=== PATIENT | female | born 1985 | race Caucasian/White ===

== ENCOUNTER 2023-03-18 18:52 | Outpatient (OUT) | payer OTHER, SELFPAY ==
--- NOTE | 2023-03-18 19:20 | US_ITS ---
The [address] [address] Patient Name: RAPHAEL GAMA MRN: [id number] date: 1985 Sex: F Assigned Patient Location: US Current Patient Location: [place] Accession/Order Number: [id number] Exam Date: 03/18/2023 19:21 Report Date: 03/18/2023 22:48 At the request of: BEVERLY SAHA Procedure: US pelvis transvaginal EXAM: US pelvis transvaginal HISTORY: MENORRHAGIA WITH IRREGULAR CYCLE N92.1 COMPARISON: None. TECHNIQUE: Pelvic ultrasound performed using standard technique including Doppler interrogation FINDINGS: Uterus measures 7.8 x 3.2 x 3.3 cm. 6 mm endometrium. Both ovaries are normal in size and echotexture and vascularity. 1.7 cm simple ovarian cyst or dominant follicle on the left. US/US pelvis transvaginal IMPRESSION: Physiologic appearance of the pelvis Electronically authenticated by: GILL SERNA Date: 03/18/2023 22:48
== END 2023-03-18 18:53 | disposition home or self-care (01) ==
PROVIDERS: Visit Provider Obstetrics & Gynecology
DX: N92.1 Excessive and frequent menstruation with irregular cycle (principal)
CPT/HCPCS: 76830

== ENCOUNTER 2023-03-19 11:05 | Outpatient (OUT) | payer OTHER, SELFPAY ==
[2023-03-19 11:26] LABS: Eosinophils Absolute Auto 0.1 10^3/uL (0.0-0.7); Eosinophils Percent Auto 2.3 % (0.9-7.0); Hematocrit 37.2 % (36.0-48.0); Hemoglobin 12.2 g/dL (12.0-16.0); Lymphocytes Absolute Auto 1.7 10^3/uL (1.2-3.8); Lymphocytes Percent Auto 41.8 % (20.5-60.0); Mean Corpuscular HGB Conc 32.8 g/dL (29.9-35.2); Mean Corpuscular Hemoglobin 31.9 pg (26.7-34.0); Mean Corpuscular Volume 97.1 fL (81.0-99.0); Mean Platelet Volume 9.4 fL (9.5-13.5); Monocytes Absolute Auto 0.3 10^3/uL (0.3-0.8); Monocytes Percent Auto 7.1 % (1.7-12.0); Neutrophils Absolute Auto 1.9 10^3/uL (1.4-6.5); Neutrophils Percent Auto 47.8 % (43.0-75.0); Platelet Count 187 10^3/uL (150-450); Red Blood Count 3.83 10^6/uL (4.20-5.40); Red Cell Distribution Width 11.9 % (11.0-15.0)
[2023-03-19 11:58] LABS: Estimated Average Glucose 91 mg/dL; Glycohemoglobin A1C 4.8 % (4.5-6.2)
[2023-03-19 12:22] LABS: Free T4 1.02 ng/dL (0.76-1.46)
[2023-03-20 04:07] LABS: FSH 4.8 mIU/mL (.); Luteinizing Hormone(LH) 6.9 mIU/mL (.)
[2023-03-22 13:07] LABS: Anti-Mullerian Hormone (AMH) 0.178 ng/mL (.)
== END 2023-03-19 11:06 | disposition home or self-care (01) ==
LOC: LAB 11:06
PROVIDERS: PCP Family Medicine; Visit Provider Obstetrics & Gynecology
DX: N92.1 Excessive and frequent menstruation with irregular cycle (principal)
CPT/HCPCS: 36415; 82397; 82627; 83001; 83002; 83036; 84439; 84443; 85025

== ENCOUNTER 2023-04-21 20:08 | Outpatient (REF) | payer OTHER, SELFPAY ==
[2023-04-25 12:09] LABS: Age Gdln ACOG Testing Note (.); HPV Aptima Negative (Negative); IGP, Aptima HPV, rfx 16/18,45 Note (.)
== END 2023-04-21 20:09 | disposition home or self-care (01) ==
LOC: LAB 20:08
PROVIDERS: PCP Family Medicine; Visit Provider Obstetrics & Gynecology
DX: Z01.419 Encounter for gynecological examination (general) (routine) without abnormal findings (principal)
CPT/HCPCS: 87624; G0145

== ENCOUNTER 2023-10-05 15:54 | Outpatient (OUT) | payer OTHER, SELFPAY ==
--- OUTSIDE RECORDS SUMMARY | 2023-10-05 16:35 | XMS_ITS | CCD ---
Author Organization [facility] Care Team Providers Care Er Manager Name Role Phone DOREEN, DR HOFFMAN Attending Unavailable DARWIN, DR JEN Ramirez Primary Care Unavailable DOREEN, DR HOFFMAN Admitting Unavailable DOREEN, DR HOFFMAN Consulting Unavailable MARIA A, DR PAUL Admitting Unavailable MARIA A, DR PAUL Consulting Unavailable MARIA A, DR PAUL Attending Unavailable DARWIN, DR JEN Ramirez Primary Care Unavailable Problems Problem Classification Problem Date Documented Date Episodic/Chronic Immunizations and screening for infectious disease (1 source) Encounter for screening for human papillomavirus (HPV); Translations: [ENC SCREENING HUMAN PAPILLOMAVIRUS] Onset: 03-08-2022 Episodic Other screening for suspected conditions (not mental disorders or infectious disease) (4 sources) Encounter for screening for malignant neoplasm of cervix; Translations: [ENC SCREENING MALIG NEOPLASM CERV] Onset: 03-03-2022 Episodic Results Test Name Value Interpretation Reference Range Facil ity PAP ACOG PANEL 2: 30 to 65on 03-11-2022 . . Normal [facility] Comment on above: Result Comment: Perf ormed at: WB Performed By: #### [id number] #### [facility] [address] [address] [address] Danni Jacobs Age Gdln ACOG Testing 30-65 Normal [facility] Comment on above: Performed By: #### [id number] #### [facility] [address] [address] [address] Danni Jacobs DIAGNOSIS: Comment Normal [facility] Comment on above: Result Comment: NEGA TIVE FOR INTRAEPITHELIAL LESION OR MALIGNANCY. THIS SPECIMEN WAS RESCREENED PART OF OUR HOSIERY OPERATOR PROGRAM. Performed at: WB Performed By: #### [id number] #### [facility] [address] [address] [address] Danni Jacobs HPV Aptima Negative Normal Negative [facility] Comment on above: Result Comment: This nucleic acid amplification test detects fourteen high-risk HPV types (16,18,31,33,35,39,45,51,52,56,58,59,66,68) without differentiation. Performed at: =G Performed By: #### [id number] #### [facility] [address] [place] [address] Dr. Danni Jacobs Methodology: Comment Normal [facility] Comment on above: Result Comment: This liquid based ThinPrep(R) pap test was screened with the use of an image guided system. Performed at: WB Performed By: #### [id number] #### [facility] [address] [place] [address] Dr. Danni Jacobs Note: Comment Normal [facility] Comment on above: Result Comment: The Pap smear is a screening test designed to aid in the detection of premalignant and malignant conditions of the uterine cervix. It is not a diagnostic procedure and should not be used as the sole means of detecting cervical cancer. Both false-positive and false-negative reports do occur. . Performed at: WB Performed By: #### [id number] #### [facility] [address] [place] [address] Dr. Danni Jacobs Performed by: Comment Normal [facility] Comment on above: Result Comment: Rocky Hull, Dimmer Board Operator (ASCP) Performed at: WB Performed By: #### [id number] #### [facility] [address] [place] [address] Dr. Danni Jacobs QC reviewed by: Comment Normal [facility] Comment on above: Result Comment: Betzaida Ge, Supervisory Dimmer Board Operator (ASCP) Performed at: WB Performed By: #### 4 [id number] #### [facility] [address] [place] [address] Dr. Danni Jacobs Specimen adequacy: Comment Normal [facility] Comment on above: Result Comment: Sati sfactory for evaluation. Endocervical and/or squamous metaplastic cells (endocervical component) are present. Performed at: WB Performed By: #### 4 [id number] #### [facility] [address] [place] [address] Dr. Danni Jacobs GLUCOSE BLOODon 04-22-2021 Glucose [Mass/Vol] 99 mg/dL Normal 74-106 [facility] Comment on above: Performed By: #### G YOSEPH, LIPID #### [facility] [address] [address] [address] Danni Jacobs LIPID PROFILEon 04-22-2021 CHOL-HDL RATIO NORM SEE BELOW Normal [facility] Comment on above: Result Comment: 3.3 - 4.4 LOW RISK 4.4 - 7.1 AVERAGE RISK 7.1 - 11.0 MODERATE RISK >11.0 HIGH RISK Performed By: #### G YOSEPH, LIPID #### [facility] [address] [address] [address] Danni Jacobs Cholesterol [Mass/Vol] 157 mg/dL Normal <=200 [facility] Comment on above: Performed By: #### G YOSEPH, LIPID #### [facility] [address] [address] [address] Danni Jacobs Cholesterol in HDL [Mass/Vol] 74 mg/dL Normal [facility] Comment on above: Performed By: #### G YOSEPH, LIPID #### [facility] [address] [address] [address] Danni Jacobs Cholesterol in LDL [Mass/Vol] 71.2 mg/dL Normal [facility] Comment on above: Performed By: #### G YOSEPH, LIPID #### [facility] [address] [address] [address] Danni Jacobs Cholesterol.total/C holesterol in HDL [Mass ratio] 2.1 {ratio} Normal [facility] Comment on above: Performed By: #### G YOSEPH, LIPID #### [facility] [address] [address] [address] Danni Jacobs HDL NORMAL > or = 60 mg/dl - LO W CARDIOVASCULAR RISK <40 mg/dl - HIGH CARDIOVASCULAR RISK Normal [facility] Comment on above: Performed By: #### G YOSEPH, LIPID #### [facility] [address] [address] [address] Danni Jacobs LDL CALC NORMAL SEE BELOW Normal [facility] Comment on above: Result Comment: <100 mg/dl OPTIMAL 100 - 129 mg/dl NEAR OR ABOVE OPTIMAL 130 - 159 mg/dl BORDERLINE HIGH 160 - 189 mg/dl HIGH >190 mg/dl VERY HIGH Performed By: #### G YOSEPH, LIPID #### [facility] [address] [address] [address] Danni Jacobs Triglyceride [Mass/Vol] 59 mg/dL Normal <=150 [facility] Comment on above: Performed By: #### G YOSEPH, LIPID #### [facility] [address] [place], [place] [address] Dr. Danni Jacobs VLDL CALC 11.8 mg/dL Normal [facility] Comment on above: Performed By: #### G YOSEPH, LIPID #### [facility] [address] [address] [address] Danni Jacobs Encounters Encounter Date Encounter Type Care Provider Facility Start: 03-03-2022 End: 03-03-[address] BEVERLY SAHA Facility:[facility] Start: 04-28-2021 Encounter for genera l adult medical examination without abnormal findings DR DALTON LOGAN [facility] Start: 04-22-2021 End: 04-23-[address] DALTON LOGAN Facility:[facility] Start: 04-22-2021 End: 04-23-2021 Encounter for general adult medical examination without abnormal findings DR DALTON LOGAN Facility:[facility] Payers Date Payer Category Payer Unknown [id number] 1985 Unknown [id number] 1957 Unknown [id number] Summary Purpose Family History No Family History Records Found Advance Directives No Advanced Directives Records Found Additional Source Comments INFORMATION SOURCE (unrecogn ized section and content) DATE CREATED AUTHOR 03/22/2022 [facility] FOR RECORDS PERTAINING TO PATIENTS WHO ARE OR HAVE BEEN ENROLLED IN A CHEMICAL DEPENDENCY/SUBSTANCEABUSE PROGRAM, SOME INFORMATION MAY BE OMITTED. This clinical summary was aggregated from multiple sources. Caution should be exercised in using it in the provision of clinical care. This summary normalizes information from multiple sources, and as a consequence, information in this document may materially change the coding, format and clinical context of patient data. In addition, data may be omitted in some cases. CLINICAL DECISIONS SHOULD BE BASED ON THE PRIMARY CLINICAL RECORDS. [facility]. provides no warranty or guarantee of the accuracy or completeness of information in this document.
[2023-10-05 17:15] LABS: HCG Quantitative 25633 mIU/mL
== END 2023-10-05 15:55 | disposition home or self-care (01) ==
LOC: LAB 15:54
PROVIDERS: PCP Family Medicine; Visit Provider Obstetrics & Gynecology
DX: O46.90 Antepartum hemorrhage, unspecified, unspecified trimester (principal)
CPT/HCPCS: 36415; 84702

== ENCOUNTER 2023-10-07 16:06 | Outpatient (OUT) | payer OTHER, SELFPAY ==
[2023-10-07 17:00] LABS: HCG Quantitative 35422 mIU/mL
== END 2023-10-07 16:07 | disposition home or self-care (01) ==
LOC: LAB 16:06
PROVIDERS: PCP Family Medicine; Visit Provider Obstetrics & Gynecology
DX: O46.90 Antepartum hemorrhage, unspecified, unspecified trimester (principal); Z3A.00 Weeks of gestation of pregnancy not specified
CPT/HCPCS: 36415; 84702

== ENCOUNTER 2023-10-12 09:56 | Outpatient (OUT) | payer OTHER, SELFPAY ==
--- OUTSIDE RECORDS SUMMARY | 2023-10-12 10:12 | XMS_ITS | CCD ---
Author Organization [facility] Care Team Providers Care Tank Builder Name Role Phone DOREEN, DR HOFFMAN Attending Unavailable DARWIN, DR JEN Ramirez Primary Care Unavailable DOREEN, DR HOFFMAN Admitting Unavailable DOREEN, DR HOFFMAN Consulting Unavailable MARIA A, DR PAUL Admitting Unavailable MARIA A, DR PAUL Consulting Unavailable MARIA A, DR PAUL Attending Unavailable DARWIN, DR JEN aRmirez Primary Care Unavailable Problems Problem Classification Problem [...] 30 to 65on 03-11-2022 . . Normal [facility] Comment on above: Result Comment: Perf ormed at: WB Performed By: #### 4 [id number] #### [facility] [address] [address] [address] Danni Jacobs Age Gdln ACOG Testing 30-65 Normal [facility] Comment on above: Performed By: #### 4 [id number] #### [facility] [address] [address] [address] Danni Jacobs DIAGNOSIS: Comment Normal [facility] Comment on above: Result Comment: NEGA TIVE FOR INTRAEPITHELIAL LESION OR MALIGNANCY. THIS SPECIMEN WAS RESCREENED PART OF OUR HAIR MIXER PROGRAM. Performed at: WB Performed By: #### 4 [id number] #### [facility] [address] [address] [address] Danni Jacobs HPV Aptima Negative Normal Negative [facility] Comment on above: Result Comment: This nucleic acid amplification test detects fourteen high-risk HPV types (16,18,31,33,35,39,45,51,52,56,58,59,66,68) without differentiation. Performed at: =G Performed By: #### 4 [id number] #### [facility] [address] [place] [address] Dr. Danni Jacobs Methodology: Comment Normal [facility] Comment on above: Result Comment: This liquid based ThinPrep(R) pap test was screened with the use of an image guided system. Performed at: WB Performed By: #### 4 [id number] #### [facility] [address] [place] [address] Dr. Danni Jacobs Note: Comment Normal [facility] Comment on above: Result Comment: The Pap smear is a screening test designed to aid in the detection of premalignant and malignant conditions of the uterine cervix. It is not a diagnostic procedure and should not be used as the sole means of detecting cervical cancer. Both false-positive and false-negative reports do occur. . Performed at: WB Performed By: #### 4 [id number] #### [facility] [address] [place] [address] Dr. Danni Jacobs Performed by: Comment Normal [facility] Comment on above: Result Comment: Rocky Hull, Ticket Chopper Assembler (ASCP) Performed at: WB Performed By: #### 4 [id number] #### [facility] [address] [place] [address] Dr. Danni Jacobs QC reviewed by: Comment Normal [facility] Comment on above: Result Comment: Betzaida Ge, Supervisory Ticket Chopper Assembler (ASCP) Performed at: WB Performed By: #### 4 [id number] #### [facility] [address] [place] [address] Dr. Danni Jacobs Specimen adequacy: Comment Normal [facility] Comment on above: Result Comment: Sati sfactory for evaluation. Endocervical and/or squamous metaplastic cells (endocervical component) are present. Performed at: WB Performed By: #### 4 [id number] #### [facility] [address] [place] [address] Dr. Danni Jacobs GLUCOSE BLOODon 04-22-2021 Glucose [Mass/Vol] 99 mg/dL Normal 74-106 [facility] Comment on above: Performed By: #### G YOSEPH, LIPID #### [facility] [address] [address] [address] Danni Jacobs LIPID PROFILEon 04-22-2021 CHOL-HDL RATIO NORM SEE BELOW Normal [facility] Comment on above: Result Comment: 3.3 - 4.4 LOW RISK 4.4 - 7.1 AVERAGE RISK 7.1 - 11.0 MODERATE RISK >11.0 HIGH RISK Performed By: #### G YOSEPH, LIPID #### [facility] [address] [address] [address] Danni Jacobs Cholesterol [Mass/Vol] 157 mg/dL Normal <=200 [facility] Comment on above: Performed By: #### G YOSEPH, LIPID #### [facility] [address] [address] [address] Danni Jacobs Cholesterol in HDL [Mass/Vol] 74 mg/dL Normal [facility] Comment on above: Performed By: #### G YOSEPH, LIPID #### [facility] [address] [address] [address] Danni Jacobs Cholesterol in LDL [Mass/Vol] 71.2 mg/dL Normal [facility] Comment on above: Performed By: #### G YOSEPH, LIPID #### [facility] [address] [address] [address] Danni Jacobs Cholesterol.total/C holesterol in HDL [Mass ratio] 2.1 {ratio} Normal [facility] Comment on above: Performed By: #### G YOSEPH, LIPID #### [facility] [address] [address] [address] Danni Jacobs HDL NORMAL > or = 60 mg/dl - LO W CARDIOVASCULAR RISK <40 mg/dl - HIGH CARDIOVASCULAR RISK Normal [facility] Comment on above: Performed By: #### G YOSEPH, LIPID #### [facility] [address] [address] [address] Danni Jacobs LDL CALC NORMAL SEE BELOW Normal [facility] Comment on above: Result Comment: <100 mg/dl OPTIMAL 100 - 129 mg/dl NEAR OR ABOVE OPTIMAL 130 - 159 mg/dl BORDERLINE HIGH 160 - 189 mg/dl HIGH >190 mg/dl VERY HIGH Performed By: #### G YOSEPH, LIPID #### [facility] [address] [address] [address] Danni Jacobs Triglyceride [Mass/Vol] 59 mg/dL Normal <=150 [facility] Comment on above: Performed By: #### G YOSEPH, LIPID #### [facility] [address] [place], [place] [address] Dr. Danni Jacobs VLDL CALC 11.8 mg/dL Normal [facility] Comment on above: Performed By: #### G YOSEPH, LIPID #### [facility] [address] [address] [address] Danni Jacobs Encounters Encounter Date Encounter Type Care Provider Facility Start: 03-03-2022 End: 03-03-[address] BEVERLY SAHA Facility:[facility] Start: 04-28-2021 Encounter for genera l adult medical examination without abnormal findings DR DALTON LOGAN [facility] Start: 04-22-2021 End: 04-23-[address] DALTON LOGAN Facility:[facility] Start: 04-22-2021 End: 04-23-2021 Encounter for general adult medical examination without abnormal findings DR DALTON LOGAN Facility:[facility] Payers Date Payer Category Payer Unknown [id number] [id number] 1985 Unknown [id number] [id number] [id number] 1957 Unknown [id number] Summary Purpose Family History No Family History Records Found Advance Directives No Advanced Directives Records Found Additional Source Comments INFORMATION SOURCE (unrecogn ized section and content) DATE CREATED AUTHOR 03/22/2022 [facility] FOR RECORDS PERTAINING TO PATIENTS WHO ARE [...] BE BASED ON THE PRIMARY CLINICAL RECORDS. [facility]. provides no warranty or guarantee of the accuracy or completeness of information in this document.
--- NOTE | 2023-10-12 11:33 | US_ITS ---
[address] [address] Patient Name: RAPHAEL GAMA MRN: [id number] date: 1985 Sex: F Assigned Patient Location: [facility] Current Patient Location: [facility] Accession/Order Number: [id number] Exam Date: 10/12/2023 11:33 Report Date: 10/12/2023 12:16 At the request of: BEVERLY SAHA Procedure: US OB transvaginal EXAMINATION: US OB transvaginal HISTORY: BLEEDING IN EARLY COMPARISON: No relevant comparison available. FINDINGS: Transvaginal images The gestational sac is mildly elongated measuring 2.06 cm, 6 weeks 4 days CRL: 7.2 mm, 6 weeks 4 days Round area measuring 8.9 mm is seen. This could represent an enlarged yolk sac, alternatively this could represent a nonviable twin intrauterine gestation. Short interval follow-up is recommended Heart rate: 118 beats minute Cervix: Closed, 4.3 cm The uterus is normal in appearance. The ovaries are normal in appearance Clinical age: 8 weeks 3 days Clinical ADRIANA: 05/20/2024 Ultrasound age: 6 weeks 4 days Ultrasound ADRIANA: 06/02/2024 US/US OB transvaginal IMPRESSION: Viable intrauterine gestation measuring 6 weeks 4 days Indeterminate abnormality possibly representing a dilated yolk sac versus a nonviable twin intrauterine gestation. Short interval follow-up recommended Electronically authenticated by: TIKA KIMBALL Date: 10/12/2023 12:16
== END 2023-10-12 09:57 | disposition home or self-care (01) ==
LOC: NOMS 09:57
PROVIDERS: PCP Family Medicine; Visit Provider Obstetrics & Gynecology
DX: O20.9 Hemorrhage in early pregnancy, unspecified (principal)
CPT/HCPCS: 76817

== ENCOUNTER 2023-10-12 15:02 | Outpatient (OUT) | payer OTHER, SELFPAY ==
[2023-10-12 16:11] LABS: HCG Quantitative 43222 mIU/mL
== END 2023-10-12 15:03 | disposition home or self-care (01) ==
LOC: LAB 15:02
PROVIDERS: PCP Family Medicine; Visit Provider Obstetrics & Gynecology
DX: O20.9 Hemorrhage in early pregnancy, unspecified (principal)
CPT/HCPCS: 36415; 76817; 84702

== ENCOUNTER 2023-10-22 13:53 | Outpatient (OUT) | payer OTHER, SELFPAY ==
--- NOTE | 2023-10-22 13:55 | US_ITS ---
[address] [address] Patient Name: RAPHAEL GAMA MRN: [id number] date: 1985 Sex: F Assigned Patient Location: [facility] Current Patient Location: [facility] Accession/Order Number: [id number] Exam Date: 10/22/2023 13:56 Report Date: 10/22/2023 14:59 At the request of: BEVERLY SAHA Procedure: US OB transvaginal EXAMINATION: US OB transvaginal HISTORY: MISSED MENSES COMPARISON: 10/12/2023 FINDINGS: Transvaginal images [place] intrauterine gestation Gestational sac: 2.79 cm, 7 weeks 4 days [place]-rump length: 7.6 mm, 6 weeks 5 days Heart rate: Not observed Cervix: Dilation of the endocervical canal 8 mm containing debris. The cervix measures 3.6 cm in length The uterus is normal, anteverted, anteflexed The ovaries are normal. Clinical age: 9 weeks 6 days Clinical ADRIANA: 05/20/2024 Ultrasound age: 6 weeks 5 days Ultrasound ADRIANA: 06/11/2024 US/US OB transvaginal IMPRESSION: No interval growth of the crown-rump length. No cardiac activity. Dilated debris-filled endocervical canal These findings are consistent with miscarriage in progress Electronically authenticated by: TIKA KIMBALL Date: 10/22/2023 14:59
== END 2023-10-22 13:54 | disposition home or self-care (01) ==
LOC: NOMS 13:53
PROVIDERS: PCP Family Medicine; Visit Provider Obstetrics & Gynecology
DX: O20.0 Threatened abortion (principal); Z3A.01 Less than 8 weeks gestation of pregnancy
CPT/HCPCS: 76817

== ENCOUNTER 2023-10-23 09:43 | Day surgery (SDC) | payer OTHER, SELFPAY ==
[2023-10-23] VITALS (7 sets, daily range): BP systolic 103–118; BP diastolic 58–73; PULSE 59–82; TEMP 36.6–36.8; O2SAT 96–100; BMI 20.1
--- OUTSIDE RECORDS SUMMARY | 2023-10-23 09:59 | XMS_ITS | CCD ---
Author Organization [facility] Care Team Providers Care Gravure Press Operator Name Role Phone DOREEN, DR HOFFMAN Attending [...] 30 to 67on 03-11-2022 . . Normal [facility] Comment on above: Result Comment: Perf ormed at: WB Performed By: #### [id number] #### [facility] [address] [address] [address] Danni Jacobs Age Gdln ACOG Testing 30-65 Normal [facility] Comment on above: Performed By: #### [id number] #### [facility] [address] [address] [address] Danni Jacobs DIAGNOSIS: Comment Normal [facility] Comment on above: Result Comment: NEGA TIVE FOR INTRAEPITHELIAL LESION OR MALIGNANCY. THIS SPECIMEN WAS RESCREENED PART OF OUR INTERCHANGE AGENT PROGRAM. Performed at: WB Performed By: #### [id number] #### [facility] [address] [address] [address] Danni Jacobs HPV Aptima Negative Normal Negative [facility] Comment on above: Result Comment: This nucleic acid amplification test detects fourteen high-risk HPV types (16,18,31,33,35,39,45,51,52,56,58,59,66,68) without differentiation. Performed at: =G Performed By: #### [id number] #### [facility] [address] [place] [address] Dr. Danni Jacobs Methodology: Comment Normal [facility] Comment on above: Result Comment: This liquid based ThinPrep(R) pap test was screened with the use of an image guided system. Performed at: WB Performed By: #### [id number] #### [facility] [address] [place] [address] Dr. Danni Jacobs Note: Comment Normal [facility] Comment on above: Result Comment: The Pap smear is a screening test designed to aid in the detection of premalignant and malignant conditions of the uterine cervix. It is not a diagnostic procedure and should not be used as the sole means of detecting cervical cancer. Both false-positive and false-negative reports do occur. . Performed at: WB Performed By: #### [id number] #### [facility] [address] [place] [address] Dr. Danni Jacobs Performed by: Comment Normal [facility] Comment on above: Result Comment: Rocky Hull, Photograph Tinter (ASCP) Performed at: WB Performed By: #### [id number] #### [facility] [address] [place] [address] Dr. Danni Jacobs QC reviewed by: Comment Normal [facility] Comment on above: Result Comment: Betzaida Ge, Supervisory Photograph Tinter (ASCP) Performed at: WB Performed By: #### [id number] #### [facility] [address] [place] [address] Dr. Danni Jacobs Specimen adequacy: Comment Normal [facility] Comment on above: Result Comment: Sati sfactory for evaluation. Endocervical and/or squamous metaplastic cells (endocervical component) are present. Performed at: WB Performed By: #### [id number] #### [facility] [address] [place] [address] Dr. Danni Jacobs GLUCOSE BLOODon 04-22-2021 Glucose [Mass/Vol] 99 mg/dL Normal 74-106 [facility] Comment on above: Performed By: #### G YOSEPH, LIPID #### [facility] [address] [address] [address] Danni Jacobs LIPID PROFILEon 04-22-2021 CHOL-HDL RATIO NORM SEE BELOW Normal [facility] Comment on above: Result Comment: 3.3 - 4.4 LOW RISK 4.4 - 7.1 AVERAGE RISK 7.1 - 11.0 MODERATE RISK >11.0 HIGH RISK Performed By: #### G YOSEPH, LIPID #### [facility] [address] [address] [address] Danni Jacobs Cholesterol [Mass/Vol] 157 mg/dL Normal <=200 [facility] Comment on above: Performed By: #### G YOSEPH, LIPID #### [facility] [address] [address] [address] Danni Jacobs Cholesterol in HDL [Mass/Vol] 74 mg/dL Normal [facility] Comment on above: Performed By: #### G YOSEPH, LIPID #### [facility] [address] [address] [address] Danni Jacobs Cholesterol in LDL [Mass/Vol] 71.2 mg/dL Normal [facility] Comment on above: Performed By: #### G YOSEPH, LIPID #### [facility] [address] [address] [address] Danni Jacobs Cholesterol.total/C holesterol in HDL [Mass ratio] 2.1 {ratio} Normal [facility] Comment on above: Performed By: #### G YOSEHP, LIPID #### [facility] [address] [address] [address] Danni Jacobs HDL NORMAL > or = 60 mg/dl - LO W CARDIOVASCULAR RISK <40 mg/dl - HIGH CARDIOVASCULAR RISK Normal [facility] Comment on above: Performed By: #### G YOSEPH, LIPID #### [facility] [address] [address] [address] Danni Jacobs LDL CALC NORMAL SEE BELOW Normal [facility] Comment on above: Result Comment: <100 mg/dl OPTIMAL 100 - 129 mg/dl NEAR OR ABOVE OPTIMAL 130 - 159 mg/dl BORDERLINE HIGH 160 - 189 mg/dl HIGH >190 mg/dl VERY HIGH Performed By: #### G YOSEPH, LIPID #### [facility] [address] [address] [address] Danni Jacobs Triglyceride [Mass/Vol] 59 mg/dL Normal <=150 [facility] Comment on above: Performed By: #### G YOSEPH, LIPID #### [facility] [address] [place], [place] [address] Dr. Danni Jacobs VLDL CALC 11.8 mg/dL Normal [facility] Comment on above: Performed By: #### G YOSEPH, LIPID #### [facility] [address] [address] [address] Danni Jacobs Encounters Encounter Date Encounter Type Care Provider Facility Start: 03-03-2022 End: 03-03-[address] BEVERLY SAHA Facility:[facility] Start: 04-28-2021 Encounter for genera l adult medical examination without abnormal findings DR DALTON LOGAN [facility] Start: 04-22-2021 End: 04-23-[address] DALTON LOGAN Facility:[facility] Start: 04-22-2021 End: 04-23-2021 Encounter for general adult medical examination without abnormal findings DR DALTON LOGAN Facility:[facility] Payers Date Payer Category Payer Unknown [id number] 1987 Unknown [id number] 1957 Unknown [id number] Summary Purpose Family History No Family History Records Found Advance Directives No Advanced Directives Records Found Additional Source Comments INFORMATION SOURCE (unrecogn ized section and content) DATE CREATED AUTHOR 03/22/2022 [facility] FOR RECORDS PERTAINING TO PATIENTS WHO [...] BE BASED ON THE PRIMARY CLINICAL RECORDS. [facility]. provides no warranty or guarantee of the accuracy or completeness of information in this document.
[2023-10-23 10:03] LABS: Basophils Percent Auto 0.8 % (0.2-2.0); Eosinophils Absolute Auto 0.1 10^3/uL (0.0-0.7); Eosinophils Percent Auto 1.4 % (0.9-7.0); Hemoglobin 11.8 g/dL (12.0-16.0); Immature Granulocytes Abs Auto 0.01 10^3/uL (0.00-0.03); Immature Granulocytes Pct Auto 0.2 % (0.0-0.5); Lymphocytes Absolute Auto 1.7 10^3/uL (1.2-3.8); Lymphocytes Percent Auto 32.8 % (20.5-60.0); Mean Corpuscular HGB Conc 32.8 g/dL (29.9-35.2); Mean Corpuscular Hemoglobin 31.1 pg (26.7-34.0); Monocytes Absolute Auto 0.3 10^3/uL (0.3-0.8); Monocytes Percent Auto 5.5 % (1.7-12.0); Neutrophils Percent Auto 59.3 % (43.0-75.0); Platelet Count 182 10^3/uL (150-450); Red Blood Count 3.79 10^6/uL (4.20-5.40); Red Cell Distribution Width 11.9 % (11.0-15.0); White Blood Count 5.1 10^3/uL (4.0-11.0)
[2023-10-23] MEDS: LACTATED RINGER'S SOLUTION 1,000 ML 50 ML IV (10:27)
--- NOTE | 2023-10-23 11:54 | P.ON_ITS ---
Brief Operative Note Date of procedure: 10/23/23 Pre-op diagnosis general: missed Post-op diagnosis: same as pre-op Procedure: NAME OF PROCEDURE: [D&C suction ] PROCEDURE: The patient was taken back to the OR where she was given general anesthesia without difficulty. She was then placed in dorsal lithotomy position, prepped and draped in the normal sterile fashion. A weighted speculum was placed in the patient's vagina and the anterior lip of the cervix was identified and grasped with a single-tooth tenaculum. The patient was then gently dilated using Hegar dilators after we had sounded roughly to 10 cm. The suction curette was then tested. The suction curette was then placed in the patient's uterus and products of conception were removed using an 9-Bel[place]ian suction curette. ?Excellent hemostasis was noted. The patient tolerated the procedure well. Sponge, lap, and needle counts were correct x 2. All instruments were then removed from the patient's vagina. The patient was taken to the Recovery Room in stable condition . ?? Anesthesia: GETA Surgeon: Scooby Vega Estimated blood loss (mL): 10 Pathology: other (poc) Condition: stable Disposition: PACU Urinary Catheter Management Urinary Catheter Management Urethral: Cath placed during this visit: no
[2023-10-23] MEDS: RHO(D) IMMUNE GLOBULIN 1,500 UNIT SYRINGE 1500 UNIT IM (12:27)
[2023-10-23] MEDS: LACTATED RINGER'S SOLUTION 1,000 ML 150 ML IV (13:07)
--- NOTE | 2023-10-23 14:24 | PC.NURSE ---
1355: pt voids without difficulty,ambulates with minimal assistance to and from bathroom.
== END 2023-10-23 14:05 | disposition home or self-care (01) ==
PROVIDERS: PCP Family Medicine; Visit Provider Obstetrics & Gynecology
PROC: (CPT 1965; principal; 2023-10-23 11:10)
DX: O02.1 Missed abortion (principal)
CPT/HCPCS: 59820; 36415; 85025; 86850; 86900; 86901; 88305; J1094; J2704; J2790

== ENCOUNTER 2023-11-09 11:41 | Outpatient (OUT) | payer OTHER, SELFPAY ==
[2023-11-09 12:55] LABS: HCG Quantitative 27 mIU/mL
== END 2023-11-09 11:42 | disposition home or self-care (01) ==
LOC: LAB 11:42
PROVIDERS: PCP Family Medicine; Visit Provider Physician Assistant
DX: Z98.890 Other specified postprocedural states (principal)
CPT/HCPCS: 36415; 84702

== ENCOUNTER 2023-11-17 09:44 | Outpatient (RCR) | payer OTHER, SELFPAY ==
[2023-11-17 10:54] LABS: HCG Quantitative 6 mIU/mL
== END 2023-11-20 08:47 | disposition home or self-care (01) ==
LOC: LAB 09:44
PROVIDERS: PCP Family Medicine; Visit Provider Physician Assistant
DX: Z98.890 Other specified postprocedural states (principal)
CPT/HCPCS: 36415; 84702

== ENCOUNTER 2023-11-23 16:21 | Outpatient (OUT) | payer OTHER, SELFPAY ==
--- OUTSIDE RECORDS SUMMARY | 2023-11-23 17:01 | XMS_ITS | CCD ---
Author Organization [facility] Inform ion 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 Name Role Phone DOREEN, DR HOFFMAN Attending Unavailable DARWIN, DR JOANN Ramirez Primary Care Unavailable DOREEN, DR HOFFMAN Admitting Unavailable DOREEN, DR HOFFMAN Consulting Unavailable GRAY, DR PAUL Admitting Unavailable GARY, DR PAUL Consulting Unavailable GARY, DR PAUL Attending Unavailable DARWIN, DR JOANN Ramirez Primary Care Unavailable Beverly Vega Attending Unavailable Beverly Vega Admitting Unavailable Beverly Vega Attending Provider JASBIR HUNTER Attending Unavailable Allergies Allergy Classification Reported Allergen(s) Allergy Type Date of Onset Reaction(s) Facility (1 source) Amoxicillin Drug Allergy 06-22-2022 [facility] (1 source) 12 Hour Decongestant Allergy to substance 06-22-2022 [facility] Problems Problem Classification Problem Date Documented Date [...] Name Value Interpretation Reference Range Facil ity Basophils Auto (Bld) [#/Vol] on 10-23-2023 Basophils (Bld) [#/Vol] 0.0 10 3/uL 0.0-0.1 [facility] Basophils/100 WBC Auto (Bld) on 10-23-2023 Basophils/100 WBC (Bld) 0.8 % 0.2-2.0 [facility] Eosinophils/100 WBC Auto (Bl d)on 10-23-2023 Eosinophils/100 WBC (Bld) 1.4 % 0.9-7.0 [facility] Erythrocyte distribution wid th Auto (RBC) [Ratio]on 10-23-2023 Erythrocyte distribution width (RBC) [Ratio] 11.9 % 11.0-15.0 [facility] Hematocrit Auto (Bld) [Volum e fraction]on 10-23-2023 Hematocrit (Bld) [Volume fraction] 36.0 % 36.0-48.0 [facility] Hemoglobin [Mass/volume] in Bloodon 10-23-2023 Hemoglobin (Bld) [Mass/Vol] 11.8 g/dL 12.0-16.0 [facility] Krzysztof 10-23-2023 L Specimen: [id number] Received: 10/26/23 Status: MAIA Newell Num: [id number] Spec Type: Surgical Subm Dr: Beverly Vega Tissues: A Products of Conception - Spontaneous or Missed (POC) Procedures: HE/3, Gross/Micro L4 Age/ Patient Sex Location Account Attending Physician Tiffanie Elizabeth 37/F [facility] [id number] Beverly Vega SPEC NUM: [id number] RECD: 10/26/23 STATUS: MAIA NEWELL NUM: [id number] JANIE: 10/23/[address]: Beverly Vega ENTERED: 10/26/23 [facility] DR: Héctor,Lab SPEC TYPE: Surgical DEPT: [facility] ORDERED: HE/3, Gross/Micro L4 ORDERED: HE/3, Gross/Micro L4 Pathological Diagnosis Products of conception: Immature chorionic villi and decidua, consistent with products of conception. Gross Description Received in formalin, labeled with the patient's name, date of and products of conception are multiple membranous palmer tissue fragments, blood clot and mucinous material within a cloth neck collection device measuring in aggregate 5.1 x 4.8 x 1.7 cm. No parts are present. There is a 1.0 x 0.8 x 0.3 cm possible area of villous tissue identified. Cnc Manager sections to include the possible villous tissue are submitted in A1?A3. Clinical history: Missed CPT Codes 49083 ---- ---- Specimen: [id number] Received: 10/26/23 Status: RINAShayy Newell Num: [id number] Spec Type: Surgical Subm Dr: Beverly Vega Tissues: A Products of Conception - Spontaneous or Missed (POC) Procedures: Zander SINGLETON/Dannie L4 ---- Patient: Tiffanie Elizabeth [id number] (Continued) ---- Signed (signature on file) Dante Palacios MD 10/27/23 1066 Normal [facility] - Hematology and Cell countson 10-23-2023 Immature granulocytes/100 WBC (Bld) 0.2 % 0.0-0.5 [facility] Leukocytes [#/volume] correc leroy for nucleated erythrocytes in Blood by Automated counon 10-23-2023 WBC corrected for nucl RBC Auto (Bld) [#/Vol] 5.1 10 3/uL 4.0-11.0 [facility] Lymphocytes Auto (Bld) [#/Vo l]on 10-23-2023 Lymphocytes (Bld) [#/Vol] 1.7 10 3/uL 1.2-3.8 [facility] Lymphocytes/100 WBC Auto (Bl d)on 10-23-2023 Lymphocytes/100 WBC (Bld) 32.8 % 20.5-60.0 [facility] MCH Auto (RBC) [Entitic mass ]on 10-23-2023 MCH (RBC) [Entitic mass] 31.1 pg 26.7-34.0 [facility] MCHC Auto (RBC) [Mass/Vol]on 10-23-2023 MCHC (RBC) [Mass/Vol] 32.8 g/dL 29.9-35.2 [facility] MCV Auto (RBC) [Entitic vol] on 10-23-2023 MCV (RBC) [Entitic vol] 95.0 fL 81.0-99.0 [facility] Monocytes Auto (Bld) [#/Vol] on 10-23-2023 Monocytes (Bld) [#/Vol] 0.3 10 3/uL 0.3-0.8 [facility] Monocytes/100 WBC Auto (Bld) on 10-23-2023 Monocytes/100 WBC (Bld) 5.5 % 1.7-12.0 [facility] Neutrophils Auto (Bld) [#/Vo l]on 10-23-2023 Neutrophils (Bld) [#/Vol] 3.0 10 3/uL 1.4-6.5 [facility] Neutrophils/100 WBC Auto (Bl d)on 10-23-2023 Neutrophils/100 WBC (Bld) 59.3 % 43.0-75.0 [facility] No Panel Informationon 10-22 Eosinophils # (Auto) 0.1 10 3/uL 0.0-0.7 [facility] Immature Granulocyte # (Auto) 0.01 10 3/uL 0.00-0.03 [facility] Platelet mean volume Auto (B ld) [Entitic vol]on 10-23-2023 Platelet mean volume (Bld) [Entitic vol] 9.0 fL 9.5-13.5 [facility] Platelets Auto (Bld) [#/Vol] on 10-23-2023 Platelets (Bld) [#/Vol] 182 10 3/uL 150-450 [facility] RBC Auto (Bld) [#/Vol]on RBC (Bld) [#/Vol] 3.79 10 6/uL 4.20-5.40 [facility] No Panel Informationon 10-11 Human Chorionic Gonadotropin, Quant 91875 mIU/mL [facility] Comment on above: 5-50 0.2-1 RXDO96-84 0 1-2 ZSWDO077-5,000 2-3 WPFMU723-16,000 3-4 WEEKS1,000-50,000 4-5 WEEKS10,000-100,000 5-6 WEEKS15,000-200,000 6-8 WEEKS10,000-100,000 2-3 MONTHS No Panel Informationon 10-06 Human Chorionic Gonadotropin, Quant 45690 mIU/mL [facility] Comment on above: 5-50 0.2-1 SMNX50-65 0 1-2 TPFBM273-6,000 2-3 HEUCP875-41,000 3-4 WEEKS1,000-50,000 4-5 WEEKS10,000-100,000 5-6 WEEKS15,000-200,000 6-8 WEEKS10,000-100,000 2-3 MONTHS No Panel Informationon 10-04 Human Chorionic Gonadotropin, Quant 32082 mIU/mL [facility] Comment on above: 5-50 0.2-1 AHLI40-06 0 1-2 DPUZL340-5,000 2-3 GROTE357-59,000 3-4 WEEKS1,000-50,000 4-5 WEEKS10,000-100,000 5-6 WEEKS15,000-200,000 6-8 WEEKS10,000-100,000 2-3 MONTHS PAP ACOG PANEL 2: 30 to 65on 03-11-2022 . . Normal [facility] Comment on above: Result Comment: Perf ormed at: WB Performed By: #### [id number] #### [facility] [address] [place] [address] Dr. Danni Jacobs Age Gdln ACOG Testing 30-65 Normal [facility] Comment on above: Performed By: #### [id number] #### [facility] [address] [place] [address] Dr. Danni Jacobs DIAGNOSIS: Comment Normal [facility] Comment on above: Result Comment: NEGA TIVE FOR INTRAEPITHELIAL LESION OR MALIGNANCY. THIS SPECIMEN WAS RESCREENED PART OF OUR PROOFER APPRENTICE PROGRAM. Performed at: WB Performed By: #### [id number] #### [facility] [address] [place] [address] Dr. Danni Jacobs HPV Aptima Negative Normal Negative [facility] Comment on above: Result Comment: This nucleic acid amplification test detects fourteen high-risk HPV types (16,18,31,33,35,39,45,51,52,56,58,59,66,68) without differentiation. Performed at: =G Performed By: #### [id number] #### [facility] [address] [place] [address] Dr. Danni Jacobs Methodology: Comment Normal [facility] Comment on above: Result Comment: This liquid based ThinPrep(R) pap test was screened with the use of an image guided system. Performed at: WB Performed By: #### [id number] #### [facility] [address] [place] [address] Dr. Danni Jacobs Note: Comment Normal [facility] Comment on above: Result Comment: The Pap smear is a screening test designed to aid in the detection of premalignant and malignant conditions of the uterine cervix. It is not a diagnostic procedure and should not be used as the sole means of detecting cervical cancer. Both false-positive and false-negative reports do occur. . Performed at: WB Performed By: #### [id number] #### [facility] [address] [place] [address] Dr. Danni Jacobs Performed by: Comment Normal [facility] Comment on above: Result Comment: Rocky Hull, Electric Serviceman (ASCP) Performed at: WB Performed By: #### [id number] #### [facility] [address] [address] [address] Danni Jacobs QC reviewed by: Comment Normal [facility] Comment on above: Result Comment: Betzaida Ge, Supervisory Electric Serviceman (ASCP) Performed at: WB Performed By: #### [id number] #### [facility] [address] [address] [address] Danni Jacobs Specimen adequacy: Comment Normal [facility] Comment on above: Result Comment: Sati sfactory for evaluation. Endocervical and/or squamous metaplastic cells (endocervical component) are present. Performed at: WB Performed By: #### [id number] #### [facility] [address] [address] [address] Danni Jacobs GLUCOSE BLOODon 04-22-2021 Glucose [Mass/Vol] 99 mg/dL Normal 74-106 [facility] Comment on above: Performed By: #### G YOSEPH, LIPID #### [facility] [address] [address] [address] Danni Jacobs LIPID PROFILEon 04-22-2021 CHOL-HDL RATIO NORM SEE BELOW Normal [facility] Comment on above: Result Comment: 3.3 - 4.4 LOW RISK 4.4 - 7.1 AVERAGE RISK 7.1 - 11.0 MODERATE RISK >11.0 HIGH RISK Performed By: #### G YOSEPH, LIPID #### [facility] [address] [address] [address] Danni Jacobs Cholesterol [Mass/Vol] 157 mg/dL Normal <=200 [facility] Comment on above: Performed By: #### G YOSEPH, LIPID #### [facility] [address] [address] [address] Danni Jacobs Cholesterol in HDL [Mass/Vol] 74 mg/dL Normal [facility] Comment on above: Performed By: #### G YOSEPH, LIPID #### [facility] [address] [address] [address] Danni Jacobs Cholesterol in LDL [Mass/Vol] 71.2 mg/dL Normal [facility] Comment on above: Performed By: #### G YOSEPH, LIPID #### [facility] [address] [address] [address] Danni Jacobs Cholesterol.total/C holesterol in HDL [Mass ratio] 2.1 {ratio} Normal [facility] Comment on above: Performed By: #### G YOSEPH, LIPID #### [facility] [address] [address] [address] Danni Jacobs HDL NORMAL > or = 60 mg/dl - LO W CARDIOVASCULAR RISK <40 mg/dl - HIGH CARDIOVASCULAR RISK Normal [facility] Comment on above: Performed By: #### G YOSEPH, LIPID #### [facility] [address] [address] [address] Danni Jacobs LDL CALC NORMAL SEE BELOW Normal [facility] Comment on above: Result Comment: <100 mg/dl OPTIMAL 100 - 129 mg/dl NEAR OR ABOVE OPTIMAL 130 - 159 mg/dl BORDERLINE HIGH 160 - 189 mg/dl HIGH >190 mg/dl VERY HIGH Performed By: #### G YOSEPH, LIPID #### [facility] [address] [address] [address] Danni Jacobs Triglyceride [Mass/Vol] 59 mg/dL Normal <=150 [facility] Comment on above: Performed By: #### G YOSEPH, LIPID #### [facility] [address] [address] [address] Danni Jacobs VLDL CALC 11.8 mg/dL Normal [facility] Comment on above: Performed By: #### G YOSEPH, LIPID #### [facility] [address] [address] [address] Danni Jacobs Encounters Encounter Date Encounter Type Care Provider Facility Start: 11-09-2023 End: 11-09-2023 ambulatory JASBIR HUNTER Not Available Start: 10-23-2023 End: 10-23-2023 ambulatory Beverly Vega Facility:[facility] Start: 10-23-2023 End: 10-23-2023 ambulatory Beverly Gary Work Phone: [facility] Work Phone: Start: 10-23-2023 End: 10-23-2023 Departed Referred Beverly Gary Work Phone: [facility] Start: 10-23-2023 Non-patient / Non-visit Beverly Gary Work Phone: [facility] Work Phone: Start: 10-12-2023 Non-patient / Non-visit Beverly Gary Work Phone: [facility] Work Phone: Start: 10-07-2023 Non-patient / Non-visit Beverly Gary Work Phone: [facility] Work Phone: Start: 10-05-2023 Non-patient / Non-visit Beverly Gary Work Phone: [facility] Work Phone: Start: 03-03-2022 End: 03-03-[address] BEVERLY VEGA Facility:[facility] Start: 04-28-2021 Encounter for genera l adult medical examination without abnormal findings DR DALTON LOGAN [facility] Start: 04-22-2021 End: 04-23-[address] DALTON LOGAN Facility:[facility] Start: 04-22-2021 End: 04-23-2021 Encounter for general adult medical examination without abnormal findings DR DALTON LOGAN Facility:[facility] Payers Date Payer Category Payer Unknown [id number] 1987 Unknown [id number] 1987 Unknown [id number] 1959 Unknown [id number] Social History Date Type Detail Facility Tobacco smoking stat us NHIS Unknown if ever smoked [facility] Work Phone: Start: 1985 Sex Assigned At Female F [facility] Evaluation note Note Date & Type Note Facility Evaluation note No assessment information availa ble [facility] Work Phone: Summary Purpose Family History No Family History Records FoundNo Family History Records FoundNo Family History Records Found Advance Directives No Advanced Directives Records FoundNo Advanced Directives Records FoundNo Advanced Directives Records Found Additional Source Comments INFORMATION SOURCE (unrecogn ized section and content) DATE CREATED AUTHOR 03/22/2022 [facility] DATE CREATED AUTHOR AUTHOR'S ORGANIZ ATION 10/28/2023 [facility] DATE CREATED AUTHOR AUTHOR'S ORGANIZ ATION 11/11/2023 [facility] EPIC Care Teams (unrecognized sec tion and content) Team Status: Active Member Role Status Dates Provider Conversion Primary Care Provider Active Start: October 05, 2023 Joann Dumont MD Attending Provider Active St art: October 05, 2023 Team Status: Active Member Role Status Dates Provider Conversion Primary Care Provider Active Start: October 07, 2023 Joann Dumont MD Attending Provider Active St art: October 07, 2023 Team Status: Active Member Role Status Dates Provider Conversion Primary Care Provider Active Start: October 12, 2023 Joann Dumont MD Attending Provider Active St art: October 12, 2023 Team Status: Active Member Role Status Dates Provider Conversion Primary Care Provider Active Start: October 23, 2023 Beverly Vega Attending Provider Active Start: Ashish drake 2023 Team Status: Inactive Member Role Status Dates Beverly Vega Attending Provider Active Start: Ashish drake 2023 End: October 23, 2023 Goals (unrecognized section and content) Goals may be documented in a n alternate section FOR RECORDS PERTAINING TO PATIENTS WHO ARE [...] BE BASED ON THE PRIMARY CLINICAL RECORDS. [facility]. provides no warranty or guarantee of the accuracy or completeness of information in this document.
[2023-11-23 17:50] LABS: HCG Quantitative 3 mIU/mL
== END 2023-11-23 16:22 | disposition home or self-care (01) ==
PROVIDERS: PCP Family Medicine; Visit Provider Physician Assistant
DX: Z98.890 Other specified postprocedural states (principal)
CPT/HCPCS: 36415; 84702

== ENCOUNTER 2023-11-30 12:23 | Outpatient (OUT) | payer OTHER, SELFPAY ==
--- OUTSIDE RECORDS SUMMARY | 2023-11-30 12:47 | XMS_ITS | CCD ---
Author Organization [facility] Inform ion [facility] Care Team Providers Care Mail Handler Equipment Operator Name Role Phone DOREEN, DR HOFFMAN Attending Unavailable DARWIN, DR JOANN Ramirez Primary Care Unavailable DOREEN, DR HOFFMAN Admitting Unavailable DOREEN, DR HOFFMAN Consulting Unavailable GARY, DR PAUL Admitting Unavailable GARY, DR PAUL Consulting Unavailable GARY, DR PAUL Attending Unavailable DARWIN, DR JOANN Ramirez Primary Care Unavailable Beverly Vega Attending Unavailable Beverly Vega Admitting Unavailable Beverly Vega Attending Provider [phone] JASBIR HUNTER Attending Unavailable Allergies Allergy Classification Reported Allergen(s) Allergy Type Date of Onset Reaction(s) Facility (1 source) Amoxicillin Drug Allergy 06-22-2022 [facility] (1 source) 12 Hour Decongestant Allergy to substance 06-22-2022 [facility] Problems Problem Classification Problem Date Documented Date [...] Basophils (Bld) [#/Vol] 0.0 10 3/uL 0.0-0.1 [facility] Basophils/100 WBC Auto (Bld) on 10-23-2023 Basophils/100 WBC (Bld) 0.8 % 0.2-2.0 [facility] Eosinophils/100 WBC Auto (Bl d)on 10-23-2023 Eosinophils/100 WBC (Bld) 1.4 % 0.9-7.0 [facility] Erythrocyte distribution wid th Auto (RBC) [Ratio]on 10-23-2023 Erythrocyte distribution width (RBC) [Ratio] 11.9 % 11.0-15.0 [facility] Hematocrit Auto (Bld) [Volum e fraction]on 10-23-2023 Hematocrit (Bld) [Volume fraction] 36.0 % 36.0-48.0 [facility] Hemoglobin [Mass/volume] in Bloodon 10-23-2023 Hemoglobin (Bld) [Mass/Vol] 11.8 g/dL 12.0-16.0 [facility] Krzysztof 10-23-2023 L Specimen: [id number] Received: 10/26/23 Status: MAIA Newell Num: [id number] Spec Type: Surgical Subm Dr: Beverly Vega Tissues: A Products of Conception - Spontaneous or Missed (POC) Procedures: HE/3, Gross/Micro L4 Age/ Patient Sex Location Account Attending Physician Tiffanie Elizabeth 37/F LABELL [id number] Beverly Vega SPEC NUM: [id number] RECD: 10/26/23 STATUS: MAIA NEWELL NUM: [id number] JANIE: 10/23/[address]: Beverly Vega ENTERED: 10/26/[address] [facility] [address]: Héctor,Lab SPEC TYPE: Surgical DEPT: POOJA [...] cm possible area of villous tissue identified. Special Needs Librarian sections to include the possible villous tissue are submitted in A1?A3. Clinical history: Missed CPT Codes 08265 ---- ---- Specimen: [id number] Received: 10/26/23 Status: RINAShayy Newell Num: [id number] Spec Type: Surgical Subm Dr: Beverly Vega Tissues: A Products of Conception - Spontaneous or Missed (POC) Procedures: Zander SINGLETON/Dannie L4 ---- Patient: Tiffanie Elizabeth [id number] (Continued) ---- Signed (signature on file) Dante Palacios MD 10/27/23 0901 Normal [facility] - Hematology and Cell countson 10-23-2023 Immature granulocytes/100 WBC (Bld) 0.2 % 0.0-0.5 [facility] Leukocytes [#/volume] correc leroy for nucleated erythrocytes in Blood by Automated counon 10-23-2023 WBC corrected for nucl RBC Auto (Bld) [#/Vol] 5.1 10 3/uL 4.0-11.0 [facility] Lymphocytes Auto (Bld) [#/Vo l]on 10-23-2023 Lymphocytes (Bld) [#/Vol] 1.7 10 3/uL 1.2-3.8 [facility] Lymphocytes/100 WBC Auto (Bl d)on 10-23-2023 Lymphocytes/100 WBC (Bld) 32.8 % 20.5-60.0 [facility] MCH Auto (RBC) [Entitic mass ]on 10-23-2023 MCH (RBC) [Entitic mass] 31.1 pg 26.7-34.0 [facility] MCHC Auto (RBC) [Mass/Vol]on 10-23-2023 MCHC (RBC) [Mass/Vol] 32.8 g/dL 29.9-35.2 [facility] MCV Auto (RBC) [Entitic vol] on 10-23-2023 MCV (RBC) [Entitic vol] 95.0 fL 81.0-99.0 [facility] Monocytes Auto (Bld) [#/Vol] on 10-23-2023 Monocytes (Bld) [#/Vol] 0.3 10 3/uL 0.3-0.8 [facility] Monocytes/100 WBC Auto (Bld) on 10-23-2023 Monocytes/100 WBC (Bld) 5.5 % 1.7-12.0 [facility] Neutrophils Auto (Bld) [#/Vo l]on 10-23-2023 Neutrophils (Bld) [#/Vol] 3.0 10 3/uL 1.4-6.5 [facility] Neutrophils/100 WBC Auto (Bl d)on 10-23-2023 Neutrophils/100 WBC (Bld) 59.3 % 43.0-75.0 [facility] No Panel Informationon 10-22 Eosinophils # (Auto) 0.1 10 3/uL 0.0-0.7 [facility] Immature Granulocyte # (Auto) 0.01 10 3/uL 0.00-0.03 [facility] Platelet mean volume Auto (B ld) [Entitic vol]on 10-23-2023 Platelet mean volume (Bld) [Entitic vol] 9.0 fL 9.5-13.5 [facility] Platelets Auto (Bld) [#/Vol] on 10-23-2023 Platelets (Bld) [#/Vol] 182 10 3/uL 150-450 [facility] RBC Auto (Bld) [#/Vol]on RBC (Bld) [#/Vol] 3.79 10 6/uL 4.20-5.40 [facility] No Panel Informationon 10-11 Human Chorionic Gonadotropin, Quant 08888 mIU/mL [facility] Comment on above: 5-50 0.2-1 EKTR99-16 0 1-2 AEBCW265-6,000 2-3 KEDOL351-15,000 3-4 WEEKS1,000-50,000 4-5 WEEKS10,000-100,000 5-6 WEEKS15,000-200,000 6-8 WEEKS10,000-100,000 2-3 MONTHS No Panel Informationon 10-06 Human Chorionic Gonadotropin, Quant 20037 mIU/mL [facility] Comment on above: 5-50 0.2-1 RFYA16-53 0 1-2 RIFBB486-0,000 2-3 ZHRIK585-97,000 3-4 WEEKS1,000-50,000 4-5 WEEKS10,000-100,000 5-6 WEEKS15,000-200,000 6-8 WEEKS10,000-100,000 2-3 MONTHS No Panel Informationon 10-04 Human Chorionic Gonadotropin, Quant 55561 mIU/mL [facility] Comment on above: 5-50 0.2-1 SDGO11-98 0 1-2 SJUQJ215-0,000 2-3 UWXMO205-37,000 3-4 WEEKS1,000-50,000 4-5 WEEKS10,000-100,000 5-6 WEEKS15,000-200,000 6-8 WEEKS10,000-100,000 2-3 MONTHS PAP ACOG PANEL 2: 30 to 65on 03-11-2022 . . Normal [facility] Comment on above: Result Comment: Perf ormed at: WB Performed By: #### [id number] #### [facility] [address] [place] [address] Dr. Danni Jacobs Age Gdln ACOG Testing 30-65 Normal [facility] Comment on above: Performed By: #### [id number] #### [facility] [address] [place] [address] Dr. Danni Jacobs DIAGNOSIS: Comment Normal [facility] Comment on above: Result Comment: NEGA TIVE FOR INTRAEPITHELIAL LESION OR MALIGNANCY. THIS SPECIMEN WAS RESCREENED PART OF OUR [employer] PROGRAM. Performed at: WB Performed By: #### [id number] #### [facility] [address] [place] [address] Dr. Danni Jacobs HPV Aptima Negative Normal Negative [facility] Comment on above: Result Comment: This nucleic acid amplification test detects fourteen high-risk HPV types (16,18,31,33,35,39,45,51,52,56,58,59,66,68) without differentiation. Performed at: =G Performed By: #### [id number] #### [facility] [address] [place] [address] Dr. Dnani Jacobs Methodology: Comment Normal [facility] Comment on above: Result Comment: This liquid based ThinPrep(R) pap test was screened with the use of an image guided system. Performed at: WB Performed By: #### [id number] #### [facility] [address] [place] [address] Dr. Danni Jacobs Note: Comment Normal [facility] Comment on above: Result Comment: The Pap smear is a screening test designed to aid in the detection of premalignant and malignant conditions of the uterine cervix. It is not a diagnostic procedure and should not be used as the sole means of detecting cervical cancer. Both false-positive and false-negative reports do occur. . Performed at: WB Performed By: #### [id number] #### [facility] [address] [place] [address] Dr. Danni Jacobs Performed by: Comment Normal [facility] Comment on above: Result Comment: Rocky Hull, Manager Of Radiology (ASCP) Performed at: WB Performed By: #### [id number] #### [facility] [address] [address] [address] Danni Jacobs QC reviewed by: Comment Normal [facility] Comment on above: Result Comment: Betzaida Ge, Supervisory Manager Of Radiology (ASCP) Performed at: WB Performed By: #### [id number] #### [facility] [address] [address] [address] Danni Jacobs Specimen adequacy: Comment Normal [facility] Comment on above: Result Comment: Sati sfactory for evaluation. Endocervical and/or squamous metaplastic cells (endocervical component) are present. Performed at: WB Performed By: #### [id number] #### [facility] [address] [address] [address] Danni Jacobs GLUCOSE BLOODon 04-22-2021 Glucose [Mass/Vol] 99 mg/dL Normal 74-106 [facility] Comment on above: Performed By: #### G YOSEPH, LIPID #### [facility] [address] [address] [address] Danni Jacobs LIPID PROFILEon 04-22-2021 CHOL-HDL RATIO NORM SEE BELOW Normal [facility] Comment on above: Result Comment: 3.3 - 4.4 LOW RISK 4.4 - 7.1 AVERAGE RISK 7.1 - 11.0 MODERATE RISK >11.0 HIGH RISK Performed By: #### G YOSEPH, LIPID #### [facility] [address] [address] [address] Danni Jacobs Cholesterol [Mass/Vol] 157 mg/dL Normal <=200 [facility] Comment on above: Performed By: #### G YOSEPH, LIPID #### [facility] [address] [address] [address] Danni Jacobs Cholesterol in HDL [Mass/Vol] 74 mg/dL Normal [facility] Comment on above: Performed By: #### G YOSEPH, LIPID #### [facility] [address] [address] [address] Danni Jacobs Cholesterol in LDL [Mass/Vol] 71.2 mg/dL Normal [facility] Comment on above: Performed By: #### G YOSEPH, LIPID #### [facility] [address] [address] [address] Danni Jacobs Cholesterol.total/C holesterol in HDL [Mass ratio] 2.1 {ratio} Normal [facility] Comment on above: Performed By: #### G YOSEPH, LIPID #### [facility] [address] [address] [address] Danni Jacobs HDL NORMAL > or = 60 mg/dl - LO W CARDIOVASCULAR RISK <40 mg/dl - HIGH CARDIOVASCULAR RISK Normal [facility] Comment on above: Performed By: #### G YOSEPH, LIPID #### [facility] [address] [address] [address] Danni Jacobs LDL CALC NORMAL SEE BELOW Normal [facility] Comment on above: Result Comment: <100 mg/dl OPTIMAL 100 - 129 mg/dl NEAR OR ABOVE OPTIMAL 130 - 159 mg/dl BORDERLINE HIGH 160 - 189 mg/dl HIGH >190 mg/dl VERY HIGH Performed By: #### G YOSEPH, LIPID #### [facility] [address] [address] [address] Danni Jacobs Triglyceride [Mass/Vol] 59 mg/dL Normal <=150 [facility] Comment on above: Performed By: #### G YOSEPH, LIPID #### [facility] [address] [address] [address] Danni Jacobs VLDL CALC 11.8 mg/dL Normal [facility] Comment on above: Performed By: #### G YOSEPH, LIPID #### [facility] [address] [address] [address] Danni Jacobs Encounters Encounter Date Encounter Type Care Provider Facility Start: 11-09-2023 End: 11-09-2023 ambulatory JASBIR HUNTER Not Available Start: 10-23-2023 End: 10-23-2023 ambulatory Beverly Vega Facility:[facility] Start: 10-23-2023 End: 10-23-2023 ambulatory Beverly Gary Work Phone: [facility] Work Phone: Start: 10-23-2023 End: 10-23-2023 Departed Referred Beverly Gary Work Phone: [facility] Start: 10-23-2023 Non-patient / Non-visit Beverly Gary Work Phone: [facility] Work Phone: Start: 10-12-2023 Non-patient / Non-visit Beverly Gary Work Phone: [facility] Work Phone: Start: 10-07-2023 Non-patient / Non-visit Beverly Gary Work Phone: [facility] Work Phone: Start: 10-05-2023 Non-patient / Non-visit Beverly Gary Work Phone: [facility] Work Phone: Start: 03-03-2022 End: 03-03-[address] BEVERLY VEGA Facility:[facility] Start: 04-28-2021 Encounter for genera l adult medical examination without abnormal findings DR DALTON LOGAN [facility] Start: 04-22-2021 End: 04-23-[address] DALTON LOGAN Facility:[facility] Start: 04-22-2021 End: 04-23-2021 Encounter for general adult medical examination without abnormal findings DR DALTON LOGAN Facility:[facility] Payers Date Payer Category Payer Unknown [id number] 1985 Unknown [id number] 1985 Unknown [id number] 1959 Unknown [id number] Social History Date Type Detail Facility Tobacco smoking stat us NHIS Unknown if ever smoked [facility] Work Phone: Start: 1985 Sex Assigned At Female F [facility] Evaluation note Note Date & Type Note Facility Evaluation note No assessment information availa ble [facility] Work Phone: Summary Purpose Family History No Family History Records FoundNo Family History Records FoundNo Family History Records Found Advance Directives No Advanced Directives Records FoundNo Advanced Directives Records FoundNo Advanced Directives Records Found Additional Source Comments INFORMATION SOURCE (unrecogn ized section and content) DATE CREATED AUTHOR 03/22/2022 [facility] DATE CREATED AUTHOR AUTHOR'S ORGANIZ ATION 10/28/2023 [facility] DATE CREATED AUTHOR AUTHOR'S ORGANIZ ATION 11/11/2023 [facility] d[facility] Specialists [employer] Care Teams (unrecognized sec [...] BE BASED ON THE PRIMARY CLINICAL RECORDS. [facility] [employer] [facility]. provides no warranty or guarantee of the accuracy or completeness of information in this document.
[2023-11-30 14:13] LABS: HCG Quantitative 2 mIU/mL
== END 2023-11-30 12:24 | disposition home or self-care (01) ==
LOC: LAB 12:24
PROVIDERS: PCP Family Medicine; Visit Provider Obstetrics & Gynecology
DX: Z98.890 Other specified postprocedural states (principal)
CPT/HCPCS: 36415; 84702

== ENCOUNTER 2023-12-01 16:34 | Outpatient (OUT) | payer OTHER, SELFPAY ==
--- NOTE | 2023-12-01 16:38 | XR_ITS ---
The [address] [address] Patient Name: RAPHAEL GAMA MRN: [id number] date: 1985 Sex: F Assigned Patient Location: [facility] Current Patient Location: Accession/Order Number: [id number] Exam Date: 12/01/2023 17:06 Report Date: 12/02/2023 07:31 At the request of: JEN GRANADOS Procedure: XR hip LT 2V w/ pelvis PROCEDURE: XR hip LT 2V w/ pelvis COMPARISON: None. HISTORY: Pain in left hip M25.552 FINDINGS: BONES:No fracture, acute abnormality, or significant arthropathy. SOFT TISSUES:Negative. No visible soft tissue swelling. EFFUSION:None visible. OTHER: Negative. XR/XR hip LT 2V w/ pelvis IMPRESSION: No acute radiographic abnormality Electronically authenticated by: TIKA KIMBALL Date: 12/02/2023 07:31
--- OUTSIDE RECORDS SUMMARY | 2023-12-01 16:38 | XMS_ITS ---
Patient Summarization (C-CDA 2.1 CCD) Created on: December 01, 2023 TIFFANIE ELIZABETH : 1985 Sex: Female Author Organization Sample organization Care Team Providers Care Customer Support Consultant Name Role Phone DOREEN, DR HOFFMAN Attending Unavailable DARWIN, DR JOANN Ramirez Primary Care Unavailable DOREEN, DR HOFFMAN Admitting Unavailable DOREEN, DR HOFFMAN Consulting Unavailable GARY, DR PAUL Admitting Unavailable GARY, DR PAUL Consulting Unavailable GARY, DR PAUL Attending Unavailable DARWIN, DR JOANN Ramirez Primary Care Unavailable Gary, Beverly Attending Unavailable Gary, Beverly Admitting Unavailable Beverly Vega Attending Provider JASBIR HUNTER Attending Unavailable Allergies Allergy Classification Reported Allergen(s) Allergy Type Date of Onset Reaction(s) Facility (1 source) Amoxicillin Drug Allergy 06-22-2022 [facility] (1 source) 12 Hour Decongestant Allergy to substance 06-22-2022 [facility] Encounters Encounter Date Encounter Type Care Provider Facility Start: 11-09-2023 End: 11-09-2023 ambulatory JASBIR HUNTER Not Available Start: 10-23-2023 End: 10-23-2023 ambulatory Beverly Gary Facility:[facility] Start: 10-23-2023 End: 10-23-2023 ambulatory Beverly Gary Work Phone: [facility] Work Phone: Start: 10-23-2023 End: 10-23-2023 Departed Referred Beverly Gary Work Phone: [facility] Start: 10-23-2023 Non-patient / Non-visit Beverly Gary [facility] Phone[facility] Work Phone: Start: 10-12-2023 Non-patient / Non-visit Beverlyvidal Vega Work Phone: [facility] Work Phone: Start: 10-07-2023 Non-patient / Non-visit Beverly Vega Work Phone: [facility] Work Phone: Start: 10-05-2023 Non-patient / Non-visit Beverly Vega Work Phone: [facility] Work Phone: Start: 03-03-2022 End: 03-03-[address] BEVERLY VEGA Facility:[facility] Start: 04-28-2021 Encounter for genera l adult medical examination without abnormal findings DR DALTON LOGAN [facility] Start: 04-22-2021 End: 04-23-[address] DALTON LOGAN Facility:[facility] Start: 04-22-2021 End: 04-23-2021 Encounter for general adult medical examination without abnormal findings DR DALTON LOGAN Facility:[facility] Payers Date Payer Category Payer Unknown [id number] [id number] [id number] 1985 Unknown [id number] 1985 Unknown [id number] [id number] 1957 Unknown [id number] Problems Problem Classification Problem Date Documented Date [...] [#/Vol] 0.0 10 3/uL 0.0-0.1 [facility] Basophils/100 WBC Auto (Bld) on 10-23-2023 Basophils/100 WBC (Bld) 0.8 % 0.2-2.0 [facility] Eosinophils/100 WBC Auto (Bl d)on 10-23-2023 Eosinophils/100 WBC (Bld) 1.4 % 0.9-7.0 [facility] Erythrocyte distribution wid th Auto (RBC) [Ratio]on 10-23-2023 Erythrocyte distribution width (RBC) [Ratio] 11.9 % 11.0-15.0 [facility] Hematocrit Auto (Bld) [Volum e fraction]on 10-23-2023 Hematocrit (Bld) [Volume fraction] 36.0 % 36.0-48.0 [facility] Hemoglobin [Mass/volume] in Bloodon 10-23-2023 Hemoglobin (Bld) [Mass/Vol] 11.8 g/dL 12.0-16.0 [facility] Krzysztof 10-23-2023 L Specimen: [id number] Received: 10/26/23 Status: MAIA Newell Num: [id number] Spec Type: Surgical Subm Dr: Beverly Vega Tissues: A Products of Conception - Spontaneous or Missed (POC) Procedures: HE/3, Gross/Micro L4 Age/ Patient Sex Location Account Attending Physician Tiffanie Elizabeth 37/F LABE[facility] [id number] Beverly Vega SPEC NUM: [id number] RECD: 10/26/23 STATUS: MAIA NEWELL NUM: [id number] JANIE: 10/23/[address]: Beverly Vega ENTERED: 10/26/[address]: Héctor,Lab SPEC TYPE: Surgical DEPT: POOJA [...] cm possible area of villous tissue identified. Shackler sections to include the possible villous tissue are submitted in A1?A3. Clinical history: Missed CPT Codes 87810 ---- ---- Specimen: [id number] Received: 10/26/23 Status: MAIA Newell Num: [id number] Spec Type: Surgical Subm Dr: Beverly Vega Tissues: A Products of Conception - Spontaneous or Missed (POC) Procedures: HE/3, Gross/Micro L4 ---- Patient: Tiffanie Elizabeth [id number] (Continued) ---- Signed (signature on file) Dante Palacios MD 10/27/23 1511 Normal [facility] - Hematology and Cell countson 10-23-2023 Immature granulocytes/100 WBC (Bld) 0.2 % 0.0-0.5 [facility] Leukocytes [#/volume] correc leroy for nucleated erythrocytes in Blood by Automated counon 10-23-2023 WBC corrected for nucl RBC Auto (Bld) [#/Vol] 5.1 10 3/uL 4.0-11.0 [facility] Lymphocytes Auto (Bld) [#/Vo l]on 10-23-2023 Lymphocytes (Bld) [#/Vol] 1.7 10 3/uL 1.2-3.8 [facility] Lymphocytes/100 WBC Auto (Bl d)on 10-23-2023 Lymphocytes/100 WBC (Bld) 32.8 % 20.5-60.0 [facility] MCH Auto (RBC) [Entitic mass ]on 10-23-2023 MCH (RBC) [Entitic mass] 31.1 pg 26.7-34.0 [facility] MCHC Auto (RBC) [Mass/Vol]on 10-23-2023 MCHC (RBC) [Mass/Vol] 32.8 g/dL 29.9-35.2 [facility] MCV Auto (RBC) [Entitic vol] on 10-23-2023 MCV (RBC) [Entitic vol] 95.0 fL 81.0-99.0 [facility] Monocytes Auto (Bld) [#/Vol] on 10-23-2023 Monocytes (Bld) [#/Vol] 0.3 10 3/uL 0.3-0.8 [facility] Monocytes/100 WBC Auto (Bld) on 10-23-2023 Monocytes/100 WBC (Bld) 5.5 % 1.7-12.0 [facility] Neutrophils Auto (Bld) [#/Vo l]on 10-23-2023 Neutrophils (Bld) [#/Vol] 3.0 10 3/uL 1.4-6.5 [facility] Neutrophils/100 WBC Auto (Bl d)on 10-23-2023 Neutrophils/100 WBC (Bld) 59.3 % 43.0-75.0 [facility] No Panel Informationon 10-22 Eosinophils # (Auto) 0.1 10 3/uL 0.0-0.7 [facility] Immature Granulocyte # (Auto) 0.01 10 3/uL 0.00-0.03 [facility] Platelet mean volume Auto (B ld) [Entitic vol]on 10-23-2023 Platelet mean volume (Bld) [Entitic vol] 9.0 fL 9.5-13.5 [facility] Platelets Auto (Bld) [#/Vol] on 10-23-2023 Platelets (Bld) [#/Vol] 182 10 3/uL 150-450 [facility] RBC Auto (Bld) [#/Vol]on RBC (Bld) [#/Vol] 3.79 10 6/uL 4.20-5.40 [facility] No Panel Informationon 10-11 Human Chorionic Gonadotropin, Quant 48178 mIU/mL [facility] Comment on above: 5-50 0.2-1 DGLC40-37 0 1-2 JNREW853-5,000 2-3 OTJWO012-37,000 3-4 WEEKS1,000-50,000 4-5 WEEKS10,000-100,000 5-6 WEEKS15,000-200,000 6-8 WEEKS10,000-100,000 2-3 MONTHS No Panel Informationon 10-06 Human Chorionic Gonadotropin, Quant 12345 mIU/mL [facility] Comment on above: 5-50 0.2-1 NDNU08-66 0 1-2 JGNWB418-0,000 2-3 SMTSB267-15,000 3-4 WEEKS1,000-50,000 4-5 WEEKS10,000-100,000 5-6 WEEKS15,000-200,000 6-8 WEEKS10,000-100,000 2-3 MONTHS No Panel Informationon 10-04 Human Chorionic Gonadotropin, Quant 29971 mIU/mL [facility] Comment on above: 5-50 0.2-1 VHZE33-92 0 1-2 YKCJE629-6,000 2-3 CUYYH086-01,000 3-4 WEEKS1,000-50,000 4-5 WEEKS10,000-100,000 5-6 WEEKS15,000-200,000 6-8 WEEKS10,000-100,000 2-3 MONTHS PAP ACOG PANEL 2: 30 to 65on 03-11-2022 . . Normal [facility] Comment on above: Result Comment: Perf ormed at: WB Performed By: #### [id number] #### [facility] [address] [address] [address] Danni Jacobs Age Gdln ACOG Testing 30-65 [facility] Comment on above: Performed By: #### [id number] #### [facility] [address] [place] [address] Dr. Danni Jacobs DIAGNOSIS: Comment Normal [facility] Comment on above: Result Comment: NEGA TIVE FOR INTRAEPITHELIAL LESION OR MALIGNANCY. THIS SPECIMEN WAS RESCREENED PART OF OUR CAGE MAKER MACHINE PROGRAM. Performed at: WB Performed By: #### [id number] #### [facility] [address] [address] [address] Danni Jacobs HPV Aptima Negative Normal [facility] Comment on above: Result Comment: This nucleic acid amplification test detects fourteen high-risk HPV types (16,18,31,33,35,39,45,51,52,56,58,59,66,68) without differentiation. Performed at: =G Performed By: #### [id number] #### [facility] [address] [address] [address] Danni Jacobs Methodology: Comment Normal [facility] Comment on above: Result Comment: This liquid based ThinPrep(R) pap test was screened with the use of an image guided system. Performed at: WB Performed By: #### [id number] #### [facility] [address] [place] [address] Dr. Danni Jacobs Note: Comment Normal [facility] Comment on above: Result Comment: The Pap smear is a screening test designed to aid in the detection of premalignant and malignant conditions of the uterine cervix. It is not a diagnostic procedure and should not be used as the sole means of detecting cervical cancer. Both false-positive and false-negative reports do occur. . Performed at: WB Performed By: #### [id number] #### [facility] [address] [address] [address] Danni Jacobs Performed by: Comment Normal [facility] Comment on above: Result Comment: Rocky Hull, [employer] Security Consultant (ASCP) Performed at: WB Performed By: #### [id number] #### [facility] [address] [address] [address] Danni Jacobs QC reviewed by: Comment Normal [facility] Comment on above: Result Comment: Betzaida Ge, Supervisory [employer] Consultant (ASCP) Performed at: WB Performed By: #### [id number] #### [facility] [address] [place] [address] Dr. Danni Jacobs Specimen adequacy: Comment Normal [facility] Comment on above: Result Comment: Sati sfactory for evaluation. Endocervical and/or squamous metaplastic cells (endocervical component) are present. Performed at: WB Performed By: #### [id number] #### [facility] [address] [place] [address] Dr. Danni Jacobs GLUCOSE BLOODon 04-22-2021 Glucose [Mass/Vol] 99 mg/dL Normal 74-106 [facility] Comment on above: Performed By: #### G YOSEPH, LIPID #### [facility] [address] [place] [address] Dr. Danni Jacobs LIPID PROFILEon 04-22-2021 CHOL-HDL RATIO NORM SEE BELOW Normal [facility] Comment on above: Result Comment: 3.3 - 4.4 LOW RISK 4.4 - 7.1 AVERAGE RISK 7.1 - 11.0 MODERATE RISK >11.0 HIGH RISK Performed By: #### G YOSEPH, LIPID #### [facility] [address] [place] [address] Dr. Danni Jacobs Cholesterol [Mass/Vol] 157 mg/dL Normal <=200 [facility] Comment on above: Performed By: #### G YOSEPH, LIPID #### [facility] [address] [address] [address] Danni Jacobs Cholesterol in HDL [Mass/Vol] 74 mg/dL Normal [facility] Comment on above: Performed By: #### G YOSEPH, LIPID #### [facility] [address] [address] [address] Danni Jacobs Cholesterol in LDL [Mass/Vol] 71.2 mg/dL Normal [facility] Comment on above: Performed By: #### G YOSEPH, LIPID #### [facility] [address] [address] [address] Danni Jacobs Cholesterol.total/C holesterol in HDL [Mass ratio] 2.1 {ratio} Normal [facility] Comment on above: Performed By: #### G YOSEPH, LIPID #### [facility] [address] [address] [address] Danni Jacobs HDL NORMAL > or = 60 mg/dl - LO W CARDIOVASCULAR RISK <40 mg/dl - HIGH CARDIOVASCULAR RISK Normal [facility] Comment on above: Performed By: #### G YOSEPH, LIPID #### [facility] [address] [address] [address] Danni Jacobs LDL CALC NORMAL SEE BELOW Normal [facility] Comment on above: Result Comment: <100 mg/dl OPTIMAL 100 - 129 mg/dl NEAR OR ABOVE OPTIMAL 130 - 159 mg/dl BORDERLINE HIGH 160 - 189 mg/dl HIGH >190 mg/dl VERY HIGH Performed By: #### G YOSEPH, LIPID #### [facility] [address] [address] [address] Danni Jacobs Triglyceride [Mass/Vol] 59 mg/dL Normal <=150 [facility] Comment on above: Performed By: #### G YOSEPH, LIPID #### [facility] [address] [address] [address] Danni Jacobs VLDL CALC 11.8 mg/dL Normal [facility] Comment on above: Performed By: #### G YOSEPH, LIPID #### [facility] [address] [address] [address] Danni Jacobs Social History Date Type Detail Facility Start: 1985 Sex Assigned At Female F [facility] Tobacco smoking stat us NHIS Unknown if ever smoked [facility] Work Phone: Evaluation note Note Date & Type Note Facility Evaluation note No assessment information availa ble [facility] Work Phone: Summary Purpose Family History No Family History Records FoundNo Family History Records FoundNo Family History Records Found Advance Directives No Advanced Directives Records FoundNo Advanced Directives Records FoundNo Advanced Directives Records Found Additional Source Comments INFORMATION SOURCE (unrecogn ized section and content) DATE CREATED AUTHOR 03/22/2022 [facility] DATE CREATED AUTHOR AUTHOR'S ORGANIZ ATION 10/28/2023 [facility] DATE CREATED AUTHOR AUTHOR'S ORGANIZ ATION 11/11/2023 [facility] EPIC Care Teams (unrecognized [...] BE BASED ON THE PRIMARY CLINICAL RECORDS. [facility] [employer] [facility]. provides no warranty or guarantee of the accuracy or completeness of information in this document.
== END 2023-12-01 16:35 | disposition home or self-care (01) ==
LOC: RAD 16:34
PROVIDERS: PCP Family Medicine; Visit Provider Family Medicine
DX: M25.552 Pain in left hip (principal)
CPT/HCPCS: 73502

== ENCOUNTER 2024-01-16 08:27 | Outpatient (RCR) | payer OTHER, SELFPAY ==
[2024-01-16 09:29] LABS: HCG Quantitative 566 mIU/mL
[2024-01-18 16:43] LABS: HCG Quantitative 1644 mIU/mL
== END 2024-01-20 08:23 | disposition home or self-care (01) ==
LOC: LAB 08:27
PROVIDERS: PCP Family Medicine; Visit Provider Obstetrics & Gynecology
DX: N92.6 Irregular menstruation, unspecified (principal)
CPT/HCPCS: 36415; 84702

== ENCOUNTER 2024-02-12 10:03 | Outpatient (OUT) | payer OTHER, SELFPAY ==
--- NOTE | 2024-02-12 10:05 | US_ITS ---
[address] [address] Patient Name: RAPHAEL GAMA MRN: [id number] date: 1985 Sex: F Assigned Patient Location: [facility] Current Patient Location: [facility] Accession/Order Number: [id number] Exam Date: 02/12/2024 10:06 Report Date: 02/12/2024 11:27 At the request of: BEVERLY SAHA Procedure: US OB transvaginal EXAMINATION: US OB transvaginal HISTORY: MISSED MENSES COMPARISON: 08/14/2023 FINDINGS: Zavala intrauterine gestation Gestational sac: 2.1 cm, 7 weeks 4 days CRL: 1.9 cm, 8 weeks 3 days Yolk sac: 2.9 mm Heart rate: 160 beats minute The uterus is normal, anteverted, anteflexed The right ovary is normal measuring 4.8 x 3.3 x 4.6 cm. Normal color Doppler flow The left ovary is normal The cervix is closed measuring 4.2 cm in length Clinical age: 8 weeks 0 days Clinical ADRIANA: 09/23/2024 Ultrasound age: 8 weeks 3 days Ultrasound ADRIANA: 09/20/2024 US/US OB transvaginal IMPRESSION: Viable zavala intrauterine gestation measuring 8 weeks 3 days Electronically authenticated by: TIKA KIMBALL Date: 02/12/2024 11:27
--- OUTSIDE RECORDS SUMMARY | 2024-02-12 10:26 | XMS_ITS | CCD ---
Author Organization [facility] Inform ion Partnership [facility] Care Team Providers Care Furniture Assembler Name Role Phone DOREEN, DR HOFFMAN Attending Unavailable DARWIN, DR JOANN Ramirez Primary Care Unavailable DOREEN, DR HOFFMAN Admitting Unavailable DOREEN, DR HOFFMAN Consulting Unavailable GARY, DR PAUL Admitting Unavailable GARY, DR PAUL Consulting Unavailable GARY, DR PAUL Attending Unavailable DARWIN, DR JOANN Ramirez Primary Care Unavailable Beverly Vega Attending Unavailable Beverly Vega Admitting Unavailable Beverly Vega Attending Provider EMELY HUNTER Attending Unavailable ASHLEY SHIN Attending Unavailable JOANN GRANADOS Referring Unavailable JOANN GRANADOS Primary Care Unavailable Allergies Allergy Classification Reported Allergen(s) Allergy Type Date of Onset Reaction(s) Facility (3 sources) Amoxicillin; Translations: [AMOXICILLIN] Drug Allergy 06-22-2022 [facility] (2 sources) 12 Hour Decongestant Allergy to substance 06-22-2022 [facility] Problems Problem Classification Problem Date Documented Date Episodic/Chronic Immunizations and screening for infectious disease (1 source) Encounter for screening for human papillomavirus (HPV); Translations: [ENC SCREENING HUMAN PAPILLOMAVIRUS] Onset: 03-08-2022 Episodic Other connective tissue disease (1 source) Other specified enthesopathies of left lower limb, excluding foot; Translations: [Other specified enthesopathies of left lower limb, excluding foot] Onset: 02-08-2024 Episodic Other non-traumatic joint disorders (1 source) Hip pain; Translations: [Pain in left hip] 12-01-2023 Episodic Other non-traumatic joint disorders (2 sources) Pain in left hip; Translations: [Pain in joint, pelvic region and thigh] Onset: 02-08-2024 12-01-2023 Episodic Other screening for suspected conditions (not mental disorders or infectious disease) (4 sources) Encounter for screening for malignant neoplasm of cervix; Translations: [ENC SCREENING MALIG NEOPLASM CERV] Onset: 03-03-2022 Episodic Residual codes; unclassified (1 source) Pain, unspecified; Translations: [Pain, unspecified] Onset: 02-08-2024 Episodic Unclassified (1 source) New Patient Onset: 02-08-2024 Results Test Name Value Interpretation Reference Range Facil ity No Panel Informationon 11-29 Human Chorionic Gonadotropin, Quant 2 mIU/mL [facility] Comment on above: 5-50 0.2-1 SVQF82-05 0 1-2 PPSLW233-8,000 2-3 OEDOM988-56,000 3-4 WEEKS1,000-50,000 4-5 WEEKS10,000-100,000 5-6 WEEKS15,000-200,000 6-8 WEEKS10,000-100,000 2-3 MONTHS No Panel Informationon 11-22 Human Chorionic Gonadotropin, Quant 3 mIU/mL [facility] Comment on above: 5-50 0.2-1 OBGI19-56 0 1-2 RBZAS632-8,000 2-3 OXVAV258-74,000 3-4 WEEKS1,000-50,000 4-5 WEEKS10,000-100,000 5-6 WEEKS15,000-200,000 6-8 WEEKS10,000-100,000 2-3 MONTHS No Panel Informationon 11-16 Human Chorionic Gonadotropin, Quant 6 mIU/mL [facility] Comment on above: 5-50 0.2-1 DWAJ38-17 0 1-2 JFIPF375-5,000 2-3 UWYKS344-82,000 3-4 WEEKS1,000-50,000 4-5 WEEKS10,000-100,000 5-6 WEEKS15,000-200,000 6-8 WEEKS10,000-100,000 2-3 MONTHS No Panel Informationon 11-08 Human Chorionic Gonadotropin, Quant 27 mIU/mL [facility] Comment on above: 5-50 0.2-1 ZZAE28-16 0 1-2 GAVAZ905-9,000 2-3 ITMQO677-06,000 3-4 WEEKS1,000-50,000 4-5 WEEKS10,000-100,000 5-6 WEEKS15,000-200,000 6-8 WEEKS10,000-100,000 2-3 MONTHS Basophils Auto (Bld) [#/Vol] on 10-23-2023 Basophils (Bld) [#/Vol] 0.0 10 3/uL 0.0-0.1 [facility] Basophils/100 WBC Auto (Bld) on 10-23-2023 Basophils/100 WBC (Bld) 0.8 % 0.2-2.0 [facility] Eosinophils/100 WBC Auto (Bl d)on 10-23-2023 Eosinophils/100 WBC (Bld) 1.4 % 0.9-7.0 [facility] Erythrocyte distribution wid th Auto (RBC) [Ratio]on 10-23-2023 Erythrocyte distribution width (RBC) [Ratio] 11.9 % 11.0-15.0 [facility] Hematocrit Auto (Bld) [Volum e fraction]on 10-23-2023 Hematocrit (Bld) [Volume fraction] 36.0 % 36.0-48.0 [facility] Hemoglobin [Mass/volume] in Bloodon 10-23-2023 Hemoglobin (Bld) [Mass/Vol] 11.8 g/dL 12.0-16.0 [facility] Krzysztof 10-23-2023 L Specimen: [id number] Received: 10/26/23 Status: MAIA Newell Num: [id number] Spec Type: Surgical Subm Dr: Beverly Vega Tissues: A Products of Conception - Spontaneous or Missed (POC) Procedures: HE/3, Gross/Micro L4 Age/ Patient Sex Location Account Attending Physician Tiffanie Elizabeth 37/F LABELL [id number] Beverly Vega SPEC NUM: [id number] RECD: 10/26/23 STATUS: MAIA NEWELL NUM: [id number] JANIE: 10/23/[address]: Beverly Vega ENTERED: 10/26/23 [facility] DR: [facility],Lab SPEC TYPE: Surgical [...] cm possible area of villous tissue identified. Adolescent Counselor sections to include the possible villous tissue are submitted in A1?A3. Clinical history: Missed CPT Codes 71073 ---- ---- Specimen: [id number] Received: 10/26/23 Status: MAIA Newell Num: [id number] Spec Type: Surgical Subm Dr: Beverly Vega Tissues: A Products of Conception - Spontaneous or Missed (POC) Procedures: HE/3, Gross/Micro L4 ---- Patient: Tiffanie Elizabeth [id number] (Continued) ---- Signed (signature on file) Dante Palacios MD 10/27/23 1511 Normal [facility] - Hematology and Cell countson 10-23-2023 Immature granulocytes/100 WBC (Bld) 0.2 % 0.0-0.5 [facility] Leukocytes [#/volume] correc leroy for nucleated erythrocytes in Blood by Automated counon 10-23-2023 WBC corrected for nucl RBC Auto (Bld) [#/Vol] 5.1 10 3/uL 4.0-11.0 [facility] Lymphocytes Auto (Bld) [#/Vo l]on 10-23-2023 Lymphocytes (Bld) [#/Vol] 1.7 10 3/uL 1.2-3.8 [facility] Lymphocytes/100 WBC Auto (Bl d)on 10-23-2023 Lymphocytes/100 WBC (Bld) 32.8 % 20.5-60.0 [facility] MCH Auto (RBC) [Entitic mass ]on 10-23-2023 MCH (RBC) [Entitic mass] 31.1 pg 26.7-34.0 [facility] MCHC Auto (RBC) [Mass/Vol]on 10-23-2023 MCHC (RBC) [Mass/Vol] 32.8 g/dL 29.9-35.2 [facility] MCV Auto (RBC) [Entitic vol] on 10-23-2023 MCV (RBC) [Entitic vol] 95.0 fL 81.0-99.0 [facility] Monocytes Auto (Bld) [#/Vol] on 10-23-2023 Monocytes (Bld) [#/Vol] 0.3 10 3/uL 0.3-0.8 [facility] Monocytes/100 WBC Auto (Bld) on 10-23-2023 Monocytes/100 WBC (Bld) 5.5 % 1.7-12.0 [facility] Neutrophils Auto (Bld) [#/Vo l]on 10-23-2023 Neutrophils (Bld) [#/Vol] 3.0 10 3/uL 1.4-6.5 [facility] Neutrophils/100 WBC Auto (Bl d)on 10-23-2023 Neutrophils/100 WBC (Bld) 59.3 % 43.0-75.0 [facility] No Panel Informationon 10-22 Eosinophils # (Auto) 0.1 10 3/uL 0.0-0.7 [facility] Immature Granulocyte # (Auto) 0.01 10 3/uL 0.00-0.03 [facility] Platelet mean volume Auto (B ld) [Entitic vol]on 10-23-2023 Platelet mean volume (Bld) [Entitic vol] 9.0 fL 9.5-13.5 [facility] Platelets Auto (Bld) [#/Vol] on 10-23-2023 Platelets (Bld) [#/Vol] 182 10 3/uL 150-450 [facility] RBC Auto (Bld) [#/Vol]on RBC (Bld) [#/Vol] 3.79 10 6/uL 4.20-5.40 [facility] No Panel Informationon 10-11 Human Chorionic Gonadotropin, Quant 06391 mIU/mL [facility] Comment on above: 5-50 0.2-1 KVZW00-41 0 1-2 RZDXS559-8,000 2-3 YZBRA342-07,000 3-4 WEEKS1,000-50,000 4-5 WEEKS10,000-100,000 5-6 WEEKS15,000-200,000 6-8 WEEKS10,000-100,000 2-3 MONTHS No Panel Informationon 10-06 Human Chorionic Gonadotropin, Quant 90625 mIU/mL [facility] Comment on above: 5-50 0.2-1 DUBW05-29 0 1-2 FDHLD664-2,000 2-3 IRDXJ151-40,000 3-4 WEEKS1,000-50,000 4-5 WEEKS10,000-100,000 5-6 WEEKS15,000-200,000 6-8 WEEKS10,000-100,000 2-3 MONTHS No Panel Informationon 10-04 Human Chorionic Gonadotropin, Quant 80438 mIU/mL [facility] Comment on above: 5-50 0.2-1 FBFD20-21 0 1-2 QSYPC218-0,000 2-3 MSIDS313-27,000 3-4 WEEKS1,000-50,000 4-5 WEEKS10,000-100,000 5-6 WEEKS15,000-200,000 6-8 WEEKS10,000-100,000 2-3 MONTHS PAP ACOG PANEL 2: 30 to 65on 03-11-2022 . . Normal [facility] Comment on above: Result Comment: Perf ormed at: WB Performed By: #### [id number] #### [facility] [address] [place] [address] Dr. Danni Jacobs Age Gdln ACOG Testing 30-65 Normal [facility] Comment on above: Performed By: #### [id number] #### [facility] [address] [place] [address] Dr. Danni Jacobs DIAGNOSIS: Comment Normal [facility] Comment on above: Result Comment: NEGA TIVE FOR INTRAEPITHELIAL LESION OR MALIGNANCY. THIS SPECIMEN WAS RESCREENED PART OF OUR CONTROLS OPERATOR MOLDED GOODS PROGRAM. Performed at: WB Performed By: #### [id number] #### [facility] [address] [place] [address] Dr. Danni Jacobs HPV Aptima Negative Normal Negative [facility] Comment on above: Result Comment: This nucleic acid amplification test detects fourteen high-risk HPV types (16,18,31,33,35,39,45,51,52,56,58,59,66,68) without differentiation. Performed at: =G Performed By: #### [id number] #### [facility] [address] [place] [address] Dr. Danni Jacobs Methodology: Comment Normal [facility] Comment on above: Result Comment: This liquid based ThinPrep(R) pap test was screened with the use of an image guided system. Performed at: WB Performed By: #### [id number] #### [facility] [address] [address] [address] Danni Jacobs Note: Comment Normal [facility] Comment on above: Result [...] Performed at: WB Performed By: #### [id number] #### [facility] [address] [place] [address] Dr. Danni Jacobs Performed by: Comment Normal [facility] Comment on above: Result Comment: Rocky Hull, Knapsack Sprayer (ASCP) Performed at: WB Performed By: #### [id number] #### [facility] [address] [place] [address] Dr. Danni Jacobs QC reviewed by: Comment Normal [facility] Comment on above: Result Comment: Betzaida Ge, Supervisory Knapsack Sprayer (ASCP) Performed at: WB Performed By: #### [id number] #### [facility] [address] [place] [address] Dr. Danni Jacobs Specimen adequacy: Comment Normal [facility] Comment on above: Result Comment: Sati sfactory for evaluation. Endocervical and/or squamous metaplastic cells (endocervical component) are present. Performed at: WB Performed By: #### [id number] #### [facility] [address] [place] [address] Dr. Danni Jacobs GLUCOSE BLOODon 04-22-2021 Glucose [Mass/Vol] 99 mg/dL Normal 74-106 [facility] Comment on above: Performed By: #### G YOSEPH, LIPID #### [facility] [address] [place] [address] Dr. Danni Jacobs LIPID PROFILEon 04-22-2021 CHOL-HDL RATIO NORM SEE BELOW Normal [facility] Comment on above: Result Comment: 3.3 - 4.4 LOW RISK 4.4 - 7.1 AVERAGE RISK 7.1 - 11.0 MODERATE RISK >11.0 HIGH RISK Performed By: #### G YOSEPH, LIPID #### [facility] [address] [address] [address] Danni Jacobs Cholesterol [Mass/Vol] 157 mg/dL Normal <=200 [facility] Comment on above: Performed By: #### G YOSEPH, LIPID #### [facility] [address] [address] [address] Danni Jacobs Cholesterol in HDL [Mass/Vol] 74 mg/dL Normal [facility] Comment on above: Performed By: #### G YOSEPH, LIPID #### [facility] [address] [address] [address] Danni Jacobs Cholesterol in LDL [Mass/Vol] 71.2 mg/dL Normal [facility] Comment on above: Performed By: #### G YOSEPH, LIPID #### [facility] [address] [address] [address] Danni Jacobs Cholesterol.total/C holesterol in HDL [Mass ratio] 2.1 {ratio} Normal [facility] Comment on above: Performed By: #### G YOSEPH, LIPID #### [facility] [address] [address] [address] Danni Jacobs HDL NORMAL > or = 60 mg/dl - LO W CARDIOVASCULAR RISK <40 mg/dl - HIGH CARDIOVASCULAR RISK Normal [facility] Comment on above: Performed By: #### G YOSEPH, LIPID #### [facility] [address] [address] [address] Danni Jacobs LDL CALC NORMAL SEE BELOW Normal [facility] Comment on above: Result Comment: <100 mg/dl OPTIMAL 100 - 129 mg/dl NEAR OR ABOVE OPTIMAL 130 - 159 mg/dl BORDERLINE HIGH 160 - 189 mg/dl HIGH >190 mg/dl VERY HIGH Performed By: #### G YOSEPH, LIPID #### [facility] [address] [address] [address] Danni Jacobs Triglyceride [Mass/Vol] 59 mg/dL Normal <=150 [facility] Comment on above: Performed By: #### G YOSEPH, LIPID #### [facility] [address] [address] [address] Danni Jacobs VLDL CALC 11.8 mg/dL Normal [facility] Comment on above: Performed By: #### G YOSEPH, LIPID #### [facility] [address] [address] [address] Danni Jacobs Vital Signs Date Time Vital Sign Value Performing Clinician Faci lity 12-01-2023 16:10-0400 Body height 170.18 cm Beverly Gary Work Phone: [facility] 12-01-2023 16:10-0400 Body mass index (BMI) [Ratio] 19.5 kg/m2 Beverly Gary Work Phone: [facility] 12-01-2023 16:10-0400 Body weight 56.69 kg Beverly Gary Work Phone: [facility] 12-01-2023 16:10-0400 Diastolic blood pressure 78 mm[Hg] Beverly Gary Work Phone: [facility] 12-01-2023 16:10-0400 Systolic blood pressure 112 mm[Hg] Beverly Gary Work Phone: [facility] Encounters Encounter Date Encounter Type Care Provider Facility Start: 02-08-2024 End: 02-08-2024 ambulatory [facility] Start: 02-08-2024 ambulatory [facility] Start: 12-01-2023 End: 12-01-2023 ambulatory Beverly Gary Work Phone: [facility] Work Phone: Start: 12-01-2023 End: 12-01-2023 Patient encounter procedure Beverly Gary Work Phone: [facility] Work Phone: Start: 11-30-2023 Non-patient / Non-visit Beverly Gary Work Phone: [facility] Work Phone: Start: 11-23-2023 Non-patient / Non-visit Beverly Gary Work Phone: [facility] Work Phone: Start: 11-17-2023 Non-patient / Non-visit Beverly Gary Work Phone: [facility] Work Phone: Start: 11-09-2023 End: 11-09-2023 ambulatory EMELY HUNTER Not Available Start: 11-09-2023 Non-patient / Non-visit Beverly Gary Work Phone: [facility] Work Phone: Start: 10-23-2023 End: 10-23-2023 ambulatory Beverly Gary Facility:[facility] Start: 10-23-2023 End: 10-23-2023 ambulatory Beverly Gary Work Phone: [facility] Work Phone: Start: 10-23-2023 End: 10-23-2023 Departed Referred Beverly Gary Work Phone: [facility] Start: 10-23-2023 Non-patient / Non-visit Beverly Gary Work Phone: [facility] Work Phone: Start: 10-12-2023 Non-patient / Non-visit Beverly Gary Work Phone: [facility] Work Phone: Start: 10-07-2023 Non-patient / Non-visit Beverly Gary Work Phone: [facility] Work Phone: Start: 10-05-2023 Non-patient / Non-visit Beverly Gary Work Phone: [facility] Work Phone: Start: 03-03-2022 End: 03-03-[address] BEVERLY VEGA Facility:[facility] Start: 04-28-2021 Encounter for genera l adult medical examination without abnormal findings DR DALTON LOGAN [facility] Start: 04-22-2021 End: 04-23-[address] DALTON LOGAN Facility:[facility] Start: 04-22-2021 End: 04-23-2021 Encounter for general adult medical examination without abnormal findings DR DALTON LOGAN Facility:[facility] Plan of Treatment Date Care Activity Detail Author XR Hip - left 2 [facility] Payers Date Payer Category Payer Unknown [id number] 2.16.84 [id number] 1987 Unknown [id number] 2.16.84 [id number] 1987 Unknown [id number] 2.16.84 [id number] 1987 Unknown [id number] 2.16.8 [id number] 1987 Unknown [id number] 2.16.8 [id number] 1959 Unknown [id number] Social History Date Type Detail Facility Tobacco smoking stat [facility] Unknown if ever smoked [facility] Work Phone: Start: 1985 Sex Assigned At Female F [facility] Evaluation note Note Date & Type Note Facility Evaluation note No assessment information availa ble [facility] Work Phone: Evaluation note Note Date & Type Note Facility Evaluation note Diagnosis Onset Date Left hip pain acute [facility] Work Phone: Summary Purpose Family History No Family History Records FoundNo Family History Records FoundNo Family History Records FoundNo Family History Records Found Advance Directives No Advanced Directives Records Found Advance Directive Response Recorded Date/ Time Advance Directives No November 30 3:47pm Additional Source Comments INFORMATION SOURCE (unrecogn ized section and content) DATE CREATED AUTHOR 03/22/2022 [facility] DATE CREATED AUTHOR AUTHOR'S ORGANIZ ATION 10/28/2023 [facility] DATE CREATED AUTHOR AUTHOR'S ORGANIZ ATION 11/11/2023 [facility] EPIC DATE CREATED AUTHOR AUTHOR'S ORGANIZ ATION 02/08/2024 [facility] Care Teams (unrecognized sec tion and content) Team Status: Active Member Role Status Dates Provider Conversion Primary Care Provider Active Start: October 05, 2023 Joann Granados MD Attending Provider Active St art: October 05, 2023 Team Status: Active Member Role Status Dates Provider Conversion Primary Care Provider Active Start: October 07, 2023 Joann Granados MD Attending Provider Active St art: October 07, 2023 Team Status: Active Member Role Status Dates Provider Conversion Primary Care Provider Active Start: October 12, 2023 Joann Granados MD Attending Provider Active St art: October 12, 2023 Team Status: Active Member Role Status Dates Provider Conversion Primary Care Provider Active Start: October 23, 2023 Beverly Vega Attending Provider Active Start: Ashish drake 2023 Team Status: Inactive Member Role Status Dates Beverly Vega Attending Provider Active Start: Ashish drake 2023 End: October 23, 2023 Team Status: Active Member Role Status Dates Joann Granados MD Primary Care Provider Active Team Status: Active Member Role Status Dates Emely Hunter PA-C Attending Provider Active Start : November 09, 2023 Team Status: Active Member Role Status Dates Emely Hunter PA-C Attending Provider Active Start : November 17, 2023 Team Status: Active Member Role Status Dates Emely Hunter PA-C Attending Provider Active Start : November 23, 2023 Team Status: Active Member Role Status Dates Beverly Vega Attending Provider Active Start: 2023 Team Status: Inactive Member Role Status Dates Joann Granados MD Primary Care Provide r, Attending Provider Active Start: December 01, 2023 End: December 01, 2023 Goals (unrecognized section and content) Goals may be documented in a n alternate sectionGoals may be documented in an alternate section FOR RECORDS PERTAINING TO PATIENTS [...] BE BASED ON THE PRIMARY CLINICAL RECORDS. [employer] [facility]. provides no warranty or guarantee of the accuracy or completeness of information in this document.
== END 2024-02-12 10:04 | disposition home or self-care (01) ==
LOC: NOMS 10:03
PROVIDERS: PCP Family Medicine; Visit Provider Obstetrics & Gynecology
DX: Z34.91 Encounter for supervision of normal pregnancy, unspecified, first trimester (principal); Z3A.08 8 weeks gestation of pregnancy; N92.6 Irregular menstruation, unspecified
CPT/HCPCS: 76817

== ENCOUNTER 2024-02-16 11:26 | Outpatient (OUT) | payer OTHER, SELFPAY ==
--- OUTSIDE RECORDS SUMMARY | 2024-02-16 11:30 | XMS_ITS | CCD ---
Author Organization [facility] Informat ion Partnership [facility] Care Team Providers Care Physician Relations Specialist Name Role Phone DOREEN, DR HOFFMAN Attending Unavailable DARWIN, DR JOANN Ramirez Primary Care Unavailable DOREEN, DR HOFFMAN Admitting Unavailable DOREEN, DR HOFFMAN Consulting Unavailable GARY, DR PAUL Admitting Unavailable GARY, DR PAUL Consulting Unavailable GARY, DR PAUL Attending Unavailable DARWIN, DR JOANN Ramirez Primary Care Unavailable Beverly Vega Attending Unavailable Beverly Vega Admitting Unavailable Beverly Vega Attending Provider [phone] ASHLEY SHIN Attending Unavailable JOANN GRANADOS Referring Unavailable JOANN GRANADOS Primary Care Unavailable EMELY HUNTER Attending Unavailable TERE CUEVAS Attending Unavailable ASHLEY SHIN Referring Unavailable Allergies Allergy Classification Reported Allergen(s) Allergy Type Date of Onset Reaction(s) Facility (3 sources) Amoxicillin; Translations: [AMOXICILLIN] Drug Allergy 06-22-2022 [facility] (2 sources) 12 Hour Decongestant Allergy to substance 06-22-2022 [facility] Problems Problem Classification Problem Date Documented [...] 11-29 Human Chorionic Gonadotropin, Quant 2 mIU/mL [facility] Comment on above: 5-50 0.2-1 HDNC91-74 0 1-2 YUNRV948-3,000 2-3 LBDFB137-22,000 3-4 WEEKS1,000-50,000 4-5 WEEKS10,000-100,000 5-6 WEEKS15,000-200,000 6-8 WEEKS10,000-100,000 2-3 MONTHS No Panel Informationon 11-22 Human Chorionic Gonadotropin, Quant 3 mIU/mL [facility] Comment on above: 5-50 0.2-1 DSXV32-02 0 1-2 KDRIV632-4,000 2-3 JZPDO572-83,000 3-4 WEEKS1,000-50,000 4-5 WEEKS10,000-100,000 5-6 WEEKS15,000-200,000 6-8 WEEKS10,000-100,000 2-3 MONTHS No Panel Informationon 11-16 Human Chorionic Gonadotropin, Quant 6 mIU/mL [facility] Comment on above: 5-50 0.2-1 GXDW54-11 0 1-2 QKKGC584-4,000 2-3 ORMBL823-70,000 3-4 WEEKS1,000-50,000 4-5 WEEKS10,000-100,000 5-6 WEEKS15,000-200,000 6-8 WEEKS10,000-100,000 2-3 MONTHS No Panel Informationon 11-08 Human Chorionic Gonadotropin, Quant 27 mIU/mL [facility] Comment on above: 5-50 0.2-1 OLXZ33-76 0 1-2 ENCHP703-6,000 2-3 UZAYW211-24,000 3-4 WEEKS1,000-50,000 4-5 WEEKS10,000-100,000 5-6 WEEKS15,000-200,000 6-8 WEEKS10,000-100,000 2-3 MONTHS Basophils Auto (Bld) [#/Vol] on 10-23-2023 Basophils (Bld) [#/Vol] 0.0 10 3/uL 0.0-0.1 [facility] Basophils/100 WBC Auto (Bld) on 10-23-2023 Basophils/100 WBC (Bld) 0.8 % 0.2-2.0 [facility] Eosinophils/100 WBC Auto (Bl d)on 10-23-2023 Eosinophils/100 WBC (Bld) 1.4 % 0.9-7.0 [facility] Erythrocyte distribution wid th Auto (RBC) [Ratio]on 10-23-2023 Erythrocyte distribution width (RBC) [Ratio] 11.9 % 11.0-15.0 [facility] Hematocrit Auto (Bld) [Volum e fraction]on 10-23-2023 Hematocrit (Bld) [Volume fraction] 36.0 % 36.0-48.0 [facility] Hemoglobin [Mass/volume] in Bloodon 10-23-2023 Hemoglobin (Bld) [Mass/Vol] 11.8 g/dL 12.0-16.0 [facility] Krzysztof 10-23-2023 L Specimen: [id number] Received: 10/26/23 Status: [facility] Num: [id number] Spec Type: Surgical Subm Dr: Beverly Vega Tissues: A Products of Conception - Spontaneous or Missed (POC) Procedures: HE/3, Gross/Micro L4 Age/ Patient Sex Location Account Attending Physician Tiffanie Elizabeth 37/F LABELL [id number] Beverly Vega SPEC NUM: [id number] RECD: 10/26/23 STATUS: [facility] NUM: [id number] JANIE: 10/23/[address]: Beverly Vega ENTERED: 10/26/[address]: Héctor,Lab SPEC TYPE: Surgical DEPT: POOJA [...] cm possible area of villous tissue identified. Nursing Services Manager sections to include the possible villous tissue are submitted in A1?A3. Clinical history: Missed CPT Codes 81653 ---- ---- Specimen: [id number] Received: 10/26/23 Status: [facility] Num: [id number] Spec Type: Surgical Subm Dr: Beverly Vega Tissues: A Products of Conception - Spontaneous or Missed (POC) Procedures: KANDI3, Gross/Micro L4 ---- Patient: Tiffanie Elizabeth [id number] (Continued) ---- Signed (signature on file) Dante Palacios MD 10/27/23 1511 Normal [facility] - Hematology and Cell countson 10-23-2023 Immature granulocytes/100 WBC (Bld) 0.2 % 0.0-0.5 [facility] Leukocytes [#/volume] correc leroy for nucleated erythrocytes in Blood by Automated counon 10-23-2023 WBC corrected for nucl RBC Auto (Bld) [#/Vol] 5.1 10 3/uL 4.0-11.0 [facility] Lymphocytes Auto (Bld) [#/Vo l]on 10-23-2023 Lymphocytes (Bld) [#/Vol] 1.7 10 3/uL 1.2-3.8 [facility] Lymphocytes/100 WBC Auto (Bl d)on 10-23-2023 Lymphocytes/100 WBC (Bld) 32.8 % 20.5-60.0 [facility] MCH Auto (RBC) [Entitic mass ]on 10-23-2023 MCH (RBC) [Entitic mass] 31.1 pg 26.7-34.0 [facility] MCHC Auto (RBC) [Mass/Vol]on 10-23-2023 MCHC (RBC) [Mass/Vol] 32.8 g/dL 29.9-35.2 [facility] MCV Auto (RBC) [Entitic vol] on 10-23-2023 MCV (RBC) [Entitic vol] 95.0 fL 81.0-99.0 [facility] Monocytes Auto (Bld) [#/Vol] on 10-23-2023 Monocytes (Bld) [#/Vol] 0.3 10 3/uL 0.3-0.8 [facility] Monocytes/100 WBC Auto (Bld) on 10-23-2023 Monocytes/100 WBC (Bld) 5.5 % 1.7-12.0 [facility] Neutrophils Auto (Bld) [#/Vo l]on 10-23-2023 Neutrophils (Bld) [#/Vol] 3.0 10 3/uL 1.4-6.5 [facility] Neutrophils/100 WBC Auto (Bl d)on 10-23-2023 Neutrophils/100 WBC (Bld) 59.3 % 43.0-75.0 [facility] No Panel Informationon 10-22 Eosinophils # (Auto) 0.1 10 3/uL 0.0-0.7 [facility] Immature Granulocyte # (Auto) 0.01 10 3/uL 0.00-0.03 [facility] Platelet mean volume Auto (B ld) [Entitic vol]on 10-23-2023 Platelet mean volume (Bld) [Entitic vol] 9.0 fL 9.5-13.5 [facility] Platelets Auto (Bld) [#/Vol] on 10-23-2023 Platelets (Bld) [#/Vol] 182 10 3/uL 150-450 [facility] RBC Auto (Bld) [#/Vol]on RBC (Bld) [#/Vol] 3.79 10 6/uL 4.20-5.40 [facility] No Panel Informationon 10-11 Human Chorionic Gonadotropin, Quant 09596 mIU/mL [facility] Comment on above: 5-50 0.2-1 EQXO91-35 0 1-2 NFSXL224-1,000 2-3 VJJWK476-95,000 3-4 WEEKS1,000-50,000 4-5 WEEKS10,000-100,000 5-6 WEEKS15,000-200,000 6-8 WEEKS10,000-100,000 2-3 MONTHS No Panel Informationon 10-06 Human Chorionic Gonadotropin, Quant 36016 mIU/mL [facility] Comment on above: 5-50 0.2-1 FSPP15-22 0 1-2 QPCET314-4,000 2-3 RDTIS561-15,000 3-4 WEEKS1,000-50,000 4-5 WEEKS10,000-100,000 5-6 WEEKS15,000-200,000 6-8 WEEKS10,000-100,000 2-3 MONTHS No Panel Informationon 10-04 Human Chorionic Gonadotropin, Quant 76185 mIU/mL [facility] Comment on above: 5-50 0.2-1 VHUM47-34 0 1-2 NUWHC641-7,000 2-3 BVQTQ954-02,000 3-4 WEEKS1,000-50,000 4-5 WEEKS10,000-100,000 5-6 WEEKS15,000-200,000 6-8 WEEKS10,000-100,000 2-3 MONTHS PAP ACOG PANEL 2: 30 to 65on 03-11-2022 . . Normal [facility] Comment on above: Result Comment: Perf ormed at: WB Performed By: #### [id number] #### [facility] [address] [place] [address] Dr. Danni Jacobs Age Gdln ACOG Testing 30-65 Normal [facility] Comment on above: Performed By: #### [id number] #### [facility] [address] [address] [address] Danni Jacobs DIAGNOSIS: Comment Normal [facility] Comment on above: Result Comment: NEGA TIVE FOR INTRAEPITHELIAL LESION OR MALIGNANCY. THIS SPECIMEN WAS RESCREENED PART OF OUR CUSTOM STUDIO COORDINATOR PROGRAM. Performed at: WB Performed By: #### [id number] #### [facility] [address] [place] [address] Dr. Danni Jacobs HPV Aptima Negative Normal Negative [facility] Comment on above: Result Comment: This nucleic acid amplification test detects fourteen high-risk HPV types (16,18,31,33,35,39,45,51,52,56,58,59,66,68) without differentiation. Performed at: =G Performed By: #### [id number] #### [facility] [address] [place] [address] Dr. Danni Jacobs Methodology: Comment Normal [facility] Comment on above: Result Comment: This liquid based ThinPrep(R) pap test was screened with the use of an image guided system. Performed at: WB Performed By: #### [id number] #### [facility] [address] [place] [address] Dr. Danni Jacobs Note: Comment Normal [facility] Comment on above: Result Comment: The Pap smear is a screening test designed to aid in the detection of premalignant and malignant conditions of the uterine cervix. It is not a diagnostic procedure and should not be used as the sole means of detecting cervical cancer. Both false-positive and false-negative reports do occur. . Performed at: WB Performed By: #### [id number] #### [facility] [address] [place] [address] Dr. Danni Jacobs Performed by: Comment Normal [facility] Comment on above: Result Comment: Rocky Hull, Deliver Driver (ASCP) Performed at: WB Performed By: #### [id number] #### [facility] [address] [place] [address] Dr. Danni Jacobs QC reviewed by: Comment Normal [facility] Comment on above: Result Comment: Betzaida Ge, Supervisory Deliver Driver (ASCP) Performed at: WB Performed By: #### [id number] #### [facility] [address] [place] [address] Dr. Danni Jacobs Specimen adequacy: Comment Normal [facility] Comment on above: Result Comment: Sati sfactory for evaluation. Endocervical and/or squamous metaplastic cells (endocervical component) are present. Performed at: WB Performed By: #### [id number] #### [facility] [address] [place] [address] Dr. Danni Jacobs GLUCOSE BLOODon 04-22-2021 Glucose [Mass/Vol] 99 mg/dL Normal 74-106 [facility] Comment on above: Performed By: #### G YOSEPH, LIPID #### [facility] [address] [place] [address] Dr. Danni Jacobs LIPID PROFILEon 04-22-2021 CHOL-HDL RATIO NORM SEE BELOW Normal [facility] Comment on above: Result Comment: 3.3 - 4.4 LOW RISK 4.4 - 7.1 AVERAGE RISK 7.1 - 11.0 MODERATE RISK >11.0 HIGH RISK Performed By: #### G YOSEPH, LIPID #### [facility] [address] [address] [address] Danni Jacobs Cholesterol [Mass/Vol] 157 mg/dL Normal <=200 [facility] Comment on above: Performed By: #### G YOSPEH, LIPID #### [facility] [address] [address] [address] Danni Jacobs Cholesterol in HDL [Mass/Vol] 74 mg/dL Normal [facility] Comment on above: Performed By: #### G YOSEPH, LIPID #### [facility] [address] [address] [address] Danni Jacobs Cholesterol in LDL [Mass/Vol] 71.2 mg/dL Normal [facility] Comment on above: Performed By: #### G YOSEPH, LIPID #### [facility] [address] [place] [address] Dr. Danni Jacobs Cholesterol.total/C holesterol in HDL [Mass ratio] 2.1 {ratio} Normal [facility] Comment on above: Performed By: #### G YOSEPH, LIPID #### [facility] [address] [place] [address] Dr. Danni Jacobs HDL NORMAL > or = 60 mg/dl - LO W CARDIOVASCULAR RISK <40 mg/dl - HIGH CARDIOVASCULAR RISK Normal [facility] Comment on above: Performed By: #### G YOSEPH, LIPID #### [facility] [address] [place] [address] Dr. Danni Jacobs LDL CALC NORMAL SEE BELOW Normal [facility] Comment on above: Result Comment: <100 mg/dl OPTIMAL 100 - 129 mg/dl NEAR OR ABOVE OPTIMAL 130 - 159 mg/dl BORDERLINE HIGH 160 - 189 mg/dl HIGH >190 mg/dl VERY HIGH Performed By: #### G YOSEPH, LIPID #### [facility] [address] [place] [address] Dr. Danni Jacobs Triglyceride [Mass/Vol] 59 mg/dL Normal <=150 [facility] Comment on above: Performed By: #### G YOSEPH, LIPID #### [facility] [address] [address] [address] Danni Jacobs VLDL CALC 11.8 mg/dL Normal [facility] Comment on above: Performed By: #### G YOSEPH, LIPID #### [facility] [id number] Danni Jcaobs Vital Signs Date Time Vital Sign Value Performing Clinician Faci lity 12-01-2023 16:10-0400 Body height 170.18 cm Beverly Gary Work Phone: [facility] 12-01-2023 16:10-0400 Body mass index (BMI) [Ratio] 19.5 kg/m2 Beverly Gary Work Phone: [facility] 12-01-2023 16:10-0400 Body weight 56.69 kg Beverly Gary Work Phone: [facility] 12-01-2023 16:10-0400 Diastolic blood pressure 78 mm[Hg] Beverly Gary Work Phone: [facility] 12-01-2023 16:10-0400 Systolic blood pressure 112 mm[Hg] Beverly Gary Work Phone: [facility] Encounters Encounter Date Encounter Type Care Provider Facility Start: 02-12-2024 End: 02-12-2024 ambulatory EMELY HUNTER Not Available Start: 02-10-2024 End: 02-11-2024 ambulatory TERE CUEVAS Not Available Start: 02-08-2024 End: 02-08-2024 ambulatory [facility] Start: 02-08-2024 ambulatory [facility] Start: 12-01-2023 End: 12-01-2023 ambulatory Beverly Gary Work Phone: [facility] Work Phone: Start: 12-01-2023 End: 12-01-2023 Patient encounter procedure Beverly Gary Work Phone: [facility] Work Phone: Start: 11-30-2023 Non-patient / Non-visit Beverly Gary Work Phone: [facility] Work Phone: Start: 11-23-2023 Non-patient / Non-visit Beverly Gary Work Phone: [facility] Work Phone: Start: 11-17-2023 Non-patient / Non-visit Beverly Gary Work Phone: [facility] Work Phone: Start: 11-09-2023 Non-patient / Non-visit Beverly Gary Work Phone: [facility] Work Phone: Start: 11-09-2023 End: 11-09-2023 ambulatory EMELY HUNTER Not Available Start: 10-23-2023 End: 10-23-2023 ambulatory Beverly Gary Facility:[facility] Start: 10-23-2023 End: 10-23-2023 ambulatory Beverly Gary Work Phone: [facility] Work Phone: Start: 10-23-2023 End: 10-23-2023 Departed Referred Beverly Gary Work Phone: [facility] Start: 10-23-2023 Non-patient / Non-visit Beverly Gary Work Phone: [facility] Work Phone: Start: 10-12-2023 Non-patient / Non-visit Beverly Gary Work Phone: [facility] Work Phone: Start: 10-07-2023 Non-patient / Non-visit Beverly Gary Work Phone: [facility] Work Phone: Start: 10-05-2023 Non-patient / Non-visit Beverly Vega Work Phone: [facility] Work Phone: Start: 03-03-2022 End: 03-03-[address] BEVERLY VEGA Facility:[facility] Start: 04-28-2021 Encounter for genera l adult medical examination without abnormal findings DR DALTON LOGAN [facility] Start: 04-22-2021 End: 04-23-[address] DALTON LOGAN Facility:[facility] Start: 04-22-2021 End: 04-23-2021 Encounter for general adult medical examination without abnormal findings DR DALTON LOGAN Facility:[facility] Plan of Treatment Date Care Activity Detail Author XR Hip - left 2 Views [facility] Payers Date Payer Category Payer Unknown [id number] 2.16.84 [id number] 1987 Unknown [id number] 2.16.84 [id number] 1987 Unknown [id number] 2.16.8 [id number] 1987 Unknown [id number] 2.16.8 [id number] 1987 Unknown [id number] 2.16.84 [id number] 1987 Unknown [id number] 2.16.84 [id number] 1987 Unknown [id number] 2.16.84 [id number] 1959 Unknown [id number] Social History Date Type Detail [facility] Work Phone: Start: 1985 Sex Assigned At Female F [facility] Evaluation note Note Date & Type Note Facility Evaluation note No assessment information availa ble [facility] Work Phone: Evaluation note Note Date & Type Note Facility Evaluation note Diagnosis Onset Date Left hip pain acute [facility] Work Phone: Summary Purpose Family History No [...] CREATED AUTHOR AUTHOR'S ORGANIZ ATION 10/28/2023 [facility] DATE CREATED AUTHOR AUTHOR'S ORGANIZ ATION 02/08/2024 [facility] DATE CREATED AUTHOR AUTHOR'S ORGANIZ ATION 02/12/2024 [facility] Care Teams (unrecognized [...] Dates Beverly Vega Attending Provider Active Start: Pamela robertson 2023 Team Status: Inactive Member Role Status [...] BE BASED ON THE PRIMARY CLINICAL RECORDS. [employer] [facility]. provides no warranty or guarantee of the accuracy or completeness of information in this document.
[2024-02-16 11:46] LABS: Basophils Percent Auto 0.5 % (0.2-2.0); Eosinophils Absolute Auto 0.1 10^3/uL (0.0-0.7); Eosinophils Percent Auto 0.9 % (0.9-7.0); Hematocrit 37.3 % (36.0-48.0); Hemoglobin 12.7 g/dL (12.0-16.0); Immature Granulocytes Abs Auto 0.02 10^3/uL (0.00-0.03); Immature Granulocytes Pct Auto 0.3 % (0.0-0.5); Lymphocytes Absolute Auto 1.8 10^3/uL (1.2-3.8); Lymphocytes Percent Auto 27.4 % (20.5-60.0); Mean Corpuscular Hemoglobin 32.2 pg (26.7-34.0); Mean Corpuscular Volume 94.4 fL (81.0-99.0); Mean Platelet Volume 9.4 fL (9.5-13.5); Monocytes Absolute Auto 0.3 10^3/uL (0.3-0.8); Monocytes Percent Auto 5.1 % (1.7-12.0); Neutrophils Absolute Auto 4.4 10^3/uL (1.4-6.5); Neutrophils Percent Auto 65.8 % (43.0-75.0); Platelet Count 215 10^3/uL (150-450); Red Blood Count 3.95 10^6/uL (4.20-5.40); Red Cell Distribution Width 11.9 % (11.0-15.0); White Blood Count 6.6 10^3/uL (4.0-11.0)
[2024-02-16 12:15] LABS: Estimated Average Glucose 94 mg/dL; Glycohemoglobin A1C 4.9 % (4.5-6.2)
[2024-02-17 06:09] LABS: HBsAg Screen Negative (Negative); HCV Ab Non Reactive (Non Reactive); HIV Ab/p24 Ag Screen Non Reactive (Non Reactive); Rubella Antibodies, IgG 3.94 index (Immune >0.99)
[2024-02-17 13:08] LABS: Rapid Plasma Reagin, Quant Non Reactive titer (NonRea<1:1)
== END 2024-02-16 11:27 | disposition home or self-care (01) ==
LOC: LAB 11:26
PROVIDERS: PCP Family Medicine; Visit Provider Obstetrics & Gynecology
DX: N92.6 Irregular menstruation, unspecified (principal)
CPT/HCPCS: 36415; 83036; 85025; 86592; 86762; 86803; 86850; 86900; 86901; 87086; 87340; 87389

== ENCOUNTER 2024-02-26 12:59 | Outpatient (OUT) | payer OTHER, SELFPAY ==
--- OUTSIDE RECORDS SUMMARY | 2024-02-26 13:23 | XMS_ITS | CCD ---
Author Organization [facility] Informat ion Partnership [facility] Care Team Providers Care Lab Specialist Name Role Phone DOREEN, DR HOFFMAN Attending Unavailable DARWIN, DR JOANN Ramirez Primary Care Unavailable DOREEN, DR HOFFMAN Admitting Unavailable DOREEN, DR HOFFMAN Consulting Unavailable GARY, DR PAUL Admitting Unavailable GARY, DR PAUL Consulting Unavailable GARY, DR PAUL Attending Unavailable DARWIN, DR JOANN Ramirez Primary Care Unavailable Beverly Vega Attending Unavailable Beverly Vega Admitting Unavailable Beverly Vega Attending Provider ASHLEY SHIN Attending Unavailable JOANN GRANADOS Referring Unavailable JOANN GRANADOS Primary Care Unavailable EMELY HUNTER Attending Unavailable TERE CUEVAS Attending Unavailable ASHLEY SHIN Referring Unavailable TERE CUEVAS Attending Unavailable ASHLEY SHIN Referring Unavailable Allergies Allergy Classification Reported Allergen(s) Allergy Type Date of Onset Reaction(s) Facility (3 sources) Amoxicillin; Translations: [AMOXICILLIN] Drug Allergy 06-22-2022 [facility] (2 sources) 12 Hour Decongestant Allergy to substance 06-22-2022 [facility] Problems Problem Classification Problem Date Documented [...] 11-29 Human Chorionic Gonadotropin, Quant 2 mIU/mL [facility] Comment on above: 5-50 0.2-1 NDSJ31-07 0 1-2 MKOWV102-3,000 2-3 HGOJL686-42,000 3-4 WEEKS1,000-50,000 4-5 WEEKS10,000-100,000 5-6 WEEKS15,000-200,000 6-8 WEEKS10,000-100,000 2-3 MONTHS No Panel Informationon 11-22 Human Chorionic Gonadotropin, Quant 3 mIU/mL [facility] Comment on above: 5-50 0.2-1 LLXR21-86 0 1-2 XKGKQ963-2,000 2-3 BZHED790-23,000 3-4 WEEKS1,000-50,000 4-5 WEEKS10,000-100,000 5-6 WEEKS15,000-200,000 6-8 WEEKS10,000-100,000 2-3 MONTHS No Panel Informationon 11-16 Human Chorionic Gonadotropin, Quant 6 mIU/mL [facility] Comment on above: 5-50 0.2-1 BLTE66-72 0 1-2 YPJDO718-9,000 2-3 DRMKD656-28,000 3-4 WEEKS1,000-50,000 4-5 WEEKS10,000-100,000 5-6 WEEKS15,000-200,000 6-8 WEEKS10,000-100,000 2-3 MONTHS No Panel Informationon 11-08 Human Chorionic Gonadotropin, Quant 27 mIU/mL [facility] Comment on above: 5-50 0.2-1 JBQS94-77 0 1-2 FIAXA717-4,000 2-3 IENWN113-06,000 3-4 WEEKS1,000-50,000 4-5 WEEKS10,000-100,000 5-6 WEEKS15,000-200,000 6-8 WEEKS10,000-100,000 2-3 MONTHS Basophils Auto (Bld) [#/Vol] on 10-23-2023 Basophils (Bld) [#/Vol] 0.0 10 3/uL 0.0-0.1 [facility] Basophils/100 WBC Auto (Bld) on 10-23-2023 Basophils/100 WBC (Bld) 0.8 % 0.2-2.0 [facility] Eosinophils/100 WBC Auto (Bl d)on 10-23-2023 Eosinophils/100 WBC (Bld) 1.4 % 0.9-7.0 [facility] Erythrocyte distribution wid th Auto (RBC) [Ratio]on 10-23-2023 Erythrocyte distribution width (RBC) [Ratio] 11.9 % 11.0-15.0 [facility] Hematocrit Auto (Bld) [Volum e fraction]on 10-23-2023 Hematocrit (Bld) [Volume fraction] 36.0 % 36.0-48.0 [facility] Hemoglobin [Mass/volume] in Bloodon 10-23-2023 Hemoglobin (Bld) [Mass/Vol] 11.8 g/dL 12.0-16.0 [facility] Krzysztof 10-23-2023 L Specimen: [id number] Received: 10/26/23 Status: MAIA Newell Num: [id number] Spec Type: Surgical Subm Dr: Beverly Vega Tissues: A Products of Conception - Spontaneous or Missed (POC) Procedures: HE/3, Gross/Micro L4 Age/ Patient Sex Location Account Attending Physician Tiffanie Elizabeth 37/F [facility] [id number] Beverly Vega SPEC NUM: [id number] RECD: 10/26/23 STATUS: MAIA NEWELL NUM: [id number] JANIE: 10/23/23-[address]: Beverly Vega ENTERED: 10/26/23 OTHR [...] cm possible area of villous tissue identified. Plate Grinder sections to include the possible villous tissue are submitted in A1?A3. Clinical history: Missed CPT Codes 55000 ---- ---- Specimen: [id number] Received: 10/26/23 Status: MAIA Newell Num: [id number] Spec Type: Surgical Subm Dr: Beverly Vega Tissues: A Products of Conception - Spontaneous or Missed (POC) Procedures: HE/3, Gross/Micro L4 ---- Patient: Tiffanie Elizabeth [id number] (Continued) ---- Signed (signature on file) Dante Palacios MD 10/27/23 1511 Normal [facility] Laboratory - Hematology and Cell countson 10-23-2023 Immature granulocytes/100 WBC (Bld) 0.2 % 0.0-0.5 [facility] Leukocytes [#/volume] correc leroy for nucleated erythrocytes in Blood by Automated counon 10-23-2023 WBC corrected for nucl RBC Auto (Bld) [#/Vol] 5.1 10 3/uL 4.0-11.0 [facility] Lymphocytes Auto (Bld) [#/Vo l]on 10-23-2023 Lymphocytes (Bld) [#/Vol] 1.7 10 3/uL 1.2-3.8 [facility] Lymphocytes/100 WBC Auto (Bl d)on 10-23-2023 Lymphocytes/100 WBC (Bld) 32.8 % 20.5-60.0 [facility] MCH Auto (RBC) [Entitic mass ]on 10-23-2023 MCH (RBC) [Entitic mass] 31.1 pg 26.7-34.0 [facility] MCHC Auto (RBC) [Mass/Vol]on 10-23-2023 MCHC (RBC) [Mass/Vol] 32.8 g/dL 29.9-35.2 [facility] MCV Auto (RBC) [Entitic vol] on 10-23-2023 MCV (RBC) [Entitic vol] 95.0 fL 81.0-99.0 [facility] Monocytes Auto (Bld) [#/Vol] on 10-23-2023 Monocytes (Bld) [#/Vol] 0.3 10 3/uL 0.3-0.8 [facility] Monocytes/100 WBC Auto (Bld) on 10-23-2023 Monocytes/100 WBC (Bld) 5.5 % 1.7-12.0 [facility] Neutrophils Auto (Bld) [#/Vo l]on 10-23-2023 Neutrophils (Bld) [#/Vol] 3.0 10 3/uL 1.4-6.5 [facility] Neutrophils/100 WBC Auto (Bl d)on 10-23-2023 Neutrophils/100 WBC (Bld) 59.3 % 43.0-75.0 [facility] No Panel Informationon 10-22 Eosinophils # (Auto) 0.1 10 3/uL 0.0-0.7 [facility] Immature Granulocyte # (Auto) 0.01 10 3/uL 0.00-0.03 [facility] Platelet mean volume Auto (B ld) [Entitic vol]on 10-23-2023 Platelet mean volume (Bld) [Entitic vol] 9.0 fL 9.5-13.5 [facility] Platelets Auto (Bld) [#/Vol] on 10-23-2023 Platelets (Bld) [#/Vol] 182 10 3/uL 150-450 [facility] RBC Auto (Bld) [#/Vol]on RBC (Bld) [#/Vol] 3.79 10 6/uL 4.20-5.40 [facility] No Panel Informationon 10-11 Human Chorionic Gonadotropin, Quant 08899 mIU/mL [facility] Comment on above: 5-50 0.2-1 BJFT63-28 0 1-2 IHTRI855-7,000 2-3 DFSSS039-27,000 3-4 WEEKS1,000-50,000 4-5 WEEKS10,000-100,000 5-6 WEEKS15,000-200,000 6-8 WEEKS10,000-100,000 2-3 MONTHS No Panel Informationon 10-06 Human Chorionic Gonadotropin, Quant 48245 mIU/mL [facility] Comment on above: 5-50 0.2-1 SLVV50-84 0 1-2 BJZEI373-2,000 2-3 KNYMK091-96,000 3-4 WEEKS1,000-50,000 4-5 WEEKS10,000-100,000 5-6 WEEKS15,000-200,000 6-8 WEEKS10,000-100,000 2-3 MONTHS No Panel Informationon 10-04 Human Chorionic Gonadotropin, Quant 03888 mIU/mL [facility] Comment on above: 5-50 0.2-1 ZMGA29-00 0 1-2 UTAHH526-3,000 2-3 NPABC673-32,000 3-4 WEEKS1,000-50,000 4-5 WEEKS10,000-100,000 5-6 WEEKS15,000-200,000 6-8 WEEKS10,000-100,000 2-3 MONTHS PAP ACOG PANEL 2: 30 to 65on 03-11-2022 . . Normal [facility] Comment on above: Result Comment: Perf ormed at: WB Performed By: #### [id number] #### [facility] [address] [place] [address] Dr. Danni Jacobs Age Gdln ACOG Testing - Normal [facility] Comment on above: Performed By: #### [id number] #### [facility] [address] [place] [address] Dr. Danni Jacobs DIAGNOSIS: Comment Normal [facility] Comment on above: Result Comment: NEGA TIVE FOR INTRAEPITHELIAL LESION OR MALIGNANCY. THIS SPECIMEN WAS RESCREENED PART OF OUR AGED OR DISABLED CARER PROGRAM. Performed at: WB Performed By: #### [id number] #### [facility] [address] [place] [address] Dr. Danni Jacobs HPV Aptima Negative Normal Negative [facility] Comment on above: Result Comment: This nucleic acid amplification test detects fourteen high-risk HPV types (16,18,31,33,35,39,45,51,52,56,58,59,66,68) without differentiation. Performed at: =G Performed By: #### [id number] #### [facility] [address] [place] [address] Dr. Danni Jacobs Methodology: Comment Normal [facility] Comment on above: Result Comment: This liquid based ThinPrep(R) pap test was screened with the use of an image guided system. Performed at: WB Performed By: #### [id number] #### [facility] [address] [place] [address] Dr. Danni Jacobs Note: Comment Normal [facility] Comment on above: Result Comment: The Pap smear is a screening test designed to aid in the detection of premalignant and malignant conditions of the uterine cervix. It is not a diagnostic procedure and should not be used as the sole means of detecting cervical cancer. Both false-positive and false-negative reports do occur. . Performed at: WB Performed By: #### [id number] #### [facility] [address] [place] [address] Dr. Danni Jacobs Performed by: Comment Normal [facility] Comment on above: Result Comment: Rocky Hull, Jalousies Installer (ASCP) Performed at: WB Performed By: #### [id number] #### [facility] [address] [place] [address] Dr. Danni Jacobs QC reviewed by: Comment Normal [facility] Comment on above: Result Comment: Betzaida Ge, Supervisory Jalousies Installer (ASCP) Performed at: WB Performed By: #### [id number] #### [facility] [address] [place] [address] Dr. Danni Jacobs Specimen adequacy: Comment Normal [facility] Comment on above: Result Comment: Sati sfactory for evaluation. Endocervical and/or squamous metaplastic cells (endocervical component) are present. Performed at: WB Performed By: #### [id number] #### [facility] [address] [place] [address] Dr. Danni Jacobs GLUCOSE BLOODon 04-22-2021 Glucose [Mass/Vol] 99 mg/dL Normal 74-106 [facility] Comment on above: Performed By: #### G YOSEPH, LIPID #### [facility] [address] [place] [address] Dr. Danni Jacobs LIPID PROFILEon 04-22-2021 CHOL-HDL RATIO NORM SEE BELOW Normal [facility] Comment on above: Result Comment: 3.3 - 4.4 LOW RISK 4.4 - 7.1 AVERAGE RISK 7.1 - 11.0 MODERATE RISK >11.0 HIGH RISK Performed By: #### G YOSEPH, LIPID #### [facility] [address] [address] [address] Danni Jacobs Cholesterol [Mass/Vol] 157 mg/dL Normal <=200 [facility] Comment on above: Performed By: #### G YOSEPH, LIPID #### [facility] [address] [address] [address] Danni Jacobs Cholesterol in HDL [Mass/Vol] 74 mg/dL Normal [facility] Comment on above: Performed By: #### G YOSEPH, LIPID #### [facility] [address] [place] [address] Dr. Danni Jacobs Cholesterol in LDL [Mass/Vol] 71.2 mg/dL Normal [facility] Comment on above: Performed By: #### G YOSEPH, LIPID #### [facility] [address] [address] [address] Danni Jacobs Cholesterol.total/C holesterol in HDL [Mass ratio] 2.1 {ratio} Normal [facility] Comment on above: Performed By: #### G YOSEPH, LIPID #### [facility] [address] [address] [address] Danni Jacobs HDL NORMAL > or = 60 mg/dl - LO W CARDIOVASCULAR RISK <40 mg/dl - HIGH CARDIOVASCULAR RISK Normal [facility] Comment on above: Performed By: #### G YOSEPH, LIPID #### [facility] [address] [place] [address] Dr. Danni Jacobs LDL CALC NORMAL SEE BELOW Normal [facility] Comment on above: Result Comment: <100 mg/dl OPTIMAL 100 - 129 mg/dl NEAR OR ABOVE OPTIMAL 130 - 159 mg/dl BORDERLINE HIGH 160 - 189 mg/dl HIGH >190 mg/dl VERY HIGH Performed By: #### G YOSEPH, LIPID #### [facility] [address] [address] [address] Danni Jacobs Triglyceride [Mass/Vol] 59 mg/dL Normal <=150 [facility] Comment on above: Performed By: #### G YOSEPH, LIPID #### [facility] [address], [place] [address] Dr. Danni Jacobs VLDL CALC 11.8 mg/dL Normal [facility] Comment on above: Performed By: #### G YOSEPH, LIPID #### [facility] [address], [place] [address] Dr. Danni Jacobs Vital Signs Date Time Vital Sign Value Performing Clinician Faci lity 12-01-2023 16:10-0400 Body height 170.18 cm Beverly Gary Work Phone: [facility] 12-01-2023 16:10-0400 Body mass index (BMI) [Ratio] 19.5 kg/m2 Beverly Gary Work Phone: [facility] 12-01-2023 16:10-0400 Body weight 56.69 kg Beverly Gary Work Phone: [facility] 12-01-2023 16:10-0400 Diastolic blood pressure 78 mm[Hg] Beverly Gary Work Phone: [facility] 12-01-2023 16:10-0400 Systolic blood pressure 112 mm[Hg] Beverly Gary Work Phone: [facility] Encounters Encounter Date Encounter Type Care Provider Facility Start: 02-17-2024 End: 02-17-2024 ambulatory TERE CUEVAS Not Available Start: 02-12-2024 End: 02-12-2024 ambulatory EMELY HUNTER Not Available Start: 02-10-2024 End: 02-11-2024 ambulatory TERE CUEVAS Not Available Start: 02-08-2024 End: 02-08-2024 ambulatory [facility] Start: 02-08-2024 ambulatory [facility] Start: 12-01-2023 End: 12-01-2023 ambulatory Beverly Gary Work Phone: [facility] Work Phone: Start: 12-01-2023 End: 12-01-2023 Patient encounter procedure Beverly Gary Work Phone: [facility] Work Phone: Start: 11-30-2023 Non-patient / Non-visit Beverly Gary Work Phone: [facility] Work Phone: Start: 11-23-2023 Non-patient / Non-visit Beverly Gary Work Phone: [facility] Work Phone: Start: 11-17-2023 Non-patient / Non-visit Beverly Gary Work Phone: [facility] Work Phone: Start: 11-09-2023 Non-patient / Non-visit Beverly Gary Work Phone: [facility] Work Phone: Start: 11-09-2023 End: 11-09-2023 ambulatory EMELY HUNTER Not Available Start: 10-23-2023 End: 10-23-2023 ambulatory Beverly Gary Facility:[facility] Start: 10-23-2023 End: 10-23-2023 ambulatory Beverly Gary Work Phone: [facility] Work Phone: Start: 10-23-2023 End: 10-23-2023 Departed Referred Beverly Gary Work Phone: [facility] Start: 10-23-2023 Non-patient / Non-visit Beverly Gary Work Phone: [facility] Work Phone: Start: 10-12-2023 Non-patient / Non-visit Beverly Gary Work Phone: [facility] Work Phone: Start: 10-07-2023 Non-patient / Non-visit Beverly Vega Work Phone: [facility] Work Phone: Start: 10-05-2023 Non-patient / Non-visit Beverly Vega Work Phone: [facility] Work Phone: Start: 03-03-2022 End: 03-03-[address] BEVERLY VEGA Facility:[facility] Start: 04-28-2021 Encounter for genera l adult medical examination without abnormal findings DR DALTON LOGAN [facility] Start: 04-22-2021 End: 04-23-[address] DALTON LOGAN Facility:[facility] Start: 04-22-2021 End: 04-23-2021 Encounter for general adult medical examination without abnormal findings DR DALTON LOGAN Facility:[facility] Plan of Treatment Date Care Activity Detail Author XR Hip - left 2 Views [facility] Payers Date Payer Category Payer Unknown [id number] 2.16.84 [id number] 1987 Unknown [id number] 2.16.84 [id number] 1987 Unknown [id number] 2.16.8 [id number] 1987 Unknown [id number] 2.16.8 [id number] 1987 Unknown [id number] 2.16.84 [id number] 1987 Unknown [id number] 2.16.84 [id number] 1987 Unknown [id number] 2.16.84 [id number] 1987 Unknown [id number] 2.16.84 [id number] 1959 Unknown [id number] Social History Date Type Detail Facility Tobacco smoking stat us NHIS Unknown if ever smoked [facility] Work Phone: Start: 1985 Sex Assigned At Female F [facility] Evaluation note Note Date & Type Note Facility Evaluation note No assessment information availa ble [facility] Work Phone: Evaluation note Note Date & Type Note Facility Evaluation note Diagnosis Onset Date Left hip pain acute [facility] Work Phone: Summary Purpose Family [...] CREATED AUTHOR AUTHOR'S ORGANIZ ATION 10/28/2023 [facility] DATE CREATED AUTHOR AUTHOR'S ORGANIZ ATION 02/08/2024 [facility] DATE CREATED AUTHOR AUTHOR'S ORGANIZ ATION 02/19/2024 [facility] EPIC Care Teams (unrecognized [...] BE BASED ON THE PRIMARY CLINICAL RECORDS. [employer] [facility]. provides no warranty or guarantee of the accuracy or completeness of information in this document.
[2024-02-26 13:29] LABS: BOX Test Sent Out Y
== END 2024-02-26 13:00 | disposition home or self-care (01) ==
LOC: LAB 12:59
PROVIDERS: PCP Family Medicine; Visit Provider Obstetrics & Gynecology
DX: Z34.80 Encounter for supervision of other normal pregnancy, unspecified trimester (principal)
CPT/HCPCS: 36415

== ENCOUNTER 2024-04-29 11:35 | Outpatient (OUT) | payer OTHER, SELFPAY ==
--- OUTSIDE RECORDS SUMMARY | 2024-04-29 11:55 | XMS_ITS | CCD ---
Author Organization [facility] Care Team Providers Care Home Care Coordinator Name Role Phone DR DALTON LOGAN Attending Unavailable DARWIN, DR JOANN Ramirez Primary Care Unavailable DOREEN, DR HOFFMAN Admitting Unavailable DOREEN, DR HOFFMAN Consulting Unavailable GARY, DR PAUL Admitting Unavailable GARY, DR PAUL Consulting Unavailable GARY, DR PAUL Attending Unavailable DARWIN, DR JOANN Ramirez Primary Care Unavailable Beverly Vega Attending Unavailable GaryLinh khany Admitting Unavailable Linh Vegay Attending Provider Joann Granados MD Primary Care Provider [phone] SHIN, ASHLEY K Attending Unavailable JOANN GRANADOS Referring Unavailable JOANN GRANADOS Primary Care Unavailable SHIN, ASHLEY K Attending Unavailable JOANN GRANADOS Referring Unavailable JOANN GRANADOS Primary Care Unavailable Joann Granados MD Primary Care Provider EMELY HUNTER Attending Unavailable MORENO, TERE Attending Unavailable SHIN, ASHLEY Referring Unavailable MORENO TERE Attending Unavailable SHIN, ASHLEY Referring Unavailable MORENOISAACA Attending Unavailable SHIN, ASHLEY Referring Unavailable MORENO, TERE Attending Unavailable SHIN, ASHLEY Referring Unavailable GARYBEVERLY KHAN Attending Unavailable MORENO, TERE Attending Unavailable SHIN, ASHLEY Referring Unavailable MORENO, TERE Attending Unavailable SHIN, ASHLEY Referring Unavailable MORENO, TERE Attending Unavailable SHIN, ASHLEY Referring Unavailable MORENO, TERE Attending Unavailable SHIN, ASHLEY Referring Unavailable GARYBEVERLY KHAN Attending Unavailable Allergies Allergy Classification Reported Allergen(s) Allergy Type Date of Onset Reaction(s) Facility (12 sources) Amoxicillin; Translations: [AMOXICILLIN] Drug Allergy 3 GI intolerance, GI Disturbance [facility] (2 sources) 12 Hour Decongestant Allergy to substance 3 [facility] Medications Current Medications Medication Drug Class(es) Dates Sig (Normalized) Sig (Original) aspirin 81 mg delayed release oral tablet (3 sources) Platelet Aggregation Inhibitor, Nonsteroidal Anti-inflammatory Drug take 1 tablet by mouth in the morning aspirin 81 mg Take 1 tablet (81 mg total) by mouth in the morning. Active take 81 mg by mouth once daily B MAC ASPIRIN PO Take 81 mg by mouth Daily Active doxycycline hyclate 100 mg delayed release oral tablet (1 source) Tetracycline-class Drug take 1 tablet by mouth in the morning, then take 1 tablet by mouth at bedtime doxycycline (DORYX) 100 MG EC tablet Take 1 tablet (100 mg total) by mouth in the morning and 1 tablet (100 mg total) before bedtime. Active PNV 19/iron ps,heme/folic/dha ( MV & MIN ORAL) (1 source) take 1 tablet by mouth once in the morning PNV 19/iron ps,heme/folic/dha ( MV & MIN ORAL) Take 1 tablet by mouth in the morning. Active progesterone 200 mg oral capsule (2 sources) Progesterone take 1 capsule by mouth in the morning progesterone (PROMETRIUM) 200 mg capsule Take 1 capsule (200 mg total) by mouth in the morning. Active Completed/Discontinued Medications Medication Drug Class(es) Dates Sig (Normalized) Sig (Original) magnesium citrate (8 sources) Start: 03-07-2024 End: 04-04-2024 Magnesium Citrate 100 MG chewable tablet Indications: Antepartum multigravida of advanced maternal age , Nausea and vomiting in Chew 1 tablet Daily 30 tablet 6 03/07/2024 04/04/2024 Discontinued (Other) Start: 03-07-2024 End: 04-06-2024 Magnesium Citrate 100 MG nikki wable tablet Indications: Antepartum multigravida of advanced maternal age , Nausea and vomiting in Chew 1 tablet Daily 30 tablet 6 03/07/2024 04/06/2024 Active magnesium citrat e 100 mg tablet Take by mouth. Active magnesium oxide 400 mg oral tablet (8 sources) Start: 02-12-2024 End: 05-12-2024 take 1 tablet by mouth once daily magnesium oxide (Mag-Ox) 400 MG tablet Indications: headache in first trimester Take 1 tablet (400 mg) by mouth Daily 30 tablet 2 02/12/2024 04/04/2024 Discontinued (Other) Progesterone 200 MG suppository (7 sources) Start: 01-15-2024 End: 04-04-2024 Progesterone 200 MG suppository 01/15/2024 04/04/2024 Discontinued (Other) Start: 01-15-2024 Progesterone 2 00 MG suppository 01/15/2024 Active pyridoxine hydrochloride 25 mg oral tablet (7 sources) Start: 03-07-2024 End: 04-06-2024 take 1 tablet by mouth once pyridoxine (Vitamin B-6) 25 MG tablet Indications: Antepartum multigravida of advanced maternal age , Nausea and vomiting in Take 1 tablet (25 mg) by mouth every 12 (twelve) hours if needed (nausea) 60 tablet 3 03/07/2024 04/04/2024 Discontinued (Other) Problems Problem Classification Problem Date Documented Date Episodic/Chronic Immunizations and screening for infectious disease (1 source) Encounter for screening for human papillomavirus (HPV); Translations: [ENC SCREENING HUMAN PAPILLOMAVIRUS] Onset: 03-08-2022 Episodic Other complications of (8 sources) Multigravida of advanced maternal age; Translations: [Supervision of elderly multigravida, unspecified trimester] Onset: 03-07-2024 03-07-2024 Episodic Other connective tissue disease (2 sources) Tendinitis of hip; Translations: [Other specified enthesopathies of left lower limb, excluding foot] 03-23-2024 Episodic Other connective tissue disease (1 source) Other specified enthesopathies of left lower limb, excluding foot; Translations: [Other specified enthesopathies of left lower limb, excluding foot] Onset: 02-08-2024 Episodic Other non-traumatic joint disorders (3 sources) Hip pain; Translations: [Pain in left hip] 12-01-2023 Episodic Other non-traumatic joint disorders (2 sources) Pain in left hip; Translations: [Pain in joint, pelvic region and thigh] Onset: 02-08-2024 12-01-2023 Episodic Other non-traumatic joint disorders (1 source) 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; Translations: [Other specified joint disorders, left hip] 04-04-2024 Episodic Other and delivery including normal (2 sources) Second trimester ; Translations: [Encounter for supervision of normal , unspecified, second trimester] 04-04-2024 Episodic Other screening for suspected conditions (not mental disorders or infectious disease) (6 sources) Encounter for screening for malignant neoplasm of cervix; Translations: [Patient encounter status] Onset: 03-03-2022 Episodic Residual codes; unclassified (1 source) Pain, unspecified; Translations: [Pain, unspecified] Onset: 02-08-2024 Episodic Residual codes; unclassified (4 sources) Gestation period, 15 weeks; Translations: [15 weeks gestation of ] Onset: 04-04-2024 04-04-2024 Episodic Unclassified (1 source) New Patient Onset: 02-08-2024 Results Test Name Value Interpretation Reference Range Facility CBC without diffon Hematocrit (Bld) [Volume fraction] 37.3 % [facility] Hemoglobin (Bld) [Mass/Vol] 12.7 g/dL [facility] Rbc Mcv (Fl) By Automated Count 94.4 [facility] Drug Screen, Urineon 024 Amphetamine/Methamph etamine Negative [facility] Barbiturate Screen Urine Negative [facility] Benzodiazepine Screen, Urine Negative [facility] Cocaine Metabolite Negative [facility] Mdma Negative [facility] Methadone,Meconium Negative [facility] Opiate Quantitative Urine Negative [facility] Oxycodone Negative [facility] Phencyclidine Negative [facility] Thc Marijuana, Urine Negative [facility] No Panel Informationon 02-15 [facility] Rubella IGG immune statuson 02-16-2024 Rubella immune IgG 3.94 [facility] Syphilis Total(Unknown Syphi lis Status)on 02-16-2024 Syphilis Non-Reactive [facility] No Panel Informationon 11-29 Human Chorionic Gonadotropin, Quant 2 mIU/mL [facility] Comment on above: 5-50 0.2-1 LKRR47-84 0 1-2 GWYTM651-4,000 2-3 JEJUI434-67,000 3-4 WEEKS1,000-50,000 4-5 WEEKS10,000-100,000 5-6 WEEKS15,000-200,000 6-8 WEEKS10,000-100,000 2-3 MONTHS No Panel Informationon 11-22 Human Chorionic Gonadotropin, Quant 3 mIU/mL [facility] Comment on above: 5-50 0.2-1 SSBY87-29 0 1-2 UWFYJ828-6,000 2-3 JBEPG713-67,000 3-4 WEEKS1,000-50,000 4-5 WEEKS10,000-100,000 5-6 WEEKS15,000-200,000 6-8 WEEKS10,000-100,000 2-3 MONTHS No Panel Informationon 11-16 Human Chorionic Gonadotropin, Quant 6 mIU/mL [facility] Comment on above: 5-50 0.2-1 YZGY21-80 0 1-2 LHPJE284-1,000 2-3 SFWSR596-58,000 3-4 WEEKS1,000-50,000 4-5 WEEKS10,000-100,000 5-6 WEEKS15,000-200,000 6-8 WEEKS10,000-100,000 2-3 MONTHS No Panel Informationon 11-08 Human Chorionic Gonadotropin, Quant 27 mIU/mL [facility] Comment on above: 5-50 0.2-1 IAOS78-19 0 1-2 NRDXU862-8,000 2-3 YNHMW339-63,000 3-4 WEEKS1,000-50,000 4-5 WEEKS10,000-100,000 5-6 WEEKS15,000-200,000 6-8 WEEKS10,000-100,000 2-3 MONTHS Basophils Auto (Bld) [#/Vol] on 10-23-2023 Basophils (Bld) [#/Vol] 0.0 10 3/uL 0.0-0.1 [facility] Basophils/100 WBC Auto (Bld) on 10-23-2023 Basophils/100 WBC (Bld) 0.8 % 0.2-2.0 [facility] Eosinophils/100 WBC Auto (Bl d)on 10-23-2023 Eosinophils/100 WBC (Bld) 1.4 % 0.9-7.0 [facility] Erythrocyte distribution wid th Auto (RBC) [Ratio]on 10-23-2023 Erythrocyte distribution width (RBC) [Ratio] 11.9 % 11.0-15.0 [facility] Hematocrit Auto (Bld) [Volum e fraction]on 10-23-2023 Hematocrit (Bld) [Volume fraction] 36.0 % 36.0-48.0 [facility] Hemoglobin [Mass/volume] in Bloodon 10-23-2023 Hemoglobin (Bld) [Mass/Vol] 11.8 g/dL 12.0-16.0 [facility] Krzysztof 10-23-2023 L Specimen: [id number] Received: 10/26/23 Status: MAIA Newell Num: [id number] Spec Type: Surgical Subm Dr: Beverly Vega Tissues: A Products of Conception - Spontaneous or Missed (POC) Procedures: HE/3, Gross/Micro L4 Age/ Patient Sex Location Account Attending Physician Tiffanie Elizabeth 37/F LABELL [id number] Beverly Vega SPEC NUM: [id number] RECD: 10/26/23 STATUS: RINAShayy NEWELL NUM: [id number] JANIE: 10/23/[address]: Beverly Vega ENTERED: 10/26/23 [facility] DR: Héctor,Lab SPEC TYPE: Surgical DEPT: [...] cm possible area of villous tissue identified. Carrier Packer sections to include the possible villous tissue are submitted in A1?A3. Clinical history: Missed CPT Codes 97052 ---- ---- Specimen: [id number] Received: 10/26/23 Status: MAIA Newell Num: [id number] Spec Type: Surgical Subm Dr: Beverly Vega Tissues: A Products of Conception - Spontaneous or Missed (POC) Procedures: HE/3, Gross/Micro L4 ---- Patient: Tiffanie Elizabeth [id number] (Continued) ---- Signed (signature on file) Dante Palacios MD 10/27/23 1511 Normal [facility] - Hematology and Cell countson 10-23-2023 Immature granulocytes/100 WBC (Bld) 0.2 % 0.0-0.5 [facility] Leukocytes [#/volume] correc leroy for nucleated erythrocytes in Blood by Automated counon 10-23-2023 WBC corrected for nucl RBC Auto (Bld) [#/Vol] 5.1 10 /uL 4.0-11.0 [facility] Lymphocytes Auto (Bld) [#/Vo l]on 10-23-2023 Lymphocytes (Bld) [#/Vol] 1.7 10 3/uL 1.2-3.8 [facility] Lymphocytes/100 WBC Auto (Bl d)on 10-23-2023 Lymphocytes/100 WBC (Bld) 32.8 % 20.5-60.0 [facility] MCH Auto (RBC) [Entitic mass ]on 10-23-2023 MCH (RBC) [Entitic mass] 31.1 pg 26.7-34.0 [facility] MCHC Auto (RBC) [Mass/Vol]on 10-23-2023 MCHC (RBC) [Mass/Vol] 32.8 g/dL 29.9-35.2 [facility] MCV Auto (RBC) [Entitic vol] on 10-23-2023 MCV (RBC) [Entitic vol] 95.0 fL 81.0-99.0 [facility] Monocytes Auto (Bld) [#/Vol] on 10-23-2023 Monocytes (Bld) [#/Vol] 0.3 10 3/uL 0.3-0.8 [facility] Monocytes/100 WBC Auto (Bld) on 10-23-2023 Monocytes/100 WBC (Bld) 5.5 % 1.7-12.0 [facility] Neutrophils Auto (Bld) [#/Vo l]on 10-23-2023 Neutrophils (Bld) [#/Vol] 3.0 10 3/uL 1.4-6.5 [facility] Neutrophils/100 WBC Auto (Bl d)on 10-23-2023 Neutrophils/100 WBC (Bld) 59.3 % 43.0-75.0 [facility] No Panel Informationon 10-22 Eosinophils # (Auto) 0.1 10 3/uL 0.0-0.7 [facility] Immature Granulocyte # (Auto) 0.01 10 3/uL 0.00-0.03 [facility] Platelet mean volume Auto (B ld) [Entitic vol]on 10-23-2023 Platelet mean volume (Bld) [Entitic vol] 9.0 fL 9.5-13.5 [facility] Platelets Auto (Bld) [#/Vol] on 10-23-2023 Platelets (Bld) [#/Vol] 182 10 3/uL 150-450 [facility] RBC Auto (Bld) [#/Vol]on RBC (Bld) [#/Vol] 3.79 10 6/uL 4.20-5.40 [facility] No Panel Informationon 10-11 Human Chorionic Gonadotropin, Quant 00005 mIU/mL [facility] Comment on above: 5-50 0.2-1 HOWJ30-92 0 1-2 SACOZ024-7,000 2-3 NBXMH112-86,000 3-4 WEEKS1,000-50,000 4-5 WEEKS10,000-100,000 5-6 WEEKS15,000-200,000 6-8 WEEKS10,000-100,000 2-3 MONTHS No Panel Informationon 10-06 Human Chorionic Gonadotropin, Quant 22317 mIU/mL [facility] Comment on above: 5-50 0.2-1 YHGC58-72 0 1-2 FNMOY260-8,000 2-3 TPOVV290-95,000 3-4 WEEKS1,000-50,000 4-5 WEEKS10,000-100,000 5-6 WEEKS15,000-200,000 6-8 WEEKS10,000-100,000 2-3 MONTHS No Panel Informationon 10-04 Human Chorionic Gonadotropin, Quant 81996 mIU/mL [facility] Comment on above: 5-50 0.2-1 IUHP58-22 0 1-2 RYJJR777-1,000 2-3 LSYXY725-63,000 3-4 WEEKS1,000-50,000 4-5 WEEKS10,000-100,000 5-6 WEEKS15,000-200,000 6-8 WEEKS10,000-100,000 2-3 MONTHS PAP ACOG PANEL 2: 30 to 65on 03-11-2022 . . Normal [facility] Comment on above: Result Comment: Perf ormed at: WB Performed By: #### [id number] #### [facility] [address] [place] [address] Dr. Danni Jacobs Age Gdln ACOG Testing 30-65 Normal [facility] Comment on above: Performed By: #### [id number] #### [facility] [address] [place] [address] Dr. Danni Jacobs DIAGNOSIS: Comment Normal [facility] Comment on above: Result Comment: NEGA TIVE FOR INTRAEPITHELIAL LESION OR MALIGNANCY. THIS SPECIMEN WAS RESCREENED PART OF OUR RECREATION ATTENDANT SUPERVISOR PROGRAM. Performed at: WB Performed By: #### [id number] #### [facility] [address] [place] [address] Dr. Danni Jacobs HPV Aptima Negative Normal Negative [facility] Comment on above: Result Comment: This nucleic acid amplification test detects fourteen high-risk HPV types (16,18,31,33,35,39,45,51,52,56,58,59,66,68) without differentiation. Performed at: =G Performed By: #### [id number] #### [facility] [address] [place] [address] Dr. Danni Jacobs Methodology: Comment Normal [facility] Comment on above: Result Comment: This liquid based ThinPrep(R) pap test was screened with the use of an image guided system. Performed at: WB Performed By: #### [id number] #### [facility] [address] [place] [address] Dr. Danni Jacobs Note: Comment Normal [facility] Comment on above: Result Comment: The Pap smear is a screening test designed to aid in the detection of premalignant and malignant conditions of the uterine cervix. It is not a diagnostic procedure and should not be used as the sole means of detecting cervical cancer. Both false-positive and false-negative reports do occur. . Performed at: WB Performed By: #### [id number] #### [facility] [address] [place] [address] Dr. Danni Jacobs Performed by: Comment Normal [facility] Comment on above: Result Comment: [employer] Home [employer] (ASCP) Performed at: WB Performed By: #### [id number] #### [facility] [address] [address] [address] Danni Jacobs QC reviewed by: Comment Normal [facility] Comment on above: Result Comment: Betzaida Ge, Supervisory Home Maker (ASCP) Performed at: WB Performed By: #### [id number] #### [facility] [address] [address] [address] Danni Jacobs Specimen adequacy: Comment Normal [facility] Comment on above: Result Comment: Sati sfactory for evaluation. Endocervical and/or squamous metaplastic cells (endocervical component) are present. Performed at: WB Performed By: #### [id number] #### [facility] [address] [address] [address] Danni Jacobs GLUCOSE BLOODon 04-22-2021 Glucose [Mass/Vol] 99 mg/dL Normal 74-106 [facility] Comment on above: Performed By: #### G YOSEPH, LIPID #### [facility] [address] [place] [address] Dr. Danni Jacobs LIPID PROFILEon 04-22-2021 CHOL-HDL RATIO NORM SEE BELOW Normal [facility] Comment on above: Result Comment: 3.3 - 4.4 LOW RISK 4.4 - 7.1 AVERAGE RISK 7.1 - 11.0 MODERATE RISK >11.0 HIGH RISK Performed By: #### G YOSEPH, LIPID #### [facility] [address] [place] [address] Dr. Danni Jacobs Cholesterol [Mass/Vol] 157 mg/dL Normal <=200 [facility] Comment on above: Performed By: #### G YOSEPH, LIPID #### [facility] [address] [place] [address] Dr. Danni Jacobs Cholesterol in HDL [Mass/Vol] 74 mg/dL Normal [facility] Comment on above: Performed By: #### G YOSEPH, LIPID #### [facility] [address] [place] [address] Dr. Danni Jacobs Cholesterol in LDL [Mass/Vol] 71.2 mg/dL Normal [facility] Comment on above: Performed By: #### G YOSEPH, LIPID #### [facility] [address] [address] [address] Danni Jacobs Cholesterol.total/Ch olesterol in HDL [Mass ratio] 2.1 {ratio} Normal [facility] Comment on above: Performed By: #### G YOSEPH, LIPID #### [facility] [address] [address] [address] Danni Jacobs HDL NORMAL > or = 60 mg/dl - LO W CARDIOVASCULAR RISK <40 mg/dl - HIGH CARDIOVASCULAR RISK Normal [facility] Comment on above: Performed By: #### G YOSEPH, LIPID #### [facility] [address] [address] [address] Danni Jacobs LDL CALC NORMAL SEE BELOW Normal [facility] Comment on above: Result Comment: <100 mg/dl OPTIMAL 100 - 129 mg/dl NEAR OR ABOVE OPTIMAL 130 - 159 mg/dl BORDERLINE HIGH 160 - 189 mg/dl HIGH >190 mg/dl VERY HIGH Performed By: #### G YOSEPH, LIPID #### [facility] [address] [address] [address] Danni Jacobs Triglyceride [Mass/Vol] 59 mg/dL Normal <=150 [facility] Comment on above: Performed By: #### G YOSEPH, LIPID #### [facility] [address] [address] [address] Danni Jacobs VLDL CALC 11.8 mg/dL Normal [facility] Comment on above: Performed By: #### G YOSEPH, LIPID #### [facility] [address] [address] [address] Danni Jacobs Vital Signs Date Time Vital Sign Value Performing Clinician Jakobi lity 04-04-2024 14:55-0400 Body mass index (BMI) [Ratio] 21.27 kg/m2 [employer] Work Phone: [facility] 04-04-2024 14:55-0400 Body weight 61.6 kg [employer] Work Phone: [facility] 04-04-2024 14:55-0400 Diastolic blood pressure 70 mm[Hg] [employer] Work Phone: [facility] 04-04-2024 14:55-0400 Systolic blood pressure 116 mm[Hg] Beverly Gary DO Work Phone: [facility] 04-04-2024 08:54-0400 Body height 170.2 cm Ashley Shin MD Work Phone: [facility] 04-04-2024 08:54-0400 Body mass index (BMI) [Ratio] 19.73 kg/m2 Ashley Shin MD Work Phone: [facility] 04-04-2024 08:54-0400 Body weight 57.15 kg Ashley Shin MD Work Phone: [facility] 12-01-2023 16:10-0400 Body height 170.18 cm Beverly Gary Work Phone: [facility] 12-01-2023 16:10-0400 Body mass index (BMI) [Ratio] 19.5 kg/m2 Beverly Gary Work Phone: [facility] 12-01-2023 16:10-0400 Body weight 56.69 kg Beverly Gary Work Phone: [facility] 12-01-2023 16:10-0400 Diastolic blood pressure 78 mm[Hg] Beverly Gary Work Phone: [facility] 12-01-2023 16:10-0400 Systolic blood pressure 112 mm[Hg] Beverly Gary Work Phone: [facility] Encounters Encounter Date Encounter Type Care Provider Facility Start: 04-08-2024 End: 04-08-2024 Chart abstracting Scanning Provider External [facility] Start: 04-04-2024 End: 04-04-2024 flow sheet Beverly Gary DO Work Phone: [facility] Comment on above: Second trimester pre gnancy; Screening, , for anatomic survey; with 15 completed weeks gestation Start: 04-04-2024 End: 04-04-2024 ambulatory BEVERLY GARY Not Available Start: 04-04-2024 End: 04-04-2024 Bamboo flowsheet Beverly Gary DO Work Phone: [facility] Start: 04-04-2024 End: 04-04-2024 Bamboo flowsheet Beverly Gary DO Work Phone: [facility] Start: 04-04-2024 End: 04-04-2024 ambulatory ASHLEY SHIN [facility] Start: 04-04-2024 End: 04-04-2024 Office outpatient visit 15 minutes Ashley Shin MD Work Phone: [facility] Comment on above: 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) Start: 04-01-2024 End: 04-01-2024 Bamboo flowsheet Tere Moreno PT [facility] Start: 04-01-2024 End: 04-01-2024 Bamboo flowsheet Tere Moreno PT [facility] Start: 04-01-2024 End: 04-01-2024 ambulatory Tere Moreno PT [facility] Comment on above: Pain of left hip (Pr imary Dx); Hip flexor tendinitis, left Start: 03-23-2024 End: 03-23-2024 Bamboo flowsheet Tere Moreno PT [facility] Start: 03-23-2024 End: 03-23-2024 Bamboo flowsheet Tere Moreno PT [facility] Start: 03-23-2024 End: 03-23-2024 ambulatory Tere Moreno PT [facility] Comment on above: Pain of left hip (Pr imary Dx); Hip flexor tendinitis, left Start: 03-18-2024 End: 03-18-2024 ambulatory TERE MORENO Not Available Start: 03-11-2024 End: 03-14-2024 ambulatory TERE MORENO Not Available Start: 03-07-2024 End: 03-07-2024 ambulatory BEVERLY GARY Not Available Start: 03-03-2024 End: 03-03-2024 ambulatory TERE MORENO Not Available Start: 02-26-2024 End: 02-26-2024 ambulatory TERE MORENO Not Available Start: 02-17-2024 End: 02-17-2024 ambulatory TERE MORENO Not Available Start: 02-12-2024 End: 02-12-2024 ambulatory EMELY HUNTER Not Available Start: 02-10-2024 End: 02-11-2024 ambulatory TERE MORENO Not Available Start: 02-08-2024 End: 02-08-2024 ambulatory [facility] Start: 02-08-2024 ambulatory [facility] Start: 12-01-2023 End: 12-01-2023 ambulatory Beverly Gary Work Phone: [facility] Work Phone: Start: 12-01-2023 End: 12-01-2023 Patient encounter procedure Beverly Gary Work Phone: [facility] Work Phone: Start: 11-30-2023 Non-patient / Non-visit Beverly Gary Work Phone: [facility] Work Phone: Start: 11-23-2023 Non-patient / Non-visit Beverly Gary Work Phone: [facility] Work Phone: Start: 11-17-2023 Non-patient / Non-visit Beverly Gary Work Phone: [facility] Work Phone: Start: 11-09-2023 Non-patient / Non-visit Beverly Gary Work Phone: [facility] Work Phone: Start: 11-09-2023 End: 11-09-2023 ambulatory EMELY HUNTER Not Available Start: 10-23-2023 End: 10-23-2023 ambulatory Beverly Gary Facility:[facility] Start: 10-23-2023 End: 10-23-2023 ambulatory Beverly Gary Work Phone: [facility] Work Phone: Start: 10-23-2023 End: 10-23-2023 Departed Referred Beverly Gary Work Phone: [facility] Start: 10-23-2023 Non-patient / Non-visit Beverly Gary Work Phone: [facility] Work Phone: Start: 10-12-2023 Non-patient / Non-visit Beverly Gary Work Phone: [facility] Work Phone: Start: 10-07-2023 Non-patient / Non-visit Beverly Gary Work Phone: [facility] Physician [facility] ([employer] Work Phone: Start: 10-05-2023 Non-patient / Non-visit Beverly Gary Work Phone: [facility] Physician [facility] ([employer] Work Phone: Start: 03-03-2022 End: 03-03-[address] BEVERLY VEGA Facility:[facility]1 Start: 04-28-2021 Encounter for genera l adult medical examination without abnormal findings DR DALTON LOGAN [facility] Start: 04-22-2021 End: 04-23-[address] DALTON LOGAN Facility:[facility] Start: 04-22-2021 End: 04-23-2021 Encounter for general adult medical examination without abnormal findings DR DALTON LOGAN Facility:[facility]1 Procedures Date Procedure Procedure Detail Performing Clinician Start: 04-04-2024 Follow-up visit Follow-up ASHLEY SHIN Start: 02-16-2024 Blood count complete automated Not In System Ref Prov Start: 02-16-2024 Drug scrn 1+ class nonchromo Not In System Ref Prov Start: 02-16-2024 Syphilis test non-treponemal antibody qual Not In System Ref Prov Plan of Treatment Date Care Activity Detail Author Start: 04-04-2025 Adult BMI Screening Adult BMI Screen ing [facility] Start: 04-04-2025 Tobacco Screening Tobacco Screening [facility] Start: 02-07-2025 Adult BMI Screening Adult BMI Screen ing [facility] Start: 05-27-2024 End: 05-27-2024 Patient encounter procedure [facility] Start: 05-02-2024 End: 05-02-2024 Patient encounter procedure 05/02/2024 3:30 PM EST Routine [facility] [address] [facility] [facility] [place] [place] [phone] Emely Hunter PA [address] [place], [place] [id number] [facility] Start: 04-26-2024 End: 04-26-2024 Patient encounter procedure 04/26/2024 11:00 AM EST Office Visit [facility] [address] [place] [phone] Beverly Vega DO [address] [place], [place] [id number] [facility] Start: 04-04-2024 End: 04-04-2024 Patient encounter procedure [facility] Comment on above: Arrived Start: 04-04-2024 End: 10-03-2024 Alpha fetoprotein, maternal Alpha fetoprotein, maternal Lab Routine Second trimester Screening, , for anatomic survey Expected: 04/04/2024 (Approximate), Expires: 10/03/2024 [facility] Work Phone: Comment on above: Expected: 04/04/2024 (Approximate), Expires: 10/03/2024 Start: 04-01-2024 End: 04-01-2024 ambulatory 04/01/2024 1:30 PM EDT Treatment [facility] [address] [place] [id number] Tere Moreno, PT [facility] Start: 02-21-2024 Influenza vaccination Influenza Vacc ine [facility] Start: 12-10-2008 Screening for malign ant neoplasm of cervix Pap Smear [facility] Start: 12-10-2006 DTaP,Tdap and Td Vaccines (1 - Tdap) DTaP,Tdap and Td Vaccines (1 - Tdap) [facility] Start: 1999 Depression Screening Depression Scre ening [facility] Start: 1999 Tobacco Screening Tobacco Screening [facility] XR Hip - left 2 Views [facility] Payers Date Payer Category Payer Commercial Managed C are - POS [employer] [id number] 2022 Private Health Insurance [id number] 2022 Unknown NILAM JORGENSEN [id number] 2022-Present [phone] [address] [place] [address] [id number] 1987 Unknown [id number] 2.16.840.1.091814.3.579. 2.593 1987 Unknown [id number] 2.16.840.1.545797.3.579. 2.593 1987 Unknown [id number] 2.16.840.1.307497.3.579. 2.1285 1987 Unknown [id number] 2.16.840.1.543707.3.579. 2.1285 1987 Unknown [id number] 2.16.840.1.236904.3.579. 2.1285 1987 Unknown [id number] 2.16.840.1.260891.3.579. 2.1258 1987 Unknown [id number] 2.16840.1.448580.3.579. 2.1258 1987 Unknown [id number] 2.16840.1.967564.3.579. 2.1258 1987 Unknown [id number] 2.16840.1.485144.3.579. 2.1258 1987 Unknown [id number] 2.840.1.139511.3.579. 2.1258 1987 Unknown [id number] 2.840.1.646337.3.579. 2.1258 1987 Unknown [id number] 2.16840.1.005472.3.579. 2.1258 1987 Unknown [id number] 2.16840.1.869962.3.579. 2.1258 1987 Unknown [id number] 2.840.1.981890.3.579. 2.1258 1987 Unknown [id number] 2.16840.1.609674.3.579. 2.1258 1987 Unknown [id number] 2.16840.1.339864.3.579. 2.1258 1987 Unknown [id number] 2.16840.1.945830.3.579. 2.9 1959 Unknown [id number] Social History Date Type Detail Facility Tobacco smoking stat [facility] Unknown if ever smoked [facility] Work Phone: Start: 1985 Sex Assigned At Female [facility] Start: 02-26-2023 End: 04-04-2024 Tobacco smoking status NHIS Never smoked tobacco [facility] Start: 11-09-2023 End: 04-04-2024 History of Social function [facility] Start: 11-09-2023 End: 04-04-2024 Tobacco use panel [facility] Start: 01-01-2024 [facility] Start: 1985 Sex assigned at Not on file [facility] Start: 04-04-2024 Tobacco use and exposure Smokeless tobacco non-user [facility] Start: 04-04-2024 End: 04-08-2024 Alcoholic beverage intake Ex-drinker (finding) [facility] Childcare Unknown [facility] Start: 12-30-2023 Gender identity Identifies as female gender (finding) [facility] Start: 12-30-2023 Sexual orientation Heterosexual (finding) [facility] Start: 01-25-2015 Sex Female (finding) [facility] Clinical Notes 03-23-2024 to 04-04-2024 Kalie Loera LPN - 04/04/2024 2:10 PM Valeri Shin MD - 04/04/2024 8:45 AM Daniel Moreno, PT - 04/01/2024 1:30 PM Daniel Moreno, PT - 03/23/2024 1:00 PM EDT Note Date & Type Note Facility 04-04-2024 History of Present illness Narrative Reason for Appointment: Patient ID: Tiffanie Elizabeth is a 38 y.o. female who presents for Routine Visit Patient presents today for Return OB appointment. MEDICATIONS Current Outpatient Medications Medication Instructions BABY ASPIRIN PO 81 mg, Oral, Daily ALLERGIES Allergies Allergen Reactions Amoxicillin GI intolerance Other Reaction(s): GI Disturbance, Hives PROBLEMS Active Ambulatory Problems Diagnosis Date Noted Antepartum multigravida of advanced maternal age 0903/07/2024 Resolved Ambulatory Problems Diagnosis Date Noted No Resolved Ambulatory Problems No Additional Past Medical History HISTORY PAST MEDICAL HISTORY SOCIAL HISTORY No past medical history on file. Social History Tobacco Use Smoking status: Never Smokeless tobacco: Not on file Substance Use Topics Alcohol use: Not on file Drug use: Not on file FAMILY HISTORY No family history on file. SURGICAL HISTORY Past Surgical History: Procedure Laterality Date DILATION AND CURETTAGE OF UTERUS 10/26/2023 REVIEW OF SYSTEMS Review of Systems: Review of Systems All other systems reviewed and are negative. OBJECTIVE Objective: Physical Exam Constitutional: Appearance: Normal appearance. She is well-developed. Cardiovascular: Rate and Rhythm: Normal rate and regular rhythm. Pulmonary: Effort: Pulmonary effort is normal. Breath sounds: Normal breath sounds. Abdominal: General: Bowel sounds are normal. There is no distension. Palpations: Abdomen is soft. Tenderness: There is no abdominal tenderness. There is no guarding or rebound. Musculoskeletal: General: No swelling. Normal range of motion. Right lower leg: No edema. Left lower leg: No edema. Neurological: Mental Status: She is alert and oriented to person, place, and time. Skin: General: Skin is warm and dry. Psychiatric: Mood and Affect: Mood normal. Behavior: Behavior normal. Vitals and nursing note reviewed. Exam conducted with a parts representative present. Vitals: Estimated body mass index is 21.27 kg/m as calculated from the following: Height as of 04/21/23: 5' 7 . Weight as of this encounter: 135 lb 12.8 oz. BP: 116/70 Patient's last menstrual period was 12/18/2023. ASSESSMENT & PLAN ICD-10-CM 1. Second trimester Z34.92 Alpha fetoprotein, maternal Alpha fetoprotein, maternal 2. Screening, , for anatomic survey Z36.89 Alpha fetoprotein, maternal US OB ANATOMY SINGLE W US OB CERVICAL LENGTH Alpha fetoprotein, maternal Patient presents today for a routine obstetrics appointment. Patient is currently 15w3d with a Estimated Date of Delivery: 09/23/24. Patient is taking daily 81mg Aspirin. Discussed again in regards to seeing [facility] & referral will be completed. Patient to have NST/BPP starting at 32 weeks gestation. Patient will have Anatomy Scan done at [facility]. Patient is Rh Negative and will require Rhogam injection at 28 week gestation. Patient voiced that she has been in PT for hip pain. Patient voiced that PT is stumped at to what this could be and that if it could possibly be pelvic floor needing strengthening. Patient was advised by ortho to continue at home exercises, but nothing to strenuous. Patient to return to clinic in 4 weeks for routine OB appointment. Documented by Kalie Loera LPN on behalf of: Beverly Vega DO documented in this encounter [facility] 04-04-2024 History of Present illness Narrative Chief complaint: Chief Complaint Patient presents with Left Hip - Follow-up Left hip, PT 1 times/week plus hep, rom has improved, still having pain Left hip pain History of present illness: Patient presents clinic today for follow-up evaluation of her left hip. She did physical therapy but she states that her pain is still present. Moderate pain. Localized to the groin. Her range of motion and strength improved but she still has the pain. Currently she is . Denies any numbness tingling or fevers or chills. Physical examination: On inspection of her left hip no swelling or edema. She has pain with combined flexion adduction internal rotation testing. Pain with CHARLES testing. No edema. Good hip girdle strength. No tenderness hip flexor today no pain with resisted hip flexion negative circumduction test. Neurovascular intact distally. Radiology: None today Assessment/plan/medical decision making: Left hip pain. Left hip likely impingement. Concerned for labral tear. I reviewed the clinical findings are in detail today. The next step in her treatment would be an MRI arthrogram of the left hip to evaluate for labral tear but currently she is so we are going to hold off on that she will continue her home exercises and she will plan on calling me 6 weeks after her delivery to update me with her status. If she is still having the same pain we will proceed with an MRI arthrogram at that time all questions were answered she agrees with this plan. [facility] History of Present illness Narrative Physical Therapy Treatment Visit Patient Name: Tiffanie Elizabeth Today's Date: 04/01/2024 Encounter Diagnoses Name Primary? Pain of left hip Yes Hip flexor tendinitis, left Visit number: 8 Timed Code Treatment Minutes: 43 minutes Total Treatment Time: 53 minutes Time In: 1330 Time Out: 1430 History: Pt states back in October she had missed working out for about a week and half, when she returned, she was doing leg swings out to the side she felt pain in left hip. Was seen by ortho and is thought to have a hip flexor strain. Pt states left hip feels like it is locked and it pops a lot randomly. Precautions: [place] Subjective: Pt states overall, ROM has improved. Continues to have occasional pain with certain activities. Pain will range from 0-6/10 in left hip. Will RTD 04/04/24 Pain: 0/10 at rest Objective: PT Evaluation (02/10/2024) Left HIP PROM: 105 degrees flexion due to pain, full IR and abduction Joint play: No significant laxity with inf or post glides MMT: left hip ER and abd 4/5, left hip flex 4+/5 without pain with resistance at mid range or end ranges; right hip ER and abd 4-/5 Muscle length: left knee 13 inches from surface with CHARLES Palpation: no complaints of tenderness with palpation Special Test: Pain with FADIR and CHARLES; pain at end range ext/ER Treatment: Education: HEP education with demonstration, Educated on Eval Findings and POC Manual Therapy: (25 minutes) Passive ROM, Joint mobilization, Soft Tissue Mobilization, Myofascial Release, Muscle Energy Technique, Neural Mobilization, Myofascial Cupping, Dry Needling, IASTM, and Scar mobilization as needed. Manual distraction and mobs to left hip in supine. Discussed possible pelvic health referral with good pt understanding. Re-assessed for update for physician. Therapeutic Exercise: (18 minutes) Strength, Endurance, Flexibility, ROM, HEP, Neural Mobilization, Power, and Core Stability as needed. Reviewed HEP and importance of focusing on glute contraction with exercises. Therapeutic Activity: Exercises to improve dynamic activities, functional tasks, functional mobility to return to prior activity level as needed. Neuromuscular re-education: Balance Training, Muscle Facilitation, Dynamic Stability, Core Stabilization, and Blood Flow Restriction Training (BFRT) as needed. Modalities: Heat, Ice, Electrical Stimulation, Ultrasound, Cervical Mechanical Traction, Lumbar Mechanical Traction, Iontophoresis, and Fluidotherapy as needed. HP x 10 mins prior to treatment Assessment: Pt has completed 8 PT sessions for left hip pain. PROM left hip: 138 degrees flexion due to pain, full IR and abduction. Pain noted with CHARLES and FADIR. Pain with right hip scour. Pain at end range ext/ER. Strength left hip ER 4 to 4+/5, left hip abd and flex 4+/5 without pain with resistance at mid range or end ranges of hip flexion. Question whether pt would benefit from further imaging? Outcome Measure:Lower Extremity Functional Scale (LEFS): 59/80 Rehab Diagnosis: left hip pain and weakness Short Term Goal: To be met in 2 weeks Goal 1: Pt to be instructed in home exercise program. Jail Goals: To be met in 10 weeks Goal 1: Pt to report independence and compliance with home program. Goal 2: Pt to achieve 4+/5/5 strength bilateral hips strength to assist with functional mobility. Goal 3: Pt to report pain no greater than 2/10 in left hip with ADL's and functional tasks. Goal 4: Pt to have no greater than 6 inch knee to bed distance with left CHARLES testing indicating improved tissue quality and decrease pain. Goal 5: Pt to score no less than 65/80 on LEFS indicating improved QOL. Pt will benefit from skilled PT for 2-3x/week from 02/10/2024 to 04/20/2024 to address the above impairments. I hereby deem this POC medically necessary. Please sign below. Date: documented in this encounter [facility] 03-23-2024 History of Present illness Narrative Physical Therapy Treatment Visit Patient Name: Tiffanie Elizabeth Today's Date: 03/23/2024 Encounter Diagnoses Name Primary? Pain of left hip Yes Hip flexor tendinitis, left Visit number: 7 Timed Code Treatment Minutes: 41 minutes Total Treatment Time: 59 minutes Time In: 1300 Time Out: 1400 History: Pt states back in October she had missed working out for about a week and half, when she returned, she was doing leg swings out to the side she felt pain in left hip. Was seen by ortho and is thought to have a hip flexor strain. Pt states left hip feels like it is locked and it pops a lot randomly. Precautions: [place] Subjective: Pt states range of motion of right hip continues to improve but states she feels like something is still wrong in the joint. Will RTD 04/04/24 Pain: 0/10 at rest Objective: PT Evaluation (02/10/2024) Left HIP PROM: 105 degrees flexion due to pain, full IR and abduction Joint play: No significant laxity with inf or post glides MMT: left hip ER and abd 4/5, left hip flex 4+/5 without pain with resistance at mid range or end ranges; right hip ER and abd 4-/5 Muscle length: left knee 13 inches from surface with CHARLES Palpation: no complaints of tenderness with palpation Special Test: Pain with FADIR and CHARLES; pain at end range ext/ER Treatment: Education: HEP education with demonstration, Educated on Eval Findings and POC Manual Therapy: (41 minutes) Passive ROM, Joint mobilization, Soft Tissue Mobilization, Myofascial Release, Muscle Energy Technique, Neural Mobilization, Myofascial Cupping, Dry Needling, IASTM, and Scar mobilization as needed. Long axis distraction to left LE in supine. MET to increase left hip IR ROM. Belted distraction with passive flexion and IR. Gentle mobs/oscillations to decrease pain. IDN to left lateral hip with 3 inch needles and static placement (8 min, no charge) Therapeutic Exercise: () Strength, Endurance, Flexibility, ROM, HEP, Neural Mobilization, Power, and Core Stability as needed. Therapeutic Activity: Exercises to improve dynamic activities, functional tasks, functional mobility to return to prior activity level as needed. Neuromuscular re-education: Balance Training, Muscle Facilitation, Dynamic Stability, Core Stabilization, and Blood Flow Restriction Training (BFRT) as needed. Modalities: Heat, Ice, Electrical Stimulation, Ultrasound, Cervical Mechanical Traction, Lumbar Mechanical Traction, Iontophoresis, and Fluidotherapy as needed. HP x 10 mins prior to treatment Assessment: Pt has completed 7 PT sessions for left hip pain. Passive left hip IR ROM is full; however, some soreness noted at end range. Will continue to progress as pt tolerates. Outcome Measure:Lower Extremity Functional Scale (LEFS): 59/80 Rehab Diagnosis: left hip pain and weakness Short Term Goal: To be met in 2 weeks Goal 1: Pt to be instructed in home exercise program. Rate Manager Goals: To be met in 10 weeks Goal 1: Pt to report independence and compliance with home program. Goal 2: Pt to achieve 4+/5/5 strength bilateral hips strength to assist with functional mobility. Goal 3: Pt to report pain no greater than 2/10 in left hip with ADL's and functional tasks. Goal 4: Pt to have no greater than 6 inch knee to bed distance with left CHARLES testing indicating improved tissue quality and decrease pain. Goal 5: Pt to score no less than 65/80 on LEFS indicating improved QOL. Pt will benefit from skilled PT for 2-3x/week from 02/10/2024 to 04/20/2024 to address the above impairments. I hereby deem this POC medically necessary. Please sign below. Date: documented in this encounter [facility] Evaluation note No assessment inform ation available [facility] Work Phone: Evaluation note Diagnosis Onset Date Left hip pain acute [facility] Work Phone: Evaluation note* Diagnosis Pain of left hip- Primary Hip flexor tendinitis, left [facility] Diagnosis Pain of left hip- Primary Hip flexor tendinitis, left [facility]* Diagnosis Femoroacetabular impingement of left hip- Primary [facility] Diagnosis Second trimester state, incidental Screening, , for anatomic survey Encounter for anatomic survey with 15 completed weeks gestation documented in this encounter [facility] HealthcareInstructionsNot on filedocumented in this encounterPro[facility] System[facility]ructionsNot on filedocumented in this encounterProE[facility] Summary Purpose Family History No Family History Records FoundNo Family History Records FoundNo Family History Records FoundNo Family History Records Found Advance Directives Advance Directive Response Recorded Date/ Time Advance Directives No November 30 3:47pm Additional Source Comments INFORMATION SOURCE (unrecogn ized section and content) DATE CREATED AUTHOR 03/22/2022 [facility] DATE CREATED AUTHOR AUTHOR'S ORGANIZ ATION 10/28/2023 [facility] DATE CREATED AUTHOR AUTHOR'S ORGANIZ ATION 04/05/2024 [facility] DATE CREATED AUTHOR AUTHOR'S ORGANIZ ATION 04/06/2024 [facility] EPIC Care Teams (unrecognized sec [...] 2023 Beverly Vega Attending Provider Active Start: 2023 Team Status: Inactive Member Role Status Dates Beverly Vega Attending Provider Active Start: 2023 End: October 23, 2023 Team Status: [...] Provider Active Start: December 01, 2023 End: Latasha 11th, 2024 Home Care Coordinator Relationship Specialty Start Date End Date Joann Granados MD [address] [facility] [place] [phone] PCP - General Family Medicine 03/10/23 Home Care Coordinator Relationship Specialty Start Date End Date Joann Granados MD [address] [facility] [place] [phone] PCP - General Family Medicine 03/10/23 Home Care Coordinator Relationship Specialty Start Date End Date Joann Granados MD [address] [facility] [place] [address] PCP - General Family Medicine 03/10/23 Home Care Coordinator Relationship Specialty Start Date End Date Joann Granados MD [address] [facility] [place] [phone] PCP - General Family Medicine 03/10/23 Home Care Coordinator Relationship Specialty Start [place] [address] [place] [id number] PCP - General 02/03/24 Home Care Coordinator Relationship Specialty Start Date End Date Joann Granados MD [address] [facility] [place] [phone] PCP - General Family Medicine 03/10/23 Home Care Coordinator Relationship Specialty Start Date End Date Joann Granados MD [address] [facility], [place] [id number] PCP - General 02/03/24 Goals (unrecognized section and content) Goals may be documented in a n alternate sectionGoals may be documented in an alternate sectionNot on filedocumented as of this encounterNot on filedocumented as of this encounter Reason for Visit (unrecogniz ed section and content) Specialty Diagnoses / Procedures Referred By Contac t Referred To Contact Physical Therapy Diagnoses Pain in left hip Other specified enthesopathies of left lower limb, excluding foot Procedures [facility] PHYSICAL THERAPY EVALUATION LOW COMPLEX 20 MINS Ashley Shin MD [address] [place] [address] Tere Moreno PT Referral ID Status Reason Start Date Expiration Date V isits Requested Visits Authorized [id number] Authorized 02/10/2024 08/08/2024 99 99 Reason Comments Follow-up Left hip, PT 1 times /week plus hep, rom has improved, still having pain Reason Comments Routine Visit FOR RECORDS PERTAINING TO PATIENTS WHO ARE [...] BE BASED ON THE PRIMARY CLINICAL RECORDS. [employer] provides no warranty or guarantee of the accuracy or completeness of information in this document.
[2024-05-01 02:06] LABS: AFP Value 61.8 ng/mL (.); Insulin Dep Diabetes No (.); Maternal Age At EDD 36.7 yr (.); OSBR Risk 1 IN 6916 (.); Results Report (.)
== END 2024-04-29 11:36 | disposition home or self-care (01) ==
LOC: LAB 11:35
PROVIDERS: PCP Family Medicine; Visit Provider Obstetrics & Gynecology
DX: Z34.92 Encounter for supervision of normal pregnancy, unspecified, second trimester (principal); Z36.89 Encounter for other specified antenatal screening
CPT/HCPCS: 36415; 82105

== ENCOUNTER 2024-05-02 20:33 | Outpatient (REF) | payer OTHER, SELFPAY ==
--- OUTSIDE RECORDS SUMMARY | 2024-05-02 20:36 | XMS_ITS | CCD ---
Author Organization [facility] Care Team Providers Care Marine Specialist Name Role Phone DOREEN, DR HOFFMAN Attending Unavailable DARWIN, DR JOANN Ramirez Primary Care Unavailable DOREEN, DR HOFFMAN Admitting Unavailable BALL, DR HOFFMAN Consulting Unavailable GARY, DR PAUL Admitting Unavailable GARY, DR PAUL Consulting Unavailable GARY, DR PAUL Attending Unavailable DARWIN, DR JOANN Ramirez Primary Care Unavailable Beverly Vega Attending Unavailable Dm Vegay Admitting Unavailable Dm Vegay Attending Provider Joann Granados MD Primary Care Provider [phone] SHIN, ASHLEY K Attending Unavailable JOANN GRANADOS [...] TERE Attending Unavailable SHIN, ASHLEY Referring Unavailable GARYDMY Attending Unavailable MORENO, TERE Attending Unavailable SHIN, ASHLEY Referring Unavailable MORENO, TERE Attending Unavailable SHIN, ASHLEY Referring Unavailable MORENO, TERE Attending Unavailable SHIN, ASHLEY Referring Unavailable MORENO, TERE Attending Unavailable SHIN, ASHLEY Referring Unavailable GARY, BEVERLY Attending Unavailable Allergies Allergy Classification Reported Allergen(s) Allergy Type Date of Onset Reaction(s) Facility (13 sources) Amoxicillin; Translations: [AMOXICILLIN] Drug Allergy 3 GI intolerance, GI Disturbance [facility] (2 sources) 12 Hour Decongestant Allergy to substance 3 Hives [facility] Medications Current Medications Medication Drug Class(es) Dates Sig (Normalized) Sig (Original) aspirin 81 mg oral tablet (4 sources) Platelet Aggregation Inhibitor, Nonsteroidal Anti-inflammatory Drug take 81 mg by mouth once daily BABY ASPIRIN PO Take 81 mg by mouth Daily Active take 1 tablet by mouth in the mo rning aspirin 81 mg Take 1 tablet (81 mg total) by mouth in the morning. Active doxycycline hyclate 100 mg delayed release [...] PAPILLOMAVIRUS] Onset: 03-08-2022 Episodic Other complications of (9 sources) Multigravida of advanced maternal age; Translations: [...] unspecified] Onset: 02-08-2024 Episodic Residual codes; unclassified (5 sources) Gestation period, 15 weeks; Translations: [15 weeks gestation of ] Onset: 04-04-2024 04-04-2024 Episodic Unclassified (1 source) New Patient Onset: 02-08-2024 Results Test Name Value Interpretation Reference Range Facility AFP, SERUM, OPEN SPINA BIFID Aon 05-01-2024 AFP MOM 1.18 . [facility] AFP VALUE 61.8 ng/mL . [facility] COMMENT: Comment . [facility] Comment on above: Cydney Rodriguez , Ph.D., [facility] Director References: Available Upon Request. Multiples Of Median Cutoffs For AFP Elevations Chiang 2.5 Black 2.8 IDD 2.0 Twins 4.5 Abbreviation Definitions IDD - Insulin Dep Diabetes OSBR - Open Spina Bifida Risk For further inquiries contact [employer] [facility] at [phone]. This test was developed and its performance characteristics determined by [employer]. It has not been cleared or approved by the Food and Drug Administration. Performed at: [facility] [address] [place], [place] [id number] Auto Suspension And Steering Mechanic: Marissa Kovacs [facility], Phone: [phone] GEST. AGE ON COLLECTION DATE 19.0 . weeks [facility] GESTAT. AGE BASED ON LMP . [facility] Comment on above: Recalculations are n ot recommended when gestational dating by LMP and ultrasound are within 10 days. INSULIN DEP DIABETES No . [facility] INTERPRETATION Comment . [facility] Comment on above: Interpretation: Scre en Negative This result is screen negative for OSB. The AFP MoM calculated is based on the gestational age provided. MS-AFP can identify up to 80% of open neural tube defects. Closed neural tube defects and some open defects may not be detected by this test. This test does not screen for Down Syndrome or Trisomy 18. If screening for Down Syndrome or Trisomy 18 is desired, contact [employer] to discuss available options. The [employer] recommends amniocentesis be offered to women age 35 and older. [age] [facility] MULTIPLE GESTATION No . [facility]alth[facility] OSBR RISK 1 IN 16 . [facility] Healt [facility]care RACE . [facility] [employer] RESULTS Report . [facility] [employer] TEST RESULTS: Negative . [facility] WEIGHT 135 . lbs [facility] [employer] N N LMP [id number] [phone] N 1 Y 135 N N N N N White/ [facility] CBC without diffon Hematocrit (Bld) [Volume fraction] 37.3 % [facility] Hemoglobin (Bld) [Mass/Vol] 12.7 g/dL [facility] Rbc Mcv (Fl) By Automated Count 94.4 [facility] Drug Screen, Urineon 024 Amphetamine/Methamph etamine Negative [facility] Barbiturate Screen Urine Negative [facility] Benzodiazepine Screen, Urine Negative [facility] Cocaine Metabolite Negative [facility] Mdma Negative [facility] Methadone,Meconium Negative [facility] Opiate Quantitative Urine Negative [facility] Oxycodone Negative [facility] Phencyclidine Negative [facility] Thc Marijuana, Urine Negative [facility] No Panel Informationon 02-15 [facility] Rubella IGG immune statuson 02-16-2024 Rubella immune IgG 3.94 [facility] Syphilis Total(Unknown Syphi lis Status)on 02-16-2024 Syphilis Non-Reactive [facility] No Panel Informationon 11-29 Human Chorionic Gonadotropin, Quant 2 mIU/mL [facility] Comment on above: 5-50 0.2-1 OKUQ52-16 0 1-2 PPJKQ335-4,000 2-3 OGVFH666-84,000 3-4 WEEKS1,000-50,000 4-5 WEEKS10,000-100,000 5-6 WEEKS15,000-200,000 6-8 WEEKS10,000-100,000 2-3 MONTHS No Panel Informationon 11-22 Human Chorionic Gonadotropin, Quant 3 mIU/mL [facility] Comment on above: 5-50 0.2-1 JNVG19-44 0 1-2 CDSUO658-6,000 2-3 NAABP407-96,000 3-4 WEEKS1,000-50,000 4-5 WEEKS10,000-100,000 5-6 WEEKS15,000-200,000 6-8 WEEKS10,000-100,000 2-3 MONTHS No Panel Informationon 11-16 Human Chorionic Gonadotropin, Quant 6 mIU/mL [facility] Comment on above: 5-50 0.2-1 SAVV74-27 0 1-2 ZUGPP762-2,000 2-3 HODGS440-42,000 3-4 WEEKS1,000-50,000 4-5 WEEKS10,000-100,000 5-6 WEEKS15,000-200,000 6-8 WEEKS10,000-100,000 2-3 MONTHS No Panel Informationon 11-08 Human Chorionic Gonadotropin, Quant 27 mIU/mL [facility] Comment on above: 5-50 0.2-1 IXLF91-28 0 1-2 VSQER603-3,000 2-3 YRYTK584-57,000 3-4 WEEKS1,000-50,000 4-5 WEEKS10,000-100,000 5-6 WEEKS15,000-200,000 6-8 WEEKS10,000-100,000 2-3 MONTHS Basophils Auto (Bld) [#/Vol] on 10-23-2023 Basophils (Bld) [#/Vol] 0.0 10 3/uL 0.0-0.1 [facility] Basophils/100 WBC Auto (Bld) on 10-23-2023 Basophils/100 WBC (Bld) 0.8 % 0.2-2.0 [facility] Eosinophils/100 WBC Auto (Bl d)on 10-23-2023 Eosinophils/100 WBC (Bld) 1.4 % 0.9-7.0 [facility] Erythrocyte distribution wid th Auto (RBC) [Ratio]on 10-23-2023 Erythrocyte distribution width (RBC) [Ratio] 11.9 % 11.0-15.0 [facility] Hematocrit Auto (Bld) [Volum e fraction]on 10-23-2023 Hematocrit (Bld) [Volume fraction] 36.0 % 36.0-48.0 [facility] Hemoglobin [Mass/volume] in Bloodon 10-23-2023 Hemoglobin (Bld) [Mass/Vol] 11.8 g/dL 12.0-16.0 [facility] Krzysztof 10-23-2023 L Specimen: [id number] Received: 10/26/23 Status: MAIA Reece Num: [id number] Spec Type: Surgical Subm Dr: Beverly Vega Tissues: A Products of Conception - Spontaneous or Missed (POC) Procedures: HE/3, Gross/Micro L4 Age/ Patient Sex Location Account Attending Physician Tiffanie Elizabeth 37/F LABELL [id number] Beverly Vega SPEC NUM: [id number] RECD: 10/26/23 STATUS: MAIA NEWELL NUM: [id number] JANIE: 10/23/[address]: Beverly Vega ENTERED: 10/26/23 [facility] DR: Héctor,Lab SPEC TYPE: Surgical DEPT: POOJA [...] cm possible area of villous tissue identified. Human Resources Consultant sections to include the possible villous tissue are submitted in A1?A3. Clinical history: Missed CPT Codes 24950 -------- -------- Specimen: [id number] Received: 10/26/23-130 Status: MAIA Newell Num: [id number] Spec Type: Surgical Subm Dr: Beverly Vega Tissues: A Products of Conception - Spontaneous or Missed (POC) Procedures: HE/3, Gross/Micro L4 -------- Patient: Tiffanie Elizabeth [id number] (Continued) -------- Signed (signature on file) Dante Palacios MD 10/27/23 1514 Normal [facility] - Hematology and Cell countson 10-23-2023 Immature granulocytes/100 WBC (Bld) 0.2 % 0.0-0.5 [facility] Leukocytes [#/volume] correc leroy for nucleated erythrocytes in Blood by Automated counon 10-23-2023 WBC corrected for nucl RBC Auto (Bld) [#/Vol] 5.1 10 3/uL 4.0-11.0 [facility] Lymphocytes Auto (Bld) [#/Vo l]on 10-23-2023 Lymphocytes (Bld) [#/Vol] 1.7 10 3/uL 1.2-3.8 [facility] Lymphocytes/100 WBC Auto (Bl d)on 10-23-2023 Lymphocytes/100 WBC (Bld) 32.8 % 20.5-60.0 [facility] MCH Auto (RBC) [Entitic mass ]on 10-23-2023 MCH (RBC) [Entitic mass] 31.1 pg 26.7-34.0 [facility] MCHC Auto (RBC) [Mass/Vol]on 10-23-2023 MCHC (RBC) [Mass/Vol] 32.8 g/dL 29.9-35.2 [facility] MCV Auto (RBC) [Entitic vol] on 10-23-2023 MCV (RBC) [Entitic vol] 95.0 fL 81.0-99.0 [facility] Monocytes Auto (Bld) [#/Vol] on 10-23-2023 Monocytes (Bld) [#/Vol] 0.3 10 3/uL 0.3-0.8 [facility] Monocytes/100 WBC Auto (Bld) on 10-23-2023 Monocytes/100 WBC (Bld) 5.5 % 1.7-12.0 [facility] Neutrophils Auto (Bld) [#/Vo l]on 10-23-2023 Neutrophils (Bld) [#/Vol] 3.0 10 3/uL 1.4-6.5 [facility] Neutrophils/100 WBC Auto (Bl d)on 10-23-2023 Neutrophils/100 WBC (Bld) 59.3 % 43.0-75.0 [facility] No Panel Informationon 10-22 Eosinophils # (Auto) 0.1 10 3/uL 0.0-0.7 [facility] Immature Granulocyte # (Auto) 0.01 10 3/uL 0.00-0.03 [facility] Platelet mean volume Auto (B ld) [Entitic vol]on 10-23-2023 Platelet mean volume (Bld) [Entitic vol] 9.0 fL 9.5-13.5 [facility] Platelets Auto (Bld) [#/Vol] on 10-23-2023 Platelets (Bld) [#/Vol] 182 10 3/uL 150-450 [facility] RBC Auto (Bld) [#/Vol]on RBC (Bld) [#/Vol] 3.79 10 6/uL 4.20-5.40 [facility] No Panel Informationon 10-11 Human Chorionic Gonadotropin, Quant 11844 mIU/mL [facility] Comment on above: 5-50 0.2-1 UIWG21-02 0 1-2 TDGRK876-0,000 2-3 CKWOJ983-75,000 3-4 WEEKS1,000-50,000 4-5 WEEKS10,000-100,000 5-6 WEEKS15,000-200,000 6-8 WEEKS10,000-100,000 2-3 MONTHS No Panel Informationon 10-06 Human Chorionic Gonadotropin, Quant 02630 mIU/mL [facility] Comment on above: 5-50 0.2-1 LLPU26-23 0 1-2 FYHTT055-5,000 2-3 SUPHC634-40,000 3-4 WEEKS1,000-50,000 4-5 WEEKS10,000-100,000 5-6 WEEKS15,000-200,000 6-8 WEEKS10,000-100,000 2-3 MONTHS No Panel Informationon 10-04 Human Chorionic Gonadotropin, Quant 37678 mIU/mL [facility] Comment on above: 5-50 0.2-1 TGIX62-05 0 1-2 YONMU825-5,000 2-3 YSFFL833-52,000 3-4 WEEKS1,000-50,000 4-5 WEEKS10,000-100,000 5-6 WEEKS15,000-200,000 6-8 WEEKS10,000-100,000 2-3 MONTHS PAP ACOG PANEL 2: 30 to 65on 03-11-2022 . . Normal [facility] Comment on above: Result Comment: Perf ormed at: WB Performed By: #### [id number] #### [facility] [address] [place] [address] Dr. Danni Jacobs Age Gdln ACOG Testing 30-65 Normal [facility] Comment on above: Performed By: #### [id number] #### [facility] [address] [place] [address] Dr. Danni Jacobs DIAGNOSIS: Comment Normal [facility] Comment on above: Result Comment: NEGA TIVE FOR INTRAEPITHELIAL LESION OR MALIGNANCY. THIS SPECIMEN WAS RESCREENED PART OF OUR PRESIDENT & CEO PROGRAM. Performed at: WB Performed By: #### [id number] #### [facility] [address] [place] [address] Dr. Danni Jacobs HPV Aptima Negative Normal Negative [facility] Comment on above: Result Comment: This nucleic acid amplification test detects fourteen high-risk HPV types (16,18,31,33,35,39,45,51,52,56,58,59,66,68) without differentiation. Performed at: =G Performed By: #### [id number] #### [facility] [address] [place] [address] Dr. Danni Jacobs Methodology: Comment Normal [facility] Comment on above: Result Comment: This liquid based ThinPrep(R) pap test was screened with the use of an image guided system. Performed at: WB Performed By: #### [id number] #### [facility] [address] [place] [address] Dr. Danni Jacobs Note: Comment Normal [facility] Comment on above: Result Comment: The Pap smear is a screening test designed to aid in the detection of premalignant and malignant conditions of the uterine cervix. It is not a diagnostic procedure and should not be used as the sole means of detecting cervical cancer. Both false-positive and false-negative reports do occur. . Performed at: WB Performed By: #### [id number] #### [facility] [address] [place] [address] Dr. Danni Jacobs Performed by: Comment Normal [facility] Comment on above: Result Comment: Rocky Hull Floor Trader (ASCP) Performed at: WB Performed By: #### [id number] #### [facility] [address] [address] [address] Danni Jacobs QC reviewed by: Comment Normal [facility] Comment on above: Result Comment: Betzaida Ge, Supervisory Floor Trader (ASCP) Performed at: WB Performed By: #### [id number] #### [facility] [address] [address] [address] Danni Jacobs Specimen adequacy: Comment Normal [facility] Comment on above: Result Comment: Sati sfactory for evaluation. Endocervical and/or squamous metaplastic cells (endocervical component) are present. Performed at: WB Performed By: #### [id number] #### [facility] [address] [address] [address] Danni Jacobs GLUCOSE BLOODon 04-22-2021 Glucose [Mass/Vol] 99 mg/dL Normal 74-106 [facility] Comment on above: Performed By: #### G YOSEPH, LIPID #### [facility] [address] [address] [address] Danni Jacobs LIPID PROFILEon 04-22-2021 CHOL-HDL RATIO NORM SEE BELOW Normal [facility] Comment on above: Result Comment: 3.3 - 4.4 LOW RISK 4.4 - 7.1 AVERAGE RISK 7.1 - 11.0 MODERATE RISK >11.0 HIGH RISK Performed By: #### G YOSEPH, LIPID #### [facility] [address] [address] [address] Danni Jacobs Cholesterol [Mass/Vol] 157 mg/dL Normal <=200 [facility] Comment on above: Performed By: #### G YOSEPH, LIPID #### [facility] [address] [address] [address] Danni Jacobs Cholesterol in HDL [Mass/Vol] 74 mg/dL Normal [facility] Comment on above: Performed By: #### G YOSEPH, LIPID #### [facility] [address] [address] [address] Danni Jacobs Cholesterol in LDL [Mass/Vol] 71.2 mg/dL Normal [facility] Comment on above: Performed By: #### G YOSEPH, LIPID #### [facility] [address] [address] [address] Danni Jacobs Cholesterol.total/Ch olesterol in HDL [Mass ratio] 2.1 {ratio} Normal [facility] Comment on above: Performed By: #### G YOSEPH, LIPID #### [facility] [address] [address] [address] Danni Jacobs HDL NORMAL > or = 60 mg/dl - LO W CARDIOVASCULAR RISK <40 mg/dl - HIGH CARDIOVASCULAR RISK Normal [facility] Comment on above: Performed By: #### G YOSEPH, LIPID #### [facility] [address] [address] [address] Danni Jacobs LDL CALC NORMAL SEE BELOW Normal [facility] Comment on above: Result Comment: <100 mg/dl OPTIMAL 100 - 129 mg/dl NEAR OR ABOVE OPTIMAL 130 - 159 mg/dl BORDERLINE HIGH 160 - 189 mg/dl HIGH >190 mg/dl VERY HIGH Performed By: #### G YOSEPH, LIPID #### [facility] [address] [address] [address] Danni Jacobs Triglyceride [Mass/Vol] 59 mg/dL Normal <=150 [facility] Comment on above: Performed By: #### G YOSEPH, LIPID #### [facility] [address] [address] [address] Danni Jacobs VLDL CALC 11.8 mg/dL Normal [facility] Comment on above: Performed By: #### G YOSEPH, LIPID #### [facility] [address] [address] [address] Danni Jacobs Vital Signs Date Time Vital Sign Value Performing Clinician Faci lity 04-04-2024 14:55-0400 Body mass index (BMI) [Ratio] 21.27 kg/m2 SocialThreader Work Phone: [facility] [employer] 04-04-2024 14:55-0400 Body weight 61.6 kg SocialThreader Work Phone: [facility] 04-04-2024 14:55-0400 Diastolic blood pressure 70 mm[Hg] Beverly Gary DO Work Phone: [facility] 04-04-2024 14:55-0400 Systolic blood pressure 116 mm[Hg] Beverly Gary DO Work Phone: [facility] 04-04-2024 08:54-0400 Body height 170.2 cm Ashley Shin MD Work Phone: [facility] 04-04-2024 08:54-0400 Body mass index (BMI) [Ratio] 19.73 kg/m2 Ashley Shin MD Work Phone: [facility] 04-04-2024 08:54-0400 Body weight 57.15 kg Ashley Shin MD Work Phone: [facility] 12-01-2023 16:10-0400 Body height 170.18 cm Beverly Gary Work Phone: [facility] 12-01-2023 16:10-0400 Body mass index (BMI) [Ratio] 19.5 kg/m2 Beverly Gary Work Phone: [facility] 12-01-2023 16:10-0400 Body weight 56.69 kg Beverly Gary Work Phone: [facility] 12-01-2023 16:10-0400 Diastolic blood pressure 78 mm[Hg] Beverly Gary Work Phone: [facility] 12-01-2023 16:10-0400 Systolic blood pressure 112 mm[Hg] Beverly Gary Work Phone: [facility] Encounters Encounter Date Encounter Type Care Provider Facility Start: 04-29-2024 End: 05-01-2024 [facility] Result Encounter Beverly Gary DO Work Phone: [facility] External Department Unsolicited Start: 04-29-2024 End: 05-01-2024 [facility] Result Encounter Beverly Gary DO Work Phone: [facility] External Department Unsolicited Start: 04-08-2024 End: 04-08-2024 Chart abstracting Scanning Provider External [facility] Start: 04-04-2024 End: 04-04-2024 flow sheet Beverly Gary DO Work Phone: [facility] Comment on above: Second trimester pre gnancy; Screening, , for anatomic survey; with 15 completed weeks gestation Start: 04-04-2024 End: 04-04-2024 ambulatory BEVERLY GARY Not Available Start: 04-04-2024 End: 04-04-2024 Bamboo flowsheet Beverly Gary DO Work Phone: [facility] Start: 04-04-2024 End: 04-04-2024 Bamboo flowsheet Beverly Gary DO Work Phone: [facility] Start: 04-04-2024 End: 04-04-2024 ambulatory ASHLEY SHIN [facility] Start: 04-04-2024 End: 04-04-2024 Office outpatient visit 15 minutes Ashley Shin MD Work Phone: [facility] Comment on above: [...] PT Start: 03-23-2024 End: 03-23-2024 ambulatory Tere Mroeno PT [facility] Comment on above: [...] [facility] Start: 02-08-2024 ambulatory [facility] Start: 12-01-2023 End: 12-01-2023 ambulatory Beverly Gary Work Phone: [facility] Work Phone: Start: 12-01-2023 End: 12-01-2023 Patient encounter procedure Beverly Gary Work Phone: [facility] Physician [facility] Work Phone: Start: 11-30-2023 Non-patient / Non-visit Beverly Gary Work Phone: [facility] Work Phone: Start: 11-23-2023 Non-patient / Non-visit Beverly Gary Work Phone: [facility] Work Phone: Start: 11-17-2023 Non-patient / Non-visit Beverly Gary Work Phone: [facility] Work Phone: Start: 11-09-2023 Non-patient / Non-visit Beverly Gary Work Phone: [facility] Physician [facility] Work Phone: Start: 11-09-2023 End: 11-09-2023 ambulatory EMELY HUNTER Not Available Start: 10-23-2023 End: 10-23-2023 ambulatory Beverly Gary Facility:[facility] Start: 10-23-2023 End: 10-23-2023 ambulatory Beverly Gary Work Phone: [facility] Work Phone: Start: 10-23-2023 End: 10-23-2023 Departed Referred Beverly Gary Work Phone: [facility] Start: 10-23-2023 Non-patient / Non-visit Beverly Gary Work Phone: [facility] Work Phone: Start: 10-12-2023 Non-patient / Non-visit Beverly Gary Work Phone: [facility] Work Phone: Start: 10-07-2023 Non-patient / Non-visit Beverly Gary Work Phone: [facility] Work Phone: Start: 10-05-2023 Non-patient / Non-visit Beverly Gary Work Phone: [facility] Work Phone: Start: 03-03-2022 End: 03-03-[address] BEVERLY VEGA Facility:[facility] Start: 04-28-2021 Encounter for genera l adult medical examination without abnormal findings DR DALTON LOGAN [facility] Start: 04-22-2021 End: 04-23-[address] DALTON LOGAN Facility:[facility] Start: 04-22-2021 End: 04-23-2021 Encounter for general adult medical examination without abnormal findings DR DALTON LOGAN Facility:[facility] Procedures Date Procedure Procedure Detail Performing Clinician Start: 04-29-2024 AFP, SERUM, OPEN SPI NA BIFIDA Beverly Vega DO Work Phone: Start: 04-04-2024 Follow-up visit Follow-up ASHLEY SHIN Start: 02-16-2024 Blood count complete automated Not In System Ref Prov Start: 02-16-2024 Drug scrn 1+ class nonchromo Not In System Ref Prov Start: 02-16-2024 Syphilis test non-treponemal antibody qual Not In System Ref Prov Plan of Treatment Date Care Activity Detail Author Start: 04-04-2025 Adult BMI Screening Adult BMI Screen ing [facility] Start: 04-04-2025 Tobacco Screening Tobacco Screening [facility] Start: 02-07-2025 Adult BMI Screening Adult BMI Screen ing [facility] Start: 05-27-2024 End: 05-27-2024 Patient encounter procedure [facility] [place] Start: 05-02-2024 End: 05-02-2024 Patient encounter procedure 05/02/2024 3:30 PM EST Routine [facility] [address] [facility] [place] [id number] Emely Hunter PA [address] [place] [address] [facility] Start: 04-26-2024 End: 04-26-2024 Patient encounter procedure 04/26/2024 11:00 AM EST Office Visit [facility] [address] [place] [id number] Beverly Vega, [address] [place] [address] [facility] Start: 04-04-2024 End: 04-04-2024 [...] CI PT [address] [place] [address] Tere Moreno, PT [facility] Start: 02-21-2024 Influenza vaccination Influenza Vacc ine [facility] Start: 12-10-2008 Screening for malign ant neoplasm of cervix Pap Smear [facility] Start: 12-10-2006 DTaP,Tdap and Td Vaccines (1 - Tdap) DTaP,Tdap and Td Vaccines (1 - Tdap) [facility] Start: 1999 Depression Screening Depression Scre ening [facility] Start: 1999 Tobacco Screening Tobacco Screening [facility] XR Hip - left 2 Views [facility] Payers Date Payer Category Payer Commercial Managed C are - POS [employer] [id number] 2022 Private Health Insurance [id number] 2022 Unknown NILAM JORGENSEN [id number] 2022-Present [phone] [id number] [place] [phone]. 2.7.3.042011.315 1987 Unknown [id number] 2.16.840.1.819170.3.579. 2.593 1987 Unknown [id number] 2.16.840.1.173453.3.579. 2.593 1987 Unknown [id number] 2.16.840.1.530857.3.579. 2.1285 1987 Unknown [id number] 2.16.840.1.900320.3.579. 2.1285 1987 Unknown [id number] 2.16.840.1.436524.3.579. 2.1285 1987 Unknown [id number] 2.16.840.1.289820.3.579. 2.9 1987 Unknown [id number] 2.16.840.1.875157.3.579. 2.1258 1987 Unknown [id number] 2.16.840.1.059150.3.579. 2.9 1987 Unknown [id number] 2.16.840.1.113722.3.579. 2.1258 1987 Unknown [id number] 2.16.840.1.217735.3.579. 2.9 1987 Unknown [id number] 2.16.840.1.156983.3.579. 2.1258 1987 Unknown [id number] 2.16.840.1.266840.3.579. 2.9 1987 Unknown [id number] 2.16.840.1.360666.3.579. 2.9 1987 Unknown [id number] 2.16.840.1.742160.3.579. 2.1259 1987 Unknown [id number] 2.16.840.1.327144.3.579. 2.1259 1987 Unknown [id number] 2.16.840.1.425018.3.579. 2.1259 1987 Unknown [id number] 2.16.840.1.423255.3.579. 2.1259 1959 Unknown [id number] Social History Date Type Detail Facility Tobacco smoking stat us NHIS Unknown if ever smoked [facility] Work Phone: Start: 1987 Sex Assigned At Female [facility] Start: 02-26-2023 End: 04-04-2024 Tobacco smoking status NHIS Never smoked tobacco [facility] Start: 11-09-2023 End: 04-04-2024 History of Social function [facility] Start: 11-09-2023 End: 04-04-2024 Tobacco use panel [facility] Start: 01-01-2024 [facility] Start: 1987 Sex assigned at Not on file [facility] Start: 04-04-2024 Tobacco use and exposure Smokeless tobacco non-user [facility] Start: 04-04-2024 End: 04-08-2024 Alcoholic beverage intake Ex-drinker (finding) [facility] Childcare Unknown [facility] Start: 12-30-2023 Gender identity Identifies as female gender (finding) [facility] Start: 12-30-2023 Sexual orientation Heterosexual (finding) [facility] Start: 01-25-2015 Sex Female (finding) [facility] Clinical Notes 03-23-2024 to 04-04-2024 Kalie Loera [...] nursing note reviewed. Exam conducted with a senior network security engineer present. Vitals: Estimated body mass index is [...] Aspirin. Discussed again in regards to seeing [facility] & referral will be completed. Patient to have NST/BPP starting at 32 weeks gestation. Patient will have Anatomy Scan done at [facility]. Patient is Rh Negative and will require [...] Beverly Vega DO documented in this encounter [facility] 04-04-2024 History of Present illness Narrative Chief [...] with this plan. documented in this encounter [facility] 04-01-2024 History of Present illness Narrative Physical [...] and it pops a lot randomly. Precautions: [place] Subjective: Pt states overall, ROM has improved. [...] to be instructed in home exercise program. 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 Goal 5: Pt to score no less than 65/80 on LEFS indicating improved QOL. Pt will benefit from skilled PT for 2-3x/week from 02/10/2024 to 04/20/2024 to address the above impairments. I hereby deem this POC medically necessary. Please sign below. Date: documented in this encounter [facility] 03-23-2024 History of Present illness Narrative Physical [...] and it pops a lot randomly. Precautions: [place] Subjective: Pt states range of motion of [...] to be instructed in home exercise program. Snf Goals: To be met in 10 weeks [...] sign below. Date: documented in this encounter [facility] Evaluation note No assessment inform ation available [facility] Work Phone: Evaluation note Diagnosis Onset Date Left hip pain acute [facility] Work Phone: Evaluation note* Diagnosis Pain of left hip- Primary Hip flexor tendinitis, left [facility] Diagnosis Pain of left hip- Primary Hip flexor tendinitis, left [facility]* Diagnosis Femoroacetabular impingement of left hip- Primary [facility] Diagnosis Second trimester state, incidental Screening, , for anatomic survey Encounter for anatomic survey with 15 completed weeks gestation documented in this encounter [facility]ructionsNot on filedocumented in [facility] System[facility]ructionsNot on filedocumented in this [facility] Summary Purpose Family History No Family History Records FoundNo Family History Records FoundNo Family History Records FoundNo Family History Records Found Advance Directives Advance Directive Response Recorded Date/ Time Advance Directives No November 30 3:47pm Additional Source Comments INFORMATION SOURCE (unrecogn ized section and content) DATE CREATED AUTHOR 03/22/2022 [facility] DATE CREATED AUTHOR AUTHOR'S ORGANIZ ATION 10/28/2023 [facility] DATE CREATED AUTHOR AUTHOR'S ORGANIZ ATION 04/05/2024 [facility] DATE CREATED AUTHOR AUTHOR'S ORGANIZ ATION 04/06/2024 [facility] EPIC Care Teams [...] December 01, 2023 End: December 01, 2023 Marine Specialist Relationship Specialty Start Date End Date Joann Granados MD [address] [place] [phone] PCP - General Family Medicine 03/10/23 Marine Specialist Relationship Specialty Start Date End Date Joann Granados MD [address] [place] [phone] PCP - General Family Medicine 03/10/23 Marine Specialist Relationship Specialty Start Date End Date Joann Granados MD [address] [place] [phone] PCP - General Family Medicine 03/10/23 Marine Specialist Relationship Specialty Start Date End Date Joann Granados MD [address] [place] [phone] PCP - General Family Medicine 03/10/23 Marine Specialist Relationship Specialty Start Date End Date Joann Granados MD [address] [place], [place] [id number] PCP - General 02/03/24 Marine Specialist Relationship Specialty Start Date End Date Joann Granados MD [address] [place] [phone] PCP - General Family Medicine 03/10/23 Marine Specialist Relationship Specialty Start Date End Date Joann Granados MD [address] [place] [address] PCP - General 02/03/24 Marine Specialist Relationship Specialty Start Date End Date Joann Granados MD [address] [place] [phone] PCP - General Family Medicine 03/10/23 Goals (unrecognized section and content) Goals may [...] of left lower limb, excluding foot Procedures [facility] EVAL[facility] LOW COMPLEX 20 MINS Ashley Shin MD [address] [place] [address] Tere Moreno PT Referral ID Status Reason Start Date Expiration Date V isits Requested Visits Authorized [id number] Authorized 02/10/2024 08/08/2024 99 99 Reason Comments [...] BE BASED ON THE PRIMARY CLINICAL RECORDS. [employer] provides no warranty or guarantee of the accuracy or completeness of information in this document.
== END 2024-05-02 20:34 | disposition home or self-care (01) ==
LOC: LAB 20:33
PROVIDERS: PCP Family Medicine; Visit Provider Physician Assistant
DX: Z01.419 Encounter for gynecological examination (general) (routine) without abnormal findings (principal)
CPT/HCPCS: 87624; 88175

== ENCOUNTER 2024-06-25 20:12 | Emergency (ER) | payer OTHER, SELFPAY ==
[2024-06-25 20:24] VITALS: BP 106/68; PULSE 124; TEMP 38.8; O2SAT 98; BMI 21.9
[2024-06-25 20:57] VITALS: TEMP 38.8
[2024-06-25] MEDS: ACETAMINOPHEN 325 MG TABLET 975 MG PO (20:57)
--- NOTE | 2024-06-25 21:24 | ED.GENADUL1 ---
HPI HPI - General Adult General Chief complaint: Weakness Stated complaint: FLU LIKE SYMPTOMS, 26 WKS PREG-FBC/ THRU ED Time Seen by Provider: 06/25/24 20:34 Source: patient Mode of arrival: walk-in History of Present Illness HPI narrative: 38-year-old female presents for not feeling well. She has had some sinus problems for the last 5 weeks but over the last day she started to feel worse with some bodyaches and she has been coughing and she developed a fever. She had a subtherapeutic dose of Tylenol before coming in. She is , 27 weeks, and has had no vaginal bleeding in is feeling the motion normally. Related Data Home Medications ?Medication ?Instructions ?Recorded ?Confirmed docusate sodium 100 mg capsule 100 mg PO BID 10/23/23 06/25/24 (Colace) vits no.130-ferrous fum 1 tab PO DAILY 10/23/23 06/25/24 27 mg iron-folic acid 800 mcg tablet ( Vitamin) aspirin 81 mg capsule 81 mg PO DAILY 06/25/24 06/25/24 Previous Rx's ?Medication ?Instructions ?Recorded doxycycline hyclate 100 mg capsule 100 mg PO BID 7 days #14 caps 10/23/23 ibuprofen 800 mg tablet 800 mg PO Q8H PRN pain 14 days #40 10/23/23 tabs oseltamivir 75 mg capsule (Tamiflu) 75 mg PO BID #9 caps 06/25/24 Allergies Allergy/AdvReac Type Severity Reaction Status Date / Time No Known Drug Allergies Allergy Verified 06/25/24 20:22 Opioid HPI Opioid Management Most Recent Opioid Data: Last Pain Scale 3 10/23/23 13:25 10/23/23 Review of Systems ROS Narrative A ten point review of systems is negative except as noted above. 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 [[place]] (ICD-10) Seasonal allergies ?J30.2 - Other seasonal allergic rhinitis (ICD-10) Surgical History (Updated 10/23/23 @ 10:08 by Merly Gutierrez RN) [place] teeth extracted ?K08.409 - Partial loss of teeth, unspecified cause, unspecified class (ICD-10) H/O knee surgery ?Z98.890 - Other specified postprocedural states (ICD-10) Family History (Updated 10/23/23 @ 10:09 by Merly Gutierrez RN) Other Anxiety Family history of hypertension GERD (gastroesophageal reflux disease) Social History (Updated 10/23/23 @ 10:10 by Merly Gutierrez, RN) Within the past year, how often did you have a drink containing alcohol: never Score interpretation: A score less than 3 is consistent with normal alcohol consumption. 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 General: The patient appears in no apparent distress. Patient is resting comfortably on cart. Skin: Warm, dry, no pallor noted. There is no rash noted. Head: Normocephalic, atraumatic Eye: Normal conjunctiva, no drainage Ears, Nose, Mouth, and Throat: oral mucosa is moist. Nares patent. She has obvious nasal congestion Cardiovascular: Regular Rate and Rhythm, mildly tachycardic Respiratory: Patient is in no distress, no accessory muscle use, lungs are clear to auscultation, no wheezing, rales or rhonchi Back: non-tender GI: Gravid soft and nontender Musculoskeletal: The patient has no evidence of calf tenderness, no pitting edema, symmetrical pulses noted bilaterally Neurological: A&O, normal speech Psychiatric: Cooperative Constitutional Vital Signs, click to edit/add: Last Vital Signs Temp 98.7 F 06/25/24 22:45 Pulse 124 H 06/25/24 20:24 Resp 20 06/25/24 20:24 BP 106/68 06/25/24 20:24 Pulse Ox 98 06/25/24 20:24 O2 Del Method Room Air 06/25/24 20:24 Course Vital Signs Vital signs: Vital Signs Temperature 102 F H 06/25/24 20:24 Pulse Rate 124 H 06/25/24 20:24 Respiratory Rate 20 06/25/24 20:24 Blood Pressure 106/68 06/25/24 20:24 Pulse Oximetry 98 06/25/24 20:24 Oxygen Delivery Method Room Air 06/25/24 20:24 Temperature 98.7 F 06/25/24 22:45 Pulse Rate 124 H 06/25/24 20:24 Respiratory Rate 20 06/25/24 20:24 Blood Pressure 106/68 06/25/24 20:24 Pulse Oximetry 98 06/25/24 20:24 Oxygen Delivery Method Room Air 06/25/24 20:24 Medical Decision Making MDM Narrative Medical decision making narrative: The patient tested positive for influenza A, COVID is negative. Blood work is nonspecific. She was given IV fluids and Tylenol. We discussed Tamiflu and she requested that I speak to Dr. Vega. Dr. Vega and I have agreed that the patient will be prescribed Tamiflu and she was given her first dose here. Treatment diagnosis and follow-up were discussed with the patient. Differential Diagnosis Differential Diagnosis: Viral illness, influenza, COVID Lab Data Lab results reviewed: Yes I reviewed the patient's lab results Labs: Lab Results 06/25/24 06/25/24 06/25/24 Range/Units 20:55 21:20 21:30 WBC 8.2 (4.0-11.0) 10^3/uL RBC 2.96 L (4.20-5.40) 10^6/uL Hgb 9.9 L (12.0-16.0) g/dL Hct 28.7 L (36.0-48.0) % MCV 97.0 (81.0-99.0) fL MCH 33.4 (26.7-34.0) pg MCHC 34.5 (29.9-35.2) g/dL RDW 13.1 (11.0-15.0) % Plt Count 170 (150-450) 10^3/uL MPV 9.0 L (9.5-13.5) fL Seg Neuts % (Manual) 90.0 H (43.0-75.0) Band Neutrophils % 2.0 (0-5) % Lymphocytes % (Manual) 2.0 L (20.5-60.0) % Monocytes % (Manual) 5.0 (1.7-12.0) % Eosinophils % (Manual) 1.0 (0.9-7.0) % Basophils % (Manual) 0.0 L (0.2-2.0) % Neutrophils # (Manual) 7.38 H (1.4-6.5) 10^3/uL Band Neutrophils # 0.2 (0.0-0.3) 10^3/uL Lymphocytes # (Manual) 0.16 L (1.20-3.80) 10^3/uL Monocytes # (Manual) 0.41 (0.30-0.80) 10^3/uL Eosinophils # (Manual) 0.08 (0.00-0.70) 10^3/uL Basophils # (Manual) 0.00 (0.00-0.10) 10^3/uL Sodium 130 L (136-145) mmol/L Potassium 3.7 (3.5-5.1) mmol/L Chloride 99 (98-107) mmol/L Carbon Dioxide 21.2 (21.0-32.0) mmol/L Anion Gap 13.5 BUN 7.0 (7.0-18.0) mg/dL Creatinine 0.89 (0.55-1.02) mg/dL Est GFR ( Amer) >60 (>=60 mL/min/1.73m^2) Est GFR (Non-Af Amer) >60 (>=60 mL/min/1.73m^2) BUN/Creatinine Ratio 7.9 Glucose 98 (74-106) mg/dL Calcium 8.2 L (8.5-10.1) mg/dL Urine Color Dk yellow (YELLOW) Urine Clarity Cloudy A (CLEAR) Urine pH 7.5 (5.0-9.0) Ur Specific [place] 1.015 (1.005-1.025) Urine Protein Trace (NEG/TRACE) mg/dL Urine Glucose (UA) Negative (NEGATIVE) mg/dL Urine Ketones 15 A (NEGATIVE) mg/dL Urine Occult Blood Negative (NEGATIVE) Urine Nitrite Negative (NEGATIVE) Urine Bilirubin Negative (NEGATIVE) Urine Urobilinogen 1.0 (0.2-1.0) EU/dL Ur Leukocyte Esterase Negative (NEGATIVE) Urine RBC None seen (0-2) #/HPF Urine WBC 5-10 A (NONE SEEN) #/HPF Ur Squamous Epith Cells Many A (NONE/RARE) #/LPF Urine Crystals None seen (None Seen) #/HPF Amorphous Sediment Many Urine Bacteria Large A (NONE SEEN) #/HPF Urine Casts None seen (NONE SEEN) #/LPF Urine Mucus None seen (NONE SEEN) Ur Culture Indicated? Yes Influenza Type A Ag Positive A Influenza Type B Ag Negative SARS-CoV-2 Ag (CV2AG) Negative (NEGATIVE) Ref Lab Order Date 06/25/24 Ref Lab Test Name Urine culture Ref Test Addition Info [facility] Discharge Plan Discharge Chief Complaint: Weakness Clinical Impression: Influenza A Patient Disposition: Home, Self-Care Time of Disposition Decision: 22:33 Condition: Good Mode of Transportation: Private Vehicle Prescriptions / Home Meds: New oseltamivir [Tamiflu] 75 mg capsule 75 mg PO BID Qty: 9 0RF Rx Instructions: Next dose ThursdayJune 26 No Action aspirin 81 mg capsule 81 mg PO DAILY docusate sodium [Colace] 100 mg capsule 100 mg PO BID Vitamin 27 mg iron- 800 mcg tablet 1 tab PO DAILY doxycycline hyclate 100 mg capsule 100 mg PO BID 7 Days Qty: 14 0RF ibuprofen 800 mg tablet 800 mg PO Q8H PRN (Reason: pain) 14 Days Qty: 40 0RF Print Language: Cambodian Instructions: Influenza (ED) Referrals: Joann Dumont MD [Primary Care Provider] - 1 week
[2024-06-25 21:45] LABS: Influenza Virus A Antigen Positive; Influenza Virus B Antigen Negative; Internal Control Within Normal Limits; SARS-CoV-2 Ag NEGATIVE (NEGATIVE)
[2024-06-25 21:52] LABS: Hematocrit 28.7 % (36.0-48.0); Hemoglobin 9.9 g/dL (12.0-16.0); Mean Corpuscular HGB Conc 34.5 g/dL (29.9-35.2); Mean Corpuscular Hemoglobin 33.4 pg (26.7-34.0); Platelet Count 170 10^3/uL (150-450); Red Blood Count 2.96 10^6/uL (4.20-5.40); Red Cell Distribution Width 13.1 % (11.0-15.0); White Blood Count 8.2 10^3/uL (4.0-11.0)
[2024-06-25] MEDS: 0.9 % SODIUM CHLORIDE 1,000 ML 1000 ML IV (21:58)
[2024-06-25 22:00] LABS: Anion Gap 13.5; Carbon Dioxide 21.2 mmol/L (21.0-32.0); Chloride 99 mmol/L (98-107); Glucose 98 mg/dL (74-106); Potassium 3.7 mmol/L (3.5-5.1); Sodium 130 mmol/L (136-145)
[2024-06-25 22:01] LABS: Bilirubin Urine NEGATIVE (NEGATIVE); Blood Urine NEGATIVE (NEGATIVE); Glucose Urine UA NEGATIVE (NEGATIVE); Ketones Urine 15 mg/dL (NEGATIVE); Leukocyte Esterase Urine NEGATIVE (NEGATIVE); Nitrite Urine NEGATIVE (NEGATIVE); Protein Urine TRACE mg/dL (NEG/TRACE); Specific Gravity Urine 1.015 (1.005-1.025); pH Urine 7.5 (5.0-9.0)
[2024-06-25 22:01] LABS: BUN Creatinine Ratio 7.9; Calcium 8.2 mg/dL (8.5-10.1); Estimated GFR (African America >60 (>=60 mL/min/1.73m^2); Estimated GFR (Non-African Ame >60 (>=60 mL/min/1.73m^2)
[2024-06-25 22:02] LABS: Band Neutrophils Absolute 0.2 10^3/uL (0.0-0.3); Eosinophils Absolute Manual 0.08 10^3/uL (0.00-0.70); Lymphocytes Absolute Manual 0.16 10^3/uL (1.20-3.80); Monocytes Absolute Manual 0.41 10^3/uL (0.30-0.80); Segmented Neut Absolute Manual 7.38 10^3/uL (1.4-6.5)
[2024-06-25 22:05] LABS: Clarity Urine CLOUDY (CLEAR); Color Urine DK YELLOW (YELLOW)
[2024-06-25 22:09] LABS: Amorphous Sediment Urine MANY; Bacteria Urine LARGE #/HPF (NONE SEEN); Cast Seen? NONE SEEN #/LPF (NONE SEEN); Crystals Seen? None Seen #/HPF (None Seen); Mucus Urine NONE SEEN (NONE SEEN); RBC Urine NONE SEEN #/HPF (0-2); Squamous Epithelial Cell Urine MANY #/LPF (NONE/RARE); Urine Culture Indicated YES
[2024-06-25 22:12] LABS: BOX Test Reference Lab Firelands
[2024-06-25] MEDS: OSELTAMIVIR PHOSPHATE 75 MG CAPSULE PO (22:40)
[2024-06-25 22:45] VITALS: TEMP 37.1
[2024-06-25 22:52] VITALS: BP 97/59; PULSE 101; O2SAT 97
== END 2024-06-25 22:55 | disposition home or self-care (01) ==
PROVIDERS: Emergency Provider Emergency Medicine; PCP Family Medicine
DX: O99.512 Diseases of the respiratory system complicating pregnancy, second trimester (principal); J10.1 Influenza due to other identified influenza virus with other respiratory manifestations; Z3A.27 27 weeks gestation of pregnancy
CPT/HCPCS: 36415; 80048; 81001; 85007; 85027; 87086; 87804; 87811; 99284

== ENCOUNTER 2024-07-02 12:32 | Outpatient (OUT) | payer OTHER, SELFPAY ==
--- OUTSIDE RECORDS SUMMARY | 2024-07-02 12:34 | XMS_ITS | CCD ---
Author Organization [facility] Care Team Providers Care Cyber Threat Analyst Name Role Phone DOREEN, DR HOFFMAN Attending Unavailable DARWIN, DR JEN Ramirez Primary Care Unavailable DOREEN, DR HOFFMAN Admitting Unavailable BALL, DR HOFFMAN Consulting Unavailable GARY, DR PAUL Admitting Unavailable GARY, DR PAUL Consulting Unavailable GARY, DR PAUL Attending Unavailable DARWIN, DR JEN Ramirez Primary Care Unavailable Scooby Vega Attending Unavailable GaryLinhy Admitting Unavailable Gary, Scooby Attending Provider Jen Granados MD Primary Care Provider [phone] SHIN, ASHLEY K Attending Unavailable JEN GRANADOS Referring Unavailable JEN GRANADOS Primary Care Unavailable SHIN, ASHLEY K Attending Unavailable JEN GRANADOS Referring Unavailable JEN GRANADOS Primary Care Unavailable Jen Granados MD Primary Care Provider [phone] EMELY HUNTER Attending Unavailable MORENO, GRETCHEN Attending Unavailable SHIN, ASHLEY Referring Unavailable MORENO, GRETCHEN Attending Unavailable SHIN, ASHLEY Referring Unavailable MORENO, GRETCHEN Attending Unavailable SHIN, ASHLEY Referring Unavailable MORENO, GRETCHEN Attending Unavailable SHIN, ASHLEY Referring Unavailable GARY, SCOOBY Attending Unavailable MORENO, GRETCHEN Attending Unavailable SHIN, ASHLEY Referring Unavailable MORENO, GRETCHEN Attending Unavailable SHIN, ASHLEY Referring Unavailable MORENO, GRETCHEN Attending Unavailable SHIN, ASHLEY Referring Unavailable MORENO, GRETCHEN Attending Unavailable SHIN, ASHLEY Referring Unavailable GARY, SCOOBY Attending Unavailable EMELY HUNTER Attending Unavailable SCOOBY VEGA Attending Unavailable Jen Granados MD Primary Care Provider Jae Cervantes DO Attending Provider Unavailab le Allergies Allergy Classification Reported Allergen(s) Allergy Type Date of Onset Reaction(s) Facility (20 sources) Amoxicillin; Translations: [AMOXICILLIN] Drug Allergy 3 GI intolerance, GI Disturbance [facility] (3 sources) 12 Hour Decongestant Allergy to substance 3 Hives [facility] Medications Current Medications Medication Drug Class(es) Dates Sig (Normalized) Sig (Original) aspirin 81 mg oral tablet (16 sources) Platelet Aggregation Inhibitor, Nonsteroidal Anti-inflammatory Drug take 81 mg by mouth once daily BABY ASPIRIN PO Take 81 mg by mouth Daily Active take 1 tablet by mouth in the mo rning aspirin 81 mg Take 1 tablet (81 mg total) by mouth in the morning. Active Blood Glucose Monitoring Suppl (D-Care Glucometer) w/Device kit (5 sources) Start: 06-02-2024 End: 06-02-2025 Blood Glucose Monitoring Suppl (D-Care Glucometer) w/Device kit Indications: Gestational diabetes mellitus (GDM), antepartum, gestational diabetes method of control unspecified , Elevated glucose tolerance test 1 kit Daily Use four times daily to check FSBS. In the morning prior to breakfast & 1 hour after each meal for a total of 4times daily. 1 kit 06/02/2024 06/02/2025 Active doxycycline hyclate 100 mg oral capsule (5 sources) Tetracycline -class Drug Start: 10-23-2023 End: 02-12-2024 take 1 capsule by mouth in the morning doxycycline (Vibramycin) 100 MG capsule Take 100 mg by mouth in the morning and 100 mg before bedtime. 10/23/2023 02/12/2024 Discontinued (Other) End: 05-27-2024 take 1 tablet by mouth in the morning, then take 1 tablet by mouth at bedtime doxycycline (DORYX) 100 MG EC tablet Take 1 tablet (100 mg total) by mouth in the morning and 1 tablet (100 mg total) before bedtime. 05/27/2024 Discontinued ibuprofen 800 mg oral tablet (3 sources) Nonsteroidal Anti-inflammatory Drug Start: 10-23-2023 End: 02-12-2024 take 1 tablet by mouth every eight hours as needed for pain ibuprofen 800 MG tablet take 1 tablet by mouth every 8 hours NEEDED FOR PAIN for 14 days 10/23/2023 02/12/2024 Discontinued (Other) isopropyl alcohol 0.7 ml/ml medicated pad (5 sources) Start: 06-02-2024 Alcohol Swabs (Alcohol Prep Pad) 70 % pads Indications: Gestational diabetes mellitus (GDM), antepartum, gestational diabetes method of control unspecified , Elevated glucose tolerance test Apply 1 Pad topically Daily Use four times daily to check FSBS. 150 each 3 06/02/2024 Active minocycline 50 mg oral capsule (3 sources) Tetracycline-class Drug End: 02-12-2024 take 1 capsule by mouth every twelve hours minocycline 50 MG capsule 1 capsule every 12 (twelve) hours 02/12/2024 Discontinued (Other) omega-3 acid ethyl esters (penitentiary) 1000 mg oral capsule (1 source) take 1 capsule by mouth at bedtime omega-3 acid ethyl esters (LOVAZA) 1 gram capsule Take 2 capsules (2 g total) by mouth in the morning and 2 capsules (2 g total) before bedtime. Active PNV 19/iron ps,heme/folic/dha ( MV & MIN ORAL) (2 sources) take 1 tablet by mouth once in the morning PNV 19/iron ps,heme/folic/dha ( MV & MIN ORAL) Take 1 tablet by mouth in the morning. Active MV & Min w/FA-DHA ( Gummies) 0.18-25 MG chewable tablet (3 sources) Start: 11-09-2023 End: 02-12-2024 MV & Min w/FA-DHA ( Gummies) 0.18-25 MG chewable tablet Indications: care, antepartum Chew 1 Dose Daily 30 tablet 11 11/09/2023 02/12/2024 Discontinued (Other) Start: 11-09-2023 MV & Min w/FA-DHA ( Gummies) 0.18-25 MG chewable tablet Indications: care, antepartum Chew 1 Dose Daily 30 tablet 11 11/09/2023 Active Completed/Discontinued Medications Medication Drug Class(es) Dates Sig (Normalized) Sig (Original) magnesium citrate (15 sources) Start: 03-07-2024 End: 04-04-2024 Magnesium Citrate [...] Daily 30 tablet 6 03/07/2024 04/06/2024 Active End: 05-27-2024 magnesium citrate 100 mg tab let Take by mouth. 05/27/2024 Discontinued magnesium oxide 400 mg oral tablet (20 sources) Start: 02-12-2024 End: 05-27-2024 take 1 tablet by mouth once daily magnesium oxide (Mag-Ox) 400 MG tablet Indications: headache in first trimester Take 1 tablet (400 mg) by mouth Daily 30 tablet 2 02/12/2024 04/04/2024 Discontinued (Other) progesterone 200 mg oral capsule (3 sources) Progesterone End: 05-27-2024 take 1 capsule by mouth in the morning progesterone (PROMETRIUM) 200 mg capsule Take 1 capsule (200 mg total) by mouth in the morning. 05/27/2024 Discontinued Progesterone 200 MG suppository (16 sources) Start: 01-15-2024 End: 04-04-2024 Progesterone 200 MG suppository 01/15/2024 04/04/2024 Discontinued (Other) Start: 01-15-2024 Progesterone 2 00 MG suppository 01/15/2024 Active Start: 01-15-2024 End: 02-14-2024 Progesterone 200 MG supposit ory Indications: History of miscarriage Insert 200 mg into the vagina at bedtime Insert suppository vaginally every night at bedtime until 12 weeks gestation 30 suppository 1 01/15/2024 02/14/2024 Active pyridoxine hydrochloride 25 mg oral tablet (13 sources) Start: 03-07-2024 End: 04-06-2024 take 1 tablet by mouth once pyridoxine (Vitamin B-6) 25 MG tablet Indications: Antepartum multigravida of advanced maternal age , Nausea and vomiting in Take 1 tablet (25 mg) by mouth every 12 (twelve) hours if needed (nausea) 60 tablet 3 03/07/2024 04/04/2024 Discontinued (Other) Problems Active Problems Problem Classification Problem Date Documented Date Episodic/Chronic Diabetes mellitus without complication (2 sources) Abnormal glucose tolerance test; Translations: [Other abnormal glucose] 06-02-2024 Episodic Diabetes or abnormal glucose tolerance complicating ; childbirth; or the puerperium (4 sources) Gestational diabetes mellitus; Translations: [Gestational diabetes mellitus in , unspecified control] 06-02-2024 Episodic Immunizations and screening for infectious disease (3 sources) Encounter for screening for human papillomavirus (HPV); Translations: [Exposure to sexually transmissible disorder] Onset: 03-08-2022 05-02-2024 Episodic Menstrual disorders (1 source) Missed period; Translations: [Irregular menstruation, unspecified] 02-12-2024 Chronic Other complications of (1 source) Elderly primigravida; Translations: [Supervision of elderly primigravida, second trimester] 05-27-2024 Episodic Other complications of (2 sources) Nausea and vomiting; Translations: [Vomiting of , unspecified] 03-07-2024 Episodic Other connective tissue disease (8 sources) Tendinitis of hip; Translations: [Other specified enthesopathies of left lower limb, excluding foot] 03-23-2024 Episodic Other connective tissue disease (1 source) Other specified enthesopathies of left lower limb, excluding foot; Translations: [Other specified enthesopathies of left lower limb, excluding foot] Onset: 02-08-2024 Episodic Other female genital disorders (2 sources) Vaginal discharge; Translations: [Other specified noninflammatory disorders of vagina] 05-02-2024 Episodic Other non-traumatic joint disorders (10 sources) Hip pain; Translations: [Pain in left hip] 12-01-2023 Episodic Other non-traumatic joint disorders (2 sources) Pain in left hip; Translations: [Pain in joint, pelvic region and thigh] Onset: 02-08-2024 12-01-2023 Episodic Other non-traumatic joint disorders (1 source) 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; Translations: [Other specified joint disorders, left hip] 04-04-2024 Episodic Other and delivery including normal (12 sources) Second trimester ; Translations: [Encounter for supervision of normal , unspecified, second trimester] 04-04-2024 Episodic Other screening for suspected conditions (not mental disorders or infectious disease) (10 sources) Encounter for screening for malignant neoplasm of cervix; Translations: [Patient encounter status] Onset: 03-03-2022 Episodic Residual codes; unclassified (1 source) Pain, unspecified; Translations: [Pain, unspecified] Onset: 02-08-2024 Episodic Residual codes; unclassified (16 sources) Gestation period, 15 weeks; Translations: [15 weeks gestation of ] Onset: 04-04-2024 04-04-2024 Episodic Residual codes; unclassified (2 sources) Gestation period, 19 weeks; Translations: [19 weeks gestation of ] 05-02-2024 Episodic Residual codes; unclassified (3 sources) Gestation period, 23 weeks; Translations: [23 weeks gestation of ] 05-27-2024 Episodic Residual codes; unclassified (2 sources) Gestation period, 27 weeks; Translations: [27 weeks gestation of ] 06-30-2024 Episodic Unclassified (1 source) New Patient Onset: 02-08-2024 Unclassified (11 sources) OB Reminders Onset: 05-02-2024 05-02-2024 Past or Other Problems Problem Classification Problem Date Documented Da te Episodic/Chronic Other complications of (20 sources) Multigravida of advanced maternal age; Translations: [Supervision of elderly multigravida, unspecified trimester] Onset: 03-07-2024 03-07-2024 Episodic Results Test Name Value Interpretation Reference Range Facility Urinalysis macro (dipstick) panel (U)on 06-30-2024 Bilirubin, UA Negative Negative - 4(70) +++ mg/dL [facility] Blood, UA Negative Negative - 50 Ulises/mcL [facility] Clarity, UA Clear [facility] Color, UA Yellow [facility] Glucose, UA Negative Negative - 1999(110) ++++ mg/dL [facility] Interpretation and review of laboratory results Abnormal [facility] Ketones, UA Negative Negative - 160(16) ++++ mg/dL [facility] Leukocytes, UA Trace Negative - 500+++ Clair/mcL [facility] Nitrite, UA Negative Negative - Positive [facility] pH, UA 8.5 5 - 9 [facility] Protein, UA Positive Negative - 1999(20) ++++ mg/dL [facility] Comment on above: trace Spec Grav, UA 1.015 1 - 1.03 [facility] Urobilinogen, UA 0.2 0.2 - 12 mg/dL [facility] Basophils/100 WBC Manual cnt (Bld)on 06-25-2024 Basophils/100 WBC (Bld) Basophils/100 leukocytes in Blood by Manual count Low 0.2-2.0 [facility] Eosinophils/100 WBC Manual c nt (Bld)on 06-25-2024 Eosinophils/100 WBC (Bld) Eosinophils/100 leukocytes in Blood by Manual count 0.9-7.0 [facility] Erythrocyte distribution wid th Auto (RBC) [Ratio]on 06-25-2024 Erythrocyte distribution width (RBC) [Ratio] Erythrocyte distribution width [Ratio] by Automated count 11.0-15.0 [facility] Estimated glomerular filtrat ion rate (GFR) non- Americanon 06-25-2024 GFR/1.73 sq M.predicted among non-blacks MDRD (S/P/Bld) [Vol rate/Area] Estimated glomerular filtration rate (GFR) non- >=60 mL/min/1.73 m 2 [facility] Hematocrit Auto (Bld) [Volum e fraction]on 06-25-2024 Hematocrit (Bld) [Volume fraction] Hematocrit [Volume Fraction] of Blood by Automated count Low 36.0-48.0 [facility] Hemoglobin [Mass/volume] in Bloodon 06-25-2024 Hemoglobin (Bld) [Mass/Vol] Hemoglobin [Mass/volume] in Blood Low 12.0-16.0 [facility] Laboratory - Chemistry and C hemistry - challengeon 06-25-2024 Calcium [Mass/Vol] 8.2 mg/dL Low 8.5-10.1 [facility] Chloride [Moles/Vol] 99 mmol/L 98-107 [facility] CO2 [Moles/Vol] 21.2 mmol/L 21.0-32.0 [facility] Creatinine [Mass/Vol] 0.89 mg/dL 0.55-1.02 [facility] GFR/1.73 sq M.predicted MDRD (S/P/Bld) [Vol rate/Area] mL/min/{1.73_m2} >=60 mL/min/1.73 m 2 [facility] Glucose [Mass/Vol] 98 mg/dL 74-106 [facility] Potassium [Moles/Vol] 3.7 mmol/L 3.5-5.1 [facility] Sodium [Moles/Vol] 130 mmol/L Low 136-145 [facility] Urea nitrogen [Mass/Vol] 7.0 mg/dL 7.0-18.0 [facility] Urea nitrogen/Creatinine [Mass ratio] 7.9 mg/mg [facility] Bilirubin Ql (U) Negative NEGATIVE [facility] Glucose (U) [Mass/Vol] Negative NEGATIVE [facility] Ketones Ql (U) 15 mg/dL Abnormal NEGATIVE [facility] pH (U) 7.5 [pH] 5.0-9.0 [facility] Specific gravity (U) [Rel density] 1.015 1.005-1.025 [facility] Urobilinogen Qn (U) 1.0 {Ree'U}/dL 0.2-1.0 [facility] Laboratory - Hematology and Cell countson 06-25-2024 Band form neutrophils/100 WBC (Bld) 2.0 % 0-5 [facility] Lymphocytes/100 WBC (Bld) 2.0 % Low 20.5-60.0 [facility] Monocytes/100 WBC (Bld) 5.0 % 1.7-12.0 [facility] - Microbiology an d Antimicrobial susceptibilityon 06-25-2024 SARS-CoV-2 (COVID-19) RNA JUAN ANTONIO+probe Ql (Unsp spec) Negative NEGATIVE [facility] Comment on above: This test has not be en FDA cleared or approved, but has beenauthorized by the FDA under an Emergency Use Authorization(EUA) for use by authorized laboratories certified underIA that meet the requirements to perform moderate or highcomplexity testing. This test has been authorized only forthe detection of proteins from SARS-CoV-2, not for any otherviruses or pathogens. The emergency use of this test isauthorized for the duration of the declaration thatcircumstances exist justifying the authorization ofemergency use of in vitro diagnostic tests for detectionand/or diagnosis of Covid-19 under section 564(b)(1) of theAct, 21 U.S.C. 360bbb-3(b)(1), unless the declaration isterminated or authorization is revoked sooner. Laboratory - Specimen inform ationon 06-25-2024 Appearance (U) CLOUDY Abnormal CLEAR [facility] Color (U) DK YELLOW YELLOW [facility] Laboratory - Urinalysison Leukocyte esterase Test strip Ql (U) Negative NEGATIVE [facility] Nitrite Ql (U) Negative NEGATIVE [facility] Protein Ql (U) TRACE mg/dL NEG/TRACE [facility] Leukocytes [#/volume] correc leroy for nucleated erythrocytes in Blood by Automated counon 06-25-2024 WBC corrected for nucl RBC Auto (Bld) [#/Vol] Leukocytes [#/volume] corrected for nucleated erythrocytes in Blood by Automated coun 4.0-11.0 [facility] MCH Auto (RBC) [Entitic mass ]on 06-25-2024 MCH (RBC) [Entitic mass] MCH [Entitic mass] by Automated count 26.7-34.0 [facility] MCHC Auto (RBC) [Mass/Vol]on 06-25-2024 MCHC (RBC) [Mass/Vol] MCHC [Mass/volume] by Automated count 29.9-35.2 [facility] MCV Auto (RBC) [Entitic vol] on 06-25-2024 MCV (RBC) [Entitic vol] MCV [Entitic volume] by Automated count 81.0-99.0 [facility] No Panel Informationon 06-25 Absolute Basophils (Manual) 0.00 10 3/uL 0.00-0.10 [facility] Band Neutrophils # (Manual) 0.2 10 3/uL 0.0-0.3 [facility] Eosinophils # (Manual) 0.08 10 3/uL 0.00-0.70 [facility] Lymphocytes # (Manual) 0.16 10 3/uL Low 1.20-3.80 [facility] Monocytes # (Manual) 0.41 10 3/uL 0.30-0.80 [facility] Segmented Neutrophils # (Manual) 7.38 10 3/uL High 1.4-6.5 [facility] Urine Occult Blood Negative NEGATIVE [facility] Bedside Influenza Type A Antigen Positive Abnormal [facility] Comment on above: NOTE: Live attenuate d influenza vaccine viruses can cause apositive result for a rapid influenza diagnostic test ifadministered up to 7 days prior to rapid testing. Bedside Influenza Type B Antigen Negative [facility] Comment on above: Negative for Flu B p rotein antigen. Infection due to Flu Bcannot be ruled out. Flu B antigen in the sample may bebelow the detection limit of the test. Platelet mean volume Auto (B ld) [Entitic vol]on 06-25-2024 Platelet mean volume (Bld) [Entitic vol] Platelet mean volume [Entitic volume] in Blood by Automated count Low 9.5-13.5 [facility] Platelets Auto (Bld) [#/Vol] on 06-25-2024 Platelets (Bld) [#/Vol] Platelets [#/volume] in Blood by Automated count 150-450 [facility] RBC Auto (Bld) [#/Vol]on RBC (Bld) [#/Vol] Erythrocytes [#/volu me] in Blood by Automated count Low 4.20-5.40 [facility] Segmented neutrophils/100 WB C Manual cnt (Bld)on 06-25-2024 Segmented neutrophils/100 WBC (Bld) Manual blood segmented neutrophils/100 leukocytes High 43.0-75.0 [facility] Serum or plasma anion gap de terminationon 06-25-2024 Anion gap [Moles/Vol] Serum or plasma anion gap determination [facility] IGP,APTIMA HPV,AGE GDLNon AGE GDLN ACOG TESTING Note . [facility] Comment on above: TESTS RESULT FLAG UN ITS REF RANGE LAB Clinician Provided Cytology Information Source.............Cervix No. of containers..01 ThinPrep Vial Age Algo ACOG Annel... 30-65 FLAG LEGEND: L-Low Normal,H-High Normal,LL-Alert Low,HH-Alert High <-Panic Low,>-Panic High,A-Abnormal,AA-Critical Abnormal Performed at: 01 =[address] [id number] Kathryn Maldonado MD, HPV APTIMA Negative Negative [facility] Comment on above: This nucleic acid am plification test detects fourteen high- risk HPV types (16,18,31,33,35,39,45,51,52,56,58,59,66,68) without differentiation. Performed at: =[address] [id number] [employer] Developer: Kathryn Maldonado MD, Phone: [phone] Performed at: [address] [id number] [employer] Developer: Kathryn Maldonado MD, Phone: [phone] IGP, APTIMA HPV, RFX 16/18,[address] [facility] Comment on above: TESTS RESULT FLAG UN ITS REF RANGE LAB DIAGNOSIS: 02 NEGATIVE FOR INTRAEPITHELIAL LESION OR MALIGNANCY. Specimen adequacy: 02 Satisfactory for evaluation. Endocervical and/or squamous metaplastic cells (endocervical component) are present. Performed by: 02 Thao Shankar Certified Nuclear Medicine Technologist . 02 Note: Note 02 The Pap smear is a screening test designed to aid in the detection of premalignant and malignant conditions of the uterine cervix. It is not a diagnostic procedure and should not be used as the sole means of detecting cervical cancer. Both false-positive and false-negative reports do occur. Test Methodology: Note 02 This liquid based ThinPrep(R) pap test was screened with the use of an image guided system. HPV Genotype Reflex Note 02 Criteria not met, HPV Genotype not performed. FLAG LEGEND: L-Low Normal,H-High Normal,LL-Alert Low,HH-Alert High <-Panic Low,>-Panic High,A-Abnormal,AA-Critical Abnormal Performed at: [address] [phone] Kathryn Maldonado MD, BRUSH-SPATULA CERVIX [facility]INIS[facility] RECURRENT VAGINITIS (HTRX)on 05-05-[address] [facility] ATOPOBIUM VAGINAE Not detected [facility] BVAB 2,3 (BACTERIAL VAGINOSIS ASSOCIATED BACTERIA 2, 3); MOBILUNCUS SPP 0 [facility] BVAB 2,3 (BACTERIAL VAGINOSIS ASSOCIATED BACTERIA 2, 3); MOBILUNCUS SPP Not detected [facility] JED ALBICANS, PARAPSILOSIS, TROPICALIS 0 [facility] JED ALBICANS, PARAPSILOSIS, TROPICALIS Not detected [facility] JED GLABRATA 0 [facility] JED GLABRATA Not detected [facility] JED KRUSEI 0 [facility] JED KRUSEI Not detected [facility] CHLAMYDIA TRACHOMATIS 0 [facility] CHLAMYDIA TRACHOMATIS Not detected [facility] GARDNERELLA VAGINALIS 0 [facility] GARDNERELLA VAGINALIS Not detected [facility] MEGASPHAERA (TYPES 1, 2) 0 [facility] MEGASPHAERA (TYPES 1, 2) Not detected [facility] MYCOPLASMA GENITALIUM 0 [facility] MYCOPLASMA GENITALIUM Not detected [facility] NEISSERIA GONORRHOEAE 0 [facility] NEISSERIA GONORRHOEAE Not detected [facility] TRICHOMONAS VAGINALIS [address] [facility] TRICHOMONAS VAGINALIS Not detected [facility] Urinalysis macro (dipstick) panel (U)on 05-03-2024 Bilirubin, UA Negative Negative - 4(70) +++ mg/dL [facility] Blood, UA Negative Negative - 50 Ulises/mcL [facility] Clarity, UA Clear [facility] Color, UA Yellow [facility] Glucose, UA Negative Negative - 1999(110) ++++ mg/dL [facility] Interpretation and review of laboratory results Normal [facility] Ketones, UA Negative Negative - 160(16) ++++ mg/dL [facility] Leukocytes, UA Negative Negative - 500+++ Clair/mcL [facility] Nitrite, UA Negative Negative - Positive [facility] pH, UA 0.5 5 - 9 [facility] Protein, UA Negative Negative - 1999(20) ++++ mg/dL [facility] Spec Grav, UA 1.025 1 - 1.03 [facility] Urobilinogen, UA 1.0 0.2 - 12 mg/dL [facility] Human papilloma virus 16+18+ 31+33+35+39+45+51+52+56+58+59+66+68 DNA [Presence] in Denis 05-02-2024 HPV 16+18+31+33+35+39+4 5+51+52+56+58+59+66 +68 DNA Probe+sig amp Ql (Cvx) Human papilloma virus 16+18+31+33+35+39+45+51+52+5 6+58+59+66+68 DNA [Presence] in Cer Negative [facility] Comment on above: This nucleic acid am plification test detects fourteen high- risk HPV types (16,18,31,33,35,39,45,51,52,56,58,59,66,68)without differentiation.Performed at: =[address] [id number] Director: Kathryn Maldonado MD, Phone: [phone] at: [address] [id number] Director: Kathryn Maldonado MD, Phone: [phone] No Panel Informationon 05-02 HPV High Risk Other Comment Note . [facility] Comment on above: TESTS RESULT FLAG UN ITS REF RANGE LAB JESE GNOSIS: 02 NEGATIVE FOR INTRAEPITHELIAL LESION OR MALIGNANCY.Specimen adequacy: 02 Satisfactory for evaluation. Endocervical and/or squamous metaplastic cells (endocervical component) are present.Performed by: 02 Thao Shankar, Certified Nuclear Medicine Technologist. 02Note: Note 02 The Pap smear is a screening test designed to aid in the detection of premalignant and malignant conditions of the uterine cervix. It is not a diagnostic procedure and should not be used as the sole means of detecting cervical cancer. Both false-positive and false-negative reports do occur.Test Methodology: Note 02 This liquid based ThinPrep(R) pap test was screened with the use of an image guided system.HPV Genotype Reflex Note 02 Criteria not met, HPV Genotype not performed. ---- FLAG LEGEND: L-Low Normal,H-High Normal,LL-Alert Low,HH-Alert High <-Panic Low,>-Panic High,A-Abnormal,AA-Critical Abnormal --Performed at:02 [facility] [address] [place] [address] Kathryn Maldonado MD, Reference Lab Test Patient Age Note . [facility] Comment on above: TESTS RESULT FLAG UN ITS REF RANGE LAB Clinician Provided Cytology Information Source.............Cervix No. of containers..01 ThinPrep [employer] Richie SANDERS Annel... FLAG LEGEND: L-Low Normal,H-High Normal,LL-Alert Low,HH-Alert High <-Panic Low,>-Panic High,A-Abnormal,AA-Critical Abnormal --Performed at:01 =G [address] [address] Kathryn Maldonado MD, AFP, SERUM, OPEN SPINA BIFID Aon 05-01-2024 AFP MOM 1.[address] [facility] AFP VALUE 61.8 ng/mL . [facility] COMMENT: Comment . [facility] Comment on above: Cydney Rodriguez , Ph.D., [facility] Director References: Available Upon Request. Multiples Of Median Cutoffs For AFP Elevations Chiang 2.5 Black 2.8 IDD 2.0 Twins 4.5 Abbreviation Definitions IDD - Insulin Dep Diabetes OSBR - Open Spina Bifida Risk For further inquiries contact [employer] at [phone]. This test was developed and its performance characteristics determined by [employer]. It has not been cleared or approved by the Food and Drug Administration. Performed at: [facility] [employer] [address] [facility], [facility], [place] [id number] [employer] Developer: Marissa Kovacs [facility], Phone: [phone] GEST. AGE ON COLLECTION DATE 21.[address] [facility] GESTAT. AGE BASED ON LMP . [facility] Comment on above: Recalculations are n ot recommended when gestational dating by LMP and ultrasound are within 10 days. INSULIN DEP DIABETES No . [facility] INTERPRETATION Comment . [facility] Comment on above: Interpretation: Scre en Negative [...] Customer Services to discuss available options. The [employer] recommends amniocentesis be offered to women age 35 and older. MATERNAL [age] ADRIANA 38.[address] [facility] MULTIPLE GESTATION No . [facility] OSBR RISK [address] [facility] RACE . [facility] RESULTS Report . [facility] TEST RESULTS: Negative . [facility] WEIGHT [address] [facility] N N LMP [id number] 3 15 N 1 Y 135 N N N N N White/ [facility] Alpha-fetoprotein (AFP) paige urement (yelfhodd-oa-kpfyjw)on 04-29-2024 AFP [MoM] Alpha-fetoprotein (A FP) measurement (iaehcidr-mj-ccgbln) . [facility] Assess gestational ageon Gestational age Assess gestational age . [facility] Estimation of maternal age-s pecific risk of Down syndrome birthon 04-29-2024 Age [Time] Estimation of matern al age-specific risk of Down syndrome . [facility] Insulin dependent diabetes m ellitus detectionon 04-29-2024 Insulin dependent diabetes mellitus Ql Insulin dependent diabetes mellitus detection . [facility] Interpretation of serum or p lasma second trimester quad maternal screen (narrative reon 04-29-2024 Second trimester quad maternal screen Darshan [Interp] Interpretation of serum or plasma second trimester quad maternal screen (narrative re . [facility] Comment on above: Interpretation: Scre en NegativeThis result is screen negative for OSB. The AFP MoMcalculated is based on the gestational age provided. MS-AFPcan identify up to 80% of open neural tube defects.Closed neural tube defects and some open defects may not bedetected by this test. This test does not screen for fetalDown Syndrome or Trisomy 18. If screening for Down Syndromeor Trisomy 18 is desired, contact [employer] to discuss available options. The AmericanCollege of Obstetricians and Gynecologists recommendsamniocentesis be offered to women age 35 and older. No Panel Informationon 04-29 AFP Triple Screen Comment Comment . [facility] Comment on above: Cydney Rodriguez , Ph.D., DABCCDirectorReferences: Available Upon Request.Multiples Of Median Cutoffs For AFP ElevationsSingleton 2.5 Black 2.8IDD 2.0 Twins 4.5 Abbreviation DefinitionsIDD - Insulin Dep DiabetesOSBR - Open Spina Bifida RiskFor further inquiries contact [employer] at [phone].This test was developed and its performance characteristicsdetermined by [employer]. It has not been cleared or approvedby the Food and Drug Administration.Performed at: [facility] [employer] [id number] [place], [place] [id number] Director: Marissa Kovacs [facility], Phone: [phone] Alpha Fetoprotein Results Received Report . [facility] Gestational Age Calculation Method LMP . [facility] Comment on above: Recalculations are n ot recommended when gestational datingby LMP and ultrasound are within 10 days. Maternal Quad Test Risk 6916 . [facility] Maternal Race . [facility] Multiple No . [facility] Serum or plasma obyil-3-zyes protein measurement (mass/volume)on 04-29-2024 AFP [Mass/Vol] Serum or plasma ahqil-7-gvjdxtejwgu measurement (mass/volume) . [facility] BOX TEST SENT OUTon BOX TEST SENT OUT Y [facility] UNITY BOX [facility] ALL CBC WITH AUTO DIFFon BASOPHILS ABSOLUTE AUTO 0.0 [facility] Basophils/100 WBC (Bld) 0.5 % 0.2 - 2.0 % [facility] Eosinophils/100 WBC (Bld) 0.9 % 0.9 - 7.0 % [facility] Erythrocyte distribution width (RBC) [Ratio] 11.9 % 11.0 - 15.0 % [facility] IMMATURE GRANULOCYTES ABS AUTO 0.02 [facility] Immature granulocytes/100 WBC (Bld) 0.3 % 0.0 - 0.5 % [facility] Interpretation and review of laboratory results Abnormal [facility] LYMPHOCYTES ABSOLUTE AUTO 1.8 [facility] Lymphocytes/100 WBC (Bld) 27.4 % 20.5 - 60.0 % [facility] MCH (RBC) [Entitic mass] 32.2 pg 26.7 - 34.[address] [facility] MCHC (RBC) [Mass/Vol] 34.0 g/dL 29.9 - 35.2 g/dL [facility] MCV (RBC) [Entitic vol] 94.4 fL 81.0 - 99.[address] [facility] MONOCYTES ABSOLUTE AUTO 0.3 [facility] Monocytes/100 WBC (Bld) 5.1 % 1.7 - 12.0 % [facility] NEUTROPHILS ABSOLUTE AUTO 4.4 [facility] Neutrophils/100 WBC (Bld) 65.8 % 43.0 - 75.0 % [facility] Platelet mean volume (Bld) [Entitic vol] 9.4 fL Low 9.5 - 13.[address] [facility] TBH EO # 0.1 [facility] TB PLT 215 [facility] RBC 3.[address] [facility] WBC 6.6 [facility] CBC without diffon 4 Rbc Mcv (Fl) By Automated Count 94.4 [facility] Drug Screen, Urineon 024 Amphetamine/Methamp hetamine Negative [facility] Barbiturate Screen Urine Negative [facility] Benzodiazepine Screen, Urine Negative [facility] Cocaine Metabolite Negative [facility] Mdma Negative [facility] Methadone,Meconium Negative [facility] Opiate Quantitative Urine Negative [facility] Oxycodone Negative [facility] Phencyclidine Negative [facility] Thc Marijuana, Urine Negative [facility] Laboratory - Hematology and Cell countson 02-16-2024 Hematocrit (Bld) [Volume fraction] 37.3 % [facility] Hemoglobin (Bld) [Mass/Vol] 12.7 g/dL [facility] No Panel Informationon 02-15 [facility] Rubella IGG immune statuson 02-16-2024 Rubella immune IgG 3.94 [facility] Syphilis Total(Unknown Syphi lis Status)on 02-16-2024 Syphilis Non-Reactive [facility] HCG ( test) Ql (U)o n 02-12-2024 Interpretation and review of laboratory results Abnormal [facility] Preg Test, Ur Positive [facility] Urinalysis macro (dipstick) panel (U)on 02-12-2024 Bilirubin, UA Negative Negative - 4(70) +++ mg/dL [facility] Blood, UA Negative Negative - 50 Ulises/mcL [facility] Clarity, UA Clear [facility] Color, UA Yellow [facility] Glucose, UA Negative Negative - 1999(110) ++++ mg/dL [facility] Interpretation and review of laboratory results Normal [facility] Ketones, UA Negative Negative - 160(16) ++++ mg/dL [facility] Leukocytes, UA Negative Negative - 500+++ Clair/mcL [facility] Nitrite, UA Negative Negative - Positive [facility] pH, UA 6.5 5 - 9 [facility] Protein, UA Negative Negative - 1999(20) ++++ mg/dL [facility] Spec Grav, UA 1.015 1 - 1.03 [facility] Urobilinogen, UA 1.0 0.2 - 12 mg/dL [facility] No Panel Informationon 11-29 Human Chorionic Gonadotropin, Quant 2 mIU/mL [facility] Comment on above: 5-50 0.2-1 BDJB08-27 0 1-2 IZZOY582-1,000 2-3 MDKTY862-35,000 3-4 WEEKS1,000-50,000 4-5 WEEKS10,000-100,000 5-6 WEEKS15,000-200,000 6-8 WEEKS10,000-100,000 2-3 MONTHS No Panel Informationon 11-22 Human Chorionic Gonadotropin, Quant 3 mIU/mL [facility] Comment on above: 5-50 0.2-1 JYUL49-32 0 1-2 JOGYR749-8,000 2-3 QDCWL141-49,000 3-4 WEEKS1,000-50,000 4-5 WEEKS10,000-100,000 5-6 WEEKS15,000-200,000 6-8 WEEKS10,000-100,000 2-3 MONTHS No Panel Informationon 11-16 Human Chorionic Gonadotropin, Quant 6 mIU/mL [facility] Comment on above: 5-50 0.2-1 FFLG50-65 0 1-2 NYJSU747-7,000 2-3 XOKOV223-23,000 3-4 WEEKS1,000-50,000 4-5 WEEKS10,000-100,000 5-6 WEEKS15,000-200,000 6-8 WEEKS10,000-100,000 2-3 MONTHS No Panel Informationon 11-08 Human Chorionic Gonadotropin, Quant 27 mIU/mL [facility] Comment on above: 5-50 0.2-1 EUAH12-27 0 1-2 XEFRN592-2,000 2-3 YENZH770-42,000 3-4 WEEKS1,000-50,000 4-5 WEEKS10,000-100,000 5-6 WEEKS15,000-200,000 6-8 WEEKS10,000-100,000 2-3 MONTHS Basophils Auto (Bld) [#/Vol] on 10-23-2023 Basophils (Bld) [#/Vol] 0.0 10 3/uL 0.0-0.1 [facility] Basophils/100 WBC Auto (Bld) on 10-23-2023 Basophils/100 WBC (Bld) 0.8 % 0.2-2.0 [facility] Eosinophils/100 WBC Auto (Bl d)on 10-23-2023 Eosinophils/100 WBC (Bld) 1.4 % 0.9-7.0 [facility] Erythrocyte distribution wid th Auto (RBC) [Ratio]on 10-23-2023 Erythrocyte distribution width (RBC) [Ratio] 11.9 % 11.0-15.0 [facility] Hematocrit Auto (Bld) [Volum e fraction]on 10-23-2023 Hematocrit (Bld) [Volume fraction] 36.0 % 36.0-48.0 [facility] Hemoglobin [Mass/volume] in Bloodon 10-23-2023 Hemoglobin (Bld) [Mass/Vol] 11.8 g/dL 12.0-16.0 [facility] Krzysztof 10-23-2023 L Specimen: [id number] R eceived: 10/26/23 Status: MAIA Newell Num: [id number] Spec Type: Surgical Subm Dr: Scooby Vega Tissues: A Products of Conception - Spontaneous or Missed (POC) Procedures: HE/3, Gross/Micro L4 Age/ Patient Sex Location Account Attending Physician Tiffanie Elizabeth 37/F LABELL [id number] Scooby Vega SPEC NUM: [id number] RECD: 10/26/23 STATUS: MAIA NEWELL NUM: [id number] JANIE: 10/23/[address]: Scooby Vega ENTERED: 10/26/23 [facility] DR: Héctor,Lab SPEC TYPE: Surgical DEPT: POOJA [...] cm possible area of villous tissue identified. Telemetry Rn sections to include the possible villous tissue are submitted in A1?A3. Clinical history: Missed CPT Codes 31670 -------- -------- Specimen: [id number] Received: 10/26/23-1306 Status: MAIA Newell Num: [id number] Spec Type: Surgical Subm Dr: Scooby Vega Tissues: A Products of Conception - Spontaneous or Missed (POC) Procedures: HE/3, Gross/Micro L4 -------- Patient: Tiffanie Elizabeth [id number] (Continued) -------- Signed (signature on file) Dante Palacios MD 10/27/23 1511 Normal [facility] - Hematology and Cell countson 10-23-2023 Immature granulocytes/100 WBC (Bld) 0.2 % 0.0-0.5 [facility] Leukocytes [#/volume] correc leroy for nucleated erythrocytes in Blood by Automated counon 10-23-2023 WBC corrected for nucl RBC Auto (Bld) [#/Vol] 5.1 10 3/uL 4.0-11.0 [facility] Lymphocytes Auto (Bld) [#/Vo l]on 10-23-2023 Lymphocytes (Bld) [#/Vol] 1.7 10 3/uL 1.2-3.8 [facility] Lymphocytes/100 WBC Auto (Bl d)on 10-23-2023 Lymphocytes/100 WBC (Bld) 32.8 % 20.5-60.0 [facility] MCH Auto (RBC) [Entitic mass ]on 10-23-2023 MCH (RBC) [Entitic mass] 31.1 pg 26.7-34.0 [facility] MCHC Auto (RBC) [Mass/Vol]on 10-23-2023 MCHC (RBC) [Mass/Vol] 32.8 g/dL 29.9-35.2 [facility] MCV Auto (RBC) [Entitic vol] on 10-23-2023 MCV (RBC) [Entitic vol] 95.0 fL 81.0-99.0 [facility] Monocytes Auto (Bld) [#/Vol] on 10-23-2023 Monocytes (Bld) [#/Vol] 0.3 10 3/uL 0.3-0.8 [facility] Monocytes/100 WBC Auto (Bld) on 10-23-2023 Monocytes/100 WBC (Bld) 5.5 % 1.7-12.0 [facility] Neutrophils Auto (Bld) [#/Vo l]on 10-23-2023 Neutrophils (Bld) [#/Vol] 3.0 10 3/uL 1.4-6.5 [facility] Neutrophils/100 WBC Auto (Bl d)on 10-23-2023 Neutrophils/100 WBC (Bld) 59.3 % 43.0-75.0 [facility] No Panel Informationon 10-22 Eosinophils # (Auto) 0.1 10 3/uL 0.0-0.7 [facility] Immature Granulocyte # (Auto) 0.01 10 3/uL 0.00-0.03 [facility] Platelet mean volume Auto (B ld) [Entitic vol]on 10-23-2023 Platelet mean volume (Bld) [Entitic vol] 9.0 fL 9.5-13.5 [facility] Platelets Auto (Bld) [#/Vol] on 10-23-2023 Platelets (Bld) [#/Vol] 182 10 3/uL 150-450 [facility] RBC Auto (Bld) [#/Vol]on RBC (Bld) [#/Vol] 3.79 10 6/uL 4.20-5.40 [facility] No Panel Informationon 10-11 Human Chorionic Gonadotropin, Quant 81617 mIU/mL [facility] Comment on above: 5-50 0.2-1 CEMD08-13 0 1-2 TCSRS092-4,000 2-3 CVBJX538-46,000 3-4 WEEKS1,000-50,000 4-5 WEEKS10,000-100,000 5-6 WEEKS15,000-200,000 6-8 WEEKS10,000-100,000 2-3 MONTHS No Panel Informationon 10-06 Human Chorionic Gonadotropin, Quant 06875 mIU/mL [facility] Comment on above: 5-50 0.2-1 HKHH32-52 0 1-2 AKARJ887-2,000 2-3 EUNCS169-94,000 3-4 WEEKS1,000-50,000 4-5 WEEKS10,000-100,000 5-6 WEEKS15,000-200,000 6-8 WEEKS10,000-100,000 2-3 MONTHS No Panel Informationon 10-04 Human Chorionic Gonadotropin, Quant 06870 mIU/mL [facility] Comment on above: 5-50 0.2-1 KPSO90-37 0 1-2 PVYOM363-1,000 2-3 OJMAO588-08,000 3-4 WEEKS1,000-50,000 4-5 WEEKS10,000-100,000 5-6 WEEKS15,000-200,000 6-8 WEEKS10,000-100,000 2-3 MONTHS PAP ACOG PANEL 2: 30 to 65on 03-11-2022 . . Normal [facility] Comment on above: Result Comment: Perf ormed at: WB Performed By: #### [id number] #### [facility] [address] [place] [address] Dr. Danni Jacobs Age Gdln ACOG Testing 30-65 Normal [facility] Comment on above: Performed By: #### [id number] #### [facility] [address] [address] [address] Danni Jacobs DIAGNOSIS: Comment Normal [facility] Comment on above: Result Comment: NEGA TIVE FOR INTRAEPITHELIAL LESION OR MALIGNANCY. THIS SPECIMEN WAS RESCREENED PART OF OUR CAT AND DOG BATHER PROGRAM. Performed at: WB Performed By: #### [id number] #### [facility] [address] [place] [address] Dr. Danni Jacobs HPV Aptima Negative Normal Negative [facility] Comment on above: Result Comment: This nucleic acid amplification test detects fourteen high-risk HPV types (16,18,31,33,35,39,45,51,52,56,58,59,66,68) without differentiation. Performed at: =G Performed By: #### [id number] #### [facility] [address] [place] [address] Dr. Danni Jacobs Methodology: Comment Normal [facility] Comment on above: Result Comment: This liquid based ThinPrep(R) pap test was screened with the use of an image guided system. Performed at: WB Performed By: #### [id number] #### [facility] [address] [place] [address] Dr. Danni Jacobs Note: Comment Normal [facility] Comment on above: Result Comment: The Pap smear is a screening test designed to aid in the detection of premalignant and malignant conditions of the uterine cervix. It is not a diagnostic procedure and should not be used as the sole means of detecting cervical cancer. Both false-positive and false-negative reports do occur. . Performed at: WB Performed By: #### [id number] #### [facility] [address] [place] [address] Dr. Danni Jacobs Performed by: Comment Normal [facility] Comment on above: Result Comment: Rocky Hull, Certified Nuclear Medicine Technologist (ASCP) Performed at: WB Performed By: #### [id number] #### [facility] [address] [place] [address] Dr. Danni Jacobs QC reviewed by: Comment Normal [facility] Comment on above: Result Comment: Betzaida Ge, Supervisory Certified Nuclear Medicine Technologist (ASCP) Performed at: WB Performed By: #### [id number] #### [facility] [address] [place] [address] Dr. Danni Jacobs Specimen adequacy: Comment Normal [facility] Comment on above: Result Comment: Sati sfactory for evaluation. Endocervical and/or squamous metaplastic cells (endocervical component) are present. Performed at: WB Performed By: #### [id number] #### [facility] [address] [address] [address] Danni Jacobs GLUCOSE BLOODon 04-22-2021 Glucose [Mass/Vol] 99 mg/dL Normal 74-106 [facility] Comment on above: Performed By: #### G YOSEPH, LIPID #### [facility] [address] [place] [address] Dr. Danni Jacobs LIPID PROFILEon 04-22-2021 CHOL-HDL RATIO NORM SEE BELOW Normal [facility] Comment on above: Result Comment: 3.3 - 4.4 LOW RISK 4.4 - 7.1 AVERAGE RISK 7.1 - 11.0 MODERATE RISK >11.0 HIGH RISK Performed By: #### G YOSEPH, LIPID #### [facility] [address] [place] [address] Dr. Danni Jacobs Cholesterol [Mass/Vol] 157 mg/dL Normal <=200 [facility] Comment on above: Performed By: #### G YOSEPH, LIPID #### [facility] [address] [place] [address] Dr. Danni Jacobs Cholesterol in HDL [Mass/Vol] 74 mg/dL Normal [facility] Comment on above: Performed By: #### G YOSEPH, LIPID #### [facility] [address] [address] [address] Danni Jacobs Cholesterol in LDL [Mass/Vol] 71.2 mg/dL Normal [facility] Comment on above: Performed By: #### G YOSEPH, LIPID #### [facility] [address] [place] [address] Dr. Danni Jacobs Cholesterol.total/C holesterol in HDL [Mass ratio] 2.1 {ratio} Normal [facility] Comment on above: Performed By: #### G YOSEPH, LIPID #### [facility] [address] [address] [address] Danni Jacobs HDL NORMAL > or = 60 mg/dl - LO W CARDIOVASCULAR RISK <40 mg/dl - HIGH CARDIOVASCULAR RISK Normal [facility] Comment on above: Performed By: #### G YOSEPH, LIPID #### [facility] [address] [address] [address] Danni Jacobs LDL CALC NORMAL SEE BELOW Normal [facility] Comment on above: Result Comment: <100 mg/dl OPTIMAL 100 - 129 mg/dl NEAR OR ABOVE OPTIMAL 130 - 159 mg/dl BORDERLINE HIGH 160 - 189 mg/dl HIGH >190 mg/dl VERY HIGH Performed By: #### G YOSEPH, LIPID #### [facility] [address] [address] [address] Danni Jacobs Triglyceride [Mass/Vol] 59 mg/dL Normal <=150 [facility] Comment on above: Performed By: #### G YOSEPH, LIPID #### [facility] [address] [address] [address] Danni Jacobs VLDL CALC 11.8 mg/dL Normal [facility] Comment on above: Performed By: #### G YOSEPH, LIPID #### [facility] [address] [address] [address] Danni Jacobs Vital Signs Date Time Vital Sign Value Performing Clinician Philippe mera 06-30-2024 12:01-0500 Body mass index (BMI) [Ratio] 22.26 kg/m2 [employer] Work Phone: [facility] 06-30-2024 12:01-0500 Body weight 64.47 kg [employer] Work Phone: [facility] 06-30-2024 12:01-0500 Diastolic blood pressure 70 mm[Hg] [employer] Work Phone: [facility] 06-30-2024 12:01-0500 Systolic blood pressure 110 mm[Hg] [employer] Work Phone: [facility] 06-02-2024 10:45-0500 Body mass index (BMI) [Ratio] 21.9 kg/m2 [employer] Work Phone: [facility] 06-02-2024 10:45-0500 Body weight 63.41 kg Scooby Gary DO Work Phone: [facility] 06-02-2024 10:45-0500 Diastolic blood pressure 72 mm[Hg] Scooby Gary DO Work Phone: [facility] 06-02-2024 10:45-0500 Systolic blood pressure 116 mm[Hg] Scooby Gary DO Work Phone: [facility] 05-27-2024 14:14-0500 Body height 170.2 cm Gracie Ramsey MD Work Phone: [facility] 05-27-2024 14:14-0500 Body mass index (BMI) [Ratio] 22.08 kg/m2 Gracie Ramsey MD Work Phone: [facility] 05-27-2024 14:14-0500 Body weight 63.96 kg Gracie Ramsey MD Work Phone: [facility] 05-27-2024 14:14-0500 Diastolic blood pressure 63 mm[Hg] Gracie Ramsey MD Work Phone: [facility] 05-27-2024 14:14-0500 Heart rate 83 /min Gracie Ramsey MD Work Phone: [facility] 05-27-2024 14:14-0500 Systolic blood pressure 110 mm[Hg] Gracie Ramsey MD Work Phone: [facility] 05-02-2024 16:20-0500 Body mass index (BMI) [Ratio] 21.61 kg/m2 Emely COBB Work Phone: [facility] 05-02-2024 16:20-0500 Body weight 62.6 kg Emely COBB Work Phone: [facility] 05-02-2024 16:20-0500 Diastolic blood pressure 68 mm[Hg] Emely COBB Work Phone: [facility] 05-02-2024 16:20-0500 Systolic blood pressure 120 mm[Hg] Emely COBB Work Phone: [facility] 04-29-2024 11:40-0500 Body weight Jen Granados MD Work Phone: [facility] 04-04-2024 14:55-0400 Body mass index (BMI) [Ratio] 21.27 kg/m2 Scooby Gary DO Work Phone: [facility] 04-04-2024 14:55-0400 Body weight 61.6 kg Scooby Gary DO Work Phone: [facility] 04-04-2024 14:55-0400 Diastolic blood pressure 70 mm[Hg] Scooby Gary DO Work Phone: [facility] 04-04-2024 14:55-0400 Systolic blood pressure 116 mm[Hg] Scooby Gary DO Work Phone: [facility] 04-04-2024 08:54-0400 Body height 170.2 cm Ashley Shin MD Work Phone: [facility] 04-04-2024 08:54-0400 Body mass index (BMI) [Ratio] 19.73 kg/m2 Ashley Shin MD Work Phone: [facility] 04-04-2024 08:54-0400 Body weight 57.15 kg Ashley Shin MD Work Phone: [facility] 03-07-2024 10:47-0400 Body mass index (BMI) [Ratio] 20.07 kg/m2 Scooby Gary DO Work Phone: [facility] 03-07-2024 10:47-0400 Body weight 58.12 kg Scooby Gary DO Work Phone: [facility] 03-07-2024 10:47-0400 Diastolic blood pressure 68 mm[Hg] Scooby Gary DO Work Phone: [facility] 03-07-2024 10:47-0400 Systolic blood pressure 114 mm[Hg] Scooby Gary DO Work Phone: [facility] 12-01-2023 16:10-0400 Body height 170.18 cm Scooby Gary Work Phone: [facility] 12-01-2023 16:10-0400 Body mass index (BMI) [Ratio] 19.5 kg/m2 Scooby Gary Work Phone: [facility] 12-01-2023 16:10-0400 Body weight 56.69 kg Socoby Gary Work Phone: [facility] 12-01-2023 16:10-0400 Diastolic blood pressure 78 mm[Hg] Scooby Gary Work Phone: [facility] 12-01-2023 16:10-0400 Systolic blood pressure 112 mm[Hg] Scooby Gary Work Phone: [facility] Encounters Encounter Date Encounter Type Care Provider Facility Start: 06-30-2024 End: 06-30-2024 Bamboo flowsheet Scooby Gary DO Work Phone: [facility] Start: 06-30-2024 End: 06-30-2024 Bamboo flowsheet Scooby Gary DO Work Phone: [facility] Start: 06-30-2024 End: 06-30-2024 flow sheet Scooby Gary DO Work Phone: [facility] Comment on above: 27 weeks gestation o f ; Second trimester ; Gestational diabetes mellitus (GDM), antepartum, gestational diabetes method of control unspecified Start: 06-25-2024 End: 06-25-2024 ambulatory Jen Granados MD Work Phone: [facility] Work Phone: Start: 06-25-2024 End: 06-25-2024 Departed Referred Jen Granados MD Work Phone: [facility] Start: 06-25-2024 Non-patient / Non-visit Jen Granados MD Work Phone: [facility] Work Phone: Start: 06-02-2024 End: 06-02-2024 Bamboo flowsheet Scooby Gary DO Work Phone: [facility] Start: 06-02-2024 End: 06-02-2024 Bamboo flowsheet Scooby Gary DO Work Phone: [facility] Start: 06-02-2024 End: 06-02-2024 ambulatory SCOOBY GARY Not Available Start: 06-02-2024 End: 06-02-2024 flow sheet Scooby Gary DO Work Phone: [facility] Comment on above: Second trimester pre gnancy; 23 weeks gestation of ; with normal glucose tolerance test (GTT); Diabetes mellitus screening; Gestational diabetes mellitus (GDM), antepartum, gestational diabetes method of control unspecified; Elevated glucose tolerance test Start: 05-27-2024 End: 05-27-2024 Office consultation new/estab patient 40 min Gracie Ramsey MD Work Phone: [facility] [place] Comment on above: Advanced maternal ag e, 1st , second trimester (Primary Dx); 23 weeks gestation of Start: 05-02-2024 Non-patient / Non-visit Jen Granados MD Work Phone: [facility] Work Phone: Start: 05-02-2024 End: 05-02-2024 ambulatory EMELY HUNTER Not Available Start: 05-02-2024 End: 05-02-2024 Patient encounter procedure Emely COBB Work Phone: [facility] Work Phone: Start: 05-02-2024 End: 05-02-2024 flow sheet Emely COBB Work Phone: [facility] Comment on above: Well woman exam with routine gynecological exam; Second trimester ; 19 weeks gestation of ; Vaginal discharge; STD exposure; Screening, , for anatomic survey Start: 05-02-2024 End: 05-02-2024 Bamboo flowsheet Emely COBB Work Phone: [facility] Start: 05-02-2024 End: 05-10-2024 Bamboo flowsheet Emely COBB Work Phone: [facility] Start: 05-02-2024 End: 05-10-2024 Clinisync Result Encounter Emely COBB Work Phone: [facility] Unsolicited Start: 05-02-2024 End: 05-05-2024 External Result Encounter Emely COBB Work Phone: [facility] Unsolicited Start: 04-29-2024 End: 05-01-2024 Clinisync Result Encounter Scooby Gary DO Work Phone: [facility] Unsolicited Start: 04-29-2024 End: 05-01-2024 Clinisync Result Encounter Scooby Gary DO Work Phone: [facility] Unsolicited Start: 04-29-2024 Non-patient / Non-visit Jen Granados MD Work Phone: [facility] Work Phone: Start: 04-08-2024 End: 04-08-2024 Chart abstracting Scanning Provider External [facility] Start: 04-04-2024 End: 04-04-2024 flow sheet Scooby Gary DO Work Phone: [facility] Comment on above: Second trimester pre gnancy; Screening, , for anatomic survey; with 15 completed weeks gestation Start: 04-04-2024 End: 04-04-2024 ambulatory SCOOBY GARY Not Available Start: 04-04-2024 End: 04-04-2024 Bamboo flowsheet Scooby Gary DO Work Phone: [facility] Start: 04-04-2024 End: 04-04-2024 Bamboo flowsheet Scooby Gary DO Work Phone: [facility] Start: 04-04-2024 End: 04-04-2024 ambulatory ASHLEY SHIN [facility] Start: 04-04-2024 End: 04-04-2024 Office outpatient visit 15 minutes Ashley Shin MD Work Phone: [facility] Comment on above: 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) Start: 04-01-2024 End: 04-01-2024 Bamboo flowsheet Gretchen Moreno PT [facility] Start: 04-01-2024 End: 04-01-2024 Bamboo flowsheet Gretchen Moreno PT [facility] Start: 04-01-2024 End: 04-01-2024 ambulatory Gretchen Moreno PT [facility] Comment on above: Pain of left hip (Pr imary Dx); Hip flexor tendinitis, left Start: 03-23-2024 End: 03-23-2024 Bamboo flowsheet Gretchen Moreno PT [facility] Start: 03-23-2024 End: 03-23-2024 Bamboo flowsheet Gretchen Moreno PT [facility] Start: 03-23-2024 End: 03-23-2024 ambulatory Gretchen Moreno PT [facility] Comment on above: Pain of left hip (Pr imary Dx); Hip flexor tendinitis, left Start: 03-18-2024 End: 03-18-2024 Bamboo flowsheet Gretchen Moreno PT [facility] Start: 03-18-2024 End: 03-18-2024 Bamboo flowsheet Gretchen Moreno PT [facility] Start: 03-18-2024 End: 03-18-2024 ambulatory GRETCHEN MORENO [facility] Comment on above: Pain of left hip (Pr imary Dx); Hip flexor tendinitis, left Start: 03-11-2024 End: 03-11-2024 Bamboo flowsheet Gretchen Moreno PT [facility] Start: 03-11-2024 End: 03-11-2024 Bamboo flowsheet Grtechen Moreno PT [facility] Start: 03-11-2024 End: 03-14-2024 ambulatory GRETCHEN MORENO [facility] Comment on above: Pain of left hip (Pr imary Dx); Hip flexor tendinitis, left Start: 03-07-2024 End: 03-07-2024 Bamboo flowsheet Scooby Gary DO Work Phone: [facility] Start: 03-07-2024 End: 03-07-2024 Bamboo flowsheet Scooby Gary DO Work Phone: [facility] Start: 03-07-2024 End: 03-07-2024 ambulatory SCOOBY GARY Not Available Start: 03-07-2024 End: 03-07-2024 flow sheet Scooby Gary DO Work Phone: [facility] Comment on above: First trimester preg gali; Antepartum multigravida of advanced maternal age; Nausea and vomiting in Start: 03-03-2024 End: 03-03-2024 Bamboo flowsheet Gretchen Moreno PT [facility] Start: 03-03-2024 End: 03-03-2024 Bamboo flowsheet Gretchen Moreno PT [facility] Start: 03-03-2024 End: 03-03-2024 ambulatory Gretchen Moreno PT [facility] Comment on above: Pain of left hip (Pr imary Dx); Hip flexor tendinitis, left Start: 02-26-2024 End: 02-26-2024 Bamboo flowsheet Gretchen Moreno PT [facility] Start: 02-26-2024 End: 02-26-2024 Bamboo flowsheet Gretchen Moreno PT [facility] Start: 02-26-2024 End: 02-26-2024 Clinisync Result Encounter Scooby Gary DO Work Phone: [facility] Unsolicited Start: 02-26-2024 End: 02-26-2024 ambulatory GRETCHEN MORENO [facility] Comment on above: Pain of left hip (Pr imary Dx); Hip flexor tendinitis, left Start: 02-17-2024 End: 02-17-2024 ambulatory GRETCHEN MORENO [facility] Comment on above: Pain of left hip (Pr imary Dx); Hip flexor tendinitis, left Start: 02-16-2024 End: 02-16-2024 Clinisync Result Encounter Scooby Gary DO Work Phone: [facility] Unsolicited Start: 02-16-2024 End: 02-16-2024 Clinisync Result Encounter Scooby Gary DO Work Phone: [facility] Unsolicited Start: 02-12-2024 End: 02-12-2024 ambulatory EMELY HUNTER Not Available Start: 02-12-2024 End: 02-12-2024 Office outpatient visit 5 minutes [facility] Gary Nurse [facility] Comment on above: GA: 8w0d Start: 02-10-2024 End: 02-11-2024 ambulatory GRETCHEN MORENO [facility] Comment on above: Pain of left hip (Pr imary Dx); Hip flexor tendinitis, left Start: 02-10-2024 End: 02-10-2024 Bamboo flowsheet Gretchen Moreno PT [facility] Start: 02-10-2024 End: 02-10-2024 Bamboo flowsheet Gretchen Moreno PT [facility] Start: 02-08-2024 End: 02-08-2024 ambulatory [facility] Start: 02-08-2024 ambulatory [facility] Start: 12-01-2023 End: 12-01-2023 ambulatory Scooby Gary Work Phone: [facility] Work Phone: Start: 12-01-2023 End: 12-01-2023 Patient encounter procedure Scooby Gary Work Phone: [facility] Work Phone: Start: 11-30-2023 Non-patient / Non-visit Scooby Gary Work Phone: [facility] Work Phone: Start: 11-23-2023 Non-patient / Non-visit Scooby Gary Work Phone: [facility] Work Phone: Start: 11-17-2023 Non-patient / Non-visit Scooby Gary Work Phone: [facility] Work Phone: Start: 11-09-2023 Non-patient / Non-visit Scooby Gary Work Phone: [facility] Work Phone: Start: 11-09-2023 End: 11-09-2023 ambulatory EMELY HUNTER Not Available Start: 10-23-2023 End: 10-23-2023 ambulatory Scooby Gary Facility:[facility] Start: 10-23-2023 End: 10-23-2023 ambulatory Scooby Gary Work Phone: [facility] Work Phone: Start: 10-23-2023 End: 10-23-2023 Departed Referred Scooby Gary Work Phone: [facility] Start: 10-23-2023 Non-patient / Non-visit Scooby Gary Work Phone: [facility] Work Phone: Start: 10-12-2023 Non-patient / Non-visit Scooby Gary Work Phone: [facility] Work Phone: Start: 10-07-2023 Non-patient / Non-visit Scooby Gary Work Phone: [facility] Work Phone: Start: 10-05-2023 Non-patient / Non-visit Scooby Gary Work Phone: [facility] Work Phone: Start: 03-03-2022 End: 03-03-[address] SCOOBY VEGA Facility:[facility] Start: 04-28-2021 Encounter for genera l adult medical examination without abnormal findings DR DALTON LOGAN [facility] Start: 04-22-2021 End: 04-23-[address] DALTON LOGAN Facility:[facility] Start: 04-22-2021 End: 04-23-2021 Encounter for general adult medical examination without abnormal findings DR DALTON LOGAN Facility:[facility] Procedures Date Procedure Procedure Detail Performing Clinician Start: 06-30-2024 Urnls dip stick/tabl et rgnt non-auto w/o micrscp Scooby Vega DO Work Phone: Start: 05-03-2024 Urnls dip stick/tabl et rgnt non-auto w/o micrscp Emely COBB Work Phone: Start: 05-02-2024 RECURRENT VAGINITIS (HTRX) Emely COBB Work Phone: Start: 05-02-2024 IGP,APTIMA HPV,AGE GDLN Emely COBB Work Phone: Start: 05-02-2024 Microscopic observat ion [Identifier] in Cervix by Cyto stain Gracie Ramsey MD Work Phone: Start: 04-29-2024 AFP, SERUM, OPEN SPI NA BIFIDA Scooby Gary DO Work Phone: Start: 04-04-2024 Follow-up visit Follow-up ASHLEY SHIN Start: 02-26-2024 TB BOX TEST SENT OUT C adrielvidal Vega DO Work Phone: Start: 02-16-2024 Blood count complete automated Not In System Ref Prov Start: 02-16-2024 Drug scrn 1+ class nonchromo Not In System Ref Prov Start: 02-16-2024 Syphilis test non-treponemal antibody qual Not In System Ref Prov Start: 02-16-2024 ALL CBC WITH AUTO DIFF Scooby Vega DO Work Phone: Start: 02-12-2024 End: 02-12-2024 Urnls dip stick/tablet rgnt non-auto w/o micrscp Scooby Vega DO Work Phone: Plan of Treatment Date Care Activity Detail Author Start: 05-02-2027 Screening for malign ant neoplasm of cervix Pap Smear [facility] Start: 05-27-2025 Tobacco Screening Tobacco Screening [facility] Start: 04-04-2025 Adult BMI Screening Adult BMI Screen ing [facility] Start: 04-04-2025 Tobacco Screening Tobacco Screening [facility] Start: 02-07-2025 Adult BMI Screening Adult BMI Screen ing [facility] Start: 07-18-2024 End: 07-18-2024 Patient encounter procedure 07/18/2024 2:30 PM EST Routine [facility] [address] [place] [id number] Scooby Vega, DO [address] [place], [place] [address], [place] [id number] [facility] Start: 06-30-2024 End: 06-30-2025 US biophysical profile w non stress test US biophysical profile w non stress test Imaging Routine Gestational diabetes mellitus (GDM), antepartum, gestational diabetes method of control unspecified Expected: 06/30/2024 (Approximate), Expires: 06/30/2025 [facility] Comment on above: Expected: 06/30/2024 (Approximate), Expires: 06/30/2025 Start: 06-30-2024 End: 06-30-2025 US for US OB follow up transabdominal approach Imaging Routine Gestational diabetes mellitus (GDM), antepartum, gestational diabetes method of control unspecified Expected: 06/30/2024, Expires: 06/30/2025 [facility] Work Phone: Comment on above: Expected: 06/30/2024 , Expires: 06/30/2025 Start: 06-30-2024 End: 06-30-2024 Patient encounter procedure 06/30/2024 11:50 AM EST Routine [facility] [address] [facility] [place] [phone] Scooby Vega, DO [address] [place] [address] [facility] Start: 06-25-2024 Urine culture [facility] Start: 06-25-2024 Bacteria identified in Urine by Culture Urine Culture [facility] Start: 06-02-2024 End: 06-02-2025 CBC panel - Blood by Automated count CBC Lab Routine Diabetes mellitus screening Expected: 06/02/2024 (Approximate), Expires: 06/02/2025 [facility] Work Phone: Comment on above: Expected: 06/02/2024 (Approximate), Expires: 06/02/2025 Start: 06-02-2024 End: 06-02-2025 Measurement of glucose 1 hour after glucose challenge for glucose tolerance test Glucose tolerance, 1 hour Lab Routine Diabetes mellitus screening Expected: 06/02/2024 (Approximate), Expires: 06/02/2025 [facility] Comment on above: Expected: 06/02/2024 (Approximate), Expires: 06/02/2025 Start: 06-02-2024 End: 06-02-2024 Patient encounter procedure 06/02/2024 10:10 AM EST Routine [facility] [address] [place] [id number] Scooby Vega, DO [address] [place] [address] [facility] Start: 05-27-2024 End: 05-27-2024 Patient encounter procedure [facility] [place] Start: 05-02-2024 End: 05-02-2024 Patient encounter procedure 05/02/2024 3:30 PM EST Routine [facility] [address] [facility] [place] [phone] Emely Hunter PA [address] [place] [address] [facility] Start: 05-02-2024 End: 10-30-2024 Alpha fetoprotein, maternal Alpha fetoprotein, maternal Lab Routine Second trimester 19 weeks gestation of Expected: 05/02/2024 (Approximate), Expires: 10/30/2024 [facility] Comment on above: Expected: 05/02/2024 (Approximate), Expires: 10/30/2024 Start: 05-02-2024 End: 05-02-2025 US for US OB ANATOMY SINGLE W US OB CERVICAL LENGTH Imaging Routine Screening, , for anatomic survey Expected: 05/02/2024 (Approximate), Expires: 05/02/2025 [facility] Comment on above: Expected: 05/02/2024 (Approximate), Expires: 05/02/2025 Start: 04-26-2024 End: 04-26-2024 Patient encounter procedure 04/26/2024 11:00 AM EST Office Visit [facility] [address] [place] [phone] Scooby Vega DO [address] [facility] [place] [address] [facility] Start: 04-04-2024 End: 04-04-2024 Patient encounter procedure [facility] Comment on above: Arrived Start: 04-04-2024 End: 10-03-2024 Alpha fetoprotein, maternal Alpha fetoprotein, maternal Lab Routine Second trimester Screening, , for anatomic survey Expected: 04/04/2024 (Approximate), Expires: 10/03/2024 [facility] Work Phone: Comment on above: Expected: 04/04/2024 (Approximate), Expires: 10/03/2024 Start: 04-01-2024 End: 04-01-2024 ambulatory 04/01/2024 1:30 PM EDT Treatment [facility] [address] [facility] [address] [place] [address] Gretchen Moreno, PT [facility] Start: 03-23-2024 End: 03-23-2024 ambulatory 03/23/2024 1:00 PM EDT Treatment [facility] [address] [facility] [address] [place] [address] Gretchen Moreno, PT [facility] Start: 03-18-2024 End: 03-18-2024 ambulatory 03/18/2024 1:30 PM EDT Treatment [facility] [address] [facility] [address] [place] [address] Gretchen Moreno, PT [facility] Start: 03-11-2024 End: 03-11-2024 ambulatory 03/11/2024 1:30 PM EDT Treatment [facility] [address] [facility] [address] [place] [address] Gretchen Moreno, PT [facility] Start: 03-07-2024 End: 03-07-2024 Patient encounter procedure 03/07/2024 10:10 AM EDT Routine [facility] [address] [place] [phone] Scooby Vega, DO [address] [facility] [facility] [place] [address] [facility] Start: 03-03-2024 End: 03-03-2024 ambulatory 03/03/2024 10:30 AM EDT Treatment [facility] [address] [facility] [address] [place] [address] Gretchen Moerno, PT [facility] Start: 02-26-2024 End: 02-26-2024 ambulatory 02/26/2024 1:30 PM EDT Treatment [facility] [address] [facility] [address] [place] [address] Gretchen Moreno, PT Arrived [facility] Comment on above: Arrived Start: 02-25-2024 End: 02-25-2024 ambulatory 02/25/2024 10:30 AM EDT Treatment [facility] [address] [facility] [address] [place] [address] Gretchen Moreno, PT [facility] Start: 02-21-2024 Influenza vaccination Influenza Vacc ine [facility] Start: 02-17-2024 End: 02-17-2024 ambulatory 02/17/2024 12:00 PM EDT Treatment [facility] [address] [place] [address] [place] [address] Gretchen Moreno, PT [facility] Start: 02-12-2024 End: 02-11-2025 ABO/Rh ABO/Rh Lab Routine Missed menses Expected: 02/12/2024 (Approximate), Expires: 02/11/2025 [facility] Comment on above: Expected: 02/12/2024 (Approximate), Expires: 02/11/2025 Start: 02-12-2024 End: 02-11-2025 Blood type and Indirect antibody screen panel - Blood Type and screen Lab Routine Missed menses Expected: 02/12/2024 (Approximate), Expires: 02/11/2025 [facility] Work Phone: Comment on above: Expected: 02/12/2024 (Approximate), Expires: 02/11/2025 Start: 02-12-2024 End: 02-11-2025 US Pelvis transvaginal US OB transvaginal Imaging Routine Missed menses Expected: 02/12/2024 (Approximate), Expires: 02/11/2025 [facility] Comment on above: Expected: 02/12/2024 (Approximate), Expires: 02/11/2025 Start: 02-12-2024 End: 02-12-2024 ambulatory 02/12/2024 10:30 AM EDT Initial [facility] [address] [place] [phone] [facility] Start: 02-12-2024 End: 02-12-2024 Professional / ancillary services management 02/12/2024 10:00 AM EDT Ancillary Procedure [facility] [address] [place] [phone] [facility] Start: 02-10-2024 End: 02-10-2024 ambulatory 02/10/2024 5:00 PM EDT Evaluation [facility] [address] [place] [address] [place] [address] Gretchen Moreno, PT Arrived [facility] Comment on above: Arrived Start: 12-10-2008 Screening for malign ant neoplasm of cervix Pap Smear [facility] Start: 12-10-2006 DTaP,Tdap and Td Vaccines (1 - Tdap) DTaP,Tdap and Td Vaccines (1 - Tdap) [facility] Start: 1999 Depression Screening Depression Scre ening [facility] Start: 1999 Tobacco Screening Tobacco Screening [facility] Bacteria identified in Urine by Culture Urine culture Microbiology Routine Missed menses Ordered: 02/12/2024 [facility] Comment on above: Ordered: 02/12/2024 CBC W Auto Different ial panel - Blood CBC and differential Lab Routine Missed menses Ordered: 02/12/2024 [facility] Comment on above: Ordered: 02/12/2024 CHLAMYDIA TRACHOMATI S (GENITO/STI) CHLAMYDIA TRACHOMATIS (GENITO/STI) Lab Routine STD exposure Ordered: 05/02/2024 [facility] Comment on above: Ordered: 05/02/2024 Cytology Cervical or vaginal smear or scraping study Pap Smear Pathology and Cytology Routine Well woman exam with routine gynecological exam Ordered: 05/02/2024 [facility] Comment on above: Ordered: 05/02/2024 Hemoglobin A1c/Hemoglobin.total in Blood Hemoglobin A1c Lab Routine Missed menses Ordered: 02/12/2024 [facility] Comment on above: Ordered: 02/12/2024 Hepatitis B virus surface Ag [Presence] in Serum or Plasma by Immunoassay Hepatitis B surface antigen Lab Routine Missed menses Ordered: 02/12/2024 [facility] Comment on above: Ordered: 02/12/2024 Hepatitis C virus Ab [Presence] in Serum or Plasma by Immunoassay Hepatitis C antibody Lab Routine Missed menses Ordered: 02/12/2024 [facility] Comment on above: Ordered: 02/12/2024 HIV-1/HIV-2 antigen/antibody combination immunoassay HIV-1 and HIV-2 antibodies Lab Routine Missed menses Ordered: 02/12/2024 [facility] Comment on above: Ordered: 02/12/2024 Human papilloma viru s DNA [Presence] in Unspecified specimen by Probe with amplification HPV DNA probe, amplified Microbiology Routine Well woman exam with routine gynecological exam Ordered: 05/02/2024 [facility] Comment on above: Ordered: 05/02/2024 Neisseria gonorrhoea e DNA [Presence] in Unspecified specimen by JUAN ANTONIO with probe detection Neisseria gonorrhea DNA probe, direct Lab Routine STD exposure Ordered: 05/02/2024 [facility] Comment on above: Ordered: 05/02/2024 Reagin Ab [Presence] in Serum by RPR RPR Lab Routine Missed menses Ordered: 02/12/2024 [facility] Comment on above: Ordered: 02/12/2024 Rubella antibody, IgG Rubella an tibody, IgG Lab Routine Missed menses Ordered: 02/12/2024 [facility] Comment on above: Ordered: 02/12/2024 SURESWAB(R) ADVANCED VAGINITIS PLUS, TMA SURESWAB(R) ADVANCED VAGINITIS PLUS, TMA Pathology and Cytology Routine Vaginal discharge Ordered: 05/02/2024 [facility] Work Phone: Comment on above: Ordered: 05/02/2024 XR Hip - left 2 Views [facility] Payers Date Payer Category Payer Commercial Managed C are - POS [employer] [id number] 2022 Private Health Insurance [id number] 2022 Unknown NILAM Decker [place] [id number] 2022-Present [phone] [address] [place] [phone] 1987 Unknown [id number] 2.16.840.1.067146.3.579. 2.593 1987 Unknown [id number] 2.16.840.1.425197.3.579. 2.593 1987 Unknown [id number] 2.16.840.1.713941.3.579. 2.128 1987 Unknown [id number] 2.16.840.1.966704.3.579. 2.1285 1987 Unknown [id number] 2.16840.1.542222.3.579. 2.1285 1987 Unknown [id number] 2.840.1.112445.3.579. 2.1258 1987 Unknown [id number] 2.16840.1.411020.3.579. 2.1258 1987 Unknown [id number] 2.16840.1.936270.3.579. 2.1258 1987 Unknown [id number] 2.16840.1.752047.3.579. 2.9 1987 Unknown [id number] 2.16840.1.167831.3.579. 2.1258 1987 Unknown [id number] 2.16.840.1.557995.3.579. 2.1258 1987 Unknown [id number] 2.16.840.1.859402.3.579. 2.1258 1987 Unknown [id number] 2.16.840.1.341637.3.579. 2.1258 1987 Unknown [id number] 2.16.840.1.959391.3.579. 2.1258 1987 Unknown [id number] 2.16840.1.032306.3.579. 2.1259 1987 Unknown [id number] 2.16.840.1.481156.3.579. 2.9 1987 Unknown [id number] 2.16.840.1.764390.3.579. 2.1259 1987 Unknown [id number] 2.16.840.1.157786.3.579. 2.9 1987 Unknown [id number] 2.16.840.1.334696.3.579. 2.1259 1959 Unknown [id number] Social History Date Type Detail Facility Tobacco smoking stat [facility] Unknown if ever smoked [facility] Work Phone: Start: 1985 Sex Assigned At Female [facility] Start: 02-26-2023 End: 04-04-2024 Tobacco smoking status NHIS Never smoked tobacco [facility] Start: 11-09-2023 End: 05-27-2024 History of Social function [facility] Start: 11-09-2023 End: 05-27-2024 Tobacco use panel [facility] Start: 01-01-2024 [facility] Start: 1985 Sex assigned at Not on file [facility] Start: 04-04-2024 Tobacco use and exposure Smokeless tobacco non-user [facility] Start: 04-04-2024 End: 05-27-2024 Alcoholic beverage intake Ex-drinker (finding) [facility] Childcare Unknown [facility] Start: 12-30-2023 Gender identity Identifies as female gender (finding) [facility] Start: 12-30-2023 Sexual orientation Heterosexual (finding) [facility] Start: 01-25-2015 End: 06-27-2024 Sex Female (finding) [facility] Tobacco smoking stat [facility] Unknown if ever smoked [facility] Work Phone: Medical Equipment Procedure Code Equipment Code Equipment Origin al Text Equipment Identifier Dates 1 strip by In Vi tro route Daily Use in the morning prior to breakfast, 1 hour after each meal for a total of 4times daily. [id number] Start: 06-02-2024 End: 07-02-2024 1 each by In Vit ro route Daily Use to check FSBS four times daily [id number] Start: 06-02-2024 End: 07-02-2024 Goals Date Patient Goal Desired Activity /State Personal health goal Clinical Notes 02-10-2024 to 06-30-2024 JORDYN Fonseca - 06/30/2024 11:50 AM Jose Francisco Villanueva LPN - 06/02/2024 10:10 AM Belén Ramsey MD - 05/27/2024 2:15 PM Selena Johns RN - 05/27/2024 2:15 PM EST Note Date & Type Note Facility 06-30-2024 History of Present illness Narrative Reason for Appointment: Patient ID: Tiffanie Elizabeth is a 38 y.o. female who presents for Routine Visit Patient presents today for Return OB appointment. MEDICATIONS Current Outpatient Medications Medication Instructions Alcohol Swabs (Alcohol Prep Pad) 70 % pads 1 Pad, Topical, Daily, Use four times daily to check FSBS. BABY ASPIRIN PO 81 mg, Daily Blood Glucose Monitoring Suppl (D-Euroffice Glucometer) w/Device kit 1 kit, Does not apply, Daily, Use four times daily to check FSBS. In the morning prior to breakfast & 1 hour after each meal for a total of 4times daily. Glucose Blood (Blood Glucose Test) strip 1 strip, In Vitro, Daily, Use in the morning prior to breakfast, 1 hour after each meal for a total of 4times daily. Lancets Ultra Thin misc 1 each, In Vitro, Daily, Use to check FSBS four times daily ALLERGIES Allergies Allergen Reactions Amoxicillin GI intolerance Other Reaction(s): GI Disturbance, Hives PROBLEMS Active Ambulatory Problems Diagnosis Date Noted Antepartum multigravida of advanced maternal age 0903/07/2024 with 15 completed weeks gestation 04/04/2024 Resolved Ambulatory Problems Diagnosis Date Noted No Resolved Ambulatory Problems No Additional Past Medical History HISTORY PAST MEDICAL HISTORY SOCIAL HISTORY History reviewed. No pertinent past medical history. Social History Tobacco Use Smoking status: Never Smokeless tobacco: Not on file Substance Use Topics Alcohol use: Not on file Drug use: Not on file FAMILY HISTORY No family history on file. SURGICAL HISTORY Past Surgical History: Procedure Laterality Date DILATION AND CURETTAGE OF UTERUS 10/26/2023 REVIEW OF SYSTEMS Review of Systems: Review of Systems Constitutional: Negative. HENT: Negative. Eyes: Negative. Respiratory: Negative. Cardiovascular: Negative. Gastrointestinal: Negative. Genitourinary: Negative. Musculoskeletal: Negative. Skin: Negative. Neurological: Negative. All other systems reviewed and are negative. Hematological: Negative. Endocrine: Negative. Allergic/Immunologic: Negative. OBJECTIVE Objective: Physical Exam Constitutional: Appearance: Normal appearance. She is normal weight. HENT: Head: Normocephalic. Cardiovascular: Rate and Rhythm: Normal rate. Pulses: Normal pulses. Pulmonary: Effort: Pulmonary effort is normal. Breath sounds: Normal breath sounds. Abdominal: Palpations: Abdomen is soft. Musculoskeletal: General: Normal range of motion. Neurological: General: No focal deficit present. Mental Status: She is alert and oriented to person, place, and time. Psychiatric: Mood and Affect: Mood normal. Behavior: Behavior normal. Thought Content: Thought content normal. Judgment: Judgment normal. Vitals and nursing note reviewed. Vitals: Estimated body mass index is 22.26 kg/m as calculated from the following: Height as of 04/21/23: 5' 7 . Weight as of this encounter: 142 lb 1.9 oz. BP: 110/70 Patient's last menstrual period was 12/18/2023. ASSESSMENT & PLAN ICD-10-CM 1. 27 weeks gestation of Z3A.27 POCT urinalysis dipstick manually resulted 2. Second trimester Z34.92 POCT urinalysis dipstick manually resulted 3. Gestational diabetes mellitus (GDM), antepartum, gestational diabetes method of control unspecified O24.419 US OB follow up transabdominal approach US biophysical profile w non stress test Return OB: Patient presents today for a routine obstetrics appointment. Patient is currently 27w6d . Patient states she is doing well but has complaints of being tired due to current . Patient has verbalizes frequent movement. labor precautions was discussed/given and patient was instructed to perform kick counts three times a day. Patient diagnosed with influenza a, completed tamiflu, still has cough. Denies need for zpak but will call in if she decides she would like Orders Placed This Encounter Procedures US OB follow up transabdominal approach US biophysical profile w non stress test POCT urinalysis dipstick manually resulted Follow Up: Patient is to return to office in 2 week for routine OB appointment. Documented by JORDYN Fonseca on behalf of: Scooby Vega DO documented in this encounter [facility] 06-02-2024 History of Present illness Narrative Reason for [...] Antepartum multigravida of advanced maternal age 0903/07/2024 with 15 completed weeks gestation 04/04/2024 Resolved Ambulatory Problems Diagnosis Date Noted No Resolved Ambulatory Problems No Additional Past Medical History HISTORY PAST MEDICAL HISTORY SOCIAL HISTORY History reviewed. No pertinent past medical history. Social History Tobacco Use Smoking status: Never Smokeless tobacco: Not on file Substance Use Topics Alcohol use: Not on file Drug use: Not on file FAMILY HISTORY No family history on file. SURGICAL HISTORY Past Surgical History: Procedure Laterality Date DILATION AND CURETTAGE OF UTERUS 10/26/2023 REVIEW OF SYSTEMS Review of Systems: Review of Systems Constitutional: Negative. HENT: Negative. Eyes: Negative. Respiratory: Negative. Cardiovascular: Negative. Gastrointestinal: Negative. Genitourinary: Negative. Musculoskeletal: Negative. Skin: Negative. Neurological: Negative. All other systems reviewed and are negative. Hematological: Negative. Endocrine: Negative. Allergic/Immunologic: Negative. OBJECTIVE Objective: Physical Exam Constitutional: Appearance: Normal [...] nursing note reviewed. Exam conducted with a classroom technology technician present. Vitals: Estimated body mass index is 21.9 kg/m as calculated from the following: Height as of 04/21/23: 5' 7 . Weight as of this encounter: 139 lb 12.8 oz. BP: 116/72 Patient's last menstrual period was 12/18/2023. ASSESSMENT & PLAN ICD-10-CM 1. Second trimester Z34.92 POCT urinalysis dipstick manually resulted 2. 23 weeks gestation of Z3A.23 POCT urinalysis dipstick manually resulted 3. with normal glucose tolerance test (GTT) Z34.90 4. Diabetes mellitus screening Z13.1 CBC Glucose tolerance, 1 hour CBC Glucose tolerance, 1 hour Patient presents today for a routine obstetrics appointment. Patient is currently 23w6d with a Estimated Date of Delivery: 09/23/24. Pt is refusing rhogam even after an in depth discussion with pt and . Pt is testing blood sugars four times a day. Pt to still have cbc obtained. Discussed parameters with glucose testing. Pt voiced understanding. Pt to test for 2 weeks. Documented by Belle Villanueva LPN on behalf of: Scooby Vega DO documented in this encounter [facility] 05-27-2024 History of Present illness Narrative REASON FOR CONSULTATION: A HISTORY OF PRESENT ILLNESS: Tiffanie Elizabeth is a pleasant 38 y.o. at 23w0d due on Estimated Date of Delivery: 09/23/24. complicated by: Advanced maternal age, 38 years old, s/p LR cfDNA Today, the patient is doing well. She denies headaches, vision changes, nausea, vomiting, right upper quadrant or epigastric pain, SOB or chest pain. She denies contractions, vaginal bleeding, leaking of fluid. She reports good movement. Aneuploidy screening: Low risk free DNA Carrier screening: Baby boy: Friedman I have reviewed the pertinent available patient records including but not limited to notes, labs and images. PAST OBSTETRICAL HISTORY: OB History Para Term AB Living 2 1 SAB IAB Ectopic Multiple Live Births # Outcome Date GA Lbr Raul/2nd Weight Sex Type Anes PTL Lv 2 Current 1 AB MEDICAL HISTORY: History reviewed. No pertinent past medical history. SURGICAL HISTORY: Past Surgical History: Procedure Laterality Date DILATION AND CURETTAGE OF UTERUS 10/26/2023 KNEE ARTHROPLASTY WISDOM TOOTH EXTRACTION FAMILY/GENETIC HISTORY: History reviewed. No pertinent family history. SOCIAL HISTORY: Social History Tobacco Use Smoking status: Never Smokeless tobacco: Never Vaping Use Vaping status: Never Used Substance Use Topics Alcohol use: Not Currently Drug use: Never ALLERGIES: Allergies Allergen Reactions Amoxicillin GI Disturbance CURRENT MEDICATIONS: Current Outpatient Medications: aspirin 81 mg, Take 1 tablet (81 mg total) by mouth in the morning., Disp: , Rfl: PNV 19/iron ps,heme/folic/dha ( MV & MIN ORAL), Take 1 tablet by mouth in the morning., Disp: , Rfl: omega-3 acid ethyl esters (LOVAZA) 1 gram capsule, Take 2 capsules (2 g total) by mouth in the morning and 2 capsules (2 g total) before bedtime., Disp: , Rfl: RECENT HOSPITALIZATION: none HABITS: Patient activity no restrictions, diet no restrictions REVIEW OF SYSTEMS: Head and Neck: Negative for any dizziness and headaches. Cardiovascular and Respiratory System: Denies any chest pain, shortness of breath, and coughing. Abdominal and System: Denies any abdominal pain, nausea, vomiting, vaginal bleeding, and vaginal discharge REVIEW OF TESTS AND ULTRASOUND REPORTS: Referral records and [facility] chart were reviewed Pertinent Ultrasound findings are see formal ultrasound report. PHYSICAL EXAMINATION: BP 110/63 Pulse 83 Ht 170.2 cm (5' 7 ) Wt 64 kg (141 lb) LMP 12/18/2023 BMI 22.08 kg/m Well-appearing in no distress. Respirations not labored, speaking comfortably in full sentences Gravid abdomen OVERALL ASSESSMENT -Tiffanie Silva Elizabeth is a pleasant 38 y.o. at 23w0d -advanced maternal age COUNSELING Advanced maternal age I discussed with the patient the risks of advanced maternal age as it relates to chromosomal abnormalities. She had sonographic evaluation today and her ultrasound showed no anomalies or soft markers for aneuploidy. I explained that ultrasound is not diagnostic of chromosomal abnormalities and that 50% of babies with Trisomy 21 will have normal ultrasounds. In addition to an increased risk for chromosomal abnormalities, women with advanced maternal age are also at higher risk for spontaneous abortions, gestational diabetes, hypertensive disorders in including preeclampsia, indicated delivery, as well as growth abnormalities, and stillbirth. Options for further testing were discussed in detail during today's visit. Patient was had low risk cell free DNA screening. Although cell-free DNA is not a diagnostic test , it has high sensitivity and specificity for the most common aneuploidies. A negative cell free DNA does not ensure an unaffected . Limitations of cell free DNA screening were reviewed with the patient. Cell free DNA does not replace the accuracy and diagnostic precision of amniocentesis which remains an option for all women. We discussed the option of amniocentesis for definitive genetic testing. The patient declined amniocentesis. I recommend baby aspirin once daily to reduce the risk of preeclampsia. There have been several dosing strategies for low dose aspirin for preeclampsia prevention, 81 mg (endorsed by ACOG) and 150 mg daily. Our practice continues to endorse the 81 mg dosing regimen for preeclampsia prevention as is recommended by the [place] [employer] Committee Opinion No. 743. Higher doses (150mg) have been studied, but utilized a screening strategy that is not widely performed in the [place] (serum analytes and uterine artery Doppler), limiting the generalizability of the findings. SUMMARY/RECOMMENDATION: Continue baby aspirin for attempted preeclampsia prevention Preeclampsia precautions reviewed Complete level 2 anatomy ultrasound without sonographic evidence of structural abnormality Recommend growth ultrasound in the 3rd trimester with primary OB Consider testing at 37 weeks gestation or sooner if clinically indicated Anticipate term delivery, >=39 weeks gestation, at local hospital Vaginal delivery is preferred mode, reserve for usual obstetrical indications DISPOSITION: At this point the patient is in complete care of her drum builder. Thank you for allowing me to participate in the care of Tiffanie Elizabeth. If there any questions please do not hesitate to contact us. Gracie Ramsey MD [facility] [address] [place] [id number] [facility], the CDC, and other organizations representing maternal and public health professionals recommend that , , and lactating people and those considering receive the COVID-19 vaccination. Vaccination is the best method to reduce maternal and complications of SARS-CoV-2 infection. This document was created with [employer] technology. Though I make every effort to review the dictation as it is transcribed, on occasion the spoken word can be misinterpreted by the technology leading to inappropriate words, phrases, or sentences. This note is addressed to the requesting provider as a consultation for clinical guidance. Specific medical abbreviations are occasionally used and those are generally approved by the [place]?Board of?Obstetrics and?Gynecology?as well as?Cali aparicio abbreviations. The above plan of care was based solely on the diagnoses for which a consultation was requested. ?More frequent testing may be indicated based on her other medical/obstetrical conditions. The management of other or medical conditions is beyond the scope of requested consultation and will continue to be followed by the primary drum builder or primary care provider. Note to patient: The Century Cures Act makes medical notes like these available to patients in the interest of transparency. However, be advised this is a medical document. It is intended as peer to peer communication. It is written in medical language and may contain abbreviations or verbiage that are unfamiliar. It may appear blunt or direct. Medical documents are intended to carry relevant information, facts as evident, and the clinical opinion of the practitioner. Headache/epigastric pain/blurry vision/swelling? no Cramping/contractions? no Abnormal vaginal discharge? no Spotting/vaginal bleeding? no Loss or gush of fluid like your water may have broken? no Do you have cats at home? no Do you change the litter box (reason: risk of toxoplasmosis)? Genetic testing done this here or other office? yes Have you been seen here at [facility] in a previous ? N/a Recent ER visits or hospitalizations? no Bring blood sugar log or meter with you today? (Please bring them with you for every visit at [facility]) n/a Flu vaccine (Apr-August)? no Any concerns that you would like me to mention to the provider today? no [facility] History of Present illness Narrative Reason for Appointment: Patient ID: Tiffanie Elizabeth is a 38 y.o. female who presents for Routine Visit, Well Women Visit, and STI Screening Patient presents today for Annual Exam. MEDICATIONS Current Outpatient Medications Medication Instructions BABY ASPIRIN PO 81 mg, Oral, Daily ALLERGIES Allergies Allergen Reactions Amoxicillin GI intolerance Other Reaction(s): GI Disturbance, Hives PROBLEMS Active Ambulatory Problems Diagnosis Date Noted Antepartum multigravida of advanced maternal age 0903/07/2024 with 15 completed weeks gestation 04/04/2024 Resolved Ambulatory Problems Diagnosis Date Noted No Resolved Ambulatory Problems No Additional Past Medical History HISTORY PAST MEDICAL HISTORY SOCIAL HISTORY History reviewed. No pertinent past medical history. Social History Tobacco Use Smoking status: Never [...] Constitutional: Appearance: Normal appearance. She is well-developed. Genitourinary: Vulva normal. Cardiovascular: Rate and Rhythm: Normal rate and [...] nursing note reviewed. Exam conducted with a classroom technology technician present. Vitals: Estimated body mass index is 21.61 kg/m as calculated from the following: Height as of 04/21/23: 5' 7 . Weight as of this encounter: 138 lb. BP: 120/68 Patient's last menstrual period was 12/18/2023. ASSESSMENT & PLAN ICD-10-CM 1. Well woman exam with routine gynecological exam Z01.419 Pap Smear HPV DNA probe, amplified 2. Second trimester Z34.92 POCT urinalysis dipstick manually resulted Alpha fetoprotein, maternal Alpha fetoprotein, maternal 3. 19 weeks gestation of Z3A.19 POCT urinalysis dipstick manually resulted Alpha fetoprotein, maternal Alpha fetoprotein, maternal 4. Vaginal discharge N89.8 SURESWAB(R) ADVANCED VAGINITIS PLUS, TMA 5. STD exposure Z20.2 CHLAMYDIA TRACHOMATIS (GENITO/STI) Neisseria gonorrhea DNA probe, direct 6. Screening, , for anatomic survey Z36.89 US OB ANATOMY SINGLE W US OB CERVICAL LENGTH Return OB/Annual Exam: Patient presents today for an annual exam/routine obstetrics appointment. Patient is currently 19w3d . Patient is doing well and states she has no complaints. Pap/cultures was obtained without difficulty and patient was given [facility] order to have obtained. Orders Placed This Encounter Procedures HPV DNA probe, amplified US OB ANATOMY SINGLE W US OB CERVICAL LENGTH CHLAMYDIA TRACHOMATIS (GENITO/STI) Neisseria gonorrhea DNA probe, direct Alpha fetoprotein, maternal POCT urinalysis dipstick manually resulted After speaking with Dr. Vega order given to patients spouse Dave to have Type & Screen obtained as patient is Rh negative as well and if Rhogam is not needed they would like to defer.--ss Follow Up: Patient is to return to our office in 4 weeks for routine OB appointment Documented by Estee Cobb LPN on behalf of: JORDYN Fonseca documented in this encounter [facility] 04-04-2024 History of Present illness Narrative Reason [...] nursing note reviewed. Exam conducted with a classroom technology technician present. Vitals: Estimated body mass index is [...] Aspirin. Discussed again in regards to seeing [facility] & referral will be completed. Patient to have NST/BPP starting at 32 weeks gestation. Patient will have Anatomy Scan done at [facility]. Patient is Rh Negative and will [...] by Kalie Loera LPN on behalf of: Scooby Vega DO documented in this encounter [facility] 04-04-2024 History of Present illness Narrative [...] with this plan. documented in this encounter [facility] 04-01-2024 History of Present illness Narrative Physical [...] and it pops a lot randomly. Precautions: Clemons Subjective: Pt states overall, ROM has improved. [...] to be instructed in home exercise program. 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 Date: documented in this encounter [facility] 03-23-2024 History of Present illness Narrative [...] and it pops a lot randomly. Precautions: Clemons Subjective: Pt states range of motion of [...] to be instructed in home exercise program. 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 Date: documented in this encounter [facility] 03-18-2024 History of Present illness Narrative Physical Therapy Evaluation Visit Patient Name: Tiffanie Elizabeth Today's Date: 03/18/2024 Encounter Diagnoses Name Primary? Pain of left hip Yes Hip flexor tendinitis, left Visit number: 6 Timed Code Treatment Minutes: 40 minutes Total Treatment Time: 50 minutes Time In: 1334 Time Out: 1427 History: Pt states back in October she [...] and it pops a lot randomly. Precautions: Clemons Subjective: Pt states she feels like her ROM is getting better; however, has the same sensation in left hip at end range. Will RTD 04/04/24 Pain: 0/10 at rest [...] on Eval Findings and POC Manual Therapy: (40 minutes) Passive ROM, Joint mobilization, Soft Tissue Mobilization, Myofascial Release, Muscle Energy Technique, Neural Mobilization, Myofascial Cupping, Dry Needling, IASTM, and Scar mobilization as needed. Long axis distraction to left LE in supine. MET to increase left hip IR ROM. Belted distraction with passive flexion and IR. Gentle mobs/oscillations to decrease pain. Therapeutic Exercise: () Strength, Endurance, Flexibility, ROM, [...] prior to treatment Assessment: Pt has completed 6 PT sessions for left hip pain. Pt continues to demo 8.5 inches of height from bed to left knee with CHARLES at rest, 8 inches with overpressure. Continues to report increase sx's with FADIR, and end range left hip extension and ER. Will continue. Outcome Measure:Lower Extremity Functional Scale (LEFS): 59/80 Rehab Diagnosis: left hip pain and weakness Short Term Goal: To be met in 2 weeks Goal 1: Pt to be instructed in home exercise program. Half-Way Goals: To be met in 10 weeks [...] sign below. Date: documented in this encounter [facility] 03-11-2024 History of Present illness Narrative Physical Therapy Evaluation Visit Patient Name: Tiffanie Elizabeth Today's Date: 03/11/2024 Encounter Diagnoses Name Primary? Pain of left hip Yes Hip flexor tendinitis, left Visit number: 5 Timed Code Treatment Minutes: 43 minutes Total Treatment Time: 53 minutes Time In: 1327 Time Out: 1429 History: Pt states back in October she [...] and it pops a lot randomly. Precautions: Clemons Subjective: Pt states overall she believes hip is gradually improving. States she is still is modifying her workouts to avoid left hip pain. Will RTD 04/04/24 Pain: 0/10 at rest [...] on Eval Findings and POC Manual Therapy: (43 minutes) Passive ROM, Joint mobilization, Soft Tissue Mobilization, Myofascial Release, Muscle Energy Technique, Neural Mobilization, Myofascial Cupping, Dry Needling, IASTM, and Scar mobilization as needed. IDN to right lateral hip joint in left SL (5 mins no charge). Manual long axis distraction and manipulation. Lateral hip distraction alone, with repeated flexion, and repeated hip IR ROM. Reviewed HEP with good pt understanding. Therapeutic Exercise: () Strength, Endurance, Flexibility, ROM, [...] prior to treatment Assessment: Pt has completed 5 PT sessions for left hip pain. Pt with mild tenderness left lateral hip. Will continue to progress as pt tolerates. Outcome Measure:Lower Extremity Functional Scale (LEFS): 59/80 Rehab Diagnosis: left hip pain and weakness Short Term Goal: To be met in 2 weeks Goal 1: Pt to be instructed in home exercise program. Half-Way Goals: To be met in 10 weeks [...] sign below. Date: documented in this encounter [facility] 03-07-2024 History of Present illness Narrative Reason for Appointment: Patient ID: Tiffanie Elizabeth is a 38 y.o. female who presents for Routine Visit Patient presents today for Return OB appointment. MEDICATIONS Current Outpatient Medications Medication Instructions magnesium oxide (MAG-OX) 400 mg, Oral, Daily Progesterone 200 MG suppository ALLERGIES Allergies Allergen Reactions Amoxicillin GI intolerance Other Reaction(s): GI Disturbance, Hives PROBLEMS Active Ambulatory Problems Diagnosis Date Noted No Active Ambulatory Problems Resolved Ambulatory Problems Diagnosis Date Noted No Resolved Ambulatory Problems No Additional Past Medical History HISTORY PAST MEDICAL HISTORY SOCIAL HISTORY History reviewed. No pertinent past medical history. Social History Tobacco Use Smoking status: Never [...] nursing note reviewed. Exam conducted with a classroom technology technician present. Vitals: Estimated body mass index is 20.07 kg/m as calculated from the following: Height as of 04/21/23: 5' 7 . Weight as of this encounter: 128 lb 1.9 oz. BP: 114/68 Patient's last menstrual period was 12/18/2023. ASSESSMENT & PLAN ICD-10-CM 1. First trimester Z34.91 New OB: Patient presents today for 1st time obstetrics appointment with provider. Patient is currently 11w3d . Patients history has been reviewed in great detail including any potential risks. Patient stated she currently has complaints that magnesium oxide is not working. Advised patient and spouse she is to start taking a daily Baby Aspirin 81mg for placental health. Recommended [facility] for Level II Ultrasound due to AMA. Patient will require Rhogam injection at 28 weeks gestation. Patient and spouse will think about referral and if desired will contact office for referral to be completed. Discussed labs and Magnesium Oxide verses Magnesium Citrate. Expectations throughout regarding labs, ultrasounds, and appointments have been discussed with the patient in detail. It was reiterated that the patient is to drink 6-8 glasses of water a day, eat 6 small meals a day, do not consume raw or undercooked meat, and stay away from select [facility] Patient has been consulted regarding any further do's and don'ts of . Patient voiced understanding and all questions and concerns were answered. Follow Up: Patient is to return in 4 weeks for routine OB appointment. Documented by Kalie Loera LPN on behalf of: Scooby Vega DO documented in this encounter [facility] 03-03-2024 History of Present illness Narrative Physical Therapy Evaluation Visit Patient Name: Tiffanie Elizabeth Today's Date: 03/03/2024 Encounter Diagnoses Name Primary? Pain of left hip Yes Hip flexor tendinitis, left Visit number: 4 Timed Code Treatment Minutes: 40 minutes Total Treatment Time: 55 minutes Time In: 1030 Time Out: 1129 History: Pt states back in October she [...] and it pops a lot randomly. Precautions: Clemons Subjective: Pt states she has been doing exercises at home. Believes hip might be a little better. Has been working on pelvic relaxation with improvements in ROM noted. Will RTD 04/04/24 Pain: 0/10 at rest [...] on Eval Findings and POC Manual Therapy: (40 minutes) Passive ROM, Joint mobilization, Soft Tissue Mobilization, Myofascial Release, Muscle Energy Technique, Neural Mobilization, Myofascial Cupping, Dry Needling, IASTM, and Scar mobilization as needed. IDN to right hip flexor and lateral hip in supine this date. 5 mins no charge. Manual long axis distraction and manipulation. Lateral hip distraction alone, with repeated flexion, and repeated hip IR ROM. Therapeutic Exercise: () Strength, Endurance, Flexibility, ROM, [...] prior to treatment Assessment: Pt has completed 4 PT sessions for left hip pain. Pt with full ER following treatment this date without pain at end range. Continues with clicking in right hip occasionally when returning from full hip flexion. Will progress next session. Outcome Measure:Lower Extremity Functional Scale (LEFS): 59/80 Rehab Diagnosis: left hip pain and weakness Short Term Goal: To be met in 2 weeks Goal 1: Pt to be instructed in home exercise program. Half-Way Goals: To be met in 10 weeks [...] sign below. Date: documented in this encounter [facility] 02-26-2024 History of Present illness Narrative Physical Therapy Evaluation Visit Patient Name: Tiffanie Elizabeth Today's Date: 02/26/2024 Encounter Diagnoses Name Primary? Pain of left hip Yes Hip flexor tendinitis, left Visit number: 3 Timed Code Treatment Minutes: 39 minutes Total Treatment Time: 53 minutes Time In: 1430 Time Out: 1527 History: Pt states back in October she [...] and it pops a lot randomly. Precautions: Clemons Subjective: Pt states she was able to do ex almost daily since here last. Still no significant change in sx's. Pain: 0/10 at rest Objective: PT Evaluation [...] left knee 13 inches from surface with CHALRES Palpation: no complaints of tenderness with palpation Special Test: Pain with FADIR and CHARLES; pain at end range ext/ER Treatment: Education: HEP education with demonstration, Educated on Eval Findings and POC Manual Therapy: (14 minutes) Passive ROM, Joint mobilization, Soft Tissue Mobilization, Myofascial Release, Muscle Energy Technique, Neural Mobilization, Myofascial Cupping, Dry Needling, IASTM, and Scar mobilization as needed. IDN to right hip flexor and lateral hip in supine this date. 4 mins no charge. Manual long axis distraction. Lateral hip distraction alone, with repeated flexion, and repeated hip IR ROM. Therapeutic Exercise: (25 minutes) Strength, Endurance, Flexibility, ROM, HEP, Neural Mobilization, Power, and Core Stability as needed. Reviewed HEP with good pt understanding. Added pelvic relaxation this date with cues for diaphragmatic breathing. Therapeutic Activity: Exercises to improve dynamic activities, functional tasks, functional mobility to return to prior activity level as needed. Neuromuscular re-education: Balance Training, Muscle Facilitation, Dynamic Stability, Core Stabilization, and Blood Flow Restriction Training (BFRT) as needed. Modalities: Heat, Ice, Electrical Stimulation, Ultrasound, Cervical Mechanical Traction, Lumbar Mechanical Traction, Iontophoresis, and Fluidotherapy as needed. Assessment: Pt has completed 3 PT sessions for left hip pain. Pt able to lower left knee 11 inches from mat with CHARLES stretch. Will continue to progress as pt tolerates. Outcome Measure:Lower Extremity Functional Scale (LEFS): 59/80 Rehab Diagnosis: left hip pain and weakness Short Term Goal: To be met in 2 weeks Goal 1: Pt to be instructed in home exercise program. Half-Way Goals: To be met in 10 weeks [...] sign below. Date: documented in this encounter [facility] 02-17-2024 History of Present illness Narrative Physical Therapy Evaluation Visit Patient Name: Tiffanie Elizabeth Today's Date: 02/17/2024 Encounter Diagnoses Name Primary? Pain of left hip Yes Hip flexor tendinitis, left Visit number: 2 Timed Code Treatment Minutes: 48 minutes Total Treatment Time: 48 minutes Time In: 1200 Time Out: 1255 History: Pt states back in October she [...] and it pops a lot randomly. Precautions: Clemons Subjective: Pt states she has not done a whole lot since she was last seen in therapy. Work out one day with a light leg day and did not have pain. Was only able to golf once since she was seen last. Pain: 0/10 at rest Objective: PT Evaluation [...] on Eval Findings and POC Manual Therapy: Passive ROM, Joint mobilization, Soft Tissue Mobilization, Myofascial Release, Muscle Energy Technique, Neural Mobilization, Myofascial Cupping, Dry Needling, IASTM, and Scar mobilization as needed. Therapeutic Exercise: (48 minutes) Strength, Endurance, Flexibility, ROM, HEP, Neural Mobilization, Power, and Core Stability as needed. Educated pt on avoiding painful stretches and exercises. Pt advised to avoid breaking 90 degrees of left hip flexion with working out at gym (reviewed multiple style lunges, squats, and lifts for proper form). Therapeutic Activity: Exercises to improve dynamic activities, functional tasks, functional mobility to return to prior activity level as needed. Neuromuscular re-education: Balance Training, Muscle Facilitation, Dynamic Stability, Core Stabilization, and Blood Flow Restriction Training (BFRT) as needed. Modalities: Heat, Ice, Electrical Stimulation, Ultrasound, Cervical Mechanical Traction, Lumbar Mechanical Traction, Iontophoresis, and Fluidotherapy as needed. Assessment: Pt has completed 2 PT sessions for left hip pain. Pt continues with pain with FADIR and CHARLES. Bilateral hip ER and abd strength 4 to 4+/5 this date. Issued HEP this date with focus on core and hip strengthening. Will continue. Outcome Measure:Lower Extremity Functional Scale (LEFS): 59/80 Rehab Diagnosis: left hip pain and weakness Short Term Goal: To be met in 2 weeks Goal 1: Pt to be instructed in home exercise program. 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 Date: documented in this encounter [facility] 02-12-2024 History of Present illness Narrative Reason for Appointment: Patient ID: Tiffanie Elizabeth is a 38 y.o. female who presents for Amenorrhea Patient presents today for a Nurse OB Intake appointment. Patient is 8w0d with a Estimated Date of Delivery: 09/23/24 OB History Para Term AB Living 2 1 SAB IAB Ectopic Multiple Live Births 1 # Outcome Date GA Lbr Raul/2nd Weight Sex Type Anes PTL Lv 2 Current 1 SAB Current Medications: has a current medication list which includes the following prescription(s): progesterone. Medical History: Active Ambulatory Problems Diagnosis Date Noted No Active Ambulatory Problems Resolved Ambulatory Problems Diagnosis Date Noted No Resolved Ambulatory Problems No Additional Past Medical History No family history on file. Social History Tobacco Use Smoking status: Never Smokeless tobacco: Not on file Substance Use Topics Alcohol use: Not on file Drug use: Not on file Past Surgical History: Procedure Laterality Date DILATION AND CURETTAGE OF UTERUS 10/26/2023 Allergies Allergen Reactions Amoxicillin GI intolerance Other Reaction(s): GI Disturbance, Hives Vitals: Estimated body mass index is 20.05 kg/m as calculated from the following: Height as of 04/21/23: 5' 7 . Weight as of 11/09/23: 128 lb. BP: Patient's last menstrual period was 12/18/2023. Assessment/Plan Diagnoses and all orders for this visit: Missed menses - Type and screen; Future - ABO/Rh; Future - CBC and differential - Hemoglobin A1c - RPR - Rubella antibody, IgG - Hepatitis B surface antigen - Hepatitis C antibody - HIV-1 and HIV-2 antibodies - Urine culture - US OB transvaginal; Future - POCT , urine manually resulted - POCT urinalysis dipstick manually resulted Nurse Note: OB Intake: Patient presents today for first OB visit. Patients history has been reviewed in great detail including any potential risks. Patient signed consent forms and patient desires testing in both trimesters. Patient currently has no complaints and has been advised to drink 6-8 glasses of water a day, eat no raw or undercooked meat, and stay away from [facility]. Patient has also been advised to not change litter boxes and eat 6 small meals a day. Patient has been consulted regarding the do's and don'ts of . Patient was given labs and all questions and concerns were answered. Follow Up: Patient is to return in 4 weeks for routine OB appointment. Follow Up: Patient is to have labs drawn at directed and return to office for initial OB appointment with provider. Patient may call office as needed with any concerns or questions. Nurse Visit Completed by: Estee Cobb LPN documented in this encounter [facility] 02-10-2024 History of Present illness Narrative Physical Therapy Evaluation Visit Patient Name: Tiffanie Elizabeth Today's Date: 02/11/2024 Encounter Diagnoses Name Primary? Pain of left hip Yes Hip flexor tendinitis, left Visit number: 1 Timed Code Treatment Minutes: 55 minutes Total Treatment Time: 55 minutes Time In: 1702 Time Out: 1800 History: Pt states back in October she [...] and it pops a lot randomly. Precautions: Clemons Subjective: left hip ant and lateral Pain: 0-7/10 Objective: PT Evaluation (02/10/2024) Left HIP PROM: [...] on Eval Findings and POC Manual Therapy: Passive ROM, Joint mobilization, Soft Tissue Mobilization, Myofascial Release, Muscle Energy Technique, Neural Mobilization, Myofascial Cupping, Dry Needling, IASTM, and Scar mobilization as needed. Therapeutic Exercise: (30 minutes) Strength, Endurance, Flexibility, ROM, HEP, Neural Mobilization, Power, and Core Stability as needed. Educated pt on avoiding painful stretches and exercises. Pt advised to avoid breaking 90 degrees of left hip flexion with working out at gym (reviewed multiple style lunges, squats, and lifts for proper form). Therapeutic Activity: Exercises to improve dynamic activities, functional tasks, functional mobility to return to prior activity level as needed. Neuromuscular re-education: Balance Training, Muscle Facilitation, Dynamic Stability, Core Stabilization, and Blood Flow Restriction Training (BFRT) as needed. Modalities: Heat, Ice, Electrical Stimulation, Ultrasound, Cervical Mechanical Traction, Lumbar Mechanical Traction, Iontophoresis, and Fluidotherapy as needed. Assessment: Pt is 38 y/o female with complaints of left hip pain. Pt presents with sign and sx's consistent with MARY. Pt educated in proper ex form and technique. Discussed benefit of decreasing frequency of golf throughout the week. Pt to modify activity for one week and then will re-assess. Outcome Measure:Lower Extremity Functional Scale (LEFS): 59/80 Rehab Diagnosis: left hip pain and weakness Short Term Goal: To be met in 2 weeks Goal 1: Pt to be instructed in home exercise program. 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 Date: documented in this encounter [facility] Evaluation note No assessment inform ation available [facility] Work Phone: Evaluation note Diagnosis Onset Date Left hip pain acute [facility] Work Phone: Evaluation note* Diagnosis Pain of left hip- Primary Hip flexor tendinitis, left [facility] Diagnosis Pain of left hip- Primary Hip flexor tendinitis, left [facility]* Diagnosis Femoroacetabular impingement of left hip- Primary [facility] Diagnosis Second trimester state, incidental Screening, , for anatomic survey Encounter for anatomic survey with 15 completed weeks gestation documented in this encounter [facility]* Diagnosis Well woman exam with routine gynecological exam Routine gynecological examination Second trimester state, incidental 19 weeks gestation of Vaginal discharge Leukorrhea, not specified as infective STD exposure Screening, , for anatomic survey Encounter for anatomic survey documented in this encounter [facility]* Diagnosis Advanced maternal age, 1st , second trimester- Primary 23 weeks gestation of [facility] Diagnosis Pain of left hip- Primary Hip flexor tendinitis, left [facility]* Diagnosis First trimester state, incidental Antepartum multigravida of advanced maternal age Nausea and vomiting in Unspecified vomiting of , unspecified as to episode of care documented in this encounter [facility]* Diagnosis Second trimester state, incidental 23 weeks gestation of with normal glucose tolerance test (GTT) Diabetes mellitus screening Screening for diabetes mellitus Gestational diabetes mellitus (GDM), antepartum, gestational diabetes method of control unspecified Elevated glucose tolerance test Impaired glucose tolerance test documented in this encounter [facility]* Diagnosis Missed menses documented [facility]* Diagnosis Pain of left hip- Primary Hip flexor tendinitis, left [facility]* Diagnosis Pain of left hip- Primary Hip flexor tendinitis, left [facility]* Diagnosis 27 weeks gestation of Second trimester state, incidental Gestational diabetes mellitus (GDM), antepartum, gestational diabetes method of control unspecified documented in this encounter [facility] HealthcareInstructionsNot on filedocumented in this encounter[facility] System[facility]ructionsNot on filedocumented in this encounterPro[facility] SystemInstructionsNot on filedocumented in this encounterPro[facility] Summary Purpose Family History No Family History Records FoundNo Family History Records FoundNo Family History Records FoundNo Family History Records Found Advance Directives Advance Directive Response Recorded Date/ Time Advance Directives No November 30 3:47pm Advance Directive Response Recorded Date/ Time Advance Directives No November 30 2:47pm Additional Source Comments INFORMATION SOURCE (unrecogn ized section and content) DATE CREATED AUTHOR 03/22/2022 [facility] DATE CREATED AUTHOR AUTHOR'S ORGANIZ ATION 10/28/2023 [facility] DATE CREATED AUTHOR AUTHOR'S ORGANIZ ATION 04/05/2024 [facility] DATE CREATED AUTHOR AUTHOR'S ORGANIZ ATION 06/05/2024 [facility] EPIC Care Teams (unrecognized sec tion and content) Team Status: Active Member Role Status Dates Provider Conversion Primary Care Provider Active Start: October 05, 2023 Jen Granados MD Attending Provider Active St art: October 05, 2023 Team Status: Active Member Role Status Dates Provider Conversion Primary Care Provider Active Start: October 07, 2023 Jen Granados MD Attending Provider Active St art: October 07, 2023 Team Status: Active Member Role Status Dates Provider Conversion Primary Care Provider Active Start: October 12, 2023 Jen Granados MD Attending Provider Active St art: October 12, 2023 Team Status: Active Member Role Status Dates Provider Conversion Primary Care Provider Active Start: October 23, 2023 Scooby Vega Attending Provider Active Start: Ashish drake 2023 Team Status: Inactive Member Role Status Dates Scooby Vega Attending Provider Active Start: Ashish drake 2023 End: October 23, 2023 Team Status: Active Member Role Status Dates Jen Granados MD Primary Care Provider Active Team [...] Team Status: Active Member Role Status Dates Scooby Vega Attending Provider Active Start: 2023 Team Status: Inactive Member Role Status Dates Jen Granados MD Primary Care Provide r, Attending Provider Active Start: December 01, 2023 End: December 01, 2023 Cyber Threat Analyst Relationship Specialty Start Date End Date Jen Granados MD [address] [facility] [place] [phone] PCP - General Family Medicine 03/10/23 Cyber Threat Analyst Relationship Specialty Start Date End Date Jen Granados MD [address] [facility] [place] [phone] PCP - General Family Medicine 03/10/23 Cyber Threat Analyst Relationship Specialty Start Date End Date Jen Granados MD [address] [facility] [place] [phone] PCP - General Family Medicine 03/10/23 Cyber Threat Analyst Relationship Specialty Start Date End Date Jen Granados MD [address] [facility] [place] [phone] PCP - General Family Medicine 03/10/23 Cyber Threat Analyst Relationship Specialty Start Date End Date Jen Granados MD [address] [place] [address] PCP - General 02/03/24 Cyber Threat Analyst Relationship Specialty Start Date End Date Jen Granados MD [address] [facility] [place] [phone] PCP - General Family Medicine 03/10/23 Cyber Threat Analyst Relationship Specialty Start Date End Date Jen Granados MD [address] [facility] [place], [place] [phone] PCP - General 02/03/24 Cyber Threat Analyst Relationship Specialty Start Date End Date Jen Granados MD [address] [facility] [place] [phone] PCP - General Family Medicine 03/10/23 Cyber Threat Analyst Relationship Specialty Start Date End Date Jen Granados MD [address] [facility] [place] [phone] PCP - General Family Medicine 03/10/23 Cyber Threat Analyst Relationship Specialty Start Date End Date Jen Granados MD [address] [facility] [place] [phone] PCP - General Family Medicine 03/10/23 Cyber Threat Analyst Relationship Specialty Start Date End Date Jen Granados MD [address] [place] [address] PCP - General 02/03/24 Cyber Threat Analyst Relationship Specialty Start Date End Date eJn Granados MD [address] [facility] [place] [phone] PCP - General Family Medicine 03/10/23 Cyber Threat Analyst Relationship Specialty Start Date End Date Jen Granados MD [address] [facility] [place] [phone] PCP - General Family Medicine 03/10/23 Cyber Threat Analyst Relationship Specialty Start Date End Date Jen Granados MD [address] [facility] [place] [phone] PCP - General Family Medicine 03/10/23 Cyber Threat Analyst Relationship Specialty Start Date End Date Jen Granados MD [address] [facility] [place] [phone] PCP - General Family Medicine 03/10/23 Cyber Threat Analyst Relationship Specialty Start Date End Date Jen Granados MD [address] [facility] [place] [phone] PCP - General Family Medicine 03/10/23 Cyber Threat Analyst Relationship Specialty Start Date End Date Jen Granados MD [address] [facility] [place] [phone] PCP - General Family Medicine 03/10/23 Cyber Threat Analyst Relationship Specialty Start Date End Date Jen Granados MD [address] [facility] [place] [address] PCP - General Family Medicine 03/10/23 Team Status: Active Member Role Status Dates Jen Granados MD Primary Care Provider Active Start: April 29, 2024 Scooby Vega DO Attending Provider Active Start : April 29, 2024 Team Status: Active Member Role Status Dates Jen Granados MD Primary Care Provider Active Start: May 02, 2024 Emely Hunter PA-C Attending Provider Active Start : May 02, 2024 Team Status: Active Member Role Status Dates Jen Granados MD Primary Care Provider Active Start: June 25, 2024 Jae Cervantes DO Attending Provider Active S tart: June 25, 2024 Team Status: Inactive Member Role Status Dates Jen Granados MD Primary Care Provider Active Start: June 25, 2024 End: June 25, 2024 Jae Cervantes DO Attending Provider Active S tart: June 25, 2024 End: June 25, 2024 Cyber Threat Analyst Relationship Specialty Start Date End Date Jen Granados MD [address] [facility] [place] [phone] PCP - General Family Medicine 03/10/23 Cyber Threat Analyst Relationship Specialty Start Date End Date Jen Granados MD [address] [place] [phone] PCP - General Family Medicine 03/10/23 Goals (unrecognized section and content) Goals may be documented in a n alternate sectionGoals may be documented in an alternate sectionNot on filedocumented as of this encounterNot on filedocumented as of this encounterNot on filedocumented as of this encounterGoals may be documented in an alternate section Reason for Visit (unrecogniz ed section and content) Specialty Diagnoses / Procedures Referred By Contac t Referred To Contact Physical Therapy Diagnoses Pain in left hip Other specified enthesopathies of left lower limb, excluding foot Procedures [place] PHYSICAL THERAPY EVALUATION LOW COMPLEX 20 MINS Ashley Shin MD [address] [place] [address] Gretchen Moreno PT Referral ID Status Reason Start Date Expiration Date V isits Requested Visits Authorized [id number] Authorized 02/10/2024 08/08/2024 99 99 Reason Comments Follow-up Left hip, PT 1 times /week plus hep, rom has improved, still having pain Reason Comments Routine Visit Reason Comments Routine Visit Well Women Visit STI Screening Reason Comments AMA Reason Comments Amenorrhea FOR RECORDS PERTAINING TO PATIENTS WHO ARE [...] BE BASED ON THE PRIMARY CLINICAL RECORDS. [employer] provides no warranty or guarantee of the accuracy or completeness of information in this document.
[2024-07-02 12:43] LABS: Basophils Percent Auto 0.2 % (0.2-2.0); Eosinophils Absolute Auto 0.1 10^3/uL (0.0-0.7); Eosinophils Percent Auto 0.9 % (0.9-7.0); Hematocrit 32.2 % (36.0-48.0); Hemoglobin 10.9 g/dL (12.0-16.0); Immature Granulocytes Abs Auto 0.13 10^3/uL (0.00-0.03); Immature Granulocytes Pct Auto 1.4 % (0.0-0.5); Lymphocytes Absolute Auto 1.4 10^3/uL (1.2-3.8); Lymphocytes Percent Auto 15.4 % (20.5-60.0); Mean Corpuscular HGB Conc 33.9 g/dL (29.9-35.2); Mean Corpuscular Hemoglobin 32.7 pg (26.7-34.0); Mean Corpuscular Volume 96.7 fL (81.0-99.0); Mean Platelet Volume 9.2 fL (9.5-13.5); Monocytes Absolute Auto 0.5 10^3/uL (0.3-0.8); Monocytes Percent Auto 4.8 % (1.7-12.0); Neutrophils Absolute Auto 7.2 10^3/uL (1.4-6.5); Neutrophils Percent Auto 77.3 % (43.0-75.0); Platelet Count 229 10^3/uL (150-450); Red Blood Count 3.33 10^6/uL (4.20-5.40); White Blood Count 9.3 10^3/uL (4.0-11.0)
== END 2024-07-02 12:33 | disposition home or self-care (01) ==
LOC: LAB 12:32
PROVIDERS: PCP Family Medicine; Visit Provider Obstetrics & Gynecology
DX: Z13.1 Encounter for screening for diabetes mellitus (principal)
CPT/HCPCS: 36415; 84702; 85025

== ENCOUNTER 2024-07-02 13:52 | Outpatient (OUT) | payer OTHER, SELFPAY ==
--- NOTE | 2024-07-02 13:57 | US_ITS ---
[address] [address] Patient Name: RAPHAEL GAMA MRN: [id number] date: 1985 Sex: F Assigned Patient Location: US Current Patient Location: US Accession/Order Number: [id number] Exam Date: 07/02/2024 14:00 Report Date: 07/02/2024 16:00 At the request of: BEVERLY SAHA Procedure: US OB growth EXAMINATION: US OB growth HISTORY: Gestational diabetes mellitus COMPARISON: Ultrasound OB transvaginal 02/12/2024 FINDINGS: Heart Rate: 139.18 bpm Amniotic Fluid Volume: 12.9 cm; normal range. Number: 1 Position: CEPHALIC BIOMETRY: BPD: 7.47 cm; 30 weeks 0 days; 89.20 % HC: 27.68 cm; 30 weeks 2 days; 82.60 % AC: 24.51 cm; 28 weeks 5 days; 61.80 % FL: 5.44 cm; 28 weeks 5 days; 53.70 % EFW: 1317.11 g; 70.30 % FL/AC: 22.21 FL/BPD: 72.84 HC/AC: 1.13 GESTATIONAL AGE: Age by EDC: 20 weeks 1 day ADRIANA by EDC: 2024-09-23 Age by US: 29 weeks 3 days ADRIANA by US: 2024-09-14 US/US OB growth IMPRESSION: 1. Single live intrauterine with growth detailed above. Electronically authenticated by: MATEO PARR Date: 07/02/2024 16:00
== END 2024-07-02 13:53 | disposition home or self-care (01) ==
LOC: US 13:52
PROVIDERS: PCP Family Medicine; Visit Provider Obstetrics & Gynecology
DX: O24.419 Gestational diabetes mellitus in pregnancy, unspecified control (principal); Z13.1 Encounter for screening for diabetes mellitus; Z3A.29 29 weeks gestation of pregnancy
CPT/HCPCS: 36415; 76816; 85025

== ENCOUNTER 2024-07-26 01:29 | Outpatient (OUT) | payer OTHER, SELFPAY ==
--- OUTSIDE RECORDS SUMMARY | 2024-07-26 01:32 | XMS_ITS | CCD ---
Author Organization [facility] Care Team Providers Care Credit Control Clerk Name Role Phone DOREEN, DR HOFFMAN Attending Unavailable DARWIN, DR JEN Ramirez Primary Care Unavailable DOREEN, DR HOFFMAN Admitting Unavailable DOREEN, DR HOFFMAN Consulting Unavailable GARY, DR PAUL Admitting Unavailable GARY, DR PAUL Consulting Unavailable GARY, DR PAUL Attending Unavailable DARWIN, DR JEN Ramirez Primary Care Unavailable Scooby Vega Attending Provider Jen Granados MD Primary Care Provider [phone] KALEB SHINIL Jose Attending Unavailable JEN GRANADOS Referring Unavailable JEN GRANADOS Primary Care Unavailable ASHLEY SHIN K Attending Unavailable JEN GRANADOS Referring Unavailable JEN GRANADOS Primary Care Unavailable Jen Granados MD Primary Care Provider Jen Granados MD Primary Care Provider [phone] Jae Cervantes DO Attending Provider Unavailab Jae Redd Admitting Unavailable Jae Cervantes Attending Unavailable Jen Granados Primary Care Unavailable Scooby Vega Admitting Unavailable Dm Vegay Attending Unavailable DM VEGAY Attending Unavailable EMELY HUNTER Attending Unavailable ISAAC MORENOA Attending Unavailable SHIN, ASHLEY Referring Unavailable MORENO GRETCHEN Attending Unavailable SHIN, ASHLEY Referring Unavailable MORENO GRETCHEN Attending Unavailable SHIN, ASHLEY Referring Unavailable MORENO, GRETCHEN Attending Unavailable SHIN, ASHLEY Referring Unavailable GARYDMY Attending Unavailable MASON, GRETCHEN Attending Unavailable SHIN, ASHLEY Referring Unavailable MORENO, GRETCHEN Attending Unavailable SHIN, ASHLEY Referring Unavailable MORENO, GRETCHEN Attending Unavailable SHIN, ASHLEY Referring Unavailable MORENO, GRETCHEN Attending Unavailable ASHLEY SHIN Referring Unavailable SCOOBY VEGA Attending Unavailable EMELY HUNTER Attending Unavailable SCOOBY VEGA Attending Unavailable SCOOBY VEGA Attending Unavailable Allergies Allergy Classification Reported Allergen(s) Allergy Type Date of Onset Reaction(s) Facility (20 sources) Amoxicillin; Translations: [AMOXICILLIN] Drug Allergy 3 GI intolerance, GI Disturbance [facility] (3 sources) 12 Hour Decongestant Allergy to substance 3 Hives [facility] Medications Current Medications Medication Drug Class(es) Dates Sig (Normalized) Sig (Original) aspirin 81 mg oral tablet (20 sources) Platelet Aggregation Inhibitor, Nonsteroidal Anti-inflammatory Drug take 81 mg by mouth once daily BABY ASPIRIN PO Take 81 mg by mouth Daily Active take 1 tablet by mouth in the mo rning aspirin 81 mg Take 1 tablet (81 mg total) by mouth in the morning. Active Blood Glucose Monitoring Suppl (D-Care Glucometer) w/Device kit (9 sources) Start: 06-02-2024 End: 06-02-2025 Blood Glucose [...] (Other) isopropyl alcohol 0.7 ml/ml medicated pad (9 sources) Start: 06-02-2024 Alcohol Swabs (Alcohol Prep [...] 02/12/2024 Discontinued (Other) omega-3 acid ethyl esters (snf) 1000 mg oral capsule (1 source) take [...] 04-04-2024 Episodic Other and delivery including normal (14 sources) Second trimester ; Translations: [Encounter for supervision of normal , unspecified, second trimester] 04-04-2024 Episodic Other screening for suspected conditions (not mental disorders or infectious disease) (10 sources) Encounter for screening for malignant neoplasm of cervix; Translations: [Patient encounter status] Onset: 03-03-2022 Episodic Residual codes; unclassified (1 source) Pain, unspecified; Translations: [Pain, unspecified] Onset: 02-08-2024 Episodic Residual codes; unclassified (2 sources) Gestation period, 19 weeks; Translations: [19 weeks gestation of ] 05-02-2024 Episodic Residual codes; unclassified (3 sources) Gestation period, 23 weeks; Translations: [23 weeks gestation of ] 05-27-2024 Episodic Residual codes; unclassified (2 sources) Gestation period, 27 weeks; Translations: [27 weeks gestation of ] 06-30-2024 Episodic Residual codes; unclassified (2 sources) Gestation period, 30 weeks; Translations: [30 weeks gestation of ] 07-18-2024 Episodic Unclassified (1 source) New Patient Onset: 02-08-2024 Unclassified (15 sources) OB Reminders Onset: 05-02-2024 05-02-2024 Past or Other Problems Problem Classification Problem Date Documented Da te Episodic/Chronic Other complications of (20 sources) Multigravida of advanced maternal age; Translations: [Supervision of elderly multigravida, unspecified trimester] Onset: 03-07-2024 03-07-2024 Episodic Residual codes; unclassified (20 sources) Gestation period, 15 weeks; Translations: [15 weeks gestation of ] Onset: 04-04-2024 04-04-2024 Episodic Results Test Name Value Interpretation Reference Range Facility Urinalysis macro (dipstick) panel (U)on 07-18-2024 Bilirubin, UA Negative Negative - 4(70) +++ mg/dL [facility] Blood, UA Negative Negative - 50 Ulises/mcL [facility] Clarity, UA Clear [facility] Color, UA Yellow [facility] Glucose, UA Negative Negative - 2000(110) ++++ mg/dL [facility] Interpretation and review of laboratory results Normal [facility] Ketones, UA Negative Negative - 160(16) ++++ mg/dL [facility] Leukocytes, UA Negative Negative - 500+++ Clair/mcL [facility] Nitrite, UA Negative Negative - Positive [facility] pH, UA 7 5 - 9 [facility] Protein, UA Negative Negative - 1999(20) ++++ mg/dL [facility] Spec Grav, UA 1.025 1 - 1.03 [facility] Urobilinogen, UA 0.2 0.2 - 12 mg/dL [facility] ALL CBC WITH AUTO DIFFon BASOPHILS ABSOLUTE AUTO 0 [facility] Basophils/100 WBC (Bld) 0.2 % 0.2 - 2.0 % [facility] Eosinophils/100 WBC (Bld) 0.9 % 0.9 - 7.0 % [facility] Erythrocyte distribution width (RBC) [Ratio] 13 % 11.0 - 15.0 % [facility] Hematocrit (Bld) [Volume fraction] 32.2 % Low 36.0 - 48.0 % [facility] Hemoglobin (Bld) [Mass/Vol] 10.9 g/dL Low 12.0 - 16.0 g/dL [facility] IMMATURE GRANULOCYTES ABS AUTO 0.[address] [facility] Immature granulocytes/100 WBC (Bld) 1.4 % High 0.0 - 0.5 % [facility] Interpretation and review of laboratory results Abnormal [facility] LYMPHOCYTES ABSOLUTE AUTO 1.4 [facility] Lymphocytes/100 WBC (Bld) 15.4 % Low 20.5 - 60.0 % [facility] MCH (RBC) [Entitic mass] 32.7 pg 26.7 - 34.[address] [facility] MCHC (RBC) [Mass/Vol] 33.9 g/dL 29.9 - 35.2 g/dL [facility] MCV (RBC) [Entitic vol] 96.7 fL 81.0 - 99.[address] [facility] MONOCYTES ABSOLUTE AUTO 0.5 [facility] Monocytes/100 WBC (Bld) 4.8 % 1.7 - 12.0 % [facility] NEUTROPHILS ABSOLUTE AUTO 7.[address] [facility] Neutrophils/100 WBC (Bld) 77.3 % High 43.0 - 75.0 % [facility] Platelet mean volume (Bld) [Entitic vol] 9.2 fL Low 9.5 - 13.[address] [facility] TBH EO # 0.1 [facility] TBH PLT 229 [facility] TB RBC 3.[address] [facility] TBH WBC 9.3 [facility] Urinalysis macro (dipstick) panel (U)on 06-30-2024 Bilirubin, UA Negative Negative - 4(70) +++ mg/dL [facility] Blood, UA Negative Negative - 50 Ulises/mcL [facility] Clarity, UA Clear [facility] Color, UA Yellow [facility] Glucose, UA Negative Negative - 2000(110) ++++ mg/dL [facility] Interpretation and review of laboratory results Abnormal [facility] Ketones, UA Negative Negative - 160(16) ++++ mg/dL [facility] Leukocytes, UA Trace Negative - 500+++ Clair/mcL [facility] Nitrite, UA Negative Negative - Positive [facility] pH, UA 8.5 5 - 9 [facility] Protein, UA Positive Negative - 1999(20) ++++ mg/dL [facility] Comment on above: trace Spec Grav, UA 1.015 1 - 1.03 [facility] Urobilinogen, UA 0.2 0.2 - 12 mg/dL [facility] Basophils/100 WBC Manual cnt (Bld)on 06-25-2024 Basophils/100 WBC (Bld) Basophils/100 leukocytes in Blood by Manual count Low 0.2-2.0 [facility] Eosinophils/100 WBC Manual c nt (Bld)on 06-25-2024 Eosinophils/100 WBC (Bld) Eosinophils/100 leukocytes in Blood by Manual count 0.9-7.0 [facility] Erythrocyte distribution wid th Auto (RBC) [Ratio]on 06-25-2024 Erythrocyte distribution width (RBC) [Ratio] Erythrocyte distribution width [Ratio] by Automated count 11.0-15.0 [facility] Estimated glomerular filtrat ion rate (GFR) non- Americanon 06-25-2024 GFR/1.73 sq M.predicted among non-blacks MDRD (S/P/Bld) [Vol rate/Area] Estimated glomerular filtration rate (GFR) non- >=60 mL/min/1.73 m 2 [facility] Hematocrit Auto (Bld) [Volum e fraction]on 06-25-2024 Hematocrit (Bld) [Volume fraction] Hematocrit [Volume Fraction] of Blood by Automated count Low 36.0-48.0 [facility] Hemoglobin [Mass/volume] in Bloodon 06-25-2024 Hemoglobin (Bld) [Mass/Vol] Hemoglobin [Mass/volume] in Blood Low 12.0-16.0 [facility] Laboratory - Chemistry and C hemistry - challengeon 06-25-2024 Calcium [Mass/Vol] 8.2 mg/dL Low 8.5-10.1 [facility] Chloride [Moles/Vol] 99 mmol/L 98-107 [facility] CO2 [Moles/Vol] 21.2 mmol/L 21.0-32.0 [facility] Creatinine [Mass/Vol] 0.89 mg/dL 0.55-1.02 [facility] GFR/1.73 sq M.predicted MDRD (S/P/Bld) [Vol rate/Area] mL/min/{1.73_m2} >=60 mL/min/1.73 m 2 [facility] Glucose [Mass/Vol] 98 mg/dL 74-106 [facility] Potassium [Moles/Vol] 3.7 mmol/L 3.5-5.1 [facility] Sodium [Moles/Vol] 130 mmol/L Low 136-145 [facility] Urea nitrogen [Mass/Vol] 7.0 mg/dL 7.0-18.0 [facility] Urea nitrogen/Creatinine [Mass ratio] 7.9 mg/mg [facility] Bilirubin Ql (U) Negative NEGATIVE [facility] Glucose (U) [Mass/Vol] Negative NEGATIVE [facility] Ketones Ql (U) 15 mg/dL Abnormal NEGATIVE [facility] pH (U) 7.5 [pH] 5.0-9.0 [facility] Specific gravity (U) [Rel density] 1.015 1.005-1.025 [facility] Urobilinogen Qn (U) 1.0 {Ree'U}/dL 0.2-1.0 [facility] Laboratory - Hematology and Cell countson 06-25-2024 Band form neutrophils/100 WBC (Bld) 2.0 % 0-5 [facility] Lymphocytes/100 WBC (Bld) 2.0 % Low 20.5-60.0 [facility] Monocytes/100 WBC (Bld) 5.0 % 1.7-12.0 [facility] Laboratory - Microbiology an d Antimicrobial susceptibilityon 06-25-2024 SARS-CoV-2 (COVID-19) RNA JUAN ANTONIO+probe Ql (Unsp spec) Negative NEGATIVE [facility] Comment on above: This test has [...] ationon 06-25-2024 Appearance (U) CLOUDY Abnormal CLEAR [facility] Color (U) DK YELLOW YELLOW [facility] Laboratory - Urinalysison Leukocyte esterase Test strip Ql (U) Negative NEGATIVE [facility] Nitrite Ql (U) Negative NEGATIVE [facility] Protein Ql (U) TRACE mg/dL NEG/TRACE [facility] Leukocytes [#/volume] correc leroy for nucleated erythrocytes in Blood by Automated counon 06-25-2024 WBC corrected for nucl RBC Auto (Bld) [#/Vol] Leukocytes [#/volume] corrected for nucleated erythrocytes in Blood by Automated coun 4.0-11.0 [facility] MCH Auto (RBC) [Entitic mass ]on 06-25-2024 MCH (RBC) [Entitic mass] MCH [Entitic mass] by Automated count 26.7-34.0 [facility] MCHC Auto (RBC) [Mass/Vol]on 06-25-2024 MCHC (RBC) [Mass/Vol] MCHC [Mass/volume] by Automated count 29.9-35.2 [facility] MCV Auto (RBC) [Entitic vol] on 06-25-2024 MCV (RBC) [Entitic vol] MCV [Entitic volume] by Automated count 81.0-99.0 [facility] No Panel Informationon 06-25 Absolute Basophils (Manual) 0.00 10 3/uL 0.00-0.10 [facility] Band Neutrophils # (Manual) 0.2 10 3/uL 0.0-0.3 [facility] Eosinophils # (Manual) 0.08 10 3/uL 0.00-0.70 [facility] Lymphocytes # (Manual) 0.16 10 3/uL Low 1.20-3.80 [facility] Monocytes # (Manual) 0.41 10 3/uL 0.30-0.80 [facility] Segmented Neutrophils # (Manual) 7.38 10 3/uL High 1.4-6.5 [facility] Urine Occult Blood Negative NEGATIVE [facility] Bedside Influenza Type A Antigen Positive Abnormal [facility] Comment on above: NOTE: Live attenuate d influenza vaccine viruses can cause apositive result for a rapid influenza diagnostic test ifadministered up to 7 days prior to rapid testing. Bedside Influenza Type B Antigen Negative [facility] Comment on above: Negative for Flu B p rotein antigen. Infection due to Flu Bcannot be ruled out. Flu B antigen in the sample may bebelow the detection limit of the test. Platelet mean volume Auto (B ld) [Entitic vol]on 06-25-2024 Platelet mean volume (Bld) [Entitic vol] Platelet mean volume [Entitic volume] in Blood by Automated count Low 9.5-13.5 [facility] Platelets Auto (Bld) [#/Vol] on 06-25-2024 Platelets (Bld) [#/Vol] Platelets [#/volume] in Blood by Automated count 150-450 [facility] RBC Auto (Bld) [#/Vol]on RBC (Bld) [#/Vol] Erythrocytes [#/volu me] in Blood by Automated count Low 4.20-5.40 [facility] Segmented neutrophils/100 WB C Manual cnt (Bld)on 06-25-2024 Segmented neutrophils/100 WBC (Bld) Manual blood segmented neutrophils/100 leukocytes High 43.0-75.0 [facility] Serum or plasma anion gap de terminationon 06-25-2024 Anion gap [Moles/Vol] Serum or plasma anion gap determination [facility] Urine Cultureon 06-25-2024 Bacteria identified Cx Nom (U) No Growth 2 Days PERFORMED BY: [facility] [address] [facility] [place] [address] PATHOLOGIST FRAME CARVER SPINDLE DANTE PALACIOS M.D. Normal [facility] Comment on above: Performed By: #### C UU #### [facility] [address] IGP,APTIMA HPV,AGE GDLNon AGE GDLN ACOG TESTING Note . [facility] Comment on above: TESTS RESULT FLAG UN ITS REF RANGE LAB Clinician Provided Cytology Information Source.............Cervix No. of containers..01 ThinPrep Vial Age Algo ACOG Annel... 30-65 01 FLAG LEGEND: L-Low Normal,H-High Normal,LL-Alert Low,HH-Alert High <-Panic Low,>-Panic High,A-Abnormal,AA-Critical Abnormal Performed at: 01 =G Ileana Rodríguez [address] [facility] [place] [address] Kathryn Maldonado MD, HPV APTIMA Negative Negative [facility] Comment on above: This nucleic acid am plification test detects fourteen high- risk HPV types (16,18,31,33,35,39,45,51,52,56,58,59,66,68) without differentiation. Performed at: = - [facility] [id number] Home Housekeeper: Kathryn Maldonado MD, Phone: [phone] Performed at: - [facility] [id number] Home Housekeeper: Kathryn Maldonado MD, Phone: [phone] IGP, APTIMA HPV, RFX 16/18,[address] [facility] Comment on above: TESTS RESULT FLAG UN ITS REF RANGE LAB DIAGNOSIS: 02 NEGATIVE FOR INTRAEPITHELIAL LESION OR MALIGNANCY. Specimen adequacy: 02 Satisfactory for evaluation. Endocervical and/or squamous metaplastic cells (endocervical component) are present. Performed by: Elidia Shankar, Electronics Recycler . 02 Note: Note 02 The Pap [...] <-Panic Low,>-Panic High,A-Abnormal,AA-Critical Abnormal Performed at: [address] [address] Kathryn Maldonado MD, BRUSH-SPATULA CERVIX [facility] RECURRENT VAGINITIS (HTRX)on 05-05-[address] [facility] ATOPOBIUM VAGINAE Not detected [facility] BVAB 2,3 (BACTERIAL VAGINOSIS ASSOCIATED BACTERIA 2, 3); MOBILUNCUS SPP 0 [facility] BVAB 2,3 (BACTERIAL VAGINOSIS ASSOCIATED BACTERIA 2, 3); MOBILUNCUS SPP Not detected [facility] JED ALBICANS, PARAPSILOSIS, TROPICALIS 0 [facility] JED ALBICANS, PARAPSILOSIS, TROPICALIS Not detected [facility] JED GLABRATA [address] [facility] JED GLABRATA Not detected [facility] JED KRUSEI [address] [facility] JED KRUSEI Not detected [facility] CHLAMYDIA TRACHOMATIS 0 [facility] CHLAMYDIA TRACHOMATIS Not detected [facility] GARDNERELLA VAGINALIS [address] [facility] GARDNERELLA VAGINALIS Not detected [facility] MEGASPHAERA (TYPES 1, 2) 0 [facility] MEGASPHAERA (TYPES 1, 2) Not detected [facility] MYCOPLASMA GENITALIUM 0 [facility] MYCOPLASMA GENITALIUM Not detected [facility] NEISSERIA GONORRHOEAE [address] [facility] NEISSERIA GONORRHOEAE Not detected [facility] TRICHOMONAS VAGINALIS [address] [facility] TRICHOMONAS VAGINALIS Not detected [facility] Urinalysis macro (dipstick) panel (U)on 05-03-2024 Bilirubin, UA Negative Negative - 4(70) +++ mg/dL [facility] Blood, UA Negative Negative - 50 Ulises/mcL [facility] Clarity, UA Clear [facility] Color, UA Yellow [facility] Glucose, UA Negative Negative - 2000(110) ++++ mg/dL [facility] Interpretation and review of laboratory results Normal [facility] Ketones, UA Negative Negative - 160(16) ++++ mg/dL [facility] Leukocytes, UA Negative Negative - 500+++ Clair/mcL [facility] Nitrite, UA Negative Negative - Positive [facility] pH, UA 0.5 5 - 9 [facility] Protein, UA Negative Negative - 1999(20) ++++ mg/dL [facility] Spec Grav, UA 1.025 1 - 1.03 [facility] Urobilinogen, UA 1.0 0.2 - 12 mg/dL [facility] Human papilloma virus 16+18+ 31+33+35+39+45+51+52+56+58+59+66+68 DNA [Presence] in Denis 05-02-2024 HPV 16+18+31+33+35+39+4 5+51+52+56+58+59+66 +68 DNA Probe+sig amp Ql (Cvx) Human papilloma virus 16+18+31+33+35+39+45+51+52+5 6+58+59+66+68 DNA [Presence] in Cer Negative [facility] Comment on above: This nucleic acid am plification test detects fourteen high- risk HPV types (16,18,31,33,35,39,45,51,52,56,58,59,66,68)without differentiation.Performed at: = - [facility] [id number] Director: Kathryn Maldonado MD, Phone: [phone] at: - [facility] [address] [id number] Director: Kathryn Maldonado MD, Phone: [phone] No Panel Informationon 05-02 HPV High Risk Other Comment Note . [facility] Comment on above: TESTS RESULT FLAG UN ITS REF RANGE LAB JESE GNOSIS: 02 NEGATIVE FOR INTRAEPITHELIAL LESION OR MALIGNANCY.Specimen adequacy: 02 Satisfactory for evaluation. Endocervical and/or squamous metaplastic cells (endocervical component) are present.Performed by: 02 Thao Shankar Electronics Recycler. 02Note: Note 02 The Pap smear is [...] Low,>-Panic High,A-Abnormal,AA-Critical Abnormal --Performed at:02 WB [facility] [address] [place] [address] Kathryn Maldonado MD, Reference Lab Test Patient Age Note . [facility] Comment on above: TESTS RESULT FLAG UN ITS REF RANGE LAB Clinician Provided Cytology Information Source.............Cervix No. of containers..01 ThinPrep Svitlana Up... 30 FLAG LEGEND: L-Low Normal,H-High Normal,LL-Alert Low,HH-Alert High <-Panic Low,>-Panic High,A-Abnormal,AA-Critical Abnormal --Performed at:01 =G [address] [place] [address] Kathryn Maldonado MD, AFP, SERUM, OPEN SPINA BIFID Aon 05-01-[address] [facility] AFP VALUE 61.8 ng/mL . [facility] COMMENT: Comment . [facility] Comment on above: Cydney Rodriguez , Ph.D., [facility] Director References: Available Upon Request. Multiples Of Median Cutoffs For AFP Elevations Chiang 2.5 Black 2.8 IDD 2.0 Twins 4.5 Abbreviation Definitions IDD - Insulin Dep Diabetes OSBR - Open Spina Bifida Risk For further inquiries contact [facility] at [phone]. This test was developed and its performance characteristics determined by [employer]. It has not been cleared or approved by the Food and Drug Administration. Performed at: [facility] [place], [place] [id number] Home Housekeeper: Marissa Kovacs [facility], Phone: [phone] GEST. AGE ON COLLECTION DATE 21.[address] [facility] GESTAT. AGE BASED ON LMP . [facility] Comment on above: Recalculations are n ot recommended when gestational dating by LMP and ultrasound are within 10 days. INSULIN DEP DIABETES No . [facility] INTERPRETATION Comment . [facility] Comment on above: Interpretation: Scre en [...] Customer Services to discuss available options. The [employer] [employer] recommends amniocentesis be offered to women age 35 and older. MATERNAL [age] ADRIANA 38.[address] [facility] MULTIPLE GESTATION No . [facility] OSBR RISK [address] [facility] RACE . [facility] RESULTS Report . [facility] TEST RESULTS: Negative . [facility] WEIGHT [address] [facility] N N LMP [id number] 3 15 N 1 Y 135 N N N N N White/ [facility] Alpha-fetoprotein (AFP) paige urement (jzjdfhcz-[id number]-nlafla)on 04-29-2024 AFP [MoM] Alpha-fetoprotein (A FP) measurement ([id number]) . [facility] Assess gestational ageon Gestational age Assess gestational age . [facility] Estimation of maternal age-s pecific risk of Down syndrome birthon 04-29-2024 Age [Time] Estimation of matern al age-specific risk of Down syndrome . [facility] Insulin dependent diabetes m ellitus detectionon 04-29-2024 Insulin dependent diabetes mellitus Ql Insulin dependent diabetes mellitus detection . [facility] Interpretation of serum or p lasma second trimester quad maternal screen (narrative reon 04-29-2024 Second trimester quad maternal screen Darshan [Interp] Interpretation of serum or plasma second trimester quad maternal screen (narrative re . [facility] Comment on above: Interpretation: Scre en [...] 04-29 AFP Triple Screen Comment Comment . [facility] Comment on above: Cydney Rodriguez , Ph.D., DABCCDirectorReferences: Available Upon Request.Multiples Of Median Cutoffs For AFP ElevationsSingleton 2.5 Black 2.8IDD 2.0 Twins 4.5 Abbreviation DefinitionsIDD - Insulin Dep DiabetesOSBR - Open Spina Bifida RiskFor further inquiries contact [employer] [facility] at [phone].This test was developed and its performance characteristicsdetermined by [employer]. It has not been cleared or approvedby the Food and Drug Administration.Performed at: [facility] [employer] [id number] [place], [place] [id number] Director: Marissa Kovacs [facility], Phone: [phone] Alpha Fetoprotein Results Received Report . [facility] Gestational Age Calculation Method LMP . [facility] Comment on above: Recalculations are n ot recommended when gestational datingby LMP and ultrasound are within 10 days. Maternal Quad Test Risk 6916 . [facility] Maternal Race . [facility] Multiple No . [facility] Serum or plasma srpyr-7-vnre protein measurement (mass/volume)on 04-29-2024 AFP [Mass/Vol] Serum or plasma [id number]-[id number]-ylimkurtpzz measurement (mass/volume) . [facility] BOX TEST SENT OUTon BOX TEST SENT OUT Y [facility] UNITY BOX [facility] ALL CBC WITH AUTO DIFFon BASOPHILS ABSOLUTE AUTO 0.0 [facility] Basophils/100 WBC (Bld) 0.5 % 0.2 - 2.0 % [facility] Eosinophils/100 WBC (Bld) 0.9 % 0.9 - 7.0 % [facility] Erythrocyte distribution width (RBC) [Ratio] 11.9 % 11.0 - 15.0 % [facility] IMMATURE GRANULOCYTES ABS AUTO 0.02 [facility] Immature granulocytes/100 WBC (Bld) 0.3 % 0.0 - 0.5 % [facility] Interpretation and review of laboratory results Abnormal [facility] LYMPHOCYTES ABSOLUTE AUTO 1.8 [facility] Lymphocytes/100 WBC (Bld) 27.4 % 20.5 - 60.0 % [facility] MCH (RBC) [Entitic mass] 32.2 pg 26.7 - 34.[address] [facility] MCHC (RBC) [Mass/Vol] 34.0 g/dL 29.9 - 35.2 g/dL [facility] MCV (RBC) [Entitic vol] 94.4 fL 81.0 - 99.[address] [facility] MONOCYTES ABSOLUTE AUTO 0.3 [facility] Monocytes/100 WBC (Bld) 5.1 % 1.7 - 12.0 % [facility] NEUTROPHILS ABSOLUTE AUTO 4.4 [facility] Neutrophils/100 WBC (Bld) 65.8 % 43.0 - 75.0 % [facility] Platelet mean volume (Bld) [Entitic vol] 9.4 fL Low 9.5 - 13.[address] [facility] TB EO # 0.1 [facility] PLT 215 [facility] RBC 3.95 Low [facility] WBC 6.6 [facility] CLINISYNC CBC without diffon Rbc Mcv (Fl) By Automated Count 94.4 [facility] Drug Screen, Urineon 024 Amphetamine/Methamp hetamine Negative [facility] Barbiturate Screen Urine Negative [facility] Benzodiazepine Screen, Urine Negative [facility] Cocaine Metabolite Negative [facility] Mdma Negative [facility] Methadone,Meconium Negative [facility] Opiate Quantitative Urine Negative [facility] Oxycodone Negative [facility] Phencyclidine Negative [facility] Thc Marijuana, Urine Negative [facility] Laboratory - Hematology and Cell countson 02-16-2024 Hematocrit (Bld) [Volume fraction] 37.3 % [facility] Hemoglobin (Bld) [Mass/Vol] 12.7 g/dL [facility] No Panel Informationon 02-15 [facility] Rubella IGG immune statuson 02-16-2024 Rubella immune IgG 3.94 [facility] Syphilis Total(Unknown Syphi lis Status)on 02-16-2024 Syphilis Non-Reactive [facility] HCG ( test) Ql (U)o n 02-12-2024 Interpretation and review of laboratory results Abnormal [facility] Preg Test, Ur Positive [facility] Urinalysis macro (dipstick) panel (U)on 02-12-2024 Bilirubin, UA Negative Negative - 4(70) +++ mg/dL [facility] Blood, UA Negative Negative - 50 Ulises/mcL [facility] Clarity, UA Clear [facility] Color, UA Yellow [facility] Glucose, UA Negative Negative - 2000(110) ++++ mg/dL [facility] Interpretation and review of laboratory results Normal [facility] Ketones, UA Negative Negative - 160(16) ++++ mg/dL [facility] Leukocytes, UA Negative Negative - 500+++ Clair/mcL [facility] Nitrite, UA Negative Negative - Positive [facility] pH, UA 6.5 5 - 9 [facility] Protein, UA Negative Negative - 2000(20) ++++ mg/dL [facility] Spec Grav, UA 1.015 1 - 1.03 [facility] Urobilinogen, UA 1.0 0.2 - 12 mg/dL [facility] No Panel Informationon 11-29 Human Chorionic Gonadotropin, Quant 2 mIU/mL [facility] Comment on above: 5-50 0.2-1 WNGO60-13 0 1-2 IPVFJ411-1,000 2-3 NNPMH328-81,000 3-4 WEEKS1,000-50,000 4-5 WEEKS10,000-100,000 5-6 WEEKS15,000-200,000 6-8 WEEKS10,000-100,000 2-3 MONTHS No Panel Informationon 11-22 Human Chorionic Gonadotropin, Quant 3 mIU/mL [facility] Comment on above: 5-50 0.2-1 RIVC62-31 0 1-2 QNXBC703-5,000 2-3 ZNEFM509-93,000 3-4 WEEKS1,000-50,000 4-5 WEEKS10,000-100,000 5-6 WEEKS15,000-200,000 6-8 WEEKS10,000-100,000 2-3 MONTHS No Panel Informationon 11-16 Human Chorionic Gonadotropin, Quant 6 mIU/mL [facility] Comment on above: 5-50 0.2-1 GBIS46-79 0 1-2 EVCWC169-8,000 2-3 BZSLQ855-44,000 3-4 WEEKS1,000-50,000 4-5 WEEKS10,000-100,000 5-6 WEEKS15,000-200,000 6-8 WEEKS10,000-100,000 2-3 MONTHS No Panel Informationon 11-08 Human Chorionic Gonadotropin, Quant 27 mIU/mL [facility] Comment on above: 5-50 0.2-1 CWAJ85-32 0 1-2 IQUMO691-0,000 2-3 IHDKP300-16,000 3-4 WEEKS1,000-50,000 4-5 WEEKS10,000-100,000 5-6 WEEKS15,000-200,000 6-8 WEEKS10,000-100,000 2-3 MONTHS Basophils Auto (Bld) [#/Vol] on 10-23-2023 Basophils (Bld) [#/Vol] 0.0 10 3/uL 0.0-0.1 [facility] Basophils/100 WBC Auto (Bld) on 10-23-2023 Basophils/100 WBC (Bld) 0.8 % 0.2-2.0 [facility] Eosinophils/100 WBC Auto (Bl d)on 10-23-2023 Eosinophils/100 WBC (Bld) 1.4 % 0.9-7.0 [facility] Erythrocyte distribution wid th Auto (RBC) [Ratio]on 10-23-2023 Erythrocyte distribution width (RBC) [Ratio] 11.9 % 11.0-15.0 [facility] Hematocrit Auto (Bld) [Volum e fraction]on 10-23-2023 Hematocrit (Bld) [Volume fraction] 36.0 % 36.0-48.0 [facility] Hemoglobin [Mass/volume] in Bloodon 10-23-2023 Hemoglobin (Bld) [Mass/Vol] 11.8 g/dL 12.0-16.0 [facility] Krzysztof 10-23-2023 L Specimen: [id number] R eceived: 10/26/23 Status: MAIA Newell Num: [id number] Spec Type: Surgical Subm Dr: Scooby Vega Tissues: A Products of Conception - Spontaneous or Missed (POC) Procedures: HE/3, Gross/Micro L4 Age/ Patient Sex Location Account Attending Physician Tiffanie Elizabeth 37/F LABELL [id number] Scooby Vega SPEC NUM: [id number] RECD: 10/26/23 STATUS: MAIA NEWELL NUM: [id number] JANIE: 10/23/[address]: Scooby Vega ENTERED: 10/26/[address]: Owen,Lab SPEC TYPE: Surgical DEPT: [facility] ORDERED: [...] cm possible area of villous tissue identified. Survey Technician sections to include the possible villous tissue are submitted in A1?A3. Clinical history: Missed CPT Codes 17905 -------- -------- Specimen: [id number] Received: 10/26/23 Status: MAIA Newell Num: [id number] Spec Type: Surgical Subm Dr: Scooby Vega Tissues: A Products of Conception - Spontaneous or Missed (POC) Procedures: HE/3, Gross/Micro L4 -------- Patient: Tiffanie Elizabeth [id number] (Continued) -------- Signed (signature on file) Dante Palacios MD 10/27/23 1511 Normal [facility] Laboratory - Hematology and Cell countson 10-23-2023 Immature granulocytes/100 WBC (Bld) 0.2 % 0.0-0.5 [facility] Leukocytes [#/volume] correc leroy for nucleated erythrocytes in Blood by Automated counon 10-23-2023 WBC corrected for nucl RBC Auto (Bld) [#/Vol] 5.1 10 3/uL 4.0-11.0 [facility] Lymphocytes Auto (Bld) [#/Vo l]on 10-23-2023 Lymphocytes (Bld) [#/Vol] 1.7 10 3/uL 1.2-3.8 [facility] Lymphocytes/100 WBC Auto (Bl d)on 10-23-2023 Lymphocytes/100 WBC (Bld) 32.8 % 20.5-60.0 [facility] MCH Auto (RBC) [Entitic mass ]on 10-23-2023 MCH (RBC) [Entitic mass] 31.1 pg 26.7-34.0 [facility] MCHC Auto (RBC) [Mass/Vol]on 10-23-2023 MCHC (RBC) [Mass/Vol] 32.8 g/dL 29.9-35.2 [facility] MCV Auto (RBC) [Entitic vol] on 10-23-2023 MCV (RBC) [Entitic vol] 95.0 fL 81.0-99.0 [facility] Monocytes Auto (Bld) [#/Vol] on 10-23-2023 Monocytes (Bld) [#/Vol] 0.3 10 3/uL 0.3-0.8 [facility] Monocytes/100 WBC Auto (Bld) on 10-23-2023 Monocytes/100 WBC (Bld) 5.5 % 1.7-12.0 [facility] Neutrophils Auto (Bld) [#/Vo l]on 10-23-2023 Neutrophils (Bld) [#/Vol] 3.0 10 3/uL 1.4-6.5 [facility] Neutrophils/100 WBC Auto (Bl d)on 10-23-2023 Neutrophils/100 WBC (Bld) 59.3 % 43.0-75.0 [facility] No Panel Informationon 10-22 Eosinophils # (Auto) 0.1 10 3/uL 0.0-0.7 [facility] Immature Granulocyte # (Auto) 0.01 10 3/uL 0.00-0.03 [facility] Platelet mean volume Auto (B ld) [Entitic vol]on 10-23-2023 Platelet mean volume (Bld) [Entitic vol] 9.0 fL 9.5-13.5 [facility] Platelets Auto (Bld) [#/Vol] on 10-23-2023 Platelets (Bld) [#/Vol] 182 10 3/uL 150-450 [facility] RBC Auto (Bld) [#/Vol]on RBC (Bld) [#/Vol] 3.79 10 6/uL 4.20-5.40 [facility] No Panel Informationon 10-11 Human Chorionic Gonadotropin, Quant 39189 mIU/mL [facility] Comment on above: 5-50 0.2-1 EAHA88-91 0 1-2 ENDUQ972-2,000 2-3 REMXF183-82,000 3-4 WEEKS1,000-50,000 4-5 WEEKS10,000-100,000 5-6 WEEKS15,000-200,000 6-8 WEEKS10,000-100,000 2-3 MONTHS No Panel Informationon 10-06 Human Chorionic Gonadotropin, Quant 11055 mIU/mL [facility] Comment on above: 5-50 0.2-1 HSGX03-00 0 1-2 MWUWG643-9,000 2-3 QSAIK444-06,000 3-4 WEEKS1,000-50,000 4-5 WEEKS10,000-100,000 5-6 WEEKS15,000-200,000 6-8 WEEKS10,000-100,000 2-3 MONTHS No Panel Informationon 10-04 Human Chorionic Gonadotropin, Quant 86065 mIU/mL [facility] Comment on above: 5-50 0.2-1 NEBZ70-10 0 1-2 RAOOX998-8,000 2-3 JDWEL411-62,000 3-4 WEEKS1,000-50,000 4-5 WEEKS10,000-100,000 5-6 WEEKS15,000-200,000 6-8 WEEKS10,000-100,000 2-3 MONTHS PAP ACOG PANEL 2: 30 to 65on 03-11-2022 . . Normal [facility] Comment on above: Result Comment: Perf ormed at: WB Performed By: #### [id number] #### [facility] [address] [address] [address] Danni Jacobs Age Gdln ACOG Testing 30-65 Normal [facility] Comment on above: Performed By: #### [id number] #### [facility] [address] [address] [address] Danni Jacobs DIAGNOSIS: Comment Normal [facility] Comment on above: Result Comment: NEGA TIVE FOR INTRAEPITHELIAL LESION OR MALIGNANCY. THIS SPECIMEN WAS RESCREENED PART OF OUR DENTAL CHAIRSIDE ASSISTANT PROGRAM. Performed at: WB Performed By: #### [id number] #### [facility] [address] [address] [address] Danni Jacobs HPV Aptima Negative Normal Negative [facility] Comment on above: Result Comment: This nucleic acid amplification test detects fourteen high-risk HPV types (16,18,31,33,35,39,45,51,52,56,58,59,66,68) without differentiation. Performed at: =G Performed By: #### [id number] #### [facility] [address] [address] [address] Danni Jacobs Methodology: Comment Normal [facility] Comment on above: Result Comment: This liquid based ThinPrep(R) pap test was screened with the use of an image guided system. Performed at: WB Performed By: #### [id number] #### [facility] [address] [address] [address] Danni Jacobs Note: Comment Normal [facility] Comment on above: Result Comment: The Pap smear is a screening test designed to aid in the detection of premalignant and malignant conditions of the uterine cervix. It is not a diagnostic procedure and should not be used as the sole means of detecting cervical cancer. Both false-positive and false-negative reports do occur. . Performed at: WB Performed By: #### [id number] #### [facility] [address] [address] [address] Danni Jacobs Performed by: Comment Normal [facility] Comment on above: Result Comment: Rocky Hull, Electronics Recycler (ASCP) Performed at: WB Performed By: #### [id number] #### [facility] [address] [address] [address] Danni Jacobs QC reviewed by: Comment Normal [facility] Comment on above: Result Comment: Betzaida Ge, Supervisory Electronics Recycler (ASCP) Performed at: WB Performed By: #### [id number] #### [facility] [address] [address] [address] Danni Jacobs Specimen adequacy: Comment Normal [facility] Comment on above: Result Comment: Sati sfactory for evaluation. Endocervical and/or squamous metaplastic cells (endocervical component) are present. Performed at: WB Performed By: #### [id number] #### [facility] [address] [address] [address] Danni Jacobs GLUCOSE BLOODon 04-22-2021 Glucose [Mass/Vol] 99 mg/dL Normal 74-106 [facility] Comment on above: Performed By: #### G YOSEPH, LIPID #### [facility] [address] [address] [address] Danni Jacobs LIPID PROFILEon 04-22-2021 CHOL-HDL RATIO NORM SEE BELOW Normal [place] Comment on above: Result Comment: 3.3 - 4.4 LOW RISK 4.4 - 7.1 AVERAGE RISK 7.1 - 11.0 MODERATE RISK >11.0 HIGH RISK Performed By: #### G YOSEPH, LIPID #### [facility] [address] [address] [address] Danni Jacobs Cholesterol [Mass/Vol] 157 mg/dL Normal <=200 [facility] Comment on above: Performed By: #### G YOSEPH, LIPID #### [facility] [address] [address] [address] Danni Jacobs Cholesterol in HDL [Mass/Vol] 74 mg/dL Normal [facility] Comment on above: Performed By: #### G YOSEPH, LIPID #### [facility] [address] [address] [address] Danni Jacobs Cholesterol in LDL [Mass/Vol] 71.2 mg/dL Normal [facility] Comment on above: Performed By: #### G YOSEPH, LIPID #### [facility] [address] [address] [address] Danni Jacobs Cholesterol.total/C holesterol in HDL [Mass ratio] 2.1 {ratio} Normal [facility] Comment on above: Performed By: #### G YOSEPH, LIPID #### [facility] [address] [address] [address] Danni Jacobs HDL NORMAL > or = 60 mg/dl - LO W CARDIOVASCULAR RISK <40 mg/dl - HIGH CARDIOVASCULAR RISK Normal [facility] Comment on above: Performed By: #### G YOSEPH, LIPID #### [facility] [address] [address] [address] Danni Jacobs LDL CALC NORMAL SEE BELOW Normal [facility] Comment on above: Result Comment: <100 mg/dl OPTIMAL 100 - 129 mg/dl NEAR OR ABOVE OPTIMAL 130 - 159 mg/dl BORDERLINE HIGH 160 - 189 mg/dl HIGH >190 mg/dl VERY HIGH Performed By: #### G YOSEPH, LIPID #### [facility] [address] [address] [address] Danni Jacobs Triglyceride [Mass/Vol] 59 mg/dL Normal <=150 [facility] Comment on above: Performed By: #### G YOSEPH, LIPID #### [facility] [address] [address] [address] Danni Jacobs VLDL CALC 11.8 mg/dL Normal [facility] Comment on above: Performed By: #### G YOSEPH, LIPID #### [facility] [address] [address] [address] Danni Jacobs Vital Signs Date Time Vital Sign Value Performing Clinician Faci lity 07-18-2024 15:05-0500 Body mass index (BMI) [Ratio] 22.84 kg/m2 Scooby Gary DO Work Phone: [facility] 07-18-2024 15:05-0500 Body weight 66.13 kg Scooby Gary DO Work Phone: [facility] 07-18-2024 15:05-0500 Diastolic blood pressure 70 mm[Hg] Scooby Gary DO Work Phone: [facility] 07-18-2024 15:05-0500 Systolic blood pressure 118 mm[Hg] Scooby Gary DO Work Phone: [facility] 06-30-2024 12:01-0500 Body mass index (BMI) [Ratio] 22.26 kg/m2 Scooby Gary DO Work Phone: [facility] 06-30-2024 12:01-0500 Body weight 64.47 kg Scooby Gary DO Work Phone: [facility] 06-30-2024 12:01-0500 Diastolic blood pressure 70 mm[Hg] Scooby Gary DO Work Phone: [facility] 06-30-2024 12:01-0500 Systolic blood pressure 110 mm[Hg] Scooby Gary DO Work Phone: [facility] 06-02-2024 10:45-0500 Body mass index (BMI) [Ratio] 21.9 kg/m2 Scooby Gary DO Work Phone: [facility] 06-02-2024 10:45-0500 Body weight 63.41 kg Scooby Gary DO Work Phone: [facility] 06-02-2024 10:45-0500 Diastolic blood pressure 72 mm[Hg] Scooby Gary DO Work Phone: [facility] 06-02-2024 10:45-0500 Systolic blood pressure 116 mm[Hg] Scooby Gary DO Work Phone: [facility] 05-27-2024 14:14-0500 Body height 170.2 cm Gracie Ramsey MD Work Phone: [facility] 05-27-2024 14:14-0500 Body mass index (BMI) [Ratio] 22.08 kg/m2 Gracie Ramsey MD Work Phone: [facility] 05-27-2024 14:14-0500 Body weight 63.96 kg Gracie Ramsey MD Work Phone: [facility] 05-27-2024 14:14-0500 Diastolic blood pressure 63 mm[Hg] Gracie Ramsey MD Work Phone: [facility] 05-27-2024 14:14-0500 Heart rate 83 /min Gracie Ramsey MD Work Phone: [facility] 05-27-2024 14:14-0500 Systolic blood pressure 110 mm[Hg] Gracie Ramsey MD Work Phone: [facility] 05-02-2024 16:20-0500 Body mass index (BMI) [Ratio] 21.61 kg/m2 Emely COBB Work Phone: [facility] 05-02-2024 16:20-0500 Body weight 62.6 kg Emely COBB Work Phone: [facility] 05-02-2024 16:20-0500 Diastolic blood pressure 68 mm[Hg] Emely COBB Work Phone: [facility] 05-02-2024 16:20-0500 Systolic blood pressure 120 mm[Hg] Emely COBB Work Phone: [facility] 04-29-2024 11:40-0500 Body weight Jen Granados MD Work Phone: [facility] 04-04-2024 14:55-0400 Body mass index (BMI) [Ratio] 21.27 kg/m2 Scooby Gary DO Work Phone: [facility] 04-04-2024 14:55-0400 Body weight 61.6 kg Scooby Gary DO Work Phone: [facility] 04-04-2024 14:55-0400 Diastolic blood pressure 70 mm[Hg] Scooby Gary DO Work Phone: [facility] 04-04-2024 14:55-0400 Systolic blood pressure 116 mm[Hg] Scooby Gary DO Work Phone: [facility] 04-04-2024 08:54-0400 Body height 170.2 cm Ashley Shin MD Work Phone: [facility] 04-04-2024 08:54-0400 Body mass index (BMI) [Ratio] 19.73 kg/m2 Ashley Shin MD Work Phone: [facility] 04-04-2024 08:54-0400 Body weight 57.15 kg Ashley Shin MD Work Phone: [facility] 03-07-2024 10:47-0400 Body mass index (BMI) [Ratio] 20.07 kg/m2 Scooby Gary DO Work Phone: [facility] 03-07-2024 10:47-0400 Body weight 58.12 kg Scooby Gary DO Work Phone: [facility] 03-07-2024 10:47-0400 Diastolic blood pressure 68 mm[Hg] Scooby Gary DO Work Phone: [facility] 03-07-2024 10:47-0400 Systolic blood pressure 114 mm[Hg] Scooby Gary DO Work Phone: [facility] 12-01-2023 16:10-0400 Body height 170.18 cm Scooby Gary Work Phone: [facility] 12-01-2023 16:10-0400 Body mass index (BMI) [Ratio] 19.5 kg/m2 Scooby Gary Work Phone: [facility] 12-01-2023 16:10-0400 Body weight 56.69 kg Scooby Gary Work Phone: [facility] 12-01-2023 16:10-0400 Diastolic blood pressure 78 mm[Hg] Scooby Gary Work Phone: [facility] 12-01-2023 16:10-0400 Systolic blood pressure 112 mm[Hg] Scooby Gary Work Phone: [facility] Encounters Encounter Date Encounter Type Care Provider Facility Start: 07-18-2024 End: 07-18-2024 ambulatory SCOOBY GARY Not Available Start: 07-18-2024 End: 07-18-2024 flow sheet Scooby Gary DO Work Phone: [facility] Comment on above: 30 weeks gestation o f ; Third trimester Start: 07-18-2024 End: 07-18-2024 Bamboo flowsheet Socoby Gary DO Work Phone: [facility] Start: 07-18-2024 End: 07-18-2024 Bamboo flowsheet Scooby Gary DO Work Phone: [facility] Start: 07-02-2024 End: 07-02-2024 Clinisync Result Encounter Scooby Gary DO Work Phone: [facility] Unsolicited Start: 07-02-2024 End: 07-02-2024 Clinisync Result Encounter Scooby Gary DO Work Phone: [facility] Unsolicited Start: 06-30-2024 End: 06-30-2024 Bamboo flowsheet Scooby Gary DO Work Phone: [facility] Start: 06-30-2024 End: 06-30-2024 Bamboo flowsheet Scooby Gary DO Work Phone: [facility] Start: 06-30-2024 End: 06-30-2024 ambulatory SCOOBY GARY Not Available Start: 06-30-2024 End: 06-30-2024 flow sheet Scooby Gary DO Work Phone: [facility] Comment on above: 27 weeks gestation o f ; Second trimester ; Gestational diabetes mellitus (GDM), antepartum, gestational diabetes method of control unspecified Start: 06-25-2024 End: 06-25-2024 ambulatory Jen Granados MD Work Phone: [facility] Work Phone: Start: 06-25-2024 End: 06-25-2024 Departed Referred Jen Granados MD Work Phone: [facility] Start: 06-25-2024 Non-patient / Non-visit Jen Granados MD [facility] Phone[facility] Work Phone: Start: 06-02-2024 End: 06-02-2024 Bamboo flowsheet Scooby Gary DO Work Phone: [facility] Start: 06-02-2024 End: 06-02-2024 Bamboo flowsheet Scooby Gary DO Work Phone: [facility] Start: 06-02-2024 End: 06-02-2024 ambulatory SCOOBY GARY Not Available Start: 06-02-2024 End: 06-02-2024 flow sheet Scooby Gary DO Work Phone: [facility] Comment on above: Second trimester pre gnancy; 23 weeks gestation of ; with normal glucose tolerance test (GTT); Diabetes mellitus screening; Gestational diabetes mellitus (GDM), antepartum, gestational diabetes method of control unspecified; Elevated glucose tolerance test Start: 05-27-2024 End: 05-27-2024 Office consultation new/estab patient 40 min Gracie Ramsey MD Work Phone: [facility] [place] Comment on above: Advanced maternal ag e, 1st , second trimester (Primary Dx); 23 weeks gestation of Start: 05-02-2024 Non-patient / Non-visit Jen Granados MD Work Phone: [facility] Work Phone: Start: 05-02-2024 End: 05-02-2024 ambulatory EMELY HUNTER Not Available Start: 05-02-2024 End: 05-02-2024 Patient encounter procedure Emely COBB Work Phone: [facility] Work Phone: Start: 05-02-2024 End: 05-02-2024 flow sheet Emely COBB Work Phone: [facility] Comment on above: Well woman [...] / Non-visit Jen Granados MD Work Phone: [facility] Work Phone: Start: 04-08-2024 End: 04-08-2024 Chart abstracting Scanning Provider External [facility] Start: 04-04-2024 End: 04-04-2024 flow sheet Scooby [...] OB Start: 04-04-2024 End: 04-04-2024 ambulatory ASHLEY Garcia SHIN [facility] Start: 04-04-2024 End: 04-04-2024 Office outpatient visit 15 minutes Ashley Shin MD Work Phone: [facility] Comment on above: [...] CI PT Start: 03-18-2024 End: 03-18-2024 ambulatory Gretchen Moreno PT [facility] Comment on above: Pain of left hip (Pr imary Dx); Hip flexor tendinitis, left Start: 03-11-2024 End: 03-11-2024 Bamboo flowsheet Gretchen Moreno PT [facility] Start: 03-11-2024 End: 03-11-2024 Bamboo flowsheet Gretchen Moreno PT [facility] Start: 03-11-2024 End: 03-14-2024 ambulatory Gretchen Moreno PT [facility] [...] Department Unsolicited Start: 02-26-2024 End: 02-26-2024 ambulatory Gretchen Moreno PT [facility] Comment on above: Pain of left hip (Pr imary Dx); Hip flexor tendinitis, left Start: 02-17-2024 End: 02-17-2024 ambulatory Gretchen Moreno PT [facility] Comment on above: Pain of left hip (Pr imary Dx); Hip flexor tendinitis, left Start: 02-16-2024 End: 02-16-2024 Clinisync Result Encounter Scooby Gary DO Work Phone: [facility] Unsolicited Start: 02-16-2024 End: 02-16-2024 Clinisync Result Encounter Scooby Gary DO Work Phone: [facility] Unsolicited Start: 02-12-2024 End: 02-12-2024 ambulatory SCOOBY GARY Not Available Start: 02-12-2024 End: 02-12-2024 Office outpatient visit 5 minutes [facility] Gary Nurse [facility] Comment on above: GA: 8w0d Start: 02-10-2024 End: 02-11-2024 ambulatory Gretchendavid Moreno PT [facility] Comment on above: Pain of left hip (Pr imary Dx); Hip flexor tendinitis, left Start: 02-10-2024 End: 02-10-2024 Bamboo flowsheet Gretchen Moreno PT [facility] Start: 02-10-2024 End: 02-10-2024 Bamboo flowsheet Gretchen Moreno PT [facility] Start: 02-08-2024 End: 02-08-2024 ambulatory [facility] Start: 02-08-2024 ambulatory [facility] Start: 12-01-2023 End: 12-01-2023 ambulatory Scooby Gary Work Phone: [facility] Work Phone: Start: 12-01-2023 End: 12-01-2023 Patient encounter procedure Scooby Gary Work Phone: [facility] Work Phone: Start: 11-30-2023 Non-patient / Non-visit Scooby Gary Work Phone: [facility] Physician [facility] Work Phone: Start: 11-23-2023 Non-patient / Non-visit Scooby Gary Work Phone: [facility] Work Phone: Start: 11-17-2023 Non-patient / Non-visit Scooby Gary Work Phone: [facility] Work Phone: Start: 11-09-2023 Non-patient / Non-visit Scooby Gary Work Phone: [facility] Physician [facility] Work Phone: Start: 11-09-2023 End: 11-09-2023 ambulatory EMELY HUNTER Not Available Start: 10-23-2023 End: 10-23-2023 ambulatory Scooby Gary [facility] Work Phone: Start: 10-23-2023 End: 10-23-2023 Departed Referred Scooby Gary Work Phone: [facility] Start: 10-23-2023 Non-patient / Non-visit Scooby Gary Work Phone: [facility] Physician [facility] Work Phone: Start: 10-12-2023 Non-patient / Non-visit Scooby Gary Work Phone: [facility] Physician [facility] Work Phone: Start: 10-07-2023 Non-patient / Non-visit Scooby Gary Work Phone: [facility] Work Phone: Start: 10-05-2023 Non-patient / Non-visit Scooby Gary Work Phone: [facility] Work Phone: Start: 03-03-2022 End: 03-03-[address] SCOOBY VEGA Facility:H1 Start: 04-28-2021 Encounter for genera l adult medical examination without abnormal findings DR DALTON LOGAN [facility] Start: 04-22-2021 End: 04-23-[address] DALTON LOGAN Facility:[facility]1 Start: 04-22-2021 End: 04-23-2021 Encounter for general adult medical examination without abnormal findings DR DALTON LOGAN Facility:H1 Procedures Date Procedure Procedure Detail Performing Clinician Start: 07-18-2024 Urnls dip stick/tabl et rgnt non-auto w/o micrscp Scooby Gary DO Work Phone: Start: 07-02-2024 ALL CBC WITH AUTO DIFF Scooby Gary DO Work Phone: Start: 06-30-2024 Urnls dip stick/tabl et rgnt non-auto w/o micrscp Scooby Gary DO Work Phone: Start: 05-03-2024 Urnls dip stick/tabl et rgnt non-auto w/o micrscp Emley COBB Work Phone: Start: 05-02-2024 RECURRENT VAGINITIS (HTRX) Emely COBB Work Phone: Start: 05-02-2024 IGP,APTIMA HPV,AGE GDLN Emely COBB Work Phone: Start: 05-02-2024 Microscopic observat ion [Identifier] in Cervix by Cyto stain Gracie Ramsey MD Work Phone: Start: 04-29-2024 AFP, SERUM, OPEN SPI NA BIFIDA Scooby Gary DO Work Phone: Start: 04-04-2024 Follow-up visit Follow-up ASHLEY Jose SHIN Start: 02-26-2024 TBH BOX TEST SENT OUT C audi Vega DO Work Phone: Start: 02-16-2024 Blood count complete automated Not In System Ref Prov Start: 02-16-2024 Drug scrn 1+ class nonchromo Not In System Ref Prov Start: 02-16-2024 Syphilis test non-treponemal antibody qual Not In System Ref Prov Start: 02-16-2024 ALL CBC WITH AUTO DIFF Scooby Gary DO Work Phone: Start: 02-12-2024 End: 02-12-2024 Urnls dip stick/tablet rgnt non-auto w/o micrscp Scooby Gary DO Work Phone: Plan of Treatment Date Care Activity Detail Author Start: 05-02-2027 Screening for malign ant neoplasm of cervix Pap Smear [facility] Start: 05-27-2025 Tobacco Screening Tobacco Screening [facility] Start: 04-04-2025 Adult BMI Screening Adult BMI Screen ing [facility] Start: 04-04-2025 Tobacco Screening Tobacco Screening [facility] Start: 02-07-2025 Adult BMI Screening Adult BMI Screen ing [facility] Start: 08-01-2024 End: 08-01-2024 Patient encounter procedure 08/01/2024 1:20 PM EST Routine [facility] [address] [place] [address] [place] [address] Scooby Vega, DO [address] [place] [address] [facility] Start: 07-18-2024 End: 07-18-2024 Patient encounter procedure 07/18/2024 2:30 PM EST Routine [facility] [address] [place] [id number] Scooby Vega, DO [address] [place] [address] [facility] Start: 07-18-2024 End: 07-18-2025 US biophysical profile w non stress test US biophysical profile w non stress test Imaging Routine 30 weeks gestation of Third trimester Expected: 07/18/2024 (Approximate), Expires: 07/18/2025 [facility] Work Phone: Comment on above: Expected: 07/18/2024 (Approximate), Expires: 07/18/2025 Start: 06-30-2024 End: 06-30-2025 US biophysical profile w non stress test US biophysical profile w non stress test Imaging Routine Gestational diabetes mellitus (GDM), antepartum, gestational diabetes method of control unspecified Expected: 06/30/2024 (Approximate), Expires: 06/30/2025 [facility] Comment on above: Expected: 06/30/2024 (Approximate), Expires: 06/30/2025 Start: 06-30-2024 End: 06-30-2025 US for US OB follow up transabdominal approach Imaging Routine Gestational diabetes mellitus (GDM), antepartum, gestational diabetes method of control unspecified Expected: 06/30/2024, Expires: 06/30/2025 [facility] Work Phone: Comment on above: Expected: 06/30/2024 , Expires: 06/30/2025 Start: 06-30-2024 End: 06-30-2024 Patient encounter procedure 06/30/2024 11:50 AM EST Routine [facility] [address] [place] [id number] Scooby Vega, DO [address] [place] [address] [facility] Start: 06-25-2024 Urine culture [facility] Start: 06-25-2024 Bacteria identified in Urine by Culture Urine Culture [facility] Start: 06-02-2024 End: 06-02-2025 CBC panel - Blood by Automated count CBC Lab Routine Diabetes mellitus screening Expected: 06/02/2024 (Approximate), Expires: 06/02/2025 [facility] Work Phone: Comment on above: Expected: 06/02/2024 (Approximate), Expires: 06/02/2025 Start: 06-02-2024 End: 06-02-2025 Measurement of glucose 1 hour after glucose challenge for glucose tolerance test Glucose tolerance, 1 hour Lab Routine Diabetes mellitus screening Expected: 06/02/2024 (Approximate), Expires: 06/02/2025 [facility] Comment on above: Expected: 06/02/2024 (Approximate), Expires: 06/02/2025 Start: 06-02-2024 End: 06-02-2024 Patient encounter procedure 06/02/2024 10:10 AM EST Routine [facility] [address] [facility] [place] [address] Scooby Vega, DO [address] [place] [address] [facility] Start: 05-27-2024 End: 05-27-2024 Patient encounter procedure [facility] [place] Start: 05-02-2024 End: 05-02-2024 Patient encounter procedure 05/02/2024 3:30 PM EST Routine [facility] [address] [facility] [place] [address] Emely Hunter PA [address] [place] [address] [facility] Start: 05-02-2024 End: 10-30-2024 Alpha fetoprotein, maternal Alpha fetoprotein, maternal Lab Routine Second trimester 19 weeks gestation of Expected: 05/02/2024 (Approximate), Expires: 10/30/2024 [facility] Comment on above: Expected: 05/02/2024 [...] Visit [facility] [address] [facility] [address] [place] [address] Scooby Vega DO [address] [facility] [address] [place] [address] [facility] Start: 04-04-2024 End: 04-04-2024 [...] Treatment [facility] [address] [facility] [address] [place] [address] Gretchen Moreno, PT [facility] Start: 03-23-2024 End: 03-23-2024 ambulatory 03/23/2024 1:00 PM EDT Treatment [facility] [address] [facility] [address] [place] [address] Gretchen Moreno, PT [facility] Start: 03-18-2024 End: 03-18-2024 ambulatory 03/18/2024 1:30 PM EDT Treatment [facility] [address] [facility] [address] [place] [address] Gretchen Moreno, PT [facility] Start: 03-11-2024 End: 03-11-2024 ambulatory 03/11/2024 1:30 PM EDT Treatment [facility] [address] [facility] [address] [place] [address] Gretchen Moreno, PT [facility] Start: 03-07-2024 End: 03-07-2024 Patient encounter procedure 03/07/2024 10:10 AM EDT Routine [facility] [address] [place] [address] Scooby Vega, DO [address] [facility] [place] [address] [facility] Start: 03-03-2024 End: 03-03-2024 ambulatory 03/03/2024 10:30 AM EDT Treatment [facility] [address] [facility] [address] [place] [address] Gretchen Moreno, PT [facility] Start: 02-26-2024 End: 02-26-2024 ambulatory 02/26/2024 1:30 PM EDT Treatment [facility] [address] [facility] [address] [place] [address] Gretchen Moreno, PT Arrived [facility] Comment on above: Arrived Start: 02-25-2024 End: 02-25-2024 ambulatory 02/25/2024 10:30 AM EDT Treatment [facility] [address] [facility] [address] [place] [address] Gretchen Moreno, PT [facility] Start: 02-21-2024 Influenza vaccination Influenza Vacc ine [facility] Start: 02-17-2024 End: 02-17-2024 ambulatory 02/17/2024 12:00 PM EDT Treatment [facility] [address] [place] [address] Gretchen Moreno, PT [facility] Start: [...] AM EDT Initial [facility] [address] [place] [address] [facility] Start: 02-12-2024 End: 02-12-2024 Professional / ancillary services management 02/12/2024 10:00 AM EDT Ancillary Procedure [facility] [address] [place] [phone] [facility] Start: 02-10-2024 End: 02-10-2024 ambulatory 02/10/2024 5:00 PM EDT Evaluation [facility] [address] [address] [place] [address] Gretchen Moreno, PT Arrived [facility] Comment on above: Arrived Start: 12-10-2008 Screening for malign ant neoplasm of cervix Pap Smear [facility] Start: 12-10-2006 DTaP,Tdap and Td Vaccines (1 - Tdap) DTaP,Tdap and Td Vaccines (1 - Tdap) [facility] Start: 1999 Depression Screening Depression Scre ening [facility] Start: 1999 Tobacco Screening Tobacco Screening [facility] Bacteria identified in Urine by Culture Urine culture Microbiology Routine Missed menses Ordered: 02/12/2024 [facility] Comment on above: Ordered: 02/12/2024 CBC W Auto Different ial panel - Blood CBC and differential Lab Routine Missed menses Ordered: 02/12/2024 [facility] Comment on above: Ordered: 02/12/2024 CHLAMYDIA TRACHOMATI S (GENITO/STI) CHLAMYDIA TRACHOMATIS (GENITO/STI) Lab Routine STD exposure Ordered: 05/02/2024 [facility] Comment on above: Ordered: 05/02/2024 Cytology Cervical or vaginal smear or scraping study Pap Smear Pathology and Cytology Routine Well woman exam with routine gynecological exam Ordered: 05/02/2024 [facility] Comment on above: Ordered: 05/02/2024 Hemoglobin A1c/Hemoglobin.total in Blood Hemoglobin A1c Lab Routine Missed menses Ordered: 02/12/2024 [facility] Comment on above: Ordered: 02/12/2024 Hepatitis B virus surface Ag [Presence] in Serum or Plasma by Immunoassay Hepatitis B surface antigen Lab Routine Missed menses Ordered: 02/12/2024 [facility] Comment on above: Ordered: 02/12/2024 Hepatitis C virus Ab [Presence] in Serum or Plasma by Immunoassay Hepatitis C antibody Lab Routine Missed menses Ordered: 02/12/2024 [facility] Comment on above: Ordered: 02/12/2024 HIV-1/HIV-2 antigen/antibody combination immunoassay HIV-1 and HIV-2 antibodies Lab Routine Missed menses Ordered: 02/12/2024 [facility] Comment on above: Ordered: 02/12/2024 Human papilloma viru s DNA [Presence] in Unspecified specimen by Probe with amplification HPV DNA probe, amplified Microbiology Routine Well woman exam with routine gynecological exam Ordered: 05/02/2024 [facility] Comment on above: Ordered: 05/02/2024 Neisseria gonorrhoea e DNA [Presence] in Unspecified specimen by JUAN ANTONIO with probe detection Neisseria gonorrhea DNA probe, direct Lab Routine STD exposure Ordered: 05/02/2024 [facility] Comment on above: Ordered: 05/02/2024 Reagin Ab [Presence] in Serum by RPR RPR Lab Routine Missed menses Ordered: 02/12/2024 [facility] Comment on above: Ordered: 02/12/2024 Rubella antibody, IgG Rubella an tibody, IgG Lab Routine Missed menses Ordered: 02/12/2024 [facility] Comment on above: Ordered: 02/12/2024 SURESWAB(R) ADVANCED VAGINITIS PLUS, TMA SURESWAB(R) ADVANCED VAGINITIS PLUS, TMA Pathology and Cytology Routine Vaginal discharge Ordered: 05/02/2024 [facility] Work Phone: Comment on above: Ordered: 05/02/2024 XR Hip - left 2 Views [facility] Payers Date Payer Category Payer Commercial Managed C are - POS [employer] [id number] 2022 Private Health Insurance [id number] 2022 Unknown NILAM JORGENSEN [id number] 2022-Present [phone] [id number] [place] [id number] [id number] 1987 Unknown [id number] 2.16.840.1.924743.3.579. 2.593 1987 Unknown [id number] 2.16.840.1.900914.3.579. 2.593 1987 Unknown [id number] 2.16.840.1.089928.3.579. 2.1285 1987 Unknown [id number] 2.16.840.1.580558.3.579. 2.1285 1987 Unknown [id number] 2.16.840.1.235350.3.579. 2.1285 1987 Unknown [id number] 2.16.840.1.625019.3.579. 2.1258 1987 Unknown [id number] 2.16.840.1.012023.3.579. 2.1258 1987 Unknown [id number] 2.16.840.1.671015.3.579. 2.1258 1987 Unknown [id number] 2.16.840.1.686094.3.579. 2.1258 1987 Unknown [id number] 2.16.840.1.894868.3.579. 2.1258 1987 Unknown [id number] 2.16.840.1.106631.3.579. 2.1258 1987 Unknown [id number] 2.16.840.1.928753.3.579. 2.1258 1987 Unknown [id number] 2.16.840.1.114754.3.579. 2.1258 1987 Unknown [id number] 2.16.840.1.404283.3.579. 2.12581988 Unknown [id number] 2.16.840.1.323375.3.579. 2.1258 1987 Unknown [id number] 2.16.840.1.591406.3.579. 2.1258 1987 Unknown [id number] 2.16.840.1.498797.3.579. 2.1258 1987 Unknown [id number] 2.16.840.1.216863.3.579. 2.1258 1987 Unknown [id number] 2.16.840.1.411044.3.579. 2.1258 1987 Unknown [id number] 2.16.840.1.593473.3.579. 2.1258 1987 Unknown [id number] 2.16.840.1.454531.3.579. 2.9 1959 Unknown [id number] Social History Date Type Detail Facility Tobacco smoking stat us NEIS Unknown if ever smoked [facility] Work Phone: Start: 1985 Sex Assigned At Female [facility] Start: 02-26-2023 End: 04-04-2024 Tobacco smoking status NEIS Never smoked tobacco [facility] Start: 11-09-2023 End: 05-27-2024 History of Social function [facility] Start: 11-09-2023 End: 05-27-2024 Tobacco use panel [facility] Start: 01-01-2024 [facility] Start: 1985 Sex assigned at Not on file [facility] Start: 04-04-2024 Tobacco use and exposure Smokeless tobacco non-user [facility] Start: 04-04-2024 End: 05-27-2024 Alcoholic beverage intake Ex-drinker (finding) [facility] Childcare Unknown [facility] Start: 12-30-2023 Gender identity Identifies as female gender (finding) [facility] Start: 12-30-2023 Sexual orientation Heterosexual (finding) [facility] Start: 01-25-2015 End: 06-27-2024 Sex Female (finding) [facility] Tobacco smoking stat [facility] Unknown if ever smoked [facility] Work Phone: Medical Equipment Procedure Code Equipment Code Equipment Origin al Text Equipment Identifier Dates 1 strip by In Vi tro route Daily Use in the morning prior to breakfast, 1 hour after each meal for a total of 4times daily. [id number] Start: 06-02-2024 End: 07-02-2024 1 each by In Vit ro route Daily Use to check FSBS four times daily [id number] Start: 06-02-2024 End: 07-02-2024 Goals Date Patient Goal Desired Activity /State Personal health goal Clinical Notes 02-10-2024 to 07-18-2024 Kalie Loera LPN - 07/18/2024 2:30 PM JORDYN Love - 06/30/2024 11:50 AM Jose Francisco Villanueva LPN - 06/02/2024 10:10 AM Belén Ramsey MD - 05/27/2024 2:15 PM EST Note Date & Type Note Facility 07-18-2024 History of Present illness Narrative Reason for [...] 81 mg, Daily Blood Glucose Monitoring Suppl ([employer] Glucometer) w/Device kit 1 kit, Does not apply, Daily, Use four times daily to check FSBS. In the morning prior to breakfast & 1 hour after each meal for a total of 4times daily. ALLERGIES Allergies Allergen Reactions Amoxicillin GI intolerance [...] nursing note reviewed. Exam conducted with a protective signal operator present. Vitals: Estimated body mass index is 22.84 kg/m as calculated from the following: Height as of 04/21/23: 5' 7 . Weight as of this encounter: 145 lb 12.8 oz. BP: 118/70 Patient's last menstrual period was 12/18/2023. ASSESSMENT & PLAN ICD-10-CM 1. 30 weeks gestation of Z3A.30 POCT urinalysis dipstick manually resulted US biophysical profile w non stress test 2. Third trimester Z34.93 POCT urinalysis dipstick manually resulted US biophysical profile w non stress test Patient presents today for a routine obstetrics appointment. Patient is currently 30w3d with a Estimated Date of Delivery: 09/23/24. Removed gestational diabetes from patients chart. Patient brought in sugar logs for the last 2 weeks and all were within normal limits. Patient is able to discontinue checking sugars. Patient to return to clinic in 2-3 weeks. Documented by Kalie Loera LPN on behalf of:Emely Hunter PA-C documented in this encounter [facility] 06-30-2024 History of Present illness Narrative Reason [...] 81 mg, Daily Blood Glucose Monitoring Suppl ([employer] Glucometer) w/Device kit 1 kit, Does not [...] Vega DO documented in this encounter [facility] 06-02-2024 History of Present illness Narrative [...] nursing note reviewed. Exam conducted with a protective signal operator present. Vitals: Estimated body mass index is [...] Vega DO documented in this encounter [facility] 05-27-2024 History of Present illness Narrative [...] TESTS AND ULTRASOUND REPORTS: Referral records and [facility] chart were reviewed Pertinent Ultrasound findings are see formal ultrasound report. PHYSICAL EXAMINATION: BP 110/63 Pulse 83 Ht 170.2 cm (5' 7 ) Wt 64 kg (141 lb) LMP 12/18/2023 BMI 22.08 kg/m Well-appearing in no distress. Respirations not labored, speaking comfortably in full sentences Gravid abdomen OVERALL ASSESSMENT -Tiffanie Ascencio Siobhan Glenn is a pleasant 38 y.o. at 23w0d [...] preeclampsia prevention as is recommended by the [place] [employer] Committee Opinion No. 743. [...] patient is in complete care of her embossing unit operator. Thank you for allowing me to participate in the care of Tiffanie Elizabeth. If there any questions please do not hesitate to contact us. Gracie Ramsey MD Maternal- Medicine [place] [id number] [facility] [address] [place] [address] [facility], the CDC, and other organizations representing maternal and public health professionals recommend that , , and lactating people and those considering receive the COVID-19 vaccination. Vaccination is the best method to reduce maternal and complications of SARS-CoV-2 infection. This document was created with [employer] technology. Though I make every effort to review the dictation as it is transcribed, on occasion the spoken word can be misinterpreted by the technology leading to inappropriate words, phrases, or sentences. This note is addressed to the requesting provider as a consultation for clinical guidance. Specific medical abbreviations are occasionally used and those are generally approved by the [place]?Board of?Obstetrics and?Gynecology?as well as?Cali aparicio abbreviations. The above plan of care was based solely on the diagnoses for which a consultation was requested. ?More frequent testing may be indicated based on her other medical/obstetrical conditions. The management of other or medical conditions is beyond the scope of requested consultation and will continue to be followed by the primary embossing unit operator or primary care provider. Note to patient: [...] yes Have you been seen here at [facility] in a previous ? N/a Recent ER visits or hospitalizations? no Bring blood sugar log or meter with you today? (Please bring them with you for every visit at [facility]) n/a Flu vaccine (Apr-August)? no Any concerns that you would like me to mention to the provider today? no documented in this encounter [facility] 05-02-2024 History of Present illness Narrative Reason [...] nursing note reviewed. Exam conducted with a protective signal operator present. Vitals: Estimated body mass index is [...] obtained without difficulty and patient was given [facility] order to have obtained. Orders Placed [...] JORDYN Fonseca documented in this encounter [facility] 04-04-2024 History of Present illness Narrative [...] nursing note reviewed. Exam conducted with a protective signal operator present. Vitals: Estimated body mass index is [...] Aspirin. Discussed again in regards to seeing [facility] & referral will be completed. Patient to have NST/BPP starting at 32 weeks gestation. Patient will have Anatomy Scan done at [facility]. Patient is Rh Negative and will [...] Vega DO documented in this encounter [facility] 04-04-2024 History of Present illness Narrative [...] with this plan. documented in this encounter [facility] 04-01-2024 History of Present illness Narrative Physical [...] and it pops a lot randomly. Precautions: [place] Subjective: Pt states overall, ROM has improved. [...] to be instructed in home exercise program. Medical Records Manager Goals: To be met in 10 [...] below. Date: documented in this encounter [facility] 03-23-2024 History of Present illness Narrative [...] and it pops a lot randomly. Precautions: [place] Subjective: Pt states range of motion of [...] to be instructed in home exercise program. Medical Records Manager Goals: To be met in 10 [...] below. Date: documented in this encounter [facility] 03-18-2024 History of Present illness Narrative [...] and it pops a lot randomly. Precautions: [place] Subjective: Pt states she feels like her [...] to be instructed in home exercise program. Intermediate Goals: To be met in 10 weeks [...] below. Date: documented in this encounter [facility] 03-11-2024 History of Present illness Narrative [...] and it pops a lot randomly. Precautions: [place] Subjective: Pt states overall she believes hip [...] to be instructed in home exercise program. Intermediate Goals: To be met in 10 weeks [...] below. Date: documented in this encounter [facility] 03-07-2024 History of Present illness Narrative [...] nursing note reviewed. Exam conducted with a protective signal operator present. Vitals: Estimated body mass index is [...] or undercooked meat, and stay away from [facility]. Patient has been consulted regarding any further do's and don'ts of . Patient voiced understanding and all questions and concerns were answered. Follow Up: Patient is to return in 4 weeks for routine OB appointment. Documented by Kalie Loera LPN on behalf of: Scooby Vega DO documented in this encounter [facility] 03-03-2024 History of Present illness Narrative [...] and it pops a lot randomly. Precautions: [place] Subjective: Pt states she has been doing [...] to be instructed in home exercise program. Intermediate Goals: To be met in 10 weeks [...] below. Date: documented in this encounter [facility] 02-26-2024 History of Present illness Narrative [...] and it pops a lot randomly. Precautions: [place] Subjective: Pt states she was able to [...] to be instructed in home exercise program. Intermediate Goals: To be met in 10 weeks [...] below. Date: documented in this encounter [facility] 02-17-2024 History of Present illness Narrative [...] and it pops a lot randomly. Precautions: [place] Subjective: Pt states she has not done [...] to be instructed in home exercise program. Intermediate Goals: To be met in 10 weeks [...] below. Date: documented in this encounter [facility] 02-12-2024 History of Present illness Narrative [...] or undercooked meat, and stay away from [facility] hospital. Patient has also been advised to not [...] Cobb LPN documented in this encounter [facility] 02-10-2024 History of Present illness Narrative [...] and it pops a lot randomly. Precautions: Fortine Subjective: left hip ant and lateral Pain: [...] to be instructed in home exercise program. Intermediate Goals: To be met in 10 weeks [...] sign below. Date: documented in this encounter [facility] Healthcare Evaluation note No assessment inform ation available [facility] Work Phone: Evaluation note Diagnosis Onset Date Left hip pain acute [facility] Work Phone: Evaluation note* Diagnosis Pain of left hip- Primary Hip flexor tendinitis, left [facility] Diagnosis Pain of left hip- Primary Hip flexor tendinitis, left [facility]* Diagnosis Femoroacetabular impingement of left hip- Primary [facility] Diagnosis Second trimester state, incidental Screening, , for anatomic survey Encounter for anatomic survey with 15 completed weeks gestation [facility]* Diagnosis Well woman exam with routine gynecological exam Routine gynecological examination Second trimester state, incidental 19 weeks gestation of Vaginal discharge Leukorrhea, not specified as infective STD exposure Screening, , for anatomic survey Encounter for anatomic survey documented [facility]* Diagnosis Advanced maternal age, 1st , second trimester- Primary 23 weeks gestation of [facility] Diagnosis Pain of left hip- Primary Hip flexor tendinitis, left [facility]* Diagnosis First trimester state, incidental Antepartum multigravida of advanced maternal age Nausea and vomiting in Unspecified vomiting of , unspecified as to episode of care [facility] Diagnosis Second trimester state, incidental 23 weeks gestation of with normal glucose tolerance test (GTT) Diabetes mellitus screening Screening for diabetes mellitus Gestational diabetes mellitus (GDM), antepartum, gestational diabetes method of control unspecified Elevated glucose tolerance test Impaired glucose tolerance test [facility]* Diagnosis Missed menses documented in [...] control unspecified [facility]* Diagnosis 30 weeks gestation of Third trimester state, incidental documented in this encounter [facility]InstructionsNot on filedocumented in this encounter[facility]ructionsNot on filedocumented in this encounterPro[facility] SystemInstructionsNot on filedocumented in this encounterProE[facility] [...] and content) DATE CREATED AUTHOR 03/22/2022 [facility] [place] [facility] DATE CREATED AUTHOR AUTHOR'S ORGANIZ ATION 04/05/2024 [facility] DATE CREATED AUTHOR AUTHOR'S ORGANIZ ATION 07/03/2024 [facility] DATE CREATED AUTHOR AUTHOR'S ORGANIZ ATION 07/19/2024 [facility] EPIC Care Teams [...] 2023 Scooby Vega Attending Provider Active Start: 2023 [...] December 01, 2023 End: December 01, 2023 Credit Control Clerk Relationship Specialty Start Date End Date Jen Granados MD [address] [facility] [place] [phone] PCP - General Family Medicine 03/10/23 Credit Control Clerk Relationship Specialty Start Date End Date Jen Granados MD [address] [place] [facility] [phone] PCP - General Family Medicine 03/10/23 Credit Control Clerk Relationship Specialty Start Date End Date Jen Granados MD [address] [place] [facility] [address] PCP - General Family Medicine 03/10/23 Credit Control Clerk Relationship Specialty Start Date End Date Jen Granados MD [address] [place] [address] PCP - General Family Medicine 03/10/23 Credit Control Clerk Relationship Specialty Start [place] [address] [place] [address], [facility] PCP - General 02/03/24 Credit Control Clerk Relationship Specialty Start Date End Date Jen Granados MD [address] [place] [address] PCP - General Family Medicine 03/10/23 Credit Control Clerk Relationship Specialty Start Date End Date Jen Granados MD [address] [facility], [facility] PCP - General 02/03/24 Credit Control Clerk Relationship Specialty Start Date End Date Jen Granados MD [address] [place] [phone] PCP - General Family Medicine 03/10/23 Credit Control Clerk Relationship Specialty Start Date End Date Jen Granados MD [address] [place] [facility] [phone] PCP - General Family Medicine 03/10/23 Credit Control Clerk Relationship Specialty Start Date End Date Jen Granados MD [address] [place] [facility] [phone] PCP - General Family Medicine 03/10/23 Credit Control Clerk Relationship Specialty Start Date End Date Jen Granados MD [address] [place] [address] PCP - General 02/03/24 Credit Control Clerk Relationship Specialty Start Date End Date Jen Granados MD [address] [place] [facility] [phone] PCP - General Family Medicine 03/10/23 Credit Control Clerk Relationship Specialty Start Date End Date Jen Granados MD [address] [place] [facility] [phone] PCP - General Family Medicine 03/10/23 Credit Control Clerk Relationship Specialty Start Date End Date Jen Granados MD [address] [place] [address] PCP - General Family Medicine 03/10/23 Credit Control Clerk Relationship Specialty Start Date End Date Jen Granados MD [address] [place] [facility] [phone] PCP - General Family Medicine 03/10/23 Credit Control Clerk Relationship Specialty Start Date End Date Jen Granados MD [address] [place] [facility] [phone] PCP - General Family Medicine 03/10/23 Credit Control Clerk Relationship Specialty Start Date End Date Jen Granados MD [address] [place] [facility] [address] PCP - General Family Medicine 03/10/23 Credit Control Clerk Relationship Specialty Start Date End Date Jen Granados MD [address] [place] [address] PCP - General Family Medicine 03/10/23 [...] June 25, 2024 End: June 25, 2024 Credit Control Clerk Relationship Specialty Start Date End Date Jen Granados MD [address] [place] [phone] PCP - General Family Medicine 03/10/23 Credit Control Clerk Relationship Specialty Start Date End Date Jen Granados MD [address] [place] [facility] [phone] PCP - General Family Medicine 03/10/23 Credit Control Clerk Relationship Specialty Start Date End Date Jen Granados MD [address] [place] [facility] [phone] PCP - General Family Medicine 03/10/23 Credit Control Clerk Relationship Specialty Start Date End Date Jen Granados MD [address] [place] [address] PCP - General Family Medicine 03/10/23 Goals [...] of left lower limb, excluding foot Procedures LA PHYSICAL THERAPY EVALUATION LOW COMPLEX 20 MINS Ashley Shin MD [address] [place] [address] Gretchen Moreno PT Referral ID Status Reason Start Date Expiration Date V isits Requested Visits Authorized [id number] Authorized 02/10/2024 08/08/2024 99 99 Reason Comments [...] BE BASED ON THE PRIMARY CLINICAL RECORDS. [employer] [facility]. provides no warranty or guarantee of the accuracy or completeness of information in this document.
[2024-07-26 18:15] VITALS: BP 112/69; PULSE 81
== END 2024-07-26 18:45 | disposition home or self-care (01) ==
LOC: FBCO 01:29 → FBC 18:00 → FBCO 18:05 → FBC 18:08
PROVIDERS: PCP Family Medicine; Visit Provider Obstetrics & Gynecology
DX: O24.419 Gestational diabetes mellitus in pregnancy, unspecified control (principal)
CPT/HCPCS: 59025

== ENCOUNTER 2024-07-29 01:55 | Outpatient (OUT) | payer OTHER, SELFPAY ==
--- OUTSIDE RECORDS SUMMARY | 2024-07-29 02:01 | XMS_ITS | CCD ---
Author Organization [facility] Care Team Providers Care Editor Farm [employer] Name Role Phone DOREEN, DR HOFFMAN Attending Unavailable DARWIN, DR JEN Ramirez Primary Care Unavailable DOREEN, DR HOFFMAN Admitting Unavailable DOREEN, DR HOFFMAN Consulting Unavailable GARY, DR PAUL Admitting Unavailable GARY, DR PAUL Consulting Unavailable GARY, DR PAUL Attending Unavailable DARWIN, DR JEN Ramirez Primary Care Unavailable Scooby Vega Attending Provider Jen Granados MD Primary Care Provider KALEB SHINIL Jose Attending Unavailable JEN GRANADOS Referring Unavailable JEN GRANADOS Primary Care Unavailable ASHLEY SHIN K Attending Unavailable JEN GRANADOS Referring Unavailable JEN GRANADOS Primary Care Unavailable Jen Granados MD Primary Care Provider Jen Granados MD Primary Care Provider [phone] Jae Cervantes DO Attending Provider Unavailab Jae Redd Admitting Unavailable Jae Cervantes Attending Unavailable Jen Granados Primary Care Unavailable Scooby Vega Admitting Unavailable Scooby Vega Attending Unavailable DM VEGAY Attending Unavailable EMELY [...] Drug Allergy 3 GI intolerance, GI Disturbance [facility] (3 sources) 12 Hour Decongestant Allergy to substance 3 Hives [facility] Medications Current Medications Medication Drug Class(es) Dates [...] UA Negative Negative - 4(70) +++ mg/dL [facility] Blood, UA Negative Negative - 50 Ulises/mcL [facility] Clarity, UA Clear [facility] Color, UA Yellow [facility] Glucose, UA Negative Negative - 2000(110) ++++ mg/dL [facility] Interpretation and review of laboratory results Normal [facility] Ketones, UA Negative Negative - 160(16) ++++ mg/dL [facility] Leukocytes, UA Negative Negative - 500+++ Clair/mcL [facility] Nitrite, UA Negative Negative - Positive [facility] pH, UA 7 5 - 9 [facility] Protein, UA Negative Negative - 1999(20) ++++ mg/dL [facility] Spec Grav, UA 1.025 1 - 1.03 [facility] Urobilinogen, UA 0.2 0.2 - 12 mg/dL [facility] ALL CBC WITH AUTO DIFFon BASOPHILS ABSOLUTE AUTO 0 [facility] Basophils/100 WBC (Bld) 0.2 % 0.2 - 2.0 % [facility] Eosinophils/100 WBC (Bld) 0.9 % 0.9 - 7.0 % [facility] Erythrocyte distribution width (RBC) [Ratio] 13 % 11.0 - 15.0 % [facility] Hematocrit (Bld) [Volume fraction] 32.2 % Low 36.0 - 48.0 % [facility] Hemoglobin (Bld) [Mass/Vol] 10.9 g/dL Low 12.0 - 16.0 g/dL [facility] IMMATURE GRANULOCYTES ABS AUTO 0.13 High [facility] Immature granulocytes/100 WBC (Bld) 1.4 % High 0.0 - 0.5 % [facility] Interpretation and review of laboratory results Abnormal [facility] LYMPHOCYTES ABSOLUTE AUTO 1.4 [facility] Lymphocytes/100 WBC (Bld) 15.4 % Low 20.5 - 60.0 % [facility] MCH (RBC) [Entitic mass] 32.7 pg 26.7 - 34.0 pg [facility] MCHC (RBC) [Mass/Vol] 33.9 g/dL 29.9 - 35.2 g/dL [facility] MCV (RBC) [Entitic vol] 96.7 fL 81.0 - 99.0 fL [facility] MONOCYTES ABSOLUTE AUTO 0.5 [facility] Monocytes/100 WBC (Bld) 4.8 % 1.7 - 12.0 % [facility] NEUTROPHILS ABSOLUTE AUTO 7.2 High [facility] Neutrophils/100 WBC (Bld) 77.3 % High 43.0 - 75.0 % [facility] Platelet mean volume (Bld) [Entitic vol] 9.2 fL Low 9.5 - 13.5 fL [facility] TBH EO # 0.1 [facility] TBH PLT 229 [facility] TB RBC 3.33 Low [facility] TBH WBC 9.3 [facility] Urinalysis macro (dipstick) panel (U)on 06-30-2024 Bilirubin, UA Negative Negative - 4(70) +++ mg/dL [facility] Blood, UA Negative Negative - 50 Ulises/mcL [facility] Clarity, UA Clear [facility] Color, UA Yellow [facility] Glucose, UA Negative Negative - 2000(110) ++++ mg/dL [facility] Interpretation and review of laboratory results Abnormal [facility] Ketones, UA Negative Negative - 160(16) ++++ mg/dL [facility] Leukocytes, UA Trace Negative - 500+++ Clair/mcL [facility] Nitrite, UA Negative Negative - Positive [facility] pH, UA 8.5 5 - 9 [facility] Protein, UA Positive Negative - 1999(20) ++++ mg/dL [facility] Comment on above: trace Spec Grav, UA 1.015 1 - 1.03 [facility] Urobilinogen, UA 0.2 0.2 - 12 mg/dL [facility] Basophils/100 WBC Manual cnt (Bld)on 06-25-2024 Basophils/100 WBC (Bld) Basophils/100 leukocytes in Blood by Manual count Low 0.2-2.0 [facility] Eosinophils/100 WBC Manual c nt (Bld)on 06-25-2024 Eosinophils/100 WBC (Bld) Eosinophils/100 leukocytes in Blood by Manual count 0.9-7.0 [facility] Erythrocyte distribution wid th Auto (RBC) [Ratio]on 06-25-2024 Erythrocyte distribution width (RBC) [Ratio] Erythrocyte distribution width [Ratio] by Automated count 11.0-15.0 [facility] Estimated glomerular filtrat ion rate (GFR) non- Americanon 06-25-2024 GFR/1.73 sq M.predicted among non-blacks MDRD (S/P/Bld) [Vol rate/Area] Estimated glomerular filtration rate (GFR) non- >=60 mL/min/1.73 m 2 [facility] Hematocrit Auto (Bld) [Volum e fraction]on 06-25-2024 Hematocrit (Bld) [Volume fraction] Hematocrit [Volume Fraction] of Blood by Automated count Low 36.0-48.0 [facility] Hemoglobin [Mass/volume] in Bloodon 06-25-2024 Hemoglobin (Bld) [Mass/Vol] Hemoglobin [Mass/volume] in Blood Low 12.0-16.0 [facility] Laboratory - Chemistry and C hemistry - challengeon 06-25-2024 Calcium [Mass/Vol] 8.2 mg/dL Low 8.5-10.1 [facility] Chloride [Moles/Vol] 99 mmol/L 98-107 [facility] CO2 [Moles/Vol] 21.2 mmol/L 21.0-32.0 [facility] Creatinine [Mass/Vol] 0.89 mg/dL 0.55-1.02 [facility] GFR/1.73 sq M.predicted MDRD (S/P/Bld) [Vol rate/Area] mL/min/{1.73_m2} >=60 mL/min/1.73 m 2 [facility] Glucose [Mass/Vol] 98 mg/dL 74-106 [facility] Potassium [Moles/Vol] 3.7 mmol/L 3.5-5.1 [facility] Sodium [Moles/Vol] 130 mmol/L Low 136-145 [facility] Urea nitrogen [Mass/Vol] 7.0 mg/dL 7.0-18.0 [facility] Urea nitrogen/Creatinine [Mass ratio] 7.9 mg/mg [facility] Bilirubin Ql (U) Negative NEGATIVE [facility] Glucose (U) [Mass/Vol] Negative NEGATIVE [facility] Ketones Ql (U) 15 mg/dL Abnormal NEGATIVE [facility] pH (U) 7.5 [pH] 5.0-9.0 [facility] Specific gravity (U) [Rel density] 1.015 1.005-1.025 [facility] Urobilinogen Qn (U) 1.0 {Ree'U}/dL 0.2-1.0 [facility] Laboratory - Hematology and Cell countson 06-25-2024 Band form neutrophils/100 WBC (Bld) 2.0 % 0-5 [facility] Lymphocytes/100 WBC (Bld) 2.0 % Low 20.5-60.0 [facility] Monocytes/100 WBC (Bld) 5.0 % 1.7-12.0 [facility] Laboratory - Microbiology an d Antimicrobial susceptibilityon 06-25-2024 SARS-CoV-2 (COVID-19) RNA JUAN ANTONIO+probe Ql (Unsp spec) Negative NEGATIVE [facility] Comment on above: This test has not [...] ationon 06-25-2024 Appearance (U) CLOUDY Abnormal CLEAR [facility] Color (U) DK YELLOW YELLOW [facility] Laboratory - Urinalysison Leukocyte esterase Test strip Ql (U) Negative NEGATIVE [facility] Nitrite Ql (U) Negative NEGATIVE [facility] Protein Ql (U) TRACE mg/dL NEG/TRACE [facility] Leukocytes [#/volume] correc leroy for nucleated erythrocytes in Blood by Automated counon 06-25-2024 WBC corrected for nucl RBC Auto (Bld) [#/Vol] Leukocytes [#/volume] corrected for nucleated erythrocytes in Blood by Automated coun 4.0-11.0 [facility] MCH Auto (RBC) [Entitic mass ]on 06-25-2024 MCH (RBC) [Entitic mass] MCH [Entitic mass] by Automated count 26.7-34.0 [facility] MCHC Auto (RBC) [Mass/Vol]on 06-25-2024 MCHC (RBC) [Mass/Vol] MCHC [Mass/volume] by Automated count 29.9-35.2 [facility] MCV Auto (RBC) [Entitic vol] on 06-25-2024 MCV (RBC) [Entitic vol] MCV [Entitic volume] by Automated count 81.0-99.0 [facility] No Panel Informationon 06-25 Absolute Basophils (Manual) 0.00 10 3/uL 0.00-0.10 [facility] Band Neutrophils # (Manual) 0.2 10 3/uL 0.0-0.3 [facility] Eosinophils # (Manual) 0.08 10 3/uL 0.00-0.70 [facility] Lymphocytes # (Manual) 0.16 10 3/uL Low 1.20-3.80 [facility] Monocytes # (Manual) 0.41 10 3/uL 0.30-0.80 [facility] Segmented Neutrophils # (Manual) 7.38 10 3/uL High 1.4-6.5 [facility] Urine Occult Blood Negative NEGATIVE [facility] Bedside Influenza Type A Antigen Positive Abnormal [facility] Comment on above: NOTE: Live attenuate d influenza vaccine viruses can cause apositive result for a rapid influenza diagnostic test ifadministered up to 7 days prior to rapid testing. Bedside Influenza Type B Antigen Negative [facility] Comment on above: Negative for Flu B p rotein antigen. Infection due to Flu Bcannot be ruled out. Flu B antigen in the sample may bebelow the detection limit of the test. Platelet mean volume Auto (B ld) [Entitic vol]on 06-25-2024 Platelet mean volume (Bld) [Entitic vol] Platelet mean volume [Entitic volume] in Blood by Automated count Low 9.5-13.5 [facility] Platelets Auto (Bld) [#/Vol] on 06-25-2024 Platelets (Bld) [#/Vol] Platelets [#/volume] in Blood by Automated count 150-450 [facility] RBC Auto (Bld) [#/Vol]on RBC (Bld) [#/Vol] Erythrocytes [#/volu me] in Blood by Automated count Low 4.20-5.40 [facility] Segmented neutrophils/100 WB C Manual cnt (Bld)on 06-25-2024 Segmented neutrophils/100 WBC (Bld) Manual blood segmented neutrophils/100 leukocytes High 43.0-75.0 [facility] Serum or plasma anion gap de terminationon 06-25-2024 Anion gap [Moles/Vol] Serum or plasma anion gap determination [facility] Urine Cultureon 06-25-2024 Bacteria identified Cx Nom (U) No Growth 2 Days PERFORMED BY: [facility] [address] [place] [address] PATHOLOGIST THERAPIST ASST DANTE PALACIOS M.D. Normal [facility] Comment on above: Performed By: #### C UU #### [facility] [address] IGP,APTIMA HPV,AGE GDLNon AGE GDLN ACOG TESTING Note . [facility] Comment on above: TESTS RESULT FLAG UN ITS REF RANGE LAB Clinician Provided Cytology Information Source.............Cervix No. of containers..01 ThinPrep Vial Age Algo ACOG Annel... 30-65 01 FLAG LEGEND: L-Low Normal,H-High Normal,LL-Alert Low,HH-Alert High <-Panic Low,>-Panic High,A-Abnormal,AA-Critical Abnormal Performed at: 01 =G Ileana Rodríguez [address] [facility] [place] [address] Kathryn Maldonado MD, HPV APTIMA Negative Negative [facility] Comment on above: This nucleic acid am plification test detects fourteen high- risk HPV types (16,18,31,33,35,39,45,51,52,56,58,59,66,68) without differentiation. Performed at: = - [facility] [id number] [employer] Development Team Lead: Kathryn Maldonado MD, Phone: [phone] Performed at: - [facility] [id number] [employer] Team Lead: Kathryn Maldonado MD, Phone: [phone] IGP, APTIMA HPV, RFX 16/18,45 Note . [facility] Comment on above: TESTS RESULT FLAG UN ITS REF RANGE LAB DIAGNOSIS: 02 NEGATIVE FOR INTRAEPITHELIAL LESION OR MALIGNANCY. Specimen adequacy: 02 Satisfactory for evaluation. Endocervical and/or squamous metaplastic cells (endocervical component) are present. Performed by: Elidia Shankar, Knot Tying Operator . 02 Note: Note 02 The Pap [...] Low,>-Panic High,A-Abnormal,AA-Critical Abnormal Performed at: [address] [address] Kathryn Maldonado MD, BRUSH-SPATULA CERVIX [facility] RECURRENT VAGINITIS (HTRX)on 05-05-2024 ATOPOBIUM VAGINAE 0 [facility] ATOPOBIUM VAGINAE Not detected [facility] BVAB 2,3 (BACTERIAL VAGINOSIS ASSOCIATED BACTERIA 2, 3); MOBILUNCUS SPP 0 [facility] BVAB 2,3 (BACTERIAL VAGINOSIS ASSOCIATED BACTERIA 2, 3); MOBILUNCUS SPP Not detected [facility] JED ALBICANS, PARAPSILOSIS, TROPICALIS 0 [facility] JED ALBICANS, PARAPSILOSIS, TROPICALIS Not detected [facility] JED GLABRATA 0 [facility] JED GLABRATA Not detected [facility] JED KRUSEI 0 [facility] JED KRUSEI Not detected [facility] CHLAMYDIA TRACHOMATIS 0 [facility] CHLAMYDIA TRACHOMATIS Not detected [facility] GARDNERELLA VAGINALIS 0 [facility] GARDNERELLA VAGINALIS Not detected [facility] MEGASPHAERA (TYPES 1, 2) 0 [facility] MEGASPHAERA (TYPES 1, 2) Not detected [facility] MYCOPLASMA GENITALIUM 0 [facility] MYCOPLASMA GENITALIUM Not detected [facility] NEISSERIA GONORRHOEAE 0 [facility] NEISSERIA GONORRHOEAE Not detected [facility] TRICHOMONAS VAGINALIS 0 [facility] TRICHOMONAS VAGINALIS Not detected [facility] Urinalysis macro (dipstick) panel (U)on 05-03-2024 Bilirubin, UA Negative Negative - 4(70) +++ mg/dL [facility] Blood, UA Negative Negative - 50 Ulises/mcL [facility] Clarity, UA Clear [facility] Color, UA Yellow [facility] Glucose, UA Negative Negative - 2000(110) ++++ mg/dL [facility] Interpretation and review of laboratory results Normal [facility] Ketones, UA Negative Negative - 160(16) ++++ mg/dL [facility] Leukocytes, UA Negative Negative - 500+++ Clair/mcL [facility] Nitrite, UA Negative Negative - Positive [facility] pH, UA 0.5 5 - 9 [facility] Protein, UA Negative Negative - 1999(20) ++++ mg/dL [facility] Spec Grav, UA 1.025 1 - 1.03 [facility] Urobilinogen, UA 1.0 0.2 - 12 mg/dL [facility] Human papilloma virus 16+18+ 31+33+35+39+45+51+52+56+58+59+66+68 DNA [Presence] in Denis 05-02-2024 HPV 16+18+31+33+35+39+4 5+51+52+56+58+59+66 +68 DNA Probe+sig amp Ql (Cvx) Human papilloma virus 16+18+31+33+35+39+45+51+52+5 6+58+59+66+68 DNA [Presence] in Cer Negative [facility] Comment on above: This nucleic acid am plification test detects fourteen high- risk HPV types (16,18,31,33,35,39,45,51,52,56,58,59,66,68)without differentiation.Performed at: = - [facility] [id number] Director: Kathryn Maldonado MD, Phone: [phone] at: - [facility] [address] [id number] Director: Kathryn Maldonado MD, Phone: [phone] No Panel Informationon 05-02 HPV High Risk Other Comment Note . [facility] Comment on above: TESTS RESULT FLAG UN ITS REF RANGE LAB JESE GNOSIS: 02 NEGATIVE FOR INTRAEPITHELIAL LESION OR MALIGNANCY.Specimen adequacy: 02 Satisfactory for evaluation. Endocervical and/or squamous metaplastic cells (endocervical component) are present.Performed by: 02 Thao Shankar Knot Tying Operator. 02Note: Note 02 The Pap smear is [...] Low,>-Panic High,A-Abnormal,AA-Critical Abnormal --Performed at:02 WB [facility] [address] [place] [address] Kathryn Maldonado MD, Reference Lab Test Patient Age Note . [facility] Comment on above: TESTS RESULT FLAG UN ITS REF RANGE LAB Clinician Provided Cytology Information Source.............Cervix No. of containers..01 ThinPrep Svitlana Up... 30 FLAG LEGEND: L-Low Normal,H-High Normal,LL-Alert Low,HH-Alert High <-Panic Low,>-Panic High,A-Abnormal,AA-Critical Abnormal --Performed at:01 =G [address] [place] [address] Kathryn Maldonado MD, AFP, SERUM, OPEN SPINA BIFID Aon 05-01-2024 AFP MOM 1.18 . [facility] AFP VALUE 61.8 ng/mL . [facility] COMMENT: Comment . [facility] Comment on above: Cydney Rodriguez , Ph.D., [facility] Director References: Available Upon Request. Multiples Of Median Cutoffs For AFP Elevations Chiang 2.5 Black 2.8 IDD 2.0 Twins 4.5 Abbreviation Definitions IDD - Insulin Dep Diabetes OSBR - Open Spina Bifida Risk For further inquiries contact [employer] [facility] at [phone]. This test was developed and its performance characteristics determined by ki work. It has not been cleared or approved by the Food and Drug Administration. Performed at: [facility] [place], [place] [id number] Java Development Team Lead: Marissa Kovacs [facility], Phone: [phone] GEST. AGE ON COLLECTION DATE 19.0 . weeks [facility] GESTAT. AGE BASED ON LMP . [facility] Comment on above: Recalculations are n ot recommended when gestational dating by LMP and ultrasound are within 10 days. INSULIN DEP DIABETES No . [facility] INTERPRETATION Comment . [facility] Comment on above: Interpretation: Scre en [...] Customer Services to discuss available options. The [employer] recommends amniocentesis be offered to women age 35 and older. [age] [facility] MULTIPLE GESTATION No . [facility] OSBR RISK 1 IN 6916 . [facility] RACE . [facility] RESULTS Report . [facility] TEST RESULTS: Negative . [facility] WEIGHT 135 . lbs [facility] N N LMP [id number] 3 15 N 1 Y 135 N N N N N White/ [facility] Alpha-fetoprotein (AFP) paige urement (cxzwrcsp-[id number]-djnldd)on 04-29-2024 AFP [MoM] Alpha-fetoprotein (A FP) measurement (krzuubml-el-[id number]) . [facility] Assess gestational ageon Gestational age Assess gestational age . [facility] Estimation of maternal age-s pecific risk of Down syndrome birthon [birth year]-29-2024 Age [Time] Estimation of matern al age-specific risk of Down syndrome . [facility] Insulin dependent diabetes m ellitus detectionon 04-29-2024 Insulin dependent diabetes mellitus Ql Insulin dependent diabetes mellitus detection . [facility] Interpretation of serum or p lasma second trimester quad maternal screen (narrative reon 04-29-2024 Second trimester quad maternal screen Darshan [Interp] Interpretation of serum or plasma second trimester quad maternal screen (narrative re . [facility] Comment on above: Interpretation: Scre en NegativeThis [...] 04-29 AFP Triple Screen Comment Comment . [facility] Comment on above: Cydney Rodriguez , Ph.D., DABCCDirectorReferences: Available Upon Request.Multiples Of Median Cutoffs For AFP ElevationsSingleton 2.5 Black 2.8IDD 2.0 Twins 4.5 Abbreviation DefinitionsIDD - Insulin Dep DiabetesOSBR - Open Spina Bifida RiskFor further inquiries contact [employer] [facility] at [phone].This test was developed and its performance characteristicsdetermined by CX. It has not been cleared or approvedby the Food and Drug Administration.Performed at: [facility] ki work [id number] [place], [place] [id number] Director: Marissa Kovacs [facility], Phone: [phone] Alpha Fetoprotein Results Received Report . [facility] Gestational Age Calculation Method LMP . [facility] Comment on above: Recalculations are n ot recommended when gestational datingby LMP and ultrasound are within 10 days. Maternal Quad Test Risk 6916 . [facility] Maternal Race . [facility] Multiple No . [facility] Serum or plasma ivcgu-1-fhnj protein measurement (mass/volume)on 04-29-2024 AFP [Mass/Vol] Serum or plasma jomew-7-[id number] measurement (mass/volume) . [facility] BOX TEST SENT OUTon BOX TEST SENT OUT Y [facility] UNITY BOX [facility] ALL CBC WITH AUTO DIFFon BASOPHILS ABSOLUTE AUTO 0.0 [facility] Basophils/100 WBC (Bld) 0.5 % 0.2 - 2.0 % [facility] Eosinophils/100 WBC (Bld) 0.9 % 0.9 - 7.0 % [facility] Erythrocyte distribution width (RBC) [Ratio] 11.9 % 11.0 - 15.0 % [facility] IMMATURE GRANULOCYTES ABS AUTO 0.02 [facility] Immature granulocytes/100 WBC (Bld) 0.3 % 0.0 - 0.5 % [facility] Interpretation and review of laboratory results Abnormal [facility] LYMPHOCYTES ABSOLUTE AUTO 1.8 [facility] Lymphocytes/100 WBC (Bld) 27.4 % 20.5 - 60.0 % [facility] MCH (RBC) [Entitic mass] 32.2 pg 26.7 - 34.0 pg [facility] MCHC (RBC) [Mass/Vol] 34.0 g/dL 29.9 - 35.2 g/dL [facility] MCV (RBC) [Entitic vol] 94.4 fL 81.0 - 99.0 fL [facility] MONOCYTES ABSOLUTE AUTO 0.3 [facility] Monocytes/100 WBC (Bld) 5.1 % 1.7 - 12.0 % [facility] NEUTROPHILS ABSOLUTE AUTO 4.4 [facility] Neutrophils/100 WBC (Bld) 65.8 % 43.0 - 75.0 % [facility] Platelet mean volume (Bld) [Entitic vol] 9.4 fL Low 9.5 - 13.5 fL [facility] TB EO # 0.1 [facility] PLT 215 [facility] RBC 3.95 Low [facility] WBC 6.6 [facility] CBC without diffon Rbc Mcv (Fl) By Automated Count 94.4 [facility] Drug Screen, Urineon 024 Amphetamine/Methamp hetamine Negative [facility] Barbiturate Screen Urine Negative [facility] Benzodiazepine Screen, Urine Negative [facility] Cocaine Metabolite Negative [facility] Mdma Negative [facility] Methadone,Meconium Negative [facility] Opiate Quantitative Urine Negative [facility] Oxycodone Negative [facility] Phencyclidine Negative [facility] Thc Marijuana, Urine Negative [facility] Laboratory - Hematology and Cell countson 02-16-2024 Hematocrit (Bld) [Volume fraction] 37.3 % [facility] Hemoglobin (Bld) [Mass/Vol] 12.7 g/dL [facility] [facility] Panel Informationon 02-15 [facility] Rubella IGG immune statuson 02-16-2024 Rubella immune IgG 3.94 [facility] Syphilis Total(Unknown Syphi lis Status)on 02-16-2024 Syphilis Non-Reactive [facility] HCG ( test) Ql (U)o n 02-12-2024 Interpretation and review of laboratory results Abnormal [facility] Preg Test, Ur Positive [facility] Urinalysis macro (dipstick) panel (U)on 02-12-2024 Bilirubin, UA Negative Negative - 4(70) +++ mg/dL [facility] Blood, UA Negative Negative - 50 Ulises/mcL [facility] Clarity, UA Clear [facility] Color, UA Yellow [facility] Glucose, UA Negative Negative - 2000(110) ++++ mg/dL [facility] Interpretation and review of laboratory results Normal [facility] Ketones, UA Negative Negative - 160(16) ++++ mg/dL [facility] Leukocytes, UA Negative Negative - 500+++ Clair/mcL [facility] Nitrite, UA Negative Negative - Positive [facility] pH, UA 6.5 5 - 9 [facility] Protein, UA Negative Negative - 2000(20) ++++ mg/dL [facility] Spec Grav, UA 1.015 1 - 1.03 [facility] Urobilinogen, UA 1.0 0.2 - 12 mg/dL [facility] No Panel Informationon 11-29 Human Chorionic Gonadotropin, Quant 2 mIU/mL [facility] Comment on above: 5-50 0.2-1 PLIT12-06 0 1-2 NREDQ908-1,000 2-3 OMZTQ967-55,000 3-4 WEEKS1,000-50,000 4-5 WEEKS10,000-100,000 5-6 WEEKS15,000-200,000 6-8 WEEKS10,000-100,000 2-3 MONTHS No Panel Informationon 11-22 Human Chorionic Gonadotropin, Quant 3 mIU/mL [facility] Comment on above: 5-50 0.2-1 ASFT66-85 0 1-2 BKCHO167-8,000 2-3 MTDBM898-96,000 3-4 WEEKS1,000-50,000 4-5 WEEKS10,000-100,000 5-6 WEEKS15,000-200,000 6-8 WEEKS10,000-100,000 2-3 MONTHS No Panel Informationon 11-16 Human Chorionic Gonadotropin, Quant 6 mIU/mL [facility] Comment on above: 5-50 0.2-1 ERGT48-33 0 1-2 HMJOZ527-6,000 2-3 RVEBU443-64,000 3-4 WEEKS1,000-50,000 4-5 WEEKS10,000-100,000 5-6 WEEKS15,000-200,000 6-8 WEEKS10,000-100,000 2-3 MONTHS No Panel Informationon 11-08 Human Chorionic Gonadotropin, Quant 27 mIU/mL [facility] Comment on above: 5-50 0.2-1 RBZB24-28 0 1-2 UOIBM072-6,000 2-3 CPNHI339-39,000 3-4 WEEKS1,000-50,000 4-5 WEEKS10,000-100,000 5-6 WEEKS15,000-200,000 6-8 WEEKS10,000-100,000 2-3 MONTHS Basophils Auto (Bld) [#/Vol] on 10-23-2023 Basophils (Bld) [#/Vol] 0.0 10 3/uL 0.0-0.1 [facility] Basophils/100 WBC Auto (Bld) on 10-23-2023 Basophils/100 WBC (Bld) 0.8 % 0.2-2.0 [facility] Eosinophils/100 WBC Auto (Bl d)on 10-23-2023 Eosinophils/100 WBC (Bld) 1.4 % 0.9-7.0 [facility] Erythrocyte distribution wid th Auto (RBC) [Ratio]on 10-23-2023 Erythrocyte distribution width (RBC) [Ratio] 11.9 % 11.0-15.0 [facility] Hematocrit Auto (Bld) [Volum e fraction]on 10-23-2023 Hematocrit (Bld) [Volume fraction] 36.0 % 36.0-48.0 [facility] Hemoglobin [Mass/volume] in Bloodon 10-23-2023 Hemoglobin (Bld) [Mass/Vol] 11.8 g/dL 12.0-16.0 [facility] Krzysztof 10-23-2023 L Specimen: [id number] R eceived: 10/26/23 Status: MAIA Newell Num: [id number] Spec Type: Surgical Subm Dr: Scooby Vega Tissues: A Products of Conception - Spontaneous or Missed (POC) Procedures: HE/3, Gross/Micro L4 Age/ Patient Sex Location Account Attending Physician Tiffanie Elizabeth 37/F LABELL [id number] Scooby Vega SPEC NUM: [id number] RECD: 10/26/23 STATUS: MAIA NEWELL NUM: [id number] JANIE: 10/23/[address]: Scooby Vega ENTERED: [...] cm possible area of villous tissue identified. Stage Rigger sections to include the possible villous tissue are submitted in A1?A3. Clinical history: Missed CPT Codes 76755 -------- -------- Specimen: [id number] Received: 10/26/23 Status: MAIA Newell Num: [id number] Spec Type: Surgical Subm Dr: Scooby Vega Tissues: A Products of Conception - Spontaneous or Missed (POC) Procedures: HE/3, Gross/Micro L4 -------- Patient: Tiffanie Elizabeth [id number] (Continued) -------- Signed (signature on file) Dante Palacios MD 10/27/23 1511 Normal [facility] - Hematology and Cell countson 10-23-2023 Immature granulocytes/100 WBC (Bld) 0.2 % 0.0-0.5 [facility] Leukocytes [#/volume] correc leroy for nucleated erythrocytes in Blood by Automated counon 10-23-2023 WBC corrected for nucl RBC Auto (Bld) [#/Vol] 5.1 10 3/uL 4.0-11.0 [facility] Lymphocytes Auto (Bld) [#/Vo l]on 10-23-2023 Lymphocytes (Bld) [#/Vol] 1.7 10 3/uL 1.2-3.8 [facility] Lymphocytes/100 WBC Auto (Bl d)on 10-23-2023 Lymphocytes/100 WBC (Bld) 32.8 % 20.5-60.0 [facility] MCH Auto (RBC) [Entitic mass ]on 10-23-2023 MCH (RBC) [Entitic mass] 31.1 pg 26.7-34.0 [facility] MCHC Auto (RBC) [Mass/Vol]on 10-23-2023 MCHC (RBC) [Mass/Vol] 32.8 g/dL 29.9-35.2 [facility] MCV Auto (RBC) [Entitic vol] on 10-23-2023 MCV (RBC) [Entitic vol] 95.0 fL 81.0-99.0 [facility] Monocytes Auto (Bld) [#/Vol] on 10-23-2023 Monocytes (Bld) [#/Vol] 0.3 10 3/uL 0.3-0.8 [facility] Monocytes/100 WBC Auto (Bld) on 10-23-2023 Monocytes/100 WBC (Bld) 5.5 % 1.7-12.0 [facility] Neutrophils Auto (Bld) [#/Vo l]on 10-23-2023 Neutrophils (Bld) [#/Vol] 3.0 10 3/uL 1.4-6.5 [facility] Neutrophils/100 WBC Auto (Bl d)on 10-23-2023 Neutrophils/100 WBC (Bld) 59.3 % 43.0-75.0 [facility] No Panel Informationon 10-22 Eosinophils # (Auto) 0.1 10 3/uL 0.0-0.7 [facility] Immature Granulocyte # (Auto) 0.01 10 3/uL 0.00-0.03 [facility] Platelet mean volume Auto (B ld) [Entitic vol]on 10-23-2023 Platelet mean volume (Bld) [Entitic vol] 9.0 fL 9.5-13.5 [facility] Platelets Auto (Bld) [#/Vol] on 10-23-2023 Platelets (Bld) [#/Vol] 182 10 3/uL 150-450 [facility] RBC Auto (Bld) [#/Vol]on RBC (Bld) [#/Vol] 3.79 10 6/uL 4.20-5.40 [facility] No Panel Informationon 10-11 Human Chorionic Gonadotropin, Quant 12139 mIU/mL [facility] Comment on above: 5-50 0.2-1 TQZI15-20 0 1-2 XRTYH896-9,000 2-3 IIWRG267-92,000 3-4 WEEKS1,000-50,000 4-5 WEEKS10,000-100,000 5-6 WEEKS15,000-200,000 6-8 WEEKS10,000-100,000 2-3 MONTHS No Panel Informationon 10-06 Human Chorionic Gonadotropin, Quant 21901 mIU/mL [facility] Comment on above: 5-50 0.2-1 MEZY55-06 0 1-2 YVESG237-8,000 2-3 HHHWQ637-29,000 3-4 WEEKS1,000-50,000 4-5 WEEKS10,000-100,000 5-6 WEEKS15,000-200,000 6-8 WEEKS10,000-100,000 2-3 MONTHS No Panel Informationon 10-04 Human Chorionic Gonadotropin, Quant 71736 mIU/mL [facility] Comment on above: 5-50 0.2-1 OHEP16-75 0 1-2 QTRFE376-0,000 2-3 LANZQ015-40,000 3-4 WEEKS1,000-50,000 4-5 WEEKS10,000-100,000 5-6 WEEKS15,000-200,000 6-8 WEEKS10,000-100,000 2-3 MONTHS PAP ACOG PANEL 2: 30 to 65on 03-11-[address] [facility] Comment on above: Result Comment: Perf ormed at: WB Performed By: #### [id number] #### [facility] [address] [address] [address] Danni Jacobs Age Gdln ACOG Testing 30-[address] [facility] Comment on above: Performed By: #### [id number] #### [facility] [address] [address] [address] Danni Jacobs DIAGNOSIS: Comment Normal [facility] Comment on above: Result Comment: NEGA TIVE FOR INTRAEPITHELIAL LESION OR MALIGNANCY. THIS SPECIMEN WAS RESCREENED PART OF OUR MANAGER WELLNESS PROGRAM. Performed at: WB Performed By: #### [id number] #### [facility] [address] [address] [address] Danni Jacobs HPV Aptima Negative Normal Negative [facility] Comment on above: Result Comment: This nucleic acid amplification test detects fourteen high-risk HPV types (16,18,31,33,35,39,45,51,52,56,58,59,66,68) without differentiation. Performed at: =G Performed By: #### [id number] #### [facility] [address] [address] [address] Danni Jacobs Methodology: Comment Normal [facility] Comment on above: Result Comment: This liquid based ThinPrep(R) pap test was screened with the use of an image guided system. Performed at: WB Performed By: #### [id number] #### [facility] [address] [address] [address] Danni Jacobs Note: Comment Normal [facility] Comment on above: Result Comment: The Pap smear is a screening test designed to aid in the detection of premalignant and malignant conditions of the uterine cervix. It is not a diagnostic procedure and should not be used as the sole means of detecting cervical cancer. Both false-positive and false-negative reports do occur. . Performed at: WB Performed By: #### [id number] #### [facility] [address] [address] [address] Danni Jacobs Performed by: Comment Normal [facility] Comment on above: Result Comment: Rocky Hull, Knot Tying Operator (ASCP) Performed at: WB Performed By: #### [id number] #### [facility] [address] [address] [address] Danni Jacobs QC reviewed by: Comment Normal [facility] Comment on above: Result Comment: Betzaida Ge, Supervisory Knot Tying Operator (ASCP) Performed at: WB Performed By: #### [id number] #### [facility] [address] [address] [address] Danni Jacobs Specimen adequacy: Comment Normal [facility] Comment on above: Result Comment: Sati sfactory for evaluation. Endocervical and/or squamous metaplastic cells (endocervical component) are present. Performed at: WB Performed By: #### [id number] #### [facility] [address] [address] [address] Danni Jacobs GLUCOSE BLOODon 04-22-2021 Glucose [Mass/Vol] 99 mg/dL Normal 74-106 [facility] Comment on above: Performed By: #### G YOSEPH, LIPID #### [facility] [address] [address] [address] Danni Jacobs LIPID PROFILEon 04-22-2021 CHOL-HDL RATIO NORM SEE BELOW Normal [facility] Comment on above: Result Comment: 3.3 - 4.4 LOW RISK 4.4 - 7.1 AVERAGE RISK 7.1 - 11.0 MODERATE RISK >11.0 HIGH RISK Performed By: #### G YOSEPH, LIPID #### [facility] [address] [address] [address] Danni Jacobs Cholesterol [Mass/Vol] 157 mg/dL Normal <=200 [facility] Comment on above: Performed By: #### G YOSEPH, LIPID #### [facility] [address] [address] [address] Danni Jacobs Cholesterol in HDL [Mass/Vol] 74 mg/dL Normal [facility] Comment on above: Performed By: #### G YOSEPH, LIPID #### [facility] [address] [address] [address] Danni Jacobs Cholesterol in LDL [Mass/Vol] 71.2 mg/dL Normal [facility] Comment on above: Performed By: #### G YOSEPH, LIPID #### [facility] [address] [address] [address] Danni Jacobs Cholesterol.total/C holesterol in HDL [Mass ratio] 2.1 {ratio} Normal [facility] Comment on above: Performed By: #### G YOSEPH, LIPID #### [facility] [address] [address] [address] Danni Jacobs HDL NORMAL > or = 60 mg/dl - LO W CARDIOVASCULAR RISK <40 mg/dl - HIGH CARDIOVASCULAR RISK Normal [facility] Comment on above: Performed By: #### G YOSEPH, LIPID #### [facility] [address] [address] [address] Danni Jacobs LDL CALC NORMAL SEE BELOW Normal [facility] Comment on above: Result Comment: <100 mg/dl OPTIMAL 100 - 129 mg/dl NEAR OR ABOVE OPTIMAL 130 - 159 mg/dl BORDERLINE HIGH 160 - 189 mg/dl HIGH >190 mg/dl VERY HIGH Performed By: #### G YOSEPH, LIPID #### [facility] [address] [address] [address] Danni Jacobs Triglyceride [Mass/Vol] 59 mg/dL Normal <=150 [facility] Comment on above: Performed By: #### G YOSEPH, LIPID #### [facility] [address] [address] [address] Danni Jacobs VLDL CALC 11.8 mg/dL Normal [facility] Comment on above: Performed By: #### G YOSEPH, LIPID #### [facility] [address] [address] [address] Danni Jacobs Vital Signs Date Time Vital Sign Value Performing Clinician Faci lity 07-18-2024 15:05-0500 Body mass index (BMI) [Ratio] 22.84 kg/m2 Scooby Gary DO Work Phone: [facility] 07-18-2024 15:05-0500 Body weight 66.13 kg Scooby Gary DO Work Phone: [facility] 07-18-2024 15:05-0500 Diastolic blood pressure 70 mm[Hg] Scooby Gary DO Work Phone: [facility] 07-18-2024 15:05-0500 Systolic blood pressure 118 mm[Hg] Scooby Gary DO Work Phone: [facility] 06-30-2024 12:01-0500 Body mass index (BMI) [Ratio] 22.26 kg/m2 Scooby Gary DO Work Phone: [facility] 06-30-2024 12:01-0500 Body weight 64.47 kg Scooby Gary DO Work Phone: [facility] 06-30-2024 12:01-0500 Diastolic blood pressure 70 mm[Hg] Scooby Gary DO Work Phone: [facility] 06-30-2024 12:01-0500 Systolic blood pressure 110 mm[Hg] Scooby Gary DO Work Phone: [facility] 06-02-2024 10:45-0500 Body mass index (BMI) [Ratio] 21.9 kg/m2 Scooby Gary DO Work Phone: [facility] 06-02-2024 10:45-0500 Body weight 63.41 kg Scooby Gary DO Work Phone: [facility] 06-02-2024 10:45-0500 Diastolic blood pressure 72 mm[Hg] Scooby Gary DO Work Phone: [facility] 06-02-2024 10:45-0500 Systolic blood pressure 116 mm[Hg] Scooby Gary DO Work Phone: [facility] 05-27-2024 14:14-0500 Body height 170.2 cm Gracie Ramsey MD Work Phone: [facility] 05-27-2024 14:14-0500 Body mass index (BMI) [Ratio] 22.08 kg/m2 Gracie Ramsey MD Work Phone: [facility] 05-27-2024 14:14-0500 Body weight 63.96 kg Gracie Ramsey MD Work Phone: [facility] 05-27-2024 14:14-0500 Diastolic blood pressure 63 mm[Hg] Gracie Ramsey MD Work Phone: [facility] 05-27-2024 14:14-0500 Heart rate 83 /min Gracie Ramsey MD Work Phone: [facility] 05-27-2024 14:14-0500 Systolic blood pressure 110 mm[Hg] Gracie Ramsey MD Work Phone: [facility] 05-02-2024 16:20-0500 Body mass index (BMI) [Ratio] 21.61 kg/m2 Emely COBB Work Phone: [facility] 05-02-2024 16:20-0500 Body weight 62.6 kg Emely COBB Work Phone: [facility] 05-02-2024 16:20-0500 Diastolic blood pressure 68 mm[Hg] Emely COBB Work Phone: [facility] 05-02-2024 16:20-0500 Systolic blood pressure 120 mm[Hg] Emely COBB Work Phone: [facility] 04-29-2024 11:40-0500 Body weight Jen Granados MD Work Phone: [facility] 04-04-2024 14:55-0400 Body mass index (BMI) [Ratio] 21.27 kg/m2 Scooby Gary DO Work Phone: [facility] 04-04-2024 14:55-0400 Body weight 61.6 kg Scooby Gary DO Work Phone: [facility] 04-04-2024 14:55-0400 Diastolic blood pressure 70 mm[Hg] Scooby Gary DO Work Phone: [facility] 04-04-2024 14:55-0400 Systolic blood pressure 116 mm[Hg] Scooby Gary DO Work Phone: [facility] 04-04-2024 08:54-0400 Body height 170.2 cm Ashley Shin MD Work Phone: [facility] 04-04-2024 08:54-0400 Body mass index (BMI) [Ratio] 19.73 kg/m2 Ashley Shin MD Work Phone: [facility] 04-04-2024 08:54-0400 Body weight 57.15 kg Ashley Shin MD Work Phone: [facility] 03-07-2024 10:47-0400 Body mass index (BMI) [Ratio] 20.07 kg/m2 Scooby Gary DO Work Phone: [facility] 03-07-2024 10:47-0400 Body weight 58.12 kg Scooby Gary DO Work Phone: [facility] 03-07-2024 10:47-0400 Diastolic blood pressure 68 mm[Hg] Scooby Gary DO Work Phone: [facility] 03-07-2024 10:47-0400 Systolic blood pressure 114 mm[Hg] Scooby Gary DO Work Phone: [facility] 12-01-2023 16:10-0400 Body height 170.18 cm Scooby Gary Work Phone: [facility] 12-01-2023 16:10-0400 Body mass index (BMI) [Ratio] 19.5 kg/m2 Scooby Gary Work Phone: [facility] 12-01-2023 16:10-0400 Body weight 56.69 kg Scooby Gary Work Phone: [facility] 12-01-2023 16:10-0400 Diastolic blood pressure 78 mm[Hg] Scooby Gary Work Phone: [facility] 12-01-2023 16:10-0400 Systolic blood pressure 112 mm[Hg] Scooby Gary Work Phone: [facility] Encounters Encounter Date Encounter Type Care Provider Facility Start: 07-18-2024 End: 07-18-2024 ambulatory SCOOBY GARY Not Available Start: 07-18-2024 End: 07-18-2024 flow sheet Scooby Gary DO Work Phone: [facility] Comment on above: 30 weeks gestation o f ; Third trimester Start: 07-18-2024 End: 07-18-2024 Bamboo flowsheet Scooby [...] Bamboo flowsheet Scooby Gary DO Work Phone: [facility] Start: 06-30-2024 End: 06-30-2024 ambulatory SCOOBY GARY Not Available Start: 06-30-2024 End: 06-30-2024 flow sheet Scooby Gary DO Work Phone: [facility] Comment on above: 27 weeks gestation o f ; Second trimester ; Gestational diabetes mellitus (GDM), antepartum, gestational diabetes method of control unspecified Start: 06-25-2024 End: 06-25-2024 ambulatory Jen Granados MD Work Phone: [facility] Work Phone: Start: 06-25-2024 End: 06-25-2024 Departed Referred Jen Granados MD Work Phone: [facility] Start: 06-25-2024 Non-patient / Non-visit [facility]ados MD [facility] Work Phone: Start: 06-02-2024 End: 06-02-2024 Bamboo flowsheet Scooby Gary DO Work Phone: [facility] Start: 06-02-2024 End: 06-02-2024 Bamboo flowsheet Scooby Gary DO Work Phone: [facility] Start: 06-02-2024 End: 06-02-2024 ambulatory SCOOBY GARY Not Available Start: 06-02-2024 End: 06-02-2024 flow sheet Scooby Gary DO Work Phone: [facility] Comment on above: Second trimester pre gnancy; 23 weeks gestation of ; with normal glucose tolerance test (GTT); Diabetes mellitus screening; Gestational diabetes mellitus (GDM), antepartum, gestational diabetes method of control unspecified; Elevated glucose tolerance test Start: 05-27-2024 End: 05-27-2024 Office consultation new/estab patient 40 min Gracie Ramsey MD Work Phone: [facility] Comment on above: Advanced maternal ag e, 1st , second trimester (Primary Dx); 23 weeks gestation of Start: 05-02-2024 Non-patient / Non-visit Jen Granados MD Work Phone: [facility] Work Phone: Start: 05-02-2024 [...] / Non-visit Jen Granados MD Work Phone: [facility] Work Phone: Start: 04-08-2024 End: 04-08-2024 Chart abstracting Scanning Provider External M[facility]- [facility] at [facility] Start: 04-04-2024 End: 04-04-2024 flow sheet [...] 04-04-2024 End: 04-04-2024 ambulatory ASHLEY Garcia SHIN [facility] Start: 04-04-2024 End: 04-04-2024 Office outpatient visit 15 minutes Ashley Shin MD Work Phone: [facility] Comment on above: [...] CI PT Start: 03-03-2024 End: 03-03-2024 ambulatory Gretcehn Moreno PT [facility] Comment on [...] CI PT Start: 02-08-2024 End: 02-08-2024 ambulatory [facility] Start: 02-08-2024 ambulatory [facility] Start: 12-01-2023 End: 12-01-2023 ambulatory Scooby Gary Work Phone: [facility] Work Phone: Start: 12-01-2023 End: 12-01-2023 Patient encounter procedure Scooby Gary Work Phone: [facility] Work Phone: Start: 11-30-2023 Non-patient / Non-visit Scooby Gary Work Phone: [facility] Work Phone: Start: 11-23-2023 Non-patient / Non-visit Scooby Gary Work Phone: [facility] Work Phone: Start: 11-17-2023 Non-patient / Non-visit Scooby Gary Work Phone: [facility] Work Phone: Start: 11-09-2023 Non-patient / Non-visit Scooby Gary Work Phone: [facility] Work Phone: Start: 11-09-2023 End: 11-09-2023 ambulatory EMELY HUNTER Not Available Start: 10-23-2023 End: 10-23-[address] [facility] Work Phone: Start: 10-23-2023 End: 10-23-2023 Departed Referred Scooby Gary Work Phone: [facility] Start: 10-23-2023 Non-patient / Non-visit Scooby Gary Work Phone: [facility] Work Phone: Start: 10-12-2023 Non-patient / Non-visit Scooby Gary Work Phone: [facility] Work Phone: Start: 10-07-2023 Non-patient / Non-visit Scooby Gary Work Phone: [facility] Work Phone: Start: 10-05-2023 Non-patient / Non-visit Scooby Gary Work Phone: [facility] Work Phone: Start: 03-03-2022 End: 03-03-[address] SCOOBY VEGA Facility:[facility] Start: 04-28-2021 Encounter for genera l adult medical examination without abnormal findings DR DALTON LOGAN [facility] Start: 04-22-2021 End: 04-23-2021 ambulatory [...] malign ant neoplasm of cervix Pap Smear [facility] Start: 05-27-2025 Tobacco Screening Tobacco Screening [facility] Start: 04-04-2025 Adult BMI Screening Adult BMI Screen ing [facility] Start: 04-04-2025 Tobacco Screening Tobacco Screening [facility] Start: 02-07-2025 Adult BMI Screening Adult BMI Screen ing [facility] Start: 08-01-2024 End: 08-01-2024 Patient encounter procedure 08/01/2024 1:20 PM EST Routine [facility] [address] [place] [address] [place] [address] Scooby Vega, DO [address] [place] [address] [facility] Start: 07-18-2024 End: 07-18-2024 Patient encounter procedure 07/18/2024 2:30 PM EST Routine [facility] [address] [place] [id number] Scooby Vega, DO [address] [place] [address] [facility] Start: 07-18-2024 End: 07-18-2025 US biophysical profile w non stress test US biophysical profile w non stress test Imaging Routine 30 weeks gestation of Third trimester Expected: 07/18/2024 (Approximate), Expires: 07/18/2025 [facility] Work Phone: Comment on above: Expected: 07/18/2024 (Approximate), Expires: 07/18/2025 Start: 06-30-2024 End: 06-30-2025 US biophysical profile w non stress test US biophysical profile w non stress test Imaging Routine Gestational diabetes mellitus (GDM), antepartum, gestational diabetes method of control unspecified Expected: 06/30/2024 (Approximate), Expires: 06/30/2025 [facility] Comment on above: Expected: 06/30/2024 (Approximate), Expires: 06/30/2025 Start: 06-30-2024 End: 06-30-2025 US for US OB follow up transabdominal approach Imaging Routine Gestational diabetes mellitus (GDM), antepartum, gestational diabetes method of control unspecified Expected: 06/30/2024, Expires: 06/30/2025 [facility] Work Phone: Comment on above: Expected: 06/30/2024 , Expires: 06/30/2025 Start: 06-30-2024 End: 06-30-2024 Patient encounter procedure 06/30/2024 11:50 AM EST Routine [facility] [address] [place] [address] Scooby Vega, DO [address] [place] [address] [facility] Start: 06-25-2024 Urine culture [facility] Start: 06-25-2024 Bacteria identified in Urine by Culture Urine Culture [facility] Start: 06-02-2024 End: 06-02-2025 CBC panel - Blood by Automated count CBC Lab Routine Diabetes mellitus screening Expected: 06/02/2024 (Approximate), Expires: 06/02/2025 [facility] Work Phone: Comment on above: Expected: 06/02/2024 (Approximate), Expires: 06/02/2025 Start: 06-02-2024 End: 06-02-2025 Measurement of glucose 1 hour after glucose challenge for glucose tolerance test Glucose tolerance, 1 hour Lab Routine Diabetes mellitus screening Expected: 06/02/2024 (Approximate), Expires: 06/02/2025 [facility] Comment on above: Expected: 06/02/2024 (Approximate), Expires: 06/02/2025 Start: 06-02-2024 End: 06-02-2024 Patient encounter procedure 06/02/2024 10:10 AM EST Routine [facility] [address] [facility] [place] [address] Scooby Vega, DO [address] [place] [address] [facility] Start: 05-27-2024 End: 05-27-2024 Patient encounter procedure [facility] Start: 05-02-2024 End: 05-02-2024 Patient encounter procedure 05/02/2024 3:30 PM EST Routine [facility] [address] [facility] [place] [phone] Emely Hunter PA [address] [place] [address] [facility] Start: 05-02-2024 End: 10-30-2024 [...] 04/26/2024 11:00 AM EST Office Visit [facility] OB [address] [place] [address] Scooby Vega DO [address] [facility] [place] [address] [facility] Start: 04-04-2024 End: 04-04-2024 Patient encounter procedure [facility] Comment on above: Arrived Start: 04-04-2024 End: 10-03-2024 Alpha fetoprotein, maternal Alpha fetoprotein, maternal Lab Routine Second trimester Screening, , for anatomic survey Expected: 04/04/2024 (Approximate), Expires: 10/03/2024 [facility] Work Phone: Comment on above: Expected: 04/04/2024 (Approximate), Expires: 10/03/2024 Start: 04-01-2024 End: 04-01-2024 ambulatory 04/01/2024 1:30 PM EDT Treatment [facility] [address] [facility] [address] [place] [address] Gretchen Moreno, PT [facility] Start: 03-23-2024 End: 03-23-2024 ambulatory 03/23/2024 1:00 PM EDT Treatment [facility] [address] [facility] [address] [place] [address] Gretchen Moreno, PT [facility] Start: 03-18-2024 End: 03-18-2024 ambulatory 03/18/2024 1:30 PM EDT Treatment [facility] [address] [facility] [address] [place] [address] Gretchen Moreno, PT [facility] Start: 03-11-2024 End: 03-11-2024 ambulatory 03/11/2024 1:30 PM EDT Treatment [facility] [address] [facility] [address] [place] [address] Gretchen Moreno, PT [facility] Start: 03-07-2024 End: 03-07-2024 Patient encounter procedure 03/07/2024 10:10 AM EDT Routine [facility] [address] [place] [address] Scooby Vega, DO [address] [facility] [place] [address] [facility] Start: 03-03-2024 End: 03-03-2024 ambulatory 03/03/2024 10:30 AM EDT Treatment [facility] [address] [facility] [address] [place] [address] Gretchen Moreno, PT [facility] Start: 02-26-2024 End: 02-26-2024 ambulatory 02/26/2024 1:30 PM EDT Treatment [facility] [address] [facility] [address] [place] [address] Gretchen Moreno, PT Arrived [facility] Comment on above: Arrived Start: 02-25-2024 End: 02-25-2024 ambulatory 02/25/2024 10:30 AM EDT Treatment [facility] [address] [facility] [address] [place] [address] Gretchen Moreno, PT [facility] Start: 02-21-2024 Influenza vaccination Influenza Vacc ine [facility] Start: 02-17-2024 End: 02-17-2024 ambulatory 02/17/2024 12:00 PM EDT Treatment [facility] [address] [place] [address] Gretchen Moreno, PT [facility] Start: [...] Initial [facility] [address] [place] [address] [facility] Start: 02-12-2024 End: 02-12-2024 Professional / ancillary services management 02/12/2024 10:00 AM EDT Ancillary Procedure [facility] [address] [place] [phone] [facility] Start: 02-10-2024 End: 02-10-2024 ambulatory 02/10/2024 5:00 PM EDT Evaluation [facility] [address] [address] [place] [address] Gretchen Moreno, PT Arrived [facility] Comment on above: Arrived Start: 12-10-2008 Screening for malign ant neoplasm of cervix Pap Smear [facility] Start: 12-10-2006 DTaP,Tdap and Td Vaccines (1 - Tdap) DTaP,Tdap and Td Vaccines (1 - Tdap) [facility] Start: 1999 Depression Screening Depression Scre ening [facility] Start: 1999 Tobacco Screening Tobacco Screening [facility] Bacteria identified in Urine by Culture Urine culture Microbiology Routine Missed menses Ordered: 02/12/2024 [facility] Comment on above: Ordered: 02/12/2024 CBC W Auto Different ial panel - Blood CBC and differential Lab Routine Missed menses Ordered: 02/12/2024 [facility] Comment on above: Ordered: 02/12/2024 CHLAMYDIA TRACHOMATI S (GENITO/STI) CHLAMYDIA TRACHOMATIS (GENITO/STI) Lab Routine STD exposure Ordered: 05/02/2024 [facility] Comment on above: Ordered: 05/02/2024 Cytology Cervical or vaginal smear or scraping study Pap Smear Pathology and Cytology Routine Well woman exam with routine gynecological exam Ordered: 05/02/2024 [facility] Comment on above: Ordered: 05/02/2024 Hemoglobin A1c/Hemoglobin.total in Blood Hemoglobin A1c Lab Routine Missed menses Ordered: 02/12/2024 [facility] Comment on above: Ordered: 02/12/2024 Hepatitis B virus surface Ag [Presence] in Serum or Plasma by Immunoassay Hepatitis B surface antigen Lab Routine Missed menses Ordered: 02/12/2024 [facility] Comment on above: Ordered: 02/12/2024 Hepatitis C virus Ab [Presence] in Serum or Plasma by Immunoassay Hepatitis C antibody Lab Routine Missed menses Ordered: 02/12/2024 [facility] Comment on above: Ordered: 02/12/2024 HIV-1/HIV-2 antigen/antibody combination immunoassay HIV-1 and HIV-2 antibodies Lab Routine Missed menses Ordered: 02/12/2024 [facility] Comment on above: Ordered: 02/12/2024 Human papilloma viru s DNA [Presence] in Unspecified specimen by Probe with amplification HPV DNA probe, amplified Microbiology Routine Well woman exam with routine gynecological exam Ordered: 05/02/2024 [facility] Comment on above: Ordered: 05/02/2024 Neisseria gonorrhoea e DNA [Presence] in Unspecified specimen by JUAN ANTONIO with probe detection Neisseria gonorrhea DNA probe, direct Lab Routine STD exposure Ordered: 05/02/2024 [facility] Comment on above: Ordered: 05/02/2024 Reagin Ab [Presence] in Serum by RPR RPR Lab Routine Missed menses Ordered: 02/12/2024 [facility] Comment on above: Ordered: 02/12/2024 Rubella antibody, IgG Rubella an tibody, IgG Lab Routine Missed menses Ordered: 02/12/2024 [facility] Comment on above: Ordered: 02/12/2024 SURESWAB(R) ADVANCED VAGINITIS PLUS, TMA SURESWAB(R) ADVANCED VAGINITIS PLUS, TMA Pathology and Cytology Routine Vaginal discharge Ordered: 05/02/2024 [facility] Work Phone: Comment on above: Ordered: 05/02/2024 XR Hip - left 2 Views [facility] Payers Date Payer Category Payer Commercial Managed C are - POS [employer] [id number] 2022 Private Health Insurance [id number] 2022 Unknown NILAM JORGENSEN [id number] 2022-Present [phone] [id number] [place] [id number] [id number] 1987 Unknown [id number] 2.16.840.1.365113.3.579. 2.593 1987 Unknown [id number] 2.16.840.1.106233.3.579. 2.593 1987 Unknown [id number] 2.16.840.1.227622.3.579. 2.1285 1987 Unknown [id number] 2.16.840.1.790708.3.579. 2.1285 1987 Unknown [id number] 2.16.840.1.710666.3.579. 2.1285 1987 Unknown [id number] 2.16.840.1.237902.3.579. 2.1258 1987 Unknown [id number] 2.16.840.1.593793.3.579. 2.1258 1987 Unknown [id number] 2.16.840.1.647009.3.579. 2.1258 1987 Unknown [id number] 2.16.840.1.751241.3.579. 2.1258 1987 Unknown [id number] 2.16.840.1.211745.3.579. 2.1258 1987 Unknown [id number] 2.16.840.1.852978.3.579. 2.1258 1987 Unknown [id number] 2.16.840.1.524381.3.579. 2.1258 1987 Unknown [id number] 2.16.840.1.424502.3.579. 2.1258 1987 Unknown [id number] 2.16.840.1.493806.3.579. 2.12581988 Unknown [id number] 2.16.840.1.528693.3.579. 2.1258 1987 Unknown [id number] 2.16.840.1.915700.3.579. 2.1258 1987 Unknown [id number] 2.16.840.1.992450.3.579. 2.1258 1987 Unknown [id number] 2.16.840.1.226688.3.579. 2.1258 1987 Unknown [id number] 2.16.840.1.425411.3.579. 2.1258 1987 Unknown [id number] 2.16.840.1.400847.3.579. 2.1258 1987 Unknown [id number] 2.16.840.1.034015.3.579. 2.9 1959 Unknown [id number] Social History Date Type Detail Facility Tobacco smoking stat us [facility] Unknown if ever smoked [facility] Work Phone: Start: 1985 Sex Assigned At Female [facility] Start: 02-26-2023 End: 04-04-2024 Tobacco smoking status [facility] Never smoked tobacco [facility] Start: 11-09-2023 End: 05-27-2024 History of [address] [facility] Start: 11-09-2023 End: 05-27-[address] [facility] Start: 01-01-2024 [facility] Start: 1987 Sex assigned at Not on file [facility] Start: 04-04-2024 Tobacco use and exposure Smokeless tobacco non-user [facility] Start: 04-04-2024 End: 05-27-2024 Alcoholic beverage intake Ex-drinker (finding) [facility] Childcare Unknown [facility] Start: 12-30-2023 Gender identity Identifies as female gender (finding) [facility] Start: 12-30-2023 Sexual orientation Heterosexual (finding) [facility] Start: 01-25-2015 End: 06-27-2024 Sex Female (finding) [facility] Tobacco smoking stat [facility] Unknown if ever smoked [facility] Work Phone: Medical Equipment Procedure Code Equipment Code Equipment Origin al Text Equipment Identifier Dates 1 strip by In Vi tro route Daily Use in the morning prior to breakfast, 1 hour after each meal for a total of 4times daily. [id number] Start: 06-02-2024 End: 07-02-2024 1 each by In Vit ro route Daily Use to check FSBS four times daily [id number] Start: 06-02-2024 End: 07-02-2024 Goals Date Patient [...] nursing note reviewed. Exam conducted with a chief medical officer present. Vitals: Estimated body mass index is [...] of:Emely Hunter PA-C documented in this encounter [facility] 06-30-2024 History of Present illness Narrative [...] 81 mg, Daily Blood Glucose Monitoring Suppl ([employer]-GILUPI Glucometer) w/Device kit 1 kit, Does not [...] Scooby Vega DO documented in this encounter [facility] 06-02-2024 History of Present illness Narrative [...] nursing note reviewed. Exam conducted with a chief medical officer present. Vitals: Estimated body mass index is [...] Scooby Vega DO documented in this encounter [facility] 05-27-2024 History of Present illness Narrative [...] TESTS AND ULTRASOUND REPORTS: Referral records and [facility] chart were reviewed Pertinent Ultrasound findings are [...] preeclampsia prevention as is recommended by the [employer] Committee Opinion No. 743. [...] patient is in complete care of her shaft mechanic. Thank you for allowing me to participate in the care of Tiffanie Elizabeth. If there any questions please do not hesitate to contact us. Gracie Ramsey MD Maternal- Medicine [place] [id number] [facility] [address] [place] [address] [facility], the CDC, and other organizations representing maternal and public health professionals recommend that , , and lactating people and those considering receive the COVID-19 vaccination. Vaccination is the best method to reduce maternal and complications of SARS-CoV-2 infection. This document was created with ffk environment technology. Though I make every effort to review the dictation as it is transcribed, on occasion the spoken word can be misinterpreted by the technology leading to inappropriate words, phrases, or sentences. This note is addressed to the requesting provider as a consultation for clinical guidance. Specific medical abbreviations are occasionally used and those are generally approved by the [place]?Board of?Obstetrics and?Gynecology?as well as?Cali aparicio abbreviations. The above plan of care was based solely on the diagnoses for which a consultation was requested. ?More frequent testing may be indicated based on her other medical/obstetrical conditions. The management of other or medical conditions is beyond the scope of requested consultation and will continue to be followed by the primary shaft mechanic or primary care provider. Note to patient: [...] yes Have you been seen here at [facility] in a previous ? N/a Recent ER visits or hospitalizations? no Bring blood sugar log or meter with you today? (Please bring them with you for every visit at [facility]) n/a Flu vaccine (Apr-August)? no Any concerns that you would like me to mention to the provider today? no documented in this encounter [facility] 05-02-2024 History of Present illness Narrative Reason [...] nursing note reviewed. Exam conducted with a chief medical officer present. Vitals: Estimated body mass index is [...] without difficulty and patient was given [facility] order to have obtained. Orders Placed [...] of: JORDYN Fonseca documented in this encounter [facility] 04-04-2024 History of Present illness Narrative [...] nursing note reviewed. Exam conducted with a chief medical officer present. Vitals: Estimated body mass index is [...] Aspirin. Discussed again in regards to seeing [facility] & referral will be completed. Patient to have NST/BPP starting at 32 weeks gestation. Patient will have Anatomy Scan done at [facility]. Patient is Rh Negative and will [...] Scooby Vega DO documented in this encounter [facility] 04-04-2024 History of Present illness Narrative [...] with this plan. documented in this encounter [facility] 04-01-2024 History of Present illness Narrative [...] and it pops a lot randomly. Precautions: [place] Subjective: Pt states overall, ROM has improved. [...] to be instructed in home exercise program. 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 Date: documented in this encounter [facility] 03-23-2024 History of Present illness Narrative [...] and it pops a lot randomly. Precautions: [place] Subjective: Pt states range of motion of [...] to be instructed in home exercise program. 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 Date: documented in this encounter [facility] 03-18-2024 History of Present illness Narrative [...] and it pops a lot randomly. Precautions: [place] Subjective: Pt states she feels like her [...] to be instructed in home exercise program. [facility] Goals: To be met in 10 weeks [...] sign below. Date: documented in this encounter [facility] 03-11-2024 History of Present illness Narrative [...] and it pops a lot randomly. Precautions: [place] Subjective: Pt states overall she believes hip [...] to be instructed in home exercise program. [facility] Goals: To be met in 10 weeks [...] sign below. Date: documented in this encounter [facility] 03-07-2024 History of Present illness Narrative [...] nursing note reviewed. Exam conducted with a chief medical officer present. Vitals: Estimated body mass index is [...] or undercooked meat, and [facility]. Patient has been consulted regarding any further do's and don'ts of . Patient voiced understanding and all questions and concerns were answered. Follow Up: Patient is to return in 4 weeks for routine OB appointment. Documented by Kalie Loera LPN on behalf of: Scooby Vega DO documented in this encounter [facility] 03-03-2024 History of Present illness Narrative [...] and it pops a lot randomly. Precautions: [place] Subjective: Pt states she has been doing [...] to be instructed in home exercise program. [facility] Goals: To be met in 10 weeks [...] sign below. Date: documented in this encounter [facility] 02-26-2024 History of Present illness Narrative [...] and it pops a lot randomly. Precautions: [place] Subjective: Pt states she was able to [...] to be instructed in home exercise program. [facility] Goals: To be met in 10 weeks [...] sign below. Date: documented in this encounter [facility] 02-17-2024 History of Present illness Narrative [...] and it pops a lot randomly. Precautions: [place] Subjective: Pt states she has not done [...] to be instructed in home exercise program. [facility] Goals: To be met in 10 weeks [...] sign below. Date: documented in this encounter [facility] 02-12-2024 History of Present illness Narrative [...] or undercooked meat, and stay away from [facility]. Patient has also been advised to not [...] Estee Cobb LPN documented in this encounter [facility] 02-10-2024 History of Present illness Narrative [...] and it pops a lot randomly. Precautions: [place] Subjective: left hip ant and lateral Pain: [...] to be instructed in home exercise program. [facility] Goals: To be met in 10 weeks [...] sign below. Date: documented in this encounter [facility] Evaluation note No assessment inform ation available [facility] Work Phone: Evaluation note Diagnosis Onset Date Left hip pain acute [facility] Work Phone: Evaluation note* Diagnosis Pain of left hip- Primary Hip flexor tendinitis, left documented in [facility] Diagnosis Pain of left hip- Primary Hip flexor tendinitis, left documented in this encounter [facility]* Diagnosis Femoroacetabular impingement of left hip- Primary [facility] Diagnosis Second trimester state, incidental [...] weeks gestation of [facility] Diagnosis Pain of left [...] encounter [facility] HealthcareInstructionsNot on filedocumented in this [facility] System[facility]ructionsNot on filedocumented in this encounterProMedinj [facility] SystemInstructionsNot on filedocumented in [facility] Summary Purpose Family History [...] CREATED AUTHOR AUTHOR'S ORGANIZ ATION 07/03/2024 [facility] DATE CREATED AUTHOR AUTHOR'S ORGANIZ ATION 07/19/2024 [facility] EPIC Care Teams (unrecognized sec [...] Provider Active Start: October 23, 2023 Scooby Veag Attending Provider Active Start: 2023 Team Status: [...] December 01, 2023 End: December 01, 2023 [employer] Relationship Specialty Start Date End Date Jen Granados MD [address] [facility] [place] [phone] PCP - General Family Medicine 03/10/23 [employer] Relationship Specialty Start Date End Date Jen Granados MD [address] [facility] [place] [address] PCP - General Family Medicine 03/10/23 [employer] Relationship Specialty Start Date End Date Jen Granados MD [address] [facility] [place] [address] PCP - General Family Medicine 03/10/23 Editor [employer] Relationship Specialty Start Date End Date Jen Granados MD [address] [place] [address] PCP - General Family Medicine 03/10/23 Editor [employer] Relationship Specialty [place] [address] [place] [address], [facility] PCP - General 02/03/24 Editor [employer] Relationship Specialty Start Date End Date Jen Granados MD [address] [place] [address] PCP - General Family Medicine 03/10/23 Editor [employer] Relationship Specialty Start Date End Date Jen Granados MD [address] [facility], [facility] PCP - General 02/03/24 Editor [employer] Relationship Specialty Start Date End Date Jen Granados MD [address] [place] [address] PCP - General Family Medicine 03/10/23 Editor [employer] Relationship Specialty Start Date End Date Jen Granados MD [address] [facility] [place] [address] PCP - General Family Medicine 03/10/23 Editor [employer] Relationship Specialty Start Date End Date Jen Granados MD [address] [facility] [place] [address] PCP - General Family Medicine 03/10/23 Editor [employer] Relationship Specialty Start Date End Date Jen Granados MD [address] [place] [address] PCP - General 02/03/24 [employer] Relationship Specialty Start Date End Date Jen Granados MD [address] [facility] [address] PCP - General Family Medicine 03/10/23 [employer] Relationship Specialty Start Date End Date Jen Granados MD [address] [facility] [place] [address] PCP - General Family Medicine 03/10/23 Editor [employer] Relationship Specialty Start Date End Date Jen Granados MD [address] [place] [address] PCP - General Family Medicine 03/10/23 [employer] Relationship Specialty Start Date End Date Jen Granados MD [address] [facility] [address] PCP - General Family Medicine 03/10/23 Editor [employer] Relationship Specialty Start Date End Date Jen Granados MD [address] [facility] [address] PCP - General Family Medicine 03/10/23 [employer] Relationship Specialty Start Date End Date Jen Granados MD [address] [facility] [place] [address] PCP - General Family Medicine 03/10/23 Editor [employer] Relationship Specialty Start Date End Date Jen Granados MD [address] [facility] [address] PCP - General Family Medicine 03/10/23 [...] June 25, 2024 End: June 25, 2024 Editor [employer] Relationship Specialty Start Date End Date Jen Granados MD [address] [facility] [place] [address] PCP - General Family Medicine 03/10/23 Editor [employer] Relationship Specialty Start Date End Date Jen Granados MD [address] [facility] [address] PCP - General Family Medicine 03/10/23 Editor [employer] Relationship Specialty Start Date End Date Jen Granados MD [address] [facility] [place] [address] PCP - General Family Medicine 03/10/23 Editor [employer] Journal Relationship Specialty Start Date End Date Jen Granados MD [address] [facility] [place] [address] PCP - General Family Medicine 03/10/23 Goals [...] of left lower limb, excluding foot Procedures DE PHYSICAL THERAPY EVALUATION LOW COMPLEX 20 MINS Ashley Shin MD [address] [place] [address] Gretchen Moreno PT Referral ID Status Reason Start Date Expiration Date V isits Requested Visits Authorized [id number] Authorized 02/10/2024 08/08/2024 99 99 Reason Comments [...] BE BASED ON THE PRIMARY CLINICAL RECORDS. [employer] [facility] provides no warranty or guarantee of the accuracy or completeness of information in this document.
--- NOTE | 2024-07-29 19:01 | US_ITS ---
[address] [address] Patient Name: RAPHAEL GAMA MRN: [id number] date: 1985 Sex: F Assigned Patient Location: [facility] Current Patient Location: Accession/Order Number: [id number] Exam Date: 07/29/2024 19:04 Report Date: 08/01/2024 07:11 At the request of: BEVERLY SAHA Procedure: US OB BPP w non-stress EXAMINATION: US OB BPP w non-stress HISTORY: GDM COMPARISON: No relevant comparison available. TECHNIQUE: Ultrasound biophysical profile was performed in the radiology department. non-reactive stress testing was performed by nursing staff in the birthing center. FINDINGS: BREATHING MOVEMENTS: 2 GROSS BODY MOVEMENTS: 2 TONE: 2 QUALITATIVE AMNIOTIC FLUID VOLUME: 2 PRESENTATION: CEPHALIC HEART RATE: 134.33 bpm AMNIOTIC FLUID VOLUME: 10.4 cm GESTATIONAL AGE: 32 weeks 0 days US/US OB BPP w non-stress IMPRESSION: Total biophysical profile score: 8 Electronically authenticated by: TIKA KIMBALL Date: 08/01/2024 07:11
[2024-07-29 19:26] VITALS: BP 111/58; PULSE 83
== END 2024-07-29 19:50 | disposition home or self-care (01) ==
LOC: US 01:55 → FBC 18:59
PROVIDERS: PCP Family Medicine; Visit Provider Obstetrics & Gynecology
DX: O24.419 Gestational diabetes mellitus in pregnancy, unspecified control (principal); Z3A.32 32 weeks gestation of pregnancy
CPT/HCPCS: 59025; 76818

== ENCOUNTER 2024-08-02 18:04 | Outpatient (OUT) | payer OTHER, SELFPAY ==
--- OUTSIDE RECORDS SUMMARY | 2024-08-02 18:07 | XMS_ITS | CCD ---
Author Organization [facility] Care Team Providers Care Damper Maker Name Role Phone DOREEN, DR HOFFMAN Attending Unavailable DARWIN, DR JEN Ramirez Primary Care Unavailable DOREEN, DR HOFFMAN Admitting Unavailable DOREEN, DR HOFFMAN Consulting Unavailable GARY, DR PAUL Admitting Unavailable GARY, DR PAUL Consulting Unavailable GARY, DR PAUL Attending Unavailable DARWIN, DR JEN Ramirez Primary Care Unavailable Scooby Vega Attending Provider Jen Granados MD Primary Care Provider KALEB SHINIL Joes Attending Unavailable JEN GRANADOS Referring Unavailable JEN GRANADOS Primary Care Unavailable ASHLEY SHIN K Attending Unavailable JEN GRANADOS Referring Unavailable JEN GRANADOS Primary Care Unavailable Jen Granados MD Primary Care Provider Jen Granados MD Primary Care Provider [phone] Jae Cervantes DO Attending Provider Unavailab Jae [...] Drug Allergy 3 GI intolerance, GI Disturbance [facility] (3 sources) 12 Hour Decongestant Allergy to substance 3 Hives [facility] Medications Current Medications Medication Drug Class(es) [...] Glucose Monitoring Suppl (D-Care Glucometer) w/Device kit (10 sources) Start: 06-02-2024 End: 06-02-2025 Blood Glucose [...] (Other) isopropyl alcohol 0.7 ml/ml medicated pad (10 sources) Start: 06-02-2024 Alcohol Swabs (Alcohol Prep [...] 02/12/2024 Discontinued (Other) omega-3 acid ethyl esters (care home) 1000 mg oral capsule (1 source) take [...] (1 source) New Patient Onset: 02-08-2024 Unclassified (16 sources) OB Reminders Onset: 05-02-2024 05-02-2024 Past [...] Test Name Value Interpretation Reference Range Facility OB BPP W NON-STRESS on 08-01-2024 [place] [address] Ultrasound Report Signed Patient: RAPHAEL ELIZABETH MR#: [id number] : 1985 Acct:[id number] Age/Sex: 38 / F ADM Date: 07/29/24 Loc: US Attending Dr: Scooby Vega D.O. Ordering Physician: Scooby Vega D.O. Date of Service: 07/29/24 Procedure(s): US OB BPP w non-stress Accession Number(s): [id number] cc: Jen Granados M.D.; Scooby Vega D.O. [facility] [place] [id number] Patient Name: RAPHAEL ELIZABETH MRN: [facility]:[id number] date: 1985 Sex: F Assigned Patient Location: [facility] Current Patient Location: Accession/Order Number: [id number] Exam Date: 07/29/2024 19:04 Report Date: 08/01/2024 07:11 At the request of: SCOOBY VEGA Procedure: US OB BPP w non-stress EXAMINATION: US OB BPP w non-stress HISTORY: GDM COMPARISON: No relevant comparison available. TECHNIQUE: Ultrasound biophysical profile was performed in the radiology department. non-reactive stress testing was performed by nursing staff in the birthing center. FINDINGS: BREATHING MOVEMENTS: 2 GROSS BODY MOVEMENTS: 2 TONE: 2 QUALITATIVE AMNIOTIC FLUID VOLUME: 2 PRESENTATION: CEPHALIC HEART RATE: 134.33 bpm AMNIOTIC FLUID VOLUME: 10.4 cm GESTATIONAL AGE: 32 weeks 0 days US/US OB BPP w non-stress IMPRESSION: Total biophysical profile score: 8 Electronically authenticated by: TIKA KIMBALL Date: 08/01/2024 07:11 Dictated By: Tika Kimball M.D. Signed By: 08/01/24713 DD/ 0 TD/TT: Photographic Colorist: [facility] Radiology, Radiologdora guillen MD - 08/01/2024 [place] [address] Ultrasound Report Signed Patient: RAPHAEL ELIZABETH MR#: [id number] : 1985 Acct:[id number] Age/Sex: 38 / F ADM Date: 07/29/24 Loc: US Attending Dr: Scooby eVga D.O. Ordering Physician: Scooby Vega D.O. Date of Service: 07/29/24 Procedure(s): US OB BPP w non-stress Accession Number(s): [id number] cc: Jen Granados M.D.; Scooby Vega D.O. [address] [address] Patient Name: RAPHAEL ELIZABETH MRN: [facility]:[id number] date: 1985 Sex: F Assigned Patient Location: [facility] Current Patient Location: Accession/Order Number: [id number] Exam Date: 07/29/2024 19:04 Report Date: 08/01/2024 07:11 At the request of: SCOOBY VEGA Procedure: US OB BPP w non-stress EXAMINATION: US OB BPP w non-stress HISTORY: GDM COMPARISON: No relevant comparison available. TECHNIQUE: Ultrasound biophysical profile was performed in the radiology department. non-reactive stress testing was performed by nursing staff in the birthing center. FINDINGS: BREATHING MOVEMENTS: 2 GROSS BODY MOVEMENTS: 2 TONE: 2 QUALITATIVE AMNIOTIC FLUID VOLUME: 2 PRESENTATION: CEPHALIC HEART RATE: 134.33 bpm AMNIOTIC FLUID VOLUME: 10.4 cm GESTATIONAL AGE: 32 weeks 0 days US/US OB BPP w non-stress IMPRESSION: Total biophysical profile score: 8 Electronically authenticated by: TIKA KIMBALL Date: 08/01/2024 07:11 Dictated By: Tika Kimball M.D. Signed By: 08/01/24713 DD/ 0 TD/TT: Photographic Colorist: [facility] Radiology Study observation (narrative) [facility] US OB BPP W NON-STRESS Ordered By: Radiologist Radiology on 08-01-2024 [facility] Work Phone: Urinalysis macro (dipstick) panel (U)on 07-18-2024 Bilirubin, UA Negative Negative - 4(70) +++ mg/dL [facility] Blood, UA Negative Negative - 50 Ulisse/mcL [facility] Clarity, UA Clear [facility] Color, UA Yellow [facility] Glucose, UA Negative Negative - 2000(110) ++++ mg/dL [facility] Interpretation and review of laboratory results Normal [facility] Ketones, UA Negative Negative - 160(16) ++++ mg/dL [facility] Leukocytes, UA Negative Negative - 500+++ Clair/mcL [facility] Nitrite, UA Negative Negative - Positive [facility] pH, UA 7 5 - 9 [facility] Protein, UA Negative Negative - 1999(20) ++++ mg/dL [facility] Spec Grav, UA 1.025 1 - 1.03 [facility] Urobilinogen, UA 0.2 0.2 - 12 mg/dL [facility] ALL CBC WITH AUTO DIFFon BASOPHILS ABSOLUTE AUTO 0 [facility] Basophils/100 WBC (Bld) 0.2 % 0.2 - 2.0 % [facility] Eosinophils/100 WBC (Bld) 0.9 % 0.9 - 7.0 % [facility] Erythrocyte distribution width (RBC) [Ratio] 13 % 11.0 - 15.0 % [facility] Hematocrit (Bld) [Volume fraction] 32.2 % Low 36.0 - 48.0 % [facility] Hemoglobin (Bld) [Mass/Vol] 10.9 g/dL Low 12.0 - 16.0 g/dL [facility] IMMATURE GRANULOCYTES ABS AUTO 0.13 High [facility] Immature granulocytes/100 WBC (Bld) 1.4 % High 0.0 - 0.5 % [facility] Interpretation and review of laboratory results Abnormal [facility] LYMPHOCYTES ABSOLUTE AUTO 1.4 [facility] Lymphocytes/100 WBC (Bld) 15.4 % Low 20.5 - 60.0 % [facility] MCH (RBC) [Entitic mass] 32.7 pg 26.7 - 34.0 pg [facility] MCHC (RBC) [Mass/Vol] 33.9 g/dL 29.9 - 35.2 g/dL [facility] MCV (RBC) [Entitic vol] 96.7 fL 81.0 - 99.0 fL [facility] MONOCYTES ABSOLUTE AUTO 0.5 [facility] Monocytes/100 WBC (Bld) 4.8 % 1.7 - 12.0 % [facility] NEUTROPHILS ABSOLUTE AUTO 7.2 High [facility] Neutrophils/100 WBC (Bld) 77.3 % High 43.0 - 75.0 % [facility] Platelet mean volume (Bld) [Entitic vol] 9.2 fL Low 9.5 - 13.5 fL [facility] TBH EO # 0.1 [facility] TBH PLT 229 [facility] TB RBC 3.33 Low [facility] TBH WBC 9.3 [facility] Urinalysis macro (dipstick) panel (U)on 06-30-2024 Bilirubin, UA Negative Negative - 4(70) +++ mg/dL [facility] Blood, UA Negative Negative - 50 Ulises/mcL [facility] Clarity, UA Clear [facility] Color, UA Yellow [facility] Glucose, UA Negative Negative - 2000(110) ++++ mg/dL [facility] Interpretation and review of laboratory results Abnormal [facility] Ketones, UA Negative Negative - 160(16) ++++ mg/dL [facility] Leukocytes, UA Trace Negative - 500+++ Clair/mcL [facility] Nitrite, UA Negative Negative - Positive [facility] pH, UA 8.5 5 - 9 [facility] Protein, UA Positive Negative - 2000(20) ++++ mg/dL [facility] Comment on above: trace Spec Grav, UA 1.015 1 - 1.03 [facility] Urobilinogen, UA 0.2 0.2 - 12 mg/dL [facility] Basophils/100 WBC Manual cnt (Bld)on 06-25-2024 Basophils/100 WBC (Bld) Basophils/100 leukocytes in Blood by Manual count Low 0.2-2.0 [facility] Eosinophils/100 WBC Manual c nt (Bld)on 06-25-2024 Eosinophils/100 WBC (Bld) Eosinophils/100 leukocytes in Blood by Manual count 0.9-7.0 [facility] Erythrocyte distribution wid th Auto (RBC) [Ratio]on 06-25-2024 Erythrocyte distribution width (RBC) [Ratio] Erythrocyte distribution width [Ratio] by Automated count 11.0-15.0 [facility] Estimated glomerular filtrat ion rate (GFR) non- Americanon 06-25-2024 GFR/1.73 sq M.predicted among non-blacks MDRD (S/P/Bld) [Vol rate/Area] Estimated glomerular filtration rate (GFR) non- >=60 mL/min/1.73 m 2 [facility] Hematocrit Auto (Bld) [Volum e fraction]on 06-25-2024 Hematocrit (Bld) [Volume fraction] Hematocrit [Volume Fraction] of Blood by Automated count Low 36.0-48.0 [facility] Hemoglobin [Mass/volume] in Bloodon 06-25-2024 Hemoglobin (Bld) [Mass/Vol] Hemoglobin [Mass/volume] in Blood Low 12.0-16.0 [facility] Laboratory - Chemistry and C hemistry - challengeon 06-25-2024 Calcium [Mass/Vol] 8.2 mg/dL Low 8.5-10.1 [facility] Chloride [Moles/Vol] 99 mmol/L 98-107 [facility] CO2 [Moles/Vol] 21.2 mmol/L 21.0-32.0 [facility] Creatinine [Mass/Vol] 0.89 mg/dL 0.55-1.02 [facility] GFR/1.73 sq M.predicted MDRD (S/P/Bld) [Vol rate/Area] mL/min/{1.73_m2} >=60 mL/min/1.73 m 2 [facility] Glucose [Mass/Vol] 98 mg/dL 74-106 [facility] Potassium [Moles/Vol] 3.7 mmol/L 3.5-5.1 [facility] Sodium [Moles/Vol] 130 mmol/L Low 136-145 [facility] Urea nitrogen [Mass/Vol] 7.0 mg/dL 7.0-18.0 [facility] Urea nitrogen/Creatinine [Mass ratio] 7.9 mg/mg [facility] Bilirubin Ql (U) Negative NEGATIVE [facility] Glucose (U) [Mass/Vol] Negative NEGATIVE [facility] Ketones Ql (U) 15 mg/dL Abnormal NEGATIVE [facility] pH (U) 7.5 [pH] 5.0-9.0 [facility] Specific gravity (U) [Rel density] 1.015 1.005-1.025 [facility] Urobilinogen Qn (U) 1.0 {Ree'U}/dL 0.2-1.0 [facility] Laboratory - Hematology and Cell countson 06-25-2024 Band form neutrophils/100 WBC (Bld) 2.0 % 0-5 [facility] Lymphocytes/100 WBC (Bld) 2.0 % Low 20.5-60.0 [facility] Monocytes/100 WBC (Bld) 5.0 % 1.7-12.0 [facility] Laboratory - Microbiology an d Antimicrobial susceptibilityon 06-25-2024 SARS-CoV-2 (COVID-19) RNA JUAN ANTONIO+probe Ql (Unsp spec) Negative NEGATIVE [facility] Comment on above: This test has [...] ationon 06-25-2024 Appearance (U) CLOUDY Abnormal CLEAR [facility] Color (U) DK YELLOW YELLOW [facility] Laboratory - Urinalysison Leukocyte esterase Test strip Ql (U) Negative NEGATIVE [facility] Nitrite Ql (U) Negative NEGATIVE [facility] Protein Ql (U) TRACE mg/dL NEG/TRACE [facility] Leukocytes [#/volume] correc leroy for nucleated erythrocytes in Blood by Automated counon 06-25-2024 WBC corrected for nucl RBC Auto (Bld) [#/Vol] Leukocytes [#/volume] corrected for nucleated erythrocytes in Blood by Automated coun 4.0-11.0 [facility] MCH Auto (RBC) [Entitic mass ]on 06-25-2024 MCH (RBC) [Entitic mass] MCH [Entitic mass] by Automated count 26.7-34.0 [facility] MCHC Auto (RBC) [Mass/Vol]on 06-25-2024 MCHC (RBC) [Mass/Vol] MCHC [Mass/volume] by Automated count 29.9-35.2 [facility] MCV Auto (RBC) [Entitic vol] on 06-25-2024 MCV (RBC) [Entitic vol] MCV [Entitic volume] by Automated count 81.0-99.0 [facility] No Panel Informationon 06-25 Absolute Basophils (Manual) 0.00 10 3/uL 0.00-0.10 [facility] Band Neutrophils # (Manual) 0.2 10 3/uL 0.0-0.3 [facility] Eosinophils # (Manual) 0.08 10 3/uL 0.00-0.70 [facility] Lymphocytes # (Manual) 0.16 10 3/uL Low 1.20-3.80 [facility] Monocytes # (Manual) 0.41 10 3/uL 0.30-0.80 [facility] Segmented Neutrophils # (Manual) 7.38 10 3/uL High 1.4-6.5 [facility] Urine Occult Blood Negative NEGATIVE [facility] Bedside Influenza Type A Antigen Positive Abnormal [facility] Comment on above: NOTE: Live attenuate d influenza vaccine viruses can cause apositive result for a rapid influenza diagnostic test ifadministered up to 7 days prior to rapid testing. Bedside Influenza Type B Antigen Negative [facility] Comment on above: Negative for Flu B p rotein antigen. Infection due to Flu Bcannot be ruled out. Flu B antigen in the sample may bebelow the detection limit of the test. Platelet mean volume Auto (B ld) [Entitic vol]on 06-25-2024 Platelet mean volume (Bld) [Entitic vol] Platelet mean volume [Entitic volume] in Blood by Automated count Low 9.5-13.5 [facility] Platelets Auto (Bld) [#/Vol] on 06-25-2024 Platelets (Bld) [#/Vol] Platelets [#/volume] in Blood by Automated count 150-450 [facility] RBC Auto (Bld) [#/Vol]on RBC (Bld) [#/Vol] Erythrocytes [#/volu me] in Blood by Automated count Low 4.20-5.40 [facility] Segmented neutrophils/100 WB C Manual cnt (Bld)on 06-25-2024 Segmented neutrophils/100 WBC (Bld) Manual blood segmented neutrophils/100 leukocytes High 43.0-75.0 [facility] Serum or plasma anion gap de terminationon 06-25-2024 Anion gap [Moles/Vol] Serum or plasma anion gap determination [facility] Urine Cultureon 06-25-2024 Bacteria identified Cx Nom (U) No Growth 2 Days PERFORMED BY: [facility] [address] [place] [address] PATHOLOGIST CAPTAIN ROOM SERVICE DANTE PALACIOS M.D. Normal [facility] Comment on above: Performed By: #### C UU #### [facility] [address] IGP,APTIMA HPV,AGE GDLNon AGE GDLN ACOG TESTING Note . [facility] Comment on above: TESTS RESULT FLAG UN ITS REF RANGE LAB Clinician Provided Cytology Information Source.............Cervix No. of containers..01 ThinPrep Vial Age Algo ACOG Annel... 30-65 01 FLAG LEGEND: L-Low Normal,H-High Normal,LL-Alert Low,HH-Alert High <-Panic Low,>-Panic High,A-Abnormal,AA-Critical Abnormal Performed at: 01 =[facility] [address] [place] [address] Kathryn Maldonado MD, HPV APTIMA Negative Negative [facility] Comment on above: This nucleic acid am plification test detects fourteen high- risk HPV types (16,18,31,33,35,39,45,51,52,56,58,59,66,68) without differentiation. Performed at: = - [address] [id number] Lehr Loader: Kathryn Maldonado MD, Phone: [phone] Performed at: - [facility] [id number] Lehr Loader: Kathryn Maldonado MD, Phone: [phone] IGP, APTIMA HPV, RFX 16/18,45 Note . [facility] Comment on above: TESTS RESULT FLAG UN ITS REF RANGE LAB DIAGNOSIS: 02 NEGATIVE FOR INTRAEPITHELIAL LESION OR MALIGNANCY. Specimen adequacy: 02 Satisfactory for evaluation. Endocervical and/or squamous metaplastic cells (endocervical component) are present. Performed by: Elidia Shankar, Mortgage Originator . 02 Note: Note 02 The Pap [...] Low,>-Panic High,A-Abnormal,AA-Critical Abnormal Performed at: [address] [address] Kathryn Maldonado MD, BRUSH-SPATULA CERVIX [facility] RECURRENT VAGINITIS (HTRX)on 05-05-2024 ATOPOBIUM VAGINAE 0 [facility] ATOPOBIUM VAGINAE Not detected [facility] BVAB 2,3 (BACTERIAL VAGINOSIS ASSOCIATED BACTERIA 2, 3); MOBILUNCUS SPP 0 [facility] BVAB 2,3 (BACTERIAL VAGINOSIS ASSOCIATED BACTERIA 2, 3); MOBILUNCUS SPP Not detected [facility] JED ALBICANS, PARAPSILOSIS, TROPICALIS 0 [facility] JED ALBICANS, PARAPSILOSIS, TROPICALIS Not detected [facility] JED GLABRATA 0 [facility] JED GLABRATA Not detected [facility] JED KRUSEI 0 [facility] JED KRUSEI Not detected [facility] CHLAMYDIA TRACHOMATIS 0 [facility] CHLAMYDIA TRACHOMATIS Not detected [facility] GARDNERELLA VAGINALIS 0 [facility] GARDNERELLA VAGINALIS Not detected [facility] MEGASPHAERA (TYPES 1, 2) 0 [facility] MEGASPHAERA (TYPES 1, 2) Not detected [facility] MYCOPLASMA GENITALIUM 0 [facility] MYCOPLASMA GENITALIUM Not detected [facility] NEISSERIA GONORRHOEAE 0 [facility] NEISSERIA GONORRHOEAE Not detected [facility] TRICHOMONAS VAGINALIS 0 [facility] TRICHOMONAS VAGINALIS Not detected [facility] Urinalysis macro (dipstick) panel (U)on 05-03-2024 Bilirubin, UA Negative Negative - 4(70) +++ mg/dL [facility] Blood, UA Negative Negative - 50 Ulises/mcL [facility] Clarity, UA Clear [facility] Color, UA Yellow [facility] Glucose, UA Negative Negative - 2000(110) ++++ mg/dL [facility] Interpretation and review of laboratory results Normal [facility] Ketones, UA Negative Negative - 160(16) ++++ mg/dL [facility] Leukocytes, UA Negative Negative - 500+++ Clair/mcL [facility] Nitrite, UA Negative Negative - Positive [facility] pH, UA 0.5 5 - 9 [facility] Protein, UA Negative Negative - 1999(20) ++++ mg/dL [facility] Spec Grav, UA 1.025 1 - 1.03 [facility] Urobilinogen, UA 1.0 0.2 - 12 mg/dL [facility] Human papilloma virus 16+18+ 31+33+35+39+45+51+52+56+58+59+66+68 DNA [Presence] in Denis 05-02-2024 HPV 16+18+31+33+35+39+4 5+51+52+56+58+59+66 +68 DNA Probe+sig amp Ql (Cvx) Human papilloma virus 16+18+31+33+35+39+45+51+52+5 6+58+59+66+68 DNA [Presence] in Cer Negative [facility] Comment on above: This nucleic acid am plification test detects fourteen high- risk HPV types (16,18,31,33,35,39,45,51,52,56,58,59,66,68)without differentiation.Performed at: = - [facility] [id number] Director: Kathryn Maldonado MD, Phone: [phone] at: [facility] [address] [id number] Director: Kathryn Maldonado MD, Phone: [phone] No Panel Informationon 05-02 HPV High Risk Other Comment Note . [facility] Comment on above: TESTS RESULT FLAG UN ITS REF RANGE LAB JESE GNOSIS: 02 NEGATIVE FOR INTRAEPITHELIAL LESION OR MALIGNANCY.Specimen adequacy: 02 Satisfactory for evaluation. Endocervical and/or squamous metaplastic cells (endocervical component) are present.Performed by: 02 Thao Shankar Mortgage Originator. 02Note: Note 02 The Pap smear is [...] Low,>-Panic High,A-Abnormal,AA-Critical Abnormal --Performed at:02 WB [facility] [address] [place] [address] Kathryn Maldonado MD, Reference Lab Test Patient Age Note . [facility] Comment on above: TESTS RESULT FLAG UN ITS REF RANGE LAB Clinician Provided Cytology Information Source.............Cervix No. of containers..01 ThinPrep Svitlana Up... FLAG LEGEND: L-Low Normal,H-High Normal,LL-Alert Low,HH-Alert High <-Panic Low,>-Panic High,A-Abnormal,AA-Critical Abnormal --Performed at:01 =G [address] [place] [address] Kathryn Maldonado MD, AFP, SERUM, OPEN SPINA BIFID Aon 05-01-2024 AFP MOM 1.18 . [facility] AFP VALUE 61.8 ng/mL . [facility] COMMENT: Comment . [facility] Comment on above: Cydney Rodriguez , Ph.D., [facility] Director References: Available Upon Request. Multiples Of Median Cutoffs For AFP Elevations Chiang 2.5 Black 2.8 IDD 2.0 Twins 4.5 Abbreviation Definitions IDD - Insulin Dep Diabetes OSBR - Open Spina Bifida Risk For further inquiries contact [facility] at [phone]. This test was developed and its performance characteristics determined by [facility]. It has not been cleared or approved by the Food and Drug Administration. Performed at: [facility] [place], [place] [id number] Lehr Loader: Marissa Kovacs [facility], Phone: [phone] GEST. AGE ON COLLECTION DATE 19.0 . weeks [facility] GESTAT. AGE BASED ON LMP . [facility] Comment on above: Recalculations are n ot recommended when gestational dating by LMP and ultrasound are within 10 days. INSULIN DEP DIABETES No . [facility] INTERPRETATION Comment . [facility] Comment on above: Interpretation: Scre en Negative [...] Customer Services to discuss available options. The [place] [employer] recommends amniocentesis be offered to women age 35 and older. [age] [facility] MULTIPLE GESTATION No . [facility] OSBR RISK 1 IN 6916 . [facility] RACE . [facility] RESULTS Report . [facility] TEST RESULTS: Negative . [facility] WEIGHT 135 . lbs [facility] N N LMP [id number] 3 15 N 1 Y 135 N N N N N White/ [facility] Alpha-fetoprotein (AFP) paige urement (nffmwzmk-zj-kefkkh)on 04-29-2024 AFP [MoM] Alpha-fetoprotein (A FP) measurement (lcypuqbn-fo-ihudzp) . [facility] Assess gestational ageon Gestational age Assess gestational age . [facility] Estimation of maternal age-s pecific risk of Down syndrome birthon 04-29-2024 Age [Time] Estimation of matern al age-specific risk of Down syndrome . [facility] Insulin dependent diabetes m ellitus detectionon 04-29-2024 Insulin dependent diabetes mellitus Ql Insulin dependent diabetes mellitus detection . [facility] Interpretation of serum or p lasma second trimester quad maternal screen (narrative reon 04-29-2024 Second trimester quad maternal screen Darshan [Interp] Interpretation of serum or plasma second trimester quad maternal screen (narrative re . [facility] Comment on above: Interpretation: Scre en [...] 04-29 AFP Triple Screen Comment Comment . [facility] Comment on above: Cydney Rodriguez , Ph.D., DABCCDirectorReferences: Available Upon Request.Multiples Of Median Cutoffs For AFP ElevationsSingleton 2.5 Black 2.8IDD 2.0 Twins 4.5 Abbreviation DefinitionsIDD - Insulin Dep DiabetesOSBR - Open Spina Bifida RiskFor further inquiries contact [facility] at [phone].This test was developed and its performance characteristicsdetermined by [facility]. It has not been cleared or approvedby the Food and Drug Administration.Performed at: [facility] [id number] [facility], [place], [place] [id number] Director: Marissa Kovacs [facility], Phone: [phone] Alpha Fetoprotein Results Received Report . [facility] Gestational Age Calculation Method LMP . [facility] Comment on above: Recalculations are n ot recommended when gestational datingby LMP and ultrasound are within 10 days. Maternal Quad Test Risk 6916 . [facility] Maternal Race . [facility] Multiple No . [facility] Serum or plasma vnrlw-0-ygyk protein measurement (mass/volume)on 04-29-2024 AFP [Mass/Vol] Serum or plasma jxbls-8-smclkukjtcu measurement (mass/volume) . [facility] BOX TEST SENT OUTon BOX TEST SENT OUT Y [facility] UN[facility] BOX [facility] ALL CBC WITH AUTO DIFFon BASOPHILS ABSOLUTE AUTO 0.0 [facility] Basophils/100 WBC (Bld) 0.5 % 0.2 - 2.0 % [facility] Eosinophils/100 WBC (Bld) 0.9 % 0.9 - 7.0 % [facility] Erythrocyte distribution width (RBC) [Ratio] 11.9 % 11.0 - 15.0 % [facility] IMMATURE GRANULOCYTES ABS AUTO 0.02 [facility] Immature granulocytes/100 WBC (Bld) 0.3 % 0.0 - 0.5 % [facility] Interpretation and review of laboratory results Abnormal [facility] LYMPHOCYTES ABSOLUTE AUTO 1.8 [facility] Lymphocytes/100 WBC (Bld) 27.4 % 20.5 - 60.0 % [facility] MCH (RBC) [Entitic mass] 32.2 pg 26.7 - 34.0 pg [facility] MCHC (RBC) [Mass/Vol] 34.0 g/dL 29.9 - 35.2 g/dL [facility] MCV (RBC) [Entitic vol] 94.4 fL 81.0 - 99.0 fL [facility] MONOCYTES ABSOLUTE AUTO 0.3 [facility] Monocytes/100 WBC (Bld) 5.1 % 1.7 - 12.0 % [facility] NEUTROPHILS ABSOLUTE AUTO 4.4 [facility] Neutrophils/100 WBC (Bld) 65.8 % 43.0 - 75.0 % [facility] Platelet mean volume (Bld) [Entitic vol] 9.4 fL Low 9.5 - 13.5 fL [facility] TBH EO # 0.1 [facility] TB PLT 215 [facility] RBC 3.95 Low [facility] WBC 6.6 [facility] CBC without diffon Rbc Mcv (Fl) By Automated Count 94.4 [facility] Drug Screen, Urineon 024 Amphetamine/Methamp hetamine Negative [facility] Barbiturate Screen Urine Negative [facility] Benzodiazepine Screen, Urine Negative [facility] Cocaine Metabolite Negative [facility] Mdma Negative [facility] Methadone,Meconium Negative [facility] Opiate Quantitative Urine Negative [facility] Oxycodone Negative [facility] Phencyclidine Negative [facility] Thc Marijuana, Urine Negative [facility] Laboratory - Hematology and Cell countson 02-16-2024 Hematocrit (Bld) [Volume fraction] 37.3 % [facility] Hemoglobin (Bld) [Mass/Vol] 12.7 g/dL [facility] No Panel Informationon 02-15 [facility] Rubella IGG immune statuson 02-16-2024 Rubella immune IgG 3.94 [facility] Syphilis Total(Unknown Syphi lis Status)on 02-16-2024 Syphilis Non-Reactive [facility] HCG ( test) Ql (U)o n 02-12-2024 Interpretation and review of laboratory results Abnormal [facility] Preg Test, Ur Positive [facility] Urinalysis macro (dipstick) panel (U)on 02-12-2024 Bilirubin, UA Negative Negative - 4(70) +++ mg/dL [facility] Blood, UA Negative Negative - 50 Ulises/mcL [facility] Clarity, UA Clear [facility] Color, UA Yellow [facility] Glucose, UA Negative Negative - 2000(110) ++++ mg/dL [facility] Interpretation and review of laboratory results Normal [facility] Ketones, UA Negative Negative - 160(16) ++++ mg/dL [facility] Leukocytes, UA Negative Negative - 500+++ Clair/mcL [facility] Nitrite, UA Negative Negative - Positive [facility] pH, UA 6.5 5 - 9 [facility] Protein, UA Negative Negative - 2000(20) ++++ mg/dL [facility] Spec Grav, UA 1.015 1 - 1.03 [facility] Urobilinogen, UA 1.0 0.2 - 12 mg/dL [facility] No Panel Informationon 11-29 Human Chorionic Gonadotropin, Quant 2 mIU/mL [facility] Comment on above: 5-50 0.2-1 UNHU16-04 0 1-2 RMZEM706-4,000 2-3 OSPBW496-77,000 3-4 WEEKS1,000-50,000 4-5 WEEKS10,000-100,000 5-6 WEEKS15,000-200,000 6-8 WEEKS10,000-100,000 2-3 MONTHS No Panel Informationon 11-22 Human Chorionic Gonadotropin, Quant 3 mIU/mL [facility] Comment on above: 5-50 0.2-1 JFZO93-56 0 1-2 VQKAF868-4,000 2-3 QPKFV130-99,000 3-4 WEEKS1,000-50,000 4-5 WEEKS10,000-100,000 5-6 WEEKS15,000-200,000 6-8 WEEKS10,000-100,000 2-3 MONTHS No Panel Informationon 11-16 Human Chorionic Gonadotropin, Quant 6 mIU/mL [facility] Comment on above: 5-50 0.2-1 PTBV06-71 0 1-2 RYPPI244-4,000 2-3 GFUFW606-07,000 3-4 WEEKS1,000-50,000 4-5 WEEKS10,000-100,000 5-6 WEEKS15,000-200,000 6-8 WEEKS10,000-100,000 2-3 MONTHS No Panel Informationon 11-08 Human Chorionic Gonadotropin, Quant 27 mIU/mL [facility] Comment on above: 5-50 0.2-1 KSSE75-86 0 1-2 JZETG734-2,000 2-3 OXAEB268-86,000 3-4 WEEKS1,000-50,000 4-5 WEEKS10,000-100,000 5-6 WEEKS15,000-200,000 6-8 WEEKS10,000-100,000 2-3 MONTHS Basophils Auto (Bld) [#/Vol] on 10-23-2023 Basophils (Bld) [#/Vol] 0.0 10 3/uL 0.0-0.1 [facility] Basophils/100 WBC Auto (Bld) on 10-23-2023 Basophils/100 WBC (Bld) 0.8 % 0.2-2.0 [facility] Eosinophils/100 WBC Auto (Bl d)on 10-23-2023 Eosinophils/100 WBC (Bld) 1.4 % 0.9-7.0 [facility] Erythrocyte distribution wid th Auto (RBC) [Ratio]on 10-23-2023 Erythrocyte distribution width (RBC) [Ratio] 11.9 % 11.0-15.0 [facility] Hematocrit Auto (Bld) [Volum e fraction]on 10-23-2023 Hematocrit (Bld) [Volume fraction] 36.0 % 36.0-48.0 [facility] Hemoglobin [Mass/volume] in Bloodon 10-23-2023 Hemoglobin (Bld) [Mass/Vol] 11.8 g/dL 12.0-16.0 [facility] Krzysztof 10-23-2023 L Specimen: [id number] eceived: 10/26/23 [facility] [id number] Spec Type: Surgical Subm Dr: Scooby Vega Tissues: A Products of Conception - Spontaneous or Missed (POC) Procedures: HE/3, Gross/Micro L4 Age/ Patient Sex Location Account Attending Physician Raphael Elizabeth 37/F LABELL [id number] Scooby Vega SPEC NUM: [id number] RECD: 10/26/23 STATUS: RINAShayy NEWELL NUM: [id number] JANIE: 10/23/23-[address]: Scooby Vega ENTERED: 10/26/[address]: Héctor,Lab SPEC [...] cm possible area of villous tissue identified. School Operations Manager sections to include the possible villous tissue are submitted in A1?A3. Clinical history: Missed CPT Codes 79877 -------- -------- Specimen: [id number] Received: 10/26/23 Status: MAIA Newell Num: [id number] Spec Type: Surgical Subm Dr: Scooby Vega Tissues: A Products of Conception - Spontaneous or Missed (POC) Procedures: /, Gross/Micro L4 -------- Patient: Raphael Elizabeth [id number] (Continued) -------- Signed (signature on file) Dante Palacios MD 10/27/23 1511 Normal [facility] Laboratory - Hematology and Cell countson 10-23-2023 Immature granulocytes/100 WBC (Bld) 0.2 % 0.0-0.5 [facility] Leukocytes [#/volume] correc leroy for nucleated erythrocytes in Blood by Automated counon 10-23-2023 WBC corrected for nucl RBC Auto (Bld) [#/Vol] 5.1 10 3/uL 4.0-11.0 [facility] Lymphocytes Auto (Bld) [#/Vo l]on 10-23-2023 Lymphocytes (Bld) [#/Vol] 1.7 10 3/uL 1.2-3.8 [facility] Lymphocytes/100 WBC Auto (Bl d)on 10-23-2023 Lymphocytes/100 WBC (Bld) 32.8 % 20.5-60.0 [facility] MCH Auto (RBC) [Entitic mass ]on 10-23-2023 MCH (RBC) [Entitic mass] 31.1 pg 26.7-34.0 [facility] MCHC Auto (RBC) [Mass/Vol]on 10-23-2023 MCHC (RBC) [Mass/Vol] 32.8 g/dL 29.9-35.2 [facility] MCV Auto (RBC) [Entitic vol] on 10-23-2023 MCV (RBC) [Entitic vol] 95.0 fL 81.0-99.0 [facility] Monocytes Auto (Bld) [#/Vol] on 10-23-2023 Monocytes (Bld) [#/Vol] 0.3 10 3/uL 0.3-0.8 [facility] Monocytes/100 WBC Auto (Bld) on 10-23-2023 Monocytes/100 WBC (Bld) 5.5 % 1.7-12.0 [facility] Neutrophils Auto (Bld) [#/Vo l]on 10-23-2023 Neutrophils (Bld) [#/Vol] 3.0 10 3/uL 1.4-6.5 [facility] Neutrophils/100 WBC Auto (Bl d)on 10-23-2023 Neutrophils/100 WBC (Bld) 59.3 % 43.0-75.0 [facility] No Panel Informationon 10-22 Eosinophils # (Auto) 0.1 10 3/uL 0.0-0.7 [facility] Immature Granulocyte # (Auto) 0.01 10 3/uL 0.00-0.03 [facility] Platelet mean volume Auto (B ld) [Entitic vol]on 10-23-2023 Platelet mean volume (Bld) [Entitic vol] 9.0 fL 9.5-13.5 [facility] Platelets Auto (Bld) [#/Vol] on 10-23-2023 Platelets (Bld) [#/Vol] 182 10 3/uL 150-450 [facility] RBC Auto (Bld) [#/Vol]on RBC (Bld) [#/Vol] 3.79 10 6/uL 4.20-5.40 [facility] No Panel Informationon 10-11 Human Chorionic Gonadotropin, Quant 87396 mIU/mL [facility] Comment on above: 5-50 0.2-1 UFSD25-05 0 1-2 BWTCX856-6,000 2-3 VPVAH419-15,000 3-4 WEEKS1,000-50,000 4-5 WEEKS10,000-100,000 5-6 WEEKS15,000-200,000 6-8 WEEKS10,000-100,000 2-3 MONTHS No Panel Informationon 10-06 Human Chorionic Gonadotropin, Quant 83312 mIU/mL [facility] Comment on above: 5-50 0.2-1 UKYN41-32 0 1-2 PIZGA087-2,000 2-3 SSPUF332-30,000 3-4 WEEKS1,000-50,000 4-5 WEEKS10,000-100,000 5-6 WEEKS15,000-200,000 6-8 WEEKS10,000-100,000 2-3 MONTHS No Panel Informationon 10-04 Human Chorionic Gonadotropin, Quant 47594 mIU/mL [facility] Comment on above: 5-50 0.2-1 ZUQG38-11 0 1-2 NTYCH221-3,000 2-3 WDPZJ177-80,000 3-4 WEEKS1,000-50,000 4-5 WEEKS10,000-100,000 5-6 WEEKS15,000-200,000 6-8 WEEKS10,000-100,000 2-3 MONTHS PAP ACOG PANEL 2: 30 to 65on 03-11-2022 . . Normal [facility] Comment on above: Result Comment: Perf ormed at: WB Performed By: #### [id number] #### [facility] [address] [place] [address] Dr. Danni Jacobs Age Gdln ACOG Testing 30-65 Normal [facility] Comment on above: Performed By: #### [id number] #### [facility] [address] [place] [address] Dr. Danni Jacobs DIAGNOSIS: Comment Normal [facility] Comment on above: Result Comment: NEGA TIVE FOR INTRAEPITHELIAL LESION OR MALIGNANCY. THIS SPECIMEN WAS RESCREENED PART OF OUR STATIONARY STEAM ENGINEER PROGRAM. Performed at: WB Performed By: #### [id number] #### [facility] [address] [place] [address] Dr. Danni Jacobs HPV Aptima Negative Normal Negative [facility] Comment on above: Result Comment: This nucleic acid amplification test detects fourteen high-risk HPV types (16,18,31,33,35,39,45,51,52,56,58,59,66,68) without differentiation. Performed at: =G Performed By: #### [id number] #### [facility] [address] [place] [address] Dr. Danni Jacobs Methodology: Comment Normal [facility] Comment on above: Result Comment: This liquid based ThinPrep(R) pap test was screened with the use of an image guided system. Performed at: WB Performed By: #### [id number] #### [facility] [address] [place] [address] Dr. Danni Jacobs Note: Comment Normal [facility] Comment on above: Result Comment: The Pap smear is a screening test designed to aid in the detection of premalignant and malignant conditions of the uterine cervix. It is not a diagnostic procedure and should not be used as the sole means of detecting cervical cancer. Both false-positive and false-negative reports do occur. . Performed at: WB Performed By: #### [id number] #### [facility] [address] [address] [address] Danni Jacobs Performed by: Comment Normal [facility] Comment on above: Result Comment: Rocky Hull, Mortgage Originator (ASCP) Performed at: WB Performed By: #### [id number] #### [facility] [address] [address] [address] Danni Jacobs QC reviewed by: Comment Normal [facility] Comment on above: Result Comment: Betzaida Ge, Supervisory Mortgage Originator (ASCP) Performed at: WB Performed By: #### [id number] #### [facility] [address] [place] [address] Dr. Danni Jacobs Specimen adequacy: Comment Normal [facility] Comment on above: Result Comment: Sati sfactory for evaluation. Endocervical and/or squamous metaplastic cells (endocervical component) are present. Performed at: WB Performed By: #### [id number] #### [facility] [address] [place] [address] Dr. Danni Jacobs GLUCOSE BLOODon 04-22-2021 Glucose [Mass/Vol] 99 mg/dL Normal 74-106 [facility] Comment on above: Performed By: #### G YOSEPH, LIPID #### [facility] [address] [place] [address] Dr. Danni Jacobs LIPID PROFILEon 04-22-2021 CHOL-HDL RATIO NORM SEE BELOW Normal [facility] Comment on above: Result Comment: 3.3 - 4.4 LOW RISK 4.4 - 7.1 AVERAGE RISK 7.1 - 11.0 MODERATE RISK >11.0 HIGH RISK Performed By: #### G YOSEPH, LIPID #### [facility] [address] [address] [address] Danni Jacosb Cholesterol [Mass/Vol] 157 mg/dL Normal <=200 [facility] Comment on above: Performed By: #### G YOSEPH, LIPID #### [facility] [address] [address] [address] Danni Jacobs Cholesterol in HDL [Mass/Vol] 74 mg/dL Normal [facility] Comment on above: Performed By: #### G YOSEPH, LIPID #### [facility] [address] [address] [address] Danni Jacobs Cholesterol in LDL [Mass/Vol] 71.2 mg/dL Normal [facility] Comment on above: Performed By: #### G YOSEPH, LIPID #### [facility] [address] [address] [address] Danni Jacobs Cholesterol.total/C holesterol in HDL [Mass ratio] 2.1 {ratio} Normal [facility] Comment on above: Performed By: #### G YOSEPH, LIPID #### [facility] [address] [address] [address] Danni Jacobs HDL NORMAL > or = 60 mg/dl - LO W CARDIOVASCULAR RISK <40 mg/dl - HIGH CARDIOVASCULAR RISK Normal [facility] Comment on above: Performed By: #### G YOSEPH, LIPID #### [facility] [address] [address] [address] Danni Jacobs LDL CALC NORMAL SEE BELOW Normal [facility] Comment on above: Result Comment: <100 mg/dl OPTIMAL 100 - 129 mg/dl NEAR OR ABOVE OPTIMAL 130 - 159 mg/dl BORDERLINE HIGH 160 - 189 mg/dl HIGH >190 mg/dl VERY HIGH Performed By: #### G YOSEPH, LIPID #### [facility] [address] [address] [address] Danni Jacobs Triglyceride [Mass/Vol] 59 mg/dL Normal <=150 [facility] Comment on above: Performed By: #### G YOSEPH, LIPID #### [facility] [address] [place], [place] [address] Dr. Danni Jacobs VLDL CALC 11.8 mg/dL Normal [facility] Comment on above: Performed By: #### G YOSEPH, LIPID #### [facility] [address] [place], [place] [address] Dr. Danni Jacobs Vital Signs Date Time Vital Sign Value Performing Clinician Faci lity 07-18-2024 15:05-0500 Body mass index (BMI) [Ratio] 22.84 kg/m2 Scooby Gary DO Work Phone: [facility] 07-18-2024 15:05-0500 Body weight 66.13 kg Scooby Gary DO Work Phone: [facility] 07-18-2024 15:05-0500 Diastolic blood pressure 70 mm[Hg] Scooby Gary DO Work Phone: [facility] 07-18-2024 15:05-0500 Systolic blood pressure 118 mm[Hg] Scooby Gary DO Work Phone: [facility] 06-30-2024 12:01-0500 Body mass index (BMI) [Ratio] 22.26 kg/m2 Scooby Gary DO Work Phone: [facility] 06-30-2024 12:01-0500 Body weight 64.47 kg Scooby Gary DO Work Phone: [facility] 06-30-2024 12:01-0500 Diastolic blood pressure 70 mm[Hg] Scooby Gary DO Work Phone: [facility] 06-30-2024 12:01-0500 Systolic blood pressure 110 mm[Hg] Scooby Gary DO Work Phone: [facility] 06-02-2024 10:45-0500 Body mass index (BMI) [Ratio] 21.9 kg/m2 Scooby Gary DO Work Phone: [facility] 06-02-2024 10:45-0500 Body weight 63.41 kg Scooby Gary DO Work Phone: [facility] 06-02-2024 10:45-0500 Diastolic blood pressure 72 mm[Hg] Scooby Gary DO Work Phone: [facility] 06-02-2024 10:45-0500 Systolic blood pressure 116 mm[Hg] Scooby Gary DO Work Phone: [facility] 05-27-2024 14:14-0500 Body height 170.2 cm Gracie Ramsey MD Work Phone: [facility] 05-27-2024 14:14-0500 Body mass index (BMI) [Ratio] 22.08 kg/m2 Gracie Ramsey MD Work Phone: [facility] 05-27-2024 14:14-0500 Body weight 63.96 kg Gracie Ramsey MD Work Phone: [facility] 05-27-2024 14:14-0500 Diastolic blood pressure 63 mm[Hg] Gracie Ramsey MD Work Phone: [facility] 05-27-2024 14:14-0500 Heart rate 83 /min Gracie Ramsey MD Work Phone: [facility] 05-27-2024 14:14-0500 Systolic blood pressure 110 mm[Hg] Gracie Ramsey MD Work Phone: [facility] 05-02-2024 16:20-0500 Body mass index (BMI) [Ratio] 21.61 kg/m2 Emely COBB Work Phone: [facility] 05-02-2024 16:20-0500 Body weight 62.6 kg Emely COBB Work Phone: [facility] 05-02-2024 16:20-0500 Diastolic blood pressure 68 mm[Hg] Emely COBB Work Phone: [facility] 05-02-2024 16:20-0500 Systolic blood pressure 120 mm[Hg] Emely COBB Work Phone: [facility] 04-29-2024 11:40-0500 Body weight Jen Granados MD Work Phone: [facility] 04-04-2024 14:55-0400 Body mass index (BMI) [Ratio] 21.27 kg/m2 Scooby Gary DO Work Phone: [facility] 04-04-2024 14:55-0400 Body weight 61.6 kg Scooby Gary DO Work Phone: [facility] 04-04-2024 14:55-0400 Diastolic blood pressure 70 mm[Hg] Scooby Gary DO Work Phone: [facility] 04-04-2024 14:55-0400 Systolic blood pressure 116 mm[Hg] Scooby Gary DO Work Phone: [facility] 04-04-2024 08:54-0400 Body height 170.2 cm Ashley Shin MD Work Phone: [facility] 04-04-2024 08:54-0400 Body mass index (BMI) [Ratio] 19.73 kg/m2 Ashley Shin MD Work Phone: [facility] 04-04-2024 08:54-0400 Body weight 57.15 kg Ashley Shin MD Work Phone: [facility] 03-07-2024 10:47-0400 Body mass index (BMI) [Ratio] 20.07 kg/m2 Scooby Gary DO Work Phone: [facility] 03-07-2024 10:47-0400 Body weight 58.12 kg Scooby Gary DO Work Phone: [facility] 03-07-2024 10:47-0400 Diastolic blood pressure 68 mm[Hg] Scooby Gary DO Work Phone: [facility] 03-07-2024 10:47-0400 Systolic blood pressure 114 mm[Hg] Scooby Gary DO Work Phone: [facility] 12-01-2023 16:10-0400 Body height 170.18 cm Scooby Gary Work Phone: [facility] 12-01-2023 16:10-0400 Body mass index (BMI) [Ratio] 19.5 kg/m2 Scooby Gary Work Phone: [facility] 12-01-2023 16:10-0400 Body weight 56.69 kg Scooby Gary Work Phone: [facility] 12-01-2023 16:10-0400 Diastolic blood pressure 78 mm[Hg] Scooby Gary Work Phone: [facility] 12-01-2023 16:10-0400 Systolic blood pressure 112 mm[Hg] Scooby Gary Work Phone: [facility] Encounters Encounter Date Encounter Type Care Provider Facility Start: 08-01-2024 End: 08-01-2024 Clinisync Result Encounter Scooby Gary DO Work Phone: [facility] External Department Unsolicited Start: 08-01-2024 End: 08-01-2024 Clinisync Result Encounter Scooby Gary DO Work Phone: [facility] Unsolicited Start: 07-18-2024 End: 07-18-2024 ambulatory SCOOBY GARY [...] 07-02-2024 End: 07-02-2024 Clinisync Result Encounter Scooby Gray DO Work Phone: [facility] External Department Unsolicited Start: 06-30-2024 End: 06-30-2024 Bamboo flowsheet Scooby Gary DO Work Phone: [facility] Start: 06-30-2024 End: 06-30-2024 Bamboo flowsheet Scooby Gary DO Work Phone: [facility] Start: 06-30-2024 End: 06-30-2024 ambulatory SCOOBY GARY Not Available Start: 06-30-2024 End: 06-30-2024 flow sheet Scooby Gary DO Work Phone: [facility] Comment on above: 27 weeks gestation o f ; Second trimester ; Gestational diabetes mellitus (GDM), antepartum, gestational diabetes method of control unspecified Start: 06-25-2024 End: 06-25-2024 ambulatory Jen Granados MD Work Phone: [facility] Work Phone: Start: 06-25-2024 End: 06-25-2024 Departed Referred Jen Granados MD Work Phone: [facility] Start: 06-25-2024 Non-patient / Non-visit Jen [facility]ados MD [facility] Work Phone: Start: 06-02-2024 End: 06-02-2024 Bamboo flowsheet Scooby Gary DO Work Phone: [facility] Start: 06-02-2024 End: 06-02-2024 Bamboo flowsheet Scooby Gary DO Work Phone: [facility] Start: 06-02-2024 End: 06-02-2024 ambulatory SCOOBY GARY Not Available Start: 06-02-2024 End: 06-02-2024 flow sheet Scooby Vega Work Phone: [facility] Comment on above: Second trimester pre gnancy; 23 weeks gestation of ; with normal glucose tolerance test (GTT); Diabetes mellitus screening; Gestational diabetes mellitus (GDM), antepartum, gestational diabetes method of control unspecified; Elevated glucose tolerance test Start: 05-27-2024 End: 05-27-2024 Office consultation new/estab patient 40 min Gracie Ramsey MD Work Phone: [facility] [place] Comment on above: Advanced maternal ag e, 1st , second trimester (Primary Dx); 23 weeks gestation of Start: 05-02-2024 Non-patient / Non-visit Jen Granados MD Work Phone: [facility] Work Phone: Start: 05-02-2024 End: 05-02-2024 ambulatory EMELY HUNTER Not Available Start: 05-02-2024 End: 05-02-2024 Patient encounter procedure Emely COBB Work Phone: [facility] Work Phone: Start: 05-02-2024 End: 05-02-2024 flow sheet Emely COBB Work Phone: [facility] Comment on above: Well woman exam with routine gynecological exam; Second trimester ; 19 weeks gestation of ; Vaginal discharge; STD exposure; Screening, , for anatomic survey Start: 05-02-2024 End: 05-02-2024 Bamboo flowsheet Emely COBB Work Phone: [facility] Start: 05-02-2024 End: 05-10-2024 Bamboo flowsheet Emely COBB Work Phone: [facility] Start: 05-02-2024 End: 05-10-2024 Clinisync Result Encounter Emely COBB Work Phone: [facility] External Department Unsolicited Start: 05-02-2024 End: 05-05-2024 External Result Encounter Emely COBB Work Phone: [facility] External [facility] Unsolicited Start: 04-29-2024 End: 05-01-2024 Clinisync Result Encounter Scooby Gary DO Work Phone: [facility] Unsolicited Start: 04-29-2024 End: 05-01-2024 Clinisync Result Encounter Scooby Gary DO Work Phone: [facility] External [facility] Unsolicited Start: 04-29-2024 Non-patient / Non-visit Jen Granados MD Work Phone: [facility] Work Phone: Start: 04-08-2024 End: 04-08-2024 Chart abstracting Scanning Provider External [facility] Start: 04-04-2024 End: 04-04-2024 flow sheet [...] Start: 04-04-2024 End: 04-04-2024 ambulatory ASHLEY SHIN [facility] Start: 04-04-2024 End: 04-04-2024 Office outpatient visit 15 minutes Ashley Shin MD Work Phone: [facility] Comment on above: [...] GA: 8w0d Start: 02-10-2024 End: 02-11-2024 ambulatory Gretchen Moreno PT [facility] Comment on above: Pain of left hip (Pr imary Dx); Hip flexor tendinitis, left Start: 02-10-2024 End: 02-10-2024 Bamboo flowsheet Gretchen Moreno PT [facility] Start: 02-10-2024 End: 02-10-2024 Bamboo flowsheet Gretchen Moreno PT [facility] Start: 02-08-2024 End: 02-08-2024 ambulatory [facility] Start: 02-08-2024 ambulatory [facility] Start: 12-01-2023 End: 12-01-2023 ambulatory Scooby Gary Work Phone: [facility] Work Phone: Start: 12-01-2023 End: 12-01-2023 Patient encounter procedure Scooby Gary Work Phone: [facility] Work Phone: Start: 11-30-2023 Non-patient / Non-visit Scooby Gary Work Phone: [facility] Work Phone: Start: 11-23-2023 Non-patient / Non-visit Scooby Gary Work Phone: [facility] Work Phone: Start: 11-17-2023 Non-patient / Non-visit Scooby Gary Work Phone: [facility] Work Phone: Start: 11-09-2023 Non-patient / Non-visit Scooby Gary Work Phone: [facility] Work Phone: Start: 11-09-2023 End: 11-09-2023 ambulatory EMELY HUNTER Not Available Start: 10-23-2023 End: 10-23-2023 ambulatory Scoobyvidal Vega [facility] Work Phone: Start: 10-23-2023 End: 10-23-2023 Departed Referred Scooby Gary Work Phone: [facility] Start: 10-23-2023 Non-patient / Non-visit Scooby Gary Work Phone: [facility] Work Phone: Start: 10-12-2023 Non-patient / Non-visit Scooby Gary Work Phone: [facility] Work Phone: Start: 10-07-2023 Non-patient / Non-visit Scooby Gary Work Phone: [facility] Work Phone: Start: 10-05-2023 Non-patient / Non-visit Scooby Gary Work Phone: [facility] Work Phone: Start: 03-03-2022 End: 03-03-[address] SCOOBY VEGA Facility:H1 Start: 04-28-2021 Encounter for genera l adult medical examination without abnormal findings DR DALTON LOGAN [facility] Start: 04-22-2021 End: 04-23-[address] DALTON LOGAN Facility:[facility]1 Start: 04-22-2021 End: 04-23-2021 Encounter for general adult medical examination without abnormal findings DR DALTON LOGAN Facility:[facility]1 Procedures Date Procedure Procedure Detail Performing Clinician Start: 08-01-2024 US OB BPP W NON-STRESS Scooby Gary DO Work Phone: Start: 07-18-2024 Urnls dip stick/tabl et rgnt [...] 02-26-2024 TB BOX TEST SENT OUT C orevidal Fragosoo DO Work Phone: Start: 02-16-2024 Blood count [...] malign ant neoplasm [facility]ix [facility] Start: 05-27-2025 Tobacco Screening Tobacco Screening [facility] Start: 04-04-2025 Adult BMI Screening Adult BMI Screen ing [facility] Start: 04-04-2025 Tobacco Screening Tobacco Screening [facility] Start: 02-07-2025 Adult BMI Screening Adult BMI Screen ing [facility] Start: 08-01-2024 End: 08-01-2024 Patient encounter procedure 08/01/2024 1:20 PM EST Routine [facility] [address] [facility] [place] [address] Scooby Vega, DO [address] [place] [address] [facility] Start: 07-18-2024 End: 07-18-2024 Patient encounter procedure 07/18/2024 2:30 PM EST Routine [facility] [address] [facility] [address] Scooby Vega, DO [address] [place] [address] [facility] Start: 07-18-2024 End: 07-18-2025 US biophysical profile w non stress test US biophysical profile w non stress test Imaging Routine 30 weeks gestation of Third trimester Expected: 07/18/2024 (Approximate), Expires: 07/18/2025 [facility] Work Phone: Comment on above: Expected: 07/18/2024 (Approximate), Expires: 07/18/2025 Start: 06-30-2024 End: 06-30-2025 US biophysical profile w non stress test US biophysical profile w non stress test Imaging Routine Gestational diabetes mellitus (GDM), antepartum, gestational diabetes method of control unspecified Expected: 06/30/2024 (Approximate), Expires: 06/30/2025 [facility] Comment on above: Expected: 06/30/2024 (Approximate), Expires: 06/30/2025 Start: 06-30-2024 End: 06-30-2025 US for US OB follow up transabdominal approach Imaging Routine Gestational diabetes mellitus (GDM), antepartum, gestational diabetes method of control unspecified Expected: 06/30/2024, Expires: 06/30/2025 [facility] Work Phone: Comment on above: Expected: 06/30/2024 , Expires: 06/30/2025 Start: 06-30-2024 End: 06-30-2024 Patient encounter procedure 06/30/2024 11:50 AM EST Routine [facility] [address] [facility] [place] [id number] Scooby Vega, DO [address] [place], [place] [id number] [facility] Start: 06-25-2024 Urine culture [facility] Start: 06-25-2024 Bacteria identified in Urine by Culture Urine Culture [facility] Start: 06-02-2024 End: 06-02-2025 CBC panel - Blood by Automated count CBC Lab Routine Diabetes mellitus screening Expected: 06/02/2024 (Approximate), Expires: 06/02/2025 [facility] Work Phone: Comment on above: Expected: 06/02/2024 (Approximate), Expires: 06/02/2025 Start: 06-02-2024 End: 06-02-2025 Measurement of glucose 1 hour after glucose challenge for glucose tolerance test Glucose tolerance, 1 hour Lab Routine Diabetes mellitus screening Expected: 06/02/2024 (Approximate), Expires: 06/02/2025 [facility] Comment on above: Expected: 06/02/2024 (Approximate), Expires: 06/02/2025 Start: 06-02-2024 End: 06-02-2024 Patient encounter procedure 06/02/2024 10:10 AM EST Routine [facility] [address] [facility] [place] [id number] Scooby Vega, DO [facility] [place] [address] [facility] Start: 05-27-2024 End: 05-27-2024 Patient encounter procedure [facility] [place] Start: 05-02-2024 End: 05-02-2024 Patient encounter procedure 05/02/2024 3:30 PM EST Routine [facility] [address] [facility] [place] [phone] Emely Hunter PA [address] [facility] [place] [address] [facility] Start: 05-02-2024 End: 10-30-2024 [...] EST Office Visit [facility] [address] [facility] [place] [phone] Scooby Vega DO [address] [facility] [place] [address] [facility] Start: 04-04-2024 End: 04-04-2024 [...] Treatment [facility] [address] [facility] [address] [place] [address] Gretchen Moreno, PT [facility] Start: 03-23-2024 End: 03-23-2024 ambulatory 03/23/2024 1:00 PM EDT Treatment [facility] [address] [facility] [address] [place] [address] Gretchen Moreno, PT [facility] Start: 03-18-2024 End: 03-18-2024 ambulatory 03/18/2024 1:30 PM EDT Treatment [facility] [address] [facility] [address] [place] [address] Gretchen Moreno, PT [facility] Start: 03-11-2024 End: 03-11-2024 ambulatory 03/11/2024 1:30 PM EDT Treatment [facility] [address] [facility] [address] [place] [address] Gretchen Moreno, PT [facility] Start: 03-07-2024 End: 03-07-2024 Patient encounter procedure 03/07/2024 10:10 AM EDT Routine [facility] [address] [place] [phone] Scooby Vega, DO [address] [facility] [place] [address] [facility] Start: 03-03-2024 End: 03-03-2024 ambulatory 03/03/2024 10:30 AM EDT Treatment [facility] [address] [facility] [address] [place] [address] Gretchen Moreno, PT [facility] Start: 02-26-2024 End: 02-26-2024 ambulatory 02/26/2024 1:30 PM EDT Treatment [facility] [address] [place] [address] [place] [address] Gretchen Moreno, PT Arrived [facility] Comment on above: Arrived Start: 02-25-2024 End: 02-25-2024 ambulatory 02/25/2024 10:30 AM EDT Treatment [facility] [address] [place] [address] [place] [address] Gretchen Moreno, PT [facility] Start: 02-21-2024 Influenza vaccination Influenza Vacc ine [facility] Start: 02-17-2024 End: 02-17-2024 ambulatory 02/17/2024 12:00 PM EDT Treatment [facility] [address] [place] [address] [place] [address] Gretchen Moreno, PT [facility] Start: 02-12-2024 End: 02-11-2025 ABO/Rh ABO/Rh Lab Routine Missed menses Expected: 02/12/2024 (Approximate), Expires: 02/11/2025 [facility] Comment on above: Expected: 02/12/2024 (Approximate), Expires: 02/11/2025 Start: 02-12-2024 End: 02-11-2025 Blood type and Indirect antibody screen panel - Blood Type and screen Lab Routine Missed menses Expected: 02/12/2024 (Approximate), Expires: 02/11/2025 [facility] Work Phone: Comment on above: Expected: 02/12/2024 (Approximate), Expires: 02/11/2025 Start: 02-12-2024 End: 02-11-2025 US Pelvis transvaginal US OB transvaginal Imaging Routine Missed menses Expected: 02/12/2024 (Approximate), Expires: 02/11/2025 [facility] Comment on above: Expected: 02/12/2024 (Approximate), Expires: 02/11/2025 Start: 02-12-2024 End: 02-12-2024 ambulatory 02/12/2024 10:30 AM EDT Initial [facility] [address] [facility] [place] [address] [facility] Start: 02-12-2024 End: 02-12-2024 Professional / ancillary services management 02/12/2024 10:00 AM EDT Ancillary Procedure [facility] [address] [facility] [place] [address] [facility] Start: 02-10-2024 End: 02-10-2024 ambulatory 02/10/2024 5:00 PM EDT Evaluation [facility] [address] [place] [address] [place] [address] Gretchen Moreno, PT Arrived [facility] Comment on above: Arrived Start: 12-10-2008 Screening for malign ant neoplasm of cervix Pap Smear [facility] Start: 12-10-2006 DTaP,Tdap and Td Vaccines (1 - Tdap) DTaP,Tdap and Td Vaccines (1 - Tdap) [facility] Start: 1999 Depression Screening Depression Scre ening [facility] Start: 1999 Tobacco Screening Tobacco Screening [facility] Bacteria identified in Urine by Culture Urine culture Microbiology Routine Missed menses Ordered: 02/12/2024 [facility] Comment on above: Ordered: 02/12/2024 CBC W Auto Different ial panel - Blood CBC and differential Lab Routine Missed menses Ordered: 02/12/2024 [facility] Comment on above: Ordered: 02/12/2024 CHLAMYDIA TRACHOMATI S (GENITO/STI) CHLAMYDIA TRACHOMATIS (GENITO/STI) Lab Routine STD exposure Ordered: 05/02/2024 [facility] Comment on above: Ordered: 05/02/2024 Cytology Cervical or vaginal smear or scraping study Pap Smear Pathology and Cytology Routine Well woman exam with routine gynecological exam Ordered: 05/02/2024 [facility] Comment on above: Ordered: 05/02/2024 Hemoglobin A1c/Hemoglobin.total in Blood Hemoglobin A1c Lab Routine Missed menses Ordered: 02/12/2024 [facility] Comment on above: Ordered: 02/12/2024 Hepatitis B virus surface Ag [Presence] in Serum or Plasma by Immunoassay Hepatitis B surface antigen Lab Routine Missed menses Ordered: 02/12/2024 [facility] Comment on above: Ordered: 02/12/2024 Hepatitis C virus Ab [Presence] in Serum or Plasma by Immunoassay Hepatitis C antibody Lab Routine Missed menses Ordered: 02/12/2024 [facility] Comment on above: Ordered: 02/12/2024 HIV-1/HIV-2 antigen/antibody combination immunoassay HIV-1 and HIV-2 antibodies Lab Routine Missed menses Ordered: 02/12/2024 [facility] Comment on above: Ordered: 02/12/2024 Human papilloma viru s DNA [Presence] in Unspecified specimen by Probe with amplification HPV DNA probe, amplified Microbiology Routine Well woman exam with routine gynecological exam Ordered: 05/02/2024 [facility] Comment on above: Ordered: 05/02/2024 Neisseria gonorrhoea e DNA [Presence] in Unspecified specimen by JUAN ANTONIO with probe detection Neisseria gonorrhea DNA probe, direct Lab Routine STD exposure Ordered: 05/02/2024 [facility] Comment on above: Ordered: 05/02/2024 Reagin Ab [Presence] in Serum by RPR RPR Lab Routine Missed menses Ordered: 02/12/2024 [facility] Comment on above: Ordered: 02/12/2024 Rubella antibody, IgG Rubella an tibody, IgG Lab Routine Missed menses Ordered: 02/12/2024 [facility] Comment on above: Ordered: 02/12/2024 SURESWAB(R) ADVANCED VAGINITIS PLUS, TMA SURESWAB(R) ADVANCED VAGINITIS PLUS, TMA Pathology and Cytology Routine Vaginal discharge Ordered: 05/02/2024 [facility] Work Phone: Comment on above: Ordered: 05/02/2024 XR Hip - left 2 Views [facility] Payers Date Payer Category Payer Commercial Managed C are - POS [employer] [id number] 2022 Private Health Insurance [id number] 2022 Unknown NILAM JORGENSEN [id number] 2022-Present [phone] [address] [place] [phone] [id number] 1987 Unknown [id number] 2.16.840.1.171999.3.579. 2.593 1987 Unknown [id number] 2.16.840.1.158624.3.579. 2.593 1987 Unknown [id number] 2.16.840.1.223601.3.579. 2.1285 1987 Unknown [id number] 2.16.840.1.769574.3.579. 2.1285 1987 Unknown [id number] 2.16.840.1.310065.3.579. 2.128 1987 Unknown [id number] 2.16.840.1.846074.3.579. 2.9 1987 Unknown [id number] 2.16.840.1.968479.3.579. 2.1259 1987 Unknown [id number] 2.16.840.1.803788.3.579. 2.1258 1987 Unknown [id number] 2.16.840.1.939817.3.579. 2.9 1987 Unknown [id number] 2.16.840.1.427031.3.579. 2.1258 1987 Unknown [id number] 2.16.840.1.227277.3.579. 2.1258 1987 Unknown [id number] 2.16.840.1.512234.3.579. 2.1258 1987 Unknown [id number] 2.16.840.1.823545.3.579. 2.1258 1987 Unknown [id number] 2.16.840.1.018853.3.579. 2.1258 1987 Unknown [id number] 2.16.840.1.160299.3.579. 2.1258 1987 Unknown [id number] 2.16.840.1.048943.3.579. 2.1258 1987 Unknown [id number] 2.16.840.1.759021.3.579. 2.1258 1987 Unknown [id number] 2.16.840.1.940249.3.579. 2.1258 1987 Unknown [id number] 2.16.840.1.352859.3.579. 2.1258 1987 Unknown [id number] 2.16.840.1.072579.3.579. 2.1258 1987 Unknown [id number] 2.16.840.1.021915.3.579. 2.1258 1959 Unknown [id number] Social History Date Type Detail Facility Tobacco smoking stat us [facility] Unknown if ever smoked [facility] Work Phone: Start: 1985 Sex Assigned At Female [facility] Start: 02-26-2023 End: 04-04-2024 Tobacco smoking status MEIS Never smoked tobacco [facility] Start: 11-09-2023 End: 05-27-2024 History of Social function [facility] Start: 11-09-2023 End: 05-27-2024 Tobacco use panel [facility] Start: 01-01-2024 [facility] Start: 1985 Sex assigned at Not on file [facility] Start: 04-04-2024 Tobacco use and exposure Smokeless tobacco non-user [facility] Start: 04-04-2024 End: 05-27-2024 Alcoholic beverage intake Ex-drinker (finding) [facility] Unknown [facility] Start: 12-30-2023 Gender identity Identifies as female gender (finding) [facility] Start: 12-30-2023 Sexual orientation Heterosexual (finding) [facility] Start: 01-25-2015 End: 06-27-2024 Sex Female (finding) [facility] Tobacco smoking stat [facility] Unknown if ever smoked [facility] Work Phone: Medical Equipment Procedure Code Equipment Code Equipment Origin al Text Equipment Identifier Dates 1 strip by In Vi tro route Daily Use in the morning prior to breakfast, 1 hour after each meal for a total of 4times daily. [id number] Start: 06-02-2024 End: 07-02-2024 1 each by In Vit ro route Daily Use to check FSBS four times daily [id number] Start: 06-02-2024 End: 07-02-2024 Goals Date Patient [...] illness Narrative Reason for Appointment: Patient ID: Raphael Elizabeth is a 38 y.o. female who [...] nursing note reviewed. Exam conducted with a receiving associate store present. Vitals: Estimated body mass index is [...] 30w3d with a Estimated Date of Delivery: 4/4/25. Removed gestational diabetes from patients chart. Patient brought in sugar logs for the last 2 weeks and all were within normal limits. Patient is able to discontinue checking sugars. Patient to return to clinic in 2-3 weeks. Documented by Kalie Loera LPN on behalf of:Emely Hunter PA-C documented in this encounter [facility] 06-30-2024 History of Present illness Narrative Reason for Appointment: Patient ID: Raphael Elizabeth is a 38 y.o. female who presents for Routine Visit Patient presents today for Return OB appointment. MEDICATIONS Current Outpatient Medications Medication Instructions Alcohol Swabs (Alcohol Prep Pad) 70 % pads 1 Pad, Topical, Daily, Use four times daily to check FSBS. BABY ASPIRIN PO 81 mg, Daily Blood Glucose Monitoring Suppl (D-Suninfo Information Glucometer) w/Device kit 1 kit, Does not [...] Scooby Vega DO documented in this encounter [facility] 06-02-2024 History of Present illness Narrative Reason for Appointment: Patient ID: Raphael Elizabeth is a 38 y.o. female who [...] nursing note reviewed. Exam conducted with a receiving associate store present. Vitals: Estimated body mass index is [...] Scooby Vega DO documented in this encounter [facility] 05-27-2024 History of Present illness Narrative REASON FOR CONSULTATION: A HISTORY OF PRESENT ILLNESS: Raphael Elizabeth is a pleasant 38 y.o. at [...] TESTS AND ULTRASOUND REPORTS: Referral records and [facility] chart were reviewed Pertinent Ultrasound findings are see formal ultrasound report. PHYSICAL EXAMINATION: BP 110/63 Pulse 83 Ht 170.2 cm (5' 7 ) Wt 64 kg (141 lb) LMP 12/18/2023 BMI 22.08 kg/m Well-appearing in no distress. Respirations not labored, speaking comfortably in full sentences Gravid abdomen OVERALL ASSESSMENT -Raphael Elizabeth is a pleasant 38 y.o. at [...] preeclampsia prevention as is recommended by the [place] [employer] Committee Opinion No. 743. [...] patient is in complete care of her veterinary surgery technician. Thank you for allowing me to participate in the care of Raphael Elizabeth. If there any questions please do not hesitate to contact us. Gracie Ramsey MD Maternal- Medicine [facility] [address] [facility] [address] [place] [address] [facility], the CDC, and other organizations representing maternal and public health professionals recommend that , , and lactating people and those considering receive the COVID-19 vaccination. Vaccination is the best method to reduce maternal and complications of SARS-CoV-2 infection. This document was created with appiris technology. Though I make every effort to review the dictation as it is transcribed, on occasion the spoken word can be misinterpreted by the technology leading to inappropriate words, phrases, or sentences. This note is addressed to the requesting provider as a consultation for clinical guidance. Specific medical abbreviations are occasionally used and those are generally approved by the [place]?Board of?Obstetrics and?Gynecology?as well as?Cali aparicio abbreviations. The above plan of care was based solely on the diagnoses for which a consultation was requested. ?More frequent testing may be indicated based on her other medical/obstetrical conditions. The management of other or medical conditions is beyond the scope of requested consultation and will continue to be followed by the primary veterinary surgery technician or primary care provider. Note to patient: The Cures Act makes medical notes like these [...] yes Have you been seen here at [facility] in a previous ? N/a Recent ER visits or hospitalizations? no Bring blood sugar log or meter with you today? (Please bring them with you for every visit at [facility]) n/a Flu vaccine (Apr-August)? no Any concerns that you would like me to mention to the provider today? no documented in this encounter [facility] 05-02-2024 History of Present illness Narrative Reason for Appointment: Patient ID: Raphael Elizabeth is a 38 y.o. female who [...] nursing note reviewed. Exam conducted with a receiving associate store present. Vitals: Estimated body mass index is [...] obtained without difficulty and patient was given msAFP order to have obtained. Orders Placed This [...] of: JORDYN Fonseca documented in this encounter [facility] 04-04-2024 History of Present illness Narrative Reason for Appointment: Patient ID: Raphael Elizabeth is a 38 y.o. female who [...] nursing note reviewed. Exam conducted with a receiving associate store present. Vitals: Estimated body mass index is [...] Aspirin. Discussed again in regards to seeing [facility] & referral will be completed. Patient to have NST/BPP starting at 32 weeks gestation. Patient will have Anatomy Scan done at [facility]. Patient is Rh Negative and will require [...] Scooby Vega DO documented in this encounter [facility] 04-04-2024 History of Present illness Narrative Chief [...] this plan. documented in this encounter [facility] 04-01-2024 History of Present illness Narrative Physical Therapy Treatment Visit Patient Name: Raphael Elizabeth Today's Date: 04/01/2024 Encounter Diagnoses Name [...] and it pops a lot randomly. Precautions: [place] Subjective: Pt states overall, ROM has improved. [...] to be instructed in home exercise program. Correction Goals: To be met in 10 weeks [...] sign below. Date: documented in this encounter [facility] 03-23-2024 History of Present illness Narrative Physical Therapy Treatment Visit Patient Name: Raphael Elizabeth Today's Date: 03/23/2024 Encounter Diagnoses Name [...] and it pops a lot randomly. Precautions: [place] Subjective: Pt states range of motion of [...] to be instructed in home exercise program. Development Lead Goals: To be met in 10 weeks [...] sign below. Date: documented in this encounter [facility] 03-18-2024 History of Present illness Narrative Physical Therapy Evaluation Visit Patient Name: Raphael Elizabeth Today's Date: 03/18/2024 Encounter Diagnoses Name [...] and it pops a lot randomly. Precautions: [place] Subjective: Pt states she feels like her [...] to be instructed in home exercise program. Correction Goals: To be met in 10 weeks [...] sign below. Date: documented in this encounter [facility] 03-11-2024 History of Present illness Narrative Physical Therapy Evaluation Visit Patient Name: Raphael Elizabeth Today's Date: 03/11/2024 Encounter Diagnoses Name [...] and it pops a lot randomly. Precautions: [place] Subjective: Pt states overall she believes hip [...] to be instructed in home exercise program. Correction Goals: To be met in 10 weeks [...] sign below. Date: documented in this encounter [facility] 03-07-2024 History of Present illness Narrative Reason for Appointment: Patient ID: Raphael Elizabeth is a 38 y.o. female who [...] nursing note reviewed. Exam conducted with a receiving associate store present. Vitals: Estimated body mass index is [...] or undercooked meat, and stay away from [facility]. Patient has been consulted regarding any further do's and don'ts of . Patient voiced understanding and all questions and concerns were answered. Follow Up: Patient is to return in 4 weeks for routine OB appointment. Documented by Kalie Loera LPN on behalf of: Scooby Vega DO documented in this encounter [facility] 03-03-2024 History of Present illness Narrative Physical Therapy Evaluation Visit Patient Name: Raphael Elizabeth Today's Date: 03/03/2024 Encounter Diagnoses Name [...] and it pops a lot randomly. Precautions: [place] Subjective: Pt states she has been doing [...] to be instructed in home exercise program. Correction Goals: To be met in 10 weeks [...] sign below. Date: documented in this encounter [facility] 02-26-2024 History of Present illness Narrative Physical Therapy Evaluation Visit Patient Name: Raphael Elizabeth Today's Date: 02/26/2024 Encounter Diagnoses Name [...] and it pops a lot randomly. Precautions: [place] Subjective: Pt states she was able to [...] to be instructed in home exercise program. Development Lead Goals: To be met in 10 weeks [...] sign below. Date: documented in this encounter [facility] 02-17-2024 History of Present illness Narrative Physical Therapy Evaluation Visit Patient Name: Raphael Elizabeth Today's Date: 02/17/2024 Encounter Diagnoses Name [...] and it pops a lot randomly. Precautions: [place] Subjective: Pt states she has not done [...] to be instructed in home exercise program. Development Lead Goals: To be met in 10 weeks [...] sign below. Date: documented in this encounter [facility] 02-12-2024 History of Present illness Narrative Reason for Appointment: Patient ID: Raphael Elizabeth is a 38 y.o. female who [...] or undercooked meat, and stay away from [facility]. Patient has also been advised to not [...] Estee Cobb LPN documented in this encounter [facility] 02-10-2024 History of Present illness Narrative Physical Therapy Evaluation Visit Patient Name: Raphael Elizabeth Today's Date: 02/11/2024 Encounter Diagnoses Name [...] and it pops a lot randomly. Precautions: [place] Subjective: left hip ant and lateral Pain: [...] to be instructed in home exercise program. Correction Goals: To be met in 10 weeks [...] Evaluation note No assessment inform ation available [facility] Work Phone: Evaluation note Diagnosis Onset Date Left hip pain acute [facility] Work Phone: Evaluation note* Diagnosis Pain of left hip- Primary Hip flexor tendinitis, left documented in this encounter [facility]* Diagnosis Pain of left hip- Primary Hip flexor tendinitis, left documented in this encounter [facility] HealthcareEvaluation note* Diagnosis Femoroacetabular impingement of left hip- Primary [facility] Diagnosis Second trimester state, incidental Screening, , for anatomic survey Encounter for anatomic survey with 15 completed weeks gestation documented in this encounter [facility] HealthcareEvaluation note* Diagnosis Well woman exam with routine gynecological exam Routine gynecological examination Second trimester state, incidental 19 weeks gestation of Vaginal discharge Leukorrhea, not specified as infective STD exposure Screening, , for anatomic survey Encounter for anatomic survey documented in this encounter [facility]Evaluation note* Diagnosis Advanced maternal age, 1st , second trimester- Primary 23 weeks gestation of [facility] Diagnosis Pain of left hip- Primary Hip flexor tendinitis, left documented in this encounter [facility]Evaluation note* Diagnosis First trimester state, incidental Antepartum multigravida of advanced maternal age Nausea and vomiting in Unspecified vomiting of , unspecified as to episode of care documented in this encounter [facility] HealthcareEvaluation note* Diagnosis Second trimester state, incidental 23 weeks gestation of with normal glucose tolerance test (GTT) Diabetes mellitus screening Screening for diabetes mellitus Gestational diabetes mellitus (GDM), antepartum, gestational diabetes method of control unspecified Elevated glucose tolerance test Impaired glucose tolerance test documented in this encounter [facility] note* Diagnosis Missed menses documented in this encounter [facility]Evaluation note* Diagnosis Pain of left hip- Primary Hip flexor tendinitis, left documented in this encounter [facility] note* Diagnosis Pain of left hip- Primary Hip flexor tendinitis, left documented in this encounter [facility] note* Diagnosis 27 weeks gestation of Second trimester state, incidental Gestational diabetes mellitus (GDM), antepartum, gestational diabetes method of control unspecified documented in this encounter [facility] note* Diagnosis 30 weeks gestation of Third trimester state, incidental documented in this encounter [facility] HealthcareInstructionsNot on filedocumented in this encounter[facility] SystemInstructionsNot on filedocumented in this encounterPro[facility] SystemInstructionsNot on filedocumented in this encounterProWilson [facility] Summary Purpose Family History [...] and content) DATE CREATED AUTHOR 03/22/2022 [facility] DATE CREATED AUTHOR AUTHOR'S ORGANIZ ATION 04/05/2024 [facility] DATE CREATED AUTHOR AUTHOR'S ORGANIZ ATION 07/03/2024 [facility] DATE CREATED AUTHOR AUTHOR'S ORGANIZ ATION 07/19/2024 [facility] EPIC Care Teams [...] Status: Inactive Member Role Status Dates Scooby Gary Attending Provider Active Start: Ashish drake 2023 [...] December 01, 2023 End: December 01, 2023 Damper Maker Relationship Specialty Start Date End Date Jen Granados MD [address] [place] [id number] PCP - General Family Medicine 03/10/23 Damper Maker Relationship Specialty Start Date End Date Jen Granados MD [address] [place] [address] PCP - General Family Medicine 03/10/23 Damper Maker Relationship Specialty Start Date End Date Jen Granados MD [address] [place] [address] PCP - General Family Medicine 03/10/23 Damper Maker Relationship Specialty Start Date End Date Jen Granados MD [address] [place] [address] PCP - General Family Medicine 03/10/23 Damper Maker Relationship Specialty Start Date End Date Jen Granados MD [address] [place] [address] PCP - General 02/03/24 Damper Maker Relationship Specialty Start Date End Date Jen Granados MD [address] [place] [address] PCP - General Family Medicine 03/10/23 Damper Maker Relationship Specialty Start Date End Date Jen Granados MD [address] [facility], [place] [id number] PCP - General 02/03/24 Damper Maker Relationship Specialty Start Date End Date Jen Granados MD [address] [place] [address] PCP - General Family Medicine 03/10/23 Damper Maker Relationship Specialty Start Date End Date Jen Granados MD [address] [place] [phone] PCP - General Family Medicine 03/10/23 Damper Maker Relationship Specialty Start Date End Date Jen Granados MD [address] [place] [address] PCP - General Family Medicine 03/10/23 Damper Maker Relationship Specialty [place] [address] [place] [address], [place] [address] PCP - General 02/03/24 Damper Maker Relationship Specialty Start Date End Date Jen Granados MD [address] [place] [address] PCP - General Family Medicine 03/10/23 Damper Maker Relationship Specialty Start Date End Date Jen Granados MD [address] [place] [address] PCP - General Family Medicine 03/10/23 Damper Maker Relationship Specialty Start Date End Date Jen Granados MD [address] [place] [phone] PCP - General Family Medicine 03/10/23 Damper Maker Relationship Specialty Start Date End Date Jen Granados MD [address] [facility]], [place] [address] PCP - General Family Medicine 03/10/23 Damper Maker Relationship Specialty Start Date End Date Jen Granados MD [address] [facility]], [place] [address] PCP - General Family Medicine 03/10/23 Damper Maker Relationship Specialty Start Date End Date Jen Granados MD [address] [facility]], [place] [address] PCP - General Family Medicine 03/10/23 Damper Maker Relationship Specialty Start Date End Date Jen Granados MD [address] [facility]], [place] [address] PCP - General Family Medicine 03/10/23 [...] Status: Active Member Role Status Dates Jen Grnaados MD Primary Care Provider Active Start: June 25, 2024 Jae Cervantes DO Attending Provider Active S tart: June 25, 2024 Team Status: Inactive Member Role Status Dates Jen Granados MD Primary Care Provider Active Start: June 25, 2024 End: June 25, 2024 Jae Cervantes DO Attending Provider Active S tart: June 25, 2024 End: June 25, 2024 Damper Maker Relationship Specialty Start Date End Date Jen Granados MD [address] [facility]], [place] [address] PCP - General Family Medicine 03/10/23 Damper Maker Relationship Specialty Start Date End Date Jen Granados MD [address] [facility]], [place] [address] PCP - General Family Medicine 03/10/23 Damper Maker Relationship Specialty Start Date End Date Jen Granados MD [address] [facility]], [place] [phone] PCP - General Family Medicine 03/10/23 Damper Maker Relationship Specialty Start Date End Date Jen Granados MD [address] [place] [address] PCP - General Family Medicine 03/10/23 Damper Maker Relationship Specialty Start Date End Date Jen Granados MD [address] [place] [address] PCP - General Family Medicine 03/10/23 Goals [...] LOW COMPLEX 20 MINS Ashley Shin MD [address] [facility] [address] Gretchen Moreno PT Referral ID Status Reason Start Date Expiration Date V isits Requested Visits Authorized [id number] Authorized 02/10/2024 08/08/2024 99 99 Reason Comments [...] BE BASED ON THE PRIMARY CLINICAL RECORDS. [employer] [facility]. provides no warranty or guarantee of the accuracy or completeness of information in this document.
[2024-08-02 18:15] VITALS: BP 117/75; PULSE 102
== END 2024-08-02 18:44 | disposition home or self-care (01) ==
LOC: FBCO 18:04 → FBC 18:06
PROVIDERS: PCP Family Medicine; Visit Provider Obstetrics & Gynecology
DX: O09.523 Supervision of elderly multigravida, third trimester (principal)
CPT/HCPCS: 59025

== ENCOUNTER 2024-08-05 00:18 | Outpatient (OUT) | payer OTHER, SELFPAY ==
--- OUTSIDE RECORDS SUMMARY | 2024-08-05 00:21 | XMS_ITS | CCD ---
Author Organization [facility] Care Team Providers Care Nurse Practitioner Home Assessments Name Role Phone DOREEN, DR HOFFMAN Attending Unavailable DARWIN, DR JEN Ramirez Primary Care Unavailable DOREEN, DR HOFFMAN Admitting Unavailable DOREEN, DR HOFFMAN Consulting Unavailable GARY, DR PAUL Admitting Unavailable GARY, DR PAUL Consulting Unavailable GARY, DR PAUL Attending Unavailable DARWIN, DR JEN Ramirez Primary Care Unavailable Scooby Vega Attending Provider Jen Granados MD Primary Care Provider [phone] KALEB SHINIL Jose Attending Unavailable JEN GRANADOS Referring Unavailable JEN GRANADOS Primary Care Unavailable ASHLEY SHIN K Attending Unavailable JEN GRANADOS Referring Unavailable JEN GRANADOS Primary Care Unavailable Jen Granados MD Primary Care Provider Jen Granados MD Primary Care Provider [phone] Jae Cervantes DO Attending Provider Unavailab Jae Redd Admitting Unavailable Jae Cervantes Attending Unavailable Jen Granados Primary Care Unavailable Dm Vegay Admitting Unavailable Dm Vegay Attending Unavailable DM VEGAY Attending Unavailable GARYDMY Attending Unavailable EMELY HUNTER Attending Unavailable MORENO GRETCHEN Attending Unavailable SHIN, ASHLEY Referring Unavailable MASON GRETCHEN Attending Unavailable SHIN, ASHLEY Referring Unavailable MORENO, GRETCHEN Attending Unavailable SHIN, ASHLEY Referring Unavailable MORENO, GRETCHEN Attending Unavailable SHIN, ASHLEY Referring Unavailable GARY, SCOOBY Attending Unavailable MASON, GRETCHEN Attending Unavailable SIHN, ASHLEY Referring Unavailable MORENO, GRETCHEN Attending Unavailable SHIN, ASHLEY Referring Unavailable MORENO GRETCHEN Attending Unavailable ASHLEY SHIN Referring Unavailable GRETCHEN MORENO Attending Unavailable ASHLEY SHIN Referring Unavailable SCOOBY VEGA Attending Unavailable EMELY HUNTER Attending Unavailable SCOOBY VEGA Attending Unavailable SCOOBY VEGA Attending Unavailable Allergies Allergy Classification Reported Allergen(s) Allergy Type Date of Onset Reaction(s) Facility (20 sources) Amoxicillin; Translations: [AMOXICILLIN] Drug Allergy 3 GI intolerance, GI Disturbance [facility] (3 sources) 12 Hour Decongestant Allergy to substance 3 Hives [facility] Medications Current Medications Medication Drug [...] in the morning. Active Blood Glucose Monitoring Sup pl (D-Care Glucometer) w/Device kit (12 sources) Start: 06-02-2024 End: 06-02-2025 Blood Glucose Monitoring Sup pl (D-Care Glucometer) w/Device kit Indications: Elevated glucose tolerance test 1 kit Daily Use four times daily to check FSBS. In the morning prior to breakfast & 1 hour after each meal for a total of 4times daily. 1 kit 06/02/2024 06/02/2025 Active Start: 06-02-2024 End: 06-02-2025 [address] Monitoring Sup [address] (D-Care Glucometer) w/Device kit Indications: Gestational diabetes mellitus (GDM), antepartum, gestational diabetes method of control unspecified , Elevated glucose tolerance test 1 kit Daily Use four times daily to check FSBS. In the morning prior to breakfast & 1 hour after each meal for a total of 4times daily. 1 kit 06/02/2024 06/02/2025 Active doxycycline hyclate 100 mg oral capsule (5 sources) Tetracycline-class Drug Start: 10-23-2023 End: 02-12-2024 take 1 [...] (Other) isopropyl alcohol 0.7 ml/ml medicated pad (12 sources) Start: 06-02-2024 Alcohol Swabs (Alcohol Prep Pad) 70 % pads Indications: Elevated glucose tolerance test Apply 1 Pad topically Daily Use four times daily to check FSBS. 150 each 3 06/02/2024 Active minocycline 50 mg oral capsule (3 sources) Tetracycline-class Drug End: 02-12-2024 take 1 capsule by mouth every twelve hours minocycline 50 MG capsule 1 capsule every 12 (twelve) hours 02/12/2024 Discontinued (Other) omega-3 acid ethyl esters (chcf) 1000 mg oral capsule (1 source) take [...] 04-04-2024 Episodic Other and delivery including normal (18 sources) Second trimester ; Translations: [Encounter for supervision of normal , unspecified, second trimester] Onset: 08-01-2024 04-04-2024 Episodic Other screening for suspected conditions [...] [30 weeks gestation of ] 07-18-2024 Episodic Residual codes; unclassified (4 sources) Gestation period, 32 weeks; Translations: [32 weeks gestation of ] Onset: 08-01-2024 08-01-2024 Episodic Unclassified (1 source) New Patient Onset: 02-08-2024 Unclassified (18 sources) OB Reminders Onset: 05-02-2024 05-02-2024 Past [...] Facility OB BPP W NON-STRESS on 08-01-2024 [place] [address] Ultrasound Report Signed Patient: RAPHAEL ELIZABETH MR#: [id number] : 1985 Acct:[id number] Age/Sex: 38 / F ADM Date: 07/29/24 Loc: US Attending Dr: Scooby Vega D.O. Ordering Physician: Scooby Vega D.O. Date of Service: 07/29/24 Procedure(s): US OB BPP w non-stress Accession Number(s): [id number] cc: Jen Granados M.D.; Scooby Vega D.O. [facility] [place] [address] Patient Name: RAPHAEL ELIZABETH MRN: [facility]:[id number] date: 1985 Sex: F Assigned Patient Location: [facility] Current Patient Location: Accession/Order Number: [id number] Exam Date: 07/29/2024 19:04 Report Date: 08/01/2024 [...] M.D. Signed By: 08/01/24713 DD/ 0 TD/TT: Internet Marketing Specialist: [facility] [employer] [facility] Radiology, Radiologi MD wilmer - 08/01/2024 [place] [address] Ultrasound Report Signed Patient: RAPHAEL ELIZABETH MR#: [id number] : 1985 Acct:[id number] Age/Sex: 38 / F ADM Date: 07/29/24 Loc: US Attending Dr: Scooby Vega D.O. Ordering Physician: Scooby Vega D.O. Date of Service: 07/29/24 Procedure(s): US OB BPP w non-stress Accession Number(s): [id number] cc: Jen Granados M.D.; Scooby Vega D.O. [address] [address] Patient Name: RAPHAEL ELIZABETH MRN: [id number] date: 1985 Sex: F Assigned Patient Location: [facility] Current Patient Location: Accession/Order Number: [id number] Exam Date: 07/29/2024 19:04 Report Date: 08/01/2024 [...] M.D. Signed By: 08/01/24713 DD/ 0 TD/TT: Internet Marketing Specialist: [facility] Radiology Study observation (narrative) [facility] OB BPP W NON-STRESS Ordered By: Radiologist Radiology on 08-01-2024 [facility] Work Phone: Urinalysis macro (dipstick) panel (U)on 08-01-2024 Bilirubin, UA Negative Negative - 4(70) +++ mg/dL [facility] Blood, UA Negative Negative - 50 Ulises/mcL [facility] Clarity, UA Clear [facility] Color, UA Yellow [facility] Glucose, UA Negative Negative - 1999(110) ++++ mg/dL [facility] Interpretation and review of laboratory results Abnormal [facility] Ketones, UA Negative Negative - 160(16) ++++ mg/dL [facility] Leukocytes, UA Trace Negative - 500+++ Clair/mcL [facility] Nitrite, UA Negative Negative - Positive [facility] pH, UA 7.5 5 - 9 [facility] Protein, UA Negative Negative - 1999(20) ++++ mg/dL [facility] Spec Grav, UA 1.015 1 - 1.03 [facility] Urobilinogen, UA 0.2 0.2 - 12 mg/dL [facility] Urinalysis macro (dipstick) panel (U)on 07-18-2024 Bilirubin, UA Negative Negative - 4(70) +++ mg/dL [facility] Blood, UA Negative Negative - 50 Ulises/mcL [facility] Clarity, UA Clear [facility] Color, UA Yellow [facility] Glucose, UA Negative Negative - 1999(110) ++++ mg/dL [facility] Interpretation and review of laboratory results Normal [facility] Ketones, UA Negative Negative - 160(16) ++++ mg/dL [facility] Leukocytes, UA Negative Negative - 500+++ Clair/mcL [facility] Nitrite, UA Negative Negative - Positive [facility] pH, UA 7 5 - 9 [facility] Protein, UA Negative Negative - 1999(20) ++++ mg/dL [facility] Spec Grav, UA 1.025 1 - 1.03 [facility] Urobilinogen, UA 0.2 0.2 - 12 mg/dL [facility] ALL CBC WITH AUTO DIFFon BASOPHILS ABSOLUTE AUTO 0 [facility] Basophils/100 WBC (Bld) 0.2 % 0.2 - 2.0 % [facility] Eosinophils/100 WBC (Bld) 0.9 % 0.9 - 7.0 % [facility] Erythrocyte distribution width (RBC) [Ratio] 13 % 11.0 - 15.0 % [facility] Hematocrit (Bld) [Volume fraction] 32.2 % Low 36.0 - 48.0 % [facility] Hemoglobin (Bld) [Mass/Vol] 10.9 g/dL Low 12.0 - 16.0 g/dL [facility] IMMATURE GRANULOCYTES ABS AUTO 0.13 High [facility] Immature granulocytes/100 WBC (Bld) 1.4 % High 0.0 - 0.5 % [facility] Interpretation and review of laboratory results Abnormal [facility] LYMPHOCYTES ABSOLUTE AUTO 1.4 [facility] Lymphocytes/100 WBC (Bld) 15.4 % Low 20.5 - 60.0 % [facility] MCH (RBC) [Entitic mass] 32.7 pg 26.7 - 34.0 pg [facility] MCHC (RBC) [Mass/Vol] 33.9 g/dL 29.9 - 35.2 g/dL [facility] MCV (RBC) [Entitic vol] 96.7 fL 81.0 - 99.0 fL [facility] MONOCYTES ABSOLUTE AUTO 0.5 [facility] Monocytes/100 WBC (Bld) 4.8 % 1.7 - 12.0 % [facility] NEUTROPHILS ABSOLUTE AUTO 7.2 High [facility] Neutrophils/100 WBC (Bld) 77.3 % High 43.0 - 75.0 % [facility] Platelet mean volume (Bld) [Entitic vol] 9.2 fL Low 9.5 - 13.5 fL [facility] TBH EO # 0.1 [facility] PLT 229 [facility] RBC 3.33 Low [facility] WBC 9.3 [facility] Urinalysis macro (dipstick) panel (U)on 06-30-2024 Bilirubin, UA Negative Negative - 4(70) +++ mg/dL [facility] Blood, UA Negative Negative - 50 Ulises/mcL [facility] Clarity, UA Clear [facility] Color, UA Yellow [facility] Glucose, UA Negative Negative - 1999(110) ++++ mg/dL [facility] Interpretation and review of laboratory results Abnormal [facility] Ketones, UA Negative Negative - 160(16) ++++ mg/dL [facility] Leukocytes, UA Trace Negative - 500+++ Clair/mcL [facility] Nitrite, UA Negative Negative - Positive [facility] pH, UA 8.5 5 - 9 [facility] Protein, UA Positive Negative - 1999(20) ++++ mg/dL [facility] Comment on above: trace Spec Grav, UA 1.015 1 - 1.03 [facility] Urobilinogen, UA 0.2 0.2 - 12 mg/dL [facility] Basophils/100 WBC Manual cnt (Bld)on 06-25-2024 Basophils/100 WBC (Bld) Basophils/100 leukocytes in Blood by Manual count Low 0.2-2.0 [facility] Eosinophils/100 WBC Manual c nt (Bld)on 06-25-2024 Eosinophils/100 WBC (Bld) Eosinophils/100 leukocytes in Blood by Manual count 0.9-7.0 [facility] Erythrocyte distribution wid th Auto (RBC) [Ratio]on 06-25-2024 Erythrocyte distribution width (RBC) [Ratio] Erythrocyte distribution width [Ratio] by Automated count 11.0-15.0 [facility] Estimated glomerular filtrat ion rate (GFR) non- Americanon 06-25-2024 GFR/1.73 sq M.predicted among non-blacks MDRD (S/P/Bld) [Vol rate/Area] Estimated glomerular filtration rate (GFR) non- >=60 mL/min/1.73 m 2 [facility] Hematocrit Auto (Bld) [Volum e fraction]on 06-25-2024 Hematocrit (Bld) [Volume fraction] Hematocrit [Volume Fraction] of Blood by Automated count Low 36.0-48.0 [facility] Hemoglobin [Mass/volume] in Bloodon 06-25-2024 Hemoglobin (Bld) [Mass/Vol] Hemoglobin [Mass/volume] in Blood Low 12.0-16.0 [facility] Laboratory - Chemistry and C hemistry - challengeon 06-25-2024 Calcium [Mass/Vol] 8.2 mg/dL Low 8.5-10.1 [facility] Chloride [Moles/Vol] 99 mmol/L 98-107 [facility] CO2 [Moles/Vol] 21.2 mmol/L 21.0-32.0 [facility] Creatinine [Mass/Vol] 0.89 mg/dL 0.55-1.02 [facility] GFR/1.73 sq M.predicted MDRD (S/P/Bld) [Vol rate/Area] mL/min/{1.73_m2} >=60 mL/min/1.73 m 2 [facility] Glucose [Mass/Vol] 98 mg/dL 74-106 [facility] Potassium [Moles/Vol] 3.7 mmol/L 3.5-5.1 [facility] Sodium [Moles/Vol] 130 mmol/L Low 136-145 [facility] Urea nitrogen [Mass/Vol] 7.0 mg/dL 7.0-18.0 [facility] Urea nitrogen/Creatinine [Mass ratio] 7.9 mg/mg [facility] Bilirubin Ql (U) Negative NEGATIVE [facility] Glucose (U) [Mass/Vol] Negative NEGATIVE [facility] Ketones Ql (U) 15 mg/dL Abnormal NEGATIVE [facility] pH (U) 7.5 [pH] 5.0-9.0 [facility] Specific gravity (U) [Rel density] 1.015 1.005-1.025 [facility] Urobilinogen Qn (U) 1.0 {Ree'U}/dL 0.2-1.0 [facility] Laboratory - Hematology and Cell countson 06-25-2024 Band form neutrophils/100 WBC (Bld) 2.0 % 0-5 [facility] Lymphocytes/100 WBC (Bld) 2.0 % Low 20.5-60.0 [facility] Monocytes/100 WBC (Bld) 5.0 % 1.7-12.0 [facility] Laboratory - Microbiology an d Antimicrobial susceptibilityon 06-25-2024 SARS-CoV-2 (COVID-19) RNA JUAN ANTONIO+probe Ql (Unsp spec) Negative NEGATIVE [facility] Comment on above: This test has not be en FDA cleared or approved, but has beenauthorized by the FDA under an Emergency Use Authorization(EUA) for use by authorized laboratories certified underCLIA that meet the requirements to perform moderate [...] ationon 06-25-2024 Appearance (U) CLOUDY Abnormal CLEAR [facility] Color (U) DK YELLOW YELLOW [facility] Laboratory - Urinalysison Leukocyte esterase Test strip Ql (U) Negative NEGATIVE [facility] Nitrite Ql (U) Negative NEGATIVE [facility] Protein Ql (U) TRACE mg/dL NEG/TRACE [facility] Leukocytes [#/volume] correc leroy for nucleated erythrocytes in Blood by Automated counon 06-25-2024 WBC corrected for nucl RBC Auto (Bld) [#/Vol] Leukocytes [#/volume] corrected for nucleated erythrocytes in Blood by Automated coun 4.0-11.0 [facility] MCH Auto (RBC) [Entitic mass ]on 06-25-2024 MCH (RBC) [Entitic mass] MCH [Entitic mass] by Automated count 26.7-34.0 [facility] MCHC Auto (RBC) [Mass/Vol]on 06-25-2024 MCHC (RBC) [Mass/Vol] MCHC [Mass/volume] by Automated count 29.9-35.2 [facility] MCV Auto (RBC) [Entitic vol] on 06-25-2024 MCV (RBC) [Entitic vol] MCV [Entitic volume] by Automated count 81.0-99.0 [facility] No Panel Informationon 06-25 Absolute Basophils (Manual) 0.00 10 3/uL 0.00-0.10 [facility] Band Neutrophils # (Manual) 0.2 10 3/uL 0.0-0.3 [facility] Eosinophils # (Manual) 0.08 10 3/uL 0.00-0.70 [facility] Lymphocytes # (Manual) 0.16 10 3/uL Low 1.20-3.80 [facility] Monocytes # (Manual) 0.41 10 3/uL 0.30-0.80 [facility] Segmented Neutrophils # (Manual) 7.38 10 3/uL High 1.4-6.5 [facility] Urine Occult Blood Negative NEGATIVE [facility] Bedside Influenza Type A Antigen Positive Abnormal [facility] Comment on above: NOTE: Live attenuate d influenza vaccine viruses can cause apositive result for a rapid influenza diagnostic test ifadministered up to 7 days prior to rapid testing. Bedside Influenza Type B Antigen Negative [facility] Comment on above: Negative for Flu B p rotein antigen. Infection due to Flu Bcannot be ruled out. Flu B antigen in the sample may bebelow the detection limit of the test. Platelet mean volume Auto (B ld) [Entitic vol]on 06-25-2024 Platelet mean volume (Bld) [Entitic vol] Platelet mean volume [Entitic volume] in Blood by Automated count Low 9.5-13.5 [facility] Platelets Auto (Bld) [#/Vol] on 06-25-2024 Platelets (Bld) [#/Vol] Platelets [#/volume] in Blood by Automated count 150-450 [facility] RBC Auto (Bld) [#/Vol]on RBC (Bld) [#/Vol] Erythrocytes [#/volu me] in Blood by Automated count Low 4.20-5.40 [facility] Segmented neutrophils/100 WB C Manual cnt (Bld)on 06-25-2024 Segmented neutrophils/100 WBC (Bld) Manual blood segmented neutrophils/100 leukocytes High 43.0-75.0 [facility] Serum or plasma anion gap de terminationon 06-25-2024 Anion gap [Moles/Vol] Serum or plasma anion gap determination [facility] Urine Cultureon 06-25-2024 Bacteria identified Cx Nom (U) No Growth 2 Days PERFORMED BY: [address] [place] [address] PATHOLOGIST FLY RAIL OPERATOR DANTE PALACIOS M.D. Normal [facility] Comment on above: Performed By: #### C UU #### [facility] [address] IGP,APTIMA HPV,AGE GDLNon AGE GDLN ACOG TESTING Note . [facility] Comment on above: TESTS RESULT FLAG U NITS REF RANGE LAB Clinician Provided Cytology Information Source.............Cervix No. of containers..01 ThinPrep Vial Age Algo ACOG Annel... FLAG LEGEND: L-Low Normal,H-High Normal,LL-Alert Low,HH-Alert High <-Panic Low,>-Panic High,A-Abnormal,AA-Critical Abnormal Performed at: 01 =G [address] [address] Kathryn Maldonado MD, HPV APTIMA Negative Negative [facility] Comment on above: This nucleic acid am plification test detects fourteen high- risk HPV types (16,18,31,33,35,39,45,51,52,56,58,59,66,68) without differentiation. Performed at: =[address] [id number] Feeder Tender: Kathryn Maldonado MD, Phone: [phone] Performed at: [address] [id number] Feeder Tender: Kathryn Maldonado MD, Phone: [phone] IGP, APTIMA HPV, RFX 16/18,45 Note . [facility] Comment on above: TESTS RESULT FLAG UN ITS REF RANGE LAB DIAGNOSIS: 02 NEGATIVE FOR INTRAEPITHELIAL LESION OR MALIGNANCY. Specimen adequacy: 02 Satisfactory for evaluation. Endocervical and/or squamous metaplastic cells (endocervical component) are present. Performed by: 02 Thao Shankar, Child And Adolescent Psychiatrist . 02 Note: Note 02 The Pap [...] Low,>-Panic High,A-Abnormal,AA-Critical Abnormal Performed at: [address] [facility] [place] [address] Kathryn Maldonado MD, BRUSH-SPATULA CERVIX [facility] RECURRENT VAGINITIS (HTRX)on 05-05-2024 ATOPOBIUM VAGINAE 0 [facility] ATOPOBIUM VAGINAE Not detected [facility] BVAB 2,3 (BACTERIAL VAGINOSIS ASSOCIATED BACTERIA 2, 3); MOBILUNCUS SPP 0 [facility] BVAB 2,3 (BACTERIAL VAGINOSIS ASSOCIATED BACTERIA 2, 3); MOBILUNCUS SPP Not detected [facility] JED ALBICANS, PARAPSILOSIS, TROPICALIS 0 [facility] JED ALBICANS, PARAPSILOSIS, TROPICALIS Not detected [facility] JED GLABRATA 0 [facility] JED GLABRATA Not detected [facility] JED KRUSEI 0 [facility] JED KRUSEI Not detected [facility] CHLAMYDIA TRACHOMATIS 0 [facility] CHLAMYDIA TRACHOMATIS Not detected [facility] GARDNERELLA VAGINALIS 0 [facility] GARDNERELLA VAGINALIS Not detected [facility] MEGASPHAERA (TYPES 1, 2) 0 [facility] MEGASPHAERA (TYPES 1, 2) Not detected [facility] MYCOPLASMA GENITALIUM 0 [facility] MYCOPLASMA GENITALIUM Not detected [facility] NEISSERIA GONORRHOEAE 0 [facility] NEISSERIA GONORRHOEAE Not detected [facility] TRICHOMONAS VAGINALIS 0 [facility] TRICHOMONAS VAGINALIS Not detected [facility] Urinalysis macro (dipstick) panel (U)on 05-03-2024 Bilirubin, UA Negative Negative - 4(70) +++ mg/dL [facility] Blood, UA Negative Negative - 50 Ulises/mcL [facility] Clarity, UA Clear [facility] Color, UA Yellow [facility] Glucose, UA Negative Negative - 1999(110) ++++ mg/dL [facility] Interpretation and review of laboratory results Normal [facility] Ketones, UA Negative Negative - 160(16) ++++ mg/dL [facility] Leukocytes, UA Negative Negative - 500+++ Clair/mcL [facility] Nitrite, UA Negative Negative - Positive [facility] pH, UA 0.5 5 - 9 [facility] Protein, UA Negative Negative - 1999(20) ++++ mg/dL [facility] Spec Grav, UA 1.025 1 - 1.03 [facility] Urobilinogen, UA 1.0 0.2 - 12 mg/dL [facility] Human papilloma virus 16+18+ 31+33+35+39+45+51+52+56+58+59+66+68 DNA [Presence] in Denis 05-02-2024 HPV 16+18+31+33+35+39+4 5+51+52+56+58+59+66 +68 DNA Probe+sig amp Ql (Cvx) Human papilloma virus 16+18+31+33+35+39+45+51+52+5 6+58+59+66+68 DNA [Presence] in Cer Negative [facility] Comment on above: This nucleic acid am plification test detects fourteen high- risk HPV types (16,18,31,33,35,39,45,51,52,56,58,59,66,68)without differentiation.Performed at: =G - [facility] [address] [id number] Director: Kathryn Maldonado MD, Phone: [phone] at: - [facility] [address] [id number] Director: Kathryn Maldonado MD, Phone: [phone] No Panel Informationon 05-02 HPV High Risk Other Comment Note . [facility] Comment on above: TESTS RESULT FLAG UN ITS REF RANGE LAB JESE GNOSIS: 02 NEGATIVE FOR INTRAEPITHELIAL LESION OR MALIGNANCY.Specimen adequacy: 02 Satisfactory for evaluation. Endocervical and/or squamous metaplastic cells (endocervical component) are present.Performed by: Elidia Shankar, Child And Adolescent Psychiatrist. 02Note: Note 02 The Pap smear is [...] Low,>-Panic High,A-Abnormal,AA-Critical Abnormal --Performed at:02 [facility] [address] [place] [place] [address] Kathryn Maldonado MD, Reference Lab Test Patient Age Note . [facility] Comment on above: TESTS RESULT FLAG UN ITS REF RANGE LAB Clinician Provided Cytology Information Source.............Cervix No. of containers..01 ThinPrep VialAge Algo ACOG Annel... 30-65 01 FLAG LEGEND: L-Low Normal,H-High Normal,LL-Alert Low,HH-Alert High <-Panic Low,>-Panic High,A-Abnormal,AA-Critical Abnormal --Performed at:01 =G [facility] [address] [place] [address] Kathryn Maldonado MD, AFP, SERUM, OPEN SPINA BIFID Aon 05-01-2024 AFP MOM 1.18 . [facility] AFP VALUE 61.8 ng/mL . [facility] COMMENT: Comment . [facility] Comment on above: Cydney Rodriguez , Ph.D., [facility] Director References: Available Upon Request. Multiples Of Median Cutoffs For AFP Elevations Chiang 2.5 Black 2.8 IDD 2.0 Twins 4.5 Abbreviation Definitions IDD - Insulin Dep Diabetes OSBR - Open Spina Bifida Risk For further inquiries contact [employer] at [phone]. This test was developed and its performance characteristics determined by [employer]. It has not been cleared or approved by the Food and Drug Administration. Performed at: [facility] [address] [place], [place] [id number] Feeder Tender: Marissa Kovacs [facility], Phone: [phone] GEST. AGE ON COLLECTION DATE 19.0 . weeks [facility] GESTAT. AGE BASED ON LMP . [facility] Comment on above: Recalculations are n ot recommended when gestational dating by LMP and ultrasound are within 10 days. INSULIN DEP DIABETES No . [facility] INTERPRETATION Comment . [facility] Comment on above: Interpretation: Scre en [...] Customer Services to discuss available options. The [employer] recommends amniocentesis be offered to women age 35 and older. [age] [facility] MULTIPLE GESTATION No . [facility] OSBR RISK 1 IN 6916 . [facility] RACE . [facility] RESULTS Report . [facility] TEST RESULTS: Negative . [facility] WEIGHT 135 . lbs [facility] N N LMP [id number] 15 N 1 Y 135 N N N N N White/ [facility] Alpha-fetoprotein (AFP) paige urement (ihpygvfe-uz-hmmtwn)on 04-29-2024 AFP [MoM] Alpha-fetoprotein (A FP) measurement (kcqtlvhh-es-jydxtc) . [facility] Assess gestational ageon Gestational age Assess gestational age . [facility] Estimation of maternal age-s pecific risk of Down syndrome birthon 04-29-2024 Age [Time] Estimation of matern al age-specific risk of Down syndrome . [facility] Insulin dependent diabetes m ellitus detectionon 04-29-2024 Insulin dependent diabetes mellitus Ql Insulin dependent diabetes mellitus detection . [facility] Interpretation of serum or p lasma second trimester quad maternal screen (narrative reon 04-29-2024 Second trimester quad maternal screen Darshan [Interp] Interpretation of serum or plasma second trimester quad maternal screen (narrative re . [facility] Comment on above: Interpretation: Scre [...] 04-29 AFP Triple Screen Comment Comment . [facility] Comment on above: Cydney Rodriguez , Ph.D., DABCCDirectorReferences: Available Upon Request.Multiples Of Median Cutoffs For AFP ElevationsSingleton 2.5 Black 2.8IDD 2.0 Twins 4.5 Abbreviation DefinitionsIDD - Insulin Dep DiabetesOSBR - Open Spina Bifida RiskFor further inquiries contact [employer] at [phone].This test was developed and its performance characteristicsdetermined by [employer]. It has not been cleared or approvedby the Food and Drug Administration.Performed at: [facility] [employer] [id number] [place], [place] [id number] Director: Marissa Kovacs [facility], Phone: [phone] Alpha Fetoprotein Results Received Report . [facility] Gestational Age Calculation Method LMP . [facility] Comment on above: Recalculations are n ot recommended when gestational datingby LMP and ultrasound are within 10 days. Maternal Quad Test Risk 6916 . [facility] Maternal Race . [facility] Multiple No . [facility] Serum or plasma aqdrs-3-woal protein measurement (mass/volume)on 04-29-2024 AFP [Mass/Vol] Serum or plasma fyudh-9-eutbgwngxko measurement (mass/volume) . [facility] TBH BOX TEST SENT OUTon BOX TEST SENT OUT [facility] ALL CBC WITH AUTO DIFFon BASOPHILS ABSOLUTE AUTO 0.0 [facility] Basophils/100 WBC (Bld) 0.5 % 0.2 - 2.0 % [facility] Eosinophils/100 WBC (Bld) 0.9 % 0.9 - 7.0 % [facility] Erythrocyte distribution width (RBC) [Ratio] 11.9 % 11.0 - 15.0 % [facility] IMMATURE GRANULOCYTES ABS AUTO 0.02 [facility] Immature granulocytes/100 WBC (Bld) 0.3 % 0.0 - 0.5 % [facility] Interpretation and review of laboratory results Abnormal [facility] LYMPHOCYTES ABSOLUTE AUTO 1.8 [facility] Lymphocytes/100 WBC (Bld) 27.4 % 20.5 - 60.0 % [facility] MCH (RBC) [Entitic mass] 32.2 pg 26.7 - 34.0 pg [facility] MCHC (RBC) [Mass/Vol] 34.0 g/dL 29.9 - 35.2 g/dL [facility] MCV (RBC) [Entitic vol] 94.4 fL 81.0 - 99.0 fL [facility] MONOCYTES ABSOLUTE AUTO 0.3 [facility] Monocytes/100 WBC (Bld) 5.1 % 1.7 - 12.0 % [facility] NEUTROPHILS ABSOLUTE AUTO 4.4 [facility] Neutrophils/100 WBC (Bld) 65.8 % 43.0 - 75.0 % [facility] Platelet mean volume (Bld) [Entitic vol] 9.4 fL Low 9.5 - 13.5 fL [facility] TBH EO # 0.1 [facility] PLT 215 [facility] RBC 3.95 Low [facility] WBC 6.6 [facility] CBC without diffon Rbc Mcv (Fl) By Automated Count 94.4 [facility] Drug Screen, Urineon 024 Amphetamine/Methamp hetamine Negative [facility] Barbiturate Screen Urine Negative [facility] Benzodiazepine Screen, Urine Negative [facility] Cocaine Metabolite Negative [facility] Mdma Negative [facility] Methadone,Meconium Negative [facility] Opiate Quantitative Urine Negative [facility] Oxycodone Negative [facility] Phencyclidine Negative [facility] Thc Marijuana, Urine Negative [facility] Laboratory - Hematology and Cell countson 02-16-2024 Hematocrit (Bld) [Volume fraction] 37.3 % [facility] Hemoglobin (Bld) [Mass/Vol] 12.7 g/dL [facility] No Panel Informationon 02-15 [facility] Rubella IGG immune statuson 02-16-2024 Rubella [address] IgG 3.94 [facility] Syphilis Total(Unknown Syphi lis Status)on 02-16-2024 Syphilis Non-Reactive [facility] HCG ( test) Ql (U)o n 02-12-2024 Interpretation and review of laboratory results Abnormal [facility] Preg Test, Ur Positive [facility] Urinalysis macro (dipstick) panel (U)on 02-12-2024 Bilirubin, UA Negative Negative - 4(70) +++ mg/dL [facility] Blood, UA Negative Negative - 50 Ulises/mcL [facility] Clarity, UA Clear [facility] Color, UA Yellow [facility] Glucose, UA Negative Negative - 1999(110) ++++ mg/dL [facility] Interpretation and review of laboratory results Normal [facility] Ketones, UA Negative Negative - 160(16) ++++ mg/dL [facility] Leukocytes, UA Negative Negative - 500+++ Clair/mcL [facility] Nitrite, UA Negative Negative - Positive [facility] pH, UA 6.5 5 - 9 [facility] Protein, UA Negative Negative - 1999(20) ++++ mg/dL [facility] Spec Grav, UA 1.015 1 - 1.03 [facility] Urobilinogen, UA 1.0 0.2 - 12 mg/dL [facility] No Panel Informationon 11-29 Human Chorionic Gonadotropin, Quant 2 mIU/mL [facility] Comment on above: 5-50 0.2-1 XXPD20-46 0 1-2 IQGNR172-8,000 2-3 ESCHP783-31,000 3-4 WEEKS1,000-50,000 4-5 WEEKS10,000-100,000 5-6 WEEKS15,000-200,000 6-8 WEEKS10,000-100,000 2-3 MONTHS No Panel Informationon 11-22 Human Chorionic Gonadotropin, Quant 3 mIU/mL [facility] Comment on above: 5-50 0.2-1 APBD27-90 0 1-2 MPDCX595-2,000 2-3 VSXBO414-90,000 3-4 WEEKS1,000-50,000 4-5 WEEKS10,000-100,000 5-6 WEEKS15,000-200,000 6-8 WEEKS10,000-100,000 2-3 MONTHS No Panel Informationon 11-16 Human Chorionic Gonadotropin, Quant 6 mIU/mL [facility] Comment on above: 5-50 0.2-1 YTQR91-44 0 1-2 WIIFS822-6,000 2-3 IRPGM886-32,000 3-4 WEEKS1,000-50,000 4-5 WEEKS10,000-100,000 5-6 WEEKS15,000-200,000 6-8 WEEKS10,000-100,000 2-3 MONTHS No Panel Informationon 11-08 Human Chorionic Gonadotropin, Quant 27 mIU/mL [facility] Comment on above: 5-50 0.2-1 NOVF72-77 0 1-2 ERCMZ560-2,000 2-3 MBORS294-32,000 3-4 WEEKS1,000-50,000 4-5 WEEKS10,000-100,000 5-6 WEEKS15,000-200,000 6-8 WEEKS10,000-100,000 2-3 MONTHS Basophils Auto (Bld) [#/Vol] on 10-23-2023 Basophils (Bld) [#/Vol] 0.0 10 3/uL 0.0-0.1 [facility] Basophils/100 WBC Auto (Bld) on 10-23-2023 Basophils/100 WBC (Bld) 0.8 % 0.2-2.0 [facility] Eosinophils/100 WBC Auto (Bl d)on 10-23-2023 Eosinophils/100 WBC (Bld) 1.4 % 0.9-7.0 [facility] Erythrocyte distribution wid th Auto (RBC) [Ratio]on 10-23-2023 Erythrocyte distribution width (RBC) [Ratio] 11.9 % 11.0-15.0 [facility] Hematocrit Auto (Bld) [Volum e fraction]on 10-23-2023 Hematocrit (Bld) [Volume fraction] 36.0 % 36.0-48.0 [facility] Hemoglobin [Mass/volume] in Bloodon 10-23-2023 Hemoglobin (Bld) [Mass/Vol] 11.8 g/dL 12.0-16.0 [facility] Krzysztof 10-23-2023 L Specimen: [id number] R eceived: 10/26/23 Status: MAIA Newell Num: [id number] Spec Type: Surgical Subm Dr: Scooby Vega Tissues: A Products of Conception - Spontaneous or Missed (POC) Procedures: HE/3, Gross/Micro L4 Age/ Patient Sex Location Account Attending Physician Raphael Elizabeth 37/F LABELL [id number] Scooby Vega SPEC NUM: [id number] RECD: 10/26/23 STATUS: MAIA NEWELL NUM: [id number] JANIE: 10/23/[address]: Scooby Vega ENTERED: 10/26/[address] [facility] [address]: H[facility]ctor,Lab SPEC TYPE: Surgical DEPT: POOJA [...] cm possible area of villous tissue identified. Driver Education Instructor sections to include the possible villous tissue are submitted in A1?A3. Clinical history: Missed CPT Codes 59104 -------- -------- Specimen: [id number] Received: 10/26/231305 Status: MAIA Newell Num: [id number] Spec Type: Surgical Subm Dr: Scooby Vega Tissues: A Products of Conception - Spontaneous or Missed (POC) Procedures: Zander SINGLETON/Dannie L4 -------- Patient: Raphael Elizabeth [id number] (Continued) -------- Signed (signature on file) Dante Palacios MD 10/27/23 7115 Normal [facility] Laboratory - Hematology and Cell countson 10-23-2023 Immature granulocytes/100 WBC (Bld) 0.2 % 0.0-0.5 [facility] Leukocytes [#/volume] correc leroy for nucleated erythrocytes in Blood by Automated counon 10-23-2023 WBC corrected for nucl RBC Auto (Bld) [#/Vol] 5.1 10 3/uL 4.0-11.0 [facility] Lymphocytes Auto (Bld) [#/Vo l]on 10-23-2023 Lymphocytes (Bld) [#/Vol] 1.7 10 3/uL 1.2-3.8 [facility] Lymphocytes/100 WBC Auto (Bl d)on 10-23-2023 Lymphocytes/100 WBC (Bld) 32.8 % 20.5-60.0 [facility] MCH Auto (RBC) [Entitic mass ]on 10-23-2023 MCH (RBC) [Entitic mass] 31.1 pg 26.7-34.0 [facility] MCHC Auto (RBC) [Mass/Vol]on 10-23-2023 MCHC (RBC) [Mass/Vol] 32.8 g/dL 29.9-35.2 [facility] MCV Auto (RBC) [Entitic vol] on 10-23-2023 MCV (RBC) [Entitic vol] 95.0 fL 81.0-99.0 [facility] Monocytes Auto (Bld) [#/Vol] on 10-23-2023 Monocytes (Bld) [#/Vol] 0.3 10 3/uL 0.3-0.8 [facility] Monocytes/100 WBC Auto (Bld) on 10-23-2023 Monocytes/100 WBC (Bld) 5.5 % 1.7-12.0 [facility] Neutrophils Auto (Bld) [#/Vo l]on 10-23-2023 Neutrophils (Bld) [#/Vol] 3.0 10 3/uL 1.4-6.5 [facility] Neutrophils/100 WBC Auto (Bl d)on 10-23-2023 Neutrophils/100 WBC (Bld) 59.3 % 43.0-75.0 [facility] No Panel Informationon 10-22 Eosinophils # (Auto) 0.1 10 3/uL 0.0-0.7 [facility] Immature Granulocyte # (Auto) 0.01 10 3/uL 0.00-0.03 [facility] Platelet mean volume Auto (B ld) [Entitic vol]on 10-23-2023 Platelet mean volume (Bld) [Entitic vol] 9.0 fL 9.5-13.5 [facility] Platelets Auto (Bld) [#/Vol] on 10-23-2023 Platelets (Bld) [#/Vol] 182 10 3/uL 150-450 [facility] RBC Auto (Bld) [#/Vol]on RBC (Bld) [#/Vol] 3.79 10 6/uL 4.20-5.40 [facility] No Panel Informationon 10-11 Human Chorionic Gonadotropin, Quant 67454 mIU/mL [facility] Comment on above: 5-50 0.2-1 PPLX04-57 0 1-2 SWRZV520-0,000 2-3 BVOEE428-24,000 3-4 WEEKS1,000-50,000 4-5 WEEKS10,000-100,000 5-6 WEEKS15,000-200,000 6-8 WEEKS10,000-100,000 2-3 MONTHS No Panel Informationon 10-06 Human Chorionic Gonadotropin, Quant 33880 mIU/mL [facility] Comment on above: 5-50 0.2-1 TJZH87-59 0 1-2 TKHWH542-2,000 2-3 VXVOG460-88,000 3-4 WEEKS1,000-50,000 4-5 WEEKS10,000-100,000 5-6 WEEKS15,000-200,000 6-8 WEEKS10,000-100,000 2-3 MONTHS No Panel Informationon 10-04 Human Chorionic Gonadotropin, Quant 12038 mIU/mL [facility] Comment on above: 5-50 0.2-1 KDOM07-81 0 1-2 CWLYU753-6,000 2-3 KWHWW510-99,000 3-4 WEEKS1,000-50,000 4-5 WEEKS10,000-100,000 5-6 WEEKS15,000-200,000 6-8 WEEKS10,000-100,000 2-3 MONTHS PAP ACOG PANEL 2: 30 to 65on 03-11-2022 . . Normal [facility] Comment on above: Result Comment: Perf ormed at: WB Performed By: #### [id number] #### [facility] [address] [place] [address] Dr. Dnani Jacobs Age Gdln ACOG Testing 30-65 Normal [facility] Comment on above: Performed By: #### [id number] #### [facility] [address] [place] [address] Dr. Danni Jacobs DIAGNOSIS: Comment Normal [facility] Comment on above: Result Comment: NEGA TIVE FOR INTRAEPITHELIAL LESION OR MALIGNANCY. THIS SPECIMEN WAS RESCREENED PART OF OUR [employer] PROGRAM. Performed at: WB Performed By: #### [id number] #### [facility] [address] [place] [address] Dr. Danni Jacobs HPV Aptima Negative Normal Negative [facility] Comment on above: Result Comment: This nucleic acid amplification test detects fourteen high-risk HPV types (16,18,31,33,35,39,45,51,52,56,58,59,66,68) without differentiation. Performed at: =G Performed By: #### [id number] #### [facility] [address] [place] [address] Dr. Danni Jacobs Methodology: Comment Normal [facility] Comment on above: Result Comment: This liquid based ThinPrep(R) pap test was screened with the use of an image guided system. Performed at: WB Performed By: #### [id number] #### [facility] [address] [place] [address] Dr. Danni Jacobs Note: Comment Normal [facility] Comment on above: Result Comment: The Pap smear is a screening test designed to aid in the detection of premalignant and malignant conditions of the uterine cervix. It is not a diagnostic procedure and should not be used as the sole means of detecting cervical cancer. Both false-positive and false-negative reports do occur. . Performed at: WB Performed By: #### [id number] #### [facility] [address] [address] [address] aDnni Jacobs Performed by: Comment Normal [facility] Comment on above: Result Comment: Rocky Hull, Child And Adolescent Psychiatrist (ASCP) Performed at: WB Performed By: #### [id number] #### [facility] [address] [address] [address] Danni Jacobs QC reviewed by: Comment Normal [facility] Comment on above: Result Comment: Betzaida Ge, Supervisory Child And Adolescent Psychiatrist (ASCP) Performed at: WB Performed By: #### [id number] #### [facility] [address] [address] [address] Danni Jacobs Specimen adequacy: Comment Normal [facility] Comment on above: Result Comment: Sati sfactory for evaluation. Endocervical and/or squamous metaplastic cells (endocervical component) are present. Performed at: WB Performed By: #### [id number] #### [facility] [address] [address] [address] Danni Jacobs GLUCOSE BLOODon 04-22-2021 Glucose [Mass/Vol] 99 mg/dL Normal 74-106 [facility] Comment on above: Performed By: #### G YOSEPH, LIPID #### [facility] [address] [place] [address] Dr. Danni Jacobs LIPID PROFILEon 04-22-2021 CHOL-HDL RATIO NORM SEE BELOW Normal [facility] Comment on above: Result Comment: 3.3 - 4.4 LOW RISK 4.4 - 7.1 AVERAGE RISK 7.1 - 11.0 MODERATE RISK >11.0 HIGH RISK Performed By: #### G YOSEPH, LIPID #### [facility] [address] [address] [address] Danni Jacobs Cholesterol [Mass/Vol] 157 mg/dL Normal <=200 [facility] Comment on above: Performed By: #### G YOSEPH, LIPID #### [facility] [address] [address] [address] Danni Jacobs Cholesterol in HDL [Mass/Vol] 74 mg/dL Normal [facility] Comment on above: Performed By: #### G YOSEPH, LIPID #### [facility] [address] [address] [address] Danni Jacobs Cholesterol in LDL [Mass/Vol] 71.2 mg/dL Normal [facility] Comment on above: Performed By: #### G YOSEPH, LIPID #### [facility] [address] [address] [address] Danni Jacobs Cholesterol.total/C holesterol in HDL [Mass ratio] 2.1 {ratio} Normal [facility] Comment on above: Performed By: #### G YOSEPH, LIPID #### [facility] [address] [address] [address] Danni Jacobs HDL NORMAL > or = 60 mg/dl - LO W CARDIOVASCULAR RISK <40 mg/dl - HIGH CARDIOVASCULAR RISK Normal [facility] Comment on above: Performed By: #### G YOSEPH, LIPID #### [facility] [address] [place] [address] Dr. Danni Jacobs LDL CALC NORMAL SEE BELOW Normal [facility] Comment on above: Result Comment: <100 mg/dl OPTIMAL 100 - 129 mg/dl NEAR OR ABOVE OPTIMAL 130 - 159 mg/dl BORDERLINE HIGH 160 - 189 mg/dl HIGH >190 mg/dl VERY HIGH Performed By: #### G YOSEPH, LIPID #### [facility] [address] [place] [address] Dr. Danni Jacobs Triglyceride [Mass/Vol] 59 mg/dL Normal <=150 [facility] Comment on above: Performed By: #### G YOSEPH, LIPID #### [facility] [address] [place] [address] Dr. Danni Jacobs VLDL CALC 11.8 mg/dL Normal [facility] Comment on above: Performed By: #### G YOSEPH, LIPID #### [facility] [address] [place] [address] Dr. Danni Jacobs Vital Signs Date Time Vital Sign Value Performing Clinician Jakobi lity 08-01-2024 13:55-0500 Body mass index (BMI) [Ratio] 22.87 kg/m2 Scooby Gary Agensys Work Phone: [facility] 08-01-2024 13:55-0500 Body weight 66.22 kg Scooby Gary DO Work Phone: [facility] 08-01-2024 13:55-0500 Diastolic blood pressure 74 mm[Hg] Scooby Gary DO Work Phone: [facility] 08-01-2024 13:55-0500 Systolic blood pressure 116 mm[Hg] Scooby Gary DO Work Phone: [facility] 07-18-2024 15:05-0500 Body mass index (BMI) [Ratio] 22.84 kg/m2 Scooby Gary DO Work Phone: [facility] 07-18-2024 15:05-0500 Body weight 66.13 kg Scooby Gary DO Work Phone: [facility] 07-18-2024 15:05-0500 Diastolic blood pressure 70 mm[Hg] Scooby Gary DO Work Phone: [facility] 07-18-2024 15:05-0500 Systolic blood pressure 118 mm[Hg] Scooby Gary DO Work Phone: [facility] 06-30-2024 12:01-0500 Body mass index (BMI) [Ratio] 22.26 kg/m2 Scooby Gary DO Work Phone: [facility] 06-30-2024 12:01-0500 Body weight 64.47 kg Scooby Gary DO Work Phone: [facility] 06-30-2024 12:01-0500 Diastolic blood pressure 70 mm[Hg] Scooby Gary DO Work Phone: [facility] 06-30-2024 12:01-0500 Systolic blood pressure 110 mm[Hg] Scooby Gary DO Work Phone: [facility] 06-02-2024 10:45-0500 Body mass index (BMI) [Ratio] 21.9 kg/m2 Scooby Gary DO Work Phone: [facility] 06-02-2024 10:45-0500 Body weight 63.41 kg Scooby Gary DO Work Phone: [facility] 06-02-2024 10:45-0500 Diastolic blood pressure 72 mm[Hg] Scooby Gary DO Work Phone: [facility] 06-02-2024 10:45-0500 Systolic blood pressure 116 mm[Hg] Scooby Gary DO Work Phone: [facility] 05-27-2024 14:14-0500 Body height 170.2 cm Gracie Ramsey MD Work Phone: [facility] 05-27-2024 14:14-0500 Body mass index (BMI) [Ratio] 22.08 kg/m2 Gracie Ramsey MD Work Phone: [facility] 05-27-2024 14:14-0500 Body weight 63.96 kg Gracie Ramsey MD Work Phone: [facility] 05-27-2024 14:14-0500 Diastolic blood pressure 63 mm[Hg] Gracie Ramsey MD Work Phone: [facility] 05-27-2024 14:14-0500 Heart rate 83 /min Gracie Ramsey MD Work Phone: [facility] 05-27-2024 14:14-0500 Systolic blood pressure 110 mm[Hg] Gracie Ramsey MD Work Phone: [facility] 05-02-2024 16:20-0500 Body mass index (BMI) [Ratio] 21.61 kg/m2 Emely COBB Work Phone: [facility] 05-02-2024 16:20-0500 Body weight 62.6 kg Emely COBB Work Phone: [facility] 05-02-2024 16:20-0500 Diastolic blood pressure 68 mm[Hg] Emely COBB Work Phone: [facility] 05-02-2024 16:20-0500 Systolic blood pressure 120 mm[Hg] Emely COBB Work Phone: [facility] 04-29-2024 11:40-0500 Body weight Jen Granados MD Work Phone: [facility] 04-04-2024 14:55-0400 Body mass index (BMI) [Ratio] 21.27 kg/m2 Scooby Gary DO Work Phone: [facility] 04-04-2024 14:55-0400 Body weight 61.6 kg Scooby Gary DO Work Phone: [facility] 04-04-2024 14:55-0400 Diastolic blood pressure 70 mm[Hg] Scooby Gary DO Work Phone: [facility] 04-04-2024 14:55-0400 Systolic blood pressure 116 mm[Hg] Scooby Gary DO Work Phone: [facility] 04-04-2024 08:54-0400 Body height 170.2 cm Ashley Shin MD Work Phone: [facility] 04-04-2024 08:54-0400 Body mass index (BMI) [Ratio] 19.73 kg/m2 Ashley Shin MD Work Phone: [facility] 04-04-2024 08:54-0400 Body weight 57.15 kg Ashley Shin MD Work Phone: [facility] 03-07-2024 10:47-0400 Body mass index (BMI) [Ratio] 20.07 kg/m2 Scooby Gary DO Work Phone: [facility] 03-07-2024 10:47-0400 Body weight 58.12 kg Scooby Gary DO Work Phone: [facility] 03-07-2024 10:47-0400 Diastolic blood pressure 68 mm[Hg] Scooby Gary DO Work Phone: [facility] 03-07-2024 10:47-0400 Systolic blood pressure 114 mm[Hg] Scooby Gary DO Work Phone: [facility] 12-01-2023 16:10-0400 Body height 170.18 cm Scooby Gary Work Phone: [facility] 12-01-2023 16:10-0400 Body mass index (BMI) [Ratio] 19.5 kg/m2 Scooby Gary Work Phone: [facility] 12-01-2023 16:10-0400 Body weight 56.69 kg Scooby Gary Work Phone: [facility] 12-01-2023 16:10-0400 Diastolic blood pressure 78 mm[Hg] Scooby Gary Work Phone: [facility] 12-01-2023 16:10-0400 Systolic blood pressure 112 mm[Hg] Scooby Gary Work Phone: [facility] Encounters Encounter Date Encounter Type Care Provider Facility Start: 08-01-2024 End: 08-01-2024 Clinisync Result Encounter Scooby Gary DO Work Phone: [facility] External Department Unsolicited Start: 08-01-2024 End: 08-01-2024 Clinisync Result Encounter Scooby Gary DO Work Phone: [facility] External Department Unsolicited Start: 08-01-2024 End: 08-01-2024 ambulatory SCOOBY GARY Not Available Start: 08-01-2024 End: 08-01-2024 flow sheet Scooby Gary DO Work Phone: [facility] Comment on above: Third trimester preg gali; 32 weeks gestation of Start: 07-18-2024 End: 07-18-2024 ambulatory SCOOBY GARY [...] 06-25-2024 ambulatory Jen Granados MD Work Phone: [facility] Work Phone: Start: 06-25-2024 End: 06-25-2024 Departed Referred eJn Granados MD Work Phone: [facility] Start: 06-25-2024 Non-patient / Non-visit Jen [facility]ados MD [facility] Work Phone: Start: 06-02-2024 End: 06-02-2024 Bamboo flowsheet Scooby Gary DO Work Phone: [facility] Start: 06-02-2024 End: 06-02-2024 Bamboo flowsheet Scooby Gayr DO Work Phone: [facility] Start: 06-02-2024 End: 06-02-2024 ambulatory SCOOBY VEGA Not Available Start: 06-02-2024 End: 06-02-2024 flow sheet Scooby Gary DO Work Phone: [facility] Comment on above: Second trimester pre gnancy; 23 weeks gestation of ; with normal glucose tolerance test (GTT); Diabetes mellitus screening; Gestational diabetes mellitus (GDM), antepartum, gestational diabetes method of control unspecified; Elevated glucose tolerance test Start: 05-27-2024 End: 05-27-2024 Office consultation new/estab patient 40 min Gracie Ramsey MD Work Phone: [facility] [place] Comment on above: Advanced maternal ag e, 1st , second trimester (Primary Dx); 23 weeks gestation of Start: 05-02-2024 Non-patient / Non-visit Jen Granados MD Work Phone: [facility] Work Phone: Start: 05-02-2024 End: 05-02-2024 ambulatory EMELY HUNTER Not Available Start: 05-02-2024 End: 05-02-2024 Patient encounter procedure Emely COBB Work Phone: [facility] Work Phone: Start: 05-02-2024 End: 05-02-2024 flow sheet Emely COBB Work Phone: [facility] Comment on above: Well woman exam with routine gynecological exam; Second trimester ; 19 weeks gestation of ; Vaginal discharge; STD exposure; Screening, , for anatomic survey Start: 05-02-2024 End: 05-02-2024 Bamboo flowsheet Emely COBB Work Phone: [facility] Start: 05-02-2024 End: 05-10-2024 Bamboo [...] / Non-visit Jen Granados MD Work Phone: [facility] [facility] Work Phone: Start: 04-08-2024 End: 04-08-2024 Chart abstracting Scanning Provider External Maternal- Medicine at [facility] Start: 04-04-2024 End: 04-04-2024 flow sheet Scooby [...] Start: 04-04-2024 End: 04-04-2024 ambulatory ASHLEY SHIN [facility] Start: 04-04-2024 End: 04-04-2024 Office outpatient visit 15 minutes Ashley Shin MD [facility] Comment on above: [...] CI PT Start: 02-08-2024 End: 02-08-2024 ambulatory [facility] Start: 02-08-2024 ambulatory [facility] Start: 12-01-2023 End: 12-01-2023 ambulatory Csooby Gary Work Phone: [facility] Work Phone: Start: 12-01-2023 End: 12-01-2023 Patient encounter procedure Scooby Gary Work Phone: [facility] Work Phone: Start: 11-30-2023 Non-patient / Non-visit Scooby Gary Work Phone: [facility] Work Phone: Start: 11-23-2023 Non-patient / Non-visit Scooby Gary Work Phone: [facility] Work Phone: Start: 11-17-2023 Non-patient / Non-visit Scooby Gary Work Phone: [facility] Work Phone: Start: 11-09-2023 Non-patient / Non-visit Scooby Gary Work Phone: [facility] Work Phone: Start: 11-09-2023 End: 11-09-2023 ambulatory EMELY HUNTER Not Available Start: 10-23-2023 End: 10-23-2023 ambulatory Scooby Gary [facility] Work Phone: Start: 10-23-2023 End: 10-23-2023 Departed Referred Scooby Gary Work Phone: [facility] Start: 10-23-2023 Non-patient / Non-visit Scooby Fragosoo Work Phone: [facility] Work Phone: Start: 10-12-2023 Non-patient / Non-visit Scooby Gary Work Phone: [facility] Work Phone: Start: 10-07-2023 Non-patient / Non-visit Scooby Gary Work Phone: [facility] Work Phone: Start: 10-05-2023 Non-patient / Non-visit Scooby Gary Work Phone: [facility] Work Phone: Start: 03-03-2022 End: 03-03-[address] SCOOBY VEGA Facility:[facility]1 Start: 04-28-2021 Encounter for genera l adult medical examination without abnormal findings DR DALTON LOGAN [facility] Start: 04-22-2021 End: 04-23-[address] DALTON LOGAN Facility:[facility] Start: 04-22-2021 End: 04-23-2021 Encounter for general adult medical examination without abnormal findings DR DALTON LOGAN Facility:[facility] Procedures Date Procedure Procedure Detail Performing Clinician Start: 08-01-2024 Urnls dip stick/tabl et rgnt non-auto w/o micrscp Scooby Gary DO Work Phone: Start: 08-01-2024 US OB BPP W NON-STRESS [...] Follow-up visit Follow-up ASHLEY SHIN Start: 02-26-2024 TBH BOX TEST SENT OUT C orevidal Fragosoo [...] malign ant neoplasm of cervix Pap Smear [facility] Start: 05-27-2025 Tobacco Screening Tobacco Screening [facility] Start: 04-04-2025 Adult BMI Screening Adult BMI Screen ing [facility] Start: 04-04-2025 Tobacco Screening Tobacco Screening [facility] Start: 02-07-2025 Adult BMI Screening Adult BMI Screen ing [facility] Start: 08-18-2024 End: 08-18-2024 Patient encounter procedure 08/18/2024 9:20 AM EST Routine [facility] [address] [facility] [place] [id number] Scooby Vega, DO [address] [place] [address] [facility] Start: 08-01-2024 End: 08-01-2024 Patient encounter procedure 08/01/2024 1:20 PM EST Routine [facility] [address] [place] [id number] Scooby Vega, DO [address] [place] [address] [facility] Start: 07-18-2024 End: 07-18-2024 Patient encounter procedure 07/18/2024 2:30 PM EST Routine [facility] [address] [place] [phone] Scooby Vega, DO [address] [place] [address] [facility] Start: 07-18-2024 End: 07-18-2025 US biophysical profile w non stress test US biophysical profile w non stress test Imaging Routine 30 weeks gestation of Third trimester Expected: 07/18/2024 (Approximate), Expires: 07/18/2025 [facility] Work Phone: Comment on above: Expected: 07/18/2024 (Approximate), Expires: 07/18/2025 Start: 06-30-2024 End: 06-30-2025 US biophysical profile w non stress test US biophysical profile w non stress test Imaging Routine Gestational diabetes mellitus (GDM), antepartum, gestational diabetes method of control unspecified Expected: 06/30/2024 (Approximate), Expires: 06/30/2025 [facility] Comment on above: Expected: 06/30/2024 (Approximate), Expires: 06/30/2025 Start: 06-30-2024 End: 06-30-2025 US for US OB follow up transabdominal approach Imaging Routine Gestational diabetes mellitus (GDM), antepartum, gestational diabetes method of control unspecified Expected: 06/30/2024, Expires: 06/30/2025 [facility] Work Phone: Comment on above: Expected: 06/30/2024 , Expires: 06/30/2025 Start: 06-30-2024 End: 06-30-2024 Patient encounter procedure 06/30/2024 11:50 AM EST Routine [facility] [address] [place] [address] Scooby Vega, DO [address] [facility] [place] [address] [facility] Start: 06-25-2024 Urine culture [facility] Start: 06-25-2024 Bacteria identified in Urine by Culture Urine Culture [facility] Start: 06-02-2024 End: 06-02-2025 CBC panel - Blood by Automated count CBC Lab Routine Diabetes mellitus screening Expected: 06/02/2024 (Approximate), Expires: 06/02/2025 [facility] Work Phone: Comment on above: Expected: 06/02/2024 (Approximate), Expires: 06/02/2025 Start: 06-02-2024 End: 06-02-2025 Measurement of glucose 1 hour after glucose challenge for glucose tolerance test Glucose tolerance, 1 hour Lab Routine Diabetes mellitus screening Expected: 06/02/2024 (Approximate), Expires: 06/02/2025 [facility] Comment on above: Expected: 06/02/2024 (Approximate), Expires: 06/02/2025 Start: 06-02-2024 End: 06-02-2024 Patient encounter procedure 06/02/2024 10:10 AM EST Routine [facility] [address] [place] [phone] Scooby Vega DO [address] [place] [address] [facility] Start: 05-27-2024 End: 05-27-2024 Patient encounter procedure [facility] [place] Start: 05-02-2024 End: 05-02-2024 Patient encounter procedure 05/02/2024 3:30 PM EST Routine [facility] [address] [place] [phone] Emely Hunter PA [address] [facility] [place] [address] [facility] Start: 05-02-2024 End: 10-30-2024 Alpha fetoprotein, maternal Alpha fetoprotein, maternal Lab Routine Second trimester 19 weeks gestation of Expected: 05/02/2024 (Approximate), Expires: 10/30/2024 [facility] Comment on above: Expected: 05/02/2024 (Approximate), Expires: 10/30/2024 Start: 05-02-2024 End: 05-02-2025 US for US OB ANATOMY SINGLE W US OB CERVICAL LENGTH Imaging Routine Screening, , for anatomic survey Expected: 05/02/2024 (Approximate), Expires: 05/02/2025 [facility] Comment on above: Expected: 05/02/2024 (Approximate), Expires: 05/02/2025 Start: 04-26-2024 End: 04-26-2024 Patient encounter procedure 04/26/2024 11:00 AM EST Office Visit [facility] [address] [place] [phone] Scooby Vega DO [address] [facility] [place] [address] [facility] Start: 04-04-2024 End: 04-04-2024 [...] Treatment [facility] [address] [facility] [address] [place] [address] Gretchen Moreno, PT [facility] Start: 03-23-2024 End: 03-23-2024 ambulatory 03/23/2024 1:00 PM EDT Treatment [facility] [address] [facility] [address] [place] [address] Gretchen Moreno, PT [facility] Start: 03-18-2024 End: 03-18-2024 ambulatory 03/18/2024 1:30 PM EDT Treatment [facility] [address] [facility] [address] [place] [address] Gretchen Moreno, PT [facility] Start: 03-11-2024 End: 03-11-2024 ambulatory 03/11/2024 1:30 PM EDT Treatment [facility] [address] [facility] [address] [place] [address] Gretchen Moreno, PT [facility] Start: 03-07-2024 End: 03-07-2024 Patient encounter procedure 03/07/2024 10:10 AM EDT Routine [facility] [address] [facility] [place] [address] Scooby Vega, DO [address] [facility] [place] [address] [facility] Start: 03-03-2024 End: 03-03-2024 ambulatory 03/03/2024 10:30 AM EDT Treatment [facility] [address] [facility] [address] [place] [address] Gretchen Moreno, PT [facility] Start: 02-26-2024 End: 02-26-2024 ambulatory 02/26/2024 1:30 PM EDT Treatment [facility] [address] [facility] [address] [place] [address] Gretchen Moreno, PT Arrived [facility] Comment on above: Arrived Start: 02-25-2024 End: 02-25-2024 ambulatory 02/25/2024 10:30 AM EDT Treatment [facility] [address] [facility] [address] [place] [address] Gretchen Moreno, PT [facility] Start: 02-21-2024 Influenza vaccination Influenza Vacc ine [facility] Start: 02-17-2024 End: 02-17-2024 ambulatory 02/17/2024 12:00 PM EDT Treatment [facility] [address] [facility] [address] [place] [address] Gretchen Moreno, PT [facility] Start: [...] AM EDT Initial [facility] [address] [facility] [place] [address] [facility] Start: 02-12-2024 End: 02-12-2024 Professional / ancillary services management 02/12/2024 10:00 AM EDT Ancillary Procedure [facility] [address] [facility] [place] [address] [facility] Start: 02-10-2024 End: 02-10-2024 ambulatory 02/10/2024 5:00 PM EDT Evaluation [facility] [address] [facility] [address] [place] [address] Gretchen Moreno, PT Arrived [facility] Comment on above: Arrived Start: 12-10-2008 Screening for malign ant neoplasm of cervix Pap Smear [facility] Start: 12-10-2006 DTaP,Tdap and Td Vaccines (1 - Tdap) DTaP,Tdap and Td Vaccines (1 - Tdap) [facility] Start: 1999 Depression Screening Depression Scre ening [facility] Start: 1999 Tobacco Screening Tobacco Screening [facility] Bacteria identified in Urine by Culture Urine culture Microbiology Routine Missed menses Ordered: 02/12/2024 [facility] Comment on above: Ordered: 02/12/2024 CBC W Auto Different ial panel - Blood CBC and differential Lab Routine Missed menses Ordered: 02/12/2024 [facility] Comment on above: Ordered: 02/12/2024 CHLAMYDIA TRACHOMATI S (GENITO/STI) CHLAMYDIA TRACHOMATIS (GENITO/STI) Lab Routine STD exposure Ordered: 05/02/2024 [facility] Comment on above: Ordered: 05/02/2024 Cytology Cervical or vaginal smear or scraping study Pap Smear Pathology and Cytology Routine Well woman exam with routine gynecological exam Ordered: 05/02/2024 [facility] Comment on above: Ordered: 05/02/2024 Hemoglobin A1c/Hemoglobin.total in Blood Hemoglobin A1c Lab Routine Missed menses Ordered: 02/12/2024 [facility] Comment on above: Ordered: 02/12/2024 Hepatitis B virus surface Ag [Presence] in Serum or Plasma by Immunoassay Hepatitis B surface antigen Lab Routine Missed menses Ordered: 02/12/2024 [facility] Comment on above: Ordered: 02/12/2024 Hepatitis C virus Ab [Presence] in Serum or Plasma by Immunoassay Hepatitis C antibody Lab Routine Missed menses Ordered: 02/12/2024 [facility] Comment on above: Ordered: 02/12/2024 HIV-1/HIV-2 antigen/antibody combination immunoassay HIV-1 and HIV-2 antibodies Lab Routine Missed menses Ordered: 02/12/2024 [facility] Comment on above: Ordered: 02/12/2024 Human papilloma viru s DNA [Presence] in Unspecified specimen by Probe with amplification HPV DNA probe, amplified Microbiology Routine Well woman exam with routine gynecological exam Ordered: 05/02/2024 [facility] Comment on above: Ordered: 05/02/2024 Neisseria gonorrhoea e DNA [Presence] in Unspecified specimen by JUAN ANTONIO with probe detection Neisseria gonorrhea DNA probe, direct Lab Routine STD exposure Ordered: 05/02/2024 [facility] Comment on above: Ordered: 05/02/2024 Reagin Ab [Presence] in Serum by RPR RPR Lab Routine Missed menses Ordered: 02/12/2024 [facility] Comment on above: Ordered: 02/12/2024 Rubella antibody, IgG Rubella an tibody, IgG Lab Routine Missed menses Ordered: 02/12/2024 [facility] Comment on above: Ordered: 02/12/2024 SURESWAB(R) ADVANCED VAGINITIS PLUS, TMA SURESWAB(R) ADVANCED VAGINITIS PLUS, TMA Pathology and Cytology Routine Vaginal discharge Ordered: 05/02/2024 [facility] Work Phone: Comment on above: Ordered: 05/02/2024 XR Hip - left 2 Views [facility] Payers Date Payer Category Payer Commercial Managed C are - POS [employer] [id number] 2022 Private Health Insurance [id number] 2022 Unknown NILAM JORGENSEN [id number] 2022-Present [phone] [address] [place] [phone] [id number] [id number] 1987 Unknown [id number] 2.16.840.1.199060.3.579. 2.593 1987 Unknown [id number] 2.16.840.1.278915.3.579. 2.593 1987 Unknown [id number] 2.16.840.1.830004.3.579. 2.6 1987 Unknown [id number] 2.16.840.1.842946.3.579. 2.1285 1987 Unknown [id number] 2.16.840.1.643186.3.579. 2.1285 1987 Unknown [id number] 2.16.840.1.217550.3.579. 2.1258 1987 Unknown [id number] 2.16.840.1.478156.3.579. 2.1258 1987 Unknown [id number] 2.840.1.860780.3.579. 2.1258 1987 Unknown [id number] 2.840.1.222783.3.579. 2.1258 1987 Unknown [id number] 2.840.1.886897.3.579. 2.1258 1987 Unknown [id number] 2.840.1.358528.3.579. 2.1258 1987 Unknown [id number] 2.840.1.335018.3.579. 2.1258 1987 Unknown [id number] 2.840.1.967022.3.579. 2.1258 1987 Unknown [id number] 2.840.1.432588.3.579. 2.1258 1987 Unknown [id number] 2.840.1.590739.3.579. 2.1258 1987 Unknown [id number] 2.840.1.083681.3.579. 2.1258 1987 Unknown [id number] 2.16840.1.111927.3.579. 2.1258 1987 Unknown [id number] 2.840.1.372576.3.579. 2.1258 1987 Unknown [id number] 2.16840.1.675159.3.579. 2.1259 1987 Unknown [id number] 2.16.840.1.936557.3.579. 2.1259 1987 Unknown [id number] 2.16.840.1.805712.3.579. 2.1259 1987 Unknown [id number] 2.16.840.1.140670.3.579. 2.1259 1959 Unknown [id number] Social History Date Type Detail Facility Tobacco smoking stat [facility] Unknown if ever smoked [facility] Work Phone: Start: 1985 Sex Assigned At Female [facility] Start: 02-26-2023 End: 04-04-2024 Tobacco smoking status NHIS Never smoked tobacco [facility] Start: 11-09-2023 End: 05-27-2024 History of Social function [facility] Start: 11-09-2023 End: 05-27-2024 Tobacco use panel [facility] Start: 01-01-2024 [facility] Start: 1985 Sex assigned at Not on file [facility] Start: 04-04-2024 Tobacco use and exposure Smokeless tobacco non-user [facility] Start: 04-04-2024 End: 05-27-2024 Alcoholic beverage intake Ex-drinker (finding) [facility] Childcare Unknown [facility] Start: 12-30-2023 Gender identity Identifies as female gender (finding) [facility] Start: 12-30-2023 Sexual orientation Heterosexual (finding) [facility] Start: 01-25-2015 End: 06-27-2024 Sex Female (finding) [facility] Tobacco smoking stat [facility] Unknown if ever smoked [facility] Work Phone: Medical Equipment Procedure Code Equipment Code Equipment Origin al Text Equipment Identifier Dates 1 strip by In Vi tro route Daily Use in the morning prior to breakfast, 1 hour after each meal for a total of 4times daily. [id number] Start: 06-02-2024 End: 07-02-2024 1 each by In Vit ro route Daily Use to check FSBS four times daily [id number] Start: 06-02-2024 End: 07-02-2024 Goals Date Patient Goal Desired Activity /State Personal health goal Clinical Notes 02-10-2024 to 08-01-2024 Kalie Aguilarloreta, [employer] - 08/01/2024 1:20 PM Abel Loera, [employer] - 07/18/2024 2:30 PM JORDYN Love - 06/30/2024 11:50 AM MARIA FERNANDABelle Villanueva, [facility] - 06/02/2024 10:10 AM EST Note Date & Type Note Facility 08-01-2024 History of Present illness Narrative Reason for [...] 81 mg, Daily Blood Glucose Monitoring Suppl ([employer] Glucometer) w/Device kit 1 kit, Does not [...] nursing note reviewed. Exam conducted with a knit tubing dyer present. Vitals: Estimated body mass index is 22.87 kg/m as calculated from the following: Height as of 04/21/23: 5' 7 . Weight as of this encounter: 146 lb. BP: 116/74 Patient's last menstrual period was 12/18/2023. ASSESSMENT & PLAN ICD-10-CM 1. Third trimester Z34.93 POCT urinalysis dipstick manually resulted 2. 32 weeks gestation of Z3A.32 Patient presents today for a routine obstetrics appointment. Patient is currently 32w3d with a Estimated Date of Delivery: 09/23/24. Discussed most recent ultrasound. Answered patients questions in regards to NST/BPP's. SIDDHARTHA ranges and what level is recommended for further monitoring. Discussed pediatricians and when to schedule with them. Patient to return to clinic in 2 weeks for routine OB appointment. Documented by Kalie Loera LPN on behalf of: Scooby Vega DO documented in this encounter [facility] 07-18-2024 History of Present illness Narrative Reason [...] 81 mg, Daily Blood Glucose Monitoring Suppl (D-[employer] Glucometer) w/Device kit 1 kit, Does not [...] nursing note reviewed. Exam conducted with a knit tubing dyer present. Vitals: Estimated body mass index is [...] of:Emely Hunter PA-C documented in this encounter [facility] 06-30-2024 History of Present illness Narrative [...] 81 mg, Daily Blood Glucose Monitoring Suppl ([employer] Glucometer) w/Device kit 1 kit, Does not [...] Scooby Vega DO documented in this encounter [facility] 06-02-2024 History of Present illness Narrative [...] nursing note reviewed. Exam conducted with a knit tubing dyer present. Vitals: Estimated body mass index is [...] Scooby Vega DO documented in this encounter [facility] 05-27-2024 History of Present illness Narrative [...] TESTS AND ULTRASOUND REPORTS: Referral records and [facility] chart were reviewed Pertinent Ultrasound findings [...] preeclampsia prevention as is recommended by the [place] [employer] Committee Opinion No. 743. 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 Thank you for allowing me to participate in the care of Raphael Elizabeth. If there any questions please do not hesitate to contact us. Gracie Ramsey MD Maternal- Medicine [facility] [address] [place] [address] [facility], the CDC, and other organizations representing maternal and public health professionals recommend that , , and lactating people and those considering receive the COVID-19 vaccination. Vaccination is the best method to reduce maternal and complications of SARS-CoV-2 infection. This document was created with Impraise technology. Though I make every effort to review the dictation as it is transcribed, on occasion the spoken word can be misinterpreted by the technology leading to inappropriate words, phrases, or sentences. This note is addressed to the requesting provider as a consultation for clinical guidance. Specific medical abbreviations are occasionally used and those are generally approved by the [place]?Board of?Obstetrics and?Gynecology?as well as?Cali aparicio abbreviations. The above plan of care was based solely on the diagnoses for which a consultation was requested. ?More frequent testing may be indicated based on her other medical/obstetrical conditions. The management of other or medical conditions is beyond the scope of requested consultation and will continue to be followed by the primary marine diesel technician or primary care provider. Note to [...] yes Have you been seen here at [facility] in a previous ? N/a Recent ER visits or hospitalizations? no Bring blood sugar log or meter with you today? (Please bring them with you for every visit at [facility]) n/a Flu vaccine (Apr-August)? no Any concerns that you would like me to mention to the provider today? no documented in this encounter [facility] 05-02-2024 History of Present illness Narrative Reason [...] nursing note reviewed. Exam conducted with a knit tubing dyer present. Vitals: Estimated body mass index is [...] obtained without difficulty and patient was given [facility] order to have obtained. Orders Placed [...] of: JORDYN Fonseca documented in this encounter [facility] 04-04-2024 History of Present illness Narrative [...] nursing note reviewed. Exam conducted with a knit tubing dyer present. Vitals: Estimated body mass index is [...] Aspirin. Discussed again in regards to seeing [facility] & referral will be completed. Patient to have NST/BPP starting at 32 weeks gestation. Patient will have Anatomy Scan done at [facility]. Patient is Rh Negative and [...] Scooby Vega DO documented in this encounter [facility] 04-04-2024 History of Present illness Narrative [...] with this plan. documented in this encounter [facility] 04-01-2024 History of Present illness Narrative [...] and it pops a lot randomly. Precautions: Daggett Subjective: Pt states overall, ROM has improved. [...] to be instructed in home exercise program. Alf Goals: To be met in 10 weeks [...] sign below. Date: documented in this encounter [facility] 03-23-2024 History of Present illness Narrative [...] and it pops a lot randomly. Precautions: [place]gett Subjective: Pt states range of motion of [...] to be instructed in home exercise program. Fur Tanner Goals: To be met in 10 weeks [...] sign below. Date: documented in this encounter [facility] 03-18-2024 History of Present illness Narrative [...] and it pops a lot randomly. Precautions: Daggett Subjective: Pt states she feels like her [...] to be instructed in home exercise program. Fur Tanner Goals: To be met in 10 weeks [...] sign below. Date: documented in this encounter [facility] 03-11-2024 History of Present illness Narrative [...] and it pops a lot randomly. Precautions: Daggett Subjective: Pt states overall she believes hip [...] to be instructed in home exercise program. Fur Tanner Goals: To be met in 10 weeks [...] sign below. Date: documented in this encounter [facility] 03-07-2024 History of Present illness Narrative [...] nursing note reviewed. Exam conducted with a knit tubing dyer present. Vitals: Estimated body mass index is [...] or undercooked meat, and stay away from [facility]. Patient has been consulted regarding any further do's and don'ts of . Patient voiced understanding and all questions and concerns were answered. Follow Up: Patient is to return in 4 weeks for routine OB appointment. Documented by Kalie Loera LPN on behalf of: Scooby Vega DO documented in this encounter [facility] 03-03-2024 History of Present illness Narrative [...] and it pops a lot randomly. Precautions: Daggett Subjective: Pt states she has been doing [...] to be instructed in home exercise program. Fur Tanner Goals: To be met in 10 weeks [...] sign below. Date: documented in this encounter [facility] 02-26-2024 History of Present illness Narrative [...] and it pops a lot randomly. Precautions: [place] Subjective: Pt states she was able to [...] to be instructed in home exercise program. Alf Goals: To be met in 10 weeks [...] sign below. Date: documented in this encounter [facility] 02-17-2024 History of Present illness Narrative [...] and it pops a lot randomly. Precautions: [place] Subjective: Pt states she has not done [...] to be instructed in home exercise program. Alf Goals: To be met in 10 weeks [...] sign below. Date: documented in this encounter [facility] 02-12-2024 History of Present illness Narrative [...] or undercooked meat, and stay away from [facility]. Patient has also been advised to not [...] Estee Cobb LPN documented in this encounter [facility] 02-10-2024 History of Present illness Narrative [...] and it pops a lot randomly. Precautions: [place]gett Subjective: left hip ant and lateral Pain: [...] to be instructed in home exercise program. Fur Tanner Goals: To be met in 10 weeks [...] Evaluation note No assessment inform ation available [facility] Work Phone: Evaluation note Diagnosis Onset Date Left hip pain acute [facility] Work Phone: Evaluation note* Diagnosis Pain of left hip- Primary Hip flexor tendinitis, left [facility] Diagnosis Pain of left hip- Primary Hip flexor tendinitis, left [facility] Diagnosis Femoroacetabular impingement of left hip- Primary [facility] Diagnosis Second trimester [...] for anatomic survey documented in this encounter [facility]* Diagnosis Advanced maternal age, 1st , second trimester- Primary 23 weeks gestation of documented in this encounter [facility]* Diagnosis Pain of left hip- Primary Hip flexor tendinitis, left [facility]* Diagnosis First trimester state, incidental Antepartum multigravida of advanced maternal age Nausea and vomiting in Unspecified vomiting of , unspecified as to episode of care documented in this encounter [facility]* Diagnosis Second trimester state, incidental 23 weeks gestation of with normal glucose tolerance test (GTT) Diabetes mellitus screening Screening for diabetes mellitus Gestational diabetes mellitus (GDM), antepartum, gestational diabetes method of control unspecified Elevated glucose tolerance test Impaired glucose tolerance test documented in this encounter [facility]* Diagnosis Missed menses documented in this encounter [facility]* Diagnosis Pain of left hip- Primary Hip flexor tendinitis, left documented in this encounter [facility]* Diagnosis Pain of left hip- Primary Hip flexor tendinitis, left documented in this encounter [facility]* Diagnosis 27 weeks gestation of Second trimester state, incidental Gestational diabetes mellitus (GDM), antepartum, gestational diabetes method of control unspecified documented in this encounter [facility]* Diagnosis 30 weeks gestation of Third trimester state, incidental [facility]* Diagnosis Third trimester state, incidental 32 weeks gestation of documented in this encounter [facility]ructionsNot on filedocumented in [facility]ructionsNot on filedocumented in [facility]ructionsNot on filedocumented in [facility] Purpose Family History No Family [...] CREATED AUTHOR AUTHOR'S ORGANIZ ATION 07/03/2024 [facility] DATE CREATED AUTHOR AUTHOR'S ORGANIZ ATION 08/03/2024 [facility] Care Teams (unrecognized sec tion and content) [...] Dates Scooby Vega Attending Provider Active Start: Pamela 2023 Team Status: Inactive Member Role Status Dates Jen Granados MD Primary Care Provide r, Attending Provider Active Start: December 01, 2023 End: December 01, 2023 Nurse Practitioner Home Assessments Relationship Specialty Start Date End Date Jen Granados MD [address] [place] [address] PCP - General Family Medicine 03/10/23 Nurse Practitioner Home Assessments Relationship Specialty Start Date End Date Jen Granados MD [address] [place] [address] PCP - General Family Medicine 03/10/23 Nurse Practitioner Home Assessments Relationship Specialty Start Date End Date Jen Granados MD [address] [place] [address] PCP - General Family Medicine 03/10/23 Nurse Practitioner Home Assessments Relationship Specialty Start Date End Date Jen Granados MD [address] [place] [phone] PCP - General Family Medicine 03/10/23 Nurse Practitioner Home Assessments Relationship Specialty Start Date End Date Jen Granados MD [address] [facility] [place] [address] PCP - General 02/03/24 Nurse Practitioner Home Assessments Relationship Specialty Start Date End Date Jen Granados MD [address] [facility] [place] [phone] PCP - General Family Medicine 03/10/23 Nurse Practitioner Home Assessments Relationship Specialty Start Date End Date Jen Granados MD [address] [facility] [place] [address] PCP - General 02/03/24 Nurse Practitioner Home Assessments Relationship Specialty Start Date End Date Jen Granados MD [address] [place] [facility] [address] PCP - General Family Medicine 03/10/23 Nurse Practitioner Home Assessments Relationship Specialty Start Date End Date Jen Granados MD [address] [place] [facility] [address] PCP - General Family Medicine 03/10/23 Nurse Practitioner Home Assessments Relationship Specialty Start Date End Date Jen Granados MD [address] [place] [facility] [address] PCP - General Family Medicine 03/10/23 Nurse Practitioner Home Assessments Relationship Specialty Start Date End Date Jen Granados MD [address] [facility] [place] [address] PCP - General 02/03/24 Nurse Practitioner Home Assessments Relationship Specialty Start Date End Date Jen Granados MD [address] [place] [facility] [address] PCP - General Family Medicine 03/10/23 Nurse Practitioner Home Assessments Relationship Specialty Start Date End Date Jen Granados MD [address] [place] [facility] [address] PCP - General Family Medicine 03/10/23 Nurse Practitioner Home Assessments Relationship Specialty Start Date End Date Jen Granados MD [address] [place] [facility] [phone] PCP - General Family Medicine 03/10/23 Nurse Practitioner Home Assessments Relationship Specialty Start Date End Date Jen Granados MD [address] [place] [facility] [address] PCP - General Family Medicine 03/10/23 Nurse Practitioner Home Assessments Relationship Specialty Start Date End Date Jen Granados MD [address] [place] [facility] [address] PCP - General Family Medicine 03/10/23 Nurse Practitioner Home Assessments Relationship Specialty Start Date End Date Jen Granados MD [address] [place] [facility] [address] PCP - General Family Medicine 03/10/23 Nurse Practitioner Home Assessments Relationship Specialty Start Date End Date Jen Granados MD [address] [place] [facility] [address] PCP - General Family Medicine 03/10/23 [...] June 25, 2024 End: June 25, 2024 Nurse Practitioner Home Assessments Relationship Specialty Start Date End Date Jen Granados MD [address] [place] [facility] [address] PCP - General Family Medicine 03/10/23 Nurse Practitioner Home Assessments Relationship Specialty Start Date End Date Jen Granados MD [address] [place] [facility] [address] PCP - General Family Medicine 03/10/23 Nurse Practitioner Home Assessments Relationship Specialty Start Date End Date Jen Granados MD [address] [place] [facility] [address] PCP - General Family Medicine 03/10/23 Nurse Practitioner Home Assessments Relationship Specialty Start Date End Date Jen Granados MD [address] [place] [phone] PCP - General Family Medicine 03/10/23 Nurse Practitioner Home Assessments Relationship Specialty Start Date End Date Jen Granados MD [address] [place] [phone] PCP - General Family Medicine 03/10/23 Goals [...] of left lower limb, excluding foot Procedures [place] PHYSICAL THERAPY EVALUATION LOW COMPLEX 20 MINS Ashley Shin MD [address] [place] [address] Gretchen Moreno PT Referral ID Status Reason Start Date Expiration Date V isits Requested Visits Authorized [id number] Authorized 02/10/2024 08/08/2024 99 99 Reason Comments [...] BE BASED ON THE PRIMARY CLINICAL RECORDS. [facility] [employer] [facility]. provides no warranty or guarantee of the accuracy or completeness of information in this document.
--- NOTE | 2024-08-05 19:04 | US_ITS ---
[address] [address] Patient Name: RAPHAEL GAMA MRN: [id number] date: 1985 Sex: F Assigned Patient Location: [facility] Current Patient Location: Accession/Order Number: [id number] Exam Date: 08/05/2024 19:09 Report Date: 08/06/2024 07:51 At the request of: BEVERLY SAHA Procedure: US OB BPP w non-stress EXAMINATION: US OB BPP w non-stress HISTORY: GESTATIONAL DIABETES MELLITUS O24.419 COMPARISON: No relevant comparison available. TECHNIQUE: Ultrasound biophysical profile was performed in the radiology department. non-reactive stress testing was performed by nursing staff in the birthing center. FINDINGS: BREATHING MOVEMENTS: 2 GROSS BODY MOVEMENTS: 2 TONE: 2 QUALITATIVE AMNIOTIC FLUID VOLUME: 2 PRESENTATION: CEPHALIC HEART RATE: 130.43 bpm AMNIOTIC FLUID VOLUME: 9.9 cm GESTATIONAL AGE: 33 weeks 0 days US/US OB BPP w non-stress IMPRESSION: Total biophysical profile score: 8 Electronically authenticated by: TIKA KIMBALL Date: 08/06/2024 07:51
[2024-08-05 19:36] VITALS: BP 118/66; PULSE 78
== END 2024-08-05 20:25 | disposition home or self-care (01) ==
LOC: US 00:19 → FBC 18:59
PROVIDERS: PCP Family Medicine; Visit Provider Obstetrics & Gynecology
DX: O24.419 Gestational diabetes mellitus in pregnancy, unspecified control (principal); Z3A.33 33 weeks gestation of pregnancy
CPT/HCPCS: 76818

== ENCOUNTER 2024-08-09 00:52 | Outpatient (OUT) | payer OTHER, SELFPAY ==
--- OUTSIDE RECORDS SUMMARY | 2024-08-09 00:56 | XMS_ITS | CCD ---
Author Organization [facility] Care Team Providers Care Catalogue Compiler Name Role Phone DOREEN, DR HOFFMAN Attending [...] Provider Jen Granados MD Primary Care Provider [phone] Jae Cervantes DO Attending Provider Unavailab Jae [...] SCOOBY Attending Unavailable MASON, GRETCHEN Attending Unavailable SHIN, [...] Drug Allergy 3 GI intolerance, GI Disturbance [facility] (3 sources) 12 Hour Decongestant Allergy to substance 3 Hives [facility] Medications Current Medications Medication Drug Class(es) [...] Monitoring Sup pl (D-Care Glucometer) w/Device kit (13 sources) Start: 06-02-2024 End: 06-02-2025 Blood Glucose [...] (Other) isopropyl alcohol 0.7 ml/ml medicated pad (13 sources) Start: 06-02-2024 Alcohol Swabs (Alcohol Prep [...] 02/12/2024 Discontinued (Other) omega-3 acid ethyl esters (nursing home) 1000 mg oral capsule (1 source) [...] 04-04-2024 Episodic Other and delivery including normal (19 sources) Second trimester ; Translations: [Encounter for [...] of ] 07-18-2024 Episodic Residual codes; unclassified (5 sources) Gestation period, 32 weeks; Translations: [32 weeks gestation of ] Onset: 08-01-2024 08-01-2024 Episodic Unclassified (1 source) New Patient Onset: 02-08-2024 Unclassified (19 sources) OB Reminders Onset: 05-02-2024 05-02-2024 Past [...] Range Facility OB BPP W NON-STRESS on 08-06-2024 [place] [address] Ultrasound Report Signed Patient: RAPHAEL ELIZABETH MR#: [id number] : 1985 Acct:[id number] Age/Sex: 38 / F ADM Date: 08/05/24 Loc: US Attending Dr: Scooby Vega D.O. Ordering Physician: Scooby Vega D.O. Date of Service: 08/05/24 Procedure(s): US OB BPP w non-stress Accession Number(s): [id number] cc: Jen Granados M.D.; Scooby Vega D.O. The [place] [address] Patient Name: RAPHAEL ELIZABETH MRN: [facility]:[id number] date: 1985 Sex: F Assigned Patient Location: [facility] Current Patient Location: Accession/Order Number: [id number] Exam Date: 08/05/2024 19:09 Report Date: 08/06/2024 07:51 At the request of: SCOOBY VEGA Procedure: US OB BPP w non-stress EXAMINATION: US OB BPP w non-stress HISTORY: GESTATIONAL DIABETES MELLITUS O24.419 COMPARISON: No relevant comparison available. TECHNIQUE: Ultrasound biophysical profile was performed in the radiology department. non-reactive stress testing was performed by nursing staff in the birthing center. FINDINGS: BREATHING MOVEMENTS: 2 GROSS BODY MOVEMENTS: 2 TONE: 2 QUALITATIVE AMNIOTIC FLUID VOLUME: 2 PRESENTATION: CEPHALIC HEART RATE: 130.43 bpm AMNIOTIC FLUID VOLUME: 9.9 cm GESTATIONAL AGE: 33 weeks 0 days US/US OB BPP w non-stress IMPRESSION: Total biophysical profile score: 8 Electronically authenticated by: TIKA KIMBALL Date: 08/06/2024 07:51 Dictated By: Tika Kimball M.D. Signed By: 08/06/24 0753 DD/ 0751 TD/TT: Principal Statistical Programmer: [facility] Radiology, Radiologi MD wilmer - 08/06/2024 [place] [address] Ultrasound Report Signed Patient: RAPHAEL ELIZABETH MR#: [id number] : 1985 Acct:[id number] Age/Sex: 38 / F ADM Date: 08/05/24 Loc: US Attending Dr: Scooby Vega D.O. Ordering Physician: Scooby Vega D.O. Date of Service: 08/05/24 Procedure(s): US OB BPP w non-stress Accession Number(s): [id number] cc: Jen Granados M.D.; Scooby Vega D.O. [place] [id number] Patient Name: RAPHAEL ELIZABETH MRN: [id number] date: 1985 Sex: F Assigned Patient Location: [facility] Current Patient Location: Accession/Order Number: [id number] Exam Date: 08/05/2024 19:09 Report Date: 08/06/2024 07:51 At the request of: SCOOBY VEGA Procedure: US OB BPP w non-stress EXAMINATION: US OB BPP w non-stress HISTORY: GESTATIONAL DIABETES MELLITUS O24.419 COMPARISON: No relevant comparison available. TECHNIQUE: Ultrasound biophysical profile was performed in the radiology department. non-reactive stress testing was performed by nursing staff in the birthing center. FINDINGS: BREATHING MOVEMENTS: 2 GROSS BODY MOVEMENTS: 2 TONE: 2 QUALITATIVE AMNIOTIC FLUID VOLUME: 2 PRESENTATION: CEPHALIC HEART RATE: 130.43 bpm AMNIOTIC FLUID VOLUME: 9.9 cm GESTATIONAL AGE: 33 weeks 0 days US/US OB BPP w non-stress IMPRESSION: Total biophysical profile score: 8 Electronically authenticated by: TIKA KIMBALL Date: 08/06/2024 07:51 Dictated By: Tika Kimball M.D. Signed By: 08/06/24 0753 DD/ 075 TD/TT: Principal Statistical Programmer: [facility] Radiology Study observation (narrative) [facility] US OB BPP W NON-STRESS Ordered By: Radiologist Radiology on 08-06-2024 [facility] Work Phone: US OB BPP W NON-STRESS on 08-01-[address] [address] Ultrasound Report Signed Patient: RAPHAEL ELIZABETH MR#: [id number] : 1985 Acct:[id number] Age/Sex: 38 / F ADM Date: 07/29/24 Loc: US Attending Dr: Scooby Vega D.O. Ordering Physician: Scooby Vega D.O. Date of Service: 07/29/24 Procedure(s): US OB BPP w non-stress Accession Number(s): [id number] cc: Jen Granados M.D.; Scooby Vega D.O. The [place] [id number] Patient Name: RAPHAEL ELIZABETH MRN: [facility]:[id number] date: 1985 Sex: F Assigned Patient Location: [facility] Current Patient Location: Accession/Order Number: [id number] Exam Date: 07/29/2024 19:04 Report Date: 08/01/2024 [...] Dictated By: Tika Kimball M.D. Signed By: 08/01/2414 DD/ 0 TD/TT: Principal Statistical Programmer: [facility] Radiology, Radiologi MD wilmer - 08/01/2024 The [place] [id number] Ultrasound Report Signed Patient: RAPHAEL ELIZABETH MR#: [id number] : 1985 Acct:[id number] Age/Sex: 38 / F ADM Date: 07/29/24 Loc: US Attending Dr: Scooby Vega D.O. Ordering Physician: Scooby Vega D.O. Date of Service: 07/29/24 Procedure(s): US OB BPP w non-stress Accession Number(s): [id number] cc: Jen Granados M.D.; Scooby Vega D.O. [place] [id number] Patient Name: RAPHAEL ELIZABETH MRN: [id number] date: 1985 Sex: F Assigned Patient Location: [facility] Current Patient Location: Accession/Order Number: [id number] Exam Date: 07/29/2024 19:04 Report Date: 08/01/2024 [...] M.D. Signed By: 08/01/24713 DD/ 0 TD/TT: Principal Statistical Programmer: [facility] Radiology Study observation (narrative) [facility] US OB BPP W NON-STRESS Ordered By: Radiologist Radiology on 08-01-2024 [facility] Work Phone: Urinalysis macro (dipstick) panel (U)on 08-01-2024 Bilirubin, UA Negative Negative - 4(70) +++ mg/dL [facility] Blood, UA Negative Negative - 50 Ulises/mcL [facility] Clarity, UA Clear [facility] Color, UA Yellow [facility] Glucose, UA Negative Negative - 1999(110) ++++ mg/dL [facility] Interpretation and review of laboratory results Abnormal [facility] Ketones, UA Negative Negative - 160(16) ++++ mg/dL [facility] Leukocytes, UA Trace Negative - 500+++ Clair/mcL [facility] Nitrite, UA Negative Negative - Positive [facility] pH, UA 7.5 5 - 9 [facility] Protein, UA Negative Negative - 1999(20) ++++ mg/dL [facility] Spec Grav, UA 1.015 1 - 1.03 [facility] Urobilinogen, UA 0.2 0.2 - 12 mg/dL [facility] Urinalysis macro (dipstick) panel (U)on 07-18-2024 Bilirubin, UA Negative Negative - 4(70) +++ mg/dL [facility] Blood, UA Negative Negative - 50 Ulises/mcL [facility] Clarity, UA Clear [facility] Color, UA Yellow [facility] Glucose, UA Negative Negative - 1999(110) ++++ mg/dL [facility] Interpretation and review of laboratory results Normal [facility] Ketones, UA Negative Negative - 160(16) ++++ mg/dL [facility] Leukocytes, UA Negative Negative - 500+++ Clair/mcL [facility] Nitrite, UA Negative Negative - Positive [facility] pH, UA 7 5 - 9 [facility] Protein, UA Negative Negative - 1999(20) ++++ mg/dL [facility] Spec Grav, UA 1.025 1 - 1.03 [facility] Urobilinogen, UA 0.2 0.2 - 12 mg/dL [facility] ALL CBC WITH AUTO DIFFon BASOPHILS ABSOLUTE AUTO 0 [facility] Basophils/100 WBC (Bld) 0.2 % 0.2 - 2.0 % [facility] Eosinophils/100 WBC (Bld) 0.9 % 0.9 - 7.0 % [facility] Erythrocyte distribution width (RBC) [Ratio] 13 % 11.0 - 15.0 % [facility] Hematocrit (Bld) [Volume fraction] 32.2 % Low 36.0 - 48.0 % [facility] Hemoglobin (Bld) [Mass/Vol] 10.9 g/dL Low 12.0 - 16.0 g/dL [facility] IMMATURE GRANULOCYTES ABS AUTO 0.13 High [facility] Immature granulocytes/100 WBC (Bld) 1.4 % High 0.0 - 0.5 % [facility] Interpretation and review of laboratory results Abnormal [facility] LYMPHOCYTES ABSOLUTE AUTO 1.4 [facility] Lymphocytes/100 WBC (Bld) 15.4 % Low 20.5 - 60.0 % [facility] MCH (RBC) [Entitic mass] 32.7 pg 26.7 - 34.0 pg [facility] MCHC (RBC) [Mass/Vol] 33.9 g/dL 29.9 - 35.2 g/dL [facility] MCV (RBC) [Entitic vol] 96.7 fL 81.0 - 99.0 fL [facility] MONOCYTES ABSOLUTE AUTO 0.5 [facility] Monocytes/100 WBC (Bld) 4.8 % 1.7 - 12.0 % [facility] NEUTROPHILS ABSOLUTE AUTO 7.2 High [facility] Neutrophils/100 WBC (Bld) 77.3 % High 43.0 - 75.0 % [facility] Platelet mean volume (Bld) [Entitic vol] 9.2 fL Low 9.5 - 13.5 fL [facility] TBH EO # 0.1 [facility] PLT 229 [facility] TB RBC 3.33 Low [facility] WBC 9.3 [facility] Urinalysis macro (dipstick) panel (U)on 06-30-2024 Bilirubin, UA Negative Negative - 4(70) +++ mg/dL [facility] Blood, UA Negative Negative - 50 Ulises/mcL [facility] Clarity, UA Clear [facility] Color, UA Yellow [facility] Glucose, UA Negative Negative - 2000(110) ++++ mg/dL [facility] Interpretation and review of laboratory results Abnormal [facility] Ketones, UA Negative Negative - 160(16) ++++ mg/dL [facility] Leukocytes, UA Trace Negative - 500+++ Clair/mcL [facility] Nitrite, UA Negative Negative - Positive [facility] pH, UA 8.5 5 - 9 [facility] Protein, UA Positive Negative - 1999(20) ++++ mg/dL [facility] Comment on above: trace Spec Grav, UA 1.015 1 - 1.03 [facility] Urobilinogen, UA 0.2 0.2 - 12 mg/dL [facility] Basophils/100 WBC Manual cnt (Bld)on 06-25-2024 Basophils/100 WBC (Bld) Basophils/100 leukocytes in Blood by Manual count Low 0.2-2.0 [facility] Eosinophils/100 WBC Manual c nt (Bld)on 06-25-2024 Eosinophils/100 WBC (Bld) Eosinophils/100 leukocytes in Blood by Manual count 0.9-7.0 [facility] Erythrocyte distribution wid th Auto (RBC) [Ratio]on 06-25-2024 Erythrocyte distribution width (RBC) [Ratio] Erythrocyte distribution width [Ratio] by Automated count 11.0-15.0 [facility] Estimated glomerular filtrat ion rate (GFR) non- Americanon 06-25-2024 GFR/1.73 sq M.predicted among non-blacks MDRD (S/P/Bld) [Vol rate/Area] Estimated glomerular filtration rate (GFR) non- >=60 mL/min/1.73 m 2 [facility] Hematocrit Auto (Bld) [Volum e fraction]on 06-25-2024 Hematocrit (Bld) [Volume fraction] Hematocrit [Volume Fraction] of Blood by Automated count Low 36.0-48.0 [facility] Hemoglobin [Mass/volume] in Bloodon 06-25-2024 Hemoglobin (Bld) [Mass/Vol] Hemoglobin [Mass/volume] in Blood Low 12.0-16.0 [facility] Laboratory - Chemistry and C hemistry - challengeon 06-25-2024 Calcium [Mass/Vol] 8.2 mg/dL Low 8.5-10.1 [facility] Chloride [Moles/Vol] 99 mmol/L 98-107 [facility] CO2 [Moles/Vol] 21.2 mmol/L 21.0-32.0 [facility] Creatinine [Mass/Vol] 0.89 mg/dL 0.55-1.02 [facility] GFR/1.73 sq M.predicted MDRD (S/P/Bld) [Vol rate/Area] mL/min/{1.73_m2} >=60 mL/min/1.73 m 2 [facility] Glucose [Mass/Vol] 98 mg/dL 74-106 [facility] Potassium [Moles/Vol] 3.7 mmol/L 3.5-5.1 [facility] Sodium [Moles/Vol] 130 mmol/L Low 136-145 [facility] Urea nitrogen [Mass/Vol] 7.0 mg/dL 7.0-18.0 [facility] Urea nitrogen/Creatinine [Mass ratio] 7.9 mg/mg [facility] Bilirubin Ql (U) Negative NEGATIVE [facility] Glucose (U) [Mass/Vol] Negative NEGATIVE [facility] Ketones Ql (U) 15 mg/dL Abnormal NEGATIVE [facility] pH (U) 7.5 [pH] 5.0-9.0 [facility] Specific gravity (U) [Rel density] 1.015 1.005-1.025 [facility] Urobilinogen Qn (U) 1.0 {Ree'U}/dL 0.2-1.0 [facility] Laboratory - Hematology and Cell countson 06-25-2024 Band form neutrophils/100 WBC (Bld) 2.0 % 0-5 [facility] Lymphocytes/100 WBC (Bld) 2.0 % Low 20.5-60.0 [facility] Monocytes/100 WBC (Bld) 5.0 % 1.7-12.0 [facility] Laboratory - Microbiology an d Antimicrobial susceptibilityon 06-25-2024 SARS-CoV-2 (COVID-19) RNA JUAN ANTONIO+probe Ql (Unsp spec) Negative NEGATIVE [facility] Comment on above: This test has [...] ationon 06-25-2024 Appearance (U) CLOUDY Abnormal CLEAR [facility] Color (U) DK YELLOW YELLOW [facility] Laboratory - Urinalysison Leukocyte esterase Test strip Ql (U) Negative NEGATIVE [facility] Nitrite Ql (U) Negative NEGATIVE [facility] Protein Ql (U) TRACE mg/dL NEG/TRACE [facility] Leukocytes [#/volume] correc leroy for nucleated erythrocytes in Blood by Automated counon 06-25-2024 WBC corrected for nucl RBC Auto (Bld) [#/Vol] Leukocytes [#/volume] corrected for nucleated erythrocytes in Blood by Automated coun 4.0-11.0 [facility] MCH Auto (RBC) [Entitic mass ]on 06-25-2024 MCH (RBC) [Entitic mass] MCH [Entitic mass] by Automated count 26.7-34.0 [facility] MCHC Auto (RBC) [Mass/Vol]on 06-25-2024 MCHC (RBC) [Mass/Vol] MCHC [Mass/volume] by Automated count 29.9-35.2 [facility] MCV Auto (RBC) [Entitic vol] on 06-25-2024 MCV (RBC) [Entitic vol] MCV [Entitic volume] by Automated count 81.0-99.0 [facility] No Panel Informationon 06-25 Absolute Basophils (Manual) 0.00 10 3/uL 0.00-0.10 [facility] Band Neutrophils # (Manual) 0.2 10 3/uL 0.0-0.3 [facility] Eosinophils # (Manual) 0.08 10 3/uL 0.00-0.70 [facility] Lymphocytes # (Manual) 0.16 10 3/uL Low 1.20-3.80 [facility] Monocytes # (Manual) 0.41 10 3/uL 0.30-0.80 [facility] Segmented Neutrophils # (Manual) 7.38 10 3/uL High 1.4-6.5 [facility] Urine Occult Blood Negative NEGATIVE [facility] Bedside Influenza Type A Antigen Positive Abnormal [facility] Comment on above: NOTE: Live attenuate d influenza vaccine viruses can cause apositive result for a rapid influenza diagnostic test ifadministered up to 7 days prior to rapid testing. Bedside Influenza Type B Antigen Negative [facility] Comment on above: Negative for Flu B p rotein antigen. Infection due to Flu Bcannot be ruled out. Flu B antigen in the sample may bebelow the detection limit of the test. Platelet mean volume Auto (B ld) [Entitic vol]on 06-25-2024 Platelet mean volume (Bld) [Entitic vol] Platelet mean volume [Entitic volume] in Blood by Automated count Low 9.5-13.5 [facility] Platelets Auto (Bld) [#/Vol] on 06-25-2024 Platelets (Bld) [#/Vol] Platelets [#/volume] in Blood by Automated count 150-450 [facility] RBC Auto (Bld) [#/Vol]on RBC (Bld) [#/Vol] Erythrocytes [#/volu me] in Blood by Automated count Low 4.20-5.40 [facility] Segmented neutrophils/100 WB C Manual cnt (Bld)on 06-25-2024 Segmented neutrophils/100 WBC (Bld) Manual blood segmented neutrophils/100 leukocytes High 43.0-75.0 [facility] Serum or plasma anion gap de terminationon 06-25-2024 Anion gap [Moles/Vol] Serum or plasma anion gap determination [facility] Urine Cultureon 06-25-2024 Bacteria identified Cx Nom (U) No Growth 2 Days PERFORMED BY: [facility] [address] [place] [address] PATHOLOGIST NEW ACCOUNTS BANKING REPRESENTATIVE DANTE PALACIOS M.D. Normal [facility] Comment on above: Performed By: #### C UU #### [facility] [address] [place] [id number] [facility] IGP,APTIMA HPV,AGE GDLNon AGE GDLN ACOG TESTING Note . [facility] Comment on above: TESTS RESULT FLAG UN ITS REF RANGE LAB Clinician Provided Cytology Information Source.............Cervix No. of containers..01 ThinPrep Vial Age Algo ACOG Annel... FLAG LEGEND: L-Low Normal,H-High Normal,LL-Alert Low,HH-Alert High <-Panic Low,>-Panic High,A-Abnormal,AA-Critical Abnormal Performed at: 01 =[address] [place] [address] Kathryn Maldonado MD, HPV APTIMA Negative Negative [facility] Comment on above: This nucleic acid am plification test detects fourteen high- risk HPV types (16,18,31,33,35,39,45,51,52,56,58,59,66,68) without differentiation. Performed at: =[address] [id number] [employer] Applier: Kathryn Maldonado MD, Phone: [phone] Performed at: [address] [id number] [employer] Applier: Kathryn Maldonado MD, Phone: [phone] IGP, APTIMA HPV, RFX 16/18,45 Note . [facility] Comment on above: TESTS RESULT FLAG UN ITS REF RANGE LAB DIAGNOSIS: 02 NEGATIVE FOR INTRAEPITHELIAL LESION OR MALIGNANCY. Specimen adequacy: 02 Satisfactory for evaluation. Endocervical and/or squamous metaplastic cells (endocervical component) are present. Performed by: 02 Thao Shankar, Licensed Direct Entry Midwife . 02 Note: Note 02 The Pap [...] Low,>-Panic High,A-Abnormal,AA-Critical Abnormal Performed at: [address] [address] Kathryn Maldonado MD, BRUSH-SPATULA CERVIX [facility] RECURRENT VAGINITIS (HTRX)on 05-05-2024 ATOPOBIUM VAGINAE 0 [facility] ATOPOBIUM VAGINAE Not detected [facility] BVAB 2,3 (BACTERIAL VAGINOSIS ASSOCIATED BACTERIA 2, 3); MOBILUNCUS SPP 0 [facility] BVAB 2,3 (BACTERIAL VAGINOSIS ASSOCIATED BACTERIA 2, 3); MOBILUNCUS SPP Not detected [facility] JED ALBICANS, PARAPSILOSIS, TROPICALIS 0 [facility] JED ALBICANS, PARAPSILOSIS, TROPICALIS Not detected [facility] JED GLABRATA 0 [facility] JED GLABRATA Not detected [facility] JED KRUSEI 0 [facility] JED KRUSEI Not detected [facility] CHLAMYDIA TRACHOMATIS 0 [facility] CHLAMYDIA TRACHOMATIS Not detected [facility] GARDNERELLA VAGINALIS 0 [facility] GARDNERELLA VAGINALIS Not detected [facility] MEGASPHAERA (TYPES 1, 2) 0 [facility] MEGASPHAERA (TYPES 1, 2) Not detected [facility] MYCOPLASMA GENITALIUM 0 [facility] MYCOPLASMA GENITALIUM Not detected [facility] NEISSERIA GONORRHOEAE 0 [facility] NEISSERIA GONORRHOEAE Not detected [facility] TRICHOMONAS VAGINALIS 0 [facility] TRICHOMONAS VAGINALIS Not detected [facility] Urinalysis macro (dipstick) panel (U)on 05-03-2024 Bilirubin, UA Negative Negative - 4(70) +++ mg/dL [facility] Blood, UA Negative Negative - 50 Ulises/mcL [facility] Clarity, UA Clear [facility] Color, UA Yellow [facility] Glucose, UA Negative Negative - 1999(110) ++++ mg/dL [facility] Interpretation and review of laboratory results Normal [facility] Ketones, UA Negative Negative - 160(16) ++++ mg/dL [facility] Leukocytes, UA Negative Negative - 500+++ Clair/mcL [facility] Nitrite, UA Negative Negative - Positive [facility] pH, UA 0.5 5 - 9 [facility] Protein, UA Negative Negative - 1999(20) ++++ mg/dL [facility] Spec Grav, UA 1.025 1 - 1.03 [facility] Urobilinogen, UA 1.0 0.2 - 12 mg/dL [facility] Human papilloma virus 16+18+ 31+33+35+39+45+51+52+56+58+59+66+68 DNA [Presence] in Denis 05-02-2024 HPV 16+18+31+33+35+39+4 5+51+52+56+58+59+66 +68 DNA Probe+sig amp Ql (Cvx) Human papilloma virus 16+18+31+33+35+39+45+51+52+5 6+58+59+66+68 DNA [Presence] in Cer Negative [facility] Comment on above: This nucleic acid am plification test detects fourteen high- risk HPV types (16,18,31,33,35,39,45,51,52,56,58,59,66,68)without differentiation.Performed at: =G - [facility] [address] [id number] Director: Kathryn Maldonado MD, Phone: [phone] at: - [facility] [address] [id number] Director: Kathryn Maldonado MD, Phone: [phone] No Panel Informationon 05-02 HPV High Risk Other Comment Note . [facility] Comment on above: TESTS RESULT FLAG UN ITS REF RANGE LAB JESE GNOSIS: 02 NEGATIVE FOR INTRAEPITHELIAL LESION OR MALIGNANCY.Specimen adequacy: 02 Satisfactory for evaluation. Endocervical and/or squamous metaplastic cells (endocervical component) are present.Performed by: 02 Thao Shankar, Licensed Direct Entry Midwife. 02Note: Note 02 The Pap smear is [...] Low,>-Panic High,A-Abnormal,AA-Critical Abnormal --Performed at:02 WB [facility] [address] [place] [address] Kathryn Maldonado MD, Reference Lab Test Patient Age Note . [facility] Comment on above: TESTS RESULT FLAG UN ITS REF RANGE LAB Clinician Provided Cytology Information Source.............Cervix No. of containers..01 ThinPrep VialAge Radhao TOMMY Annel... FLAG LEGEND: L-Low Normal,H-High Normal,LL-Alert Low,HH-Alert High <-Panic Low,>-Panic High,A-Abnormal,AA-Critical Abnormal --Performed at:01 =G [facility] [address] [place] [address] Kathryn Maldonado MD, AFP, SERUM, OPEN SPINA BIFID Aon 05-01-2024 AFP MOM 1.18 . [facility] AFP VALUE 61.8 ng/mL . [facility] COMMENT: Comment . [facility] Comment on above: Cydney Rodriguez , Ph.D., [facility] Director References: Available Upon Request. Multiples Of Median Cutoffs For AFP Elevations Chiang 2.5 Black 2.8 IDD 2.0 Twins 4.5 Abbreviation Definitions IDD - Insulin Dep Diabetes OSBR - Open Spina Bifida Risk For further inquiries contact [employer] at [phone]. This test was developed and its performance characteristics determined by [employer]. It has not been cleared or approved by the Food and Drug Administration. Performed at: [facility] [address], [place], [place] [id number] [employer] Applier: Marissa Kovacs [facility], Phone: [phone] GEST. AGE ON COLLECTION DATE 19.0 . weeks [facility] GESTAT. AGE BASED ON LMP . [facility] Comment on above: Recalculations are n ot recommended when gestational dating by LMP and ultrasound are within 10 days. INSULIN DEP DIABETES No . [facility] INTERPRETATION Comment . [facility] Comment on above: Interpretation: Scre en Negative [...] Customer Services to discuss available options. The [employer] recommends amniocentesis be offered to women age 35 and older. [age] [facility] MULTIPLE GESTATION No . [facility] OSBR RISK 1 IN 6916 . [facility] RACE . [facility] RESULTS Report . [facility] TEST RESULTS: Negative . [facility] WEIGHT 135 . lbs [facility] N N LMP [id number] 3 15 N 1 Y 135 N N N N N White/ [facility] Alpha-fetoprotein (AFP) paige urement (weoczhgt-vx-cxpklk)on 04-29-2024 AFP [MoM] Alpha-fetoprotein (A FP) measurement (vpcmvofj-ge-jvlphl) . [facility] Assess gestational ageon Gestational age Assess gestational age . [facility] Estimation of maternal age-s pecific risk of Down syndrome birthon 04-29-2024 Age [Time] Estimation of matern al age-specific risk of Down syndrome . [facility] Insulin dependent diabetes m ellitus detectionon 04-29-2024 Insulin dependent diabetes mellitus Ql Insulin dependent diabetes mellitus detection . [facility] Interpretation of serum or p lasma second trimester quad maternal screen (narrative reon 04-29-2024 Second trimester quad maternal screen Darshan [Interp] Interpretation of serum or plasma second trimester quad maternal screen (narrative re . [facility] Comment on above: Interpretation: Scre en [...] 04-29 AFP Triple Screen Comment Comment . [facility] Comment on above: Cydney Rodriguez , Ph.D., DABCCDirectorReferences: Available Upon Request.Multiples Of Median Cutoffs For AFP ElevationsSingleton 2.5 Black 2.8IDD 2.0 Twins 4.5 Abbreviation DefinitionsIDD - Insulin Dep DiabetesOSBR - Open Spina Bifida RiskFor further inquiries contact [employer] at [phone].This test was developed and its performance characteristicsdetermined by [employer]. It has not been cleared or approvedby the Food and Drug Administration.Performed at: [facility] [facility] [employer] [id number] [place], [place] [id number] Director: Marissa Kovacs [facility], Phone: [phone] Alpha Fetoprotein Results Received Report . [facility] Gestational Age Calculation Method LMP . [facility] Comment on above: Recalculations are n ot recommended when gestational datingby LMP and ultrasound are within 10 days. Maternal Quad Test Risk 6916 . [facility] Maternal Race . [facility] Multiple No . [facility] Serum or plasma kuvss-1-uiwx protein measurement (mass/volume)on 04-29-2024 AFP [Mass/Vol] Serum or plasma tuyza-7-mruysdoctnz measurement (mass/volume) . [facility] TB BOX TEST SENT OUTon BOX TEST SENT OUT [facility] ALL CBC WITH AUTO DIFFon BASOPHILS ABSOLUTE AUTO 0.0 [facility] Basophils/100 WBC (Bld) 0.5 % 0.2 - 2.0 % [facility] Eosinophils/100 WBC (Bld) 0.9 % 0.9 - 7.0 % [facility] Erythrocyte distribution width (RBC) [Ratio] 11.9 % 11.0 - 15.0 % [facility] IMMATURE GRANULOCYTES ABS AUTO 0.02 [facility] Immature granulocytes/100 WBC (Bld) 0.3 % 0.0 - 0.5 % [facility] Interpretation and review of laboratory results Abnormal [facility] LYMPHOCYTES ABSOLUTE AUTO 1.8 [facility] Lymphocytes/100 WBC (Bld) 27.4 % 20.5 - 60.0 % [facility] MCH (RBC) [Entitic mass] 32.2 pg 26.7 - 34.0 pg [facility] MCHC (RBC) [Mass/Vol] 34.0 g/dL 29.9 - 35.2 g/dL [facility] MCV (RBC) [Entitic vol] 94.4 fL 81.0 - 99.0 fL [facility] MONOCYTES ABSOLUTE AUTO 0.3 [facility] Monocytes/100 WBC (Bld) 5.1 % 1.7 - 12.0 % [facility] NEUTROPHILS ABSOLUTE AUTO 4.4 [facility] Neutrophils/100 WBC (Bld) 65.8 % 43.0 - 75.0 % [facility] Platelet mean volume (Bld) [Entitic vol] 9.4 fL Low 9.5 - 13.5 fL [facility] EO # 0.1 [facility] PLT 215 [facility] RBC 3.95 Low [facility] WBC 6.6 [facility] CBC without diffon Rbc Mcv (Fl) By Automated Count 94.4 [facility] Drug Screen, Urineon 024 Amphetamine/Methamp hetamine Negative [facility] Barbiturate Screen Urine Negative [facility] Benzodiazepine Screen, Urine Negative [facility] Cocaine Metabolite Negative [facility] Mdma Negative [facility] Methadone,Meconium Negative [facility] Opiate Quantitative Urine Negative [facility] Oxycodone Negative [facility] Phencyclidine Negative [facility] Thc Marijuana, Urine Negative [facility] Laboratory - Hematology and Cell countson 02-16-2024 Hematocrit (Bld) [Volume fraction] 37.3 % [facility] Hemoglobin (Bld) [Mass/Vol] 12.7 g/dL [facility] No Panel Informationon 02-15 [facility] Rubella IGG immune statuson 02-16-2024 Rubella immune IgG 3.94 [facility] Syphilis Total(Unknown Syphi lis Status)on 02-16-2024 Syphilis Non-Reactive [facility] HCG ( test) Ql (U)o n 02-12-2024 Interpretation and review of laboratory results Abnormal [facility] Preg Test, Ur Positive [facility] Urinalysis macro (dipstick) panel (U)on 02-12-2024 Bilirubin, UA Negative Negative - 4(70) +++ mg/dL [facility] Blood, UA Negative Negative - 50 Ulises/mcL [facility] Clarity, UA Clear [facility] Color, UA Yellow [facility] Glucose, UA Negative Negative - 1999(110) ++++ mg/dL [facility] Interpretation and review of laboratory results Normal [facility] Ketones, UA Negative Negative - 160(16) ++++ mg/dL [facility] Leukocytes, UA Negative Negative - 500+++ Clair/mcL [facility] Nitrite, UA Negative Negative - Positive [facility] pH, UA 6.5 5 - 9 [facility] Protein, UA Negative Negative - 1999(20) ++++ mg/dL [facility] Spec Grav, UA 1.015 1 - 1.03 [facility] Urobilinogen, UA 1.0 0.2 - 12 mg/dL [facility] No Panel Informationon 11-29 Human Chorionic Gonadotropin, Quant 2 mIU/mL [facility] Comment on above: 5-50 0.2-1 SARM15-68 0 1-2 WWIJE129-8,000 2-3 TBHNV358-00,000 3-4 WEEKS1,000-50,000 4-5 WEEKS10,000-100,000 5-6 WEEKS15,000-200,000 6-8 WEEKS10,000-100,000 2-3 MONTHS No Panel Informationon 11-22 Human Chorionic Gonadotropin, Quant 3 mIU/mL [facility] Comment on above: 5-50 0.2-1 CFKJ44-94 0 1-2 GIYSK686-3,000 2-3 VGFCE362-92,000 3-4 WEEKS1,000-50,000 4-5 WEEKS10,000-100,000 5-6 WEEKS15,000-200,000 6-8 WEEKS10,000-100,000 2-3 MONTHS No Panel Informationon 11-16 Human Chorionic Gonadotropin, Quant 6 mIU/mL [facility] Comment on above: 5-50 0.2-1 QNYW72-61 0 1-2 SXMQP907-9,000 2-3 QUKXM134-63,000 3-4 WEEKS1,000-50,000 4-5 WEEKS10,000-100,000 5-6 WEEKS15,000-200,000 6-8 WEEKS10,000-100,000 2-3 MONTHS No Panel Informationon 11-08 Human Chorionic Gonadotropin, Quant 27 mIU/mL [facility] Comment on above: 5-50 0.2-1 WFYN08-68 0 1-2 HWLZM321-5,000 2-3 VDDWW024-57,000 3-4 WEEKS1,000-50,000 4-5 WEEKS10,000-100,000 5-6 WEEKS15,000-200,000 6-8 WEEKS10,000-100,000 2-3 MONTHS Basophils Auto (Bld) [#/Vol] on 10-23-2023 Basophils (Bld) [#/Vol] 0.0 10 3/uL 0.0-0.1 [facility] Basophils/100 WBC Auto (Bld) on 10-23-2023 Basophils/100 WBC (Bld) 0.8 % 0.2-2.0 [facility] Eosinophils/100 WBC Auto (Bl d)on 10-23-2023 Eosinophils/100 WBC (Bld) 1.4 % 0.9-7.0 [facility] Erythrocyte distribution wid th Auto (RBC) [Ratio]on 10-23-2023 Erythrocyte distribution width (RBC) [Ratio] 11.9 % 11.0-15.0 [facility] Hematocrit Auto (Bld) [Volum e fraction]on 10-23-2023 Hematocrit (Bld) [Volume fraction] 36.0 % 36.0-48.0 [facility] Hemoglobin [Mass/volume] in Bloodon 10-23-2023 Hemoglobin (Bld) [Mass/Vol] 11.8 g/dL 12.0-16.0 [facility] Krzysztof 10-23-2023 L Specimen: [id number] eceived: 10/26/23 [facility] Num: [id number] Spec Type: Surgical Subm Dr: Scooby Vega Tissues: A Products of Conception - Spontaneous or Missed (POC) Procedures: HE/3, Gross/Micro L4 Age/ Patient Sex Location Account Attending Physician Raphael Elizabeth 37/F LABELL [id number] Scooby Vega SPEC NUM: [id number] RECD: 10/26/23 STATUS: [facility] NUM: [id number] JANIE: 10/23/[address]: Scooby Vega ENTERED: [...] cm possible area of villous tissue identified. Program Director Scouting sections to include the possible villous tissue are submitted in A1?A3. Clinical history: Missed CPT Codes 90925 -------- -------- Specimen: [id number] Received: 10/26/23 Status: [facility] New[facility] Num: [id number] Spec Type: Surgical Subm Dr: Scooby Vega Tissues: A Products of Conception - Spontaneous or Missed (POC) Procedures: HE/3, Gross/Dannie L4 -------- Patient: Rapahel Elizabeth [id number] (Continued) -------- Signed (signature on file) Dante Palacios MD 10/27/23 1511 Normal [facility] Laboratory - Hematology and Cell countson 10-23-2023 Immature granulocytes/100 WBC (Bld) 0.2 % 0.0-0.5 [facility] Leukocytes [#/volume] correc leroy for nucleated erythrocytes in Blood by Automated counon 10-23-2023 WBC corrected for nucl RBC Auto (Bld) [#/Vol] 5.1 10 3/uL 4.0-11.0 [facility] Lymphocytes Auto (Bld) [#/Vo l]on 10-23-2023 Lymphocytes (Bld) [#/Vol] 1.7 10 3/uL 1.2-3.8 [facility] Lymphocytes/100 WBC Auto (Bl d)on 10-23-2023 Lymphocytes/100 WBC (Bld) 32.8 % 20.5-60.0 [facility] MCH Auto (RBC) [Entitic mass ]on 10-23-2023 MCH (RBC) [Entitic mass] 31.1 pg 26.7-34.0 [facility] MCHC Auto (RBC) [Mass/Vol]on 10-23-2023 MCHC (RBC) [Mass/Vol] 32.8 g/dL 29.9-35.2 [facility] MCV Auto (RBC) [Entitic vol] on 10-23-2023 MCV (RBC) [Entitic vol] 95.0 fL 81.0-99.0 [facility] Monocytes Auto (Bld) [#/Vol] on 10-23-2023 Monocytes (Bld) [#/Vol] 0.3 10 3/uL 0.3-0.8 [facility] Monocytes/100 WBC Auto (Bld) on 10-23-2023 Monocytes/100 WBC (Bld) 5.5 % 1.7-12.0 [facility] Neutrophils Auto (Bld) [#/Vo l]on 10-23-2023 Neutrophils (Bld) [#/Vol] 3.0 10 3/uL 1.4-6.5 [facility] Neutrophils/100 WBC Auto (Bl d)on 10-23-2023 Neutrophils/100 WBC (Bld) 59.3 % 43.0-75.0 [facility] No Panel Informationon 10-22 Eosinophils # (Auto) 0.1 10 3/uL 0.0-0.7 [facility] Immature Granulocyte # (Auto) 0.01 10 3/uL 0.00-0.03 [facility] Platelet mean volume Auto (B ld) [Entitic vol]on 10-23-2023 Platelet mean volume (Bld) [Entitic vol] 9.0 fL 9.5-13.5 [facility] Platelets Auto (Bld) [#/Vol] on 10-23-2023 Platelets (Bld) [#/Vol] 182 10 3/uL 150-450 [facility] RBC Auto (Bld) [#/Vol]on RBC (Bld) [#/Vol] 3.79 10 6/uL 4.20-5.40 [facility] No Panel Informationon 10-11 Human Chorionic Gonadotropin, Quant 40496 mIU/mL [facility] Comment on above: 5-50 0.2-1 RNFN97-55 0 1-2 AAZQP291-1,000 2-3 EHSQQ755-69,000 3-4 WEEKS1,000-50,000 4-5 WEEKS10,000-100,000 5-6 WEEKS15,000-200,000 6-8 WEEKS10,000-100,000 2-3 MONTHS No Panel Informationon 10-06 Human Chorionic Gonadotropin, Quant 77300 mIU/mL [facility] Comment on above: 5-50 0.2-1 YWQT77-71 0 1-2 AOCTF782-6,000 2-3 MDJMZ227-75,000 3-4 WEEKS1,000-50,000 4-5 WEEKS10,000-100,000 5-6 WEEKS15,000-200,000 6-8 WEEKS10,000-100,000 2-3 MONTHS No Panel Informationon 10-04 Human Chorionic Gonadotropin, Quant 01492 mIU/mL [facility] Comment on above: 5-50 0.2-1 QUTQ63-99 0 1-2 LERHT923-9,000 2-3 WHQTX472-02,000 3-4 WEEKS1,000-50,000 4-5 WEEKS10,000-100,000 5-6 WEEKS15,000-200,000 6-8 WEEKS10,000-100,000 2-3 MONTHS PAP ACOG PANEL 2: 30 to 65on 03-11-2022 . . Normal [facility] Comment on above: Result Comment: Perf ormed at: WB Performed By: #### [id number] #### [facility] [address] [place] [address] Dr. Danni Jacobs Age Gdln ACOG Testing 30-65 Normal [facility] Comment on above: Performed By: #### [id number] #### [facility] [address] [place] [address] Dr. Danni Jacobs DIAGNOSIS: Comment Normal [facility] Comment on above: Result Comment: NEGA TIVE FOR INTRAEPITHELIAL LESION OR MALIGNANCY. THIS SPECIMEN WAS RESCREENED PART OF OUR LOSS PREVENTION ANALYST PROGRAM. Performed at: WB Performed By: #### [id number] #### [facility] [address] [place] [address] Dr. Danni Jacobs HPV Aptima Negative Normal [facility] Comment on above: Result Comment: This nucleic acid amplification test detects fourteen high-risk HPV types (16,18,31,33,35,39,45,51,52,56,58,59,66,68) without differentiation. Performed at: =G Performed By: #### [id number] #### [facility] [address] [place] [address] Dr. Danni Jacobs Methodology: Comment Normal [facility] Comment on above: Result Comment: This liquid based ThinPrep(R) pap test was screened with the use of an image guided system. Performed at: WB Performed By: #### [id number] #### [facility] [address] [place] [address] Dr. Danni Jacobs Note: Comment Normal [facility] Comment on above: Result Comment: The Pap smear is a screening test designed to aid in the detection of premalignant and malignant conditions of the uterine cervix. It is not a diagnostic procedure and should not be used as the sole means of detecting cervical cancer. Both false-positive and false-negative reports do occur. . Performed at: WB Performed By: #### [id number] #### [facility] [address] [address] [address] Danni Jacobs Performed by: Comment Normal [facility] Comment on above: Result Comment: Rocky Hull, Licensed Direct Entry Midwife (ASCP) Performed at: WB Performed By: #### [id number] #### [facility] [address] [address] [address] Danni Jacobs QC reviewed by: Comment Normal [facility] Comment on above: Result Comment: Betzaida Ge, Supervisory Licensed Direct Entry Midwife (ASCP) Performed at: WB Performed By: #### [id number] #### [facility] [address] [address] [address] Danni Jacobs Specimen adequacy: Comment Normal [facility] Comment on above: Result Comment: Sati sfactory for evaluation. Endocervical and/or squamous metaplastic cells (endocervical component) are present. Performed at: WB Performed By: #### [id number] #### [facility] [address] [place] [address] Dr. Danni Jacobs GLUCOSE BLOODon 04-22-2021 Glucose [Mass/Vol] 99 mg/dL Normal 74-106 [facility] Comment on above: Performed By: #### G YOSEPH, LIPID #### [facility] [address] [place] [address] Dr. Danni Jacobs LIPID PROFILEon 04-22-2021 CHOL-HDL RATIO NORM SEE BELOW Normal [facility] Comment on above: Result Comment: 3.3 - 4.4 LOW RISK 4.4 - 7.1 AVERAGE RISK 7.1 - 11.0 MODERATE RISK >11.0 HIGH RISK Performed By: #### G YOSEPH, LIPID #### [facility] [address] [address] [address] Danni Jacobs Cholesterol [Mass/Vol] 157 mg/dL Normal <=200 [facility] Comment on above: Performed By: #### G YOSEPH, LIPID #### [facility] [address] [address] [address] Danni Jacobs Cholesterol in HDL [Mass/Vol] 74 mg/dL Normal [facility] Comment on above: Performed By: #### G YOSEPH, LIPID #### [facility] [address] [address] [address] Danni Jacobs Cholesterol in LDL [Mass/Vol] 71.2 mg/dL Normal [facility] Comment on above: Performed By: #### G YOSEPH, LIPID #### [facility] [address] [address] [address] Danni Jacobs Cholesterol.total/C holesterol in HDL [Mass ratio] 2.1 {ratio} Normal [facility] Comment on above: Performed By: #### G YOSEPH, LIPID #### [facility] [address] [address] [address] Danni Jacobs HDL NORMAL > or = 60 mg/dl - LO W CARDIOVASCULAR RISK <40 mg/dl - HIGH CARDIOVASCULAR RISK Normal [facility] Comment on above: Performed By: #### G YOSEPH, LIPID #### [facility] [address] [address] [address] Danni Jacobs LDL CALC NORMAL SEE BELOW Normal [facility] Comment on above: Result Comment: <100 mg/dl OPTIMAL 100 - 129 mg/dl NEAR OR ABOVE OPTIMAL 130 - 159 mg/dl BORDERLINE HIGH 160 - 189 mg/dl HIGH >190 mg/dl VERY HIGH Performed By: #### G YOSEPH, LIPID #### [facility] [address] [address] [address] Danni Jacobs Triglyceride [Mass/Vol] 59 mg/dL Normal <=150 [facility] Comment on above: Performed By: #### G YOSEPH, LIPID #### [facility] [address] [address] [address] Danni Jacobs VLDL CALC 11.8 mg/dL Normal [facility] Comment on above: Performed By: #### G YOSEPH, LIPID #### [facility] [address] [place] [address] Dr. Danni Jacobs Vital Signs Date Time Vital Sign Value Performing Clinician Philippe mera 08-01-2024 13:55-0500 Body mass index (BMI) [Ratio] 22.87 kg/m2 Scooby Garybill RODRIGUEZ Work Phone: [facility] 08-01-2024 13:55-0500 Body weight 66.22 kg Scooby Gary DO Work Phone: [facility] 08-01-2024 13:55-0500 Diastolic blood pressure 74 mm[Hg] Scooby Gary DO Work Phone: [facility] 08-01-2024 13:55-0500 Systolic blood pressure 116 mm[Hg] Scooby Gary DO Work Phone: [facility] 07-18-2024 15:05-0500 Body mass index (BMI) [Ratio] 22.84 kg/m2 Scooby Gary DO Work Phone: [facility] 07-18-2024 15:05-0500 Body weight 66.13 kg Scooby Gary DO Work Phone: [facility] 07-18-2024 15:05-0500 Diastolic blood pressure 70 mm[Hg] Scooby Gary DO Work Phone: [facility] 07-18-2024 15:05-0500 Systolic blood pressure 118 mm[Hg] Scooby Gary DO Work Phone: [facility] 06-30-2024 12:01-0500 Body mass index (BMI) [Ratio] 22.26 kg/m2 Scooby Gary DO Work Phone: [facility] 06-30-2024 12:01-0500 Body weight 64.47 kg Scooby Gary DO Work Phone: [facility] 06-30-2024 12:01-0500 Diastolic blood pressure 70 mm[Hg] Scooby Gary DO Work Phone: [facility] 06-30-2024 12:01-0500 Systolic blood pressure 110 mm[Hg] Scooby Gary DO Work Phone: [facility] 06-02-2024 10:45-0500 Body mass index (BMI) [Ratio] 21.9 kg/m2 Scooby Gary DO Work Phone: [facility] 06-02-2024 10:45-0500 Body weight 63.41 kg Scooby Gary DO Work Phone: [facility] 06-02-2024 10:45-0500 Diastolic blood pressure 72 mm[Hg] Scooby Gary DO Work Phone: [facility] 06-02-2024 10:45-0500 Systolic blood pressure 116 mm[Hg] Scooby Gary DO Work Phone: [facility] 05-27-2024 14:14-0500 Body height 170.2 cm Gracie Ramsey MD Work Phone: [facility] 05-27-2024 14:14-0500 Body mass index (BMI) [Ratio] 22.08 kg/m2 Gracie Ramsey MD Work Phone: [facility] 05-27-2024 14:14-0500 Body weight 63.96 kg Gracie Ramsey MD Work Phone: [facility] 05-27-2024 14:14-0500 Diastolic blood pressure 63 mm[Hg] Gracie Ramsey MD Work Phone: [facility] 05-27-2024 14:14-0500 Heart rate 83 /min Gracie Ramsey MD Work Phone: [facility] 05-27-2024 14:14-0500 Systolic blood pressure 110 mm[Hg] Gracie Ramsey MD Work Phone: [facility] 05-02-2024 16:20-0500 Body mass index (BMI) [Ratio] 21.61 kg/m2 Emely COBB Work Phone: [facility] 05-02-2024 16:20-0500 Body weight 62.6 kg Emely COBB Work Phone: [facility] 05-02-2024 16:20-0500 Diastolic blood pressure 68 mm[Hg] Emely COBB Work Phone: [facility] 05-02-2024 16:20-0500 Systolic blood pressure 120 mm[Hg] Emely COBB Work Phone: [facility] 04-29-2024 11:40-0500 Body weight Jen Granados MD Work Phone: [facility] 04-04-2024 14:55-0400 Body mass index (BMI) [Ratio] 21.27 kg/m2 Scooby Gary DO Work Phone: [facility] 04-04-2024 14:55-0400 Body weight 61.6 kg Scooby Gary DO Work Phone: [facility] 04-04-2024 14:55-0400 Diastolic blood pressure 70 mm[Hg] Scooby Gary DO Work Phone: [facility] 04-04-2024 14:55-0400 Systolic blood pressure 116 mm[Hg] Scooby Gary DO Work Phone: [facility] 04-04-2024 08:54-0400 Body height 170.2 cm Ashley Shin MD Work Phone: [facility] 04-04-2024 08:54-0400 Body mass index (BMI) [Ratio] 19.73 kg/m2 Ashley Shin MD Work Phone: [facility] 04-04-2024 08:54-0400 Body weight 57.15 kg Ashley Shin MD Work Phone: [facility] 03-07-2024 10:47-0400 Body mass index (BMI) [Ratio] 20.07 kg/m2 Scooby Gary DO Work Phone: [facility] 03-07-2024 10:47-0400 Body weight 58.12 kg Scooby Gary DO Work Phone: [facility] 03-07-2024 10:47-0400 Diastolic blood pressure 68 mm[Hg] Scooby Gary DO Work Phone: [facility] 03-07-2024 10:47-0400 Systolic blood pressure 114 mm[Hg] Scooby Gary DO Work Phone: [facility] 12-01-2023 16:10-0400 Body height 170.18 cm Scooby Gary Work Phone: [facility] 12-01-2023 16:10-0400 Body mass index (BMI) [Ratio] 19.5 kg/m2 Scooby Gary Work Phone: [facility] 12-01-2023 16:10-0400 Body weight 56.69 kg Scooby Gary Work Phone: [facility] 12-01-2023 16:10-0400 Diastolic blood pressure 78 mm[Hg] Scooby Gary Work Phone: [facility] 12-01-2023 16:10-0400 Systolic blood pressure 112 mm[Hg] Scooby Gary Work Phone: [facility] Encounters Encounter Date Encounter Type Care Provider Facility Start: 08-06-2024 End: 08-06-2024 Clinisync Result Encounter Scooby Gary DO Work Phone: [facility] External Department Unsolicited Start: 08-06-2024 End: 08-06-2024 Clinisync Result Encounter Scooby Gary DO Work [...] flow sheet Scooby Gary DO Work Phone: [facility] Comment on above: Third trimester [...] 06-25-2024 ambulatory Jen Granados MD Work Phone: [facility] Work Phone: Start: 06-25-2024 End: 06-25-2024 Departed Referred Jen Granados MD Work Phone: [facility] Start: 06-25-2024 Non-patient / Non-visit Jen Granados MD Work Phone: [facility] Work Phone: Start: 06-02-2024 [...] Gracie Ramsey MD Work Phone: [facility] [place] Comment on above: Advanced maternal ag e, 1st , second trimester (Primary Dx); 23 weeks gestation of Start: 05-02-2024 Non-patient / Non-visit Jen Granados MD Work Phone: [facility] Work Phone: Start: 05-02-2024 [...] / Non-visit Jen Granados MD Work Phone: [facility] Work Phone: Start: 04-08-2024 End: 04-08-2024 Chart abstracting Scanning Provider External Maternal- [facility] Start: 04-04-2024 End: 04-04-2024 flow sheet Scooby Gary DO Work Phone: [facility] Comment on above: Second trimester pre gnancy; Screening, , for anatomic survey; with 15 completed weeks gestation Start: 04-04-2024 End: 04-04-2024 ambulatory SCOOBY GARY Not Available Start: 04-04-2024 End: 04-04-2024 Bamboo flowsheet Scooby Gary DO Work Phone: [facility] Start: 04-04-2024 End: 04-04-2024 Bamboo flowsheet Scooby Vega DO Work Phone: [facility] Start: 04-04-2024 End: 04-04-2024 ambulatory ASHLEY SHIN [facility] Start: 04-04-2024 End: 04-04-2024 Office outpatient visit 15 minutes Ashley Shin MD Work Phone: [facility] Comment on [...] CI PT Start: 02-08-2024 End: 02-08-2024 ambulatory [facility] Start: 02-08-2024 ambulatory [facility] Start: 12-01-2023 End: 12-01-2023 ambulatory Scooby Gary Work Phone: [facility] Work Phone: Start: 12-01-2023 End: 12-01-2023 Patient encounter procedure Scooby Gary Work Phone: [facility] Work Phone: Start: 11-30-2023 Non-patient / Non-visit Scooby Gary Work Phone: [facility] Work Phone: Start: 11-23-2023 Non-patient / Non-visit Scooby Gary Work Phone: [facility] Work Phone: Start: 11-17-2023 Non-patient / Non-visit Scooby Gary Work Phone: [facility] Work Phone: Start: 11-09-2023 Non-patient / Non-visit Scooby Gary Work Phone: [facility] Work Phone: Start: 11-09-2023 End: 11-09-2023 ambulatory EMELY HUNTER Not Available Start: 10-23-2023 End: 10-23-2023 ambulatory Scooby Gary [facility] Work Phone: Start: 10-23-2023 End: 10-23-2023 Departed Referred Scooby Gary Work Phone: [facility] Start: 10-23-2023 Non-patient / Non-visit Scooby Gary Work Phone: [facility] Work Phone: Start: 10-12-2023 Non-patient / Non-visit Scooby Gary Work Phone: [facility] Work Phone: Start: 10-07-2023 Non-patient / Non-visit Scooby Gary Work Phone: [facility] Work Phone: Start: 10-05-2023 Non-patient / Non-visit Scooby Gary Work Phone: [facility] Work Phone: Start: 03-03-2022 End: 03-03-[address] SCOOBY VEGA Facility:[facility] Start: 04-28-2021 Encounter for genera l adult medical examination without abnormal findings DR DALTON LOGAN [facility] Start: 04-22-2021 End: 04-23-[address] DALTON LOGAN Facility:[facility] Start: 04-22-2021 End: 04-23-2021 Encounter for general adult medical examination without abnormal findings DR DALTON LOGAN Facility:[facility] Procedures Date Procedure Procedure Detail Performing Clinician Start: 08-06-2024 US OB BPP W NON-STRESS Scooby Gary DO Work Phone: Start: 08-01-2024 Urnls dip stick/tabl et rgnt [...] AFP, SERUM, OPEN SPI NA BIFIDA Scooby Vega DO Work Phone: Start: 04-04-2024 Follow-up visit Follow-up ASHLEY SHIN Start: 02-26-2024 [facility] BOX TEST SENT OUT Nery Vega DO Work Phone: Start: 02-16-2024 Blood [...] malign ant neoplasm of cervix Pap Smear [facility] Start: 05-27-2025 Tobacco Screening Tobacco Screening [facility] [facility] Start: 04-04-2025 Adult BMI Screening Adult BMI Screen ing [facility] Start: 04-04-2025 Tobacco Screening Tobacco Screening [facility] Start: 02-07-2025 Adult BMI Screening Adult BMI Screen ing [facility] Start: 08-18-2024 End: 08-18-2024 Patient encounter procedure 08/18/2024 9:20 AM EST Routine [facility] [address] [place] [address] Scooby Vega, DO [facility] [place] [address] [facility] Start: 08-01-2024 End: 08-01-2024 Patient encounter procedure 08/01/2024 1:20 PM EST Routine [facility] [address] [place] [address] Scooby Vega, DO [address] [facility] [place] [address] [facility] Start: 07-18-2024 End: 07-18-2024 Patient encounter procedure 07/18/2024 2:30 PM EST Routine [facility] [address] [place] [address] Scooby Vega, DO [address] [facility] [place] [address] [facility] Start: 07-18-2024 End: 07-18-2025 US biophysical profile w non stress test US biophysical profile w non stress test Imaging Routine 30 weeks gestation of Third trimester Expected: 07/18/2024 (Approximate), Expires: 07/18/2025 [facility] Work Phone: Comment on above: Expected: 07/18/2024 (Approximate), Expires: 07/18/2025 Start: 06-30-2024 End: 06-30-2025 US biophysical profile w non stress test US biophysical profile w non stress test Imaging Routine Gestational diabetes mellitus (GDM), antepartum, gestational diabetes method of control unspecified Expected: 06/30/2024 (Approximate), Expires: 06/30/2025 [facility] Comment on above: Expected: 06/30/2024 (Approximate), Expires: 06/30/2025 Start: 06-30-2024 End: 06-30-2025 US for US OB follow up transabdominal approach Imaging Routine Gestational diabetes mellitus (GDM), antepartum, gestational diabetes method of control unspecified Expected: 06/30/2024, Expires: 06/30/2025 [facility] Work Phone: Comment on above: Expected: 06/30/2024 , Expires: 06/30/2025 Start: 06-30-2024 End: 06-30-2024 Patient encounter procedure 06/30/2024 11:50 AM EST Routine [facility] [address] [facility] [place] [phone] Scooby Vega, DO [address] [place] [address] [facility] Start: 06-25-2024 Urine culture [facility] Start: 06-25-2024 Bacteria identified in Urine by Culture Urine Culture [facility] Start: 06-02-2024 End: 06-02-2025 CBC panel - Blood by Automated count CBC Lab Routine Diabetes mellitus screening Expected: 06/02/2024 (Approximate), Expires: 06/02/2025 [facility] Work Phone: Comment on above: Expected: 06/02/2024 (Approximate), Expires: 06/02/2025 Start: 06-02-2024 End: 06-02-2025 Measurement of glucose 1 hour after glucose challenge for glucose tolerance test Glucose tolerance, 1 hour Lab Routine Diabetes mellitus screening Expected: 06/02/2024 (Approximate), Expires: 06/02/2025 [facility] Comment on above: Expected: 06/02/2024 (Approximate), Expires: 06/02/2025 Start: 06-02-2024 End: 06-02-2024 Patient encounter procedure 06/02/2024 10:10 AM EST Routine [facility] [address] [facility] [place] [address] Scooby Vega, DO [address] [place] [address] [facility] Start: 05-27-2024 End: 05-27-2024 Patient encounter procedure [facility] [place] Start: 05-02-2024 End: 05-02-2024 Patient encounter procedure 05/02/2024 3:30 PM EST Routine [facility] [address] [facility] [place] [address] Emely Hunter PA [address] [place] [address] [facility] Start: 05-02-2024 End: 10-30-2024 Alpha fetoprotein, maternal Alpha fetoprotein, maternal Lab Routine Second trimester 19 weeks gestation of Expected: 05/02/2024 (Approximate), Expires: 10/30/2024 [facility] Healthcare Comment on above: Expected: 05/02/2024 (Approximate), Expires: 10/30/2024 Start: 05-02-2024 End: 05-02-2025 US for US OB ANATOMY SINGLE W US OB CERVICAL LENGTH Imaging Routine Screening, , for anatomic survey Expected: 05/02/2024 (Approximate), Expires: 05/02/2025 [facility] Comment on above: Expected: 05/02/2024 (Approximate), Expires: 05/02/2025 Start: 04-26-2024 End: 04-26-2024 Patient encounter procedure 04/26/2024 11:00 AM EST Office Visit [facility] [address] [place] [address] Scooby Vega DO [address] [facility] [facility] [place] [address] [facility] Start: 04-04-2024 End: 04-04-2024 Patient encounter procedure [facility] Comment on above: Arrived Start: 04-04-2024 End: 10-03-2024 Alpha fetoprotein, maternal Alpha fetoprotein, maternal Lab Routine Second trimester Screening, , for anatomic survey Expected: 04/04/2024 (Approximate), Expires: 10/03/2024 [facility] Work Phone: Comment on above: Expected: 04/04/2024 (Approximate), Expires: 10/03/2024 Start: 04-01-2024 End: 04-01-2024 ambulatory 04/01/2024 1:30 PM EDT Treatment [facility] [address] [place] [address] [place] [address] Gretchen Moreno, PT [facility] Start: 03-23-2024 End: 03-23-2024 ambulatory 03/23/2024 1:00 PM EDT Treatment [facility] [address] [facility] [address] [place] [address] Gretchen Moreno, PT [facility] Start: 03-18-2024 End: 03-18-2024 ambulatory 03/18/2024 1:30 PM EDT Treatment [facility] [address] [facility] [address] [place] [address] Gretchen Moreno, PT [facility] Start: 03-11-2024 End: 03-11-2024 ambulatory 03/11/2024 1:30 PM EDT Treatment [facility] [address] [facility] [address] [place] [address] Gretchen Moreno, PT [facility] Start: 03-07-2024 End: 03-07-2024 Patient encounter procedure 03/07/2024 10:10 AM EDT Routine [facility] [address] [place] [address] Scooby Vega, DO [address] [facility] [place] [address] [facility] Start: 03-03-2024 End: 03-03-2024 ambulatory 03/03/2024 10:30 AM EDT Treatment [facility] [address] [facility] [address] [place] [address] Gretchen Moreno, PT [facility] Start: 02-26-2024 End: 02-26-2024 ambulatory 02/26/2024 1:30 PM EDT Treatment [facility] [address] [facility] [address] [place] [address] Gretchen Moreno, PT Arrived [facility] Comment on above: Arrived Start: 02-25-2024 End: 02-25-2024 ambulatory 02/25/2024 10:30 AM EDT Treatment [facility] [address] [facility] [address] [place] [address] Gretchen Moreno, PT [facility] Start: 02-21-2024 Influenza vaccination Influenza Vacc ine [facility] Start: 02-17-2024 End: 02-17-2024 ambulatory 02/17/2024 12:00 PM EDT Treatment [facility] [address] [place] [address] Gretchen Moreno, PT [facility] Start: [...] Initial [facility] [address] [place] [phone] [facility] Start: 02-12-2024 End: 02-12-2024 Professional / ancillary services management 02/12/2024 10:00 AM EDT Ancillary Procedure [facility] [address] [place] [address] [facility] Start: 02-10-2024 End: 02-10-2024 ambulatory 02/10/2024 5:00 PM EDT Evaluation [facility] [address] [facility] [address] [place] [address] Gretchen Moreno, PT Arrived [facility] Comment on above: Arrived Start: 12-10-2008 Screening for malign ant neoplasm of cervix Pap Smear [facility] Start: 12-10-2006 DTaP,Tdap and Td Vaccines (1 - Tdap) DTaP,Tdap and Td Vaccines (1 - Tdap) [facility] Start: 1999 Depression Screening Depression Scre ening [facility] Start: 1999 Tobacco Screening Tobacco Screening [facility] Bacteria identified in Urine by Culture Urine culture Microbiology Routine Missed menses Ordered: 02/12/2024 [facility] Comment on above: Ordered: 02/12/2024 CBC W Auto Different ial panel - Blood CBC and differential Lab Routine Missed menses Ordered: 02/12/2024 [facility] Comment on above: Ordered: 02/12/2024 CHLAMYDIA TRACHOMATI S (GENITO/STI) CHLAMYDIA TRACHOMATIS (GENITO/STI) Lab Routine STD exposure Ordered: 05/02/2024 [facility] Comment on above: Ordered: 05/02/2024 Cytology Cervical or vaginal smear or scraping study Pap Smear Pathology and Cytology Routine Well woman exam with routine gynecological exam Ordered: 05/02/2024 [facility] Comment on above: Ordered: 05/02/2024 Hemoglobin A1c/Hemoglobin.total in Blood Hemoglobin A1c Lab Routine Missed menses Ordered: 02/12/2024 [facility] Comment on above: Ordered: 02/12/2024 Hepatitis B virus surface Ag [Presence] in Serum or Plasma by Immunoassay Hepatitis B surface antigen Lab Routine Missed menses Ordered: 02/12/2024 [facility] Comment on above: Ordered: 02/12/2024 Hepatitis C virus Ab [Presence] in Serum or Plasma by Immunoassay Hepatitis C antibody Lab Routine Missed menses Ordered: 02/12/2024 [facility] Comment on above: Ordered: 02/12/2024 HIV-1/HIV-2 antigen/antibody combination immunoassay HIV-1 and HIV-2 antibodies Lab Routine Missed menses Ordered: 02/12/2024 [facility] Comment on above: Ordered: 02/12/2024 Human papilloma viru s DNA [Presence] in Unspecified specimen by Probe with amplification HPV DNA probe, amplified Microbiology Routine Well woman exam with routine gynecological exam Ordered: 05/02/2024 [facility] Comment on above: Ordered: 05/02/2024 Neisseria gonorrhoea e DNA [Presence] in Unspecified specimen by JUAN ANTONIO with probe detection Neisseria gonorrhea DNA probe, direct Lab Routine STD exposure Ordered: 05/02/2024 [facility] Comment on above: Ordered: 05/02/2024 Reagin Ab [Presence] in Serum by RPR RPR Lab Routine Missed menses Ordered: 02/12/2024 [facility] Comment on above: Ordered: 02/12/2024 Rubella antibody, IgG Rubella an tibody, IgG Lab Routine Missed menses Ordered: 02/12/2024 [facility] Comment on above: Ordered: 02/12/2024 SURESWAB(R) ADVANCED VAGINITIS PLUS, TMA SURESWAB(R) ADVANCED VAGINITIS PLUS, TMA Pathology and Cytology Routine Vaginal discharge Ordered: 05/02/2024 [facility] Work Phone: Comment on above: Ordered: 05/02/2024 XR Hip - left 2 Views [facility] Payers Date Payer Category Payer Commercial Managed C are - POS [employer] [id number] 2022 Private Health Insurance [id number] 2022 Unknown NILAM JORGENSEN [id number] 2022-Present [phone] [address] [place] [id number] [id number] 1987 Unknown [id number] 2.16.840.1.909788.3.579. 2.593 1987 Unknown [id number] 2.16.840.1.500225.3.579. 2.593 1987 Unknown [id number] 2.16.840.1.439080.3.579. 2.128 1987 Unknown [id number] 2.16.840.1.357776.3.579. 2.1285 1987 Unknown [id number] 2.16.840.1.674182.3.579. 2.1285 1987 Unknown [id number] 2.16.840.1.009107.3.579. 2.1258 1987 Unknown [id number] 2.16.840.1.818731.3.579. 2.1258 1987 Unknown [id number] 2.16.840.1.256546.3.579. 2.1258 1987 Unknown [id number] 2.16.840.1.693123.3.579. 2.1258 1987 Unknown [id number] 2.16.840.1.850323.3.579. 2.1258 1987 Unknown [id number] 2.16.840.1.832956.3.579. 2.1258 1987 Unknown [id number] 2.16.840.1.182333.3.579. 2.1258 1987 Unknown [id number] 2.16.840.1.322804.3.579. 2.1258 1987 Unknown [id number] 2.16.840.1.526644.3.579. 2.1258 1987 Unknown [id number] 2.16.840.1.369898.3.579. 2.9 1987 Unknown [id number] 2.16.840.1.358142.3.579. 2.1258 1987 Unknown [id number] 2.16.840.1.893159.3.579. 2.1258 1987 Unknown [id number] 2.16.840.1.786421.3.579. 2.1258 1987 Unknown [id number] 2.16.840.1.741182.3.579. 2.1258 1987 Unknown [id number] 2.16.840.1.614131.3.579. 2.1258 1987 Unknown [id number] 2.16.840.1.376905.3.579. 2.1258 1987 Unknown [id number] 2.16.840.1.821239.3.579. 2.9 1959 Unknown [id number] Social History Date Type Detail Facility Tobacco smoking stat us ARIS Unknown if ever smoked [facility] Work Phone: Start: 1985 Sex Assigned At Female [facility] Start: 02-26-2023 End: 04-04-2024 Tobacco smoking status NHIS Never smoked tobacco [facility] Start: 11-09-2023 End: 05-27-2024 History of Social function [facility] Start: 11-09-2023 End: 05-27-2024 Tobacco use panel [facility] Start: 01-01-2024 [facility] Start: 1987 Sex assigned at Not on file [facility] Start: 04-04-2024 Tobacco use and exposure Smokeless tobacco non-user [facility] Start: 04-04-2024 End: 05-27-2024 Alcoholic beverage intake Ex-drinker (finding) [facility] Childcare Unknown [facility] Start: 12-30-2023 Gender identity Identifies as female gender (finding) [facility] Start: 12-30-2023 Sexual orientation Heterosexual (finding) [facility] Start: 01-25-2015 End: 06-27-2024 Sex Female (finding) [facility] Tobacco smoking stat [facility] Unknown if ever smoked [facility] Work Phone: Medical Equipment Procedure Code Equipment Code Equipment Origin al Text Equipment Identifier Dates 1 strip by In Vi tro route Daily Use in the morning prior to breakfast, 1 hour after each meal for a total of 4times daily. [id number] Start: 06-02-2024 End: 07-02-2024 1 each by In Vit ro route Daily Use to check FSBS four times daily [id number] Start: 06-02-2024 End: 07-02-2024 Goals Date Patient Goal Desired Activity /State Personal health goal Clinical Notes 02-10-2024 to 08-01-2024 Kalie Loera LPN - 08/01/2024 1:20 PM Abel Loera, CATALOGUE COMPILER - 07/18/2024 2:30 PM JORDYN Love - 06/30/2024 11:50 AM Jose Francisco Villanueva CATALOGUE COMPILER - 06/02/2024 10:10 AM EST Note Date [...] nursing note reviewed. Exam conducted with a elevator operator present. Vitals: Estimated body mass index [...] Scooby Vega DO documented in this encounter [facility] 07-18-2024 History of Present illness Narrative Reason [...] nursing note reviewed. Exam conducted with a elevator operator present. Vitals: Estimated body mass index [...] of:Emely Hunter PA-C documented in this encounter [facility] 06-30-2024 History of Present illness Narrative Reason [...] Scooby Vega DO documented in this encounter [facility] 06-02-2024 History of Present illness Narrative Reason [...] nursing note reviewed. Exam conducted with a elevator operator present. Vitals: Estimated body mass index [...] Scooby Vega DO documented in this encounter [facility] 05-27-2024 History of Present illness Narrative REASON [...] TESTS AND ULTRASOUND REPORTS: Referral records and [facility] chart were reviewed Pertinent Ultrasound findings are see formal ultrasound report. PHYSICAL EXAMINATION: BP 110/63 Pulse 83 Ht 170.2 cm (5' 7 ) Wt 64 kg (141 lb) LMP 12/18/2023 BMI 22.08 kg/m Well-appearing in no distress. Respirations not labored, speaking comfortably in full sentences Gravid abdomen OVERALL ASSESSMENT -Raphael Silva Elizabeth is a pleasant 38 y.o. [...] preeclampsia prevention as is recommended by the [place] [employer] Committee Opinion No. 743. [...] patient is in complete care of her wall washer. Thank you for allowing me to participate in the care of Raphael Elizabeth. If there any questions please do not hesitate to contact us. Gracie Ramsey MD Maternal- Medicine [facility] [address] [place] [address] [facility], the CDC, and other organizations representing maternal and public health professionals recommend that , , and lactating people and those considering receive the COVID-19 vaccination. Vaccination is the best method to reduce maternal and complications of SARS-CoV-2 infection. This document was created with [employer] technology. Though I make every effort to review the dictation as it is transcribed, on occasion the spoken word can be misinterpreted by the technology leading to inappropriate words, phrases, or sentences. This note is addressed to the requesting provider as a consultation for clinical guidance. Specific medical abbreviations are occasionally used and those are generally approved by the [place]?Board of?Obstetrics and?Gynecology?as well as?Cali s abbreviations. The above plan of care was based solely on the diagnoses for which a consultation was requested. ?More frequent testing may be indicated based on her other medical/obstetrical conditions. The management of other or medical conditions is beyond the scope of requested consultation and will continue to be followed by the primary wall washer or primary care provider. Note to patient: [...] yes Have you been seen here at [facility] in a previous ? N/a Recent ER visits or hospitalizations? no Bring blood sugar log or meter with you today? (Please bring them with you for every visit at [facility]) n/a Flu vaccine (Apr-August)? no Any concerns that you would like me to mention to the provider today? no [facility] History of Present illness Narrative Reason [...] nursing note reviewed. Exam conducted with a elevator operator present. Vitals: Estimated body mass index [...] of: JORDYN Fonseca documented in this encounter [facility] 04-04-2024 History of Present illness Narrative Reason [...] nursing note reviewed. Exam conducted with a elevator operator present. Vitals: Estimated body mass index [...] Aspirin. Discussed again in regards to seeing [facility] & referral will be completed. Patient to have NST/BPP starting at 32 weeks gestation. Patient will have Anatomy Scan done at [facility]. Patient is Rh Negative and will [...] Scooby Vega DO documented in this encounter [facility] 04-04-2024 History of Present illness Narrative Chief [...] with this plan. documented in this encounter [facility] 04-01-2024 History of Present illness Narrative [...] and it pops a lot randomly. Precautions: [place] Subjective: Pt states overall, ROM has improved. [...] to be instructed in home exercise program. Picture Frame Maker Goals: To be met in 10 weeks [...] inch knee to bed distance with left CHRALES testing indicating improved tissue quality and decrease pain. Goal 5: Pt to score no less than 65/80 on LEFS indicating improved QOL. Pt will benefit from skilled PT for 2-3x/week from 02/10/2024 to 04/20/2024 to address the above impairments. I hereby deem this POC medically necessary. Please sign below. Date: documented in this encounter [facility] 03-23-2024 History of Present illness Narrative Physical [...] and it pops a lot randomly. Precautions: [place] Subjective: Pt states range of motion of [...] to be instructed in home exercise program. Nursing Home Goals: To be met in 10 weeks [...] sign below. Date: documented in this encounter [facility] 03-18-2024 History of Present illness Narrative Physical [...] and it pops a lot randomly. Precautions: [place] Subjective: Pt states she feels like her [...] to be instructed in home exercise program. Picture Frame Maker Goals: To be met in 10 weeks [...] sign below. Date: documented in this encounter [facility] 03-11-2024 History of Present illness Narrative Physical [...] and it pops a lot randomly. Precautions: [place] Subjective: Pt states overall she believes hip [...] to be instructed in home exercise program. Picture Frame Maker Goals: To be met in 10 weeks [...] sign below. Date: documented in this encounter [facility] 03-07-2024 History of Present illness Narrative Reason [...] nursing note reviewed. Exam conducted with a elevator operator present. Vitals: Estimated body mass index [...] or undercooked meat, and stay away from [facility]. Patient has been consulted regarding any further do's and don'ts of . Patient voiced understanding and all questions and concerns were answered. Follow Up: Patient is to return in 4 weeks for routine OB appointment. Documented by Kalie Loera LPN on behalf of: Scooyb Vega DO documented in this encounter [facility] 03-03-2024 History of Present illness Narrative Physical [...] and it pops a lot randomly. Precautions: [place] Subjective: Pt states she has been doing [...] to be instructed in home exercise program. Picture Frame Maker Goals: To be met in 10 weeks [...] sign below. Date: documented in this encounter [facility] 02-26-2024 History of Present illness Narrative Physical [...] and it pops a lot randomly. Precautions: [place] Subjective: Pt states she was able to [...] to be instructed in home exercise program. Nursing Home Goals: To be met in 10 weeks [...] sign below. Date: documented in this encounter [facility] 02-17-2024 History of Present illness Narrative Physical [...] and it pops a lot randomly. Precautions: [place] Subjective: Pt states she has not done [...] to be instructed in home exercise program. Picture Frame Maker Goals: To be met in 10 weeks [...] sign below. Date: documented in this encounter [facility] 02-12-2024 History of Present illness Narrative Reason [...] or undercooked meat, and stay away from [facility]. Patient has also been advised to [...] Estee Cobb LPN documented in this encounter [facility] 02-10-2024 History of Present illness Narrative Physical [...] and it pops a lot randomly. Precautions: [place] Subjective: left hip ant and lateral Pain: [...] to be instructed in home exercise program. Nursing Home Goals: To be met in 10 weeks [...] sign below. Date: documented in this encounter [facility] Evaluation note No assessment inform ation available [facility] Work Phone: Evaluation note Diagnosis Onset Date Left hip pain acute [facility] Work Phone: Evaluation note* Diagnosis Pain of left hip- Primary Hip flexor tendinitis, left [facility] Diagnosis Pain of left hip- Primary Hip flexor tendinitis, left [facility] Diagnosis Femoroacetabular impingement of left hip- Primary [facility] Diagnosis Second trimester state, incidental Screening, , for anatomic survey Encounter for anatomic survey with 15 completed weeks gestation documented in this encounter [facility]* Diagnosis Well woman exam with routine gynecological exam Routine gynecological examination Second trimester state, incidental 19 weeks gestation of Vaginal discharge Leukorrhea, not specified as infective STD exposure Screening, , for anatomic survey Encounter for anatomic survey documented in this encounter [facility]* Diagnosis Advanced maternal age, 1st , second trimester- Primary 23 weeks gestation of [facility] Diagnosis Pain of left hip- Primary Hip flexor tendinitis, left [facility] Diagnosis First trimester state, incidental Antepartum multigravida of advanced maternal age Nausea and vomiting in Unspecified vomiting of , unspecified as to episode of care documented in this encounter [facility]* Diagnosis Second trimester state, incidental 23 weeks gestation of with normal glucose tolerance test (GTT) Diabetes mellitus screening Screening for diabetes mellitus Gestational diabetes mellitus (GDM), antepartum, gestational diabetes method of control unspecified Elevated glucose tolerance test Impaired glucose tolerance test documented in this encounter [facility]* Diagnosis Missed menses documented in [...] encounter [facility]ructionsNot on filedocumented in this encounterProMedivt Health SystemInstructionsNot on filedocumented in this encounterProMediKeen[facility] SystemInstructionsNot on filedocumented in this encounterProKindred [facility] Summary Purpose Family History No Family [...] CREATED AUTHOR AUTHOR'S ORGANIZ ATION 07/03/2024 [facility] DATE CREATED AUTHOR AUTHOR'S ORGANIZ ATION 08/03/2024 [facility] Care Teams (unrecognized sec tion and content) Team Status: Active Member Role Status Dates Provider Conversion Primary Care Provider Active Start: October 05, 2023 Jen Granados MD Attending Provider Active St art: October 05, 2023 Team Status: Active Member Role Status Dates Provider Conversion Primary Care Provider Active Start: October 07, 2023 eJn Granados MD Attending Provider Active St art: [...] December 01, 2023 End: December 01, 2023 [employer]ogue [employer]iler Relationship Specialty Start Date End Date Jen Granados MD [address] [place] [address] PCP - General Family Medicine 03/10/23 Catalogue Compiler Relationship Specialty Start Date End Date Jen Granados MD [address] [place] [phone] PCP - General Family Medicine 03/10/23 Catalogue Compiler Relationship Specialty Start Date End Date Jen Granados MD [address] [place] [address] PCP - General Family Medicine 03/10/23 Catalogue Compiler Relationship Specialty [place] [address] [place] [phone] PCP - General Family Medicine 03/10/23 Catalogue Compiler Relationship Specialty Start Date End Date Jen Granados MD [address] [place] [id number] PCP - General 02/03/24 Catalogue Compiler Relationship Specialty Start Date End Date Jen Granados MD [address] [facility] [place] [phone] PCP - General Family Medicine 03/10/23 Catalogue Compiler Relationship Specialty Start Date End Date Jen Granados MD [address] [facility] [place] [address] PCP - General 02/03/24 Catalogue Compiler Relationship Specialty Start Date End Date Jen Granados MD [address] [facility] [place] [phone] PCP - General Family Medicine 03/10/23 Catalogue Compiler Relationship Specialty Start Date End Date Jen Granados MD [address] [facility] [place] [phone] PCP - General Family Medicine 03/10/23 Catalogue Compiler Relationship Specialty Start Date End Date Jen Granados MD [address] [facility] [place] [phone] PCP - General Family Medicine 03/10/23 Catalogue Compiler Relationship Specialty Start Date End Date Jen Granados MD [address] [facility] [place] [address] PCP - General 02/03/24 Catalogue Compiler Relationship Specialty Start Date End Date Jen Granados MD [address] [facility] [place] [phone] PCP - General Family Medicine 03/10/23 Catalogue Compiler Relationship Specialty Start Date End Date Jen Granados MD [address] [place] [facility] [address] PCP - General Family Medicine 03/10/23 Catalogue Compiler Relationship Specialty Start Date End Date Jen Granados MD [address] [place] [facility] [place] [facility] [phone] PCP - General Family Medicine 03/10/23 Catalogue Compiler Relationship Specialty Start Date End Date Jen Granados MD [address] [place] [facility] [place] [phone] PCP - General Family Medicine 03/10/23 Catalogue Compiler Relationship Specialty Start Date End Date Jen Granados MD [address] [place] [facility] [place] [phone] PCP - General Family Medicine 03/10/23 Catalogue Compiler Relationship Specialty Start Date End Date Jen Granados MD [address] [place] [facility] [address] PCP - General Family Medicine 03/10/23 Catalogue Compiler Relationship Specialty Start Date End Date Jen Granados MD [address] [place] [facility] [place] [facility] [address] PCP - General Family Medicine 03/10/23 Team [...] June 25, 2024 End: June 25, 2024 Catalogue Compiler Relationship Specialty Start Date End Date Jen Granados MD [address] [place] [facility] [place] [address] PCP - General Family Medicine 03/10/23 Catalogue Compiler Relationship Specialty Start Date End Date Jen Granados MD [address] [place] [facility] [place] [facility] [phone] PCP - General Family Medicine 03/10/23 Catalogue Compiler Relationship Specialty Start Date End Date Jen Granados MD [address] [place] [facility] [place] [phone] PCP - General Family Medicine 03/10/23 Catalogue Compiler Relationship Specialty Start Date End Date Jen Granados MD [address] [place] [facility] [phone] PCP - General Family Medicine 03/10/23 Catalogue Compiler Relationship Specialty Start Date End Date Jen Granados MD [address] [place] [facility] [place] [facility] [address] PCP - General Family Medicine 03/10/23 Goals [...] content) Specialty Diagnoses / Procedures Referred By Rosi diez Referred To Contact Physical Therapy Diagnoses Pain in left hip Other specified enthesopathies of left lower limb, excluding foot Procedures [place] PHYSICAL THERAPY EVALUATION LOW COMPLEX 20 MINS Ashley Shin MD [address] [address] Gretchen Moreno PT Referral ID Status Reason Start Date Expiration Date V isits Requested Visits Authorized [id number] Authorized 02/10/2024 08/08/2024 99 99 Reason Comments [...] BE BASED ON THE PRIMARY CLINICAL RECORDS. [employer] provides no warranty or guarantee of the accuracy or completeness of information in this document.
[2024-08-09 18:14] VITALS: BP 118/68; PULSE 82
== END 2024-08-09 18:34 | disposition home or self-care (01) ==
LOC: FBCO 00:52 → FBC 18:08
PROVIDERS: PCP Family Medicine; Visit Provider Obstetrics & Gynecology
DX: O24.419 Gestational diabetes mellitus in pregnancy, unspecified control (principal); Z3A.33 33 weeks gestation of pregnancy
CPT/HCPCS: 59025

== ENCOUNTER 2024-08-12 00:13 | Outpatient (OUT) | payer OTHER, SELFPAY ==
--- OUTSIDE RECORDS SUMMARY | 2024-08-12 00:17 | XMS_ITS | CCD ---
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 Name Role Phone DOREEN, DR HOFFMAN Attending Unavailable DARWIN, DR JEN Ramirez Primary Care Unavailable DOREEN, DR HOFFMAN Admitting Unavailable DOREEN, DR HOFFMAN Consulting Unavailable GARY, DR PAUL Admitting Unavailable GARY, DR PAUL Consulting Unavailable GARY, DR PAUL Attending Unavailable DARWIN, DR JEN Ramirez Primary Care Unavailable Scooby Vega Attending Provider [phone] Jen Granados MD Primary Care Provider ASHLEY ROCK Attending Unavailable JEN GRANADOS Referring Unavailable JEN GRANADOS Primary Care Unavailable ASHLEY ROCK Attending Unavailable JEN GRANADOS Referring Unavailable JEN GRANADOS Primary Care Unavailable Jen Granados MD Primary Care Provider Jae Cervantes DO Attending Provider Unavailab Jae Redd Admitting Unavailable Jae Cervantes Attending Unavailable Jen Granados Primary Care Unavailable Scooby Vega Admitting Unavailable Scooby Vega Attending Unavailable SCOOBY VEGA Attending Unavailable SCOOBY VEGA Attending Unavailable EMELY HUNTER Attending Unavailable GRETCHEN MORENO Attending Unavailable ROCK, ASHLEY Referring Unavailable MASON GRETCHEN Attending Unavailable ROCK, ASHLEY Referring Unavailable MASON GRETCHEN Attending Unavailable ROCK, ASHLEY Referring Unavailable MORENO, GRETCHEN Attending Unavailable ROCK, ASHLEY Referring Unavailable GARYDMY Attending Unavailable MASON GRETCHEN Attending Unavailable ROCK, ASHLEY Referring Unavailable MORENO, GRETCHEN Attending Unavailable ROCK, ASHLEY Referring Unavailable MORENO, GRETCHEN Attending Unavailable ROCK, ASHLEY Referring Unavailable MORENO, GRETCHEN Attending Unavailable ROCK, ASHLEY Referring Unavailable SCOOBY VEGA Attending Unavailable EMELY HUNTER Attending Unavailable SCOOBY VEGA Attending Unavailable SCOOBY VEGA Attending Unavailable Allergies Allergy Classification Reported Allergen(s) Allergy Type Date of Onset Reaction(s) Facility (20 sources) Amoxicillin; Translations: [AMOXICILLIN] Drug Allergy 3 GI intolerance [facility] (3 sources) 12 Hour Decongestant Allergy to substance 3 Hives [facility] Medications Current Medications Medication Drug Class(es) Dates Sig (Normalized) Sig (Original) aspirin 81 mg oral tablet (20 sources) Platelet Aggregation Inhibitor, Nonsteroidal Anti-inflammatory Drug take 81 mg by mouth once daily BABY ASPIRIN PO Take 81 mg by mouth Daily Active Blood Glucose Monitoring Suppl (D-Care Glucometer) w/Device kit (13 sources) Start: 06-02-2024 End: 06-02-2025 Blood Glucose Monitoring Suppl (D-Care Glucometer) w/Device kit Indications: Elevated glucose [...] Active doxycycline hyclate 100 mg oral capsule (3 sources) Tetracycline-class Drug Start: 10-23-2023 End: 02-12-2024 take 1 capsule by mouth in the morning doxycycline (Vibramycin) 100 MG capsule Take 100 mg by mouth in the morning and 100 mg before bedtime. 10/23/2023 02/12/2024 Discontinued (Other) ibuprofen 800 mg oral tablet (3 sources) [...] every 12 (twelve) hours 02/12/2024 Discontinued (Other) MV & Min w/FA-DHA ( Gummies) 0.18-25 [...] Dates Sig (Normalized) Sig (Original) magnesium citrate (13 sources) Start: 03-07-2024 End: 04-04-2024 Magnesium Citrate [...] 30 tablet 6 03/07/2024 04/06/2024 Active magnesium oxide 400 mg oral tablet (20 sources) Start: 02-12-2024 End: 05-12-2024 take 1 tablet by mouth once daily magnesium oxide (Mag-Ox) 400 MG tablet Indications: headache in first trimester Take 1 tablet (400 mg) by mouth Daily 30 tablet 2 02/12/2024 04/04/2024 Discontinued (Other) Progesterone 200 MG suppository (16 sources) Start: [...] menstruation, unspecified] 02-12-2024 Chronic Other complications of (2 sources) Nausea and [...] and thigh] Onset: 02-08-2024 12-01-2023 Episodic Other and delivery including normal (19 [...] of ] 05-02-2024 Episodic Residual codes; unclassified (2 sources) Gestation period, 23 weeks; Translations: [23 weeks gestation of ] 06-02-2024 Episodic Residual codes; unclassified (2 sources) Gestation [...] Test Name Value Interpretation Reference Range Facility US OB BPP W NON-STRESS on 08-06-2024 [place] [address] Ultrasound Report Signed Patient: RAPHAEL ELIZABETH MR#: [id number] : 1985 Acct:[id number] Age/Sex: 38 / F ADM Date: 08/05/24 Loc: US Attending Dr: Scooby Vega D.O. Ordering Physician: Scooby Vega D.O. Date of Service: 08/05/24 Procedure(s): US OB BPP w non-stress Accession Number(s): [id number] cc: Jen Granados M.D.; Scooby Vega D.O. [place] [id number] Patient Name: RAPHAEL ELIZABETH MRN: [id number] date: 1985 Sex: F Assigned Patient Location: [facility] Current Patient Location: Accession/Order Number: [id number] Exam Date: 08/05/2024 19:09 Report Date: 08/06/2024 [...] biophysical profile score: 8 Electronically authenticated by: ITKA KIMBALL Date: 08/06/2024 07:51 Dictated By: Tika Kimball M.D. Signed By: 08/06/24 0753 DD/ 075 TD/TT: Dining Room Hostess: [facility] Radiology, Radiologdora guillen MD - 08/06/2024 [place] [address] Ultrasound Report Signed Patient: RAPHAEL ELIZABETH MR#: [id number] : 1985 Acct:[id number] Age/Sex: 38 / F ADM Date: 08/05/24 Loc: US Attending Dr: Scooby Vega D.O. Ordering Physician: Scooby Vega D.O. Date of Service: 08/05/24 Procedure(s): US OB BPP w non-stress Accession Number(s): [id number] cc: Jen Granados M.D.; Scooby Vega D.O. The [place] [address] Patient Name: RAPHAEL ELIZABETH MRN: [facility]:[id number] date: 1985 Sex: F Assigned Patient Location: [facility] Current Patient Location: Accession/Order Number: [id number] Exam Date: 08/05/2024 19:09 Report Date: 08/06/2024 [...] Signed By: 08/06/24 0753 DD/ 075 TD/TT: Dining Room Hostess: [facility] Radiology Study observation (narrative) [facility] US OB BPP W NON-STRESS Ordered By: Radiologist Radiology on 08-06-2024 [facility] Work Phone: US OB BPP W NON-STRESS on 08-01-2024 [place] [address] Ultrasound Report Signed Patient: RAPHAEL ELIZABETH MR#: [id number] : 1985 Acct:[id number] Age/Sex: 38 / F ADM Date: 07/29/24 Loc: US Attending Dr: Scooby Vega D.O. Ordering Physician: Scooby Vega D.O. Date of Service: 07/29/24 Procedure(s): US OB BPP w non-stress Accession Number(s): [id number] cc: Jen Granados M.D.; Scooby Vega D.O. [place] [address] Patient Name: RAPHAEL ELIZABETH MRN: [id number] date: 1985 Sex: F Assigned Patient Location: [facility] Current Patient Location: Accession/Order Number: [id number] Exam Date: 07/29/2024 19:04 Report Date: 08/01/2024 [...] M.D. Signed By: 08/01/24713 DD/ 0 TD/TT: Dining Room Hostess: [facility] Radiology, Radiologdora guillen MD - 08/01/2024 [place] [address] Ultrasound Report Signed Patient: RAPHAEL ELIZABETH MR#: [id number] : 1985 Acct:[id number] Age/Sex: 38 / F ADM Date: 07/29/24 Loc: US Attending Dr: Scooby Vega D.O. Ordering Physician: Scooby Vega D.O. Date of Service: 07/29/24 Procedure(s): US OB BPP w non-stress Accession Number(s): [id number] cc: Jen Granados M.D.; Scooby Vega D.O. The [place] [address] Patient Name: RAPHAEL ELIZABETH MRN: [facility]:[id number] date: 1985 Sex: F Assigned Patient Location: [facility] Current Patient Location: Accession/Order Number: [id number] Exam Date: 07/29/2024 19:04 Report Date: 08/01/2024 [...] M.D. Signed By: 08/01/2414 DD/ 0 TD/TT: Dining Room Hostess: [facility] Radiology Study observation (narrative) [facility] US OB BPP W NON-STRESS Ordered By: Radiologist Radiology on 08-01-2024 [facility] Work Phone: Urinalysis macro (dipstick) panel (U)on 08-01-2024 Bilirubin, UA Negative Negative - 4(70) +++ mg/dL [facility] Blood, UA Negative Negative - 50 Ulises/mcL [facility] Clarity, UA Clear [facility] Color, UA Yellow [facility] Glucose, UA Negative Negative - 1999(110) ++++ mg/dL [facility] Interpretation and review of laboratory results Abnormal [facility] Ketones, UA Negative Negative - 160(16) ++++ mg/dL [facility] Leukocytes, UA Trace Negative - 500+++ Clair/mcL [facility] Nitrite, UA Negative Negative - Positive [facility] pH, UA 7.5 5 - 9 [facility] Protein, UA Negative Negative - 1999(20) ++++ mg/dL [facility] Spec Grav, UA 1.015 1 - 1.03 [facility] Urobilinogen, UA 0.2 0.2 - 12 mg/dL [facility] Urinalysis macro (dipstick) panel (U)on 07-18-2024 Bilirubin, UA Negative Negative - 4(70) +++ mg/dL [facility] Blood, UA Negative Negative - 50 Ulises/mcL [facility] Clarity, UA Clear [facility] Color, UA Yellow [facility] Glucose, UA Negative Negative - 1999(110) ++++ mg/dL [facility] Interpretation and review of laboratory results Normal [facility] Ketones, UA Negative Negative - 160(16) ++++ mg/dL [facility] Leukocytes, UA Negative Negative - 500+++ Clair/mcL [facility] Nitrite, UA Negative Negative - Positive [facility] pH, UA 7 5 - 9 [facility] Protein, UA Negative Negative - 1999(20) ++++ mg/dL [facility] Spec Grav, UA 1.025 1 - 1.03 [facility] Urobilinogen, UA 0.2 0.2 - 12 mg/dL [facility] ALL CBC WITH AUTO DIFFon BASOPHILS ABSOLUTE AUTO 0 [facility] Basophils/100 WBC (Bld) 0.2 % 0.2 - 2.0 % [facility] Eosinophils/100 WBC (Bld) 0.9 % 0.9 - 7.0 % [facility] Erythrocyte distribution width (RBC) [Ratio] 13 % 11.0 - 15.0 % [facility] Hematocrit (Bld) [Volume fraction] 32.2 % Low 36.0 - 48.0 % [facility] Hemoglobin (Bld) [Mass/Vol] 10.9 g/dL Low 12.0 - 16.0 g/dL [facility] IMMATURE GRANULOCYTES ABS AUTO 0.13 High [facility] Immature granulocytes/100 WBC (Bld) 1.4 % High 0.0 - 0.5 % [facility] Interpretation and review of laboratory results Abnormal [facility] LYMPHOCYTES ABSOLUTE AUTO 1.4 [facility] Lymphocytes/100 WBC (Bld) 15.4 % Low 20.5 - 60.0 % [facility] MCH (RBC) [Entitic mass] 32.7 pg 26.7 - 34.0 pg [facility] MCHC (RBC) [Mass/Vol] 33.9 g/dL 29.9 - 35.2 g/dL [facility] MCV (RBC) [Entitic vol] 96.7 fL 81.0 - 99.0 fL [facility] MONOCYTES ABSOLUTE AUTO 0.5 [facility] Monocytes/100 WBC (Bld) 4.8 % 1.7 - 12.0 % [facility] NEUTROPHILS ABSOLUTE AUTO 7.2 High [facility] Neutrophils/100 WBC (Bld) 77.3 % High 43.0 - 75.0 % [facility] Platelet mean volume (Bld) [Entitic vol] 9.2 fL Low 9.5 - 13.5 fL [facility] TBH EO # 0.1 [facility] PLT 229 [facility] TB RBC 3.33 Low [facility] TB WBC 9.3 [facility] Urinalysis macro (dipstick) panel (U)on 06-30-2024 Bilirubin, UA Negative Negative - 4(70) +++ mg/dL [facility] Blood, UA Negative Negative - 50 Ulises/mcL [facility] Clarity, UA Clear [facility] Color, UA Yellow [facility] Glucose, UA Negative Negative - 1999(110) ++++ mg/dL [facility] Interpretation and review of laboratory results Abnormal [facility] Ketones, UA Negative Negative - 160(16) ++++ mg/dL [facility] Leukocytes, UA Trace Negative - 500+++ Clair/mcL [facility] Nitrite, UA Negative Negative - Positive [facility] pH, UA 8.5 5 - 9 [facility] Protein, UA Positive Negative - 1999(20) ++++ mg/dL [facility] Comment on above: trace Spec Grav, UA 1.015 1 - 1.03 [facility] Urobilinogen, UA 0.2 0.2 - 12 mg/dL [facility] Basophils/100 WBC Manual cnt (Bld)on 06-25-2024 Basophils/100 WBC (Bld) Basophils/100 leukocytes in Blood by Manual count Low 0.2-2.0 [facility] Eosinophils/100 WBC Manual c nt (Bld)on 06-25-2024 Eosinophils/100 WBC (Bld) Eosinophils/100 leukocytes in Blood by Manual count 0.9-7.0 [facility] Erythrocyte distribution wid th Auto (RBC) [Ratio]on 06-25-2024 Erythrocyte distribution width (RBC) [Ratio] Erythrocyte distribution width [Ratio] by Automated count 11.0-15.0 [facility] Estimated glomerular filtrat ion rate (GFR) non- Americanon 06-25-2024 GFR/1.73 sq M.predicted among non-blacks MDRD (S/P/Bld) [Vol rate/Area] Estimated glomerular filtration rate (GFR) non- >=60 mL/min/1.73 m 2 [facility] Hematocrit Auto (Bld) [Volum e fraction]on 06-25-2024 Hematocrit (Bld) [Volume fraction] Hematocrit [Volume Fraction] of Blood by Automated count Low 36.0-48.0 [facility] Hemoglobin [Mass/volume] in Bloodon 06-25-2024 Hemoglobin (Bld) [Mass/Vol] Hemoglobin [Mass/volume] in Blood Low 12.0-16.0 [facility] Laboratory - Chemistry and C hemistry - challengeon 06-25-2024 Calcium [Mass/Vol] 8.2 mg/dL Low 8.5-10.1 [facility] Chloride [Moles/Vol] 99 mmol/L 98-107 [facility] CO2 [Moles/Vol] 21.2 mmol/L 21.0-32.0 [facility] Creatinine [Mass/Vol] 0.89 mg/dL 0.55-1.02 [facility] GFR/1.73 sq M.predicted MDRD (S/P/Bld) [Vol rate/Area] mL/min/{1.73_m2} >=60 mL/min/1.73 m 2 [facility] Glucose [Mass/Vol] 98 mg/dL 74-106 [facility] Potassium [Moles/Vol] 3.7 mmol/L 3.5-5.1 [facility] Sodium [Moles/Vol] 130 mmol/L Low 136-145 [facility] Urea nitrogen [Mass/Vol] 7.0 mg/dL 7.0-18.0 [facility] Urea nitrogen/Creatinine [Mass ratio] 7.9 mg/mg [facility] Bilirubin Ql (U) Negative NEGATIVE [facility] Glucose (U) [Mass/Vol] Negative NEGATIVE [facility] Ketones Ql (U) 15 mg/dL Abnormal NEGATIVE [facility] pH (U) 7.5 [pH] 5.0-9.0 [facility] Specific gravity (U) [Rel density] 1.015 1.005-1.025 [facility] Urobilinogen Qn (U) 1.0 {Ree'U}/dL 0.2-1.0 [facility] Laboratory - Hematology and Cell countson 06-25-2024 Band form neutrophils/100 WBC (Bld) 2.0 % 0-5 [facility] Lymphocytes/100 WBC (Bld) 2.0 % Low 20.5-60.0 [facility] Monocytes/100 WBC (Bld) 5.0 % 1.7-12.0 [facility] Laboratory - Microbiology an d Antimicrobial susceptibilityon 06-25-2024 SARS-CoV-2 (COVID-19) RNA JUAN ANTONIO+probe Ql (Unsp spec) Negative NEGATIVE [facility] Comment on above: This test has [...] ationon 06-25-2024 Appearance (U) CLOUDY Abnormal CLEAR [facility] Color (U) DK YELLOW YELLOW [facility] Laboratory - Urinalysison Leukocyte esterase Test strip Ql (U) Negative NEGATIVE [facility] Nitrite Ql (U) Negative NEGATIVE [facility] Protein Ql (U) TRACE mg/dL NEG/TRACE [facility] Leukocytes [#/volume] correc leroy for nucleated erythrocytes in Blood by Automated counon 06-25-2024 WBC corrected for nucl RBC Auto (Bld) [#/Vol] Leukocytes [#/volume] corrected for nucleated erythrocytes in Blood by Automated coun 4.0-11.0 [facility] MCH Auto (RBC) [Entitic mass ]on 06-25-2024 MCH (RBC) [Entitic mass] MCH [Entitic mass] by Automated count 26.7-34.0 [facility] MCHC Auto (RBC) [Mass/Vol]on 06-25-2024 MCHC (RBC) [Mass/Vol] MCHC [Mass/volume] by Automated count 29.9-35.2 [facility] MCV Auto (RBC) [Entitic vol] on 06-25-2024 MCV (RBC) [Entitic vol] MCV [Entitic volume] by Automated count 81.0-99.0 [facility] No Panel Informationon 06-25 Absolute Basophils (Manual) 0.00 10 3/uL 0.00-0.10 [facility] Band Neutrophils # (Manual) 0.2 10 3/uL 0.0-0.3 [facility] Eosinophils # (Manual) 0.08 10 3/uL 0.00-0.70 [facility] Lymphocytes # (Manual) 0.16 10 3/uL Low 1.20-3.80 [facility] Monocytes # (Manual) 0.41 10 3/uL 0.30-0.80 [facility] Segmented Neutrophils # (Manual) 7.38 10 3/uL High 1.4-6.5 [facility] Urine Occult Blood Negative NEGATIVE [facility] Bedside Influenza Type A Antigen Positive Abnormal [facility] Comment on above: NOTE: Live attenuate d influenza vaccine viruses can cause apositive result for a rapid influenza diagnostic test ifadministered up to 7 days prior to rapid testing. Bedside Influenza Type B Antigen Negative [facility] Comment on above: Negative for Flu B p rotein antigen. Infection due to Flu Bcannot be ruled out. Flu B antigen in the sample may bebelow the detection limit of the test. Platelet mean volume Auto (B ld) [Entitic vol]on 06-25-2024 Platelet mean volume (Bld) [Entitic vol] Platelet mean volume [Entitic volume] in Blood by Automated count Low 9.5-13.5 [facility] Platelets Auto (Bld) [#/Vol] on 06-25-2024 Platelets (Bld) [#/Vol] Platelets [#/volume] in Blood by Automated count 150-450 [facility] RBC Auto (Bld) [#/Vol]on RBC (Bld) [#/Vol] Erythrocytes [#/volu me] in Blood by Automated count Low 4.20-5.40 [facility] Segmented neutrophils/100 WB C Manual cnt (Bld)on 06-25-2024 Segmented neutrophils/100 WBC (Bld) Manual blood segmented neutrophils/100 leukocytes High 43.0-75.0 [facility] Serum or plasma anion gap de terminationon 06-25-2024 Anion gap [Moles/Vol] Serum or plasma anion gap determination [facility] Urine Cultureon 06-25-2024 Bacteria identified Cx Nom (U) No Growth 2 Days PERFORMED BY: [place] [address] PATHOLOGIST POLITICAL SCIENTIST DANTE PALACIOS M.D. Normal [facility] Comment on above: Performed By: #### C UU #### [place] [id number] [facility] IGP,APTIMA HPV,AGE GDLNon AGE GDLN ACOG TESTING Note . [facility] Comment on above: TESTS RESULT FLAG UN ITS REF RANGE LAB Clinician Provided Cytology Information Source.............Cervix No. of containers..01 ThinPrep Vial Age Algo ACOG Annel... 30-65 01 FLAG LEGEND: L-Low Normal,H-High Normal,LL-Alert Low,HH-Alert High <-Panic Low,>-Panic High,A-Abnormal,AA-Critical Abnormal Performed at: 01 [facility] [address] [address] Kathryn Maldonado MD, HPV APTIMA Negative Negative [facility] Comment on above: This nucleic acid am plification test detects fourteen high- risk HPV types (16,18,31,33,35,39,45,51,52,56,58,59,66,68) without differentiation. Performed at: =G - [facility], [place] [id number] [employer] Maintainer: Kathryn Maldonado MD, Phone: [phone] Performed at: - [facility], [place] [id number] [employer] Maintainer: Kathryn Maldonado MD, Phone: [phone] IGP, APTIMA HPV, RFX 16/18,45 Note . [facility] Comment on above: TESTS RESULT FLAG U NITS REF RANGE LAB DIAGNOSIS: 02 NEGATIVE FOR INTRAEPITHELIAL LESION OR MALIGNANCY. Specimen adequacy: 02 Satisfactory for evaluation. Endocervical and/or squamous metaplastic cells (endocervical component) are present. Performed by: Elidia Shankar, Reel [employer]ade Bender Furnace Tender . 02 Note: Note 02 The Pap [...] <-Panic Low,>-Panic High,A-Abnormal,AA-Critical Abnormal Performed at: [address] [address] Kathryn Maldonado MD, BRUSH-SPATULA CERVIX [facility] RECURRENT VAGINITIS (HTRX)on 05-05-2024 ATOPOBIUM VAGINAE 0 [facility] ATOPOBIUM VAGINAE Not detected [facility] BVAB 2,3 (BACTERIAL VAGINOSIS ASSOCIATED BACTERIA 2, 3); MOBILUNCUS SPP 0 [facility] BVAB 2,3 (BACTERIAL VAGINOSIS ASSOCIATED BACTERIA 2, 3); MOBILUNCUS SPP Not detected [facility] JED ALBICANS, PARAPSILOSIS, TROPICALIS 0 [facility] JED ALBICANS, PARAPSILOSIS, TROPICALIS Not detected [facility] JED GLABRATA 0 [facility] JED GLABRATA Not detected [facility] JED KRUSEI 0 [facility] JED KRUSEI Not detected [facility] CHLAMYDIA TRACHOMATIS 0 [facility] CHLAMYDIA TRACHOMATIS Not detected [facility] GARDNERELLA VAGINALIS 0 [facility] GARDNERELLA VAGINALIS Not detected [facility] MEGASPHAERA (TYPES 1, 2) 0 [facility] MEGASPHAERA (TYPES 1, 2) Not detected [facility] MYCOPLASMA GENITALIUM 0 [facility] MYCOPLASMA GENITALIUM Not detected [facility] NEISSERIA GONORRHOEAE 0 [facility] NEISSERIA GONORRHOEAE Not detected [facility] TRICHOMONAS VAGINALIS 0 [facility] TRICHOMONAS VAGINALIS Not detected [facility] Urinalysis macro (dipstick) panel (U)on 05-03-2024 Bilirubin, UA Negative Negative - 4(70) +++ mg/dL [facility] Blood, UA Negative Negative - 50 Ulises/mcL [facility] Clarity, UA Clear [facility] Color, UA Yellow [facility] Glucose, UA Negative Negative - 1999(110) ++++ mg/dL [facility] Interpretation and review of laboratory results Normal [facility] Ketones, UA Negative Negative - 160(16) ++++ mg/dL [facility] Leukocytes, UA Negative Negative - 500+++ Clair/mcL [facility] Nitrite, UA Negative Negative - Positive [facility] pH, UA 0.5 5 - 9 [facility] Protein, UA Negative Negative - 1999(20) ++++ mg/dL [facility] Spec Grav, UA 1.025 1 - 1.03 [facility] Urobilinogen, UA 1.0 0.2 - 12 mg/dL [facility] Human papilloma virus 16+18+ 31+33+35+39+45+51+52+56+58+59+66+68 DNA [Presence] in Denis 05-02-2024 HPV 16+18+31+33+35+39+4 5+51+52+56+58+59+66 +68 DNA Probe+sig amp Ql (Cvx) Human papilloma virus 16+18+31+33+35+39+45+51+52+5 6+58+59+66+68 DNA [Presence] in Cer Negative [facility] Comment on above: This nucleic acid am plification test detects fourteen high- risk HPV types (16,18,31,33,35,39,45,51,52,56,58,59,66,68)without differentiation.Performed at: =G - [facility] [address] [id number] Director: Kathryn Maldonado MD, Phone: [phone] at: - [facility] [address] [id number] Director: Kathryn Maldonado MD, Phone: [phone] No Panel Informationon 05-02 HPV High Risk Other Comment Note . [facility] Comment on above: TESTS RESULT FLAG UN ITS REF RANGE LAB JESE GNOSIS: 02 NEGATIVE FOR INTRAEPITHELIAL LESION OR MALIGNANCY.Specimen adequacy: 02 Satisfactory for evaluation. Endocervical and/or squamous metaplastic cells (endocervical component) are present.Performed by: Elidia Shankar, Reel Blade Bender Furnace Tender. 02Note: Note 02 The Pap smear is [...] High <-Panic Low,>-Panic High,A-Abnormal,AA-Critical Abnormal --Performed at:[address] [id number] Kathryn Maldonado MD, Reference Lab Test Patient Age Note . [facility] Comment on above: TESTS RESULT FLAG UN ITS REF RANGE LAB Clinician Provided Cytology Information Source.............Cervix No. of containers..01 ThinPrep VialAge Richie SANDERS Annel... FLAG LEGEND: L-Low Normal,H-High Normal,LL-Alert Low,HH-Alert High <-Panic Low,>-Panic High,A-Abnormal,AA-Critical Abnormal --Performed at:01 =G [address] [place] [address] Kathryn Maldonado MD, AFP, SERUM, OPEN SPINA BIFID Aon 05-01-2024 AFP MOM 1.18 . [facility] AFP VALUE 61.8 ng/mL . [facility] COMMENT: Comment . [facility] Comment on above: Cydney Rodriguez , Ph.D., [facility] Director References: Available Upon Request. Multiples Of Median Cutoffs For AFP Elevations Chiang 2.5 Black 2.8 IDD 2.0 Twins 4.5 Abbreviation Definitions IDD - Insulin Dep Diabetes OSBR - Open Spina Bifida Risk For further inquiries contact [facility] [employer] [facility] at [phone]. This test was developed and its performance characteristics determined by [facility]. It has not been cleared or approved by the Food and Drug Administration. Performed at: [facility] [address] [place], [place] [id number] [employer] Advanced Operator Maintainer: Marissa Kovacs [facility], Phone: [phone] GEST. AGE ON COLLECTION DATE 19.0 . weeks [facility] GESTAT. AGE BASED ON LMP . [facility] Comment on above: Recalculations are n ot recommended when gestational dating by LMP and ultrasound are within 10 days. INSULIN DEP DIABETES No . [facility] INTERPRETATION Comment . [facility] Comment on above: Interpretation: Scre en Negative [...] Customer Services to discuss available options. The [employer] recommends amniocentesis be offered to women age 35 and older. [age] [facility] MULTIPLE GESTATION No . [facility] OSBR RISK 1 IN 6916 . [facility] RACE . [facility] RESULTS Report . [facility] TEST RESULTS: Negative . [facility] WEIGHT 135 . lbs [facility] N N LMP [id number] 3 15 N 1 Y 135 N N N N N White/ [facility] Alpha-fetoprotein (AFP) paige urement (sbcqrvro-fu-mbfznz)on 04-29-2024 AFP [MoM] Alpha-fetoprotein (A FP) measurement (xbogbkaf-qh-ziijiz) . [facility] Assess gestational ageon Gestational age Assess gestational age . [facility] Estimation of maternal age-s pecific risk of Down syndrome birthon 04-29-2024 Age [Time] Estimation of matern al age-specific risk of Down syndrome . [facility] Insulin dependent diabetes m ellitus detectionon 04-29-2024 Insulin dependent diabetes mellitus Ql Insulin dependent diabetes mellitus detection . [facility] Interpretation of serum or p lasma second trimester quad maternal screen (narrative reon 04-29-2024 Second trimester quad maternal screen Darshan [Interp] Interpretation of serum or plasma second trimester quad maternal screen (narrative re . [facility] Comment on above: Interpretation: Scre en [...] 04-29 AFP Triple Screen Comment Comment . [facility] Comment on above: Cydney Rodriguez , Ph.D., DABCCDirectorReferences: Available Upon Request.Multiples Of Median Cutoffs For AFP ElevationsSingleton 2.5 Black 2.8IDD 2.0 Twins 4.5 Abbreviation DefinitionsIDD - Insulin Dep DiabetesOSBR - Open Spina Bifida RiskFor further inquiries contact [employer] at [phone].This test was developed and its performance characteristicsdetermined by [facility]. It has not been cleared or approvedby the Food and Drug Administration.Performed at: - [facility] [id number] [place], [place] [id number] Director: Marissa Kovacs [facility], Phone: [phone] Alpha Fetoprotein Results Received Report . [facility] Gestational Age Calculation Method LMP . [facility] Comment on above: Recalculations are n ot recommended when gestational datingby LMP and ultrasound are within 10 days. Maternal Quad Test Risk 6916 . [facility] Maternal Race . [facility] Multiple No . [facility] Serum or plasma qtuzj-0-rkxq protein measurement (mass/volume)on 04-29-2024 AFP [Mass/Vol] Serum or plasma bourf-6-gplsqymptjj measurement (mass/volume) . [facility] BOX TEST SENT OUTon BOX TEST SENT OUT Y [facility] UNITY BOX [facility] ALL CBC WITH AUTO DIFFon BASOPHILS ABSOLUTE AUTO 0.0 [facility] Basophils/100 WBC (Bld) 0.5 % 0.2 - 2.0 % [facility] Eosinophils/100 WBC (Bld) 0.9 % 0.9 - 7.0 % [facility] Erythrocyte distribution width (RBC) [Ratio] 11.9 % 11.0 - 15.0 % [facility] Hematocrit (Bld) [Volume fraction] 37.3 % 36.0 - 48.0 % [facility] Hemoglobin (Bld) [Mass/Vol] 12.7 g/dL 12.0 - 16.0 g/dL [facility] IMMATURE GRANULOCYTES ABS AUTO 0.02 [facility] Immature granulocytes/100 WBC (Bld) 0.3 % 0.0 - 0.5 % [facility] Interpretation and review of laboratory results Abnormal [facility] LYMPHOCYTES ABSOLUTE AUTO 1.8 [facility] Lymphocytes/100 WBC (Bld) 27.4 % 20.5 - 60.0 % [facility] MCH (RBC) [Entitic mass] 32.2 pg 26.7 - 34.0 pg [facility] MCHC (RBC) [Mass/Vol] 34.0 g/dL 29.9 - 35.2 g/dL [facility] MCV (RBC) [Entitic vol] 94.4 fL 81.0 - 99.0 fL [facility] MONOCYTES ABSOLUTE AUTO 0.3 [facility] Monocytes/100 WBC (Bld) 5.1 % 1.7 - 12.0 % [facility] NEUTROPHILS ABSOLUTE AUTO 4.4 [facility] Neutrophils/100 WBC (Bld) 65.8 % 43.0 - 75.0 % [facility] Platelet mean volume (Bld) [Entitic vol] 9.4 fL Low 9.5 - 13.5 fL [facility] TBH EO # 0.1 [facility] TB PLT [address] [facility] RBC 3.95 Low [facility] WBC 6.6 [facility] HCG ( test) Ql (U)o n 02-12-2024 Interpretation and review of laboratory results Abnormal [facility] Preg Test, Ur Positive Critical [facility] hospital Urinalysis macro (dipstick) panel (U)on 02-12-2024 Bilirubin, UA Negative Negative - 4(70) +++ mg/dL [facility] Blood, UA Negative Negative - 50 Ulises/mcL [facility] Clarity, UA Clear [facility] Color, UA Yellow [facility] Glucose, UA Negative Negative - 1999(110) ++++ mg/dL [facility] Interpretation and review of laboratory results Normal [facility] Ketones, UA Negative Negative - 160(16) ++++ mg/dL [facility] Leukocytes, UA Negative Negative - 500+++ Clair/mcL [facility] Nitrite, UA Negative Negative - Positive [facility] pH, UA 6.5 5 - 9 [facility] Protein, UA Negative Negative - 1999(20) ++++ mg/dL [facility] Spec Grav, UA 1.015 1 - 1.03 [facility] Urobilinogen, UA 1.0 0.2 - 12 mg/dL Critical [facility] hospital No Panel Informationon 11-29 Human Chorionic Gonadotropin, Quant 2 mIU/mL [facility] Comment on above: 5-50 0.2-1 RCIW14-19 0 1-2 UEJRM837-6,000 2-3 UNBZS803-07,000 3-4 WEEKS1,000-50,000 4-5 WEEKS10,000-100,000 5-6 WEEKS15,000-200,000 6-8 WEEKS10,000-100,000 2-3 MONTHS No Panel Informationon 11-22 Human Chorionic Gonadotropin, Quant 3 mIU/mL [facility] Comment on above: 5-50 0.2-1 SRXE19-14 0 1-2 AKUJA652-2,000 2-3 DNKWB486-90,000 3-4 WEEKS1,000-50,000 4-5 WEEKS10,000-100,000 5-6 WEEKS15,000-200,000 6-8 WEEKS10,000-100,000 2-3 MONTHS No Panel Informationon 11-16 Human Chorionic Gonadotropin, Quant 6 mIU/mL [facility] Comment on above: 5-50 0.2-1 VYES29-35 0 1-2 YLECS955-0,000 2-3 FPWVZ187-86,000 3-4 WEEKS1,000-50,000 4-5 WEEKS10,000-100,000 5-6 WEEKS15,000-200,000 6-8 WEEKS10,000-100,000 2-3 MONTHS No Panel Informationon 11-08 Human Chorionic Gonadotropin, Quant 27 mIU/mL [facility] Comment on above: 5-50 0.2-1 GBPT61-16 0 1-2 DWBLT840-9,000 2-3 GJYLN731-40,000 3-4 WEEKS1,000-50,000 4-5 WEEKS10,000-100,000 5-6 WEEKS15,000-200,000 6-8 WEEKS10,000-100,000 2-3 MONTHS Basophils Auto (Bld) [#/Vol] on 10-23-2023 Basophils (Bld) [#/Vol] 0.0 10 3/uL 0.0-0.1 [facility] Basophils/100 WBC Auto (Bld) on 10-23-2023 Basophils/100 WBC (Bld) 0.8 % 0.2-2.0 [facility] Eosinophils/100 WBC Auto (Bl d)on 10-23-2023 Eosinophils/100 WBC (Bld) 1.4 % 0.9-7.0 [facility] Erythrocyte distribution wid th Auto (RBC) [Ratio]on 10-23-2023 Erythrocyte distribution width (RBC) [Ratio] 11.9 % 11.0-15.0 [facility] Hematocrit Auto (Bld) [Volum e fraction]on 10-23-2023 Hematocrit (Bld) [Volume fraction] 36.0 % 36.0-48.0 [facility] Hemoglobin [Mass/volume] in Bloodon 10-23-2023 Hemoglobin (Bld) [Mass/Vol] 11.8 g/dL 12.0-16.0 [facility] Krzysztof 10-23-2023 L Specimen: [id number] eceived: 10/26/23 Status: MAIA Newell Num: [id number] Spec Type: Surgical Subm Dr: Scooby Vega Tissues: A Products of Conception - Spontaneous or Missed (POC) Procedures: HE/3, Gross/Micro L4 Age/ Patient Sex Location Account Attending Physician Raphael Elizabeth 37/F LABELL [id number] Scooby Vega SPEC NUM: [id number] RECD: 10/26/23 STATUS: RINAShayy NEWELL NUM: [id number] JANIE: 10/23/[address]: Scooby Vega ENTERED: 10/26/[address] [facility] [address]: H[facility]ctor,Lab SPEC TYPE: Surgical DEPT: [...] cm possible area of villous tissue identified. Assembler Final sections to include the possible villous tissue are submitted in A1?A3. Clinical history: Missed CPT Codes 37065 -------- -------- Specimen: [id number] Received: 10/26/23 Status: MAAI Newell Num: [id number] Spec Type: Surgical Subm Dr: Scooby Vega Tissues: A Products of Conception - Spontaneous or Missed (POC) Procedures: HE/3, Gross/Micro L4 -------- Patient: Raphael Elizabeth [id number] (Continued) -------- Signed (signature on file) Dante Palacios MD 10/27/23 1511 Normal [facility] - Hematology and Cell countson 10-23-2023 Immature granulocytes/100 WBC (Bld) 0.2 % 0.0-0.5 [facility] Leukocytes [#/volume] correc leroy for nucleated erythrocytes in Blood by Automated counon 10-23-2023 WBC corrected for nucl RBC Auto (Bld) [#/Vol] 5.1 10 3/uL 4.0-11.0 [facility] Lymphocytes Auto (Bld) [#/Vo l]on 10-23-2023 Lymphocytes (Bld) [#/Vol] 1.7 10 3/uL 1.2-3.8 [facility] Lymphocytes/100 WBC Auto (Bl d)on 10-23-2023 Lymphocytes/100 WBC (Bld) 32.8 % 20.5-60.0 [facility] MCH Auto (RBC) [Entitic mass ]on 10-23-2023 MCH (RBC) [Entitic mass] 31.1 pg 26.7-34.0 [facility] MCHC Auto (RBC) [Mass/Vol]on 10-23-2023 MCHC (RBC) [Mass/Vol] 32.8 g/dL 29.9-35.2 [facility] MCV Auto (RBC) [Entitic vol] on 10-23-2023 MCV (RBC) [Entitic vol] 95.0 fL 81.0-99.0 [facility] Monocytes Auto (Bld) [#/Vol] on 10-23-2023 Monocytes (Bld) [#/Vol] 0.3 10 3/uL 0.3-0.8 [facility] Monocytes/100 WBC Auto (Bld) on 10-23-2023 Monocytes/100 WBC (Bld) 5.5 % 1.7-12.0 [facility] Neutrophils Auto (Bld) [#/Vo l]on 10-23-2023 Neutrophils (Bld) [#/Vol] 3.0 10 3/uL 1.4-6.5 [facility] Neutrophils/100 WBC Auto (Bl d)on 10-23-2023 Neutrophils/100 WBC (Bld) 59.3 % 43.0-75.0 [facility] No Panel Informationon 10-22 Eosinophils # (Auto) 0.1 10 3/uL 0.0-0.7 [facility] Immature Granulocyte # (Auto) 0.01 10 3/uL 0.00-0.03 [facility] Platelet mean volume Auto (B ld) [Entitic vol]on 10-23-2023 Platelet mean volume (Bld) [Entitic vol] 9.0 fL 9.5-13.5 [facility] Platelets Auto (Bld) [#/Vol] on 10-23-2023 Platelets (Bld) [#/Vol] 182 10 3/uL 150-450 [facility] RBC Auto (Bld) [#/Vol]on RBC (Bld) [#/Vol] 3.79 10 6/uL 4.20-5.40 [facility] No Panel Informationon 10-11 Human Chorionic Gonadotropin, Quant 38454 mIU/mL [facility] Comment on above: 5-50 0.2-1 SPKI23-26 0 1-2 CNJNE652-3,000 2-3 QRNXV862-84,000 3-4 WEEKS1,000-50,000 4-5 WEEKS10,000-100,000 5-6 WEEKS15,000-200,000 6-8 WEEKS10,000-100,000 2-3 MONTHS No Panel Informationon 10-06 Human Chorionic Gonadotropin, Quant 28396 mIU/mL [facility] Comment on above: 5-50 0.2-1 PUQW45-25 0 1-2 AWXZJ273-8,000 2-3 IYFVF684-16,000 3-4 WEEKS1,000-50,000 4-5 WEEKS10,000-100,000 5-6 WEEKS15,000-200,000 6-8 WEEKS10,000-100,000 2-3 MONTHS No Panel Informationon 10-04 Human Chorionic Gonadotropin, Quant 74866 mIU/mL [facility] Comment on above: 5-50 0.2-1 DGSS46-29 0 1-2 TGIDJ611-0,000 2-3 LCCQD354-00,000 3-4 WEEKS1,000-50,000 4-5 WEEKS10,000-100,000 5-6 WEEKS15,000-200,000 6-8 WEEKS10,000-100,000 2-3 MONTHS PAP ACOG PANEL 2: 30 to 65on 03-11-2022 . . Normal [facility] Comment on above: Result Comment: Perf ormed at: WB Performed By: #### [id number] #### [facility] [address] [place] [address] Dr. Danni Jacobs Age Gdln ACOG Testing 30-65 Normal [place] Comment on above: Performed By: #### [id number] #### [facility] [address] [place] [address] Dr. Danni Jacobs DIAGNOSIS: Comment Normal [place] Comment on above: Result Comment: NEGA TIVE FOR INTRAEPITHELIAL LESION OR MALIGNANCY. THIS SPECIMEN WAS RESCREENED PART OF OUR HI LO DRIVER PROGRAM. Performed at: WB Performed By: #### [id number] #### [facility] [address] [place] [address] Dr. Danni Jacobs HPV Aptima Negative Normal Negative [place] Comment on above: Result Comment: This nucleic acid amplification test detects fourteen high-risk HPV types (16,18,31,33,35,39,45,51,52,56,58,59,66,68) without differentiation. Performed at: =G Performed By: #### [id number] #### [facility] [address] [place] [address] Dr. Danni Jacobs Methodology: Comment Normal [place] Comment on above: Result Comment: This liquid based ThinPrep(R) pap test was screened with the use of an image guided system. Performed at: WB Performed By: #### [id number] #### [facility] [address] [place] [address] Dr. Danni Jacobs Note: Comment Normal [place] Comment on above: Result Comment: The Pap smear is a screening test designed to aid in the detection of premalignant and malignant conditions of the uterine cervix. It is not a diagnostic procedure and should not be used as the sole means of detecting cervical cancer. Both false-positive and false-negative reports do occur. . Performed at: WB Performed By: #### [id number] #### [facility] [address] [place] [address] Dr. Danni Jacobs Performed by: Comment Normal [facility] Comment on above: Result Comment: [place] Reel Blade Bender Furnace Tender (ASCP) Performed at: WB Performed By: #### [id number] #### [facility] [address] [address] [address] Danni Jacobs QC reviewed by: Comment Normal [facility] Comment on above: Result Comment: Betzaida Ge, Supervisory Reel Blade Bender Furnace Tender (ASCP) Performed at: WB Performed By: #### [id number] #### [facility] [address] [address] [address] Danni Jacobs Specimen adequacy: Comment Normal [facility] Comment on above: Result Comment: Sati sfactory for evaluation. Endocervical and/or squamous metaplastic cells (endocervical component) are present. Performed at: WB Performed By: #### [id number] #### [facility] [address] [address] [address] Danni Jacobs GLUCOSE BLOODon 04-22-2021 Glucose [Mass/Vol] 99 mg/dL Normal 74-106 [facility] Comment on above: Performed By: #### G YOSEPH, LIPID #### [facility] [address] [address] [address] Danni Jacobs LIPID PROFILEon 04-22-2021 CHOL-HDL RATIO NORM SEE BELOW Normal [facility] Comment on above: Result Comment: 3.3 - 4.4 LOW RISK 4.4 - 7.1 AVERAGE RISK 7.1 - 11.0 MODERATE RISK >11.0 HIGH RISK Performed By: #### G YOSEPH, LIPID #### [facility] [address] [address] [address] Danni Jacobs Cholesterol [Mass/Vol] 157 mg/dL Normal <=200 [place] Comment on above: Performed By: #### G YOSEPH, LIPID #### [facility] [address] [address] [address] Danni Jacobs Cholesterol in HDL [Mass/Vol] 74 mg/dL Normal [place] Comment on above: Performed By: #### G YOSEPH, LIPID #### [facility] [address] [address] [address] Danni Jacobs Cholesterol in LDL [Mass/Vol] 71.2 mg/dL Normal [place] Comment on above: Performed By: #### G YOSEPH, LIPID #### [facility] [address] [address] [address] Danni Jacobs Cholesterol.total/C holesterol in HDL [Mass ratio] 2.1 {ratio} Normal [place] Comment on above: Performed By: #### G YOSEPH, LIPID #### [facility] [address] [address] [address] Danni Jacobs HDL NORMAL > or = 60 mg/dl - LO W CARDIOVASCULAR RISK <40 mg/dl - HIGH CARDIOVASCULAR RISK Normal [place] Comment on above: Performed By: #### G YOSEPH, LIPID #### [facility] [address] [address] [address] Danni Jacobs LDL CALC NORMAL SEE BELOW Normal [facility] Comment on above: Result Comment: <100 mg/dl OPTIMAL 100 - 129 mg/dl NEAR OR ABOVE OPTIMAL 130 - 159 mg/dl BORDERLINE HIGH 160 - 189 mg/dl HIGH >190 mg/dl VERY HIGH Performed By: #### G YOSEPH, LIPID #### [facility] [address] [address] [address] Danni Jacobs Triglyceride [Mass/Vol] 59 mg/dL Normal <=150 [place] Comment on above: Performed By: #### G YOSEPH, LIPID #### [facility] [address] [address] [address] Danni Jacobs VLDL CALC 11.8 mg/dL Normal [place] Comment on above: Performed By: #### G YOSEPH, LIPID #### [facility] [address] [address] [address] Danni Jacobs Vital Signs Date Time Vital Sign Value Performing Clinician Faci lity 08-01-2024 13:55-0500 Body mass index (BMI) [Ratio] 22.87 kg/m2 [employer] Work Phone: [facility] 08-01-2024 13:55-0500 Body weight 66.22 kg [employer] Work Phone: [facility] 08-01-2024 13:55-0500 Diastolic blood pressure 74 mm[Hg] [employer] Work Phone: [facility] 08-01-2024 13:55-0500 Systolic blood pressure 116 mm[Hg] Scooby Gary DO Work Phone: [facility] 07-18-2024 15:05-0500 Body mass index (BMI) [Ratio] 22.84 kg/m2 Scooby Gary DO Work Phone: [facility] 07-18-2024 15:05-0500 Body weight 66.13 kg Scooby Gary DO Work Phone: [facility] 07-18-2024 15:05-0500 Diastolic blood pressure 70 mm[Hg] Scooby Gary DO Work Phone: [facility] 07-18-2024 15:05-0500 Systolic blood pressure 118 mm[Hg] Scooby Gary DO Work Phone: [facility] 06-30-2024 12:01-0500 Body mass index (BMI) [Ratio] 22.26 kg/m2 Scooby Gary DO Work Phone: [facility] 06-30-2024 12:01-0500 Body weight 64.47 kg Scooby Gary DO Work Phone: [facility] 06-30-2024 12:01-0500 Diastolic blood pressure 70 mm[Hg] Scooby Gary DO Work Phone: [facility] 06-30-2024 12:01-0500 Systolic blood pressure 110 mm[Hg] Scooby Gary DO Work Phone: [facility] 06-02-2024 10:45-0500 Body mass index (BMI) [Ratio] 21.9 kg/m2 Scooby Gary DO Work Phone: [facility] 06-02-2024 10:45-0500 Body weight 63.41 kg Scooby Gary DO Work Phone: [facility] 06-02-2024 10:45-0500 Diastolic blood pressure 72 mm[Hg] Scooby Gary DO Work Phone: [facility] 06-02-2024 10:45-0500 Systolic blood pressure 116 mm[Hg] Scooby Gary DO Work Phone: [facility] 05-02-2024 16:20-0500 Body mass index (BMI) [Ratio] 21.61 kg/m2 Emely Hunter PA Work Phone: [facility] 05-02-2024 16:20-0500 Body weight 62.6 kg Emely Hunter PA Work Phone: [facility] 05-02-2024 16:20-0500 Diastolic blood pressure 68 mm[Hg] Emely Bola PA Work Phone: [facility] 05-02-2024 16:20-0500 Systolic blood pressure 120 mm[Hg] Emely Bola PA Work Phone: [facility] 04-29-2024 11:40-0500 Body weight Jen Granados MD Work Phone: [facility] 04-04-2024 14:55-0400 Body mass index (BMI) [Ratio] 21.27 kg/m2 Scooby Gary DO Work Phone: [facility] 04-04-2024 14:55-0400 Body weight 61.6 kg Scooby Gary DO Work Phone: [facility] 04-04-2024 14:55-0400 Diastolic blood pressure 70 mm[Hg] Scooby Gary DO Work Phone: [facility] 04-04-2024 14:55-0400 Systolic blood pressure 116 mm[Hg] Scooby Gary DO Work Phone: [facility] 03-07-2024 10:47-0400 Body mass index (BMI) [Ratio] 20.07 kg/m2 Scooby Gary DO Work Phone: [facility] 03-07-2024 10:47-0400 Body weight 58.12 kg Scooby Gary DO Work Phone: [facility] 03-07-2024 10:47-0400 Diastolic blood pressure 68 mm[Hg] Scooby Gary DO Work Phone: [facility] 03-07-2024 10:47-0400 Systolic blood pressure 114 mm[Hg] Scooby Gary DO Work Phone: [facility] 12-01-2023 16:10-0400 Body height 170.18 cm Scooby Gary Work Phone: [facility] 12-01-2023 16:10-0400 Body mass index (BMI) [Ratio] 19.5 kg/m2 Scooby Gary Work Phone: [facility] 12-01-2023 16:10-0400 Body weight 56.69 kg Scooby Gary Work Phone: [facility] 12-01-2023 16:10-0400 Diastolic blood pressure 78 mm[Hg] Scooby Gary Work Phone: [facility] 12-01-2023 16:10-0400 Systolic blood pressure 112 mm[Hg] Scooby Gary Work Phone: [facility] Encounters Encounter Date Encounter Type Care [...] 06-25-2024 ambulatory Jen Granados MD Work Phone: [facility] Work Phone: Start: 06-25-2024 End: 06-25-2024 Departed Referred Jen Granados MD Work Phone: [facility] Start: 06-25-2024 Non-patient / Non-visit Jen Granados MD Work Phone: [facility] Work Phone: Start: 06-02-2024 End: [...] control unspecified; Elevated glucose tolerance test Start: 05-02-2024 Non-patient / Non-visit Jen Granados MD Work Phone: [facility] Work Phone: Start: 05-02-2024 End: 05-02-2024 ambulatory EMELY HUNTER Not Available Start: 05-02-2024 End: 05-02-2024 Patient encounter procedure Emely COBB Work Phone: [facility] Work Phone: Start: 05-02-2024 End: 05-02-2024 [...] / Non-visit Jen Granados MD Work Phone: [facility] Work Phone: Start: 04-04-2024 End: 04-04-2024 flow sheet Scooby [...] BCP OB Start: 04-04-2024 End: 04-04-2024 ambulatory [facility] Start: 04-01-2024 End: 04-01-2024 Bamboo flowsheet Gretchen [...] Start: 03-07-2024 End: 03-07-2024 Bamboo flowsheet Scooby Vega DO Work Phone: [...] CI PT Start: 02-08-2024 End: 02-08-2024 ambulatory [facility] Start: 02-08-2024 ambulatory [facility] Start: 12-01-2023 End: 12-01-2023 ambulatory Scooby Gary Work Phone: [facility] Work Phone: Start: 12-01-2023 End: 12-01-2023 Patient encounter procedure Scooby Gary Work Phone: [facility] Work Phone: Start: 11-30-2023 Non-patient / Non-visit Scooby Gary Work Phone: [facility] Work Phone: Start: 11-23-2023 Non-patient / Non-visit Scooby Gary Work Phone: [facility] Work Phone: Start: 11-17-2023 Non-patient / Non-visit Scooby Gary Work Phone: [facility] Work Phone: Start: 11-09-2023 Non-patient / Non-visit Scooby Gary Work Phone: [facility] Work Phone: Start: 11-09-2023 End: 11-09-2023 ambulatory EMELY HUNTER Not Available Start: 10-23-2023 End: 10-23-2023 ambulatory Scooby Gary [facility] Work Phone: Start: 10-23-2023 End: 10-23-2023 Departed Referred Scooby Gary Work Phone: [facility] [place] [facility] Start: 10-23-2023 Non-patient / Non-visit Scooby Gary Work Phone: [facility] Work Phone: Start: 10-12-2023 Non-patient / Non-visit Scooby Gary Work Phone: [facility] Work Phone: Start: 10-07-2023 Non-patient / Non-visit Scooby Gary Work Phone: [facility] Work Phone: Start: 10-05-2023 Non-patient / Non-visit Scooby Gary Work Phone: [facility] Work Phone: Start: 03-03-2022 End: 03-03-[address] SCOOBY VEGA Facility:[facility] Start: 04-28-2021 Encounter for genera l adult medical examination without abnormal findings DR DALTON LOGAN [place] Start: 04-22-2021 End: 04-23-[address] DALTON LOGAN Facility:[facility] Start: 04-22-2021 End: 04-23-2021 Encounter for general adult medical examination without abnormal findings DR DALTON LOGAN Facility:[facility] Procedures Date Procedure Procedure Detail Performing Clinician Start: 08-06-2024 US OB BPP W NON-STRESS Scooby Gary DO Work Phone: Start: 08-01-2024 Urnls dip stick/tabl et rgnt non-auto w/o micrscp Scooby Gary DO Work Phone: Start: 08-01-2024 OB BPP W NON-STRESS Scooby Gary DO [...] HPV,AGE GDLN Emely COBB Work Phone: Start: 04-29-2024 AFP, SERUM, OPEN SPI NA BIFIDA Scooby Gary DO Work Phone: Start: 04-04-2024 Follow-up visit Follow-up ASHLEY ROCK Start: 02-26-2024 TBH BOX TEST SENT OUT C orey Gary DO Work Phone: Start: 02-16-2024 ALL CBC WITH AUTO DIFF Scooby Gary DO Work Phone: Start: 02-12-2024 End: 02-12-2024 Urnls dip stick/tablet rgnt non-auto w/o micrscp Scooby Gary DO Work Phone: Plan of Treatment Date Care Activity Detail Author Start: 08-18-2024 End: 08-18-2024 Patient encounter procedure 08/18/2024 9:20 AM EST Routine [facility] [address] [place] [phone] Scooby Vega, DO [address] [place] [address] [facility] Start: 08-01-2024 End: 08-01-2024 Patient encounter procedure 08/01/2024 1:20 PM EST Routine [facility] [address] [place] [phone] Scooby Vega, DO [address] [place] [address] [facility] Start: 07-18-2024 End: 07-18-2024 Patient encounter procedure 07/18/2024 2:30 PM EST Routine [facility] [address] [place] [phone] Scooby Vega, DO [facility] [place] [address] [facility] Start: 07-18-2024 End: 07-18-2025 [...] control unspecified Expected: 06/30/2024 (Approximate), Expires: 06/30/2025 [facility] Healthcare Comment on above: Expected: 06/30/2024 (Approximate), Expires: 06/30/2025 Start: 06-30-2024 End: 06-30-2025 US for US OB follow up transabdominal approach Imaging Routine Gestational diabetes mellitus (GDM), antepartum, gestational diabetes method of control unspecified Expected: 06/30/2024, Expires: 06/30/2025 [facility] Healthcare Work Phone: Comment on above: Expected: 06/30/2024 , Expires: 06/30/2025 Start: 06-30-2024 End: 06-30-2024 Patient encounter procedure 06/30/2024 11:50 AM EST Routine [facility] [address] [place] [phone] Scooby Vega DO [address] [place] [address] [facility] OB Start: 06-25-2024 Urine culture [facility] Start: 06-25-2024 Bacteria identified in Urine by Culture Urine Culture [facility] Start: 06-02-2024 End: 06-02-2025 CBC panel - Blood by Automated count CBC Lab Routine Diabetes mellitus screening Expected: 06/02/2024 (Approximate), Expires: 06/02/2025 [facility] Work Phone: Comment on above: Expected: 06/02/2024 (Approximate), Expires: 06/02/2025 Start: 06-02-2024 End: 06-02-2025 Measurement of glucose 1 hour after glucose challenge for glucose tolerance test Glucose tolerance, 1 hour Lab Routine Diabetes mellitus screening Expected: 06/02/2024 (Approximate), Expires: 06/02/2025 [facility] Comment on above: Expected: 06/02/2024 (Approximate), Expires: 06/02/2025 Start: 06-02-2024 End: 06-02-2024 Patient encounter procedure 06/02/2024 10:10 AM EST Routine [facility] [address] [place] [address] Scooby Vega, DO [address] [place] [address] [facility] Start: 05-02-2024 End: 05-02-2024 Patient encounter procedure 05/02/2024 3:30 PM EST Routine [facility] [address] [place] [address] Emely Hunter PA [address] [place] [address] [facility] Start: 05-02-2024 End: 10-30-2024 [...] EST Office Visit [facility] [address] [place] [phone] Scooby Vega, DO [address] [facility] [address] [place] [address] [facility] Start: 04-04-2024 End: 04-04-2024 [...] Treatment [facility] [address] [facility] [address] [place] [address] Gretchen Moreno, PT [facility] Start: 03-23-2024 End: 03-23-2024 ambulatory 03/23/2024 1:00 PM EDT Treatment [facility] [address] [facility] [address] [place] [address] Gretchen Moreno, PT [facility] Start: 03-18-2024 End: 03-18-2024 ambulatory 03/18/2024 1:30 PM EDT Treatment [facility] [address] [facility] [address] [place] [address] Gretchen Moreno, PT [facility] Start: 03-11-2024 End: 03-11-2024 ambulatory 03/11/2024 1:30 PM EDT Treatment [facility] [address] [facility] [address] [place] [address] Gretchen Moreno, PT [facility] Start: 03-07-2024 End: 03-07-2024 Patient encounter procedure 03/07/2024 10:10 AM EDT Routine [facility] [address] [place] [address] Scooby Vega, DO [address] [place] [address] [facility] Start: 03-03-2024 End: 03-03-2024 ambulatory 03/03/2024 10:30 AM EDT Treatment [facility] [address] [facility] [address] [place] [address] Gretchen Moreno, PT [facility] Start: 02-26-2024 End: 02-26-2024 ambulatory 02/26/2024 1:30 PM EDT Treatment [facility] [address] [facility] [address] [place] [address] Gretchen Moreno, PT Arrived [facility] Comment on above: Arrived Start: 02-25-2024 End: 02-25-2024 ambulatory 02/25/2024 10:30 AM EDT Treatment [facility] [address] [facility] [address] [place] [address] Gretchen Moreno, PT [facility] Start: 02-17-2024 End: 02-17-2024 ambulatory 02/17/2024 12:00 PM EDT Treatment [facility] [address] [facility] [address] [place] [address] Gretchen Moreno, PT [facility] Start: 02-12-2024 End: 02-11-2025 ABO/Rh ABO/Rh Lab Routine Missed menses Expected: 02/12/2024 (Approximate), Expires: 02/11/2025 [facility] Healthcare Comment on above: Expected: 02/12/2024 (Approximate), Expires: 02/11/2025 Start: 02-12-2024 End: 02-11-2025 Blood type and Indirect antibody screen panel - Blood Type and screen Lab Routine Missed menses Expected: 02/12/2024 (Approximate), Expires: 02/11/2025 [facility] Healthcare Work Phone: Comment on above: Expected: 02/12/2024 (Approximate), Expires: 02/11/2025 Start: 02-12-2024 End: 02-11-2025 US Pelvis transvaginal US OB transvaginal Imaging Routine Missed menses Expected: 02/12/2024 (Approximate), Expires: 02/11/2025 [facility] Healthcare Comment on above: Expected: 02/12/2024 (Approximate), Expires: 02/11/2025 Start: 02-12-2024 End: 02-12-2024 ambulatory 02/12/2024 10:30 AM EDT Initial [facility] [address] [place] [address] [facility] Start: 02-12-2024 End: 02-12-2024 Professional / ancillary services management 02/12/2024 10:00 AM EDT Ancillary Procedure [facility] [address] [place] [address] [facility] Start: 02-10-2024 End: 02-10-2024 ambulatory 02/10/2024 5:00 PM EDT Evaluation [facility] [address] [facility] [address] [place] [address] Gretchen Moreno, PT Arrived [facility] Comment on above: Arrived Bacteria identified in Urine by Culture Urine culture Microbiology Routine Missed menses Ordered: 02/12/2024 [facility] Comment on above: Ordered: 02/12/2024 CBC W Auto Different ial panel - Blood CBC and differential Lab Routine Missed menses Ordered: 02/12/2024 [facility] Comment on above: Ordered: 02/12/2024 CHLAMYDIA TRACHOMATI S (GENITO/STI) CHLAMYDIA TRACHOMATIS (GENITO/STI) Lab Routine STD exposure Ordered: 05/02/2024 [facility] Comment on above: Ordered: 05/02/2024 Cytology Cervical or vaginal smear or scraping study Pap Smear Pathology and Cytology Routine Well woman exam with routine gynecological exam Ordered: 05/02/2024 [facility] Comment on above: Ordered: 05/02/2024 Hemoglobin A1c/Hemoglobin.total in Blood Hemoglobin A1c Lab Routine Missed menses Ordered: 02/12/2024 [facility] Comment on above: Ordered: 02/12/2024 Hepatitis B virus surface Ag [Presence] in Serum or Plasma by Immunoassay Hepatitis B surface antigen Lab Routine Missed menses Ordered: 02/12/2024 [facility] Comment on above: Ordered: 02/12/2024 Hepatitis C virus Ab [Presence] in Serum or Plasma by Immunoassay Hepatitis C antibody Lab Routine Missed menses Ordered: 02/12/2024 [facility] Comment on above: Ordered: 02/12/2024 HIV-1/HIV-2 antigen/antibody combination immunoassay HIV-1 and HIV-2 antibodies Lab Routine Missed menses Ordered: 02/12/2024 [facility] Comment on above: Ordered: 02/12/2024 Human papilloma viru s DNA [Presence] in Unspecified specimen by Probe with amplification HPV DNA probe, amplified Microbiology Routine Well woman exam with routine gynecological exam Ordered: 05/02/2024 [facility] Comment on above: Ordered: 05/02/2024 Neisseria gonorrhoea e DNA [Presence] in Unspecified specimen by JUAN ANTONIO with probe detection Neisseria gonorrhea DNA probe, direct Lab Routine STD exposure Ordered: 05/02/2024 [facility] Comment on above: Ordered: 05/02/2024 Reagin Ab [Presence] in Serum by RPR RPR Lab Routine Missed menses Ordered: 02/12/2024 [facility] Comment on above: Ordered: 02/12/2024 Rubella antibody, IgG Rubella an tibody, IgG Lab Routine Missed menses Ordered: 02/12/2024 [facility] Comment on above: Ordered: 02/12/2024 SURESWAB(R) ADVANCED VAGINITIS PLUS, TMA SURESWAB(R) ADVANCED VAGINITIS PLUS, TMA Pathology and Cytology Routine Vaginal discharge Ordered: 05/02/2024 [facility] Work Phone: Comment on above: Ordered: 05/02/2024 XR Hip - left 2 Views [facility] Payers Date Payer Category Payer Private Health Insurance ESTELA Decker [id number] 2022 Unknown NILAM Decker [place] [id number] 2022-Present [phone] [address] [place] [phone] 1987 Unknown [id number] 2.16.840.1.663026.3.579.2 .593 1987 Unknown [id number] 2.16.840.1.988605.3.579.2 .593 1987 Unknown [id number] 2.16.840.1.219337.3.579.2 .1285 1987 Unknown [id number] 2.16.840.1.366783.3.579.2 .1285 1987 Unknown [id number] 2.16840.1.457820.3.579.2 .1285 1987 Unknown [id number] 2.840.1.859982.3.579.2 .1258 1987 Unknown [id number] 2.16.840.1.285762.3.579.2 .1258 1987 Unknown [id number] 2.16840.1.095626.3.579.2 .1258 1987 Unknown [id number] 2.16840.1.856612.3.579.2 .1258 1987 Unknown [id number] 2.16840.1.529890.3.579.2 .1258 1987 Unknown [id number] 2.16.840.1.656319.3.579.2 .1258 1987 Unknown [id number] 2.16.840.1.914298.3.579.2 .1258 1987 Unknown [id number] 2.16.840.1.182339.3.579.2 .9 1987 Unknown [id number] 2.16.840.1.852651.3.579.2 .1258 1987 Unknown [id number] 2.16.840.1.110411.3.579.2 .1258 1987 Unknown [id number] 2.16.840.1.604622.3.579.2 .1258 1987 Unknown [id number] 2.16.840.1.994693.3.579.2 .1258 1987 Unknown [id number] 2.16.840.1.543740.3.579.2 .1258 1987 Unknown [id number] 2.16.840.1.603342.3.579.2 .1258 1987 Unknown [id number] 2.16.840.1.279597.3.579.2 .1258 1987 Unknown [id number] 2.16.840.1.113146.3.579.2 .1258 1987 Unknown [id number] 2.16.840.1.193736.3.579.2 .9 1959 Unknown [id number] Social History Date Type Detail Facility [facility] Work Phone: Start: 1985 Sex Assigned At Female [facility] Start: 02-26-2023 [facility] Start: 11-09-2023 History of Social function [facility] Start: 11-09-2023 Tobacco use panel [facility] Start: 01-01-2024 [facility] Start: 1985 Sex assigned at Not on file [facility] if ever smoked [facility] Work Phone: Start: 06-27-2024 Sex Female (finding) [facility] Medical Equipment Procedure Code Equipment Code Equipment Origin al Text Equipment Identifier Dates 1 strip by In Vi tro route Daily Use in the morning prior to breakfast, 1 hour after each meal for a total of 4times daily. [id number] Start: 06-02-2024 End: 07-02-2024 1 each by In Vit ro route Daily Use to check FSBS four times daily [id number] Start: 06-02-2024 End: 07-02-2024 Goals Date Patient Goal Desired Activity /State Personal health goal Clinical Notes 02-10-2024 to 08-01-2024 Kalie Loera, PETER - 08/01/2024 1:20 PM Abel Aguilarloreta, NAME PLATE STAMPER - 07/18/2024 2:30 PM JORDYN Love - 06/30/2024 11:50 AM MARIA FERNANDABelle Kay, NAME PLATE STAMPER - 06/02/2024 10:10 AM EST Note Date [...] 81 mg, Daily Blood Glucose Monitoring Suppl ([employer] Glucometer) w/Device kit 1 kit, Does not [...] nursing note reviewed. Exam conducted with a helpdesk manager present. Vitals: Estimated body mass index is [...] Scooby Vega DO documented in this encounter [facility] 07-18-2024 History of Present illness Narrative Reason [...] 81 mg, Daily Blood Glucose Monitoring Suppl ([employer] Glucometer) w/Device kit 1 kit, Does not [...] nursing note reviewed. Exam conducted with a helpdesk manager present. Vitals: Estimated body mass index is [...] to clinic in 2-3 weeks. Documented by aKlie Loera LPN on behalf of:Emely Hunter PA-C documented in this encounter [facility] 06-30-2024 History of Present illness Narrative Reason [...] 81 mg, Daily Blood Glucose Monitoring Suppl ([employer] Glucometer) w/Device kit 1 kit, Does not [...] Scooby Vega DO documented in this encounter [facility] 06-02-2024 History of Present illness Narrative Reason [...] nursing note reviewed. Exam conducted with a helpdesk manager present. Vitals: Estimated body mass index is [...] Scooby Vega DO documented in this encounter [facility] 05-02-2024 History of Present illness Narrative Reason [...] nursing note reviewed. Exam conducted with a helpdesk manager present. Vitals: Estimated body mass index is [...] obtained without difficulty and patient was given [facility] order to have obtained. Orders Placed This Encounter Procedures HPV DNA probe, amplified US OB ANATOMY SINGLE W US OB CERVICAL LENGTH CHLAMYDIA TRACHOMATIS (GENITO/STI) Neisseria gonorrhea DNA probe, direct Alpha fetoprotein, maternal POCT urinalysis dipstick manually resulted After speaking with Dr. Vega order given to patients spouse Murali to have Type & Screen obtained as patient is Rh negative as well and if Rhogam is not needed they would like to defer.--ss Follow Up: Patient is to return to our office in 4 weeks for routine OB appointment Documented by Estee Cobb LPN on behalf of: JORDYN Fonseca documented in this encounter [facility] 04-04-2024 History of Present illness Narrative Reason [...] nursing note reviewed. Exam conducted with a helpdesk manager present. Vitals: Estimated body mass index is [...] Aspirin. Discussed again in regards to seeing [facility] & referral will be completed. Patient to have NST/BPP starting at 32 weeks gestation. Patient will have Anatomy Scan done at [facility]. Patient is Rh Negative and will [...] Scooby Vega DO documented in this encounter [facility] 04-01-2024 History of Present illness Narrative Physical [...] and it pops a lot randomly. Precautions: [place] Subjective: Pt states overall, ROM has improved. [...] sign below. Date: documented in this encounter [facility] 03-23-2024 History of Present illness Narrative Physical [...] and it pops a lot randomly. Precautions: [place] Subjective: Pt states range of motion of [...] to be instructed in home exercise program. Field Marketing Coordinator Goals: To be met in 10 weeks [...] sign below. Date: documented in this encounter [facility] 03-18-2024 History of Present illness Narrative Physical [...] and it pops a lot randomly. Precautions: [place] Subjective: Pt states she feels like her [...] to be instructed in home exercise program. Field Marketing Coordinator Goals: To be met in 10 weeks [...] sign below. Date: documented in this encounter [facility] 03-11-2024 History of Present illness Narrative Physical [...] and it pops a lot randomly. Precautions: [place] Subjective: Pt states overall she believes hip [...] sign below. Date: documented in this encounter [facility] 03-07-2024 History of Present illness Narrative Reason [...] nursing note reviewed. Exam conducted with a helpdesk manager present. Vitals: Estimated body mass index is [...] or undercooked meat, and stay away from [facility]. Patient has been consulted regarding any further do's and don'ts of . Patient voiced understanding and all questions and concerns were answered. Follow Up: Patient is to return in 4 weeks for routine OB appointment. Documented by Kalie Loera LPN on behalf of: Scooby Vega DO documented in this encounter [facility] 03-03-2024 History of Present illness Narrative Physical [...] and it pops a lot randomly. Precautions: [place] Subjective: Pt states she has been doing [...] sign below. Date: documented in this encounter [facility] 02-26-2024 History of Present illness Narrative Physical [...] and it pops a lot randomly. Precautions: [place] Subjective: Pt states she was able to [...] to be instructed in home exercise program. Field Marketing Coordinator Goals: To be met in 10 weeks [...] sign below. Date: documented in this encounter [facility] 02-17-2024 History of Present illness Narrative Physical [...] and it pops a lot randomly. Precautions: [place] Subjective: Pt states she has not done [...] to be instructed in home exercise program. Field Marketing Coordinator Goals: To be met in 10 weeks [...] sign below. Date: documented in this encounter [facility] 02-12-2024 History of Present illness Narrative Reason [...] or undercooked meat, and stay away from [facility]. Patient has also been advised to [...] Estee Cobb LPN documented in this encounter [facility] 02-10-2024 History of Present illness Narrative Physical [...] and it pops a lot randomly. Precautions: [place] Subjective: left hip ant and lateral Pain: [...] sign below. Date: documented in this encounter [facility] Evaluation note No assessment inform ation available [facility] Work Phone: Evaluation note Diagnosis Onset Date Left hip pain acute [facility] Work Phone: Evaluation note* Diagnosis Pain of left hip- Primary Hip flexor tendinitis, left [facility] Diagnosis Pain of left hip- Primary Hip flexor tendinitis, left [facility]* Diagnosis Second trimester state, incidental Screening, [...] for anatomic survey documented in this encounter [facility] HealthcareEvaluation note* Diagnosis Pain of left hip- Primary Hip flexor tendinitis, left [facility] Diagnosis First trimester state, incidental Antepartum multigravida of advanced maternal age Nausea and vomiting in Unspecified vomiting of , unspecified as to episode of care documented in this encounter [facility] HealthcareEvaluation note* Diagnosis Second trimester state, [...] weeks gestation of documented in this encounter [facility] Healthcare Summary Purpose Family History No Family History [...] CREATED AUTHOR AUTHOR'S ORGANIZ ATION 07/03/2024 [facility] DATE CREATED AUTHOR AUTHOR'S ORGANIZ ATION 08/03/2024 [facility] EPIC Care Teams (unrecognized [...] December 01, 2023 End: December 01, 2023 Passenger Car Upholsterer Apprentice Relationship Specialty Start Date End Date Jen Granados MD [address] [place] [id number] PCP - General Family Medicine 03/10/23 Passenger Car Upholsterer Apprentice Relationship Specialty Start Date End Date Jen Granados MD [address] [place] [facility] [address] PCP - General Family Medicine 03/10/23 Passenger Car Upholsterer Apprentice Relationship Specialty Start Date End Date Jen Granados MD [address] [place] [facility] [address] PCP - General Family Medicine 03/10/23 Passenger Car Upholsterer Apprentice Relationship Specialty Start Date End Date Jen Granados MD [address] [place] [facility] [address] PCP - General Family Medicine 03/10/23 Passenger Car Upholsterer Apprentice Relationship Specialty Start Date End Date Jen Grandaos MD [address] [place] [facility] [place] [address] PCP - General Family Medicine 03/10/23 Passenger Car Upholsterer Apprentice Relationship Specialty Start Date End Date Jen Granados MD [address] [place] [facility] [address] PCP - General Family Medicine 03/10/23 Passenger Car Upholsterer Apprentice Relationship Specialty Start Date End Date Jen Granados MD [address] [place] [place] [address] PCP - General Family Medicine 03/10/23 Passenger Car Upholsterer Apprentice Relationship Specialty Start Date End Date Jen Granados MD [address] [place] [facility] [place] [address] PCP - General Family Medicine 03/10/23 Passenger Car Upholsterer Apprentice Relationship Specialty Start Date End Date Jen Granados MD [address] [facility] [place] [address] PCP - General Family Medicine 03/10/23 Passenger Car Upholsterer Apprentice Relationship Specialty Start Date End Date Jen Granados MD [address] [facility] [place] [phone] PCP - General Family Medicine 03/10/23 Passenger Car Upholsterer Apprentice Relationship Specialty Start Date End Date Jen Granados MD [address] [facility] [place] [phone] PCP - General Family Medicine 03/10/23 Passenger Car Upholsterer Apprentice Relationship Specialty Start Date End Date Jen Granados MD [address] [facility] [place] [address] PCP - General Family Medicine 03/10/23 Passenger Car Upholsterer Apprentice Relationship Specialty Start Date End Date Jen Granados MD [address] [facility] [place] [phone] PCP - General Family Medicine 03/10/23 Passenger Car Upholsterer Apprentice Relationship Specialty Start Date End Date Jen Granados MD [address] [facility] [place] [phone] PCP - General Family Medicine 03/10/23 Passenger Car Upholsterer Apprentice Relationship Specialty Start Date End Date Jen Granados MD [address] [facility] [place] [phone] PCP - General Family Medicine 03/10/23 Team [...] Care Provider Active Start: June 25, 2024 aJe Cervantes , Attending Provider Active S tart: June 25, 2024 Team Status: Inactive Member Role Status Dates Jen Granados MD Primary Care Provider Active Start: June 25, 2024 End: June 25, 2024 Jae Cervantes , Attending Provider Active S tart: June 25, 2024 End: June 25, 2024 Passenger Car Upholsterer Apprentice Relationship Specialty Start Date End Date Jen Granados MD [address] [place] [facility] [place] [phone] PCP - General Family Medicine 03/10/23 Passenger Car Upholsterer Apprentice Relationship Specialty Start Date End Date Jen Granados MD [address] [place] [facility] [place] [phone] PCP - General Family Medicine 03/10/23 Passenger Car Upholsterer Apprentice Relationship Specialty Start Date End Date Jen Granados MD [address] [place] [facility] [phone] PCP - General Family Medicine 03/10/23 Passenger Car Upholsterer Apprentice Relationship Specialty Start Date End Date Jen Granados MD [address] [place] [facility] [phone] PCP - General Family Medicine 03/10/23 Passenger Car Upholsterer Apprentice Relationship Specialty Start Date End Date Jen Granados MD [address] [place] [facility] [phone] PCP - General Family Medicine 03/10/23 Goals (unrecognized section and content) Goals may be documented in a n alternate sectionGoals may be documented in an alternate sectionGoals may be documented in an alternate section Reason for Visit (unrecogniz ed section and content) Specialty Diagnoses / Procedures Referred By Rosi t Referred To Contact Physical Therapy Diagnoses Pain in left hip Other specified enthesopathies of left lower limb, excluding foot Procedures PA PHYSICAL THERAPY EVALUATION LOW COMPLEX 20 MINS Ashley Rock MD [address] [place] [address] Gretchen Moreno PT Referral ID Status Reason Start Date Expiration Date V isits Requested Visits Authorized [id number] Authorized 02/10/2024 08/08/2024 99 99 Reason Comments Routine Visit Reason Comments Routine Visit [facility] Women Visit STI Screening Reason Comments Amenorrhea FOR RECORDS PERTAINING TO [...] BE BASED ON THE PRIMARY CLINICAL RECORDS. [employer] provides no warranty or guarantee of the accuracy or completeness of information in this document.
--- NOTE | 2024-08-12 19:09 | US_ITS ---
[place] [id number] Patient Name: RAPHAEL GAMA MRN: [id number] date: 1985 Sex: F Assigned Patient Location: [facility] Current Patient Location: Accession/Order Number: [id number] Exam Date: 08/12/2024 22:10 Report Date: 08/12/2024 22:12 At the request of: BEVERLY SAHA DO Procedure: US OB BPP w non-stress Biophysical profile. Reason for exam: GBM. COMPARISON: Biophysical profile 08/06/2024. TECHNIQUE: Transabdominal imaging of the gravid uterus was obtained. FINDINGS: Machine Operator reports the BPP is 8 out of 8. SIDDHARTHA is normal 11.2 cm. heart rate 142 bpm. US/US OB BPP w non-stress IMPRESSION: BPP 8 out of 8. Impression dictated by: Lucas Martin Jr., D.O.08/12/2024 10:12 PM Dictation Location: [facility]ITAL[facility] Electronically authenticated by: [id number] Y Date: 08/12/2024 22:12
[2024-08-12 20:08] VITALS: BP 119/72; PULSE 88
== END 2024-08-12 20:10 | disposition home or self-care (01) ==
LOC: US 00:14 → FBC 19:06
PROVIDERS: PCP Family Medicine; Visit Provider Obstetrics & Gynecology
DX: O24.419 Gestational diabetes mellitus in pregnancy, unspecified control (principal); Z3A.34 34 weeks gestation of pregnancy
CPT/HCPCS: 76818

== ENCOUNTER 2024-08-16 01:09 | Outpatient (OUT) | payer OTHER, SELFPAY ==
--- OUTSIDE RECORDS SUMMARY | 2024-08-16 01:13 | XMS_ITS | CCD ---
Author Organization [facility] Care Team Providers Care Seismograph Observer Name Role Phone DOREEN, DR HOFFMAN Attending Unavailable DARWIN, DR JEN Ramirez Primary Care Unavailable DOREEN, DR HOFFMAN Admitting Unavailable DOREEN, DR HOFFMAN Consulting Unavailable GARY, DR PAUL Admitting Unavailable GARY, DR PAUL Consulting Unavailable GARY, DR PAUL Attending Unavailable DARWIN, DR JEN Ramirez Primary Care Unavailable Scooby Vega Attending Provider Jen Granados MD Primary Care Provider ASHLEY ROCK Attending Unavailable JEN GRANADOS Referring Unavailable JNE GRANADSO Primary Care Unavailable ASHLEY ROCK Attending Unavailable [...] GRETCHEN Attending Unavailable ROCK, ASHLEY Referring Unavailable GARYSCOOBY Attending Unavailable MASON GRETCHEN Attending Unavailable ROCK, [...] Translations: [AMOXICILLIN] Drug Allergy 3 GI intolerance [facility] (3 sources) 12 Hour Decongestant Allergy to substance 3 Hives [facility] Medications Current Medications Medication Drug Class(es) Dates Sig (Normalized) Sig (Original) aspirin 81 mg oral tablet (20 sources) Platelet Aggregation Inhibitor, Nonsteroidal Anti-inflammatory Drug take 81 mg by mouth once daily BABY ASPIRIN PO Take 81 mg by mouth Daily Active Blood Glucose Monitoring Suppl (D-Care Glucometer) w/Device kit (14 sources) Start: 06-02-2024 End: 06-02-2025 Blood Glucose [...] (Other) isopropyl alcohol 0.7 ml/ml medicated pad (14 sources) Start: 06-02-2024 Alcohol Swabs (Alcohol Prep [...] 12-01-2023 Episodic Other and delivery including normal (20 sources) Second trimester ; Translations: [Encounter for [...] of ] 07-18-2024 Episodic Residual codes; unclassified (6 sources) Gestation period, 32 weeks; Translations: [32 weeks gestation of ] Onset: 08-01-2024 08-01-2024 Episodic Unclassified (1 source) New Patient Onset: 02-08-2024 Unclassified (20 sources) OB Reminders Onset: 05-02-2024 05-02-2024 Past [...] Facility US OB BPP W NON-STRESS on 08-12-2024 [place] [address] Ultrasound Report Signed Patient: RAPHAEL ELIZABETH MR#: [id number] : 1985 Acct:[id number] Age/Sex: 38 / F ADM Date: 08/12/24 Loc: US Attending Dr: Scooby Vega D.O. Ordering Physician: Scooby Vega D.O. Date of Service: 08/12/24 Procedure(s): US OB BPP w non-stress Accession Number(s): [id number] cc: Jen Granados M.D.; Scooby Vega D.O. [place] [id number] Patient Name: RAPHAEL ELIZABETH MRN: [facility]:[id number] date: 1985 Sex: F Assigned Patient Location: [facility] Current Patient Location: Accession/Order Number: [id number] Exam Date: 08/12/2024 22:10 Report Date: 08/12/2024 22:12 At the request of: SCOOBY VEGA DO Procedure: US OB BPP w non-stress Biophysical profile. Reason for exam: GBM. COMPARISON: Biophysical profile 08/06/2024. TECHNIQUE: Transabdominal imaging of the gravid uterus was obtained. FINDINGS: Heat Treating Furnace Tender reports the BPP is 8 out of 8. SIDDHARTHA is normal 11.2 cm. heart rate 142 bpm. US/US OB BPP w non-stress IMPRESSION: BPP 8 out of 8. Impression dictated by: Lucas Martin Jr., D.O.08/12/2024 10:12 PM Dictation Location: [facility]18 Electronically authenticated by: [id number] Y Date: 08/12/2024 22:12 Dictated By: Lucas Martin M.D. Signed By: 08/12/242213 DD/ 11 TD/TT: Mortgage Loan Counselor: [facility] Keyana Casey MD - 08/12/2024 [place] [address] Ultrasound Report Signed Patient: RAPHAEL ELIZABETH MR#: [id number] : 1985 Acct:[id number] Age/Sex: 38 / F ADM Date: 08/12/24 Loc: US Attending Dr: Scooby Vega D.O. Ordering Physician: Scooby Vega D.O. Date of Service: 08/12/24 Procedure(s): US OB BPP w non-stress Accession Number(s): [id number] cc: Jen Granados M.D.; Scooby Vega D.O. [place] [address] Patient Name: RAPHAEL ELIZABETH MRN: [facility]:[id number] date: 1985 Sex: F Assigned Patient Location: [facility] Current Patient Location: Accession/Order Number: [id number] Exam Date: 08/12/2024 22:10 Report Date: 08/12/2024 22:12 At the request of: SCOOBY VEGA DO Procedure: US OB BPP w non-stress Biophysical profile. Reason for exam: GBM. COMPARISON: Biophysical profile 08/06/2024. TECHNIQUE: Transabdominal imaging of the gravid uterus was obtained. FINDINGS: Heat Treating Furnace Tender reports the BPP is 8 out of 8. SIDDHARTHA is normal 11.2 cm. heart rate 142 bpm. US/US OB BPP w non-stress IMPRESSION: BPP 8 out of 8. Impression dictated by: Pastor Baum Jr.OKiran08/12/2024 10:12 PM Dictation Location: [facility] Electronically authenticated by: [id number] Y Date: 08/12/2024 22:12 Dictated By: Lucas Martin M.D. Signed By: 08/12/242213 DD/ 11 TD/TT: Mortgage Loan Counselor: [facility] Radiology Study observation (narrative) [facility] US OB BPP W NON-STRESS Ordered By: Radiologist Radiology on 08-12-2024 [facility] Work Phone: US OB BPP W NON-STRESS on 08-06-2024 [place] [address] Ultrasound Report Signed Patient: RAPHAEL ELIZABETH MR#: [id number] : 1985 Acct:[id number] Age/Sex: 38 / F ADM Date: 08/05/24 Loc: US Attending Dr: Scooby Vega D.O. Ordering Physician: Scooby Vega D.O. Date of Service: 08/05/24 Procedure(s): US OB BPP w non-stress Accession Number(s): [id number] cc: Jen Granados M.D.; Scooby Vega D.O. [place] [address] Patient Name: RAPHAEL ELIZABETH MRN: [facility]:[id number] date: 1985 Sex: F Assigned Patient Location: [facility] Current Patient Location: Accession/Order Number: [id number] Exam Date: 08/05/2024 19:09 Report Date: 08/06/2024 [...] Kimball M.D. Signed By: 08/06/24 0753 DD/ 0 TD/TT: Mortgage Loan Counselor: [facility] Radiology, Radiologdora guillen MD - 08/06/2024 [place] [address] Ultrasound Report Signed Patient: RAPHAEL ELIZABETH MR#: [id number] : 1985 Acct:[id number] Age/Sex: 38 / F ADM Date: 08/05/24 Loc: US Attending Dr: Scooby Vega D.O. Ordering Physician: Scooby Vega D.O. Date of Service: 08/05/24 Procedure(s): US OB BPP w non-stress Accession Number(s): [id number] cc: Jen Granados M.D.; Scooby Vega D.O. The [address] [address] Patient Name: RAPHAEL ELIZABETH MRN: [facility]:[id number] date: 1985 Sex: F Assigned Patient Location: [facility] Current Patient Location: Accession/Order Number: [id number] Exam Date: 08/05/2024 19:09 Report Date: 08/06/2024 [...] Kimball M.D. Signed By: 08/06/24 0753 DD/ 0 TD/TT: Mortgage Loan Counselor: [facility] Radiology Study observation (narrative) [facility] US OB BPP W NON-STRESS Ordered By: Radiologist Radiology on 08-06-2024 [facility] Work Phone: US OB BPP W NON-STRESS on 08-01-2024 [place] [address] Ultrasound Report Signed Patient: RAPHAEL ELIZABETH MR#: [id number] : 1985 Acct:[id number] Age/Sex: 38 / F ADM Date: 07/29/24 Loc: US Attending Dr: Scooby Vega D.O. Ordering Physician: Scooby Vega D.O. Date of Service: 07/29/24 Procedure(s): US OB BPP w non-stress Accession Number(s): [id number] cc: Jen Granados M.D.; Scooby Vega D.O. [place] [address] Patient Name: RAPHAEL ELIZABETH MRN: [id number]:[id number] date: 1985 Sex: F Assigned Patient Location: [facility] Current Patient Location: Accession/Order Number: [id number] Exam Date: 07/29/2024 19:04 Report Date: 08/01/2024 [...] M.D. Signed By: 08/01/24713 DD/ 0 TD/TT: Mortgage Loan Counselor: [facility] Radiology, Radiologdora guillen MD - 08/01/2024 [place] [address] Ultrasound Report Signed Patient: RAPHAEL ELIZABETH MR#: [id number] : 1985 Acct:[id number] Age/Sex: 38 / F ADM Date: 07/29/24 Loc: US Attending Dr: Scooby Vega D.O. Ordering Physician: Scooby Vega D.O. Date of Service: 07/29/24 Procedure(s): US OB BPP w non-stress Accession Number(s): [id number] cc: Jen Granados M.D.; Scooby Vega D.O. [place] [address] Patient Name: RAPHAEL ELIZABETH MRN: [facility]:[id number] date: 1985 Sex: F Assigned Patient Location: [facility] Current Patient Location: Accession/Order Number: [id number] Exam Date: 07/29/2024 19:04 Report Date: 08/01/2024 [...] M.D. Signed By: 08/01/24713 DD/ 0 TD/TT: Mortgage Loan Counselor: [facility] Radiology Study observation (narrative) [facility] US OB BPP W NON-STRESS Ordered By: Radiologist Radiology on 08-01-2024 [facility] Work Phone: Urinalysis macro (dipstick) panel (U)on 08-01-2024 Bilirubin, UA Negative Negative - 4(70) +++ mg/dL [facility] Blood, UA Negative Negative - 50 Ulises/mcL [facility] Clarity, UA Clear [facility] Color, UA Yellow [facility] Glucose, UA Negative Negative - 1999(110) ++++ mg/dL [facility] Interpretation and review of laboratory results Abnormal [facility] Ketones, UA Negative Negative - 160(16) ++++ mg/dL [facility] Leukocytes, UA Trace Negative - 500+++ Clair/mcL [facility] Nitrite, UA Negative Negative - Positive [facility] pH, UA 7.5 5 - 9 [facility] Protein, UA Negative Negative - 1999(20) ++++ mg/dL [facility] Spec Grav, UA 1.015 1 - 1.03 [facility] Urobilinogen, UA 0.2 0.2 - 12 mg/dL [facility] Urinalysis macro (dipstick) panel (U)on 07-18-2024 Bilirubin, UA Negative Negative - 4(70) +++ mg/dL [facility] Blood, UA Negative Negative - 50 Ulises/mcL [facility] Clarity, UA Clear [facility] Color, UA Yellow [facility] Glucose, UA Negative Negative - 1999(110) ++++ mg/dL [facility] Interpretation and review of laboratory results Normal [facility] Ketones, UA Negative Negative - 160(16) ++++ mg/dL [facility] Leukocytes, UA Negative Negative - 500+++ Clair/mcL [facility] Nitrite, UA Negative Negative - Positive [facility] pH, UA 7 5 - 9 [facility] Protein, UA Negative Negative - 1999(20) ++++ mg/dL [facility] Spec Grav, UA 1.025 1 - 1.03 [facility] Urobilinogen, UA 0.2 0.2 - 12 mg/dL [facility] ALL CBC WITH AUTO DIFFon BASOPHILS ABSOLUTE AUTO 0 [facility] Basophils/100 WBC (Bld) 0.2 % 0.2 - 2.0 % [facility] Eosinophils/100 WBC (Bld) 0.9 % 0.9 - 7.0 % [facility] Erythrocyte distribution width (RBC) [Ratio] 13 % 11.0 - 15.0 % [facility] Hematocrit (Bld) [Volume fraction] 32.2 % Low 36.0 - 48.0 % [facility] Hemoglobin (Bld) [Mass/Vol] 10.9 g/dL Low 12.0 - 16.0 g/dL [facility] IMMATURE GRANULOCYTES ABS AUTO 0.13 High [facility] Immature granulocytes/100 WBC (Bld) 1.4 % High 0.0 - 0.5 % [facility] Interpretation and review of laboratory results Abnormal [facility] LYMPHOCYTES ABSOLUTE AUTO 1.4 [facility] Lymphocytes/100 WBC (Bld) 15.4 % Low 20.5 - 60.0 % [facility] MCH (RBC) [Entitic mass] 32.7 pg 26.7 - 34.0 pg [facility] MCHC (RBC) [Mass/Vol] 33.9 g/dL 29.9 - 35.2 g/dL [facility] MCV (RBC) [Entitic vol] 96.7 fL 81.0 - 99.0 fL [facility] MONOCYTES ABSOLUTE AUTO 0.5 [facility] Monocytes/100 WBC (Bld) 4.8 % 1.7 - 12.0 % [facility] NEUTROPHILS ABSOLUTE AUTO 7.2 High [facility] Neutrophils/100 WBC (Bld) 77.3 % High 43.0 - 75.0 % [facility] Platelet mean volume (Bld) [Entitic vol] 9.2 fL Low 9.5 - 13.5 fL [facility]H EO # 0.1 [facility]H PLT 229 [facility] RBC 3.33 Low [facility] WBC 9.3 [facility] Urinalysis macro (dipstick) panel (U)on 06-30-2024 Bilirubin, UA Negative Negative - 4(70) +++ mg/dL [facility] Blood, UA Negative Negative - 50 Ulises/mcL [facility] Clarity, UA Clear [facility] Color, UA Yellow [facility] Glucose, UA Negative Negative - 1999(110) ++++ mg/dL [facility] Interpretation and review of laboratory results Abnormal [facility] Ketones, UA Negative Negative - 160(16) ++++ mg/dL [facility] Leukocytes, UA Trace Negative - 500+++ Clair/mcL [facility] Nitrite, UA Negative Negative - Positive [facility] pH, UA 8.5 5 - 9 [facility] Protein, UA Positive Negative - 1999(20) ++++ mg/dL [facility] Comment on above: trace Spec Grav, UA 1.015 1 - 1.03 [facility] Urobilinogen, UA 0.2 0.2 - 12 mg/dL [facility] Basophils/100 WBC Manual cnt (Bld)on 06-25-2024 Basophils/100 WBC (Bld) Basophils/100 leukocytes in Blood by Manual count Low 0.2-2.0 [facility] Eosinophils/100 WBC Manual c nt (Bld)on 06-25-2024 Eosinophils/100 WBC (Bld) Eosinophils/100 leukocytes in Blood by Manual count 0.9-7.0 [facility] Erythrocyte distribution wid th Auto (RBC) [Ratio]on 06-25-2024 Erythrocyte distribution width (RBC) [Ratio] Erythrocyte distribution width [Ratio] by Automated count 11.0-15.0 [facility] Estimated glomerular filtrat ion rate (GFR) non- Americanon 06-25-2024 GFR/1.73 sq M.predicted among non-blacks MDRD (S/P/Bld) [Vol rate/Area] Estimated glomerular filtration rate (GFR) non- >=60 mL/min/1.73 m 2 [facility] Hematocrit Auto (Bld) [Volum e fraction]on 06-25-2024 Hematocrit (Bld) [Volume fraction] Hematocrit [Volume Fraction] of Blood by Automated count Low 36.0-48.0 [facility] Hemoglobin [Mass/volume] in Bloodon 06-25-2024 Hemoglobin (Bld) [Mass/Vol] Hemoglobin [Mass/volume] in Blood Low 12.0-16.0 [facility] Laboratory - Chemistry and C hemistry - challengeon 06-25-2024 Calcium [Mass/Vol] 8.2 mg/dL Low 8.5-10.1 [facility] Chloride [Moles/Vol] 99 mmol/L 98-107 [facility] CO2 [Moles/Vol] 21.2 mmol/L 21.0-32.0 [facility] Creatinine [Mass/Vol] 0.89 mg/dL 0.55-1.02 [facility] GFR/1.73 sq M.predicted MDRD (S/P/Bld) [Vol rate/Area] mL/min/{1.73_m2} >=60 mL/min/1.73 m 2 [facility] Glucose [Mass/Vol] 98 mg/dL 74-106 [facility] Potassium [Moles/Vol] 3.7 mmol/L 3.5-5.1 [facility] Sodium [Moles/Vol] 130 mmol/L Low 136-145 [facility] Urea nitrogen [Mass/Vol] 7.0 mg/dL 7.0-18.0 [facility] Urea nitrogen/Creatinine [Mass ratio] 7.9 mg/mg [facility] Bilirubin Ql (U) Negative NEGATIVE [facility] Glucose (U) [Mass/Vol] Negative NEGATIVE [facility] Ketones Ql (U) 15 mg/dL Abnormal NEGATIVE [facility] pH (U) 7.5 [pH] 5.0-9.0 [facility] Specific gravity (U) [Rel density] 1.015 1.005-1.025 [facility] Urobilinogen Qn (U) 1.0 {Ree'U}/dL 0.2-1.0 [facility] Laboratory - Hematology and Cell countson 06-25-2024 Band form neutrophils/100 WBC (Bld) 2.0 % 0-5 [facility] Lymphocytes/100 WBC (Bld) 2.0 % Low 20.5-60.0 [facility] Monocytes/100 WBC (Bld) 5.0 % 1.7-12.0 [facility] Laboratory - Microbiology an d Antimicrobial susceptibilityon 06-25-2024 SARS-CoV-2 (COVID-19) RNA JUAN ANTONIO+probe Ql (Unsp spec) Negative NEGATIVE [facility] Comment on above: This test has [...] ationon 06-25-2024 Appearance (U) CLOUDY Abnormal CLEAR [facility] Color (U) DK YELLOW YELLOW [facility] Laboratory - Urinalysison Leukocyte esterase Test strip Ql (U) Negative NEGATIVE [facility] Nitrite Ql (U) Negative NEGATIVE [facility] Protein Ql (U) TRACE mg/dL NEG/TRACE [facility] Leukocytes [#/volume] correc leroy for nucleated erythrocytes in Blood by Automated counon 06-25-2024 WBC corrected for nucl RBC Auto (Bld) [#/Vol] Leukocytes [#/volume] corrected for nucleated erythrocytes in Blood by Automated coun 4.0-11.0 [facility] MCH Auto (RBC) [Entitic mass ]on 06-25-2024 MCH (RBC) [Entitic mass] MCH [Entitic mass] by Automated count 26.7-34.0 [facility] MCHC Auto (RBC) [Mass/Vol]on 06-25-2024 MCHC (RBC) [Mass/Vol] MCHC [Mass/volume] by Automated count 29.9-35.2 [facility] MCV Auto (RBC) [Entitic vol] on 06-25-2024 MCV (RBC) [Entitic vol] MCV [Entitic volume] by Automated count 81.0-99.0 [facility] No Panel Informationon 06-25 Absolute Basophils (Manual) 0.00 10 3/uL 0.00-0.10 [facility] Band Neutrophils # (Manual) 0.2 10 3/uL 0.0-0.3 [facility] Eosinophils # (Manual) 0.08 10 3/uL 0.00-0.70 [facility] Lymphocytes # (Manual) 0.16 10 3/uL Low 1.20-3.80 [facility] Monocytes # (Manual) 0.41 10 3/uL 0.30-0.80 [facility] Segmented Neutrophils # (Manual) 7.38 10 3/uL High 1.4-6.5 [facility] Urine Occult Blood Negative NEGATIVE [facility] Bedside Influenza Type A Antigen Positive Abnormal [facility] Comment on above: NOTE: Live attenuate d influenza vaccine viruses can cause apositive result for a rapid influenza diagnostic test ifadministered up to 7 days prior to rapid testing. Bedside Influenza Type B Antigen Negative [facility] Comment on above: Negative for Flu B p rotein antigen. Infection due to Flu Bcannot be ruled out. Flu B antigen in the sample may bebelow the detection limit of the test. Platelet mean volume Auto (B ld) [Entitic vol]on 06-25-2024 Platelet mean volume (Bld) [Entitic vol] Platelet mean volume [Entitic volume] in Blood by Automated count Low 9.5-13.5 [facility] Platelets Auto (Bld) [#/Vol] on 06-25-2024 Platelets (Bld) [#/Vol] Platelets [#/volume] in Blood by Automated count 150-450 [facility] RBC Auto (Bld) [#/Vol]on RBC (Bld) [#/Vol] Erythrocytes [#/volu me] in Blood by Automated count Low 4.20-5.40 [facility] Segmented neutrophils/100 WB C Manual cnt (Bld)on 06-25-2024 Segmented neutrophils/100 WBC (Bld) Manual blood segmented neutrophils/100 leukocytes High 43.0-75.0 [facility] Serum or plasma anion gap de terminationon 06-25-2024 Anion gap [Moles/Vol] Serum or plasma anion gap determination [facility] Urine Cultureon 06-25-2024 Bacteria identified Cx Nom (U) No Growth 2 Days PERFORMED BY: [place] [id number] PATHOLOGIST R DEVELOPER DANTE PALACIOS M.D. Normal [facility] Comment on above: Performed By: #### C UU #### [facility] [address] [place] [id number] [facility] IGP,APTIMA HPV,AGE GDLNon AGE GDLN ACOG TESTING Note . [facility] Comment on above: TESTS RESULT FLAG UN ITS REF RANGE LAB Clinician Provided Cytology Information Source.............Cervix No. of containers..01 ThinPrep Vial Age Algo ACOG Annel... 30-65 01 FLAG LEGEND: L-Low Normal,H-High Normal,LL-Alert Low,HH-Alert High <-Panic Low,>-Panic High,A-Abnormal,AA-Critical Abnormal Performed at: 01 =G [address] [address] Kathryn Maldonado MD, HPV APTIMA Negative Negative [facility] Comment on above: This nucleic acid am plification test detects fourteen high- risk HPV types (16,18,31,33,35,39,45,51,52,56,58,59,66,68) without differentiation. Performed at: = - [address] [id number] Assistant Golf Coach: Kathryn Maldonado MD, Phone: [phone] [facility]formed at: [facility] [id number] Assistant Golf Coach: Kathryn Maldonado MD, Phone: [phone] IGP, APTIMA HPV, RFX 16/18,45 Note . [facility] Comment on above: TESTS RESULT FLAG UN ITS REF RANGE LAB DIAGNOSIS: 02 NEGATIVE FOR INTRAEPITHELIAL LESION OR MALIGNANCY. Specimen adequacy: 02 Satisfactory for evaluation. Endocervical and/or squamous metaplastic cells (endocervical component) are present. Performed by: 02 Thao Shankar, Director [facility] . 02 Note: Note 02 The Pap [...] <-Panic Low,>-Panic High,A-Abnormal,AA-Critical Abnormal Performed at: [address] [address] Kathryn Maldonado MD, BRUSH-SPATULA CERVIX [facility] RECURRENT VAGINITIS (HTRX)on 05-05-2024 ATOPOBIUM VAGINAE 0 [facility] ATOPOBIUM VAGINAE Not detected [facility] BVAB 2,3 (BACTERIAL VAGINOSIS ASSOCIATED BACTERIA 2, 3); MOBILUNCUS SPP 0 [facility] BVAB 2,3 (BACTERIAL VAGINOSIS ASSOCIATED BACTERIA 2, 3); MOBILUNCUS SPP Not detected [facility] JED ALBICANS, PARAPSILOSIS, TROPICALIS 0 [facility] JED ALBICANS, PARAPSILOSIS, TROPICALIS Not detected [facility] JED GLABRATA 0 [facility] JED GLABRATA Not detected [facility] JED KRUSEI 0 [facility] JED KRUSEI Not detected [facility] CHLAMYDIA TRACHOMATIS 0 [facility] CHLAMYDIA TRACHOMATIS Not detected [facility] GARDNERELLA VAGINALIS 0 [facility] GARDNERELLA VAGINALIS Not detected [facility] MEGASPHAERA (TYPES 1, 2) 0 [facility] MEGASPHAERA (TYPES 1, 2) Not detected [facility] MYCOPLASMA GENITALIUM 0 [facility] MYCOPLASMA GENITALIUM Not detected [facility] NEISSERIA GONORRHOEAE 0 [facility] NEISSERIA GONORRHOEAE Not detected [facility] TRICHOMONAS VAGINALIS 0 [facility] TRICHOMONAS VAGINALIS Not detected [facility] Urinalysis macro (dipstick) panel (U)on 05-03-2024 Bilirubin, UA Negative Negative - 4(70) +++ mg/dL [facility] Blood, UA Negative Negative - 50 Ulises/mcL [facility] Clarity, UA Clear [facility] Color, UA Yellow [facility] Glucose, UA Negative Negative - 1999(110) ++++ mg/dL [facility] Interpretation and review of laboratory results Normal [facility] Ketones, UA Negative Negative - 160(16) ++++ mg/dL [facility] Leukocytes, UA Negative Negative - 500+++ Clair/mcL [facility] Nitrite, UA Negative Negative - Positive [facility] pH, UA 0.5 5 - 9 [facility] Protein, UA Negative Negative - 1999(20) ++++ mg/dL [facility] Spec Grav, UA 1.025 1 - 1.03 [facility] Urobilinogen, UA 1.0 0.2 - 12 mg/dL [facility] Human papilloma virus 16+18+ 31+33+35+39+45+51+52+56+58+59+66+68 DNA [Presence] in Denis 05-02-2024 HPV 16+18+31+33+35+39+4 5+51+52+56+58+59+66 +68 DNA Probe+sig amp Ql (Cvx) Human papilloma virus 16+18+31+33+35+39+45+51+52+5 6+58+59+66+68 DNA [Presence] in Cer Negative [facility] Comment on above: This nucleic acid am plification test detects fourteen high- risk HPV types (16,18,31,33,35,39,45,51,52,56,58,59,66,68)without differentiation.Performed at: = - [facility] [id number] Director: Kathryn Maldonado MD, Phone: [phone] at: [facility] [id number] Director: Kathryn Maldonado MD, Phone: [phone] No Panel Informationon 05-02 HPV High Risk Other Comment Note . [facility] Comment on above: TESTS RESULT FLAG UN ITS REF RANGE LAB JESE GNOSIS: 02 NEGATIVE FOR INTRAEPITHELIAL LESION OR MALIGNANCY.Specimen adequacy: 02 Satisfactory for evaluation. Endocervical and/or squamous metaplastic cells (endocervical component) are present.Performed by: 02 Thao Shankar, Director [facility]. 02Note: Note 02 The Pap smear is [...] High <-Panic Low,>-Panic High,A-Abnormal,AA-Critical Abnormal --Performed at:[address] [address] Kathryn Maldonado MD, Reference Lab Test Patient Age Note . [facility] Comment on above: TESTS RESULT FLAG UN ITS REF RANGE LAB Clinician Provided Cytology Information Source.............Cervix No. of containers..01 ThinPrep VialAge Richie SANDERS Annel... 30-65 FLAG LEGEND: L-Low Normal,H-High Normal,LL-Alert Low,HH-Alert High <-Panic Low,>-Panic High,A-Abnormal,AA-Critical Abnormal --Performed at:01 =G [facility] [address] [place] [address] Kathryn Maldonado MD, AFP, SERUM, OPEN SPINA BIFID Aon 05-01-2024 AFP MOM 1.18 . [facility] AFP VALUE 61.8 ng/mL . [facility] COMMENT: Comment . [facility] Comment on above: Cydney Rodriguez , Ph.D., [facility] Director References: Available Upon Request. Multiples Of Median Cutoffs For AFP Elevations Chiang 2.5 Black 2.8 IDD 2.0 Twins 4.5 Abbreviation Definitions IDD - Insulin Dep Diabetes OSBR - Open Spina Bifida Risk For further inquiries contact [facility] at [phone]. This test was developed and its performance characteristics determined by [employer]. It has not been cleared or approved by the Food and Drug Administration. Performed at: [facility] [address], [place] [id number] Assistant Golf Coach: Marissa Kovacs [facility], Phone: [phone] GEST. AGE ON COLLECTION DATE 19.0 . weeks [facility] GESTAT. AGE BASED ON LMP . [facility] Comment on above: Recalculations are n ot recommended when gestational dating by LMP and ultrasound are within 10 days. INSULIN DEP DIABETES No . [facility] INTERPRETATION Comment . [facility] Comment on above: Interpretation: Scre en Negative [...] Customer Services to discuss available options. The [employer] recommends amniocentesis be offered to women age 35 and older. [age] . [age] [facility] MULTIPLE GESTATION No . [facility] OSBR RISK 1 IN 6916 . [facility] RACE . [facility] RESULTS Report . [facility] TEST RESULTS: Negative . [facility] WEIGHT 135 . lbs [facility] N N LMP [id number] 3 15 N 1 Y 135 N N N N N White/ [facility] Alpha-fetoprotein (AFP) paige urement (ufknafgo-wr-gyhgyk)on 04-29-2024 AFP [MoM] Alpha-fetoprotein (A FP) measurement (zymddcby-zz-ghnzsd) . [facility] Assess gestational ageon Gestational age Assess gestational age . [facility] Estimation of maternal age-s pecific risk of Down syndrome birthon 04-29-2024 Age [Time] Estimation of matern al age-specific risk of Down syndrome . [facility] Insulin dependent diabetes m ellitus detectionon 04-29-2024 Insulin dependent diabetes mellitus Ql Insulin dependent diabetes mellitus detection . [facility] Interpretation of serum or p lasma second trimester quad maternal screen (narrative reon 04-29-2024 Second trimester quad maternal screen Darshan [Interp] Interpretation of serum or plasma second trimester quad maternal screen (narrative re . [facility] Comment on above: Interpretation: Scre en [...] 04-29 AFP Triple Screen Comment Comment . [facility] Comment on above: Cydney Rodriguez , Ph.D., DABCCDirectorReferences: Available Upon Request.Multiples Of Median Cutoffs For AFP ElevationsSingleton 2.5 Black 2.8IDD 2.0 Twins 4.5 Abbreviation DefinitionsIDD - Insulin Dep DiabetesOSBR - Open Spina Bifida RiskFor further inquiries contact [facility] at [phone].This test was developed and its performance characteristicsdetermined by [employer]. It has not been cleared or approvedby the Food and Drug Administration.Performed at: [facility] [id number], [place] [id number] Director: Marissa Kovacs [facility], Phone: [phone] Alpha Fetoprotein Results Received Report . [facility] Gestational Age Calculation Method LMP . [facility] Comment on above: Recalculations are n ot recommended when gestational datingby LMP and ultrasound are within 10 days. Maternal Quad Test Risk 6916 . [facility] Maternal Race . [facility] Multiple No . [facility] Serum or plasma dusor-6-gzuf protein measurement (mass/volume)on 04-29-2024 AFP [Mass/Vol] Serum or plasma djill-8-bkogwolgsau measurement (mass/volume) . [facility] BOX TEST SENT OUTon BOX TEST SENT OUT Y [facility] UNITY BOX [facility] ALL CBC WITH AUTO DIFFon BASOPHILS ABSOLUTE AUTO 0.0 [facility] Basophils/100 WBC (Bld) 0.5 % 0.2 - 2.0 % [facility] Eosinophils/100 WBC (Bld) 0.9 % 0.9 - 7.0 % [facility] Erythrocyte distribution width (RBC) [Ratio] 11.9 % 11.0 - 15.0 % [facility] Hematocrit (Bld) [Volume fraction] 37.3 % 36.0 - 48.0 % [facility] Hemoglobin (Bld) [Mass/Vol] 12.7 g/dL 12.0 - 16.0 g/dL [facility] IMMATURE GRANULOCYTES ABS AUTO 0.02 [facility] Immature granulocytes/100 WBC (Bld) 0.3 % 0.0 - 0.5 % [facility] Interpretation and review of laboratory results Abnormal [facility] LYMPHOCYTES ABSOLUTE AUTO 1.8 [facility] Lymphocytes/100 WBC (Bld) 27.4 % 20.5 - 60.0 % [facility] MCH (RBC) [Entitic mass] 32.2 pg 26.7 - 34.0 pg [facility] MCHC (RBC) [Mass/Vol] 34.0 g/dL 29.9 - 35.2 g/dL [facility] MCV (RBC) [Entitic vol] 94.4 fL 81.0 - 99.0 fL [facility] MONOCYTES ABSOLUTE AUTO 0.3 [facility] Monocytes/100 WBC (Bld) 5.1 % 1.7 - 12.0 % [facility] NEUTROPHILS ABSOLUTE AUTO 4.4 [facility] Neutrophils/100 WBC (Bld) 65.8 % 43.0 - 75.0 % [facility] Platelet mean volume (Bld) [Entitic vol] 9.4 fL Low 9.5 [facility] [facility] PLT 215 [facility] RBC 3.95 Low [facility] WBC 6.6 [facility] HCG ( test) Ql (U)o n 02-12-2024 Interpretation and review of laboratory results Abnormal [facility] Preg Test, Ur Positive [facility] Urinalysis macro (dipstick) panel (U)on 02-12-2024 Bilirubin, UA Negative Negative - 4(70) +++ mg/dL [facility] Blood, UA Negative Negative - 50 Ulises/mcL [facility] Clarity, UA Clear [facility] Color, UA Yellow [facility] Glucose, UA Negative Negative - 1999(110) ++++ mg/dL [facility] Interpretation and review of laboratory results Normal [facility] Ketones, UA Negative Negative - 160(16) ++++ mg/dL [facility] Leukocytes, UA Negative Negative - 500+++ Clair/mcL [facility] Nitrite, UA Negative Negative - Positive [facility] pH, UA 6.5 5 - 9 [facility] Protein, UA Negative Negative - 1999(20) ++++ mg/dL [facility] Spec Grav, UA 1.015 1 - 1.03 [facility] Urobilinogen, UA 1.0 0.2 - 12 mg/dL [facility] No Panel Informationon 11-29 Human Chorionic Gonadotropin, Quant 2 mIU/mL [facility] Comment on above: 5-50 0.2-1 NRKO05-09 0 1-2 ZZLFY576-0,000 2-3 GGBSB801-17,000 3-4 WEEKS1,000-50,000 4-5 WEEKS10,000-100,000 5-6 WEEKS15,000-200,000 6-8 WEEKS10,000-100,000 2-3 MONTHS No Panel Informationon 11-22 Human Chorionic Gonadotropin, Quant 3 mIU/mL [facility] Comment on above: 5-50 0.2-1 NMXG35-70 0 1-2 XIFCG394-7,000 2-3 HOTLM010-61,000 3-4 WEEKS1,000-50,000 4-5 WEEKS10,000-100,000 5-6 WEEKS15,000-200,000 6-8 WEEKS10,000-100,000 2-3 MONTHS No Panel Informationon 11-16 Human Chorionic Gonadotropin, Quant 6 mIU/mL [facility] Comment on above: 5-50 0.2-1 MFQE55-46 0 1-2 CAITK079-4,000 2-3 RCWVV086-26,000 3-4 WEEKS1,000-50,000 4-5 WEEKS10,000-100,000 5-6 WEEKS15,000-200,000 6-8 WEEKS10,000-100,000 2-3 MONTHS No Panel Informationon 11-08 Human Chorionic Gonadotropin, Quant 27 mIU/mL [facility] Comment on above: 5-50 0.2-1 ESLC52-26 0 1-2 DJZBT806-5,000 2-3 SVKXW106-78,000 3-4 WEEKS1,000-50,000 4-5 WEEKS10,000-100,000 5-6 WEEKS15,000-200,000 6-8 WEEKS10,000-100,000 2-3 MONTHS Basophils Auto (Bld) [#/Vol] on 10-23-2023 Basophils (Bld) [#/Vol] 0.0 10 3/uL 0.0-0.1 [facility] Basophils/100 WBC Auto (Bld) on 10-23-2023 Basophils/100 WBC (Bld) 0.8 % 0.2-2.0 [facility] Eosinophils/100 WBC Auto (Bl d)on 10-23-2023 Eosinophils/100 WBC (Bld) 1.4 % 0.9-7.0 [facility] Erythrocyte distribution wid th Auto (RBC) [Ratio]on 10-23-2023 Erythrocyte distribution width (RBC) [Ratio] 11.9 % 11.0-15.0 [facility] Hematocrit Auto (Bld) [Volum e fraction]on 10-23-2023 Hematocrit (Bld) [Volume fraction] 36.0 % 36.0-48.0 [facility] Hemoglobin [Mass/volume] in Bloodon 10-23-2023 Hemoglobin (Bld) [Mass/Vol] 11.8 g/dL 12.0-16.0 [facility] Krzysztof 10-23-2023 L Specimen: [id number] R eceived: 10/26/23 Status: MAIA Newell Num: [id number] Spec Type: Surgical Subm Dr: Scooby Vega Tissues: A Products of Conception - Spontaneous or Missed (POC) Procedures: HE/3, Gross/Micro L4 Age/ Patient Sex Location Account Attending Physician Raphael Elizabeth 37/F LABELL [id number] Scooby Vega SPEC NUM: [id number] RECD: 10/26/23 STATUS: MAIA NEWELL NUM: [id number] JANIE: 10/23/[address]: Scooby Vega ENTERED: [...] cm possible area of villous tissue identified. Associate Professor Of Music sections to include the possible villous tissue are submitted in A1?A3. Clinical history: Missed CPT Codes 01535 -------- -------- Specimen: [id number] Received: 10/26/23 Status: MAIA Newell Num: [id number] Spec Type: Surgical Subm Dr: Scooby Vega Tissues: A Products of Conception - Spontaneous or Missed (POC) Procedures: HE/3, Gross/Micro L4 -------- Patient: Raphael Elizabeth [id number] (Continued) -------- Signed (signature on file) Dante Palacios MD 10/27/23 1511 Normal [facility] - Hematology and Cell countson 10-23-2023 Immature granulocytes/100 WBC (Bld) 0.2 % 0.0-0.5 [facility] Leukocytes [#/volume] correc leroy for nucleated erythrocytes in Blood by Automated counon 10-23-2023 WBC corrected for nucl RBC Auto (Bld) [#/Vol] 5.1 10 3/uL 4.0-11.0 [facility] Lymphocytes Auto (Bld) [#/Vo l]on 10-23-2023 Lymphocytes (Bld) [#/Vol] 1.7 10 3/uL 1.2-3.8 [facility] Lymphocytes/100 WBC Auto (Bl d)on 10-23-2023 Lymphocytes/100 WBC (Bld) 32.8 % 20.5-60.0 [facility] MCH Auto (RBC) [Entitic mass ]on 10-23-2023 MCH (RBC) [Entitic mass] 31.1 pg 26.7-34.0 [facility] MCHC Auto (RBC) [Mass/Vol]on 10-23-2023 MCHC (RBC) [Mass/Vol] 32.8 g/dL 29.9-35.2 [facility] MCV Auto (RBC) [Entitic vol] on 10-23-2023 MCV (RBC) [Entitic vol] 95.0 fL 81.0-99.0 [facility] Monocytes Auto (Bld) [#/Vol] on 10-23-2023 Monocytes (Bld) [#/Vol] 0.3 10 3/uL 0.3-0.8 [facility] Monocytes/100 WBC Auto (Bld) on 10-23-2023 Monocytes/100 WBC (Bld) 5.5 % 1.7-12.0 [facility] Neutrophils Auto (Bld) [#/Vo l]on 10-23-2023 Neutrophils (Bld) [#/Vol] 3.0 10 3/uL 1.4-6.5 [facility] Neutrophils/100 WBC Auto (Bl d)on 10-23-2023 Neutrophils/100 WBC (Bld) 59.3 % 43.0-75.0 [facility] No Panel Informationon 10-22 Eosinophils # (Auto) 0.1 10 3/uL 0.0-0.7 [facility] Immature Granulocyte # (Auto) 0.01 10 3/uL 0.00-0.03 [facility] Platelet mean volume Auto (B ld) [Entitic vol]on 10-23-2023 Platelet mean volume (Bld) [Entitic vol] 9.0 fL 9.5-13.5 [facility] Platelets Auto (Bld) [#/Vol] on 10-23-2023 Platelets (Bld) [#/Vol] 182 10 3/uL 150-450 [facility] RBC Auto (Bld) [#/Vol]on RBC (Bld) [#/Vol] 3.79 10 6/uL 4.20-5.40 [facility] No Panel Informationon 10-11 Human Chorionic Gonadotropin, Quant 07831 mIU/mL [facility] Comment on above: 5-50 0.2-1 ABUG93-72 0 1-2 TPAKB838-1,000 2-3 IJGMG000-57,000 3-4 WEEKS1,000-50,000 4-5 WEEKS10,000-100,000 5-6 WEEKS15,000-200,000 6-8 WEEKS10,000-100,000 2-3 MONTHS No Panel Informationon 10-06 Human Chorionic Gonadotropin, Quant 92190 mIU/mL [facility] Comment on above: 5-50 0.2-1 LJFH63-93 0 1-2 CYKDJ469-4,000 2-3 NJKNC005-67,000 3-4 WEEKS1,000-50,000 4-5 WEEKS10,000-100,000 5-6 WEEKS15,000-200,000 6-8 WEEKS10,000-100,000 2-3 MONTHS No Panel Informationon 10-04 Human Chorionic Gonadotropin, Quant 75890 mIU/mL [facility] Comment on above: 5-50 0.2-1 NDAS66-71 0 1-2 NAOJV697-1,000 2-3 DWEOY378-44,000 3-4 WEEKS1,000-50,000 4-5 WEEKS10,000-100,000 5-6 WEEKS15,000-200,000 6-8 WEEKS10,000-100,000 2-3 MONTHS PAP ACOG PANEL 2: 30 to 65on 03-11-2022 . . Normal [facility] Comment on above: Result Comment: Perf ormed at: WB Performed By: #### [id number] #### [facility] [address] [place] [address] Dr. Danni Jacobs Age Gdln ACOG Testing 30-65 Normal [facility] Comment on above: Performed By: #### [id number] #### [facility] [address] [place] [address] Dr. Danni Jacobs DIAGNOSIS: Comment Normal [facility] Comment on above: Result Comment: NEGA TIVE FOR INTRAEPITHELIAL LESION OR MALIGNANCY. THIS SPECIMEN WAS RESCREENED PART OF OUR POACHER WRINGER OPERATOR PROGRAM. Performed at: WB Performed By: #### [id number] #### [facility] [address] [place] [address] Dr. Danni Jacobs HPV Aptima Negative Normal Negative [facility] Comment on above: Result Comment: This nucleic acid amplification test detects fourteen high-risk HPV types (16,18,31,33,35,39,45,51,52,56,58,59,66,68) without differentiation. Performed at: =G Performed By: #### [id number] #### [facility] [address] [place] [address] Dr. Danni Jacobs Methodology: Comment Normal [facility] Comment on above: Result Comment: This liquid based ThinPrep(R) pap test was screened with the use of an image guided system. Performed at: WB Performed By: #### [id number] #### [facility] [address] [place] [address] Dr. Danni Jacobs Note: Comment Normal [facility] Comment on above: Result Comment: The Pap smear is a screening test designed to aid in the detection of premalignant and malignant conditions of the uterine cervix. It is not a diagnostic procedure and should not be used as the sole means of detecting cervical cancer. Both false-positive and false-negative reports do occur. . Performed at: WB Performed By: #### [id number] #### [facility] [address] [place] [address] Dr. Danni Jacobs Performed by: Comment Normal [facility] Comment on above: Result Comment: Rocky [place] Director [employer] Performed at: WB Performed By: #### [id number] #### [facility] [address] [address] [address] Danni Jacobs QC reviewed by: Comment Normal [facility] Comment on above: Result Comment: Betzaida Ge, Supervisory Director [employer] ([employer]) Performed at: WB Performed By: #### [id number] #### [facility] [address] [address] [address] Danni Jacobs Specimen adequacy: Comment Normal [facility] Comment on above: Result Comment: Sati sfactory for evaluation. Endocervical and/or squamous metaplastic cells (endocervical component) are present. Performed at: WB Performed By: #### [id number] #### [facility] [address] [address] [address] Danni Jacobs GLUCOSE BLOODon 04-22-2021 Glucose [Mass/Vol] 99 mg/dL Normal 74-106 [facility] Comment on above: Performed By: #### G YOSEPH, LIPID #### [facility] [address] [place] [address] Dr. Danni Jacobs LIPID PROFILEon 04-22-2021 CHOL-HDL RATIO NORM SEE BELOW Normal [facility] Comment on above: Result Comment: 3.3 - 4.4 LOW RISK 4.4 - 7.1 AVERAGE RISK 7.1 - 11.0 MODERATE RISK >11.0 HIGH RISK Performed By: #### G YOSEPH, LIPID #### [facility] [address] [address] [address] Danni Jacobs Cholesterol [Mass/Vol] 157 mg/dL Normal <=200 [facility] Comment on above: Performed By: #### G YOSEPH, LIPID #### [facility] [address] [address] [address] Danni Jacobs Cholesterol in HDL [Mass/Vol] 74 mg/dL Normal [facility] Comment on above: Performed By: #### G YOSEPH, LIPID #### [facility] [address] [address] [address] Danni Jacobs Cholesterol in LDL [Mass/Vol] 71.2 mg/dL Normal [facility] Comment on above: Performed By: #### G YOSEPH, LIPID #### [facility] [address] [address] [address] Danni Jacobs Cholesterol.total/C holesterol in HDL [Mass ratio] 2.1 {ratio} Normal [facility] Comment on above: Performed By: #### G YOSEPH, LIPID #### [facility] [address] [address] [address] Danni Jacobs HDL NORMAL > or = 60 mg/dl - LO W CARDIOVASCULAR RISK <40 mg/dl - HIGH CARDIOVASCULAR RISK Normal [facility] Comment on above: Performed By: #### G YOSEPH, LIPID #### [facility] [address] [address] [address] Danni Jacobs LDL CALC NORMAL SEE BELOW Normal [facility] Comment on above: Result Comment: <100 mg/dl OPTIMAL 100 - 129 mg/dl NEAR OR ABOVE OPTIMAL 130 - 159 mg/dl BORDERLINE HIGH 160 - 189 mg/dl HIGH >190 mg/dl VERY HIGH Performed By: #### G YOSEPH, LIPID #### [facility] [address] [address] [address] Danni Jacobs Triglyceride [Mass/Vol] 59 mg/dL Normal <=150 [facility] Comment on above: Performed By: #### G YOSEPH, LIPID #### [facility] [address] [address] [address] Danni Jacobs VLDL CALC 11.8 mg/dL Normal [facility] Comment on above: Performed By: #### G YOSEPH, LIPID #### [facility] [address] [address] [address] Danni Jacobs Vital Signs Date Time Vital Sign Value Performing Clinician Faci lity 08-01-2024 13:55-0500 Body mass index (BMI) [Ratio] 22.87 kg/m2 [employer] Work Phone: [facility] [employer] 08-01-2024 13:55-0500 Body weight 66.22 kg [employer] Work Phone: [facility] 08-01-2024 13:55-0500 Diastolic blood pressure 74 mm[Hg] Scooby Gary DO Work Phone: [facility] 08-01-2024 13:55-0500 Systolic blood pressure 116 mm[Hg] Scooby Gary DO Work Phone: [facility] 07-18-2024 15:05-0500 Body mass index (BMI) [Ratio] 22.84 kg/m2 Scooby Gary DO Work Phone: [facility] 07-18-2024 15:05-0500 Body weight 66.13 kg Scooby Gary DO Work Phone: [facility] 07-18-2024 15:05-0500 Diastolic blood pressure 70 mm[Hg] Scooby Gary DO Work Phone: [facility] 07-18-2024 15:05-0500 Systolic blood pressure 118 mm[Hg] Scooby Gary DO Work Phone: [facility] 06-30-2024 12:01-0500 Body mass index (BMI) [Ratio] 22.26 kg/m2 Scooby Gary DO Work Phone: [facility] 06-30-2024 12:01-0500 Body weight 64.47 kg Scooyb Gary DO Work Phone: [facility] 06-30-2024 12:01-0500 Diastolic blood pressure 70 mm[Hg] Scooby Gary DO Work Phone: [facility] 06-30-2024 12:01-0500 Systolic blood pressure 110 mm[Hg] Scooby Gary DO Work Phone: [facility] 06-02-2024 10:45-0500 Body mass index (BMI) [Ratio] 21.9 kg/m2 Scooby Gary DO Work Phone: [facility] 06-02-2024 10:45-0500 Body weight 63.41 kg Scooby Gary DO Work Phone: [facility] 06-02-2024 10:45-0500 Diastolic blood pressure 72 mm[Hg] Scooby Gary DO Work Phone: [facility] 06-02-2024 10:45-0500 Systolic blood pressure 116 mm[Hg] Scooby Gary DO Work Phone: [facility] 05-02-2024 16:20-0500 Body mass index (BMI) [Ratio] 21.61 kg/m2 Emely Bola PA Work Phone: [facility] 05-02-2024 16:20-0500 Body weight 62.6 kg Emely Bola PA Work Phone: [facility] 05-02-2024 16:20-0500 Diastolic blood pressure 68 mm[Hg] Emely Bola PA Work Phone: [facility] 05-02-2024 16:20-0500 Systolic blood pressure 120 mm[Hg] Emely Bola PA Work Phone: [facility] 04-29-2024 11:40-0500 Body weight Jen Granados MD Work Phone: [facility] 04-04-2024 14:55-0400 Body mass index (BMI) [Ratio] 21.27 kg/m2 Scooby Gary DO Work Phone: [facility] 04-04-2024 14:55-0400 Body weight 61.6 kg Scooby Gary DO Work Phone: [facility] 04-04-2024 14:55-0400 Diastolic blood pressure 70 mm[Hg] Scooby Gray DO Work Phone: [facility] 04-04-2024 14:55-0400 Systolic blood pressure 116 mm[Hg] Scooby Gary DO Work Phone: [facility] 03-07-2024 10:47-0400 Body mass index (BMI) [Ratio] 20.07 kg/m2 Scooby Gary DO Work Phone: [facility] 03-07-2024 10:47-0400 Body weight 58.12 kg Scooby Gary DO Work Phone: [facility] 03-07-2024 10:47-0400 Diastolic blood pressure 68 mm[Hg] Scooby Gary DO Work Phone: [facility] 03-07-2024 10:47-0400 Systolic blood pressure 114 mm[Hg] Scooby Gary DO Work Phone: [facility] 12-01-2023 16:10-0400 Body height 170.18 cm Scooby Gary Work Phone: [facility] 12-01-2023 16:10-0400 Body mass index (BMI) [Ratio] 19.5 kg/m2 Scooby Gary Work Phone: [facility] 12-01-2023 16:10-0400 Body weight 56.69 kg Scooby Gary Work Phone: [facility] 12-01-2023 16:10-0400 Diastolic blood pressure 78 mm[Hg] Scooby Gary Work Phone: [facility] 12-01-2023 16:10-0400 Systolic blood pressure 112 mm[Hg] Scooby Gary Work Phone: [facility] Encounters Encounter Date Encounter Type Care Provider Facility Start: 08-12-2024 End: 08-12-2024 Clinisync Result Encounter Scooby Gary DO Work Phone: [facility] Unsolicited Start: 08-12-2024 End: 08-12-2024 Clinisync Result Encounter Scooby Gary DO Work [...] Jen Granados MD Work Phone: [facility] Work Phone: Start: 06-25-2024 End: 06-25-2024 Departed Referred Jen Granados MD Work Phone: [facility] Start: 06-25-2024 Non-patient / Non-visit Jen Granados MD Work Phone: [facility] Work Phone: Start: 06-02-2024 [...] / Non-visit Jen Granados MD Work Phone: [facility] Work Phone: Start: 05-02-2024 [...] / Non-visit Jen Granados MD Work Phone: [facility] Work Phone: Start: 04-04-2024 [...] BCP OB Start: 04-04-2024 End: 04-04-2024 ambulatory [facility] Start: 04-01-2024 End: 04-01-2024 [...] GA: 8w0d Start: 02-10-2024 End: 02-11-2024 ambulatory Gretchne Moreno PT [facility] Comment on above: Pain of left hip (Pr imary Dx); Hip flexor tendinitis, left Start: 02-10-2024 End: 02-10-2024 Bamboo flowsheet Gretchen Moreno PT [facility] Start: 02-10-2024 End: 02-10-2024 Bamboo flowsheet Gretchen Moreno PT [facility] Start: 02-08-2024 End: 02-08-2024 ambulatory [facility] Start: 02-08-2024 ambulatory [facility] Start: 12-01-2023 End: 12-01-2023 ambulatory Scooby Gary Work Phone: [facility] Work Phone: Start: 12-01-2023 End: 12-01-2023 Patient encounter procedure [facility]ooby Gary [facility] Start: 11-30-2023 Non-patient / Non-visit Scooby Gary Work Phone: [facility] Work Phone: Start: 11-23-2023 Non-patient / Non-visit Scooby Gary Work Phone: [facility] Work Phone: Start: 11-17-2023 Non-patient / Non-visit Scooby Gary Work Phone: [facility] Work Phone: Start: 11-09-2023 Non-patient / Non-visit Scooby Gary Work Phone: [facility] Work Phone: Start: 11-09-2023 End: 11-09-2023 ambulatory EMELY HUNTER Not Available Start: 10-23-2023 End: 10-23-2023 ambulatory Scooby Gary [facility] Work Phone: Start: 10-23-2023 End: 10-23-2023 Departed Referred Scooby Gary Work Phone: [facility] Start: 10-23-2023 Non-patient / Non-visit Scooby Gary Work Phone: [facility] Work Phone: Start: 10-12-2023 Non-patient / Non-visit Scooby Gary Work Phone: [facility] Work Phone: Start: 10-07-2023 Non-patient / Non-visit Scooby Gary Work Phone: [facility] Work Phone: Start: 10-05-2023 Non-patient / Non-visit Scooby Gary Work Phone: [facility] [employer] Work Phone: Start: 03-03-2022 End: 03-03-[address] SCOOBY VEGA Facility:H1 Start: 04-28-2021 Encounter for genera l adult medical examination without abnormal findings DR DALTON LOGAN [facility] Start: 04-22-2021 End: 04-23-[address] DALTON LOGAN Facility:[facility]1 Start: 04-22-2021 End: 04-23-2021 Encounter for general adult medical examination without abnormal findings DR DALTON LOGAN Facility:[facility]1 Procedures Date Procedure Procedure Detail Performing Clinician Start: 08-12-2024 US OB BPP W NON-STRESS Scooby Gary DO Work Phone: Start: 08-06-2024 US OB BPP W NON-STRESS [...] Follow-up visit Follow-up ASHLEY ROCK Start: 02-26-2024 TB BOX TEST SENT OUT Nery Vega DO Work Phone: Start: 02-16-2024 ALL CBC WITH AUTO DIFF Scooby Fragosoo DO Work Phone: Start: 02-12-2024 End: 02-12-2024 Urnls dip stick/tablet rgnt non-auto w/o micrscp Scooby Fragosoo DO Work Phone: Plan of Treatment Date Care Activity Detail Author Start: 08-18-2024 End: 08-18-2024 Patient encounter procedure 08/18/2024 9:20 AM EST Routine [facility] [address] [place] [address] Scooby Vega [place] [facility] [place] [address] [facility] Start: 08-01-2024 End: 08-01-2024 Patient encounter procedure 08/01/2024 1:20 PM EST Routine [facility] [address] [place] [address] Scooby Vega DO [facility] [place] [address] [facility] Start: 07-18-2024 End: 07-18-2024 Patient encounter procedure 07/18/2024 2:30 PM EST Routine [facility] [address] [place] [address] Scooby Vega DO [address] [place] [address] [facility] Start: 07-18-2024 End: 07-18-2025 [...] control unspecified Expected: 06/30/2024 (Approximate), Expires: 06/30/2025 [facility] Comment on above: Expected: 06/30/2024 (Approximate), Expires: 06/30/2025 Start: 06-30-2024 End: 06-30-2025 US for US OB follow up transabdominal approach Imaging Routine Gestational diabetes mellitus (GDM), antepartum, gestational diabetes method of control unspecified Expected: 06/30/2024, Expires: 06/30/2025 [facility] Work Phone: Comment on above: Expected: 06/30/2024 , Expires: 06/30/2025 Start: 06-30-2024 End: 06-30-2024 Patient encounter procedure 06/30/2024 11:50 AM EST Routine [facility] [address] [place] [phone] Scooby Vega, DO [address] [facility] [place] [address] [facility] Start: 06-25-2024 Urine culture [facility] Start: 06-25-2024 Bacteria identified in Urine by Culture Urine Culture [facility] Start: 06-02-2024 End: 06-02-2025 CBC panel [...] mellitus screening Expected: 06/02/2024 (Approximate), Expires: 06/02/2025 [facility] Comment on above: Expected: 06/02/2024 (Approximate), Expires: 06/02/2025 Start: 06-02-2024 End: 06-02-2024 Patient encounter procedure 06/02/2024 10:10 AM EST Routine [facility] [address] [address] Scooby Vega DO [address] [place] [address] [facility] Start: 05-02-2024 End: 05-02-2024 Patient encounter procedure 05/02/2024 3:30 PM EST Routine [facility] [address] [place] [address] Emely Hunter PA [address] [place] [address] [facility] Start: 05-02-2024 End: 10-30-2024 Alpha fetoprotein, maternal Alpha fetoprotein, maternal Lab Routine Second trimester 19 weeks gestation of Expected: 05/02/2024 (Approximate), Expires: 10/30/2024 [facility] Comment on above: Expected: 05/02/2024 (Approximate), Expires: 10/30/2024 Start: 05-02-2024 End: 05-02-2025 US for US OB ANATOMY SINGLE W US OB CERVICAL LENGTH Imaging Routine Screening, , for anatomic survey Expected: 05/02/2024 (Approximate), Expires: 05/02/2025 [facility] Comment on above: Expected: 05/02/2024 (Approximate), Expires: 05/02/2025 Start: 04-26-2024 End: 04-26-2024 Patient encounter procedure 04/26/2024 11:00 AM EST Office Visit [facility] [address] [address] Scooby Vega, DO [address] [facility] [address] [place] [address] [facility] Start: 04-04-2024 End: 04-04-2024 [...] Treatment [facility] [address] [facility] [address] [place] [address] Gretchen Moreno, PT [facility] Start: 03-23-2024 End: 03-23-2024 ambulatory 03/23/2024 1:00 PM EDT Treatment [facility] [address] [facility] [address] [place] [address] Gretchen Moreno, PT [facility] Start: 03-18-2024 End: 03-18-2024 ambulatory 03/18/2024 1:30 PM EDT Treatment [facility] [address] [facility] [address] [place] [address] Gretchen Moreno, PT [facility] Start: 03-11-2024 End: 03-11-2024 ambulatory 03/11/2024 1:30 PM EDT Treatment [facility] [address] [facility] [address] [place] [address] Gretchen Moreno, PT [facility] Start: 03-07-2024 End: 03-07-2024 Patient encounter procedure 03/07/2024 10:10 AM EDT Routine [facility] [address] [facility] [address] Scooby Vega, DO [address] [facility] [address] [place] [address] [facility] Start: 03-03-2024 End: 03-03-2024 ambulatory 03/03/2024 10:30 AM EDT Treatment [facility] [address] [facility] [address] [place] [address] Gretchen Moreno, PT [facility] Start: 02-26-2024 End: 02-26-2024 ambulatory 02/26/2024 1:30 PM EDT Treatment [facility] [address] [facility] [address] [place] [address] Gretchen Moreno, PT Arrived [facility] Comment on above: Arrived Start: 02-25-2024 End: 02-25-2024 ambulatory 02/25/2024 10:30 AM EDT Treatment [facility] [address] [facility] [address] [place] [address] Gretchen Moreno, PT [facility] Start: 02-17-2024 End: 02-17-2024 ambulatory 02/17/2024 12:00 PM EDT Treatment [facility] [address] [facility] [address] [place] [address] Gretchen Moreno, PT [facility] Start: [...] AM EDT Initial [facility] [address] [place] [address] [facility] Start: 02-12-2024 End: 02-12-2024 Professional / ancillary services management 02/12/2024 10:00 AM EDT Ancillary Procedure [facility] [address] [place] [address] [facility] Start: 02-10-2024 End: 02-10-2024 ambulatory 02/10/2024 5:00 PM EDT Evaluation [facility] [address] [facility] [address] [place] [address] Gretchen Moreno, PT Arrived [facility] Comment on above: Arrived Bacteria identified in Urine by Culture Urine culture Microbiology Routine Missed menses Ordered: 02/12/2024 [facility] Comment on above: Ordered: 02/12/2024 CBC W Auto Different ial panel - Blood CBC and differential Lab Routine Missed menses Ordered: 02/12/2024 [facility] Comment on above: Ordered: 02/12/2024 CHLAMYDIA TRACHOMATI S (GENITO/STI) CHLAMYDIA TRACHOMATIS (GENITO/STI) Lab Routine STD exposure Ordered: 05/02/2024 [facility] Comment on above: Ordered: 05/02/2024 Cytology Cervical or vaginal smear or scraping study Pap Smear Pathology and Cytology Routine Well woman exam with routine gynecological exam Ordered: 05/02/2024 [facility] Comment on above: Ordered: 05/02/2024 Hemoglobin A1c/Hemoglobin.total in Blood Hemoglobin A1c Lab Routine Missed menses Ordered: 02/12/2024 [facility] Comment on above: Ordered: 02/12/2024 Hepatitis B virus surface Ag [Presence] in Serum or Plasma by Immunoassay Hepatitis B surface antigen Lab Routine Missed menses Ordered: 02/12/2024 [facility] Comment on above: Ordered: 02/12/2024 Hepatitis C virus Ab [Presence] in Serum or Plasma by Immunoassay Hepatitis C antibody Lab Routine Missed menses Ordered: 02/12/2024 [facility] Comment on above: Ordered: 02/12/2024 HIV-1/HIV-2 antigen/antibody combination immunoassay HIV-1 and HIV-2 antibodies Lab Routine Missed menses Ordered: 02/12/2024 [facility] Comment on above: Ordered: 02/12/2024 Human papilloma viru s DNA [Presence] in Unspecified specimen by Probe with amplification HPV DNA probe, amplified Microbiology Routine Well woman exam with routine gynecological exam Ordered: 05/02/2024 [facility] Comment on above: Ordered: 05/02/2024 Neisseria gonorrhoea e DNA [Presence] in Unspecified specimen by JUAN ANTONIO with probe detection Neisseria gonorrhea DNA probe, direct Lab Routine STD exposure Ordered: 05/02/2024 [facility] Comment on above: Ordered: 05/02/2024 Reagin Ab [Presence] in Serum by RPR RPR Lab Routine Missed menses Ordered: 02/12/2024 [facility] Comment on above: Ordered: 02/12/2024 Rubella antibody, IgG Rubella an tibody, IgG Lab Routine Missed menses Ordered: 02/12/2024 [facility] Comment on above: Ordered: 02/12/2024 SURESWAB(R) ADVANCED VAGINITIS PLUS, TMA SURESWAB(R) ADVANCED VAGINITIS PLUS, TMA Pathology and Cytology Routine Vaginal discharge Ordered: 05/02/2024 [facility] Work Phone: Comment on above: Ordered: 05/02/2024 XR Hip - left 2 Views [facility] Payers Date Payer Category Payer Private Health Insurance [employer] N [id number] 2022 Unknown NILAM JORGENSEN [id number] 2022-Present [phone] [address] [place] [address] [id number] 1987 Unknown [id number] 2.16.840.1.988717.3.579.2 .593 1987 Unknown [id number] 2.16840.1.687086.3.579.2 .593 1987 Unknown [id number] 2.16.840.1.200587.3.579.2 .1286 1987 Unknown [id number] 2.16.840.1.672266.3.579.2 .1285 1987 Unknown [id number] 2.16.840.1.868519.3.579.2 .1286 1987 Unknown [id number] 2.16.840.1.087522.3.579.2 .1259 1987 Unknown [id number] 2.16.840.1.704206.3.579.2 .1259 1987 Unknown [id number] 2.16.840.1.366903.3.579.2 .9 1987 Unknown [id number] 2.16.840.1.110915.3.579.2 .1259 1987 Unknown [id number] 2.16.840.1.700448.3.579.2 .1258 1987 Unknown [id number] 2.16.840.1.188006.3.579.2 .1258 1987 Unknown [id number] 2.16.840.1.504332.3.579.2 .1258 1987 Unknown [id number] 2.16.840.1.835417.3.579.2 .1258 1987 Unknown [id number] 2.16.840.1.849228.3.579.2 .1258 1987 Unknown [id number] 2.16.840.1.146799.3.579.2 .1258 1987 Unknown [id number] 2.16.840.1.771409.3.579.2 .1258 1987 Unknown [id number] 2.16.840.1.446984.3.579.2 .1258 1987 Unknown [id number] 2.16.840.1.907771.3.579.2 .1258 1987 Unknown [id number] 2.16.840.1.493092.3.579.2 .1258 1987 Unknown [id number] 2.16.840.1.606273.3.579.2 .1258 1987 Unknown [id number] 2.16.840.1.912437.3.579.2 .1258 1987 Unknown [id number] 2.16.840.1.602107.3.579.2 .1258 1959 Unknown [id number] Social History Date Type Detail Facility [facility] Work Phone: Start: 1985 Sex Assigned At Female F [facility] Start: 02-26-2023 [facility] Start: 11-09-2023 History of Social function [facility] Start: 11-09-2023 Tobacco use panel [facility] Start: 01-01-2024 [facility] Start: 1985 Sex assigned at Not on file [facility] Work Phone: Start: 06-27-2024 Sex Female (finding) [facility] Medical Equipment Procedure Code Equipment Code Equipment Origin al Text Equipment Identifier Dates 1 strip by In Vi tro route Daily Use in the morning prior to breakfast, 1 hour after each meal for a total of 4times daily. [id number] Start: 06-02-2024 End: 07-02-2024 1 each by In Vit ro route Daily Use to check FSBS four times daily [id number] Start: 06-02-2024 End: 07-02-2024 Goals Date Patient Goal Desired Activity /State Personal health goal Clinical Notes 02-10-2024 to 08-01-2024 Kalie Loera, PETER - 08/01/2024 1:20 PM Abel Loera, TRAINING DEVELOPER - 07/18/2024 2:30 PM JORDYN Love - 06/30/2024 11:50 AM Jose Francisco Villanueva, TRAINING DEVELOPER - 06/02/2024 10:10 AM EST Note Date [...] nursing note reviewed. Exam conducted with a route supervisor present. Vitals: Estimated body mass index is [...] Vega DO documented in this encounter [facility] 07-18-2024 History of Present illness Narrative Reason [...] 81 mg, Daily Blood Glucose Monitoring Suppl ([employer] Glucometer) w/Device kit 1 kit, Does not [...] nursing note reviewed. Exam conducted with a route supervisor present. Vitals: Estimated body mass index is [...] Hunter PA-C documented in this encounter [facility] 06-30-2024 History of Present illness Narrative Reason [...] Vega DO documented in this encounter [facility] 06-02-2024 History of Present illness Narrative Reason [...] nursing note reviewed. Exam conducted with a route supervisor present. Vitals: Estimated body mass index is [...] Vega DO documented in this encounter [facility] 05-02-2024 History of Present illness Narrative Reason [...] nursing note reviewed. Exam conducted with a route supervisor present. Vitals: Estimated body mass index is [...] without difficulty and patient was given [facility] order to have obtained. Orders Placed [...] JORDYN Fonseca documented in this encounter [facility] 04-04-2024 History of Present illness Narrative Reason [...] nursing note reviewed. Exam conducted with a route supervisor present. Vitals: Estimated body mass index is [...] Aspirin. Discussed again in regards to seeing [facility] & referral will be completed. Patient to have NST/BPP starting at 32 weeks gestation. Patient will have Anatomy Scan done at [facility]. Patient is Rh Negative and will require [...] Vega DO documented in this encounter [facility] 04-01-2024 History of Present illness Narrative Physical [...] and it pops a lot randomly. Precautions: [place] Subjective: Pt states overall, ROM has improved. [...] to be instructed in home exercise program. [facility] Goals: To be met in 10 weeks [...] below. Date: documented in this encounter [facility] 03-23-2024 History of Present illness Narrative Physical [...] and it pops a lot randomly. Precautions: [place] Subjective: Pt states range of motion of [...] to be instructed in home exercise program. Project Specialist Goals: To be met in 10 weeks [...] below. Date: documented in this encounter [facility] 03-18-2024 History of Present illness Narrative Physical [...] and it pops a lot randomly. Precautions: [place] Subjective: Pt states she feels like her [...] to be instructed in home exercise program. [facility] Goals: To be met in 10 weeks [...] below. Date: documented in this encounter [facility] 03-11-2024 History of Present illness Narrative Physical [...] and it pops a lot randomly. Precautions: [place] Subjective: Pt states overall she believes hip [...] to be instructed in home exercise program. Project Specialist Goals: To be met in 10 weeks [...] below. Date: documented in this encounter [facility] 03-07-2024 History of Present illness Narrative Reason [...] nursing note reviewed. Exam conducted with a route supervisor present. Vitals: Estimated body mass index is [...] or undercooked meat, and stay away from [facility]. Patient has been consulted regarding any further do's and don'ts of . Patient voiced understanding and all questions and concerns were answered. Follow Up: Patient is to return in 4 weeks for routine OB appointment. Documented by Kalie Loera LPN on behalf of: Scooby Vgea DO documented in this encounter [facility] 03-03-2024 History of Present illness Narrative Physical [...] and it pops a lot randomly. Precautions: [place] Subjective: Pt states she has been doing [...] to be instructed in home exercise program. [facility] Goals: To be met in 10 weeks [...] below. Date: documented in this encounter [facility] 02-26-2024 History of Present illness Narrative Physical [...] and it pops a lot randomly. Precautions: [place] Subjective: Pt states she was able to [...] to be instructed in home exercise program. Project Specialist Goals: To be met in 10 weeks [...] below. Date: documented in this encounter [facility] 02-17-2024 History of Present illness Narrative Physical [...] and it pops a lot randomly. Precautions: [place] Subjective: Pt states she has not done [...] to be instructed in home exercise program. [facility] Goals: To be met in 10 weeks [...] below. Date: documented in this encounter [facility] 02-12-2024 History of Present illness Narrative Reason [...] or undercooked meat, and stay away from [facility]. Patient has also been advised to [...] Cobb LPN documented in this encounter [facility] 02-10-2024 History of Present illness Narrative Physical [...] and it pops a lot randomly. Precautions: [place] Subjective: left hip ant and lateral Pain: [...] to be instructed in home exercise program. Project Specialist Goals: To be met in 10 weeks [...] sign below. Date: documented in this encounter [facility] Evaluation note No assessment inform ation available [facility] Work Phone: Evaluation note Diagnosis Onset Date Left hip pain acute [facility] Work Phone: Evaluation note* Diagnosis Pain [...] gestation of documented in this encounter [facility] Summary Purpose Family History No Family History Records FoundNo Family History Records FoundNo Family History Records FoundNo Family History Records Found Advance Directives Advance Directive Response Recorded Date/ Time Advance Directives No November 30 3:47pm Advance Directive Response Recorded Date/ Time Advance Directives No November 30 2:47pm Additional Source Comments INFORMATION SOURCE (unrecogn ized section and content) DATE CREATED AUTHOR 03/22/2022 [facility] DATE CREATED AUTHOR AUTHOR'S ORGANIZ ATION 04/05/2024 [facility] DATE CREATED AUTHOR AUTHOR'S ORGANIZ ATION 07/03/2024 [facility] DATE CREATED AUTHOR AUTHOR'S ORGANIZ ATION 08/03/2024 [facility] EPIC Care Teams (unrecognized sec tion [...] December 01, 2023 End: December 01, 2023 Seismograph Observer Relationship Specialty Start Date End Date Jen Granados MD [address] [place] [facility] [place] [address] PCP - General Family Medicine 03/10/23 Seismograph Observer Relationship Specialty Start Date End Date Jen Granados MD [address] [place] [facility] [place] [address] PCP - General Family Medicine 03/10/23 Seismograph Observer Relationship Specialty Start Date End Date Jen Granados MD [address] [place] [facility] [place] [address] PCP - General Family Medicine 03/10/23 Seismograph Observer Relationship Specialty Start Date End Date Jen Granados MD [address] [place] [facility] [place] [address] PCP - General Family Medicine 03/10/23 Seismograph Observer Relationship Specialty Start Date End Date Jen Granados MD [address] [place] [facility] [place] [address] PCP - General Family Medicine 03/10/23 Seismograph Observer Relationship Specialty Start Date End Date Jen Granados MD [address] [place] [facility] [place] [address] PCP - General Family Medicine 03/10/23 Seismograph Observer Relationship Specialty Start Date End Date Jen Granados MD [address] [place] [address] PCP - General Family Medicine 03/10/23 Seismograph Observer Relationship Specialty Start Date End Date Jen Granados MD [address] [place] [address] PCP - General Family Medicine 03/10/23 Seismograph Observer Relationship Specialty Start Date End Date Jen Granados MD [address] [facility] [place] [address] PCP - General Family Medicine 03/10/23 Seismograph Observer Relationship Specialty Start Date End Date Jen Granados MD [address] [facility] [place] [address] PCP - General Family Medicine 03/10/23 Seismograph Observer Relationship Specialty Start Date End Date Jen Granados MD [address] [place] [address] PCP - General Family Medicine 03/10/23 Seismograph Observer Relationship Specialty Start Date End Date Jen Granados MD [address] [facility] [place] [address] PCP - General Family Medicine 03/10/23 Seismograph Observer Relationship Specialty Start Date End Date Jen Granados MD [address] [place] [address] PCP - General Family Medicine 03/10/23 Seismograph Observer Relationship Specialty Start Date End Date Jen Granados MD [address] [facility] [place] [address] PCP - General Family Medicine 03/10/23 Seismograph Observer Relationship Specialty Start Date End Date Jen Granados MD [address] [place] [facility] [place] [address] PCP - General Family Medicine 03/10/23 Team [...] June 25, 2024 End: June 25, 2024 Seismograph Observer Relationship Specialty Start Date End Date Jen Granados MD [address] [place] [address] PCP - General Family Medicine 03/10/23 Seismograph Observer Relationship Specialty Start Date End Date Jen Granados MD [address] [place] [facility] [place] [address] PCP - General Family Medicine 03/10/23 Seismograph Observer Relationship Specialty Start Date End Date Jen Granados MD [address] [place] [facility] [place] [address] PCP - General Family Medicine 03/10/23 Seismograph Observer Relationship Specialty Start Date End Date Jen Granados MD [address] [facility] [place] [address] PCP - General Family Medicine 03/10/23 Seismograph Observer Relationship Specialty Start Date End Date Jen Granados MD [address] [facility] [place] [address] PCP - General Family Medicine 03/10/23 Goals (unrecognized section and content) Goals may be documented in a n alternate sectionGoals may be documented in an alternate sectionGoals may be documented in an alternate section Reason for Visit (unrecogniz ed section and content) Specialty Diagnoses / Procedures Referred By Contles t Referred To Contact Physical Therapy Diagnoses Pain in left hip Other specified enthesopathies of left lower limb, excluding foot Procedures [place] PHYSICAL THERAPY EVALUATION LOW COMPLEX 20 MINS Ashley Rock MD [address] [place] [address] Gretchen Moreno PT Referral ID Status Reason Start Date Expiration Date V isits Requested Visits Authorized [id number] Authorized 02/10/2024 08/08/2024 99 99 Reason Comments [...] BE BASED ON THE PRIMARY CLINICAL RECORDS. [employer] provides no warranty or guarantee of the accuracy or completeness of information in this document.
[2024-08-16 18:09] VITALS: BP 131/76; PULSE 86
[2024-08-16 18:29] VITALS: BP 126/72; PULSE 88
== END 2024-08-16 18:35 | disposition home or self-care (01) ==
LOC: FBCO 18:00 → FBC 18:03
PROVIDERS: PCP Family Medicine; Visit Provider Obstetrics & Gynecology
DX: O24.419 Gestational diabetes mellitus in pregnancy, unspecified control (principal); Z3A.00 Weeks of gestation of pregnancy not specified
CPT/HCPCS: 59025

== ENCOUNTER 2024-08-19 00:14 | Outpatient (OUT) | payer OTHER, SELFPAY ==
--- OUTSIDE RECORDS SUMMARY | 2024-08-19 00:18 | XMS_ITS | CCD ---
Author Organization [facility] Care Team Providers Care Disability Case Manager Name Role Phone DOREEN, DR HOFFMAN [...] Unavailable Jen Granados MD Primary Care Provider [phone] Jae Cervantes DO Attending Provider Unavailab Jae Redd Admitting Unavailable Jae Cervantes Attending Unavailable Jne Granados Primary Care Unavailable Scooby Vega Admitting [...] Translations: [AMOXICILLIN] Drug Allergy 3 GI intolerance [facility] (3 sources) 12 Hour Decongestant Allergy to substance 3 Hives [facility] Medications Current Medications Medication Drug Class(es) Dates Sig (Normalized) Sig (Original) aspirin 81 mg oral tablet (20 sources) Platelet Aggregation Inhibitor, Nonsteroidal Anti-inflammatory Drug take 81 mg by mouth once daily BABY ASPIRIN PO Take 81 mg by mouth Daily Active Blood Glucose Monitoring Suppl (D-Care Glucometer) w/Device kit (17 sources) Start: 06-02-2024 End: 08-18-2024 Blood Glucose Monitoring Suppl (D-Care Glucometer) w/Device kit Indications: Elevated glucose tolerance test 1 kit Daily Use four times daily to check FSBS. In the morning prior to breakfast & 1 hour after each meal for a total of 4times daily. 1 kit 06/02/2024 08/18/2024 Discontinued (Other) Start: 06-02-2024 End: 06-02-2025 Blood Glucose Monitoring [...] (Other) isopropyl alcohol 0.7 ml/ml medicated pad (17 sources) Start: 06-02-2024 End: 08-18-2024 Alcohol Swabs (Alcohol Prep Pad) 70 % pads Indications: Elevated glucose tolerance test Apply 1 Pad topically Daily Use four times daily to check FSBS. 150 each 3 06/02/2024 08/18/2024 Discontinued (Other) minocycline 50 mg oral capsule (3 sources) Tetracycline-class Drug End: 02-12-2024 take 1 capsule by mouth every twelve hours minocycline 50 MG capsule 1 capsule every 12 (twelve) hours 02/12/2024 Discontinued (Other) omega-3 acid ethyl esters (assisted) 1000 mg oral capsule (2 sources) take 1 capsule by mouth in the morning omega-3 acid ethyl esters (Lovaza) 1 g capsule Take 1 g by mouth in the morning and 1 g before bedtime. Active MV & Min w/FA-DHA ( Gummies) [...] Dose Daily 30 tablet 11 11/09/2023 Active MV-Min-Fe Fum-FA-DH A ( 1 PO) (2 sources) MV-Min- Fe Fum-FA-DHA ( 1 PO) Take by mouth Active Completed/Discontinued Medications Medication Drug Class(es) Dates [...] 6 03/07/2024 04/06/2024 Active magnesium citrat e solution Take by mouth Active magnesium oxide 400 mg oral tablet [...] menstruation, unspecified] 02-12-2024 Chronic Other complications of (20 sources) Multigravida of advanced maternal age; Translations: [Supervision of elderly multigravida, unspecified trimester] Onset: 03-07-2024 03-07-2024 Episodic Other complications of (2 sources) Nausea [...] of ] 07-18-2024 Episodic Residual codes; unclassified (9 sources) Gestation period, 32 weeks; Translations: [32 weeks gestation of ] Onset: 08-01-2024 08-01-2024 Episodic Residual codes; unclassified (4 sources) Gestation period, 34 weeks; Translations: [34 weeks gestation of ] Onset: 08-18-2024 08-18-2024 Episodic Unclassified (1 source) New Patient Onset: 02-08-2024 Unclassified (20 sources) OB Reminders Onset: 05-02-2024 05-02-2024 Past or Other Problems Problem Classification Problem Date Documented Da te Episodic/Chronic Residual codes; unclassified (20 sources) Gestation period, 15 weeks; Translations: [15 weeks gestation of ] Onset: 04-04-2024 04-04-2024 Episodic Results Test Name Value Interpretation Reference Range Facility Urinalysis macro (dipstick) panel (U)on 08-18-2024 Bilirubin, UA Negative Negative - 4(70) +++ mg/dL [facility] Blood, UA Negative Negative - 50 Ulises/mcL [facility] Clarity, UA Clear [facility] Color, UA Yellow [facility] Glucose, UA Negative Negative - 1999(110) ++++ mg/dL [facility] Interpretation and review of laboratory results Abnormal [facility] Ketones, UA Negative Negative - 160(16) ++++ mg/dL [facility] Leukocytes, UA Negative Negative - 500+++ Clair/mcL [facility] Nitrite, UA Negative Negative - Positive [facility] pH, UA 7 5 - 9 [facility] Protein, UA Trace Negative - 1999(20) ++++ mg/dL [facility] Spec Grav, UA 1.025 1 - 1.03 [facility] Urobilinogen, UA 0.2 0.2 - 12 mg/dL [facility] US OB BPP W NON-STRESS on 08-12-2024 [place] [address] Ultrasound Report Signed Patient: RAPHAEL ELIZABETH MR#: [id number] : 1985 Acct:[id number] Age/Sex: 38 / F ADM Date: 08/12/24 Loc: US Attending Dr: Scooby Vega D.O. Ordering Physician: Scooby Vega D.O. Date of Service: 08/12/24 Procedure(s): US OB BPP w non-stress Accession Number(s): [id number] cc: Jen Granados M.D.; Scooby Vega D.O. [place] [address] Patient Name: RAPHAEL ELIZABETH MRN: [id number] date: 1985 Sex: F Assigned Patient Location: [facility] Current Patient Location: Accession/Order Number: [id number] Exam Date: 08/12/2024 22:10 Report Date: 08/12/2024 22:12 At the request of: SCOOBY VEGA DO Procedure: US OB BPP w non-stress Biophysical profile. Reason for exam: GBM. COMPARISON: Biophysical profile 08/06/2024. TECHNIQUE: Transabdominal imaging of the gravid uterus was obtained. FINDINGS: Cylinder Loader reports the BPP is 8 out of 8. SIDDHARTHA is normal 11.2 cm. heart rate 142 bpm. US/US OB BPP w non-stress IMPRESSION: BPP 8 out of 8. Impression dictated by: Lucas Martin Jr., D.O.08/12/2024 10:12 PM Dictation Location: [place] [address] Electronically authenticated by: [id number] Y Date: 08/12/2024 22:12 Dictated By: Lucas Martin M.D. Signed By: 08/12/242213 DD/ 11 TD/TT: Card Brusher: [facility] RadiologyKeyana MD - 08/12/2024 [place] [address] Ultrasound Report Signed Patient: RAPHAEL ELIZABETH MR#: [id number] : 1985 Acct:[id number] Age/Sex: 38 / F ADM Date: 08/12/24 Loc: US Attending Dr: Scooby Vega D.O. Ordering Physician: Scooby Vega D.O. Date of Service: 08/12/24 Procedure(s): US OB BPP w non-stress Accession Number(s): [id number] cc: Jen Granados M.D.; Scooby Vega D.O. [place] [address] Patient Name: RAPHAEL ELIZABETH MRN: [facility]:[id number] date: 1985 Sex: F Assigned Patient Location: [facility] Current Patient Location: Accession/Order Number: [id number] Exam Date: 08/12/2024 22:10 Report Date: 08/12/2024 22:12 At the request of: SCOOBY VEGA DO Procedure: US OB BPP w non-stress Biophysical profile. Reason for exam: GBM. COMPARISON: Biophysical profile 08/06/2024. TECHNIQUE: Transabdominal imaging of the gravid uterus was obtained. FINDINGS: Cylinder Loader reports the BPP is 8 out of 8. SIDDHARTHA is normal 11.2 cm. heart rate 142 bpm. US/US OB BPP w non-stress IMPRESSION: BPP 8 out of 8. Impression dictated by: Lucas Martin Jr., D.O.08/12/2024 10:12 PM Dictation Location: [place] [address] Electronically authenticated by: [id number] Y Date: 08/12/2024 22:12 Dictated By: Lucas Martin M.D. Signed By: 08/12/242213 DD/ 11 TD/TT: Card Brusher: [facility] Radiology Study observation (narrative) [facility] US OB BPP W NON-STRESS Ordered By: Radiologist Radiology on 08-12-2024 [facility] Work Phone: US OB BPP W NON-STRESS on 08-06-2024 [place] [address] Ultrasound Report Signed Patient: RAPHAEL ELIZABETH MR#: [id number] : 1985 Acct:[id number] Age/Sex: 38 / F ADM Date: 08/05/24 Loc: US Attending Dr: Scooby Vega D.O. Ordering Physician: Scooby Vega D.O. Date of Service: 08/05/24 Procedure(s): US OB BPP w non-stress Accession Number(s): [id number] cc: Jen Granados M.D.; Scooby Vega D.O. [place] [id number] Patient Name: RAPHAEL ELIZABETH MRN: [id number] date: 1985 Sex: F Assigned Patient Location: [facility] Current Patient Location: Accession/Order Number: [id number] Exam Date: 08/05/2024 19:09 Report Date: 08/06/2024 [...] Signed By: 08/06/24 0753 DD/ 075 TD/TT: Card Brusher: [facility] RadiologyKeyana MD - 08/06/2024 [place] [address] Ultrasound Report Signed Patient: RAPHAEL ELIZABETH MR#: [id number] : 1985 Acct:[id number] Age/Sex: 38 / F ADM Date: 08/05/24 Loc: US Attending Dr: Scooby Vega D.O. Ordering Physician: Scooby Vega D.O. Date of Service: 08/05/24 Procedure(s): US OB BPP w non-stress Accession Number(s): [id number] cc: Jen Granados M.D.; Scooby Vega D.O. The [place] [id number] Patient Name: RAPHAEL ELIZABETH MRN: [facility]:[id number] date: 1985 Sex: F Assigned Patient Location: [facility] Current Patient Location: Accession/Order Number: [id number] Exam Date: 08/05/2024 19:09 Report Date: 08/06/2024 [...] Dictated By: Tika Kimball M.D. Signed By: 08/06/24752 DD/ 0 TD/TT: Card Brusher: [facility] Radiology Study observation (narrative) [facility] US OB BPP W NON-STRESS Ordered By: Radiologist Radiology on 08-06-2024 [facility] Work Phone: US OB BPP W NON-STRESS on 08-01-2024 [place] [address] Ultrasound Report Signed Patient: RAPHAEL ELIZABETH MR#: [id number] : 1985 Acct:[id number] Age/Sex: 38 / F ADM Date: 07/29/24 Loc: US Attending Dr: Scooby Vega D.O. Ordering Physician: Scooby Vega D.O. Date of Service: 07/29/24 Procedure(s): US OB BPP w non-stress Accession Number(s): [id number] cc: Jen Granados M.D.; Scooby Vega D.O. [place] [address] Patient Name: RAPHAEL ELIZABETH MRN: [id number] date: 1985 Sex: F Assigned Patient Location: [facility] Current Patient Location: Accession/Order Number: [id number] Exam Date: 07/29/2024 19:04 Report Date: 08/01/2024 [...] M.D. Signed By: 08/01/24713 DD/ 0 TD/TT: Card Brusher: [facility] Radiology, Radiologdora guillen MD - 08/01/2024 [place] [address] Ultrasound Report Signed Patient: RAPHAEL ELIZABETH MR#: [id number] : 1985 Acct:[id number] Age/Sex: 38 / F ADM Date: 07/29/24 Loc: US Attending Dr: Scooby Vega D.O. Ordering Physician: Scooby Vega D.O. Date of Service: 07/29/24 Procedure(s): US OB BPP w non-stress Accession Number(s): [id number] cc: Jen Granados M.D.; Scooby Vega D.O. [place] [address] Patient Name: RAPHAEL ELIZABETH MRN: [facility]:[id number] date: 1985 Sex: F Assigned Patient Location: [facility] Current Patient Location: Accession/Order Number: [id number] Exam Date: 07/29/2024 19:04 Report Date: 08/01/2024 [...] Tika Kimball M.D. Signed By: 08/01/24713 DD/ 0711 TD/TT: Card Brusher: [facility] Radiology Study observation (narrative) [facility] US OB BPP W NON-STRESS Ordered By: Radiologist Radiology on 08-01-2024 [facility] Work Phone: Urinalysis macro (dipstick) panel (U)on 08-01-2024 Bilirubin, UA Negative Negative - 4(70) +++ mg/dL [facility] Blood, UA Negative Negative - 50 Ulises/mcL [facility] Clarity, UA Clear [facility] Color, UA Yellow [facility] Glucose, UA Negative Negative - 1999(110) ++++ mg/dL [facility] Interpretation and review of laboratory results Abnormal [facility] Ketones, UA Negative Negative - 160(16) ++++ mg/dL [facility] Leukocytes, UA Trace Negative - 500+++ Clair/mcL [facility] Nitrite, UA Negative Negative - Positive [facility] pH, UA 7.5 5 - 9 [facility] Protein, UA Negative Negative - 1999(20) ++++ mg/dL [facility] Spec Grav, UA 1.015 1 - 1.03 [facility] Urobilinogen, UA 0.2 0.2 - 12 mg/dL [facility] Urinalysis macro (dipstick) panel (U)on 07-18-2024 Bilirubin, UA Negative Negative - 4(70) +++ mg/dL [facility] Blood, UA Negative Negative - 50 Ulises/mcL [facility] Clarity, UA Clear [facility] Color, UA Yellow [facility] Glucose, UA Negative Negative - 1999(110) ++++ mg/dL [facility] Interpretation and review of laboratory results Normal [facility] Ketones, UA Negative Negative - 160(16) ++++ mg/dL [facility] Leukocytes, UA Negative Negative - 500+++ Clair/mcL [facility] Nitrite, UA Negative Negative - Positive [facility] pH, UA 7 5 - 9 [facility] Protein, UA Negative Negative - 1999(20) ++++ mg/dL [facility] Spec Grav, UA 1.025 1 - 1.03 [facility] Urobilinogen, UA 0.2 0.2 - 12 mg/dL [facility] ALL CBC WITH AUTO DIFFon BASOPHILS ABSOLUTE AUTO 0 [facility] Basophils/100 WBC (Bld) 0.2 % 0.2 - 2.0 % [facility] Eosinophils/100 WBC (Bld) 0.9 % 0.9 - 7.0 % [facility] Erythrocyte distribution width (RBC) [Ratio] 13 % 11.0 - 15.0 % [facility] Hematocrit (Bld) [Volume fraction] 32.2 % Low 36.0 - 48.0 % [facility] Hemoglobin (Bld) [Mass/Vol] 10.9 g/dL Low 12.0 - 16.0 g/dL [facility] IMMATURE GRANULOCYTES ABS AUTO 0.13 High [facility] Immature granulocytes/100 WBC (Bld) 1.4 % High 0.0 - 0.5 % [facility] Interpretation and review of laboratory results Abnormal [facility] LYMPHOCYTES ABSOLUTE AUTO 1.4 [facility] Lymphocytes/100 WBC (Bld) 15.4 % Low 20.5 - 60.0 % [facility] MCH (RBC) [Entitic mass] 32.7 pg 26.7 - 34.0 pg [facility] MCHC (RBC) [Mass/Vol] 33.9 g/dL 29.9 - 35.2 g/dL [facility] MCV (RBC) [Entitic vol] 96.7 fL 81.0 - 99.0 fL [facility] MONOCYTES ABSOLUTE AUTO 0.5 [facility] Monocytes/100 WBC (Bld) 4.8 % 1.7 - 12.0 % [facility] NEUTROPHILS ABSOLUTE AUTO 7.2 High [facility] Neutrophils/100 WBC (Bld) 77.3 % High 43.0 - 75.0 % [facility] Platelet mean volume (Bld) [Entitic vol] 9.2 fL Low 9.5 - 13.5 fL [facility] TBH EO # 0.1 [facility] TBH PLT 229 [facility] TB RBC 3.33 Low [facility] TB WBC 9.3 [facility] Urinalysis macro (dipstick) panel (U)on 06-30-2024 Bilirubin, UA Negative Negative - 4(70) +++ mg/dL [facility] Blood, UA Negative Negative - 50 Ulises/mcL [facility] Clarity, UA Clear [facility] Color, UA Yellow [facility] Glucose, UA Negative Negative - 1999(110) ++++ mg/dL [facility] Interpretation and review of laboratory results Abnormal [facility] Ketones, UA Negative Negative - 160(16) ++++ mg/dL [facility] Leukocytes, UA Trace Negative - 500+++ Clair/mcL [facility] Nitrite, UA Negative Negative - Positive [facility] pH, UA 8.5 5 - 9 [facility] Protein, UA Positive Negative - 1999(20) ++++ mg/dL [facility] Comment on above: trace Spec Grav, UA 1.015 1 - 1.03 [facility] Urobilinogen, UA 0.2 0.2 - 12 mg/dL [facility] Basophils/100 WBC Manual cnt (Bld)on 06-25-2024 Basophils/100 WBC (Bld) Basophils/100 leukocytes in Blood by Manual count Low 0.2-2.0 [facility] Eosinophils/100 WBC Manual c nt (Bld)on 06-25-2024 Eosinophils/100 WBC (Bld) Eosinophils/100 leukocytes in Blood by Manual count 0.9-7.0 [facility] Erythrocyte distribution wid th Auto (RBC) [Ratio]on 06-25-2024 Erythrocyte distribution width (RBC) [Ratio] Erythrocyte distribution width [Ratio] by Automated count 11.0-15.0 [facility] Estimated glomerular filtrat ion rate (GFR) non- Americanon 06-25-2024 GFR/1.73 sq M.predicted among non-blacks MDRD (S/P/Bld) [Vol rate/Area] Estimated glomerular filtration rate (GFR) non- >=60 mL/min/1.73 m 2 [facility] Hematocrit Auto (Bld) [Volum e fraction]on 06-25-2024 Hematocrit (Bld) [Volume fraction] Hematocrit [Volume Fraction] of Blood by Automated count Low 36.0-48.0 [facility] Hemoglobin [Mass/volume] in Bloodon 06-25-2024 Hemoglobin (Bld) [Mass/Vol] Hemoglobin [Mass/volume] in Blood Low 12.0-16.0 [facility] Laboratory - Chemistry and C hemistry - challengeon 06-25-2024 Calcium [Mass/Vol] 8.2 mg/dL Low 8.5-10.1 [facility] Chloride [Moles/Vol] 99 mmol/L 98-107 [facility] CO2 [Moles/Vol] 21.2 mmol/L 21.0-32.0 [facility] Creatinine [Mass/Vol] 0.89 mg/dL 0.55-1.02 [facility] GFR/1.73 sq M.predicted MDRD (S/P/Bld) [Vol rate/Area] mL/min/{1.73_m2} >=60 mL/min/1.73 m 2 [facility] Glucose [Mass/Vol] 98 mg/dL 74-106 [facility] Potassium [Moles/Vol] 3.7 mmol/L 3.5-5.1 [facility] Sodium [Moles/Vol] 130 mmol/L Low 136-145 [facility] Urea nitrogen [Mass/Vol] 7.0 mg/dL 7.0-18.0 [facility] Urea nitrogen/Creatinine [Mass ratio] 7.9 mg/mg [facility] Bilirubin Ql (U) Negative NEGATIVE [facility] Glucose (U) [Mass/Vol] Negative NEGATIVE [facility] Ketones Ql (U) 15 mg/dL Abnormal NEGATIVE [facility] pH (U) 7.5 [pH] 5.0-9.0 [facility] Specific gravity (U) [Rel density] 1.015 1.005-1.025 [facility] Urobilinogen Qn (U) 1.0 {Ree'U}/dL 0.2-1.0 [facility] Laboratory - Hematology and Cell countson 06-25-2024 Band form neutrophils/100 WBC (Bld) 2.0 % 0-5 [facility] Lymphocytes/100 WBC (Bld) 2.0 % Low 20.5-60.0 [facility] Monocytes/100 WBC (Bld) 5.0 % 1.7-12.0 [facility] - Microbiology an d Antimicrobial susceptibilityon 06-25-2024 SARS-CoV-2 (COVID-19) RNA JUAN ANTONIO+probe Ql (Unsp spec) Negative NEGATIVE [facility] Comment on above: This test has [...] ationon 06-25-2024 Appearance (U) CLOUDY Abnormal CLEAR [facility] Color (U) DK YELLOW YELLOW [facility] Laboratory - Urinalysison Leukocyte esterase Test strip Ql (U) Negative NEGATIVE [facility] Nitrite Ql (U) Negative NEGATIVE [facility] Protein Ql (U) TRACE mg/dL NEG/TRACE [facility] Leukocytes [#/volume] correc leroy for nucleated erythrocytes in Blood by Automated counon 06-25-2024 WBC corrected for nucl RBC Auto (Bld) [#/Vol] Leukocytes [#/volume] corrected for nucleated erythrocytes in Blood by Automated coun 4.0-11.0 [facility] MCH Auto (RBC) [Entitic mass ]on 06-25-2024 MCH (RBC) [Entitic mass] MCH [Entitic mass] by Automated count 26.7-34.0 [facility] MCHC Auto (RBC) [Mass/Vol]on 06-25-2024 MCHC (RBC) [Mass/Vol] MCHC [Mass/volume] by Automated count 29.9-35.2 [facility] MCV Auto (RBC) [Entitic vol] on 06-25-2024 MCV (RBC) [Entitic vol] MCV [Entitic volume] by Automated count 81.0-99.0 [facility] No Panel Informationon 06-25 Absolute Basophils (Manual) 0.00 10 3/uL 0.00-0.10 [facility] Band Neutrophils # (Manual) 0.2 10 3/uL 0.0-0.3 [facility] Eosinophils # (Manual) 0.08 10 3/uL 0.00-0.70 [facility] Lymphocytes # (Manual) 0.16 10 3/uL Low 1.20-3.80 [facility] Monocytes # (Manual) 0.41 10 3/uL 0.30-0.80 [facility] Segmented Neutrophils # (Manual) 7.38 10 3/uL High 1.4-6.5 [facility] Urine Occult Blood Negative NEGATIVE [facility] Bedside Influenza Type A Antigen Positive Abnormal [facility] Comment on above: NOTE: Live attenuate d influenza vaccine viruses can cause apositive result for a rapid influenza diagnostic test ifadministered up to 7 days prior to rapid testing. Bedside Influenza Type B Antigen Negative [facility] Comment on above: Negative for Flu B p rotein antigen. Infection due to Flu Bcannot be ruled out. Flu B antigen in the sample may bebelow the detection limit of the test. Platelet mean volume Auto (B ld) [Entitic vol]on 06-25-2024 Platelet mean volume (Bld) [Entitic vol] Platelet mean volume [Entitic volume] in Blood by Automated count Low 9.5-13.5 [facility] Platelets Auto (Bld) [#/Vol] on 06-25-2024 Platelets (Bld) [#/Vol] Platelets [#/volume] in Blood by Automated count 150-450 [facility] RBC Auto (Bld) [#/Vol]on RBC (Bld) [#/Vol] Erythrocytes [#/volu me] in Blood by Automated count Low 4.20-5.40 [facility] Segmented neutrophils/100 WB C Manual cnt (Bld)on 06-25-2024 Segmented neutrophils/100 WBC (Bld) Manual blood segmented neutrophils/100 leukocytes High 43.0-75.0 [facility] Serum or plasma anion gap de terminationon 06-25-2024 Anion gap [Moles/Vol] Serum or plasma anion gap determination [facility] Urine Cultureon 06-25-2024 Bacteria identified Cx Nom (U) No Growth 2 Days PERFORMED BY: [facility] [address] [place] [address] PATHOLOGIST MANAGER CASH DANTE PALACIOS M.D. Normal [facility] Comment on above: Performed By: #### C UU #### [facility] [address] IGP,APTIMA HPV,AGE GDLNon AGE GDLN ACOG TESTING Note . [facility] Comment on above: TESTS RESULT FLAG UN ITS REF RANGE LAB Clinician Provided Cytology Information Source.............Cervix No. of containers..01 ThinPrep Vial Age Algo ACOG Annel... 30-65 01 FLAG LEGEND: L-Low Normal,H-High Normal,LL-Alert Low,HH-Alert High <-Panic Low,>-Panic High,A-Abnormal,AA-Critical Abnormal Performed at: 01 =G [facility] [address] Kathryn Maldonado MD, HPV APTIMA Negative Negative [facility] Comment on above: This nucleic acid am plification test detects fourteen high- risk HPV types (16,18,31,33,35,39,45,51,52,56,58,59,66,68) without differentiation. Performed at: =[facility] [id number] Tight Rope Walker: Kathryn Maldonado MD, Phone: [phone] Performed at: - [facility] [id number] Tight Rope Walker: Kathryn Maldonado MD, Phone: [phone] IGP, APTIMA HPV, RFX 16/18,45 Note . [facility] Comment on above: TESTS RESULT FLAG UN ITS REF RANGE LAB DIAGNOSIS: 02 NEGATIVE FOR INTRAEPITHELIAL LESION OR MALIGNANCY. Specimen adequacy: 02 Satisfactory for evaluation. Endocervical and/or squamous metaplastic cells (endocervical component) are present. Performed by: 02 Thao Shankar, Contact Lens Molder . 02 Note: Note 02 The Pap [...] <-Panic Low,>-Panic High,A-Abnormal,AA-Critical Abnormal Performed at: [address] [address] Kathryn Maldonado MD, BRUSH-SPATULA CERVIX [facility] RECURRENT VAGINITIS (HTRX)on 05-05-2024 ATOPOBIUM VAGINAE 0 [facility] ATOPOBIUM VAGINAE Not detected [facility] BVAB 2,3 (BACTERIAL VAGINOSIS ASSOCIATED BACTERIA 2, 3); MOBILUNCUS SPP 0 [facility] BVAB 2,3 (BACTERIAL VAGINOSIS ASSOCIATED BACTERIA 2, 3); MOBILUNCUS SPP Not detected [facility] JED ALBICANS, PARAPSILOSIS, TROPICALIS 0 [facility] JED ALBICANS, PARAPSILOSIS, TROPICALIS Not detected [facility] JED GLABRATA 0 [facility] JED GLABRATA Not detected [facility] JED KRUSEI 0 [facility] JED KRUSEI Not detected [facility] CHLAMYDIA TRACHOMATIS 0 [facility] CHLAMYDIA TRACHOMATIS Not detected [facility] GARDNERELLA VAGINALIS 0 [facility] GARDNERELLA VAGINALIS Not detected [facility] MEGASPHAERA (TYPES 1, 2) 0 [facility] MEGASPHAERA (TYPES 1, 2) Not detected [facility] MYCOPLASMA GENITALIUM 0 [facility] MYCOPLASMA GENITALIUM Not detected [facility] NEISSERIA GONORRHOEAE 0 [facility] NEISSERIA GONORRHOEAE Not detected [facility] TRICHOMONAS VAGINALIS 0 [facility] TRICHOMONAS VAGINALIS Not detected [facility] Urinalysis macro (dipstick) panel (U)on 05-03-2024 Bilirubin, UA Negative Negative - 4(70) +++ mg/dL [facility] Blood, UA Negative Negative - 50 Ulises/mcL [facility] Clarity, UA Clear [facility] Color, UA Yellow [facility] Glucose, UA Negative Negative - 1999(110) ++++ mg/dL [facility] Interpretation and review of laboratory results Normal [facility] Ketones, UA Negative Negative - 160(16) ++++ mg/dL [facility] Leukocytes, UA Negative Negative - 500+++ Clair/mcL [facility] Nitrite, UA Negative Negative - Positive [facility] pH, UA 0.5 5 - 9 [facility] Protein, UA Negative Negative - 1999(20) ++++ mg/dL [facility] Spec Grav, UA 1.025 1 - 1.03 [facility] Urobilinogen, UA 1.0 0.2 - 12 mg/dL [facility] Human papilloma virus 16+18+ 31+33+35+39+45+51+52+56+58+59+66+68 DNA [Presence] in Denis 05-02-2024 HPV 16+18+31+33+35+39+4 5+51+52+56+58+59+66 +68 DNA Probe+sig amp Ql (Cvx) Human papilloma virus 16+18+31+33+35+39+45+51+52+5 6+58+59+66+68 DNA [Presence] in Cer Negative [facility] Comment on above: This nucleic acid am plification test detects fourteen high- risk HPV types (16,18,31,33,35,39,45,51,52,56,58,59,66,68)without differentiation.Performed at: = - [facility] [id number] Director: Kathryn Maldonado MD, Phone: [phone] at: [facility] [id number] Director: Kathryn Maldonado MD, Phone: [phone] No Panel Informationon 05-02 HPV High Risk Other Comment Note . [facility] Comment on above: TESTS RESULT FLAG UN ITS REF RANGE LAB JESE GNOSIS: 02 NEGATIVE FOR INTRAEPITHELIAL LESION OR MALIGNANCY.Specimen adequacy: 02 Satisfactory for evaluation. Endocervical and/or squamous metaplastic cells (endocervical component) are present.Performed by: 02 Thao Shankar Contact Lens Molder. 02Note: Note 02 The Pap smear is [...] Low,>-Panic High,A-Abnormal,AA-Critical Abnormal --Performed at:02 WB [facility] [address] [address] Kathryn Maldonado MD, Reference Lab Test Patient Age Note . [facility] Comment on above: TESTS RESULT FLAG UN ITS REF RANGE LAB Clinician Provided Cytology Information Source.............Cervix No. of containers..01 ThinPrep VialAge Richie SANDERS Annel... 30-65 01 FLAG LEGEND: L-Low Normal,H-High Normal,LL-Alert Low,HH-Alert High <-Panic Low,>-Panic High,A-Abnormal,AA-Critical Abnormal --Performed at:01 =G [facility] [address] [place], [place] [address] Kathryn Maldonado MD, AFP, SERUM, OPEN SPINA BIFID Aon 05-01-2024 AFP MOM 1.18 . [facility] AFP VALUE 61.8 ng/mL . [facility] COMMENT: Comment . [facility] Comment on above: Cydney Rodriguez , Ph.D., [facility] Director References: Available Upon Request. Multiples Of Median Cutoffs For AFP Elevations Chiang 2.5 Black 2.8 IDD 2.0 Twins 4.5 Abbreviation Definitions IDD - Insulin Dep Diabetes OSBR - Open Spina Bifida Risk For further inquiries contact [employer] [facility] [facility] at [phone]. This test was developed and its performance characteristics determined by [facility]. It has not been cleared or approved by the Food and Drug Administration. Performed at: [facility] [address], [place] [id number] Tight Rope Walker: Marissa Kovacs [facility], Phone: [phone] GEST. AGE ON COLLECTION DATE 19.0 . weeks [facility] GESTAT. AGE BASED ON LMP . [facility] Comment on above: Recalculations are n ot recommended when gestational dating by LMP and ultrasound are within 10 days. INSULIN DEP DIABETES No . [facility] INTERPRETATION Comment . [facility] Comment on above: Interpretation: Scre [...] Customer Services to discuss available options. The [employer] recommends amniocentesis be offered to women age 35 and older. [age]ANA [age] [facility] MULTIPLE GESTATION No . [facility] OSBR RISK 1 IN 6916 . [facility] RACE . [facility] RESULTS Report . [facility] TEST RESULTS: Negative . [facility] WEIGHT 135 . lbs [facility] N N LMP [id number] 3 15 N 1 Y 135 N N N N N White/ [facility] Alpha-fetoprotein (AFP) paige urement (wqssiets-wf-jhdsfj)on 04-29-2024 AFP [MoM] Alpha-fetoprotein (A FP) measurement (bnnbtwot-pp-wtlvmd) . [facility] Assess gestational ageon Gestational age Assess gestational age . [facility] Estimation of maternal age-s pecific risk of Down syndrome birthon 04-29-2024 Age [Time] Estimation of matern al age-specific risk of Down syndrome . [facility] Insulin dependent diabetes m ellitus detectionon 04-29-2024 Insulin dependent diabetes mellitus Ql Insulin dependent diabetes mellitus detection . [facility] Interpretation of serum or p lasma second trimester quad maternal screen (narrative reon 04-29-2024 Second trimester quad maternal screen Darshan [Interp] Interpretation of serum or plasma second trimester quad maternal screen (narrative re . [facility] Comment on above: Interpretation: Scre en [...] 04-29 AFP Triple Screen Comment Comment . [facility] Comment on above: Cydney Rodriguez , Ph.D., DABCCDirectorReferences: Available Upon Request.Multiples Of Median Cutoffs For AFP ElevationsSingleton 2.5 Black 2.8IDD 2.0 Twins 4.5 Abbreviation DefinitionsIDD - Insulin Dep DiabetesOSBR - Open Spina Bifida RiskFor further inquiries contact [facility] [facility] at [phone].This test was developed and its performance characteristicsdetermined by [facility]. It has not been cleared or approvedby the Food and Drug Administration.Performed at: [facility] [id number], [place] [id number] Director: Marissa Kovacs [facility], Phone: [phone] Alpha Fetoprotein Results Received Report . [facility] Gestational Age Calculation Method LMP . [facility] Comment on above: Recalculations are n ot recommended when gestational datingby LMP and ultrasound are within 10 days. Maternal Quad Test Risk 6916 . [facility] Maternal Race . [facility] Multiple No . [facility] Serum or plasma ukfca-6-sflc protein measurement (mass/volume)on 04-29-2024 AFP [Mass/Vol] Serum or plasma frpbv-3-snaxdruychd measurement (mass/volume) . [facility] BOX TEST SENT OUTon BOX TEST SENT OUT Y [facility] UNITY BOX [facility] ALL CBC WITH AUTO DIFFon BASOPHILS ABSOLUTE AUTO 0.0 [facility] Basophils/100 WBC (Bld) 0.5 % 0.2 - 2.0 % [facility] Eosinophils/100 WBC (Bld) 0.9 % 0.9 - 7.0 % [facility] Erythrocyte distribution width (RBC) [Ratio] 11.9 % 11.0 - 15.0 % [facility] Hematocrit (Bld) [Volume fraction] 37.3 % 36.0 - 48.0 % [facility] Hemoglobin (Bld) [Mass/Vol] 12.7 g/dL 12.0 - 16.0 g/dL [facility] IMMATURE GRANULOCYTES ABS AUTO 0.02 [facility] Immature granulocytes/100 WBC (Bld) 0.3 % 0.0 - 0.5 % [facility] Interpretation and review of laboratory results Abnormal [facility] LYMPHOCYTES ABSOLUTE AUTO 1.8 [facility] Lymphocytes/100 WBC (Bld) 27.4 % 20.5 - 60.0 % [facility] MCH (RBC) [Entitic mass] 32.2 pg 26.7 - 34.0 pg [facility] MCHC (RBC) [Mass/Vol] 34.0 g/dL 29.9 - 35.2 g/dL [facility] MCV (RBC) [Entitic vol] 94.4 fL 81.0 - 99.0 fL [facility] MONOCYTES ABSOLUTE AUTO 0.3 [facility] Monocytes/100 WBC (Bld) 5.1 % 1.7 - 12.0 % [facility] NEUTROPHILS ABSOLUTE AUTO 4.4 [facility] Neutrophils/100 WBC (Bld) 65.8 % 43.0 - 75.0 % [facility] Platelet mean volume (Bld) [Entitic vol] 9.4 fL Low 9.5 - 13.5 fL [facility] EO # 0.1 [facility] PLT 215 [facility] RBC 3.95 Low [facility] WBC 6.6 [facility] HCG ( test) Ql (U)o n 02-12-2024 Interpretation and review of laboratory results Abnormal [facility] Preg Test, Ur Positive [facility] Urinalysis macro (dipstick) panel (U)on 02-12-2024 Bilirubin, UA Negative Negative - 4(70) +++ mg/dL [facility] Blood, UA Negative Negative - 50 Ulises/mcL [facility] Clarity, UA Clear [facility] Color, UA Yellow [facility] Glucose, UA Negative Negative - 1999(110) ++++ mg/dL [facility] Interpretation and review of laboratory results Normal [facility] Ketones, UA Negative Negative - 160(16) ++++ mg/dL [facility] Leukocytes, UA Negative Negative - 500+++ Clair/mcL [facility] Nitrite, UA Negative Negative - Positive [facility] pH, UA 6.5 5 - 9 [facility] Protein, UA Negative Negative - 1999(20) ++++ mg/dL [facility] Spec Grav, UA 1.015 1 - 1.03 [facility] Urobilinogen, UA 1.0 0.2 - 12 mg/dL [facility] No Panel Informationon 11-29 Human Chorionic Gonadotropin, Quant 2 mIU/mL [facility] Comment on above: 5-50 0.2-1 DMHA47-45 0 1-2 ILRRE370-3,000 2-3 UYBPU169-76,000 3-4 WEEKS1,000-50,000 4-5 WEEKS10,000-100,000 5-6 WEEKS15,000-200,000 6-8 WEEKS10,000-100,000 2-3 MONTHS No Panel Informationon 11-22 Human Chorionic Gonadotropin, Quant 3 mIU/mL [facility] Comment on above: 5-50 0.2-1 HGIZ10-52 0 1-2 ESJNE165-7,000 2-3 PCTGL248-28,000 3-4 WEEKS1,000-50,000 4-5 WEEKS10,000-100,000 5-6 WEEKS15,000-200,000 6-8 WEEKS10,000-100,000 2-3 MONTHS No Panel Informationon 11-16 Human Chorionic Gonadotropin, Quant 6 mIU/mL [facility] Comment on above: 5-50 0.2-1 YLBQ07-46 0 1-2 GBSUQ405-3,000 2-3 HNEYY932-94,000 3-4 WEEKS1,000-50,000 4-5 WEEKS10,000-100,000 5-6 WEEKS15,000-200,000 6-8 WEEKS10,000-100,000 2-3 MONTHS No Panel Informationon 11-08 Human Chorionic Gonadotropin, Quant 27 mIU/mL [facility] Comment on above: 5-50 0.2-1 GFHF53-41 0 1-2 SGZDX601-9,000 2-3 PNCBF651-96,000 3-4 WEEKS1,000-50,000 4-5 WEEKS10,000-100,000 5-6 WEEKS15,000-200,000 6-8 WEEKS10,000-100,000 2-3 MONTHS Basophils Auto (Bld) [#/Vol] on 10-23-2023 Basophils (Bld) [#/Vol] 0.0 10 3/uL 0.0-0.1 [facility] Basophils/100 WBC Auto (Bld) on 10-23-2023 Basophils/100 WBC (Bld) 0.8 % 0.2-2.0 [facility] Eosinophils/100 WBC Auto (Bl d)on 10-23-2023 Eosinophils/100 WBC (Bld) 1.4 % 0.9-7.0 [facility] Erythrocyte distribution wid th Auto (RBC) [Ratio]on 10-23-2023 Erythrocyte distribution width (RBC) [Ratio] 11.9 % 11.0-15.0 [facility] Hematocrit Auto (Bld) [Volum e fraction]on 10-23-2023 Hematocrit (Bld) [Volume fraction] 36.0 % 36.0-48.0 [facility] Hemoglobin [Mass/volume] in Bloodon 10-23-2023 Hemoglobin (Bld) [Mass/Vol] 11.8 g/dL 12.0-16.0 [facility] Krzysztof 10-23-2023 L Specimen: [id number] R eceived: 10/26/23 Status: MAIA Newell Num: [id number] Spec Type: Surgical Subm Dr: Scooby Vega Tissues: A Products of Conception - Spontaneous or Missed (POC) Procedures: HE/3, Gross/Micro L4 Age/ Patient Sex Location Account Attending Physician GlennRaphael Edith 37/F [facility] [id number] Scooby Vega SPEC NUM: [id number] RECD: 10/26/23 STATUS: MAIA NEWELL NUM: [id number] JANIE: 10/23/[address]: Scooby Vega ENTERED: 10/26/[address] [facility] DR: Héctor,Lab SPEC TYPE: Surgical DEPT: [...] cm possible area of villous tissue identified. Extr[employer] Utility Worker sections to include the possible villous tissue are submitted in A1?A3. Clinical history: Missed CPT Codes 70010 -------- -------- Specimen: [id number] Received: 10/26/23-1306 Status: MAIA Newell Num: [id number] Spec Type: Surgical Subm Dr: Scooby Vega Tissues: A Products of Conception - Spontaneous or Missed (POC) Procedures: HE/3, Gross/Micro L4 -------- Patient: Raphael Elizabeth [id number] (Continued) -------- Signed (signature on file) Dante Palacios MD 10/27/23 1511 Normal [facility] - Hematology and Cell countson 10-23-2023 Immature granulocytes/100 WBC (Bld) 0.2 % 0.0-0.5 [facility] Leukocytes [#/volume] correc leroy for nucleated erythrocytes in Blood by Automated counon 10-23-2023 WBC corrected for nucl RBC Auto (Bld) [#/Vol] 5.1 10 3/uL 4.0-11.0 [facility] Lymphocytes Auto (Bld) [#/Vo l]on 10-23-2023 Lymphocytes (Bld) [#/Vol] 1.7 10 3/uL 1.2-3.8 [facility] Lymphocytes/100 WBC Auto (Bl d)on 10-23-2023 Lymphocytes/100 WBC (Bld) 32.8 % 20.5-60.0 [facility] MCH Auto (RBC) [Entitic mass ]on 10-23-2023 MCH (RBC) [Entitic mass] 31.1 pg 26.7-34.0 [facility] MCHC Auto (RBC) [Mass/Vol]on 10-23-2023 MCHC (RBC) [Mass/Vol] 32.8 g/dL 29.9-35.2 [facility] MCV Auto (RBC) [Entitic vol] on 10-23-2023 MCV (RBC) [Entitic vol] 95.0 fL 81.0-99.0 [facility] Monocytes Auto (Bld) [#/Vol] on 10-23-2023 Monocytes (Bld) [#/Vol] 0.3 10 3/uL 0.3-0.8 [facility] Monocytes/100 WBC Auto (Bld) on 10-23-2023 Monocytes/100 WBC (Bld) 5.5 % 1.7-12.0 [facility] Neutrophils Auto (Bld) [#/Vo l]on 10-23-2023 Neutrophils (Bld) [#/Vol] 3.0 10 3/uL 1.4-6.5 [facility] Neutrophils/100 WBC Auto (Bl d)on 10-23-2023 Neutrophils/100 WBC (Bld) 59.3 % 43.0-75.0 [facility] No Panel Informationon 10-22 Eosinophils # (Auto) 0.1 10 3/uL 0.0-0.7 [facility] Immature Granulocyte # (Auto) 0.01 10 3/uL 0.00-0.03 [facility] Platelet mean volume Auto (B ld) [Entitic vol]on 10-23-2023 Platelet mean volume (Bld) [Entitic vol] 9.0 fL 9.5-13.5 [facility] Platelets Auto (Bld) [#/Vol] on 10-23-2023 Platelets (Bld) [#/Vol] 182 10 3/uL 150-450 [facility] RBC Auto (Bld) [#/Vol]on RBC (Bld) [#/Vol] 3.79 10 6/uL 4.20-5.40 [facility] No Panel Informationon 10-11 Human Chorionic Gonadotropin, Quant 27646 mIU/mL [facility] Comment on above: 5-50 0.2-1 CWHI91-11 0 1-2 RACBZ326-2,000 2-3 VHHVQ536-43,000 3-4 WEEKS1,000-50,000 4-5 WEEKS10,000-100,000 5-6 WEEKS15,000-200,000 6-8 WEEKS10,000-100,000 2-3 MONTHS No Panel Informationon 10-06 Human Chorionic Gonadotropin, Quant 29086 mIU/mL [facility] Comment on above: 5-50 0.2-1 GOYP47-69 0 1-2 DAAJS611-2,000 2-3 KSSYC406-96,000 3-4 WEEKS1,000-50,000 4-5 WEEKS10,000-100,000 5-6 WEEKS15,000-200,000 6-8 WEEKS10,000-100,000 2-3 MONTHS No Panel Informationon 10-04 Human Chorionic Gonadotropin, Quant 07532 mIU/mL [facility] Comment on above: 5-50 0.2-1 AGCR73-62 0 1-2 WAGSU104-7,000 2-3 ZWRFH882-90,000 3-4 WEEKS1,000-50,000 4-5 WEEKS10,000-100,000 5-6 WEEKS15,000-200,000 6-8 WEEKS10,000-100,000 2-3 MONTHS PAP ACOG PANEL 2: 30 to 65on 03-11-2022 . . Normal [facility] Comment on above: Result Comment: Perf ormed at: WB Performed By: #### [id number] #### [facility] [address] [place] [address] Dr. Danni Jacobs Age Gdln ACOG Testing 30-[address] [facility] Comment on above: Performed By: #### [id number] #### [facility] [address] [address] [address] Danni Jacobs DIAGNOSIS: Comment Normal [facility] Comment on above: Result Comment: NEGA TIVE FOR INTRAEPITHELIAL LESION OR MALIGNANCY. THIS SPECIMEN WAS RESCREENED PART OF OUR FIRE DEPARTMENT BATTALION CHIEF PROGRAM. Performed at: WB Performed By: #### [id number] #### [facility] [address] [address] [address] Danni Jacobs HPV Aptima Negative Normal Negative [facility] Comment on above: Result Comment: This nucleic acid amplification test detects fourteen high-risk HPV types (16,18,31,33,35,39,45,51,52,56,58,59,66,68) without differentiation. Performed at: =G Performed By: #### [id number] #### [facility] [address] [place] [address] Dr. Danni Jacobs Methodology: Comment Normal [facility] Comment on above: Result Comment: This liquid based ThinPrep(R) pap test was screened with the use of an image guided system. Performed at: WB Performed By: #### [id number] #### [facility] [address] [place] [address] Dr. Danni Jacobs Note: Comment [facility] Comment on above: Result Comment: The Pap smear is a screening test designed to aid in the detection of premalignant and malignant conditions of the uterine cervix. It is not a diagnostic procedure and should not be used as the sole means of detecting cervical cancer. Both false-positive and false-negative reports do occur. . Performed at: WB Performed By: #### [id number] #### [facility] [address] [address] [address] Danni Jacobs Performed by: Comment Normal [facility] Comment on above: Result Comment: Rocky [place] Contact Lens Molder (ASCP) Performed at: WB Performed By: #### [id number] #### [facility] [address] [place] [address] Dr. Danni Jacobs QC reviewed by: Comment Normal [facility] Comment on above: Result Comment: Betzaida Ge, Supervisory Contact Lens Molder (ASCP) Performed at: WB Performed By: #### [id number] #### [facility] [address] [address] [address] Danni Jacobs Specimen adequacy: Comment Normal [facility] Comment on above: Result Comment: Sati sfactory for evaluation. Endocervical and/or squamous metaplastic cells (endocervical component) are present. Performed at: WB Performed By: #### 4 [id number] #### [facility] [address] [address] [address] Danni Jacobs GLUCOSE BLOODon 04-22-2021 Glucose [Mass/Vol] 99 mg/dL Normal 74-106 [facility] Comment on above: Performed By: #### G YOSEPH, LIPID #### [facility] Laboratory [address] [place] [address] Dr. Danni Jacobs LIPID PROFILEon 04-22-2021 CHOL-HDL RATIO NORM SEE BELOW Normal [facility] Comment on above: Result Comment: 3.3 - 4.4 LOW RISK 4.4 - 7.1 AVERAGE RISK 7.1 - 11.0 MODERATE RISK >11.0 HIGH RISK Performed By: #### G YOSEPH, LIPID #### [facility] [address] [place] [address] Dr. Danni Jacobs Cholesterol [Mass/Vol] 157 mg/dL Normal <=200 [facility] Comment on above: Performed By: #### G YOSEPH, LIPID #### [facility] [address] [address] [address] Danni Jacobs Cholesterol in HDL [Mass/Vol] 74 mg/dL Normal [facility] Comment on above: Performed By: #### G YOSEPH, LIPID #### [facility] [address] [address] [address] Danni Jacobs Cholesterol in LDL [Mass/Vol] 71.2 mg/dL Normal [facility] Comment on above: Performed By: #### G YOSEPH, LIPID #### [facility] [address] [place] [address] Dr. Danni Jacobs Cholesterol.total/C holesterol in HDL [Mass ratio] 2.1 {ratio} Normal [facility] Comment on above: Performed By: #### G YOSEPH, LIPID #### [facility] [address] [address] [address] Danni Jacobs HDL NORMAL > or = 60 mg/dl - LO W CARDIOVASCULAR RISK <40 mg/dl - HIGH CARDIOVASCULAR RISK Normal [facility] Comment on above: Performed By: #### G YOSEPH, LIPID #### [facility] [address] [address] [address] Danni Jacobs LDL CALC NORMAL SEE BELOW Normal [facility] Comment on above: Result Comment: <100 mg/dl OPTIMAL 100 - 129 mg/dl NEAR OR ABOVE OPTIMAL 130 - 159 mg/dl BORDERLINE HIGH 160 - 189 mg/dl HIGH >190 mg/dl VERY HIGH Performed By: #### G YOSEPH, LIPID #### [facility] [address] [address] [address] Danni Jacobs Triglyceride [Mass/Vol] 59 mg/dL Normal <=150 [facility] Comment on above: Performed By: #### G YOSEPH, LIPID #### [facility] [address] [address] [address] Danni Jacobs VLDL CALC 11.8 mg/dL Normal [facility] Comment on above: Performed By: #### G YOSEPH, LIPID #### [facility] [address] [address] [address] Danni Jacobs Vital Signs Date Time Vital Sign Value Performing Clinician Philippe mera 08-18-2024 09:28-0500 Body mass index (BMI) [Ratio] 23.62 kg/m2 [employer] Work Phone: [facility] 08-18-2024 09:28-0500 Body weight 68.4 kg [employer] Work Phone: [facility] 08-18-2024 09:28-0500 Diastolic blood pressure 72 mm[Hg] [employer] Work Phone: [facility] 08-18-2024 09:28-0500 Systolic blood pressure 110 mm[Hg] Scooby Gary DO Work Phone: [facility] 08-01-2024 13:55-0500 Body mass index (BMI) [Ratio] 22.87 kg/m2 Scooby Gary DO Work Phone: [facility] 08-01-2024 13:55-0500 Body weight 66.22 kg Scooby Gary DO Work Phone: [facility] 08-01-2024 13:55-0500 Diastolic blood pressure 74 mm[Hg] Scooby Gary DO Work Phone: [facility] 08-01-2024 13:55-0500 Systolic blood pressure 116 mm[Hg] Scooby Gary DO Work Phone: [facility] 07-18-2024 15:05-0500 Body mass index (BMI) [Ratio] 22.84 kg/m2 Scooby Gary DO Work Phone: [facility] 07-18-2024 15:05-0500 Body weight 66.13 kg Scooby Gary DO Work Phone: [facility] 07-18-2024 15:05-0500 Diastolic blood pressure 70 mm[Hg] Scooby Gary DO Work Phone: [facility] 07-18-2024 15:05-0500 Systolic blood pressure 118 mm[Hg] Scooby Gary DO Work Phone: [facility] 06-30-2024 12:01-0500 Body mass index (BMI) [Ratio] 22.26 kg/m2 Scooby Gary DO Work Phone: [facility] 06-30-2024 12:01-0500 Body weight 64.47 kg Scooby Gary DO Work Phone: [facility] 06-30-2024 12:01-0500 Diastolic blood pressure 70 mm[Hg] Scooby Gary DO Work Phone: [facility] 06-30-2024 12:01-0500 Systolic blood pressure 110 mm[Hg] Scooby Gary DO Work Phone: [facility] 06-02-2024 10:45-0500 Body mass index (BMI) [Ratio] 21.9 kg/m2 Scooby Gary DO Work Phone: [facility] 06-02-2024 10:45-0500 Body weight 63.41 kg Scooby Gary DO Work Phone: [facility] 06-02-2024 10:45-0500 Diastolic blood pressure 72 mm[Hg] Scooby Gary DO Work Phone: [facility] 06-02-2024 10:45-0500 Systolic blood pressure 116 mm[Hg] Scooby Gary DO Work Phone: [facility] 05-02-2024 16:20-0500 Body mass index (BMI) [Ratio] 21.61 kg/m2 Emely COBB Work Phone: [facility] 05-02-2024 16:20-0500 Body weight 62.6 kg Emely Bola PA Work Phone: [facility] 05-02-2024 16:20-0500 Diastolic blood pressure 68 mm[Hg] Emely Bola PA Work Phone: [facility] 05-02-2024 16:20-0500 Systolic blood pressure 120 mm[Hg] Emely Bola PA Work Phone: [facility] 04-29-2024 11:40-0500 Body weight Jen Granados MD Work Phone: [facility] 04-04-2024 14:55-0400 Body mass index (BMI) [Ratio] 21.27 kg/m2 Scooby Gary DO Work Phone: [facility] 04-04-2024 14:55-0400 Body weight 61.6 kg Scooby Gary DO Work Phone: [facility] 04-04-2024 14:55-0400 Diastolic blood pressure 70 mm[Hg] Scooby Gary DO Work Phone: [facility] 04-04-2024 14:55-0400 Systolic blood pressure 116 mm[Hg] Scooby Gary DO Work Phone: [facility] 03-07-2024 10:47-0400 Body mass index (BMI) [Ratio] 20.07 kg/m2 Scooby Gary DO Work Phone: [facility] 03-07-2024 10:47-0400 Body weight 58.12 kg Scooby Gary DO Work Phone: [facility] 03-07-2024 10:47-0400 Diastolic blood pressure 68 mm[Hg] Scooby Gary DO Work Phone: [facility] 03-07-2024 10:47-0400 Systolic blood pressure 114 mm[Hg] Scooby Gary DO Work Phone: [facility] 12-01-2023 16:10-0400 Body height 170.18 cm Scooby Gary Work Phone: [facility] 12-01-2023 16:10-0400 Body mass index (BMI) [Ratio] 19.5 kg/m2 Scooby Gary Work Phone: [facility] 12-01-2023 16:10-0400 Body weight 56.69 kg Scooby Gary Work Phone: [facility] 12-01-2023 16:10-0400 Diastolic blood pressure 78 mm[Hg] Scooby Gary Work Phone: [facility] 12-01-2023 16:10-0400 Systolic blood pressure 112 mm[Hg] Scooby Gary Work Phone: [facility] Encounters Encounter Date Encounter Type Care Provider Facility Start: 08-18-2024 End: 08-18-2024 Bamboo flowsheet Scooby Gary DO Work Phone: [facility] Start: 08-18-2024 End: 08-18-2024 Bamboo flowsheet Scooby Gary DO Work Phone: [facility] Start: 08-18-2024 End: 08-18-2024 flow sheet Scooby Gary DO Work Phone: [facility] Comment on above: Third trimester preg gali; 34 weeks gestation of ; Multigravida of advanced maternal age in third trimester Start: 08-12-2024 End: 08-12-2024 Clinisync Result Encounter [...] 06-25-2024 ambulatory Jen Granados MD Work Phone: [facility] Work Phone: Start: 06-25-2024 End: 06-25-2024 Departed Referred Jen Granados MD Work Phone: [facility] Start: 06-25-2024 Non-patient / Non-visit Jen Granados MD [facility] Phone[facility] Work Phone: Start: 06-02-2024 End: 06-02-2024 Bamboo flowsheet Scooby Gary DO Work Phone: [facility] Start: 06-02-2024 End: 06-02-2024 Bamboo flowsheet Scooby Gary DO Work Phone: [facility] Start: 06-02-2024 End: 06-02-2024 ambulatory SCOOBY GARY Not Available Start: 06-02-2024 End: 06-02-2024 flow sheet Scooby Gary DO Work Phone: [facility] Comment on above: Second trimester pre gnancy; 23 weeks gestation of ; with normal glucose tolerance test (GTT); Diabetes mellitus screening; Gestational diabetes mellitus (GDM), antepartum, gestational diabetes method of control unspecified; Elevated glucose tolerance test Start: 05-02-2024 Non-patient / Non-visit Jen Granados MD Work Phone: [facility] Work Phone: Start: 05-02-2024 End: 05-02-2024 ambulatory EMELY HUNTER Not Available Start: 05-02-2024 End: 05-02-2024 Patient encounter procedure Emely COBB Work Phone: [facility] Work Phone: Start: 05-02-2024 End: 05-02-2024 flow sheet Emely COBB Work Phone: [facility] Comment on above: Well woman exam with routine gynecological exam; Second trimester ; 19 weeks gestation of ; Vaginal discharge; STD exposure; Screening, , for anatomic survey Start: 05-02-2024 End: 05-02-2024 Bamboo flowsheet Emely COBB Work Phone: [facility] Start: 05-02-2024 End: 05-10-2024 Bamboo flowsheet Emely COBB Work Phone: [facility] Start: 05-02-2024 End: 05-10-2024 Clinisync [...] / Non-visit Jen Granados MD Work Phone: [facility] Work Phone: Start: 04-04-2024 End: [...] [facility] Start: 04-04-2024 End: 04-04-[address] [facility] Start: 04-01-2024 End: 04-01-2024 Bamboo [...] CI PT Start: 02-08-2024 End: 02-08-[address] [facility] Start: 02-08-[address] [facility] Start: 12-01-2023 End: 12-01-2023 ambulatory Scooby Gary Work Phone: [facility] Work Phone: Start: 12-01-2023 End: 12-01-2023 Patient encounter procedure Scooby Gary Work Phone: [facility] Work Phone: Start: 11-30-2023 Non-patient / Non-visit Scooby Gary Work Phone: [facility] Work Phone: Start: 11-23-2023 Non-patient / Non-visit Scooby Gary Work Phone: [facility] Work Phone: Start: 11-17-2023 Non-patient / Non-visit Scooby Gary Work Phone: [facility] Work Phone: Start: 11-09-2023 Non-patient / Non-visit Scooby Gary Work Phone: [facility] Work Phone: Start: 11-09-2023 End: 11-09-2023 ambulatory EMELY TOUREEY Not Available Start: 10-23-2023 End: 10-23-2023 ambulatory Scooby Gary [facility] Work Phone: Start: 10-23-2023 End: 10-23-2023 Departed Referred Scoobyvidal Fragosoo Work Phone: [facility] Start: 10-23-2023 Non-patient / Non-visit Scooby Gary Work Phone: [facility] Work Phone: Start: 10-12-2023 Non-patient / Non-visit Scooby Gary Work Phone: [facility] Work Phone: Start: 10-07-2023 Non-patient / Non-visit Scooby Gary Work Phone: [facility] Work Phone: Start: 10-05-2023 Non-patient / Non-visit Scooby Gary Work Phone: [facility] Work Phone: Start: 03-03-2022 End: 03-03-[address] SCOOBY VEAG Facility:[facility] Start: 04-28-2021 Encounter for genera l adult medical examination without abnormal findings DR DALTON LOGAN [facility] Start: 04-22-2021 End: 04-23-[address] DALTON LOGAN Facility:[facility] Start: 04-22-2021 End: 04-23-2021 Encounter for general adult medical examination without abnormal findings DR DALTON LOGAN Facility:[facility] Procedures Date Procedure Procedure Detail Performing Clinician Start: 08-18-2024 Urnls dip stick/tabl et rgnt non-auto w/o micrscp Scooby Gary DO Work Phone: Start: 08-12-2024 US OB BPP W NON-STRESS [...] 02-26-2024 TB BOX TEST SENT OUT C orey Gary DO Work Phone: Start: 02-16-2024 ALL CBC WITH AUTO DIFF Scooby Gary DO Work Phone: Start: 02-12-2024 End: 02-12-2024 Urnls dip stick/tablet rgnt non-auto w/o micrscp Scooby Gary DO Work Phone: Plan of Treatment Date Care Activity Detail Author Start: 09-12-2024 End: 09-12-2024 Patient encounter procedure 09/12/2024 9:00 AM EDT Routine [facility] [address] [place] [address] Scooby Vega, DO [address] [place] [address] [facility] Start: 09-05-2024 End: 09-05-2024 Patient encounter procedure 09/05/2024 1:30 PM EDT Routine [facility] [address] [facility] [place] [address] Scooby Vega, DO [address] [place] [address] [facility] Start: 08-24-2024 End: 08-24-2024 Patient encounter procedure 08/24/2024 1:20 PM EST Routine [facility] [address] [place] [id number] Scooby Vega, DO [address] [place] [address] [facility] Start: 08-18-2024 End: 08-18-2025 US for US OB follow up transabdominal approach Imaging Routine Multigravida of advanced maternal age in third trimester Expected: 08/18/2024, Expires: 08/18/2025 [facility] Work Phone: Comment on above: Expected: 08/18/2024 , Expires: 08/18/2025 Start: 08-18-2024 End: 08-18-2024 Patient encounter procedure 08/18/2024 9:20 AM EST Routine [facility] [address] [place] [phone] Scooby Vega, DO [address] [place] [address] [facility] Start: 08-01-2024 End: 08-01-2024 Patient encounter procedure 08/01/2024 1:20 PM EST Routine [facility] [address] [facility] [address] [place] [address] Scooby Vega, DO [address] [place] [address] [facility] Start: 07-18-2024 End: 07-18-2024 Patient encounter procedure 07/18/2024 2:30 PM EST Routine [facility] [address] [facility] [place] [address] Scooby Vega, DO [address] [place] [address] [facility] Start: 07-18-2024 End: 07-18-2025 [...] control unspecified Expected: 06/30/2024 (Approximate), Expires: 06/30/2025 [facility] Comment on above: Expected: 06/30/2024 (Approximate), [...] AM EST Routine [facility] [address] [facility] [place] [address] Scooby Vega, DO [address] [facility] [place] [address] [facility] Start: 06-25-2024 Urine culture [facility] Start: 06-25-2024 Bacteria identified in Urine by Culture Urine Culture [facility] Start: 06-02-2024 End: 06-02-2025 CBC panel [...] AM EST Routine [facility] [address] [place] [address] Scooby Vega, DO [address] [facility] [place] [address] [facility] Start: 05-02-2024 End: 05-02-2024 Patient encounter procedure 05/02/2024 3:30 PM EST Routine [facility] [address] [place] [phone] Emely Hunter PA [address] [place] [address] [facility] Start: 05-02-2024 End: 10-30-2024 [...] EST Office Visit [facility] [address] [facility] [place] [phone] Scooby Vega, DO [address] [facility] [place] [address] [facility] Start: 04-04-2024 End: 04-04-2024 [...] Treatment [facility] [address] [facility] [address] [place] [address] Gretchen Moreno, PT [facility] Start: 03-23-2024 End: 03-23-2024 ambulatory 03/23/2024 1:00 PM EDT Treatment [facility] [address] [place] [address] [place] [address] Gretchen Moreno, PT [facility] Start: 03-18-2024 End: 03-18-2024 ambulatory 03/18/2024 1:30 PM EDT Treatment [facility] [address] [address] [place] [address] Gretchen Moreno, PT [facility] Start: 03-11-2024 End: 03-11-2024 ambulatory 03/11/2024 1:30 PM EDT Treatment [facility] [address] [facility] [address] [place] [address] Gretchen Moreno, PT [facility] Start: 03-07-2024 End: 03-07-2024 Patient encounter procedure 03/07/2024 10:10 AM EDT Routine [facility] [address] [place] [address] Scooby Vega, DO [address] [facility] [place] [address] [facility] Start: 03-03-2024 End: 03-03-2024 ambulatory 03/03/2024 10:30 AM EDT Treatment [facility] [address] [facility] [address] [place] [address] Gretchen Moreno, PT [facility] Start: 02-26-2024 End: 02-26-2024 ambulatory 02/26/2024 1:30 PM EDT Treatment [facility] [address] [place] [address] [place] [address] Gretchen Moreno, PT Arrived [facility] Comment on above: Arrived Start: 02-25-2024 End: 02-25-2024 ambulatory 02/25/2024 10:30 AM EDT Treatment [facility] [address] [address] [place] [address] Gretchen Moreno, PT [facility] Start: 02-17-2024 End: 02-17-2024 ambulatory 02/17/2024 12:00 PM EDT Treatment [facility] [address] [facility] [place] [address] Gretchen Moreno, PT [facility] Start: [...] Missed menses Expected: 02/12/2024 (Approximate), Expires: 02/11/2025 [facility] Comment on above: Expected: 02/12/2024 (Approximate), Expires: 02/11/2025 Start: 02-12-2024 End: 02-12-2024 ambulatory 02/12/2024 10:30 AM EDT Initial [facility] [address] [place] [phone] [facility] Start: 02-12-2024 End: 02-12-2024 Professional / ancillary services management 02/12/2024 10:00 AM EDT Ancillary Procedure [facility] [address] [place] [id number] [facility] Start: 02-10-2024 End: 02-10-2024 ambulatory 02/10/2024 5:00 PM EDT Evaluation [facility] [address] [facility] [address] [place] [address] Gretchen Moreno, PT Arrived [facility] Comment on above: Arrived Bacteria identified in Urine by Culture Urine culture Microbiology Routine Missed menses Ordered: 02/12/2024 [facility] Comment on above: Ordered: 02/12/2024 CBC W Auto Different ial panel - Blood CBC and differential Lab Routine Missed menses Ordered: 02/12/2024 [facility] Comment on above: Ordered: 02/12/2024 CHLAMYDIA TRACHOMATI S (GENITO/STI) CHLAMYDIA TRACHOMATIS (GENITO/STI) Lab Routine STD exposure Ordered: 05/02/2024 [facility] Comment on above: Ordered: 05/02/2024 Cytology Cervical or vaginal smear or scraping study Pap Smear Pathology and Cytology Routine Well woman exam with routine gynecological exam Ordered: 05/02/2024 [facility] Comment on above: Ordered: 05/02/2024 Hemoglobin A1c/Hemoglobin.total in Blood Hemoglobin A1c Lab Routine Missed menses Ordered: 02/12/2024 [facility] Comment on above: Ordered: 02/12/2024 Hepatitis B virus surface Ag [Presence] in Serum or Plasma by Immunoassay Hepatitis B surface antigen Lab Routine Missed menses Ordered: 02/12/2024 [facility] Comment on above: Ordered: 02/12/2024 Hepatitis C virus Ab [Presence] in Serum or Plasma by Immunoassay Hepatitis C antibody Lab Routine Missed menses Ordered: 02/12/2024 [facility] Comment on above: Ordered: 02/12/2024 HIV-1/HIV-2 antigen/antibody combination immunoassay HIV-1 and HIV-2 antibodies Lab Routine Missed menses Ordered: 02/12/2024 [facility] Comment on above: Ordered: 02/12/2024 Human papilloma viru s DNA [Presence] in Unspecified specimen by Probe with amplification HPV DNA probe, amplified Microbiology Routine Well woman exam with routine gynecological exam Ordered: 05/02/2024 [facility] Comment on above: Ordered: 05/02/2024 Neisseria gonorrhoea e DNA [Presence] in Unspecified specimen by JUAN ANTONIO with probe detection Neisseria gonorrhea DNA probe, direct Lab Routine STD exposure Ordered: 05/02/2024 [facility] Comment on above: Ordered: 05/02/2024 Reagin Ab [Presence] in Serum by RPR RPR Lab Routine Missed menses Ordered: 02/12/2024 [facility] Comment on above: Ordered: 02/12/2024 Rubella antibody, IgG Rubella an tibody, IgG Lab Routine Missed menses Ordered: 02/12/2024 [facility] Comment on above: Ordered: 02/12/2024 SURESWAB(R) ADVANCED VAGINITIS PLUS, TMA SURESWAB(R) ADVANCED VAGINITIS PLUS, TMA Pathology and Cytology Routine Vaginal discharge Ordered: 05/02/2024 [facility] Work Phone: Comment on above: Ordered: 05/02/2024 XR Hip - left 2 Views [facility] Payers Date Payer Category Payer Private Health Insurance ESTELA Decker [id number] 2022 [facility] [place] [id number] 2022-Present [phone] [address] [place] [address] [id number] 1987 Unknown [id number] 2.16.840.1.790547.3.579.2 .593 1987 Unknown [id number] 2.16.840.1.294794.3.579.2 .593 1987 Unknown [id number] 2.16.840.1.722956.3.579.2 .1286 1987 Unknown [id number] 2.16.840.1.002463.3.579.2 .1285 1987 Unknown [id number] 2.16.840.1.956004.3.579.2 .1285 1987 Unknown [id number] 2.16840.1.533325.3.579.2 .1258 1987 Unknown [id number] 2.16.840.1.618587.3.579.2 .1258 1987 Unknown [id number] 2.840.1.561937.3.579.2 .1258 1987 Unknown [id number] 2.840.1.171951.3.579.2 .1258 1987 Unknown [id number] 2.840.1.885749.3.579.2 .1258 1987 Unknown [id number] 2.840.1.417453.3.579.2 .1258 1987 Unknown [id number] 2.840.1.971347.3.579.2 .1258 1987 Unknown [id number] 2.840.1.737492.3.579.2 .1258 1987 Unknown [id number] 2.840.1.493182.3.579.2 .1258 1987 Unknown [id number] 2.16840.1.584431.3.579.2 .1258 1987 Unknown [id number] 2.16840.1.126433.3.579.2 .1258 1987 Unknown [id number] 2.16.840.1.210248.3.579.2 .1258 1987 Unknown [id number] 2.840.1.145403.3.579.2 .1258 1987 Unknown [id number] 2.16840.1.974869.3.579.2 .1259 1987 Unknown [id number] 2.16.840.1.600974.3.579.2 .9 1987 Unknown [id number] 2.16.840.1.862077.3.579.2 .1259 1987 Unknown [id number] 2.16.840.1.242920.3.579.2 .1259 1959 Unknown [id number] Social History Date Type Detail Facility [facility] Work Phone: Start: 1985 Sex Assigned At Female F [facility] Start: 02-26-2023 [facility] tobacco [facility] Start: 11-09-2023 History of Social function [facility] Start: 11-09-2023 Tobacco use panel [facility] Start: 01-01-2024 [facility] Start: 1985 Sex assigned at Not on file [facility] Work Phone: Start: 06-27-2024 Sex Female (finding) [facility] Medical Equipment Procedure Code Equipment Code Equipment Origin al Text Equipment Identifier Dates 1 strip by In Vi tro route Daily Use in the morning prior to breakfast, 1 hour after each meal for a total of 4times daily. [id number] Start: 06-02-2024 End: 07-02-2024 1 each by In Vit ro route Daily Use to check FSBS four times daily [id number] Start: 06-02-2024 End: 07-02-2024 Goals Date Patient Goal Desired Activity /State Personal health goal Clinical Notes 02-10-2024 to 08-18-2024 Kalie Loera LPN - 08/18/2024 9:20 AM Abel Loera LPN - 08/01/2024 1:20 PM Abel Loera LPN - 07/18/2024 2:30 PM JORDYN Love - 06/30/2024 11:50 AM EST Note Date & Type Note Facility 08-18-2024 History of Present illness Narrative Reason for Appointment: Patient ID: Raphael Elizabeth is a 38 y.o. female who presents for Routine Visit Patient presents today for Return OB appointment. MEDICATIONS Current Outpatient Medications Medication Instructions BABY ASPIRIN PO 81 mg, Daily magnesium citrate solution Oral omega-3 acid ethyl esters (LOVAZA) 1 g, Oral, 2 times daily MV-Min-Fe Fum-FA-DHA ( 1 PO) Oral ALLERGIES Allergies Allergen Reactions Amoxicillin GI intolerance Other Reaction(s): GI Disturbance, Hives PROBLEMS Active Ambulatory Problems Diagnosis Date Noted Antepartum multigravida of advanced maternal age 0903/07/2024 with 15 completed weeks gestation 04/04/2024 32 weeks gestation of 08/01/2024 Third trimester 08/01/2024 34 weeks gestation of 08/18/2024 Resolved Ambulatory Problems Diagnosis Date Noted No [...] nursing note reviewed. Exam conducted with a student assistant present. Vitals: Estimated body mass index is 23.62 kg/m as calculated from the following: Height as of 04/21/23: 5' 7 . Weight as of this encounter: 150 lb 12.8 oz. BP: 110/72 Patient's last menstrual period was 12/18/2023. ASSESSMENT & PLAN ICD-10-CM 1. Third trimester Z34.93 POCT urinalysis dipstick manually resulted 2. 34 weeks gestation of Z3A.34 Patient presents today for a routine obstetrics appointment. Patient is currently 34w6d with a Estimated Date of Delivery: 09/23/24. Discussed symptoms that would natali to be assessed at the hospital for signs of labor. Discussed BP readings at [facility] and reassurance given. Patient to return to clinic in 1 week for routine OB appointment with GBS to be obtained. Documented by Kalie Loera LPN on behalf of: Scooby Vega DO documented in this encounter [facility] 08-01-2024 History of Present illness Narrative Reason [...] 81 mg, Daily Blood Glucose Monitoring Suppl ([employer] Glucometer) w/Device kit 1 kit, Does not [...] nursing note reviewed. Exam conducted with a student assistant present. Vitals: Estimated body mass index is [...] Scooby Vega DO documented in this encounter [facility] 07-18-2024 History of Present illness [...] 81 mg, Daily Blood Glucose Monitoring Suppl ([employer] Glucometer) w/Device kit 1 kit, Does not [...] nursing note reviewed. Exam conducted with a student assistant present. Vitals: Estimated body mass index is [...] of:Emely Hunter PA-C documented in this encounter [facility] 06-30-2024 History of Present illness [...] 81 mg, Daily Blood Glucose Monitoring Suppl ([employer] Glucometer) w/Device kit 1 kit, Does not [...] Scooby Vega DO documented in this encounter [facility] 06-02-2024 History of Present illness [...] nursing note reviewed. Exam conducted with a student assistant present. Vitals: Estimated body mass index is [...] Scooby Vega DO documented in this encounter [facility] 05-02-2024 History of Present illness [...] nursing note reviewed. Exam conducted with a student assistant present. Vitals: Estimated body mass index is [...] obtained without difficulty and patient was given [facility] order to have obtained. Orders Placed [...] of: JORDYN Fonseca documented in this encounter [facility] 04-04-2024 History of Present illness [...] nursing note reviewed. Exam conducted with a student assistant present. Vitals: Estimated body mass index is [...] Aspirin. Discussed again in regards to seeing [facility] & referral will be completed. Patient to have NST/BPP starting at 32 weeks gestation. Patient will have Anatomy Scan done at [facility]. Patient is Rh Negative and [...] Scooby Vega DO documented in this encounter [facility] 04-01-2024 History of Present illness [...] and it pops a lot randomly. Precautions: [place] Subjective: Pt states overall, ROM has improved. [...] to be instructed in home exercise program. [employer] Polisher Operator Goals: To be met in 10 [...] sign below. Date: documented in this encounter [facility] 03-23-2024 History of Present illness [...] and it pops a lot randomly. Precautions: [place] Subjective: Pt states range of motion of [...] sign below. Date: documented in this encounter [facility] 03-18-2024 History of Present illness [...] and it pops a lot randomly. Precautions: [place] Subjective: Pt states she feels like her [...] to be instructed in home exercise program. [employer]isher Operator Goals: To be met in 10 [...] sign below. Date: documented in this encounter [facility] 03-11-2024 History of Present illness [...] and it pops a lot randomly. Precautions: [place] Subjective: Pt states overall she believes hip [...] to be instructed in home exercise program. [employer] Polisher Operator Goals: To be met in 10 [...] sign below. Date: documented in this encounter [facility] 03-07-2024 History of Present illness [...] nursing note reviewed. Exam conducted with a student assistant present. Vitals: Estimated body mass index is [...] or undercooked meat, and stay away from [facility]. Patient has been consulted regarding any further do's and don'ts of . Patient voiced understanding and all questions and concerns were answered. Follow Up: Patient is to return in 4 weeks for routine OB appointment. Documented by Kalie Loera LPN on behalf of: Scooby Vega DO documented in this encounter [facility] 03-03-2024 History of Present illness [...] and it pops a lot randomly. Precautions: [place] Subjective: Pt states she has been doing [...] sign below. Date: documented in this encounter [facility] 02-26-2024 History of Present illness [...] and it pops a lot randomly. Precautions: [place] Subjective: Pt states she was able to [...] to be instructed in home exercise program. [employer]isher Operator Goals: To be met in 10 [...] sign below. Date: documented in this encounter [facility] 02-17-2024 History of Present illness [...] and it pops a lot randomly. Precautions: [place] Subjective: Pt states she has not done [...] to be instructed in home exercise program. [employer] Polisher Operator Goals: To be met in 10 [...] sign below. Date: documented in this encounter [facility] 02-12-2024 History of Present illness [...] or undercooked meat, and stay away from [facility]. Patient has also been advised to [...] Estee Cobb LPN documented in this encounter [facility] 02-10-2024 History of Present illness [...] and it pops a lot randomly. Precautions: [place] Subjective: left hip ant and lateral Pain: [...] Evaluation note No assessment inform ation available [facility] Work Phone: Evaluation note Diagnosis Onset Date Left hip pain acute [facility] Work Phone: Evaluation note* Diagnosis [...] gestation of [facility] Diagnosis Third trimester state, incidental 34 weeks gestation of Multigravida of advanced maternal age in third trimester documented in this encounter [facility] Summary [...] and content) DATE CREATED AUTHOR 03/22/2022 [facility] [place] [facility] DATE CREATED AUTHOR AUTHOR'S ORGANIZ ATION 04/05/2024 [facility] DATE CREATED AUTHOR AUTHOR'S ORGANIZ ATION 07/03/2024 [facility] DATE CREATED AUTHOR AUTHOR'S ORGANIZ ATION 08/03/2024 [facility] EPIC Care Teams [...] December 01, 2023 End: December 01, 2023 Disability Case Manager Relationship Specialty Start Date End Date Jen Granados MD [address] [place] [address] PCP - General Family Medicine 03/10/23 Disability Case Manager Relationship Specialty Start Date End Date Jen Granados MD [address] [place] [address] PCP - General Family Medicine 03/10/23 Disability Case Manager Relationship Specialty Start Date End Date Jen Granados MD [address] [facility] [place] [phone] PCP - General Family Medicine 03/10/23 Disability Case Manager Relationship Specialty Start Date End Date Jen Granados MD [address] [facility] [place] [address] PCP - General Family Medicine 03/10/23 Disability Case Manager Relationship Specialty Start Date End Date Jen Granados MD [address] [facility] [place] [phone] PCP - General Family Medicine 03/10/23 Disability Case Manager Relationship Specialty Start Date End Date Jen Granados MD [address] [facility] [place] [address] PCP - General Family Medicine 03/10/23 Disability Case Manager Relationship Specialty Start Date End Date Jen Granados MD [address] [facility] [place] [phone] PCP - General Family Medicine 03/10/23 Disability Case Manager Relationship Specialty Start Date End Date Jen Granados MD [address] [place] [facility] [place] [address] PCP - General Family Medicine 03/10/23 Disability Case Manager Relationship Specialty Start Date End Date Jen Granados MD [address] [place] [facility] [place] [address] PCP - General Family Medicine 03/10/23 Disability Case Manager Relationship Specialty Start Date End Date Jen Granados MD [address] [facility] [address] PCP - General Family Medicine 03/10/23 Disability Case Manager Relationship Specialty Start Date End Date Jen Granados MD [address] [facility] [address] PCP - General Family Medicine 03/10/23 Disability Case Manager Relationship Specialty Start Date End Date Jen Granados MD [address] [facility] [address] PCP - General Family Medicine 03/10/23 Disability Case Manager Relationship Specialty Start Date End Date Jen Granados MD [address] [facility] [address] PCP - General Family Medicine 03/10/23 Disability Case Manager Relationship Specialty Start Date End Date Jen Granados MD [address] [facility] [address] PCP - General Family Medicine 03/10/23 Disability Case Manager Relationship Specialty Start Date End Date Jen Granados MD [address] [facility] [facility] [address] PCP - General Family Medicine 03/10/23 Team [...] June 25, 2024 End: June 25, 2024 Disability Case Manager Relationship Specialty Start Date End Date Jen Granados MD [address] [facility] [phone] PCP - General Family Medicine 03/10/23 Disability Case Manager Relationship Specialty Start Date End Date Jen Granados MD [address] [facility] [address] PCP - General Family Medicine 03/10/23 Disability Case Manager Relationship Specialty Start Date End Date Jen Granados MD [address] [facility] [address] PCP - General Family Medicine 03/10/23 Disability Case Manager Relationship Specialty Start Date End Date Jen Granados MD [address] [facility] [facility] [phone] PCP - General Family Medicine 03/10/23 Disability Case Manager Relationship Specialty Start Date End Date Jen Granados MD [address] [place] [address] PCP - General Family Medicine 03/10/23 Disability Case Manager Relationship Specialty Start Date End Date Jen Granados MD [address] [place] [phone] PCP - General Family Medicine 03/10/23 Goals [...] of left lower limb, excluding foot Procedures SD PHYSICAL THERAPY EVALUATION LOW COMPLEX 20 MINS Ashley Rock MD [address] [place] [address] Gretchen Moreno, [place] Referral ID Status Reason Start Date Expiration Date V isits Requested Visits Authorized [id number] Authorized 02/10/2024 08/08/2024 99 99 Reason Comments [...] BE BASED ON THE PRIMARY CLINICAL RECORDS. [facility] [employer] [facility] provides no warranty or guarantee of the accuracy or completeness of information in this document.
--- NOTE | 2024-08-19 19:05 | US_ITS ---
[address] [address] Patient Name: RAPHAEL GAMA MRN: [id number] date: 1985 Sex: F Assigned Patient Location: [facility] Current Patient Location: Accession/Order Number: [id number] Exam Date: 08/20/2024 08:58 Report Date: 08/20/2024 09:03 At the request of: BEVERLY SAHA DO Procedure: US OB BPP w non-stress US OB BPP w non-stress 08/19/2024 7:35 PM SIGNS AND SYMPTOMS: ^09/23/2024 ^GESTATIONAL DIABETES MELLITUS O24.419 COMPARISON: None. TECHNIQUE: Limited pelvic ultrasound using transvesical sonography. FINDINGS: An intrauterine is identified. The visualized fetus has an estimated gestational age of 35 weeks and 0 days. cardiac activity is visualized with a heart rate of 143 bpm. The fetus is in cephalic presentation. Biophysical profile: Gross body movements: 2/2. tone: 2/2 breathin/2 Amniotic fluid volume: 2/2 (amniotic fluid index 10.32 cm) US/US OB BPP w non-stress IMPRESSION: Single live IUP with an estimated gestational age of 35 weeks and 0 days. Biophysical profile: 01/27 Impression dictated by: Chan Hudson M.D.08/20/2024 9:03 AM Dictation Location: [place] [address] Electronically authenticated by: [id number] Y Date: 08/20/2024 09:03
[2024-08-19 19:36] VITALS: BP 123/71; PULSE 88; TEMP 36.4
== END 2024-08-19 20:05 | disposition home or self-care (01) ==
LOC: US 00:14 → FBC 19:03
PROVIDERS: PCP Family Medicine; Visit Provider Obstetrics & Gynecology
DX: O24.419 Gestational diabetes mellitus in pregnancy, unspecified control (principal); Z3A.35 35 weeks gestation of pregnancy
CPT/HCPCS: 76818

== ENCOUNTER 2024-08-23 00:48 | Outpatient (OUT) | payer OTHER, SELFPAY ==
--- OUTSIDE RECORDS SUMMARY | 2024-08-23 00:51 | XMS_ITS | CCD ---
Author Organization [facility] Care Team Providers Care [employer] Teacher Name Role Phone DOREEN, DR HOFFMAN Attending Unavailable DARWIN, DR JEN Ramirez Primary Care Unavailable DOREEN, DR HOFFMAN Admitting Unavailable DOREEN, DR HOFFMAN Consulting Unavailable GARY, DR PAUL Admitting Unavailable GARY, DR PAUL Consulting Unavailable GARY, DR PAUL Attending Unavailable DARWIN, DR JEN Ramirez Primary Care Unavailable Scooby Vega Attending Provider Jen Granados MD Primary Care Provider ALEIDA ASHLEY K Attending Unavailable JEN GRANADOS Referring Unavailable JEN GRANADOS Primary Care Unavailable ALEIDA, ASHLEY K Attending Unavailable JEN GRANADOS Referring Unavailable JEN GRANADOS Primary Care Unavailable Jen Granados MD Primary Care Provider Jae Cervantes DO Attending Provider Unavailab Jae Redd Admitting Unavailable Jae Cervantes Attending Unavailable Jen Granados Primary Care Unavailable Dm Vegay Admitting Unavailable GaryDmy Attending Unavailable GARYDMY Attending Unavailable GARYMDY Attending Unavailable GARYDMY Attending Unavailable EMELY HUNTER Attending Unavailable GARYMDY Attending Unavailable MORENO, GRECTHEN Attending Unavailable SHIN, ASHLEY Referring Unavailable MORENO GRETCHEN Attending Unavailable SHIN, ASHLEY Referring Unavailable MORENO, GRETCHEN Attending Unavailable SHIN, ASHLEY Referring Unavailable MORENO, GRETCHEN Attending Unavailable SHIN, ASHLEY Referring Unavailable GARY, SCOOBY Attending Unavailable MORENO, GRETCHEN Attending Unavailable SHIN, ASHLEY Referring Unavailable MORENO, GRETCHEN Attending Unavailable SHIN, ASHLEY Referring Unavailable MORENO, GRETCHEN Attending Unavailable SHIN, ASHLEY Referring Unavailable GRETCHEN MORENO Attending Unavailable ASHLEY SHIN Referring Unavailable EMELY HUNTER Attending Unavailable SCOOBY VEGA Attending Unavailable SCOOBY VEGA Attending Unavailable Allergies Allergy Classification Reported Allergen(s) Allergy Type Date of Onset Reaction(s) Facility (20 sources) Amoxicillin; Translations: [AMOXICILLIN] Drug Allergy 3 GI intolerance [facility] (3 sources) 12 Hour Decongestant Allergy to substance 3 Hives [facility] Medications Current Medications Medication Drug [...] 02/12/2024 Discontinued (Other) omega-3 acid ethyl esters ([facility]) 1000 mg oral capsule (3 sources) take 1 capsule by mouth in [...] Active MV-Min-Fe Fum-FA-DH A ( 1 PO) (3 sources) MV-Min- Fe Fum-FA-DHA ( 1 PO) Take by mouth Active Completed/Discontinued Medications Medication Drug Class(es) Dates Sig (Normalized) Sig (Original) magnesium citrate (16 sources) Start: 03-07-2024 End: 04-04-2024 Magnesium Citrate [...] of ] 07-18-2024 Episodic Residual codes; unclassified (10 sources) Gestation period, 32 weeks; Translations: [32 weeks gestation of ] Onset: 08-01-2024 08-01-2024 Episodic Residual codes; unclassified (5 sources) Gestation period, 34 weeks; Translations: [34 [...] Range Facility OB BPP W NON-STRESS on 08-20-2024 [place] [address] Ultrasound Report Signed Patient: RAPHAEL ELIZABETH MR#: [id number] : 1985 Acct:[id number] Age/Sex: 38 / F ADM Date: 08/19/24 Loc: US Attending Dr: Scooby Vega D.O. Ordering Physician: Scooby Vega D.O. Date of Service: 08/19/24 Procedure(s): US OB BPP w non-stress Accession Number(s): [id number] cc: Jen Granados M.D.; Scooby Vega D.O. The [place] [id number] Patient Name: RAPHAEL ELIZABETH MRN: [facility]:[id number] date: 1985 Sex: F Assigned Patient Location: [facility] Current Patient Location: Accession/Order Number: [id number] Exam Date: 08/20/2024 08:58 Report Date: 08/20/2024 09:03 At the request of: SCOOBY VEGA DO Procedure: US OB BPP w non-stress US OB BPP w non-stress 08/19/2024 7:35 PM SIGNS AND SYMPTOMS: 09/23/2024 GESTATIONAL DIABETES MELLITUS O24.419 COMPARISON: None. TECHNIQUE: Limited pelvic ultrasound using transvesical sonography. FINDINGS: An intrauterine is identified. The visualized fetus has an estimated gestational age of 35 weeks and 0 days. cardiac activity is visualized with a heart rate of 143 bpm. The fetus is in cephalic presentation. Biophysical profile: Gross body movements: 2/2. tone: 2/2 breathin/2 Amniotic fluid volume: 2/2 (amniotic fluid index 10.32 cm) US/US OB BPP w non-stress IMPRESSION: Single live IUP with an estimated gestational age of 35 weeks and 0 days. Biophysical profile: 01/27 Impression dictated by: Chan Hudson M.D.08/20/2024 9:03 AM Dictation Location: [place] [address] Electronically authenticated by: [id number] Y Date: 08/20/2024 09:03 Dictated By: Chan Hudson M.D. Signed By: 08/20/24904 DD/ 2 TD/TT: System Support Technician: [facility] Radiology Radiologdora guillen MD - 08/20/2024 [place] [address] Ultrasound Report Signed Patient: RAPHAEL ELIZABETH MR#: [id number] : 1985 Acct:[id number] Age/Sex: 38 / F ADM Date: 08/19/24 Loc: US Attending Dr: Scooby Vega D.O. Ordering Physician: Scooby Vega D.O. Date of Service: 08/19/24 Procedure(s): US OB BPP w non-stress Accession Number(s): [id number] cc: Jen Granados M.D.; Scooby Vega D.O. [place] [id number] Patient Name: RAPHAEL ELIZABETH MRN: [facility]:[id number] date: 1985 Sex: F Assigned Patient Location: [facility] Current Patient Location: Accession/Order Number: [id number] Exam Date: 08/20/2024 08:58 Report Date: 08/20/2024 09:03 At the request of: SCOOBY VEGA DO Procedure: US OB BPP w non-stress US OB BPP w non-stress 08/19/2024 7:35 PM SIGNS AND SYMPTOMS: 09/23/2024 GESTATIONAL DIABETES MELLITUS O24.419 COMPARISON: None. TECHNIQUE: Limited pelvic ultrasound using transvesical sonography. FINDINGS: An intrauterine is identified. The visualized fetus has an estimated gestational age of 35 weeks and 0 days. cardiac activity is visualized with a heart rate of 143 bpm. The fetus is in cephalic presentation. Biophysical profile: Gross body movements: 2/2. tone: 2/2 breathin/2 Amniotic fluid volume: 2/2 (amniotic fluid index 10.32 cm) US/US OB BPP w non-stress IMPRESSION: Single live IUP with an estimated gestational age of 35 weeks and 0 days. Biophysical profile: 01/27 Impression dictated by: Chan Hudson M.D.08/20/2024 9:03 AM Dictation Location: [place] [address] Electronically authenticated by: [id number] Y Date: 08/20/2024 09:03 Dictated By: Chan Hudson M.D. Signed By: 08/20/24904 DD/ 2 TD/TT: System Support Technician: [facility] Radiology Study observation (narrative) [facility] US OB BPP W NON-STRESS Ordered By: Radiologist Radiology on 08-20-2024 [facility] Work Phone: Urinalysis macro (dipstick) panel (U)on 08-18-2024 Bilirubin, UA Negative Negative - 4(70) +++ mg/dL [facility] Blood, UA Negative Negative - 50 Ulises/mcL [facility] Clarity, UA Clear [facility] Color, UA Yellow [facility] Glucose, UA Negative Negative - 2000(110) ++++ mg/dL [facility] Interpretation and review of laboratory results Abnormal [facility] Ketones, UA Negative Negative - 160(16) ++++ mg/dL [facility] Leukocytes, UA Negative Negative - 500+++ Clair/mcL [facility] Nitrite, UA Negative Negative - Positive [facility] pH, UA 7 5 - 9 [facility] Protein, UA Trace Negative - 1999(20) ++++ mg/dL [facility] Spec Grav, UA 1.025 1 - 1.03 [facility] Urobilinogen, UA 0.2 0.2 - 12 mg/dL [facility] US OB BPP W NON-STRESS on 08-12-2024 [place] [address] Ultrasound Report Signed Patient: RAPHAEL ELIZABETH MR#: [id number] : 1985 Acct:[id number] Age/Sex: 38 / F ADM Date: 08/12/24 Loc: Attending Dr: Scooby Vega D.O. Ordering Physician: cSooby Vega D.O. Date of Service: 08/12/24 Procedure(s): US OB BPP w non-stress Accession Number(s): [id number] cc: Jen Granados M.D.; Scooby Vega D.O. [address] [address] Patient Name: RAPHAEL ELIZABETH MRN: [facility]:[id number] date: 1985 Sex: F Assigned Patient Location: [facility] Current Patient Location: Accession/Order Number: [id number] Exam Date: 08/12/2024 22:10 Report Date: 08/12/2024 22:12 At the request of: SCOOBY VEGA DO Procedure: US OB BPP w non-stress Biophysical profile. Reason for exam: GBM. COMPARISON: Biophysical profile 08/06/2024. TECHNIQUE: Transabdominal imaging of the gravid uterus was obtained. FINDINGS: [employer] Analyst reports the BPP is 8 out of 8. SIDDHARTHA is normal 11.2 cm. heart rate 142 bpm. US/US OB BPP w non-stress IMPRESSION: BPP 8 out of 8. Impression dictated by: Lucas Martin Jr., D.O.08/12/2024 10:12 PM Dictation Location: [place] [address] Electronically authenticated by: [id number] Y Date: 08/12/2024 22:12 Dictated By: Lucas Martin M.D. Signed By: 08/12/242213 DD/ 11 TD/TT: System Support Technician: [facility] Radiology, Radiologi MD wilmer - 08/12/2024 [place] [address] Ultrasound Report Signed Patient: RAPHAEL ELIZABETH MR#: [id number] : 1985 Acct:[id number] Age/Sex: 38 / F ADM Date: 08/12/24 Loc: US Attending Dr: Scooby Vega D.O. Ordering Physician: Scooby Vega D.O. Date of Service: 08/12/24 Procedure(s): US OB BPP w non-stress Accession Number(s): [id number] cc: Jen Granados M.D.; Scooby Vega D.O. The [place] [id number] Patient Name: RAPHAEL ELIZABETH MRN: [facility]:[id number] date: 1985 Sex: F Assigned Patient Location: [facility] Current Patient Location: Accession/Order Number: [id number] Exam Date: 08/12/2024 22:10 Report Date: 08/12/2024 22:12 At the request of: SCOOBY GARY DO Procedure: US OB BPP w non-stress Biophysical profile. Reason for exam: GBM. COMPARISON: Biophysical profile 08/06/2024. TECHNIQUE: Transabdominal imaging of the gravid uterus was obtained. FINDINGS: [employer] Business Analyst reports the BPP is 8 out of 8. SIDDHARTHA is normal 11.2 cm. heart rate 142 bpm. US/US OB BPP w non-stress IMPRESSION: BPP 8 out of 8. Impression dictated by: Lucas Martin Jr., D.O.08/12/2024 10:12 PM Dictation Location: [facility] Electronically authenticated by: [id number] Y Date: 08/12/2024 22:12 Dictated By: Lucas Martin M.D. Signed By: 08/12/242213 DD/ 11 TD/TT: System Support Technician: [facility] Radiology Study observation (narrative) [facility] US OB BPP W NON-STRESS Ordered By: Radiologist Radiology on 08-12-2024 [facility] Work Phone: US OB BPP W NON-STRESS on 08-06-2024 [place] [address] Ultrasound Report Signed Patient: RAPHAEL ELIZABETH MR#: [id number] : 1985 Acct:[id number] Age/Sex: 38 / F ADM Date: 08/05/24 Loc: US Attending Dr: Scooby Vega D.O. Ordering Physician: Scooby Vega D.O. Date of Service: 08/05/24 Procedure(s): US OB BPP w non-stress Accession Number(s): [id number] cc: Jen Granados M.D.; Scooby Vega D.O. The [address] [address] Patient Name: RAPHAEL ELIZABETH MRN: [facility]:[id number] date: 1985 Sex: F Assigned Patient Location: [facility] Current Patient Location: Accession/Order Number: [id number] Exam Date: 08/05/2024 19:09 Report Date: 08/06/2024 [...] Signed By: 08/06/24 0753 DD/ 0751 TD/TT: System Support Technician: [facility] Radiology, Radiologi MD wilmer - 08/06/2024 [place] [address] Ultrasound Report Signed Patient: RAPHAEL ELIZABETH MR#: [id number] : 1985 Acct:[id number] Age/Sex: 38 / F ADM Date: 08/05/24 Loc: US Attending Dr: Scooby Vega D.O. Ordering Physician: Scooby Vega D.O. Date of Service: 08/05/24 Procedure(s): US OB BPP w non-stress Accession Number(s): [id number] cc: Jen Granados M.D.; Scooby Vega D.O. The [address] [address] Patient Name: RAPHAEL ELIZABETH MRN: [facility]:[id number] date: 1985 Sex: F Assigned Patient Location: [facility] Current Patient Location: Accession/Order Number: [id number] Exam Date: 08/05/2024 19:09 Report Date: 08/06/2024 [...] Signed By: 08/06/24 0753 DD/ 075 TD/TT: System Support Technician: [facility] Radiology Study observation (narrative) [facility] US OB BPP W NON-STRESS Ordered By: Radiologist Radiology on 08-06-2024 [facility] Work Phone: US OB BPP W NON-STRESS on 08-01-2024 [place] [address] Ultrasound Report Signed Patient: RAPHAEL ELIZABETH MR#: [id number] : 1985 Acct:[id number] Age/Sex: 38 / F ADM Date: 07/29/24 Loc: US Attending Dr: Scooby Vega D.O. Ordering Physician: Scooby Vega D.O. Date of Service: 07/29/24 Procedure(s): US OB BPP w non-stress Accession Number(s): [id number] cc: Jen Granados M.D.; Scooby Vega D.O. The [place] [id number] Patient Name: RAPHAEL ELIZABETH MRN: [facility]:[id number] date: 1985 Sex: F Assigned Patient Location: [facility] Current Patient Location: Accession/Order Number: [id number] Exam Date: 07/29/2024 19:04 Report Date: 08/01/2024 [...] M.D. Signed By: 08/01/24713 DD/ 0 TD/TT: System Support Technician: [facility] Radiology, Radiologi MD wilmer - 08/01/2024 [place] [address] Ultrasound Report Signed Patient: RAPHAEL ELIZABETH MR#: [id number] : 1985 Acct:[id number] Age/Sex: 38 / F ADM Date: 07/29/24 Loc: US Attending Dr: Scooby Vega D.O. Ordering Physician: Scooby Vega D.O. Date of Service: 07/29/24 Procedure(s): US OB BPP w non-stress Accession Number(s): [id number] cc: Jen Granados M.D.; Scooby Vega D.O. The [address] [address] Patient Name: RAPHAEL ELIZABETH MRN: [facility]:[id number] date: 1985 Sex: F Assigned Patient Location: [facility] Current Patient Location: Accession/Order Number: [id number] Exam Date: 07/29/2024 19:04 Report Date: 08/01/2024 [...] M.D. Signed By: 08/01/2414 DD/ 0 TD/TT: System Support Technician: [facility] Radiology Study observation (narrative) [facility] US OB BPP W NON-STRESS Ordered By: Radiologist Radiology on 08-01-2024 [facility] Work Phone: Urinalysis macro (dipstick) panel (U)on 08-01-2024 Bilirubin, UA Negative Negative - 4(70) +++ mg/dL [facility] Blood, UA Negative Negative - 50 Ulises/mcL [facility] Clarity, UA Clear [facility] Color, UA Yellow [facility] Glucose, UA Negative Negative - 1999(110) ++++ mg/dL [facility] Interpretation and review of laboratory results Abnormal [facility] Ketones, UA Negative Negative - 160(16) ++++ mg/dL [facility] Leukocytes, UA Trace Negative - 500+++ Clair/mcL [facility] Nitrite, UA Negative Negative - Positive [facility] pH, UA 7.5 5 - 9 [facility] Protein, UA Negative Negative - 1999(20) ++++ mg/dL [facility] Spec Grav, UA 1.015 1 - 1.03 [facility] Urobilinogen, UA 0.2 0.2 - 12 mg/dL [facility] Urinalysis macro (dipstick) panel (U)on 07-18-2024 Bilirubin, UA Negative Negative - 4(70) +++ mg/dL [facility] Blood, UA Negative Negative - 50 Ulises/mcL [facility] Clarity, UA Clear [facility] Color, UA Yellow [facility] Glucose, UA Negative Negative - 1999(110) ++++ mg/dL [facility] Interpretation and review of laboratory results Normal [facility] Ketones, UA Negative Negative - 160(16) ++++ mg/dL [facility] Leukocytes, UA Negative Negative - 500+++ Clair/mcL [facility] Nitrite, UA Negative Negative - Positive [facility] pH, UA 7 5 - 9 [facility] Protein, UA Negative Negative - 1999(20) ++++ mg/dL [facility] Spec Grav, UA 1.025 1 - 1.03 [facility] Urobilinogen, UA 0.2 0.2 - 12 mg/dL [facility] ALL CBC WITH AUTO DIFFon BASOPHILS ABSOLUTE AUTO 0 [facility] Basophils/100 WBC (Bld) 0.2 % 0.2 - 2.0 % [facility] Eosinophils/100 WBC (Bld) 0.9 % 0.9 - 7.0 % [facility] Erythrocyte distribution width (RBC) [Ratio] 13 % 11.0 - 15.0 % [facility] Hematocrit (Bld) [Volume fraction] 32.2 % Low 36.0 - 48.0 % [facility] Hemoglobin (Bld) [Mass/Vol] 10.9 g/dL Low 12.0 - 16.0 g/dL [facility] IMMATURE GRANULOCYTES ABS AUTO 0.13 High [facility] Immature granulocytes/100 WBC (Bld) 1.4 % High 0.0 - 0.5 % [facility] Interpretation and review of laboratory results Abnormal [facility] LYMPHOCYTES ABSOLUTE AUTO 1.4 [facility] Lymphocytes/100 WBC (Bld) 15.4 % Low 20.5 - 60.0 % [facility] MCH (RBC) [Entitic mass] 32.7 pg 26.7 - 34.0 pg [facility] MCHC (RBC) [Mass/Vol] 33.9 g/dL 29.9 - 35.2 g/dL [facility] MCV (RBC) [Entitic vol] 96.7 fL 81.0 - 99.0 fL [facility] MONOCYTES ABSOLUTE AUTO 0.5 [facility] Monocytes/100 WBC (Bld) 4.8 % 1.7 - 12.0 % [facility] NEUTROPHILS ABSOLUTE AUTO 7.2 High [facility] Neutrophils/100 WBC (Bld) 77.3 % High 43.0 - 75.0 % [facility] Platelet mean volume (Bld) [Entitic vol] 9.2 fL Low 9.5 - 13.5 fL [facility] TB EO # 0.1 [facility] TB PLT 229 [facility] RBC 3.33 Low [facility] WBC 9.3 [facility] Urinalysis macro (dipstick) panel (U)on 06-30-2024 Bilirubin, UA Negative Negative - 4(70) +++ mg/dL [facility] Blood, UA Negative Negative - 50 Ulises/mcL [facility] Clarity, UA Clear [facility] Color, UA Yellow [facility] Glucose, UA Negative Negative - 2000(110) ++++ mg/dL [facility] Interpretation and review of laboratory results Abnormal [facility] Ketones, UA Negative Negative - 160(16) ++++ mg/dL [facility] Leukocytes, UA Trace Negative - 500+++ Clair/mcL [facility] Nitrite, UA Negative Negative - Positive [facility] pH, UA 8.5 5 - 9 [facility] Protein, UA Positive Negative - 1999(20) ++++ mg/dL [facility] Comment on above: trace Spec Grav, UA 1.015 1 - 1.03 [facility] Urobilinogen, UA 0.2 0.2 - 12 mg/dL [facility] Basophils/100 WBC Manual cnt (Bld)on 06-25-2024 Basophils/100 WBC (Bld) Basophils/100 leukocytes in Blood by Manual count Low 0.2-2.0 [facility] Eosinophils/100 WBC Manual c nt (Bld)on 06-25-2024 Eosinophils/100 WBC (Bld) Eosinophils/100 leukocytes in Blood by Manual count 0.9-7.0 [facility] Erythrocyte distribution wid th Auto (RBC) [Ratio]on 06-25-2024 Erythrocyte distribution width (RBC) [Ratio] Erythrocyte distribution width [Ratio] by Automated count 11.0-15.0 [facility] Estimated glomerular filtrat ion rate (GFR) non- Americanon 06-25-2024 GFR/1.73 sq M.predicted among non-blacks MDRD (S/P/Bld) [Vol rate/Area] Estimated glomerular filtration rate (GFR) non- >=60 mL/min/1.73 m 2 [facility] Hematocrit Auto (Bld) [Volum e fraction]on 06-25-2024 Hematocrit (Bld) [Volume fraction] Hematocrit [Volume Fraction] of Blood by Automated count Low 36.0-48.0 [facility] Hemoglobin [Mass/volume] in Bloodon 06-25-2024 Hemoglobin (Bld) [Mass/Vol] Hemoglobin [Mass/volume] in Blood Low 12.0-16.0 [facility] Laboratory - Chemistry and C hemistry - challengeon 06-25-2024 Calcium [Mass/Vol] 8.2 mg/dL Low 8.5-10.1 [facility] Chloride [Moles/Vol] 99 mmol/L 98-107 [facility] CO2 [Moles/Vol] 21.2 mmol/L 21.0-32.0 [facility] Creatinine [Mass/Vol] 0.89 mg/dL 0.55-1.02 [facility] GFR/1.73 sq M.predicted MDRD (S/P/Bld) [Vol rate/Area] mL/min/{1.73_m2} >=60 mL/min/1.73 m 2 [facility] Glucose [Mass/Vol] 98 mg/dL 74-106 [facility] Potassium [Moles/Vol] 3.7 mmol/L 3.5-5.1 [facility] Sodium [Moles/Vol] 130 mmol/L Low 136-145 [facility] Urea nitrogen [Mass/Vol] 7.0 mg/dL 7.0-18.0 [facility] Urea nitrogen/Creatinine [Mass ratio] 7.9 mg/mg [facility] Bilirubin Ql (U) Negative NEGATIVE [facility] Glucose (U) [Mass/Vol] Negative NEGATIVE [facility] Ketones Ql (U) 15 mg/dL Abnormal NEGATIVE [facility] pH (U) 7.5 [pH] 5.0-9.0 [facility] Specific gravity (U) [Rel density] 1.015 1.005-1.025 [facility] Urobilinogen Qn (U) 1.0 {Ree'U}/dL 0.2-1.0 [facility] Laboratory - Hematology and Cell countson 06-25-2024 Band form neutrophils/100 WBC (Bld) 2.0 % 0-5 [facility] Lymphocytes/100 WBC (Bld) 2.0 % Low 20.5-60.0 [facility] Monocytes/100 WBC (Bld) 5.0 % 1.7-12.0 [facility] - Microbiology an d Antimicrobial susceptibilityon 06-25-2024 SARS-CoV-2 (COVID-19) RNA JUAN ANTONIO+probe Ql (Unsp spec) Negative NEGATIVE [facility] Comment on above: This test has [...] ationon 06-25-2024 Appearance (U) CLOUDY Abnormal CLEAR [facility] Color (U) DK YELLOW YELLOW [facility] Laboratory - Urinalysison Leukocyte esterase Test strip Ql (U) Negative NEGATIVE [facility] Nitrite Ql (U) Negative NEGATIVE [facility] Protein Ql (U) TRACE mg/dL NEG/TRACE [facility] Leukocytes [#/volume] correc leroy for nucleated erythrocytes in Blood by Automated counon 06-25-2024 WBC corrected for nucl RBC Auto (Bld) [#/Vol] Leukocytes [#/volume] corrected for nucleated erythrocytes in Blood by Automated coun 4.0-11.0 [facility] MCH Auto (RBC) [Entitic mass ]on 06-25-2024 MCH (RBC) [Entitic mass] MCH [Entitic mass] by Automated count 26.7-34.0 [facility] MCHC Auto (RBC) [Mass/Vol]on 06-25-2024 MCHC (RBC) [Mass/Vol] MCHC [Mass/volume] by Automated count 29.9-35.2 [facility] MCV Auto (RBC) [Entitic vol] on 06-25-2024 MCV (RBC) [Entitic vol] MCV [Entitic volume] by Automated count 81.0-99.0 [facility] No Panel Informationon 06-25 Absolute Basophils (Manual) 0.00 10 3/uL 0.00-0.10 [facility] Band Neutrophils # (Manual) 0.2 10 3/uL 0.0-0.3 [facility] Eosinophils # (Manual) 0.08 10 3/uL 0.00-0.70 [facility] Lymphocytes # (Manual) 0.16 10 3/uL Low 1.20-3.80 [facility] Monocytes # (Manual) 0.41 10 3/uL 0.30-0.80 [facility] Segmented Neutrophils # (Manual) 7.38 10 3/uL High 1.4-6.5 [facility] Urine Occult Blood Negative NEGATIVE [facility] Bedside Influenza Type A Antigen Positive Abnormal [facility] Comment on above: NOTE: Live attenuate d influenza vaccine viruses can cause apositive result for a rapid influenza diagnostic test ifadministered up to 7 days prior to rapid testing. Bedside Influenza Type B Antigen Negative [facility] Comment on above: Negative for Flu B p rotein antigen. Infection due to Flu Bcannot be ruled out. Flu B antigen in the sample may bebelow the detection limit of the test. Platelet mean volume Auto (B ld) [Entitic vol]on 06-25-2024 Platelet mean volume (Bld) [Entitic vol] Platelet mean volume [Entitic volume] in Blood by Automated count Low 9.5-13.5 [facility] Platelets Auto (Bld) [#/Vol] on 06-25-2024 Platelets (Bld) [#/Vol] Platelets [#/volume] in Blood by Automated count 150-450 [facility] RBC Auto (Bld) [#/Vol]on RBC (Bld) [#/Vol] Erythrocytes [#/volu me] in Blood by Automated count Low 4.20-5.40 [facility] Segmented neutrophils/100 WB C Manual cnt (Bld)on 06-25-2024 Segmented neutrophils/100 WBC (Bld) Manual blood segmented neutrophils/100 leukocytes High 43.0-75.0 [facility] Serum or plasma anion gap de terminationon 06-25-2024 Anion gap [Moles/Vol] Serum or plasma anion gap determination [facility] Urine Cultureon 06-25-2024 Bacteria identified Cx Nom (U) No Growth 2 Days PERFORMED BY: [facility] [address] [place] [address] PATHOLOGIST CLINICAL RESEARCH MONITOR DANTE PALACIOS M.D. Normal [facility] Comment on above: Performed By: #### C UU #### [facility] [address] IGP,APTIMA HPV,AGE GDLNon AGE GDLN ACOG TESTING Note . [facility] Comment on above: TESTS RESULT FLAG UN ITS REF RANGE LAB Clinician Provided Cytology Information Source.............Cervix No. of containers..01 ThinPrep Vial Age Algo ACOG Annel... FLAG LEGEND: L-Low Normal,H-High Normal,LL-Alert Low,HH-Alert High <-Panic Low,>-Panic High,A-Abnormal,AA-Critical Abnormal Performed at: 01 =[address] [address] Kathryn Maldonado MD, HPV APTIMA Negative Negative [facility] Comment on above: This nucleic acid am plification test detects fourteen high- risk HPV types (16,18,31,33,35,39,45,51,52,56,58,59,66,68) without differentiation. Performed at: =[address] [id number] [employer] Worker: Kathryn Maldonado MD, Phone: [phone] Performed at: [address] [id number] [employer] Worker: Kathryn Maldonado MD, Phone: [phone] IGP, APTIMA HPV, RFX 16/18,45 Note . [facility] Comment on above: TESTS RESULT FLAG UN ITS REF RANGE LAB DIAGNOSIS: 02 NEGATIVE FOR INTRAEPITHELIAL LESION OR MALIGNANCY. Specimen adequacy: 02 Satisfactory for evaluation. Endocervical and/or squamous metaplastic cells (endocervical component) are present. Performed by: 02 Thao Shankar, Swimming Teacher . 02 Note: Note 02 The Pap [...] Low,>-Panic High,A-Abnormal,AA-Critical Abnormal Performed at: [address] [address] Kathryn Maldonado MD, BRUSH-SPATULA CERVIX [facility] RECURRENT VAGINITIS (HTRX)on 05-05-2024 ATOPOBIUM VAGINAE 0 [facility] ATOPOBIUM VAGINAE Not detected [facility] BVAB 2,3 (BACTERIAL VAGINOSIS ASSOCIATED BACTERIA 2, 3); MOBILUNCUS SPP 0 [facility] BVAB 2,3 (BACTERIAL VAGINOSIS ASSOCIATED BACTERIA 2, 3); MOBILUNCUS SPP Not detected [facility] JED ALBICANS, PARAPSILOSIS, TROPICALIS 0 [facility] JED ALBICANS, PARAPSILOSIS, TROPICALIS Not detected [facility] JED GLABRATA 0 [facility] JED GLABRATA Not detected [facility] JED KRUSEI 0 [facility] JED KRUSEI Not detected [facility] CHLAMYDIA TRACHOMATIS 0 [facility] CHLAMYDIA TRACHOMATIS Not detected [facility] GARDNERELLA VAGINALIS 0 [facility] GARDNERELLA VAGINALIS Not detected [facility] MEGASPHAERA (TYPES 1, 2) 0 [facility] MEGASPHAERA (TYPES 1, 2) Not detected [facility] MYCOPLASMA GENITALIUM 0 [facility] MYCOPLASMA GENITALIUM Not detected [facility] NEISSERIA GONORRHOEAE 0 [facility] NEISSERIA GONORRHOEAE Not detected [facility] TRICHOMONAS VAGINALIS 0 [facility] TRICHOMONAS VAGINALIS Not detected [facility] Urinalysis macro (dipstick) panel (U)on 05-03-2024 Bilirubin, UA Negative Negative - 4(70) +++ mg/dL [facility] Blood, UA Negative Negative - 50 Ulises/mcL [facility] Clarity, UA Clear [facility] Color, UA Yellow [facility] Glucose, UA Negative Negative - 1999(110) ++++ mg/dL [facility] Interpretation and review of laboratory results Normal [facility] Ketones, UA Negative Negative - 160(16) ++++ mg/dL [facility] Leukocytes, UA Negative Negative - 500+++ Clair/mcL [facility] Nitrite, UA Negative Negative - Positive [facility] pH, UA 0.5 5 - 9 [facility] Protein, UA Negative Negative - 1999(20) ++++ mg/dL [facility] Spec Grav, UA 1.025 1 - 1.03 [facility] Urobilinogen, UA 1.0 0.2 - 12 mg/dL [facility] Human papilloma virus 16+18+ 31+33+35+39+45+51+52+56+58+59+66+68 DNA [Presence] in Denis 05-02-2024 HPV 16+18+31+33+35+39+4 5+51+52+56+58+59+66 +68 DNA Probe+sig amp Ql (Cvx) Human papilloma virus 16+18+31+33+35+39+45+51+52+5 6+58+59+66+68 DNA [Presence] in Cer Negative [facility] Comment on above: This nucleic acid am plification test detects fourteen high- risk HPV types (16,18,31,33,35,39,45,51,52,56,58,59,66,68)without differentiation.Performed at: = - [facility] [id number] Director: Kathryn Maldonado MD, Phone: [phone] at: [facility] [id number] Director: Kathryn Maldonado MD, Phone: [phone] No Panel Informationon 05-02 HPV High Risk Other Comment Note . [facility] Comment on above: TESTS RESULT FLAG UN ITS REF RANGE LAB JESE GNOSIS: 02 NEGATIVE FOR INTRAEPITHELIAL LESION OR MALIGNANCY.Specimen adequacy: 02 Satisfactory for evaluation. Endocervical and/or squamous metaplastic cells (endocervical component) are present.Performed by: 02 Thao Shankar, Swimming Teacher. 02Note: Note 02 The Pap smear is [...] Low,>-Panic High,A-Abnormal,AA-Critical Abnormal --Performed at:02 [facility] [address] [place] [address] Kathryn Maldonado MD, Reference Lab Test Patient Age Note . [facility] Comment on above: TESTS RESULT FLAG UN ITS REF RANGE LAB Clinician Provided Cytology Information Source.............Cervix No. of containers..01 ThinPrep VialAge Richie SANDERS Annel... FLAG LEGEND: L-Low Normal,H-High Normal,LL-Alert Low,HH-Alert High <-Panic Low,>-Panic High,A-Abnormal,AA-Critical Abnormal --Performed at:01 =G [address] [address] Kathryn Maldonado MD, AFP, SERUM, OPEN SPINA BIFID Aon 05-01-2024 AFP MOM 1.18 . [facility] AFP VALUE 61.8 ng/mL . [facility] COMMENT: Comment . [facility] Comment on above: Cydney Rodriguez , Ph.D., [facility] Director References: Available Upon Request. Multiples Of Median Cutoffs For AFP Elevations Chiang 2.5 Black 2.8 IDD 2.0 Twins 4.5 Abbreviation Definitions IDD - Insulin Dep Diabetes OSBR - Open Spina Bifida Risk For further inquiries contact [facility] at [phone]. This test was developed and its performance characteristics determined by [employer]. It has not been cleared or approved by the Food and Drug Administration. Performed at: - [facility] [address] [facility], [place], [place] [id number] [employer] Worker: Marissa Kovacs [facility], Phone: [phone] GEST. AGE ON COLLECTION DATE 19.0 . weeks [facility] GESTAT. AGE BASED ON LMP . [facility] Comment on above: Recalculations are n ot recommended when gestational dating by LMP and ultrasound are within 10 days. INSULIN DEP DIABETES No . [facility] INTERPRETATION Comment . [facility] Comment on above: Interpretation: Scre [...] Customer Services to discuss available options. The [employer] recommends amniocentesis be offered to women age 35 and older. [age] [facility] MULTIPLE GESTATION No . [facility] OSBR RISK 1 IN 6916 . [facility] RACE . [facility] RESULTS Report . [facility] TEST RESULTS: Negative . [facility] WEIGHT 135 . lbs [facility] N N LMP [id number] 3 15 N 1 Y 135 N N N N N White/ [facility] Alpha-fetoprotein (AFP) paige urement (gkizidnm-pd-pydopm)on 04-29-2024 AFP [MoM] Alpha-fetoprotein (A FP) measurement (yuxeybyn-fg-lyvore) . [facility] Assess gestational ageon Gestational age Assess gestational age . [facility] Estimation of maternal age-s pecific risk of Down syndrome birthon 04-29-2024 Age [Time] Estimation of matern al age-specific risk of Down syndrome . [facility] Insulin dependent diabetes m ellitus detectionon 04-29-2024 Insulin dependent diabetes mellitus Ql Insulin dependent diabetes mellitus detection . [facility] Interpretation of serum or p lasma second trimester quad maternal screen (narrative reon 04-29-2024 Second trimester quad maternal screen Darshan [Interp] Interpretation of serum or plasma second trimester quad maternal screen (narrative re . [facility] Comment on above: Interpretation: Scre en [...] 04-29 AFP Triple Screen Comment Comment . [facility] Comment on above: Cydney Rodriguez , Ph.D., DABCCDirectorReferences: Available Upon Request.Multiples Of Median Cutoffs For AFP ElevationsSingleton 2.5 Black 2.8IDD 2.0 Twins 4.5 Abbreviation DefinitionsIDD - Insulin Dep DiabetesOSBR - Open Spina Bifida RiskFor further inquiries contact [employer] at [phone].This test was developed and its performance characteristicsdetermined by [employer]. It has not been cleared or approvedby the Food and Drug Administration.Performed at: [facility] [employer] [id number] [place], [place] [id number] Director: Marissa Kovacs [facility], Phone: [phone] Alpha Fetoprotein Results Received Report . [facility] Gestational Age Calculation Method LMP . [facility] Comment on above: Recalculations are n ot recommended when gestational datingby LMP and ultrasound are within 10 days. Maternal Quad Test Risk 6916 . [facility] Maternal Race . [facility] Multiple No . [facility] Serum or plasma xnrts-8-xklp protein measurement (mass/volume)on 04-29-2024 AFP [Mass/Vol] Serum or plasma fpdyn-8-wkfzgadfrqe measurement (mass/volume) . [facility] BOX TEST SENT OUTon BOX TEST SENT OUT Y [facility] UNITY BOX [facility] ALL CBC WITH AUTO DIFFon BASOPHILS ABSOLUTE AUTO 0.0 [facility] Basophils/100 WBC (Bld) 0.5 % 0.2 - 2.0 % [facility] Eosinophils/100 WBC (Bld) 0.9 % 0.9 - 7.0 % [facility] Erythrocyte distribution width (RBC) [Ratio] 11.9 % 11.0 - 15.0 % [facility] Hematocrit (Bld) [Volume fraction] 37.3 % 36.0 - 48.0 % [facility] Hemoglobin (Bld) [Mass/Vol] 12.7 g/dL 12.0 - 16.0 g/dL [facility] IMMATURE GRANULOCYTES ABS AUTO 0.02 [facility] Immature granulocytes/100 WBC (Bld) 0.3 % 0.0 - 0.5 % [facility] Interpretation and review of laboratory results Abnormal [facility] LYMPHOCYTES ABSOLUTE AUTO 1.8 [facility] Lymphocytes/100 WBC (Bld) 27.4 % 20.5 - 60.0 % [facility] MCH (RBC) [Entitic mass] 32.2 pg 26.7 - 34.0 pg [facility] MCHC (RBC) [Mass/Vol] 34.0 g/dL 29.9 - 35.2 g/dL [facility] MCV (RBC) [Entitic vol] 94.4 fL 81.0 - 99.0 fL [facility] MONOCYTES ABSOLUTE AUTO 0.3 [facility] Monocytes/100 WBC (Bld) 5.1 % 1.7 - 12.0 % [facility] NEUTROPHILS ABSOLUTE AUTO 4.4 [facility] Neutrophils/100 WBC (Bld) 65.8 % 43.0 - 75.0 % [facility] Platelet mean volume (Bld) [Entitic vol] 9.4 fL Low 9.5 - 13.5 fL [facility] TBH EO # 0.1 [facility] TB PLT [address] [facility] RBC 3.95 Low [facility] WBC 6.6 [facility] HCG ( test) Ql (U)o n 02-12-2024 Interpretation and review of laboratory results Abnormal [facility] Preg Test, Ur Positive [facility] Urinalysis macro (dipstick) panel (U)on 02-12-2024 Bilirubin, UA Negative Negative - 4(70) +++ mg/dL [facility] Blood, UA Negative Negative - 50 Ulises/mcL [facility] Clarity, UA Clear [facility] Color, UA Yellow [facility] Glucose, UA Negative Negative - 2000(110) ++++ mg/dL [facility] Interpretation and review of laboratory results Normal [facility] Ketones, UA Negative Negative - 160(16) ++++ mg/dL [facility] Leukocytes, UA Negative Negative - 500+++ Clair/mcL [facility] Nitrite, UA Negative Negative - Positive [facility] pH, UA 6.5 5 - 9 [facility] Protein, UA Negative Negative - 1999(20) ++++ mg/dL [facility] Spec Grav, UA 1.015 1 - 1.03 [facility] Urobilinogen, UA 1.0 0.2 - 12 mg/dL [facility] No Panel Informationon 11-29 Human Chorionic Gonadotropin, Quant 2 mIU/mL [facility] Comment on above: 5-50 0.2-1 PISU95-53 0 1-2 OYZJN926-1,000 2-3 YOWTF096-34,000 3-4 WEEKS1,000-50,000 4-5 WEEKS10,000-100,000 5-6 WEEKS15,000-200,000 6-8 WEEKS10,000-100,000 2-3 MONTHS No Panel Informationon 11-22 Human Chorionic Gonadotropin, Quant 3 mIU/mL [facility] Comment on above: 5-50 0.2-1 GJZI67-46 0 1-2 ZZEDN527-1,000 2-3 EZXQA482-22,000 3-4 WEEKS1,000-50,000 4-5 WEEKS10,000-100,000 5-6 WEEKS15,000-200,000 6-8 WEEKS10,000-100,000 2-3 MONTHS No Panel Informationon 11-16 Human Chorionic Gonadotropin, Quant 6 mIU/mL [facility] Comment on above: 5-50 0.2-1 KTAT02-80 0 1-2 UTELO902-6,000 2-3 ZZRLD116-79,000 3-4 WEEKS1,000-50,000 4-5 WEEKS10,000-100,000 5-6 WEEKS15,000-200,000 6-8 WEEKS10,000-100,000 2-3 MONTHS No Panel Informationon 11-08 Human Chorionic Gonadotropin, Quant 27 mIU/mL [facility] Comment on above: 5-50 0.2-1 WFPT37-61 0 1-2 SVCLP875-2,000 2-3 HGTFR455-61,000 3-4 WEEKS1,000-50,000 4-5 WEEKS10,000-100,000 5-6 WEEKS15,000-200,000 6-8 WEEKS10,000-100,000 2-3 MONTHS Basophils Auto (Bld) [#/Vol] on 10-23-2023 Basophils (Bld) [#/Vol] 0.0 10 3/uL 0.0-0.1 [facility] Basophils/100 WBC Auto (Bld) on 10-23-2023 Basophils/100 WBC (Bld) 0.8 % 0.2-2.0 [facility] Eosinophils/100 WBC Auto (Bl d)on 10-23-2023 Eosinophils/100 WBC (Bld) 1.4 % 0.9-7.0 [facility] Erythrocyte distribution wid th Auto (RBC) [Ratio]on 10-23-2023 Erythrocyte distribution width (RBC) [Ratio] 11.9 % 11.0-15.0 [facility] Hematocrit Auto (Bld) [Volum e fraction]on 10-23-2023 Hematocrit (Bld) [Volume fraction] 36.0 % 36.0-48.0 [facility] Hemoglobin [Mass/volume] in Bloodon 10-23-2023 Hemoglobin (Bld) [Mass/Vol] 11.8 g/dL 12.0-16.0 [facility] Krzysztof 10-23-2023 L Specimen: [id number] R eceived: 10/26/23 Status: MAIA Newell Num: [id number] Spec Type: Surgical Subm Dr: Scooby Vega Tissues: A Products of Conception - Spontaneous or Missed (POC) Procedures: HE/3, Gross/Micro L4 Age/ Patient Sex Location Account Attending Physician Raphael Elizabeth 37/F LABELL [id number] Scooby Vega SPEC NUM: [id number] RECD: 10/26/23 STATUS: [facility] NUM: [id number] JANIE: 10/23/[address]: Scooby Vega ENTERED: [...] cm possible area of villous tissue identified. Transactional Paralegal sections to include the possible villous tissue are submitted in A1?A3. Clinical history: Missed CPT Codes 24007 -------- -------- Specimen: [id number] Received: 10/26/23 Status: MAIA Newell Num: [id number] Spec Type: Surgical Subm Dr: Scooby Vega Tissues: A Products of Conception - Spontaneous or Missed (POC) Procedures: HE/[place], Gross/Micro L4 -------- Patient: Raphael Elizabeth [id number] (Continued) -------- Signed (signature on file) Dante Palacios MD 10/27/23 1511 Normal [facility] Laboratory - Hematology and Cell countson 10-23-2023 Immature granulocytes/100 WBC (Bld) 0.2 % 0.0-0.5 [facility] Leukocytes [#/volume] correc leroy for nucleated erythrocytes in Blood by Automated counon 10-23-2023 WBC corrected for nucl RBC Auto (Bld) [#/Vol] 5.1 10 3/uL 4.0-11.0 [facility] Lymphocytes Auto (Bld) [#/Vo l]on 10-23-2023 Lymphocytes (Bld) [#/Vol] 1.7 10 3/uL 1.2-3.8 [facility] Lymphocytes/100 WBC Auto (Bl d)on 10-23-2023 Lymphocytes/100 WBC (Bld) 32.8 % 20.5-60.0 [facility] MCH Auto (RBC) [Entitic mass ]on 10-23-2023 MCH (RBC) [Entitic mass] 31.1 pg 26.7-34.0 [facility] MCHC Auto (RBC) [Mass/Vol]on 10-23-2023 MCHC (RBC) [Mass/Vol] 32.8 g/dL 29.9-35.2 [facility] MCV Auto (RBC) [Entitic vol] on 10-23-2023 MCV (RBC) [Entitic vol] 95.0 fL 81.0-99.0 [facility] Monocytes Auto (Bld) [#/Vol] on 10-23-2023 Monocytes (Bld) [#/Vol] 0.3 10 3/uL 0.3-0.8 [facility] Monocytes/100 WBC Auto (Bld) on 10-23-2023 Monocytes/100 WBC (Bld) 5.5 % 1.7-12.0 [facility] Neutrophils Auto (Bld) [#/Vo l]on 10-23-2023 Neutrophils (Bld) [#/Vol] 3.0 10 3/uL 1.4-6.5 [facility] Neutrophils/100 WBC Auto (Bl d)on 10-23-2023 Neutrophils/100 WBC (Bld) 59.3 % 43.0-75.0 [facility] No Panel Informationon 10-22 Eosinophils # (Auto) 0.1 10 3/uL 0.0-0.7 [facility] Immature Granulocyte # (Auto) 0.01 10 3/uL 0.00-0.03 [facility] Platelet mean volume Auto (B ld) [Entitic vol]on 10-23-2023 Platelet mean volume (Bld) [Entitic vol] 9.0 fL 9.5-13.5 [facility] Platelets Auto (Bld) [#/Vol] on 10-23-2023 Platelets (Bld) [#/Vol] 182 10 3/uL 150-450 [facility] RBC Auto (Bld) [#/Vol]on RBC (Bld) [#/Vol] 3.79 10 6/uL 4.20-5.40 [facility] No Panel Informationon 10-11 Human Chorionic Gonadotropin, Quant 26188 mIU/mL [facility] Comment on above: 5-50 0.2-1 LZYE63-51 0 1-2 XGFQH329-6,000 2-3 XMRME080-95,000 3-4 WEEKS1,000-50,000 4-5 WEEKS10,000-100,000 5-6 WEEKS15,000-200,000 6-8 WEEKS10,000-100,000 2-3 MONTHS No Panel Informationon 10-06 Human Chorionic Gonadotropin, Quant 91194 mIU/mL [facility] Comment on above: 5-50 0.2-1 PXDW11-73 0 1-2 BMYQT120-5,000 2-3 OCETV333-41,000 3-4 WEEKS1,000-50,000 4-5 WEEKS10,000-100,000 5-6 WEEKS15,000-200,000 6-8 WEEKS10,000-100,000 2-3 MONTHS No Panel Informationon 10-04 Human Chorionic Gonadotropin, Quant 06953 mIU/mL [facility] Comment on above: 5-50 0.2-1 STAQ25-02 0 1-2 YAGJH779-1,000 2-3 QNIUD601-00,000 3-4 WEEKS1,000-50,000 4-5 WEEKS10,000-100,000 5-6 WEEKS15,000-200,000 6-8 WEEKS10,000-100,000 2-3 MONTHS PAP ACOG PANEL 2: 30 to 65on 03-11-2022 . . Normal [facility] Comment on above: Result Comment: Perf ormed at: WB Performed By: #### [id number] #### [facility] [address] [address] [address] Danni Jacobs Age Gdln ACOG Testing 30-65 [facility] Comment on above: Performed By: #### 4 [id number] #### [facility] [address] [place] [address] Dr. Danni Jacobs DIAGNOSIS: Comment [facility] Comment on above: Result Comment: NEGA TIVE FOR INTRAEPITHELIAL LESION OR MALIGNANCY. THIS SPECIMEN WAS RESCREENED PART OF OUR TORQUE TESTER PROGRAM. Performed at: WB Performed By: #### 4 [id number] #### [facility] [address] [address] [address] Danni Jacobs HPV Aptima Negative Normal Negative [facility] Comment on above: Result Comment: This nucleic acid amplification test detects fourteen high-risk HPV types (16,18,31,33,35,39,45,51,52,56,58,59,66,68) without differentiation. Performed at: =G Performed By: #### 4 [id number] #### [facility] [address] [address] [address] Danni Jacobs Methodology: Comment [facility] Comment on above: Result Comment: This liquid based ThinPrep(R) pap test was screened with the use of an image guided system. Performed at: WB Performed By: #### 4 [id number] #### [facility] [address] [place] [address] Dr. Danni Jacobs Note: Comment [facility] Comment on above: Result Comment: The Pap smear is a screening test designed to aid in the detection of premalignant and malignant conditions of the uterine cervix. It is not a diagnostic procedure and should not be used as the sole means of detecting cervical cancer. Both false-positive and false-negative reports do occur. . Performed at: WB Performed By: #### [id number] #### [facility] [address] [address] [address] Danni Jacobs Performed by: Comment Normal [facility] Comment on above: Result Comment: Rocky Hull, Swimming Teacher (ASCP) Performed at: WB Performed By: #### 4 [id number] #### [facility] [address] [place] [address] Dr. Danni Jacobs QC reviewed by: Comment Normal [facility] Comment on above: Result Comment: Betzaida Ge, Supervisory Swimming Teacher (ASCP) Performed at: WB Performed By: #### [id number] #### [facility] [address] [place] [address] Dr. Danni Jacobs Specimen adequacy: Comment Normal [facility] Comment on above: Result Comment: Sati sfactory for evaluation. Endocervical and/or squamous metaplastic cells (endocervical component) are present. Performed at: WB Performed By: #### 4 [id number] #### [facility] [address] [place] [address] Dr. Danni Jacobs GLUCOSE BLOODon 04-22-2021 Glucose [Mass/Vol] 99 mg/dL Normal 74-106 [facility] Comment on above: Performed By: #### G YOSEPH, LIPID #### [facility] [address] [place] [address] Dr. Danni Jacobs LIPID PROFILEon 04-22-2021 CHOL-HDL RATIO NORM SEE BELOW Normal [facility] Comment on above: Result Comment: 3.3 - 4.4 LOW RISK 4.4 - 7.1 AVERAGE RISK 7.1 - 11.0 MODERATE RISK >11.0 HIGH RISK Performed By: #### G YOSEPH, LIPID #### [facility] [address] [place] [address] Dr. Danni Jacobs Cholesterol [Mass/Vol] 157 mg/dL Normal <=[address] [facility] Comment on above: Performed By: #### G YOSEPH, LIPID #### [facility] [address] [address] [address] Danni Jacobs Cholesterol in HDL [Mass/Vol] 74 mg/dL Normal [facility] Comment on above: Performed By: #### G YOSEPH, LIPID #### [facility] [address] [address] [address] Danni Jacobs Cholesterol in LDL [Mass/Vol] 71.2 mg/dL Normal [facility] Comment on above: Performed By: #### G YOSEPH, LIPID #### [facility] [address] [address] [address] Danni Jacobs Cholesterol.total/C holesterol in HDL [Mass ratio] 2.1 {ratio} Normal [facility] Comment on above: Performed By: #### G YOSEPH, LIPID #### [facility] [address] [address] [address] Danni Jacobs HDL NORMAL > or = 60 mg/dl - LO W CARDIOVASCULAR RISK <40 mg/dl - HIGH CARDIOVASCULAR RISK Normal [facility] Comment on above: Performed By: #### G YOSEPH, LIPID #### [facility] [address] [address] [address] Danni Jacobs LDL CALC NORMAL SEE BELOW Normal [facility] Comment on above: Result Comment: <100 mg/dl OPTIMAL 100 - 129 mg/dl NEAR OR ABOVE OPTIMAL 130 - 159 mg/dl BORDERLINE HIGH 160 - 189 mg/dl HIGH >190 mg/dl VERY HIGH Performed By: #### G YOSEPH, LIPID #### [facility] [address] [address] [address] Danni Jacobs Triglyceride [Mass/Vol] 59 mg/dL Normal <=[address] [facility] Comment on above: Performed By: #### G YOSEPH, LIPID #### [facility] [address] [place] [address] [address] Danni Jacobs VLDL CALC 11.8 mg/dL Normal [facility] Comment on above: Performed By: #### G YOSEPH, LIPID #### [facility] [address] [address] [address] Danni Jacobs Vital Signs Date Time Vital Sign Value Performing Clinician Philippe mera 08-18-2024 09:28-0500 Body mass index (BMI) [Ratio] 23.62 kg/m2 Scooby Gary DO Work Phone: [facility] 08-18-2024 09:28-0500 Body weight 68.4 kg Scooyb Gary DO Work Phone: [facility] 08-18-2024 09:28-0500 Diastolic blood pressure 72 mm[Hg] Scooby Gary DO Work Phone: [facility] 08-18-2024 09:28-0500 Systolic blood pressure 110 mm[Hg] Scooby Gary DO Work Phone: [facility] 08-01-2024 13:55-0500 Body mass index (BMI) [Ratio] 22.87 kg/m2 Scooby Gary DO Work Phone: [facility] 08-01-2024 13:55-0500 Body weight 66.22 kg Scooby Gary DO Work Phone: [facility] 08-01-2024 13:55-0500 Diastolic blood pressure 74 mm[Hg] Scooby Gary DO Work Phone: [facility] 08-01-2024 13:55-0500 Systolic blood pressure 116 mm[Hg] Scooby Gary DO Work Phone: [facility] 07-18-2024 15:05-0500 Body mass index (BMI) [Ratio] 22.84 kg/m2 Scooby Gary DO Work Phone: [facility] 07-18-2024 15:05-0500 Body weight 66.13 kg Scooby Gary DO Work Phone: [facility] 07-18-2024 15:05-0500 Diastolic blood pressure 70 mm[Hg] Scooby Gary DO Work Phone: [facility] 07-18-2024 15:05-0500 Systolic blood pressure 118 mm[Hg] Scooby Gary DO Work Phone: [facility] 06-30-2024 12:01-0500 Body mass index (BMI) [Ratio] 22.26 kg/m2 Scooby Gary DO Work Phone: [facility] 06-30-2024 12:01-0500 Body weight 64.47 kg Scooby Gary DO Work Phone: [facility] 06-30-2024 12:01-0500 Diastolic blood pressure 70 mm[Hg] Scooby Gary DO Work Phone: [facility] 06-30-2024 12:01-0500 Systolic blood pressure 110 mm[Hg] Scooby Gary DO Work Phone: [facility] 06-02-2024 10:45-0500 Body mass index (BMI) [Ratio] 21.9 kg/m2 Scooby Gary DO Work Phone: [facility] 06-02-2024 10:45-0500 Body weight 63.41 kg Scooby Gary DO Work Phone: [facility] 06-02-2024 10:45-0500 Diastolic blood pressure 72 mm[Hg] Scooby Gary DO Work Phone: [facility] 06-02-2024 10:45-0500 Systolic blood pressure 116 mm[Hg] Scooby Gary DO Work Phone: [facility] 05-02-2024 16:20-0500 Body mass index (BMI) [Ratio] 21.61 kg/m2 Emely COBB Work Phone: [facility] 05-02-2024 16:20-0500 Body weight 62.6 kg Emely COBB Work Phone: [facility] 05-02-2024 16:20-0500 Diastolic blood pressure 68 mm[Hg] Emely COBB Work Phone: [facility] 05-02-2024 16:20-0500 Systolic blood pressure 120 mm[Hg] Emely COBB Work Phone: [facility] 04-29-2024 11:40-0500 Body weight Jen Garnados MD Work Phone: [facility] 04-04-2024 14:55-0400 Body mass index (BMI) [Ratio] 21.27 kg/m2 Scooby Gary DO Work Phone: [facility] 04-04-2024 14:55-0400 Body weight 61.6 kg Scooby Gary DO Work Phone: [facility] 04-04-2024 14:55-0400 Diastolic blood pressure 70 mm[Hg] Scooby Gary DO Work Phone: [facility] 04-04-2024 14:55-0400 Systolic blood pressure 116 mm[Hg] Scooby Gary DO Work Phone: [facility] 03-07-2024 10:47-0400 Body mass index (BMI) [Ratio] 20.07 kg/m2 Scooby Gary DO Work Phone: [facility] 03-07-2024 10:47-0400 Body weight 58.12 kg Scooby Gary DO Work Phone: [facility] 03-07-2024 10:47-0400 Diastolic blood pressure 68 mm[Hg] Scooby Gary DO Work Phone: [facility] 03-07-2024 10:47-0400 Systolic blood pressure 114 mm[Hg] Scooby Gary DO Work Phone: [facility] 12-01-2023 16:10-0400 Body height 170.18 cm Scooby Gary Work Phone: [facility] 12-01-2023 16:10-0400 Body mass index (BMI) [Ratio] 19.5 kg/m2 Scooby Gary Work Phone: [facility] 12-01-2023 16:10-0400 Body weight 56.69 kg Scooby Gary Work Phone: [facility] 12-01-2023 16:10-0400 Diastolic blood pressure 78 mm[Hg] Scooby Gary Work Phone: [facility] 12-01-2023 16:10-0400 Systolic blood pressure 112 mm[Hg] Scooby Gary Work Phone: [facility] Encounters Encounter Date Encounter Type Care Provider Facility Start: 08-20-2024 End: 08-20-2024 Clinisync Result Encounter Scooby Gary DO Work Phone: [facility] Unsolicited Start: 08-20-2024 End: 08-20-2024 Clinisync Result Encounter Socoby Gary DO Work Phone: [facility] Unsolicited Start: 08-18-2024 End: 08-18-2024 Bamboo flowsheet Scooby Gary DO Work Phone: [facility] Start: 08-18-2024 End: 08-18-2024 Bamboo flowsheet Scooby Gary DO Work Phone: [facility] Start: 08-18-2024 End: 08-18-2024 ambulatory SCOOBY GARY Not Available Start: 08-18-2024 End: 08-18-2024 flow sheet Scooby [...] Bamboo flowsheet Scooby Gary DO Work Phone: [facility] Start: 06-30-2024 End: 06-30-2024 ambulatory SCOOBY GARY Not Available Start: 06-30-2024 End: 06-30-2024 flow sheet Scooby Gary DO Work Phone: [facility] Comment on above: 27 weeks gestation o f ; Second trimester ; Gestational diabetes mellitus (GDM), antepartum, gestational diabetes method of control unspecified Start: 06-25-2024 End: 06-25-2024 ambulatory Jen Granados MD Work Phone: [facility] Work Phone: Start: 06-25-2024 End: 06-25-2024 Departed Referred Jen Granados MD Work Phone: [facility] Start: 06-25-2024 Non-patient / Non-visit Jen Granados MD Work Phone: [facility] Work Phone: Start: 06-02-2024 End: 06-02-2024 Bamboo flowsheet Scooby Gary DO Work Phone: [facility] Start: 06-02-2024 End: 06-02-2024 Bamboo flowsheet Scooby Gary DO Work Phone: [facility] Start: 06-02-2024 End: 06-02-2024 ambulatory SCOOBY GARY Not Available Start: 06-02-2024 End: 06-02-2024 flow sheet Scooby Gary DO Work Phone: [facility] Comment on above: Second trimester pre gnancy; 23 weeks gestation of ; with normal glucose tolerance test (GTT); Diabetes mellitus screening; Gestational diabetes mellitus (GDM), antepartum, gestational diabetes method of control unspecified; Elevated glucose tolerance test Start: 05-02-2024 Non-patient / Non-visit Jen Granados MD Work Phone: [facility] Work Phone: Start: 05-02-2024 [...] / Non-visit Jen Granados MD Work Phone: [facility] Work Phone: Start: 04-04-2024 [...] [facility] Start: 04-04-2024 End: 04-04-2024 ambulatory [facility] Start: 04-01-2024 End: 04-01-2024 Bamboo flowsheet Gretchen Josh PT [facility] Start: 04-01-2024 End: [...] Start: 02-26-2024 End: 02-26-2024 Clinisync Result Encounter Socoby Gary DO Work Phone: [facility] [...] CI PT Start: 02-08-2024 End: 02-08-2024 ambulatory [facility] Start: 02-08-2024 ambulatory [facility] Start: 12-01-2023 End: 12-01-2023 ambulatory Scooby Gary Work Phone: [facility] Work Phone: Start: 12-01-2023 End: 12-01-2023 Patient encounter procedure Scooby Gary Work Phone: [facility] Work Phone: Start: 11-30-2023 Non-patient / Non-visit Scooby Gary Work Phone: [facility] Work Phone: Start: 11-23-2023 Non-patient / Non-visit Scooby Gary Work Phone: [facility] Work Phone: Start: 11-17-2023 Non-patient / Non-visit Scooby Gary Work Phone: [facility] Work Phone: Start: 11-09-2023 Non-patient / Non-visit Scooby Gary Work Phone: [facility] Work Phone: Start: 11-09-2023 End: 11-09-2023 ambulatory EMELY HUNTER Not Available Start: 10-23-2023 End: 10-23-2023 ambulatory Scooby Gary [facility] Work Phone: Start: 10-23-2023 End: 10-23-2023 Departed Referred Scooby Gary Work Phone: [facility] Start: 10-23-2023 Non-patient / Non-visit Scooby Gary Work Phone: [facility] Work Phone: Start: 10-12-2023 Non-patient / Non-visit Scooby Gary Work Phone: [facility] Work Phone: Start: 10-07-2023 Non-patient / Non-visit Scooby Gary Work Phone: [facility] Work Phone: Start: 10-05-2023 Non-patient / Non-visit Scooby Vega Work Phone: [facility] Physician [facility] Work Phone: Start: 03-03-2022 End: 03-03-[address] SCOOBY VEGA Facility:[facility] Start: 04-28-2021 Encounter for genera l adult medical examination without abnormal findings DR DALTON LOGAN [facility] Start: 04-22-2021 End: 04-23-[address] DALTON LOGAN Facility:[facility] Start: 04-22-2021 End: 04-23-2021 Encounter for general adult medical examination without abnormal findings DR DALTON LOGAN Facility:[facility] Procedures Date Procedure Procedure Detail Performing Clinician Start: 08-20-2024 US OB BPP W NON-STRESS Scooby Gary DO Work Phone: Start: 08-18-2024 Urnls dip stick/tabl et rgnt [...] DIFF Scooby Gary DO Work Phone: Start: 01-09-2025 Urnls dip stick/tabl et rgnt non-auto w/o [...] Start: 04-04-2024 Follow-up visit Follow-up ASHLEY Jose BASSETTSHIN Start: 02-26-2024 TB BOX TEST SENT OUT [...] AM EDT Routine [facility] [address] [facility] [place] [address] Scooby Vega, DO [address] [place], [place] [id number] [facility] Start: 09-05-2024 End: 09-05-2024 Patient encounter procedure 09/05/2024 1:30 PM EDT Routine [facility] [address] [place] [address] Scooby Vega, DO [address] [place] [address] [facility] Start: 08-24-2024 End: 08-24-2024 Patient encounter procedure 08/24/2024 1:20 PM EST Routine [facility] [address] [facility] [place] [address] Scooby Vega, DO [address] [place] [address] [facility] Start: 08-18-2024 End: 08-18-2025 US for US OB follow up transabdominal approach Imaging Routine Multigravida of advanced maternal age in third trimester Expected: 08/18/2024, Expires: 08/18/2025 [facility] Work Phone: Comment on above: Expected: 08/18/2024 , Expires: 08/18/2025 Start: 08-18-2024 End: 08-18-2024 Patient encounter procedure 08/18/2024 9:20 AM EST Routine [facility] [address] [facility] [place] [address] Scooby Vega, DO [address] [place] [address] [facility] Start: 08-01-2024 End: 08-01-2024 Patient encounter procedure 08/01/2024 1:20 PM EST Routine [facility] [address] [facility] [place] [address] Scooby Vega, DO [address] [place] [address] [facility] Start: 07-18-2024 End: 07-18-2024 Patient encounter procedure 07/18/2024 2:30 PM EST Routine [facility] [address] [facility] [place] [phone] Scooby Vega, DO [address] [place] [address] [facility] Start: 07-18-2024 End: 07-18-2025 US biophysical profile w non stress test US biophysical profile w non stress test Imaging Routine 30 weeks gestation of Third trimester Expected: 07/18/2024 (Approximate), Expires: 07/18/2025 [facility] Work Phone: Comment on above: Expected: 07/18/2024 (Approximate), Expires: 07/18/2025 Start: 06-30-2024 End: 06-30-2025 US biophysical profile w non stress test US biophysical profile w non stress test Imaging Routine Gestational diabetes mellitus (GDM), antepartum, gestational diabetes method of control unspecified Expected: 06/30/2024 (Approximate), Expires: 06/30/2025 [facility] Comment on above: Expected: 06/30/2024 (Approximate), Expires: 06/30/2025 Start: 06-30-2024 End: 06-30-2025 US for US OB follow up transabdominal approach Imaging Routine Gestational diabetes mellitus (GDM), antepartum, gestational diabetes method of control unspecified Expected: 06/30/2024, Expires: 06/30/2025 [facility] Work Phone: Comment on above: Expected: 06/30/2024 , Expires: 06/30/2025 Start: 06-30-2024 End: 06-30-2024 Patient encounter procedure 06/30/2024 11:50 AM EST Routine [facility] [address] [facility] [place] [id number] Scooby Vega, DO [address] [place] [address] [facility] Start: 06-25-2024 Urine culture [facility] Start: 06-25-2024 Bacteria identified in Urine by Culture Urine Culture [facility] Start: 06-02-2024 End: 06-02-2025 CBC panel [...] mellitus screening Expected: 06/02/2024 (Approximate), Expires: 06/02/2025 [facility] Comment on above: Expected: 06/02/2024 (Approximate), Expires: 06/02/2025 Start: 06-02-2024 End: 06-02-2024 Patient encounter procedure 06/02/2024 10:10 AM EST Routine [facility] [address] [facility] [place] [id number] Scooby Vega DO [address] [facility] [address] [place], [place] [id number] [facility] Start: 05-02-2024 End: 05-02-2024 Patient encounter procedure 05/02/2024 3:30 PM EST Routine [facility] [address] [facility] [place] [phone] Emely Hunter PA [address] [facility] [place] [address] [facility] Start: 05-02-2024 End: 10-30-2024 Alpha fetoprotein, maternal Alpha fetoprotein, maternal Lab Routine Second trimester 19 weeks gestation of Expected: 05/02/2024 (Approximate), Expires: 10/30/2024 [facility] Comment on above: Expected: 05/02/2024 (Approximate), Expires: 10/30/2024 Start: 05-02-2024 End: 05-02-2025 US for US OB ANATOMY SINGLE W US OB CERVICAL LENGTH Imaging Routine Screening, , for anatomic survey Expected: 05/02/2024 (Approximate), Expires: 05/02/2025 [facility] Comment on above: Expected: 05/02/2024 (Approximate), Expires: 05/02/2025 Start: 04-26-2024 End: 04-26-2024 Patient encounter procedure 04/26/2024 11:00 AM EST Office Visit [facility] [address] [facility] [place] [address] Scooby Vega DO [address] [facility] [place] [address] [facility] Start: 04-04-2024 End: 04-04-2024 [...] Treatment [facility] [address] [facility] [address] [place] [address] Gretchen Moreno, PT [facility] Start: 03-23-2024 End: 03-23-2024 ambulatory 03/23/2024 1:00 PM EDT Treatment [facility] [address] [facility] [address] [place] [address] Gretchen Moreno, PT [facility] Start: 03-18-2024 End: 03-18-2024 ambulatory 03/18/2024 1:30 PM EDT Treatment [facility] [address] [facility] [address] [place] [address] Gretchen Moreno, PT [facility] Start: 03-11-2024 End: 03-11-2024 ambulatory 03/11/2024 1:30 PM EDT Treatment [facility] [address] [place] [address] [place] [address] Gretchen Moreno, PT [facility] Start: 03-07-2024 End: 03-07-2024 Patient encounter procedure 03/07/2024 10:10 AM EDT Routine [facility] [address] [place] [address] Scooby Vega, DO [address] [facility] [place] [address] [facility] Start: 03-03-2024 End: 03-03-2024 ambulatory 03/03/2024 10:30 AM EDT Treatment [facility] [address] [place] [address] [place] [address] Gretchen Moreno, PT [facility] Start: 02-26-2024 End: 02-26-2024 ambulatory 02/26/2024 1:30 PM EDT Treatment [facility] [address] [place] [address] [place] [address] Gretchen Moreno, PT Arrived [facility] Comment on above: Arrived Start: 02-25-2024 End: 02-25-2024 ambulatory 02/25/2024 10:30 AM EDT Treatment [facility] [address] [facility] [address] [place] [address] Gretchen Moreno, PT [facility] Start: 02-17-2024 End: 02-17-2024 ambulatory 02/17/2024 12:00 PM EDT Treatment [facility] [address] [place] [address] [place] [address] Gretchen Moreno, PT [facility] Start: [...] AM EDT Initial [facility] [address] [facility] [place] [address] [facility] Start: 02-12-2024 End: 02-12-2024 Professional / ancillary services management 02/12/2024 10:00 AM EDT Ancillary Procedure [facility] [address] [facility] [place] [address] [facility] Start: 02-10-2024 End: 02-10-2024 ambulatory 02/10/2024 5:00 PM EDT Evaluation [facility] [address] [facility] [address] [place] [address] Gretchen Moreno, PT Arrived [facility] Comment on above: Arrived Bacteria identified in Urine by Culture Urine culture Microbiology Routine Missed menses Ordered: 02/12/2024 [facility] Comment on above: Ordered: 02/12/2024 CBC W Auto Different ial panel - Blood CBC and differential Lab Routine Missed menses Ordered: 02/12/2024 [facility] Comment on above: Ordered: 02/12/2024 CHLAMYDIA TRACHOMATI S (GENITO/STI) CHLAMYDIA TRACHOMATIS (GENITO/STI) Lab Routine STD exposure Ordered: 05/02/2024 [facility] Comment on above: Ordered: 05/02/2024 Cytology Cervical or vaginal smear or scraping study Pap Smear Pathology and Cytology Routine Well woman exam with routine gynecological exam Ordered: 05/02/2024 [facility] Comment on above: Ordered: 05/02/2024 Hemoglobin A1c/Hemoglobin.total in Blood Hemoglobin A1c Lab Routine Missed menses Ordered: 02/12/2024 [facility] Comment on above: Ordered: 02/12/2024 Hepatitis B virus surface Ag [Presence] in Serum or Plasma by Immunoassay Hepatitis B surface antigen Lab Routine Missed menses Ordered: 02/12/2024 [facility] Comment on above: Ordered: 02/12/2024 Hepatitis C virus Ab [Presence] in Serum or Plasma by Immunoassay Hepatitis C antibody Lab Routine Missed menses Ordered: 02/12/2024 [facility] Comment on above: Ordered: 02/12/2024 HIV-1/HIV-2 antigen/antibody combination immunoassay HIV-1 and HIV-2 antibodies Lab Routine Missed menses Ordered: 02/12/2024 [facility] Comment on above: Ordered: 02/12/2024 Human papilloma viru s DNA [Presence] in Unspecified specimen by Probe with amplification HPV DNA probe, amplified Microbiology Routine Well woman exam with routine gynecological exam Ordered: 05/02/2024 [facility] Comment on above: Ordered: 05/02/2024 Neisseria gonorrhoea e DNA [Presence] in Unspecified specimen by JUAN ANTONIO with probe detection Neisseria gonorrhea DNA probe, direct Lab Routine STD exposure Ordered: 05/02/2024 [facility] Comment on above: Ordered: 05/02/2024 Reagin Ab [Presence] in Serum by RPR RPR Lab Routine Missed menses Ordered: 02/12/2024 [facility] Comment on above: Ordered: 02/12/2024 Rubella antibody, IgG Rubella an tibody, IgG Lab Routine Missed menses Ordered: 02/12/2024 [facility] Comment on above: Ordered: 02/12/2024 SURESWAB(R) ADVANCED VAGINITIS PLUS, TMA SURESWAB(R) ADVANCED VAGINITIS PLUS, TMA Pathology and Cytology Routine Vaginal discharge Ordered: 05/02/2024 [facility] Work Phone: Comment on above: Ordered: 05/02/2024 XR Hip - left 2 Views [facility] Payers Date Payer Category Payer Private Health Insurance ESTELA Decker [id number] 2022 Unknown NILAM Decker [place] [id number] 2022-Present [phone] [address] [place] [address] [id number] 1987 Unknown [id number] 2.16.840.1.337041.3.579.2 .593 1987 Unknown [id number] 2.16.840.1.814051.3.579.2 .593 1987 Unknown [id number] 2.16.840.1.685375.3.579.2 .1286 1987 Unknown [id number] 2.16.840.1.766130.3.579.2 .1286 1987 Unknown [id number] 2.16.840.1.367647.3.579.2 .128 1987 Unknown [id number] 2.16.840.1.498903.3.579.2 .1259 1987 Unknown [id number] 2.16.840.1.372169.3.579.2 .1259 1987 Unknown [id number] 2.16.840.1.350130.3.579.2 .1258 1987 Unknown [id number] 2.840.1.079253.3.579.2 .1258 1987 Unknown [id number] 2.16840.1.504034.3.579.2 .1258 1987 Unknown [id number] 2.840.1.664682.3.579.2 .1258 1987 Unknown [id number] 2.840.1.631985.3.579.2 .1258 1987 Unknown [id number] 2.840.1.294103.3.579.2 .1258 1987 Unknown [id number] 2.840.1.706658.3.579.2 .1258 1987 Unknown [id number] 2.840.1.802068.3.579.2 .1258 1987 Unknown [id number] 2.840.1.358977.3.579.2 .1258 1987 Unknown [id number] 2.0.1.671348.3.579.2 .1258 1987 Unknown [id number] 2.840.1.637085.3.579.2 .1258 1987 Unknown [id number] 2.840.1.154307.3.579.2 .1258 1987 Unknown [id number] 2.840.1.340457.3.579.2 .1258 1987 Unknown [id number] 2.840.1.547910.3.579.2 .1258 1987 Unknown [id number] 2.840.1.140529.3.579.2 .1258 1987 Unknown [id number] 2.840.1.692506.3.579.2 .1258 1959 Unknown [id number] Social History Date Type Detail Facility Tobacco smoking stat [facility] Unknown if ever smoked [facility] Work Phone: Start: 1985 Sex Assigned At Female F [facility] Start: 02-26-2023 [facility] Start: 11-09-2023 History of Social function [facility] Start: 11-09-2023 Tobacco use panel [facility] Start: 01-01-2024 [facility] Start: 1985 Sex assigned at Not on file [facility] Tobacco smoking stat [facility] Unknown if ever smoked [facility] Work Phone: Start: 06-27-2024 [facility] Procedure Code Equipment Code Equipment Origin al Text Equipment Identifier Dates 1 strip by In Vi tro route Daily Use in the morning prior to breakfast, 1 hour after each meal for a total of 4times daily. [id number] Start: 06-02-2024 End: 07-02-2024 1 each by In Vit ro route Daily Use to check FSBS four times daily [id number] Start: 06-02-2024 End: 07-02-2024 Goals Date Patient Goal Desired Activity /State Personal health goal Clinical Notes 02-10-2024 to 08-18-2024 Kalie Loera LPN - 08/18/2024 9:20 AM Abel Loera [employer] - 08/01/2024 1:20 PM Abel Loera LPN [...] nursing note reviewed. Exam conducted with a minister present. Vitals: Estimated body mass index is [...] signs of labor. Discussed BP readings at [facility] and reassurance given. Patient to return to clinic in 1 week for routine OB appointment with [facility]BS to be obtained. Documented by Kalie Loera LPN on behalf of: Scooby Vega DO documented in this encounter [facility] 08-01-2024 History of Present illness [...] 81 mg, Daily Blood Glucose Monitoring Suppl (D-SkuRun Glucometer) w/Device kit 1 kit, Does not [...] nursing note reviewed. Exam conducted with a minister present. Vitals: Estimated body mass index is [...] Scooby Vega DO documented in this encounter [facility] 07-18-2024 History of Present illness [...] nursing note reviewed. Exam conducted with a minister present. Vitals: Estimated body mass index is [...] of:Emely Hunter PA-C documented in this encounter [facility] 06-30-2024 History of Present illness [...] 81 mg, Daily Blood Glucose Monitoring Suppl (D-SkuRun Glucometer) w/Device kit 1 kit, Does not [...] Scooby Vega DO documented in this encounter [facility] 06-02-2024 History of Present illness [...] nursing note reviewed. Exam conducted with a minister present. Vitals: Estimated body mass index is [...] Scooby Vega DO documented in this encounter [facility] 05-02-2024 History of Present illness [...] nursing note reviewed. Exam conducted with a minister present. Vitals: Estimated body mass index is [...] without difficulty and patient was given [facility] order to have obtained. Orders [...] of: JORDYN Fonseca documented in this encounter [facility] 04-04-2024 History of Present illness [...] nursing note reviewed. Exam conducted with a minister present. Vitals: Estimated body mass index is [...] Aspirin. Discussed again in regards to seeing [facility] [facility] & referral will be completed. Patient to have NST/BPP starting at 32 weeks gestation. Patient will have Anatomy Scan done at [facility]. Patient is Rh Negative and will [...] Scooby Vega DO documented in this encounter [facility] 04-01-2024 History of Present illness [...] and it pops a lot randomly. Precautions: [place] Subjective: Pt states overall, ROM has improved. [...] full IR and abduction. Pain noted with CHALRES and FADIR. Pain with right hip scour. [...] to be instructed in home exercise program. [facility] Goals: To be met in 10 weeks [...] sign below. Date: documented in this encounter [facility] 03-23-2024 History of Present illness [...] and it pops a lot randomly. Precautions: [place] Subjective: Pt states range of motion of [...] to be instructed in home exercise program. [facility] Goals: To be met in 10 weeks [...] sign below. Date: documented in this encounter [facility] 03-18-2024 History of Present illness [...] and it pops a lot randomly. Precautions: [place] Subjective: Pt states she feels like her [...] to be instructed in home exercise program. [employer] Goals: To be met in 10 weeks [...] sign below. Date: documented in this encounter [facility] 03-11-2024 History of Present illness [...] and it pops a lot randomly. Precautions: [place] Subjective: Pt states overall she believes hip [...] to be instructed in home exercise program. [facility] Goals: To be met in 10 weeks [...] sign below. Date: documented in this encounter [facility] 03-07-2024 History of Present illness [...] nursing note reviewed. Exam conducted with a minister present. Vitals: Estimated body mass index is [...] or undercooked meat, and [facility]. Patient has been consulted regarding any further do's and don'ts of . Patient voiced understanding and all questions and concerns were answered. Follow Up: Patient is to return in 4 weeks for routine OB appointment. Documented by Kalie Loera LPN on behalf of: Scooby Vega DO documented in this encounter [facility] 03-03-2024 History of Present illness [...] and it pops a lot randomly. Precautions: [place] Subjective: Pt states she has been doing [...] to be instructed in home exercise program. [facility] Goals: To be met in 10 weeks [...] sign below. Date: documented in this encounter [facility] 02-26-2024 History of Present illness [...] and it pops a lot randomly. Precautions: [place] Subjective: Pt states she was able to [...] to be instructed in home exercise program. [facility] Goals: To be met in 10 weeks [...] sign below. Date: documented in this encounter [facility] 02-17-2024 History of Present illness Narrative Physical Therapy Evaluation Visit Patient Name: Rapheal Elizabeth Today's Date: 02/17/2024 Encounter Diagnoses Name [...] and it pops a lot randomly. Precautions: [place] Subjective: Pt states she has not done [...] to be instructed in home exercise program. [facility] Goals: To be met in 10 weeks [...] sign below. Date: documented in this encounter [facility] 02-12-2024 History of Present illness [...] or undercooked meat, and stay away [facility]. Patient has also been advised to [...] Estee Cobb LPN documented in this encounter [facility] 02-10-2024 History of Present illness Narrative Physical Therapy Evaluation Visit Patient Name: Raphael LUNAN: [id number] Today's Date: 02/11/2024 Encounter Diagnoses Name Primary? [...] and it pops a lot randomly. Precautions: [place] Subjective: left hip ant and lateral Pain: [...] to be instructed in home exercise program. [facility] Goals: To be met in 10 weeks [...] sign below. Date: documented in this encounter [facility] Healthcare Evaluation note No assessment inform ation available [facility] Work Phone: Evaluation note Diagnosis Onset Date Left hip pain acute [facility] Work Phone: Evaluation note* Diagnosis [...] content) DATE CREATED AUTHOR 03/22/2022 [facility] DATE CREATED AUTHOR AUTHOR'S ORGANIZ ATION 04/05/2024 [facility] DATE CREATED AUTHOR AUTHOR'S ORGANIZ ATION 07/03/2024 [facility] DATE CREATED AUTHOR AUTHOR'S ORGANIZ ATION 08/20/2024 [facility] EPIC Care Teams (unrecognized sec [...] December 01, 2023 End: December 01, 2023 [employer] Relationship Specialty Start Date End Date Jen Granados MD [address] [facility] [place] [address] PCP - General Family Medicine 03/10/23 [employer] Relationship Specialty Start Date End Date Jen Granados MD [address] [place] [address] PCP - General Family Medicine 03/10/23 [employer] Relationship Specialty Start Date End Date Jen Granados MD [address] [place] [address] PCP - General Family Medicine 03/10/23 [employer] Relationship Specialty Start Date End Date Jen Granados MD [address] [facility] [place] [address] PCP - General Family Medicine 03/10/23 [employer] Relationship Specialty Start Date End Date Jen Granados MD [address] [facility] [place] [phone] PCP - General Family Medicine 03/10/23 [employer] Relationship Specialty Start Date End Date Jen Granados MD [address] [facility] [place] [address] PCP - General Family Medicine 03/10/23 [employer] Relationship Specialty Start Date End Date Jen Granados MD [address] [facility] [place] [address] PCP - General Family Medicine 03/10/23 [employer] Relationship Specialty Start Date End Date Jen Granados MD [address] [place] [address] PCP - General Family Medicine 03/10/23 [employer] Relationship Specialty Start Date End Date Jen Granados MD [address] [facility] [place] [address] PCP - General Family Medicine 03/10/23 [employer] Relationship Specialty Start Date End Date Jen Granados MD [address] [place] [facility] [address] PCP - General Family Medicine 03/10/23 [employer] Relationship Specialty Start Date End Date Jen Granados MD [address] [place] [facility] [address] PCP - General Family Medicine 03/10/23 [employer] Relationship Specialty Start Date End Date Jen Granados MD [address] [place] [facility] [address] PCP - General Family Medicine 03/10/23 [employer] Relationship Specialty Start Date End Date Jen Granados MD [address] [place] [facility] [address] PCP - General Family Medicine 03/10/23 [employer] Relationship Specialty Start Date End Date Jen Granados MD [address] [place] [facility] [address] PCP - General Family Medicine 03/10/23 [employer] Relationship Specialty Start Date End Date Jen Granados MD [address] [place] [facility] [address] PCP - General Family Medicine 03/10/23 Team Status: Active Member Role Status Dates Jen Granados MD Primary Care Provider Active Start: April 29, 2024 Scooby Vega DO Attending Provider Active Start : April 29, 2024 Team Status: Active Member Role Status Dates Jne Granados MD Primary Care Provider Active Start: [...] June 25, 2024 End: June 25, 2024 [employer] Relationship Specialty Start Date End Date Jen Granados MD [address] [place] [facility] [place] [address] PCP - General Family Medicine 03/10/23 [employer] Relationship Specialty Start Date End Date Jen Granados MD [address] [place] [facility] [address] PCP - General Family Medicine 03/10/23 [employer] Relationship Specialty Start Date End Date Jen Granados MD [address] [place] [facility] [address] PCP - General Family Medicine 03/10/23 [employer] Relationship Specialty Start Date End Date Jen Granados MD [address] [place] [facility] [address] PCP - General Family Medicine 03/10/23 [employer] Relationship Specialty Start Date End Date Jen Granados MD [address] [place] [facility] [address] PCP - General Family Medicine 03/10/23 [employer] Relationship Specialty Start Date End Date Jen Granados MD [address] [place] [facility] [address] PCP - General Family Medicine [...] of left lower limb, excluding foot Procedures MD PHYSICAL THERAPY EVALUATION LOW COMPLEX 20 MINS Ashley Shin MD [address] [place] [address] Gretchen Moreno PT Referral ID Status Reason Start Date Expiration Date V isits Requested Visits Authorized [id number] Authorized 02/10/2024 08/08/2024 99 99 Reason Comments [...] BE BASED ON THE PRIMARY CLINICAL RECORDS. [facility] [employer] [facility]. provides no warranty or guarantee of the accuracy or completeness of information in this document.
[2024-08-23 18:12] VITALS: BP 110/71; PULSE 80
== END 2024-08-23 19:00 | disposition home or self-care (01) ==
LOC: FBCO 00:48 → FBC 18:05
PROVIDERS: PCP Family Medicine; Visit Provider Obstetrics & Gynecology
DX: O24.419 Gestational diabetes mellitus in pregnancy, unspecified control (principal); Z3A.35 35 weeks gestation of pregnancy
CPT/HCPCS: 59025

== ENCOUNTER 2024-08-24 15:00 | Outpatient (REF) | payer OTHER, SELFPAY ==
--- OUTSIDE RECORDS SUMMARY | 2024-08-24 15:08 | XMS_ITS | CCD ---
Author Organization [facility] Care Team Providers Care Shipyard Helper Name Role Phone DOREEN, DR HOFFMAN Attending [...] Unavailable Jen Granados MD Primary Care Provider [phone] Jae Cervantes DO Attending Provider Unavailab Jae Redd Admitting Unavailable Jae Cervantes Attending Unavailable Jen Granados Primary Care Unavailable Dm Vegay Admitting Unavailable GaryDmy Attending Unavailable GARYDMY Attending Unavailable GARYDMY Attending Unavailable GARYDMY Attending Unavailable EMELY HUNTER Attending Unavailable GARYDMY Attending Unavailable MORENO, GRETCHEN Attending Unavailable SHIN, [...] Translations: [AMOXICILLIN] Drug Allergy 3 GI intolerance [facility] (3 sources) 12 Hour Decongestant Allergy to substance [address] [facility] Medications Current Medications Medication Drug Class(es) [...] 02/12/2024 Discontinued (Other) omega-3 acid ethyl esters (retirement) 1000 mg oral capsule (3 sources) take [...] Facility OB BPP W NON-STRESS on 08-20-2024 [place] [address] Ultrasound Report Signed Patient: RAPHAEL ELIZABETH MR#: [id number] : 1985 Acct:[id number] Age/Sex: 38 / F ADM Date: 08/19/24 Loc: US Attending Dr: Scooby Vega D.O. Ordering Physician: Scooby Vega D.O. Date of Service: 08/19/24 Procedure(s): US OB BPP w non-stress Accession Number(s): [id number] cc: Jen Granados M.D.; Scooby Vega D.O. The [place] [id number] Patient Name: RAPHAEL ELIZABETH MRN: [facility]:[id number] date: 1985 Sex: F Assigned Patient Location: [facility] Current Patient Location: Accession/Order Number: [id number] Exam Date: 08/20/2024 08:58 Report Date: 08/20/2024 [...] Chan Hudson M.D.08/20/2024 9:03 AM Dictation Location: [place] [address] Electronically authenticated by: [id number] Y Date: 08/20/2024 09:03 Dictated By: Chan Hudson M.D. Signed By: 08/20/24904 DD/ 2 TD/TT: Exchange Administrator: [facility] Radiology Radiologdora guillen MD - 08/20/2024 [place] [address] Ultrasound Report Signed Patient: RAPHAEL ELIZABETH MR#: [id number] : 1985 Acct:[id number] Age/Sex: 38 / F ADM Date: 08/19/24 Loc: US Attending Dr: Scooby Vega D.O. Ordering Physician: Scooby Vega D.O. Date of Service: 08/19/24 Procedure(s): US OB BPP w non-stress Accession Number(s): [id number] cc: Jen Granados M.D.; Scooby Vega D.O. [place] [id number] Patient Name: RAPHAEL ELIZABETH MRN: [facility]:[id number] date: 1985 Sex: F Assigned Patient Location: [facility] Current Patient Location: Accession/Order Number: [id number] Exam Date: 08/20/2024 08:58 Report Date: 08/20/2024 [...] Chan Hudson M.D.08/20/2024 9:03 AM Dictation Location: [place] [address] Electronically authenticated by: [id number] Y Date: 08/20/2024 09:03 Dictated By: Chan Hudson M.D. Signed By: 08/20/24904 DD/ 2 TD/TT: Exchange Administrator: [facility] Radiology Study observation (narrative) [facility] US OB BPP W NON-STRESS Ordered By: Radiologist Radiology on 08-20-2024 [facility] Work Phone: Urinalysis macro (dipstick) panel (U)on 08-18-2024 Bilirubin, UA Negative Negative - 4(70) +++ mg/dL [facility] Blood, UA Negative Negative - 50 Ulises/mcL [facility] Clarity, UA Clear [facility] Color, UA Yellow [facility] Glucose, UA Negative Negative - 2000(110) ++++ mg/dL [facility] Interpretation and review of laboratory results Abnormal [facility] Ketones, UA Negative Negative - 160(16) ++++ mg/dL [facility] Leukocytes, UA Negative Negative - 500+++ Clair/mcL [facility] Nitrite, UA Negative Negative - Positive [facility] pH, UA 7 5 - 9 [facility] Protein, UA Trace Negative - 1999(20) ++++ mg/dL [facility] Spec Grav, UA 1.025 1 - 1.03 [facility] Urobilinogen, UA 0.2 0.2 - 12 mg/dL [facility] US OB BPP W NON-STRESS on 08-12-2024 [place] [address] Ultrasound Report Signed Patient: RAPHAEL ELIZABETH MR#: [id number] : 1985 Acct:[id number] Age/Sex: 38 / F ADM Date: 08/12/24 Loc: Attending Dr: Scooby Vega D.O. Ordering Physician: Scooby Vega D.O. Date of Service: 08/12/24 Procedure(s): US OB BPP w non-stress Accession Number(s): [id number] cc: Jen Granados M.D.; Scooby Vega D.O. [address] [address] Patient Name: RAPHAEL ELIZABETH MRN: [id number]:[id number] date: 1985 Sex: F Assigned Patient Location: [facility] Current Patient Location: Accession/Order Number: [id number] Exam Date: 08/12/2024 22:10 Report Date: 08/12/2024 22:12 At the request of: SCOOBY VEGA DO Procedure: US OB BPP w non-stress Biophysical profile. Reason for exam: GBM. COMPARISON: Biophysical profile 08/06/2024. TECHNIQUE: Transabdominal imaging of the gravid uterus was obtained. FINDINGS: Unit Control Worker reports the BPP is 8 out of 8. SIDDHARTHA is normal 11.2 cm. heart rate 142 bpm. US/US OB BPP w non-stress IMPRESSION: BPP 8 out of 8. Impression dictated by: Lucas Martin Jr., D.O.08/12/2024 10:12 PM Dictation Location: [place] [address] Electronically authenticated by: [id number] Y Date: 08/12/2024 22:12 Dictated By: Lucas Martin M.D. Signed By: 08/12/242213 DD/ 11 TD/TT: Exchange Administrator: [facility] Radiology, Radiologi MD wilmer - 08/12/2024 [place] [address] Ultrasound Report Signed Patient: RAPHAEL ELIZABETH MR#: [id number] : 1985 Acct:[id number] Age/Sex: 38 / F ADM Date: 08/12/24 Loc: US Attending Dr: Scooby Vega D.O. Ordering Physician: Scooby Vega D.O. Date of Service: 08/12/24 Procedure(s): US OB BPP w non-stress Accession Number(s): [id number] cc: Jen Granados M.D.; Scooby Vega D.O. The [place] [id number] Patient Name: RAPHAEL ELIZABETH MRN: [facility]:[id number] date: 1985 Sex: F Assigned Patient Location: [facility] Current Patient Location: Accession/Order Number: [id number] Exam Date: 08/12/2024 22:10 Report Date: 08/12/2024 22:12 At the request of: SCOOBY GARY DO Procedure: US OB BPP w non-stress Biophysical profile. Reason for exam: GBM. COMPARISON: Biophysical profile 08/06/2024. TECHNIQUE: Transabdominal imaging of the gravid uterus was obtained. FINDINGS: Unit Control Worker reports the BPP is 8 out of 8. SIDDHARTHA is normal 11.2 cm. heart rate 142 bpm. US/US OB BPP w non-stress IMPRESSION: BPP 8 out of 8. Impression dictated by: Lucas Martin Jr., D.O.08/12/2024 10:12 PM Dictation Location: [employer] Electronically authenticated by: [id number] Y Date: 08/12/2024 22:12 Dictated By: Lucas Martin M.D. Signed By: 08/12/242213 DD/ 11 TD/TT: Exchange Administrator: [facility] Radiology Study observation (narrative) [facility] US OB BPP W NON-STRESS Ordered By: Radiologist Radiology on 08-12-2024 [facility] Work Phone: US OB BPP W NON-STRESS on 08-06-2024 [place] [address] Ultrasound Report Signed Patient: RAPHAEL ELIZABETH MR#: [id number] : 1985 Acct:[id number] Age/Sex: 38 / F ADM Date: 08/05/24 Loc: US Attending Dr: Scooby Vega D.O. Ordering Physician: Scooby Vega D.O. Date of Service: 08/05/24 Procedure(s): US OB BPP w non-stress Accession Number(s): [id number] cc: Jen Granados M.D.; Scooby Vega D.O. The [address] [address] Patient Name: RAPHAEL ELIZABETH MRN: [id number]:[id number] date: 1985 Sex: F Assigned Patient Location: [facility] Current Patient Location: Accession/Order Number: [id number] Exam Date: 08/05/2024 19:09 Report Date: 08/06/2024 [...] Signed By: 08/06/24 0753 DD/ 0751 TD/TT: Exchange Administrator: [facility] Radiology, Radiologi MD wilmer - 08/06/2024 [place] [address] Ultrasound Report Signed Patient: RAPHAEL ELIZABETH MR#: [id number] : 1985 Acct:[id number] Age/Sex: 38 / F ADM Date: 08/05/24 Loc: US Attending Dr: Scooby Vega D.O. Ordering Physician: Scooby Vega D.O. Date of Service: 08/05/24 Procedure(s): US OB BPP w non-stress Accession Number(s): [id number] cc: Jen Granados M.D.; Scooby Vega D.O. The [address] [address] Patient Name: RAPHAEL ELIZABETH MRN: [facility]:[id number] date: 1985 Sex: F Assigned Patient Location: [facility] Current Patient Location: Accession/Order Number: [id number] Exam Date: 08/05/2024 19:09 Report Date: 08/06/2024 [...] Signed By: 08/06/24 0753 DD/ 075 TD/TT: Exchange Administrator: [facility] Radiology Study observation (narrative) [facility] US OB BPP W NON-STRESS Ordered By: Radiologist Radiology on 08-06-2024 [facility] Work Phone: US OB BPP W NON-STRESS on 08-01-2024 [place] [address] Ultrasound Report Signed Patient: RAPHAEL ELIZABETH MR#: [id number] : 1985 Acct:[id number] Age/Sex: 38 / F ADM Date: 07/29/24 Loc: US Attending Dr: Scooby Vega D.O. Ordering Physician: Scooby Vega D.O. Date of Service: 07/29/24 Procedure(s): US OB BPP w non-stress Accession Number(s): [id number] cc: Jen Granados M.D.; Scooby Vega D.O. [place] [id number] Patient Name: RAPHAEL ELIZABETH MRN: [id number] date: 1985 Sex: F Assigned Patient Location: [facility] Current Patient Location: Accession/Order Number: [id number] Exam Date: 07/29/2024 19:04 Report Date: 08/01/2024 [...] M.D. Signed By: 08/01/24713 DD/ 0 TD/TT: Exchange Administrator: [facility] Radiology, Radiologi MD wilmer - 08/01/2024 [place] [address] Ultrasound Report Signed Patient: RAPHAEL ELIZABETH MR#: [id number] : 1985 Acct:[id number] Age/Sex: 38 / F ADM Date: 07/29/24 Loc: US Attending Dr: Scooby Vega D.O. Ordering Physician: Scooby Vega D.O. Date of Service: 07/29/24 Procedure(s): US OB BPP w non-stress Accession Number(s): [id number] cc: Jen Granados M.D.; Scooby Vega D.O. The [address] [address] Patient Name: RAPHAEL ELIZABETH MRN: [facility]:[id number] date: 1985 Sex: F Assigned Patient Location: [facility] Current Patient Location: Accession/Order Number: [id number] Exam Date: 07/29/2024 19:04 Report Date: 08/01/2024 [...] M.D. Signed By: 08/01/2414 DD/ 0 TD/TT: Exchange Administrator: [facility] Radiology Study observation (narrative) [facility] US OB BPP W NON-STRESS Ordered By: Radiologist Radiology on 08-01-2024 [facility] Work Phone: Urinalysis macro (dipstick) panel (U)on 08-01-2024 Bilirubin, UA Negative Negative - 4(70) +++ mg/dL [facility] Blood, UA Negative Negative - 50 Ulises/mcL [facility] Clarity, UA Clear [facility] Color, UA Yellow [facility] Glucose, UA Negative Negative - 1999(110) ++++ mg/dL [facility] Interpretation and review of laboratory results Abnormal [facility] Ketones, UA Negative Negative - 160(16) ++++ mg/dL [facility] Leukocytes, UA Trace Negative - 500+++ Clair/mcL [facility] Nitrite, UA Negative Negative - Positive [facility] pH, UA 7.5 5 - 9 [facility] Protein, UA Negative Negative - 1999(20) ++++ mg/dL [facility] Spec Grav, UA 1.015 1 - 1.03 [facility] Urobilinogen, UA 0.2 0.2 - 12 mg/dL [facility] Urinalysis macro (dipstick) panel (U)on 07-18-2024 Bilirubin, UA Negative Negative - 4(70) +++ mg/dL [facility] Blood, UA Negative Negative - 50 Ulises/mcL [facility] Clarity, UA Clear [facility] Color, UA Yellow [facility] Glucose, UA Negative Negative - 1999(110) ++++ mg/dL [facility] Interpretation and review of laboratory results Normal [facility] Ketones, UA Negative Negative - 160(16) ++++ mg/dL [facility] Leukocytes, UA Negative Negative - 500+++ Clair/mcL [facility] Nitrite, UA Negative Negative - Positive [facility] pH, UA 7 5 - 9 [facility] Protein, UA Negative Negative - 1999(20) ++++ mg/dL [facility] Spec Grav, UA 1.025 1 - 1.03 [facility] Urobilinogen, UA 0.2 0.2 - 12 mg/dL [facility] ALL CBC WITH AUTO DIFFon BASOPHILS ABSOLUTE AUTO 0 [facility] Basophils/100 WBC (Bld) 0.2 % 0.2 - 2.0 % [facility] Eosinophils/100 WBC (Bld) 0.9 % 0.9 - 7.0 % [facility] Erythrocyte distribution width (RBC) [Ratio] 13 % 11.0 - 15.0 % [facility] Hematocrit (Bld) [Volume fraction] 32.2 % Low 36.0 - 48.0 % [facility] Hemoglobin (Bld) [Mass/Vol] 10.9 g/dL Low 12.0 - 16.0 g/dL [facility] IMMATURE GRANULOCYTES ABS AUTO 0.13 High [facility] Immature granulocytes/100 WBC (Bld) 1.4 % High 0.0 - 0.5 % [facility] Interpretation and review of laboratory results Abnormal [facility] LYMPHOCYTES ABSOLUTE AUTO 1.4 [facility] Lymphocytes/100 WBC (Bld) 15.4 % Low 20.5 - 60.0 % [facility] MCH (RBC) [Entitic mass] 32.7 pg 26.7 - 34.0 pg [facility] MCHC (RBC) [Mass/Vol] 33.9 g/dL 29.9 - 35.2 g/dL [facility] MCV (RBC) [Entitic vol] 96.7 fL 81.0 - 99.0 fL [facility] MONOCYTES ABSOLUTE AUTO 0.5 [facility] Monocytes/100 WBC (Bld) 4.8 % 1.7 - 12.0 % [facility] NEUTROPHILS ABSOLUTE AUTO 7.2 High [facility] Neutrophils/100 WBC (Bld) 77.3 % High 43.0 - 75.0 % [facility] Platelet mean volume (Bld) [Entitic vol] 9.2 fL Low 9.5 - 13.5 fL [facility] TB EO # 0.1 [facility] TB PLT [address] [facility] RBC 3.33 Low [facility] WBC 9.3 [facility] Urinalysis macro (dipstick) panel (U)on 06-30-2024 Bilirubin, UA Negative Negative - 4(70) +++ mg/dL [facility] Blood, UA Negative Negative - 50 Ulises/mcL [facility] Clarity, UA Clear [facility] Color, UA Yellow [facility] Glucose, UA Negative Negative - 2000(110) ++++ mg/dL [facility] Interpretation and review of laboratory results Abnormal [facility] Ketones, UA Negative Negative - 160(16) ++++ mg/dL [facility] Leukocytes, UA Trace Negative - 500+++ Clair/mcL [facility] Nitrite, UA Negative Negative - Positive [facility] pH, UA 8.5 5 - 9 [facility] Protein, UA Positive Negative - 1999(20) ++++ mg/dL [facility] Comment on above: trace Spec Grav, UA 1.015 1 - 1.03 [facility] Urobilinogen, UA 0.2 0.2 - 12 mg/dL [facility] Basophils/100 WBC Manual cnt (Bld)on 06-25-2024 Basophils/100 WBC (Bld) Basophils/100 leukocytes in Blood by Manual count Low 0.2-2.[address] [facility] Eosinophils/100 WBC Manual c nt (Bld)on 06-25-2024 Eosinophils/100 WBC (Bld) Eosinophils/100 leukocytes in Blood by Manual count 0.9-7.[address] [facility] Erythrocyte distribution wid th Auto (RBC) [Ratio]on 06-25-2024 Erythrocyte distribution width (RBC) [Ratio] Erythrocyte distribution width [Ratio] by Automated count 11.0-15.[address] [facility] Estimated glomerular filtrat ion rate (GFR) non- Americanon 06-25-2024 GFR/1.73 sq M.predicted among non-blacks MDRD (S/P/Bld) [Vol rate/Area] Estimated glomerular filtration rate (GFR) non- >=60 mL/min/1.73 m [address] [facility] Hematocrit Auto (Bld) [Volum e fraction]on 06-25-2024 Hematocrit (Bld) [Volume fraction] Hematocrit [Volume Fraction] of Blood by Automated count Low 36.0-48.[address] [facility] Hemoglobin [Mass/volume] in Bloodon 06-25-2024 Hemoglobin (Bld) [Mass/Vol] Hemoglobin [Mass/volume] in Blood Low 12.0-16.[address] [facility] Laboratory - Chemistry and C hemistry - challengeon 06-25-2024 Calcium [Mass/Vol] 8.2 mg/dL Low 8.5-10.1 [facility] Chloride [Moles/Vol] 99 mmol/L 98-[address] [facility] CO2 [Moles/Vol] 21.2 mmol/L 21.0-32.0 [facility] Creatinine [Mass/Vol] 0.89 mg/dL 0.55-1.[address] [facility] GFR/1.73 sq M.predicted MDRD (S/P/Bld) [Vol rate/Area] mL/min/{1.73_m2} >=60 mL/min/1.73 m [address] [facility] Glucose [Mass/Vol] 98 mg/dL 74-106 [facility] Potassium [Moles/Vol] 3.7 mmol/L 3.5-5.[address] [facility] Sodium [Moles/Vol] 130 mmol/L Low 136-145 [facility] Urea nitrogen [Mass/Vol] 7.0 mg/dL 7.0-18.[address] [facility] Urea nitrogen/Creatinine [Mass ratio] 7.9 mg/mg [facility] Bilirubin Ql (U) Negative NEGATIVE [facility] Glucose (U) [Mass/Vol] Negative NEGATIVE [facility] Ketones Ql (U) 15 mg/dL Abnormal NEGATIVE [facility] pH (U) 7.5 [pH] 5.0-9.[address] [facility] Specific gravity (U) [Rel density] 1.015 1.005-1.[address] [facility] Urobilinogen Qn (U) 1.0 {Ree'U}/dL 0.2-1.[address] [facility] Laboratory - Hematology and Cell countson 06-25-2024 Band form neutrophils/100 WBC (Bld) 2.0 % 0-[address] [facility] Lymphocytes/100 WBC (Bld) 2.0 % Low 20.5-60.[address] [facility] Monocytes/100 WBC (Bld) 5.0 % 1.7-12.[address] [facility] Laboratory - Microbiology an d Antimicrobial susceptibilityon 06-25-2024 SARS-CoV-2 (COVID-19) RNA JUAN ANTONIO+probe Ql (Unsp spec) Negative NEGATIVE [facility] Comment on above: This test has [...] Appearance (U) CLOUDY Abnormal CLEAR [facility] Color (U) DK YELLOW YELLOW [facility] Laboratory - Urinalysison Leukocyte esterase Test strip Ql (U) Negative NEGATIVE [facility] Nitrite Ql (U) Negative NEGATIVE [facility] Protein Ql (U) TRACE mg/dL NEG/TRACE [facility] Leukocytes [#/volume] correc leroy for nucleated erythrocytes in Blood by Automated counon 06-25-2024 WBC corrected for nucl RBC Auto (Bld) [#/Vol] Leukocytes [#/volume] corrected for nucleated erythrocytes in Blood by Automated coun 4.0-11.[address] [facility] MCH Auto (RBC) [Entitic mass ]on 06-25-2024 MCH (RBC) [Entitic mass] MCH [Entitic mass] by Automated count 26.7-34.[address] [facility] MCHC Auto (RBC) [Mass/Vol]on 06-25-2024 MCHC (RBC) [Mass/Vol] MCHC [Mass/volume] by Automated count 29.9-35.[address] [facility] MCV Auto (RBC) [Entitic vol] on 06-25-2024 MCV (RBC) [Entitic vol] MCV [Entitic volume] by Automated count 81.0-99.[address] [facility] No Panel Informationon 06-25 Absolute Basophils (Manual) 0.00 10 3/uL 0.00-0.[address] [facility] Band Neutrophils # (Manual) 0.2 10 3/uL 0.0-0.[address] [facility] Eosinophils # (Manual) 0.08 10 3/uL 0.00-0.[address] [facility] Lymphocytes # (Manual) 0.16 10 3/uL Low 1.20-3.[address] [facility] Monocytes # (Manual) 0.41 10 3/uL 0.30-0.[address] [facility] Segmented Neutrophils # (Manual) 7.38 10 3/uL High 1.4-6.[address] [facility] Urine Occult Blood Negative NEGATIVE [facility] Bedside Influenza Type A Antigen Positive Abnormal [facility] Comment on above: NOTE: Live attenuate d influenza vaccine viruses can cause apositive result for a rapid influenza diagnostic test ifadministered up to 7 days prior to rapid testing. Bedside Influenza Type B Antigen Negative [facility] Comment on above: Negative for Flu B p rotein antigen. Infection due to Flu Bcannot be ruled out. Flu B antigen in the sample may bebelow the detection limit of the test. Platelet mean volume Auto (B ld) [Entitic vol]on 06-25-2024 Platelet mean volume (Bld) [Entitic vol] Platelet mean volume [Entitic volume] in Blood by Automated count Low 9.5-13.[address] [facility] Platelets Auto (Bld) [#/Vol] on 06-25-2024 Platelets (Bld) [#/Vol] Platelets [#/volume] in Blood by Automated count 150-[address] [facility] RBC Auto (Bld) [#/Vol]on RBC (Bld) [#/Vol] Erythrocytes [#/volu me] in Blood by Automated count Low 4.20-5.[address] [facility] Segmented neutrophils/100 WB C Manual cnt (Bld)on 06-25-2024 Segmented neutrophils/100 WBC (Bld) Manual blood segmented neutrophils/100 leukocytes High 43.0-75.[address] [facility] Serum or plasma anion gap de terminationon 06-25-2024 Anion gap [Moles/Vol] Serum or plasma anion gap determination [facility] Urine Cultureon 06-25-2024 Bacteria identified Cx Nom (U) No Growth 2 Days PERFORMED BY: [facility] [address] [place] [address] PATHOLOGIST DOCTOR OF AUDIOLOGY DANTE PALACIOS M.D. Normal [facility] Comment on above: Performed By: #### C UU #### [facility] [address] IGP,APTIMA HPV,AGE GDLNon AGE GDLN ACOG TESTING Note . [facility] Comment on above: TESTS RESULT FLAG UN ITS REF RANGE LAB Clinician Provided Cytology Information Source.............Cervix No. of containers..01 ThinPrep Vial Age Algo ACOG Annel... FLAG LEGEND: L-Low Normal,H-High Normal,LL-Alert Low,HH-Alert High <-Panic Low,>-Panic High,A-Abnormal,AA-Critical Abnormal Performed at: [address] [address] Kathryn Maldonado MD, HPV APTIMA Negative Negative [facility] Comment on above: This nucleic acid am plification test detects fourteen high- risk HPV types (16,18,31,33,35,39,45,51,52,56,58,59,66,68) without differentiation. Performed at: =[address] [id number] Roll Hauler: Kathryn Maldonado MD, Phone: [phone] Performed at: [address] [id number] Roll Hauler: Kathryn Maldonado MD, Phone: [phone] IGP, APTIMA HPV, RFX 16/18,45 Note . [facility] Comment on above: TESTS RESULT FLAG UN ITS REF RANGE LAB DIAGNOSIS: 02 NEGATIVE FOR INTRAEPITHELIAL LESION OR MALIGNANCY. Specimen adequacy: 02 Satisfactory for evaluation. Endocervical and/or squamous metaplastic cells (endocervical component) are present. Performed by: 02 Thao Shankar, Range Master . 02 Note: Note 02 The Pap [...] Low,>-Panic High,A-Abnormal,AA-Critical Abnormal Performed at: [address] [address] Kathryn Maldonado MD, BRUSH-SPATULA CERVIX [facility] RECURRENT VAGINITIS (HTRX)on 05-05-2024 ATOPOBIUM VAGINAE 0 [facility] ATOPOBIUM VAGINAE Not detected [facility] BVAB 2,3 (BACTERIAL VAGINOSIS ASSOCIATED BACTERIA 2, 3); MOBILUNCUS SPP 0 [facility] BVAB 2,3 (BACTERIAL VAGINOSIS ASSOCIATED BACTERIA 2, 3); MOBILUNCUS SPP Not detected [facility] JED ALBICANS, PARAPSILOSIS, TROPICALIS 0 [facility] JED ALBICANS, PARAPSILOSIS, TROPICALIS Not detected [facility] JED GLABRATA 0 [facility] JED GLABRATA Not detected [facility] JED KRUSEI 0 [facility] JED KRUSEI Not detected [facility] Healthcare CHLAMYDIA TRACHOMATIS 0 [facility] CHLAMYDIA TRACHOMATIS Not detected [facility] GARDNERELLA VAGINALIS 0 [facility] GARDNERELLA VAGINALIS Not detected [facility] MEGASPHAERA (TYPES 1, 2) 0 [facility] MEGASPHAERA (TYPES 1, 2) Not detected [facility] Healthcare MYCOPLASMA GENITALIUM 0 [facility] MYCOPLASMA GENITALIUM Not detected [facility] NEISSERIA GONORRHOEAE 0 [facility] NEISSERIA GONORRHOEAE Not detected [facility] TRICHOMONAS VAGINALIS 0 [facility] TRICHOMONAS VAGINALIS Not detected [facility] Urinalysis macro (dipstick) panel (U)on 05-03-2024 Bilirubin, UA Negative Negative - 4(70) +++ mg/dL [facility] Blood, UA Negative Negative - 50 Ulises/mcL [facility] Clarity, UA Clear [facility] Color, UA Yellow [facility] Glucose, UA Negative Negative - 1999(110) ++++ mg/dL [facility] Interpretation and review of laboratory results Normal [facility] Ketones, UA Negative Negative - 160(16) ++++ mg/dL [facility] Leukocytes, UA Negative Negative - 500+++ Clair/mcL [facility] Nitrite, UA Negative Negative - Positive [facility] pH, UA 0.5 5 - 9 [facility] Protein, UA Negative Negative - 1999(20) ++++ mg/dL [facility] Spec Grav, UA 1.025 1 - 1.03 [facility] Urobilinogen, UA 1.0 0.2 - 12 mg/dL [facility] Human papilloma virus 16+18+ 31+33+35+39+45+51+52+56+58+59+66+68 DNA [Presence] in Denis 05-02-2024 HPV 16+18+31+33+35+39+4 5+51+52+56+58+59+66 +68 DNA Probe+sig amp Ql (Cvx) Human papilloma virus 16+18+31+33+35+39+45+51+52+5 6+58+59+66+68 DNA [Presence] in Cer Negative [facility] Comment on above: This nucleic acid am plification test detects fourteen high- risk HPV types (16,18,31,33,35,39,45,51,52,56,58,59,66,68)without differentiation.Performed at: = - [facility] [id number] Director: Kathryn Maldonado MD, Phone: [phone] at: [facility] [id number] Director: Kathryn Maldonado MD, Phone: [phone] No Panel Informationon 05-02 HPV High Risk Other Comment Note . [facility] Comment on above: TESTS RESULT FLAG UN ITS REF RANGE LAB JESE GNOSIS: 02 NEGATIVE FOR INTRAEPITHELIAL LESION OR MALIGNANCY.Specimen adequacy: 02 Satisfactory for evaluation. Endocervical and/or squamous metaplastic cells (endocervical component) are present.Performed by: 02 Thao Shankar, Range Master. 02Note: Note 02 The Pap smear is [...] Low,>-Panic High,A-Abnormal,AA-Critical Abnormal --Performed at:02 WB [facility] [address] [place] [address] Kathryn Maldonado MD, Reference Lab Test Patient Age Note . [facility] Comment on above: TESTS RESULT FLAG UN ITS REF RANGE LAB Clinician Provided Cytology Information Source.............Cervix No. of containers..01 ThinPrep VialAge Richie SANDERS Annel... FLAG LEGEND: L-Low Normal,H-High Normal,LL-Alert Low,HH-Alert High <-Panic Low,>-Panic High,A-Abnormal,AA-Critical Abnormal --Performed at:01 =G [address] [address] Kathryn Maldonado MD, AFP, SERUM, OPEN SPINA BIFID Aon 05-01-2024 AFP MOM 1.18 . [facility] AFP VALUE 61.8 ng/mL . [facility] COMMENT: Comment . [facility] Comment on above: Cydney Rodriguez , Ph.D., [facility] Director References: Available Upon Request. Multiples Of Median Cutoffs For AFP Elevations Chiang 2.5 Black 2.8 IDD 2.0 Twins 4.5 Abbreviation Definitions IDD - Insulin Dep Diabetes OSBR - Open Spina Bifida Risk For further inquiries contact [facility] at [phone]. This test was developed and its performance characteristics determined by [facility]. It has not been cleared or approved by the Food and Drug Administration. Performed at: - [facility] [address] [facility], [place], [place] [id number] Roll Hauler: Marissa Kovacs [facility], Phone: [phone] GEST. AGE ON COLLECTION DATE 19.0 . weeks [facility] GESTAT. AGE BASED ON LMP . [facility] Comment on above: Recalculations are n ot recommended when gestational dating by LMP and ultrasound are within 10 days. INSULIN DEP DIABETES No . [facility] INTERPRETATION Comment . [facility] Comment on above: Interpretation: Scre en [...] Customer Services to discuss available options. The [employer] recommends amniocentesis be offered to women age 35 and older. [age] [facility] MULTIPLE GESTATION No . [facility] OSBR RISK 1 IN 6916 . [facility] RACE . [facility] RESULTS Report . [facility] TEST RESULTS: Negative . [facility] WEIGHT 135 . lbs [facility] N N LMP [id number] 3 15 N 1 Y 135 N N N N N White/ [facility] Alpha-fetoprotein (AFP) paige urement (janxiylv-bk-hiavwf)on 04-29-2024 AFP [MoM] Alpha-fetoprotein (A FP) measurement (pghoxkrm-ct-rzynwc) . [facility] Assess gestational ageon Gestational age Assess gestational age . [facility] Estimation of maternal age-s pecific risk of Down syndrome birthon [birth year]-29-2024 Age [Time] Estimation of matern al age-specific risk of Down syndrome . [facility] Insulin dependent diabetes m ellitus detectionon 04-29-2024 Insulin dependent diabetes mellitus Ql Insulin dependent diabetes mellitus detection . [facility] Interpretation of serum or p lasma second trimester quad maternal screen (narrative reon 04-29-2024 Second trimester quad maternal screen Darshan [Interp] Interpretation of serum or plasma second trimester quad maternal screen (narrative re . [facility] Comment on above: Interpretation: Scre en [...] Triple Screen Comment Comment . [facility] Comment on above: Cydney Rodriguez , Ph.D., DABCCDirectorReferences: Available Upon Request.Multiples Of Median Cutoffs For AFP ElevationsSingleton 2.5 Black 2.8IDD 2.0 Twins 4.5 Abbreviation DefinitionsIDD - Insulin Dep DiabetesOSBR - Open Spina Bifida RiskFor further inquiries contact [facility] [facility] at [phone].This test was developed and its performance characteristicsdetermined by [facility]. It has not been cleared or approvedby the Food and Drug Administration.Performed at: [facility] [employer] [id number] [place], [place] [id number] Director: Marissa Kovacs [facility], Phone: [phone] Alpha Fetoprotein Results Received Report . [facility] Gestational Age Calculation Method LMP . [facility] Comment on above: Recalculations are n ot recommended when gestational datingby LMP and ultrasound are within 10 days. Maternal Quad Test Risk [address] [facility] Maternal Race . [facility] Multiple No . [facility] Serum or plasma qpfxe-0-ddil protein measurement (mass/volume)on 04-29-2024 AFP [Mass/Vol] Serum or plasma rkcqc-2-avtszdxlasv measurement (mass/volume) . [facility] BOX TEST SENT OUTon BOX TEST SENT OUT Y [facility] UNITY BOX [facility] ALL CBC WITH AUTO DIFFon BASOPHILS ABSOLUTE AUTO 0.0 [facility] Basophils/100 WBC (Bld) 0.5 % 0.2 - 2.0 % [facility] Eosinophils/100 WBC (Bld) 0.9 % 0.9 - 7.0 % [facility] Erythrocyte distribution width (RBC) [Ratio] 11.9 % 11.0 - 15.0 % [facility] Hematocrit (Bld) [Volume fraction] 37.3 % 36.0 - 48.0 % [facility] Hemoglobin (Bld) [Mass/Vol] 12.7 g/dL 12.0 - 16.0 g/dL [facility] IMMATURE GRANULOCYTES ABS AUTO 0.02 [facility] Immature granulocytes/100 WBC (Bld) 0.3 % 0.0 - 0.5 % [facility] Interpretation and review of laboratory results Abnormal [facility] LYMPHOCYTES ABSOLUTE AUTO 1.8 [facility] Lymphocytes/100 WBC (Bld) 27.4 % 20.5 - 60.0 % [facility] MCH (RBC) [Entitic mass] 32.2 pg 26.7 - 34.0 pg [facility] MCHC (RBC) [Mass/Vol] 34.0 g/dL 29.9 - 35.2 g/dL [facility] MCV (RBC) [Entitic vol] 94.4 fL 81.0 - 99.0 fL [facility] MONOCYTES ABSOLUTE AUTO 0.3 [facility] Monocytes/100 WBC (Bld) 5.1 % 1.7 - 12.0 % [facility] NEUTROPHILS ABSOLUTE AUTO 4.4 [facility] Neutrophils/100 WBC (Bld) 65.8 % 43.0 - 75.0 % [facility] Platelet mean volume (Bld) [Entitic vol] 9.4 fL Low 9.5 - 13.5 fL [facility] TBH EO # 0.1 [facility] TB PLT [address] [facility] RBC 3.95 [facility] WBC 6.6 [facility] HCG ( test) Ql (U)o n 02-12-2024 Interpretation and review of laboratory results Abnormal [facility] Preg Test, Ur Positive [facility] Urinalysis macro (dipstick) panel (U)on 02-12-2024 Bilirubin, UA Negative Negative - 4(70) +++ mg/dL [facility] Blood, UA Negative Negative - 50 Ulises/mcL [facility] Clarity, UA Clear [facility] Color, UA Yellow [facility] Glucose, UA Negative Negative - 2000(110) ++++ mg/dL [facility] Interpretation and review of laboratory results Normal [facility] Ketones, UA Negative Negative - 160(16) ++++ mg/dL [facility] Leukocytes, UA Negative Negative - 500+++ Clair/mcL [facility] Nitrite, UA Negative Negative - Positive [facility] pH, UA 6.5 5 - 9 [facility] Protein, UA Negative Negative - 1999(20) ++++ mg/dL [facility] Spec Grav, UA 1.015 1 - 1.03 [facility] Urobilinogen, UA 1.0 0.2 - 12 mg/dL [facility] No Panel Informationon 11-29 Human Chorionic Gonadotropin, Quant 2 mIU/mL [facility] Comment on above: 5-50 0.2-1 JCRK58-50 0 1-2 VGNPF961-2,000 2-3 JXWAX417-28,000 3-4 WEEKS1,000-50,000 4-5 WEEKS10,000-100,000 5-6 WEEKS15,000-200,000 6-8 WEEKS10,000-100,000 2-3 MONTHS No Panel Informationon 11-22 Human Chorionic Gonadotropin, Quant 3 mIU/mL [facility] Comment on above: 5-50 0.2-1 TLBU04-78 0 1-2 OHVGU551-2,000 2-3 VFUJL057-72,000 3-4 WEEKS1,000-50,000 4-5 WEEKS10,000-100,000 5-6 WEEKS15,000-200,000 6-8 WEEKS10,000-100,000 2-3 MONTHS No Panel Informationon 11-16 Human Chorionic Gonadotropin, Quant 6 mIU/mL [facility] Comment on above: 5-50 0.2-1 QIDT79-55 0 1-2 VVUEO775-7,000 2-3 TMDLQ050-19,000 3-4 WEEKS1,000-50,000 4-5 WEEKS10,000-100,000 5-6 WEEKS15,000-200,000 6-8 WEEKS10,000-100,000 2-3 MONTHS No Panel Informationon 11-08 Human Chorionic Gonadotropin, Quant 27 mIU/mL [facility] Comment on above: 5-50 0.2-1 URWX05-42 0 1-2 QJCSW466-8,000 2-3 OACDO371-52,000 3-4 WEEKS1,000-50,000 4-5 WEEKS10,000-100,000 5-6 WEEKS15,000-200,000 6-8 WEEKS10,000-100,000 2-3 MONTHS Basophils Auto (Bld) [#/Vol] on 10-23-2023 Basophils (Bld) [#/Vol] 0.0 10 3/uL 0.0-0.[address] [facility] Basophils/100 WBC Auto (Bld) on 10-23-2023 Basophils/100 WBC (Bld) 0.8 % 0.2-2.[address] [facility] Eosinophils/100 WBC Auto (Bl d)on 10-23-2023 Eosinophils/100 WBC (Bld) 1.4 % 0.9-7.[address] [facility] Erythrocyte distribution wid th Auto (RBC) [Ratio]on 10-23-2023 Erythrocyte distribution width (RBC) [Ratio] 11.9 % 11.0-15.[address] [facility] Hematocrit Auto (Bld) [Volum e fraction]on 10-23-2023 Hematocrit (Bld) [Volume fraction] 36.0 % 36.0-48.[address] [facility] Hemoglobin [Mass/volume] in Bloodon 10-23-2023 Hemoglobin (Bld) [Mass/Vol] 11.8 g/dL 12.0-16.[address] [facility] Krzysztof 10-23-2023 L Specimen: [id number] R eceived: 10/26/23 Status: MAIA Newell Num: [id number] Spec Type: Surgical Subm Dr: Scooby Vega Tissues: A Products of Conception - Spontaneous or Missed (POC) Procedures: HE/3, Gross/Micro L4 Age/ Patient Sex Location Account Attending Physician Raphael Elizabeth 37/F LABELL [id number] Scooby Vega SPEC NUM: [id number] RECD: 10/26/23 STATUS: [facility] NUM: [id number] JANIE: 10/23/[address]: Scooby Vega ENTERED: 10/26/[address]: Héctor,Lab SPEC TYPE: Surgical DEPT: POOJA HUOSE ORDERED: HE/3, Gross/Micro L4 ORDERED: HE/3, Gross/Micro [...] cm possible area of villous tissue identified. Herb Digger sections to include the possible villous tissue are submitted in A1?A3. Clinical history: Missed CPT Codes 51893 -------- -------- Specimen: [id number] Received: 10/26/23 Status: MAIA Newell Num: [id number] Spec Type: Surgical Subm Dr: Scooby Vega Tissues: A Products of Conception - Spontaneous or Missed (POC) Procedures: HE/Cihno, Gross/Micro L4 -------- Patient: Raphael Elizabeth [id number] (Continued) -------- Signed (signature on file) Dante Palacios MD 10/27/23 1511 Normal [facility] - Hematology and Cell countson 10-23-2023 Immature granulocytes/100 WBC (Bld) 0.2 % 0.0-0.[address] [facility] Leukocytes [#/volume] correc leroy for nucleated erythrocytes in Blood by Automated counon 10-23-2023 WBC corrected for nucl RBC Auto (Bld) [#/Vol] 5.1 10 3/uL 4.0-11.[address] [facility] Lymphocytes Auto (Bld) [#/Vo l]on 10-23-2023 Lymphocytes (Bld) [#/Vol] 1.7 10 3/uL 1.2-3.[address] [facility] Lymphocytes/100 WBC Auto (Bl d)on 10-23-2023 Lymphocytes/100 WBC (Bld) 32.8 % 20.5-60.[address] [facility] MCH Auto (RBC) [Entitic mass ]on 10-23-2023 MCH (RBC) [Entitic mass] 31.1 pg 26.7-34.[address] [facility] MCHC Auto (RBC) [Mass/Vol]on 10-23-2023 MCHC (RBC) [Mass/Vol] 32.8 g/dL 29.9-35.[address] [facility] MCV Auto (RBC) [Entitic vol] on 10-23-2023 MCV (RBC) [Entitic vol] 95.0 fL 81.0-99.[address] [facility] Monocytes Auto (Bld) [#/Vol] on 10-23-2023 Monocytes (Bld) [#/Vol] 0.3 10 3/uL 0.3-0.[address] [facility] Monocytes/100 WBC Auto (Bld) on 10-23-2023 Monocytes/100 WBC (Bld) 5.5 % 1.7-12.[address] [facility] Neutrophils Auto (Bld) [#/Vo l]on 10-23-2023 Neutrophils (Bld) [#/Vol] 3.0 10 3/uL 1.4-6.[address] [facility] Neutrophils/100 WBC Auto (Bl d)on 10-23-2023 Neutrophils/100 WBC (Bld) 59.3 % 43.0-75.[address] [facility] No Panel Informationon 10-22 Eosinophils # (Auto) 0.1 10 3/uL 0.0-0.[address] [facility] Immature Granulocyte # (Auto) 0.01 10 3/uL 0.00-0.[address] [facility] Platelet mean volume Auto (B ld) [Entitic vol]on 10-23-2023 Platelet mean volume (Bld) [Entitic vol] 9.0 fL 9.5-13.[address] [facility] Platelets Auto (Bld) [#/Vol] on 10-23-2023 Platelets (Bld) [#/Vol] 182 10 3/uL 150-[address] [facility] RBC Auto (Bld) [#/Vol]on RBC (Bld) [#/Vol] 3.79 10 6/uL 4.20-5.40 [facility] No Panel Informationon 10-11 Human Chorionic Gonadotropin, Quant 32767 mIU/mL [facility] Comment on above: 5-50 0.2-1 YPAA93-74 0 1-2 RMEJQ442-3,000 2-3 IKUOO209-07,000 3-4 WEEKS1,000-50,000 4-5 WEEKS10,000-100,000 5-6 WEEKS15,000-200,000 6-8 WEEKS10,000-100,000 2-3 MONTHS No Panel Informationon 10-06 Human Chorionic Gonadotropin, Quant 75687 mIU/mL [facility] Comment on above: 5-50 0.2-1 PWQE08-97 0 1-2 BPCGX695-5,000 2-3 ZDLAH860-68,000 3-4 WEEKS1,000-50,000 4-5 WEEKS10,000-100,000 5-6 WEEKS15,000-200,000 6-8 WEEKS10,000-100,000 2-3 MONTHS No Panel Informationon 10-04 Human Chorionic Gonadotropin, Quant 92961 mIU/mL [facility] Comment on above: 5-50 0.2-1 ZISV25-08 0 1-2 LCWKN119-5,000 2-3 WXMNK766-87,000 3-4 WEEKS1,000-50,000 4-5 WEEKS10,000-100,000 5-6 WEEKS15,000-200,000 6-8 WEEKS10,000-100,000 2-3 MONTHS PAP ACOG PANEL 2: 30 to 65on 03-11-2022 . . Normal [facility] Comment on above: Result Comment: Perf ormed at: WB Performed By: #### [id number] #### [facility] [address] [address] [address] Danni Jacobs Age Gdln ACOG Testing 30-65 [facility] Comment on above: Performed By: #### [id number] #### [facility] [address] [place] [address] Dr. Danni Jacobs DIAGNOSIS: Comment [facility] Comment on above: Result Comment: NEGA TIVE FOR INTRAEPITHELIAL LESION OR MALIGNANCY. THIS SPECIMEN WAS RESCREENED PART OF OUR SOFTWARE DEVELOPMENT ENGINEER PROGRAM. Performed at: WB Performed By: #### [id number] #### [facility] [address] [address] [address] Danni Jacobs HPV Aptima Negative Normal Negative [facility] Comment on above: Result Comment: This nucleic acid amplification test detects fourteen high-risk HPV types (16,18,31,33,35,39,45,51,52,56,58,59,66,68) without differentiation. Performed at: =G Performed By: #### [id number] #### [facility] [address] [address] [address] Danni Jacobs Methodology: Comment [facility] Comment on above: Result Comment: This liquid based ThinPrep(R) pap test was screened with the use of an image guided system. Performed at: WB Performed By: #### [id number] #### [facility] [address] [place] [address] Dr. Danni Jacobs Note: Comment [facility] Comment on above: Result Comment: The Pap smear is a screening test designed to aid in the detection of premalignant and malignant conditions of the uterine cervix. It is not a diagnostic procedure and should not be used as the sole means of detecting cervical cancer. Both false-positive and false-negative reports do occur. . Performed at: WB Performed By: #### [id number] #### [facility] [address] [address] [address] Danni Jacobs Performed by: Comment Normal [facility] Comment on above: Result Comment: Rocky Hull, Range Master (ASCP) Performed at: WB Performed By: #### [id number] #### [facility] [address] [place] [address] Dr. Danni Jacobs QC reviewed by: Comment Normal [facility] Comment on above: Result Comment: Betzaida Ge, Supervisory Range Master (ASCP) Performed at: WB Performed By: #### [id number] #### [facility] [address] [place] [address] Dr. Danni Jacobs Specimen adequacy: Comment Normal [facility] Comment on above: Result Comment: Sati sfactory for evaluation. Endocervical and/or squamous metaplastic cells (endocervical component) are present. Performed at: WB Performed By: #### 4 [id number] #### [facility] [address] [place] [address] Dr. Danni Jacobs GLUCOSE BLOODon 04-22-2021 Glucose [Mass/Vol] 99 mg/dL Normal 74-106 [facility] Comment on above: Performed By: #### G YOSEPH, LIPID #### [facility] [address] [place] [address] Dr. Danni Jacobs LIPID PROFILEon 04-22-2021 CHOL-HDL RATIO NORM SEE BELOW Normal [facility] Comment on above: Result Comment: 3.3 - 4.4 LOW RISK 4.4 - 7.1 AVERAGE RISK 7.1 - 11.0 MODERATE RISK >11.0 HIGH RISK Performed By: #### G YOSEPH, LIPID #### [facility] [address] [place] [address] Dr. Danni Jacobs Cholesterol [Mass/Vol] 157 mg/dL Normal <=200 [facility] Comment on above: Performed By: #### G YSOEPH, LIPID #### [facility] [address] [address] [address] Danni Jacobs Cholesterol in HDL [Mass/Vol] 74 mg/dL Normal [facility] Comment on above: Performed By: #### G YOSEPH, LIPID #### [facility] [address] [address] [address] Danni Jacobs Cholesterol in LDL [Mass/Vol] 71.2 mg/dL Normal [facility] Comment on above: Performed By: #### G YOSEPH, LIPID #### [facility] [address] [address] [address] Danni Jacobs Cholesterol.total/C holesterol in HDL [Mass ratio] 2.1 {ratio} Normal [facility] Comment on above: Performed By: #### G YOSEPH, LIPID #### [facility] [address] [address] [address] Danni Jacobs HDL NORMAL > or = 60 mg/dl - LO W CARDIOVASCULAR RISK <40 mg/dl - HIGH CARDIOVASCULAR RISK Normal [facility] Comment on above: Performed By: #### G YOSEPH, LIPID #### [facility] [address] [address] [address] Danni Jacobs LDL CALC NORMAL SEE BELOW Normal [facility] Comment on above: Result Comment: <100 mg/dl OPTIMAL 100 - 129 mg/dl NEAR OR ABOVE OPTIMAL 130 - 159 mg/dl BORDERLINE HIGH 160 - 189 mg/dl HIGH >190 mg/dl VERY HIGH Performed By: #### G YOSEPH, LIPID #### [facility] [address] [address] [address] Danni Jacobs Triglyceride [Mass/Vol] 59 mg/dL Normal <=150 [facility] Comment on above: Performed By: #### G YOSEPH, LIPID #### [facility] [address] [address] [address] Danni Jacobs VLDL CALC 11.8 mg/dL Normal [facility] Comment on above: Performed By: #### G YOSEPH, LIPID #### [facility] [address] [address] [address] Danni Jacobs Vital Signs Date Time Vital Sign Value Performing Clinician Philippe mera 08-18-2024 09:28-0500 Body mass index (BMI) [Ratio] 23.62 kg/m2 Scooby Gary DO Work Phone: [facility] 08-18-2024 09:28-0500 Body weight 68.4 kg Scooby Gary DO Work Phone: [facility] 08-18-2024 09:28-0500 Diastolic blood pressure 72 mm[Hg] Scooby Gary DO Work Phone: [facility] 08-18-2024 09:28-0500 Systolic blood pressure 110 mm[Hg] Scooby Gary DO Work Phone: [facility] 08-01-2024 13:55-0500 Body mass index (BMI) [Ratio] 22.87 kg/m2 Scooby Gayr DO Work Phone: [facility] 08-01-2024 13:55-0500 Body weight 66.22 kg Scooby Gary DO Work Phone: [facility] 08-01-2024 13:55-0500 Diastolic blood pressure 74 mm[Hg] Scooby Gary DO Work Phone: [facility] 08-01-2024 13:55-0500 Systolic blood pressure 116 mm[Hg] Scooby Gary DO Work Phone: [facility] 07-18-2024 15:05-0500 Body mass index (BMI) [Ratio] 22.84 kg/m2 Scooby Gary DO Work Phone: [facility] 07-18-2024 15:05-0500 Body weight 66.13 kg Scooby Gary DO Work Phone: [facility] 07-18-2024 15:05-0500 Diastolic blood pressure 70 mm[Hg] Scooby Gary DO Work Phone: [facility] 07-18-2024 15:05-0500 Systolic blood pressure 118 mm[Hg] Scooby Gary DO Work Phone: [facility] 06-30-2024 12:01-0500 Body mass index (BMI) [Ratio] 22.26 kg/m2 Scooby Gary DO Work Phone: [facility] 06-30-2024 12:01-0500 Body weight 64.47 kg Scooby Gary DO Work Phone: [facility] 06-30-2024 12:01-0500 Diastolic blood pressure 70 mm[Hg] Scooby Gary DO Work Phone: [facility] 06-30-2024 12:01-0500 Systolic blood pressure 110 mm[Hg] Scooby Gary DO Work Phone: [facility] 06-02-2024 10:45-0500 Body mass index (BMI) [Ratio] 21.9 kg/m2 Scooby Gary DO Work Phone: [facility] 06-02-2024 10:45-0500 Body weight 63.41 kg Scooby Gary DO Work Phone: [facility] 06-02-2024 10:45-0500 Diastolic blood pressure 72 mm[Hg] Scooby Gary DO Work Phone: [facility] 06-02-2024 10:45-0500 Systolic blood pressure 116 mm[Hg] Scooby Gary DO Work Phone: [facility] 05-02-2024 16:20-0500 Body mass index (BMI) [Ratio] 21.61 kg/m2 Emely COBB Work Phone: [facility] 05-02-2024 16:20-0500 Body weight 62.6 kg Emely COBB Work Phone: [facility] 05-02-2024 16:20-0500 Diastolic blood pressure 68 mm[Hg] Emely COBB Work Phone: [facility] 05-02-2024 16:20-0500 Systolic blood pressure 120 mm[Hg] Emely COBB Work Phone: [facility] 04-29-2024 11:40-0500 Body weight Jen Granados MD Work Phone: [facility] 04-04-2024 14:55-0400 Body mass index (BMI) [Ratio] 21.27 kg/m2 Scooby Gary DO Work Phone: [facility] 04-04-2024 14:55-0400 Body weight 61.6 kg Scooby Gary DO Work Phone: [facility] 04-04-2024 14:55-0400 Diastolic blood pressure 70 mm[Hg] Scooby Gary DO Work Phone: [facility] 04-04-2024 14:55-0400 Systolic blood pressure 116 mm[Hg] Scooby Gary DO Work Phone: [facility] 03-07-2024 10:47-0400 Body mass index (BMI) [Ratio] 20.07 kg/m2 Scooby Gary DO Work Phone: [facility] 03-07-2024 10:47-0400 Body weight 58.12 kg Scooby Gary DO Work Phone: [facility] 03-07-2024 10:47-0400 Diastolic blood pressure 68 mm[Hg] Scooby Gary DO Work Phone: [facility] 03-07-2024 10:47-0400 Systolic blood pressure 114 mm[Hg] Scooby Gary DO Work Phone: [facility] 12-01-2023 16:10-0400 Body height 170.18 cm Scooby Gary Work Phone: [facility] 12-01-2023 16:10-0400 Body mass index (BMI) [Ratio] 19.5 kg/m2 Scooby Gary Work Phone: [facility] 12-01-2023 16:10-0400 Body weight 56.69 kg Scooby Gary Work Phone: [facility] 12-01-2023 16:10-0400 Diastolic blood pressure 78 mm[Hg] Scooby Gary Work Phone: [facility] 12-01-2023 16:10-0400 Systolic blood pressure 112 mm[Hg] Scooby Gary Work Phone: [facility] Encounters Encounter Date Encounter Type Care [...] Bamboo flowsheet Scooby Gary DO Work Phone: [facility] Start: 06-30-2024 End: 06-30-2024 ambulatory SCOOBY GARY Not Available Start: 06-30-2024 End: 06-30-2024 flow sheet Scooby Gary DO Work Phone: [facility] Comment on above: 27 weeks gestation o f ; Second trimester ; Gestational diabetes mellitus (GDM), antepartum, gestational diabetes method of control unspecified Start: 06-25-2024 End: 06-25-2024 ambulatory Jen Granados MD Work Phone: [facility] Work Phone: Start: 06-25-2024 End: 06-25-2024 Departed Referred Jen Granados MD Work Phone: [facility] Start: 06-25-2024 Non-patient / Non-visit Jen Granados MD Work Phone: [facility] Work Phone: Start: 06-02-2024 End: 06-02-2024 Bamboo flowsheet Scooby Gary DO Work Phone: [facility] Start: 06-02-2024 End: 06-02-2024 Bamboo flowsheet Scooby Gary DO Work Phone: [facility] Start: 06-02-2024 End: 06-02-2024 ambulatory SCOOBY GARY Not Available Start: 06-02-2024 End: 06-02-2024 flow sheet Scooby Gary DO Work Phone: [facility] Comment on above: Second trimester pre gnancy; 23 weeks gestation of ; with normal glucose tolerance test (GTT); Diabetes mellitus screening; Gestational diabetes mellitus (GDM), antepartum, gestational diabetes method of control unspecified; Elevated glucose tolerance test Start: 05-02-2024 Non-patient / Non-visit Jen Granados MD Work Phone: [facility] Work Phone: Start: [...] / Non-visit Jen Granados MD Work Phone: [facility] Work Phone: Start: 04-04-2024 [...] [facility] Start: 04-04-2024 End: 04-04-2024 ambulatory [facility] Start: 04-01-2024 End: 04-01-2024 [...] Start: 03-03-2024 End: 03-03-2024 Bamboo flowsheet Gretchen Mroeno PT [facility] Start: 03-03-2024 End: [...] CI PT Start: 02-08-2024 End: 02-08-2024 ambulatory [facility] Start: 02-08-2024 ambulatory [facility] Start: 12-01-2023 End: 12-01-2023 ambulatory Scooby Gary Work Phone: [facility] Work Phone: Start: 12-01-2023 End: 12-01-2023 Patient encounter procedure Scooby Gary Work Phone: [facility] Work Phone: Start: 11-30-2023 Non-patient / Non-visit Scooby Gary Work Phone: [facility] Work Phone: Start: 11-23-2023 Non-patient / Non-visit Scooby Gary Work Phone: [facility] Work Phone: Start: 11-17-2023 Non-patient / Non-visit Scooby Gary Work Phone: [facility] Work Phone: Start: 11-09-2023 Non-patient / Non-visit Scooby Gary Work Phone: [facility] Work Phone: Start: 11-09-2023 End: 11-09-2023 ambulatory EMELY HUNTER Not Available Start: 10-23-2023 End: 10-23-2023 ambulatory Scooby Gary [facility] Work Phone: Start: 10-23-2023 End: 10-23-2023 Departed Referred Scooby Gary Work Phone: [facility] Start: 10-23-2023 Non-patient / Non-visit Scooby Gary Work Phone: [facility] Work Phone: Start: 10-12-2023 Non-patient / Non-visit Scooby Gary Work Phone: [facility] Work Phone: Start: 10-07-2023 Non-patient / Non-visit Scooby Gary Work Phone: [facility] Work Phone: Start: 10-05-2023 Non-patient / Non-visit Scooby Vega Work Phone: [facility] Work Phone: Start: 03-03-2022 End: 03-03-[address] SCOOBY VEGA Facility:[facility] Start: 04-28-2021 Encounter for genera l adult medical examination without abnormal findings DR DALTON LOGAN [facility] Start: 04-22-2021 End: 04-23-[address] [...] AM EDT Routine [facility] [address] [place] [address] Scooby Vega, DO [address] [place], [place] [id number] [facility] Start: 09-05-2024 End: 09-05-2024 Patient encounter procedure 09/05/2024 1:30 PM EDT Routine [facility] [address] [place] [address] Scooby Vega, DO [address] [place] [address] [facility] Start: 08-24-2024 End: 08-24-2024 Patient encounter procedure 08/24/2024 1:20 PM EST Routine [facility] [address] [facility] [place] [address] Scooby Vega, DO [address] [place] [address] [facility] Start: 08-18-2024 End: 08-18-2025 US for US OB follow up transabdominal approach Imaging Routine Multigravida of advanced maternal age in third trimester Expected: 08/18/2024, Expires: 08/18/2025 [facility] Work Phone: Comment on above: Expected: 08/18/2024 , Expires: 08/18/2025 Start: 08-18-2024 End: 08-18-2024 Patient encounter procedure 08/18/2024 9:20 AM EST Routine [facility] [address] [facility] [place] [address] Scooby Vega, DO [address] [place] [address] [facility] Start: 08-01-2024 End: 08-01-2024 Patient encounter procedure 08/01/2024 1:20 PM EST Routine [facility] [address] [facility] [place] [address] Scooby Vega, DO [address] [place] [address] [facility] Start: 07-18-2024 End: 07-18-2024 Patient encounter procedure 07/18/2024 2:30 PM EST Routine [facility] [address] [facility] [place] [address] Scooby Vega, DO [address] [place] [address] [facility] Start: 07-18-2024 End: 07-18-2025 US biophysical profile w non stress test US biophysical profile w non stress test Imaging Routine 30 weeks gestation of Third trimester Expected: 07/18/2024 (Approximate), Expires: 07/18/2025 [facility] Work Phone: Comment on above: Expected: 07/18/2024 (Approximate), Expires: 07/18/2025 Start: 06-30-2024 End: 06-30-2025 US biophysical profile w non stress test US biophysical profile w non stress test Imaging Routine Gestational diabetes mellitus (GDM), antepartum, gestational diabetes method of control unspecified Expected: 06/30/2024 (Approximate), Expires: 06/30/2025 [facility] Comment on above: Expected: 06/30/2024 (Approximate), Expires: 06/30/2025 Start: 06-30-2024 End: 06-30-2025 US for US OB follow up transabdominal approach Imaging Routine Gestational diabetes mellitus (GDM), antepartum, gestational diabetes method of control unspecified Expected: 06/30/2024, Expires: 06/30/2025 [facility] Work Phone: Comment on above: Expected: 06/30/2024 , Expires: 06/30/2025 Start: 06-30-2024 End: 06-30-2024 Patient encounter procedure 06/30/2024 11:50 AM EST Routine [facility] [address] [place] [id number] Scooby Vega, DO [address] [place] [address] [facility] Start: 06-25-2024 Urine culture [facility] Start: 06-25-2024 Bacteria identified in Urine by Culture Urine Culture [facility] Start: 06-02-2024 End: 06-02-2025 CBC panel [...] mellitus screening Expected: 06/02/2024 (Approximate), Expires: 06/02/2025 [facility] Comment on above: Expected: 06/02/2024 (Approximate), Expires: 06/02/2025 Start: 06-02-2024 End: 06-02-2024 Patient encounter procedure 06/02/2024 10:10 AM EST Routine [facility] [address] [place] [phone] Scooby Vega DO [address] [place], [place] [id number] [facility] Start: 05-02-2024 End: 05-02-2024 Patient encounter procedure 05/02/2024 3:30 PM EST Routine [facility] [address] [phone] Emely Hunter PA [address] [place] [address] [facility] Start: 05-02-2024 End: 10-30-2024 Alpha fetoprotein, maternal Alpha fetoprotein, maternal Lab Routine Second trimester 19 weeks gestation of Expected: 05/02/2024 (Approximate), Expires: 10/30/2024 [facility] Comment on above: Expected: 05/02/2024 (Approximate), Expires: [...] [address] [place] [address] Scooby Vega DO [address] [place] [address] [facility] Start: 04-04-2024 End: 04-04-2024 [...] Treatment [facility] [address] [facility] [address] [place] [address] Gretchen Moreno, PT [facility] Start: 03-23-2024 End: 03-23-2024 ambulatory 03/23/2024 1:00 PM EDT Treatment [facility] [address] [facility] [address] [place] [address] Gretchen Moreno, PT [facility] Start: 03-18-2024 End: 03-18-2024 ambulatory 03/18/2024 1:30 PM EDT Treatment [facility] [address] [facility] [address] [place] [address] Gretchen Moreno, PT [facility] Start: 03-11-2024 End: 03-11-2024 ambulatory 03/11/2024 1:30 PM EDT Treatment [facility] [address] [place] [address] [place] [address] Gretchen Moreno, PT [facility] Start: 03-07-2024 End: 03-07-2024 Patient encounter procedure 03/07/2024 10:10 AM EDT Routine [facility] [address] [place] [address] Scooby Vega, DO [address] [place] [address] [facility] Start: 03-03-2024 End: 03-03-2024 ambulatory 03/03/2024 10:30 AM EDT Treatment [facility] [address] [place] [address] [place] [address] Gretchen Moreno, PT [facility] Start: 02-26-2024 End: 02-26-2024 ambulatory 02/26/2024 1:30 PM EDT Treatment [facility] [address] [place] [address] [place] [address] Gretchen Moreno, PT Arrived [facility] Comment on above: Arrived Start: 02-25-2024 End: 02-25-2024 ambulatory 02/25/2024 10:30 AM EDT Treatment [facility] [address] [facility] [address] [place] [address] Gretchen Moreno, PT [facility] Start: 02-17-2024 End: 02-17-2024 ambulatory 02/17/2024 12:00 PM EDT Treatment [facility] [address] [place] [address] [place] [address] Gretchen Moreno, PT [facility] Start: [...] [address] [facility] [place] [address] [facility] Start: 02-12-2024 End: 02-12-2024 Professional / ancillary services management 02/12/2024 10:00 AM EDT Ancillary Procedure [facility] [address] [facility] [address] [facility] Start: 02-10-2024 End: 02-10-2024 ambulatory 02/10/2024 5:00 PM EDT Evaluation [facility] [address] [facility] [address] [place] [address] Gretchen Moreno, PT Arrived [facility] [...] exam with routine gynecological exam Ordered: 05/02/2024 [facility] Comment on above: Ordered: 05/02/2024 Hemoglobin A1c/Hemoglobin.total in Blood Hemoglobin A1c Lab Routine Missed menses Ordered: 02/12/2024 [facility] Comment on above: Ordered: 02/12/2024 Hepatitis B virus surface Ag [Presence] in Serum or Plasma by Immunoassay Hepatitis B surface antigen Lab Routine Missed menses Ordered: 02/12/2024 [facility] Comment on above: Ordered: 02/12/2024 Hepatitis C virus Ab [Presence] in Serum or Plasma by Immunoassay Hepatitis C antibody Lab Routine Missed menses Ordered: 02/12/2024 [facility] Comment on above: Ordered: 02/12/2024 HIV-1/HIV-2 antigen/antibody combination immunoassay HIV-1 and HIV-2 antibodies Lab Routine Missed menses Ordered: 02/12/2024 [facility] Comment on above: Ordered: 02/12/2024 Human papilloma viru s DNA [Presence] in Unspecified specimen by Probe with amplification HPV DNA probe, amplified Microbiology Routine Well woman exam with routine gynecological exam Ordered: 05/02/2024 [facility] Comment on above: Ordered: 05/02/2024 Neisseria gonorrhoea e DNA [Presence] in Unspecified specimen by JUAN ANTONIO with probe detection Neisseria gonorrhea DNA probe, direct Lab Routine STD exposure Ordered: 05/02/2024 [facility] Comment on above: Ordered: 05/02/2024 Reagin Ab [Presence] in Serum by RPR RPR Lab Routine Missed menses Ordered: 02/12/2024 [facility] Comment on above: Ordered: 02/12/2024 Rubella antibody, IgG Rubella an tibody, IgG Lab Routine Missed menses Ordered: 02/12/2024 [facility] Comment on above: Ordered: 02/12/2024 SURESWAB(R) ADVANCED VAGINITIS PLUS, TMA SURESWAB(R) ADVANCED VAGINITIS PLUS, TMA Pathology and Cytology Routine Vaginal discharge Ordered: 05/02/2024 [facility] Work Phone: Comment on above: Ordered: 05/02/2024 XR Hip - left 2 Views [facility] Payers Date Payer Category Payer Private Health Insurance ESTELA Decker [id number] 2022 Unknown NILAM Decker [place] [id number] 2022-Present [phone] [address] [place] [address] [id number] 1987 Unknown [id number] 2.16.840.1.363739.3.579.2 .593 1987 Unknown [id number] 2.16.840.1.055479.3.579.2 .593 1987 Unknown [id number] 2.16.840.1.995644.3.579.2 .1286 1987 Unknown [id number] 2.16.840.1.745586.3.579.2 .1286 1987 Unknown [id number] 2.16.840.1.982813.3.579.2 .128 1987 Unknown [id number] 2.16.840.1.625810.3.579.2 .1259 1987 Unknown [id number] 2.16.840.1.547277.3.579.2 .1259 1987 Unknown [id number] 2.16.840.1.592373.3.579.2 .1258 1987 Unknown [id number] 2.840.1.950430.3.579.2 .1258 1987 Unknown [id number] 2.16840.1.488809.3.579.2 .1258 1987 Unknown [id number] 2.840.1.809695.3.579.2 .1258 1987 Unknown [id number] 2.840.1.081627.3.579.2 .1258 1987 Unknown [id number] 2.840.1.068561.3.579.2 .1258 1987 Unknown [id number] 2.840.1.400000.3.579.2 .1258 1987 Unknown [id number] 2.840.1.329464.3.579.2 .1258 1987 Unknown [id number] 2.840.1.931140.3.579.2 .1258 1987 Unknown [id number] 2.0.1.941961.3.579.2 .1258 1987 Unknown [id number] 2.840.1.217680.3.579.2 .1258 1987 Unknown [id number] 2.840.1.585801.3.579.2 .1258 1987 Unknown [id number] 2.840.1.349303.3.579.2 .1258 1987 Unknown [id number] 2.840.1.339137.3.579.2 .1258 1987 Unknown [id number] 2.840.1.621365.3.579.2 .1258 1987 Unknown [id number] 2.840.1.594534.3.579.2 .1258 1959 Unknown [id number] Social History Date Type Detail Facility Tobacco smoking stat [facility] Unknown if ever smoked [facility] Work Phone: Start: 1985 Sex Assigned At Female [facility] Start: 02-26-2023 [facility] Start: 11-09-2023 History of Social function [facility] Start: 11-09-2023 Tobacco use panel [facility] Start: 01-01-2024 [facility] Start: 1985 Sex assigned at Not on file [facility] Tobacco smoking stat [facility] Unknown if ever smoked [facility] Work Phone: Start: 06-27-2024 [facility] Medical Equipment Procedure Code Equipment Code Equipment Origin al Text Equipment Identifier Dates 1 strip by In Vi tro route Daily Use in the morning prior to breakfast, 1 hour after each meal for a total of 4times daily. [id number] Start: 06-02-2024 End: 07-02-2024 1 each by In Vit ro route Daily Use to check FSBS four times daily [id number] Start: 06-02-2024 End: 07-02-2024 Goals Date Patient Goal Desired Activity /State Personal health goal Clinical Notes 02-10-2024 to 08-18-2024 Kalie Loera LPN - 08/18/2024 9:20 AM Abel Loera [employer] - 08/01/2024 1:20 PM Abel Loera LPN [...] nursing note reviewed. Exam conducted with a film historian present. Vitals: Estimated body mass index is [...] Scooby Vega DO documented in this encounter [facility] 08-01-2024 History of Present illness Narrative Reason [...] 81 mg, Daily Blood Glucose Monitoring Suppl (D-MoPals Glucometer) w/Device kit 1 kit, Does not [...] nursing note reviewed. Exam conducted with a film historian present. Vitals: Estimated body mass index is [...] Scooby Vega DO documented in this encounter [facility] 07-18-2024 History of Present illness Narrative [...] nursing note reviewed. Exam conducted with a film historian present. Vitals: Estimated body mass index is [...] of:Emely Hunter PA-C documented in this encounter [facility] 06-30-2024 History of Present illness Narrative [...] 81 mg, Daily Blood Glucose Monitoring Suppl (D-MoPals Glucometer) w/Device kit 1 kit, Does not [...] Scooby Vega DO documented in this encounter [facility] 06-02-2024 History of Present illness Narrative [...] nursing note reviewed. Exam conducted with a film historian present. Vitals: Estimated body mass index is [...] Scooby Vega DO documented in this encounter [facility] 05-02-2024 History of Present illness Narrative Reason [...] nursing note reviewed. Exam conducted with a film historian present. Vitals: Estimated body mass index is [...] obtained without difficulty and patient was given [facility] order to have obtained. Orders Placed This [...] of: JORDYN Fonseca documented in this encounter [facility] 04-04-2024 History of Present illness Narrative [...] nursing note reviewed. Exam conducted with a film historian present. Vitals: Estimated body mass index is [...] Aspirin. Discussed again in regards to seeing [facility] & referral will be completed. Patient to have NST/BPP starting at 32 weeks gestation. Patient will have Anatomy Scan done at [facility]. Patient is Rh Negative and [...] Scooby Vega DO documented in this encounter [facility] 04-01-2024 History of Present illness Narrative [...] and it pops a lot randomly. Precautions: [place] Subjective: Pt states overall, ROM has improved. [...] to be instructed in home exercise program. [facility] Goals: To be met in 10 weeks [...] sign below. Date: documented in this encounter [facility] 03-23-2024 History of Present illness Narrative [...] and it pops a lot randomly. Precautions: [place] Subjective: Pt states range of motion of [...] to be instructed in home exercise program. Senior Care Goals: To be met in 10 weeks [...] sign below. Date: documented in this encounter [facility] 03-18-2024 History of Present illness Narrative [...] and it pops a lot randomly. Precautions: [place] Subjective: Pt states she feels like her [...] to be instructed in home exercise program. Crusher Goals: To be met in 10 weeks [...] sign below. Date: documented in this encounter [facility] 03-11-2024 History of Present illness Narrative [...] and it pops a lot randomly. Precautions: [place] Subjective: Pt states overall she believes hip [...] to be instructed in home exercise program. Senior Care Goals: To be met in 10 weeks [...] sign below. Date: documented in this encounter [facility] 03-07-2024 History of Present illness Narrative [...] nursing note reviewed. Exam conducted with a film historian present. Vitals: Estimated body mass index is [...] or undercooked meat, and stay away from [facility]. Patient has been consulted regarding any further do's and don'ts of . Patient voiced understanding and all questions and concerns were answered. Follow Up: Patient is to return in 4 weeks for routine OB appointment. Documented by Kalie Loera LPN on behalf of: Scooby Vega DO documented in this encounter [facility] 03-03-2024 History of Present illness Narrative [...] and it pops a lot randomly. Precautions: Den[place] Subjective: Pt states she has been doing [...] to be instructed in home exercise program. Senior Care Goals: To be met in 10 weeks [...] sign below. Date: documented in this encounter [facility] 02-26-2024 History of Present illness Narrative [...] and it pops a lot randomly. Precautions: [place] Subjective: Pt states she was able to [...] to be instructed in home exercise program. Senior Care Goals: To be met in 10 weeks [...] sign below. Date: documented in this encounter [facility] 02-17-2024 History of Present illness Narrative [...] and it pops a lot randomly. Precautions: [place] Subjective: Pt states she has not done [...] to be instructed in home exercise program. Senior Care Goals: To be met in 10 weeks [...] sign below. Date: documented in this encounter [facility] 02-12-2024 History of Present illness Narrative [...] or undercooked meat, and stay away from [facility]. Patient has also been advised to [...] Estee Cobb LPN documented in this encounter [facility] 02-10-2024 History of Present illness Narrative Physical Therapy Evaluation Visit Patient Name: Raphael LUNAN: [id number] Today's Date: 02/11/2024 Encounter Diagnoses Name Primary? [...] and it pops a lot randomly. Precautions: [place] Subjective: left hip ant and lateral Pain: [...] to be instructed in home exercise program. Senior Care Goals: To be met in 10 weeks [...] sign below. Date: documented in this encounter [facility] Healthcare Evaluation note No assessment inform ation available [facility] Work Phone: Evaluation note Diagnosis Onset Date Left hip pain acute [facility] Work Phone: Evaluation note* Diagnosis Pain of [...] DATE CREATED AUTHOR AUTHOR'S ORGANIZ ATION 07/03/2024 [facility] DATE CREATED AUTHOR AUTHOR'S ORGANIZ ATION 08/20/2024 [facility] EPIC Care Teams (unrecognized [...] December 01, 2023 End: December 01, 2023 Shipyard Helper Relationship Specialty Start Date End Date Jen Granados MD [address] [facility] [place] [address] PCP - General Family Medicine 03/10/23 Shipyard Helper Relationship Specialty Start Date End Date Jen Granados MD [address] [place] [address] PCP - General Family Medicine 03/10/23 Shipyard Helper Relationship Specialty Start Date End Date Jen Granados MD [address] [place] [address] PCP - General Family Medicine 03/10/23 Shipyard Helper Relationship Specialty Start Date End Date Jen Granados MD [address] [facility] [place] [address] PCP - General Family Medicine 03/10/23 Shipyard Helper Relationship Specialty Start Date End Date Jen Granados MD [address] [facility] [place] [address] PCP - General Family Medicine 03/10/23 Shipyard Helper Relationship Specialty Start Date End Date Jen Granados MD [address] [facility] [place] [address] PCP - General Family Medicine 03/10/23 Shipyard Helper Relationship Specialty Start Date End Date Jen Granados MD [address] [facility] [place] [address] PCP - General Family Medicine 03/10/23 Shipyard Helper Relationship Specialty Start Date End Date Jen Granados MD [address] [place] [address] PCP - General Family Medicine 03/10/23 Shipyard Helper Relationship Specialty Start Date End Date Jen Granados MD [address] [facility] [place] [address] PCP - General Family Medicine 03/10/23 Shipyard Helper Relationship Specialty Start Date End Date Jen Granados MD [address] [place] [facility] [address] PCP - General Family Medicine 03/10/23 Shipyard Helper Relationship Specialty Start Date End Date Jen Granados MD [address] [place] [facility] [address] PCP - General Family Medicine 03/10/23 Shipyard Helper Relationship Specialty Start Date End Date Jen Granados MD [address] [place] [facility] [address] PCP - General Family Medicine 03/10/23 Shipyard Helper Relationship Specialty Start Date End Date Jen Granados MD [address] [place] [facility] [address] PCP - General Family Medicine 03/10/23 Shipyard Helper Relationship Specialty Start Date End Date Jen Granados MD [address] [place] [facility] [address] PCP - General Family Medicine 03/10/23 Shipyard Helper Relationship Specialty Start Date End Date Jen Granados MD [address] [place] [facility] [address] PCP - General Family Medicine 03/10/23 Team [...] June 25, 2024 End: June 25, 2024 aJe Cervantes DO Attending Provider Active S tart: June 25, 2024 End: June 25, 2024 Shipyard Helper Relationship Specialty Start Date End Date Jen Granados MD [address] [place] [facility] [address] PCP - General Family Medicine 03/10/23 Shipyard Helper Relationship Specialty Start Date End Date Jen Granados MD [address] [place] [facility] [address] PCP - General Family Medicine 03/10/23 Shipyard Helper Relationship Specialty Start Date End Date Jen Granados MD [address] [place] [facility] [address] PCP - General Family Medicine 03/10/23 Shipyard Helper Relationship Specialty Start Date End Date Jen Granados MD [address] [place] [facility] [address] PCP - General Family Medicine 03/10/23 Shipyard Helper Relationship Specialty Start Date End Date Jen Granados MD [address] [place] [facility] [address] PCP - General Family Medicine 03/10/23 Shipyard Helper Relationship Specialty Start Date End Date Jen Granados MD [address] [place] [facility] [address] PCP - General Family Medicine 03/10/23 [...] of left lower limb, excluding foot Procedures [facility] PHYSICAL THERAPY EVALUATION LOW COMPLEX 20 MINS Ashley Shin MD [address] [place] [address] Gretchen Moreno PT Referral ID Status Reason Start Date Expiration Date V isits Requested Visits Authorized [id number] Authorized 02/10/2024 08/08/2024 99 99 Reason Comments [...] BE BASED ON THE PRIMARY CLINICAL RECORDS. [facility] [employer] [facility]. provides no warranty or guarantee of the accuracy or completeness of information in this document.
== END 2024-08-24 15:01 | disposition home or self-care (01) ==
LOC: LAB 15:00
PROVIDERS: PCP Family Medicine; Visit Provider Obstetrics & Gynecology
DX: Z34.93 Encounter for supervision of normal pregnancy, unspecified, third trimester (principal)
CPT/HCPCS: 36415; 87081

== ENCOUNTER 2024-08-26 01:48 | Outpatient (OUT) | payer OTHER, SELFPAY ==
--- NOTE | 2024-08-26 | US_ITS ---
The [address] [address] Patient Name: RAPHAEL GAMA MRN: [facility]:[id number] date: 1985 Sex: F Assigned Patient Location: Current Patient Location: Accession/Order Number: [id number] Exam Date: 08/27/2024 00:28 Report Date: 08/27/2024 00:35 At the request of: BEVERLY SAHA DO Procedure: US OB growth CLINICAL INFORMATION: Gestational diabetes mellitus O24.419 ULTRASOUND OB GROWTH COMPARISON: 07/02/2024 There is a single intrauterine gestation in cephalic presentation. There is cardiac and somatic activity with heart rate of 143 bpm. The amniotic fluid index measures 14.3 cm which is in low normal range. The following measurements were obtained: Biparietal diameter 9.0 cm 36 weeks 4 days 73% Head circumference 32.9 cm 37 weeks 3 days 55% Abdominal circumference 31.6 cm 35 weeks 4 days 46% Femur length 7.2 cm 36 weeks 6 days 69% The composite ultrasound age based on these measurements is 36 weeks 4 days +/- 2 weeks 4 days. The estimated weight is 6 lbs. 5 oz. +/- 15 ounces. US/US OB BPP w non-stress IMPRESSION: SINGLE LIVE INTRAUTERINE GESTATION WITH ULTRASOUND AGE OF 36 WEEKS 4 DAYS. APPROPRIATE INTERVAL GROWTH. BIOPHYSICAL PROFILE: COMPARISON: 08/19/2024 FINDINGS: TONE: 1 or more episodes of activity extension and flexion of extremity or opening and closing of the hand [Y] 2/2 GROSS BODY MOVEMENTS: 3 or more discrete body or limb movements [Y] 2/2 BREATHING MOVEMENTS: 1 or more episodes of breathing lasting at least 30 seconds [Y] 2/2 SIDDHARTHA: A single deepest vertical pocket of amniotic fluid greater than 2 cm [Y] 2/2 SIDDHARTHA: 14.3cm . This is in low normal range. Total score: / IMPRESSION: NORMAL BIOPHYSICAL PROFILE. Impression dictated by: Belle Long M.D.08/27/2024 12:35 AM Dictation Location: [place] [address] Electronically authenticated by: [id number] Y Date: 08/27/2024 00:35
--- NOTE | 2024-08-26 | US_ITS ---
[address] [address] Patient Name: RAPHAEL GAMA MRN: [facility]:[id number] date: 1985 Sex: F Assigned Patient Location: [facility] Current Patient Location: Accession/Order Number: [id number] Exam Date: 08/27/2024 00:28 Report Date: 08/27/2024 00:35 At the request of: BEVERLY SAHA DO Procedure: US OB growth CLINICAL INFORMATION: Gestational diabetes mellitus O24.419 ULTRASOUND OB GROWTH COMPARISON: 07/02/2024 There is a single intrauterine gestation in cephalic presentation. There is cardiac and somatic activity with heart rate of 143 bpm. The amniotic fluid index measures 14.3 cm which is in low normal range. The following measurements were obtained: Biparietal diameter 9.0 cm 36 weeks 4 days 73% Head circumference 32.9 cm 37 weeks 3 days 55% Abdominal circumference 31.6 cm 35 weeks 4 days 46% Femur length 7.2 cm 36 weeks 6 days 69% The composite ultrasound age based on these measurements is 36 weeks 4 days +/- 2 weeks 4 days. The estimated weight is 6 lbs. 5 oz. +/- 15 ounces. US/US OB growth IMPRESSION: SINGLE LIVE INTRAUTERINE GESTATION WITH ULTRASOUND AGE OF 36 WEEKS 4 DAYS. APPROPRIATE INTERVAL GROWTH. BIOPHYSICAL PROFILE: COMPARISON: 08/19/2024 FINDINGS: TONE: 1 or more episodes of activity extension and flexion of extremity or opening and closing of the hand [Y] 2/2 GROSS BODY MOVEMENTS: 3 or more discrete body or limb movements [Y] 2/2 BREATHING MOVEMENTS: 1 or more episodes of breathing lasting at least 30 seconds [Y] 2/2 SIDDHARTHA: A single deepest vertical pocket of amniotic fluid greater than 2 cm [Y] 2/2 SIDDHARTHA: 14.3cm . This is in low normal range. Total score: 01/27 IMPRESSION: NORMAL BIOPHYSICAL PROFILE. Impression dictated by: Belle Long M.D.08/27/2024 12:35 AM Dictation Location: [place] [address] Electronically authenticated by: [id number] Y Date: 08/27/2024 00:35
--- OUTSIDE RECORDS SUMMARY | 2024-08-26 01:52 | XMS_ITS | CCD ---
Author Organization [facility] Care Team Providers Care Junior Recruiter Name Role Phone DOREEN, DR HOFFMAN Attending [...] Unavailable Jen Granados MD Primary Care Provider [phone] Jae Cervantes DO Attending Provider Unavailab Jae [...] Translations: [AMOXICILLIN] Drug Allergy 3 GI intolerance [facility] (3 sources) 12 Hour Decongestant Allergy to substance 3 Hives [facility] Medications Current Medications Medication Drug Class(es) Dates [...] ethyl esters (retirement) 1000 mg oral capsule (6 sources) take 1 capsule by mouth in [...] Active MV-Min-Fe Fum-FA-DH A ( 1 PO) (6 sources) MV-Min- Fe Fum-FA-DHA ( 1 PO) Take by mouth Active Completed/Discontinued Medications Medication Drug Class(es) Dates Sig (Normalized) Sig (Original) magnesium citrate (19 sources) Start: 03-07-2024 End: 04-04-2024 Magnesium Citrate [...] of ] 07-18-2024 Episodic Residual codes; unclassified (13 sources) Gestation period, 32 weeks; Translations: [32 weeks gestation of ] Onset: 08-01-2024 08-01-2024 Episodic Residual codes; unclassified (8 sources) Gestation period, 34 weeks; Translations: [34 weeks gestation of ] Onset: 08-18-2024 08-18-2024 Episodic Residual codes; unclassified (2 sources) Gestation period, 35 weeks; Translations: [35 weeks gestation of ] 08-24-2024 Episodic Unclassified (1 source) New Patient Onset: [...] Range Facility Urinalysis macro (dipstick) panel (U)on 08-24-2024 Bilirubin, UA Negative Negative - 4(70) +++ mg/dL [facility] Blood, UA Negative Negative - 50 Ulises/mcL [facility] Clarity, UA Clear [facility] Color, UA Yellow [facility] Glucose, UA Negative Negative - 2000(110) ++++ mg/dL [facility] Interpretation and review of laboratory results Abnormal [facility] Ketones, UA Negative Negative - 160(16) ++++ mg/dL [facility] Leukocytes, UA Trace Negative - 500+++ Clair/mcL [facility] Nitrite, UA Negative Negative - Positive [facility] pH, UA 7 5 - 9 [facility] Protein, UA Negative Negative - 1999(20) ++++ mg/dL [facility] Spec Grav, UA 1.015 1 - 1.03 [facility] Urobilinogen, UA 0.2 0.2 - 12 mg/dL [facility] US OB BPP W NON-STRESS on 08-20-2024 [place] [address] Ultrasound Report Signed Patient: RAPHAEL ELIZABETH MR#: [id number] : 1985 Acct:[id number] Age/Sex: 38 / F ADM Date: 08/19/24 Loc: US Attending Dr: Scooby Vega D.O. Ordering Physician: Scooby Vega D.O. Date of Service: 08/19/24 Procedure(s): US OB BPP w non-stress Accession Number(s): [id number] cc: Jen Granados M.D.; Scooby Vega D.O. [address] [address] Patient Name: RAPHAEL ELIZABETH MRN: [id number] date: 1985 Sex: F Assigned Patient Location: [facility] Current Patient Location: Accession/Order Number: [id number] Exam Date: 08/20/2024 08:58 Report Date: 08/20/2024 [...] Chan Hudson M.D.08/20/2024 9:03 AM Dictation Location: [place] [address] Electronically authenticated by: [id number] Y Date: 08/20/2024 09:03 Dictated By: Chan Hudson M.D. Signed By: 08/20/24904 DD/ 2 TD/TT: Towel Distributor: [facility] Radiology, Radiologi MD wilmer - 08/20/2024 [place] [address] Ultrasound Report Signed Patient: RAPHAEL ELIZABETH MR#: [id number] : 1985 Acct:[id number] Age/Sex: 38 / F ADM Date: 08/19/24 Loc: US Attending Dr: Scooby Vega D.O. Ordering Physician: Scooby Vega D.O. Date of Service: 08/19/24 Procedure(s): US OB BPP w non-stress Accession Number(s): [id number] cc: Jen Granados M.D.; Scooby Vega D.O. The [address] [address] Patient Name: RAPHAEL ELIZABETH MRN: [facility]:[id number] date: 1985 Sex: F Assigned Patient Location: [facility] Current Patient Location: Accession/Order Number: [id number] Exam Date: 08/20/2024 08:58 Report Date: 08/20/2024 [...] Chan Hudson M.D.08/20/2024 9:03 AM Dictation Location: [place] Electronically authenticated by: [id number] Y Date: 08/20/2024 09:03 Dictated By: Chan Hudson M.D. Signed By: 08/20/24904 DD/ 2 TD/TT: Towel Distributor: [facility] Radiology Study observation (narrative) [facility] OB BPP W NON-STRESS Ordered By: Radiologist Radiology on 08-20-2024 [facility] Work Phone: Urinalysis macro (dipstick) panel (U)on 08-18-2024 Bilirubin, UA Negative Negative - 4(70) +++ mg/dL [facility] Blood, UA Negative Negative - 50 Ulises/mcL [facility] Clarity, UA Clear [facility] Color, UA Yellow [facility] Glucose, UA Negative Negative - 2000(110) ++++ mg/dL [facility] Interpretation and review of laboratory results Abnormal [facility] Ketones, UA Negative Negative - 160(16) ++++ mg/dL [facility] Leukocytes, UA Negative Negative - 500+++ Clair/mcL [facility] Nitrite, UA Negative Negative - Positive [facility] pH, UA 7 5 - 9 [facility] Protein, UA Trace Negative - 2000(20) ++++ mg/dL [facility] Spec Grav, UA 1.025 1 - 1.03 [facility] Urobilinogen, UA 0.2 0.2 - 12 mg/dL [facility] US OB BPP W NON-STRESS on 08-12-2024 The [place] [id number] Ultrasound Report Signed Patient: RAPHAEL ELIZABETH MR#: [id number] : 1985 Acct:[id number] Age/Sex: 38 / F ADM Date: 08/12/24 Loc: US Attending Dr: Scooby Vega D.O. Ordering Physician: Scooby Vega D.O. Date of Service: 08/12/24 Procedure(s): US OB BPP w non-stress Accession Number(s): [id number] cc: Jen Granados M.D.; Scooby Vega D.O. The [address] [address] Patient Name: RAPHAEL ELIZABETH MRN: [facility]:[id number] date: 1985 Sex: F Assigned Patient Location: [facility] Current Patient Location: Accession/Order Number: [id number] Exam Date: 08/12/2024 22:10 Report Date: 08/12/2024 22:12 At the request of: SCOOBY VEGA DO Procedure: US OB BPP w non-stress Biophysical profile. Reason for exam: GBM. COMPARISON: Biophysical profile 08/06/2024. TECHNIQUE: Transabdominal imaging of the gravid uterus was obtained. FINDINGS: Pharmacy Teacher reports the BPP is 8 out of 8. SIDDHARTHA is normal 11.2 cm. heart rate 142 bpm. US/US OB BPP w non-stress IMPRESSION: BPP 8 out of 8. Impression dictated by: Lucas Martin Jr., D.O.08/12/2024 10:12 PM Dictation Location: [place] [address] Electronically authenticated by: [id number] Y Date: 08/12/2024 22:12 Dictated By: Lucas Martin M.D. Signed By: 08/12/242213 DD/ 11 TD/TT: Towel Distributor: [facility] RadiologyCorneliusogdora guillen MD - 08/12/2024 The [place] [id number] Ultrasound Report Signed Patient: RAPHAEL ELIZABETH MR#: [id number] : 1985 Acct:[id number] Age/Sex: 38 / F ADM Date: 08/12/24 Loc: US Attending Dr: Scooby Vega D.O. Ordering Physician: Scooby Vega D.O. Date of Service: 08/12/24 Procedure(s): US OB BPP w non-stress Accession Number(s): [id number] cc: Jen Granados M.D.; Scooby Vega D.O. [place] [address] Patient Name: RAPHAEL ELIZABETH MRN: [id number] date: 1985 Sex: F Assigned Patient Location: [facility] Current Patient Location: Accession/Order Number: [id number] Exam Date: 08/12/2024 22:10 Report Date: 08/12/2024 22:12 At the request of: SCOOBY VEGA DO Procedure: US OB BPP w non-stress Biophysical profile. Reason for exam: GBM. COMPARISON: Biophysical profile 08/06/2024. TECHNIQUE: Transabdominal imaging of the gravid uterus was obtained. FINDINGS: Pharmacy Teacher reports the BPP is 8 out of 8. SIDDHARTHA is normal 11.2 cm. heart rate 142 bpm. US/US OB BPP w non-stress IMPRESSION: BPP 8 out of 8. Impression dictated by: Lucas Martin Jr., D.O.08/12/2024 10:12 PM Dictation [facility] Electron[facility] authenticated by: [id number] Y Date: 08/12/2024 22:12 Dictated By: Lucas Martin M.D. Signed By: 08/12/242213 DD/ 11 TD/TT: Towel Distributor: [facility] Radiology Study observation (narrative) [facility] US OB BPP W NON-STRESS Ordered By: Radiologist Radiology on 08-12-2024 [facility] Work Phone: US OB BPP W NON-STRESS on 08-06-[address] [address] Ultrasound Report Signed Patient: RAPHAEL ELIZABETH MR#: [id number] : 1985 Acct:[id number] Age/Sex: 38 / F ADM Date: 08/05/24 Loc: US Attending Dr: Scooby Vega D.O. Ordering Physician: Scooby Vega D.O. Date of Service: 08/05/24 Procedure(s): US OB BPP w non-stress Accession Number(s): [id number] cc: Jen Granados M.D.; Scooby Vega D.O. The [place] [address] Patient Name: RAPHAEL ELIZABETH MRN: [facility]:[id number] date: 1985 Sex: F Assigned Patient Location: [facility] Current Patient Location: Accession/Order Number: [id number] Exam Date: 08/05/2024 19:09 Report Date: 08/06/2024 [...] Signed By: 08/06/24 0753 DD/ 0751 TD/TT: Towel Distributor: [facility] Radiology, Radiologi MD wilmer - 08/06/[address] [address] Ultrasound Report Signed Patient: RAPHAEL ELIZABETH MR#: [id number] : 1985 Acct:[id number] Age/Sex: 38 / F ADM Date: 08/05/24 Loc: US Attending Dr: Scooby Vega D.O. Ordering Physician: Scooby Vega D.O. Date of Service: 08/05/24 Procedure(s): US OB BPP w non-stress Accession Number(s): [id number] cc: Jen Granados M.D.; Scooby Vega D.O. The [place] [id number] Patient Name: RAPHAEL ELIZABETH MRN: [id number] date: 1985 Sex: F Assigned Patient Location: [facility] Current Patient Location: Accession/Order Number: [id number] Exam Date: 08/05/2024 19:09 Report Date: 08/06/2024 [...] Signed By: 08/06/24 0753 DD/ 0751 TD/TT: Towel Distributor: [facility] Radiology Study observation (narrative) [facility] US OB BPP W NON-STRESS Ordered By: Radiologist Radiology on 08-06-2024 [facility] Work Phone: US OB BPP W NON-STRESS on 08-01-2024 [place] [address] Ultrasound Report Signed Patient: RAPHAEL ELIZABETH MR#: [id number] : 1985 Acct:[id number] Age/Sex: 38 / F ADM Date: 07/29/24 Loc: US Attending Dr: Scooby Vega D.O. Ordering Physician: Scooby Vega D.O. Date of Service: 07/29/24 Procedure(s): US OB BPP w non-stress Accession Number(s): [id number] cc: Jen Granados M.D.; Scooby Vega D.O. [place] [id number] Patient Name: RAPHAEL ELIZABETH MRN: [facility]:[id number] date: 1985 Sex: F Assigned Patient Location: [facility] Current Patient Location: Accession/Order Number: [id number] Exam Date: 07/29/2024 19:04 Report Date: 08/01/2024 [...] M.D. Signed By: 08/01/24713 DD/ 0 TD/TT: Towel Distributor: [facility] Radiology, Radiologi MD wilmer - 08/01/2024 [place] [address] Ultrasound Report Signed Patient: RAPHAEL ELIZABETH MR#: [id number] : 1985 Acct:[id number] Age/Sex: 38 / F ADM Date: 07/29/24 Loc: US Attending Dr: Scooby Vega D.O. Ordering Physician: Scooby Vega D.O. Date of Service: 07/29/24 Procedure(s): US OB BPP w non-stress Accession Number(s): [id number] cc: Jen Granados M.D.; Scooby Vega D.O. The [place] [address] Patient Name: RAPHAEL ELIZABETH MRN: [id number]:[id number] date: 1985 Sex: F Assigned Patient Location: [facility] Current Patient Location: Accession/Order Number: [id number] Exam Date: 07/29/2024 19:04 Report Date: 08/01/2024 [...] M.D. Signed By: 08/01/24713 DD/ 0 TD/TT: Towel Distributor: [facility] Radiology Study observation (narrative) [facility] US OB BPP W NON-STRESS Ordered By: Radiologist Radiology on 08-01-2024 [facility] Work Phone: Urinalysis macro (dipstick) panel (U)on 08-01-2024 Bilirubin, UA Negative Negative - 4(70) +++ mg/dL [facility] Blood, UA Negative Negative - 50 Ulises/mcL [facility] Clarity, UA Clear [facility] Color, UA Yellow [facility] Glucose, UA Negative Negative - 1999(110) ++++ mg/dL [facility] Interpretation and review of laboratory results Abnormal [facility] Ketones, UA Negative Negative - 160(16) ++++ mg/dL [facility] Leukocytes, UA Trace Negative - 500+++ Clair/mcL [facility] Nitrite, UA Negative Negative - Positive [facility] pH, UA 7.5 5 - 9 [facility] Protein, UA Negative Negative - 1999(20) ++++ mg/dL [facility] Spec Grav, UA 1.015 1 - 1.03 [facility] Urobilinogen, UA 0.2 0.2 - 12 mg/dL [facility] Urinalysis macro (dipstick) panel (U)on 07-18-2024 Bilirubin, UA Negative Negative - 4(70) +++ mg/dL [facility] Blood, UA Negative Negative - 50 Ulises/mcL [facility] Clarity, UA Clear [facility] Color, UA Yellow [facility] Glucose, UA Negative Negative - 1999(110) ++++ mg/dL [facility] Interpretation and review of laboratory results Normal [facility] Ketones, UA Negative Negative - 160(16) ++++ mg/dL [facility] Leukocytes, UA Negative Negative - 500+++ Clair/mcL [facility] Nitrite, UA Negative Negative - Positive [facility] pH, UA 7 5 - 9 [facility] Protein, UA Negative Negative - 1999(20) ++++ mg/dL [facility] Spec Grav, UA 1.025 1 - 1.03 [facility] Urobilinogen, UA 0.2 0.2 - 12 mg/dL [facility] ALL CBC WITH AUTO DIFFon BASOPHILS ABSOLUTE AUTO 0 [facility] Basophils/100 WBC (Bld) 0.2 % 0.2 - 2.0 % [facility] Eosinophils/100 WBC (Bld) 0.9 % 0.9 - 7.0 % [facility] Erythrocyte distribution width (RBC) [Ratio] 13 % 11.0 - 15.0 % [facility] Hematocrit (Bld) [Volume fraction] 32.2 % Low 36.0 - 48.0 % [facility] Hemoglobin (Bld) [Mass/Vol] 10.9 g/dL Low 12.0 - 16.0 g/dL [facility] IMMATURE GRANULOCYTES ABS AUTO 0.13 High [facility] Immature granulocytes/100 WBC (Bld) 1.4 % High 0.0 - 0.5 % [facility] Interpretation and review of laboratory results Abnormal [facility] LYMPHOCYTES ABSOLUTE AUTO 1.4 [facility] Lymphocytes/100 WBC (Bld) 15.4 % Low 20.5 - 60.0 % [facility] MCH (RBC) [Entitic mass] 32.7 pg 26.7 - 34.0 pg [facility] MCHC (RBC) [Mass/Vol] 33.9 g/dL 29.9 - 35.2 g/dL [facility] MCV (RBC) [Entitic vol] 96.7 fL 81.0 - 99.0 fL [facility] MONOCYTES ABSOLUTE AUTO 0.5 [facility] Monocytes/100 WBC (Bld) 4.8 % 1.7 - 12.0 % [facility] NEUTROPHILS ABSOLUTE AUTO 7.2 High [facility] Neutrophils/100 WBC (Bld) 77.3 % High 43.0 - 75.0 % [facility] Platelet mean volume (Bld) [Entitic vol] 9.2 fL Low 9.5 - 13.5 fL [facility] TBH EO # 0.1 [facility] TB PLT 229 [facility] RBC 3.33 Low [facility] WBC 9.3 [facility] Urinalysis macro (dipstick) panel (U)on 06-30-2024 Bilirubin, UA Negative Negative - 4(70) +++ mg/dL [facility] Blood, UA Negative Negative - 50 Ulises/mcL [facility] Clarity, UA Clear [facility] Color, UA Yellow [facility] Glucose, UA Negative Negative - 2000(110) ++++ mg/dL [facility] Interpretation and review of laboratory results Abnormal [facility] Ketones, UA Negative Negative - 160(16) ++++ mg/dL [facility] Leukocytes, UA Trace Negative - 500+++ Clair/mcL [facility] Nitrite, UA Negative Negative - Positive [facility] pH, UA 8.5 5 - 9 [facility] Protein, UA Positive Negative - 2000(20) ++++ mg/dL [facility] Comment on above: trace Spec Grav, UA 1.015 1 - 1.03 [facility] Urobilinogen, UA 0.2 0.2 - 12 mg/dL [facility] Basophils/100 WBC Manual cnt (Bld)on 06-25-2024 Basophils/100 WBC (Bld) Basophils/100 leukocytes in Blood by Manual count Low 0.2-2.0 [facility] Eosinophils/100 WBC Manual c nt (Bld)on 06-25-2024 Eosinophils/100 WBC (Bld) Eosinophils/100 leukocytes in Blood by Manual count 0.9-7.0 [facility] Erythrocyte distribution wid th Auto (RBC) [Ratio]on 06-25-2024 Erythrocyte distribution width (RBC) [Ratio] Erythrocyte distribution width [Ratio] by Automated count 11.0-15.0 [facility] Estimated glomerular filtrat ion rate (GFR) non- Americanon 06-25-2024 GFR/1.73 sq M.predicted among non-blacks MDRD (S/P/Bld) [Vol rate/Area] Estimated glomerular filtration rate (GFR) non- >=60 mL/min/1.73 m 2 [facility] Hematocrit Auto (Bld) [Volum e fraction]on 06-25-2024 Hematocrit (Bld) [Volume fraction] Hematocrit [Volume Fraction] of Blood by Automated count Low 36.0-48.0 [facility] Hemoglobin [Mass/volume] in Bloodon 06-25-2024 Hemoglobin (Bld) [Mass/Vol] Hemoglobin [Mass/volume] in Blood Low 12.0-16.0 [facility] Laboratory - Chemistry and C hemistry - challengeon 06-25-2024 Calcium [Mass/Vol] 8.2 mg/dL Low 8.5-10.1 [facility] Chloride [Moles/Vol] 99 mmol/L 98-107 [facility] CO2 [Moles/Vol] 21.2 mmol/L 21.0-32.0 [facility] Creatinine [Mass/Vol] 0.89 mg/dL 0.55-1.02 [facility] GFR/1.73 sq M.predicted MDRD (S/P/Bld) [Vol rate/Area] mL/min/{1.73_m2} >=60 mL/min/1.73 m 2 [facility] Glucose [Mass/Vol] 98 mg/dL 74-106 [facility] Potassium [Moles/Vol] 3.7 mmol/L 3.5-5.1 [facility] Sodium [Moles/Vol] 130 mmol/L Low 136-145 [facility] Urea nitrogen [Mass/Vol] 7.0 mg/dL 7.0-18.0 [facility] Urea nitrogen/Creatinine [Mass ratio] 7.9 mg/mg [facility] Bilirubin Ql (U) Negative NEGATIVE [facility] Glucose (U) [Mass/Vol] Negative NEGATIVE [facility] Ketones Ql (U) 15 mg/dL Abnormal NEGATIVE [facility] pH (U) 7.5 [pH] 5.0-9.0 [facility] Specific gravity (U) [Rel density] 1.015 1.005-1.025 [facility] Urobilinogen Qn (U) 1.0 {Ree'U}/dL 0.2-1.0 [facility] Laboratory - Hematology and Cell countson 06-25-2024 Band form neutrophils/100 WBC (Bld) 2.0 % 0-5 [facility] Lymphocytes/100 WBC (Bld) 2.0 % Low 20.5-60.0 [facility] Monocytes/100 WBC (Bld) 5.0 % 1.7-12.0 [facility] Laboratory - Microbiology an d Antimicrobial susceptibilityon 06-25-2024 SARS-CoV-2 (COVID-19) RNA JUAN ANTONIO+probe Ql (Unsp spec) Negative NEGATIVE [facility] Comment on above: This test has not [...] Appearance (U) CLOUDY Abnormal CLEAR [facility] Color (U) DK YELLOW YELLOW [facility] Laboratory - Urinalysison Leukocyte esterase Test strip Ql (U) Negative NEGATIVE [facility] Nitrite Ql (U) Negative NEGATIVE [facility] Protein Ql (U) TRACE mg/dL NEG/TRACE [facility] Leukocytes [#/volume] correc leroy for nucleated erythrocytes in Blood by Automated counon 06-25-2024 WBC corrected for nucl RBC Auto (Bld) [#/Vol] Leukocytes [#/volume] corrected for nucleated erythrocytes in Blood by Automated coun 4.0-11.0 [facility] MCH Auto (RBC) [Entitic mass ]on 06-25-2024 MCH (RBC) [Entitic mass] MCH [Entitic mass] by Automated count 26.7-34.0 [facility] MCHC Auto (RBC) [Mass/Vol]on 06-25-2024 MCHC (RBC) [Mass/Vol] MCHC [Mass/volume] by Automated count 29.9-35.2 [facility] MCV Auto (RBC) [Entitic vol] on 06-25-2024 MCV (RBC) [Entitic vol] MCV [Entitic volume] by Automated count 81.0-99.0 [facility] No Panel Informationon 06-25 Absolute Basophils (Manual) 0.00 10 3/uL 0.00-0.10 [facility] Band Neutrophils # (Manual) 0.2 10 3/uL 0.0-0.3 [facility] Eosinophils # (Manual) 0.08 10 3/uL 0.00-0.70 [facility] Lymphocytes # (Manual) 0.16 10 3/uL Low 1.20-3.80 [facility] Monocytes # (Manual) 0.41 10 3/uL 0.30-0.80 [facility] Segmented Neutrophils # (Manual) 7.38 10 3/uL High 1.4-6.5 [facility] Urine Occult Blood Negative NEGATIVE [facility] Bedside Influenza Type A Antigen Positive Abnormal [facility] Comment on above: NOTE: Live attenuate d influenza vaccine viruses can cause apositive result for a rapid influenza diagnostic test ifadministered up to 7 days prior to rapid testing. Bedside Influenza Type B Antigen Negative [facility] Comment on above: Negative for Flu B p rotein antigen. Infection due to Flu Bcannot be ruled out. Flu B antigen in the sample may bebelow the detection limit of the test. Platelet mean volume Auto (B ld) [Entitic vol]on 06-25-2024 Platelet mean volume (Bld) [Entitic vol] Platelet mean volume [Entitic volume] in Blood by Automated count Low 9.5-13.5 [facility] Platelets Auto (Bld) [#/Vol] on 06-25-2024 Platelets (Bld) [#/Vol] Platelets [#/volume] in Blood by Automated count 150-450 [facility] RBC Auto (Bld) [#/Vol]on RBC (Bld) [#/Vol] Erythrocytes [#/volu me] in Blood by Automated count Low 4.20-5.40 [facility] Segmented neutrophils/100 WB C Manual cnt (Bld)on 06-25-2024 Segmented neutrophils/100 WBC (Bld) Manual blood segmented neutrophils/100 leukocytes High 43.0-75.0 [facility] Serum or plasma anion gap de terminationon 06-25-2024 Anion gap [Moles/Vol] Serum or plasma anion gap determination [facility] Urine Cultureon 06-25-2024 Bacteria identified Cx Nom (U) No Growth 2 Days PERFORMED BY: [facility] [address] [place] [address] PATHOLOGIST BRANCH MECHANIC DANTE PALACIOS M.D. Normal [facility] Comment on above: Performed By: #### C UU #### [facility] [address] IGP,APTIMA HPV,AGE GDLNon AGE GDLN ACOG TESTING Note . [facility] Comment on above: TESTS RESULT FLAG UN ITS REF RANGE LAB Clinician Provided Cytology Information Source.............Cervix No. of containers..01 ThinPrep Vial Age Algo ACOG Annel... FLAG LEGEND: L-Low Normal,H-High Normal,LL-Alert Low,HH-Alert High <-Panic Low,>-Panic High,A-Abnormal,AA-Critical Abnormal Performed at: 01 =[address] [address] Kathryn Maldonado MD, HPV APTIMA Negative Negative [facility] Comment on above: This nucleic acid am plification test detects fourteen high- risk HPV types (16,18,31,33,35,39,45,51,52,56,58,59,66,68) without differentiation. Performed at: =[address] [id number] [employer]: Kathryn Maldonado MD, Phone: [phone] Performed at: [address] [id number] [employer]: Kathryn Maldonado MD, Phone: [phone] IGP, APTIMA HPV, RFX 16/18,45 Note . [facility] Comment on above: TESTS RESULT FLAG UN ITS REF RANGE LAB DIAGNOSIS: 02 NEGATIVE FOR INTRAEPITHELIAL LESION OR MALIGNANCY. Specimen adequacy: 02 Satisfactory for evaluation. Endocervical and/or squamous metaplastic cells (endocervical component) are present. Performed by: 02 Thao Shankar Hand Hose Cutter . 02 Note: Note 02 The Pap [...] Low,>-Panic High,A-Abnormal,AA-Critical Abnormal Performed at: 02 WB [facility] [address] [address] Kathryn Maldonado MD, BRUSH-SPATULA CERVIX [facility] RECURRENT VAGINITIS (HTRX)on 05-05-2024 ATOPOBIUM VAGINAE 0 [facility] ATOPOBIUM VAGINAE Not detected [facility] BVAB 2,3 (BACTERIAL VAGINOSIS ASSOCIATED BACTERIA 2, 3); MOBILUNCUS SPP 0 [facility] BVAB 2,3 (BACTERIAL VAGINOSIS ASSOCIATED BACTERIA 2, 3); MOBILUNCUS SPP Not detected [facility] JED ALBICANS, PARAPSILOSIS, TROPICALIS 0 [facility] JED ALBICANS, PARAPSILOSIS, TROPICALIS Not detected [facility] JED GLABRATA 0 [facility] JED GLABRATA Not detected [facility] JED KRUSEI 0 [facility] JED KRUSEI Not detected [facility] CHLAMYDIA TRACHOMATIS 0 [facility] CHLAMYDIA TRACHOMATIS Not detected [facility] GARDNERELLA VAGINALIS 0 [facility] GARDNERELLA VAGINALIS Not detected [facility] MEGASPHAERA (TYPES 1, 2) 0 [facility] MEGASPHAERA (TYPES 1, 2) Not detected [facility] MYCOPLASMA GENITALIUM 0 [facility] MYCOPLASMA GENITALIUM Not detected [facility] NEISSERIA GONORRHOEAE 0 [facility] NEISSERIA GONORRHOEAE Not detected [facility] TRICHOMONAS VAGINALIS 0 [facility] TRICHOMONAS VAGINALIS Not detected [facility] Urinalysis macro (dipstick) panel (U)on 05-03-2024 Bilirubin, UA Negative Negative - 4(70) +++ mg/dL [facility] Blood, UA Negative Negative - 50 Ulises/mcL [facility] Clarity, UA Clear [facility] Color, UA Yellow [facility] Glucose, UA Negative Negative - 1999(110) ++++ mg/dL [facility] Interpretation and review of laboratory results Normal [facility] Ketones, UA Negative Negative - 160(16) ++++ mg/dL [facility] Leukocytes, UA Negative Negative - 500+++ Clair/mcL [facility] Nitrite, UA Negative Negative - Positive [facility] pH, UA 0.5 5 - 9 [facility] Protein, UA Negative Negative - 1999(20) ++++ mg/dL [facility] Spec Grav, UA 1.025 1 - 1.03 [facility] Urobilinogen, UA 1.0 0.2 - 12 mg/dL [facility] Human papilloma virus 16+18+ 31+33+35+39+45+51+52+56+58+59+66+68 DNA [Presence] in Denis 05-02-2024 HPV 16+18+31+33+35+39+4 5+51+52+56+58+59+66 +68 DNA Probe+sig amp Ql (Cvx) Human papilloma virus 16+18+31+33+35+39+45+51+52+5 6+58+59+66+68 DNA [Presence] in Cer Negative [facility] Comment on above: This nucleic acid am plification test detects fourteen high- risk HPV types (16,18,31,33,35,39,45,51,52,56,58,59,66,68)without differentiation.Performed at: =G - [facility] [address] [id number] Director: Kathryn Maldonado MD, Phone: [phone] at: - [facility] [address], [place] [id number] Director: Kathryn Maldonado MD, Phone: [phone] No Panel Informationon 05-02 HPV High Risk Other Comment Note . [facility] Comment on above: TESTS RESULT FLAG UN ITS REF RANGE LAB JESE GNOSIS: 02 NEGATIVE FOR INTRAEPITHELIAL LESION OR MALIGNANCY.Specimen adequacy: 02 Satisfactory for evaluation. Endocervical and/or squamous metaplastic cells (endocervical component) are present.Performed by: 02 Thao Shankar, Hand Hose Cutter. 02Note: Note 02 The Pap smear is [...] Low,>-Panic High,A-Abnormal,AA-Critical Abnormal --Performed at:02 WB [facility] [place] [address] [place] [place] [address] Kathryn Maldonado MD, Reference Lab Test Patient Age Note . [facility] Comment on above: TESTS RESULT FLAG UN ITS REF RANGE LAB Clinician Provided Cytology Information Source.............Cervix No. of containers..01 ThinPrep VialAge Radhao TOMMY Annel... FLAG LEGEND: L-Low Normal,H-High Normal,LL-Alert Low,HH-Alert High <-Panic Low,>-Panic High,A-Abnormal,AA-Critical Abnormal --Performed at:01 =G [facility] [place] [address] [place] [address] Kathryn Maldonado MD, AFP, SERUM, OPEN SPINA BIFID Aon 05-01-2024 AFP MOM 1.18 . [facility] AFP VALUE 61.8 ng/mL . [facility] COMMENT: Comment . [facility] Comment on above: Cydney Rodriguez , Ph.D., [facility] Director References: Available Upon Request. Multiples Of Median Cutoffs For AFP Elevations Chiang 2.5 Black 2.8 IDD 2.0 Twins 4.5 Abbreviation Definitions IDD - Insulin Dep Diabetes OSBR - Open Spina Bifida Risk For further inquiries contact [employer] [facility] at [phone]. This test was developed and its performance characteristics determined by [employer]. It has not been cleared or approved by the Food and Drug Administration. Performed at: [facility] [place] [address], [place] [id number] [employer]: Marissa Kovacs [facility], Phone: [phone] GEST. AGE ON COLLECTION DATE 19.0 . weeks [facility] GESTAT. AGE BASED ON LMP . [facility] Comment on above: Recalculations are n ot recommended when gestational dating by LMP and ultrasound are within 10 days. INSULIN DEP DIABETES No . [facility] INTERPRETATION Comment . [facility] Comment on above: Interpretation: Scre en Negative [...] Customer Services to discuss available options. The [employer] [employer] recommends amniocentesis be offered to women age 35 and older. [age] [facility] MULTIPLE GESTATION No . [facility] OSBR RISK 1 IN 6916 . [facility] RACE . [facility] RESULTS Report . [facility] TEST RESULTS: Negative . [facility] WEIGHT 135 . lbs [facility] N N LMP [id number] 3 15 N 1 Y 135 N N N N N White/ [facility] Alpha-fetoprotein (AFP) paige urement (okezgdyy-gd-lwsqgi)on 04-29-2024 AFP [MoM] Alpha-fetoprotein (A FP) measurement (itjsosov-bb-pvebwo) . [facility] Assess gestational ageon Gestational age Assess gestational age . [facility] Estimation of maternal age-s pecific risk of Down syndrome birthon 04-29-2024 Age [Time] Estimation of matern al age-specific risk of Down syndrome . [facility] Insulin dependent diabetes m ellitus detectionon 04-29-2024 Insulin dependent diabetes mellitus Ql Insulin dependent diabetes mellitus detection . [facility] Interpretation of serum or p lasma second trimester quad maternal screen (narrative reon 04-29-2024 Second trimester quad maternal screen Darshan [Interp] Interpretation of serum or plasma second trimester quad maternal screen (narrative re . [facility] Comment on above: Interpretation: Scre en NegativeThis [...] Triple Screen Comment Comment . [facility] Comment on above: Cydney Rodriguez , Ph.D., DABCCDirectorReferences: Available Upon Request.Multiples Of Median Cutoffs For AFP ElevationsSingleton 2.5 Black 2.8IDD 2.0 Twins 4.5 Abbreviation DefinitionsIDD - Insulin Dep DiabetesOSBR - Open Spina Bifida RiskFor further inquiries contact [employer] [facility] at [phone].This test was developed and its performance characteristicsdetermined by [employer]. It has not been cleared or approvedby the Food and Drug Administration.Performed at: [facility] [address], [place] [id number] Director: Marissa Kovacs [facility], Phone: [phone] Alpha Fetoprotein Results Received Report . [facility] Gestational Age Calculation Method LMP . [facility] Comment on above: Recalculations are n ot recommended when gestational datingby LMP and ultrasound are within 10 days. Maternal Quad Test Risk 6916 . [facility] Maternal Race . [facility] Multiple No . [facility] Serum or plasma yahzy-2-jtgw protein measurement (mass/volume)on 04-29-2024 AFP [Mass/Vol] Serum or plasma cuguk-0-vpqbjpazuzd measurement (mass/volume) . [facility] BOX TEST SENT OUTon BOX TEST SENT OUT Y [facility] UNITY BOX [facility] ALL CBC WITH AUTO DIFFon BASOPHILS ABSOLUTE AUTO 0.0 [facility] Basophils/100 WBC (Bld) 0.5 % 0.2 - 2.0 % [facility] Eosinophils/100 WBC (Bld) 0.9 % 0.9 - 7.0 % [facility] Erythrocyte distribution width (RBC) [Ratio] 11.9 % 11.0 - 15.0 % [facility] Hematocrit (Bld) [Volume fraction] 37.3 % 36.0 - 48.0 % [facility] Hemoglobin (Bld) [Mass/Vol] 12.7 g/dL 12.0 - 16.0 g/dL [facility] IMMATURE GRANULOCYTES ABS AUTO 0.02 [facility] Immature granulocytes/100 WBC (Bld) 0.3 % 0.0 - 0.5 % [facility] Interpretation and review of laboratory results Abnormal [facility] LYMPHOCYTES ABSOLUTE AUTO 1.8 [facility] Lymphocytes/100 WBC (Bld) 27.4 % 20.5 - 60.0 % [facility] MCH (RBC) [Entitic mass] 32.2 pg 26.7 - 34.0 pg [facility] MCHC (RBC) [Mass/Vol] 34.0 g/dL 29.9 - 35.2 g/dL [facility] MCV (RBC) [Entitic vol] 94.4 fL 81.0 - 99.0 fL [facility] MONOCYTES ABSOLUTE AUTO 0.3 [facility] Monocytes/100 WBC (Bld) 5.1 % 1.7 - 12.0 % [facility] NEUTROPHILS ABSOLUTE AUTO 4.4 [facility] Neutrophils/100 WBC (Bld) 65.8 % 43.0 - 75.0 % [facility] Platelet mean volume (Bld) [Entitic vol] 9.4 fL Low 9.5 - 13.5 fL [facility] EO # 0.1 [facility] PLT 215 [facility] RBC 3.95 Low [facility] WBC 6.6 [facility] HCG ( test) Ql (U)o n 02-12-2024 Interpretation and review of laboratory results Abnormal [facility] Preg Test, Ur Positive [facility] Urinalysis macro (dipstick) panel (U)on 02-12-2024 Bilirubin, UA Negative Negative - 4(70) +++ mg/dL [facility] Blood, UA Negative Negative - 50 Ulises/mcL [facility] Clarity, UA Clear [facility] Color, UA Yellow [facility] Glucose, UA Negative Negative - 1999(110) ++++ mg/dL [facility] Interpretation and review of laboratory results Normal [facility] Ketones, UA Negative Negative - 160(16) ++++ mg/dL [facility] Leukocytes, UA Negative Negative - 500+++ Clair/mcL [facility] Nitrite, UA Negative Negative - Positive [facility] pH, UA 6.5 5 - 9 [facility] Protein, UA Negative Negative - 1999(20) ++++ mg/dL [facility] Spec Grav, UA 1.015 1 - 1.03 [facility] Urobilinogen, UA 1.0 0.2 - 12 mg/dL [facility] No Panel Informationon 11-29 Human Chorionic Gonadotropin, Quant 2 mIU/mL [facility] Comment on above: 5-50 0.2-1 YLBS71-97 0 1-2 TWBTS842-2,000 2-3 GJDOC574-64,000 3-4 WEEKS1,000-50,000 4-5 WEEKS10,000-100,000 5-6 WEEKS15,000-200,000 6-8 WEEKS10,000-100,000 2-3 MONTHS No Panel Informationon 11-22 Human Chorionic Gonadotropin, Quant 3 mIU/mL [facility] Comment on above: 5-50 0.2-1 SKDO80-01 0 1-2 XJXLF525-3,000 2-3 FGTBM360-96,000 3-4 WEEKS1,000-50,000 4-5 WEEKS10,000-100,000 5-6 WEEKS15,000-200,000 6-8 WEEKS10,000-100,000 2-3 MONTHS No Panel Informationon 11-16 Human Chorionic Gonadotropin, Quant 6 mIU/mL [facility] Comment on above: 5-50 0.2-1 UIMW60-50 0 1-2 CBXJT023-4,000 2-3 BZRJL301-29,000 3-4 WEEKS1,000-50,000 4-5 WEEKS10,000-100,000 5-6 WEEKS15,000-200,000 6-8 WEEKS10,000-100,000 2-3 MONTHS No Panel Informationon 11-08 Human Chorionic Gonadotropin, Quant 27 mIU/mL [facility] Comment on above: 5-50 0.2-1 ZQLR69-55 0 1-2 GGALG497-4,000 2-3 WLMDI167-12,000 3-4 WEEKS1,000-50,000 4-5 WEEKS10,000-100,000 5-6 WEEKS15,000-200,000 6-8 WEEKS10,000-100,000 2-3 MONTHS Basophils Auto (Bld) [#/Vol] on 10-23-2023 Basophils (Bld) [#/Vol] 0.0 10 3/uL 0.0-0.1 [facility] Basophils/100 WBC Auto (Bld) on 10-23-2023 Basophils/100 WBC (Bld) 0.8 % 0.2-2.0 [facility] Eosinophils/100 WBC Auto (Bl d)on 10-23-2023 Eosinophils/100 WBC (Bld) 1.4 % 0.9-7.0 [facility] Erythrocyte distribution wid th Auto (RBC) [Ratio]on 10-23-2023 Erythrocyte distribution width (RBC) [Ratio] 11.9 % 11.0-15.0 [facility] Hematocrit Auto (Bld) [Volum e fraction]on 10-23-2023 Hematocrit (Bld) [Volume fraction] 36.0 % 36.0-48.0 [facility] Hemoglobin [Mass/volume] in Bloodon 10-23-2023 Hemoglobin (Bld) [Mass/Vol] 11.8 g/dL 12.0-16.0 [facility] Krzysztof 10-23-2023 L Specimen: [id number] R eceived: 10/26/23 Status: MAIA Newell Num: [id number] Spec Type: Surgical Subm Dr: Scooby Vega Tissues: A Products of Conception - Spontaneous or Missed (POC) Procedures: HE/3, Gross/Micro L4 Age/ Patient Sex Location Account Attending Physician GlennRaphael 37/F [facility] [id number] Scooby Vega SPEC NUM: [id number] RECD: 10/26/23 STATUS: MAIA NEWELL NUM: [id number] JANIE: 10/23/[address]: Scooby Vega ENTERED: 10/26/[address] [facility] [address]: Héctor,Lab SPEC TYPE: Surgical [...] cm possible area of villous tissue identified. Client Manager Large Law sections to include the possible villous tissue are submitted in A1?A3. Clinical history: Missed CPT Codes 63829 -------- -------- Specimen: [id number] Received: 10/26/23-1306 Status: MAIA Newell Num: [id number] Spec Type: Surgical Subm Dr: Scooby Vega Tissues: A Products of Conception - Spontaneous or Missed (POC) Procedures: HE/3, Gross/Micro L4 -------- Patient: Raphael Elizabeth [id number] (Continued) -------- Signed (signature on file) Dante Palacios MD 10/27/23 1511 Normal [facility] - Hematology and Cell countson 10-23-2023 Immature granulocytes/100 WBC (Bld) 0.2 % 0.0-0.5 [facility] Leukocytes [#/volume] correc leroy for nucleated erythrocytes in Blood by Automated counon 10-23-2023 WBC corrected for nucl RBC Auto (Bld) [#/Vol] 5.1 10 3/uL 4.0-11.0 [facility] Lymphocytes Auto (Bld) [#/Vo l]on 10-23-2023 Lymphocytes (Bld) [#/Vol] 1.7 10 3/uL 1.2-3.8 [facility] Lymphocytes/100 WBC Auto (Bl d)on 10-23-2023 Lymphocytes/100 WBC (Bld) 32.8 % 20.5-60.0 [facility] MCH Auto (RBC) [Entitic mass ]on 10-23-2023 MCH (RBC) [Entitic mass] 31.1 pg 26.7-34.0 [facility] MCHC Auto (RBC) [Mass/Vol]on 10-23-2023 MCHC (RBC) [Mass/Vol] 32.8 g/dL 29.9-35.2 [facility] MCV Auto (RBC) [Entitic vol] on 10-23-2023 MCV (RBC) [Entitic vol] 95.0 fL 81.0-99.0 [facility] Monocytes Auto (Bld) [#/Vol] on 10-23-2023 Monocytes (Bld) [#/Vol] 0.3 10 3/uL 0.3-0.8 [facility] Monocytes/100 WBC Auto (Bld) on 10-23-2023 Monocytes/100 WBC (Bld) 5.5 % 1.7-12.0 [facility] Neutrophils Auto (Bld) [#/Vo l]on 10-23-2023 Neutrophils (Bld) [#/Vol] 3.0 10 3/uL 1.4-6.5 [facility] Neutrophils/100 WBC Auto (Bl d)on 10-23-2023 Neutrophils/100 WBC (Bld) 59.3 % 43.0-75.0 [facility] No Panel Informationon 10-22 Eosinophils # (Auto) 0.1 10 3/uL 0.0-0.7 [facility] Immature Granulocyte # (Auto) 0.01 10 3/uL 0.00-0.03 [facility] Platelet mean volume Auto (B ld) [Entitic vol]on 10-23-2023 Platelet mean volume (Bld) [Entitic vol] 9.0 fL 9.5-13.5 [facility] Platelets Auto (Bld) [#/Vol] on 10-23-2023 Platelets (Bld) [#/Vol] 182 10 3/uL 150-450 [facility] RBC Auto (Bld) [#/Vol]on RBC (Bld) [#/Vol] 3.79 10 6/uL 4.20-5.40 [facility] No Panel Informationon 10-11 Human Chorionic Gonadotropin, Quant 09214 mIU/mL [facility] Comment on above: 5-50 0.2-1 RELO78-80 0 1-2 QBXLB022-9,000 2-3 HNCUW664-93,000 3-4 WEEKS1,000-50,000 4-5 WEEKS10,000-100,000 5-6 WEEKS15,000-200,000 6-8 WEEKS10,000-100,000 2-3 MONTHS No Panel Informationon 10-06 Human Chorionic Gonadotropin, Quant 43516 mIU/mL [facility] Comment on above: 5-50 0.2-1 ACSZ06-72 0 1-2 HGFFL107-0,000 2-3 UASLR767-50,000 3-4 WEEKS1,000-50,000 4-5 WEEKS10,000-100,000 5-6 WEEKS15,000-200,000 6-8 WEEKS10,000-100,000 2-3 MONTHS No Panel Informationon 10-04 Human Chorionic Gonadotropin, Quant 58488 mIU/mL [facility] Comment on above: 5-50 0.2-1 EUVJ92-24 0 1-2 DMKSA447-8,000 2-3 GVIAQ663-79,000 3-4 WEEKS1,000-50,000 4-5 WEEKS10,000-100,000 5-6 WEEKS15,000-200,000 6-8 WEEKS10,000-100,000 2-3 MONTHS PAP ACOG PANEL 2: 30 to 65on 03-11-2022 . . Normal [facility] Comment on above: Result Comment: Perf ormed at: WB Performed By: #### [id number] #### [facility] [address] [address] [address] Danni Jacobs Age Gdln ACOG Testing 30-65 Normal [facility] Comment on above: Performed By: #### [id number] #### [facility] [address] [address] [address] Danni Jacobs DIAGNOSIS: Comment Normal [facility] Comment on above: Result Comment: NEGA TIVE FOR INTRAEPITHELIAL LESION OR MALIGNANCY. THIS SPECIMEN WAS RESCREENED PART OF OUR LOSS PREVENTION RESEARCH ENGINEER PROGRAM. Performed at: WB Performed By: #### [id number] #### [facility] [address] [place] [address] Dr. Danni Jacobs HPV Aptima Negative Normal Negative [facility] Comment on above: Result Comment: This nucleic acid amplification test detects fourteen high-risk HPV types (16,18,31,33,35,39,45,51,52,56,58,59,66,68) without differentiation. Performed at: =G Performed By: #### [id number] #### [facility] [address] [place] [address] Dr. Danni Jacobs Methodology: Comment Normal [facility] Comment on above: Result Comment: This liquid based ThinPrep(R) pap test was screened with the use of an image guided system. Performed at: WB Performed By: #### [id number] #### [facility] [address] [place] [address] Dr. Danni Jacobs Note: Comment Normal [facility] Comment on above: Result Comment: The Pap smear is a screening test designed to aid in the detection of premalignant and malignant conditions of the uterine cervix. It is not a diagnostic procedure and should not be used as the sole means of detecting cervical cancer. Both false-positive and false-negative reports do occur. . Performed at: WB Performed By: #### [id number] #### [facility] [address] [place] [address] Dr. Danni Jacobs Performed by: Comment Normal [facility] Comment on above: Result Comment: Rocky Hull, Hand Hose Cutter (ASCP) Performed at: WB Performed By: #### [id number] #### [facility] [address] [place] [address] Dr. Danni Jacobs QC reviewed by: Comment Normal [facility] Comment on above: Result Comment: Betzaida Ge, Supervisory Hand Hose Cutter (ASCP) Performed at: WB Performed By: #### [id number] #### [facility] [address] [place] [address] Dr. Danni Jacobs Specimen adequacy: Comment Normal [facility] Comment on above: Result Comment: Sati sfactory for evaluation. Endocervical and/or squamous metaplastic cells (endocervical component) are present. Performed at: WB Performed By: #### [id number] #### [facility] [address] [address] [address] Danni Jacobs GLUCOSE BLOODon 04-22-2021 Glucose [Mass/Vol] 99 mg/dL Normal 74-106 [facility] Comment on above: Performed By: #### G YOSEPH, LIPID #### [facility] [address] [address] [address] Danni Jacobs LIPID PROFILEon 04-22-2021 CHOL-HDL RATIO NORM SEE BELOW Normal [facility] Comment on above: Result Comment: 3.3 - 4.4 LOW RISK 4.4 - 7.1 AVERAGE RISK 7.1 - 11.0 MODERATE RISK >11.0 HIGH RISK Performed By: #### G YOSEPH, LIPID #### [facility] [address] [address] [address] Danni Jacobs Cholesterol [Mass/Vol] 157 mg/dL Normal <=200 [facility] Comment on above: Performed By: #### G YOSEPH, LIPID #### [facility] [address] [address] [address] Danni Jacobs Cholesterol in HDL [Mass/Vol] 74 mg/dL Normal [facility] Comment on above: Performed By: #### G YOSEPH, LIPID #### [facility] [address] [address] [address] Danni Jacobs Cholesterol in LDL [Mass/Vol] 71.2 mg/dL Normal [facility] Comment on above: Performed By: #### G YOSEPH, LIPID #### [facility] [address] [address] [address] Danni Jacobs Cholesterol.total/C holesterol in HDL [Mass ratio] 2.1 {ratio} Normal [facility] Comment on above: Performed By: #### G YOSEPH, LIPID #### [facility] [address] [address] [address] Danni Jacobs HDL NORMAL > or = 60 mg/dl - LO W CARDIOVASCULAR RISK <40 mg/dl - HIGH CARDIOVASCULAR RISK Normal [facility] Comment on above: Performed By: #### G YOSEPH, LIPID #### [facility] [address] [address] [address] Danni Jacobs LDL CALC NORMAL SEE BELOW Normal [facility] Comment on above: Result Comment: <100 mg/dl OPTIMAL 100 - 129 mg/dl NEAR OR ABOVE OPTIMAL 130 - 159 mg/dl BORDERLINE HIGH 160 - 189 mg/dl HIGH >190 mg/dl VERY HIGH Performed By: #### G YOSEPH, LIPID #### [facility] [address], [place] [address] Dr. Danni Jacobs Triglyceride [Mass/Vol] 59 mg/dL Normal <=150 [facility] Comment on above: Performed By: #### G YOSEPH, LIPID #### [facility] [address] [place] [address] [address] Danni Jacobs VLDL CALC 11.8 mg/dL Normal [facility] Comment on above: Performed By: #### G YOSEPH, LIPID #### [facility] [address] [address] [address] Danni Jacobs Vital Signs Date Time Vital Sign Value Performing Clinician Philippe mera 08-24-2024 13:51-0500 Body mass index (BMI) [Ratio] 24.18 kg/m2 Scooby Gary DO Work Phone: [facility] 08-24-2024 13:51-0500 Body weight 70.03 kg Scooby Gary DO Work Phone: [facility] 08-24-2024 13:51-0500 Diastolic blood pressure 68 mm[Hg] Scooby Gary DO Work Phone: [facility] 08-24-2024 13:51-0500 Systolic blood pressure 112 mm[Hg] Scooby Gary DO Work Phone: [facility] 08-18-2024 09:28-0500 Body mass index (BMI) [Ratio] 23.62 kg/m2 Scooby Gary DO Work Phone: [facility] 08-18-2024 09:28-0500 Body weight 68.4 kg Scooby Gary DO Work Phone: [facility] 08-18-2024 09:28-0500 Diastolic blood pressure 72 mm[Hg] Scooby Gary DO Work Phone: [facility] 08-18-2024 09:28-0500 Systolic blood pressure 110 mm[Hg] Scooby Gary DO Work Phone: [facility] 08-01-2024 13:55-0500 Body mass index (BMI) [Ratio] 22.87 kg/m2 Scooby Gary DO Work Phone: [facility] 08-01-2024 13:55-0500 Body weight 66.22 kg Scooby Gary DO Work Phone: [facility] 08-01-2024 13:55-0500 Diastolic blood pressure 74 mm[Hg] Scooby Gary DO Work Phone: [facility] 08-01-2024 13:55-0500 Systolic blood pressure 116 mm[Hg] Scooby Gary DO Work Phone: [facility] 07-18-2024 15:05-0500 Body mass index (BMI) [Ratio] 22.84 kg/m2 Scooby Gary DO Work Phone: [facility] 07-18-2024 15:05-0500 Body weight 66.13 kg Scooby Gary DO Work Phone: [facility] 07-18-2024 15:05-0500 Diastolic blood pressure 70 mm[Hg] Scooby Gary DO Work Phone: [facility] 07-18-2024 15:05-0500 Systolic blood pressure 118 mm[Hg] Scooby Gary DO Work Phone: [facility] 06-30-2024 12:01-0500 Body mass index (BMI) [Ratio] 22.26 kg/m2 Scooby Gary DO Work Phone: [facility] 06-30-2024 12:01-0500 Body weight 64.47 kg Scooby Gary DO Work Phone: [facility] 06-30-2024 12:01-0500 Diastolic blood pressure 70 mm[Hg] Scooby Gary DO Work Phone: [facility] 06-30-2024 12:01-0500 Systolic blood pressure 110 mm[Hg] Scooby Gary DO Work Phone: [facility] 06-02-2024 10:45-0500 Body mass index (BMI) [Ratio] 21.9 kg/m2 Scooby Gary DO Work Phone: [facility] 06-02-2024 10:45-0500 Body weight 63.41 kg Scooby Gary DO Work Phone: [facility] 06-02-2024 10:45-0500 Diastolic blood pressure 72 mm[Hg] Scooby Gary DO Work Phone: [facility] 06-02-2024 10:45-0500 Systolic blood pressure 116 mm[Hg] Scooby Gary DO Work Phone: [facility] 05-02-2024 16:20-0500 Body mass index (BMI) [Ratio] 21.61 kg/m2 Emely COBB Work Phone: [facility] 05-02-2024 16:20-0500 Body weight 62.6 kg Emely COBB Work Phone: [facility] 05-02-2024 16:20-0500 Diastolic blood pressure 68 mm[Hg] Emely COBB Work Phone: [facility] 05-02-2024 16:20-0500 Systolic blood pressure 120 mm[Hg] Emely COBB Work Phone: [facility] 04-29-2024 11:40-0500 Body weight Jen Granados MD Work Phone: [facility] 04-04-2024 14:55-0400 Body mass index (BMI) [Ratio] 21.27 kg/m2 Scooby Gary DO Work Phone: [facility] 04-04-2024 14:55-0400 Body weight 61.6 kg Scooby Gary DO Work Phone: [facility] 04-04-2024 14:55-0400 Diastolic blood pressure 70 mm[Hg] Scooby Gary DO Work Phone: [facility] 04-04-2024 14:55-0400 Systolic blood pressure 116 mm[Hg] Scooby Gary DO Work Phone: [facility] 03-07-2024 10:47-0400 Body mass index (BMI) [Ratio] 20.07 kg/m2 Scooby Gary DO Work Phone: [facility] 03-07-2024 10:47-0400 Body weight 58.12 kg Scooby Gary DO Work Phone: [facility] 03-07-2024 10:47-0400 Diastolic blood pressure 68 mm[Hg] Scooby Gary DO Work Phone: [facility] 03-07-2024 10:47-0400 Systolic blood pressure 114 mm[Hg] Scooby Gary DO Work Phone: [facility] 12-01-2023 16:10-0400 Body height 170.18 cm Scooby Gary Work Phone: [facility] 12-01-2023 16:10-0400 Body mass index (BMI) [Ratio] 19.5 kg/m2 Scooby Gary Work Phone: [facility] 12-01-2023 16:10-0400 Body weight 56.69 kg Scooby Gary Work Phone: [facility] 12-01-2023 16:10-0400 Diastolic blood pressure 78 mm[Hg] Scooby Gary Work Phone: [facility] 12-01-2023 16:10-0400 Systolic blood pressure 112 mm[Hg] Scooby Gary Work Phone: [facility] Encounters Encounter Date Encounter Type Care Provider Facility Start: 08-24-2024 End: 08-24-2024 Bamboo flowsheet Scooby Gary DO Work Phone: [facility] Start: 08-24-2024 End: 08-24-2024 Bamboo flowsheet Scooby Gary DO Work Phone: [facility] Start: 08-24-2024 End: 08-24-2024 flow sheet Scooby Gary DO Work Phone: [facility] Comment on above: Third trimester preg gali; 35 weeks gestation of Start: 08-20-2024 End: 08-20-2024 Clinisync Result Encounter [...] 06-25-2024 ambulatory Jen Granados MD Work Phone: [facility] Work Phone: Start: 06-25-2024 End: 06-25-2024 Departed Referred Jen Granados MD Work Phone: [facility] Start: 06-25-2024 Non-patient / Non-visit Jen Granados MD Work Phone: [facility] Work Phone: Start: 06-02-2024 End: [...] / Non-visit Jen Granados MD Work Phone: [facility] Work Phone: Start: 05-02-2024 [...] / Non-visit Jen Granados MD Work Phone: [facility] Work Phone: Start: 04-04-2024 End: [...] [facility] Start: 04-04-2024 End: 04-04-2024 ambulatory [facility] Start: 04-01-2024 End: 04-01-2024 [...] outpatient visit 5 minutes [facility] Gray Nurse [facility] Comment on above: GA: 8w0d Start: 02-10-2024 End: 02-11-2024 ambulatory Gretchen Moreno PT [facility] Comment on above: Pain of left hip (Pr imary Dx); Hip flexor tendinitis, left Start: 02-10-2024 End: 02-10-2024 Bamboo flowsheet Gretchen Moreno PT [facility] Start: 02-10-2024 End: 02-10-2024 Bamboo flowsheet Gretchen Moreno PT [facility] Start: 02-08-2024 End: 02-08-2024 ambulatory [facility] Start: 02-08-2024 ambulatory [facility] Start: 12-01-2023 End: 12-01-2023 ambulatory Scooby Gary Work Phone: [facility] Work Phone: Start: 12-01-2023 End: 12-01-2023 Patient encounter procedure Scooby Gary Work Phone: [facility] Work Phone: Start: 11-30-2023 Non-patient / Non-visit Scooby Gary Work Phone: [facility] Work Phone: Start: 11-23-2023 Non-patient / Non-visit Scooby Gary Work Phone: [facility] Work Phone: Start: 11-17-2023 Non-patient / Non-visit Scooby Gary Work Phone: [facility] Work Phone: Start: 11-09-2023 Non-patient / Non-visit Scooby Gary Work Phone: [facility] Work Phone: Start: 11-09-2023 End: 11-09-2023 ambulatory EMELY HUNTER Not Available Start: 10-23-2023 End: 10-23-2023 ambulatory Scooby Gary [facility] Work Phone: Start: 10-23-2023 End: 10-23-2023 Departed Referred Scooby Gary Work Phone: [facility] Start: 10-23-2023 Non-patient / Non-visit Scooby Gary Work Phone: [facility] Work Phone: Start: 10-12-2023 Non-patient / Non-visit Scooby Gary Work Phone: [facility] Work Phone: Start: 10-07-2023 Non-patient / Non-visit Scooby Gary Work Phone: [facility] Work Phone: Start: 10-05-2023 Non-patient / Non-visit Scooby Gary Work Phone: [facility] Work Phone: Start: 03-03-2022 End: 03-03-[address] SCOOBY VEGA Facility:[facility] Start: 04-28-2021 Encounter for genera l adult medical examination without abnormal findings DR DALTON LOGAN [facility] Start: 04-22-2021 End: 04-23-[address] DALTON LOGAN Facility:[facility] Start: 04-22-2021 End: 04-23-2021 Encounter for general adult medical examination without abnormal findings DR DALTON LOGAN Facility:[facility] Procedures Date Procedure Procedure Detail Performing Clinician Start: 08-24-2024 Urnls dip stick/tabl et rgnt non-auto w/o micrscp Scooby Gary DO Work Phone: Start: 08-20-2024 US OB BPP W NON-STRESS [...] Follow-up visit Follow-up ASHLEY SHIN Start: 02-26-2024 [facility] B[facility] TEST SENT OUT C orey Gary DO Work Phone: Start: 02-16-2024 ALL CBC WITH AUTO DIFF Scooby Gary DO Work Phone: Start: 02-12-2024 End: 02-12-2024 Urnls dip stick/tablet rgnt non-auto w/o micrscp Scooby Gary DO Work Phone: Plan of Treatment Date Care Activity Detail Author Start: 09-12-2024 End: 09-12-2024 Patient encounter procedure 09/12/2024 9:00 AM EDT Routine [facility] [address] [place] [phone] Scooby Vega, DO [address] [place] [address] [facility] Start: 09-05-2024 End: 09-05-2024 Patient encounter procedure 09/05/2024 1:30 PM EDT Routine [facility] [address] [place] [phone] Scooby Vega, DO [address] [place] [address] [facility] Start: 08-24-2024 End: 08-24-2025 CULTURE, GROUP B STREP WITH SUSCEPTIBLITY CULTURE, GROUP B STREP WITH SUSCEPTIBLITY Lab Routine Third trimester Expected: 08/24/2024, Expires: 08/24/2025 [facility] Work Phone: Comment on above: Expected: 08/24/2024 , Expires: 08/24/2025 Start: 08-24-2024 End: 08-24-2024 Patient encounter procedure 08/24/2024 1:20 PM EST Routine [facility] [address] [place] [address] Scooby Vega, DO [address] [place] [address] [facility] Start: 08-18-2024 End: 08-18-2025 US for US OB follow up transabdominal approach Imaging Routine Multigravida of advanced maternal age in third trimester Expected: 08/18/2024, Expires: 08/18/2025 [facility] Work Phone: Comment on above: Expected: 08/18/2024 , Expires: 08/18/2025 Start: 08-18-2024 End: 08-18-2024 Patient encounter procedure 08/18/2024 9:20 AM EST Routine [facility] [address] [place] [phone] Scooby Vega, DO [address] [place], [place] [id number] [facility] Start: 08-01-2024 End: 08-01-2024 Patient encounter procedure 08/01/2024 1:20 PM EST Routine [facility] [address] [facility] [place] [phone] Scooby Vega, DO [address] [place] [address] [facility] Start: 07-18-2024 End: 07-18-2024 Patient encounter procedure 07/18/2024 2:30 PM EST Routine [facility] [address] [facility] [place] [address] Scooby Vega, DO [address] [place] [address] [facility] Start: 07-18-2024 End: 07-18-2025 US biophysical profile w non stress test US biophysical profile w non stress test Imaging Routine 30 weeks gestation of Third trimester Expected: 07/18/2024 (Approximate), Expires: 07/18/2025 [facility] Work Phone: Comment on above: Expected: 07/18/2024 (Approximate), Expires: 07/18/2025 Start: 06-30-2024 End: 06-30-2025 US biophysical profile w non stress test US biophysical profile w non stress test Imaging Routine Gestational diabetes mellitus (GDM), antepartum, gestational diabetes method of control unspecified Expected: 06/30/2024 (Approximate), Expires: 06/30/2025 [facility] Comment on above: Expected: 06/30/2024 (Approximate), Expires: 06/30/2025 Start: 06-30-2024 End: 06-30-2025 US for US OB follow up transabdominal approach Imaging Routine Gestational diabetes mellitus (GDM), antepartum, gestational diabetes method of control unspecified Expected: 06/30/2024, Expires: 06/30/2025 [facility] Work Phone: Comment on above: Expected: 06/30/2024 , Expires: 06/30/2025 Start: 06-30-2024 End: 06-30-2024 Patient encounter procedure 06/30/2024 11:50 AM EST Routine [facility] [address] [place] [phone] Scooby Vega, DO [address] [place], [place] [phone] [facility] Start: 06-25-2024 Urine culture [facility] Start: 06-25-2024 Bacteria identified in Urine by Culture Urine Culture [facility] Start: 06-02-2024 End: 06-02-2025 CBC panel - Blood by Automated count CBC Lab Routine Diabetes mellitus screening Expected: 06/02/2024 (Approximate), Expires: 06/02/2025 [facility] Work Phone: Comment on above: Expected: 06/02/2024 (Approximate), Expires: 06/02/2025 Start: 06-02-2024 End: 06-02-2025 Measurement of glucose 1 hour after glucose challenge for glucose tolerance test Glucose tolerance, 1 hour Lab Routine Diabetes mellitus screening Expected: 06/02/2024 (Approximate), Expires: 06/02/2025 [facility] Comment on above: Expected: 06/02/2024 (Approximate), Expires: 06/02/2025 Start: 06-02-2024 End: 06-02-2024 Patient encounter procedure 06/02/2024 10:10 AM EST Routine [facility] [address] [facility] [place] [phone] Scooby Vega, DO [address] [place] [address] [facility] Start: 05-02-2024 End: 05-02-2024 Patient encounter procedure 05/02/2024 3:30 PM EST Routine [facility] [address] [place] [address] Emely Hunter PA [address] [place] [address] [facility] Start: 05-02-2024 End: 10-30-2024 [...] EST Office Visit [facility] [address] [facility] [place] [phone] Scooby Vega DO [address] [facility] [address] [place] [address] [facility] Start: 04-04-2024 End: 04-04-2024 [...] Treatment [facility] [address] [facility] [address] [place] [address] Gretchen Moreno, PT [facility] Start: 03-23-2024 End: 03-23-2024 ambulatory 03/23/2024 1:00 PM EDT Treatment [facility] [address] [facility] [address] [place] [address] Gretchen Moreno, PT [facility] Start: 03-18-2024 End: 03-18-2024 ambulatory 03/18/2024 1:30 PM EDT Treatment [facility] [address] [facility] [address] [place] [address] Grtechen Moreno, PT [facility] Start: 03-11-2024 End: 03-11-2024 ambulatory 03/11/2024 1:30 PM EDT Treatment [facility] [address] [facility] [address] [place] [address] Gretchen Moreno, PT [facility] Start: 03-07-2024 End: 03-07-2024 Patient encounter procedure 03/07/2024 10:10 AM EDT Routine [facility] [address] [facility] [place] [phone] Scooby Vega, DO [address] [facility] [place] [address] [facility] Start: 03-03-2024 End: 03-03-2024 ambulatory 03/03/2024 10:30 AM EDT Treatment [facility] [address] [facility] [address] [place] [address] Gretchen Moreno, PT [facility] Start: 02-26-2024 End: 02-26-2024 ambulatory 02/26/2024 1:30 PM EDT Treatment [facility] [address] [facility] [address] [place] [address] Gretchen Moreno, PT Arrived [facility] Comment on above: Arrived Start: 02-25-2024 End: 02-25-2024 ambulatory 02/25/2024 10:30 AM EDT Treatment [facility] [address] [facility] [address] [place] [address] Gretchen Moreno, PT [facility] Start: 02-17-2024 End: 02-17-2024 ambulatory 02/17/2024 12:00 PM EDT Treatment [facility] [address] [facility] [address] [place] [address] Gretchen Moreno, PT [facility] Start: 02-12-2024 End: 02-11-2025 ABO/Rh ABO/Rh Lab Routine Missed menses Expected: 02/12/2024 (Approximate), Expires: 02/11/2025 [facility] Comment on above: Expected: 02/12/2024 (Approximate), Expires: 02/11/2025 Start: 02-12-2024 End: 02-11-2025 Blood type and Indirect antibody screen panel - Blood Type and screen Lab Routine Missed menses Expected: 02/12/2024 (Approximate), Expires: 02/11/2025 [facility] Work Phone: Comment on above: Expected: 02/12/2024 (Approximate), Expires: 02/11/2025 Start: 02-12-2024 End: 02-11-2025 US Pelvis transvaginal US OB transvaginal Imaging Routine Missed menses Expected: 02/12/2024 (Approximate), Expires: 02/11/2025 [facility] Comment on above: Expected: 02/12/2024 (Approximate), Expires: 02/11/2025 Start: 02-12-2024 End: 02-12-2024 ambulatory 02/12/2024 10:30 AM EDT Initial [facility] [address] [place] [address] [facility] Start: 02-12-2024 End: 02-12-2024 Professional / ancillary services management 02/12/2024 10:00 AM EDT Ancillary Procedure [facility] [address] [place] [address] [facility] Start: 02-10-2024 End: 02-10-2024 ambulatory 02/10/2024 5:00 PM EDT Evaluation [facility] [address] [facility] [address] [place] [phone] Gretchen Moreno, PT Arrived [facility] Comment on above: Arrived Bacteria identified in Urine by Culture Urine culture Microbiology Routine Missed menses Ordered: 02/12/2024 [facility] Comment on above: Ordered: 02/12/2024 CBC W Auto Different ial panel - Blood CBC and differential Lab Routine Missed menses Ordered: 02/12/2024 [facility] Comment on above: Ordered: 02/12/2024 CHLAMYDIA TRACHOMATI S (GENITO/STI) CHLAMYDIA TRACHOMATIS (GENITO/STI) Lab Routine STD exposure Ordered: 05/02/2024 [facility] Comment on above: Ordered: 05/02/2024 Cytology Cervical or vaginal smear or scraping study Pap Smear Pathology and Cytology Routine Well woman exam with routine gynecological exam Ordered: 05/02/2024 [facility] Comment on above: Ordered: 05/02/2024 Hemoglobin A1c/Hemoglobin.total in Blood Hemoglobin A1c Lab Routine Missed menses Ordered: 02/12/2024 [facility] Comment on above: Ordered: 02/12/2024 Hepatitis B virus surface Ag [Presence] in Serum or Plasma by Immunoassay Hepatitis B surface antigen Lab Routine Missed menses Ordered: 02/12/2024 [facility] Comment on above: Ordered: 02/12/2024 Hepatitis C virus Ab [Presence] in Serum or Plasma by Immunoassay Hepatitis C antibody Lab Routine Missed menses Ordered: 02/12/2024 [facility] Comment on above: Ordered: 02/12/2024 HIV-1/HIV-2 antigen/antibody combination immunoassay HIV-1 and HIV-2 antibodies Lab Routine Missed menses Ordered: 02/12/2024 [facility] Comment on above: Ordered: 02/12/2024 Human papilloma viru s DNA [Presence] in Unspecified specimen by Probe with amplification HPV DNA probe, amplified Microbiology Routine Well woman exam with routine gynecological exam Ordered: 05/02/2024 [facility] Comment on above: Ordered: 05/02/2024 Neisseria gonorrhoea e DNA [Presence] in Unspecified specimen by JUAN ANTONIO with probe detection Neisseria gonorrhea DNA probe, direct Lab Routine STD exposure Ordered: 05/02/2024 [facility] Comment on above: Ordered: 05/02/2024 Reagin Ab [Presence] in Serum by RPR RPR Lab Routine Missed menses Ordered: 02/12/2024 [facility] Comment on above: Ordered: 02/12/2024 Rubella antibody, IgG Rubella an tibody, IgG Lab Routine Missed menses Ordered: 02/12/2024 [facility] Comment on above: Ordered: 02/12/2024 SURESWAB(R) ADVANCED VAGINITIS PLUS, TMA SURESWAB(R) ADVANCED VAGINITIS PLUS, TMA Pathology and Cytology Routine Vaginal discharge Ordered: 05/02/2024 [facility] Work Phone: Comment on above: Ordered: 05/02/2024 XR Hip - left 2 Views [facility] Payers Date Payer Category Payer Private Health Insurance [facility] [employer] [id number] 2022 Unknown [facility] [place] [id number] 2022-Present [phone] [address] [place] [address] [id number] 1987 Unknown [id number] 2.16.840.1.733035.3.579.2 .593 1987 Unknown [id number] 2.16.840.1.719879.3.579.2 .593 1987 Unknown [id number] 2.16.840.1.614219.3.579.2 .1285 1987 Unknown [id number] 2.16840.1.690390.3.579.2 .1285 1987 Unknown [id number] 2.16840.1.631670.3.579.2 .1285 1987 Unknown [id number] 2.840.1.196833.3.579.2 .1258 1987 Unknown [id number] 2.840.1.358977.3.579.2 .1258 1987 Unknown [id number] 2.840.1.861100.3.579.2 .1258 1987 Unknown [id number] 2.840.1.343756.3.579.2 .1258 1987 Unknown [id number] 2.840.1.195564.3.579.2 .1258 1987 Unknown [id number] 2.840.1.308483.3.579.2 .1258 1987 Unknown [id number] 2.840.1.211849.3.579.2 .1258 1987 Unknown [id number] 2.840.1.865752.3.579.2 .1258 1987 Unknown [id number] 2.840.1.042351.3.579.2 .1258 1987 Unknown [id number] 2.840.1.500456.3.579.2 .1258 1987 Unknown [id number] 2.16840.1.819091.3.579.2 .1258 1987 Unknown [id number] 2.16840.1.744250.3.579.2 .1258 1987 Unknown [id number] 2.16840.1.853990.3.579.2 .1259 1987 Unknown [id number] 2.16.840.1.306103.3.579.2 .9 1987 Unknown [id number] 2.16.840.1.245532.3.579.2 .9 1987 Unknown [id number] 2.16.840.1.577608.3.579.2 .9 1987 Unknown [id number] 2.16.840.1.770057.3.579.2 .9 1987 Unknown [id number] 2.16.840.1.489540.3.579.2 .1259 1959 Unknown [id number] Social History Date Type Detail Facility Tobacco smoking stat [facility] Unknown if ever smoked [facility] Work Phone: Start: 1985 Sex Assigned At Female F [facility] Start: 02-26-2023 [facility] Start: 11-09-2023 History of Social function [facility] Start: 11-09-2023 Tobacco use panel [facility] Start: 01-01-2024 [facility] Start: 1985 Sex assigned at Not on file [facility] Tobacco smoking stat [facility] Unknown if ever smoked [facility] Work Phone: Start: 06-27-2024 [facility] Medical Equipment Procedure Code Equipment Code Equipment Origin al Text Equipment Identifier Dates 1 strip by In Vi tro route Daily Use in the morning prior to breakfast, 1 hour after each meal for a total of 4times daily. [id number] Start: 06-02-2024 End: 07-02-2024 1 each by In Vit ro route Daily Use to check FSBS four times daily [id number] Start: 06-02-2024 End: 07-02-2024 Goals Date Patient Goal Desired Activity /State Personal health goal Clinical Notes 02-10-2024 to 08-24-2024 Belle Villanueva LPN - 08/24/2024 1:20 PM Abel Aguilartler, TECHNICAL SALES REPRESENTATIVE - 08/18/2024 9:20 AM Abel Garciar, TECHNICAL SALES REPRESENTATIVE - 08/01/2024 1:20 PM ESTSusaeze Garciar, TECHNICAL SALES REPRESENTATIVE - 07/18/2024 2:30 PM EST Note Date & Type Note Facility 08-24-2024 History of Present illness Narrative Reason for [...] nursing note reviewed. Exam conducted with a amusement machine mechanic present. Vitals: Estimated body mass index is 24.18 kg/m as calculated from the following: Height as of 04/21/23: 5' 7 . Weight as of this encounter: 154 lb 6.4 oz. BP: 112/68 Patient's last menstrual period was 12/18/2023. ASSESSMENT & PLAN ICD-10-CM 1. Third trimester Z34.93 POCT urinalysis dipstick manually resulted CULTURE, GROUP B STREP WITH SUSCEPTIBLITY CULTURE, GROUP B STREP WITH SUSCEPTIBLITY CANCELED: CULTURE, GROUP B STREP WITH SUSCEPTIBLITY 2. 35 weeks gestation of Z3A.35 Patient is doing well but has complaints of being tired and having maternal discomfort due to . Patient verbalized frequent movement and was instructed to perform kick counts three times per day. labor precautions were given, LARC consent was signed/declined, and GBS was obtained. Orders Placed This Encounter Procedures CULTURE, GROUP B STREP WITH SUSCEPTIBLITY POCT urinalysis dipstick manually resulted Follow Up: Patient is to return to office in 1 week for routine OB appointment Documented by Belle Villanueva LPN on behalf of: Scooby Vega DO documented in this encounter [facility] 08-18-2024 History of Present illness Narrative Reason [...] nursing note reviewed. Exam conducted with a amusement machine mechanic present. Vitals: Estimated body mass index is [...] Scooby Vega DO documented in this encounter [facility] 08-01-2024 History of Present illness Narrative Reason [...] 81 mg, Daily Blood Glucose Monitoring Suppl ([employer] Glucometer) w/Device kit 1 kit, Does not [...] nursing note reviewed. Exam conducted with a amusement machine mechanic present. Vitals: Estimated body mass index is [...] Scooby Vega DO documented in this encounter [facility] 07-18-2024 History of Present illness Narrative Reason [...] nursing note reviewed. Exam conducted with a amusement machine mechanic present. Vitals: Estimated body mass index is [...] of:Emely Hunter PA-C documented in this encounter [facility] 06-30-2024 History of Present illness Narrative Reason [...] 81 mg, Daily Blood Glucose Monitoring Suppl ([employer] Glucometer) w/Device kit 1 kit, Does not [...] Scooby Vega DO documented in this encounter [facility] 06-02-2024 History of Present illness Narrative Reason [...] nursing note reviewed. Exam conducted with a amusement machine mechanic present. Vitals: Estimated body mass index is [...] Scooby Vega DO documented in this encounter [facility] 05-02-2024 History of Present illness Narrative Reason [...] nursing note reviewed. Exam conducted with a amusement machine mechanic present. Vitals: Estimated body mass index is [...] obtained without difficulty and patient was given [facility] order to have obtained. Orders [...] weeks for routine OB appointment Documented by Etsee Cobb LPN on behalf of: JORDYN Fonseca documented in this encounter [facility] 04-04-2024 History of Present illness Narrative Reason [...] nursing note reviewed. Exam conducted with a amusement machine mechanic present. Vitals: Estimated body mass index is [...] Aspirin. Discussed again in regards to seeing [facility] & referral will be completed. Patient to have NST/BPP starting at 32 weeks gestation. Patient will have Anatomy Scan done at [facility]. Patient is Rh Negative and will [...] Scooby Vega DO documented in this encounter [facility] 04-01-2024 History of Present illness Narrative Physical [...] and it pops a lot randomly. Precautions: [place] Subjective: Pt states overall, ROM has improved. [...] to be instructed in home exercise program. Shelter Goals: To be met in 10 weeks [...] and it pops a lot randomly. Precautions: [place] Subjective: Pt states range of motion of [...] to be instructed in home exercise program. Photographer Aerial Goals: To be met in 10 weeks [...] encounter [facility] 03-18-2024 History of Present illness Narrative Physical [...] and it pops a lot randomly. Precautions: [place] Subjective: Pt states she feels like her [...] to be instructed in home exercise program. Shelter Goals: To be met in 10 weeks [...] encounter [facility] 03-11-2024 History of Present illness Narrative Physical [...] and it pops a lot randomly. Precautions: [place] Subjective: Pt states overall she believes hip [...] to be instructed in home exercise program. Shelter Goals: To be met in 10 weeks [...] encounter [facility] 03-07-2024 History of Present illness Narrative Reason [...] nursing note reviewed. Exam conducted with a amusement machine mechanic present. Vitals: Estimated body mass index is [...] or undercooked meat, and stay away from [facility]. Patient has been consulted regarding any further do's and don'ts of . Patient voiced understanding and all questions and concerns were answered. Follow Up: Patient is to return in 4 weeks for routine OB appointment. Documented by Kalie Loera LPN on behalf of: Scooby Vega DO documented in this encounter [facility] 03-03-2024 History of Present illness Narrative Physical [...] and it pops a lot randomly. Precautions: [place] Subjective: Pt states she has been doing [...] to be instructed in home exercise program. Photographer Aerial Goals: To be met in 10 weeks [...] inch knee to bed distance with left CAHRLES testing indicating improved tissue quality and decrease pain. Goal 5: Pt to score no less than 65/80 on LEFS indicating improved QOL. Pt will benefit from skilled PT for 2-3x/week from 02/10/2024 to 04/20/2024 to address the above impairments. I hereby deem this POC medically necessary. Please sign below. Date: documented in this encounter [facility] 02-26-2024 History of Present illness Narrative Physical [...] and it pops a lot randomly. Precautions: [place] Subjective: Pt states she was able to [...] to be instructed in home exercise program. Photographer Aerial Goals: To be met in 10 weeks [...] encounter [facility] 02-17-2024 History of Present illness Narrative Physical [...] and it pops a lot randomly. Precautions: [place] Subjective: Pt states she has not done [...] to be instructed in home exercise program. Shelter Goals: To be met in 10 weeks [...] encounter [facility] 02-12-2024 History of Present illness Narrative Reason [...] or undercooked meat, and stay away from [facility]. Patient has also been advised to [...] Estee Cobb LPN documented in this encounter [facility] 02-10-2024 History of Present illness Narrative Physical [...] and it pops a lot randomly. Precautions: [place] Subjective: left hip ant and lateral Pain: [...] to be instructed in home exercise program. Shelter Goals: To be met in 10 weeks [...] sign below. Date: documented in this encounter [facility] Evaluation note No assessment inform ation available [facility] Work Phone: Evaluation note Diagnosis Onset Date Left hip pain acute [facility] Work Phone: Evaluation note* Diagnosis Pain of left hip- Primary Hip flexor tendinitis, left documented [facility] Diagnosis Pain of left hip- Primary Hip flexor tendinitis, left documented in this encounter [facility]* Diagnosis Second trimester state, incidental [...] third trimester documented in [facility] Diagnosis Third trimester state, incidental 35 weeks gestation of documented in this encounter [facility] Summary Purpose Family History No Family History Records FoundNo Family History Records FoundNo Family History Records FoundNo Family History Records Found Advance Directives Advance Directive Response Recorded Date/ Time Advance Directives No November 30 3:47pm Advance Directive Response Recorded Date/ Time Advance Directives No November 30 2:47pm Additional Source Comments INFORMATION SOURCE (unrecogn ized section and content) DATE CREATED AUTHOR 03/22/2022 [facility] DATE CREATED AUTHOR AUTHOR'S ORGANIZ ATION 04/05/2024 [facility] DATE CREATED AUTHOR AUTHOR'S ORGANIZ ATION 07/03/2024 [facility] DATE CREATED AUTHOR AUTHOR'S ORGANIZ ATION 08/20/2024 [facility] EPIC Care Teams (unrecognized [...] 2023 Scooby Vega Attending Provider Active Start: vidal 2023 Team Status: Inactive Member Role Status [...] December 01, 2023 End: December 01, 2023 Junior Recruiter Relationship Specialty Start Date End Date Jen Granados MD [address] [facility] [place] [phone] PCP - General Family Medicine 9/19/23 Junior Recruiter Relationship Specialty Start Date End Date Jen Granados MD [address] [facility] [place] [address] PCP - General Family Medicine 03/10/23 Junior Recruiter Relationship Specialty Start Date End Date Jen Granados MD [address] [facility] [place] [address] PCP - General Family Medicine 03/10/23 Junior Recruiter Relationship Specialty Start Date End Date Jen Granados MD [address] [facility] [place] [address] PCP - General Family Medicine 03/10/23 Junior Recruiter Relationship Specialty Start Date End Date Jen Granados MD [address] [facility] [place] [address] PCP - General Family Medicine 03/10/23 Junior Recruiter Relationship Specialty Start Date End Date Jen Granados MD [address] [facility] [place] [address] PCP - General Family Medicine 03/10/23 Junior Recruiter Relationship Specialty Start Date End Date Jen Granados MD [address] [facility] [place] [address] PCP - General Family Medicine 03/10/23 Junior Recruiter Relationship Specialty Start Date End Date Jen Granados MD [address] [facility] [address] PCP - General Family Medicine 03/10/23 Junior Recruiter Relationship Specialty Start Date End Date Jen Granados MD [address] [facility] [place] [phone] PCP - General Family Medicine 03/10/23 Junior Recruiter Relationship Specialty Start Date End Date Jen Granados MD [address] [facility] [place] [phone] PCP - General Family Medicine 03/10/23 Junior Recruiter Relationship Specialty Start Date End Date Jen Granados MD [address] [facility] [place] [address] PCP - General Family Medicine 03/10/23 Junior Recruiter Relationship Specialty Start Date End Date Jen Granados MD [address] [facility] [place] [phone] PCP - General Family Medicine 03/10/23 Junior Recruiter Relationship Specialty Start Date End Date Jen Granados MD [address] [facility] [place] [address] PCP - General Family Medicine 03/10/23 Junior Recruiter Relationship Specialty Start Date End Date Jen Granados MD [address] [facility] [place] [phone] PCP - General Family Medicine 03/10/23 Junior Recruiter Relationship Specialty Start Date End Date Jen Granados MD [address] [facility] [place] [phone] PCP - General Family Medicine 03/10/23 Team [...] Active Start: June 25, 2024 Jae Cervantes , Attending Provider Active S tart: June 25, 2024 Team Status: Inactive Member Role Status Dates Jen Granados MD Primary Care Provider Active Start: June 25, 2024 End: June 25, 2024 Jae Cervantes , Attending Provider Active S tart: June 25, 2024 End: June 25, 2024 Junior Recruiter Relationship Specialty Start Date End Date Jen Granados MD [address] [facility] [place] [phone] PCP - General Family Medicine 03/10/23 Junior Recruiter Relationship Specialty Start Date End Date Jen Granados MD [address] [facility] [place] [phone] PCP - General Family Medicine 03/10/23 Junior Recruiter Relationship Specialty Start Date End Date Jen Granados MD [address] [facility] [place] [phone] PCP - General Family Medicine 03/10/23 Junior Recruiter Relationship Specialty Start Date End Date Jen Granados MD [address] [facility] [place] [phone] PCP - General Family Medicine 03/10/23 Junior Recruiter Relationship Specialty Start Date End Date Jen Granados MD [address] [facility] [place] [phone] PCP - General Family Medicine 03/10/23 Junior Recruiter Relationship Specialty Start Date End Date Jen Granados MD [address] [place] [phone] PCP - General Family Medicine 03/10/23 Junior Recruiter Relationship Specialty Start Date End Date Jen Granados MD [address] [place] [phone] PCP - General Family Medicine 03/10/23 Goals [...] LOW COMPLEX 20 MINS Ashley Shin MD [address] [place] [address] Gretchen Moreno PT Referral ID Status Reason Start Date Expiration Date V isits Requested Visits Authorized [id number] Authorized 02/10/2024 08/08/2024 99 99 Reason Comments [...] BE BASED ON THE PRIMARY CLINICAL RECORDS. [employer] provides no warranty or guarantee of the accuracy or completeness of information in this document.
[2024-08-26 19:27] VITALS: BP 127/70; PULSE 87
== END 2024-08-26 19:50 | disposition home or self-care (01) ==
LOC: US 01:49 → FBC 18:54
PROVIDERS: PCP Family Medicine; Visit Provider Obstetrics & Gynecology
DX: O24.419 Gestational diabetes mellitus in pregnancy, unspecified control (principal); Z3A.36 36 weeks gestation of pregnancy
CPT/HCPCS: 76816; 76818

== ENCOUNTER 2024-08-30 17:48 | Outpatient (OUT) | payer OTHER, SELFPAY ==
--- OUTSIDE RECORDS SUMMARY | 2024-08-30 17:51 | XMS_ITS | CCD ---
Author Organization [facility] Care Team Providers Care Global Chief Experience Officer Name Role Phone DOREEN, DR HOFFMAN Attending Unavailable DARWIN, DR JEN Ramirez Primary Care Unavailable DOREEN, DR HOFFMAN Admitting Unavailable DOREEN, DR HOFFMAN Consulting Unavailable GARY, DR PAUL Admitting Unavailable GARY, DR PAUL Consulting Unavailable GARY, DR PAUL Attending Unavailable DARWIN, DR JEN Ramirez Primary Care Unavailable Scooby Vega Attending Provider [phone] Jen Granados MD Primary Care Provider [phone] ALEIDA ASHLEY K Attending Unavailable JEN GRANADOS [...] Unavailable GARYDMY Attending Unavailable GARYDMY Attending Unavailable GARY, SCOOBY Attending Unavailable EMELY HUNTER Attending Unavailable MORENO, GRETCHEN Attending Unavailable ROCK, ASHLEY Referring Unavailable MORENO GRETCHEN Attending Unavailable ROCK, ASHLEY Referring Unavailable MORENO, GRETCHEN Attending Unavailable ROCK, ASHLEY Referring Unavailable MORENO, GRETCHEN Attending Unavailable ROCK, ASHLEY Referring Unavailable GARY, SCOOBY Attending Unavailable MORENO, GRETCHEN Attending Unavailable ROCK, ASHLEY Referring Unavailable MORENO, GRETCHEN Attending Unavailable ROCK, ASHLEY Referring Unavailable MORENO, GRETCHEN Attending Unavailable ROCK, ASHLEY Referring Unavailable GRETCHEN MORENO Attending Unavailable ASHLEY ROCK Referring Unavailable SCOOBY VEGA Attending Unavailable EMELY HUNTER Attending Unavailable SCOOBY VEGA Attending Unavailable SCOOBY VEGA Attending Unavailable Allergies Allergy Classification Reported Allergen(s) Allergy Type Date of Onset Reaction(s) Facility (20 sources) Amoxicillin; Translations: [AMOXICILLIN] Drug Allergy 3 GI intolerance [facility] (3 sources) 12 Hour Decongestant Allergy to substance 3 Hives [facility] Medications Current Medications Medication Drug [...] 02/12/2024 Discontinued (Other) omega-3 acid ethyl esters (group home) 1000 mg oral capsule (6 sources) take [...] UA Negative Negative - 4(70) +++ mg/dL [facility] Blood, UA Negative Negative - 50 Ulises/mcL [facility] Clarity, UA Clear [facility] Color, UA Yellow [facility] Glucose, UA Negative Negative - 2000(110) ++++ mg/dL [facility] Interpretation and review of laboratory results Abnormal [facility] Ketones, UA Negative Negative - 160(16) ++++ mg/dL [facility] Leukocytes, UA Trace Negative - 500+++ Clair/mcL [facility] Nitrite, UA Negative Negative - Positive [facility] pH, UA 7 5 - 9 [facility] Protein, UA Negative Negative - 2000(20) ++++ mg/dL [facility] Spec Grav, UA 1.015 1 - 1.03 [facility] Urobilinogen, UA 0.2 0.2 - 12 mg/dL [facility] US OB BPP W NON-STRESS on 08-20-2024 [place] [address] Ultrasound Report Signed Patient: RAPHAEL ELIZABETH MR#: [id number] : 1985 Acct:[id number] Age/Sex: 38 / F ADM Date: 08/19/24 Loc: US Attending Dr: Scooby Vega D.O. Ordering Physician: Scooby Vega D.O. Date of Service: 08/19/24 Procedure(s): US OB BPP w non-stress Accession Number(s): [id number] cc: Jen Granados M.D.; Scooby Vega D.O. [place] [id number] Patient Name: RAPHAEL ELIZABETH MRN: [facility]:[id number] date: 1985 Sex: F Assigned Patient Location: [facility] Current Patient Location: Accession/Order Number: [id number] Exam Date: 08/20/2024 08:58 Report Date: 08/20/2024 [...] Chan Hudson M.D.08/20/2024 9:03 AM Dictation Location: [place] [address] Electronically authenticated by: [id number] Y Date: 08/20/2024 09:03 Dictated By: Chan Hudson M.D. Signed By: 08/20/24904 DD/ 2 TD/TT: Safety Fire Boss: [facility] Radiology, Radiologdora guillen MD - 08/20/2024 [place] [address] Ultrasound Report Signed Patient: RAPHAEL ELIZABETH MR#: [id number] : 1985 Acct:[id number] Age/Sex: 38 / F ADM Date: 08/19/24 Loc: US Attending Dr: Scooby Vega D.O. Ordering Physician: Scooby Vega D.O. Date of Service: 08/19/24 Procedure(s): US OB BPP w non-stress Accession Number(s): [id number] cc: Jen Granados M.D.; Scooby Vega D.O. The [place] [id number] Patient Name: RAPHAEL ELIZABETH MRN: [facility]:[id number] date: 1985 Sex: F Assigned Patient Location: [facility] Current Patient Location: Accession/Order Number: [id number] Exam Date: 08/20/2024 08:58 Report Date: 08/20/2024 [...] Chan Hudson M.D.08/20/2024 9:03 AM Dictation Location: [place] [address] Electronically authenticated by: [id number] Y Date: 08/20/2024 09:03 Dictated By: Chan Hudson M.D. Signed By: 08/20/24904 DD/ 2 TD/TT: Safety Fire Boss: [facility] Radiology Study observation (narrative) [facility] US OB BPP W NON-STRESS Ordered By: Radiologist Radiology on 08-20-2024 [facility] Work Phone: Urinalysis macro (dipstick) panel (U)on 08-18-2024 Bilirubin, UA Negative Negative - 4(70) +++ mg/dL [facility] Blood, UA Negative Negative - 50 Ulises/mcL [facility] Clarity, UA Clear [facility] Color, UA Yellow [facility] Glucose, UA Negative Negative - 2000(110) ++++ mg/dL [facility] Interpretation and review of laboratory results Abnormal [facility] Ketones, UA Negative Negative - 160(16) ++++ mg/dL [facility] Leukocytes, UA Negative Negative - 500+++ Clair/mcL [facility] Nitrite, UA Negative Negative - Positive [facility] pH, UA 7 5 - 9 [facility] Protein, UA Trace Negative - 2000(20) ++++ mg/dL [facility] Spec Grav, UA 1.025 1 - 1.03 [facility] Urobilinogen, UA 0.2 0.2 - 12 mg/dL [facility] US OB BPP W NON-STRESS on 08-12-[address] [address] Ultrasound Report Signed Patient: RAPHAEL ELIZABETH MR#: [id number] : 1985 Acct:[id number] Age/Sex: 38 / F ADM Date: 08/12/24 Loc: US Attending Dr: Scooby Vega D.O. Ordering Physician: Scooby Vega D.O. Date of Service: 08/12/24 Procedure(s): US OB BPP w non-stress Accession Number(s): [id number] cc: Jen Granados M.D.; Scooby Vega D.O. The [address] [address] Patient Name: RAPHAEL ELIZABETH MRN: [facility]:[id number] date: 1985 Sex: F Assigned Patient Location: [facility] Current Patient Location: Accession/Order Number: [id number] Exam Date: 08/12/2024 22:10 Report Date: 08/12/2024 22:12 At the request of: SCOOBY VEGA DO Procedure: US OB BPP w non-stress Biophysical profile. Reason for exam: GBM. COMPARISON: Biophysical profile 08/06/2024. TECHNIQUE: Transabdominal imaging of the gravid uterus was obtained. FINDINGS: Transmission Maintenance Supervisor reports the BPP is 8 out of 8. SIDDHARTHA is normal 11.2 cm. heart rate 142 bpm. US/US OB BPP w non-stress IMPRESSION: BPP 8 out of 8. Impression dictated by: Lucas Martin Jr., D.O.08/12/2024 10:12 PM Dictation Location: [place] [address] Electronically authenticated by: [id number] Y Date: 08/12/2024 22:12 Dictated By: Lucas Martin M.D. Signed By: 08/12/242213 DD/ 11 TD/TT: Safety Fire Boss: [facility] Radiology, Radiologdora guillen MD - 08/12/2024 [place] [address] Ultrasound Report Signed Patient: RAPHAEL ELIZABETH MR#: [id number] : 1985 Acct:[id number] Age/Sex: 38 / F ADM Date: 08/12/24 Loc: US Attending Dr: Scooby Vega D.O. Ordering Physician: Scooby Vega D.O. Date of Service: 08/12/24 Procedure(s): US OB BPP w non-stress Accession Number(s): [id number] cc: Jen Granados M.D.; Scooby Vega D.O. [place] [address] Patient Name: RAPHAEL ELIZABETH MRN: [id number]:[id number] date: 1985 Sex: F Assigned Patient Location: [facility] Current Patient Location: Accession/Order Number: [id number] Exam Date: 08/12/2024 22:10 Report Date: 08/12/2024 22:12 At the request of: SCOOBY VEGA DO Procedure: US OB BPP w non-stress Biophysical profile. Reason for exam: GBM. COMPARISON: Biophysical profile 08/06/2024. TECHNIQUE: Transabdominal imaging of the gravid uterus was obtained. FINDINGS: Transmission Maintenance Supervisor reports the BPP is 8 out of 8. SIDDHARTHA is normal 11.2 cm. heart rate 142 bpm. US/US OB BPP w non-stress IMPRESSION: BPP 8 out of 8. Impression dictated by: Lucas Martin Jr., D.O.08/12/2024 10:12 PM Dictation Location: [place] [address] Electronically authenticated by: [id number] Y Date: 08/12/2024 22:12 Dictated By: Lucas Martin M.D. Signed By: 08/12/242213 DD/ 11 TD/TT: Safety Fire Boss: [facility] Radiology Study observation (narrative) [facility] US OB BPP W NON-STRESS Ordered By: Radiologist Radiology on 08-12-2024 [facility] Work Phone: US OB BPP W NON-STRESS on 08-06-[address] [address] Ultrasound Report Signed Patient: RAPHAEL ELIZABETH MR#: [id number] : 1985 Acct:[id number] Age/Sex: 38 / F ADM Date: 08/05/24 Loc: US Attending Dr: Scooby Vega D.O. Ordering Physician: Scooby Vega D.O. Date of Service: 08/05/24 Procedure(s): US OB BPP w non-stress Accession Number(s): [id number] cc: Jen Granados M.D.; Scooby Vega D.O. [place] [phone] Patient Name: RAPHAEL ELIZABETH MRN: [facility]:[id number] date: 1985 Sex: F Assigned Patient Location: [facility] Current Patient Location: Accession/Order Number: [id number] Exam Date: 08/05/2024 19:09 Report Date: 08/06/2024 [...] Signed By: 08/06/24 0753 DD/ 0751 TD/TT: Safety Fire Boss: [facility] Radiology, Radiologi MD wilmer - 08/06/2024 [place] [address] Ultrasound Report Signed Patient: RAPHAEL ELIZABETH MR#: [id number] : 1985 Acct:[id number] Age/Sex: 38 / F ADM Date: 08/05/24 Loc: US Attending Dr: Scooby Vega D.O. Ordering Physician: Scooby Vega D.O. Date of Service: 08/05/24 Procedure(s): US OB BPP w non-stress Accession Number(s): [id number] cc: Jen Granados M.D.; Scooby Vega D.O. The [place] [phone] Patient Name: RAPHAEL ELIZABETH MRN: [id number] date: 1985 Sex: F Assigned Patient Location: [facility] Current Patient Location: Accession/Order Number: [id number] Exam Date: 08/05/2024 19:09 Report Date: 08/06/2024 [...] Signed By: 08/06/24 0753 DD/ 075 TD/TT: Safety Fire Boss: [facility] Radiology Study observation (narrative) [facility] US OB BPP W NON-STRESS Ordered By: Radiologist Radiology on 08-06-2024 [facility] Work Phone: US OB BPP W NON-STRESS on 08-01-2024 [place] [address] Ultrasound Report Signed Patient: RAPHAEL ELIZABETH MR#: [id number] : 1985 Acct:[id number] Age/Sex: 38 / F ADM Date: 07/29/24 Loc: US Attending Dr: Scooby Vega D.O. Ordering Physician: Scooby Vega D.O. Date of Service: 07/29/24 Procedure(s): US OB BPP w non-stress Accession Number(s): [id number] cc: Jen Granados M.D.; Scooby Vega D.O. [place] [phone] Patient Name: RAPHAEL ELIZABETH MRN: [facility]:[id number] date: 1985 Sex: F Assigned Patient Location: [facility] Current Patient Location: Accession/Order Number: [id number] Exam Date: 07/29/2024 19:04 Report Date: 08/01/2024 [...] M.D. Signed By: 08/01/24713 DD/ 0 TD/TT: Safety Fire Boss: [facility] Radiology, Radiologi MD wilmer - 08/01/2024 [place] [address] Ultrasound Report Signed Patient: RAPHAEL ELIZABETH MR#: [id number] : 1985 Acct:[id number] Age/Sex: 38 / F ADM Date: 07/29/24 Loc: US Attending Dr: Scooby Vega D.O. Ordering Physician: Scooby Vega D.O. Date of Service: 07/29/24 Procedure(s): US OB BPP w non-stress Accession Number(s): [id number] cc: Jen Granados M.D.; Scooby Vega D.O. The [place] [address] Patient Name: RAPHAEL ELIZABETH MRN: [facility]:[id number] date: 1985 Sex: F Assigned Patient Location: [facility] Current Patient Location: Accession/Order Number: [id number] Exam Date: 07/29/2024 19:04 Report Date: 08/01/2024 [...] M.D. Signed By: 08/01/24713 DD/ 0 TD/TT: Safety Fire Boss: [facility] Radiology Study observation (narrative) [facility] US OB BPP W NON-STRESS Ordered By: Radiologist Radiology on 08-01-2024 [facility] Work Phone: Urinalysis macro (dipstick) panel (U)on 08-01-2024 Bilirubin, UA Negative Negative - 4(70) +++ mg/dL [facility] Blood, UA Negative Negative - 50 Ulises/mcL [facility] Clarity, UA Clear [facility] Color, UA Yellow [facility] Glucose, UA Negative Negative - 1999(110) ++++ mg/dL [facility] Interpretation and review of laboratory results Abnormal [facility] Ketones, UA Negative Negative - 160(16) ++++ mg/dL [facility] Leukocytes, UA Trace Negative - 500+++ Clair/mcL [facility] Nitrite, UA Negative Negative - Positive [facility] pH, UA 7.5 5 - 9 [facility] Protein, UA Negative Negative - 1999(20) ++++ mg/dL [facility] Spec Grav, UA 1.015 1 - 1.03 [facility] Urobilinogen, UA 0.2 0.2 - 12 mg/dL [facility] Urinalysis macro (dipstick) panel (U)on 07-18-2024 Bilirubin, UA Negative Negative - 4(70) +++ mg/dL [facility] Blood, UA Negative Negative - 50 Ulises/mcL [facility] Clarity, UA Clear [facility] Color, UA Yellow [facility] Glucose, UA Negative Negative - 1999(110) ++++ mg/dL [facility] Interpretation and review of laboratory results Normal [facility] Ketones, UA Negative Negative - 160(16) ++++ mg/dL [facility] Leukocytes, UA Negative Negative - 500+++ Clair/mcL [facility] Nitrite, UA Negative Negative - Positive [facility] pH, UA 7 5 - 9 [facility] Protein, UA Negative Negative - 1999(20) ++++ mg/dL [facility] Spec Grav, UA 1.025 1 - 1.03 [facility] Urobilinogen, UA 0.2 0.2 - 12 mg/dL [facility] ALL CBC WITH AUTO DIFFon BASOPHILS ABSOLUTE AUTO 0 [facility] Basophils/100 WBC (Bld) 0.2 % 0.2 - 2.0 % [facility] Eosinophils/100 WBC (Bld) 0.9 % 0.9 - 7.0 % [facility] Erythrocyte distribution width (RBC) [Ratio] 13 % 11.0 - 15.0 % [facility] Hematocrit (Bld) [Volume fraction] 32.2 % Low 36.0 - 48.0 % [facility] Hemoglobin (Bld) [Mass/Vol] 10.9 g/dL Low 12.0 - 16.0 g/dL [facility] IMMATURE GRANULOCYTES ABS AUTO 0.13 High [facility] Immature granulocytes/100 WBC (Bld) 1.4 % High 0.0 - 0.5 % [facility] Interpretation and review of laboratory results Abnormal [facility] LYMPHOCYTES ABSOLUTE AUTO 1.4 [facility] Lymphocytes/100 WBC (Bld) 15.4 % Low 20.5 - 60.0 % [facility] MCH (RBC) [Entitic mass] 32.7 pg 26.7 - 34.0 pg [facility] MCHC (RBC) [Mass/Vol] 33.9 g/dL 29.9 - 35.2 g/dL [facility] MCV (RBC) [Entitic vol] 96.7 fL 81.0 - 99.0 fL [facility] MONOCYTES ABSOLUTE AUTO 0.5 [facility] Monocytes/100 WBC (Bld) 4.8 % 1.7 - 12.0 % [facility] NEUTROPHILS ABSOLUTE AUTO 7.2 High [facility] Neutrophils/100 WBC (Bld) 77.3 % High 43.0 - 75.0 % [facility] Platelet mean volume (Bld) [Entitic vol] 9.2 fL Low 9.5 - 13.5 fL [facility] TBH EO # 0.1 [facility] TB PLT 229 [facility] RBC 3.33 Low [facility] WBC 9.3 [facility] Urinalysis macro (dipstick) panel (U)on 06-30-2024 Bilirubin, UA Negative Negative - 4(70) +++ mg/dL [facility] Blood, UA Negative Negative - 50 Ulises/mcL [facility] Clarity, UA Clear [facility] Color, UA Yellow [facility] Glucose, UA Negative Negative - 2000(110) ++++ mg/dL [facility] Interpretation and review of laboratory results Abnormal [facility] Ketones, UA Negative Negative - 160(16) ++++ mg/dL [facility] Leukocytes, UA Trace Negative - 500+++ Clair/mcL [facility] Nitrite, UA Negative Negative - Positive [facility] pH, UA 8.5 5 - 9 [facility] Protein, UA Positive Negative - 1999(20) ++++ mg/dL [facility] Comment on above: trace Spec Grav, UA 1.015 1 - 1.03 [facility] Urobilinogen, UA 0.2 0.2 - 12 mg/dL [facility] Basophils/100 WBC Manual cnt (Bld)on 06-25-2024 Basophils/100 WBC (Bld) Basophils/100 leukocytes in Blood by Manual count Low 0.2-2.0 [facility] Eosinophils/100 WBC Manual c nt (Bld)on 06-25-2024 Eosinophils/100 WBC (Bld) Eosinophils/100 leukocytes in Blood by Manual count 0.9-7.0 [facility] Erythrocyte distribution wid th Auto (RBC) [Ratio]on 06-25-2024 Erythrocyte distribution width (RBC) [Ratio] Erythrocyte distribution width [Ratio] by Automated count 11.0-15.0 [facility] Estimated glomerular filtrat ion rate (GFR) non- Americanon 06-25-2024 GFR/1.73 sq M.predicted among non-blacks MDRD (S/P/Bld) [Vol rate/Area] Estimated glomerular filtration rate (GFR) non- >=60 mL/min/1.73 m 2 [facility] Hematocrit Auto (Bld) [Volum e fraction]on 06-25-2024 Hematocrit (Bld) [Volume fraction] Hematocrit [Volume Fraction] of Blood by Automated count Low 36.0-48.0 [facility] Hemoglobin [Mass/volume] in Bloodon 06-25-2024 Hemoglobin (Bld) [Mass/Vol] Hemoglobin [Mass/volume] in Blood Low 12.0-16.0 [facility] Laboratory - Chemistry and C hemistry - challengeon 06-25-2024 Calcium [Mass/Vol] 8.2 mg/dL Low 8.5-10.1 [facility] Chloride [Moles/Vol] 99 mmol/L 98-107 [facility] CO2 [Moles/Vol] 21.2 mmol/L 21.0-32.0 [facility] Creatinine [Mass/Vol] 0.89 mg/dL 0.55-1.02 [facility] GFR/1.73 sq M.predicted MDRD (S/P/Bld) [Vol rate/Area] mL/min/{1.73_m2} >=60 mL/min/1.73 m 2 [facility] Glucose [Mass/Vol] 98 mg/dL 74-106 [facility] Potassium [Moles/Vol] 3.7 mmol/L 3.5-5.1 [facility] Sodium [Moles/Vol] 130 mmol/L Low 136-145 [facility] Urea nitrogen [Mass/Vol] 7.0 mg/dL 7.0-18.0 [facility] Urea nitrogen/Creatinine [Mass ratio] 7.9 mg/mg [facility] Bilirubin Ql (U) Negative NEGATIVE [facility] Glucose (U) [Mass/Vol] Negative NEGATIVE [facility] Ketones Ql (U) 15 mg/dL Abnormal NEGATIVE [facility] pH (U) 7.5 [pH] 5.0-9.0 [facility] Specific gravity (U) [Rel density] 1.015 1.005-1.025 [facility] Urobilinogen Qn (U) 1.0 {Ree'U}/dL 0.2-1.0 [facility] Laboratory - Hematology and Cell countson 06-25-2024 Band form neutrophils/100 WBC (Bld) 2.0 % 0-5 [facility] Lymphocytes/100 WBC (Bld) 2.0 % Low 20.5-60.0 [facility] Monocytes/100 WBC (Bld) 5.0 % 1.7-12.0 [facility] Laboratory - Microbiology an d Antimicrobial susceptibilityon 06-25-2024 SARS-CoV-2 (COVID-19) RNA JUAN ANTONIO+probe Ql (Unsp spec) Negative NEGATIVE [facility] Comment on above: This test [...] ationon 06-25-2024 Appearance (U) CLOUDY Abnormal CLEAR [facility] Color (U) DK YELLOW YELLOW [facility] Laboratory - Urinalysison Leukocyte esterase Test strip Ql (U) Negative NEGATIVE [facility] Nitrite Ql (U) Negative NEGATIVE [facility] Protein Ql (U) TRACE mg/dL NEG/TRACE [facility] Leukocytes [#/volume] correc leroy for nucleated erythrocytes in Blood by Automated counon 06-25-2024 WBC corrected for nucl RBC Auto (Bld) [#/Vol] Leukocytes [#/volume] corrected for nucleated erythrocytes in Blood by Automated coun 4.0-11.0 [facility] MCH Auto (RBC) [Entitic mass ]on 06-25-2024 MCH (RBC) [Entitic mass] MCH [Entitic mass] by Automated count 26.7-34.0 [facility] MCHC Auto (RBC) [Mass/Vol]on 06-25-2024 MCHC (RBC) [Mass/Vol] MCHC [Mass/volume] by Automated count 29.9-35.2 [facility] MCV Auto (RBC) [Entitic vol] on 06-25-2024 MCV (RBC) [Entitic vol] MCV [Entitic volume] by Automated count 81.0-99.0 [facility] No Panel Informationon 06-25 Absolute Basophils (Manual) 0.00 10 3/uL 0.00-0.10 [facility] Band Neutrophils # (Manual) 0.2 10 3/uL 0.0-0.3 [facility] Eosinophils # (Manual) 0.08 10 3/uL 0.00-0.70 [facility] Lymphocytes # (Manual) 0.16 10 3/uL Low 1.20-3.80 [facility] Monocytes # (Manual) 0.41 10 3/uL 0.30-0.80 [facility] Segmented Neutrophils # (Manual) 7.38 10 3/uL High 1.4-6.5 [facility] Urine Occult Blood Negative NEGATIVE [facility] Bedside Influenza Type A Antigen Positive Abnormal [facility] Comment on above: NOTE: Live attenuate d influenza vaccine viruses can cause apositive result for a rapid influenza diagnostic test ifadministered up to 7 days prior to rapid testing. Bedside Influenza Type B Antigen Negative [facility] Comment on above: Negative for Flu B p rotein antigen. Infection due to Flu Bcannot be ruled out. Flu B antigen in the sample may bebelow the detection limit of the test. Platelet mean volume Auto (B ld) [Entitic vol]on 06-25-2024 Platelet mean volume (Bld) [Entitic vol] Platelet mean volume [Entitic volume] in Blood by Automated count Low 9.5-13.5 [facility] Platelets Auto (Bld) [#/Vol] on 06-25-2024 Platelets (Bld) [#/Vol] Platelets [#/volume] in Blood by Automated count 150-450 [facility] RBC Auto (Bld) [#/Vol]on RBC (Bld) [#/Vol] Erythrocytes [#/volu me] in Blood by Automated count Low 4.20-5.40 [facility] Segmented neutrophils/100 WB C Manual cnt (Bld)on 06-25-2024 Segmented neutrophils/100 WBC (Bld) Manual blood segmented neutrophils/100 leukocytes High 43.0-75.0 [facility] Serum or plasma anion gap de terminationon 06-25-2024 Anion gap [Moles/Vol] Serum or plasma anion gap determination [facility] Urine Cultureon 06-25-2024 Bacteria identified Cx Nom (U) No Growth 2 Days PERFORMED BY: [facility] [address] [place] [address] PATHOLOGIST SPLIT AND DRUM ROOM SUPERVISOR DANTE PALACIOS M.D. Normal [facility] Comment on above: Performed By: #### C UU #### [facility] [address] IGP,APTIMA HPV,AGE GDLNon AGE GDLN ACOG TESTING Note . [facility] Comment on above: TESTS RESULT FLAG U NITS REF RANGE LAB Clinician Provided Cytology Information Source.............Cervix No. of containers..01 ThinPrep Vial Age Algo ACOG Annel... FLAG LEGEND: L-Low Normal,H-High Normal,LL-Alert Low,HH-Alert High <-Panic Low,>-Panic High,A-Abnormal,AA-Critical Abnormal Performed at: 01 = [facility] [address] Kathryn Maldonado MD, HPV APTIMA Negative Negative [facility] Comment on above: This nucleic acid am plification test detects fourteen high- risk HPV types (16,18,31,33,35,39,45,51,52,56,58,59,66,68) without differentiation. Performed at: =[facility] [address] [id number] Icer Hand: Kathryn Maldonado MD, Phone: [phone] Performed at: [address] [id number] Icer Hand: Kathryn Maldonado MD, Phone: [phone] IGP, APTIMA HPV, RFX 16/18,45 Note . [facility] Comment on above: TESTS RESULT FLAG UN ITS REF RANGE LAB DIAGNOSIS: 02 NEGATIVE FOR INTRAEPITHELIAL LESION OR MALIGNANCY. Specimen adequacy: 02 Satisfactory for evaluation. Endocervical and/or squamous metaplastic cells (endocervical component) are present. Performed by: 02 Thao Shankar, Tobacco Primer Machine Operator . 02 Note: Note 02 The [...] High,A-Abnormal,AA-Critical Abnormal Performed at: 02 [address] [facility] [address] [place] [address] Kathryn Maldonado MD, BRUSH-SPATULA CERVIX [facility] RECURRENT VAGINITIS (HTRX)on 11-14-2024 ATOPOBIUM VAGINAE 0 [facility] ATOPOBIUM VAGINAE Not detected [facility] BVAB 2,3 (BACTERIAL VAGINOSIS ASSOCIATED BACTERIA 2, 3); MOBILUNCUS SPP 0 [facility] BVAB 2,3 (BACTERIAL VAGINOSIS ASSOCIATED BACTERIA 2, 3); MOBILUNCUS SPP Not detected [facility] JED ALBICANS, PARAPSILOSIS, TROPICALIS 0 [facility] JED ALBICANS, PARAPSILOSIS, TROPICALIS Not detected [facility] JED GLABRATA 0 [facility] JED GLABRATA Not detected [facility] JED KRUSEI 0 [facility] JED KRUSEI Not detected [facility] CHLAMYDIA TRACHOMATIS 0 [facility] CHLAMYDIA TRACHOMATIS Not detected [facility] GARDNERELLA VAGINALIS 0 [facility] GARDNERELLA VAGINALIS Not detected [facility] MEGASPHAERA (TYPES 1, 2) 0 [facility] MEGASPHAERA (TYPES 1, 2) Not detected [facility] MYCOPLASMA GENITALIUM 0 [facility] MYCOPLASMA GENITALIUM Not detected [facility] NEISSERIA GONORRHOEAE 0 [facility] NEISSERIA GONORRHOEAE Not detected [facility] TRICHOMONAS VAGINALIS 0 [facility] TRICHOMONAS VAGINALIS Not detected [facility] Urinalysis macro (dipstick) panel (U)on 05-03-2024 Bilirubin, UA Negative Negative - 4(70) +++ mg/dL [facility] Blood, UA Negative Negative - 50 Ulises/mcL [facility] Clarity, UA Clear [facility] Color, UA Yellow [facility] Glucose, UA Negative Negative - 1999(110) ++++ mg/dL [facility] Interpretation and review of laboratory results Normal [facility] Ketones, UA Negative Negative - 160(16) ++++ mg/dL [facility] Leukocytes, UA Negative Negative - 500+++ Clair/mcL [facility] Nitrite, UA Negative Negative - Positive [facility] pH, UA 0.5 5 - 9 [facility] Protein, UA Negative Negative - 1999(20) ++++ mg/dL [facility] Spec Grav, UA 1.025 1 - 1.03 [facility] Urobilinogen, UA 1.0 0.2 - 12 mg/dL [facility] Human papilloma virus 16+18+ 31+33+35+39+45+51+52+56+58+59+66+68 DNA [Presence] in Denis 05-02-2024 HPV 16+18+31+33+35+39+4 5+51+52+56+58+59+66 +68 DNA Probe+sig amp Ql (Cvx) Human papilloma virus 16+18+31+33+35+39+45+51+52+5 6+58+59+66+68 DNA [Presence] in Cer Negative [facility] Comment on above: This nucleic acid am plification test detects fourteen high- risk HPV types (16,18,31,33,35,39,45,51,52,56,58,59,66,68)without differentiation.Performed at: =G - [facility] [address] [id number] Director: Kathryn Maldonado MD, Phone: [phone] at: - [facility] [address] [id number] Director: Kathryn Maldonado MD, Phone: [phone] No Panel Informationon 05-02 HPV High Risk Other Comment Note . [facility] Comment on above: TESTS RESULT FLAG UN ITS REF RANGE LAB JESE GNOSIS: 02 NEGATIVE FOR INTRAEPITHELIAL LESION OR MALIGNANCY.Specimen adequacy: 02 Satisfactory for evaluation. Endocervical and/or squamous metaplastic cells (endocervical component) are present.Performed by: 02 Thao Shankar, Tobacco Primer Machine Operator. 02Note: Note 02 The Pap smear [...] Low,>-Panic High,A-Abnormal,AA-Critical Abnormal --Performed at:02 WB [facility] [address] [place] [address] Kathryn Maldonado MD, Reference Lab Test Patient Age Note . [facility] Comment on above: TESTS RESULT FLAG UN ITS REF RANGE LAB Clinician Provided Cytology Information Source.............Cervix No. of containers..01 ThinPrep VialAge Richie SANDERS Annel... 30 FLAG LEGEND: L-Low Normal,H-High Normal,LL-Alert Low,HH-Alert High <-Panic Low,>-Panic High,A-Abnormal,AA-Critical Abnormal --Performed at:01 =G [facility] [address] [place] [address] Kathryn Maldonado MD, AFP, SERUM, OPEN SPINA BIFID Aon 05-01-2024 AFP MOM 1.18 . [facility] AFP VALUE 61.8 ng/mL . [facility] COMMENT: Comment . [facility] Comment on above: Cydney Rodriguez , Ph.D., [facility] Director References: Available Upon Request. Multiples Of Median Cutoffs For AFP Elevations Chiang 2.5 Black 2.8 IDD 2.0 Twins 4.5 Abbreviation Definitions IDD - Insulin Dep Diabetes OSBR - Open Spina Bifida Risk For further inquiries contact [employer] [facility] at [phone]. This test was developed and its performance characteristics determined by [employer]. It has not been cleared or approved by the Food and Drug Administration. Performed at: [facility] [employer] [address] [place], [place] [id number] Icer Hand: Marissa Kovacs [facility], Phone: [phone] GEST. AGE ON COLLECTION DATE 19.0 . weeks [facility] GESTAT. AGE BASED ON LMP . [facility] Comment on above: Recalculations are n ot recommended when gestational dating by LMP and ultrasound are within 10 days. INSULIN DEP DIABETES No . [facility] INTERPRETATION Comment . [facility] Comment on above: Interpretation: Scre [...] Customer Services to discuss available options. The [employer] recommends amniocentesis be offered to women age 35 and older. [age] [facility] MULTIPLE GESTATION No . [facility] OSBR RISK 1 IN 6916 . [facility] RACE . [facility] RESULTS Report . [facility] TEST RESULTS: Negative . [facility] WEIGHT 135 . lbs [facility] N N LMP [id number] 3 15 N 1 Y 135 N N N N N White/ [facility] Alpha-fetoprotein (AFP) paige urement (euavacgo-vo-ymzcwt)on 04-29-2024 AFP [MoM] Alpha-fetoprotein (A FP) measurement (iilpewnn-iv-fbkuwm) . [facility] Assess gestational ageon Gestational age Assess gestational age . [facility] Estimation of maternal age-s pecific risk of Down syndrome birthon 04-29-2024 Age [Time] Estimation of matern al age-specific risk of Down syndrome . [facility] Insulin dependent diabetes m ellitus detectionon 04-29-2024 Insulin dependent diabetes mellitus Ql Insulin dependent diabetes mellitus detection . [facility] Interpretation of serum or p lasma second trimester quad maternal screen (narrative reon 04-29-2024 Second trimester quad maternal screen Darshan [Interp] Interpretation of serum or plasma second trimester quad maternal screen (narrative re . [facility] Comment on above: Interpretation: Scre [...] 04-29 AFP Triple Screen Comment Comment . [facility] Comment on above: Cydney Rodriguez , Ph.D., DABCCDirectorReferences: Available Upon Request.Multiples Of Median Cutoffs For AFP ElevationsSingleton 2.5 Black 2.8IDD 2.0 Twins 4.5 Abbreviation DefinitionsIDD - Insulin Dep DiabetesOSBR - Open Spina Bifida RiskFor further inquiries contact [employer] [facility] at [phone].This test was developed and its performance characteristicsdetermined by [employer]. It has not been cleared or approvedby the Food and Drug Administration.Performed at: [facility] [employer] [id number] [place], [place] [id number] Director: Marissa Kovacs [facility], Phone: [phone] Alpha Fetoprotein Results Received Report . [facility] Gestational Age Calculation Method LMP . [facility] Comment on above: Recalculations are n ot recommended when gestational datingby LMP and ultrasound are within 10 days. Maternal Quad Test Risk 6916 . [facility] Maternal Race . [facility] Multiple No . [facility] Serum or plasma dneci-9-tzoh protein measurement (mass/volume)on 04-29-2024 AFP [Mass/Vol] Serum or plasma bthae-0-wutaqzxposr measurement (mass/volume) . [facility] BOX TEST SENT OUTon BOX TEST SENT OUT Y [facility] ALL CBC WITH AUTO DIFFon BASOPHILS ABSOLUTE AUTO 0.0 [facility] Basophils/100 WBC (Bld) 0.5 % 0.2 - 2.0 % [facility] Eosinophils/100 WBC (Bld) 0.9 % 0.9 - 7.0 % [facility] Erythrocyte distribution width (RBC) [Ratio] 11.9 % 11.0 - 15.0 % [facility] Hematocrit (Bld) [Volume fraction] 37.3 % 36.0 - 48.0 % [facility] Hemoglobin (Bld) [Mass/Vol] 12.7 g/dL 12.0 - 16.0 g/dL [facility] IMMATURE GRANULOCYTES ABS AUTO 0.02 [facility] Immature granulocytes/100 WBC (Bld) 0.3 % 0.0 - 0.5 % [facility] Interpretation and review of laboratory results Abnormal [facility] LYMPHOCYTES ABSOLUTE AUTO 1.8 [facility] Lymphocytes/100 WBC (Bld) 27.4 % 20.5 - 60.0 % [facility] MCH (RBC) [Entitic mass] 32.2 pg 26.7 - 34.0 pg [facility] MCHC (RBC) [Mass/Vol] 34.0 g/dL 29.9 - 35.2 g/dL [facility] MCV (RBC) [Entitic vol] 94.4 fL 81.0 - 99.0 fL [facility] MONOCYTES ABSOLUTE AUTO 0.3 [facility] Monocytes/100 WBC (Bld) 5.1 % 1.7 - 12.0 % [facility] NEUTROPHILS ABSOLUTE AUTO 4.4 [facility] Neutrophils/100 WBC (Bld) 65.8 % 43.0 - 75.0 % [facility] Platelet mean volume (Bld) [Entitic vol] 9.4 fL Low 9.5 - 13.5 fL [facility] TB EO # 0.1 [facility] TB PLT 215 [facility] RBC 3.[address] [facility] WBC 6.6 [facility] HCG ( test) Ql (U)o n 02-12-2024 Interpretation and review of laboratory results Abnormal [facility] Preg Test, Ur Positive [facility] Urinalysis macro (dipstick) panel (U)on 02-12-2024 Bilirubin, UA Negative Negative - 4(70) +++ mg/dL [facility] Blood, UA Negative Negative - 50 Ulises/mcL [facility] Clarity, UA Clear [facility] Color, UA Yellow [facility] Glucose, UA Negative Negative - 1999(110) ++++ mg/dL [facility] Interpretation and review of laboratory results Normal [facility] Ketones, UA Negative Negative - 160(16) ++++ mg/dL [facility] Leukocytes, UA Negative Negative - 500+++ Clair/mcL [facility] Nitrite, UA Negative Negative - Positive [facility] pH, UA 6.5 5 - 9 [facility] Protein, UA Negative Negative - 1999(20) ++++ mg/dL [facility] Spec Grav, UA 1.015 1 - 1.03 [facility] Urobilinogen, UA 1.0 0.2 - 12 mg/dL [facility] No Panel Informationon 11-29 Human Chorionic Gonadotropin, Quant 2 mIU/mL [facility] Comment on above: 5-50 0.2-1 CWZA52-50 0 1-2 EKMHQ869-1,000 2-3 YSFUA721-25,000 3-4 WEEKS1,000-50,000 4-5 WEEKS10,000-100,000 5-6 WEEKS15,000-200,000 6-8 WEEKS10,000-100,000 2-3 MONTHS No Panel Informationon 11-22 Human Chorionic Gonadotropin, Quant 3 mIU/mL [facility] Comment on above: 5-50 0.2-1 BIQD74-65 0 1-2 CDONH168-3,000 2-3 YNEKK702-76,000 3-4 WEEKS1,000-50,000 4-5 WEEKS10,000-100,000 5-6 WEEKS15,000-200,000 6-8 WEEKS10,000-100,000 2-3 MONTHS No Panel Informationon 11-16 Human Chorionic Gonadotropin, Quant 6 mIU/mL [facility] Comment on above: 5-50 0.2-1 OHBM26-05 0 1-2 DNMTW308-1,000 2-3 DLGUQ370-02,000 3-4 WEEKS1,000-50,000 4-5 WEEKS10,000-100,000 5-6 WEEKS15,000-200,000 6-8 WEEKS10,000-100,000 2-3 MONTHS No Panel Informationon 11-08 Human Chorionic Gonadotropin, Quant 27 mIU/mL [facility] Comment on above: 5-50 0.2-1 QYDE17-76 0 1-2 XPXCP288-6,000 2-3 TDJHG260-02,000 3-4 WEEKS1,000-50,000 4-5 WEEKS10,000-100,000 5-6 WEEKS15,000-200,000 6-8 WEEKS10,000-100,000 2-3 MONTHS Basophils Auto (Bld) [#/Vol] on 10-23-2023 Basophils (Bld) [#/Vol] 0.0 10 3/uL 0.0-0.1 [facility] Basophils/100 WBC Auto (Bld) on 10-23-2023 Basophils/100 WBC (Bld) 0.8 % 0.2-2.0 [facility] Eosinophils/100 WBC Auto (Bl d)on 10-23-2023 Eosinophils/100 WBC (Bld) 1.4 % 0.9-7.0 [facility] Erythrocyte distribution wid th Auto (RBC) [Ratio]on 10-23-2023 Erythrocyte distribution width (RBC) [Ratio] 11.9 % 11.0-15.0 [facility] Hematocrit Auto (Bld) [Volum e fraction]on 10-23-2023 Hematocrit (Bld) [Volume fraction] 36.0 % 36.0-48.0 [facility] Hemoglobin [Mass/volume] in Bloodon 10-23-2023 Hemoglobin (Bld) [Mass/Vol] 11.8 g/dL 12.0-16.0 [facility] Krzysztof 10-23-2023 L Specimen: [id number] R eceived: 10/26/23 Status: MAIA Newell Num: [id number] Spec Type: Surgical Subm Dr: Scooby Vega Tissues: A Products of Conception - Spontaneous or Missed (POC) Procedures: HE/3, Gross/Micro L4 Age/ Patient Sex Location Account Attending Physician Raphael Elizabeth 37/F LABELL [id number] Scooby Vega SPEC NUM: [id number] RECD: 10/26/23 STATUS: MAIA NEWELL NUM: [id number] JANIE: 10/23/[address]: Scooby Vega ENTERED: 10/26/23 [facility] DR: Owen,Lab SPEC TYPE: Surgical DEPT: POOJA [...] cm possible area of villous tissue identified. Anaesthesiologist sections to include the possible villous tissue are submitted in A1?A3. Clinical history: Missed CPT Codes 23151 -------- -------- Specimen: [id number] Received: 10/26/23-1305 Status: MAIA Newell Num: [id number] Spec Type: Surgical Subm Dr: Scooby Vega Tissues: A Products of Conception - Spontaneous or Missed (POC) Procedures: HE/3, Gross/Micro L4 -------- Patient: Raphael Elizabeth [id number] (Continued) -------- Signed (signature on file) Dante Palacios MD 10/27/23 1511 Normal [facility] Laboratory - Hematology and Cell countson 10-23-2023 Immature granulocytes/100 WBC (Bld) 0.2 % 0.0-0.5 [facility] Leukocytes [#/volume] correc leroy for nucleated erythrocytes in Blood by Automated counon 10-23-2023 WBC corrected for nucl RBC Auto (Bld) [#/Vol] 5.1 10 3/uL 4.0-11.0 [facility] Lymphocytes Auto (Bld) [#/Vo l]on 10-23-2023 Lymphocytes (Bld) [#/Vol] 1.7 10 3/uL 1.2-3.8 [facility] Lymphocytes/100 WBC Auto (Bl d)on 10-23-2023 Lymphocytes/100 WBC (Bld) 32.8 % 20.5-60.0 [facility] MCH Auto (RBC) [Entitic mass ]on 10-23-2023 MCH (RBC) [Entitic mass] 31.1 pg 26.7-34.0 [facility] MCHC Auto (RBC) [Mass/Vol]on 10-23-2023 MCHC (RBC) [Mass/Vol] 32.8 g/dL 29.9-35.2 [facility] MCV Auto (RBC) [Entitic vol] on 10-23-2023 MCV (RBC) [Entitic vol] 95.0 fL 81.0-99.0 [facility] Monocytes Auto (Bld) [#/Vol] on 10-23-2023 Monocytes (Bld) [#/Vol] 0.3 10 3/uL 0.3-0.8 [facility] Monocytes/100 WBC Auto (Bld) on 10-23-2023 Monocytes/100 WBC (Bld) 5.5 % 1.7-12.0 [facility] Neutrophils Auto (Bld) [#/Vo l]on 10-23-2023 Neutrophils (Bld) [#/Vol] 3.0 10 3/uL 1.4-6.5 [facility] Neutrophils/100 WBC Auto (Bl d)on 10-23-2023 Neutrophils/100 WBC (Bld) 59.3 % 43.0-75.0 [facility] No Panel Informationon 10-22 Eosinophils # (Auto) 0.1 10 3/uL 0.0-0.7 [facility] Immature Granulocyte # (Auto) 0.01 10 3/uL 0.00-0.03 [facility] Platelet mean volume Auto (B ld) [Entitic vol]on 10-23-2023 Platelet mean volume (Bld) [Entitic vol] 9.0 fL 9.5-13.5 [facility] Platelets Auto (Bld) [#/Vol] on 10-23-2023 Platelets (Bld) [#/Vol] 182 10 3/uL 150-450 [facility] RBC Auto (Bld) [#/Vol]on RBC (Bld) [#/Vol] 3.79 10 6/uL 4.20-5.40 [facility] No Panel Informationon 10-11 Human Chorionic Gonadotropin, Quant 32970 mIU/mL [facility] Comment on above: 5-50 0.2-1 KSEI65-58 0 1-2 ICSHL976-9,000 2-3 BPMIC889-63,000 3-4 WEEKS1,000-50,000 4-5 WEEKS10,000-100,000 5-6 WEEKS15,000-200,000 6-8 WEEKS10,000-100,000 2-3 MONTHS No Panel Informationon 10-06 Human Chorionic Gonadotropin, Quant 10346 mIU/mL [facility] Comment on above: 5-50 0.2-1 WGRK80-79 0 1-2 LNAZU323-4,000 2-3 HEAFF480-74,000 3-4 WEEKS1,000-50,000 4-5 WEEKS10,000-100,000 5-6 WEEKS15,000-200,000 6-8 WEEKS10,000-100,000 2-3 MONTHS No Panel Informationon 10-04 Human Chorionic Gonadotropin, Quant 42068 mIU/mL [facility] Comment on above: 5-50 0.2-1 VAUY57-85 0 1-2 UYCGR807-4,000 2-3 KXZGL681-35,000 3-4 WEEKS1,000-50,000 4-5 WEEKS10,000-100,000 5-6 WEEKS15,000-200,000 6-8 WEEKS10,000-100,000 2-3 MONTHS PAP ACOG PANEL 2: 30 to 65on 03-11-2022 . . Normal [facility] Comment on above: Result Comment: Perf ormed at: WB Performed By: #### [id number] #### [facility] [address] [address] [address] Danni Jacobs Age Gdln ACOG Testing 30-65 Normal [facility] Comment on above: Performed By: #### [id number] #### [facility] [address] [address] [address] Danni Jacobs DIAGNOSIS: Comment Normal [facility] Comment on above: Result Comment: NEGA TIVE FOR INTRAEPITHELIAL LESION OR MALIGNANCY. THIS SPECIMEN WAS RESCREENED PART OF OUR MANAGER SPECIAL EVENTS PROGRAM. Performed at: WB Performed By: #### [id number] #### [facility] [address] [place] [address] Dr. Danni Jacobs HPV Aptima Negative Normal Negative [facility] Comment on above: Result Comment: This nucleic acid amplification test detects fourteen high-risk HPV types (16,18,31,33,35,39,45,51,52,56,58,59,66,68) without differentiation. Performed at: =G Performed By: #### [id number] #### [facility] [address] [place] [address] Dr. Danni Jacobs Methodology: Comment Normal [facility] Comment on above: Result Comment: This liquid based ThinPrep(R) pap test was screened with the use of an image guided system. Performed at: WB Performed By: #### [id number] #### [facility] [address] [place] [address] Dr. Danni Jacobs Note: Comment Normal [facility] Comment on above: Result Comment: The Pap smear is a screening test designed to aid in the detection of premalignant and malignant conditions of the uterine cervix. It is not a diagnostic procedure and should not be used as the sole means of detecting cervical cancer. Both false-positive and false-negative reports do occur. . Performed at: WB Performed By: #### [id number] #### [facility] [address] [place] [address] Dr. Danni Jacobs Performed by: Comment Normal [facility] Comment on above: Result Comment: Rocky Hull, Tobacco Primer Machine Operator (ASCP) Performed at: WB Performed By: #### [id number] #### [facility] [address] [place] [address] Dr. Danni Jacobs QC reviewed by: Comment Normal [facility] Comment on above: Result Comment: Betzaida Ge, Supervisory Tobacco Primer Machine Operator (ASCP) Performed at: WB Performed By: #### [id number] #### [facility] [address] [place] [address] Dr. Danni Jacobs Specimen adequacy: Comment Normal [facility] Comment on above: Result Comment: Sati sfactory for evaluation. Endocervical and/or squamous metaplastic cells (endocervical component) are present. Performed at: WB Performed By: #### [id number] #### [facility] [address] [address] [address] Danni Jacobs GLUCOSE BLOODon 04-22-2021 Glucose [Mass/Vol] 99 mg/dL Normal 74-106 [facility] Comment on above: Performed By: #### G YOSEPH, LIPID #### [facility] [address] [place] [address] Dr. Danni Jacobs LIPID PROFILEon 04-22-2021 CHOL-HDL RATIO NORM SEE BELOW Normal [facility] Comment on above: Result Comment: 3.3 - 4.4 LOW RISK 4.4 - 7.1 AVERAGE RISK 7.1 - 11.0 MODERATE RISK >11.0 HIGH RISK Performed By: #### G YOSEPH, LIPID #### [facility] [address] [place] [address] Dr. Danni Jacobs Cholesterol [Mass/Vol] 157 mg/dL Normal <=200 [facility] Comment on above: Performed By: #### G YOSEPH, LIPID #### [facility] [address] [place] [address] Dr. Danni Jacobs Cholesterol in HDL [Mass/Vol] 74 mg/dL Normal [facility] Comment on above: Performed By: #### G YOSEPH, LIPID #### [facility] [address] [address] [address] Danni Jacobs Cholesterol in LDL [Mass/Vol] 71.2 mg/dL Normal [facility] Comment on above: Performed By: #### G YOSEPH, LIPID #### [facility] [address] [place] [address] Dr. Danni Jacobs Cholesterol.total/C holesterol in HDL [Mass ratio] 2.1 {ratio} Normal [facility] Comment on above: Performed By: #### G YOSEPH, LIPID #### [facility] [address] [address] [address] Danni Jacobs HDL NORMAL > or = 60 mg/dl - LO W CARDIOVASCULAR RISK <40 mg/dl - HIGH CARDIOVASCULAR RISK Normal [facility] Comment on above: Performed By: #### G YOSEPH, LIPID #### [facility] [address] [address] [address] Danni Jacobs LDL CALC NORMAL SEE BELOW Normal [facility] Comment on above: Result Comment: <100 mg/dl OPTIMAL 100 - 129 mg/dl NEAR OR ABOVE OPTIMAL 130 - 159 mg/dl BORDERLINE HIGH 160 - 189 mg/dl HIGH >190 mg/dl VERY HIGH Performed By: #### G YOSEPH, LIPID #### [facility] [address] [address] [address] Danni Jacobs Triglyceride [Mass/Vol] 59 mg/dL Normal <=150 [facility] Comment on above: Performed By: #### G YOSEPH, LIPID #### [facility] [address] [address] [address] Danni Jacobs VLDL CALC 11.8 mg/dL Normal [facility] Comment on above: Performed By: #### G YOSEPH, LIPID #### [facility] [address] [address] [address] Danni Jacobs Vital Signs Date Time Vital Sign Value Performing Clinician Philippe mera 08-24-2024 13:51-0500 Body mass index (BMI) [Ratio] 24.18 kg/m2 Sibaritus DO Work Phone: [facility] 08-24-2024 13:51-0500 Body weight 70.03 kg Scooby Gary DO Work Phone: [facility] 08-24-2024 13:51-0500 Diastolic blood pressure 68 mm[Hg] Scooby Gary DO Work Phone: [facility] 08-24-2024 13:51-0500 Systolic blood pressure 112 mm[Hg] Scooby Gary DO Work Phone: [facility] 08-18-2024 09:28-0500 Body mass index (BMI) [Ratio] 23.62 kg/m2 Scooby Gary DO Work Phone: [facility] 08-18-2024 09:28-0500 Body weight 68.4 kg Scooby Gary DO Work Phone: [facility] 08-18-2024 09:28-0500 Diastolic blood pressure 72 mm[Hg] Scooby Gary DO Work Phone: [facility] 08-18-2024 09:28-0500 Systolic blood pressure 110 mm[Hg] Scooby Gary DO Work Phone: [facility] 08-01-2024 13:55-0500 Body mass index (BMI) [Ratio] 22.87 kg/m2 Scooby Gary DO Work Phone: [facility] 08-01-2024 13:55-0500 Body weight 66.22 kg Scooby Gary DO Work Phone: [facility] 08-01-2024 13:55-0500 Diastolic blood pressure 74 mm[Hg] Scooby Gary DO Work Phone: [facility] 08-01-2024 13:55-0500 Systolic blood pressure 116 mm[Hg] Scooby Gary DO Work Phone: [facility] 07-18-2024 15:05-0500 Body mass index (BMI) [Ratio] 22.84 kg/m2 Scooby Gary DO Work Phone: [facility] 07-18-2024 15:05-0500 Body weight 66.13 kg Scooby Gary DO Work Phone: [facility] 07-18-2024 15:05-0500 Diastolic blood pressure 70 mm[Hg] Scooby Gary DO Work Phone: [facility] 07-18-2024 15:05-0500 Systolic blood pressure 118 mm[Hg] Scooby Gary DO Work Phone: [facility] 06-30-2024 12:01-0500 Body mass index (BMI) [Ratio] 22.26 kg/m2 Scooby Gary DO Work Phone: [facility] 06-30-2024 12:01-0500 Body weight 64.47 kg Scooby Gary DO Work Phone: [facility] 06-30-2024 12:01-0500 Diastolic blood pressure 70 mm[Hg] Scooby Gary DO Work Phone: [facility] 06-30-2024 12:01-0500 Systolic blood pressure 110 mm[Hg] Scooby Gary DO Work Phone: [facility] 06-02-2024 10:45-0500 Body mass index (BMI) [Ratio] 21.9 kg/m2 Scooby Gary DO Work Phone: [facility] 06-02-2024 10:45-0500 Body weight 63.41 kg Scooby Gary DO Work Phone: [facility] 06-02-2024 10:45-0500 Diastolic blood pressure 72 mm[Hg] Scooby Gary DO Work Phone: [facility] 06-02-2024 10:45-0500 Systolic blood pressure 116 mm[Hg] Scooby Gary DO Work Phone: [facility] 05-02-2024 16:20-0500 Body mass index (BMI) [Ratio] 21.61 kg/m2 Emely COBB Work Phone: [facility] 05-02-2024 16:20-0500 Body weight 62.6 kg Emely COBB Work Phone: [facility] 05-02-2024 16:20-0500 Diastolic blood pressure 68 mm[Hg] Emely COBB Work Phone: [facility] 05-02-2024 16:20-0500 Systolic blood pressure 120 mm[Hg] Emely COBB Work Phone: [facility] 04-29-2024 11:40-0500 Body weight Jen Granados MD Work Phone: [facility] 04-04-2024 14:55-0400 Body mass index (BMI) [Ratio] 21.27 kg/m2 Scooby Gary DO Work Phone: [facility] 04-04-2024 14:55-0400 Body weight 61.6 kg Scooby Gary DO Work Phone: [facility] 04-04-2024 14:55-0400 Diastolic blood pressure 70 mm[Hg] Scooby Gary DO Work Phone: [facility] 04-04-2024 14:55-0400 Systolic blood pressure 116 mm[Hg] Scooby Gary DO Work Phone: [facility] 03-07-2024 10:47-0400 Body mass index (BMI) [Ratio] 20.07 kg/m2 Scooby Gary DO Work Phone: [facility] 03-07-2024 10:47-0400 Body weight 58.12 kg Scooby Gary DO Work Phone: [facility] 03-07-2024 10:47-0400 Diastolic blood pressure 68 mm[Hg] Scooby Gary DO Work Phone: [facility] 03-07-2024 10:47-0400 Systolic blood pressure 114 mm[Hg] Scooby Gary DO Work Phone: [facility] 12-01-2023 16:10-0400 Body height 170.18 cm Scooby Gary Work Phone: [facility] 12-01-2023 16:10-0400 Body mass index (BMI) [Ratio] 19.5 kg/m2 Scooby Gary Work Phone: [facility] 12-01-2023 16:10-0400 Body weight 56.69 kg Scooby Gary Work Phone: [facility] 12-01-2023 16:10-0400 Diastolic blood pressure 78 mm[Hg] Scooby Gary Work Phone: [facility] 12-01-2023 16:10-0400 Systolic blood pressure 112 mm[Hg] Scooby Gary Work Phone: [facility] Encounters Encounter Date Encounter Type Care Provider Facility Start: 08-24-2024 End: 08-24-2024 Bamboo flowsheet Scooby Gary DO Work Phone: [facility] Start: 08-24-2024 End: 08-24-2024 Bamboo flowsheet Scooby Gary DO Work Phone: [facility] Start: 08-24-2024 End: 08-24-2024 ambulatory SCOOBY GARY Not Available Start: 08-24-2024 End: 08-24-2024 flow sheet Scooby [...] 06-25-2024 ambulatory Jen Granados MD Work Phone: [facility] Work Phone: Start: 06-25-2024 End: 06-25-2024 Departed Referred Jen Granados MD Work Phone: [facility] Start: 06-25-2024 Non-patient / Non-visit Jen Granados MD Work Phone[facility] Work Phone: Start: 06-02-2024 End: 06-02-2024 Bamboo flowsheet Scooby Gary DO Work Phone: [facility] Start: 06-02-2024 End: 06-02-2024 Bamboo flowsheet Scooby Gary DO Work Phone: [facility] Start: 06-02-2024 End: 06-02-2024 ambulatory SCOOBY GARY Not Available Start: 06-02-2024 End: 06-02-2024 flow sheet Scooby Gary DO Work Phone: [facility] Comment on above: Second trimester pre gnancy; 23 weeks gestation of ; with normal glucose tolerance test (GTT); Diabetes mellitus screening; Gestational diabetes mellitus (GDM), antepartum, gestational diabetes method of control unspecified; Elevated glucose tolerance test Start: 05-02-2024 Non-patient / Non-visit Jen Granados MD Work Phone: [facility] Work Phone: Start: 05-02-2024 End: 05-02-2024 ambulatory EMELY HUNTER Not Available Start: 05-02-2024 End: 05-02-2024 Patient encounter procedure Emely COBB Work Phone: [facility] Work Phone: Start: 05-02-2024 End: 05-02-2024 flow sheet Emely COBB Work Phone: [facility] Comment on above: Well woman exam with routine gynecological exam; Second trimester ; 19 weeks gestation of ; Vaginal discharge; STD exposure; Screening, , for anatomic survey Start: 05-02-2024 End: 05-02-2024 Bamboo flowsheet Emely COBB Work Phone: [facility] Start: 05-02-2024 End: 05-10-2024 Bamboo flowsheet Emely COBB Work Phone: [facility] Start: 05-02-2024 End: 05-10-2024 Clinisync Result Encounter Emely COBB Work Phone: [facility] Unsolicited Start: 05-02-2024 End: 05-05-2024 External Result Encounter Emely COBB Work Phone: [facility] Unsolic[facility] Start: 04-29-2024 End: 05-01-2024 Clinisync Result Encounter Scooby Vega DO Work Phone: [facility]solic[facility] Start: 04-29-2024 End: 05-01-2024 Clinisync Result Encounter Scooby Gary DO Work Phone: [facility] Unsolicited Start: 04-29-2024 Non-patient / Non-visit Jen Granados MD Work Phone: [facility] Work Phone: Start: 04-04-2024 End: 04-04-2024 flow sheet Scooby Fragosoo DO Work Phone: [facility] Comment on above: Second trimester pre gnancy; Screening, , for anatomic survey; with 15 completed weeks gestation Start: 04-04-2024 End: 04-04-2024 ambulatory SCOOBY VEGA Not Available Start: 04-04-2024 End: 04-04-2024 Bamboo flowsheet Scooby Flowerszio DO Work Phone: [facility] Start: 04-04-2024 End: 04-04-2024 Bamboo flowsheet Scooby Gary DO Work Phone: [facility] Start: 04-04-2024 End: 04-04-2024 ambulatory [facility] Start: 04-01-2024 End: 04-01-2024 Bamboo [...] Start: 03-23-2024 End: 03-23-2024 Bamboo flowsheet Gretchen Josh PT [facility] Start: 03-23-2024 End: [...] [facility] Start: 02-08-2024 End: 02-08-2024 [facility] Start: 02-08-2024 ambulatory [facility] Start: 12-01-2023 End: 12-01-2023 ambulatory Scooby Gary Work Phone: [facility] Work Phone: Start: 12-01-2023 End: 12-01-2023 Patient encounter procedure Scooby Gary Work Phone: [facility] Work Phone: Start: 11-30-2023 Non-patient / Non-visit Scooby Gary Work Phone: [facility] Work Phone: Start: 11-23-2023 Non-patient / Non-visit Scooby Gary Work Phone: [facility] Work Phone: Start: 11-17-2023 Non-patient / Non-visit Scooby Gary Work Phone: [facility] Work Phone: Start: 11-09-2023 Non-patient / Non-visit Scooby Gary Work Phone: [facility] Work Phone: Start: 11-09-2023 End: 11-09-2023 ambulatory EMELY HUNTER Not Available Start: 10-23-2023 End: 10-23-2023 ambulatory Scooby Gary [facility] Work Phone: Start: 10-23-2023 End: 10-23-2023 Departed Referred Scooby Gary Work Phone: [facility] Start: 10-23-2023 Non-patient / Non-visit Scooby Gary Work Phone: [facility] Work Phone: Start: 10-12-2023 Non-patient / Non-visit Scooby Gary Work Phone: [facility] Work Phone: Start: 10-07-2023 Non-patient / Non-visit Scooby Gary Work Phone: [facility] Work Phone: Start: 10-05-2023 Non-patient / Non-visit Scooby Gary Work Phone: [facility] Work Phone: Start: 03-03-2022 End: 03-03-[address] SCOOBY VEGA Facility:[facility] Start: 04-28-2021 Encounter for genera l adult medical examination without abnormal findings DR DALTON LOGAN [facility] Start: 04-22-2021 End: 04-23-[address] [...] Follow-up visit Follow-up [facility] Start: 02-26-2024 [facility] BOX TEST SENT OUT C orey Gary DO Work Phone: Start: 02-16-2024 ALL CBC WITH AUTO DIFF Scooby Gary DO Work Phone: Start: 02-12-2024 End: 02-12-2024 Urnls dip stick/tablet rgnt non-auto w/o micrscp Scooby Gary DO Work Phone: Plan of Treatment Date Care Activity Detail Author Start: 09-12-2024 End: 09-12-2024 Patient encounter procedure 09/12/2024 9:00 AM EDT Routine [facility] [address] [place] [address] Scooby Vega, DO [address] [place], [place] [address] [address] [facility] Start: 09-05-2024 End: 09-05-2024 Patient encounter procedure 09/05/2024 1:30 PM EDT Routine [facility] [address] [place] [place] [phone] Scooby Vega, DO [address] [place] [address] [place] [address] [facility] Start: 08-24-2024 End: 08-24-2025 CULTURE, GROUP B STREP WITH SUSCEPTIBLITY CULTURE, GROUP B STREP WITH SUSCEPTIBLITY Lab Routine Third trimester Expected: 08/24/2024, Expires: 08/24/2025 [facility] Work Phone: Comment on above: Expected: 08/24/2024 , Expires: 08/24/2025 Start: 08-24-2024 End: 08-24-2024 Patient encounter procedure 08/24/2024 1:20 PM EST Routine [facility] [address] [place] [place] [address] Scooby Vega, [address] [place] [address] [facility] Start: 08-18-2024 End: 08-18-2025 US for US OB follow up transabdominal approach Imaging Routine Multigravida of advanced maternal age in third trimester Expected: 08/18/2024, Expires: 08/18/2025 [facility] Work Phone: Comment on above: Expected: 08/18/2024 , Expires: 08/18/2025 Start: 08-18-2024 End: 08-18-2024 Patient encounter procedure 08/18/2024 9:20 AM EST Routine [facility] [address] [place] [place] [address] Scooby Vega, DO [address] [facility] [address] [address] [facility] Start: 08-01-2024 End: 08-01-2024 Patient encounter procedure 08/01/2024 1:20 PM EST Routine [facility] [address] [facility] [place] [address] Scooby Vega, DO [address] [address] [facility] Start: 07-18-2024 End: 07-18-2024 Patient encounter procedure 07/18/2024 2:30 PM EST Routine [facility] [address] [facility] [place] [address] Scooby Vega, DO [address] [address] [facility] Start: 07-18-2024 End: 07-18-2025 US biophysical profile w non stress test US biophysical profile w non stress test Imaging Routine 30 weeks gestation of Third trimester Expected: 07/18/2024 (Approximate), Expires: 07/18/2025 [facility] Work Phone: Comment on above: Expected: 07/18/2024 (Approximate), Expires: 07/18/2025 Start: 06-30-2024 End: 06-30-2025 US biophysical profile w non stress test US biophysical profile w non stress test Imaging Routine Gestational diabetes mellitus (GDM), antepartum, gestational diabetes method of control unspecified Expected: 06/30/2024 (Approximate), Expires: 06/30/2025 [facility] Comment on above: Expected: 06/30/2024 (Approximate), Expires: 06/30/2025 Start: 06-30-2024 End: 06-30-2025 US for US OB follow up transabdominal approach Imaging Routine Gestational diabetes mellitus (GDM), antepartum, gestational diabetes method of control unspecified Expected: 06/30/2024, Expires: 06/30/2025 [facility] Work Phone: Comment on above: Expected: 06/30/2024 , Expires: 06/30/2025 Start: 06-30-2024 End: 06-30-2024 Patient encounter procedure 06/30/2024 11:50 AM EST Routine [facility] [address] [facility] [place] [address] Scooby Vega, [address] [place] [address] [facility] Start: 06-25-2024 Urine culture [facility] Start: 06-25-2024 Bacteria identified in Urine by Culture Urine Culture [facility] Start: 06-02-2024 End: 06-02-2025 CBC panel - Blood by Automated count CBC Lab Routine Diabetes mellitus screening Expected: 06/02/2024 (Approximate), Expires: 06/02/2025 [facility] Work Phone: Comment on above: Expected: 06/02/2024 (Approximate), Expires: 06/02/2025 Start: 06-02-2024 End: 06-02-2025 Measurement of glucose 1 hour after glucose challenge for glucose tolerance test Glucose tolerance, 1 hour Lab Routine Diabetes mellitus screening Expected: 06/02/2024 (Approximate), Expires: 06/02/2025 [facility] Comment on above: Expected: 06/02/2024 (Approximate), Expires: 06/02/2025 Start: 06-02-2024 End: 06-02-2024 Patient encounter procedure 06/02/2024 10:10 AM EST Routine [facility] [address] [facility] [place] [phone] Scooby Vega, DO [address] [place], [place] [address] [address] [facility] Start: 05-02-2024 End: 05-02-2024 Patient encounter procedure 05/02/2024 3:30 PM EST Routine [facility] [address] [facility] [place] [address] Emely Hunter PA [address] [place] [address] [facility] Start: 05-02-2024 End: 10-30-2024 [...] EST Office Visit [facility] [address] [facility] [place] [address] Scooby Vega DO [address] [address] [facility] Start: 04-04-2024 End: 04-04-2024 [...] Treatment [facility] [address] [facility] [address] [place] [address] Gretchen Moreno, PT [facility] Start: 03-23-2024 End: 03-23-2024 ambulatory 03/23/2024 1:00 PM EDT Treatment [facility] [address] [facility] [address] [place] [address] Gretchen Moreno, PT [facility] Start: 03-18-2024 End: 03-18-2024 ambulatory 03/18/2024 1:30 PM EDT Treatment [facility] [address] [facility] [address] [place] [address] Gretchen Moreno, PT [facility] Start: 03-11-2024 End: 03-11-2024 ambulatory 03/11/2024 1:30 PM EDT Treatment [facility] [address] [facility] [address] [place] [address] Gretchen Moreno, PT [facility] Start: 03-07-2024 End: 03-07-2024 Patient encounter procedure 03/07/2024 10:10 AM EDT Routine [facility] [address] [place] [phone] Scooby Vega, [address] [facility] [address] [facility] Start: 03-03-2024 End: 03-03-2024 ambulatory 03/03/2024 10:30 AM EDT Treatment [facility] [address] [facility] [address] [place] [address] Gretchen Moreno, PT [facility] Start: 02-26-2024 End: 02-26-2024 ambulatory 02/26/2024 1:30 PM EDT Treatment [facility] [address] [facility] [address] [place] [address] Gretchen Moreno, PT Arrived [facility] Comment on above: Arrived Start: 02-25-2024 End: 02-25-2024 ambulatory 02/25/2024 10:30 AM EDT Treatment [facility] [address] [facility] [address] [place] [address] Gretchen Moreno, PT [facility] Start: 02-17-2024 End: 02-17-2024 ambulatory 02/17/2024 12:00 PM EDT Treatment [facility] [address] [facility] [address] [place] [address] Gretchen Moreno, PT [facility] Start: [...] AM EDT Initial [facility] [address] [facility] [place] [address] [facility] Start: 02-12-2024 End: 02-12-2024 Professional / ancillary services management 02/12/2024 10:00 AM EDT Ancillary Procedure [facility] [address] [facility] [place] [address] [facility] Start: 02-10-2024 End: 02-10-2024 ambulatory 02/10/2024 5:00 PM EDT Evaluation [facility] [address] [place] [address] [place] [address] Gretchen Moreno, PT Arrived [facility] Comment on above: Arrived Bacteria identified in Urine by Culture Urine culture Microbiology Routine Missed menses Ordered: 02/12/2024 [facility] Comment on above: Ordered: 02/12/2024 CBC W Auto Different ial panel - Blood CBC and differential Lab Routine Missed menses Ordered: 02/12/2024 [facility] Comment on above: Ordered: 02/12/2024 CHLAMYDIA TRACHOMATI S (GENITO/STI) CHLAMYDIA TRACHOMATIS (GENITO/STI) Lab Routine STD exposure Ordered: 05/02/2024 [facility] Comment on above: Ordered: 05/02/2024 Cytology Cervical or vaginal smear or scraping study Pap Smear Pathology and Cytology Routine Well woman exam with routine gynecological exam Ordered: 05/02/2024 [facility] Comment on above: Ordered: 05/02/2024 Hemoglobin A1c/Hemoglobin.total in Blood Hemoglobin A1c Lab Routine Missed menses Ordered: 02/12/2024 [facility] Comment on above: Ordered: 02/12/2024 Hepatitis B virus surface Ag [Presence] in Serum or Plasma by Immunoassay Hepatitis B surface antigen Lab Routine Missed menses Ordered: 02/12/2024 [facility] Comment on above: Ordered: 02/12/2024 Hepatitis C virus Ab [Presence] in Serum or Plasma by Immunoassay Hepatitis C antibody Lab Routine Missed menses Ordered: 02/12/2024 [facility] Comment on above: Ordered: 02/12/2024 HIV-1/HIV-2 antigen/antibody combination immunoassay HIV-1 and HIV-2 antibodies Lab Routine Missed menses Ordered: 02/12/2024 [facility] Comment on above: Ordered: 02/12/2024 Human papilloma viru s DNA [Presence] in Unspecified specimen by Probe with amplification HPV DNA probe, amplified Microbiology Routine Well woman exam with routine gynecological exam Ordered: 05/02/2024 [facility] Comment on above: Ordered: 05/02/2024 Neisseria gonorrhoea e DNA [Presence] in Unspecified specimen by JUAN ANTONIO with probe detection Neisseria gonorrhea DNA probe, direct Lab Routine STD exposure Ordered: 05/02/2024 [facility] Comment on above: Ordered: 05/02/2024 Reagin Ab [Presence] in Serum by RPR RPR Lab Routine Missed menses Ordered: 02/12/2024 [facility] Comment on above: Ordered: 02/12/2024 Rubella antibody, IgG Rubella an tibody, IgG Lab Routine Missed menses Ordered: 02/12/2024 [facility] Comment on above: Ordered: 02/12/2024 SURESWAB(R) ADVANCED VAGINITIS PLUS, TMA SURESWAB(R) ADVANCED VAGINITIS PLUS, TMA Pathology and Cytology Routine Vaginal discharge Ordered: 05/02/2024 [facility] Work Phone: Comment on above: Ordered: 05/02/2024 XR Hip - left 2 Views [facility] Payers Date Payer Category Payer Private Health Insurance ESTELA Decker [id number] 2022 Unknown NILAM Decker [place] [id number] 2022-Present [phone] [address] [place] [id number] 1987 Unknown [id number] 2.16.840.1.479221.3.579.2 .593 1987 Unknown [id number] 2.16.840.1.548975.3.579.2 .593 1987 Unknown [id number] 2.16.840.1.159869.3.579.2 .6 1987 Unknown [id number] 2.16.840.1.963008.3.579.2 .1285 1987 Unknown [id number] 2.16.840.1.225587.3.579.2 .1285 1987 Unknown [id number] 2.16840.1.671884.3.579.2 .1258 1987 Unknown [id number] 2.840.1.870047.3.579.2 .1258 1987 Unknown [id number] 2.840.1.043530.3.579.2 .1258 1987 Unknown [id number] 2.840.1.241478.3.579.2 .1258 1987 Unknown [id number] 2.840.1.659860.3.579.2 .1258 1987 Unknown [id number] 2.840.1.312547.3.579.2 .1258 1987 Unknown [id number] 2.840.1.760844.3.579.2 .1258 1987 Unknown [id number] 2.840.1.574447.3.579.2 .1258 1987 Unknown [id number] 2.16840.1.638225.3.579.2 .1258 1987 Unknown [id number] 2.16840.1.666853.3.579.2 .1258 1987 Unknown [id number] 2.16840.1.924359.3.579.2 .1258 1987 Unknown [id number] 2.16840.1.357266.3.579.2 .1259 1987 Unknown [id number] 2.16.840.1.667890.3.579.2 .9 1987 Unknown [id number] 2.16.840.1.677657.3.579.2 .9 1987 Unknown [id number] 2.16.840.1.229585.3.579.2 .1258 1987 Unknown [id number] 2.16.840.1.912946.3.579.2 .9 1987 Unknown [id number] 2.16.840.1.916793.3.579.2 .1258 1987 Unknown [id number] 2.16.840.1.479232.3.579.2 .9 1987 Unknown [id number] 2.16.840.1.636851.3.579.2 .9 1959 Unknown [id number] Social History Date Type Detail [facility] Work Phone: Start: 1985 Sex Assigned At Female F [facility] Start: 02-26-2023 [facility] Start: 11-09-2023 History of Social function [facility] Start: 11-09-2023 Tobacco use panel [facility] Start: 01-01-2024 [facility] Start: 1985 Sex assigned at Not on file [facility] Tobacco smoking stat [facility] Unknown if ever smoked [facility] Work Phone: Start: 06-27-2024 Sex Female (finding) [facility] Medical Equipment Procedure Code Equipment Code Equipment Origin al Text Equipment Identifier Dates 1 strip by In Vi tro route Daily Use in the morning prior to breakfast, 1 hour after each meal for a total of 4times daily. [id number] Start: 06-02-2024 End: 07-02-2024 1 each by In Vit ro route Daily Use to check FSBS four times daily [id number] Start: 06-02-2024 End: 07-02-2024 Goals Date Patient Goal Desired Activity /State Personal health goal Clinical Notes 02-10-2024 to 08-24-2024 Belle Villanueva, SCRUB NURSE - 08/24/2024 1:20 PM ESTSusan Spitler, SCRUB NURSE - 08/18/2024 9:20 AM ESTSusan Spitler, SCRUB NURSE - 08/01/2024 1:20 PM ESTSusan Spitler, SCRUB NURSE - 07/18/2024 2:30 PM EST Note Date [...] nursing note reviewed. Exam conducted with a stagecraft teacher present. Vitals: Estimated body mass index is [...] Scooby Vega DO documented in this encounter [facility] 08-18-2024 History of Present illness Narrative Reason [...] nursing note reviewed. Exam conducted with a stagecraft teacher present. Vitals: Estimated body mass index is [...] Scooby Vega DO documented in this encounter [facility] 08-01-2024 History of Present illness [...] 81 mg, Daily Blood Glucose Monitoring Suppl (Violet Grey Glucometer) w/Device kit 1 kit, Does not [...] nursing note reviewed. Exam conducted with a stagecraft teacher present. Vitals: Estimated body mass index is [...] Scooby Vega DO documented in this encounter [facility] 07-18-2024 History of Present illness Narrative Reason for Appointment: Patient ID: Raphael lEizabeth is a 38 y.o. female who presents [...] nursing note reviewed. Exam conducted with a stagecraft teacher present. Vitals: Estimated body mass index is [...] of:Emely Hunter PA-C documented in this encounter [facility] 06-30-2024 History of Present illness [...] 81 mg, Daily Blood Glucose Monitoring Suppl (Violet Grey Glucometer) w/Device kit 1 kit, Does not [...] Scooby Vega DO documented in this encounter [facility] 06-02-2024 History of Present illness [...] nursing note reviewed. Exam conducted with a stagecraft teacher present. Vitals: Estimated body mass index is [...] Scooby Vega DO documented in this encounter [facility] 05-02-2024 History of Present illness [...] nursing note reviewed. Exam conducted with a stagecraft teacher present. Vitals: Estimated body mass index is [...] without difficulty and patient was given [facility] order to have obtained. Orders [...] of: JORDYN Fonseca documented in this encounter [facility] 04-04-2024 History of Present illness [...] nursing note reviewed. Exam conducted with a stagecraft teacher present. Vitals: Estimated body mass index is [...] Aspirin. Discussed again in regards to seeing [facility] & referral will be completed. Patient to have NST/BPP starting at 32 weeks gestation. Patient will have Anatomy Scan done at [facility]. Patient is Rh Negative and [...] Scooby Vega DO documented in this encounter [facility] 04-01-2024 History of Present illness [...] and it pops a lot randomly. Precautions: [place] Subjective: Pt states overall, ROM has improved. [...] to be instructed in home exercise program. Ramp Manager Goals: To be met in 10 [...] sign below. Date: documented in this encounter [facility] 03-23-2024 History of Present illness [...] and it pops a lot randomly. Precautions: [place] Subjective: Pt states range of motion of [...] to be instructed in home exercise program. Penitentiary Goals: To be met in 10 weeks [...] sign below. Date: documented in this encounter [facility] 03-18-2024 History of Present illness [...] and it pops a lot randomly. Precautions: [place] Subjective: Pt states she feels like her [...] to be instructed in home exercise program. Penitentiary Goals: To be met in 10 weeks [...] sign below. Date: documented in this encounter [facility] 03-11-2024 History of Present illness [...] and it pops a lot randomly. Precautions: [place] Subjective: Pt states overall she believes hip [...] to be instructed in home exercise program. Ramp Manager Goals: To be met in 10 [...] sign below. Date: documented in this encounter [facility] 03-07-2024 History of Present illness [...] nursing note reviewed. Exam conducted with a stagecraft teacher present. Vitals: Estimated body mass index is [...] and stay away from [facility]. Patient has been consulted regarding any further do's and don'ts of . Patient voiced understanding and all questions and concerns were answered. Follow Up: Patient is to return in 4 weeks for routine OB appointment. Documented by Kalie Loera LPN on behalf of: Scooby Vega DO documented in this encounter [facility] 03-03-2024 History of Present illness [...] and it pops a lot randomly. Precautions: [place] Subjective: Pt states she has been doing [...] to be instructed in home exercise program. Ramp Manager Goals: To be met in 10 [...] sign below. Date: documented in this encounter [facility] 02-26-2024 History of Present illness [...] and it pops a lot randomly. Precautions: [place] Subjective: Pt states she was able to [...] to be instructed in home exercise program. Ramp Manager Goals: To be met in 10 [...] sign below. Date: documented in this encounter [facility] 02-17-2024 History of Present illness [...] and it pops a lot randomly. Precautions: [place] Subjective: Pt states she has not done [...] to be instructed in home exercise program. Ramp Manager Goals: To be met in 10 [...] sign below. Date: documented in this encounter [facility] 02-12-2024 History of Present illness [...] and stay away from [facility]. Patient has also been advised to not [...] Estee Cobb LPN documented in this encounter [facility] 02-10-2024 History of Present illness [...] and it pops a lot randomly. Precautions: [place] Subjective: left hip ant and lateral Pain: [...] to be instructed in home exercise program. Ramp Manager Goals: To be met in 10 [...] sign below. Date: documented in this encounter [facility] Evaluation note No assessment inform ation available [facility] Work Phone: Evaluation note Diagnosis Onset [...] CREATED AUTHOR AUTHOR'S ORGANIZ ATION 07/03/2024 [facility] DATE CREATED AUTHOR AUTHOR'S ORGANIZ ATION 08/26/2024 [facility] EPIC Care Teams [...] Scooby Vega Attending Provider Active Start: 2023 End: [...] December 01, 2023 End: December 01, 2023 Global Chief Experience Officer Relationship Specialty Start Date End Date Jen Granados MD [address] [facility] [place] [address] PCP - General Family Medicine 03/10/23 Global Chief Experience Officer Relationship Specialty Start Date End Date Jen Granados MD [address] [facility] [place] [address] PCP - General Family Medicine 03/10/23 Global Chief Experience Officer Relationship Specialty Start Date End Date Jen Granados MD [address] [facility] [place] [address] PCP - General Family Medicine 03/10/23 Global Chief Experience Officer Relationship Specialty Start Date End Date Jen Granados MD [address] [facility] [place] [address] PCP - General Family Medicine 03/10/23 Global Chief Experience Officer Relationship Specialty Start Date End Date Jen Granados MD [address] [facility] [place] [address] PCP - General Family Medicine 03/10/23 Global Chief Experience Officer Relationship Specialty Start Date End Date Jen Granados MD [address] [facility] [place] [address] PCP - General Family Medicine 03/10/23 Global Chief Experience Officer Relationship Specialty Start Date End Date Jen Granados MD [address] [facility] [place] [address] PCP - General Family Medicine 03/10/23 Global Chief Experience Officer Relationship Specialty Start Date End Date Jen Granados MD [address] [place] [address] PCP - General Family Medicine 03/10/23 Global Chief Experience Officer Relationship Specialty Start Date End Date Jen Granados MD [address] [place] [address] PCP - General Family Medicine 03/10/23 Global Chief Experience Officer Relationship Specialty Start Date End Date Jen Granados MD [address] [place] [address] PCP - General Family Medicine 03/10/23 Global Chief Experience Officer Relationship Specialty Start Date End Date Jen Granados MD [address] [place] [address] PCP - General Family Medicine 03/10/23 Global Chief Experience Officer Relationship Specialty Start Date End Date Jen Granados MD [address] [place] [address] PCP - General Family Medicine 03/10/23 Global Chief Experience Officer Relationship Specialty Start Date End Date Jen Granados MD [address] [place] [address] PCP - General Family Medicine 03/10/23 Global Chief Experience Officer Relationship Specialty Start Date End Date Jen Granados MD [address] [place] [address] PCP - General Family Medicine 03/10/23 Global Chief Experience Officer Relationship Specialty Start Date End Date Jen Granados MD [address] [place] [address] PCP - General Family Medicine 03/10/23 Team [...] June 25, 2024 End: June 25, 2024 Global Chief Experience Officer Relationship Specialty Start Date End Date Jen Granados MD [address] [place] [address] PCP - General Family Medicine 03/10/23 Global Chief Experience Officer Relationship Specialty Start Date End Date Jen Granados MD [address] [place] [address] PCP - General Family Medicine 03/10/23 Global Chief Experience Officer Relationship Specialty Start Date End Date Jen Granados MD [address] [facility] [place] [address] PCP - General Family Medicine 03/10/23 Global Chief Experience Officer Relationship Specialty Start Date End Date Jen Granados MD [address] [place] [address] PCP - General Family Medicine 03/10/23 Global Chief Experience Officer Relationship Specialty Start Date End Date Jen Granados MD [address] [place] [address] PCP - General Family Medicine 03/10/23 Global Chief Experience Officer Relationship Specialty Start Date End Date Jne Granados MD [address] [place] [address] PCP - General Family Medicine 03/10/23 Global Chief Experience Officer Relationship Specialty Start Date End Date Jen Granados MD [address] [place] [address] PCP - General Family Medicine 03/10/23 Goals [...] of left lower limb, excluding foot Procedures [place] PHYSICAL THERAPY EVALUATION LOW COMPLEX 20 MINS Ashley Rock MD [address] [place] [address] Gretchen Moreno PT Referral ID Status Reason Start Date Expiration Date V isits Requested Visits Authorized [id number] Authorized 02/10/2024 08/08/2024 99 99 Reason Comments [...] ON THE PRIMARY CLINICAL RECORDS. [facility] [employer] [facility]. provides no warranty or guarantee of the accuracy or completeness of information in this document.
[2024-08-30 18:15] VITALS: BP 117/73; PULSE 80
== END 2024-08-30 18:24 | disposition home or self-care (01) ==
LOC: FBCO 17:48 → FBC 17:49
PROVIDERS: PCP Family Medicine; Visit Provider Obstetrics & Gynecology
DX: O09.523 Supervision of elderly multigravida, third trimester (principal); Z3A.36 36 weeks gestation of pregnancy
CPT/HCPCS: 59025

== ENCOUNTER 2024-09-02 19:08 | Outpatient (OUT) | payer OTHER, SELFPAY ==
--- OUTSIDE RECORDS SUMMARY | 2024-09-02 19:10 | XMS_ITS | CCD ---
Author Organization [facility] Care Team Providers Care Cloth Designer Name Role Phone DOREEN, DR HOFFMAN Attending [...] MORENO Attending Unavailable ASHLEY ROCK Referring Unavailable SCOOYB VEGA Attending Unavailable EMELY HUNTER Attending Unavailable SCOOBY VEGA Attending Unavailable SCOOBY VEGA Attending Unavailable Allergies Allergy Classification Reported Allergen(s) Allergy Type Date of Onset Reaction(s) Facility (20 sources) Amoxicillin; Translations: [AMOXICILLIN] Drug Allergy 3 GI intolerance [facility] (3 sources) 12 Hour Decongestant Allergy to substance 3 Hives [facility] Medications Current Medications Medication Drug Class(es) Dates [...] 02/12/2024 Discontinued (Other) omega-3 acid ethyl esters (halfway) 1000 mg oral capsule (6 sources) take [...] UA Negative Negative - 4(70) +++ mg/dL [facility] Blood, UA Negative Negative - 50 Ulises/mcL [facility] Clarity, UA Clear [facility] Color, UA Yellow [facility] Glucose, UA Negative Negative - 2000(110) ++++ mg/dL [facility] Interpretation and review of laboratory results Abnormal [facility] Ketones, UA Negative Negative - 160(16) ++++ mg/dL [facility] Leukocytes, UA Trace Negative - 500+++ Clari/mcL [facility] Nitrite, UA Negative Negative - Positive [facility] pH, UA 7 5 - 9 [facility] Protein, UA Negative Negative - 2000(20) ++++ mg/dL [facility] Spec Grav, UA 1.015 1 - 1.03 [facility] Urobilinogen, UA 0.2 0.2 - 12 mg/dL [facility] US OB BPP W NON-STRESS on 08-20-2024 [place] [address] Ultrasound Report Signed Patient: RAPHAEL ELIZABETH MR#: [id number] : 1985 Acct:[id number] Age/Sex: 38 / F ADM Date: 08/19/24 Loc: US Attending Dr: Scooby Vega D.O. Ordering Physician: Scooby Vega D.O. Date of Service: 08/19/24 Procedure(s): US OB BPP w non-stress Accession Number(s): [id number] cc: Jen Granados M.D.; Scooby Vega D.O. [place] [id number] Patient Name: RAPHAEL ELIZABETH MRN: TBH:[id number] date: 1985 Sex: F Assigned Patient Location: [facility] Current Patient Location: Accession/Order Number: [id number] Exam Date: 08/20/2024 08:58 Report Date: 08/20/2024 [...] Chan Hudson M.D.08/20/2024 9:03 AM Dictation Location: [place] [address] Electronically authenticated by: [id number] Y Date: 08/20/2024 09:03 Dictated By: Chan Hudson M.D. Signed By: 08/20/24904 DD/ 2 TD/TT: Quantitative Analyst: [employer] [facility] Radiology, Radiologdora guillen MD - 08/20/2024 [place] [address] Ultrasound Report Signed Patient: RAPHAEL ELIZABETH MR#: [id number] : 1985 Acct:[id number] Age/Sex: 38 / F ADM Date: 08/19/24 Loc: US Attending Dr: Scooby Vega D.O. Ordering Physician: Scooby Vega D.O. Date of Service: 08/19/24 Procedure(s): US OB BPP w non-stress Accession Number(s): [id number] cc: Jen Granados M.D.; Scooby Veag D.O. The [place] [phone] Patient Name: RAPHAEL ELIZABETH MRN: [employer]:[id number] date: 1985 Sex: F Assigned Patient Location: [facility] Current Patient Location: Accession/Order Number: [id number] Exam Date: 08/20/2024 08:58 Report Date: 08/20/2024 [...] Chan Hudson M.D.08/20/2024 9:03 AM Dictation Location: [place] [address] Electronically authenticated by: [id number] Y Date: 08/20/2024 09:03 Dictated By: Chan Hudson M.D. Signed By: 08/20/24904 DD/ 2 TD/TT: Quantitative Analyst: [facility] Radiology Study observation (narrative) [facility] US OB BPP W NON-STRESS Ordered By: Radiologist Radiology on 08-20-2024 [facility] Work Phone: Urinalysis macro (dipstick) panel (U)on 08-18-2024 Bilirubin, UA Negative Negative - 4(70) +++ mg/dL [facility] Blood, UA Negative Negative - 50 Ulises/mcL [facility] Clarity, UA Clear [facility] Color, UA Yellow [facility] Glucose, UA Negative Negative - 2000(110) ++++ mg/dL [facility] Interpretation and review of laboratory results Abnormal [facility] Ketones, UA Negative Negative - 160(16) ++++ mg/dL [facility] Leukocytes, UA Negative Negative - 500+++ Clair/mcL [facility] Nitrite, UA Negative Negative - Positive [facility] pH, UA 7 5 - 9 [facility] Protein, UA Trace Negative - 2000(20) ++++ mg/dL [facility] Spec Grav, UA 1.025 1 - 1.03 [facility] Urobilinogen, UA 0.2 0.2 - 12 mg/dL [facility] US OB BPP W NON-STRESS on 08-12-[address] [address] Ultrasound Report Signed Patient: RAPHAEL ELIZABETH MR#: [id number] : 1985 Acct:[id number] Age/Sex: 38 / F ADM Date: 08/12/24 Loc: US Attending Dr: Scooby Vega D.O. Ordering Physician: Scooby Vega D.O. Date of Service: 08/12/24 Procedure(s): US OB BPP w non-stress Accession Number(s): [id number] cc: Jen Granados M.D.; Scooby Vega D.O. The [address] [address] Patient Name: RAPHAEL ELIZABETH MRN: [employer]:[id number] date: 1985 Sex: F Assigned Patient Location: [facility] Current Patient Location: Accession/Order Number: [id number] Exam Date: 08/12/2024 22:10 Report Date: 08/12/2024 22:12 At the request of: SCOOBY VEGA DO Procedure: US OB BPP w non-stress Biophysical profile. Reason for exam: GBM. COMPARISON: Biophysical profile 08/06/2024. TECHNIQUE: Transabdominal imaging of the gravid uterus was obtained. FINDINGS: Transportation Agent reports the BPP is 8 out of 8. SIDDHARTHA is normal 11.2 cm. heart rate 142 bpm. US/US OB BPP w non-stress IMPRESSION: BPP 8 out of 8. Impression dictated by: Lucas Martin Jr., D.O.08/12/2024 10:12 PM Dictation Location: [place] [address] Electronically authenticated by: [id number] Y Date: 08/12/2024 22:12 Dictated By: Lucas Martin M.D. Signed By: 08/12/242213 DD/ 11 TD/TT: Quantitative Analyst: [employer] Radiology, Radiologdora guillen MD - 08/12/2024 [place] [address] Ultrasound Report Signed Patient: RAPHAEL ELIZABETH MR#: [id number] : 1985 Acct:[id number] Age/Sex: 38 / F ADM Date: 08/12/24 Loc: US Attending Dr: Scooby Vega D.O. Ordering Physician: Scooby Vega D.O. Date of Service: 08/12/24 Procedure(s): US OB BPP w non-stress Accession Number(s): [id number] cc: Jen Granados M.D.; Scooby Vega D.O. [place] [address] Patient Name: RAPHAEL ELIZABETH MRN: TBH:[id number] date: 1985 Sex: F Assigned Patient Location: [facility] Current Patient Location: Accession/Order Number: [id number] Exam Date: 08/12/2024 22:10 Report Date: 08/12/2024 22:12 At the request of: SCOOBY VEGA DO Procedure: US OB BPP w non-stress Biophysical profile. Reason for exam: GBM. COMPARISON: Biophysical profile 08/06/2024. TECHNIQUE: Transabdominal imaging of the gravid uterus was obtained. FINDINGS: Transportation Agent reports the BPP is 8 out of 8. SIDDHARTHA is normal 11.2 cm. heart rate 142 bpm. US/US OB BPP w non-stress IMPRESSION: BPP 8 out of 8. Impression dictated by: Lucas Martin Jr., D.O.08/12/2024 10:12 PM Dictation Location: [place] [address] Electronically authenticated by: [id number] Y Date: 08/12/2024 22:12 Dictated By: Lucas Martin M.D. Signed By: 08/12/242213 DD/ 11 TD/TT: Quantitative Analyst: [facility] Radiology Study observation (narrative) [facility] US OB BPP W NON-STRESS Ordered By: Radiologist Radiology on 08-12-2024 [facility] Work Phone: US OB BPP W NON-STRESS on 08-06-[address] [address] Ultrasound Report Signed Patient: RAPHAEL ELIZABETH MR#: [id number] : 1985 Acct:[id number] Age/Sex: 38 / F ADM Date: 08/05/24 Loc: US Attending Dr: Scooby Vega D.O. Ordering Physician: Scooby Vega D.O. Date of Service: 08/05/24 Procedure(s): US OB BPP w non-stress Accession Number(s): [id number] cc: Jen Granados M.D.; Scooby Vega D.O. [place] [phone] Patient Name: RAPHAEL ELIZABETH MRN: [employer]:[id number] date: 1985 Sex: F Assigned Patient Location: [facility] Current Patient Location: Accession/Order Number: [id number] Exam Date: 08/05/2024 19:09 Report Date: 08/06/2024 [...] Signed By: 08/06/24 0753 DD/ 0751 TD/TT: Quantitative Analyst: [employer] Radiology, Radiologi MD wilmer - 08/06/2024 [place] [address] Ultrasound Report Signed Patient: RAPHAEL ELIZABETH MR#: [id number] : 1985 Acct:[id number] Age/Sex: 38 / F ADM Date: 08/05/24 Loc: US Attending Dr: Scooby Vega D.O. Ordering Physician: Scooby Vega D.O. Date of Service: 08/05/24 Procedure(s): US OB BPP w non-stress Accession Number(s): [id number] cc: Jen Granados M.D.; Scooby Vega D.O. The [place] [phone] Patient Name: RAPHAEL ELIZABETH MRN: [id number]:[id number] date: 1985 Sex: F Assigned Patient Location: [facility] Current Patient Location: Accession/Order Number: [id number] Exam Date: 08/05/2024 19:09 Report Date: 08/06/2024 [...] Signed By: 08/06/24 0753 DD/ 075 TD/TT: Quantitative Analyst: [facility] Radiology Study observation (narrative) [facility] US OB BPP W NON-STRESS Ordered By: Radiologist Radiology on 08-06-2024 [facility] Work Phone: US OB BPP W NON-STRESS on 08-01-2024 [place] [address] Ultrasound Report Signed Patient: RAPHAEL ELIZABETH MR#: [id number] : 1985 Acct:[id number] Age/Sex: 38 / F ADM Date: 07/29/24 Loc: US Attending Dr: Scooby Vega D.O. Ordering Physician: Scooby Vega D.O. Date of Service: 07/29/24 Procedure(s): US OB BPP w non-stress Accession Number(s): [id number] cc: Jen Granados M.D.; Scooby Vega D.O. [place] [phone] Patient Name: RAPHAEL ELIZABETH MRN: [employer]:[id number] date: 1985 Sex: F Assigned Patient Location: [facility] Current Patient Location: Accession/Order Number: [id number] Exam Date: 07/29/2024 19:04 Report Date: 08/01/2024 [...] M.D. Signed By: 08/01/24713 DD/ 0 TD/TT: Quantitative Analyst: [employer] Radiology, Radiologi MD wilmer - 08/01/2024 [place] [address] Ultrasound Report Signed Patient: RAPHAEL ELIZABETH MR#: [id number] : 1985 Acct:[id number] Age/Sex: 38 / F ADM Date: 07/29/24 Loc: US Attending Dr: Scooby Vega D.O. Ordering Physician: Scooby Vega D.O. Date of Service: 07/29/24 Procedure(s): US OB BPP w non-stress Accession Number(s): [id number] cc: Jen Granados M.D.; Scooby Vega D.O. The [place] [address] Patient Name: RAPHAEL ELIZABETH MRN: TBH:[id number] date: 1985 Sex: F Assigned Patient Location: [facility] Current Patient Location: Accession/Order Number: [id number] Exam Date: 07/29/2024 19:04 Report Date: 08/01/2024 [...] M.D. Signed By: 08/01/24713 DD/ 0 TD/TT: Quantitative Analyst: [facility] Radiology Study observation (narrative) [facility] US OB BPP W NON-STRESS Ordered By: Radiologist Radiology on 08-01-2024 [facility] Work Phone: Urinalysis macro (dipstick) panel (U)on 08-01-2024 Bilirubin, UA Negative Negative - 4(70) +++ mg/dL [facility] Blood, UA Negative Negative - 50 Ulises/mcL [facility] Clarity, UA Clear [facility] Color, UA Yellow [facility] Glucose, UA Negative Negative - 1999(110) ++++ mg/dL [facility] Interpretation and review of laboratory results Abnormal [facility] Ketones, UA Negative Negative - 160(16) ++++ mg/dL [facility] Leukocytes, UA Trace Negative - 500+++ Clair/mcL [facility] Nitrite, UA Negative Negative - Positive [facility] pH, UA 7.5 5 - 9 [facility] Protein, UA Negative Negative - 1999(20) ++++ mg/dL [facility] Spec Grav, UA 1.015 1 - 1.03 [facility] Urobilinogen, UA 0.2 0.2 - 12 mg/dL [facility] Urinalysis macro (dipstick) panel (U)on 07-18-2024 Bilirubin, UA Negative Negative - 4(70) +++ mg/dL [facility] Blood, UA Negative Negative - 50 Ulises/mcL [facility] Clarity, UA Clear [facility] Color, UA Yellow [facility] Glucose, UA Negative Negative - 1999(110) ++++ mg/dL [facility] Interpretation and review of laboratory results Normal [facility] Ketones, UA Negative Negative - 160(16) ++++ mg/dL [facility] Leukocytes, UA Negative Negative - 500+++ Lcair/mcL [facility] Nitrite, UA Negative Negative - Positive [facility] pH, UA 7 5 - 9 [facility] Protein, UA Negative Negative - 1999(20) ++++ mg/dL [facility] Spec Grav, UA 1.025 1 - 1.03 [facility] Urobilinogen, UA 0.2 0.2 - 12 mg/dL [facility] ALL CBC WITH AUTO DIFFon BASOPHILS ABSOLUTE AUTO 0 [facility] Basophils/100 WBC (Bld) 0.2 % 0.2 - 2.0 % [facility] Eosinophils/100 WBC (Bld) 0.9 % 0.9 - 7.0 % [facility] Erythrocyte distribution width (RBC) [Ratio] 13 % 11.0 - 15.0 % [facility] Hematocrit (Bld) [Volume fraction] 32.2 % Low 36.0 - 48.0 % [facility] Hemoglobin (Bld) [Mass/Vol] 10.9 g/dL Low 12.0 - 16.0 g/dL [facility] IMMATURE GRANULOCYTES ABS AUTO 0.13 High [facility] Immature granulocytes/100 WBC (Bld) 1.4 % High 0.0 - 0.5 % [facility] Interpretation and review of laboratory results Abnormal [facility] LYMPHOCYTES ABSOLUTE AUTO 1.4 [facility] Lymphocytes/100 WBC (Bld) 15.4 % Low 20.5 - 60.0 % [facility] MCH (RBC) [Entitic mass] 32.7 pg 26.7 - 34.0 pg [facility] MCHC (RBC) [Mass/Vol] 33.9 g/dL 29.9 - 35.2 g/dL [facility] MCV (RBC) [Entitic vol] 96.7 fL 81.0 - 99.0 fL [facility] MONOCYTES ABSOLUTE AUTO 0.5 [facility] Monocytes/100 WBC (Bld) 4.8 % 1.7 - 12.0 % [facility] NEUTROPHILS ABSOLUTE AUTO 7.2 High [facility] Neutrophils/100 WBC (Bld) 77.3 % High 43.0 - 75.0 % [facility] Platelet mean volume (Bld) [Entitic vol] 9.2 fL Low 9.5 - 13.5 fL [facility] TBH EO # 0.1 [facility] TB PLT 229 [facility] RBC 3.33 Low [facility] WBC 9.3 [facility] Urinalysis macro (dipstick) panel (U)on 06-30-2024 Bilirubin, UA Negative Negative - 4(70) +++ mg/dL [facility] Blood, UA Negative Negative - 50 Ulises/mcL [facility] Clarity, UA Clear [facility] Color, UA Yellow [facility] Glucose, UA Negative Negative - 2000(110) ++++ mg/dL [facility] Interpretation and review of laboratory results Abnormal [facility] Ketones, UA Negative Negative - 160(16) ++++ mg/dL [facility] Leukocytes, UA Trace Negative - 500+++ Clair/mcL [facility] Nitrite, UA Negative Negative - Positive [facility] pH, UA 8.5 5 - 9 [facility] Protein, UA Positive Negative - 1999(20) ++++ mg/dL [facility] Comment on above: trace Spec Grav, UA 1.015 1 - 1.03 [facility] Urobilinogen, UA 0.2 0.2 - 12 mg/dL [facility] Basophils/100 WBC Manual cnt (Bld)on 06-25-2024 Basophils/100 WBC (Bld) Basophils/100 leukocytes in Blood by Manual count Low 0.2-2.0 [facility] Eosinophils/100 WBC Manual c nt (Bld)on 06-25-2024 Eosinophils/100 WBC (Bld) Eosinophils/100 leukocytes in Blood by Manual count 0.9-7.0 [facility] Erythrocyte distribution wid th Auto (RBC) [Ratio]on 06-25-2024 Erythrocyte distribution width (RBC) [Ratio] Erythrocyte distribution width [Ratio] by Automated count 11.0-15.0 [facility] Estimated glomerular filtrat ion rate (GFR) non- Americanon 06-25-2024 GFR/1.73 sq M.predicted among non-blacks MDRD (S/P/Bld) [Vol rate/Area] Estimated glomerular filtration rate (GFR) non- >=60 mL/min/1.73 m 2 [facility] Hematocrit Auto (Bld) [Volum e fraction]on 06-25-2024 Hematocrit (Bld) [Volume fraction] Hematocrit [Volume Fraction] of Blood by Automated count Low 36.0-48.0 [facility] Hemoglobin [Mass/volume] in Bloodon 06-25-2024 Hemoglobin (Bld) [Mass/Vol] Hemoglobin [Mass/volume] in Blood Low 12.0-16.0 [facility] Laboratory - Chemistry and C hemistry - challengeon 06-25-2024 Calcium [Mass/Vol] 8.2 mg/dL Low 8.5-10.1 [facility] Chloride [Moles/Vol] 99 mmol/L 98-107 [facility] CO2 [Moles/Vol] 21.2 mmol/L 21.0-32.0 [facility] Creatinine [Mass/Vol] 0.89 mg/dL 0.55-1.02 [facility] GFR/1.73 sq M.predicted MDRD (S/P/Bld) [Vol rate/Area] mL/min/{1.73_m2} >=60 mL/min/1.73 m 2 [facility] Glucose [Mass/Vol] 98 mg/dL 74-106 [facility] Potassium [Moles/Vol] 3.7 mmol/L 3.5-5.1 [facility] Sodium [Moles/Vol] 130 mmol/L Low 136-145 [facility] Urea nitrogen [Mass/Vol] 7.0 mg/dL 7.0-18.0 [facility] Urea nitrogen/Creatinine [Mass ratio] 7.9 mg/mg [facility] Bilirubin Ql (U) Negative NEGATIVE [facility] Glucose (U) [Mass/Vol] Negative NEGATIVE [facility] Ketones Ql (U) 15 mg/dL Abnormal NEGATIVE [facility] pH (U) 7.5 [pH] 5.0-9.0 [facility] Specific gravity (U) [Rel density] 1.015 1.005-1.025 [facility] Urobilinogen Qn (U) 1.0 {Ree'U}/dL 0.2-1.0 [facility] Laboratory - Hematology and Cell countson 06-25-2024 Band form neutrophils/100 WBC (Bld) 2.0 % 0-5 [facility] Lymphocytes/100 WBC (Bld) 2.0 % Low 20.5-60.0 [facility] Monocytes/100 WBC (Bld) 5.0 % 1.7-12.0 [facility] Laboratory - Microbiology an d Antimicrobial susceptibilityon 06-25-2024 SARS-CoV-2 (COVID-19) RNA JUAN ANTONIO+probe Ql (Unsp spec) Negative NEGATIVE [facility] Comment on above: This test has not [...] Appearance (U) CLOUDY Abnormal CLEAR [facility] Color (U) DK YELLOW YELLOW [facility] Laboratory - Urinalysison Leukocyte esterase Test strip Ql (U) Negative NEGATIVE [facility] Nitrite Ql (U) Negative NEGATIVE [facility] Protein Ql (U) TRACE mg/dL NEG/TRACE [facility] Leukocytes [#/volume] correc leroy for nucleated erythrocytes in Blood by Automated counon 06-25-2024 WBC corrected for nucl RBC Auto (Bld) [#/Vol] Leukocytes [#/volume] corrected for nucleated erythrocytes in Blood by Automated coun 4.0-11.0 [facility] MCH Auto (RBC) [Entitic mass ]on 06-25-2024 MCH (RBC) [Entitic mass] MCH [Entitic mass] by Automated count 26.7-34.0 [facility] MCHC Auto (RBC) [Mass/Vol]on 06-25-2024 MCHC (RBC) [Mass/Vol] MCHC [Mass/volume] by Automated count 29.9-35.2 [facility] MCV Auto (RBC) [Entitic vol] on 06-25-2024 MCV (RBC) [Entitic vol] MCV [Entitic volume] by Automated count 81.0-99.0 [facility] No Panel Informationon 06-25 Absolute Basophils (Manual) 0.00 10 3/uL 0.00-0.10 [facility] Band Neutrophils # (Manual) 0.2 10 3/uL 0.0-0.3 [facility] Eosinophils # (Manual) 0.08 10 3/uL 0.00-0.70 [facility] Lymphocytes # (Manual) 0.16 10 3/uL Low 1.20-3.80 [facility] Monocytes # (Manual) 0.41 10 3/uL 0.30-0.80 [facility] Segmented Neutrophils # (Manual) 7.38 10 3/uL High 1.4-6.5 [facility] Urine Occult Blood Negative NEGATIVE [facility] Bedside Influenza Type A Antigen Positive Abnormal [facility] Comment on above: NOTE: Live attenuate d influenza vaccine viruses can cause apositive result for a rapid influenza diagnostic test ifadministered up to 7 days prior to rapid testing. Bedside Influenza Type B Antigen Negative [facility] Comment on above: Negative for Flu B p rotein antigen. Infection due to Flu Bcannot be ruled out. Flu B antigen in the sample may bebelow the detection limit of the test. Platelet mean volume Auto (B ld) [Entitic vol]on 06-25-2024 Platelet mean volume (Bld) [Entitic vol] Platelet mean volume [Entitic volume] in Blood by Automated count Low 9.5-13.5 [facility] Platelets Auto (Bld) [#/Vol] on 06-25-2024 Platelets (Bld) [#/Vol] Platelets [#/volume] in Blood by Automated count 150-450 [facility] RBC Auto (Bld) [#/Vol]on RBC (Bld) [#/Vol] Erythrocytes [#/volu me] in Blood by Automated count Low 4.20-5.40 [facility] Segmented neutrophils/100 WB C Manual cnt (Bld)on 06-25-2024 Segmented neutrophils/100 WBC (Bld) Manual blood segmented neutrophils/100 leukocytes High 43.0-75.0 [facility] Serum or plasma anion gap de terminationon 06-25-2024 Anion gap [Moles/Vol] Serum or plasma anion gap determination [facility] Urine Cultureon 06-25-2024 Bacteria identified Cx Nom (U) No Growth 2 Days PERFORMED BY: [facility] [address] [place] [address] PATHOLOGIST PROCESSOR INSPECTOR DANTE PALACIOS M.D. Normal [facility] Comment on above: Performed By: #### C UU #### [facility] [address] IGP,APTIMA HPV,AGE GDLNon AGE GDLN ACOG TESTING Note . [facility] Comment on above: TESTS RESULT FLAG U NITS REF RANGE LAB Clinician Provided Cytology Information Source.............Cervix No. of containers..01 ThinPrep Vial Age Algo ACOG Annel... FLAG LEGEND: L-Low Normal,H-High Normal,LL-Alert Low,HH-Alert High <-Panic Low,>-Panic High,A-Abnormal,AA-Critical Abnormal Performed at: 01 = [facility] [address] Kathryn Maldonado MD, HPV APTIMA Negative Negative [facility] Comment on above: This nucleic acid am plification test detects fourteen high- risk HPV types (16,18,31,33,35,39,45,51,52,56,58,59,66,68) without differentiation. Performed at: =[facility] [address] [id number] Screen Making Technician: Kathryn Maldonado MD, Phone: [phone] Performed at: [address] [id number] Screen Making Technician: Kathryn Maldonado MD, Phone: [phone] IGP, APTIMA HPV, RFX 16/18,45 Note . [facility] Comment on above: TESTS RESULT FLAG UN ITS REF RANGE LAB DIAGNOSIS: 02 NEGATIVE FOR INTRAEPITHELIAL LESION OR MALIGNANCY. Specimen adequacy: 02 Satisfactory for evaluation. Endocervical and/or squamous metaplastic cells (endocervical component) are present. Performed by: 02 Thao Shankar, Office Machine Technician . 02 Note: Note 02 The Pap [...] High,A-Abnormal,AA-Critical Abnormal Performed at: 02 [address] [facility] [place] [address] [place] [address] Kathryn Maldonado MD, BRUSH-SPATULA CERVIX [facility] RECURRENT VAGINITIS (HTRX)on 11-14-2024 ATOPOBIUM VAGINAE 0 [facility] ATOPOBIUM VAGINAE Not detected [facility] BVAB 2,3 (BACTERIAL VAGINOSIS ASSOCIATED BACTERIA 2, 3); MOBILUNCUS SPP 0 [facility] BVAB 2,3 (BACTERIAL VAGINOSIS ASSOCIATED BACTERIA 2, 3); MOBILUNCUS SPP Not detected [facility] JED ALBICANS, PARAPSILOSIS, TROPICALIS 0 [facility] JED ALBICANS, PARAPSILOSIS, TROPICALIS Not detected [facility] JED GLABRATA 0 [facility] JED GLABRATA Not detected [facility] JED KRUSEI 0 [facility] JED KRUSEI Not detected [facility] CHLAMYDIA TRACHOMATIS 0 [facility] CHLAMYDIA TRACHOMATIS Not detected [facility] GARDNERELLA VAGINALIS 0 [facility] GARDNERELLA VAGINALIS Not detected [facility] MEGASPHAERA (TYPES 1, 2) 0 [facility] MEGASPHAERA (TYPES 1, 2) Not detected [facility] MYCOPLASMA GENITALIUM 0 [facility] MYCOPLASMA GENITALIUM Not detected [facility] NEISSERIA GONORRHOEAE 0 [facility] NEISSERIA GONORRHOEAE Not detected [facility] TRICHOMONAS VAGINALIS 0 [facility] TRICHOMONAS VAGINALIS Not detected [facility] Urinalysis macro (dipstick) panel (U)on 05-03-2024 Bilirubin, UA Negative Negative - 4(70) +++ mg/dL [facility] Blood, UA Negative Negative - 50 Ulises/mcL [facility] Clarity, UA Clear [facility] Color, UA Yellow [facility] Glucose, UA Negative Negative - 1999(110) ++++ mg/dL [facility] Interpretation and review of laboratory results Normal [facility] Ketones, UA Negative Negative - 160(16) ++++ mg/dL [facility] Leukocytes, UA Negative Negative - 500+++ Clair/mcL [facility] Nitrite, UA Negative Negative - Positive [facility] pH, UA 0.5 5 - 9 [facility] Protein, UA Negative Negative - 1999(20) ++++ mg/dL [facility] Spec Grav, UA 1.025 1 - 1.03 [facility] Urobilinogen, UA 1.0 0.2 - 12 mg/dL [facility] Human papilloma virus 16+18+ 31+33+35+39+45+51+52+56+58+59+66+68 DNA [Presence] in Denis 05-02-2024 HPV 16+18+31+33+35+39+4 5+51+52+56+58+59+66 +68 DNA Probe+sig amp Ql (Cvx) Human papilloma virus 16+18+31+33+35+39+45+51+52+5 6+58+59+66+68 DNA [Presence] in Cer Negative [facility] Comment on above: This nucleic acid am plification test detects fourteen high- risk HPV types (16,18,31,33,35,39,45,51,52,56,58,59,66,68)without differentiation.Performed at: =G - [facility] [address] [id number] Director: Kathryn Maldonado MD, Phone: [phone] at: - [facility] [address] [id number] Director: Kathryn Maldonado MD, Phone: [phone] No Panel Informationon 05-02 HPV High Risk Other Comment Note . [facility] Comment on above: TESTS RESULT FLAG UN ITS REF RANGE LAB JESE GNOSIS: 02 NEGATIVE FOR INTRAEPITHELIAL LESION OR MALIGNANCY.Specimen adequacy: 02 Satisfactory for evaluation. Endocervical and/or squamous metaplastic cells (endocervical component) are present.Performed by: 02 Thao Shankar, Office Machine Technician. 02Note: Note 02 The Pap smear is [...] Low,>-Panic High,A-Abnormal,AA-Critical Abnormal --Performed at:02 WB [facility] [place] [address] [place] [address] Kathryn Maldonado MD, Reference Lab Test Patient Age Note . [facility] Comment on above: TESTS RESULT FLAG UN ITS REF RANGE LAB Clinician Provided Cytology Information Source.............Cervix No. of containers..01 ThinPrep VialAge Richie SANDERS Annel... 30 FLAG LEGEND: L-Low Normal,H-High Normal,LL-Alert Low,HH-Alert High <-Panic Low,>-Panic High,A-Abnormal,AA-Critical Abnormal --Performed at:01 =G [facility] [address] [place] [address] Kathryn Maldonado MD, AFP, SERUM, OPEN SPINA BIFID Aon 05-01-2024 AFP MOM 1.18 . [facility] AFP VALUE 61.8 ng/mL . [facility] COMMENT: Comment . [facility] Comment on above: Cydney Rodriguez , Ph.D., [facility] Director References: Available Upon Request. Multiples Of Median Cutoffs For AFP Elevations Chiang 2.5 Black 2.8 IDD 2.0 Twins 4.5 Abbreviation Definitions IDD - Insulin Dep Diabetes OSBR - Open Spina Bifida Risk For further inquiries contact [facility] at [phone]. This test was developed and its performance characteristics determined by [facility].. It has not been cleared or approved by the Food and Drug Administration. Performed at: [facility] [address] [place], [place] [id number] Screen Making Technician: Marissa Kovacs [facility], Phone: [phone] GEST. AGE ON COLLECTION DATE 19.0 . weeks [facility] GESTAT. AGE BASED ON LMP . [facility] Comment on above: Recalculations are n ot recommended when gestational dating by LMP and ultrasound are within 10 days. INSULIN DEP DIABETES No . [facility] INTERPRETATION Comment . [facility] Comment on above: Interpretation: Scre en Negative [...] Customer Services to discuss available options. The [employer] recommends amniocentesis be offered to women age 35 and older. [age] [facility] MULTIPLE GESTATION No . [facility] OSBR RISK 1 IN 6916 . [facility] RACE . [facility] RESULTS Report . [facility] TEST RESULTS: Negative . [facility] WEIGHT 135 . lbs [facility] N N LMP [id number] 3 15 N 1 Y 135 N N N N N White/ [facility] Alpha-fetoprotein (AFP) paige urement (kngqttmf-ut-vvrwea)on 04-29-2024 AFP [MoM] Alpha-fetoprotein (A FP) measurement (lruylehc-wk-cnuinj) . [facility] Assess gestational ageon Gestational age Assess gestational age . [facility] Estimation of maternal age-s pecific risk of Down syndrome birthon 04-29-2024 Age [Time] Estimation of matern al age-specific risk of Down syndrome . [facility] Insulin dependent diabetes m ellitus detectionon 04-29-2024 Insulin dependent diabetes mellitus Ql Insulin dependent diabetes mellitus detection . [facility] Interpretation of serum or p lasma second trimester quad maternal screen (narrative reon 04-29-2024 Second trimester quad maternal screen Darshan [Interp] Interpretation of serum or plasma second trimester quad maternal screen (narrative re . [facility] Comment on above: Interpretation: Scre en NegativeThis [...] Triple Screen Comment Comment . [facility] Comment on above: Cydney Rodriguez , Ph.D., DABCCDirectorReferences: Available Upon Request.Multiples Of Median Cutoffs For AFP ElevationsSingleton 2.5 Black 2.8IDD 2.0 Twins 4.5 Abbreviation DefinitionsIDD - Insulin Dep DiabetesOSBR - Open Spina Bifida RiskFor further inquiries contact [employer] [facility] at [phone].This test was developed and its performance characteristicsdetermined by [facility].. It has not been cleared or approvedby the Food and Drug Administration.Performed at: [facility] [employer] [id number] [place], [place] [id number] Director: Marissa Kovacs [facility], Phone: [phone] Alpha Fetoprotein Results Received Report . [facility] Gestational Age Calculation Method LMP . [facility] Comment on above: Recalculations are n ot recommended when gestational datingby LMP and ultrasound are within 10 days. Maternal Quad Test Risk 6916 . [facility] Maternal Race . [facility] Multiple No . [facility] Serum or plasma pwrtd-1-zcxz protein measurement (mass/volume)on 04-29-2024 AFP [Mass/Vol] Serum or plasma ymfyw-2-szbdfisvzqi measurement (mass/volume) . [facility] BOX TEST SENT OUTon BOX TEST SENT OUT Y [facility] ALL CBC WITH AUTO DIFFon BASOPHILS ABSOLUTE AUTO 0.0 [facility] Basophils/100 WBC (Bld) 0.5 % 0.2 - 2.0 % [facility] Eosinophils/100 WBC (Bld) 0.9 % 0.9 - 7.0 % [facility] Erythrocyte distribution width (RBC) [Ratio] 11.9 % 11.0 - 15.0 % [facility] Hematocrit (Bld) [Volume fraction] 37.3 % 36.0 - 48.0 % [facility] Hemoglobin (Bld) [Mass/Vol] 12.7 g/dL 12.0 - 16.0 g/dL [facility] IMMATURE GRANULOCYTES ABS AUTO 0.02 [facility] Immature granulocytes/100 WBC (Bld) 0.3 % 0.0 - 0.5 % [facility] Interpretation and review of laboratory results Abnormal [facility] LYMPHOCYTES ABSOLUTE AUTO 1.8 [facility] Lymphocytes/100 WBC (Bld) 27.4 % 20.5 - 60.0 % [facility] MCH (RBC) [Entitic mass] 32.2 pg 26.7 - 34.0 pg [facility] MCHC (RBC) [Mass/Vol] 34.0 g/dL 29.9 - 35.2 g/dL [facility] MCV (RBC) [Entitic vol] 94.4 fL 81.0 - 99.0 fL [facility] MONOCYTES ABSOLUTE AUTO 0.3 [facility] Monocytes/100 WBC (Bld) 5.1 % 1.7 - 12.0 % [facility] NEUTROPHILS ABSOLUTE AUTO 4.4 [facility] Neutrophils/100 WBC (Bld) 65.8 % 43.0 - 75.0 % [facility] Platelet mean volume (Bld) [Entitic vol] 9.4 fL Low 9.5 - 13.5 fL [facility] TB EO # 0.1 [facility] TB PLT [address] [facility] RBC 3.95 Low [facility] WBC 6.6 [facility] HCG ( test) Ql (U)o n 02-12-2024 Interpretation and review of laboratory results Abnormal [facility] Preg Test, Ur Positive [facility] Urinalysis macro (dipstick) panel (U)on 02-12-2024 Bilirubin, UA Negative Negative - 4(70) +++ mg/dL [facility] Blood, UA Negative Negative - 50 Ulises/mcL [facility] Clarity, UA Clear [facility] Color, UA Yellow [facility] Glucose, UA Negative Negative - 1999(110) ++++ mg/dL [facility] Interpretation and review of laboratory results Normal [facility] Ketones, UA Negative Negative - 160(16) ++++ mg/dL [facility] Leukocytes, UA Negative Negative - 500+++ Clair/mcL [facility] Nitrite, UA Negative Negative - Positive [facility] pH, UA 6.5 5 - 9 [facility] Protein, UA Negative Negative - 1999(20) ++++ mg/dL [facility] Spec Grav, UA 1.015 1 - 1.03 [facility] Urobilinogen, UA 1.0 0.2 - 12 mg/dL [facility] No Panel Informationon 11-29 Human Chorionic Gonadotropin, Quant 2 mIU/mL [facility] Comment on above: 5-50 0.2-1 XNOB78-38 0 1-2 BNXNI332-3,000 2-3 MWQSI739-84,000 3-4 WEEKS1,000-50,000 4-5 WEEKS10,000-100,000 5-6 WEEKS15,000-200,000 6-8 WEEKS10,000-100,000 2-3 MONTHS No Panel Informationon 11-22 Human Chorionic Gonadotropin, Quant 3 mIU/mL [facility] Comment on above: 5-50 0.2-1 HOVB28-31 0 1-2 JPGZR140-8,000 2-3 LBDZB818-81,000 3-4 WEEKS1,000-50,000 4-5 WEEKS10,000-100,000 5-6 WEEKS15,000-200,000 6-8 WEEKS10,000-100,000 2-3 MONTHS No Panel Informationon 11-16 Human Chorionic Gonadotropin, Quant 6 mIU/mL [facility] Comment on above: 5-50 0.2-1 IZGR32-47 0 1-2 QULIK467-6,000 2-3 KJXRU842-58,000 3-4 WEEKS1,000-50,000 4-5 WEEKS10,000-100,000 5-6 WEEKS15,000-200,000 6-8 WEEKS10,000-100,000 2-3 MONTHS No Panel Informationon 11-08 Human Chorionic Gonadotropin, Quant 27 mIU/mL [facility] Comment on above: 5-50 0.2-1 KKMD94-80 0 1-2 CEBVO803-6,000 2-3 BUTPH654-01,000 3-4 WEEKS1,000-50,000 4-5 WEEKS10,000-100,000 5-6 WEEKS15,000-200,000 6-8 WEEKS10,000-100,000 2-3 MONTHS Basophils Auto (Bld) [#/Vol] on 10-23-2023 Basophils (Bld) [#/Vol] 0.0 10 3/uL 0.0-0.1 [facility] Basophils/100 WBC Auto (Bld) on 10-23-2023 Basophils/100 WBC (Bld) 0.8 % 0.2-2.0 [facility] Eosinophils/100 WBC Auto (Bl d)on 10-23-2023 Eosinophils/100 WBC (Bld) 1.4 % 0.9-7.0 [facility] Erythrocyte distribution wid th Auto (RBC) [Ratio]on 10-23-2023 Erythrocyte distribution width (RBC) [Ratio] 11.9 % 11.0-15.0 [facility] Hematocrit Auto (Bld) [Volum e fraction]on 10-23-2023 Hematocrit (Bld) [Volume fraction] 36.0 % 36.0-48.0 [facility] Hemoglobin [Mass/volume] in Bloodon 10-23-2023 Hemoglobin (Bld) [Mass/Vol] 11.8 g/dL 12.0-16.0 [facility] Krzysztof 10-23-2023 L Specimen: [id number] R eceived: 10/26/23 Status: MAIA Newell Num: [id number] Spec Type: Surgical Subm Dr: Scooby Vega Tissues: A Products of Conception - Spontaneous or Missed (POC) Procedures: HE/3, Gross/Micro L4 Age/ Patient Sex Location Account Attending Physician Raphael Elizabeth 37/F LABELL [id number] Scooby Vega SPEC NUM: [id number] RECD: 10/26/23 STATUS: MAIA NEWELL NUM: [id number] JANIE: 10/23/[address]: Scooby Vega ENTERED: 10/26/23 [facility] DR: Owen,Lab SPEC TYPE: Surgical DEPT: POOJA [...] cm possible area of villous tissue identified. Mica Splitter sections to include the possible villous tissue are submitted in A1?A3. Clinical history: Missed CPT Codes 53477 -------- -------- Specimen: [id number] Received: 10/26/23-1305 Status: MAIA Newell Num: [id number] Spec Type: Surgical Subm Dr: Scooby Vega Tissues: A Products of Conception - Spontaneous or Missed (POC) Procedures: HE/3, Gross/Micro L4 -------- Patient: Raphael Elizabeth [id number] (Continued) -------- Signed (signature on file) Dante Palacios MD 10/27/23 1511 Normal [facility] - Hematology and Cell countson 10-23-2023 Immature granulocytes/100 WBC (Bld) 0.2 % 0.0-0.5 [facility] Leukocytes [#/volume] correc leroy for nucleated erythrocytes in Blood by Automated counon 10-23-2023 WBC corrected for nucl RBC Auto (Bld) [#/Vol] 5.1 10 3/uL 4.0-11.0 [facility] Lymphocytes Auto (Bld) [#/Vo l]on 10-23-2023 Lymphocytes (Bld) [#/Vol] 1.7 10 3/uL 1.2-3.8 [facility] Lymphocytes/100 WBC Auto (Bl d)on 10-23-2023 Lymphocytes/100 WBC (Bld) 32.8 % 20.5-60.0 [facility] MCH Auto (RBC) [Entitic mass ]on 10-23-2023 MCH (RBC) [Entitic mass] 31.1 pg 26.7-34.0 [facility] MCHC Auto (RBC) [Mass/Vol]on 10-23-2023 MCHC (RBC) [Mass/Vol] 32.8 g/dL 29.9-35.2 [facility] MCV Auto (RBC) [Entitic vol] on 10-23-2023 MCV (RBC) [Entitic vol] 95.0 fL 81.0-99.0 [facility] Monocytes Auto (Bld) [#/Vol] on 10-23-2023 Monocytes (Bld) [#/Vol] 0.3 10 3/uL 0.3-0.8 [facility] Monocytes/100 WBC Auto (Bld) on 10-23-2023 Monocytes/100 WBC (Bld) 5.5 % 1.7-12.0 [facility] Neutrophils Auto (Bld) [#/Vo l]on 10-23-2023 Neutrophils (Bld) [#/Vol] 3.0 10 3/uL 1.4-6.5 [facility] Neutrophils/100 WBC Auto (Bl d)on 10-23-2023 Neutrophils/100 WBC (Bld) 59.3 % 43.0-75.0 [facility] No Panel Informationon 10-22 Eosinophils # (Auto) 0.1 10 3/uL 0.0-0.7 [facility] Immature Granulocyte # (Auto) 0.01 10 3/uL 0.00-0.03 [facility] Platelet mean volume Auto (B ld) [Entitic vol]on 10-23-2023 Platelet mean volume (Bld) [Entitic vol] 9.0 fL 9.5-13.5 [facility] Platelets Auto (Bld) [#/Vol] on 10-23-2023 Platelets (Bld) [#/Vol] 182 10 3/uL 150-450 [facility] RBC Auto (Bld) [#/Vol]on RBC (Bld) [#/Vol] 3.79 10 6/uL 4.20-5.40 [facility] No Panel Informationon 10-11 Human Chorionic Gonadotropin, Quant 16434 mIU/mL [facility] Comment on above: 5-50 0.2-1 AIHI79-75 0 1-2 TRFHI140-7,000 2-3 YVDEJ220-76,000 3-4 WEEKS1,000-50,000 4-5 WEEKS10,000-100,000 5-6 WEEKS15,000-200,000 6-8 WEEKS10,000-100,000 2-3 MONTHS No Panel Informationon 10-06 Human Chorionic Gonadotropin, Quant 66383 mIU/mL [facility] Comment on above: 5-50 0.2-1 RVAN61-10 0 1-2 TFNUQ505-1,000 2-3 IULKS885-26,000 3-4 WEEKS1,000-50,000 4-5 WEEKS10,000-100,000 5-6 WEEKS15,000-200,000 6-8 WEEKS10,000-100,000 2-3 MONTHS No Panel Informationon 10-04 Human Chorionic Gonadotropin, Quant 73148 mIU/mL [facility] Comment on above: 5-50 0.2-1 NVTE81-53 0 1-2 ZLYCW200-5,000 2-3 JIIMF814-07,000 3-4 WEEKS1,000-50,000 4-5 WEEKS10,000-100,000 5-6 WEEKS15,000-200,000 6-8 WEEKS10,000-100,000 2-3 MONTHS PAP ACOG PANEL 2: 30 to 65on 03-11-2022 . . Normal [facility] Comment on above: Result Comment: Perf ormed at: WB Performed By: #### [id number] #### [facility] [address] [address] [address] Danni Jacobs Age Gdln ACOG Testing 30-65 Normal [facility] Comment on above: Performed By: #### [id number] #### [facility] [address] [address] [address] Danni Jacobs DIAGNOSIS: Comment Normal [facility] Comment on above: Result Comment: NEGA TIVE FOR INTRAEPITHELIAL LESION OR MALIGNANCY. THIS SPECIMEN WAS RESCREENED PART OF OUR REPAIR ARMATURE WINDER HELPER PROGRAM. Performed at: WB Performed By: #### [id number] #### [facility] [address] [place] [address] Dr. Danni Jacobs HPV Aptima Negative Normal Negative [facility] Comment on above: Result Comment: This nucleic acid amplification test detects fourteen high-risk HPV types (16,18,31,33,35,39,45,51,52,56,58,59,66,68) without differentiation. Performed at: =G Performed By: #### [id number] #### [facility] [address] [place] [address] Dr. Danni Jacobs Methodology: Comment Normal [facility] Comment on above: Result Comment: This liquid based ThinPrep(R) pap test was screened with the use of an image guided system. Performed at: WB Performed By: #### [id number] #### [facility] [address] [place] [address] Dr. Danni Jacobs Note: Comment Normal [facility] Comment on above: Result Comment: The Pap smear is a screening test designed to aid in the detection of premalignant and malignant conditions of the uterine cervix. It is not a diagnostic procedure and should not be used as the sole means of detecting cervical cancer. Both false-positive and false-negative reports do occur. . Performed at: WB Performed By: #### [id number] #### [facility] [address] [place] [address] Dr. Danni Jacobs Performed by: Comment Normal [facility] Comment on above: Result Comment: Rocky Hull, Office Machine Technician (ASCP) Performed at: WB Performed By: #### [id number] #### [facility] [address] [place] [address] Dr. Danni Jacobs QC reviewed by: Comment Normal [facility] Comment on above: Result Comment: Betzaida Ge, Supervisory Office Machine Technician (ASCP) Performed at: WB Performed By: #### [id number] #### [facility] [address] [place] [address] Dr. Danni Jacobs Specimen adequacy: Comment Normal [facility] Comment on above: Result Comment: Sati sfactory for evaluation. Endocervical and/or squamous metaplastic cells (endocervical component) are present. Performed at: WB Performed By: #### [id number] #### [facility] [address] [address] [address] Danni Jacobs GLUCOSE BLOODon 04-22-2021 Glucose [Mass/Vol] 99 mg/dL Normal 74-106 [facility] Comment on above: Performed By: #### G YOSEPH, LIPID #### [facility] [address] [place] [address] Dr. Danni Jacobs LIPID PROFILEon 04-22-2021 CHOL-HDL RATIO NORM SEE BELOW Normal [facility] Comment on above: Result Comment: 3.3 - 4.4 LOW RISK 4.4 - 7.1 AVERAGE RISK 7.1 - 11.0 MODERATE RISK >11.0 HIGH RISK Performed By: #### G YOSEPH, LIPID #### [facility] [address] [place] [address] Dr. Danni Jacobs Cholesterol [Mass/Vol] 157 mg/dL Normal <=200 [facility] Comment on above: Performed By: #### G YOSEPH, LIPID #### [facility] [address] [place] [address] Dr. Danni Jacobs Cholesterol in HDL [Mass/Vol] 74 mg/dL Normal [facility] Comment on above: Performed By: #### G YOSEPH, LIPID #### [facility] [address] [address] [address] Danni Jacobs Cholesterol in LDL [Mass/Vol] 71.2 mg/dL Normal [facility] Comment on above: Performed By: #### G YOSEPH, LIPID #### [facility] [address] [place] [address] Dr. Danni Jacobs Cholesterol.total/C holesterol in HDL [Mass ratio] 2.1 {ratio} Normal [facility] Comment on above: Performed By: #### G YOSEPH, LIPID #### [facility] [address] [address] [address] Danni Jacobs HDL NORMAL > or = 60 mg/dl - LO W CARDIOVASCULAR RISK <40 mg/dl - HIGH CARDIOVASCULAR RISK Normal [facility] Comment on above: Performed By: #### G YOSEPH, LIPID #### [facility] [address] [address] [address] Danni Jacobs LDL CALC NORMAL SEE BELOW Normal [facility] Comment on above: Result Comment: <100 mg/dl OPTIMAL 100 - 129 mg/dl NEAR OR ABOVE OPTIMAL 130 - 159 mg/dl BORDERLINE HIGH 160 - 189 mg/dl HIGH >190 mg/dl VERY HIGH Performed By: #### G YOSEPH, LIPID #### [facility] [address] [address] [address] Danni Jacobs Triglyceride [Mass/Vol] 59 mg/dL Normal <=150 [facility] Comment on above: Performed By: #### G YOSEPH, LIPID #### [facility] [address] [address] [address] Danni Jacobs VLDL CALC 11.8 mg/dL Normal [facility] Comment on above: Performed By: #### G YOSEPH, LIPID #### [facility] [address] [address] [address] Danni Jacobs Vital Signs Date Time Vital Sign Value Performing Clinician Philippe mera 08-24-2024 13:51-0500 Body mass index (BMI) [Ratio] 24.18 kg/m2 Jigsaw24 DO Work Phone: [facility] 08-24-2024 13:51-0500 Body weight 70.03 kg Scooby Gary DO Work Phone: [facility] 08-24-2024 13:51-0500 Diastolic blood pressure 68 mm[Hg] Scooby Gary DO Work Phone: [facility] 08-24-2024 13:51-0500 Systolic blood pressure 112 mm[Hg] Scooby Gary DO Work Phone: [facility] 08-18-2024 09:28-0500 Body mass index (BMI) [Ratio] 23.62 kg/m2 Scooby Gary DO Work Phone: [facility] 08-18-2024 09:28-0500 Body weight 68.4 kg Scooby Gary DO Work Phone: [facility] 08-18-2024 09:28-0500 Diastolic blood pressure 72 mm[Hg] Scooby Gary DO Work Phone: [facility] 08-18-2024 09:28-0500 Systolic blood pressure 110 mm[Hg] Scooby Gary DO Work Phone: [facility] 08-01-2024 13:55-0500 Body mass index (BMI) [Ratio] 22.87 kg/m2 Scooby Gary DO Work Phone: [facility] 08-01-2024 13:55-0500 Body weight 66.22 kg Scooby Gary DO Work Phone: [facility] 08-01-2024 13:55-0500 Diastolic blood pressure 74 mm[Hg] Scooby Gary DO Work Phone: [facility] 08-01-2024 13:55-0500 Systolic blood pressure 116 mm[Hg] Scooby Gary DO Work Phone: [facility] 07-18-2024 15:05-0500 Body mass index (BMI) [Ratio] 22.84 kg/m2 Scooby Gary DO Work Phone: [facility] 07-18-2024 15:05-0500 Body weight 66.13 kg Scooby Gary DO Work Phone: [facility] 07-18-2024 15:05-0500 Diastolic blood pressure 70 mm[Hg] Scooby Gary DO Work Phone: [facility] 07-18-2024 15:05-0500 Systolic blood pressure 118 mm[Hg] Scooby Gary DO Work Phone: [facility] 06-30-2024 12:01-0500 Body mass index (BMI) [Ratio] 22.26 kg/m2 Scooby Gary DO Work Phone: [facility] 06-30-2024 12:01-0500 Body weight 64.47 kg Scooby Gary DO Work Phone: [facility] 06-30-2024 12:01-0500 Diastolic blood pressure 70 mm[Hg] Scooby Gary DO Work Phone: [facility] 06-30-2024 12:01-0500 Systolic blood pressure 110 mm[Hg] Scooby Gary DO Work Phone: [facility] 06-02-2024 10:45-0500 Body mass index (BMI) [Ratio] 21.9 kg/m2 Scooby Gary DO Work Phone: [facility] 06-02-2024 10:45-0500 Body weight 63.41 kg Scooby Gary DO Work Phone: [facility] 06-02-2024 10:45-0500 Diastolic blood pressure 72 mm[Hg] Scooby Gary DO Work Phone: [facility] 06-02-2024 10:45-0500 Systolic blood pressure 116 mm[Hg] Scooby Gary DO Work Phone: [facility] 05-02-2024 16:20-0500 Body mass index (BMI) [Ratio] 21.61 kg/m2 Emely COBB Work Phone: [facility] 05-02-2024 16:20-0500 Body weight 62.6 kg Emely COBB Work Phone: [facility] 05-02-2024 16:20-0500 Diastolic blood pressure 68 mm[Hg] Emely COBB Work Phone: [facility] 05-02-2024 16:20-0500 Systolic blood pressure 120 mm[Hg] Emely COBB Work Phone: [facility] 04-29-2024 11:40-0500 Body weight Jen Granados MD Work Phone: [facility] 04-04-2024 14:55-0400 Body mass index (BMI) [Ratio] 21.27 kg/m2 Scooby Gary DO Work Phone: [facility] 04-04-2024 14:55-0400 Body weight 61.6 kg Scooby Gary DO Work Phone: [facility] 04-04-2024 14:55-0400 Diastolic blood pressure 70 mm[Hg] Scooby Gary DO Work Phone: [facility] 04-04-2024 14:55-0400 Systolic blood pressure 116 mm[Hg] Scooby Gary DO Work Phone: [facility] 03-07-2024 10:47-0400 Body mass index (BMI) [Ratio] 20.07 kg/m2 Scooby Gary DO Work Phone: [facility] 03-07-2024 10:47-0400 Body weight 58.12 kg Scooby Gary DO Work Phone: [facility] 03-07-2024 10:47-0400 Diastolic blood pressure 68 mm[Hg] Scooby Gary DO Work Phone: [facility] 03-07-2024 10:47-0400 Systolic blood pressure 114 mm[Hg] Scooby Gary DO Work Phone: [facility] 12-01-2023 16:10-0400 Body height 170.18 cm Scooby Gary Work Phone: [facility] 12-01-2023 16:10-0400 Body mass index (BMI) [Ratio] 19.5 kg/m2 Scooby Gary Work Phone: [facility] 12-01-2023 16:10-0400 Body weight 56.69 kg Scooby Gary Work Phone: [facility] 12-01-2023 16:10-0400 Diastolic blood pressure 78 mm[Hg] Scooby Gary Work Phone: [facility] 12-01-2023 16:10-0400 Systolic blood pressure 112 mm[Hg] Scooby Gary Work Phone: [facility] Encounters Encounter Date Encounter Type Care Provider [...] 06-25-2024 ambulatory Jen Granados MD Work Phone: [facility] Work Phone: Start: 06-25-2024 End: 06-25-2024 Departed Referred Jen Granados MD Work Phone: [facility] Start: 06-25-2024 Non-patient / Non-visit Jen Granados MD Work Phone: [facility] Work Phone: Start: 06-02-2024 End: 06-02-2024 Bamboo flowsheet Scooby Gary DO Work Phone: [facility] Start: 06-02-2024 End: 06-02-2024 Bamboo flowsheet Scooby Gary DO Work Phone: [facility] Start: 06-02-2024 End: 06-02-2024 ambulatory SCOOBY GARY Not Available Start: 06-02-2024 End: 06-02-2024 flow sheet Scooby Gary DO Work Phone: [facility] Comment on above: Second trimester pre gnancy; 23 weeks gestation of ; with normal glucose tolerance test (GTT); Diabetes mellitus screening; Gestational diabetes mellitus (GDM), antepartum, gestational diabetes method of control unspecified; Elevated glucose tolerance test Start: 05-02-2024 Non-patient / Non-visit Jen Granados MD Work Phone: [facility] Physician [facility] Work Phone: Start: 05-02-2024 End: 05-02-2024 ambulatory EMELY HUNTER Not Available Start: 05-02-2024 End: 05-02-2024 Patient encounter procedure Emely COBB Work Phone: [facility] Healthcare Work Phone: Start: 05-02-2024 End: 05-02-2024 flow sheet Emely COBB Work Phone: [facility] Comment on above: Well woman exam with routine gynecological exam; Second trimester ; 19 weeks gestation of ; Vaginal discharge; STD exposure; Screening, , for anatomic survey Start: 05-02-2024 End: 05-02-2024 Bamboo flowsheet Emely COBB Work Phone: [facility] Start: 05-02-2024 End: 05-10-2024 Bamboo flowsheet Emely COBB Work Phone: [facility] Start: 05-02-2024 End: 05-10-2024 Clinisync [...] / Non-visit Jen Granados MD Work Phone: [facility] Work Phone: Start: 04-04-2024 [...] [facility] Start: 04-04-2024 End: 04-04-2024 ambulatory [facility] Start: 04-01-2024 End: 04-01-2024 Bamboo [...] PT Start: 03-03-2024 End: 03-03-2024 Bamboo flowsheet Grtechen Moreno PT [facility] Start: 03-03-2024 [...] [facility] Start: 02-08-2024 End: 02-08-2024 [facility] Start: 02-08-2024 ambulatory [facility] Start: 12-01-2023 End: 12-01-2023 ambulatory Scooby Gary Work Phone: [facility] Work Phone: Start: 12-01-2023 End: 12-01-2023 Patient encounter procedure Scooby Gary Work Phone: [facility] Physician [facility] Work Phone: Start: 11-30-2023 Non-patient / Non-visit Scooby Gary Work Phone: [facility] Work Phone: Start: 11-23-2023 Non-patient / Non-visit Scooby Gary Work Phone: [facility] Work Phone: Start: 11-17-2023 Non-patient / Non-visit Scooby Gary Work Phone: [facility] Work Phone: Start: 11-09-2023 Non-patient / Non-visit Scooby Gary Work Phone: [facility] Work Phone: Start: 11-09-2023 End: 11-09-2023 ambulatory EMELY HUNTER Not Available Start: 10-23-2023 End: 10-23-2023 ambulatory Scooby Gary [facility] Work Phone: Start: 10-23-2023 End: 10-23-2023 Departed Referred Scooby Gary Work Phone: [facility] Start: 10-23-2023 Non-patient / Non-visit Scooby Gary Work Phone: [facility] Work Phone: Start: 10-12-2023 Non-patient / Non-visit Scooby Gary Work Phone: [facility] Physician [facility] Work Phone: Start: 10-07-2023 Non-patient / Non-visit Scooby Gary Work Phone: [facility] Work Phone: Start: 10-05-2023 Non-patient / Non-visit Scooby Gary Work Phone: [facility] Work Phone: Start: 03-03-2022 End: 03-03-[address] SCOOBY VEGA Facility:[facility] Start: 04-28-2021 Encounter for genera l adult medical examination without abnormal findings DR DALTON LOGAN [facility] Start: 04-22-2021 End: 04-23-2021 ambulatory [...] Follow-up visit Follow-up [facility] Start: 02-26-2024 [employer] BOX TEST SENT OUT C orey Gary DO Work Phone: Start: 02-16-2024 ALL CBC WITH AUTO DIFF Scooby Gary DO Work Phone: Start: 02-12-2024 End: 02-12-2024 Urnls dip stick/tablet rgnt non-auto w/o micrscp Scooby Gary DO Work Phone: Plan of Treatment Date Care Activity Detail Author Start: 09-12-2024 End: 09-12-2024 Patient encounter procedure 09/12/2024 9:00 AM EDT Routine [facility] [address] [place] [address] Scooby Vega, DO [address] [place], [place] [address] [address] [facility] Start: 09-05-2024 End: 09-05-2024 Patient encounter procedure 09/05/2024 1:30 PM EDT Routine [facility] [address] [facility] [place] [phone] Scooby Vega, DO [address] [place] [address] [place] [address] [facility] Start: 08-24-2024 End: 08-24-2025 CULTURE, GROUP B STREP WITH SUSCEPTIBLITY CULTURE, GROUP B STREP WITH SUSCEPTIBLITY Lab Routine Third trimester Expected: 08/24/2024, Expires: 08/24/2025 [facility] Work Phone: Comment on above: Expected: 08/24/2024 , Expires: 08/24/2025 Start: 08-24-2024 End: 08-24-2024 Patient encounter procedure 08/24/2024 1:20 PM EST Routine [facility] [address] [facility] [place] [phone] Scooby Vega, [address] [place] [address] [facility] Start: 08-18-2024 End: 08-18-2025 US for US OB follow up transabdominal approach Imaging Routine Multigravida of advanced maternal age in third trimester Expected: 08/18/2024, Expires: 08/18/2025 [facility] Work Phone: Comment on above: Expected: 08/18/2024 , Expires: 08/18/2025 Start: 08-18-2024 End: 08-18-2024 Patient encounter procedure 08/18/2024 9:20 AM EST Routine [facility] [address] [facility] [place] [phone] Scooby Vega, DO [address] [place] [address] [facility] Start: 08-01-2024 End: 08-01-2024 Patient encounter procedure 08/01/2024 1:20 PM EST Routine [facility] [address] [place] [address] Scooby Vega, DO [address] [place] [address] [facility] Start: 07-18-2024 End: 07-18-2024 Patient encounter procedure 07/18/2024 2:30 PM EST Routine [facility] [address] [place] [address] Scooby Vega, DO [address] [place] [address] [facility] Start: 07-18-2024 End: 07-18-2025 US biophysical profile w non stress test US biophysical profile w non stress test Imaging Routine 30 weeks gestation of Third trimester Expected: 07/18/2024 (Approximate), Expires: 07/18/2025 [facility] Work Phone: Comment on above: Expected: 07/18/2024 (Approximate), Expires: 07/18/2025 Start: 06-30-2024 End: 06-30-2025 US biophysical profile w non stress test US biophysical profile w non stress test Imaging Routine Gestational diabetes mellitus (GDM), antepartum, gestational diabetes method of control unspecified Expected: 06/30/2024 (Approximate), Expires: 06/30/2025 [facility] Healthcare Comment on above: Expected: 06/30/2024 (Approximate), Expires: 06/30/2025 Start: 06-30-2024 End: 06-30-2025 US for US OB follow up transabdominal approach Imaging Routine Gestational diabetes mellitus (GDM), antepartum, gestational diabetes method of control unspecified Expected: 06/30/2024, Expires: 06/30/2025 [facility] Work Phone: Comment on above: Expected: 06/30/2024 , Expires: 06/30/2025 Start: 06-30-2024 End: 06-30-2024 Patient encounter procedure 06/30/2024 11:50 AM EST Routine [facility] [address] [place] [phone] Scooby Vega, [address] [place] [address] [facility] Start: 06-25-2024 Urine culture [facility] Start: 06-25-2024 Bacteria identified in Urine by Culture Urine Culture [facility] Start: 06-02-2024 End: 06-02-2025 CBC panel - Blood by Automated count CBC Lab Routine Diabetes mellitus screening Expected: 06/02/2024 (Approximate), Expires: 06/02/2025 [facility] Work Phone: Comment on above: Expected: 06/02/2024 (Approximate), Expires: 06/02/2025 Start: 06-02-2024 End: 06-02-2025 Measurement of glucose 1 hour after glucose challenge for glucose tolerance test Glucose tolerance, 1 hour Lab Routine Diabetes mellitus screening Expected: 06/02/2024 (Approximate), Expires: 06/02/2025 [facility] Comment on above: Expected: 06/02/2024 (Approximate), Expires: 06/02/2025 Start: 06-02-2024 End: 06-02-2024 Patient encounter procedure 06/02/2024 10:10 AM EST Routine [facility] [address] [place] [phone] Scooby Vega, DO [address] [place], [place] [address] [address] [facility] Start: 05-02-2024 End: 05-02-2024 Patient encounter procedure 05/02/2024 3:30 PM EST Routine [facility] [address] [place] [address] Emely Hunter PA [address] [place] [address] [facility] Start: 05-02-2024 End: 10-30-2024 [...] EST Office Visit [facility] [address] [place] [address] Scooby Vega DO [address] [place] [address] [facility] Start: 04-04-2024 End: 04-04-2024 [...] Treatment [facility] [address] [facility] [address] [place] [address] Gretchen Moreno, PT [facility] Start: 03-23-2024 End: 03-23-2024 ambulatory 03/23/2024 1:00 PM EDT Treatment [facility] [address] [facility] [address] [place] [address] Gretchen Moreno, PT [facility] Start: 03-18-2024 End: 03-18-2024 ambulatory 03/18/2024 1:30 PM EDT Treatment [facility] [address] [facility] [address] [place] [address] Gretchen Moreno, PT [facility] Start: 03-11-2024 End: 03-11-2024 ambulatory 03/11/2024 1:30 PM EDT Treatment [facility] [address] [facility] [address] [place] [address] Gretchen Moreno, PT [facility] Start: 03-07-2024 End: 03-07-2024 Patient encounter procedure 03/07/2024 10:10 AM EDT Routine [facility] [address] [place] [phone] Scooby Vega, [address] [facility] [place] [address] [facility] Start: 03-03-2024 End: 03-03-2024 ambulatory 03/03/2024 10:30 AM EDT Treatment [facility] [address] [facility] [address] [place] [address] Gretchen Moreno, PT [facility] Start: 02-26-2024 End: 02-26-2024 ambulatory 02/26/2024 1:30 PM EDT Treatment [facility] [address] [facility] [address] [place] [address] Gretchen Moreno, PT Arrived [facility] Comment on above: Arrived Start: 02-25-2024 End: 02-25-2024 ambulatory 02/25/2024 10:30 AM EDT Treatment [facility] [address] [facility] [address] [place] [address] Gretchen Moreno, PT [facility] Start: 02-17-2024 End: 02-17-2024 ambulatory 02/17/2024 12:00 PM EDT Treatment [facility] [address] [facility] [address] [place] [address] Gretchen Moreno, PT [facility] Start: [...] AM EDT Initial [facility] [address] [facility] [place] [address] [facility] Start: 02-12-2024 End: 02-12-2024 Professional / ancillary services management 02/12/2024 10:00 AM EDT Ancillary Procedure [facility] [address] [facility] [place] [address] [facility] Start: 02-10-2024 End: 02-10-2024 ambulatory 02/10/2024 5:00 PM EDT Evaluation [facility] [address] [facility] [address] [place] [address] Gretchen Moreno, PT Arrived [facility] Comment on above: Arrived Bacteria identified in Urine by Culture Urine culture Microbiology Routine Missed menses Ordered: 02/12/2024 [facility] Comment on above: Ordered: 02/12/2024 CBC W Auto Different ial panel - Blood CBC and differential Lab Routine Missed menses Ordered: 02/12/2024 [facility] Comment on above: Ordered: 02/12/2024 CHLAMYDIA TRACHOMATI S (GENITO/STI) CHLAMYDIA TRACHOMATIS (GENITO/STI) Lab Routine STD exposure Ordered: 05/02/2024 [facility] Comment on above: Ordered: 05/02/2024 Cytology Cervical or vaginal smear or scraping study Pap Smear Pathology and Cytology Routine Well woman exam with routine gynecological exam Ordered: 05/02/2024 [facility] Comment on above: Ordered: 05/02/2024 Hemoglobin A1c/Hemoglobin.total in Blood Hemoglobin A1c Lab Routine Missed menses Ordered: 02/12/2024 [facility] Comment on above: Ordered: 02/12/2024 Hepatitis B virus surface Ag [Presence] in Serum or Plasma by Immunoassay Hepatitis B surface antigen Lab Routine Missed menses Ordered: 02/12/2024 [facility] Comment on above: Ordered: 02/12/2024 Hepatitis C virus Ab [Presence] in Serum or Plasma by Immunoassay Hepatitis C antibody Lab Routine Missed menses Ordered: 02/12/2024 [facility] Comment on above: Ordered: 02/12/2024 HIV-1/HIV-2 antigen/antibody combination immunoassay HIV-1 and HIV-2 antibodies Lab Routine Missed menses Ordered: 02/12/2024 [facility] Comment on above: Ordered: 02/12/2024 Human papilloma viru s DNA [Presence] in Unspecified specimen by Probe with amplification HPV DNA probe, amplified Microbiology Routine Well woman exam with routine gynecological exam Ordered: 05/02/2024 [facility] Comment on above: Ordered: 05/02/2024 Neisseria gonorrhoea e DNA [Presence] in Unspecified specimen by JUAN ANTONIO with probe detection Neisseria gonorrhea DNA probe, direct Lab Routine STD exposure Ordered: 05/02/2024 [facility] Comment on above: Ordered: 05/02/2024 Reagin Ab [Presence] in Serum by RPR RPR Lab Routine Missed menses Ordered: 02/12/2024 [facility] Comment on above: Ordered: 02/12/2024 Rubella antibody, IgG Rubella an tibody, IgG Lab Routine Missed menses Ordered: 02/12/2024 [facility] Comment on above: Ordered: 02/12/2024 SURESWAB(R) ADVANCED VAGINITIS PLUS, TMA SURESWAB(R) ADVANCED VAGINITIS PLUS, TMA Pathology and Cytology Routine Vaginal discharge Ordered: 05/02/2024 [facility] Work Phone: Comment on above: Ordered: 05/02/2024 XR Hip - left 2 Views [facility] Payers Date Payer Category Payer Private Health Insurance ESTELA Decker [id number] 2022 Unknown NILAM Decker [place] [id number] 2022-Present [phone] [address] [place] [address] [id number] 1987 Unknown [id number] 2.16.840.1.394140.3.579.2 .593 1987 Unknown [id number] 2.16.840.1.877909.3.579.2 .593 1987 Unknown [id number] 2.16.840.1.662664.3.579.2 .6 1987 Unknown [id number] 2.16.840.1.534257.3.579.2 .1285 1987 Unknown [id number] 2.16.840.1.490253.3.579.2 .1285 1987 Unknown [id number] 2.16840.1.438244.3.579.2 .1258 1987 Unknown [id number] 2.840.1.227641.3.579.2 .1258 1987 Unknown [id number] 2.840.1.429705.3.579.2 .1258 1987 Unknown [id number] 2.840.1.645486.3.579.2 .1258 1987 Unknown [id number] 2.840.1.675355.3.579.2 .1258 1987 Unknown [id number] 2.840.1.162094.3.579.2 .1258 1987 Unknown [id number] 2.840.1.043833.3.579.2 .1258 1987 Unknown [id number] 2.840.1.949064.3.579.2 .1258 1987 Unknown [id number] 2.16840.1.404305.3.579.2 .1258 1987 Unknown [id number] 2.16840.1.199256.3.579.2 .1258 1987 Unknown [id number] 2.16840.1.341918.3.579.2 .1258 1987 Unknown [id number] 2.16840.1.694411.3.579.2 .1259 1987 Unknown [id number] 2.16.840.1.740335.3.579.2 .9 1987 Unknown [id number] 2.16.840.1.359606.3.579.2 .9 1987 Unknown [id number] 2.16.840.1.974346.3.579.2 .1258 1987 Unknown [id number] 2.16.840.1.918582.3.579.2 .9 1987 Unknown [id number] 2.16.840.1.985535.3.579.2 .1258 1987 Unknown [id number] 2.16.840.1.858636.3.579.2 .9 1987 Unknown [id number] 2.16.840.1.998873.3.579.2 .9 1959 Unknown [id number] Social History Date Type Detail Facility [facility] if [facility] Work Phone: Start: 1985 Sex Assigned At Female F [facility] Start: 02-26-2023 Tobacco [facility] tobacco [facility] Start: 11-09-2023 History of Social function [facility] Start: 11-09-2023 Tobacco use panel [facility] Start: 01-01-2024 [facility] Start: 1985 Sex assigned at Not on file [facility] Tobacco smoking stat [facility] Unknown if ever smoked [facility] Work Phone: Start: 06-27-2024 Sex Female (finding) [facility] Medical Equipment Procedure Code Equipment Code Equipment Origin al Text Equipment Identifier Dates 1 strip by In Vi tro route Daily Use in the morning prior to breakfast, 1 hour after each meal for a total of 4times daily. [id number] Start: 06-02-2024 End: 07-02-2024 1 each by In Vit ro route Daily Use to check FSBS four times daily [id number] Start: 06-02-2024 End: 07-02-2024 Goals Date Patient Goal Desired Activity /State Personal health goal Clinical Notes 02-10-2024 to 08-24-2024 Belle Villanueva, DIMENSIONAL ENGINEER - 08/24/2024 1:20 PM ESTSusan Spitler, DIMENSIONAL ENGINEER - 08/18/2024 9:20 AM ESTSusan Spitler, DIMENSIONAL ENGINEER - 08/01/2024 1:20 PM ESTSusan Spitler, DIMENSIONAL ENGINEER - 07/18/2024 2:30 PM EST Note Date [...] nursing note reviewed. Exam conducted with a security monitor present. Vitals: Estimated body mass index is [...] Scooby Vega DO documented in this encounter [facility] 08-18-2024 History of Present illness Narrative Reason [...] nursing note reviewed. Exam conducted with a security monitor present. Vitals: Estimated body mass index is [...] Scooby Vega DO documented in this encounter [facility] 08-01-2024 History of Present illness Narrative Reason [...] 81 mg, Daily Blood Glucose Monitoring Suppl (Agentek Glucometer) w/Device kit 1 kit, Does not [...] nursing note reviewed. Exam conducted with a security monitor present. Vitals: Estimated body mass index is [...] Scooby Vega DO documented in this encounter [facility] 07-18-2024 History of Present illness Narrative Reason [...] nursing note reviewed. Exam conducted with a security monitor present. Vitals: Estimated body mass index is [...] of:Emely Hunter PA-C documented in this encounter [facility] 06-30-2024 History of Present illness Narrative Reason [...] 81 mg, Daily Blood Glucose Monitoring Suppl (Agentek Glucometer) w/Device kit 1 kit, Does not [...] Scooby Vega DO documented in this encounter [facility] 06-02-2024 History of Present illness Narrative [...] nursing note reviewed. Exam conducted with a security monitor present. Vitals: Estimated body mass index is [...] Scooby Vega DO documented in this encounter [facility] 05-02-2024 History of Present illness Narrative Reason [...] nursing note reviewed. Exam conducted with a security monitor present. Vitals: Estimated body mass index is [...] obtained without difficulty and patient was given [facility] order to have obtained. Orders Placed [...] of: JORDYN Fonseca documented in this encounter [facility] 04-04-2024 History of Present illness Narrative Reason [...] nursing note reviewed. Exam conducted with a security monitor present. Vitals: Estimated body mass index is [...] Aspirin. Discussed again in regards to seeing [facility] & referral will be completed. Patient to have NST/BPP starting at 32 weeks gestation. Patient will have Anatomy Scan done at [facility]. Patient is Rh Negative and will [...] Scooby Vega DO documented in this encounter [facility] 04-01-2024 History of Present illness Narrative Physical [...] and it pops a lot randomly. Precautions: Keller Subjective: Pt states overall, ROM has improved. [...] to be instructed in home exercise program. [employer] Observer Goals: To be met in 10 weeks [...] sign below. Date: documented in this encounter [facility] 03-23-2024 History of Present illness Narrative Physical [...] and it pops a lot randomly. Precautions: [place] Subjective: Pt states range of motion of [...] to be instructed in home exercise program. Retirement Goals: To be met in 10 weeks [...] sign below. Date: documented in this encounter [facility] 03-18-2024 History of Present illness Narrative Physical [...] and it pops a lot randomly. Precautions: Keller Subjective: Pt states she feels like her [...] to be instructed in home exercise program. Retirement Goals: To be met in 10 weeks [...] sign below. Date: documented in this encounter [facility] 03-11-2024 History of Present illness Narrative Physical [...] and it pops a lot randomly. Precautions: [place] Subjective: Pt states overall she believes hip [...] to be instructed in home exercise program. [employer] Observer Goals: To be met in 10 weeks [...] sign below. Date: documented in this encounter [facility] 03-07-2024 History of Present illness Narrative Reason [...] nursing note reviewed. Exam conducted with a security monitor present. Vitals: Estimated body mass index is [...] or undercooked meat, and stay away from [facility]. Patient has been consulted regarding any further do's and don'ts of . Patient voiced understanding and all questions and concerns were answered. Follow Up: Patient is to return in 4 weeks for routine OB appointment. Documented by Kalie Loera LPN on behalf of: Scooby Vega DO documented in this encounter [facility] 03-03-2024 History of Present illness Narrative Physical [...] and it pops a lot randomly. Precautions: [place] Subjective: Pt states she has been doing [...] to be instructed in home exercise program. [employer] Observer Goals: To be met in 10 weeks [...] sign below. Date: documented in this encounter [facility] 02-26-2024 History of Present illness Narrative Physical [...] and it pops a lot randomly. Precautions: [place] Subjective: Pt states she was able to [...] to be instructed in home exercise program. [employer] Observer Goals: To be met in 10 weeks [...] sign below. Date: documented in this encounter [facility] 02-17-2024 History of Present illness Narrative Physical [...] and it pops a lot randomly. Precautions: [place] Subjective: Pt states she has not done [...] to be instructed in home exercise program. [employer] Observer Goals: To be met in 10 weeks [...] sign below. Date: documented in this encounter [facility] 02-12-2024 History of Present illness Narrative Reason [...] or undercooked meat, and stay away from [facility]. Patient has also been advised to [...] Estee Cobb LPN documented in this encounter [facility] 02-10-2024 History of Present illness Narrative Physical [...] and it pops a lot randomly. Precautions: [place] Subjective: left hip ant and lateral Pain: [...] to be instructed in home exercise program. [employer] Observer Goals: To be met in 10 weeks [...] sign below. Date: documented in this encounter [facility] Healthcare Evaluation note No assessment inform ation available [facility] Work Phone: Evaluation note Diagnosis Onset Date Left hip pain acute [facility] Work Phone: Evaluation note* Diagnosis Pain of [...] CREATED AUTHOR AUTHOR'S ORGANIZ ATION 07/03/2024 [facility] DATE CREATED AUTHOR AUTHOR'S ORGANIZ ATION 08/26/2024 [facility] EPIC Care Teams (unrecognized [...] December 01, 2023 End: December 01, 2023 Cloth Designer Relationship Specialty Start Date End Date Jen Granados MD [address] [place] [facility] [place] [address] PCP - General Family Medicine 03/10/23 Cloth Designer Relationship Specialty Start Date End Date Jen Granados MD [address] [place] [facility] [address] PCP - General Family Medicine 03/10/23 Cloth Designer Relationship Specialty Start Date End Date Jen Granados MD [address] [place] [facility] [address] PCP - General Family Medicine 03/10/23 Cloth Designer Relationship Specialty Start Date End Date Jen Granados MD [address] [place] [facility] [address] PCP - General Family Medicine 03/10/23 Cloth Designer Relationship Specialty Start Date End Date Jen Granados MD [address] [place] [facility] [address] PCP - General Family Medicine 03/10/23 Cloth Designer Relationship Specialty Start Date End Date Jen Granados MD [address] [place] [facility] [address] PCP - General Family Medicine 03/10/23 Cloth Designer Relationship Specialty Start Date End Date Jen Granados MD [address] [place] [facility] [address] PCP - General Family Medicine 03/10/23 Cloth Designer Relationship Specialty Start Date End Date Jen Granados MD [address] [place] [address] PCP - General Family Medicine 03/10/23 Cloth Designer Relationship Specialty Start Date End Date Jen Granados MD [address] [place] [address] PCP - General Family Medicine 03/10/23 Cloth Designer Relationship Specialty Start Date End Date Jen Granados MD [address] [place] [address] PCP - General Family Medicine 03/10/23 Cloth Designer Relationship Specialty Start Date End Date Jen Granados MD [address] [place] [address] PCP - General Family Medicine 03/10/23 Cloth Designer Relationship Specialty Start Date End Date Jen Granados MD [address] [place] [address] PCP - General Family Medicine 03/10/23 Cloth Designer Relationship Specialty Start Date End Date Jen Granados MD [address] [place] [address] PCP - General Family Medicine 03/10/23 Cloth Designer Relationship Specialty Start Date End Date Jen Granados MD [address] [place] [address] PCP - General Family Medicine 03/10/23 Cloth Designer Relationship Specialty Start Date End Date Jen Granados MD [address] [place] [address] PCP - General Family Medicine 03/10/23 Team [...] June 25, 2024 End: June 25, 2024 Cloth Designer Relationship Specialty Start Date End Date Jen Granados MD [address] [place] [address] PCP - General Family Medicine 03/10/23 Cloth Designer Relationship Specialty Start Date End Date Jen Granados MD [address] [place] [address] PCP - General Family Medicine 03/10/23 Cloth Designer Relationship Specialty Start Date End Date Jen Granados MD [address] [place] [facility] [address] PCP - General Family Medicine 03/10/23 Cloth Designer Relationship Specialty Start Date End Date Jen Granados MD [address] [place] [address] PCP - General Family Medicine 03/10/23 Cloth Designer Relationship Specialty Start Date End Date Jen Granados MD [address] [place] [address] PCP - General Family Medicine 03/10/23 Cloth Designer Relationship Specialty Start Date End Date Jen Granados MD [address] [place] [address] PCP - General Family Medicine 03/10/23 Cloth Designer Relationship Specialty Start Date End Date Jen Granados MD [address] [place] [address] PCP - General Family Medicine 03/10/23 Goals [...] of left lower limb, excluding foot Procedures [place] PHYSICAL THERAPY EVALUATION LOW COMPLEX 20 MINS Ashley Rock MD [address] [place] [address] Gretchen Moreno PT Referral ID Status Reason Start Date Expiration Date V isits Requested Visits Authorized [id number] Authorized 02/10/2024 08/08/2024 99 99 Reason Comments [...] BE BASED ON THE PRIMARY CLINICAL RECORDS. [facility] [employer] [facility]. provides no warranty or guarantee of the accuracy or completeness of information in this document.
--- NOTE | 2024-09-02 19:11 | US_ITS ---
[place] [id number] Patient Name: RAPHAEL GAMA MRN: [id number] date: 1985 Sex: F Assigned Patient Location: [facility] Current Patient Location: Accession/Order Number: [id number] Exam Date: 09/02/2024 22:08 Report Date: 09/02/2024 22:10 At the request of: BEVERLY SAHA DO Procedure: US OB BPP w non-stress Ultrasound biophysical profile HISTORY: Gestational diabetes There is adequate breathing movement, gross body movement, tone and amniotic fluid volume for total score of 8 out of 8. Amniotic fluid index is 12.2 cm. The heart rate is 122 bpm. US/US OB BPP w non-stress IMPRESSION: Adequate ultrasound biophysical profile. Impression dictated by: Jae Fleming M.D.09/02/2024 10:10 PM Dictation Location: [place] [address] Electronically authenticated by: [id number] Y Date: 09/02/2024 22:10
[2024-09-02 19:49] VITALS: BP 122/77; PULSE 81
== END 2024-09-02 20:20 | disposition home or self-care (01) ==
LOC: US 19:08 → FBC 19:11
PROVIDERS: PCP Family Medicine; Visit Provider Obstetrics & Gynecology
DX: O24.419 Gestational diabetes mellitus in pregnancy, unspecified control (principal)
CPT/HCPCS: 76818

== ENCOUNTER 2024-09-06 18:08 | Outpatient (OUT) | payer OTHER, SELFPAY ==
--- OUTSIDE RECORDS SUMMARY | 2024-09-06 18:17 | XMS_ITS | CCD ---
Author Organization [facility] Care Team Providers Care Wellhead Pumper Name Role Phone DOREEN, DR HOFFMAN Attending Unavailable DARWIN, DR JEN Ramirez Primary Care Unavailable DOREEN, DR HOFFMAN Admitting Unavailable DOREEN, DR HOFFMAN Consulting Unavailable GARY, DR PAUL Admitting Unavailable GARY, DR PAUL Consulting Unavailable GARY, DR PUAL Attending Unavailable DARWIN, DR JEN Ramirez Primary [...] Attending Unavailable GARY, SCOOBY Attending Unavailable EMELY HUNETR Attending Unavailable MORENO, GRETCHEN Attending Unavailable ROCK, [...] Translations: [AMOXICILLIN] Drug Allergy 3 GI intolerance [facility] (3 sources) 12 Hour Decongestant Allergy to substance 3 Hives [facility] Medications Current Medications Medication Drug Class(es) Dates [...] ethyl esters (penitentiary) 1000 mg oral capsule (6 sources) take [...] UA Negative Negative - 4(70) +++ mg/dL [facility] Blood, UA Negative Negative - 50 Ulises/mcL [facility] Clarity, UA Clear [facility] Color, UA Yellow [facility] Glucose, UA Negative Negative - 2000(110) ++++ mg/dL [facility] Interpretation and review of laboratory results Abnormal [facility] Ketones, UA Negative Negative - 160(16) ++++ mg/dL [facility] Leukocytes, UA Trace Negative - 500+++ Clair/mcL [facility] Nitrite, UA Negative Negative - Positive [facility] pH, UA 7 5 - 9 [facility] Protein, UA Negative Negative - 2000(20) ++++ mg/dL [facility] Spec Grav, UA 1.015 1 - 1.03 [facility] Urobilinogen, UA 0.2 0.2 - 12 mg/dL [facility] US OB BPP W NON-STRESS on 08-20-2024 [place] [address] Ultrasound Report Signed Patient: RAPHAEL ELIZABETH MR#: [id number] : 1985 Acct:[id number] Age/Sex: 38 / F ADM Date: 08/19/24 Loc: US Attending Dr: Scooby Vega D.O. Ordering Physician: Scooby Vega D.O. Date of Service: 08/19/24 Procedure(s): US OB BPP w non-stress Accession Number(s): [id number] cc: Jen Granados M.D.; Scooby Vega D.O. [place] [id number] Patient Name: RAPHAEL ELIZABETH MRN: [id number]:[id number] date: 1985 Sex: F Assigned Patient Location: [facility] Current Patient Location: Accession/Order Number: [id number] Exam Date: 08/20/2024 08:58 Report Date: 08/20/2024 [...] Chan Hudson M.D.08/20/2024 9:03 AM Dictation Location: [place] [address] Electronically authenticated by: [id number] Y Date: 08/20/2024 09:03 Dictated By: Chan Hudson M.D. Signed By: 08/20/24904 DD/ 2 TD/TT: Pharm Spec: [facility] Radiology, Radiologdora guillen MD - 08/20/2024 [place] [address] Ultrasound Report Signed Patient: RAPHAEL ELIZABETH MR#: [id number] : 1985 Acct:[id number] Age/Sex: 38 / F ADM Date: 08/19/24 Loc: US Attending Dr: Scooby Vega D.O. Ordering Physician: Scooby Vega D.O. Date of Service: 08/19/24 Procedure(s): US OB BPP w non-stress Accession Number(s): [id number] cc: Jen Granados M.D.; Scooby Vega D.O. The [place] [id number] Patient Name: RAPHAEL ELIZABETH MRN: [facility]:[id number] date: 1985 Sex: F Assigned Patient Location: [facility] Current Patient Location: Accession/Order Number: [id number] Exam Date: 08/20/2024 08:58 Report Date: 08/20/2024 [...] Chan Hudson M.D.08/20/2024 9:03 AM Dictation Location: [place] [address] Electronically authenticated by: [id number] Y Date: 08/20/2024 09:03 Dictated By: Chan Hudson M.D. Signed By: 08/20/24904 DD/ 2 TD/TT: Pharm Spec: [facility] Radiology Study observation (narrative) [facility] US OB BPP W NON-STRESS Ordered By: Radiologist Radiology on 08-20-2024 [facility] Work Phone: Urinalysis macro (dipstick) panel (U)on 08-18-2024 Bilirubin, UA Negative Negative - 4(70) +++ mg/dL [facility] Blood, UA Negative Negative - 50 Ulises/mcL [facility] Clarity, UA Clear [facility] Color, UA Yellow [facility] Glucose, UA Negative Negative - 2000(110) ++++ mg/dL [facility] Interpretation and review of laboratory results Abnormal [facility] Ketones, UA Negative Negative - 160(16) ++++ mg/dL [facility] Leukocytes, UA Negative Negative - 500+++ Clair/mcL [facility] Nitrite, UA Negative Negative - Positive [facility] pH, UA 7 5 - 9 [facility] Protein, UA Trace Negative - 2000(20) ++++ mg/dL [facility] Spec Grav, UA 1.025 1 - 1.03 [facility] Urobilinogen, UA 0.2 0.2 - 12 mg/dL [facility] US OB BPP W NON-STRESS on 08-12-[address] [address] Ultrasound Report Signed Patient: RAPHAEL ELIZABETH MR#: [id number] : 1985 Acct:[id number] Age/Sex: 38 / F ADM Date: 08/12/24 Loc: US Attending Dr: Scooby Vega D.O. Ordering Physician: Scooby Vega D.O. Date of Service: 08/12/24 Procedure(s): US OB BPP w non-stress Accession Number(s): [id number] cc: Jen Granados M.D.; Scooby Vega D.O. The [address] [address] Patient Name: RAPHAEL ELIZABETH MRN: [facility]:[id number] date: 1985 Sex: F Assigned Patient Location: [facility] Current Patient Location: Accession/Order Number: [id number] Exam Date: 08/12/2024 22:10 Report Date: 08/12/2024 22:12 At the request of: SCOOBY VEGA DO Procedure: US OB BPP w non-stress Biophysical profile. Reason for exam: GBM. COMPARISON: Biophysical profile 08/06/2024. TECHNIQUE: Transabdominal imaging of the gravid uterus was obtained. 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 SIDDHARTHA is normal 11.2 cm. heart rate 142 bpm. US/US OB BPP w non-stress IMPRESSION: BPP 8 out of 8. Impression dictated by: Lucas Martin Jr., D.O.08/12/2024 10:12 PM Dictation Location: [place] [address] Electronically authenticated by: [id number] Y Date: 08/12/2024 22:12 Dictated By: Lucas Martin M.D. Signed By: 08/12/242213 DD/ 11 TD/TT: Pharm Spec: [facility] Radiology, Radiologdora guillen MD - 08/12/2024 [place] [address] Ultrasound Report Signed Patient: RAPHAEL ELIZABETH MR#: [id number] : 1985 Acct:[id number] Age/Sex: 38 / F ADM Date: 08/12/24 Loc: US Attending Dr: Scooby Vega D.O. Ordering Physician: Scooby Vega D.O. Date of Service: 08/12/24 Procedure(s): US OB BPP w non-stress Accession Number(s): [id number] cc: Jen Granados M.D.; Scooby Vega D.O. [place] [address] Patient Name: RAPHAEL ELIZABETH MRN: [id number]:[id number] date: 1985 Sex: F Assigned Patient Location: [facility] Current Patient Location: Accession/Order Number: [id number] Exam Date: 08/12/2024 22:10 Report Date: 08/12/2024 22:12 At the request of: SCOOBY VGEA DO Procedure: US OB BPP w non-stress Biophysical profile. Reason for exam: GBM. COMPARISON: Biophysical profile 08/06/2024. TECHNIQUE: Transabdominal imaging of the gravid uterus was obtained. 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 SIDDHARTHA is normal 11.2 cm. heart rate 142 bpm. US/US OB BPP w non-stress IMPRESSION: BPP 8 out of 8. Impression dictated by: Lucas Martin Jr., D.O.08/12/2024 10:12 PM Dictation Location: [place] [address] Electronically authenticated by: [id number] Y Date: 08/12/2024 22:12 Dictated By: Lucas Martin M.D. Signed By: 08/12/242213 DD/ 11 TD/TT: Pharm Spec: [facility] Radiology Study observation (narrative) [facility] US OB BPP W NON-STRESS Ordered By: Radiologist Radiology on 08-12-2024 [facility] Work Phone: US OB BPP W NON-STRESS on 08-06-[address] [address] Ultrasound Report Signed Patient: RAPHAEL ELIZABETH MR#: [id number] : 1985 Acct:[id number] Age/Sex: 38 / F ADM Date: 08/05/24 Loc: US Attending Dr: Scooby Vega D.O. Ordering Physician: Scooby Vega D.O. Date of Service: 08/05/24 Procedure(s): US OB BPP w non-stress Accession Number(s): [id number] cc: Jen Granados M.D.; Scooby Vega D.O. [place] [phone] Patient Name: RAPHAEL ELIZABETH MRN: [facility]:[id number] date: 1985 Sex: F Assigned Patient Location: [facility] Current Patient Location: Accession/Order Number: [id number] Exam Date: 08/05/2024 19:09 Report Date: 08/06/2024 [...] Signed By: 08/06/24 0753 DD/ 0751 TD/TT: Pharm Spec: [facility] Radiology, Radiologi MD wilmer - 08/06/2024 [place] [address] Ultrasound Report Signed Patient: RAPHAEL ELIZABETH MR#: [id number] : 1985 Acct:[id number] Age/Sex: 38 / F ADM Date: 08/05/24 Loc: US Attending Dr: Scooby Vega D.O. Ordering Physician: Scooby Vega D.O. Date of Service: 08/05/24 Procedure(s): US OB BPP w non-stress Accession Number(s): [id number] cc: Jen Granados M.D.; Scooby Vega D.O. The [place] [phone] Patient Name: RAPHAEL ELIZABETH MRN: [id number]:[id number] date: 1985 Sex: F Assigned Patient Location: [facility] Current Patient Location: Accession/Order Number: [id number] Exam Date: 08/05/2024 19:09 Report Date: 08/06/2024 [...] Signed By: 08/06/24 0753 DD/ 075 TD/TT: Pharm Spec: [facility] Radiology Study observation (narrative) [facility] US OB BPP W NON-STRESS Ordered By: Radiologist Radiology on 08-06-2024 [facility] Work Phone: US OB BPP W NON-STRESS on 08-01-2024 [place] [address] Ultrasound Report Signed Patient: RAPHAEL ELIZABETH MR#: [id number] : 1985 Acct:[id number] Age/Sex: 38 / F ADM Date: 07/29/24 Loc: US Attending Dr: Scooby Vega D.O. Ordering Physician: Scooby Vega D.O. Date of Service: 07/29/24 Procedure(s): US OB BPP w non-stress Accession Number(s): [id number] cc: Jen Granados M.D.; Scooby Vega D.O. [place] [phone] Patient Name: RAPHAEL ELIZABETH MRN: [facility]:[id number] date: 1985 Sex: F Assigned Patient Location: [facility] Current Patient Location: Accession/Order Number: [id number] Exam Date: 07/29/2024 19:04 Report Date: 08/01/2024 [...] M.D. Signed By: 08/01/24713 DD/ 0 TD/TT: Pharm Spec: [facility] Radiology, Radiologi MD wilmer - 08/01/2024 [place] [address] Ultrasound Report Signed Patient: RAPHAEL ELIZABETH MR#: [id number] : 1985 Acct:[id number] Age/Sex: 38 / F ADM Date: 07/29/24 Loc: US Attending Dr: Scooby Vega D.O. Ordering Physician: Scooby Vega D.O. Date of Service: 07/29/24 Procedure(s): US OB BPP w non-stress Accession Number(s): [id number] cc: Jen Granados M.D.; Scooby Vega D.O. The [place] [address] Patient Name: RAPHAEL ELIZABETH MRN: [id number] date: 1985 Sex: F Assigned Patient Location: [facility] Current Patient Location: Accession/Order Number: [id number] Exam Date: 07/29/2024 19:04 Report Date: 08/01/2024 [...] M.D. Signed By: 08/01/24713 DD/ 0 TD/TT: Pharm Spec: [facility] Radiology Study observation (narrative) [facility] US OB BPP W NON-STRESS Ordered By: Radiologist Radiology on 08-01-2024 [facility] Work Phone: Urinalysis macro (dipstick) panel (U)on 08-01-2024 Bilirubin, UA Negative Negative - 4(70) +++ mg/dL [facility] Blood, UA Negative Negative - 50 Ulises/mcL [facility] Clarity, UA Clear [facility] Color, UA Yellow [facility] Glucose, UA Negative Negative - 1999(110) ++++ mg/dL [facility] Interpretation and review of laboratory results Abnormal [facility] Ketones, UA Negative Negative - 160(16) ++++ mg/dL [facility] Leukocytes, UA Trace Negative - 500+++ Clair/mcL [facility] Nitrite, UA Negative Negative - Positive [facility] pH, UA 7.5 5 - 9 [facility] Protein, UA Negative Negative - 1999(20) ++++ mg/dL [facility] Spec Grav, UA 1.015 1 - 1.03 [facility] Urobilinogen, UA 0.2 0.2 - 12 mg/dL [facility] Urinalysis macro (dipstick) panel (U)on 07-18-2024 Bilirubin, UA Negative Negative - 4(70) +++ mg/dL [facility] Blood, UA Negative Negative - 50 Ulises/mcL [facility] Clarity, UA Clear [facility] Color, UA Yellow [facility] Glucose, UA Negative Negative - 1999(110) ++++ mg/dL [facility] Interpretation and review of laboratory results Normal [facility] Ketones, UA Negative Negative - 160(16) ++++ mg/dL [facility] Leukocytes, UA Negative Negative - 500+++ Clair/mcL [facility] Nitrite, UA Negative Negative - Positive [facility] pH, UA 7 5 - 9 [facility] Protein, UA Negative Negative - 1999(20) ++++ mg/dL [facility] Spec Grav, UA 1.025 1 - 1.03 [facility] Urobilinogen, UA 0.2 0.2 - 12 mg/dL [facility] ALL CBC WITH AUTO DIFFon BASOPHILS ABSOLUTE AUTO 0 [facility] Basophils/100 WBC (Bld) 0.2 % 0.2 - 2.0 % [facility] Eosinophils/100 WBC (Bld) 0.9 % 0.9 - 7.0 % [facility] Erythrocyte distribution width (RBC) [Ratio] 13 % 11.0 - 15.0 % [facility] Hematocrit (Bld) [Volume fraction] 32.2 % Low 36.0 - 48.0 % [facility] Hemoglobin (Bld) [Mass/Vol] 10.9 g/dL Low 12.0 - 16.0 g/dL [facility] IMMATURE GRANULOCYTES ABS AUTO 0.13 High [facility] Immature granulocytes/100 WBC (Bld) 1.4 % High 0.0 - 0.5 % [facility] Interpretation and review of laboratory results Abnormal [facility] LYMPHOCYTES ABSOLUTE AUTO 1.4 [facility] Lymphocytes/100 WBC (Bld) 15.4 % Low 20.5 - 60.0 % [facility] MCH (RBC) [Entitic mass] 32.7 pg 26.7 - 34.0 pg [facility] MCHC (RBC) [Mass/Vol] 33.9 g/dL 29.9 - 35.2 g/dL [facility] MCV (RBC) [Entitic vol] 96.7 fL 81.0 - 99.0 fL [facility] MONOCYTES ABSOLUTE AUTO 0.5 [facility] Monocytes/100 WBC (Bld) 4.8 % 1.7 - 12.0 % [facility] NEUTROPHILS ABSOLUTE AUTO 7.2 High [facility] Neutrophils/100 WBC (Bld) 77.3 % High 43.0 - 75.0 % [facility] Platelet mean volume (Bld) [Entitic vol] 9.2 fL Low 9.5 - 13.5 fL [facility] TBH EO # 0.1 [facility] TB PLT 229 [facility] RBC 3.33 Low [facility] WBC 9.3 [facility] Urinalysis macro (dipstick) panel (U)on 06-30-2024 Bilirubin, UA Negative Negative - 4(70) +++ mg/dL [facility] Blood, UA Negative Negative - 50 Ulises/mcL [facility] Clarity, UA Clear [facility] Color, UA Yellow [facility] Glucose, UA Negative Negative - 2000(110) ++++ mg/dL [facility] Interpretation and review of laboratory results Abnormal [facility] Ketones, UA Negative Negative - 160(16) ++++ mg/dL [facility] Leukocytes, UA Trace Negative - 500+++ Clair/mcL [facility] Nitrite, UA Negative Negative - Positive [facility] pH, UA 8.5 5 - 9 [facility] Protein, UA Positive Negative - 1999(20) ++++ mg/dL [facility] Comment on above: trace Spec Grav, UA 1.015 1 - 1.03 [facility] Urobilinogen, UA 0.2 0.2 - 12 mg/dL [facility] Basophils/100 WBC Manual cnt (Bld)on 06-25-2024 Basophils/100 WBC (Bld) Basophils/100 leukocytes in Blood by Manual count Low 0.2-2.0 [facility] Eosinophils/100 WBC Manual c nt (Bld)on 06-25-2024 Eosinophils/100 WBC (Bld) Eosinophils/100 leukocytes in Blood by Manual count 0.9-7.0 [facility] Erythrocyte distribution wid th Auto (RBC) [Ratio]on 06-25-2024 Erythrocyte distribution width (RBC) [Ratio] Erythrocyte distribution width [Ratio] by Automated count 11.0-15.0 [facility] Estimated glomerular filtrat ion rate (GFR) non- Americanon 06-25-2024 GFR/1.73 sq M.predicted among non-blacks MDRD (S/P/Bld) [Vol rate/Area] Estimated glomerular filtration rate (GFR) non- >=60 mL/min/1.73 m 2 [facility] Hematocrit Auto (Bld) [Volum e fraction]on 06-25-2024 Hematocrit (Bld) [Volume fraction] Hematocrit [Volume Fraction] of Blood by Automated count Low 36.0-48.0 [facility] Hemoglobin [Mass/volume] in Bloodon 06-25-2024 Hemoglobin (Bld) [Mass/Vol] Hemoglobin [Mass/volume] in Blood Low 12.0-16.0 [facility] Laboratory - Chemistry and C hemistry - challengeon 06-25-2024 Calcium [Mass/Vol] 8.2 mg/dL Low 8.5-10.1 [facility] Chloride [Moles/Vol] 99 mmol/L 98-107 [facility] CO2 [Moles/Vol] 21.2 mmol/L 21.0-32.0 [facility] Creatinine [Mass/Vol] 0.89 mg/dL 0.55-1.02 [facility] GFR/1.73 sq M.predicted MDRD (S/P/Bld) [Vol rate/Area] mL/min/{1.73_m2} >=60 mL/min/1.73 m 2 [facility] Glucose [Mass/Vol] 98 mg/dL 74-106 [facility] Potassium [Moles/Vol] 3.7 mmol/L 3.5-5.1 [facility] Sodium [Moles/Vol] 130 mmol/L Low 136-145 [facility] Urea nitrogen [Mass/Vol] 7.0 mg/dL 7.0-18.0 [facility] Urea nitrogen/Creatinine [Mass ratio] 7.9 mg/mg [facility] Bilirubin Ql (U) Negative NEGATIVE [facility] Glucose (U) [Mass/Vol] Negative NEGATIVE [facility] Ketones Ql (U) 15 mg/dL Abnormal NEGATIVE [facility] pH (U) 7.5 [pH] 5.0-9.0 [facility] Specific gravity (U) [Rel density] 1.015 1.005-1.025 [facility] Urobilinogen Qn (U) 1.0 {Ree'U}/dL 0.2-1.0 [facility] Laboratory - Hematology and Cell countson 06-25-2024 Band form neutrophils/100 WBC (Bld) 2.0 % 0-5 [facility] Lymphocytes/100 WBC (Bld) 2.0 % Low 20.5-60.0 [facility] Monocytes/100 WBC (Bld) 5.0 % 1.7-12.0 [facility] Laboratory - Microbiology an d Antimicrobial susceptibilityon 06-25-2024 SARS-CoV-2 (COVID-19) RNA JUAN ANTONIO+probe Ql (Unsp spec) Negative NEGATIVE [facility] Comment on above: This test has not [...] ationon 06-25-2024 Appearance (U) CLOUDY Abnormal CLEAR [facility] Color (U) DK YELLOW YELLOW [facility] Laboratory - Urinalysison Leukocyte esterase Test strip Ql (U) Negative NEGATIVE [facility] Nitrite Ql (U) Negative NEGATIVE [facility] Protein Ql (U) TRACE mg/dL NEG/TRACE [facility] Leukocytes [#/volume] correc leroy for nucleated erythrocytes in Blood by Automated counon 06-25-2024 WBC corrected for nucl RBC Auto (Bld) [#/Vol] Leukocytes [#/volume] corrected for nucleated erythrocytes in Blood by Automated coun 4.0-11.0 [facility] MCH Auto (RBC) [Entitic mass ]on 06-25-2024 MCH (RBC) [Entitic mass] MCH [Entitic mass] by Automated count 26.7-34.0 [facility] MCHC Auto (RBC) [Mass/Vol]on 06-25-2024 MCHC (RBC) [Mass/Vol] MCHC [Mass/volume] by Automated count 29.9-35.2 [facility] MCV Auto (RBC) [Entitic vol] on 06-25-2024 MCV (RBC) [Entitic vol] MCV [Entitic volume] by Automated count 81.0-99.0 [facility] No Panel Informationon 06-25 Absolute Basophils (Manual) 0.00 10 3/uL 0.00-0.10 [facility] Band Neutrophils # (Manual) 0.2 10 3/uL 0.0-0.3 [facility] Eosinophils # (Manual) 0.08 10 3/uL 0.00-0.70 [facility] Lymphocytes # (Manual) 0.16 10 3/uL Low 1.20-3.80 [facility] Monocytes # (Manual) 0.41 10 3/uL 0.30-0.80 [facility] Segmented Neutrophils # (Manual) 7.38 10 3/uL High 1.4-6.5 [facility] Urine Occult Blood Negative NEGATIVE [facility] Bedside Influenza Type A Antigen Positive Abnormal [facility] Comment on above: NOTE: Live attenuate d influenza vaccine viruses can cause apositive result for a rapid influenza diagnostic test ifadministered up to 7 days prior to rapid testing. Bedside Influenza Type B Antigen Negative [facility] Comment on above: Negative for Flu B p rotein antigen. Infection due to Flu Bcannot be ruled out. Flu B antigen in the sample may bebelow the detection limit of the test. Platelet mean volume Auto (B ld) [Entitic vol]on 06-25-2024 Platelet mean volume (Bld) [Entitic vol] Platelet mean volume [Entitic volume] in Blood by Automated count Low 9.5-13.5 [facility] Platelets Auto (Bld) [#/Vol] on 06-25-2024 Platelets (Bld) [#/Vol] Platelets [#/volume] in Blood by Automated count 150-450 [facility] RBC Auto (Bld) [#/Vol]on RBC (Bld) [#/Vol] Erythrocytes [#/volu me] in Blood by Automated count Low 4.20-5.40 [facility] Segmented neutrophils/100 WB C Manual cnt (Bld)on 06-25-2024 Segmented neutrophils/100 WBC (Bld) Manual blood segmented neutrophils/100 leukocytes High 43.0-75.0 [facility] Serum or plasma anion gap de terminationon 06-25-2024 Anion gap [Moles/Vol] Serum or plasma anion gap determination [facility] Urine Cultureon 06-25-2024 Bacteria identified Cx Nom (U) No Growth 2 Days PERFORMED BY: [facility] [address] [place] [address] PATHOLOGIST BUSINESS PROCESS ENGINEER DANTE PALACIOS M.D. Normal [facility] Comment on above: Performed By: #### C UU #### [facility] [address] IGP,APTIMA HPV,AGE GDLNon AGE GDLN ACOG TESTING Note . [facility] Comment on above: TESTS RESULT FLAG U NITS REF RANGE LAB Clinician Provided Cytology Information Source.............Cervix No. of containers..01 ThinPrep Vial Age Algo ACOG Annel... FLAG LEGEND: L-Low Normal,H-High Normal,LL-Alert Low,HH-Alert High <-Panic Low,>-Panic High,A-Abnormal,AA-Critical Abnormal Performed at: 01 = [address] [address] Kathryn Maldonado MD, HPV APTIMA Negative Negative [facility] Comment on above: This nucleic acid am plification test detects fourteen high- risk HPV types (16,18,31,33,35,39,45,51,52,56,58,59,66,68) without differentiation. Performed at: =[facility] [address] [id number] Automotive Quality Engineer: Kathryn Maldonado MD, Phone: [phone] Performed at: [address] [id number] Automotive Quality Engineer: Kathryn Maldonado MD, Phone: [phone] IGP, APTIMA HPV, RFX 16/18,45 Note . [facility] Comment on above: TESTS RESULT FLAG UN ITS REF RANGE LAB DIAGNOSIS: 02 NEGATIVE FOR INTRAEPITHELIAL LESION OR MALIGNANCY. Specimen adequacy: 02 Satisfactory for evaluation. Endocervical and/or squamous metaplastic cells (endocervical component) are present. Performed by: 02 Thao Shankar, [employer] Designer . 02 Note: Note 02 The Pap [...] High,A-Abnormal,AA-Critical Abnormal Performed at: 02 WB [facility] [address] [facility] [place] [address] Kathryn Maldonado MD, BRUSH-SPATULA CERVIX [facility] RECURRENT VAGINITIS (HTRX)on 11-14-2024 ATOPOBIUM VAGINAE 0 [facility] ATOPOBIUM VAGINAE Not detected [facility] BVAB 2,3 (BACTERIAL VAGINOSIS ASSOCIATED BACTERIA 2, 3); MOBILUNCUS SPP 0 [facility] BVAB 2,3 (BACTERIAL VAGINOSIS ASSOCIATED BACTERIA 2, 3); MOBILUNCUS SPP Not detected [facility] JED ALBICANS, PARAPSILOSIS, TROPICALIS 0 [facility] JED ALBICANS, PARAPSILOSIS, TROPICALIS Not detected [facility] JED GLABRATA 0 [facility] JED GLABRATA Not detected [facility] JED KRUSEI 0 [facility] JED KRUSEI Not detected [facility] CHLAMYDIA TRACHOMATIS 0 [facility] CHLAMYDIA TRACHOMATIS Not detected [facility] GARDNERELLA VAGINALIS 0 [facility] GARDNERELLA VAGINALIS Not detected [facility] MEGASPHAERA (TYPES 1, 2) 0 [facility] MEGASPHAERA (TYPES 1, 2) Not detected [facility] MYCOPLASMA GENITALIUM 0 [facility] MYCOPLASMA GENITALIUM Not detected [facility] NEISSERIA GONORRHOEAE 0 [facility] NEISSERIA GONORRHOEAE Not detected [facility] TRICHOMONAS VAGINALIS 0 [facility] TRICHOMONAS VAGINALIS Not detected [facility] Urinalysis macro (dipstick) panel (U)on 05-03-2024 Bilirubin, UA Negative Negative - 4(70) +++ mg/dL [facility] Blood, UA Negative Negative - 50 Ulises/mcL [facility] Clarity, UA Clear [facility] Color, UA Yellow [facility] Glucose, UA Negative Negative - 1999(110) ++++ mg/dL [facility] Interpretation and review of laboratory results Normal [facility] Ketones, UA Negative Negative - 160(16) ++++ mg/dL [facility] Leukocytes, UA Negative Negative - 500+++ Clair/mcL [facility] Nitrite, UA Negative Negative - Positive [facility] pH, UA 0.5 5 - 9 [facility] Protein, UA Negative Negative - 1999(20) ++++ mg/dL [facility] Spec Grav, UA 1.025 1 - 1.03 [facility] Urobilinogen, UA 1.0 0.2 - 12 mg/dL [facility] Human papilloma virus 16+18+ 31+33+35+39+45+51+52+56+58+59+66+68 DNA [Presence] in Denis 05-02-2024 HPV 16+18+31+33+35+39+4 5+51+52+56+58+59+66 +68 DNA Probe+sig amp Ql (Cvx) Human papilloma virus 16+18+31+33+35+39+45+51+52+5 6+58+59+66+68 DNA [Presence] in Cer Negative [facility] Comment on above: This nucleic acid am plification test detects fourteen high- risk HPV types (16,18,31,33,35,39,45,51,52,56,58,59,66,68)without differentiation.Performed at: =G - [facility] [address] [id number] Director: Kathryn Maldonado MD, Phone: [phone] at: - [facility] [address] [id number] Director: Kathryn Maldonado MD, Phone: [phone] No Panel Informationon 05-02 HPV High Risk Other Comment Note . [facility] Comment on above: TESTS RESULT FLAG UN ITS REF RANGE LAB JESE GNOSIS: 02 NEGATIVE FOR INTRAEPITHELIAL LESION OR MALIGNANCY.Specimen adequacy: 02 Satisfactory for evaluation. Endocervical and/or squamous metaplastic cells (endocervical component) are present.Performed by: 02 Thao Shankar, Ornamental Metalwork Designer. 02Note: Note 02 The Pap smear is [...] Low,>-Panic High,A-Abnormal,AA-Critical Abnormal --Performed at:02 WB [facility] [address] [address] [place] [address] Kathryn Maldonado MD, Reference Lab Test Patient Age Note . [facility] Comment on above: TESTS RESULT FLAG UN ITS REF RANGE LAB Clinician Provided Cytology Information Source.............Cervix No. of containers..01 ThinPrep VialAge Richie SANDERS Annel... 30 FLAG LEGEND: L-Low Normal,H-High Normal,LL-Alert Low,HH-Alert High <-Panic Low,>-Panic High,A-Abnormal,AA-Critical Abnormal --Performed at:01 =G [facility] [address] [place] [address] Kathryn Maldonado MD, AFP, SERUM, OPEN SPINA BIFID Aon 05-01-2024 AFP MOM 1.18 . [facility] AFP VALUE 61.8 ng/mL . [facility] COMMENT: Comment . [facility] Comment on above: Cydney Rodriguez , Ph.D., [facility] Director References: Available Upon Request. Multiples Of Median Cutoffs For AFP Elevations Chiang 2.5 Black 2.8 IDD 2.0 Twins 4.5 Abbreviation Definitions IDD - Insulin Dep Diabetes OSBR - Open Spina Bifida Risk For further inquiries contact [employer] at [phone]. This test was developed and its performance characteristics determined by [employer]. It has not been cleared or approved by the Food and Drug Administration. Performed at: [facility] [address] [place], [place] [id number] Automotive Quality Engineer: Marissa Kovacs [facility], Phone: [phone] GEST. AGE ON COLLECTION DATE 19.0 . weeks [facility] GESTAT. AGE BASED ON LMP . [facility] Comment on above: Recalculations are n ot recommended when gestational dating by LMP and ultrasound are within 10 days. INSULIN DEP DIABETES No . [facility] INTERPRETATION Comment . [facility] Comment on above: Interpretation: Scre [...] [age] [facility] MULTIPLE GESTATION No . [facility] OSBR RISK 1 IN 6916 . [facility] RACE . [facility] RESULTS Report . [facility] TEST RESULTS: Negative . [facility] WEIGHT 135 . lbs [facility] N N LMP [id number] 3 15 N 1 Y 135 N N N N N White/ [facility] Alpha-fetoprotein (AFP) paige urement (rsoughlt-xx-dyzoje)on 04-29-2024 AFP [MoM] Alpha-fetoprotein (A FP) measurement (nlqrtant-ds-xtmfow) . [facility] Assess gestational ageon Gestational age Assess gestational age . [facility] Estimation of maternal age-s pecific risk of Down syndrome birthon 04-29-2024 Age [Time] Estimation of matern al age-specific risk of Down syndrome . [facility] Insulin dependent diabetes m ellitus detectionon 04-29-2024 Insulin dependent diabetes mellitus Ql Insulin dependent diabetes mellitus detection . [facility] Interpretation of serum or p lasma second trimester quad maternal screen (narrative reon 04-29-2024 Second trimester quad maternal screen Darshan [Interp] Interpretation of serum or plasma second trimester quad maternal screen (narrative re . [facility] Comment on above: Interpretation: Scre en NegativeThis [...] 04-29 AFP Triple Screen Comment Comment . [facility] Comment on above: Cydney Rodriguez , Ph.D., DABCCDirectorReferences: Available Upon Request.Multiples Of Median Cutoffs For AFP ElevationsSingleton 2.5 Black 2.8IDD 2.0 Twins 4.5 Abbreviation DefinitionsIDD - Insulin Dep DiabetesOSBR - Open Spina Bifida RiskFor further inquiries contact [employer] at [phone].This test was developed and its performance characteristicsdetermined by [employer]. It has not been cleared or approvedby the Food and Drug Administration.Performed at: [facility] [id number] [place], [place] [id number] Director: Marissa Kovacs [facility], Phone: [phone] Alpha Fetoprotein Results Received Report . [facility] Gestational Age Calculation Method LMP . [facility] Comment on above: Recalculations are n ot recommended when gestational datingby LMP and ultrasound are within 10 days. Maternal Quad Test Risk 6916 . [facility] Maternal Race . [facility] Multiple No . Elsi [facility] Serum or plasma wlgcu-7-ylfj protein measurement (mass/volume)on 04-29-2024 AFP [Mass/Vol] Serum or plasma cicly-0-wuqzevmahrz measurement (mass/volume) . [facility] BOX TEST SENT OUTon BOX TEST SENT OUT Y [facility] UN[facility] ALL CBC WITH AUTO DIFFon BASOPHILS ABSOLUTE AUTO 0.0 [facility] Basophils/100 WBC (Bld) 0.5 % 0.2 - 2.0 % [facility] Eosinophils/100 WBC (Bld) 0.9 % 0.9 - 7.0 % [facility] Erythrocyte distribution width (RBC) [Ratio] 11.9 % 11.0 - 15.0 % [facility] Hematocrit (Bld) [Volume fraction] 37.3 % 36.0 - 48.0 % [facility] Hemoglobin (Bld) [Mass/Vol] 12.7 g/dL 12.0 - 16.0 g/dL [facility] IMMATURE GRANULOCYTES ABS AUTO 0.02 [facility] Immature granulocytes/100 WBC (Bld) 0.3 % 0.0 - 0.5 % [facility] Interpretation and review of laboratory results Abnormal [facility] LYMPHOCYTES ABSOLUTE AUTO 1.8 [facility] Lymphocytes/100 WBC (Bld) 27.4 % 20.5 - 60.0 % [facility] MCH (RBC) [Entitic mass] 32.2 pg 26.7 - 34.0 pg [facility] MCHC (RBC) [Mass/Vol] 34.0 g/dL 29.9 - 35.2 g/dL [facility] MCV (RBC) [Entitic vol] 94.4 fL 81.0 - 99.0 fL [facility] MONOCYTES ABSOLUTE AUTO 0.3 [facility] Monocytes/100 WBC (Bld) 5.1 % 1.7 - 12.0 % [facility] NEUTROPHILS ABSOLUTE AUTO 4.4 [facility] Neutrophils/100 WBC (Bld) 65.8 % 43.0 - 75.0 % [facility] Platelet mean volume (Bld) [Entitic vol] 9.4 fL Low 9.5 - 13.5 fL [facility] TB EO # 0.1 [facility] TB PLT [address] [facility] RBC 3.95 Low [facility] WBC 6.6 [facility] HCG ( test) Ql (U)o n 02-12-2024 Interpretation and review of laboratory results Abnormal [facility] Preg Test, Ur Positive [facility] Urinalysis macro (dipstick) panel (U)on 02-12-2024 Bilirubin, UA Negative Negative - 4(70) +++ mg/dL [facility] Blood, UA Negative Negative - 50 Ulises/mcL [facility] Clarity, UA Clear [facility] Color, UA Yellow [facility] Glucose, UA Negative Negative - 1999(110) ++++ mg/dL [facility] Interpretation and review of laboratory results Normal [facility] Ketones, UA Negative Negative - 160(16) ++++ mg/dL [facility] Leukocytes, UA Negative Negative - 500+++ Clair/mcL [facility] Nitrite, UA Negative Negative - Positive [facility] pH, UA 6.5 5 - 9 [facility] Protein, UA Negative Negative - 1999(20) ++++ mg/dL [facility] Spec Grav, UA 1.015 1 - 1.03 [facility] Urobilinogen, UA 1.0 0.2 - 12 mg/dL [facility] No Panel Informationon 11-29 Human Chorionic Gonadotropin, Quant 2 mIU/mL [facility] Comment on above: 5-50 0.2-1 ALCP41-24 0 1-2 VPFVW308-3,000 2-3 KEDRO461-76,000 3-4 WEEKS1,000-50,000 4-5 WEEKS10,000-100,000 5-6 WEEKS15,000-200,000 6-8 WEEKS10,000-100,000 2-3 MONTHS No Panel Informationon 11-22 Human Chorionic Gonadotropin, Quant 3 mIU/mL [facility] Comment on above: 5-50 0.2-1 VRMF04-62 0 1-2 COLDT369-3,000 2-3 UKETZ828-51,000 3-4 WEEKS1,000-50,000 4-5 WEEKS10,000-100,000 5-6 WEEKS15,000-200,000 6-8 WEEKS10,000-100,000 2-3 MONTHS No Panel Informationon 11-16 Human Chorionic Gonadotropin, Quant 6 mIU/mL [facility] Comment on above: 5-50 0.2-1 ZRKP37-35 0 1-2 TZMIG097-6,000 2-3 OCSCZ095-62,000 3-4 WEEKS1,000-50,000 4-5 WEEKS10,000-100,000 5-6 WEEKS15,000-200,000 6-8 WEEKS10,000-100,000 2-3 MONTHS No Panel Informationon 11-08 Human Chorionic Gonadotropin, Quant 27 mIU/mL [facility] Comment on above: 5-50 0.2-1 DJCO69-66 0 1-2 FVRDK609-2,000 2-3 LOWMN213-27,000 3-4 WEEKS1,000-50,000 4-5 WEEKS10,000-100,000 5-6 WEEKS15,000-200,000 6-8 WEEKS10,000-100,000 2-3 MONTHS Basophils Auto (Bld) [#/Vol] on 10-23-2023 Basophils (Bld) [#/Vol] 0.0 10 3/uL 0.0-0.1 [facility] Basophils/100 WBC Auto (Bld) on 10-23-2023 Basophils/100 WBC (Bld) 0.8 % 0.2-2.0 [facility] Eosinophils/100 WBC Auto (Bl d)on 10-23-2023 Eosinophils/100 WBC (Bld) 1.4 % 0.9-7.0 [facility] Erythrocyte distribution wid th Auto (RBC) [Ratio]on 10-23-2023 Erythrocyte distribution width (RBC) [Ratio] 11.9 % 11.0-15.0 [facility] Hematocrit Auto (Bld) [Volum e fraction]on 10-23-2023 Hematocrit (Bld) [Volume fraction] 36.0 % 36.0-48.0 [facility] Hemoglobin [Mass/volume] in Bloodon 10-23-2023 Hemoglobin (Bld) [Mass/Vol] 11.8 g/dL 12.0-16.0 [facility] Krzysztof 10-23-2023 L Specimen: [id number] R eceived: 10/26/23 Status: MAIA Newell Num: [id number] Spec Type: Surgical Subm Dr: Scooby Vega Tissues: A Products of Conception - Spontaneous or Missed (POC) Procedures: HE/3, Gross/Micro L4 Age/ Patient Sex Location Account Attending Physician Raphael Elizabeth 37/F [facility] [id number] Scooby Vega SPEC NUM: [id number] RECD: 10/26/23 STATUS: MAIA NEWELL NUM: [id number] JANIE: 10/23/[address]: Scooby Vega ENTERED: 10/26/23 [facility] DR: Owen,Lab SPEC TYPE: Surgical DEPT: [...] cm possible area of villous tissue identified. Database Support sections to include the possible villous tissue are submitted in A1?A3. Clinical history: Missed CPT Codes 35638 -------- -------- Specimen: [id number] Received: 10/26/23-1305 Status: MAIA Newell Num: [id number] Spec Type: Surgical Subm Dr: Scooby Vega Tissues: A Products of Conception - Spontaneous or Missed (POC) Procedures: HE/3, Gross/Micro L4 -------- Patient: Raphael Elizabeth [id number] (Continued) -------- Signed (signature on file) Dante Palacios MD 10/27/23 1511 Normal [facility] - Hematology and Cell countson 10-23-2023 Immature granulocytes/100 WBC (Bld) 0.2 % 0.0-0.5 [facility] Leukocytes [#/volume] correc leroy for nucleated erythrocytes in Blood by Automated counon 10-23-2023 WBC corrected for nucl RBC Auto (Bld) [#/Vol] 5.1 10 3/uL 4.0-11.0 [facility] Lymphocytes Auto (Bld) [#/Vo l]on 10-23-2023 Lymphocytes (Bld) [#/Vol] 1.7 10 3/uL 1.2-3.8 [facility] Lymphocytes/100 WBC Auto (Bl d)on 10-23-2023 Lymphocytes/100 WBC (Bld) 32.8 % 20.5-60.0 [facility] MCH Auto (RBC) [Entitic mass ]on 10-23-2023 MCH (RBC) [Entitic mass] 31.1 pg 26.7-34.0 [facility] MCHC Auto (RBC) [Mass/Vol]on 10-23-2023 MCHC (RBC) [Mass/Vol] 32.8 g/dL 29.9-35.2 [facility] MCV Auto (RBC) [Entitic vol] on 10-23-2023 MCV (RBC) [Entitic vol] 95.0 fL 81.0-99.0 [facility] Monocytes Auto (Bld) [#/Vol] on 10-23-2023 Monocytes (Bld) [#/Vol] 0.3 10 3/uL 0.3-0.8 [facility] Monocytes/100 WBC Auto (Bld) on 10-23-2023 Monocytes/100 WBC (Bld) 5.5 % 1.7-12.0 [facility] Neutrophils Auto (Bld) [#/Vo l]on 10-23-2023 Neutrophils (Bld) [#/Vol] 3.0 10 3/uL 1.4-6.5 [facility] Neutrophils/100 WBC Auto (Bl d)on 10-23-2023 Neutrophils/100 WBC (Bld) 59.3 % 43.0-75.0 [facility] No Panel Informationon 10-22 Eosinophils # (Auto) 0.1 10 3/uL 0.0-0.7 [facility] Immature Granulocyte # (Auto) 0.01 10 3/uL 0.00-0.03 [facility] Platelet mean volume Auto (B ld) [Entitic vol]on 10-23-2023 Platelet mean volume (Bld) [Entitic vol] 9.0 fL 9.5-13.5 [facility] Platelets Auto (Bld) [#/Vol] on 10-23-2023 Platelets (Bld) [#/Vol] 182 10 3/uL 150-450 [facility] RBC Auto (Bld) [#/Vol]on RBC (Bld) [#/Vol] 3.79 10 6/uL 4.20-5.40 [facility] No Panel Informationon 10-11 Human Chorionic Gonadotropin, Quant 54598 mIU/mL [facility] Comment on above: 5-50 0.2-1 DSZK40-45 0 1-2 RQLLK384-8,000 2-3 IWTBD509-10,000 3-4 WEEKS1,000-50,000 4-5 WEEKS10,000-100,000 5-6 WEEKS15,000-200,000 6-8 WEEKS10,000-100,000 2-3 MONTHS No Panel Informationon 10-06 Human Chorionic Gonadotropin, Quant 54804 mIU/mL [facility] Comment on above: 5-50 0.2-1 COAW03-37 0 1-2 BEBAW325-3,000 2-3 XSDFK345-48,000 3-4 WEEKS1,000-50,000 4-5 WEEKS10,000-100,000 5-6 WEEKS15,000-200,000 6-8 WEEKS10,000-100,000 2-3 MONTHS No Panel Informationon 10-04 Human Chorionic Gonadotropin, Quant 97983 mIU/mL [facility] Comment on above: 5-50 0.2-1 WDCX80-08 0 1-2 XDDVH183-9,000 2-3 GGHMH505-61,000 3-4 WEEKS1,000-50,000 4-5 WEEKS10,000-100,000 5-6 WEEKS15,000-200,000 6-8 WEEKS10,000-100,000 2-3 MONTHS PAP ACOG PANEL 2: 30 to 65on 03-11-2022 . . Normal [facility] Comment on above: Result Comment: Perf ormed at: WB Performed By: #### [id number] #### [facility] [address] [address] [address] Danni Jacobs Age Gdln ACOG Testing 30-65 Normal [facility] Comment on above: Performed By: #### 4 [id number] #### [facility] [address] [address] [address] Danni Jacobs DIAGNOSIS: Comment Normal [facility] Comment on above: Result Comment: NEGA TIVE FOR INTRAEPITHELIAL LESION OR MALIGNANCY. THIS SPECIMEN WAS RESCREENED PART OF OUR PATIENT ACCOUNT LIAISON PROGRAM. Performed at: WB Performed By: #### [id number] #### [facility] [address] [place] [address] Dr. Danni Jacobs HPV Aptima Negative Normal Negative [facility] Comment on above: Result Comment: This nucleic acid amplification test detects fourteen high-risk HPV types (16,18,31,33,35,39,45,51,52,56,58,59,66,68) without differentiation. Performed at: =G Performed By: #### [id number] #### [facility] [address] [place] [address] Dr. Danni Jacobs Methodology: Comment Normal [facility] Comment on above: Result Comment: This liquid based ThinPrep(R) pap test was screened with the use of an image guided system. Performed at: WB Performed By: #### 4 [id number] #### [facility] [address] [place] [address] Dr. Danni Jacobs Note: Comment Normal [facility] Comment on above: Result Comment: The Pap smear is a screening test designed to aid in the detection of premalignant and malignant conditions of the uterine cervix. It is not a diagnostic procedure and should not be used as the sole means of detecting cervical cancer. Both false-positive and false-negative reports do occur. . Performed at: WB Performed By: #### [id number] #### [facility] [address] [place] [address] Dr. Danni Jacobs Performed by: Comment Normal [facility] Comment on above: Result Comment: Rocky Hull, Ornamental Metalwork Designer (ASCP) Performed at: WB Performed By: #### [id number] #### [facility] [address] [place] [address] Dr. Danni Jacobs QC reviewed by: Comment Normal [facility] Comment on above: Result Comment: Betzaida Ge, Supervisory Ornamental Metalwork Designer (ASCP) Performed at: WB Performed By: #### [id number] #### [facility] [address] [place] [address] Dr. Danni Jacobs Specimen adequacy: Comment Normal [facility] Comment on above: Result Comment: Sati sfactory for evaluation. Endocervical and/or squamous metaplastic cells (endocervical component) are present. Performed at: WB Performed By: #### 4 [id number] #### [facility] [address] [address] [address] Danni Jacobs GLUCOSE BLOODon 04-22-2021 Glucose [Mass/Vol] 99 mg/dL Normal 74-[address] [facility] Comment on above: Performed By: #### G YOSEPH, LIPID #### [facility] [address] [place] [address] Dr. Danni Jacobs LIPID PROFILEon 04-22-2021 CHOL-HDL RATIO NORM SEE BELOW Normal [facility] Comment on above: Result Comment: 3.3 - 4.4 LOW RISK 4.4 - 7.1 AVERAGE RISK 7.1 - 11.0 MODERATE RISK >11.0 HIGH RISK Performed By: #### G YOSEPH, LIPID #### [facility] [address] [place] [address] Dr. Danni Jacobs Cholesterol [Mass/Vol] 157 mg/dL Normal <=200 [facility] Comment on above: Performed By: #### G YOSEPH, LIPID #### [facility] [address] [place] [address] Dr. Danni Jacobs Cholesterol in HDL [Mass/Vol] 74 mg/dL Normal [facility] Comment on above: Performed By: #### G YOSEPH, LIPID #### [facility] [address] [address] [address] Danni Jacobs Cholesterol in LDL [Mass/Vol] 71.2 mg/dL Normal [facility] Comment on above: Performed By: #### G YOSEPH, LIPID #### [facility] [address] [place] [address] Dr. Danni Jacobs Cholesterol.total/C holesterol in HDL [Mass ratio] 2.1 {ratio} Normal [facility] Comment on above: Performed By: #### G YOSEPH, LIPID #### [facility] [address] [address] [address] Danni Jacobs HDL NORMAL > or = 60 mg/dl - LO W CARDIOVASCULAR RISK <40 mg/dl - HIGH CARDIOVASCULAR RISK Normal [facility] Comment on above: Performed By: #### G YOSEPH, LIPID #### [facility] [address] [address] [address] Danni Jacobs LDL CALC NORMAL SEE BELOW Normal [facility] Comment on above: Result Comment: <100 mg/dl OPTIMAL 100 - 129 mg/dl NEAR OR ABOVE OPTIMAL 130 - 159 mg/dl BORDERLINE HIGH 160 - 189 mg/dl HIGH >190 mg/dl VERY HIGH Performed By: #### G YOSEPH, LIPID #### [facility] [address] [address] [address] Danni Jacobs Triglyceride [Mass/Vol] 59 mg/dL Normal <=150 [facility] Comment on above: Performed By: #### G YOSEPH, LIPID #### [facility] [address] [address] [address] Danni Jacobs VLDL CALC 11.8 mg/dL Normal [facility] Comment on above: Performed By: #### G YOSEPH, LIPID #### [facility] [address] [address] [address] Danni Jacobs Vital Signs Date Time Vital Sign Value Performing Clinician Philippe mera 08-24-2024 13:51-0500 Body mass index (BMI) [Ratio] 24.18 kg/m2 [employer] DO Work Phone: [facility] 08-24-2024 13:51-0500 Body weight 70.03 kg Scooby Gary DO Work Phone: [facility] 08-24-2024 13:51-0500 Diastolic blood pressure 68 mm[Hg] Scooby Gary DO Work Phone: [facility] 08-24-2024 13:51-0500 Systolic blood pressure 112 mm[Hg] Scooby Gary DO Work Phone: [facility] [facility] 08-18-2024 09:28-0500 Body mass index (BMI) [Ratio] 23.62 kg/m2 Scooby Gary DO Work Phone: [facility] 08-18-2024 09:28-0500 Body weight 68.4 kg Scooby Gary DO Work Phone: [facility] 08-18-2024 09:28-0500 Diastolic blood pressure 72 mm[Hg] Scooby Gary DO Work Phone: [facility] 08-18-2024 09:28-0500 Systolic blood pressure 110 mm[Hg] Scooby Gary DO Work Phone: [facility] 08-01-2024 13:55-0500 Body mass index (BMI) [Ratio] 22.87 kg/m2 Scooby Gary DO Work Phone: [facility] 08-01-2024 13:55-0500 Body weight 66.22 kg Scooby Gary DO Work Phone: [facility] 08-01-2024 13:55-0500 Diastolic blood pressure 74 mm[Hg] Scooby Gary DO Work Phone: [facility] 08-01-2024 13:55-0500 Systolic blood pressure 116 mm[Hg] Scooby Gary DO Work Phone: [facility] 07-18-2024 15:05-0500 Body mass index (BMI) [Ratio] 22.84 kg/m2 Scooby Gary DO Work Phone: [facility] 07-18-2024 15:05-0500 Body weight 66.13 kg Scooby Gary DO Work Phone: [facility] 07-18-2024 15:05-0500 Diastolic blood pressure 70 mm[Hg] Scooby Gary DO Work Phone: [facility] 07-18-2024 15:05-0500 Systolic blood pressure 118 mm[Hg] Scooby Gary DO Work Phone: [facility] 06-30-2024 12:01-0500 Body mass index (BMI) [Ratio] 22.26 kg/m2 Scooby Gary DO Work Phone: [facility] 06-30-2024 12:01-0500 Body weight 64.47 kg Scooby Gary DO Work Phone: [facility] 06-30-2024 12:01-0500 Diastolic blood pressure 70 mm[Hg] Scooby Gary DO Work Phone: [facility] 06-30-2024 12:01-0500 Systolic blood pressure 110 mm[Hg] Scooby Gary DO Work Phone: [facility] 06-02-2024 10:45-0500 Body mass index (BMI) [Ratio] 21.9 kg/m2 Scooby Gary DO Work Phone: [facility] 06-02-2024 10:45-0500 Body weight 63.41 kg Scooby Gary DO Work Phone: [facility] 06-02-2024 10:45-0500 Diastolic blood pressure 72 mm[Hg] Scooby Gary DO Work Phone: [facility] 06-02-2024 10:45-0500 Systolic blood pressure 116 mm[Hg] Scooby Gary DO Work Phone: [facility] 05-02-2024 16:20-0500 Body mass index (BMI) [Ratio] 21.61 kg/m2 Emely COBB Work Phone: [facility] 05-02-2024 16:20-0500 Body weight 62.6 kg Emely COBB Work Phone: [facility] 05-02-2024 16:20-0500 Diastolic blood pressure 68 mm[Hg] Emely COBB Work Phone: [facility] 05-02-2024 16:20-0500 Systolic blood pressure 120 mm[Hg] Emely COBB Work Phone: [facility] 04-29-2024 11:40-0500 Body weight Jen Granados MD Work Phone: [facility] 04-04-2024 14:55-0400 Body mass index (BMI) [Ratio] 21.27 kg/m2 Scooby Gary DO Work Phone: [facility] 04-04-2024 14:55-0400 Body weight 61.6 kg Scooby Gary DO Work Phone: [facility] 04-04-2024 14:55-0400 Diastolic blood pressure 70 mm[Hg] Scooby Gary DO Work Phone: [facility] 04-04-2024 14:55-0400 Systolic blood pressure 116 mm[Hg] Scooby Gary DO Work Phone: [facility] 03-07-2024 10:47-0400 Body mass index (BMI) [Ratio] 20.07 kg/m2 Scooby Gary DO Work Phone: [facility] 03-07-2024 10:47-0400 Body weight 58.12 kg Scooby Gary DO Work Phone: [facility] 03-07-2024 10:47-0400 Diastolic blood pressure 68 mm[Hg] Scooby Gary DO Work Phone: [facility] 03-07-2024 10:47-0400 Systolic blood pressure 114 mm[Hg] Scooby Gary DO Work Phone: [facility] 12-01-2023 16:10-0400 Body height 170.18 cm Scooby Gary Work Phone: [facility] 12-01-2023 16:10-0400 Body mass index (BMI) [Ratio] 19.5 kg/m2 Scooby Gary Work Phone: [facility] 12-01-2023 16:10-0400 Body weight 56.69 kg Scooby Gary Work Phone: [facility] 12-01-2023 16:10-0400 Diastolic blood pressure 78 mm[Hg] Scooby Gary Work Phone: [facility] 12-01-2023 16:10-0400 Systolic blood pressure 112 mm[Hg] Scooby Gary Work Phone: [facility] Encounters Encounter Date Encounter Type Care Provider [...] Start: 06-30-2024 End: 06-30-2024 flow sheet Scooby Gray DO Work Phone: [facility] Comment on above: 27 weeks gestation o f ; Second trimester ; Gestational diabetes mellitus (GDM), antepartum, gestational diabetes method of control unspecified Start: 06-25-2024 End: 06-25-2024 ambulatory Jen Granados MD Work Phone: [facility] Work Phone: Start: 06-25-2024 End: 06-25-2024 Departed Referred Jen Granados MD Work Phone: [facility] Start: 06-25-2024 Non-patient / Non-visit Jen Granados MD Work Phone: [facility] Work Phone: Start: 06-02-2024 End: 06-02-2024 Bamboo flowsheet Scooby Gary DO Work Phone: [facility] Start: 06-02-2024 End: 06-02-2024 Bamboo flowsheet Scooby Gary DO Work Phone: [facility] Start: 06-02-2024 End: 06-02-2024 ambulatory SCOOBY GARY Not Available Start: 06-02-2024 End: 06-02-2024 flow sheet Scooby Gary DO Work Phone: [facility] Comment on above: Second trimester pre gnancy; 23 weeks gestation of ; with normal glucose tolerance test (GTT); Diabetes mellitus screening; Gestational diabetes mellitus (GDM), antepartum, gestational diabetes method of control unspecified; Elevated glucose tolerance test Start: 05-02-2024 Non-patient / Non-visit Jen Granados MD Work Phone: [facility] Work Phone: Start: 05-02-2024 End: 05-02-2024 ambulatory EMELY HUNTER Not Available Start: 05-02-2024 End: 05-02-2024 Patient encounter procedure Emely COBB Work Phone: [facility] Work Phone: Start: 05-02-2024 End: 05-02-2024 flow sheet Emely COBB Work Phone: [facility] Comment on above: Well woman exam with routine gynecological exam; Second trimester ; 19 weeks gestation of ; Vaginal discharge; STD exposure; Screening, , for anatomic survey Start: 05-02-2024 End: 05-02-2024 Bamboo flowsheet Emely COBB Work Phone: [facility] Start: 05-02-2024 End: 05-10-2024 Bamboo flowsheet Emely COBB Work Phone: [facility] Start: 05-02-2024 End: [...] Jen Granados MD Work Phone: [facility] Work Phone: Start: 04-04-2024 End: [...] [facility] Start: 04-04-2024 End: 04-04-2024 ambulatory [facility] Start: 04-01-2024 End: 04-01-2024 [...] [facility] Start: 02-08-2024 End: 02-08-2024 General acute hospital [facility] Start: 02-08-[address] [facility] Start: 12-01-2023 End: 12-01-2023 ambulatory Scooby Gary Work Phone: [facility] Work Phone: Start: 12-01-2023 End: 12-01-2023 Patient encounter procedure Scooby Gary Work Phone: [facility] Work Phone: Start: 11-30-2023 Non-patient / Non-visit Scooby Gary Work Phone: [facility] Work Phone: Start: 11-23-2023 Non-patient / Non-visit Scooby Gary Work Phone: [facility] Work Phone: Start: 11-17-2023 Non-patient / Non-visit Scooby Gary Work Phone: [facility] Work Phone: Start: 11-09-2023 Non-patient / Non-visit Scooby Gary Work Phone: [facility] Work Phone: Start: 11-09-2023 End: 11-09-2023 ambulatory EMELY HUNTER Not Available Start: 10-23-2023 End: 10-23-2023 ambulatory Scooby Gary [facility] Work Phone: Start: 10-23-2023 End: 10-23-2023 Departed Referred Scooby Gary Work Phone: [facility] Start: 10-23-2023 Non-patient / Non-visit Scooby Gary Work Phone: [facility] Work Phone: Start: 10-12-2023 Non-patient / Non-visit Scooby Gary Work Phone: [facility] Work Phone: Start: 10-07-2023 Non-patient / Non-visit Scooby Gary Work Phone: [facility] Work Phone: Start: 10-05-2023 Non-patient / Non-visit Scooby Gary Work Phone: [facility] Work Phone: Start: 03-03-2022 End: 03-03-[address] SCOOBY VEGA Facility:[facility] Start: 04-28-2021 Encounter for genera l adult medical examination without abnormal findings DR DALTON LOGAN [facility] Start: 04-22-2021 End: 04-23-[address] [...] Follow-up visit Follow-up ASHLEY ROCK Start: 02-26-2024 [facility] BOX TEST SENT OUT C orey Gary DO Work Phone: Start: 02-16-2024 ALL CBC WITH AUTO DIFF Scooby Gary DO Work Phone: Start: 02-12-2024 End: 02-12-2024 Urnls dip stick/tablet rgnt non-auto w/o micrscp Scooby Gary DO Work Phone: Plan of Treatment Date Care Activity Detail Author Start: 09-12-2024 End: 09-12-2024 Patient encounter procedure 09/12/2024 9:00 AM EDT Routine [facility] [address] [place] [place] [address] Scooby Vega, DO [address] [place], [place] [address] [address] [facility] Start: 09-05-2024 End: 09-05-2024 Patient encounter procedure 09/05/2024 1:30 PM EDT Routine [facility] [address] [place] [phone] Scooby Vega, DO [address] [place] [address] [place] [address] [facility] Start: 08-24-2024 End: 08-24-2025 CULTURE, GROUP B STREP WITH SUSCEPTIBLITY CULTURE, GROUP B STREP WITH SUSCEPTIBLITY Lab Routine Third trimester Expected: 08/24/2024, Expires: 08/24/2025 [facility] Work Phone: Comment on above: Expected: 08/24/2024 , Expires: 08/24/2025 Start: 08-24-2024 End: 08-24-2024 Patient encounter procedure 08/24/2024 1:20 PM EST Routine [facility] [address] [place] [phone] Scooby Vega, [address] [place] [address] [facility] Start: 08-18-2024 End: 08-18-2025 US for US OB follow up transabdominal approach Imaging Routine Multigravida of advanced maternal age in third trimester Expected: 08/18/2024, Expires: 08/18/2025 [facility] Work Phone: Comment on above: Expected: 08/18/2024 , Expires: 08/18/2025 Start: 08-18-2024 End: 08-18-2024 Patient encounter procedure 08/18/2024 9:20 AM EST Routine [facility] [address] [place] [phone] Scooby Vega, DO [address] [place] [address] [facility] Start: 08-01-2024 End: 08-01-2024 Patient encounter procedure 08/01/2024 1:20 PM EST Routine [facility] [address] [place] [phone] Scooby Vega, DO [address] [place] [address] [facility] Start: 07-18-2024 End: 07-18-2024 Patient encounter procedure 07/18/2024 2:30 PM EST Routine [facility] [address] [place] [address] Scooby Vega, DO [address] [place] [address] [facility] Start: 07-18-2024 End: 07-18-2025 US biophysical profile w non stress test US biophysical profile w non stress test Imaging Routine 30 weeks gestation of Third trimester Expected: 07/18/2024 (Approximate), Expires: 07/18/2025 [facility] Work Phone: Comment on above: Expected: 07/18/2024 (Approximate), Expires: 07/18/2025 Start: 06-30-2024 End: 06-30-2025 US biophysical profile w non stress test US biophysical profile w non stress test Imaging Routine Gestational diabetes mellitus (GDM), antepartum, gestational diabetes method of control unspecified Expected: 06/30/2024 (Approximate), Expires: 06/30/2025 [facility] Comment on above: Expected: 06/30/2024 (Approximate), Expires: 06/30/2025 Start: 06-30-2024 End: 06-30-2025 US for US OB follow up transabdominal approach Imaging Routine Gestational diabetes mellitus (GDM), antepartum, gestational diabetes method of control unspecified Expected: 06/30/2024, Expires: 06/30/2025 [facility] Work Phone: Comment on above: Expected: 06/30/2024 , Expires: 06/30/2025 Start: 06-30-2024 End: 06-30-2024 Patient encounter procedure 06/30/2024 11:50 AM EST Routine [facility] [address] [place] [phone] Scooby Vega, [address] [place] [address] [facility] Start: 06-25-2024 Urine culture [facility] Start: 06-25-2024 Bacteria identified in Urine by Culture Urine Culture [facility] Start: 06-02-2024 End: 06-02-2025 CBC panel - Blood by Automated count CBC Lab Routine Diabetes mellitus screening Expected: 06/02/2024 (Approximate), Expires: 06/02/2025 [facility] Work Phone: Comment on above: Expected: 06/02/2024 (Approximate), Expires: 06/02/2025 Start: 06-02-2024 End: 06-02-2025 Measurement of glucose 1 hour after glucose challenge for glucose tolerance test Glucose tolerance, 1 hour Lab Routine Diabetes mellitus screening Expected: 06/02/2024 (Approximate), Expires: 06/02/2025 [facility] Comment on above: Expected: 06/02/2024 (Approximate), Expires: 06/02/2025 Start: 06-02-2024 End: 06-02-2024 Patient encounter procedure 06/02/2024 10:10 AM EST Routine [facility] [address] [place] [phone] Scooby Vega, DO [address] [place], [place] [address] [address] [facility] Start: 05-02-2024 End: 05-02-2024 Patient encounter procedure 05/02/2024 3:30 PM EST Routine [facility] [address] [place] [phone] Emely Hunter PA [address] [place] [address] [facility] Start: 05-02-2024 End: 10-30-2024 [...] EST Office Visit [facility] [address] [place] [phone] Scooby Vega DO [address] [place] [address] [facility] Start: 04-04-2024 End: 04-04-2024 [...] [facility] [address] [place] [address] Gretchen Moreno, PT [facility] Start: 03-23-2024 End: 03-23-2024 ambulatory 03/23/2024 1:00 PM EDT Treatment [facility] [address] [facility] [address] [place] [address] Gretchen Moreno, PT [facility] Start: 03-18-2024 End: 03-18-2024 ambulatory 03/18/2024 1:30 PM EDT Treatment [facility] [address] [facility] [address] [place] [address] Gretchen Moreno, PT [facility] Start: 03-11-2024 End: 03-11-2024 ambulatory 03/11/2024 1:30 PM EDT Treatment [facility] [address] [facility] [address] [place] [address] Gretchen Moreno, PT [facility] Start: 03-07-2024 End: 03-07-2024 Patient encounter procedure 03/07/2024 10:10 AM EDT Routine [facility] [address] [place] [phone] Scooby Vega, [address] [facility] [place] [address] [facility] Start: 03-03-2024 End: 03-03-2024 ambulatory 03/03/2024 10:30 AM EDT Treatment [facility] [address] [facility] [address] [place] [address] Gretchen Moreno, PT [facility] Start: 02-26-2024 End: 02-26-2024 ambulatory 02/26/2024 1:30 PM EDT Treatment [facility] [address] [facility] [address] [place] [address] Gretchen Moreno, PT Arrived [facility] Comment on above: Arrived Start: 02-25-2024 End: 02-25-2024 ambulatory 02/25/2024 10:30 AM EDT Treatment [facility] [address] [facility] [address] [place] [address] Gretchen Moreno, PT [facility] Start: 02-17-2024 End: 02-17-2024 ambulatory 02/17/2024 12:00 PM EDT Treatment [facility] [address] [facility] [address] [place] [address] Gretchen Moreno, PT [facility] Start: [...] AM EDT Initial [facility] [address] [place] [address] [facility] Start: 02-12-2024 End: 02-12-2024 Professional / ancillary services management 02/12/2024 10:00 AM EDT Ancillary Procedure [facility] [address] [place] [address] [facility] Start: 02-10-2024 End: 02-10-2024 ambulatory 02/10/2024 5:00 PM EDT Evaluation [facility] [address] [place] [address] [place] [address] Gretchen Moreno, PT Arrived [facility] Comment on above: Arrived Bacteria identified in Urine by Culture Urine culture Microbiology Routine Missed menses Ordered: 02/12/2024 [facility] Comment on above: Ordered: 02/12/2024 CBC W Auto Different ial panel - Blood CBC and differential Lab Routine Missed menses Ordered: 02/12/2024 [facility] Comment on above: Ordered: 02/12/2024 CHLAMYDIA TRACHOMATI S (GENITO/STI) CHLAMYDIA TRACHOMATIS (GENITO/STI) Lab Routine STD exposure Ordered: 05/02/2024 [facility] Comment on above: Ordered: 05/02/2024 Cytology Cervical or vaginal smear or scraping study Pap Smear Pathology and Cytology Routine Well woman exam with routine gynecological exam Ordered: 05/02/2024 [facility] Comment on above: Ordered: 05/02/2024 Hemoglobin A1c/Hemoglobin.total in Blood Hemoglobin A1c Lab Routine Missed menses Ordered: 02/12/2024 [facility] Comment on above: Ordered: 02/12/2024 Hepatitis B virus surface Ag [Presence] in Serum or Plasma by Immunoassay Hepatitis B surface antigen Lab Routine Missed menses Ordered: 02/12/2024 [facility] Comment on above: Ordered: 02/12/2024 Hepatitis C virus Ab [Presence] in Serum or Plasma by Immunoassay Hepatitis C antibody Lab Routine Missed menses Ordered: 02/12/2024 [facility] Comment on above: Ordered: 02/12/2024 HIV-1/HIV-2 antigen/antibody combination immunoassay HIV-1 and HIV-2 antibodies Lab Routine Missed menses Ordered: 02/12/2024 [facility] Comment on above: Ordered: 02/12/2024 Human papilloma viru s DNA [Presence] in Unspecified specimen by Probe with amplification HPV DNA probe, amplified Microbiology Routine Well woman exam with routine gynecological exam Ordered: 05/02/2024 [facility] Comment on above: Ordered: 05/02/2024 Neisseria gonorrhoea e DNA [Presence] in Unspecified specimen by JUAN ANTONIO with probe detection Neisseria gonorrhea DNA probe, direct Lab Routine STD exposure Ordered: 05/02/2024 [facility] Comment on above: Ordered: 05/02/2024 Reagin Ab [Presence] in Serum by RPR RPR Lab Routine Missed menses Ordered: 02/12/2024 [facility] Comment on above: Ordered: 02/12/2024 Rubella antibody, IgG Rubella an tibody, IgG Lab Routine Missed menses Ordered: 02/12/2024 [facility] Comment on above: Ordered: 02/12/2024 SURESWAB(R) ADVANCED VAGINITIS PLUS, TMA SURESWAB(R) ADVANCED VAGINITIS PLUS, TMA Pathology and Cytology Routine Vaginal discharge Ordered: 05/02/2024 [facility] Work Phone: Comment on above: Ordered: 05/02/2024 XR Hip - left 2 Views [facility] Payers Date Payer Category Payer Private Health Insurance ESTELA Decker [id number] 2022 Unknown [place]ILAM Decker [place] [id number] 2022-Present [phone] [address] [place] [id number] 1987 Unknown [id number] 2.16.840.1.169006.3.579.2 .593 1987 Unknown [id number] 2.16.840.1.177351.3.579.2 .593 1987 Unknown [id number] 2.16.840.1.334589.3.579.2 .6 1987 Unknown [id number] 2.16.840.1.018875.3.579.2 .1285 1987 Unknown [id number] 2.16.840.1.150438.3.579.2 .1285 1987 Unknown [id number] 2.16840.1.692008.3.579.2 .1258 1987 Unknown [id number] 2.840.1.900878.3.579.2 .1258 1987 Unknown [id number] 2.840.1.272362.3.579.2 .1258 1987 Unknown [id number] 2.840.1.517118.3.579.2 .1258 1987 Unknown [id number] 2.840.1.038952.3.579.2 .1258 1987 Unknown [id number] 2.840.1.321877.3.579.2 .1258 1987 Unknown [id number] 2.840.1.027222.3.579.2 .1258 1987 Unknown [id number] 2.840.1.605791.3.579.2 .1258 1987 Unknown [id number] 2.16840.1.862792.3.579.2 .1258 1987 Unknown [id number] 2.16840.1.137055.3.579.2 .1258 1987 Unknown [id number] 2.16840.1.348616.3.579.2 .1258 1987 Unknown [id number] 2.16840.1.180438.3.579.2 .1259 1987 Unknown [id number] 2.16.840.1.039888.3.579.2 .9 1987 Unknown [id number] 2.16.840.1.120865.3.579.2 .9 1987 Unknown [id number] 2.16.840.1.328484.3.579.2 .1258 1987 Unknown [id number] 2.16.840.1.381695.3.579.2 .9 1987 Unknown [id number] 2.16.840.1.799077.3.579.2 .1258 1987 Unknown [id number] 2.16.840.1.544339.3.579.2 .9 1987 Unknown [id number] 2.16.840.1.345258.3.579.2 .9 1959 Unknown [id number] Social History Date Type Detail Facility [facility] Work Phone: Start: 1985 Sex Assigned At Female F [facility] Start: 02-26-2023 [facility] Start: 11-09-2023 History of Social function [facility] Start: 11-09-2023 Tobacco use panel [facility] Start: 01-01-2024 [facility] Start: 1985 Sex assigned at Not on file [facility] Tobacco smoking stat [facility] Unknown if ever smoked [facility] Work Phone: Start: 06-27-2024 Sex Female (finding) [facility] Medical Equipment Procedure Code Equipment Code Equipment Origin al Text Equipment Identifier Dates 1 strip by In Vi tro route Daily Use in the morning prior to breakfast, 1 hour after each meal for a total of 4times daily. [id number] Start: 06-02-2024 End: 07-02-2024 1 each by In Vit ro route Daily Use to check FSBS four times daily [id number] Start: 06-02-2024 End: 07-02-2024 Goals Date Patient Goal Desired Activity /State Personal health goal Clinical Notes 02-10-2024 to 08-24-2024 Belle Villanueva, RECORD CLERK - 08/24/2024 1:20 PM ESTSusan Spitler, RECORD CLERK - 08/18/2024 9:20 AM ESTSusan Spitler, RECORD CLERK - 08/01/2024 1:20 PM ESTSusan Spitler, RECORD CLERK - 07/18/2024 2:30 PM EST Note Date [...] nursing note reviewed. Exam conducted with a hospital intern present. Vitals: Estimated body mass index is [...] Scooby Vega DO documented in this encounter [facility] 08-18-2024 History of Present illness Narrative Reason [...] nursing note reviewed. Exam conducted with a hospital intern present. Vitals: Estimated body mass index is [...] Scooby Vega DO documented in this encounter [facility] 08-01-2024 History of Present illness Narrative [...] 81 mg, Daily Blood Glucose Monitoring Suppl ([employer] Glucometer) w/Device kit 1 kit, Does not [...] nursing note reviewed. Exam conducted with a hospital intern present. Vitals: Estimated body mass index is [...] Scooby Vega DO documented in this encounter [facility] 07-18-2024 History of Present illness Narrative [...] nursing note reviewed. Exam conducted with a hospital intern present. Vitals: Estimated body mass index is [...] of:Emely Hunter PA-C documented in this encounter [facility] 06-30-2024 History of Present illness Narrative [...] 81 mg, Daily Blood Glucose Monitoring Suppl (MeshApp Glucometer) w/Device kit 1 kit, Does not [...] Scooby Vega DO documented in this encounter [facility] 06-02-2024 History of Present illness Narrative [...] nursing note reviewed. Exam conducted with a hospital intern present. Vitals: Estimated body mass index is [...] Scooby Vega DO documented in this encounter [facility] 05-02-2024 History of Present illness Narrative [...] nursing note reviewed. Exam conducted with a hospital intern present. Vitals: Estimated body mass index is [...] obtained without difficulty and patient was given [facility] order to have obtained. Orders Placed This [...] of: JORDYN Fonseca documented in this encounter [facility] 04-04-2024 History of Present illness Narrative [...] nursing note reviewed. Exam conducted with a hospital intern present. Vitals: Estimated body mass index is [...] Aspirin. Discussed again in regards to seeing [facility] & referral will be completed. Patient to have NST/BPP starting at 32 weeks gestation. Patient will have Anatomy Scan done at [facility]. Patient is Rh Negative and will [...] Scooby Vega DO documented in this encounter [facility] 04-01-2024 History of Present illness [...] and it pops a lot randomly. Precautions: [place] Subjective: Pt states overall, ROM has improved. [...] to be instructed in home exercise program. Ge[employer] Field Technician Goals: To be met in 10 weeks [...] sign below. Date: documented in this encounter [facility] 03-23-2024 History of Present illness Narrative [...] and it pops a lot randomly. Precautions: [place] Subjective: Pt states range of motion of [...] to be instructed in home exercise program. Fdc Goals: To be met in 10 weeks [...] sign below. Date: documented in this encounter [facility] 03-18-2024 History of Present illness Narrative [...] and it pops a lot randomly. Precautions: [place] Subjective: Pt states she feels like her [...] to be instructed in home exercise program. Fdc Goals: To be met in 10 weeks [...] sign below. Date: documented in this encounter [facility] 03-11-2024 History of Present illness Narrative [...] and it pops a lot randomly. Precautions: [place] Subjective: Pt states overall she believes hip [...] to be instructed in home exercise program. Geothermal Field Technician Goals: To be met in 10 weeks [...] sign below. Date: documented in this encounter [facility] 03-07-2024 History of Present illness Narrative [...] nursing note reviewed. Exam conducted with a hospital intern present. Vitals: Estimated body mass index is [...] meat, and stay away from [facility]. Patient has been consulted regarding any further do's and don'ts of . Patient voiced understanding and all questions and concerns were answered. Follow Up: Patient is to return in 4 weeks for routine OB appointment. Documented by Kalie Loera LPN on behalf of: Scooby Vega DO documented in this encounter [facility] 03-03-2024 History of Present illness Narrative [...] and it pops a lot randomly. Precautions: [place] Subjective: Pt states she has been doing [...] to be instructed in home exercise program. Geothermal Field Technician Goals: To be met in 10 weeks [...] sign below. Date: documented in this encounter [facility] 02-26-2024 History of Present illness Narrative [...] and it pops a lot randomly. Precautions: [place] Subjective: Pt states she was able to [...] to be instructed in home exercise program. Geothermal Field Technician Goals: To be met in 10 weeks [...] sign below. Date: documented in this encounter [facility] 02-17-2024 History of Present illness Narrative [...] and it pops a lot randomly. Precautions: [place] Subjective: Pt states she has not done [...] to be instructed in home exercise program. Geothermal Field Technician Goals: To be met in 10 weeks [...] sign below. Date: documented in this encounter [facility] 02-12-2024 History of Present illness Narrative [...] meat, and stay away from [facility]. Patient has also been advised to [...] Estee Cobb LPN documented in this encounter [facility] 02-10-2024 History of Present illness Narrative [...] and it pops a lot randomly. Precautions: [place] Subjective: left hip ant and lateral Pain: [...] to be instructed in home exercise program. Geothermal Field Technician Goals: To be met in 10 weeks [...] sign below. Date: documented in this encounter [facility] Healthcare Evaluation note No assessment inform ation available [facility] Work Phone: Evaluation note Diagnosis Onset Date Left hip pain acute [facility] Work Phone: Evaluation note* Diagnosis Pain [...] ATION 07/03/2024 [facility] DATE CREATED AUTHOR AUTHOR'S ORGANIZ ATION 08/26/2024 [facility] d[facility] Specialists EPIC Care Teams (unrecognized [...] December 01, 2023 End: December 01, 2023 Wellhead Pumper Relationship Specialty Start Date End Date Jen Granados MD [address] [place] [facility] [place] [address] PCP - General Family Medicine 03/10/23 Wellhead Pumper Relationship Specialty Start Date End Date Jen Granados MD [address] [place] [facility] [place] [address] PCP - General Family Medicine 03/10/23 Wellhead Pumper Relationship Specialty Start Date End Date Jen Granados MD [address] [place] [facility] [address] PCP - General Family Medicine 03/10/23 Wellhead Pumper Relationship Specialty Start Date End Date Jen Granados MD [address] [place] [facility] [address] PCP - General Family Medicine 03/10/23 Wellhead Pumper Relationship Specialty Start Date End Date Jen Granados MD [address] [place] [facility] [address] PCP - General Family Medicine 03/10/23 Wellhead Pumper Relationship Specialty Start Date End Date Jen Granados MD [address] [place] [facility] [place] [address] PCP - General Family Medicine 03/10/23 Wellhead Pumper Relationship Specialty Start Date End Date Jen Granados MD [address] [place] [facility] [address] PCP - General Family Medicine 03/10/23 Wellhead Pumper Relationship Specialty Start Date End Date Jen Granados MD [address] [facility] [place] [address] PCP - General Family Medicine 03/10/23 Wellhead Pumper Relationship Specialty Start Date End Date Jen Granados MD [address] [facility] [place] [address] PCP - General Family Medicine 03/10/23 Wellhead Pumper Relationship Specialty Start Date End Date Jen Granados MD [address] [facility] [place] [address] PCP - General Family Medicine 03/10/23 Wellhead Pumper Relationship Specialty Start Date End Date Jen Granados MD [address] [facility] [place] [address] PCP - General Family Medicine 03/10/23 Wellhead Pumper Relationship Specialty Start Date End Date Jen Granados MD [address] [facility] [place] [address] PCP - General Family Medicine 03/10/23 Wellhead Pumper Relationship Specialty Start Date End Date Jen Granados MD [address] [facility] [place] [address] PCP - General Family Medicine 03/10/23 Wellhead Pumper Relationship Specialty Start Date End Date Jen Granados MD [address] [facility] [place] [address] PCP - General Family Medicine 03/10/23 Wellhead Pumper Relationship Specialty Start Date End Date Jen Granados MD [address] [facility] [place] [address] PCP - General Family Medicine 03/10/23 Team [...] June 25, 2024 End: June 25, 2024 Wellhead Pumper Relationship Specialty Start Date End Date Jen Granados MD [address] [place] [address] PCP - General Family Medicine 03/10/23 Wellhead Pumper Relationship Specialty Start Date End Date Jen Granados MD [address] [place] [address] PCP - General Family Medicine 03/10/23 Wellhead Pumper Relationship Specialty Start Date End Date Jen Granados MD [address] [place] [facility] [address] PCP - General Family Medicine 03/10/23 Wellhead Pumper Relationship Specialty Start Date End Date Jen Granados MD [address] [place] [phone] PCP - General Family Medicine 03/10/23 Wellhead Pumper Relationship Specialty Start Date End Date Jen Granados MD [address] [place] [address] PCP - General Family Medicine 03/10/23 Wellhead Pumper Relationship Specialty Start Date End Date Jen Granados MD [address] [place] [address] PCP - General Family Medicine 03/10/23 Wellhead Pumper Relationship Specialty Start Date End Date Jen Granados MD [address] [place] [phone] PCP - General Family Medicine 03/10/23 Goals [...] of left lower limb, excluding foot Procedures [place] PHYSICAL THERAPY EVALUATION LOW COMPLEX 20 MINS Ashley Rock MD [address] [place] [address] Gretchen Moreno PT Referral ID Status Reason Start Date Expiration Date V isits Requested Visits Authorized [id number] Authorized 02/10/2024 08/08/2024 99 99 Reason Comments [...] BE BASED ON THE PRIMARY CLINICAL RECORDS. [facility] [employer] [facility]. provides no warranty or guarantee of the accuracy or completeness of information in this document.
[2024-09-06 18:20] VITALS: BP 130/72; PULSE 84
== END 2024-09-06 19:04 | disposition home or self-care (01) ==
LOC: FBCO 18:09 → FBC 18:09
PROVIDERS: PCP Family Medicine; Visit Provider Obstetrics & Gynecology
DX: O09.523 Supervision of elderly multigravida, third trimester (principal)
CPT/HCPCS: 59025

== ENCOUNTER 2024-09-09 19:07 | Outpatient (OUT) | payer OTHER, SELFPAY ==
--- OUTSIDE RECORDS SUMMARY | 2024-09-09 19:10 | XMS_ITS | CCD ---
Author Organization [facility] Care Team Providers Care Touch Up Painter Name Role Phone DOREEN, DR HOFFMAN Attending Unavailable DARWIN, DR JEN Ramirez Primary Care Unavailable DOREEN, DR HOFFMAN Admitting Unavailable DOREEN, DR HOFFMAN Consulting Unavailable GARY, DR PAUL Admitting Unavailable GARY, DR PAUL Consulting Unavailable GARY, DR PAUL Attending Unavailable DARWIN, DR JEN Ramirez Primary Care Unavailable Scooby Vega Attending Provider Jen Granados MD Primary Care Provider [phone] SHIN, ASHLEY K Attending Unavailable JEN GRANADOS Referring Unavailable JEN GRANADOS Primary Care Unavailable ALEIDA, ASHLEY K Attending Unavailable JEN GRANADOS Referring Unavailable JEN GRANADOS Primary Care Unavailable Jen Granados MD Primary Care Provider Jae Cervantes DO Attending Provider Unavailab Jae Redd Admitting Unavailable Jae Cervantes Attending Unavailable Jen Granados Primary Care Unavailable Gary Scooby Admitting Unavailable Gary, Scooby Attending Unavailable GARY, SCOOBY Attending Unavailable GARY, SCOOBY Attending Unavailable GARY, SCOOBY Attending Unavailable GARY, SCOOBY Attending Unavailable GARY, SCOOBY Attending Unavailable EMELY HUNTER Attending Unavailable MORENO [...] Translations: [AMOXICILLIN] Drug Allergy 3 GI intolerance [facility] (3 sources) 12 Hour Decongestant Allergy to substance 3 Hives [facility] Medications Current Medications Medication Drug [...] 02/12/2024 Discontinued (Other) omega-3 acid ethyl esters (skilled nursing) 1000 mg oral capsule (6 sources) take [...] Negative Negative - 4(70) +++ mg/dL [facility] Blood, UA Negative Negative - 50 Ulises/mcL [facility] Clarity, UA Clear [facility] Color, UA Yellow [facility] Glucose, UA Negative Negative - 2000(110) ++++ mg/dL [facility] Interpretation and review of laboratory results Abnormal [facility] Ketones, UA Negative Negative - 160(16) ++++ mg/dL [facility] Leukocytes, UA Trace Negative - 500+++ Clari/mcL [facility] Nitrite, UA Negative Negative - Positive [facility] pH, UA 7 5 - 9 [facility] Protein, UA Negative Negative - 1999(20) ++++ mg/dL [facility] Spec Grav, UA 1.015 1 - 1.03 [facility] Urobilinogen, UA 0.2 0.2 - 12 mg/dL [facility] US OB BPP W NON-STRESS on 08-20-2024 [place] [address] Ultrasound Report Signed Patient: RAPHAEL ELIZABETH MR#: [id number] : 1985 Acct:[id number] Age/Sex: 38 / F ADM Date: 08/19/24 Loc: US Attending Dr: Scooby Vega D.O. Ordering Physician: Scooby Vega D.O. Date of Service: 08/19/24 Procedure(s): US OB BPP w non-stress Accession Number(s): [id number] cc: Jen Granados M.D.; Scooby Vega D.O. [address] [address] Patient Name: RAPHAEL ELIZABETH MRN: [id number] date: 1985 Sex: F Assigned Patient Location: [facility] Current Patient Location: Accession/Order Number: [id number] Exam Date: 08/20/2024 08:58 Report Date: 08/20/2024 [...] Chan Hudson M.D.08/20/2024 9:03 AM Dictation Location: [place] [address] Electronically authenticated by: [id number] Y Date: 08/20/2024 09:03 Dictated By: Chan Hudson M.D. Signed By: 08/20/24904 DD/ 2 TD/TT: Pumping Station Supervisor: [facility] Radiology, Radiologi MD wilmer - 08/20/2024 [place] [address] Ultrasound Report Signed Patient: RAPHAEL ELIZABETH MR#: [id number] : 1985 Acct:[id number] Age/Sex: 38 / F ADM Date: 08/19/24 Loc: US Attending Dr: Scooby Vega D.O. Ordering Physician: Scooby Vega D.O. Date of Service: 08/19/24 Procedure(s): US OB BPP w non-stress Accession Number(s): [id number] cc: Jen Granados M.D.; Scooby Vega D.O. The [address] [address] Patient Name: RAPHAEL ELIZABETH MRN: [facility]:[id number] date: 1985 Sex: F Assigned Patient Location: [facility] Current Patient Location: Accession/Order Number: [id number] Exam Date: 08/20/2024 08:58 Report Date: 08/20/2024 [...] Chan Hudson M.D.08/20/2024 9:03 AM Dictation Location: [place] Electronically authenticated by: [id number] Y Date: 08/20/2024 09:03 Dictated By: Chan Hudson M.D. Signed By: 08/20/24904 DD/ 2 TD/TT: Pumping Station Supervisor: [facility] Radiology Study observation (narrative) [facility] OB BPP W NON-STRESS Ordered By: Radiologist Radiology on 08-20-2024 [facility] Work Phone: Urinalysis macro (dipstick) panel (U)on 08-18-2024 Bilirubin, UA Negative Negative - 4(70) +++ mg/dL [facility] Blood, UA Negative Negative - 50 Ulises/mcL [facility] Clarity, UA Clear [facility] Color, UA Yellow [facility] Glucose, UA Negative Negative - 2000(110) ++++ mg/dL [facility] Interpretation and review of laboratory results Abnormal [facility] Ketones, UA Negative Negative - 160(16) ++++ mg/dL [facility] Leukocytes, UA Negative Negative - 500+++ Clair/mcL [facility] Nitrite, UA Negative Negative - Positive [facility] pH, UA 7 5 - 9 [facility] Protein, UA Trace Negative - 2000(20) ++++ mg/dL [facility] Spec Grav, UA 1.025 1 - 1.03 [facility] Urobilinogen, UA 0.2 0.2 - 12 mg/dL [facility] US OB BPP W NON-STRESS on 08-12-2024 The [place] [id number] Ultrasound Report Signed Patient: RAPHAEL ELIZABETH MR#: [id number] : 1985 Acct:[id number] Age/Sex: 38 / F ADM Date: 08/12/24 Loc: US Attending Dr: Scooby Vega D.O. Ordering Physician: Scooby Vega D.O. Date of Service: 08/12/24 Procedure(s): US OB BPP w non-stress Accession Number(s): [id number] cc: Jen Granados M.D.; Scooby Vega D.O. The [address] [address] Patient Name: RAPHAEL ELIZABETH MRN: [facility]:[id number] date: 1985 Sex: F Assigned Patient Location: [facility] Current Patient Location: Accession/Order Number: [id number] Exam Date: 08/12/2024 22:10 Report Date: 08/12/2024 22:12 At the request of: SCOOBY VEGA DO Procedure: US OB BPP w non-stress Biophysical profile. Reason for exam: GBM. COMPARISON: Biophysical profile 08/06/2024. TECHNIQUE: Transabdominal imaging of the gravid uterus was obtained. FINDINGS: Pipe Machine Operator reports the BPP is 8 out of 8. SIDDHARTHA is normal 11.2 cm. heart rate 142 bpm. US/US OB BPP w non-stress IMPRESSION: BPP 8 out of 8. Impression dictated by: Lucas Martin Jr., D.O.08/12/2024 10:12 PM Dictation Location: [place] [address] Electronically authenticated by: [id number] Y Date: 08/12/2024 22:12 Dictated By: Lucas Martin M.D. Signed By: 08/12/242213 DD/ 11 TD/TT: Pumping Station Supervisor: [facility] RadiologyCorneliusogdora guillen MD - 08/12/2024 The [place] [id number] Ultrasound Report Signed Patient: RAPHAEL ELIZABETH MR#: [id number] : 1985 Acct:[id number] Age/Sex: 38 / F ADM Date: 08/12/24 Loc: US Attending Dr: Scooby Vega D.O. Ordering Physician: Scooby Vega D.O. Date of Service: 08/12/24 Procedure(s): US OB BPP w non-stress Accession Number(s): [id number] cc: Jen Granados M.D.; Scooby Vega D.O. [place] [address] Patient Name: RAPHAEL ELIZABETH MRN: [id number] date: 1985 Sex: F Assigned Patient Location: [facility] Current Patient Location: Accession/Order Number: [id number] Exam Date: 08/12/2024 22:10 Report Date: 08/12/2024 22:12 At the request of: SCOOBY VEGA DO Procedure: US OB BPP w non-stress Biophysical profile. Reason for exam: GBM. COMPARISON: Biophysical profile 08/06/2024. TECHNIQUE: Transabdominal imaging of the gravid uterus was obtained. FINDINGS: Pipe Machine Operator reports the BPP is 8 out of 8. SIDDHARTHA is normal 11.2 cm. heart rate 142 bpm. US/US OB BPP w non-stress IMPRESSION: BPP 8 out of 8. Impression dictated by: Lucas Martin Jr., D.O.08/12/2024 10:12 PM Dictation [facility] Electronically authenticated by: [id number] Y Date: 08/12/2024 22:12 Dictated By: Lucas Martin M.D. Signed By: 08/12/242213 DD/ 11 TD/TT: Pumping Station Supervisor: [facility] Radiology Study observation (narrative) [facility] US OB BPP W NON-STRESS Ordered By: Radiologist Radiology on 08-12-2024 [facility] Work Phone: US OB BPP W NON-STRESS on 08-06-[address] [address] Ultrasound Report Signed Patient: RAPHAEL ELIZABETH MR#: [id number] : 1985 Acct:[id number] Age/Sex: 38 / F ADM Date: 08/05/24 Loc: US Attending Dr: Scooby Vega D.O. Ordering Physician: Scooby Vega D.O. Date of Service: 08/05/24 Procedure(s): US OB BPP w non-stress Accession Number(s): [id number] cc: Jen Granados M.D.; Scooby Vega D.O. The [place] [address] Patient Name: RAPHAEL ELIZABETH MRN: [facility]:[id number] date: 1985 Sex: F Assigned Patient Location: [facility] Current Patient Location: Accession/Order Number: [id number] Exam Date: 08/05/2024 19:09 Report Date: 08/06/2024 [...] Signed By: 08/06/24 0753 DD/ 0751 TD/TT: Pumping Station Supervisor: [facility] Radiology, Radiologi MD wilmer - 08/06/[address] [address] Ultrasound Report Signed Patient: RAPHAEL ELIZABETH MR#: [id number] : 1985 Acct:[id number] Age/Sex: 38 / F ADM Date: 08/05/24 Loc: US Attending Dr: Scooby Vega D.O. Ordering Physician: Scooby Vega D.O. Date of Service: 08/05/24 Procedure(s): US OB BPP w non-stress Accession Number(s): [id number] cc: Jen Granados M.D.; Scooby Vega D.O. The [place] [id number] Patient Name: RAPHAEL ELIZABETH MRN: [id number]:[id number] date: 1985 Sex: F Assigned Patient Location: [facility] Current Patient Location: Accession/Order Number: [id number] Exam Date: 08/05/2024 19:09 Report Date: 08/06/2024 [...] Signed By: 08/06/24 0753 DD/ 0751 TD/TT: Pumping Station Supervisor: [facility] Radiology Study observation (narrative) [facility] US OB BPP W NON-STRESS Ordered By: Radiologist Radiology on 08-06-2024 [facility] Work Phone: US OB BPP W NON-STRESS on 08-01-2024 [place] [address] Ultrasound Report Signed Patient: RAPHAEL ELIZABETH MR#: [id number] : 1985 Acct:[id number] Age/Sex: 38 / F ADM Date: 07/29/24 Loc: US Attending Dr: Scooby Vega D.O. Ordering Physician: Scooby Vega D.O. Date of Service: 07/29/24 Procedure(s): US OB BPP w non-stress Accession Number(s): [id number] cc: Jen Granados M.D.; Scooby Vega D.O. [place] [id number] Patient Name: RAPHAEL ELIZABETH MRN: [facility]:[id number] date: 1985 Sex: F Assigned Patient Location: [facility] Current Patient Location: Accession/Order Number: [id number] Exam Date: 07/29/2024 19:04 Report Date: 08/01/2024 [...] M.D. Signed By: 08/01/24713 DD/ 0 TD/TT: Pumping Station Supervisor: [facility] Radiology, Radiologi MD wilmer - 08/01/2024 [place] [address] Ultrasound Report Signed Patient: RAPHAEL ELIZABETH MR#: [id number] : 1985 Acct:[id number] Age/Sex: 38 / F ADM Date: 07/29/24 Loc: US Attending Dr: Scooby Vega D.O. Ordering Physician: Scooby Vega D.O. Date of Service: 07/29/24 Procedure(s): US OB BPP w non-stress Accession Number(s): [id number] cc: Jen Granados M.D.; Scooby Vega D.O. The [place] [address] Patient Name: RAPHAEL ELIZABETH MRN: [id number]:[id number] date: 1985 Sex: F Assigned Patient Location: [facility] Current Patient Location: Accession/Order Number: [id number] Exam Date: 07/29/2024 19:04 Report Date: 08/01/2024 [...] M.D. Signed By: 08/01/24713 DD/ 0 TD/TT: Pumping Station Supervisor: [facility] Radiology Study observation (narrative) [facility] US OB BPP W NON-STRESS Ordered By: Radiologist Radiology on 08-01-2024 [facility] Work Phone: Urinalysis macro (dipstick) panel (U)on 08-01-2024 Bilirubin, UA Negative Negative - 4(70) +++ mg/dL [facility] Blood, UA Negative Negative - 50 Ulises/mcL [facility] Clarity, UA Clear [facility] Color, UA Yellow [facility] Glucose, UA Negative Negative - 1999(110) ++++ mg/dL [facility] Interpretation and review of laboratory results Abnormal [facility] Ketones, UA Negative Negative - 160(16) ++++ mg/dL [facility] Leukocytes, UA Trace Negative - 500+++ Clair/mcL [facility] Nitrite, UA Negative Negative - Positive [facility] pH, UA 7.5 5 - 9 [facility] Protein, UA Negative Negative - 1999(20) ++++ mg/dL [facility] Spec Grav, UA 1.015 1 - 1.03 [facility] Urobilinogen, UA 0.2 0.2 - 12 mg/dL [facility] Urinalysis macro (dipstick) panel (U)on 07-18-2024 Bilirubin, UA Negative Negative - 4(70) +++ mg/dL [facility] Blood, UA Negative Negative - 50 Ulises/mcL [facility] Clarity, UA Clear [facility] Color, UA Yellow [facility] Glucose, UA Negative Negative - 1999(110) ++++ mg/dL [facility] Interpretation and review of laboratory results Normal [facility] Ketones, UA Negative Negative - 160(16) ++++ mg/dL [facility] Leukocytes, UA Negative Negative - 500+++ Clair/mcL [facility] Nitrite, UA Negative Negative - Positive [facility] pH, UA 7 5 - 9 [facility] Protein, UA Negative Negative - 1999(20) ++++ mg/dL [facility] Spec Grav, UA 1.025 1 - 1.03 [facility] Urobilinogen, UA 0.2 0.2 - 12 mg/dL [facility] ALL CBC WITH AUTO DIFFon BASOPHILS ABSOLUTE AUTO 0 [facility] Basophils/100 WBC (Bld) 0.2 % 0.2 - 2.0 % [facility] Eosinophils/100 WBC (Bld) 0.9 % 0.9 - 7.0 % [facility] Erythrocyte distribution width (RBC) [Ratio] 13 % 11.0 - 15.0 % [facility] Hematocrit (Bld) [Volume fraction] 32.2 % Low 36.0 - 48.0 % [facility] Hemoglobin (Bld) [Mass/Vol] 10.9 g/dL Low 12.0 - 16.0 g/dL [facility] IMMATURE GRANULOCYTES ABS AUTO 0.13 High [facility] Immature granulocytes/100 WBC (Bld) 1.4 % High 0.0 - 0.5 % [facility] Interpretation and review of laboratory results Abnormal [facility] LYMPHOCYTES ABSOLUTE AUTO 1.4 [facility] Lymphocytes/100 WBC (Bld) 15.4 % Low 20.5 - 60.0 % [facility] MCH (RBC) [Entitic mass] 32.7 pg 26.7 - 34.0 pg [facility] MCHC (RBC) [Mass/Vol] 33.9 g/dL 29.9 - 35.2 g/dL [facility] MCV (RBC) [Entitic vol] 96.7 fL 81.0 - 99.0 fL [facility] MONOCYTES ABSOLUTE AUTO 0.5 [facility] Monocytes/100 WBC (Bld) 4.8 % 1.7 - 12.0 % [facility] NEUTROPHILS ABSOLUTE AUTO 7.2 High [facility] Neutrophils/100 WBC (Bld) 77.3 % High 43.0 - 75.0 % [facility] Platelet mean volume (Bld) [Entitic vol] 9.2 fL Low 9.5 - 13.5 fL [facility] TBH EO # 0.1 [facility] TB PLT 229 [facility] RBC 3.33 Low [facility] WBC 9.3 [facility]IN[facility] Urinalysis macro (dipstick) panel (U)on 06-30-2024 Bilirubin, UA Negative Negative - 4(70) +++ mg/dL [facility] Blood, UA Negative Negative - 50 Ulises/mcL [facility] Clarity, UA Clear [facility] Color, UA Yellow [facility] Glucose, UA Negative Negative - 2000(110) ++++ mg/dL [facility] Interpretation and review of laboratory results Abnormal [facility] Ketones, UA Negative Negative - 160(16) ++++ mg/dL [facility] Leukocytes, UA Trace Negative - 500+++ Clair/mcL [facility] Nitrite, UA Negative Negative - Positive [facility] pH, UA 8.5 5 - 9 [facility] Protein, UA Positive Negative - 2000(20) ++++ mg/dL [facility] Comment on above: trace Spec Grav, UA 1.015 1 - 1.03 [facility] Urobilinogen, UA 0.2 0.2 - 12 mg/dL [facility] Basophils/100 WBC Manual cnt (Bld)on 06-25-2024 Basophils/100 WBC (Bld) Basophils/100 leukocytes in Blood by Manual count Low 0.2-2.0 [facility] Eosinophils/100 WBC Manual c nt (Bld)on 06-25-2024 Eosinophils/100 WBC (Bld) Eosinophils/100 leukocytes in Blood by Manual count 0.9-7.0 [facility] Erythrocyte distribution wid th Auto (RBC) [Ratio]on 06-25-2024 Erythrocyte distribution width (RBC) [Ratio] Erythrocyte distribution width [Ratio] by Automated count 11.0-15.0 [facility] Estimated glomerular filtrat ion rate (GFR) non- Americanon 06-25-2024 GFR/1.73 sq M.predicted among non-blacks MDRD (S/P/Bld) [Vol rate/Area] Estimated glomerular filtration rate (GFR) non- >=60 mL/min/1.73 m 2 [facility] Hematocrit Auto (Bld) [Volum e fraction]on 06-25-2024 Hematocrit (Bld) [Volume fraction] Hematocrit [Volume Fraction] of Blood by Automated count Low 36.0-48.0 [facility] Hemoglobin [Mass/volume] in Bloodon 06-25-2024 Hemoglobin (Bld) [Mass/Vol] Hemoglobin [Mass/volume] in Blood Low 12.0-16.0 [facility] Laboratory - Chemistry and C hemistry - challengeon 06-25-2024 Calcium [Mass/Vol] 8.2 mg/dL Low 8.5-10.1 [facility] Chloride [Moles/Vol] 99 mmol/L 98-107 [facility] CO2 [Moles/Vol] 21.2 mmol/L 21.0-32.0 [facility] Creatinine [Mass/Vol] 0.89 mg/dL 0.55-1.02 [facility] GFR/1.73 sq M.predicted MDRD (S/P/Bld) [Vol rate/Area] mL/min/{1.73_m2} >=60 mL/min/1.73 m 2 [facility] Glucose [Mass/Vol] 98 mg/dL 74-106 [facility] Potassium [Moles/Vol] 3.7 mmol/L 3.5-5.1 [facility] Sodium [Moles/Vol] 130 mmol/L Low 136-145 [facility] Urea nitrogen [Mass/Vol] 7.0 mg/dL 7.0-18.0 [facility] Urea nitrogen/Creatinine [Mass ratio] 7.9 mg/mg [facility] Bilirubin Ql (U) Negative NEGATIVE [facility] Glucose (U) [Mass/Vol] Negative NEGATIVE [facility] Ketones Ql (U) 15 mg/dL Abnormal NEGATIVE [facility] pH (U) 7.5 [pH] 5.0-9.0 [facility] Specific gravity (U) [Rel density] 1.015 1.005-1.025 [facility] Urobilinogen Qn (U) 1.0 {Ree'U}/dL 0.2-1.0 [facility] Laboratory - Hematology and Cell countson 06-25-2024 Band form neutrophils/100 WBC (Bld) 2.0 % 0-5 [facility] Lymphocytes/100 WBC (Bld) 2.0 % Low 20.5-60.0 [facility] Monocytes/100 WBC (Bld) 5.0 % 1.7-12.0 [facility] Laboratory - Microbiology an d Antimicrobial susceptibilityon 06-25-2024 SARS-CoV-2 (COVID-19) RNA JUAN ANTONIO+probe Ql (Unsp spec) Negative NEGATIVE [facility] Comment on above: This test [...] ationon 06-25-2024 Appearance (U) CLOUDY Abnormal CLEAR [facility] Color (U) DK YELLOW YELLOW [facility] Laboratory - Urinalysison Leukocyte esterase Test strip Ql (U) Negative NEGATIVE [facility] Nitrite Ql (U) Negative NEGATIVE [facility] Protein Ql (U) TRACE mg/dL NEG/TRACE [facility] Leukocytes [#/volume] correc leroy for nucleated erythrocytes in Blood by Automated counon 06-25-2024 WBC corrected for nucl RBC Auto (Bld) [#/Vol] Leukocytes [#/volume] corrected for nucleated erythrocytes in Blood by Automated coun 4.0-11.0 [facility] MCH Auto (RBC) [Entitic mass ]on 06-25-2024 MCH (RBC) [Entitic mass] MCH [Entitic mass] by Automated count 26.7-34.0 [facility] MCHC Auto (RBC) [Mass/Vol]on 06-25-2024 MCHC (RBC) [Mass/Vol] MCHC [Mass/volume] by Automated count 29.9-35.2 [facility] MCV Auto (RBC) [Entitic vol] on 06-25-2024 MCV (RBC) [Entitic vol] MCV [Entitic volume] by Automated count 81.0-99.0 [facility] No Panel Informationon 06-25 Absolute Basophils (Manual) 0.00 10 3/uL 0.00-0.10 [facility] Band Neutrophils # (Manual) 0.2 10 3/uL 0.0-0.3 [facility] Eosinophils # (Manual) 0.08 10 3/uL 0.00-0.70 [facility] Lymphocytes # (Manual) 0.16 10 3/uL Low 1.20-3.80 [facility] Monocytes # (Manual) 0.41 10 3/uL 0.30-0.80 [facility] Segmented Neutrophils # (Manual) 7.38 10 3/uL High 1.4-6.5 [facility] Urine Occult Blood Negative NEGATIVE [facility] Bedside Influenza Type A Antigen Positive Abnormal [facility] Comment on above: NOTE: Live attenuate d influenza vaccine viruses can cause apositive result for a rapid influenza diagnostic test ifadministered up to 7 days prior to rapid testing. Bedside Influenza Type B Antigen Negative [facility] Comment on above: Negative for Flu B p rotein antigen. Infection due to Flu Bcannot be ruled out. Flu B antigen in the sample may bebelow the detection limit of the test. Platelet mean volume Auto (B ld) [Entitic vol]on 06-25-2024 Platelet mean volume (Bld) [Entitic vol] Platelet mean volume [Entitic volume] in Blood by Automated count Low 9.5-13.5 [facility] Platelets Auto (Bld) [#/Vol] on 06-25-2024 Platelets (Bld) [#/Vol] Platelets [#/volume] in Blood by Automated count 150-450 [facility] RBC Auto (Bld) [#/Vol]on RBC (Bld) [#/Vol] Erythrocytes [#/volu me] in Blood by Automated count Low 4.20-5.40 [facility] Segmented neutrophils/100 WB C Manual cnt (Bld)on 06-25-2024 Segmented neutrophils/100 WBC (Bld) Manual blood segmented neutrophils/100 leukocytes High 43.0-75.0 [facility] Serum or plasma anion gap de terminationon 06-25-2024 Anion gap [Moles/Vol] Serum or plasma anion gap determination [facility] Urine Cultureon 06-25-2024 Bacteria identified Cx Nom (U) No Growth 2 Days PERFORMED BY: [facility] [address] [place] [address] PATHOLOGIST AUTOMOBI[employer] GLASS TECHNICIAN DANTE PALACIOS M.D. Normal [facility] Comment on above: Performed By: #### C UU #### [facility] [address] IGP,APTIMA HPV,AGE GDLNon AGE GDLN ACOG TESTING Note . [facility] Comment on above: TESTS RESULT FLAG UN ITS REF RANGE LAB Clinician Provided Cytology Information Source.............Cervix No. of containers..01 ThinPrep Vial Age Algo ACOG Annel... FLAG LEGEND: L-Low Normal,H-High Normal,LL-Alert Low,HH-Alert High <-Panic Low,>-Panic High,A-Abnormal,AA-Critical Abnormal Performed at: 01 =[address] [address] Kathryn Maldonado MD, HPV APTIMA Negative Negative [facility] Comment on above: This nucleic acid am plification test detects fourteen high- risk HPV types (16,18,31,33,35,39,45,51,52,56,58,59,66,68) without differentiation. Performed at: =[address] [id number] Administrative Coordinator: Kathryn Maldonado MD, Phone: [phone] Performed at: [address] [id number] Administrative Coordinator: Kathryn Maldonado MD, Phone: [phone] IGP, APTIMA HPV, RFX 16/18,45 Note . [facility] Comment on above: TESTS RESULT FLAG UN ITS REF RANGE LAB DIAGNOSIS: 02 NEGATIVE FOR INTRAEPITHELIAL LESION OR MALIGNANCY. Specimen adequacy: 02 Satisfactory for evaluation. Endocervical and/or squamous metaplastic cells (endocervical component) are present. Performed by: 02 Thao Shankar Major Gifts Officer . 02 Note: Note 02 The Pap [...] High,A-Abnormal,AA-Critical Abnormal Performed at: 02 [address] [facility] [address] [address] Kathryn Maldonado MD, BRUSH-SPATULA CERVIX [facility] RECURRENT VAGINITIS (HTRX)on 05-05-2024 ATOPOBIUM VAGINAE 0 [facility] ATOPOBIUM VAGINAE Not detected [facility] BVAB 2,3 (BACTERIAL VAGINOSIS ASSOCIATED BACTERIA 2, 3); MOBILUNCUS SPP 0 [facility] BVAB 2,3 (BACTERIAL VAGINOSIS ASSOCIATED BACTERIA 2, 3); MOBILUNCUS SPP Not detected [facility] JED ALBICANS, PARAPSILOSIS, TROPICALIS 0 [facility] JED ALBICANS, PARAPSILOSIS, TROPICALIS Not detected [facility] JED GLABRATA 0 [facility] JED GLABRATA Not detected [facility] JED KRUSEI 0 [facility] JED KRUSEI Not detected [facility] CHLAMYDIA TRACHOMATIS 0 [facility] CHLAMYDIA TRACHOMATIS Not detected [facility] GARDNERELLA VAGINALIS 0 [facility] GARDNERELLA VAGINALIS Not detected [facility] MEGASPHAERA (TYPES 1, 2) 0 [facility] MEGASPHAERA (TYPES 1, 2) Not detected [facility] MYCOPLASMA GENITALIUM 0 [facility] MYCOPLASMA GENITALIUM Not detected [facility] NEISSERIA GONORRHOEAE 0 [facility] NEISSERIA GONORRHOEAE Not detected [facility] TRICHOMONAS VAGINALIS 0 [facility] TRICHOMONAS VAGINALIS Not detected [facility] Urinalysis macro (dipstick) panel (U)on 05-03-2024 Bilirubin, UA Negative Negative - 4(70) +++ mg/dL [facility] Blood, UA Negative Negative - 50 Ulises/mcL [facility] Clarity, UA Clear [facility] Color, UA Yellow [facility] Glucose, UA Negative Negative - 1999(110) ++++ mg/dL [facility] Interpretation and review of laboratory results Normal [facility] Ketones, UA Negative Negative - 160(16) ++++ mg/dL [facility] Leukocytes, UA Negative Negative - 500+++ Clair/mcL [facility] Nitrite, UA Negative Negative - Positive [facility] pH, UA 0.5 5 - 9 [facility] Protein, UA Negative Negative - 1999(20) ++++ mg/dL [facility] Spec Grav, UA 1.025 1 - 1.03 [facility] Urobilinogen, UA 1.0 0.2 - 12 mg/dL [facility] Human papilloma virus 16+18+ 31+33+35+39+45+51+52+56+58+59+66+68 DNA [Presence] in Denis 05-02-2024 HPV 16+18+31+33+35+39+4 5+51+52+56+58+59+66 +68 DNA Probe+sig amp Ql (Cvx) Human papilloma virus 16+18+31+33+35+39+45+51+52+5 6+58+59+66+68 DNA [Presence] in Cer Negative [facility] Comment on above: This nucleic acid am plification test detects fourteen high- risk HPV types (16,18,31,33,35,39,45,51,52,56,58,59,66,68)without differentiation.Performed at: =G - [facility] [address] [id number] Director: Kathryn Maldonado MD, Phone: [phone] at: - [facility] [address], [place] [id number] Director: Kathryn Maldonado MD, Phone: [phone] No Panel Informationon 05-02 HPV High Risk Other Comment Note . [facility] Comment on above: TESTS RESULT FLAG UN ITS REF RANGE LAB JESE GNOSIS: 02 NEGATIVE FOR INTRAEPITHELIAL LESION OR MALIGNANCY.Specimen adequacy: 02 Satisfactory for evaluation. Endocervical and/or squamous metaplastic cells (endocervical component) are present.Performed by: 02 Thao Shankar, Major Gifts Officer. 02Note: Note 02 The Pap smear is [...] Low,>-Panic High,A-Abnormal,AA-Critical Abnormal --Performed at:02 WB [facility] [place] [address] [facility] [place] [facility] [place] [address] Kathryn Maldonado MD, Reference Lab Test Patient Age Note . [facility] Comment on above: TESTS RESULT FLAG UN ITS REF RANGE LAB Clinician Provided Cytology Information Source.............Cervix No. of containers..01 ThinPrep VialAge Radhao TOMMY Annel... FLAG LEGEND: L-Low Normal,H-High Normal,LL-Alert Low,HH-Alert High <-Panic Low,>-Panic High,A-Abnormal,AA-Critical Abnormal --Performed at:01 =G [facility] [place] [address] [facility] [place] [facility] [place] [address] Kathryn Maldonado MD, AFP, SERUM, OPEN SPINA BIFID Aon 05-01-2024 AFP MOM 1.18 . [facility] AFP VALUE 61.8 ng/mL . [facility] COMMENT: Comment . [facility] Comment on above: Cydney Rodriguez , Ph.D., [facility] Director References: Available Upon Request. Multiples Of Median Cutoffs For AFP Elevations Chiang 2.5 Black 2.8 IDD 2.0 Twins 4.5 Abbreviation Definitions IDD - Insulin Dep Diabetes OSBR - Open Spina Bifida Risk For further inquiries contact [facility] at [phone]. This test was developed and its performance characteristics determined by [employer]. It has not been cleared or approved by the Food and Drug Administration. Performed at: [facility] [employer] [address] [place], [place] [id number] Administrative Coordinator: Marissa Kovacs [facility], Phone: [phone] GEST. AGE ON COLLECTION DATE 19.0 . weeks [facility] GESTAT. AGE BASED ON LMP . [facility] Comment on above: Recalculations are n ot recommended when gestational dating by LMP and ultrasound are within 10 days. INSULIN DEP DIABETES No . [facility] INTERPRETATION Comment . [facility] Comment on above: Interpretation: Scre en [...] Customer Services to discuss available options. The [employer] [place] [employer] recommends amniocentesis be offered to women age 35 and older. [age] [facility] MULTIPLE GESTATION No . [facility] OSBR RISK 1 IN 6916 . [facility] RACE . [facility] RESULTS Report . [facility] TEST RESULTS: Negative . [facility] WEIGHT 135 . lbs [facility] N N LMP [id number] 3 15 N 1 Y 135 N N N N N White/ [facility] Alpha-fetoprotein (AFP) paige urement (mhmmgatp-kv-whrfqe)on 04-29-2024 AFP [MoM] Alpha-fetoprotein (A FP) measurement (fuxrqnam-hj-gpoowv) . [facility] Assess gestational ageon Gestational age Assess gestational age . [facility] Estimation of maternal age-s pecific risk of Down syndrome birthon 04-29-2024 Age [Time] Estimation of matern al age-specific risk of Down syndrome . [facility] Insulin dependent diabetes m ellitus detectionon 04-29-2024 Insulin dependent diabetes mellitus Ql Insulin dependent diabetes mellitus detection . [facility] Interpretation of serum or p lasma second trimester quad maternal screen (narrative reon 04-29-2024 Second trimester quad maternal screen Darshan [Interp] Interpretation of serum or plasma second trimester quad maternal screen (narrative re . [facility] Comment on above: Interpretation: Scre [...] 04-29 AFP Triple Screen Comment Comment . [facility] Comment on above: Cydney Rodriguez , Ph.D., DABCCDirectorReferences: Available Upon Request.Multiples Of Median Cutoffs For AFP ElevationsSingleton 2.5 Black 2.8IDD 2.0 Twins 4.5 Abbreviation DefinitionsIDD - Insulin Dep DiabetesOSBR - Open Spina Bifida RiskFor further inquiries contact [facility] at [phone].This test was developed and its performance characteristicsdetermined by [employer]. It has not been cleared or approvedby the Food and Drug Administration.Performed at: [facility] [employer] [id number] [place], [place] [id number] Director: Marissa Kovacs [facility], Phone: [phone] Alpha Fetoprotein Results Received Report . [facility] Gestational Age Calculation Method LMP . [facility] Comment on above: Recalculations are n ot recommended when gestational datingby LMP and ultrasound are within 10 days. Maternal Quad Test Risk 6916 . [facility] Maternal Race . [facility] Multiple No . [facility] Serum or plasma nvzuv-8-xqcd protein measurement (mass/volume)on 04-29-2024 AFP [Mass/Vol] Serum or plasma bhgkn-0-rdolgsldfmv measurement (mass/volume) . [facility] BOX TEST SENT OUTon BOX TEST SENT OUT Y [facility] ALL CBC WITH AUTO DIFFon BASOPHILS ABSOLUTE AUTO 0.0 [facility] Basophils/100 WBC (Bld) 0.5 % 0.2 - 2.0 % [facility] Eosinophils/100 WBC (Bld) 0.9 % 0.9 - 7.0 % [facility] Erythrocyte distribution width (RBC) [Ratio] 11.9 % 11.0 - 15.0 % [facility] Hematocrit (Bld) [Volume fraction] 37.3 % 36.0 - 48.0 % [facility] Hemoglobin (Bld) [Mass/Vol] 12.7 g/dL 12.0 - 16.0 g/dL [facility] IMMATURE GRANULOCYTES ABS AUTO 0.02 [facility] Immature granulocytes/100 WBC (Bld) 0.3 % 0.0 - 0.5 % [facility] Interpretation and review of laboratory results Abnormal [facility] LYMPHOCYTES ABSOLUTE AUTO 1.8 [facility] Lymphocytes/100 WBC (Bld) 27.4 % 20.5 - 60.0 % [facility] MCH (RBC) [Entitic mass] 32.2 pg 26.7 - 34.0 pg [facility] MCHC (RBC) [Mass/Vol] 34.0 g/dL 29.9 - 35.2 g/dL [facility] MCV (RBC) [Entitic vol] 94.4 fL 81.0 - 99.0 fL [facility] MONOCYTES ABSOLUTE AUTO 0.3 [facility] Monocytes/100 WBC (Bld) 5.1 % 1.7 - 12.0 % [facility] NEUTROPHILS ABSOLUTE AUTO 4.4 [facility] Neutrophils/100 WBC (Bld) 65.8 % 43.0 - 75.0 % [facility] Platelet mean volume (Bld) [Entitic vol] 9.4 fL Low 9.5 - 13.5 fL [facility] EO # 0.1 [facility] PLT 215 [facility] RBC 3.95 Low [facility] WBC 6.6 [facility] HCG ( test) Ql (U)o n 02-12-2024 Interpretation and review of laboratory results Abnormal [facility] Preg Test, Ur Positive [facility] Urinalysis macro (dipstick) panel (U)on 02-12-2024 Bilirubin, UA Negative Negative - 4(70) +++ mg/dL [facility] Blood, UA Negative Negative - 50 Ulises/mcL [facility] Clarity, UA Clear [facility] Color, UA Yellow [facility] Glucose, UA Negative Negative - 1999(110) ++++ mg/dL [facility] Interpretation and review of laboratory results Normal [facility] Ketones, UA Negative Negative - 160(16) ++++ mg/dL [facility] Leukocytes, UA Negative Negative - 500+++ Clair/mcL [facility] Nitrite, UA Negative Negative - Positive [facility] pH, UA 6.5 5 - 9 [facility] Protein, UA Negative Negative - 1999(20) ++++ mg/dL [facility] Spec Grav, UA 1.015 1 - 1.03 [facility] Urobilinogen, UA 1.0 0.2 - 12 mg/dL [facility] No Panel Informationon 11-29 Human Chorionic Gonadotropin, Quant 2 mIU/mL [facility] Comment on above: 5-50 0.2-1 GDIL54-21 0 1-2 FXJWG643-6,000 2-3 FURQQ224-97,000 3-4 WEEKS1,000-50,000 4-5 WEEKS10,000-100,000 5-6 WEEKS15,000-200,000 6-8 WEEKS10,000-100,000 2-3 MONTHS No Panel Informationon 11-22 Human Chorionic Gonadotropin, Quant 3 mIU/mL [facility] Comment on above: 5-50 0.2-1 JKRA32-96 0 1-2 AWVQO913-0,000 2-3 XVWGT787-56,000 3-4 WEEKS1,000-50,000 4-5 WEEKS10,000-100,000 5-6 WEEKS15,000-200,000 6-8 WEEKS10,000-100,000 2-3 MONTHS No Panel Informationon 11-16 Human Chorionic Gonadotropin, Quant 6 mIU/mL [facility] Comment on above: 5-50 0.2-1 LDOU42-08 0 1-2 ZALUF079-4,000 2-3 STHMT968-04,000 3-4 WEEKS1,000-50,000 4-5 WEEKS10,000-100,000 5-6 WEEKS15,000-200,000 6-8 WEEKS10,000-100,000 2-3 MONTHS No Panel Informationon 11-08 Human Chorionic Gonadotropin, Quant 27 mIU/mL [facility] Comment on above: 5-50 0.2-1 OZKQ29-06 0 1-2 MPNNO980-2,000 2-3 XEWSX429-01,000 3-4 WEEKS1,000-50,000 4-5 WEEKS10,000-100,000 5-6 WEEKS15,000-200,000 6-8 WEEKS10,000-100,000 2-3 MONTHS Basophils Auto (Bld) [#/Vol] on 10-23-2023 Basophils (Bld) [#/Vol] 0.0 10 3/uL 0.0-0.1 [facility] Basophils/100 WBC Auto (Bld) on 10-23-2023 Basophils/100 WBC (Bld) 0.8 % 0.2-2.0 [facility] Eosinophils/100 WBC Auto (Bl d)on 10-23-2023 Eosinophils/100 WBC (Bld) 1.4 % 0.9-7.0 [facility] Erythrocyte distribution wid th Auto (RBC) [Ratio]on 10-23-2023 Erythrocyte distribution width (RBC) [Ratio] 11.9 % 11.0-15.0 [facility] Hematocrit Auto (Bld) [Volum e fraction]on 10-23-2023 Hematocrit (Bld) [Volume fraction] 36.0 % 36.0-48.0 [facility] Hemoglobin [Mass/volume] in Bloodon 10-23-2023 Hemoglobin (Bld) [Mass/Vol] 11.8 g/dL 12.0-16.0 [facility] Krzysztof 10-23-2023 L Specimen: [id number] R eceived: 10/26/23 Status: MAIA Newell Num: [id number] Spec Type: Surgical Subm Dr: Scooby Vega Tissues: A Products of Conception - Spontaneous or Missed (POC) Procedures: HE/3, Gross/Micro L4 Age/ Patient Sex Location Account Attending Physician GlennRaphael 37/F [facility] [id number] Scooby Vega SPEC NUM: [id number] RECD: 10/26/23 STATUS: MAIA NEWELL NUM: [id number] JANIE: 10/23/[address]: Scooby Vega ENTERED: 10/26/[address] [facility] [address]: Owen,Lab SPEC TYPE: Surgical [...] cm possible area of villous tissue identified. Flume Worker sections to include the possible villous tissue are submitted in A1?A3. Clinical history: Missed CPT Codes 39901 -------- -------- Specimen: [id number] Received: 10/26/23-1306 Status: MAIA Newell Num: [id number] Spec Type: Surgical Subm Dr: Scooby Vega Tissues: A Products of Conception - Spontaneous or Missed (POC) Procedures: HE/3, Gross/Micro L4 -------- Patient: Raphael Elizabeth [id number] (Continued) -------- Signed (signature on file) Dante Palacios MD 10/27/23 1511 Normal [facility] - Hematology and Cell countson 10-23-2023 Immature granulocytes/100 WBC (Bld) 0.2 % 0.0-0.5 [facility] Leukocytes [#/volume] correc leroy for nucleated erythrocytes in Blood by Automated counon 10-23-2023 WBC corrected for nucl RBC Auto (Bld) [#/Vol] 5.1 10 3/uL 4.0-11.0 [facility] Lymphocytes Auto (Bld) [#/Vo l]on 10-23-2023 Lymphocytes (Bld) [#/Vol] 1.7 10 3/uL 1.2-3.8 [facility] Lymphocytes/100 WBC Auto (Bl d)on 10-23-2023 Lymphocytes/100 WBC (Bld) 32.8 % 20.5-60.0 [facility] MCH Auto (RBC) [Entitic mass ]on 10-23-2023 MCH (RBC) [Entitic mass] 31.1 pg 26.7-34.0 [facility] MCHC Auto (RBC) [Mass/Vol]on 10-23-2023 MCHC (RBC) [Mass/Vol] 32.8 g/dL 29.9-35.2 [facility] MCV Auto (RBC) [Entitic vol] on 10-23-2023 MCV (RBC) [Entitic vol] 95.0 fL 81.0-99.0 [facility] Monocytes Auto (Bld) [#/Vol] on 10-23-2023 Monocytes (Bld) [#/Vol] 0.3 10 3/uL 0.3-0.8 [facility] Monocytes/100 WBC Auto (Bld) on 10-23-2023 Monocytes/100 WBC (Bld) 5.5 % 1.7-12.0 [facility] Neutrophils Auto (Bld) [#/Vo l]on 10-23-2023 Neutrophils (Bld) [#/Vol] 3.0 10 3/uL 1.4-6.5 [facility] Neutrophils/100 WBC Auto (Bl d)on 10-23-2023 Neutrophils/100 WBC (Bld) 59.3 % 43.0-75.0 [facility] No Panel Informationon 10-22 Eosinophils # (Auto) 0.1 10 3/uL 0.0-0.7 [facility] Immature Granulocyte # (Auto) 0.01 10 3/uL 0.00-0.03 [facility] Platelet mean volume Auto (B ld) [Entitic vol]on 10-23-2023 Platelet mean volume (Bld) [Entitic vol] 9.0 fL 9.5-13.5 [facility] Platelets Auto (Bld) [#/Vol] on 10-23-2023 Platelets (Bld) [#/Vol] 182 10 3/uL 150-450 [facility] RBC Auto (Bld) [#/Vol]on RBC (Bld) [#/Vol] 3.79 10 6/uL 4.20-5.40 [facility] No Panel Informationon 10-11 Human Chorionic Gonadotropin, Quant 69809 mIU/mL [facility] Comment on above: 5-50 0.2-1 IVML64-65 0 1-2 CGWRO933-8,000 2-3 AACAO199-85,000 3-4 WEEKS1,000-50,000 4-5 WEEKS10,000-100,000 5-6 WEEKS15,000-200,000 6-8 WEEKS10,000-100,000 2-3 MONTHS No Panel Informationon 10-06 Human Chorionic Gonadotropin, Quant 97278 mIU/mL [facility] Comment on above: 5-50 0.2-1 EMGE25-29 0 1-2 FNLCG252-1,000 2-3 JLUSU263-99,000 3-4 WEEKS1,000-50,000 4-5 WEEKS10,000-100,000 5-6 WEEKS15,000-200,000 6-8 WEEKS10,000-100,000 2-3 MONTHS No Panel Informationon 10-04 Human Chorionic Gonadotropin, Quant 61726 mIU/mL [facility] Comment on above: 5-50 0.2-1 TSDH53-29 0 1-2 MQZEJ075-5,000 2-3 XJIAG270-34,000 3-4 WEEKS1,000-50,000 4-5 WEEKS10,000-100,000 5-6 WEEKS15,000-200,000 6-8 WEEKS10,000-100,000 2-3 MONTHS PAP ACOG PANEL 2: 30 to 65on 03-11-2022 . . Normal [facility] Comment on above: Result Comment: Perf ormed at: WB Performed By: #### [id number] #### [facility] [address] [address] [address] Danni Jacobs Age Gdln ACOG Testing 30-65 Normal [facility] Comment on above: Performed By: #### [id number] #### [facility] [address] [address] [address] Danni Jacobs DIAGNOSIS: Comment Normal [facility] Comment on above: Result Comment: NEGA TIVE FOR INTRAEPITHELIAL LESION OR MALIGNANCY. THIS SPECIMEN WAS RESCREENED PART OF OUR STATISTICIAN PROGRAM. Performed at: WB Performed By: #### [id number] #### [facility] [address] [place] [address] Dr. Danni Jacobs HPV Aptima Negative Normal Negative [facility] Comment on above: Result Comment: This nucleic acid amplification test detects fourteen high-risk HPV types (16,18,31,33,35,39,45,51,52,56,58,59,66,68) without differentiation. Performed at: =G Performed By: #### [id number] #### [facility] [address] [place] [address] Dr. Danni Jacobs Methodology: Comment Normal [facility] Comment on above: Result Comment: This liquid based ThinPrep(R) pap test was screened with the use of an image guided system. Performed at: WB Performed By: #### [id number] #### [facility] [address] [place] [address] Dr. Danni Jacobs Note: Comment Normal [facility] Comment on above: Result Comment: The Pap smear is a screening test designed to aid in the detection of premalignant and malignant conditions of the uterine cervix. It is not a diagnostic procedure and should not be used as the sole means of detecting cervical cancer. Both false-positive and false-negative reports do occur. . Performed at: WB Performed By: #### [id number] #### [facility] [address] [place] [address] Dr. Danni Jacobs Performed by: Comment Normal [facility] Comment on above: Result Comment: Rocky Hull, Major Gifts Officer (ASCP) Performed at: WB Performed By: #### 4 [id number] #### [facility] [address] [place] [address] Dr. Danni Jacobs QC reviewed by: Comment Normal [facility] Comment on above: Result Comment: Betzaida Ge, Supervisory Major Gifts Officer (ASCP) Performed at: WB Performed By: #### [id number] #### [facility] [address] [place] [address] Dr. Danni Jacobs Specimen adequacy: Comment Normal [facility] Comment on above: Result Comment: Sati sfactory for evaluation. Endocervical and/or squamous metaplastic cells (endocervical component) are present. Performed at: WB Performed By: #### 4 [id number] #### [facility] [address] [address] [address] Danni Jacobs GLUCOSE BLOODon 04-22-2021 Glucose [Mass/Vol] 99 mg/dL Normal 74-106 [facility] Comment on above: Performed By: #### G YOSEPH, LIPID #### [facility] [address] [address] [address] Danni Jacobs LIPID PROFILEon 04-22-2021 CHOL-HDL RATIO NORM SEE BELOW Normal [facility] Comment on above: Result Comment: 3.3 - 4.4 LOW RISK 4.4 - 7.1 AVERAGE RISK 7.1 - 11.0 MODERATE RISK >11.0 HIGH RISK Performed By: #### G YOSEPH, LIPID #### [facility] [address] [address] [address] Danni Jacobs Cholesterol [Mass/Vol] 157 mg/dL Normal <=200 [facility] Comment on above: Performed By: #### G YOSEPH, LIPID #### [facility] [address] [address] [address] Danni Jacobs Cholesterol in HDL [Mass/Vol] 74 mg/dL Normal [facility] Comment on above: Performed By: #### G YOSEPH, LIPID #### [facility] [address] [address] [address] Danni Jacobs Cholesterol in LDL [Mass/Vol] 71.2 mg/dL Normal [facility] Comment on above: Performed By: #### G YOSEPH, LIPID #### [facility] [address] [address] [address] Danni Jacobs Cholesterol.total/C holesterol in HDL [Mass ratio] 2.1 {ratio} Normal [facility] Comment on above: Performed By: #### G YOSEPH, LIPID #### [facility] [address] [address] [address] Danni Jacobs HDL NORMAL > or = 60 mg/dl - LO W CARDIOVASCULAR RISK <40 mg/dl - HIGH CARDIOVASCULAR RISK Normal [facility] Comment on above: Performed By: #### G YOSEPH, LIPID #### [facility] [address] [address] [address] Danni Jacobs LDL CALC NORMAL SEE BELOW Normal [facility] Comment on above: Result Comment: <100 mg/dl OPTIMAL 100 - 129 mg/dl NEAR OR ABOVE OPTIMAL 130 - 159 mg/dl BORDERLINE HIGH 160 - 189 mg/dl HIGH >190 mg/dl VERY HIGH Performed By: #### G YOSEPH, LIPID #### [facility] [address] [place], [place] [address] Dr. Danni Jacobs Triglyceride [Mass/Vol] 59 mg/dL Normal <=150 [facility] Comment on above: Performed By: #### G YOSEPH, LIPID #### [facility] [address] [address] [address] Danni Jacobs VLDL CALC 11.8 mg/dL Normal [facility] Comment on above: Performed By: #### G YOSEPH, LIPID #### [facility] [address] [address] [address] Danni Jacobs Vital Signs Date Time Vital Sign Value Performing Clinician Philippe mera 08-24-2024 13:51-0500 Body mass index (BMI) [Ratio] 24.18 kg/m2 Scooby Gary DO Work Phone: [facility] 08-24-2024 13:51-0500 Body weight 70.03 kg Scooby Gary DO Work Phone: [facility] 08-24-2024 13:51-0500 Diastolic blood pressure 68 mm[Hg] Scooby Gary DO Work Phone: [facility] 08-24-2024 13:51-0500 Systolic blood pressure 112 mm[Hg] Scooby Gary DO Work Phone: [facility] 08-18-2024 09:28-0500 Body mass index (BMI) [Ratio] 23.62 kg/m2 Scooby Gary DO Work Phone: [facility] 08-18-2024 09:28-0500 Body weight 68.4 kg Scooby Gary DO Work Phone: [facility] 08-18-2024 09:28-0500 Diastolic blood pressure 72 mm[Hg] Scooby Gary DO Work Phone: [facility] 08-18-2024 09:28-0500 Systolic blood pressure 110 mm[Hg] Scooby Gary DO Work Phone: [facility] 08-01-2024 13:55-0500 Body mass index (BMI) [Ratio] 22.87 kg/m2 Scooby Gary DO Work Phone: [facility] 08-01-2024 13:55-0500 Body weight 66.22 kg Scooby Gary DO Work Phone: [facility] 08-01-2024 13:55-0500 Diastolic blood pressure 74 mm[Hg] Scooby Gary DO Work Phone: [facility] 08-01-2024 13:55-0500 Systolic blood pressure 116 mm[Hg] Scooby Gary DO Work Phone: [facility] 07-18-2024 15:05-0500 Body mass index (BMI) [Ratio] 22.84 kg/m2 Scooby Gary DO Work Phone: [facility] 07-18-2024 15:05-0500 Body weight 66.13 kg Scooby Gary DO Work Phone: [facility] 07-18-2024 15:05-0500 Diastolic blood pressure 70 mm[Hg] Scooby Gary DO Work Phone: [facility] 07-18-2024 15:05-0500 Systolic blood pressure 118 mm[Hg] Scooby Gary DO Work Phone: [facility] 06-30-2024 12:01-0500 Body mass index (BMI) [Ratio] 22.26 kg/m2 Scooby Gary DO Work Phone: [facility] 06-30-2024 12:01-0500 Body weight 64.47 kg Scooby Gary DO Work Phone: [facility] 06-30-2024 12:01-0500 Diastolic blood pressure 70 mm[Hg] Socoby Gary DO Work Phone: [facility] 06-30-2024 12:01-0500 Systolic blood pressure 110 mm[Hg] Scooby Gary DO Work Phone: [facility] 06-02-2024 10:45-0500 Body mass index (BMI) [Ratio] 21.9 kg/m2 Scooby Gary DO Work Phone: [facility] 06-02-2024 10:45-0500 Body weight 63.41 kg Scooby Gary DO Work Phone: [facility] 06-02-2024 10:45-0500 Diastolic blood pressure 72 mm[Hg] Scooby Gary DO Work Phone: [facility] 06-02-2024 10:45-0500 Systolic blood pressure 116 mm[Hg] Scooby Gary DO Work Phone: [facility] 05-02-2024 16:20-0500 Body mass index (BMI) [Ratio] 21.61 kg/m2 Emely COBB Work Phone: [facility] 05-02-2024 16:20-0500 Body weight 62.6 kg Emely COBB Work Phone: [facility] 05-02-2024 16:20-0500 Diastolic blood pressure 68 mm[Hg] Emely COBB Work Phone: [facility] 05-02-2024 16:20-0500 Systolic blood pressure 120 mm[Hg] Emely COBB Work Phone: [facility] 04-29-2024 11:40-0500 Body weight Jen Granados MD Work Phone: [facility] 04-04-2024 14:55-0400 Body mass index (BMI) [Ratio] 21.27 kg/m2 Scooby Gary DO Work Phone: [facility] 04-04-2024 14:55-0400 Body weight 61.6 kg Scooby Gary DO Work Phone: [facility] 04-04-2024 14:55-0400 Diastolic blood pressure 70 mm[Hg] Scooby Gary DO Work Phone: [facility] 04-04-2024 14:55-0400 Systolic blood pressure 116 mm[Hg] Scooby Gary DO Work Phone: [facility] 03-07-2024 10:47-0400 Body mass index (BMI) [Ratio] 20.07 kg/m2 Scooby Gary DO Work Phone: [facility] 03-07-2024 10:47-0400 Body weight 58.12 kg Scooby Gary DO Work Phone: [facility] 03-07-2024 10:47-0400 Diastolic blood pressure 68 mm[Hg] Scooby Gary DO Work Phone: [facility] 03-07-2024 10:47-0400 Systolic blood pressure 114 mm[Hg] Scooby Gary DO Work Phone: [facility] 12-01-2023 16:10-0400 Body height 170.18 cm Scooby Gary Work Phone: [facility] 12-01-2023 16:10-0400 Body mass index (BMI) [Ratio] 19.5 kg/m2 Scooby Gary Work Phone: [facility] 12-01-2023 16:10-0400 Body weight 56.69 kg Scooby Gary Work Phone: [facility] 12-01-2023 16:10-0400 Diastolic blood pressure 78 mm[Hg] Scooby Gary Work Phone: [facility] 12-01-2023 16:10-0400 Systolic blood pressure 112 mm[Hg] Scooby Gary Work Phone: [facility] Encounters Encounter Date Encounter Type Care Provider Facility Start: 09-05-2024 End: 09-05-2024 ambulatory SCOOBY GARY Not Available Start: 08-24-2024 End: 08-24-2024 Bamboo flowsheet Scooby [...] 06-25-2024 ambulatory Jen Granados MD Work Phone: [facility] Work Phone: Start: 06-25-2024 End: 06-25-2024 Departed Referred Jen Granados MD Work Phone: [facility] Start: 06-25-2024 Non-patient / Non-visit Jen Granados MD [facility] Phone[facility] Work Phone: Start: 06-02-2024 End: 06-02-2024 Bamboo flowsheet Scooby Gary DO Work Phone: [facility] Start: 06-02-2024 End: 06-02-2024 Bamboo flowsheet Scooby Gary DO Work Phone: [facility] Start: 06-02-2024 End: 06-02-2024 ambulatory SCOOBY GARY Not Available Start: 06-02-2024 End: 06-02-2024 flow sheet Scooby Gary DO Work Phone: [facility] Comment on above: Second trimester pre gnancy; 23 weeks gestation of ; with normal glucose tolerance test (GTT); Diabetes mellitus screening; Gestational diabetes mellitus (GDM), antepartum, gestational diabetes method of control unspecified; Elevated glucose tolerance test Start: 05-02-2024 Non-patient / Non-visit Jen Granados MD Work Phone: [facility] Work Phone: Start: 05-02-2024 End: 05-02-2024 ambulatory EMELY HUNTER Not Available Start: 05-02-2024 End: 05-02-2024 Patient encounter procedure Emely COBB Work Phone: [facility] Work Phone: Start: 05-02-2024 End: 05-02-2024 flow sheet Emely COBB Work Phone: [facility] Comment on above: Well woman exam with routine gynecological exam; Second trimester ; 19 weeks gestation of ; Vaginal discharge; STD exposure; Screening, , for anatomic survey Start: 05-02-2024 End: 05-02-2024 Bamboo flowsheet Emely COBB Work Phone: [facility] Start: 05-02-2024 End: 05-10-2024 Bamboo flowsheet Emely COBB Work Phone: [facility] Start: 05-02-2024 End: 05-10-2024 Clinisync Result Encounter Emely COBB Work Phone: [facility] Unsolicited Start: 05-02-2024 End: 05-05-2024 External Result Encounter Emely COBB Work Phone: [facility] Unsolicited Start: 04-29-2024 End: 05-01-2024 Clinisync Result Encounter Scooby Vega DO Work Phone: [facility] Unsolicited Start: 04-29-2024 End: 05-01-2024 Clinisync Result Encounter Scooby Fragosoo DO Work Phone: [facility] Unsolicited Start: 04-29-2024 Non-patient / Non-visit Jen Granados MD Work Phone: [facility] Work Phone: Start: 04-04-2024 End: 04-04-2024 flow sheet Scooby Fragosoo DO Work Phone: [facility] Comment on above: Second trimester pre gnancy; Screening, , for anatomic survey; with 15 completed weeks gestation Start: 04-04-2024 End: 04-04-2024 ambulatory SCOOBY VEGA Not Available Start: 04-04-2024 End: 04-04-2024 Bamboo flowsheet Scooby Fragosoo DO Work Phone: [facility] Start: 04-04-2024 End: 04-04-2024 Bamboo flowsheet Scooby Gary DO Work Phone: [facility] Start: 04-04-2024 End: 04-04-2024 ambulatory [facility] Start: 04-01-2024 End: 04-01-2024 [...] CI PT Start: 02-08-2024 End: 02-08-2024 ambulatory ASHLEY K [facility] Start: 02-08-2024 ambulatory ASHLEY [facility] Start: 12-01-2023 End: 12-01-2023 ambulatory Scooby Gary Work Phone: [facility] Work Phone: Start: 12-01-2023 End: 12-01-2023 Patient encounter procedure Scooby Gary Work Phone: [facility] Work Phone: Start: 11-30-2023 Non-patient / Non-visit Scooby Gary Work Phone: [facility] Work Phone: Start: 11-23-2023 Non-patient / Non-visit Scooby Gary Work Phone: [facility] Work Phone: Start: 11-17-2023 Non-patient / Non-visit Scooby Gary Work Phone: [facility] Work Phone: Start: 11-09-2023 Non-patient / Non-visit Scooby Gary Work Phone: [facility] Work Phone: Start: 11-09-2023 End: 11-09-2023 ambulatory EMELY HUNTER Not Available Start: 10-23-2023 End: 10-23-2023 ambulatory Scooby Gary [facility] Work Phone: Start: 10-23-2023 End: 10-23-2023 Departed Referred Scooby Gary Work Phone: [facility] Start: 10-23-2023 Non-patient / Non-visit Scooby Gary Work Phone: [facility] Work Phone: Start: 10-12-2023 Non-patient / Non-visit Scooby Fragosoo Work Phone: [facility] Work Phone: Start: 10-07-2023 Non-patient / Non-visit Scooby Gary Work Phone: [facility] Work Phone: Start: 10-05-2023 Non-patient / Non-visit Scooby Gary Work Phone: [facility] Work Phone: Start: 03-03-2022 End: 03-03-[address] SCOOBY VEGA Facility:[facility] Start: 04-28-2021 Encounter for genera l adult medical examination without abnormal findings DR DALTON LOGAN [facility] Start: 04-22-2021 End: 04-23-[address] [...] AM EDT Routine [facility] [address] [facility] [place] [address] Scooby Vega, DO [address] [place] [address] [facility] Start: 09-05-2024 End: 09-05-2024 Patient encounter procedure 09/05/2024 1:30 PM EDT Routine [facility] [address] [place] [phone] Scooby Vega, DO [address] [place] [address] [facility] Start: 08-24-2024 End: 08-24-2025 CULTURE, GROUP B STREP WITH SUSCEPTIBLITY CULTURE, GROUP B STREP WITH SUSCEPTIBLITY Lab Routine Third trimester Expected: 08/24/2024, Expires: 08/24/2025 [facility] Work Phone: Comment on above: Expected: 08/24/2024 , Expires: 08/24/2025 Start: 08-24-2024 End: 08-24-2024 Patient encounter procedure 08/24/2024 1:20 PM EST Routine [facility] [address] [place] [address] Scooby Vega, DO [address] [place] [address] [facility] Start: 08-18-2024 End: 08-18-2025 US for US OB follow up transabdominal approach Imaging Routine Multigravida of advanced maternal age in third trimester Expected: 08/18/2024, Expires: 08/18/2025 [facility] Work Phone: Comment on above: Expected: 08/18/2024 , Expires: 08/18/2025 Start: 08-18-2024 End: 08-18-2024 Patient encounter procedure 08/18/2024 9:20 AM EST Routine [facility] [address] [place] [address] Scooby Vega, DO [address] [place] [address] [facility] Start: 08-01-2024 End: 08-01-2024 Patient encounter procedure 08/01/2024 1:20 PM EST Routine [facility] [address] [facility] [address] Scooby Vega, DO [address] [place] [address] [facility] Start: 07-18-2024 End: 07-18-2024 Patient encounter procedure 07/18/2024 2:30 PM EST Routine [facility] [address] [facility] [place] [phone] Scooby Vega, DO [address] [facility] [place] [address] [facility] Start: 07-18-2024 End: 07-18-2025 US biophysical profile w non stress test US biophysical profile w non stress test Imaging Routine 30 weeks gestation of Third trimester Expected: 07/18/2024 (Approximate), Expires: 07/18/2025 [facility] Work Phone: Comment on above: Expected: 07/18/2024 (Approximate), Expires: 07/18/2025 Start: 06-30-2024 End: 06-30-2025 US biophysical profile w non stress test US biophysical profile w non stress test Imaging Routine Gestational diabetes mellitus (GDM), antepartum, gestational diabetes method of control unspecified Expected: 06/30/2024 (Approximate), Expires: 06/30/2025 [facility] Comment on above: Expected: 06/30/2024 (Approximate), Expires: 06/30/2025 Start: 06-30-2024 End: 06-30-2025 US for US OB follow up transabdominal approach Imaging Routine Gestational diabetes mellitus (GDM), antepartum, gestational diabetes method of control unspecified Expected: 06/30/2024, Expires: 06/30/2025 [facility] Work Phone: Comment on above: Expected: 06/30/2024 , Expires: 06/30/2025 Start: 06-30-2024 End: 06-30-2024 Patient encounter procedure 06/30/2024 11:50 AM EST Routine [facility] [address] [facility] [place] [id number] Scooby Vega, DO [address] [place], [place] [id number] [facility] Start: 06-25-2024 Urine culture [facility] Start: 06-25-2024 Bacteria identified in Urine by Culture Urine Culture [facility] Start: 06-02-2024 End: 06-02-2025 CBC panel - Blood by Automated count CBC Lab Routine Diabetes mellitus screening Expected: 06/02/2024 (Approximate), Expires: 06/02/2025 [facility] Work Phone: Comment on above: Expected: 06/02/2024 (Approximate), Expires: 06/02/2025 Start: 06-02-2024 End: 06-02-2025 Measurement of glucose 1 hour after glucose challenge for glucose tolerance test Glucose tolerance, 1 hour Lab Routine Diabetes mellitus screening Expected: 06/02/2024 (Approximate), Expires: 06/02/2025 [facility] Comment on above: Expected: 06/02/2024 (Approximate), Expires: 06/02/2025 Start: 06-02-2024 End: 06-02-2024 Patient encounter procedure 06/02/2024 10:10 AM EST Routine [facility] [address] [place] [phone] Scooby Vega, DO [address] [place] [address] [facility] Start: 05-02-2024 End: 05-02-2024 Patient encounter procedure 05/02/2024 3:30 PM EST Routine [facility] [address] [place] [phone] Emely Hunter PA [address] [facility] [place] [address] [facility] Start: 05-02-2024 End: 10-30-2024 [...] EST Office Visit [facility] [address] [place] [phone] Scooby Vega DO [address] [facility] [place] [address] [facility] Start: 04-04-2024 End: 04-04-2024 [...] Treatment [facility] [address] [place] [address] Gretchen Moreno, PT [facility] Start: 03-23-2024 End: 03-23-2024 ambulatory 03/23/2024 1:00 PM EDT Treatment [facility] [address] [place] [address] Gretchen Moreno, PT [facility] Start: 03-18-2024 End: 03-18-2024 ambulatory 03/18/2024 1:30 PM EDT Treatment [facility] [address] [place] [address] Gretchen Moreno, PT [facility] Start: 03-11-2024 End: 03-11-2024 ambulatory 03/11/2024 1:30 PM EDT Treatment [facility] [address] [place] [address] Gretchen Moreno, PT [facility] Start: 03-07-2024 End: 03-07-2024 Patient encounter procedure 03/07/2024 10:10 AM EDT Routine [facility] [address] [place] [phone] Scooby Vega, DO [address] [facility] [place] [address] [facility] Start: 03-03-2024 End: 03-03-2024 ambulatory 03/03/2024 10:30 AM EDT Treatment [facility] [address] [place] [address] Gretchen Moreno, PT [facility] Start: 02-26-2024 End: 02-26-2024 ambulatory 02/26/2024 1:30 PM EDT Treatment [facility] [address] [place] [address] Gretchen Moreno, PT Arrived [facility] Comment on above: Arrived Start: 02-25-2024 End: 02-25-2024 ambulatory 02/25/2024 10:30 AM EDT Treatment [facility] [address] [place] [address] Gretchen Moreno, PT [facility] Start: 02-17-2024 End: 02-17-2024 ambulatory 02/17/2024 12:00 PM EDT Treatment [facility] [address] [place] [address] Gretchen Moreno, PT [facility] Start: [...] 10:30 AM EDT Initial [facility] [address] [place] [address] [place] [address] [facility] Start: 02-12-2024 End: 02-12-2024 Professional / ancillary services management 02/12/2024 10:00 AM EDT Ancillary Procedure [facility] [address] [facility] [place] [phone] [facility] Start: 02-10-2024 End: 02-10-2024 ambulatory 02/10/2024 5:00 PM EDT Evaluation [facility] [address] [place] [phone] Gretchen Moreno, PT Arrived [facility] Comment on above: Arrived Bacteria identified in Urine by Culture Urine culture Microbiology Routine Missed menses Ordered: 02/12/2024 [facility] Comment on above: Ordered: 02/12/2024 CBC W Auto Different ial panel - Blood CBC and differential Lab Routine Missed menses Ordered: 02/12/2024 [facility] Comment on above: Ordered: 02/12/2024 CHLAMYDIA TRACHOMATI S (GENITO/STI) CHLAMYDIA TRACHOMATIS (GENITO/STI) Lab Routine STD exposure Ordered: 05/02/2024 [facility] Comment on above: Ordered: 05/02/2024 Cytology Cervical or vaginal smear or scraping study Pap Smear Pathology and Cytology Routine Well woman exam with routine gynecological exam Ordered: 05/02/2024 [facility] Comment on above: Ordered: 05/02/2024 Hemoglobin A1c/Hemoglobin.total in Blood Hemoglobin A1c Lab Routine Missed menses Ordered: 02/12/2024 [facility] Comment on above: Ordered: 02/12/2024 Hepatitis B virus surface Ag [Presence] in Serum or Plasma by Immunoassay Hepatitis B surface antigen Lab Routine Missed menses Ordered: 02/12/2024 [facility] Comment on above: Ordered: 02/12/2024 Hepatitis C virus Ab [Presence] in Serum or Plasma by Immunoassay Hepatitis C antibody Lab Routine Missed menses Ordered: 02/12/2024 [facility] Comment on above: Ordered: 02/12/2024 HIV-1/HIV-2 antigen/antibody combination immunoassay HIV-1 and HIV-2 antibodies Lab Routine Missed menses Ordered: 02/12/2024 [facility] Comment on above: Ordered: 02/12/2024 Human papilloma viru s DNA [Presence] in Unspecified specimen by Probe with amplification HPV DNA probe, amplified Microbiology Routine Well woman exam with routine gynecological exam Ordered: 05/02/2024 [facility] Comment on above: Ordered: 05/02/2024 Neisseria gonorrhoea e DNA [Presence] in Unspecified specimen by JUAN ANTONIO with probe detection Neisseria gonorrhea DNA probe, direct Lab Routine STD exposure Ordered: 05/02/2024 [facility] Comment on above: Ordered: 05/02/2024 Reagin Ab [Presence] in Serum by RPR RPR Lab Routine Missed menses Ordered: 02/12/2024 [facility] Comment on above: Ordered: 02/12/2024 Rubella antibody, IgG Rubella an tibody, IgG Lab Routine Missed menses Ordered: 02/12/2024 [facility] Comment on above: Ordered: 02/12/2024 SURESWAB(R) ADVANCED VAGINITIS PLUS, TMA SURESWAB(R) ADVANCED VAGINITIS PLUS, TMA Pathology and Cytology Routine Vaginal discharge Ordered: 05/02/2024 [facility] Work Phone: Comment on above: Ordered: 05/02/2024 XR Hip - left 2 Views [facility] Payers Date Payer Category Payer Private Health Insurance ESTELA Decker [id number] 2022 Unknown NILAM JORGENSEN [id number] 2022-Present [phone] [address] [place] [id number] [id number] 1987 Unknown [id number] 2.16.840.1.501230.3.579.2 .593 1987 Unknown [id number] 2.16.840.1.836934.3.579.2 .593 1987 Unknown [id number] 2.16.840.1.806067.3.579.2 .1285 1987 Unknown [id number] 2.16.840.1.354351.3.579.2 .1285 1987 Unknown [id number] 2.16.840.1.547361.3.579.2 .1285 1987 Unknown [id number] 2.840.1.152859.3.579.2 .1258 1987 Unknown [id number] 2.840.1.337793.3.579.2 .1258 1987 Unknown [id number] 2.840.1.051948.3.579.2 .1258 1987 Unknown [id number] 2.840.1.343282.3.579.2 .1258 1987 Unknown [id number] 2.840.1.515524.3.579.2 .1258 1987 Unknown [id number] 2.16840.1.027431.3.579.2 .1258 1987 Unknown [id number] 2.840.1.319556.3.579.2 .1258 1987 Unknown [id number] 2.840.1.213845.3.579.2 .1258 1987 Unknown [id number] 2.16840.1.663374.3.579.2 .1258 1987 Unknown [id number] 2.840.1.763688.3.579.2 .1258 1987 Unknown [id number] 2.16840.1.335988.3.579.2 .1258 1987 Unknown [id number] 2.16.840.1.777818.3.579.2 .1258 1987 Unknown [id number] 2.16.840.1.269537.3.579.2 .1258 1987 Unknown [id number] 2.16.840.1.902440.3.579.2 .1258 1987 Unknown [id number] 2.16.840.1.076410.3.579.2 .1258 1987 Unknown [id number] 2.16.840.1.494292.3.579.2 .1258 1987 Unknown [id number] 2.16.840.1.339341.3.579.2 .1258 1987 Unknown [id number] 2.16.840.1.814569.3.579.2 .1258 1987 Unknown [id number] 2.16.840.1.777404.3.579.2 .1258 1987 Unknown [id number] 2.16.840.1.028927.3.579.2 .9 1959 Unknown [id number] Social History Date Type Detail Facility Tobacco smoking stat [facility] Unknown if ever smoked [facility] Work Phone: Start: 1985 Sex Assigned At Female F [facility] Start: 02-26-2023 [facility] Start: 11-09-2023 History of Social function [facility] Start: 11-09-2023 Tobacco use panel [facility] Start: 01-01-2024 [facility] Start: 1985 Sex assigned at Not on file [facility] Tobacco smoking stat [facility] Unknown if ever smoked [facility] Work Phone: Start: 06-27-2024 [facility]finding) [facility] Medical Equipment Procedure Code Equipment Code Equipment Origin al Text Equipment Identifier Dates 1 strip by In Vi tro route Daily Use in the morning prior to breakfast, 1 hour after each meal for a total of 4times daily. [id number] Start: 06-02-2024 End: 07-02-2024 1 each by In Vit ro route Daily Use to check FSBS four times daily [id number] Start: 06-02-2024 End: 07-02-2024 Goals Date Patient Goal Desired Activity /State Personal health goal Clinical Notes 02-10-2024 to 08-24-2024 Belle Villanueva, [facility] - 08/24/2024 1:20 PM ESTSusan Spitler, [facility] - 08/18/2024 9:20 AM ESTSusan Spitler, [facility] - 08/01/2024 1:20 PM ESTSusan Spitler, [facility] - 07/18/2024 2:30 PM EST Note Date [...] nursing note reviewed. Exam conducted with a construction management assistant present. Vitals: Estimated body mass index [...] Vega DO documented in this encounter [facility] 08-18-2024 History of Present illness Narrative [...] nursing note reviewed. Exam conducted with a construction management assistant present. Vitals: Estimated body mass index [...] Vega DO documented in this encounter [facility] 08-01-2024 History of Present illness Narrative [...] nursing note reviewed. Exam conducted with a construction management assistant present. Vitals: Estimated body mass index [...] Vega DO documented in this encounter [facility] 07-18-2024 History of Present illness Narrative [...] nursing note reviewed. Exam conducted with a construction management assistant present. Vitals: Estimated body mass index [...] Hunter PA-C documented in this encounter [facility] 06-30-2024 History of Present illness Narrative [...] Vega DO documented in this encounter [facility] 06-02-2024 History of Present illness Narrative [...] nursing note reviewed. Exam conducted with a construction management assistant present. Vitals: Estimated body mass index [...] Vega DO documented in this encounter [facility] 05-02-2024 History of Present illness Narrative [...] nursing note reviewed. Exam conducted with a construction management assistant present. Vitals: Estimated body mass index [...] obtained without difficulty and patient was given [facility] order to have obtained. Orders Placed This [...] JORDYN Fonseca documented in this encounter [facility] 04-04-2024 History of Present illness Narrative [...] nursing note reviewed. Exam conducted with a construction management assistant present. Vitals: Estimated body mass index [...] Aspirin. Discussed again in regards to seeing [facility] & referral will be completed. Patient to have NST/BPP starting at 32 weeks gestation. Patient will have Anatomy Scan done at [facility]. Patient is Rh Negative and [...] Vega DO documented in this encounter [facility] 04-01-2024 History of Present illness Narrative [...] and it pops a lot randomly. Precautions: [place] Subjective: Pt states overall, ROM has improved. [...] to be instructed in home exercise program. Mcc Goals: To be met in 10 weeks [...] below. Date: documented in this encounter [facility] 03-23-2024 History of Present illness Narrative [...] and it pops a lot randomly. Precautions: [place] Subjective: Pt states range of motion of [...] to be instructed in home exercise program. 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 Date: documented in this encounter [facility] 03-18-2024 History of Present illness Narrative [...] and it pops a lot randomly. Precautions: [place] Subjective: Pt states she feels like her [...] to be instructed in home exercise program. Mcc Goals: To be met in 10 weeks [...] below. Date: documented in this encounter [facility] 03-11-2024 History of Present illness Narrative [...] and it pops a lot randomly. Precautions: [place] Subjective: Pt states overall she believes hip [...] to be instructed in home exercise program. Mcc Goals: To be met in 10 weeks [...] below. Date: documented in this encounter [facility] 03-07-2024 History of Present illness Narrative [...] nursing note reviewed. Exam conducted with a construction management assistant present. Vitals: Estimated body mass index [...] Vega DO documented in this encounter [facility] 03-03-2024 History of Present illness Narrative [...] and it pops a lot randomly. Precautions: [place] Subjective: Pt states she has been doing [...] to be instructed in home exercise program. Mcc Goals: To be met in 10 weeks [...] below. Date: documented in this encounter [facility] 02-26-2024 History of Present illness Narrative [...] and it pops a lot randomly. Precautions: [place] Subjective: Pt states she was able to [...] to be instructed in home exercise program. 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 Date: documented in this encounter [facility] 02-17-2024 History of Present illness Narrative [...] and it pops a lot randomly. Precautions: [place] Subjective: Pt states she has not done [...] to be instructed in home exercise program. [facility] Goals: To be met in 10 weeks [...] below. Date: documented in this encounter [facility] 02-12-2024 History of Present illness Narrative [...] Cobb LPN documented in this encounter [facility] 02-10-2024 History of Present illness Narrative [...] and it pops a lot randomly. Precautions: [place] Subjective: left hip ant and lateral Pain: [...] to be instructed in home exercise program. 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 weeks [...] Evaluation note No assessment inform ation available [facility] Work Phone: Evaluation note Diagnosis Onset Date Left hip pain acute [facility] Work Phone: Evaluation note* Diagnosis Pain of [...] and content) DATE CREATED AUTHOR 03/22/2022 [facility] [place] [facility] DATE CREATED AUTHOR AUTHOR'S ORGANIZ ATION 04/05/2024 [facility] DATE CREATED AUTHOR AUTHOR'S ORGANIZ ATION 07/03/2024 [facility] DATE CREATED AUTHOR AUTHOR'S ORGANIZ ATION 09/07/2024 [facility] EPIC Care Teams (unrecognized sec [...] December 01, 2023 End: December 01, 2023 Touch Up Painter Relationship Specialty Start Date End Date Jen Granados MD [address] [facility] [place] [phone] PCP - General Family Medicine 03/10/23 Touch Up Painter Relationship Specialty Start Date End Date Jen Granados MD [address] [facility] [place] [phone] PCP - General Family Medicine 03/10/23 Touch Up Painter Relationship Specialty Start Date End Date Jen Granados MD [address] [facility] [place] [phone] PCP - General Family Medicine 03/10/23 Touch Up Painter Relationship Specialty Start Date End Date Jen Granados MD [address] [facility] [place] [phone] PCP - General Family Medicine 03/10/23 Touch Up Painter Relationship Specialty Start Date End Date Jen Granados MD [address] [facility] [place] [phone] PCP - General Family Medicine 03/10/23 Touch Up Painter Relationship Specialty Start Date End Date Jen Graandos MD [address] [facility] [place] [phone] PCP - General Family Medicine 03/10/23 Touch Up Painter Relationship Specialty Start Date End Date Jen Granados MD [address] [facility] [place] [address] PCP - General Family Medicine 03/10/23 Touch Up Painter Relationship Specialty Start Date End Date Jen Granados MD [address] [facility] [place] [address] PCP - General Family Medicine 03/10/23 Touch Up Painter Relationship Specialty Start Date End Date Jen Granados MD [address] [facility] [place] [address] PCP - General Family Medicine 03/10/23 Touch Up Painter Relationship Specialty Start Date End Date Jen Granados MD [address] [facility] [place] [address] PCP - General Family Medicine 03/10/23 Touch Up Painter Relationship Specialty Start Date End Date Jen Granados MD [address] [facility] [place] [address] PCP - General Family Medicine 03/10/23 Touch Up Painter Relationship Specialty Start Date End Date Jen Granados MD [address] [facility] [place] [address] PCP - General Family Medicine 03/10/23 Touch Up Painter Relationship Specialty Start Date End Date Jen Granados MD [address] [facility] [place] [address] PCP - General Family Medicine 03/10/23 Touch Up Painter Relationship Specialty Start Date End Date Jen Granados MD [address] [facility] [place] [address] PCP - General Family Medicine 03/10/23 Touch Up Painter Relationship Specialty Start Date End Date Jen Granados MD [address] [facility] [place] [phone] PCP - General Family Medicine 03/10/23 Team [...] June 25, 2024 End: June 25, 2024 Touch Up Painter Relationship Specialty Start Date End Date Jen Granados MD [address] [place] [phone] PCP - General Family Medicine 03/10/23 Touch Up Painter Relationship Specialty Start Date End Date Jen Granados MD [address] [facility] [place] [phone] PCP - General Family Medicine 03/10/23 Touch Up Painter Relationship Specialty Start Date End Date Jen Granados MD [address] [place] [phone] PCP - General Family Medicine 03/10/23 Touch Up Painter Relationship Specialty Start Date End Date Jen Granados MD [address] [place] [address] PCP - General Family Medicine 03/10/23 Touch Up Painter Relationship Specialty Start Date End Date Jen Granados MD [address] [place] [phone] PCP - General Family Medicine 03/10/23 Touch Up Painter Relationship Specialty Start Date End Date Jen Granados MD [address] [place] [address] PCP - General Family Medicine 03/10/23 Touch Up Painter Relationship Specialty Start Date End Date Jen Granados MD [address] [place] [address] PCP - General Family Medicine [...] of left lower limb, excluding foot Procedures [facility]ER[facility] EVALUATION LOW COMPLEX 20 MINS Ashley Shin MD [address] [place] [address] Gretchen Moreno PT Referral ID Status Reason Start Date Expiration Date V isits Requested Visits Authorized [id number] Authorized 02/10/2024 08/08/2024 99 [phone] Reason Comments [...] BE BASED ON THE PRIMARY CLINICAL RECORDS. [facility]. provides no warranty or guarantee of the accuracy or completeness of information in this document.
[2024-09-09 19:43] VITALS: BP 124/68; PULSE 88
== END 2024-09-09 20:03 | disposition home or self-care (01) ==
LOC: US 19:12 → FBC 19:15
PROVIDERS: PCP Family Medicine; Visit Provider Obstetrics & Gynecology
DX: O09.523 Supervision of elderly multigravida, third trimester (principal); Z3A.27 27 weeks gestation of pregnancy
CPT/HCPCS: 76818

== ENCOUNTER 2024-09-13 18:08 | Outpatient (OUT) | payer OTHER, SELFPAY ==
[2024-09-13 18:17] VITALS: BP 127/80; PULSE 84
--- OUTSIDE RECORDS SUMMARY | 2024-09-13 18:19 | XMS_ITS | CCD ---
Author Organization [facility] Care Team Providers Care Stripping Cutter And Winder Name Role Phone DOREEN, DR HOFFMAN Attending Unavailable DARWIN, DR JEN Ramirez Primary Care Unavailable DOREEN, DR HOFFMAN Admitting Unavailable DOREEN, DR HOFFMAN Consulting Unavailable GARY, DR PAUL Admitting Unavailable GARY, DR PAUL Consulting Unavailable GARY, DR PAUL Attending Unavailable DARWIN, DR JEN Ramirez Primary Care Unavailable GaryScooby khan Attending Provider Jen Granados MD Primary Care Provider [phone] ROCK, ASHLEY K Attending Unavailable JEN GRANADOS Referring Unavailable JEN GRANADOS Primary Care Unavailable ALEIDA, SAHLEY K Attending Unavailable JEN GRANADOS Referring Unavailable [...] Translations: [AMOXICILLIN] Drug Allergy 3 GI intolerance [facility] (3 sources) 12 Hour Decongestant Allergy to substance 3 Hives [facility] Medications Current Medications Medication Drug Class(es) [...] 02/12/2024 Discontinued (Other) omega-3 acid ethyl esters (long term) 1000 mg oral capsule (6 sources) take [...] UA Negative Negative - 4(70) +++ mg/dL [facility] Blood, UA Negative Negative - 50 Ulises/mcL [facility] Clarity, UA Clear [facility] Color, UA Yellow [facility] Glucose, UA Negative Negative - 2000(110) ++++ mg/dL [facility] Interpretation and review of laboratory results Abnormal [facility] Ketones, UA Negative Negative - 160(16) ++++ mg/dL [facility] Leukocytes, UA Trace Negative - 500+++ Clair/mcL [facility] Nitrite, UA Negative Negative - Positive [facility] pH, UA 7 5 - 9 [facility] Protein, UA Negative Negative - 2000(20) ++++ mg/dL [facility] Spec Grav, UA 1.015 1 - 1.03 [facility] Urobilinogen, UA 0.2 0.2 - 12 mg/dL [facility] US OB BPP W NON-STRESS on 08-20-2024 [place] [address] Ultrasound Report Signed Patient: RAPHAEL ELIZABETH MR#: [id number] : 1985 Acct:[id number] Age/Sex: 38 / F ADM Date: 08/19/24 Loc: US Attending Dr: Scooby Vega D.O. Ordering Physician: Scooby Vega D.O. Date of Service: 08/19/24 Procedure(s): US OB BPP w non-stress Accession Number(s): [id number] cc: Jen Granados M.D.; Scooby Vega D.O. [place] [phone] Patient Name: RAPHAEL ELIZABETH MRN: [facility]:[id number] date: 1985 Sex: F Assigned Patient Location: [facility] Current Patient Location: Accession/Order Number: [id number] Exam Date: 08/20/2024 08:58 Report Date: 08/20/2024 [...] Chan Hudson M.D.08/20/2024 9:03 AM Dictation Location: [place] [address] Electronically authenticated by: [id number] Y Date: 08/20/2024 09:03 Dictated By: Chan Hudson M.D. Signed By: 08/20/24904 DD/ 2 TD/TT: Business Banking Sales Assistant: [facility] Radiology, Radiologdora guillen MD - 08/20/2024 [place] [address] Ultrasound Report Signed Patient: RAPHAEL ELIZABETH MR#: [id number] : 1985 Acct:[id number] Age/Sex: 38 / F ADM Date: 08/19/24 Loc: US Attending Dr: Scooby Vega D.O. Ordering Physician: Scooby Vega D.O. Date of Service: 08/19/24 Procedure(s): US OB BPP w non-stress Accession Number(s): [id number] cc: Jen Granados M.D.; Scooby Vega D.O. The [place] [id number] Patient Name: RAPHAEL ELIZABETH MRN: [facility]:[id number] date: 1985 Sex: F Assigned Patient Location: [facility] Current Patient Location: Accession/Order Number: [id number] Exam Date: 08/20/2024 08:58 Report Date: 08/20/2024 [...] Chan Hudson M.D.08/20/2024 9:03 AM Dictation Location: [place] [address] Electronically authenticated by: [id number] Y Date: 08/20/2024 09:03 Dictated By: Chan Hudson M.D. Signed By: 08/20/24904 DD/ 2 TD/TT: Business Banking Sales Assistant: [facility] Radiology Study observation (narrative) [facility] US OB BPP W NON-STRESS Ordered By: Radiologist Radiology on 08-20-2024 [facility] Work Phone: Urinalysis macro (dipstick) panel (U)on 08-18-2024 Bilirubin, UA Negative Negative - 4(70) +++ mg/dL [facility] Blood, UA Negative Negative - 50 Ulises/mcL [facility] Clarity, UA Clear [facility] Color, UA Yellow [facility] Glucose, UA Negative Negative - 2000(110) ++++ mg/dL [facility] Interpretation and review of laboratory results Abnormal [facility] Ketones, UA Negative Negative - 160(16) ++++ mg/dL [facility] Leukocytes, UA Negative Negative - 500+++ Clair/mcL [facility] Nitrite, UA Negative Negative - Positive [facility] pH, UA 7 5 - 9 [facility] Protein, UA Trace Negative - 2000(20) ++++ mg/dL [facility] Spec Grav, UA 1.025 1 - 1.03 [facility] Urobilinogen, UA 0.2 0.2 - 12 mg/dL [facility] US OB BPP W NON-STRESS on 08-12-[address] [address] Ultrasound Report Signed Patient: RAPHAEL ELIZABETH MR#: [id number] : 1985 Acct:[id number] Age/Sex: 38 / F ADM Date: 08/12/24 Loc: US Attending Dr: Scooby Vega D.O. Ordering Physician: Scooby Vega D.O. Date of Service: 08/12/24 Procedure(s): US OB BPP w non-stress Accession Number(s): [id number] cc: Jen Granados M.D.; Scooby Vega D.O. The [address] [address] Patient Name: RAPHAEL ELIZABETH MRN: [facility]:[id number] date: 1985 Sex: F Assigned Patient Location: [facility] Current Patient Location: Accession/Order Number: [id number] Exam Date: 08/12/2024 22:10 Report Date: 08/12/2024 22:12 At the request of: SCOOBY VEGA DO Procedure: US OB BPP w non-stress Biophysical profile. Reason for exam: GBM. COMPARISON: Biophysical profile 08/06/2024. TECHNIQUE: Transabdominal imaging of the gravid uterus was obtained. FINDINGS: Production Operator reports the BPP is 8 out of 8. SIDDHARTHA is normal 11.2 cm. heart rate 142 bpm. US/US OB BPP w non-stress IMPRESSION: BPP 8 out of 8. Impression dictated by: Lucas Martin Jr., D.O.08/12/2024 10:12 PM Dictation Location: [place] [address] Electronically authenticated by: [id number] Y Date: 08/12/2024 22:12 Dictated By: Lucas Martin M.D. Signed By: 08/12/242213 DD/ 11 TD/TT: Business Banking Sales Assistant: [facility] Radiology, Radiologdora guillen MD - 08/12/2024 [place] [address] Ultrasound Report Signed Patient: RAPHAEL ELIZABETH MR#: [id number] : 1985 Acct:[id number] Age/Sex: 38 / F ADM Date: 08/12/24 Loc: US Attending Dr: Scooby Vega D.O. Ordering Physician: Scooby Vega D.O. Date of Service: 08/12/24 Procedure(s): US OB BPP w non-stress Accession Number(s): [id number] cc: Jen Granados M.D.; Scooby Vega D.O. [place] [address] Patient Name: RAPHAEL ELIZABETH MRN: [facility]:[id number] date: 1985 Sex: F Assigned Patient Location: [facility] Current Patient Location: Accession/Order Number: [id number] Exam Date: 08/12/2024 22:10 Report Date: 08/12/2024 22:12 At the request of: SCOOBY VEGA DO Procedure: US OB BPP w non-stress Biophysical profile. Reason for exam: GBM. COMPARISON: Biophysical profile 08/06/2024. TECHNIQUE: Transabdominal imaging of the gravid uterus was obtained. FINDINGS: Production Operator reports the BPP is 8 out of 8. SIDDHARTHA is normal 11.2 cm. heart rate 142 bpm. US/US OB BPP w non-stress IMPRESSION: BPP 8 out of 8. Impression dictated by: Lucas Martin Jr., D.O.08/12/2024 10:12 PM Dictation Location: [place] [address] Electronically authenticated by: [id number] Y Date: 08/12/2024 22:12 Dictated By: Lucas Martin M.D. Signed By: 08/12/242213 DD/ 11 TD/TT: Business Banking Sales Assistant: [facility] Radiology Study observation (narrative) [facility] US OB BPP W NON-STRESS Ordered By: Radiologist Radiology on 08-12-2024 [facility] Work Phone: US OB BPP W NON-STRESS on 08-06-[address] [address] Ultrasound Report Signed Patient: RAPHAEL ELIZABETH MR#: [id number] : 1985 Acct:[id number] Age/Sex: 38 / F ADM Date: 08/05/24 Loc: US Attending Dr: Scooby Vega D.O. Ordering Physician: Scooby Vega D.O. Date of Service: 08/05/24 Procedure(s): US OB BPP w non-stress Accession Number(s): [id number] cc: Jen Granados M.D.; Scooby Vega D.O. [place] [phone] Patient Name: RAPHAEL ELIZABETH MRN: [facility]:[id number] date: 1985 Sex: F Assigned Patient Location: [facility] Current Patient Location: Accession/Order Number: [id number] Exam Date: 08/05/2024 19:09 Report Date: 08/06/2024 [...] Signed By: 08/06/24 0753 DD/ 0751 TD/TT: Business Banking Sales Assistant: [facility] Radiology, Radiologi MD wilmer - 08/06/2024 [place] [address] Ultrasound Report Signed Patient: RAPHAEL ELIZABETH MR#: [id number] : 1985 Acct:[id number] Age/Sex: 38 / F ADM Date: 08/05/24 Loc: US Attending Dr: Scooby Vega D.O. Ordering Physician: Scooby Vega D.O. Date of Service: 08/05/24 Procedure(s): US OB BPP w non-stress Accession Number(s): [id number] cc: Jen Granados M.D.; Scooby Vega D.O. The [place] [phone] Patient Name: RAPHAEL ELIZABETH MRN: [facility]:[id number] date: 1985 Sex: F Assigned Patient Location: [facility] Current Patient Location: Accession/Order Number: [id number] Exam Date: 08/05/2024 19:09 Report Date: 08/06/2024 [...] Signed By: 08/06/24 0753 DD/ 075 TD/TT: Business Banking Sales Assistant: [facility] Radiology Study observation (narrative) [facility] US OB BPP W NON-STRESS Ordered By: Radiologist Radiology on 08-06-2024 [facility] Work Phone: US OB BPP W NON-STRESS on 08-01-2024 [place] [address] Ultrasound Report Signed Patient: RAPHAEL ELIZABETH MR#: [id number] : 1985 Acct:[id number] Age/Sex: 38 / F ADM Date: 07/29/24 Loc: US Attending Dr: Scooby Vega D.O. Ordering Physician: Scooby Vega D.O. Date of Service: 07/29/24 Procedure(s): US OB BPP w non-stress Accession Number(s): [id number] cc: Jen Granados M.D.; Scooby Vega D.O. [place] [phone] Patient Name: RAPHAEL ELIZABETH MRN: [facility]:[id number] date: 1985 Sex: F Assigned Patient Location: [facility] Current Patient Location: Accession/Order Number: [id number] Exam Date: 07/29/2024 19:04 Report Date: 08/01/2024 [...] M.D. Signed By: 08/01/24713 DD/ 0 TD/TT: Business Banking Sales Assistant: [facility] Radiology, Radiologi MD wilmer - 08/01/2024 [place] [address] Ultrasound Report Signed Patient: RAPHAEL ELIZABETH MR#: [id number] : 1985 Acct:[id number] Age/Sex: 38 / F ADM Date: 07/29/24 Loc: US Attending Dr: Scooby Vega D.O. Ordering Physician: Scooby Vega D.O. Date of Service: 07/29/24 Procedure(s): US OB BPP w non-stress Accession Number(s): [id number] cc: Jen Granados M.D.; Scooby Vega D.O. The [place] [address] Patient Name: RAPHAEL ELIZABETH MRN: [id number]:[id number] date: 1985 Sex: F Assigned Patient Location: [facility] Current Patient Location: Accession/Order Number: [id number] Exam Date: 07/29/2024 19:04 Report Date: 08/01/2024 [...] M.D. Signed By: 08/01/24713 DD/ 0 TD/TT: Business Banking Sales Assistant: [facility] Radiology Study observation (narrative) [facility] US OB BPP W NON-STRESS Ordered By: Radiologist Radiology on 08-01-2024 [facility] Work Phone: Urinalysis macro (dipstick) panel (U)on 08-01-2024 Bilirubin, UA Negative Negative - 4(70) +++ mg/dL [facility] Blood, UA Negative Negative - 50 Ulises/mcL [facility] Clarity, UA Clear [facility] Color, UA Yellow [facility] Glucose, UA Negative Negative - 1999(110) ++++ mg/dL [facility] Interpretation and review of laboratory results Abnormal [facility] Ketones, UA Negative Negative - 160(16) ++++ mg/dL [facility] Leukocytes, UA Trace Negative - 500+++ Clair/mcL [facility] Nitrite, UA Negative Negative - Positive [facility] pH, UA 7.5 5 - 9 [facility] Protein, UA Negative Negative - 1999(20) ++++ mg/dL [facility] Spec Grav, UA 1.015 1 - 1.03 [facility] Urobilinogen, UA 0.2 0.2 - 12 mg/dL [facility] Urinalysis macro (dipstick) panel (U)on 07-18-2024 Bilirubin, UA Negative Negative - 4(70) +++ mg/dL [facility] Blood, UA Negative Negative - 50 Ulises/mcL [facility] Clarity, UA Clear [facility] Color, UA Yellow [facility] Glucose, UA Negative Negative - 1999(110) ++++ mg/dL [facility] Interpretation and review of laboratory results Normal [facility] Ketones, UA Negative Negative - 160(16) ++++ mg/dL [facility] Leukocytes, UA Negative Negative - 500+++ Clair/mcL [facility] Nitrite, UA Negative Negative - Positive [facility] pH, UA 7 5 - 9 [facility] Protein, UA Negative Negative - 1999(20) ++++ mg/dL [facility] Spec Grav, UA 1.025 1 - 1.03 [facility] Urobilinogen, UA 0.2 0.2 - 12 mg/dL [facility] ALL CBC WITH AUTO DIFFon BASOPHILS ABSOLUTE AUTO 0 [facility] Basophils/100 WBC (Bld) 0.2 % 0.2 - 2.0 % [facility] Eosinophils/100 WBC (Bld) 0.9 % 0.9 - 7.0 % [facility] Erythrocyte distribution width (RBC) [Ratio] 13 % 11.0 - 15.0 % [facility] Hematocrit (Bld) [Volume fraction] 32.2 % Low 36.0 - 48.0 % [facility] Hemoglobin (Bld) [Mass/Vol] 10.9 g/dL Low 12.0 - 16.0 g/dL [facility] IMMATURE GRANULOCYTES ABS AUTO 0.13 High [facility] Immature granulocytes/100 WBC (Bld) 1.4 % High 0.0 - 0.5 % [facility] Interpretation and review of laboratory results Abnormal [facility] LYMPHOCYTES ABSOLUTE AUTO 1.4 [facility] Lymphocytes/100 WBC (Bld) 15.4 % Low 20.5 - 60.0 % [facility] MCH (RBC) [Entitic mass] 32.7 pg 26.7 - 34.0 pg [facility] MCHC (RBC) [Mass/Vol] 33.9 g/dL 29.9 - 35.2 g/dL [facility] MCV (RBC) [Entitic vol] 96.7 fL 81.0 - 99.0 fL [facility] MONOCYTES ABSOLUTE AUTO 0.5 [facility] Monocytes/100 WBC (Bld) 4.8 % 1.7 - 12.0 % [facility] NEUTROPHILS ABSOLUTE AUTO 7.2 High [facility] Neutrophils/100 WBC (Bld) 77.3 % High 43.0 - 75.0 % [facility] Platelet mean volume (Bld) [Entitic vol] 9.2 fL Low 9.5 - 13.5 fL [facility]H EO # 0.1 [facility] TB PLT [address] [facility] RBC 3.[address] [facility] WBC 9.3 [facility] Urinalysis macro (dipstick) panel (U)on 06-30-2024 Bilirubin, UA Negative Negative - 4(70) +++ mg/dL [facility] Blood, UA Negative Negative - 50 Ulises/mcL [facility] Clarity, UA Clear [facility] Color, UA Yellow [facility] Glucose, UA Negative Negative - 2000(110) ++++ mg/dL [facility] Interpretation and review of laboratory results Abnormal [facility] Ketones, UA Negative Negative - 160(16) ++++ mg/dL [facility] Leukocytes, UA Trace Negative - 500+++ Clair/mcL [facility] Nitrite, UA Negative Negative - Positive [facility] pH, UA 8.5 5 - 9 [facility] Protein, UA Positive Negative - 1999(20) ++++ mg/dL [facility] Comment on above: trace Spec Grav, UA 1.015 1 - 1.03 [facility] Urobilinogen, UA 0.2 0.2 - 12 mg/dL [facility] Basophils/100 WBC Manual cnt (Bld)on 06-25-2024 Basophils/100 WBC (Bld) Basophils/100 leukocytes in Blood by Manual count Low 0.2-2.0 [facility] Eosinophils/100 WBC Manual c nt (Bld)on 06-25-2024 Eosinophils/100 WBC (Bld) Eosinophils/100 leukocytes in Blood by Manual count 0.9-7.0 [facility] Erythrocyte distribution wid th Auto (RBC) [Ratio]on 06-25-2024 Erythrocyte distribution width (RBC) [Ratio] Erythrocyte distribution width [Ratio] by Automated count 11.0-15.0 [facility] Estimated glomerular filtrat ion rate (GFR) non- Americanon 06-25-2024 GFR/1.73 sq M.predicted among non-blacks MDRD (S/P/Bld) [Vol rate/Area] Estimated glomerular filtration rate (GFR) non- >=60 mL/min/1.73 m 2 [facility] Hematocrit Auto (Bld) [Volum e fraction]on 06-25-2024 Hematocrit (Bld) [Volume fraction] Hematocrit [Volume Fraction] of Blood by Automated count Low 36.0-48.0 [facility] Hemoglobin [Mass/volume] in Bloodon 06-25-2024 Hemoglobin (Bld) [Mass/Vol] Hemoglobin [Mass/volume] in Blood Low 12.0-16.0 [facility] Laboratory - Chemistry and C hemistry - challengeon 06-25-2024 Calcium [Mass/Vol] 8.2 mg/dL Low 8.5-10.1 [facility] Chloride [Moles/Vol] 99 mmol/L 98-107 [facility] CO2 [Moles/Vol] 21.2 mmol/L 21.0-32.0 [facility] Creatinine [Mass/Vol] 0.89 mg/dL 0.55-1.02 [facility] GFR/1.73 sq M.predicted MDRD (S/P/Bld) [Vol rate/Area] mL/min/{1.73_m2} >=60 mL/min/1.73 m 2 [facility] Glucose [Mass/Vol] 98 mg/dL 74-106 [facility] Potassium [Moles/Vol] 3.7 mmol/L 3.5-5.1 [facility] Sodium [Moles/Vol] 130 mmol/L Low 136-145 [facility] Urea nitrogen [Mass/Vol] 7.0 mg/dL 7.0-18.0 [facility] Urea nitrogen/Creatinine [Mass ratio] 7.9 mg/mg [facility] Bilirubin Ql (U) Negative NEGATIVE [facility] Glucose (U) [Mass/Vol] Negative NEGATIVE [facility] Ketones Ql (U) 15 mg/dL Abnormal NEGATIVE [facility] pH (U) 7.5 [pH] 5.0-9.0 [facility] Specific gravity (U) [Rel density] 1.015 1.005-1.025 [facility] Urobilinogen Qn (U) 1.0 {Ree'U}/dL 0.2-1.0 [facility] Laboratory - Hematology and Cell countson 06-25-2024 Band form neutrophils/100 WBC (Bld) 2.0 % 0-5 [facility] Lymphocytes/100 WBC (Bld) 2.0 % Low 20.5-60.0 [facility] Monocytes/100 WBC (Bld) 5.0 % 1.7-12.0 [facility] - Microbiology an d Antimicrobial susceptibilityon 06-25-2024 SARS-CoV-2 (COVID-19) RNA JUAN ANTONIO+probe Ql (Unsp spec) Negative NEGATIVE [facility] Comment on above: This test has [...] ationon 06-25-2024 Appearance (U) CLOUDY Abnormal CLEAR [facility] Color (U) DK YELLOW YELLOW [facility] Laboratory - Urinalysison Leukocyte esterase Test strip Ql (U) Negative NEGATIVE [facility] Nitrite Ql (U) Negative NEGATIVE [facility] Protein Ql (U) TRACE mg/dL NEG/TRACE [facility] Leukocytes [#/volume] correc leroy for nucleated erythrocytes in Blood by Automated counon 06-25-2024 WBC corrected for nucl RBC Auto (Bld) [#/Vol] Leukocytes [#/volume] corrected for nucleated erythrocytes in Blood by Automated coun 4.0-11.0 [facility] MCH Auto (RBC) [Entitic mass ]on 06-25-2024 MCH (RBC) [Entitic mass] MCH [Entitic mass] by Automated count 26.7-34.0 [facility] MCHC Auto (RBC) [Mass/Vol]on 06-25-2024 MCHC (RBC) [Mass/Vol] MCHC [Mass/volume] by Automated count 29.9-35.2 [facility] MCV Auto (RBC) [Entitic vol] on 06-25-2024 MCV (RBC) [Entitic vol] MCV [Entitic volume] by Automated count 81.0-99.0 [facility] No Panel Informationon 06-25 Absolute Basophils (Manual) 0.00 10 3/uL 0.00-0.10 [facility] Band Neutrophils # (Manual) 0.2 10 3/uL 0.0-0.3 [facility] Eosinophils # (Manual) 0.08 10 3/uL 0.00-0.70 [facility] Lymphocytes # (Manual) 0.16 10 3/uL Low 1.20-3.80 [facility] Monocytes # (Manual) 0.41 10 3/uL 0.30-0.80 [facility] Segmented Neutrophils # (Manual) 7.38 10 3/uL High 1.4-6.5 [facility] Urine Occult Blood Negative NEGATIVE [facility] Bedside Influenza Type A Antigen Positive Abnormal [facility] Comment on above: NOTE: Live attenuate d influenza vaccine viruses can cause apositive result for a rapid influenza diagnostic test ifadministered up to 7 days prior to rapid testing. Bedside Influenza Type B Antigen Negative [facility] Comment on above: Negative for Flu B p rotein antigen. Infection due to Flu Bcannot be ruled out. Flu B antigen in the sample may bebelow the detection limit of the test. Platelet mean volume Auto (B ld) [Entitic vol]on 06-25-2024 Platelet mean volume (Bld) [Entitic vol] Platelet mean volume [Entitic volume] in Blood by Automated count Low 9.5-13.5 [facility] Platelets Auto (Bld) [#/Vol] on 06-25-2024 Platelets (Bld) [#/Vol] Platelets [#/volume] in Blood by Automated count 150-450 [facility] RBC Auto (Bld) [#/Vol]on RBC (Bld) [#/Vol] Erythrocytes [#/volu me] in Blood by Automated count Low 4.20-5.40 [facility] Segmented neutrophils/100 WB C Manual cnt (Bld)on 06-25-2024 Segmented neutrophils/100 WBC (Bld) Manual blood segmented neutrophils/100 leukocytes High 43.0-75.0 [facility] Serum or plasma anion gap de terminationon 06-25-2024 Anion gap [Moles/Vol] Serum or plasma anion gap determination [facility] Urine Cultureon 06-25-2024 Bacteria identified Cx Nom (U) No Growth 2 Days PERFORMED BY: [facility] [address] [place] [address] PATHOLOGIST INSTITUTIONAL NUTRITION CONSULTANT DANTE PALACIOS M.D. Normal [facility] Comment on above: Performed By: #### C UU #### [facility] [address] IGP,APTIMA HPV,AGE GDLNon AGE GDLN ACOG TESTING Note . [facility] Comment on above: TESTS RESULT FLAG UN ITS REF RANGE LAB Clinician Provided Cytology Information Source.............Cervix No. of containers..01 ThinPrep Vial Age Algo ACOG Annel... FLAG LEGEND: L-Low Normal,H-High Normal,LL-Alert Low,HH-Alert High <-Panic Low,>-Panic High,A-Abnormal,AA-Critical Abnormal Performed at: 01 = [facility] [address] Kathryn Maldonado MD, HPV APTIMA Negative Negative [facility] Comment on above: This nucleic acid am plification test detects fourteen high- risk HPV types (16,18,31,33,35,39,45,51,52,56,58,59,66,68) without differentiation. Performed at: =[facility] [employer] [id number] [employer] Manager: Kathryn Maldonado MD, Phone: [phone] Performed at: [address] [id number] [employer] Manager: Kathryn Maldonado MD, Phone: [phone] IGP, APTIMA HPV, RFX 16/18,45 Note . [facility] Comment on above: TESTS RESULT FLAG UN ITS REF RANGE LAB DIAGNOSIS: 02 NEGATIVE FOR INTRAEPITHELIAL LESION OR MALIGNANCY. Specimen adequacy: 02 Satisfactory for evaluation. Endocervical and/or squamous metaplastic cells (endocervical component) are present. Performed by: 02 Thao Shankar, Rack Cleaner . 02 Note: Note 02 The Pap [...] High,A-Abnormal,AA-Critical Abnormal Performed at: 02 [address] [facility] [address] [place] [address] Kathryn Maldonado MD, BRUSH-SPATULA CERVIX [facility] RECURRENT VAGINITIS (HTRX)on 05-05-2024 ATOPOBIUM VAGINAE 0 [facility] ATOPOBIUM VAGINAE Not detected [facility] BVAB 2,3 (BACTERIAL VAGINOSIS ASSOCIATED BACTERIA 2, 3); MOBILUNCUS SPP 0 [facility] BVAB 2,3 (BACTERIAL VAGINOSIS ASSOCIATED BACTERIA 2, 3); MOBILUNCUS SPP Not detected [facility] [facility] JED ALBICANS, PARAPSILOSIS, TROPICALIS 0 [facility] JED ALBICANS, PARAPSILOSIS, TROPICALIS Not detected [facility] JED GLABRATA 0 [facility] JED GLABRATA Not detected [facility] JED KRUSEI 0 [facility] JED KRUSEI Not detected [facility] CHLAMYDIA TRACHOMATIS 0 [facility] CHLAMYDIA TRACHOMATIS Not detected [facility] GARDNERELLA VAGINALIS 0 [facility] GARDNERELLA VAGINALIS Not detected [facility] MEGASPHAERA (TYPES 1, 2) 0 [facility] MEGASPHAERA (TYPES 1, 2) Not detected [facility] MYCOPLASMA GENITALIUM 0 [facility] MYCOPLASMA GENITALIUM Not detected [facility] NEISSERIA GONORRHOEAE 0 [facility] NEISSERIA GONORRHOEAE Not detected [facility] TRICHOMONAS VAGINALIS 0 [facility] TRICHOMONAS VAGINALIS Not detected [facility] Urinalysis macro (dipstick) panel (U)on 05-03-2024 Bilirubin, UA Negative Negative - 4(70) +++ mg/dL [facility] Blood, UA Negative Negative - 50 Ulises/mcL [facility] Clarity, UA Clear [facility] Color, UA Yellow [facility] Glucose, UA Negative Negative - 1999(110) ++++ mg/dL [facility] Interpretation and review of laboratory results Normal [facility] Ketones, UA Negative Negative - 160(16) ++++ mg/dL [facility] Leukocytes, UA Negative Negative - 500+++ Clair/mcL [facility] Nitrite, UA Negative Negative - Positive [facility] pH, UA 0.5 5 - 9 [facility] Protein, UA Negative Negative - 1999(20) ++++ mg/dL [facility] Spec Grav, UA 1.025 1 - 1.03 [facility] Urobilinogen, UA 1.0 0.2 - 12 mg/dL [facility] Human papilloma virus 16+18+ 31+33+35+39+45+51+52+56+58+59+66+68 DNA [Presence] in Denis 05-02-2024 HPV 16+18+31+33+35+39+4 5+51+52+56+58+59+66 +68 DNA Probe+sig amp Ql (Cvx) Human papilloma virus 16+18+31+33+35+39+45+51+52+5 6+58+59+66+68 DNA [Presence] in Cer Negative [facility] Comment on above: This nucleic acid am plification test detects fourteen high- risk HPV types (16,18,31,33,35,39,45,51,52,56,58,59,66,68)without differentiation.Performed at: =G - [facility] [address] [id number] Director: Kathryn Maldonado MD, Phone: [phone] at: - [facility] [address] [id number] Director: Kathryn Maldonado MD, Phone: [phone] No Panel Informationon 05-02 HPV High Risk Other Comment Note . [facility] Comment on above: TESTS RESULT FLAG UN ITS REF RANGE LAB JESE GNOSIS: 02 NEGATIVE FOR INTRAEPITHELIAL LESION OR MALIGNANCY.Specimen adequacy: 02 Satisfactory for evaluation. Endocervical and/or squamous metaplastic cells (endocervical component) are present.Performed by: 02 Thao Shankar, Rack Cleaner. 02Note: Note 02 The Pap smear is [...] Low,>-Panic High,A-Abnormal,AA-Critical Abnormal --Performed at:02 WB [facility] [address] [place] [address] Kathryn Maldonado MD, Reference Lab Test Patient Age Note . [facility] Comment on above: TESTS RESULT FLAG UN ITS REF RANGE LAB Clinician Provided Cytology Information Source.............Cervix No. of containers..01 ThinPrep VialAge Richie Up... 30-65 FLAG LEGEND: L-Low Normal,H-High Normal,LL-Alert Low,HH-Alert High <-Panic Low,>-Panic High,A-Abnormal,AA-Critical Abnormal --Performed at:01 =G [facility] [address] [place] [address] Kathryn Maldonado MD, AFP, SERUM, OPEN SPINA BIFID Aon 05-01-2024 AFP MOM 1.18 . [facility] AFP VALUE 61.8 ng/mL . [facility] COMMENT: Comment . [facility] Comment on above: Cydney Rodriguez , Ph.D., [facility] Director References: Available Upon Request. Multiples Of Median Cutoffs For AFP Elevations Chiang 2.5 Black 2.8 IDD 2.0 Twins 4.5 Abbreviation Definitions IDD - Insulin Dep Diabetes OSBR - Open Spina Bifida Risk For further inquiries contact [employer] at [phone]. This test was developed and its performance characteristics determined by [employer]. It has not been cleared or approved by the Food and Drug Administration. Performed at: [facility] [employer] [address] [place], [place] [id number] [employer] Manager: Marissa Kovacs [facility], Phone: [phone] GEST. AGE ON COLLECTION DATE 19.0 . weeks [facility] GESTAT. AGE BASED ON LMP . [facility] Comment on above: Recalculations are n ot recommended when gestational dating by LMP and ultrasound are within 10 days. INSULIN DEP DIABETES No . [facility] INTERPRETATION Comment . [facility] Comment on above: Interpretation: Scre en [...] Customer Services to discuss available options. The [employer] recommends amniocentesis be offered to women age 35 and older. [age] [facility] MULTIPLE GESTATION No . [facility] OSBR RISK 1 IN 6916 . [facility] RACE . [facility] RESULTS Report . [facility] TEST RESULTS: Negative . [facility] WEIGHT 135 . lbs [facility] N N LMP [id number] 3 15 N 1 Y 135 N N N N N White/ [facility] Alpha-fetoprotein (AFP) paige urement (taaybttj-au-dsbplo)on 04-29-2024 AFP [MoM] Alpha-fetoprotein (A FP) measurement (uvhanikm-bd-zyeleb) . [facility] Assess gestational ageon Gestational age Assess gestational age . [facility] Estimation of maternal age-s pecific risk of Down syndrome birthon 04-29-2024 Age [Time] Estimation of matern al age-specific risk of Down syndrome . [facility] Insulin dependent diabetes m ellitus detectionon 04-29-2024 Insulin dependent diabetes mellitus Ql Insulin dependent diabetes mellitus detection . [facility] Interpretation of serum or p lasma second trimester quad maternal screen (narrative reon 04-29-2024 Second trimester quad maternal screen Darshan [Interp] Interpretation of serum or plasma second trimester quad maternal screen (narrative re . [facility] Comment on above: Interpretation: Scre en [...] 04-29 AFP Triple Screen Comment Comment . [facility] Comment on above: Cydney Rodriguez , Ph.D., DABCCDirectorReferences: Available Upon Request.Multiples Of Median Cutoffs For AFP ElevationsSingleton 2.5 Black 2.8IDD 2.0 Twins 4.5 Abbreviation DefinitionsIDD - Insulin Dep DiabetesOSBR - Open Spina Bifida RiskFor further inquiries contact [employer] at [phone].This test was developed and its performance characteristicsdetermined by [employer]. It has not been cleared or approvedby the Food and Drug Administration.Performed at: [facility] [employer] [facility] [id number] [place], [place] [id number] Director: Marissa Kovacs [facility], Phone: [phone] Alpha Fetoprotein Results Received Report . [facility] Gestational Age Calculation Method LMP . [facility] Comment on above: Recalculations are n ot recommended when gestational datingby LMP and ultrasound are within 10 days. Maternal Quad Test Risk 6916 . [facility] Maternal Race . [facility] Multiple No . [facility] Serum or plasma tclyq-2-iilq protein measurement (mass/volume)on 04-29-2024 AFP [Mass/Vol] Serum or plasma swhml-2-khujtknvzap measurement (mass/volume) . [facility] BOX TEST SENT OUTon BOX TEST SENT OUT Y [facility] UNITY BOX [facility] ALL CBC WITH AUTO DIFFon BASOPHILS ABSOLUTE AUTO 0.0 [facility] Basophils/100 WBC (Bld) 0.5 % 0.2 - 2.0 % [facility] Eosinophils/100 WBC (Bld) 0.9 % 0.9 - 7.0 % [facility] Erythrocyte distribution width (RBC) [Ratio] 11.9 % 11.0 - 15.0 % [facility] Hematocrit (Bld) [Volume fraction] 37.3 % 36.0 - 48.0 % [facility] Hemoglobin (Bld) [Mass/Vol] 12.7 g/dL 12.0 - 16.0 g/dL [facility] IMMATURE GRANULOCYTES ABS AUTO 0.02 [facility] Immature granulocytes/100 WBC (Bld) 0.3 % 0.0 - 0.5 % [facility] Interpretation and review of laboratory results Abnormal [facility] LYMPHOCYTES ABSOLUTE AUTO 1.8 [facility] Lymphocytes/100 WBC (Bld) 27.4 % 20.5 - 60.0 % [facility] MCH (RBC) [Entitic mass] 32.2 pg 26.7 - 34.0 pg [facility] MCHC (RBC) [Mass/Vol] 34.0 g/dL 29.9 - 35.2 g/dL [facility] MCV (RBC) [Entitic vol] 94.4 fL 81.0 - 99.0 fL [facility] MONOCYTES ABSOLUTE AUTO 0.3 [facility] Monocytes/100 WBC (Bld) 5.1 % 1.7 - 12.0 % [facility] NEUTROPHILS ABSOLUTE AUTO 4.4 [facility] Neutrophils/100 WBC (Bld) 65.8 % 43.0 - 75.0 % [facility] Platelet mean volume (Bld) [Entitic vol] 9.4 fL Low 9.5 - 13.[address] [facility] EO # 0.1 [facility] TB PLT [address] [facility] RBC 3.[address] [facility] WBC 6.6 [facility] HCG ( test) Ql (U)o n 02-12-2024 Interpretation and review of laboratory results Abnormal [facility] Preg Test, Ur Positive [facility] Urinalysis macro (dipstick) panel (U)on 02-12-2024 Bilirubin, UA Negative Negative - 4(70) +++ mg/dL [facility] Blood, UA Negative Negative - 50 Ulises/mcL [facility] Clarity, UA Clear [facility] Color, UA Yellow [facility] Glucose, UA Negative Negative - 1999(110) ++++ mg/dL [facility] Interpretation and review of laboratory results Normal [facility] Ketones, UA Negative Negative - 160(16) ++++ mg/dL [facility] Leukocytes, UA Negative Negative - 500+++ Clair/mcL [facility] Nitrite, UA Negative Negative - Positive [facility] pH, UA 6.5 5 - 9 [facility] Protein, UA Negative Negative - 1999(20) ++++ mg/dL [facility] Spec Grav, UA 1.015 1 - 1.03 [facility] Urobilinogen, UA 1.0 0.2 - 12 mg/dL [facility] No Panel Informationon 11-29 Human Chorionic Gonadotropin, Quant 2 mIU/mL [facility] Comment on above: 5-50 0.2-1 GRTR73-35 0 1-2 TYCEO714-0,000 2-3 CARNU776-04,000 3-4 WEEKS1,000-50,000 4-5 WEEKS10,000-100,000 5-6 WEEKS15,000-200,000 6-8 WEEKS10,000-100,000 2-3 MONTHS No Panel Informationon 11-22 Human Chorionic Gonadotropin, Quant 3 mIU/mL [facility] Comment on above: 5-50 0.2-1 GNTC82-09 0 1-2 YEXNQ761-0,000 2-3 TCMLV232-84,000 3-4 WEEKS1,000-50,000 4-5 WEEKS10,000-100,000 5-6 WEEKS15,000-200,000 6-8 WEEKS10,000-100,000 2-3 MONTHS No Panel Informationon 11-16 Human Chorionic Gonadotropin, Quant 6 mIU/mL [facility] Comment on above: 5-50 0.2-1 YWWM37-36 0 1-2 VQDVQ628-4,000 2-3 JWVOC112-42,000 3-4 WEEKS1,000-50,000 4-5 WEEKS10,000-100,000 5-6 WEEKS15,000-200,000 6-8 WEEKS10,000-100,000 2-3 MONTHS No Panel Informationon 11-08 Human Chorionic Gonadotropin, Quant 27 mIU/mL [facility] Comment on above: 5-50 0.2-1 HDIJ34-53 0 1-2 KPHWZ623-7,000 2-3 OYLLR756-42,000 3-4 WEEKS1,000-50,000 4-5 WEEKS10,000-100,000 5-6 WEEKS15,000-200,000 6-8 WEEKS10,000-100,000 2-3 MONTHS Basophils Auto (Bld) [#/Vol] on 10-23-2023 Basophils (Bld) [#/Vol] 0.0 10 3/uL 0.0-0.1 [facility] Basophils/100 WBC Auto (Bld) on 10-23-2023 Basophils/100 WBC (Bld) 0.8 % 0.2-2.0 [facility] Eosinophils/100 WBC Auto (Bl d)on 10-23-2023 Eosinophils/100 WBC (Bld) 1.4 % 0.9-7.0 [facility] Erythrocyte distribution wid th Auto (RBC) [Ratio]on 10-23-2023 Erythrocyte distribution width (RBC) [Ratio] 11.9 % 11.0-15.0 [facility] Hematocrit Auto (Bld) [Volum e fraction]on 10-23-2023 Hematocrit (Bld) [Volume fraction] 36.0 % 36.0-48.0 [facility] Hemoglobin [Mass/volume] in Bloodon 10-23-2023 Hemoglobin (Bld) [Mass/Vol] 11.8 g/dL 12.0-16.0 [facility] Krzysztof 10-23-2023 L Specimen: [id number] R eceived: 10/26/23 Status: MAIA Newell Num: [id number] Spec Type: Surgical Subm Dr: Scooby Vega Tissues: A Products of Conception - Spontaneous or Missed (POC) Procedures: HE/3, Gross/Micro L4 Age/ Patient Sex Location Account Attending Physician Raphael Elizabeth 37/F [facility] [id number] Scooby Vega SPEC NUM: [id number] RECD: 10/26/23 STATUS: MAIA NEWELL NUM: [id number] JANIE: 10/23/[address]: Scooby Vega ENTERED: 10/26/23 [facility] DR: Owen,Lab SPEC TYPE: Surgical DEPT: [...] cm possible area of villous tissue identified. Sr. [employer] System Administrator sections to include the possible villous tissue are submitted in A1?A3. Clinical history: Missed CPT Codes 91381 -------- -------- Specimen: [id number] Received: 10/26/23-1305 Status: MAIA Newell Num: [id number] Spec Type: Surgical Subm Dr: Scooby Vega Tissues: A Products of Conception - Spontaneous or Missed (POC) Procedures: HE/3, Gross/Micro L4 -------- Patient: Raphael Elizabeth [id number] (Continued) -------- Signed (signature on file) Dante Palacios MD 10/27/23 1511 Normal [facility] - Hematology and Cell countson 10-23-2023 Immature granulocytes/100 WBC (Bld) 0.2 % 0.0-0.5 [facility] Leukocytes [#/volume] correc leroy for nucleated erythrocytes in Blood by Automated counon 10-23-2023 WBC corrected for nucl RBC Auto (Bld) [#/Vol] 5.1 10 3/uL 4.0-11.0 [facility] Lymphocytes Auto (Bld) [#/Vo l]on 10-23-2023 Lymphocytes (Bld) [#/Vol] 1.7 10 3/uL 1.2-3.8 [facility] Lymphocytes/100 WBC Auto (Bl d)on 10-23-2023 Lymphocytes/100 WBC (Bld) 32.8 % 20.5-60.0 [facility] MCH Auto (RBC) [Entitic mass ]on 10-23-2023 MCH (RBC) [Entitic mass] 31.1 pg 26.7-34.0 [facility] MCHC Auto (RBC) [Mass/Vol]on 10-23-2023 MCHC (RBC) [Mass/Vol] 32.8 g/dL 29.9-35.2 [facility] MCV Auto (RBC) [Entitic vol] on 10-23-2023 MCV (RBC) [Entitic vol] 95.0 fL 81.0-99.0 [facility] Monocytes Auto (Bld) [#/Vol] on 10-23-2023 Monocytes (Bld) [#/Vol] 0.3 10 3/uL 0.3-0.8 [facility] Monocytes/100 WBC Auto (Bld) on 10-23-2023 Monocytes/100 WBC (Bld) 5.5 % 1.7-12.0 [facility] Neutrophils Auto (Bld) [#/Vo l]on 10-23-2023 Neutrophils (Bld) [#/Vol] 3.0 10 3/uL 1.4-6.5 [facility] Neutrophils/100 WBC Auto (Bl d)on 10-23-2023 Neutrophils/100 WBC (Bld) 59.3 % 43.0-75.0 [facility] No Panel Informationon 10-22 Eosinophils # (Auto) 0.1 10 3/uL 0.0-0.7 [facility] Immature Granulocyte # (Auto) 0.01 10 3/uL 0.00-0.03 [facility] Platelet mean volume Auto (B ld) [Entitic vol]on 10-23-2023 Platelet mean volume (Bld) [Entitic vol] 9.0 fL 9.5-13.5 [facility] Platelets Auto (Bld) [#/Vol] on 10-23-2023 Platelets (Bld) [#/Vol] 182 10 3/uL 150-450 [facility] RBC Auto (Bld) [#/Vol]on RBC (Bld) [#/Vol] 3.79 10 6/uL 4.20-5.40 [facility] No Panel Informationon 10-11 Human Chorionic Gonadotropin, Quant 22944 mIU/mL [facility] Comment on above: 5-50 0.2-1 CSUE78-82 0 1-2 DMZVZ812-9,000 2-3 XXARB617-65,000 3-4 WEEKS1,000-50,000 4-5 WEEKS10,000-100,000 5-6 WEEKS15,000-200,000 6-8 WEEKS10,000-100,000 2-3 MONTHS No Panel Informationon 10-06 Human Chorionic Gonadotropin, Quant 92236 mIU/mL [facility] Comment on above: 5-50 0.2-1 HOYX40-65 0 1-2 ZKJCG264-7,000 2-3 DNALS368-63,000 3-4 WEEKS1,000-50,000 4-5 WEEKS10,000-100,000 5-6 WEEKS15,000-200,000 6-8 WEEKS10,000-100,000 2-3 MONTHS No Panel Informationon 10-04 Human Chorionic Gonadotropin, Quant 20949 mIU/mL [facility] Comment on above: 5-50 0.2-1 AZYO78-20 0 1-2 LYEUI647-7,000 2-3 IJACY027-34,000 3-4 WEEKS1,000-50,000 4-5 WEEKS10,000-100,000 5-6 WEEKS15,000-200,000 6-8 WEEKS10,000-100,000 2-3 MONTHS PAP ACOG PANEL 2: 30 to 65on 03-11-2022 . . Normal [facility] Comment on above: Result Comment: Perf ormed at: WB Performed By: #### [id number] #### [facility] [address] [address] [address] Danni Jacobs Age Gdln ACOG Testing 30-65 Normal [facility] Comment on above: Performed By: #### [id number] #### [facility] [address] [address] [address] Danni Jacobs DIAGNOSIS: Comment Normal [facility] Comment on above: Result Comment: NEGA TIVE FOR INTRAEPITHELIAL LESION OR MALIGNANCY. THIS SPECIMEN WAS RESCREENED PART OF OUR GENERAL MACHINE OPERATOR PROGRAM. Performed at: WB Performed By: #### [id number] #### [facility] [address] [place] [address] Dr. Danni Jacobs HPV Aptima Negative Normal Negative [facility] Comment on above: Result Comment: This nucleic acid amplification test detects fourteen high-risk HPV types (16,18,31,33,35,39,45,51,52,56,58,59,66,68) without differentiation. Performed at: =G Performed By: #### [id number] #### [facility] [address] [place] [address] Dr. Danni Jacobs Methodology: Comment Normal [facility] Comment on above: Result Comment: This liquid based ThinPrep(R) pap test was screened with the use of an image guided system. Performed at: WB Performed By: #### [id number] #### [facility] [address] [place] [address] Dr. Danni Jacobs Note: Comment Normal [facility] Comment on above: Result Comment: The Pap smear is a screening test designed to aid in the detection of premalignant and malignant conditions of the uterine cervix. It is not a diagnostic procedure and should not be used as the sole means of detecting cervical cancer. Both false-positive and false-negative reports do occur. . Performed at: WB Performed By: #### [id number] #### [facility] [address] [place] [address] Dr. Danni Jacobs Performed by: Comment Normal [facility] Comment on above: Result Comment: Rocky Hull, Rack Cleaner (ASCP) Performed at: WB Performed By: #### [id number] #### [facility] [address] [place] [address] Dr. Danni Jacobs QC reviewed by: Comment Normal [facility] Comment on above: Result Comment: Betzaida Ge, Supervisory Rack Cleaner (ASCP) Performed at: WB Performed By: #### [id number] #### [facility] [address] [place] [address] Dr. Danni Jacobs Specimen adequacy: Comment Normal [facility] Comment on above: Result Comment: Sati sfactory for evaluation. Endocervical and/or squamous metaplastic cells (endocervical component) are present. Performed at: WB Performed By: #### [id number] #### [facility] [address] [address] [address] Danni Jacobs GLUCOSE BLOODon 04-22-2021 Glucose [Mass/Vol] 99 mg/dL Normal 74-[address] [facility] Comment on above: Performed By: #### G YOSEPH, LIPID #### [facility] [address] [address] [address] Danni Jacobs LIPID PROFILEon 04-22-2021 CHOL-HDL RATIO NORM SEE BELOW Normal [facility] Comment on above: Result Comment: 3.3 - 4.4 LOW RISK 4.4 - 7.1 AVERAGE RISK 7.1 - 11.0 MODERATE RISK >11.0 HIGH RISK Performed By: #### G YOSEPH, LIPID #### [facility] [address] [place] [address] Dr. Danni Jacobs Cholesterol [Mass/Vol] 157 mg/dL Normal <=200 [facility] Comment on above: Performed By: #### G YOSEPH, LIPID #### [facility] [address] [place] [address] Dr. Danni aJcobs Cholesterol in HDL [Mass/Vol] 74 mg/dL Normal [facility] Comment on above: Performed By: #### G YOSEPH, LIPID #### [facility] [address] [address] [address] Danni Jacobs Cholesterol in LDL [Mass/Vol] 71.2 mg/dL Normal [facility] Comment on above: Performed By: #### G YOSEPH, LIPID #### [facility] [address] [place] [address] Dr. Danni Jacobs Cholesterol.total/C holesterol in HDL [Mass ratio] 2.1 {ratio} Normal [facility] Comment on above: Performed By: #### G YOSEPH, LIPID #### [facility] [address] [address] [address] Danni Jacobs HDL NORMAL > or = 60 mg/dl - LO W CARDIOVASCULAR RISK <40 mg/dl - HIGH CARDIOVASCULAR RISK Normal [facility] Comment on above: Performed By: #### G YOSEPH, LIPID #### [facility] [address] [place], [place] [address] Dr. Danni Jacobs LDL CALC NORMAL SEE BELOW Normal [facility] Comment on above: Result Comment: <100 mg/dl OPTIMAL 100 - 129 mg/dl NEAR OR ABOVE OPTIMAL 130 - 159 mg/dl BORDERLINE HIGH 160 - 189 mg/dl HIGH >190 mg/dl VERY HIGH Performed By: #### G YOSEPH, LIPID #### [facility] [address] [place], [place] [address] Dr. Danni Jacobs Triglyceride [Mass/Vol] 59 mg/dL Normal <=150 [facility] Comment on above: Performed By: #### G YOSEPH, LIPID #### [facility] [address] [place], [place] [address] Dr. Danni Jacobs VLDL CALC 11.8 mg/dL Normal [facility] Comment on above: Performed By: #### G YOSEPH, LIPID #### [facility] [address] [place], [place] [address] Dr. Danni Jacobs Vital Signs Date Time Vital Sign Value Performing Clinician Philippe mera 08-24-2024 13:51-0500 Body mass index (BMI) [Ratio] 24.18 kg/m2 [employer] Work Phone: [facility] 08-24-2024 13:51-0500 Body weight 70.03 kg Scooby Gary DO Work Phone: [facility] 08-24-2024 13:51-0500 Diastolic blood pressure 68 mm[Hg] Scooby Gary DO Work Phone: [facility] 08-24-2024 13:51-0500 Systolic blood pressure 112 mm[Hg] Scooby Gary DO Work Phone: [facility] 08-18-2024 09:28-0500 Body mass index (BMI) [Ratio] 23.62 kg/m2 [employer] DO Work Phone: [facility] 08-18-2024 09:28-0500 Body weight 68.4 kg Scooby Gary DO Work Phone: [facility] 08-18-2024 09:28-0500 Diastolic blood pressure 72 mm[Hg] Scooby Gary DO Work Phone: [facility] 08-18-2024 09:28-0500 Systolic blood pressure 110 mm[Hg] Scooby Gary DO Work Phone: [facility] 08-01-2024 13:55-0500 Body mass index (BMI) [Ratio] 22.87 kg/m2 Scooby Gary DO Work Phone: [facility] 08-01-2024 13:55-0500 Body weight 66.22 kg Scooby Gary DO Work Phone: [facility] 08-01-2024 13:55-0500 Diastolic blood pressure 74 mm[Hg] Scooby Gary DO Work Phone: [facility] 08-01-2024 13:55-0500 Systolic blood pressure 116 mm[Hg] Scooby Gary DO Work Phone: [facility] 07-18-2024 15:05-0500 Body mass index (BMI) [Ratio] 22.84 kg/m2 Scooby Gary DO Work Phone: [facility] 07-18-2024 15:05-0500 Body weight 66.13 kg Scooby Gary DO Work Phone: [facility] 07-18-2024 15:05-0500 Diastolic blood pressure 70 mm[Hg] Scooby Gary DO Work Phone: [facility] 07-18-2024 15:05-0500 Systolic blood pressure 118 mm[Hg] Scooby Gary DO Work Phone: [facility] 06-30-2024 12:01-0500 Body mass index (BMI) [Ratio] 22.26 kg/m2 Scooby Gary DO Work Phone: [facility] 06-30-2024 12:01-0500 Body weight 64.47 kg Scooby Gary DO Work Phone: [facility] 06-30-2024 12:01-0500 Diastolic blood pressure 70 mm[Hg] Scooby Gary DO Work Phone: [facility] 06-30-2024 12:01-0500 Systolic blood pressure 110 mm[Hg] Scooby Gary DO Work Phone: [facility] 06-02-2024 10:45-0500 Body mass index (BMI) [Ratio] 21.9 kg/m2 Scooby Gary DO Work Phone: [facility] 06-02-2024 10:45-0500 Body weight 63.41 kg Scooby Gary DO Work Phone: [facility] 06-02-2024 10:45-0500 Diastolic blood pressure 72 mm[Hg] Scooby Gary DO Work Phone: [facility] 06-02-2024 10:45-0500 Systolic blood pressure 116 mm[Hg] Scooby Gary DO Work Phone: [facility] 05-02-2024 16:20-0500 Body mass index (BMI) [Ratio] 21.61 kg/m2 Emely COBB Work Phone: [facility] 05-02-2024 16:20-0500 Body weight 62.6 kg Emely COBB Work Phone: [facility] 05-02-2024 16:20-0500 Diastolic blood pressure 68 mm[Hg] Emely COBB Work Phone: [facility] 05-02-2024 16:20-0500 Systolic blood pressure 120 mm[Hg] Emely COBB Work Phone: [facility] 04-29-2024 11:40-0500 Body weight Jen Granados MD Work Phone: [facility] 04-04-2024 14:55-0400 Body mass index (BMI) [Ratio] 21.27 kg/m2 Scooby Gary DO Work Phone: [facility] 04-04-2024 14:55-0400 Body weight 61.6 kg Scooby Gary DO Work Phone: [facility] 04-04-2024 14:55-0400 Diastolic blood pressure 70 mm[Hg] Scooby Gary DO Work Phone: [facility] 04-04-2024 14:55-0400 Systolic blood pressure 116 mm[Hg] Scooby Gary DO Work Phone: [facility] 03-07-2024 10:47-0400 Body mass index (BMI) [Ratio] 20.07 kg/m2 Scooby Gary DO Work Phone: [facility] 03-07-2024 10:47-0400 Body weight 58.12 kg Scooby Gary DO Work Phone: [facility] 03-07-2024 10:47-0400 Diastolic blood pressure 68 mm[Hg] Scooby Gary DO Work Phone: [facility] 03-07-2024 10:47-0400 Systolic blood pressure 114 mm[Hg] Scooby Gary DO Work Phone: [facility] 12-01-2023 16:10-0400 Body height 170.18 cm Scooby Gary Work Phone: [facility] 12-01-2023 16:10-0400 Body mass index (BMI) [Ratio] 19.5 kg/m2 Scooby Gary Work Phone: [facility] 12-01-2023 16:10-0400 Body weight 56.69 kg Scooby Gary Work Phone: [facility] 12-01-2023 16:10-0400 Diastolic blood pressure 78 mm[Hg] Scooby Gary Work Phone: [facility] 12-01-2023 16:10-0400 Systolic blood pressure 112 mm[Hg] Scooby Gary Work Phone: [facility] Encounters Encounter Date Encounter Type Care Provider Facility Start: 09-12-2024 End: 09-12-2024 ambulatory SCOOBY GARY Not Available Start: 09-05-2024 End: 09-05-2024 ambulatory SCOOBY GARY [...] 06-25-2024 ambulatory Jen Granados MD Work Phone: [facility] Work Phone: Start: 06-25-2024 End: 06-25-2024 Departed Referred Jen Granados MD Work Phone: [facility] Start: 06-25-2024 Non-patient / Non-visit Jen [facility]ados MD [facility] Phone[facility] Work Phone: Start: 06-02-2024 End: 06-02-2024 Bamboo flowsheet Scooby Gary DO Work Phone: [facility] Start: 06-02-2024 End: 06-02-2024 Bamboo flowsheet Scooby Gary DO Work Phone: [facility] Start: 06-02-2024 End: 06-02-2024 ambulatory SCOOBY VEGA Not Available Start: 06-02-2024 End: 06-02-2024 flow sheet Scooby Fragosoo DO Work Phone: [facility] Comment on above: Second trimester pre gnancy; 23 weeks gestation of ; with normal glucose tolerance test (GTT); Diabetes mellitus screening; Gestational diabetes mellitus (GDM), antepartum, gestational diabetes method of control unspecified; Elevated glucose tolerance test Start: 05-02-2024 Non-patient / Non-visit Jen Granados MD Work Phone: [facility] Work Phone: Start: 05-02-2024 End: 05-02-2024 ambulatory EMELY HUNTER Not Available Start: 05-02-2024 End: 05-02-2024 Patient encounter procedure Emely COBB Work Phone: [facility] Work Phone: Start: 05-02-2024 End: 05-02-2024 flow sheet Emely COBB Work Phone: [facility] Comment on above: Well woman exam with routine gynecological exam; Second trimester ; 19 weeks gestation of ; Vaginal discharge; STD exposure; Screening, , for anatomic survey Start: 05-02-2024 End: 05-02-2024 Bamboo flowsheet Emely COBB Work Phone: [facility] Start: 05-02-2024 End: 05-10-2024 Bamboo flowsheet Emely COBB Work Phone: [facility] Start: 05-02-2024 End: 05-10-2024 Clinisync Result Encounter Emely COBB Work Phone: [facility] External Department Unsolicited Start: 05-02-2024 End: 05-05-2024 External Result Encounter Emely COBB Work Phone: [facility] External Department Unsolicited Start: 04-29-2024 End: 05-01-2024 Clinisync Result Encounter Scooby Gary DO Work Phone: [facility] External Department Unsolicited Start: 04-29-2024 End: 05-01-2024 Clinisync Result Encounter Scooby Gary DO Work Phone: [facility] External Department Unsolicited Start: 04-29-2024 Non-patient / Non-visit Jen Granados MD Work Phone: [facility] Work Phone: Start: 04-04-2024 [...] [facility] Start: 04-04-2024 End: 04-04-2024 ambulatory [facility] Start: 04-01-2024 End: [...] left Start: 03-11-2024 End: 03-11-2024 Bamboo flowsheet Grecthen Moreno PT [facility] Start: 03-11-2024 [...] PT Start: 03-03-2024 End: 03-03-2024 ambulatory Gretchen Josh PT [facility] Comment on above: [...] Unsolicited Start: 02-26-2024 End: 02-26-2024 ambulatory Gretchen Josh PT [facility] Comment on above: [...] Start: 02-10-2024 End: 02-10-2024 Bamboo flowsheet Gretchen Josh PT [facility] Start: 02-08-2024 End: 02-08-2024 ambulatory ASHLEY K [facility] Start: 02-08-2024 ambulatory [facility] Start: 12-01-2023 End: 12-01-2023 ambulatory Scooby Gary Work Phone: [facility] Work Phone: Start: 12-01-2023 End: 12-01-2023 Patient encounter procedure Scooby Gary Work Phone: [facility] Work Phone: Start: 11-30-2023 Non-patient / Non-visit Scooby Gary Work Phone: [facility] Work Phone: Start: 11-23-2023 Non-patient / Non-visit Scooby Gary Work Phone: [facility] Work Phone: Start: 11-17-2023 Non-patient / Non-visit Scooby Gary Work Phone: [facility] Work Phone: Start: 11-09-2023 Non-patient / Non-visit Scooby Gary Work Phone: [facility] Work Phone: Start: 11-09-2023 End: 11-09-2023 ambulatory EMELY HUNTER Not Available Start: 10-23-2023 End: 10-23-2023 ambulatory Scooby Gary [facility] Work Phone: Start: 10-23-2023 End: 10-23-2023 Departed Referred Scooby Gary Work Phone: [facility] Start: 10-23-2023 Non-patient / Non-visit Scooby Gary Work Phone: [facility] Work Phone: Start: 10-12-2023 Non-patient / Non-visit Scooby Gary Work Phone: [facility] Work Phone: Start: 10-07-2023 Non-patient / Non-visit Scooby Gary Work Phone: [facility] Work Phone: Start: 10-05-2023 Non-patient / Non-visit Scooby Gary Work Phone: [facility] Work Phone: Start: 03-03-2022 End: 03-03-[address] SCOOBY VEGA Facility:[facility] Start: 04-28-2021 Encounter for genera l adult medical examination without abnormal findings DR DALTON LOGAN [facility] Start: 04-22-2021 End: 04-23-[address] [...] Follow-up visit Follow-up ASHLEY ROCK Start: 02-26-2024 [facility] BOX TEST SENT OUT C orey Gary DO Work Phone: Start: 02-16-2024 ALL CBC WITH AUTO DIFF Scooby Gary DO Work Phone: Start: 02-12-2024 End: 02-12-2024 Urnls dip stick/tablet rgnt non-auto w/o micrscp Scooby Gary DO Work Phone: Plan of Treatment Date Care Activity Detail Author Start: 09-12-2024 End: 09-12-2024 Patient encounter procedure 09/12/2024 9:00 AM EDT Routine [facility] [address] [place] [address] Scooby Vega, DO [facility] [place] [address] [facility] Start: 09-05-2024 End: 09-05-2024 Patient encounter procedure 09/05/2024 1:30 PM EDT Routine [facility] [address] [place] [phone] Scooby Vega, DO [facility] [place] [address] [facility] Start: 08-24-2024 End: 08-24-2025 CULTURE, GROUP B STREP WITH SUSCEPTIBLITY CULTURE, GROUP B STREP WITH SUSCEPTIBLITY Lab Routine Third trimester Expected: 08/24/2024, Expires: 08/24/2025 [facility] Work Phone: Comment on above: Expected: 08/24/2024 , Expires: 08/24/2025 Start: 08-24-2024 End: 08-24-2024 Patient encounter procedure 08/24/2024 1:20 PM EST Routine [facility] [address] [place] [phone] Scooby Vega, [address] [place] [address] [facility] Start: 08-18-2024 End: 08-18-2025 US for US OB follow up transabdominal approach Imaging Routine Multigravida of advanced maternal age in third trimester Expected: 08/18/2024, Expires: 08/18/2025 [facility] Work Phone: Comment on above: Expected: 08/18/2024 , Expires: 08/18/2025 Start: 08-18-2024 End: 08-18-2024 Patient encounter procedure 08/18/2024 9:20 AM EST Routine [facility] [address] [place] [address] Scooby Vega, DO [address] [place] [address] [facility] Start: 08-01-2024 End: 08-01-2024 Patient encounter procedure 08/01/2024 1:20 PM EST Routine [facility] [address] [place] [phone] Scooby Vega, DO [address] [place] [address] [facility] Start: 07-18-2024 End: 07-18-2024 Patient encounter procedure 07/18/2024 2:30 PM EST Routine [facility] [address] [place] [address] Scooby Vega, DO [address] [place] [address] [facility] Start: 07-18-2024 End: 07-18-2025 US biophysical profile w non stress test US biophysical profile w non stress test Imaging Routine 30 weeks gestation of Third trimester Expected: 07/18/2024 (Approximate), Expires: 07/18/2025 [facility] Work Phone: Comment on above: Expected: 07/18/2024 (Approximate), Expires: 07/18/2025 Start: 06-30-2024 End: 06-30-2025 US biophysical profile w non stress test US biophysical profile w non stress test Imaging Routine Gestational diabetes mellitus (GDM), antepartum, gestational diabetes method of control unspecified Expected: 06/30/2024 (Approximate), Expires: 06/30/2025 [facility] Comment on above: Expected: 06/30/2024 (Approximate), Expires: 06/30/2025 Start: 06-30-2024 End: 06-30-2025 US for US OB follow up transabdominal approach Imaging Routine Gestational diabetes mellitus (GDM), antepartum, gestational diabetes method of control unspecified Expected: 06/30/2024, Expires: 06/30/2025 [facility] Work Phone: Comment on above: Expected: 06/30/2024 , Expires: 06/30/2025 Start: 06-30-2024 End: 06-30-2024 Patient encounter procedure 06/30/2024 11:50 AM EST Routine [facility] [address] [place] [phone] Scooby Vega DO [address] [place] [address] [facility] Start: 06-25-2024 Urine culture [facility] Start: 06-25-2024 Bacteria identified in Urine by Culture Urine Culture [facility] Start: 06-02-2024 End: 06-02-2025 CBC panel - Blood by Automated count CBC Lab Routine Diabetes mellitus screening Expected: 06/02/2024 (Approximate), Expires: 06/02/2025 [facility] Work Phone: Comment on above: Expected: 06/02/2024 (Approximate), Expires: 06/02/2025 Start: 06-02-2024 End: 06-02-2025 Measurement of glucose 1 hour after glucose challenge for glucose tolerance test Glucose tolerance, 1 hour Lab Routine Diabetes mellitus screening Expected: 06/02/2024 (Approximate), Expires: 06/02/2025 [facility] Comment on above: Expected: 06/02/2024 (Approximate), Expires: 06/02/2025 Start: 06-02-2024 End: 06-02-2024 Patient encounter procedure 06/02/2024 10:10 AM EST Routine [facility] [address] [place] [phone] Scooby Vega, [address] [place] [address] [facility] Start: 05-02-2024 End: 05-02-2024 Patient encounter procedure 05/02/2024 3:30 PM EST Routine [facility] [address] [place] [phone] Emely Hunter PA [address] [place] [address] [facility] Start: 05-02-2024 End: 10-30-2024 [...] EST Office Visit [facility] [address] [place] [phone] Scooby Vega DO [address] [facility] [place] [address] [facility] Start: 04-04-2024 End: 04-04-2024 [...] Treatment [facility] [address] [facility] [address] [place] [address] Gretchen Moreno, PT [facility] Start: 03-23-2024 End: 03-23-2024 ambulatory 03/23/2024 1:00 PM EDT Treatment [facility] [address] [place] [address] Gretchen Moreno, PT [facility] Start: 03-18-2024 End: 03-18-2024 ambulatory 03/18/2024 1:30 PM EDT Treatment [facility] [address] [facility] [address] [place] [address] Gretchen Moreno, PT [facility] Start: 03-11-2024 End: 03-11-2024 ambulatory 03/11/2024 1:30 PM EDT Treatment [facility] [address] [facility] [address] [place] [address] Gretchen Moreno, PT [facility] Start: 03-07-2024 End: 03-07-2024 Patient encounter procedure 03/07/2024 10:10 AM EDT Routine [facility] [address] [place] [phone] Scooby Vega DO [address] [facility] [place] [address] [facility] Start: 03-03-2024 End: 03-03-2024 ambulatory 03/03/2024 10:30 AM EDT Treatment [facility] [address] [facility] [address] [place] [address] Gretchen Moreno, PT [facility] Start: 02-26-2024 End: 02-26-2024 ambulatory 02/26/2024 1:30 PM EDT Treatment [facility] [address] [facility] [address] [place] [address] Gretchen Moreno, PT Arrived [facility] Comment on above: Arrived Start: 02-25-2024 End: 02-25-2024 ambulatory 02/25/2024 10:30 AM EDT Treatment [facility] [address] [facility] [address] [place] [address] Gretchen Moreno, PT [facility] Start: 02-17-2024 End: 02-17-2024 ambulatory 02/17/2024 12:00 PM EDT Treatment [facility] [address] [facility] [address] [place] [address] Gretchen Moreno, PT [facility] Start: 02-12-2024 End: 02-11-2025 ABO/Rh ABO/Rh Lab Routine Missed menses Expected: 02/12/2024 (Approximate), Expires: 02/11/2025 [facility] Comment on above: Expected: 02/12/2024 (Approximate), Expires: 02/11/2025 Start: 02-12-2024 End: 02-11-2025 Blood type and Indirect antibody screen panel - Blood Type and screen Lab Routine Missed menses Expected: 02/12/2024 (Approximate), Expires: 02/11/2025 [facility] Work Phone: Comment on above: Expected: 02/12/2024 (Approximate), Expires: 02/11/2025 Start: 02-12-2024 End: 02-11-2025 US Pelvis transvaginal US OB transvaginal Imaging Routine Missed menses Expected: 02/12/2024 (Approximate), Expires: 02/11/2025 [facility] Comment on above: Expected: 02/12/2024 (Approximate), Expires: 02/11/2025 Start: 02-12-2024 End: 02-12-2024 ambulatory 02/12/2024 10:30 AM EDT Initial [facility] [address] [place] [address] [place] [address] [facility] Start: 02-12-2024 End: 02-12-2024 Professional / ancillary services management 02/12/2024 10:00 AM EDT [facility] [address] [place] [address] [facility] Start: 02-10-2024 End: 02-10-2024 ambulatory 02/10/2024 5:00 PM EDT Evaluation [facility] [address] [place] [address] Gretchen Moreno, PT Arrived [facility] Comment on above: Arrived Bacteria identified in Urine by Culture Urine culture Microbiology Routine Missed menses Ordered: 02/12/2024 [facility] Comment on above: Ordered: 02/12/2024 CBC W Auto Different ial panel - Blood CBC and differential Lab Routine Missed menses Ordered: 02/12/2024 [facility] Comment on above: Ordered: 02/12/2024 CHLAMYDIA TRACHOMATI S (GENITO/STI) CHLAMYDIA TRACHOMATIS (GENITO/STI) Lab Routine STD exposure Ordered: 05/02/2024 [facility] Comment on above: Ordered: 05/02/2024 Cytology Cervical or vaginal smear or scraping study Pap Smear Pathology and Cytology Routine Well woman exam with routine gynecological exam Ordered: 05/02/2024 [facility] Comment on above: Ordered: 05/02/2024 Hemoglobin A1c/Hemoglobin.total in Blood Hemoglobin A1c Lab Routine Missed menses Ordered: 02/12/2024 [facility] Comment on above: Ordered: 02/12/2024 Hepatitis B virus surface Ag [Presence] in Serum or Plasma by Immunoassay Hepatitis B surface antigen Lab Routine Missed menses Ordered: 02/12/2024 [facility] Comment on above: Ordered: 02/12/2024 Hepatitis C virus Ab [Presence] in Serum or Plasma by Immunoassay Hepatitis C antibody Lab Routine Missed menses Ordered: 02/12/2024 [facility] Comment on above: Ordered: 02/12/2024 HIV-1/HIV-2 antigen/antibody combination immunoassay HIV-1 and HIV-2 antibodies Lab Routine Missed menses Ordered: 02/12/2024 [facility] Comment on above: Ordered: 02/12/2024 Human papilloma viru s DNA [Presence] in Unspecified specimen by Probe with amplification HPV DNA probe, amplified Microbiology Routine Well woman exam with routine gynecological exam Ordered: 05/02/2024 [facility] Comment on above: Ordered: 05/02/2024 Neisseria gonorrhoea e DNA [Presence] in Unspecified specimen by JUAN ANTONIO with probe detection Neisseria gonorrhea DNA probe, direct Lab Routine STD exposure Ordered: 05/02/2024 [facility] Comment on above: Ordered: 05/02/2024 Reagin Ab [Presence] in Serum by RPR RPR Lab Routine Missed menses Ordered: 02/12/2024 [facility] Comment on above: Ordered: 02/12/2024 Rubella antibody, IgG Rubella an tibody, IgG Lab Routine Missed menses Ordered: 02/12/2024 [facility] Comment on above: Ordered: 02/12/2024 SURESWAB(R) ADVANCED VAGINITIS PLUS, TMA SURESWAB(R) ADVANCED VAGINITIS PLUS, TMA Pathology and Cytology Routine Vaginal discharge Ordered: 05/02/2024 [facility] Work Phone: Comment on above: Ordered: 05/02/2024 XR Hip - left 2 Views [facility] Payers Date Payer Category Payer Private Health Insurance ESTELA Decker [id number] 2022 Unknown NILAM Decker [place] [id number] 2022-Present [phone] [address] [place] [address] [id number] 1987 Unknown [id number] 2.16.840.1.371791.3.579.2 .593 1987 Unknown [id number] 2.16.840.1.182010.3.579.2 .593 1987 Unknown [id number] 2.16.840.1.566471.3.579.2 .1285 1987 Unknown [id number] 2.16.840.1.699721.3.579.2 .1285 1987 Unknown [id number] 2.16840.1.037663.3.579.2 .1285 1987 Unknown [id number] 2.840.1.111089.3.579.2 .1258 1987 Unknown [id number] 2.840.1.814480.3.579.2 .1258 1987 Unknown [id number] 2.840.1.657887.3.579.2 .1258 1987 Unknown [id number] 2.840.1.218611.3.579.2 .1258 1987 Unknown [id number] 2.16840.1.866366.3.579.2 .1258 1987 Unknown [id number] 2.16840.1.041040.3.579.2 .1258 1987 Unknown [id number] 2.16840.1.215606.3.579.2 .1258 1987 Unknown [id number] 2.16840.1.204011.3.579.2 .1258 1987 Unknown [id number] 2.16840.1.298952.3.579.2 .1258 1987 Unknown [id number] 2.16840.1.753943.3.579.2 .1258 1987 Unknown [id number] 2.16.840.1.254916.3.579.2 .1258 1987 Unknown [id number] 2.16.840.1.653820.3.579.2 .1258 1987 Unknown [id number] 2.16.840.1.189439.3.579.2 .1258 1987 Unknown [id number] 2.16.840.1.882039.3.579.2 .1258 1987 Unknown [id number] 2.16.840.1.372244.3.579.2 .1258 1987 Unknown [id number] 2.16.840.1.033754.3.579.2 .1258 1987 Unknown [id number] 2.16.840.1.783261.3.579.2 .1258 1987 Unknown [id number] 2.16.840.1.798288.3.579.2 .1258 1987 Unknown [id number] 2.16.840.1.265069.3.579.2 .1258 1987 Unknown [id number] 2.16.840.1.431520.3.579.2 .1258 1987 Unknown [id number] 2.16.840.1.000230.3.579.2 .1258 1959 Unknown [id number] Social History Date Type Detail Facility [facility] Work Phone: Start: 1985 Sex Assigned At Female F [facility] Start: 02-26-2023 [facility] Start: 11-09-2023 History of Social function [facility] Start: 11-09-2023 Tobacco use panel [facility] Start: 01-01-2024 [facility] Start: 1985 Sex assigned at Not on file [facility] Tobacco smoking stat [facility] Unknown if ever smoked [facility] Work Phone: Start: 06-27-2024 Sex Female (finding) [facility] Medical Equipment Procedure Code Equipment Code Equipment Origin al Text Equipment Identifier Dates 1 strip by In Vi tro route Daily Use in the morning prior to breakfast, 1 hour after each meal for a total of 4times daily. [id number] Start: 06-02-2024 End: 07-02-2024 1 each by In Vit ro route Daily Use to check FSBS four times daily [id number] Start: 06-02-2024 End: 07-02-2024 Goals Date Patient Goal Desired Activity /State Personal health goal Clinical Notes 02-10-2024 to 08-24-2024 Belle Kay, [facility] - 08/24/2024 1:20 PM ESTSusan Spitler, [facility] - 08/18/2024 9:20 AM ESTSusan Spitler, [facility] - 08/01/2024 1:20 PM ESTSusan Spitler, [facility] - 07/18/2024 2:30 PM EST Note Date [...] nursing note reviewed. Exam conducted with a paper cutter operator present. Vitals: Estimated body mass index [...] Scooby Vega DO documented in this encounter [facility] 08-18-2024 History of Present illness Narrative [...] nursing note reviewed. Exam conducted with a paper cutter operator present. Vitals: Estimated body mass index [...] Scooby Vega DO documented in this encounter [facility] 08-01-2024 History of Present illness Narrative [...] nursing note reviewed. Exam conducted with a paper cutter operator present. Vitals: Estimated body mass index [...] for routine OB appointment. Documented by Kalie Leora LPN on behalf of: Scooby Vega DO documented in this encounter [facility] 07-18-2024 History of Present illness Narrative [...] 81 mg, Daily Blood Glucose Monitoring Suppl (GREE Glucometer) w/Device kit 1 kit, Does not [...] nursing note reviewed. Exam conducted with a paper cutter operator present. Vitals: Estimated body mass index [...] of:Emely Hunter PA-C documented in this encounter [facility] 06-30-2024 History of Present illness Narrative [...] Scooby Vega DO documented in this encounter [facility] 06-02-2024 History of Present illness Narrative [...] nursing note reviewed. Exam conducted with a paper cutter operator present. Vitals: Estimated body mass index [...] Scooby Vega DO documented in this encounter [facility] 05-02-2024 History of Present illness Narrative [...] nursing note reviewed. Exam conducted with a paper cutter operator present. Vitals: Estimated body mass index [...] obtained without difficulty and patient was given [facility] order to have obtained. Orders Placed [...] of: JORDYN Fonseca documented in this encounter [facility] 04-04-2024 History of Present illness Narrative [...] nursing note reviewed. Exam conducted with a paper cutter operator present. Vitals: Estimated body mass index [...] Aspirin. Discussed again in regards to seeing [facility] & referral will be completed. Patient to have NST/BPP starting at 32 weeks gestation. Patient will have Anatomy Scan done at [facility]. Patient is Rh Negative and [...] Scooby Vega DO documented in this encounter [facility] 04-01-2024 History of Present illness Narrative [...] and it pops a lot randomly. Precautions: Barto Subjective: Pt states overall, ROM has improved. [...] to be instructed in home exercise program. Usp Goals: To be met in 10 weeks [...] sign below. Date: documented in this encounter [facility] 03-23-2024 History of Present illness Narrative [...] and it pops a lot randomly. Precautions: Barto Subjective: Pt states range of motion of [...] palpation Special Test: Pain with FADIR and CHARLSE; pain at end range ext/ER Treatment: Education: [...] to be instructed in home exercise program. Usp Goals: To be met in 10 weeks [...] sign below. Date: documented in this encounter [facility] 03-18-2024 History of Present illness Narrative [...] and it pops a lot randomly. Precautions: Barto Subjective: Pt states she feels like her [...] to be instructed in home exercise program. Olive Grader Goals: To be met in 10 weeks [...] sign below. Date: documented in this encounter [facility] 03-11-2024 History of Present illness Narrative [...] and it pops a lot randomly. Precautions: Barto Subjective: Pt states overall she believes hip [...] to be instructed in home exercise program. Usp Goals: To be met in 10 weeks [...] sign below. Date: documented in this encounter [facility] 03-07-2024 History of Present illness Narrative [...] nursing note reviewed. Exam conducted with a paper cutter operator present. Vitals: Estimated body mass index [...] meat, and stay away from [facility]. Patient has been consulted regarding any further do's and don'ts of . Patient voiced understanding and all questions and concerns were answered. Follow Up: Patient is to return in 4 weeks for routine OB appointment. Documented by Kalie Loera LPN on behalf of: Scooby Vega DO documented in this encounter [facility] 03-03-2024 History of Present illness Narrative [...] and it pops a lot randomly. Precautions: Barto Subjective: Pt states she has been doing [...] to be instructed in home exercise program. Olive Grader Goals: To be met in 10 weeks [...] sign below. Date: documented in this encounter [facility] 02-26-2024 History of Present illness Narrative [...] and it pops a lot randomly. Precautions: Barto Subjective: Pt states she was able to [...] to be instructed in home exercise program. Olive Grader Goals: To be met in 10 weeks [...] sign below. Date: documented in this encounter [facility] 02-17-2024 History of Present illness Narrative [...] and it pops a lot randomly. Precautions: Barto Subjective: Pt states she has not done [...] to be instructed in home exercise program. Usp Goals: To be met in 10 weeks [...] sign below. Date: documented in this encounter [facility] 02-12-2024 History of Present illness Narrative [...] meat, and stay away from [facility]. Patient has also been advised to not [...] Estee Cobb LPN documented in this encounter [facility] 02-10-2024 History of Present illness Narrative [...] and it pops a lot randomly. Precautions: Barto Subjective: left hip ant and lateral Pain: [...] to be instructed in home exercise program. Usp Goals: To be met in 10 weeks [...] sign below. Date: documented in this encounter [facility] Evaluation note No assessment inform ation available [facility] Work Phone: Evaluation note Diagnosis Onset [...] CREATED AUTHOR AUTHOR'S ORGANIZ ATION 07/03/2024 [facility] DATE CREATED AUTHOR AUTHOR'S ORGANIZ ATION 09/12/2024 [facility] EPIC Care Teams (unrecognized [...] December 01, 2023 End: December 01, 2023 [employer] Relationship Specialty Start Date End Date Jen Granados MD [address] [place] [facility] [place] [phone] PCP - General Family Medicine 03/10/23 [employer] Relationship Specialty Start Date End Date Jen Granados MD [address] [place] [facility] [place] [phone] PCP - General Family Medicine 03/10/23 [employer] Relationship Specialty Start Date End Date Jen Granados MD [address] [place] [facility] [place] [address] PCP - General Family Medicine 03/10/23 [employer] Relationship Specialty Start Date End Date Jen Granados MD [address] [place] [facility] [place] [phone] PCP - General Family Medicine 03/10/23 [employer] Relationship Specialty Start Date End Date Jen Granados MD [address] [place] [facility] [place] [phone] PCP - General Family Medicine 03/10/23 [employer] Relationship Specialty Start Date End Date Jen Granados MD [address] [place] [facility] [place] [address] PCP - General Family Medicine 03/10/23 [employer] Relationship Specialty Start Date End Date Jen Granados MD [address] [facility] [place] [address] PCP - General Family Medicine 03/10/23 [employer] Relationship Specialty Start Date End Date Jen Granados MD [address] [facility] [place] [address] PCP - General Family Medicine 03/10/23 [employer] Relationship Specialty Start Date End Date Jen Granados MD [address] [facility] [place] [address] PCP - General Family Medicine 03/10/23 [employer] Relationship Specialty Start Date End Date Jen Granados MD [address] [facility] [place] [address] PCP - General Family Medicine 03/10/23 [employer] Relationship Specialty Start Date End Date Jen Granados MD [address] [facility] [place] [address] PCP - General Family Medicine 03/10/23 [employer] Relationship Specialty Start Date End Date Jen Granados MD [address] [facility] [place] [address] PCP - General Family Medicine 03/10/23 [employer] Relationship Specialty Start Date End Date Jen Granados MD [address] [facility] [place] [address] PCP - General Family Medicine 03/10/23 [employer] Relationship Specialty Start Date End Date Jen Granados MD [address] [place] [facility] [place] [address] PCP - General Family Medicine 03/10/23 [employer] Relationship Specialty Start Date End Date Jen Granados MD [address] [place] [facility] [place] [address] PCP - General Family Medicine 03/10/23 [...] June 25, 2024 End: June 25, 2024 [employer] Relationship Specialty Start Date End Date Jen Granados MD [address] [place] [facility] [place] [address] PCP - General Family Medicine 03/10/23 [employer] Relationship Specialty Start Date End Date Jen Granados MD [address] [place] [facility] [place] [address] PCP - General Family Medicine 03/10/23 [employer] Relationship Specialty Start Date End Date Jen Granados MD [address] [place] [facility] [place] [phone] PCP - General Family Medicine 03/10/23 [employer] Relationship Specialty Start Date End Date Jen Granados MD [address] [place] [address] PCP - General Family Medicine 03/10/23 [employer] Relationship Specialty Start Date End Date Jen Granados MD [address] [place] [facility] [place] [phone] PCP - General Family Medicine 03/10/23 [employer] Relationship Specialty Start Date End Date Jen Granados MD [address] [place] [facility] [place] [address] PCP - General Family Medicine 03/10/23 [employer] Relationship Specialty Start Date End Date Jen Granados MD [address] [place] [facility] [place] [address] PCP - General Family Medicine 03/10/23 [...] LOW COMPLEX 20 MINS Ashley Rock MD [address] [place] [address] Gretchen Moreno PT Referral ID Status Reason Start Date Expiration Date V isits Requested Visits Authorized [id number] Authorized 02/10/2024 08/08/2024 99 99 Reason Comments [...] BE BASED ON THE PRIMARY CLINICAL RECORDS. [facility] [employer] [facility]. provides no warranty or guarantee of the accuracy or completeness of information in this document.
== END 2024-09-13 18:41 | disposition home or self-care (01) ==
LOC: FBCO 18:08 → FBC 18:10
PROVIDERS: PCP Family Medicine; Visit Provider Obstetrics & Gynecology
DX: O09.519 Supervision of elderly primigravida, unspecified trimester (principal)
CPT/HCPCS: 59025

== ENCOUNTER 2024-09-16 19:09 | Outpatient (OUT) | payer OTHER, SELFPAY ==
--- OUTSIDE RECORDS SUMMARY | 2024-09-16 19:11 | XMS_ITS | CCD ---
Author Organization [facility] Care Team Providers Care Delicatessen Clerk Name Role Phone DOREEN, DR HOFFMAN Attending Unavailable DARWIN, DR JEN Ramirez Primary Care Unavailable DOREEN, DR HOFFMAN Admitting Unavailable DOREEN, DR HOFFMAN Consulting Unavailable GARY, DR PAUL Admitting Unavailable GARY, DR PAUL Consulting Unavailable GARY, DR PAUL Attending Unavailable DARWIN, DR JEN Ramirez Primary Care Unavailable GaryScooby khan Attending Provider Jen Granados MD Primary Care Provider [phone] ROCK, ASHLEY K Attending Unavailable JEN GRANADOS Referring Unavailable JEN GRANADOS Primary Care Unavailable ALEIDA, ASHLEY K Attending Unavailable JEN GRANADOS Referring Unavailable JEN GRANADOS Primary Care Unavailable Jen Granados MD Primary Care Provider [phone] Jae Cervantes DO Attending Provider Unavailab Jae [...] Translations: [AMOXICILLIN] Drug Allergy 3 GI intolerance [facility] (3 sources) 12 Hour Decongestant Allergy to substance 3 Hives [facility] Medications Current Medications Medication Drug [...] 02/12/2024 Discontinued (Other) omega-3 acid ethyl esters (mcc) 1000 mg oral capsule (6 sources) take [...] UA Negative Negative - 4(70) +++ mg/dL [facility] Blood, UA Negative Negative - 50 Ulises/mcL [facility] Clarity, UA Clear [facility] Color, UA Yellow [facility] Glucose, UA Negative Negative - 2000(110) ++++ mg/dL [facility] Interpretation and review of laboratory results Abnormal [facility] Ketones, UA Negative Negative - 160(16) ++++ mg/dL [facility] Leukocytes, UA Trace Negative - 500+++ Clair/mcL [facility] Nitrite, UA Negative Negative - Positive [facility] pH, UA 7 5 - 9 [facility] Protein, UA Negative Negative - 2000(20) ++++ mg/dL [facility] Spec Grav, UA 1.015 1 - 1.03 [facility] Urobilinogen, UA 0.2 0.2 - 12 mg/dL [facility] US OB BPP W NON-STRESS on 08-20-2024 [place] [address] Ultrasound Report Signed Patient: RAPHAEL ELIZABETH MR#: [id number] : 1985 Acct:[id number] Age/Sex: 38 / F ADM Date: 08/19/24 Loc: US Attending Dr: Scooby Vega D.O. Ordering Physician: Scooby Vega D.O. Date of Service: 08/19/24 Procedure(s): US OB BPP w non-stress Accession Number(s): [id number] cc: Jen Granados M.D.; Scooby Vega D.O. [place] [id number] Patient Name: RAPHAEL ELIZABETH MRN: [id number]:[id number] date: 1985 Sex: F Assigned Patient Location: [facility] Current Patient Location: Accession/Order Number: [id number] Exam Date: 08/20/2024 08:58 Report Date: 08/20/2024 [...] Chan Hudson M.D.08/20/2024 9:03 AM Dictation Location: [place] [address] Electronically authenticated by: [id number] Y Date: 08/20/2024 09:03 Dictated By: Chan Hudson M.D. Signed By: 08/20/24904 DD/ 2 TD/TT: Nickel Plant Operator: [facility] Radiology, Radiologdora guillen MD - 08/20/2024 [place] [address] Ultrasound Report Signed Patient: RAPHAEL ELIZABETH MR#: [id number] : 1985 Acct:[id number] Age/Sex: 38 / F ADM Date: 08/19/24 Loc: US Attending Dr: Scooby Vega D.O. Ordering Physician: Scooby Vega D.O. Date of Service: 08/19/24 Procedure(s): US OB BPP w non-stress Accession Number(s): [id number] cc: Jen Granados M.D.; Scooby Vega D.O. The [place] [id number] Patient Name: RAPHAEL ELIZABETH MRN: [facility]:[id number] date: 1985 Sex: F Assigned Patient Location: [facility] Current Patient Location: Accession/Order Number: [id number] Exam Date: 08/20/2024 08:58 Report Date: 08/20/2024 [...] Chan Hudson M.D.08/20/2024 9:03 AM Dictation Location: [place] [address] Electronically authenticated by: [id number] Y Date: 08/20/2024 09:03 Dictated By: Chan Hudson M.D. Signed By: 08/20/24904 DD/ 2 TD/TT: Nickel Plant Operator: [facility] Radiology Study observation (narrative) [facility] US OB BPP W NON-STRESS Ordered By: Radiologist Radiology on 08-20-2024 [facility] Work Phone: Urinalysis macro (dipstick) panel (U)on 08-18-2024 Bilirubin, UA Negative Negative - 4(70) +++ mg/dL [facility] Blood, UA Negative Negative - 50 Ulises/mcL [facility] Clarity, UA Clear [facility] Color, UA Yellow [facility] Glucose, UA Negative Negative - 2000(110) ++++ mg/dL [facility] Interpretation and review of laboratory results Abnormal [facility] Ketones, UA Negative Negative - 160(16) ++++ mg/dL [facility] Leukocytes, UA Negative Negative - 500+++ Clair/mcL [facility] Nitrite, UA Negative Negative - Positive [facility] pH, UA 7 5 - 9 [facility] Protein, UA Trace Negative - 2000(20) ++++ mg/dL [facility] Spec Grav, UA 1.025 1 - 1.03 [facility] Urobilinogen, UA 0.2 0.2 - 12 mg/dL [facility] US OB BPP W NON-STRESS on 08-12-[address] [address] Ultrasound Report Signed Patient: RAPHAEL ELIZABETH MR#: [id number] : 1985 Acct:[id number] Age/Sex: 38 / F ADM Date: 08/12/24 Loc: US Attending Dr: Scooby Vega D.O. Ordering Physician: Scooby Vega D.O. Date of Service: 08/12/24 Procedure(s): US OB BPP w non-stress Accession Number(s): [id number] cc: Jen Granados M.D.; Scooby Vega D.O. The [address] [address] Patient Name: RAPHAEL ELIZABETH MRN: [facility]:[id number] date: 1985 Sex: F Assigned Patient Location: [facility] Current Patient Location: Accession/Order Number: [id number] Exam Date: 08/12/2024 22:10 Report Date: 08/12/2024 22:12 At the request of: SCOOBY VEGA DO Procedure: US OB BPP w non-stress Biophysical profile. Reason for exam: GBM. COMPARISON: Biophysical profile 08/06/2024. TECHNIQUE: Transabdominal imaging of the gravid uterus was obtained. FINDINGS: Completion Supervisor reports the BPP is 8 out of 8. SIDHDARTHA is normal 11.2 cm. heart rate 142 bpm. US/US OB BPP w non-stress IMPRESSION: BPP 8 out of 8. Impression dictated by: Lucas Martin Jr., D.O.08/12/2024 10:12 PM Dictation Location: [place] [address] Electronically authenticated by: [id number] Y Date: 08/12/2024 22:12 Dictated By: Lucas Martin M.D. Signed By: 08/12/242213 DD/ 11 TD/TT: Nickel Plant Operator: [facility] Radiology, Radiologdora guillen MD - 08/12/2024 [place] [address] Ultrasound Report Signed Patient: RAPHAEL ELIZABETH MR#: [id number] : 1985 Acct:[id number] Age/Sex: 38 / F ADM Date: 08/12/24 Loc: US Attending Dr: Scooby Vega D.O. Ordering Physician: Scooby Vega D.O. Date of Service: 08/12/24 Procedure(s): US OB BPP w non-stress Accession Number(s): [id number] cc: Jen Granados M.D.; Scooby Vega D.O. [place] [address] Patient Name: RAPHAEL ELIZABETH MRN: [id number]:[id number] date: 1985 Sex: F Assigned Patient Location: [facility] Current Patient Location: Accession/Order Number: [id number] Exam Date: 08/12/2024 22:10 Report Date: 08/12/2024 22:12 At the request of: SCOOBY VEGA DO Procedure: US OB BPP w non-stress Biophysical profile. Reason for exam: GBM. COMPARISON: Biophysical profile 08/06/2024. TECHNIQUE: Transabdominal imaging of the gravid uterus was obtained. FINDINGS: Completion Supervisor reports the BPP is 8 out of 8. SIDDHARTHA is normal 11.2 cm. heart rate 142 bpm. US/US OB BPP w non-stress IMPRESSION: BPP 8 out of 8. Impression dictated by: Lucas Martin Jr., D.O.08/12/2024 10:12 PM Dictation Location: [place] [address] Electronically authenticated by: [id number] Y Date: 08/12/2024 22:12 Dictated By: Lucas Martin M.D. Signed By: 08/12/242213 DD/ 11 TD/TT: Nickel Plant Operator: [facility] Radiology Study observation (narrative) [facility] US OB BPP W NON-STRESS Ordered By: Radiologist Radiology on 08-12-2024 [facility] Work Phone: US OB BPP W NON-STRESS on 08-06-[address] [address] Ultrasound Report Signed Patient: RAPHAEL ELIZABETH MR#: [id number] : 1985 Acct:[id number] Age/Sex: 38 / F ADM Date: 08/05/24 Loc: US Attending Dr: Scooby Vega D.O. Ordering Physician: Scooby Vega D.O. Date of Service: 08/05/24 Procedure(s): US OB BPP w non-stress Accession Number(s): [id number] cc: Jen Granados M.D.; Scooby Vega D.O. [place] [phone] Patient Name: RAPHAEL ELIZABETH MRN: [facility]:[id number] date: 1985 Sex: F Assigned Patient Location: [facility] Current Patient Location: Accession/Order Number: [id number] Exam Date: 08/05/2024 19:09 Report Date: 08/06/2024 [...] Signed By: 08/06/24 0753 DD/ 0751 TD/TT: Nickel Plant Operator: [facility] Radiology, Radiologi MD wilmer - 08/06/2024 [place] [address] Ultrasound Report Signed Patient: RAPHAEL ELIZABETH MR#: [id number] : 1985 Acct:[id number] Age/Sex: 38 / F ADM Date: 08/05/24 Loc: US Attending Dr: Scooby Vega D.O. Ordering Physician: Scooby Vega D.O. Date of Service: 08/05/24 Procedure(s): US OB BPP w non-stress Accession Number(s): [id number] cc: Jen Granados M.D.; Scooby Vega D.O. The [place] [id number] Patient Name: RAPHAEL ELIZABETH MRN: [id number]:[id number] date: 1985 Sex: F Assigned Patient Location: [facility] Current Patient Location: Accession/Order Number: [id number] Exam Date: 08/05/2024 19:09 Report Date: 08/06/2024 [...] Signed By: 08/06/24 0753 DD/ 075 TD/TT: Nickel Plant Operator: [facility] Radiology Study observation (narrative) [facility] US OB BPP W NON-STRESS Ordered By: Radiologist Radiology on 08-06-2024 [facility] Work Phone: US OB BPP W NON-STRESS on 08-01-2024 [place] [address] Ultrasound Report Signed Patient: RAPHAEL ELIZABETH MR#: [id number] : 1985 Acct:[id number] Age/Sex: 38 / F ADM Date: 07/29/24 Loc: US Attending Dr: Scooby Vega D.O. Ordering Physician: Scooby Vega D.O. Date of Service: 07/29/24 Procedure(s): US OB BPP w non-stress Accession Number(s): [id number] cc: Jen Granados M.D.; Scooby Vega D.O. [place] [phone] Patient Name: RAPHAEL ELIZABETH MRN: [facility]:[id number] date: 1985 Sex: F Assigned Patient Location: [facility] Current Patient Location: Accession/Order Number: [id number] Exam Date: 07/29/2024 19:04 Report Date: 08/01/2024 [...] M.D. Signed By: 08/01/24713 DD/ 0 TD/TT: Nickel Plant Operator: [facility] Radiology, Radiologi MD wilmer - 08/01/2024 [place] [address] Ultrasound Report Signed Patient: RAPHAEL ELIZABETH MR#: [id number] : 1985 Acct:[id number] Age/Sex: 38 / F ADM Date: 07/29/24 Loc: US Attending Dr: Scooby Vega D.O. Ordering Physician: Scooby Vega D.O. Date of Service: 07/29/24 Procedure(s): US OB BPP w non-stress Accession Number(s): [id number] cc: Jen Granados M.D.; Scooby Vega D.O. The [place] [address] Patient Name: RAPHAEL ELIZABETH MRN: [id number]:[id number] date: 1985 Sex: F Assigned Patient Location: [facility] Current Patient Location: Accession/Order Number: [id number] Exam Date: 07/29/2024 19:04 Report Date: 08/01/2024 [...] 8 Electronically authenticated by: ITKA KIMBALL Date: 08/01/2024 07:11 Dictated By: Tika Kimball M.D. Signed By: 08/01/24713 DD/ 0 TD/TT: Nickel Plant Operator: [facility] Radiology Study observation (narrative) [facility] US OB BPP W NON-STRESS Ordered By: Radiologist Radiology on 08-01-2024 [facility] Work Phone: Urinalysis macro (dipstick) panel (U)on 08-01-2024 Bilirubin, UA Negative Negative - 4(70) +++ mg/dL [facility] Blood, UA Negative Negative - 50 Ulises/mcL [facility] Clarity, UA Clear [facility] Color, UA Yellow [facility] Glucose, UA Negative Negative - 1999(110) ++++ mg/dL [facility] Interpretation and review of laboratory results Abnormal [facility] Ketones, UA Negative Negative - 160(16) ++++ mg/dL [facility] Leukocytes, UA Trace Negative - 500+++ Clair/mcL [facility] Nitrite, UA Negative Negative - Positive [facility] pH, UA 7.5 5 - 9 [facility] Protein, UA Negative Negative - 1999(20) ++++ mg/dL [facility] Spec Grav, UA 1.015 1 - 1.03 [facility] Urobilinogen, UA 0.2 0.2 - 12 mg/dL [facility] Urinalysis macro (dipstick) panel (U)on 07-18-2024 Bilirubin, UA Negative Negative - 4(70) +++ mg/dL [facility] Blood, UA Negative Negative - 50 Ulises/mcL [facility] Clarity, UA Clear [facility] Color, UA Yellow [facility] Glucose, UA Negative Negative - 1999(110) ++++ mg/dL [facility] Interpretation and review of laboratory results Normal [facility] Ketones, UA Negative Negative - 160(16) ++++ mg/dL [facility] Leukocytes, UA Negative Negative - 500+++ Clair/mcL [facility] Nitrite, UA Negative Negative - Positive [facility] pH, UA 7 5 - 9 [facility] Protein, UA Negative Negative - 1999(20) ++++ mg/dL [facility] Spec Grav, UA 1.025 1 - 1.03 [facility] Urobilinogen, UA 0.2 0.2 - 12 mg/dL [facility] ALL CBC WITH AUTO DIFFon BASOPHILS ABSOLUTE AUTO 0 [facility] Basophils/100 WBC (Bld) 0.2 % 0.2 - 2.0 % [facility] Eosinophils/100 WBC (Bld) 0.9 % 0.9 - 7.0 % [facility] Erythrocyte distribution width (RBC) [Ratio] 13 % 11.0 - 15.0 % [facility] Hematocrit (Bld) [Volume fraction] 32.2 % Low 36.0 - 48.0 % [facility] Hemoglobin (Bld) [Mass/Vol] 10.9 g/dL Low 12.0 - 16.0 g/dL [facility] IMMATURE GRANULOCYTES ABS AUTO 0.13 High [facility] Immature granulocytes/100 WBC (Bld) 1.4 % High 0.0 - 0.5 % [facility] Interpretation and review of laboratory results Abnormal [facility] LYMPHOCYTES ABSOLUTE AUTO 1.4 [facility] Lymphocytes/100 WBC (Bld) 15.4 % Low 20.5 - 60.0 % [facility] MCH (RBC) [Entitic mass] 32.7 pg 26.7 - 34.0 pg [facility] MCHC (RBC) [Mass/Vol] 33.9 g/dL 29.9 - 35.2 g/dL [facility] MCV (RBC) [Entitic vol] 96.7 fL 81.0 - 99.0 fL [facility] MONOCYTES ABSOLUTE AUTO 0.5 [facility] Monocytes/100 WBC (Bld) 4.8 % 1.7 - 12.0 % [facility] NEUTROPHILS ABSOLUTE AUTO 7.2 High [facility] Neutrophils/100 WBC (Bld) 77.3 % High 43.0 - 75.0 % [facility] Platelet mean volume (Bld) [Entitic vol] 9.2 fL Low 9.5 - 13.5 fL [facility] TBH EO # 0.1 [facility] TB PLT 229 [facility] RBC 3.33 Low [facility] WBC 9.3 [facility] Urinalysis macro (dipstick) panel (U)on 06-30-2024 Bilirubin, UA Negative Negative - 4(70) +++ mg/dL [facility] Blood, UA Negative Negative - 50 Ulises/mcL [facility] Clarity, UA Clear [facility] Color, UA Yellow [facility] Glucose, UA Negative Negative - 2000(110) ++++ mg/dL [facility] Interpretation and review of laboratory results Abnormal [facility] Ketones, UA Negative Negative - 160(16) ++++ mg/dL [facility] Leukocytes, UA Trace Negative - 500+++ Clair/mcL [facility] Nitrite, UA Negative Negative - Positive [facility] pH, UA 8.5 5 - 9 [facility] Protein, UA Positive Negative - 1999(20) ++++ mg/dL [facility] Comment on above: trace Spec Grav, UA 1.015 1 - 1.03 [facility] Urobilinogen, UA 0.2 0.2 - 12 mg/dL [facility] Basophils/100 WBC Manual cnt (Bld)on 06-25-2024 Basophils/100 WBC (Bld) Basophils/100 leukocytes in Blood by Manual count Low 0.2-2.0 [facility] Eosinophils/100 WBC Manual c nt (Bld)on 06-25-2024 Eosinophils/100 WBC (Bld) Eosinophils/100 leukocytes in Blood by Manual count 0.9-7.0 [facility] Erythrocyte distribution wid th Auto (RBC) [Ratio]on 06-25-2024 Erythrocyte distribution width (RBC) [Ratio] Erythrocyte distribution width [Ratio] by Automated count 11.0-15.0 [facility] Estimated glomerular filtrat ion rate (GFR) non- Americanon 06-25-2024 GFR/1.73 sq M.predicted among non-blacks MDRD (S/P/Bld) [Vol rate/Area] Estimated glomerular filtration rate (GFR) non- >=60 mL/min/1.73 m 2 [facility] Hematocrit Auto (Bld) [Volum e fraction]on 06-25-2024 Hematocrit (Bld) [Volume fraction] Hematocrit [Volume Fraction] of Blood by Automated count Low 36.0-48.0 [facility] Hemoglobin [Mass/volume] in Bloodon 06-25-2024 Hemoglobin (Bld) [Mass/Vol] Hemoglobin [Mass/volume] in Blood Low 12.0-16.0 [facility] Laboratory - Chemistry and C hemistry - challengeon 06-25-2024 Calcium [Mass/Vol] 8.2 mg/dL Low 8.5-10.1 [facility] Chloride [Moles/Vol] 99 mmol/L 98-107 [facility] CO2 [Moles/Vol] 21.2 mmol/L 21.0-32.0 [facility] Creatinine [Mass/Vol] 0.89 mg/dL 0.55-1.02 [facility] GFR/1.73 sq M.predicted MDRD (S/P/Bld) [Vol rate/Area] mL/min/{1.73_m2} >=60 mL/min/1.73 m 2 [facility] Glucose [Mass/Vol] 98 mg/dL 74-106 [facility] Potassium [Moles/Vol] 3.7 mmol/L 3.5-5.1 [facility] Sodium [Moles/Vol] 130 mmol/L Low 136-145 [facility] Urea nitrogen [Mass/Vol] 7.0 mg/dL 7.0-18.0 [facility] Urea nitrogen/Creatinine [Mass ratio] 7.9 mg/mg [facility] Bilirubin Ql (U) Negative NEGATIVE [facility] Glucose (U) [Mass/Vol] Negative NEGATIVE [facility] Ketones Ql (U) 15 mg/dL Abnormal NEGATIVE [facility] pH (U) 7.5 [pH] 5.0-9.0 [facility] Specific gravity (U) [Rel density] 1.015 1.005-1.025 [facility] Urobilinogen Qn (U) 1.0 {Ree'U}/dL 0.2-1.0 [facility] Laboratory - Hematology and Cell countson 06-25-2024 Band form neutrophils/100 WBC (Bld) 2.0 % 0-5 [facility] Lymphocytes/100 WBC (Bld) 2.0 % Low 20.5-60.0 [facility] Monocytes/100 WBC (Bld) 5.0 % 1.7-12.0 [facility] Laboratory - Microbiology an d Antimicrobial susceptibilityon 06-25-2024 SARS-CoV-2 (COVID-19) RNA JUAN ANTONIO+probe Ql (Unsp spec) Negative NEGATIVE [facility] Comment on above: This test [...] ationon 06-25-2024 Appearance (U) CLOUDY Abnormal CLEAR [facility] Color (U) DK YELLOW YELLOW [facility] Laboratory - Urinalysison Leukocyte esterase Test strip Ql (U) Negative NEGATIVE [facility] Nitrite Ql (U) Negative NEGATIVE [facility] Protein Ql (U) TRACE mg/dL NEG/TRACE [facility] Leukocytes [#/volume] correc leroy for nucleated erythrocytes in Blood by Automated counon 06-25-2024 WBC corrected for nucl RBC Auto (Bld) [#/Vol] Leukocytes [#/volume] corrected for nucleated erythrocytes in Blood by Automated coun 4.0-11.0 [facility] MCH Auto (RBC) [Entitic mass ]on 06-25-2024 MCH (RBC) [Entitic mass] MCH [Entitic mass] by Automated count 26.7-34.0 [facility] MCHC Auto (RBC) [Mass/Vol]on 06-25-2024 MCHC (RBC) [Mass/Vol] MCHC [Mass/volume] by Automated count 29.9-35.2 [facility] MCV Auto (RBC) [Entitic vol] on 06-25-2024 MCV (RBC) [Entitic vol] MCV [Entitic volume] by Automated count 81.0-99.0 [facility] No Panel Informationon 06-25 Absolute Basophils (Manual) 0.00 10 3/uL 0.00-0.10 [facility] Band Neutrophils # (Manual) 0.2 10 3/uL 0.0-0.3 [facility] Eosinophils # (Manual) 0.08 10 3/uL 0.00-0.70 [facility] Lymphocytes # (Manual) 0.16 10 3/uL Low 1.20-3.80 [facility] Monocytes # (Manual) 0.41 10 3/uL 0.30-0.80 [facility] Segmented Neutrophils # (Manual) 7.38 10 3/uL High 1.4-6.5 [facility] Urine Occult Blood Negative NEGATIVE [facility] Bedside Influenza Type A Antigen Positive Abnormal [facility] Comment on above: NOTE: Live attenuate d influenza vaccine viruses can cause apositive result for a rapid influenza diagnostic test ifadministered up to 7 days prior to rapid testing. Bedside Influenza Type B Antigen Negative [facility] Comment on above: Negative for Flu B p rotein antigen. Infection due to Flu Bcannot be ruled out. Flu B antigen in the sample may bebelow the detection limit of the test. Platelet mean volume Auto (B ld) [Entitic vol]on 06-25-2024 Platelet mean volume (Bld) [Entitic vol] Platelet mean volume [Entitic volume] in Blood by Automated count Low 9.5-13.5 [facility] Platelets Auto (Bld) [#/Vol] on 06-25-2024 Platelets (Bld) [#/Vol] Platelets [#/volume] in Blood by Automated count 150-450 [facility] RBC Auto (Bld) [#/Vol]on RBC (Bld) [#/Vol] Erythrocytes [#/volu me] in Blood by Automated count Low 4.20-5.40 [facility] Segmented neutrophils/100 WB C Manual cnt (Bld)on 06-25-2024 Segmented neutrophils/100 WBC (Bld) Manual blood segmented neutrophils/100 leukocytes High 43.0-75.0 [facility] Serum or plasma anion gap de terminationon 06-25-2024 Anion gap [Moles/Vol] Serum or plasma anion gap determination [facility] Urine Cultureon 06-25-2024 Bacteria identified Cx Nom (U) No Growth 2 Days PERFORMED BY: [facility] [address] [place] [address] PATHOLOGIST [employer] ARCHITECT DANTE PALACIOS M.D. Normal [facility] Comment on above: Performed By: #### C UU #### [facility] [address] IGP,APTIMA HPV,AGE GDLNon AGE GDLN ACOG TESTING Note . [facility] Comment on above: TESTS RESULT FLAG UN ITS REF RANGE LAB Clinician Provided Cytology Information Source.............Cervix No. of containers..01 ThinPrep Vial Age Algo ACOG Annel... FLAG LEGEND: L-Low Normal,H-High Normal,LL-Alert Low,HH-Alert High <-Panic Low,>-Panic High,A-Abnormal,AA-Critical Abnormal Performed at: 01 = [address] [address] Kathryn Maldonado MD, HPV APTIMA Negative Negative [facility] Comment on above: This nucleic acid am plification test detects fourteen high- risk HPV types (16,18,31,33,35,39,45,51,52,56,58,59,66,68) without differentiation. Performed at: =[facility] [address] [id number] Can Cutter: Kathryn Maldonado MD, Phone: [phone] Performed at: [address] [id number] Can Cutter: Kathryn Maldonado MD, Phone: [phone] IGP, APTIMA HPV, RFX 16/18,45 Note . [facility] Comment on above: TESTS RESULT FLAG UN ITS REF RANGE LAB DIAGNOSIS: 02 NEGATIVE FOR INTRAEPITHELIAL LESION OR MALIGNANCY. Specimen adequacy: 02 Satisfactory for evaluation. Endocervical and/or squamous metaplastic cells (endocervical component) are present. Performed by: 02 Thao Shankar, Accounting Officer . 02 Note: Note 02 The [...] High,A-Abnormal,AA-Critical Abnormal Performed at: 02 WB [facility] [address] [facility] [place] [address] Kathryn Maldonado MD, BRUSH-SPATULA CERVIX [facility] RECURRENT VAGINITIS (HTRX)on 05-05-2024 ATOPOBIUM VAGINAE 0 [facility] ATOPOBIUM VAGINAE Not detected [facility] BVAB 2,3 (BACTERIAL VAGINOSIS ASSOCIATED BACTERIA 2, 3); MOBILUNCUS SPP 0 [facility] BVAB 2,3 (BACTERIAL VAGINOSIS ASSOCIATED BACTERIA 2, 3); MOBILUNCUS SPP Not detected [facility] JED ALBICANS, PARAPSILOSIS, TROPICALIS 0 [facility] JED ALBICANS, PARAPSILOSIS, TROPICALIS Not detected [facility] JED GLABRATA 0 [facility] JED GLABRATA Not detected [facility] JED KRUSEI 0 [facility] JED KRUSEI Not detected [facility] CHLAMYDIA TRACHOMATIS 0 [facility] CHLAMYDIA TRACHOMATIS Not detected [facility] GARDNERELLA VAGINALIS 0 [facility] GARDNERELLA VAGINALIS Not detected [facility] MEGASPHAERA (TYPES 1, 2) 0 [facility] MEGASPHAERA (TYPES 1, 2) Not detected [facility] MYCOPLASMA GENITALIUM 0 [facility] MYCOPLASMA GENITALIUM Not detected [facility] NEISSERIA GONORRHOEAE 0 [facility] NEISSERIA GONORRHOEAE Not detected [facility] TRICHOMONAS VAGINALIS 0 [facility] TRICHOMONAS VAGINALIS Not detected [facility] Urinalysis macro (dipstick) panel (U)on 05-03-2024 Bilirubin, UA Negative Negative - 4(70) +++ mg/dL [facility] Blood, UA Negative Negative - 50 Ulises/mcL [facility] Clarity, UA Clear [facility] Color, UA Yellow [facility] Glucose, UA Negative Negative - 1999(110) ++++ mg/dL [facility] Interpretation and review of laboratory results Normal [facility] Ketones, UA Negative Negative - 160(16) ++++ mg/dL [facility] Leukocytes, UA Negative Negative - 500+++ Clair/mcL [facility] Nitrite, UA Negative Negative - Positive [facility] pH, UA 0.5 5 - 9 [facility] Protein, UA Negative Negative - 1999(20) ++++ mg/dL [facility] Spec Grav, UA 1.025 1 - 1.03 [facility] Urobilinogen, UA 1.0 0.2 - 12 mg/dL [facility] Human papilloma virus 16+18+ 31+33+35+39+45+51+52+56+58+59+66+68 DNA [Presence] in Denis 05-02-2024 HPV 16+18+31+33+35+39+4 5+51+52+56+58+59+66 +68 DNA Probe+sig amp Ql (Cvx) Human papilloma virus 16+18+31+33+35+39+45+51+52+5 6+58+59+66+68 DNA [Presence] in Cer Negative [facility] Comment on above: This nucleic acid am plification test detects fourteen high- risk HPV types (16,18,31,33,35,39,45,51,52,56,58,59,66,68)without differentiation.Performed at: =G - [facility] [address] [id number] Director: Kathryn Maldonado MD, Phone: [phone] at: - [facility] [address] [id number] Director: Kathryn Maldonado MD, Phone: [phone] No Panel Informationon 05-02 HPV High Risk Other Comment Note . [facility] Comment on above: TESTS RESULT FLAG UN ITS REF RANGE LAB JESE GNOSIS: 02 NEGATIVE FOR INTRAEPITHELIAL LESION OR MALIGNANCY.Specimen adequacy: 02 Satisfactory for evaluation. Endocervical and/or squamous metaplastic cells (endocervical component) are present.Performed by: 02 Thao Shankar, Accounting Officer. 02Note: Note 02 The Pap smear [...] Low,>-Panic High,A-Abnormal,AA-Critical Abnormal --Performed at:02 WB [facility] [address] [place] [address] Kathryn Maldnoado MD, Reference Lab Test Patient Age Note . [facility] Comment on above: TESTS RESULT FLAG UN ITS REF RANGE LAB Clinician Provided Cytology Information Source.............Cervix No. of containers..01 ThinPrep VialAge Richie Up... 30-65 FLAG LEGEND: L-Low Normal,H-High Normal,LL-Alert Low,HH-Alert High <-Panic Low,>-Panic High,A-Abnormal,AA-Critical Abnormal --Performed at:01 =G [facility] [address] [facility] [address] Kathryn Maldonado MD, AFP, SERUM, OPEN SPINA BIFID Aon 05-01-2024 AFP MOM 1.18 . [facility] AFP VALUE 61.8 ng/mL . [facility] COMMENT: Comment . [facility] Comment on above: Cydney Rodriguez , Ph.D., [facility] Director References: Available Upon Request. Multiples Of Median Cutoffs For AFP Elevations Chiang 2.5 Black 2.8 IDD 2.0 Twins 4.5 Abbreviation Definitions IDD - Insulin Dep Diabetes OSBR - Open Spina Bifida Risk For further inquiries contact [employer] [facility] at [phone]. This test was developed and its performance characteristics determined by [employer]. It has not been cleared or approved by the Food and Drug Administration. Performed at: [facility] [address] [place], [place] [id number] Can Cutter: Marissa Kovacs [facility], Phone: [phone] GEST. AGE ON COLLECTION DATE 19.0 . weeks [facility] GESTAT. AGE BASED ON LMP . [facility] Comment on above: Recalculations are n ot recommended when gestational dating by LMP and ultrasound are within 10 days. INSULIN DEP DIABETES No . [facility] INTERPRETATION Comment . [facility] Comment on above: Interpretation: Scre [...] Customer Services to discuss available options. The [employer] recommends amniocentesis be offered to women age 35 and older. [age] [facility] MULTIPLE GESTATION No . [facility] OSBR RISK 1 IN 6916 . [facility] RACE . [facility] RESULTS Report . [facility] TEST RESULTS: Negative . [facility] WEIGHT 135 . lbs [facility] N N LMP [id number] 3 15 N 1 Y 135 N N N N N White/ [facility] Alpha-fetoprotein (AFP) paige urement (yidrprvc-yu-xsxjvz)on 04-29-2024 AFP [MoM] Alpha-fetoprotein (A FP) measurement (imimvrex-yo-ndrmna) . [facility] Assess gestational ageon Gestational age Assess gestational age . [facility] Estimation of maternal age-s pecific risk of Down syndrome birthon 04-29-2024 Age [Time] Estimation of matern al age-specific risk of Down syndrome . [facility] Insulin dependent diabetes m ellitus detectionon 04-29-2024 Insulin dependent diabetes mellitus Ql Insulin dependent diabetes mellitus detection . [facility] Interpretation of serum or p lasma second trimester quad maternal screen (narrative reon 04-29-2024 Second trimester quad maternal screen Darshan [Interp] Interpretation of serum or plasma second trimester quad maternal screen (narrative re . [facility] Comment on above: Interpretation: Scre [...] 04-29 AFP Triple Screen Comment Comment . [facility] Comment on above: Cydney Rodriguez , Ph.D., DABCCDirectorReferences: Available Upon Request.Multiples Of Median Cutoffs For AFP ElevationsSingleton 2.5 Black 2.8IDD 2.0 Twins 4.5 Abbreviation DefinitionsIDD - Insulin Dep DiabetesOSBR - Open Spina Bifida RiskFor further inquiries contact [employer] at [phone].This test was developed and its performance characteristicsdetermined by [facility]. It has not been cleared or approvedby the Food and Drug Administration.Performed at: [facility] [id number] [place], [place] [id number] Director: Marissa Kovacs [facility], Phone: [phone] Alpha Fetoprotein Results Received Report . [facility] Gestational Age Calculation Method LMP . [facility] Comment on above: Recalculations are n ot recommended when gestational datingby LMP and ultrasound are within 10 days. Maternal Quad Test Risk 6916 . [facility] Maternal Race . [facility] Multiple No . [facility] Serum or plasma xcsbk-7-gryy protein measurement (mass/volume)on 04-29-2024 AFP [Mass/Vol] Serum or plasma cppzp-9-wqadjyuexoo measurement (mass/volume) . [facility] BOX TEST SENT OUTon BOX TEST SENT OUT Y [facility] UNITY BOX [facility] ALL CBC WITH AUTO DIFFon BASOPHILS ABSOLUTE AUTO 0.0 [facility] Basophils/100 WBC (Bld) 0.5 % 0.2 - 2.0 % [facility] Eosinophils/100 WBC (Bld) 0.9 % 0.9 - 7.0 % [facility] Erythrocyte distribution width (RBC) [Ratio] 11.9 % 11.0 - 15.0 % [facility] Hematocrit (Bld) [Volume fraction] 37.3 % 36.0 - 48.0 % [facility] Hemoglobin (Bld) [Mass/Vol] 12.7 g/dL 12.0 - 16.0 g/dL [facility] IMMATURE GRANULOCYTES ABS AUTO 0.02 [facility] Immature granulocytes/100 WBC (Bld) 0.3 % 0.0 - 0.5 % [facility] Interpretation and review of laboratory results Abnormal [facility] LYMPHOCYTES ABSOLUTE AUTO 1.8 [facility] Lymphocytes/100 WBC (Bld) 27.4 % 20.5 - 60.0 % [facility] MCH (RBC) [Entitic mass] 32.2 pg 26.7 - 34.0 pg [facility] MCHC (RBC) [Mass/Vol] 34.0 g/dL 29.9 - 35.2 g/dL [facility] MCV (RBC) [Entitic vol] 94.4 fL 81.0 - 99.0 fL [facility] MONOCYTES ABSOLUTE AUTO 0.3 [facility] Monocytes/100 WBC (Bld) 5.1 % 1.7 - 12.0 % [facility] NEUTROPHILS ABSOLUTE AUTO 4.4 [facility] Neutrophils/100 WBC (Bld) 65.8 % 43.0 - 75.0 % [facility] Platelet mean volume (Bld) [Entitic vol] 9.4 fL Low 9.5 - 13.5 fL [facility] EO # 0.1 [facility] TB PLT 215 [facility] RBC 3.95 Low [facility] WBC 6.6 [facility] HCG ( test) Ql (U)o n 02-12-2024 Interpretation and review of laboratory results Abnormal [facility] Preg Test, Ur Positive [facility] Urinalysis macro (dipstick) panel (U)on 02-12-2024 Bilirubin, UA Negative Negative - 4(70) +++ mg/dL [facility] Blood, UA Negative Negative - 50 Ulises/mcL [facility] Clarity, UA Clear [facility] Color, UA Yellow [facility] Glucose, UA Negative Negative - 1999(110) ++++ mg/dL [facility] Interpretation and review of laboratory results Normal [facility] Ketones, UA Negative Negative - 160(16) ++++ mg/dL [facility] Leukocytes, UA Negative Negative - 500+++ Clair/mcL [facility] Nitrite, UA Negative Negative - Positive [facility] pH, UA 6.5 5 - 9 [facility] Protein, UA Negative Negative - 1999(20) ++++ mg/dL [facility] Spec Grav, UA 1.015 1 - 1.03 [facility] Urobilinogen, UA 1.0 0.2 - 12 mg/dL [facility] No Panel Informationon 11-29 Human Chorionic Gonadotropin, Quant 2 mIU/mL [facility] Comment on above: 5-50 0.2-1 YINX61-69 0 1-2 KDVTZ999-1,000 2-3 XCCUP240-84,000 3-4 WEEKS1,000-50,000 4-5 WEEKS10,000-100,000 5-6 WEEKS15,000-200,000 6-8 WEEKS10,000-100,000 2-3 MONTHS No Panel Informationon 11-22 Human Chorionic Gonadotropin, Quant 3 mIU/mL [facility] Comment on above: 5-50 0.2-1 PGYC67-84 0 1-2 SAGCW405-7,000 2-3 XBOBM183-74,000 3-4 WEEKS1,000-50,000 4-5 WEEKS10,000-100,000 5-6 WEEKS15,000-200,000 6-8 WEEKS10,000-100,000 2-3 MONTHS No Panel Informationon 11-16 Human Chorionic Gonadotropin, Quant 6 mIU/mL [facility] Comment on above: 5-50 0.2-1 ABLD48-59 0 1-2 OZBLR524-2,000 2-3 HGKOZ506-76,000 3-4 WEEKS1,000-50,000 4-5 WEEKS10,000-100,000 5-6 WEEKS15,000-200,000 6-8 WEEKS10,000-100,000 2-3 MONTHS No Panel Informationon 11-08 Human Chorionic Gonadotropin, Quant 27 mIU/mL [facility] Comment on above: 5-50 0.2-1 ATLH30-54 0 1-2 PCFPK477-7,000 2-3 CDJMI126-49,000 3-4 WEEKS1,000-50,000 4-5 WEEKS10,000-100,000 5-6 WEEKS15,000-200,000 6-8 WEEKS10,000-100,000 2-3 MONTHS Basophils Auto (Bld) [#/Vol] on 10-23-2023 Basophils (Bld) [#/Vol] 0.0 10 3/uL 0.0-0.1 [facility] Basophils/100 WBC Auto (Bld) on 10-23-2023 Basophils/100 WBC (Bld) 0.8 % 0.2-2.0 [facility] Eosinophils/100 WBC Auto (Bl d)on 10-23-2023 Eosinophils/100 WBC (Bld) 1.4 % 0.9-7.0 [facility] Erythrocyte distribution wid th Auto (RBC) [Ratio]on 10-23-2023 Erythrocyte distribution width (RBC) [Ratio] 11.9 % 11.0-15.0 [facility] Hematocrit Auto (Bld) [Volum e fraction]on 10-23-2023 Hematocrit (Bld) [Volume fraction] 36.0 % 36.0-48.0 [facility] Hemoglobin [Mass/volume] in Bloodon 10-23-2023 Hemoglobin (Bld) [Mass/Vol] 11.8 g/dL 12.0-16.0 [facility] Krzysztof 10-23-2023 L Specimen: [id number] R eceived: 10/26/23 Status: MAIA Newell Num: [id number] Spec Type: Surgical Subm Dr: Scooby Vega Tissues: A Products of Conception - Spontaneous or Missed (POC) Procedures: HE/3, Gross/Micro L4 Age/ Patient Sex Location Account Attending Physician Raphael Elizabeth 37/F [facility] [id number] Sco[facility] Vega SPEC NUM: [id number] RECD: 10/26/23 STATUS: MAIA NEWELL NUM: [id number] JANIE: 10/23/[address]: Scooby Vega ENTERED: 10/26/[address] [facility] DR: Owen,Lab SPEC TYPE: Surgical [...] cm possible area of villous tissue identified. Picker Tender Helper sections to include the possible villous tissue are submitted in A1?A3. Clinical history: Missed CPT Codes 36621 -------- -------- Specimen: [id number] Received: 10/26/23-1305 Status: MAIA Newell Num: [id number] Spec Type: Surgical Subm Dr: Scooby Vega Tissues: A Products of Conception - Spontaneous or Missed (POC) Procedures: HE/3, Gross/Micro L4 -------- Patient: Raphael Elizabeth [id number] (Continued) -------- Signed (signature on file) Dante Palacios MD 10/27/23 1511 Normal [facility] - Hematology and Cell countson 10-23-2023 Immature granulocytes/100 WBC (Bld) 0.2 % 0.0-0.5 [facility] Leukocytes [#/volume] correc leroy for nucleated erythrocytes in Blood by Automated counon 10-23-2023 WBC corrected for nucl RBC Auto (Bld) [#/Vol] 5.1 10 3/uL 4.0-11.0 [facility] Lymphocytes Auto (Bld) [#/Vo l]on 10-23-2023 Lymphocytes (Bld) [#/Vol] 1.7 10 3/uL 1.2-3.8 [facility] Lymphocytes/100 WBC Auto (Bl d)on 10-23-2023 Lymphocytes/100 WBC (Bld) 32.8 % 20.5-60.0 [facility] MCH Auto (RBC) [Entitic mass ]on 10-23-2023 MCH (RBC) [Entitic mass] 31.1 pg 26.7-34.0 [facility] MCHC Auto (RBC) [Mass/Vol]on 10-23-2023 MCHC (RBC) [Mass/Vol] 32.8 g/dL 29.9-35.2 [facility] MCV Auto (RBC) [Entitic vol] on 10-23-2023 MCV (RBC) [Entitic vol] 95.0 fL 81.0-99.0 [facility] Monocytes Auto (Bld) [#/Vol] on 10-23-2023 Monocytes (Bld) [#/Vol] 0.3 10 3/uL 0.3-0.8 [facility] Monocytes/100 WBC Auto (Bld) on 10-23-2023 Monocytes/100 WBC (Bld) 5.5 % 1.7-12.0 [facility] Neutrophils Auto (Bld) [#/Vo l]on 10-23-2023 Neutrophils (Bld) [#/Vol] 3.0 10 3/uL 1.4-6.5 [facility] Neutrophils/100 WBC Auto (Bl d)on 10-23-2023 Neutrophils/100 WBC (Bld) 59.3 % 43.0-75.0 [facility] No Panel Informationon 10-22 Eosinophils # (Auto) 0.1 10 3/uL 0.0-0.7 [facility] Immature Granulocyte # (Auto) 0.01 10 3/uL 0.00-0.03 [facility] Platelet mean volume Auto (B ld) [Entitic vol]on 10-23-2023 Platelet mean volume (Bld) [Entitic vol] 9.0 fL 9.5-13.5 [facility] Platelets Auto (Bld) [#/Vol] on 10-23-2023 Platelets (Bld) [#/Vol] 182 10 3/uL 150-450 [facility] RBC Auto (Bld) [#/Vol]on RBC (Bld) [#/Vol] 3.79 10 6/uL 4.20-5.40 [facility] No Panel Informationon 10-11 Human Chorionic Gonadotropin, Quant 84805 mIU/mL [facility] Comment on above: 5-50 0.2-1 MLWC75-11 0 1-2 UOMTT953-5,000 2-3 XRHBG277-15,000 3-4 WEEKS1,000-50,000 4-5 WEEKS10,000-100,000 5-6 WEEKS15,000-200,000 6-8 WEEKS10,000-100,000 2-3 MONTHS No Panel Informationon 10-06 Human Chorionic Gonadotropin, Quant 44019 mIU/mL [facility] Comment on above: 5-50 0.2-1 SRSL07-65 0 1-2 EWUNE886-0,000 2-3 LNFZN852-56,000 3-4 WEEKS1,000-50,000 4-5 WEEKS10,000-100,000 5-6 WEEKS15,000-200,000 6-8 WEEKS10,000-100,000 2-3 MONTHS No Panel Informationon 10-04 Human Chorionic Gonadotropin, Quant 91735 mIU/mL [facility] Comment on above: 5-50 0.2-1 KHZG96-72 0 1-2 LSPSE554-1,000 2-3 YTZXD117-70,000 3-4 WEEKS1,000-50,000 4-5 WEEKS10,000-100,000 5-6 WEEKS15,000-200,000 6-8 WEEKS10,000-100,000 2-3 MONTHS PAP ACOG PANEL 2: 30 to 65on 03-11-2022 . . Normal [facility] Comment on above: Result Comment: Perf ormed at: WB Performed By: #### [id number] #### [facility] [address] [address] [address] Danni Jacobs Age Gdln ACOG Testing 30-65 Normal [facility] Comment on above: Performed By: #### [id number] #### [facility] [address] [address] [address] Danni Jacobs DIAGNOSIS: Comment Normal [facility] Comment on above: Result Comment: NEGA TIVE FOR INTRAEPITHELIAL LESION OR MALIGNANCY. THIS SPECIMEN WAS RESCREENED PART OF OUR MERCURY RECOVERER PROGRAM. Performed at: WB Performed By: #### [id number] #### [facility] [address] [place] [address] Dr. Danni Jacobs HPV Aptima Negative Normal Negative [facility] Comment on above: Result Comment: This nucleic acid amplification test detects fourteen high-risk HPV types (16,18,31,33,35,39,45,51,52,56,58,59,66,68) without differentiation. Performed at: =G Performed By: #### [id number] #### [facility] [address] [place] [address] Dr. Danni Jacobs Methodology: Comment Normal [facility] Comment on above: Result Comment: This liquid based ThinPrep(R) pap test was screened with the use of an image guided system. Performed at: WB Performed By: #### [id number] #### [facility] [address] [place] [address] Dr. Danni Jacobs Note: Comment Normal [facility] [...] Performed at: WB Performed By: #### [id number] #### [facility] [address] [place] [address] Dr. Danni Jacobs Performed by: Comment Normal [facility] Comment on above: Result Comment: Rocky Hull, Accounting Officer (ASCP) Performed at: WB Performed By: #### [id number] #### [facility] [address] [place] [address] Dr. Danni Jacobs QC reviewed by: Comment Normal [facility] Comment on above: Result Comment: Betzaida Ge, Supervisory Accounting Officer (ASCP) Performed at: WB Performed By: #### [id number] #### [facility] [address] [place] [address] Dr. Danni Jacobs Specimen adequacy: Comment Normal [facility] Comment on above: Result Comment: Sati sfactory for evaluation. Endocervical and/or squamous metaplastic cells (endocervical component) are present. Performed at: WB Performed By: #### [id number] #### [facility] [address] [address] [address] Danni Jacobs GLUCOSE BLOODon 04-22-2021 Glucose [Mass/Vol] 99 mg/dL Normal 74-106 [facility] Comment on above: Performed By: #### G YOSEPH, LIPID #### [facility] [address] [address] [address] Danni Jacobs LIPID PROFILEon 04-22-2021 CHOL-HDL RATIO NORM SEE BELOW Normal [facility] Comment on above: Result Comment: 3.3 - 4.4 LOW RISK 4.4 - 7.1 AVERAGE RISK 7.1 - 11.0 MODERATE RISK >11.0 HIGH RISK Performed By: #### G YOSEPH, LIPID #### [facility] [address] [place] [address] Dr. Danni Jacobs Cholesterol [Mass/Vol] 157 mg/dL Normal <=200 [facility] Comment on above: Performed By: #### G YOSEPH, LIPID #### [facility] [address] [place] [address] Dr. Danni Jacobs Cholesterol in HDL [Mass/Vol] 74 mg/dL Normal [facility] Comment on above: Performed By: #### G YOSEPH, LIPID #### [facility] [address] [address] [address] Danni Jacobs Cholesterol in LDL [Mass/Vol] 71.2 mg/dL Normal [facility] Comment on above: Performed By: #### G YOSEPH, LIPID #### [facility] [address] [place] [address] Dr. Danni Jacobs Cholesterol.total/C holesterol in HDL [Mass ratio] 2.1 {ratio} Normal [facility] Comment on above: Performed By: #### G YOSEPH, LIPID #### [facility] [address] [address] [address] Danni Jacobs HDL NORMAL > or = 60 mg/dl - LO W CARDIOVASCULAR RISK <40 mg/dl - HIGH CARDIOVASCULAR RISK Normal [facility] Comment on above: Performed By: #### G YOSEPH, LIPID #### [facility] [address] [place], [place] [address] Dr. Danni Jacobs LDL CALC NORMAL SEE BELOW Normal [facility] Comment on above: Result Comment: <100 mg/dl OPTIMAL 100 - 129 mg/dl NEAR OR ABOVE OPTIMAL 130 - 159 mg/dl BORDERLINE HIGH 160 - 189 mg/dl HIGH >190 mg/dl VERY HIGH Performed By: #### G YOSEPH, LIPID #### [facility] [address] [place], [place] [address] Dr. Danni Jacobs Triglyceride [Mass/Vol] 59 mg/dL Normal <=150 [facility] Comment on above: Performed By: #### G YOSEPH, LIPID #### [facility] [facility] [address], [place] [address] Dr. Danni Jacobs VLDL CALC 11.8 mg/dL Normal [facility] Comment on above: Performed By: #### G YOSEPH, LIPID #### [facility] [address], [place] [address] Dr. Danni Jaocbs Vital Signs Date Time Vital Sign Value Performing Clinician Philippe mera 08-24-2024 13:51-0500 Body mass index (BMI) [Ratio] 24.18 kg/m2 [employer] Work Phone: [facility] 08-24-2024 13:51-0500 Body weight 70.03 kg Scooby Gary DO Work Phone: [facility] 08-24-2024 13:51-0500 Diastolic blood pressure 68 mm[Hg] Scooby Gary DO Work Phone: [facility] 08-24-2024 13:51-0500 Systolic blood pressure 112 mm[Hg] Scooby Gary DO Work Phone: [facility] 08-18-2024 09:28-0500 Body mass index (BMI) [Ratio] 23.62 kg/m2 [employer] DO Work Phone: [facility] 08-18-2024 09:28-0500 Body weight 68.4 kg Scooby Gary DO Work Phone: [facility] 08-18-2024 09:28-0500 Diastolic blood pressure 72 mm[Hg] Scooby Gary DO Work Phone: [facility] 08-18-2024 09:28-0500 Systolic blood pressure 110 mm[Hg] Scooby Gary DO Work Phone: [facility] 08-01-2024 13:55-0500 Body mass index (BMI) [Ratio] 22.87 kg/m2 Scooby Gary DO Work Phone: [facility] 08-01-2024 13:55-0500 Body weight 66.22 kg Scooby Gary DO Work Phone: [facility] 08-01-2024 13:55-0500 Diastolic blood pressure 74 mm[Hg] Scooby Gary DO Work Phone: [facility] 08-01-2024 13:55-0500 Systolic blood pressure 116 mm[Hg] Scooby Gayr DO Work Phone: [facility] 07-18-2024 15:05-0500 Body mass index (BMI) [Ratio] 22.84 kg/m2 Scooby Gary DO Work Phone: [facility] 07-18-2024 15:05-0500 Body weight 66.13 kg Scooby Gary DO Work Phone: [facility] 07-18-2024 15:05-0500 Diastolic blood pressure 70 mm[Hg] Scooby Gary DO Work Phone: [facility] 07-18-2024 15:05-0500 Systolic blood pressure 118 mm[Hg] Scooby Gary DO Work Phone: [facility] 06-30-2024 12:01-0500 Body mass index (BMI) [Ratio] 22.26 kg/m2 Scooby Gary DO Work Phone: [facility] 06-30-2024 12:01-0500 Body weight 64.47 kg Scooby Gary DO Work Phone: [facility] 06-30-2024 12:01-0500 Diastolic blood pressure 70 mm[Hg] Scooby Gary DO Work Phone: [facility] 06-30-2024 12:01-0500 Systolic blood pressure 110 mm[Hg] Scooby Gary DO Work Phone: [facility] 06-02-2024 10:45-0500 Body mass index (BMI) [Ratio] 21.9 kg/m2 Scooby Gary DO Work Phone: [facility] 06-02-2024 10:45-0500 Body weight 63.41 kg Scooby Gary DO Work Phone: [facility] 06-02-2024 10:45-0500 Diastolic blood pressure 72 mm[Hg] Scooby Gary DO Work Phone: [facility] 06-02-2024 10:45-0500 Systolic blood pressure 116 mm[Hg] Scooby Gary DO Work Phone: [facility] 05-02-2024 16:20-0500 Body mass index (BMI) [Ratio] 21.61 kg/m2 Emely COBB Work Phone: [facility] 05-02-2024 16:20-0500 Body weight 62.6 kg Emely COBB Work Phone: [facility] 05-02-2024 16:20-0500 Diastolic blood pressure 68 mm[Hg] Emely COBB Work Phone: [facility] 05-02-2024 16:20-0500 Systolic blood pressure 120 mm[Hg] Emley COBB Work Phone: [facility] 04-29-2024 11:40-0500 Body weight Jen Granados MD Work Phone: [facility] 04-04-2024 14:55-0400 Body mass index (BMI) [Ratio] 21.27 kg/m2 Scooby Gary DO Work Phone: [facility] 04-04-2024 14:55-0400 Body weight 61.6 kg Scoboy Gary DO Work Phone: [facility] 04-04-2024 14:55-0400 Diastolic blood pressure 70 mm[Hg] Scooby Gary DO Work Phone: [facility] 04-04-2024 14:55-0400 Systolic blood pressure 116 mm[Hg] Scooby Gary DO Work Phone: [facility] 03-07-2024 10:47-0400 Body mass index (BMI) [Ratio] 20.07 kg/m2 Scooby Gary DO Work Phone: [facility] 03-07-2024 10:47-0400 Body weight 58.12 kg Scooby Gary DO Work Phone: [facility] 03-07-2024 10:47-0400 Diastolic blood pressure 68 mm[Hg] Scooby Gary DO Work Phone: [facility] 03-07-2024 10:47-0400 Systolic blood pressure 114 mm[Hg] Scooby Gary DO Work Phone: [facility] 12-01-2023 16:10-0400 Body height 170.18 cm Scooby Gary Work Phone: [facility] 12-01-2023 16:10-0400 Body mass index (BMI) [Ratio] 19.5 kg/m2 Scooby Gary Work Phone: [facility] 12-01-2023 16:10-0400 Body weight 56.69 kg Scooby Gary Work Phone: [facility] 12-01-2023 16:10-0400 Diastolic blood pressure 78 mm[Hg] Scooby Gary Work Phone: [facility] 12-01-2023 16:10-0400 Systolic blood pressure 112 mm[Hg] Scooby Gary Work Phone: [facility] Encounters Encounter Date Encounter Type [...] 08-06-2024 End: 08-06-2024 Clinisync Result Encounter Scooby Gayr DO Work Phone: [facility] Unsolicited [...] 06-25-2024 ambulatory Jen Granados MD Work Phone: [facility] Work Phone: Start: 06-25-2024 End: 06-25-2024 Departed Referred Jen Granados MD Work Phone: [facility]-LAB Path [facility] Start: 06-25-2024 Non-patient / Non-visit Jen Granados MD [facility] Phone[facility] Work Phone: Start: 06-02-2024 End: 06-02-2024 Bamboo flowsheet Scooby Gary DO Work Phone: [facility] Start: 06-02-2024 End: 06-02-2024 Bamboo flowsheet Scooby Gary DO Work Phone: [facility] Start: 06-02-2024 End: 06-02-2024 ambulatory SCOOBY VEGA Not Available Start: 06-02-2024 End: 06-02-2024 flow sheet Scooby Fragosoo DO Work Phone: [facility] Comment on above: Second trimester pre gnancy; 23 weeks gestation of ; with normal glucose tolerance test (GTT); Diabetes mellitus screening; Gestational diabetes mellitus (GDM), antepartum, gestational diabetes method of control unspecified; Elevated glucose tolerance test Start: 05-02-2024 Non-patient / Non-visit Jen Granados MD Work Phone: [facility] Work Phone: Start: 05-02-2024 End: 05-02-2024 ambulatory EMELY HUNTER Not Available Start: 05-02-2024 End: 05-02-2024 Patient encounter procedure Emely COBB Work Phone: [facility] Work Phone: Start: 05-02-2024 End: 05-02-2024 flow sheet Emely COBB Work Phone: [facility] Comment on above: Well woman exam with routine gynecological exam; Second trimester ; 19 weeks gestation of ; Vaginal discharge; STD exposure; Screening, , for anatomic survey Start: 05-02-2024 End: 05-02-2024 Bamboo flowsheet Emely COBB Work Phone: [facility] Start: 05-02-2024 End: 05-10-2024 Bamboo flowsheet Emely COBB Work Phone: [facility] Start: 05-02-2024 End: 05-10-2024 Clinisync Result Encounter Emely COBB Work Phone: [facility] External Department Unsolicited Start: 05-02-2024 End: 05-05-2024 External Result Encounter Emely COBB Work Phone: [facility] External Department Unsolicited Start: 04-29-2024 End: 05-01-2024 Clinisync Result Encounter Scooby Gary DO Work Phone: [facility] Unsolicited Start: 04-29-2024 End: 05-01-2024 Clinisync Result Encounter Scooby Gary DO Work Phone: [facility] Unsolicited Start: 04-29-2024 Non-patient / Non-visit Jen Granados MD Work Phone: [facility] Work Phone: Start: 04-04-2024 End: [...] [facility] Start: 04-04-2024 End: 04-04-2024 ambulatory [facility] Start: 04-01-2024 End: 04-01-2024 [...] CI PT Start: 03-23-2024 End: 03-23-2024 ambulatory Grecthen Moreno PT [facility] Comment on [...] Start: 02-08-2024 End: 02-08-2024 ambulatory [facility] Start: 02-08-2024 ambulatory [facility] Start: 12-01-2023 End: 12-01-2023 ambulatory Scooby Gary Work Phone: [facility] Work Phone: Start: 12-01-2023 End: 12-01-2023 Patient encounter procedure Scooby Gary Work Phone: [facility] Work Phone: Start: 11-30-2023 Non-patient / Non-visit Scooby Gary Work Phone: [facility] Work Phone: Start: 11-23-2023 Non-patient / Non-visit Scooby Gary Work Phone: [facility] Work Phone: Start: 11-17-2023 Non-patient / Non-visit Scooby Gary Work Phone: [facility] Work Phone: Start: 11-09-2023 Non-patient / Non-visit Scooby Gary Work Phone: [facility] Work Phone: Start: 11-09-2023 End: 11-09-2023 ambulatory EMELY HUNTER Not Available Start: 10-23-2023 End: 10-23-2023 ambulatory Scooby Gary [facility] Work Phone: Start: 10-23-2023 End: 10-23-2023 Departed Referred Scooby Gary Work Phone: [facility] Start: 10-23-2023 Non-patient / Non-visit Scooby Gary Work Phone: [facility] Work Phone: Start: 10-12-2023 Non-patient / Non-visit Scooby Gary Work Phone: [facility] Work Phone: Start: 10-07-2023 Non-patient / Non-visit Scooby Gary Work Phone: [facility] Work Phone: Start: 10-05-2023 Non-patient / Non-visit Scooby Gary Work Phone: [facility] Work Phone: Start: 03-03-2022 [...] Follow-up visit Follow-up ASHLEY ROCK Start: 02-26-2024 [facility] BOX TEST SENT OUT C orey Gary DO Work Phone: Start: 02-16-2024 ALL CBC WITH AUTO DIFF Scooby Gary DO Work Phone: Start: 02-12-2024 End: 02-12-2024 Urnls dip stick/tablet rgnt non-auto w/o micrscp Scooby Gary DO Work Phone: Plan of Treatment Date Care Activity Detail Author Start: 09-12-2024 End: 09-12-2024 Patient encounter procedure 09/12/2024 9:00 AM EDT Routine [facility] [address] [place] [address] Scooby Vega, DO [facility] [place] [address] [facility] Start: 09-05-2024 End: 09-05-2024 Patient encounter procedure 09/05/2024 1:30 PM EDT Routine [facility] [address] [place] [address] Scooby Vega, DO [facility] [place] [address] [facility] Start: 08-24-2024 End: 08-24-2025 CULTURE, GROUP B STREP WITH SUSCEPTIBLITY CULTURE, GROUP B STREP WITH SUSCEPTIBLITY Lab Routine Third trimester Expected: 08/24/2024, Expires: 08/24/2025 [facility] Work Phone: Comment on above: Expected: 08/24/2024 , Expires: 08/24/2025 Start: 08-24-2024 End: 08-24-2024 Patient encounter procedure 08/24/2024 1:20 PM EST Routine [facility] [address] [facility] [address] [place] [place] [phone] Scooby Vega, [address] [place] [address] [facility] Start: 08-18-2024 End: 08-18-2025 US for US OB follow up transabdominal approach Imaging Routine Multigravida of advanced maternal age in third trimester Expected: 08/18/2024, Expires: 08/18/2025 [facility] Work Phone: Comment on above: Expected: 08/18/2024 , Expires: 08/18/2025 Start: 08-18-2024 End: 08-18-2024 Patient encounter procedure 08/18/2024 9:20 AM EST Routine [facility] [address] [facility] [place] [address] Scooby Vega, DO [address] [place] [address] [facility] Start: 08-01-2024 End: 08-01-2024 Patient encounter procedure 08/01/2024 1:20 PM EST Routine [facility] [address] [place] [address] Scooby Vega, DO [address] [place] [address] [facility] Start: 07-18-2024 End: 07-18-2024 Patient encounter procedure 07/18/2024 2:30 PM EST Routine [facility] [address] [facility] [address] [place] [phone] Scooby Vega, DO [address] [place] [address] [facility] Start: 07-18-2024 End: 07-18-2025 US biophysical profile w non stress test US biophysical profile w non stress test Imaging Routine 30 weeks gestation of Third trimester Expected: 07/18/2024 (Approximate), Expires: 07/18/2025 [facility] Work Phone: Comment on above: Expected: 07/18/2024 (Approximate), Expires: 07/18/2025 Start: 06-30-2024 End: 06-30-2025 US biophysical profile w non stress test US biophysical profile w non stress test Imaging Routine Gestational diabetes mellitus (GDM), antepartum, gestational diabetes method of control unspecified Expected: 06/30/2024 (Approximate), Expires: 06/30/2025 [facility] Comment on above: Expected: 06/30/2024 (Approximate), Expires: 06/30/2025 Start: 06-30-2024 End: 06-30-2025 US for US OB follow up transabdominal approach Imaging Routine Gestational diabetes mellitus (GDM), antepartum, gestational diabetes method of control unspecified Expected: 06/30/2024, Expires: 06/30/2025 [facility] Work Phone: Comment on above: Expected: 06/30/2024 , Expires: 06/30/2025 Start: 06-30-2024 End: 06-30-2024 Patient encounter procedure 06/30/2024 11:50 AM EST Routine [facility] [address] [facility] [address] [place] [phone] Scooby Vega DO [address] [place] [address] [facility] Start: 06-25-2024 Urine culture [facility] Start: 06-25-2024 Bacteria identified in Urine by Culture Urine Culture [facility] Start: 06-02-2024 End: 06-02-2025 CBC panel - Blood by Automated count CBC Lab Routine Diabetes mellitus screening Expected: 06/02/2024 (Approximate), Expires: 06/02/2025 [facility] Work Phone: Comment on above: Expected: 06/02/2024 (Approximate), Expires: 06/02/2025 Start: 06-02-2024 End: 06-02-2025 Measurement of glucose 1 hour after glucose challenge for glucose tolerance test Glucose tolerance, 1 hour Lab Routine Diabetes mellitus screening Expected: 06/02/2024 (Approximate), Expires: 06/02/2025 [facility] Comment on above: Expected: 06/02/2024 (Approximate), Expires: 06/02/2025 Start: 06-02-2024 End: 06-02-2024 Patient encounter procedure 06/02/2024 10:10 AM EST Routine [facility] [address] [facility] [address] [place] [phone] Scooby Vega, [address] [place] [address] [facility] Start: 05-02-2024 End: 05-02-2024 Patient encounter procedure 05/02/2024 3:30 PM EST Routine [facility] [address] [place] [phone] Emely Hunter PA [address] [place] [address] [facility] Start: 05-02-2024 End: 10-30-2024 [...] EST Office Visit [facility] [address] [place] [phone] Scooby Vega DO [address] [facility] [address] [place] [address] [facility] Start: 04-04-2024 End: 04-04-2024 [...] Treatment [facility] [address] [facility] [address] [place] [address] Gretchen Moreno, PT [facility] Start: 03-23-2024 End: 03-23-2024 ambulatory 03/23/2024 1:00 PM EDT Treatment [facility] [address] [place] [address] [place] [address] Gretchen Moreno, PT [facility] Start: 03-18-2024 End: 03-18-2024 ambulatory 03/18/2024 1:30 PM EDT Treatment [facility] [address] [facility] [address] [place] [address] Gretchen Moreno, PT [facility] Start: 03-11-2024 End: 03-11-2024 ambulatory 03/11/2024 1:30 PM EDT Treatment [facility] [address] [facility] [address] [place] [address] Gretchen Moreno, PT [facility] Start: 03-07-2024 End: 03-07-2024 Patient encounter procedure 03/07/2024 10:10 AM EDT Routine [facility] [address] [phone] Scooby Vega DO [address] [facility] [place] [address] [facility] Start: 03-03-2024 End: 03-03-2024 ambulatory 03/03/2024 10:30 AM EDT Treatment [facility] [address] [facility] [address] [place] [address] Gretchen Moreno, PT [facility] Start: 02-26-2024 End: 02-26-2024 ambulatory 02/26/2024 1:30 PM EDT Treatment [facility] [address] [facility] [address] [place] [address] Gretchen Moreno, PT Arrived [facility] Comment on above: Arrived Start: 02-25-2024 End: 02-25-2024 ambulatory 02/25/2024 10:30 AM EDT Treatment [facility] [address] [facility] [address] [place] [address] Gretchen Moreno, PT [facility] Start: 02-17-2024 End: 02-17-2024 ambulatory 02/17/2024 12:00 PM EDT Treatment [facility] [address] [facility] [address] [place] [address] Gretchen Moreno, PT [facility] Start: 02-12-2024 End: 02-11-2025 ABO/Rh ABO/Rh Lab Routine Missed menses Expected: 02/12/2024 (Approximate), Expires: 02/11/2025 [facility] Comment on above: Expected: 02/12/2024 (Approximate), Expires: 02/11/2025 Start: 02-12-2024 End: 02-11-2025 Blood type and Indirect antibody screen panel - Blood Type and screen Lab Routine Missed menses Expected: 02/12/2024 (Approximate), Expires: 02/11/2025 [facility] Work Phone: Comment on above: Expected: 02/12/2024 (Approximate), Expires: 02/11/2025 Start: 02-12-2024 End: 02-11-2025 US Pelvis transvaginal US OB transvaginal Imaging Routine Missed menses Expected: 02/12/2024 (Approximate), Expires: 02/11/2025 [facility] Comment on above: Expected: 02/12/2024 (Approximate), Expires: 02/11/2025 Start: 02-12-2024 End: 02-12-2024 ambulatory 02/12/2024 10:30 AM EDT Initial [facility] [address] [place] [address] [place] [address] [facility] Start: 02-12-2024 End: 02-12-2024 Professional / ancillary services management 02/12/2024 10:00 AM EDT [facility] [address] [place] [address] [facility] Start: 02-10-2024 End: 02-10-2024 ambulatory 02/10/2024 5:00 PM EDT Evaluation [facility] [address] [place] [address] [place] [address] Gretchen Moreno, PT Arrived [facility] Comment on above: Arrived Bacteria identified in Urine by Culture Urine culture Microbiology Routine Missed menses Ordered: 02/12/2024 [facility] Comment on above: Ordered: 02/12/2024 CBC W Auto Different ial panel - Blood CBC and differential Lab Routine Missed menses Ordered: 02/12/2024 [facility] Comment on above: Ordered: 02/12/2024 CHLAMYDIA TRACHOMATI S (GENITO/STI) CHLAMYDIA TRACHOMATIS (GENITO/STI) Lab Routine STD exposure Ordered: 05/02/2024 [facility] Comment on above: Ordered: 05/02/2024 Cytology Cervical or vaginal smear or scraping study Pap Smear Pathology and Cytology Routine Well woman exam with routine gynecological exam Ordered: 05/02/2024 [facility] Comment on above: Ordered: 05/02/2024 Hemoglobin A1c/Hemoglobin.total in Blood Hemoglobin A1c Lab Routine Missed menses Ordered: 02/12/2024 [facility] Comment on above: Ordered: 02/12/2024 Hepatitis B virus surface Ag [Presence] in Serum or Plasma by Immunoassay Hepatitis B surface antigen Lab Routine Missed menses Ordered: 02/12/2024 [facility] Comment on above: Ordered: 02/12/2024 Hepatitis C virus Ab [Presence] in Serum or Plasma by Immunoassay Hepatitis C antibody Lab Routine Missed menses Ordered: 02/12/2024 [facility] Comment on above: Ordered: 02/12/2024 HIV-1/HIV-2 antigen/antibody combination immunoassay HIV-1 and HIV-2 antibodies Lab Routine Missed menses Ordered: 02/12/2024 [facility] Comment on above: Ordered: 02/12/2024 Human papilloma viru s DNA [Presence] in Unspecified specimen by Probe with amplification HPV DNA probe, amplified Microbiology Routine Well woman exam with routine gynecological exam Ordered: 05/02/2024 [facility] Comment on above: Ordered: 05/02/2024 Neisseria gonorrhoea e DNA [Presence] in Unspecified specimen by JUAN ANTONIO with probe detection Neisseria gonorrhea DNA probe, direct Lab Routine STD exposure Ordered: 05/02/2024 [facility] Comment on above: Ordered: 05/02/2024 Reagin Ab [Presence] in Serum by RPR RPR Lab Routine Missed menses Ordered: 02/12/2024 [facility] Comment on above: Ordered: 02/12/2024 Rubella antibody, IgG Rubella an tibody, IgG Lab Routine Missed menses Ordered: 02/12/2024 [facility] Comment on above: Ordered: 02/12/2024 SURESWAB(R) ADVANCED VAGINITIS PLUS, TMA SURESWAB(R) ADVANCED VAGINITIS PLUS, TMA Pathology and Cytology Routine Vaginal discharge Ordered: 05/02/2024 [facility] Work Phone: Comment on above: Ordered: 05/02/2024 XR Hip - left 2 Views [facility] Payers Date Payer Category Payer Private Health Insurance ESTELA Decker [id number] 2022 Unknown NILAM Decker [place] [id number] 2022-Present [phone] [address] [place] [id number] 1987 Unknown [id number] 2.16.840.1.583674.3.579.2 .593 1987 Unknown [id number] 2.16.840.1.345019.3.579.2 .593 1987 Unknown [id number] 2.16.840.1.983334.3.579.2 .1285 1987 Unknown [id number] 2.16.840.1.284272.3.579.2 .1285 1987 Unknown [id number] 2.16840.1.383166.3.579.2 .1285 1987 Unknown [id number] 2.840.1.734440.3.579.2 .1258 1987 Unknown [id number] 2.840.1.434245.3.579.2 .1258 1987 Unknown [id number] 2.840.1.439188.3.579.2 .1258 1987 Unknown [id number] 2.840.1.856075.3.579.2 .1258 1987 Unknown [id number] 2.16840.1.079750.3.579.2 .1258 1987 Unknown [id number] 2.16840.1.999847.3.579.2 .1258 1987 Unknown [id number] 2.16840.1.413789.3.579.2 .1258 1987 Unknown [id number] 2.16840.1.665994.3.579.2 .1258 1987 Unknown [id number] 2.16840.1.245367.3.579.2 .1258 1987 Unknown [id number] 2.16840.1.165872.3.579.2 .1258 1987 Unknown [id number] 2.16.840.1.125793.3.579.2 .1258 1987 Unknown [id number] 2.16.840.1.741226.3.579.2 .1258 1987 Unknown [id number] 2.16.840.1.150180.3.579.2 .1258 1987 Unknown [id number] 2.16.840.1.304778.3.579.2 .1258 1987 Unknown [id number] 2.16.840.1.687227.3.579.2 .1258 1987 Unknown [id number] 2.16.840.1.222005.3.579.2 .1258 1987 Unknown [id number] 2.16.840.1.314545.3.579.2 .1258 1987 Unknown [id number] 2.16.840.1.853960.3.579.2 .1258 1987 Unknown [id number] 2.16.840.1.491802.3.579.2 .1258 1987 Unknown [id number] 2.16.840.1.059836.3.579.2 .1258 1987 Unknown [id number] 2.16.840.1.124498.3.579.2 .1258 1959 Unknown [id number] Social History Date Type Detail Facility [facility] Work Phone: Start: 1985 Sex Assigned At Female F [facility] Start: 02-26-2023 [facility] Start: 11-09-2023 History of Social function [facility] Start: 11-09-2023 Tobacco use panel [facility] Start: 01-01-2024 [facility] Start: 1985 Sex assigned at Not on file [facility] Tobacco smoking stat [facility] Unknown if ever smoked [facility] Work Phone: Start: 06-27-2024 Sex Female (finding) [facility] Medical Equipment Procedure Code Equipment Code Equipment Origin al Text Equipment Identifier Dates 1 strip by In Vi tro route Daily Use in the morning prior to breakfast, 1 hour after each meal for a total of 4times daily. [id number] Start: 06-02-2024 End: 07-02-2024 1 each by In Vit ro route Daily Use to check FSBS four times daily [id number] Start: 06-02-2024 End: 07-02-2024 Goals Date Patient Goal Desired Activity /State Personal health goal Clinical Notes 02-10-2024 to 08-24-2024 Belle Kay, [facility] - 08/24/2024 1:20 PM ESTSusan Spitler, [facility] - 08/18/2024 9:20 AM ESTSusan Spitler, [facility] - 08/01/2024 1:20 PM ESTSusan Spitler, [facility] - 07/18/2024 2:30 PM EST Note Date [...] nursing note reviewed. Exam conducted with a medical collections specialist present. Vitals: Estimated body mass index is [...] Scooby Vega DO documented in this encounter [facility] 08-18-2024 History of Present illness [...] nursing note reviewed. Exam conducted with a medical collections specialist present. Vitals: Estimated body mass index is [...] Scooby Vega DO documented in this encounter [facility] 08-01-2024 History of Present illness [...] nursing note reviewed. Exam conducted with a medical collections specialist present. Vitals: Estimated body mass index is [...] Scooby Vega DO documented in this encounter [facility] 07-18-2024 History of Present illness [...] 81 mg, Daily Blood Glucose Monitoring Suppl (Xplornet Glucometer) w/Device kit 1 kit, Does not [...] nursing note reviewed. Exam conducted with a medical collections specialist present. Vitals: Estimated body mass index is [...] of:Emely Hunter PA-C documented in this encounter [facility] 06-30-2024 History of Present illness [...] Scooby Vega DO documented in this encounter [facility] 06-02-2024 History of Present illness [...] nursing note reviewed. Exam conducted with a medical collections specialist present. Vitals: Estimated body mass index is [...] to test for 2 weeks. Documented by Blele Villanueva LPN on behalf of: Scooby Vega DO documented in this encounter [facility] 05-02-2024 History of Present illness [...] nursing note reviewed. Exam conducted with a medical collections specialist present. Vitals: Estimated body mass index is [...] obtained without difficulty and patient was given [facility] order to have obtained. Orders [...] of: JORDYN Fonseca documented in this encounter [facility] 04-04-2024 History of Present illness [...] nursing note reviewed. Exam conducted with a medical collections specialist present. Vitals: Estimated body mass index is [...] Aspirin. Discussed again in regards to seeing [facility] & referral will be completed. Patient to have NST/BPP starting at 32 weeks gestation. Patient will have Anatomy Scan done at [facility]. Patient is Rh Negative and will [...] Scooby Vega DO documented in this encounter [facility] 04-01-2024 History of Present illness [...] and it pops a lot randomly. Precautions: [place] Subjective: Pt states overall, ROM has improved. [...] to be instructed in home exercise program. Prison Goals: To be met in 10 weeks [...] sign below. Date: documented in this encounter [facility] 03-23-2024 History of Present illness [...] and it pops a lot randomly. Precautions: [place] Subjective: Pt states range of motion of [...] to be instructed in home exercise program. Prison Goals: To be met in 10 weeks [...] sign below. Date: documented in this encounter [facility] 03-18-2024 History of Present illness [...] and it pops a lot randomly. Precautions: [place] Subjective: Pt states she feels like her [...] to be instructed in home exercise program. Hand Hose Cutter Goals: To be met in 10 weeks [...] sign below. Date: documented in this encounter [facility] 03-11-2024 History of Present illness [...] and it pops a lot randomly. Precautions: [place] Subjective: Pt states overall she believes hip [...] to be instructed in home exercise program. Prison Goals: To be met in 10 weeks [...] sign below. Date: documented in this encounter [facility] 03-07-2024 History of Present illness [...] nursing note reviewed. Exam conducted with a medical collections specialist present. Vitals: Estimated body mass index is [...] meat, [facility] Patient has been consulted regarding any further do's and don'ts of . Patient voiced understanding and all questions and concerns were answered. Follow Up: Patient is to return in 4 weeks for routine OB appointment. Documented by Kalie Loera LPN on behalf of: Scooby Vega DO documented in this encounter [facility] 03-03-2024 History of Present illness [...] and it pops a lot randomly. Precautions: [place] Subjective: Pt states she has been doing [...] to be instructed in home exercise program. Hand Hose Cutter Goals: To be met in 10 weeks [...] sign below. Date: documented in this encounter [facility] 02-26-2024 History of Present illness [...] and it pops a lot randomly. Precautions: [place] Subjective: Pt states she was able to [...] to be instructed in home exercise program. Hand Hose Cutter Goals: To be met in 10 weeks [...] sign below. Date: documented in this encounter [facility] 02-17-2024 History of Present illness [...] and it pops a lot randomly. Precautions: [place] Subjective: Pt states she has not done [...] to be instructed in home exercise program. Prison Goals: To be met in 10 weeks [...] sign below. Date: documented in this encounter [facility] 02-12-2024 History of Present illness [...] meat, [facility]. Patient has also been advised to [...] Estee Cobb LPN documented in this encounter [facility] 02-10-2024 History of Present illness [...] and it pops a lot randomly. Precautions: [place] Subjective: left hip ant and lateral Pain: [...] to be instructed in home exercise program. Prison Goals: To be met in 10 weeks [...] sign below. Date: documented in this encounter [facility] Healthcare Evaluation note No assessment inform ation available [facility] Work Phone: Evaluation note Diagnosis Onset Date Left hip pain acute [facility] Work Phone: Evaluation note* Diagnosis Pain of [...] CREATED AUTHOR AUTHOR'S ORGANIZ ATION 07/03/2024 [facility] DATE CREATED AUTHOR AUTHOR'S ORGANIZ ATION 09/12/2024 [facility] dical Specialists EPIC Care Teams (unrecognized [...] December 01, 2023 End: December 01, 2023 Delicatessen Clerk Relationship Specialty Start Date End Date Jen Granados MD [address] [place] [facility] [phone] PCP - General Family Medicine 03/10/23 Delicatessen Clerk Relationship Specialty Start Date End Date Jen Granados MD [address] [place] [facility] [phone] PCP - General Family Medicine 03/10/23 Delicatessen Clerk Relationship Specialty Start Date End Date Jen Granados MD [address] [place] [facility] [address] PCP - General Family Medicine 03/10/23 Delicatessen Clerk Relationship Specialty Start Date End Date Jen Granados MD [address] [place] [facility] [phone] PCP - General Family Medicine 03/10/23 Delicatessen Clerk Relationship Specialty Start Date End Date Jen Granados MD [address] [place] [facility] [phone] PCP - General Family Medicine 03/10/23 Delicatessen Clerk Relationship Specialty Start Date End Date Jen Granados MD [address] [place] [facility] [address] PCP - General Family Medicine 03/10/23 Delicatessen Clerk Relationship Specialty Start Date End Date Jen Granados MD [address] [facility] [place] [place] [address] PCP - General Family Medicine 03/10/23 Delicatessen Clerk Relationship Specialty Start Date End Date Jen Granados MD [address] [facility] [place] [place] [address] PCP - General Family Medicine 03/10/23 Delicatessen Clerk Relationship Specialty Start Date End Date Jen Granados MD [address] [facility] [place] [place] [address] PCP - General Family Medicine 03/10/23 Delicatessen Clerk Relationship Specialty Start Date End Date Jen Granados MD [address] [facility] [place] [place] [address] PCP - General Family Medicine 03/10/23 Delicatessen Clerk Relationship Specialty Start Date End Date Jen Granados MD [address] [facility] [place] [address] PCP - General Family Medicine 03/10/23 Delicatessen Clerk Relationship Specialty Start Date End Date Jen Granados MD [address] [facility] [place] [place] [address] PCP - General Family Medicine 03/10/23 Delicatessen Clerk Relationship Specialty Start Date End Date Jen Granados MD [address] [facility] [place] [place] [address] PCP - General Family Medicine 03/10/23 Delicatessen Clerk Relationship Specialty Start Date End Date Jen Granados MD [address] [place] [facility] [address] PCP - General Family Medicine 03/10/23 Delicatessen Clerk Relationship Specialty Start Date End Date Jen Granados MD [address] [place] [facility] [address] PCP - General Family Medicine 03/10/23 Team Status: Active Member Role Status Dates Jen Granados MD Primary Care Provider Active Start: April 29, 2024 Scooby Vega DO Attending Provider Active Start : April 29, 2024 Team Status: Active Member Role Status Dates Jen Granados MD Primary Care Provider Active Start: May 02, 2024 Emely Hnuter PA-C Attending Provider Active Start : May 02, 2024 Team Status: Active Member Role Status Dates Jen Granados MD Primary Care Provider Active Start: June 25, 2024 Jae Cervantes DO Attending Provider Active S tart: June 25, 2024 Team Status: Inactive Member Role Status Dates Jen Granados MD Primary Care Provider Active Start: June 25, 2024 End: June 25, 2024 Jae Cervanets DO Attending Provider Active S tart: June 25, 2024 End: June 25, 2024 Delicatessen Clerk Relationship Specialty Start Date End Date Jen Granados MD [address] [place] [facility] [address] PCP - General Family Medicine 03/10/23 Delicatessen Clerk Relationship Specialty Start Date End Date Jen Granados MD [address] [place] [facility] [address] PCP - General Family Medicine 03/10/23 Delicatessen Clerk Relationship Specialty Start Date End Date Jen Granados MD [address] [place] [facility] [phone] PCP - General Family Medicine 03/10/23 Delicatessen Clerk Relationship Specialty Start Date End Date Jen Granados MD [address] [place] [phone] PCP - General Family Medicine 03/10/23 Delicatessen Clerk Relationship Specialty Start Date End Date Jen Granados MD [address] [place] [facility] [phone] PCP - General Family Medicine 03/10/23 Delicatessen Clerk Relationship Specialty Start Date End Date Jen Granados MD [address] [place] [facility] [address] PCP - General Family Medicine 03/10/23 Delicatessen Clerk Relationship Specialty Start Date End Date Jen Granados MD [address] [place] [facility] [address] PCP - General Family Medicine 03/10/23 [...] of left lower limb, excluding foot Procedures [place] PHYSICAL THERAPY EVALUATION LOW COMPLEX 20 MINS Ashley Rock MD [address] [place] [address] Gretchen Moreno PT Referral ID Status Reason Start Date Expiration Date V isits Requested Visits Authorized [id number] Authorized 02/10/2024 08/08/2024 99 99 Reason Comments [...] BE BASED ON THE PRIMARY CLINICAL RECORDS. [facility] [employer] [facility]. provides no warranty or guarantee of the accuracy or completeness of information in this document.
--- NOTE | 2024-09-16 19:12 | US_ITS ---
[place] [id number] Patient Name: RAPHAEL GAMA MRN: [id number] date: 1985 Sex: F Assigned Patient Location: [facility] Current Patient Location: Accession/Order Number: [id number] Exam Date: 09/16/2024 20:37 Report Date: 09/16/2024 20:38 At the request of: BEVERLY SAHA DO Procedure: US OB BPP w non-stress Biophysical profile. Reason for exam: GBM. COMPARISON: Biophysical profile 09/09/2024 TECHNIQUE: Transabdominal imaging of the gravid uterus was obtained. FINDINGS: Convenience Store Clerk reports the BPP is 8 out of 8. SIDDHARTHA is normal 12 cm. heart rate 124bpm. US/US OB BPP w non-stress IMPRESSION: BPP 8 out of 8. Impression dictated by: Lucas Martin Jr., DKiranOKiarn09/16/2024 8:38 PM Dictation [facility] Electronically authenticated by: [id number] Date: 09/16/2024 20:38
[2024-09-16 19:47] VITALS: BP 129/80; PULSE 83
[2024-09-16 19:59] VITALS: BP 129/80; PULSE 83; TEMP 36.7
== END 2024-09-16 20:24 | disposition home or self-care (01) ==
LOC: US 19:09 → FBC 19:12
PROVIDERS: PCP Family Medicine; Visit Provider Obstetrics & Gynecology
DX: O24.419 Gestational diabetes mellitus in pregnancy, unspecified control (principal); Z3A.39 39 weeks gestation of pregnancy
CPT/HCPCS: 76818

== ENCOUNTER 2024-09-20 18:05 | Outpatient (OUT) | payer OTHER, SELFPAY ==
[2024-09-20 18:11] VITALS: BP 118/79; PULSE 76
--- OUTSIDE RECORDS SUMMARY | 2024-09-20 18:25 | XMS_ITS | CCD ---
Author Organization [facility] Care Team Providers Care Assistant Boiler Operator Name Role Phone DOREEN, DR HOFFMAN Attending Unavailable DARWIN, DR JEN Ramirez Primary Care Unavailable DOREEN, DR HOFFMAN Admitting Unavailable DOREEN, DR HOFFMAN Consulting Unavailable GARY, DR PAUL Admitting Unavailable GARY, DR PAUL Consulting Unavailable GARY, DR PAUL Attending Unavailable DARWIN, DR JEN Ramirez Primary Care Unavailable Scooby Vega Attending Provider Jen Granados MD Primary Care Provider [phone] ALEIDA ASHLEY K Attending Unavailable JEN GRANADOS Referring Unavailable JEN GRANADOS Primary Care Unavailable ALEIDA, ASHLEY K Attending Unavailable JEN GRANADOS Referring Unavailable JEN GRANADOS Primary Care Unavailable Jen Granados MD Primary Care Provider Jae Cervantes DO Attending Provider Unavailab Jae Redd Admitting Unavailable Jae Cervantes Attending Unavailable Jen Granados Primary Care Unavailable GaryLinhy Admitting Unavailable Gary, Scooby Attending Unavailable GARY, SCOOBY Attending Unavailable GARY, SCOOBY Attending Unavailable GARY, SCOOBY Attending Unavailable GARY, SCOOBY Attending Unavailable GARY, SCOOBY Attending Unavailable GARY, SCOOBY Attending Unavailable EMELY HUNTER Attending Unavailable GRETCHEN MORENO Attending Unavailable SHIN, ASHLEY Referring Unavailable MORENO GRETCHEN Attending Unavailable SHIN, ASHLEY Referring Unavailable MORENO GRETCHEN Attending Unavailable SHIN, ASHLEY Referring Unavailable MORENO, GRETCHEN Attending Unavailable SHIN, ASHLEY Referring Unavailable GARY, SCOOBY Attending Unavailable MORENO, GRETCHEN Attending Unavailable SHIN, ASHLEY Referring Unavailable MORENO GRETCHEN Attending Unavailable SHIN, ASHLEY Referring Unavailable GRETCHEN MORENO Attending Unavailable KALEB SHINIL Referring Unavailable GRETCHEN MORENO Attending Unavailable ASHLEY SHIN Referring Unavailable SCOOBY VEGA Attending Unavailable EMELY HUNTER Attending Unavailable SCOOBY VEGA Attending Unavailable SCOOBY VEGA Attending Unavailable Allergies Allergy Classification Reported Allergen(s) Allergy Type Date of Onset Reaction(s) Facility (20 sources) Amoxicillin; Translations: [AMOXICILLIN] Drug Allergy 3 GI intolerance [facility] (3 sources) 12 Hour Decongestant Allergy to substance 3 Hives [facility] Medications Current Medications Medication Drug Class(es) Dates [...] 02/12/2024 Discontinued (Other) omega-3 acid ethyl esters (correction) 1000 mg oral capsule (11 sources) take 1 capsule by mouth in [...] Active MV-Min-Fe Fum-FA-DH A ( 1 PO) (11 sources) MV-Min- Fe Fum-FA-DHA ( 1 PO) Take by mouth Active Completed/Discontinued Medications Medication Drug Class(es) Dates Sig (Normalized) Sig (Original) magnesium citrate (20 sources) Start: 03-07-2024 End: 04-04-2024 Magnesium Citrate [...] of ] 07-18-2024 Episodic Residual codes; unclassified (18 sources) Gestation period, 32 weeks; Translations: [32 weeks gestation of ] Onset: 08-01-2024 08-01-2024 Episodic Residual codes; unclassified (13 sources) Gestation period, 34 weeks; Translations: [34 weeks gestation of ] Onset: 08-18-2024 08-18-2024 Episodic Residual codes; unclassified (2 sources) Gestation period, 35 weeks; Translations: [35 weeks gestation of ] 08-24-2024 Episodic Residual codes; unclassified (2 sources) Gestation period, 39 weeks; Translations: [39 weeks gestation of ] 09-20-2024 Episodic Unclassified (1 source) New Patient Onset: [...] Reference Range Facility Urinalysis macro (dipstick) panel (U)Ordered By: Marichuy Matias on 09-20-2024 Bilirubin, UA Negative Negative - 4(70) +++ mg/dL [facility] Blood, UA Negative Negative - 50 Ulises/mcL [facility] Clarity, UA Clear [facility] Color, UA Yellow [facility] Glucose, UA Negative Negative - 1999(110) ++++ mg/dL [facility] Interpretation and review of laboratory results Normal [facility] Ketones, UA Negative Negative - 160(16) ++++ mg/dL [facility] Leukocytes, UA Trace Negative - 500+++ Clair/mcL [facility] Nitrite, UA Negative Negative - Positive [facility] pH, UA 7 5 - 9 [facility] Protein, UA Negative Negative - 1999(20) ++++ mg/dL [facility] Spec Grav, UA 1.015 1 - 1.03 [facility] Urobilinogen, UA 0.2 0.2 - 12 mg/dL [facility] US OB BPP W NON-STRESS on 09-19-2024 [place] [address] Ultrasound Report Signed Patient: RAPHAEL ELIZABETH MR#: [id number] : 1985 Acct:[id number] Age/Sex: 38 / F ADM Date: 09/09/24 Loc: US Attending Dr: Scooby Vega D.O. Ordering Physician: Scooby Vega D.O. Date of Service: 09/09/24 Procedure(s): US OB BPP w non-stress Accession Number(s): [id number] cc: Jen Granados M.D.; Scooby Vega D.O. [place] [address] Patient Name: RAPHAEL ELIZABETH MRN: [facility]:[id number] date: 1985 Sex: F Assigned Patient Location: [facility] Current Patient Location: Accession/Order Number: [id number] Exam Date: 09/09/2024 19:52 Report Date: 09/09/2024 19:58 At the request of: SCOOBY VEGA DO Procedure: US OB BPP w non-stress Ultrasound biophysical profile INDICATION: AMA COMPARISON: 09/02/2024 FINDINGS: Biophysical profile score is 8 out of 8. heart rate 135 bpm. SIDDHARTHA 10.6 cm Fetus is cephalic in presentation. US/US OB BPP w non-stress IMPRESSION: biophysical profile 8 out of 8 Impression dictated by: Jama Lopez M.D.09/09/2024 7:58 PM Dictation Location: [place] [address] Electronically authenticated by: [id number] Y Date: 09/09/2024 19:58 Dictated By: Jama Lopez M.D. Signed By: 09/19/24 1318 DD/ 57 TD/TT: Textile Technologist: [facility] Radiology, Radiologi MD wilmer - 09/19/2024 [place] [address] Ultrasound Report Signed Patient: RAPHAEL ELIZABETH MR#: [id number] : 1985 Acct:[id number] Age/Sex: 38 / F ADM Date: 09/09/24 Loc: US Attending Dr: Scooby Vega D.O. Ordering Physician: Scooby Vega D.O. Date of Service: 09/09/24 Procedure(s): US OB BPP w non-stress Accession Number(s): [id number] cc: Jen Granados M.D.; Scooby Vega D.O. The [place] [id number] Patient Name: RAPHAEL ELIZABETH MRN: [facility]:[id number] date: 1985 Sex: F Assigned Patient Location: [facility] Current Patient Location: Accession/Order Number: [id number] Exam Date: 09/09/2024 19:52 Report Date: 09/09/2024 19:58 At the request of: SCOOBY VEGA DO Procedure: US OB BPP w non-stress Ultrasound biophysical profile INDICATION: AMA COMPARISON: 09/02/2024 FINDINGS: Biophysical profile score is 8 out of 8. heart rate 135 bpm. SIDDHARTHA 10.6 cm Fetus is cephalic in presentation. US/US OB BPP w non-stress IMPRESSION: biophysical profile 8 out of 8 Impression dictated by: Jama Lopez M.D.09/09/2024 7:58 PM Dictation Location: [place] [address] Electronically authenticated by: [id number] Y Date: 09/09/2024 19:58 Dictated By: Jama Lopez M.D. Signed By: 09/19/24 1318 DD/ 57 TD/TT: Textile Technologist: [facility] US OB BPP W NON-STRESS Ordered By: Radiologist Radiology on 09-19-2024 [facility] Work Phone: US OB BPP W NON-STRESS on 09-16-2024 [place] [address] Ultrasound Report Signed Patient: RAPHAEL ELIZABETH MR#: [id number] : 1985 Acct:[id number] Age/Sex: 38 / F ADM Date: 09/16/24 Loc: US Attending Dr: Scooby Vega D.O. Ordering Physician: Scooby Vega D.O. Date of Service: 09/16/24 Procedure(s): US OB BPP w non-stress Accession Number(s): [id number] cc: Jen Granados M.D.; Scooby Vega D.O. [place] [id number] Patient Name: RAPHAEL ELIZABETH MRN: [facility]:[id number] date: 1985 Sex: F Assigned Patient Location: [facility] Current Patient Location: Accession/Order Number: [id number] Exam Date: 09/16/2024 20:37 Report Date: 09/16/2024 20:38 At the request of: SCOOBY VEGA DO Procedure: US OB BPP w non-stress Biophysical profile. Reason for exam: GBM. COMPARISON: Biophysical profile 09/09/2024 TECHNIQUE: Transabdominal imaging of the gravid uterus was obtained. FINDINGS: Wood Heel Fitter Machine reports the BPP is 8 out of 8. SIDDHARTHA is normal 12 cm. heart rate 124bpm. US/US OB BPP w non-stress IMPRESSION: BPP 8 out of 8. Impression dictated by: Lucas Martin Jr., D.O.09/16/2024 8:38 PM Dictation Location: [facility] Electronically authenticated by: [id number] Y Date: 09/16/2024 20:38 Dictated By: Lucas Martin M.D. Signed By: 09/16/242040 DD/ 37 TD/TT: Textile Technologist: [facility] Radiology Radiologdora guileln MD - 09/16/2024 [place] [address] Ultrasound Report Signed Patient: RPAHAEL ELIZABETH MR#: [id number] : 1985 Acct:[id number] Age/Sex: 38 / F ADM Date: 09/16/24 Loc: US Attending Dr: Scooby Vega D.O. Ordering Physician: Scooby Vega D.O. Date of Service: 09/16/24 Procedure(s): US OB BPP w non-stress Accession Number(s): [id number] cc: Jen Granados M.D.; Scooby Vega D.O. The [place] [id number] Patient Name: RAPHAEL ELIZABETH MRN: [facility]:[id number] date: 1985 Sex: F Assigned Patient Location: [facility] Current Patient Location: Accession/Order Number: [id number] Exam Date: 09/16/2024 20:37 Report Date: 09/16/2024 20:38 At the request of: SCOOBY VEGA DO Procedure: US OB BPP w non-stress Biophysical profile. Reason for exam: GBM. COMPARISON: Biophysical profile 09/09/2024 TECHNIQUE: Transabdominal imaging of the gravid uterus was obtained. FINDINGS: Wood Heel Fitter Machine reports the BPP is 8 out of 8. SIDDHARTHA is normal 12 cm. heart rate 124bpm. US/US OB BPP w non-stress IMPRESSION: BPP 8 out of 8. Impression dictated by: Lucas Martin Jr., D.O.09/16/2024 8:38 PM Dictation Location: [place] [address] Electronically authenticated by: [id number] Y Date: 09/16/2024 20:38 Dictated By: Lucas Martin M.D. Signed By: 09/16/242040 DD/ 37 TD/TT: Textile Technologist: [facility] Radiology Study observation (narrative) [facility] US OB BPP W NON-STRESS Ordered By: Radiologist Radiology on 09-16-2024 [facility] Work Phone: US OB BPP W NON-STRESS on 09-09-2024 Radiology Study observation (narrative) [facility] Urinalysis macro (dipstick) panel (U)on 08-24-2024 Bilirubin, UA Negative Negative - 4(70) +++ mg/dL [facility] Blood, UA Negative Negative - 50 Ulises/mcL [facility] Clarity, UA Clear [facility] Color, UA Yellow [facility] Glucose, UA Negative Negative - 2000(110) ++++ mg/dL [facility] Interpretation and review of laboratory results Abnormal [facility] Ketones, UA Negative Negative - 160(16) ++++ mg/dL [facility] Leukocytes, UA Trace Negative - 500+++ Clair/mcL [facility] Nitrite, UA Negative Negative - Positive [facility] pH, UA 7 5 - 9 [facility] Protein, UA Negative Negative - 2000(20) ++++ mg/dL [facility] Spec Grav, UA 1.015 1 - 1.03 [facility] Urobilinogen, UA 0.2 0.2 - 12 mg/dL [facility] US OB BPP W NON-STRESS on 08-20-2024 [place] [address] Ultrasound Report Signed Patient: RAPHAEL ELIZABETH MR#: [id number] : 1985 Acct:[id number] Age/Sex: 38 / F ADM Date: 08/19/24 Loc: US Attending Dr: Scooby Vega D.O. Ordering Physician: Scooby Vega D.O. Date of Service: 08/19/24 Procedure(s): US OB BPP w non-stress Accession Number(s): [id number] cc: Jen Granados M.D.; Scooby Vega D.O. The [place] [id number] Patient Name: RAPHAEL ELIZABETH MRN: [facility]:[id number] date: 1985 Sex: F Assigned Patient Location: [facility] Current Patient Location: Accession/Order Number: [id number] Exam Date: 08/20/2024 08:58 Report Date: 08/20/2024 [...] Chan Hudson M.D.08/20/2024 9:03 AM Dictation Location: [place] [address] Electronically authenticated by: [id number] Y Date: 08/20/2024 09:03 Dictated By: Chan Hudson M.D. Signed By: 08/20/24904 DD/ 2 TD/TT: Textile Technologist: [facility] Radiology, Radiologi MD wilmer - 08/20/2024 [place] [address] Ultrasound Report Signed Patient: RAPHAEL ELIZABETH MR#: [id number] : 1985 Acct:[id number] Age/Sex: 38 / F ADM Date: 08/19/24 Loc: US Attending Dr: Scooby Vega D.O. Ordering Physician: Scooby Vega D.O. Date of Service: 08/19/24 Procedure(s): US OB BPP w non-stress Accession Number(s): [id number] cc: Jen Granados M.D.; Scooby Vega D.O. [place] [address] Patient Name: RAPHAEL EILZABETH MRN: [facility]:[id number] date: 1985 Sex: F Assigned Patient Location: [facility] Current Patient Location: Accession/Order Number: [id number] Exam Date: 08/20/2024 08:58 Report Date: 08/20/2024 [...] Chan Hudson M.D.08/20/2024 9:03 AM Dictation Location: [place] [address] Electronically authenticated by: [id number] Y Date: 08/20/2024 09:03 Dictated By: Chan Hudson M.D. Signed By: 08/20/24904 DD/ 2 TD/TT: Textile Technologist: [facility] Radiology Study observation (narrative) [facility] US OB BPP W NON-STRESS Ordered By: Radiologist Radiology on 08-20-2024 [facility] Work Phone: Urinalysis macro (dipstick) panel (U)on 08-18-2024 Bilirubin, UA Negative Negative - 4(70) +++ mg/dL [facility] Blood, UA Negative Negative - 50 Ulises/mcL [facility] Clarity, UA Clear [facility] Color, UA Yellow [facility] Glucose, UA Negative Negative - 2000(110) ++++ mg/dL [facility] Interpretation and review of laboratory results Abnormal [facility] Ketones, UA Negative Negative - 160(16) ++++ mg/dL [facility] Leukocytes, UA Negative Negative - 500+++ Clair/mcL [facility] Nitrite, UA Negative Negative - Positive [facility] pH, UA 7 5 - 9 [facility] Protein, UA Trace Negative - 1999(20) ++++ mg/dL [facility] Spec Grav, UA 1.025 1 - 1.03 [facility] Urobilinogen, UA 0.2 0.2 - 12 mg/dL [facility] US OB BPP W NON-STRESS on 08-12-2024 [place] [address] Ultrasound Report Signed Patient: RAPHAEL ELIZABETH MR#: [id number] : 1985 Acct:[id number] Age/Sex: 38 / F ADM Date: 08/12/24 Loc: US Attending Dr: Scooby Vega D.O. Ordering Physician: Scooby Vega D.O. Date of Service: 08/12/24 Procedure(s): US OB BPP w non-stress Accession Number(s): [id number] cc: Jen Granados M.D.; Scooby Vega D.O. [address] [address] Patient Name: RAPHAEL EILZABETH MRN: [id number]:[id number] date: 1985 Sex: F Assigned Patient Location: [facility] Current Patient Location: Accession/Order Number: [id number] Exam Date: 08/12/2024 22:10 Report Date: 08/12/2024 22:12 At the request of: SCOOBY VEGA DO Procedure: US OB BPP w non-stress Biophysical profile. Reason for exam: GBM. COMPARISON: Biophysical profile 08/06/2024. TECHNIQUE: Transabdominal imaging of the gravid uterus was obtained. FINDINGS: Wood Heel Fitter Machine reports the BPP is 8 out of 8. SIDDHARTHA is normal 11.2 cm. heart rate 142 bpm. US/US OB BPP w non-stress IMPRESSION: BPP 8 out of 8. Impression dictated by: Lucas Martin Jr., D.O.08/12/2024 10:12 PM Dictation Location: [facility] Electronically authenticated by: [id number] Y Date: 08/12/2024 22:12 Dictated By: Lucas Martin M.D. Signed By: 08/12/242213 DD/ 11 TD/TT: Textile Technologist: [facility] Radiology Radiologdora guillen MD - 08/12/2024 [place] [address] Ultrasound Report Signed Patient: RAPHAEL ELIZABETH MR#: [id number] : 1985 Acct:[id number] Age/Sex: 38 / F ADM Date: 08/12/24 Loc: US Attending Dr: Scooby Vega D.O. Ordering Physician: Scooby Vega D.O. Date of Service: 08/12/24 Procedure(s): US OB BPP w non-stress Accession Number(s): [id number] cc: Jen Granados M.D.; Scooby Vega D.O. The [address] [address] Patient Name: RAPHAEL ELIZABETH MRN: [facility]:[id number] date: 1985 Sex: F Assigned Patient Location: [facility] Current Patient Location: Accession/Order Number: [id number] Exam Date: 08/12/2024 22:10 Report Date: 08/12/2024 22:12 At the request of: SCOOBY VEGA DO Procedure: US OB BPP w non-stress Biophysical profile. Reason for exam: GBM. COMPARISON: Biophysical profile 08/06/2024. TECHNIQUE: Transabdominal imaging of the gravid uterus was obtained. FINDINGS: Wood Heel Fitter Machine reports the BPP is 8 out of 8. SIDDHARTHA is normal 11.2 cm. heart rate 142 bpm. US/US OB BPP w non-stress IMPRESSION: BPP 8 out of 8. Impression dictated by: Lucas Martin Jr., D.O.08/12/2024 10:12 PM Dictation Location: [place] [address] Electronically authenticated by: [id number] Y Date: 08/12/2024 22:12 Dictated By: Lucas Martin M.D. Signed By: 08/12/242213 DD/ 11 TD/TT: Textile Technologist: [facility] Radiology Study observation (narrative) [facility] US OB BPP W NON-STRESS Ordered By: Radiologist Radiology on 08-12-2024 [facility] Work Phone: US OB BPP W NON-STRESS on 08-06-2024 [place] [address] Ultrasound Report Signed Patient: RAPHAEL ELIZABETH MR#: [id number] : 1985 Acct:[id number] Age/Sex: 38 / F ADM Date: 08/05/24 Loc: US Attending Dr: Scooby Vega D.O. Ordering Physician: Scooby Vega D.O. Date of Service: 08/05/24 Procedure(s): US OB BPP w non-stress Accession Number(s): [id number] cc: Jen Granados M.D.; Scooby Vega D.O. The [place] [id number] Patient Name: RAPHAEL ELIZABETH MRN: [id number] date: 1985 Sex: F Assigned Patient Location: [facility] Current Patient Location: Accession/Order Number: [id number] Exam Date: 08/05/2024 19:09 Report Date: 08/06/2024 [...] Signed By: 08/06/24 0753 DD/ 0751 TD/TT: Textile Technologist: [facility] Radiology, Radiologi MD wilmer - 08/06/2024 [place] [address] Ultrasound Report Signed Patient: RAPHAEL ELIZABETH MR#: [id number] : 1985 Acct:[id number] Age/Sex: 38 / F ADM Date: 08/05/24 Loc: US Attending Dr: Scooby Vega D.O. Ordering Physician: Scooby Vega D.O. Date of Service: 08/05/24 Procedure(s): US OB BPP w non-stress Accession Number(s): [id number] cc: Jen Granados M.D.; Scooby Vega D.O. The [address] [address] Patient Name: RAPHAEL ELIZABETH MRN: [facility]:[id number] date: 1985 Sex: F Assigned Patient Location: [facility] Current Patient Location: Accession/Order Number: [id number] Exam Date: 08/05/2024 19:09 Report Date: 08/06/2024 [...] Signed By: 08/06/24 0753 DD/ 075 TD/TT: Textile Technologist: [facility] Radiology Study observation (narrative) [facility] US OB BPP W NON-STRESS Ordered By: Radiologist Radiology on 08-06-2024 [facility] Work Phone: US OB BPP W NON-STRESS on 08-01-2024 [place] [address] Ultrasound Report Signed Patient: RAPHAEL ELIZABETH MR#: [id number] : 1985 Acct:[id number] Age/Sex: 38 / F ADM Date: 07/29/24 Loc: US Attending Dr: Scooby Vega D.O. Ordering Physician: Scooby Vega D.O. Date of Service: 07/29/24 Procedure(s): US OB BPP w non-stress Accession Number(s): [id number] cc: Jen Granados M.D.; Scooby Vega D.O. The [place] [address] Patient Name: RAPHAEL ELIZABETH MRN: [id number] date: 1985 Sex: F Assigned Patient Location: [facility] Current Patient Location: Accession/Order Number: [id number] Exam Date: 07/29/2024 19:04 Report Date: 08/01/2024 [...] M.D. Signed By: 08/01/24713 DD/ 0 TD/TT: Textile Technologist: [facility] Radiology, Radiologi MD wilmer - 08/01/2024 [place] [address] Ultrasound Report Signed Patient: RAPHAEL ELIZABETH MR#: [id number] : 1985 Acct:[id number] Age/Sex: 38 / F ADM Date: 07/29/24 Loc: US Attending Dr: Scooby Vega D.O. Ordering Physician: Scooby Vega D.O. Date of Service: 07/29/24 Procedure(s): US OB BPP w non-stress Accession Number(s): [id number] cc: Jen Granados M.D.; Scooby Vega D.O. The [place] [address] Patient Name: RAPHAEL ELIZABETH MRN: [facility]:[id number] date: 1985 Sex: F Assigned Patient Location: [facility] Current Patient Location: Accession/Order Number: [id number] Exam Date: 07/29/2024 19:04 Report Date: 08/01/2024 07:11 At the request of: SCOOBY GARY Procedure: US OB BPP w non-stress EXAMINATION: [...] profile score: 8 Electronically authenticated by: TIKA IKMBALL Date: 08/01/2024 07:11 Dictated By: Tika Kimball M.D. Signed By: 08/01/24713 DD/ 0 TD/TT: Textile Technologist: [facility] Radiology Study observation (narrative) [facility] US OB BPP W NON-STRESS Ordered By: Radiologist Radiology on 08-01-2024 [facility] Work Phone: Urinalysis macro (dipstick) panel (U)on 08-01-2024 Bilirubin, UA Negative Negative - 4(70) +++ mg/dL [facility] Blood, UA Negative Negative - 50 Ulises/mcL [facility] Clarity, UA Clear [facility] Color, UA Yellow [facility] Glucose, UA Negative Negative - 2000(110) ++++ mg/dL [facility] Interpretation and review of laboratory results Abnormal [facility] Ketones, UA Negative Negative - 160(16) ++++ mg/dL [facility] Leukocytes, UA Trace Negative - 500+++ Clair/mcL [facility] Nitrite, UA Negative Negative - Positive [facility] pH, UA 7.5 5 - 9 [facility] Protein, UA Negative Negative - 2000(20) ++++ mg/dL [facility] Spec Grav, UA 1.015 1 - 1.03 [facility] Urobilinogen, UA 0.2 0.2 - 12 mg/dL [facility] Urinalysis macro (dipstick) panel (U)on 07-18-2024 Bilirubin, UA Negative Negative - 4(70) +++ mg/dL [facility] Blood, UA Negative Negative - 50 Ulises/mcL [facility] Clarity, UA Clear [facility] Color, UA Yellow [facility] Glucose, UA Negative Negative - 1999(110) ++++ mg/dL [facility] Interpretation and review of laboratory results Normal [facility] Ketones, UA Negative Negative - 160(16) ++++ mg/dL [facility] Leukocytes, UA Negative Negative - 500+++ Clair/mcL [facility] Nitrite, UA Negative Negative - Positive [facility] pH, UA 7 5 - 9 [facility] Protein, UA Negative Negative - 1999(20) ++++ mg/dL [facility] Spec Grav, UA 1.025 1 - 1.03 [facility] Urobilinogen, UA 0.2 0.2 - 12 mg/dL [facility] ALL CBC WITH AUTO DIFFon BASOPHILS ABSOLUTE AUTO 0 [facility] Basophils/100 WBC (Bld) 0.2 % 0.2 - 2.0 % [facility] Eosinophils/100 WBC (Bld) 0.9 % 0.9 - 7.0 % [facility] Erythrocyte distribution width (RBC) [Ratio] 13 % 11.0 - 15.0 % [facility] Hematocrit (Bld) [Volume fraction] 32.2 % Low 36.0 - 48.0 % [facility] Hemoglobin (Bld) [Mass/Vol] 10.9 g/dL Low 12.0 - 16.0 g/dL [facility] IMMATURE GRANULOCYTES ABS AUTO 0.13 High [facility] Immature granulocytes/100 WBC (Bld) 1.4 % High 0.0 - 0.5 % [facility] Interpretation and review of laboratory results Abnormal [facility] LYMPHOCYTES ABSOLUTE AUTO 1.4 [facility] Lymphocytes/100 WBC (Bld) 15.4 % Low 20.5 - 60.0 % [facility] MCH (RBC) [Entitic mass] 32.7 pg 26.7 - 34.0 pg [facility] MCHC (RBC) [Mass/Vol] 33.9 g/dL 29.9 - 35.2 g/dL [facility] MCV (RBC) [Entitic vol] 96.7 fL 81.0 - 99.0 fL [facility] MONOCYTES ABSOLUTE AUTO 0.5 [facility] Monocytes/100 WBC (Bld) 4.8 % 1.7 - 12.0 % [facility] NEUTROPHILS ABSOLUTE AUTO 7.2 High [facility] Neutrophils/100 WBC (Bld) 77.3 % High 43.0 - 75.0 % [facility] Platelet mean volume (Bld) [Entitic vol] 9.2 fL Low 9.5 - 13.5 fL [facility]H EO # 0.1 [facility] PLT 229 [facility] RBC 3.33 Low [facility] WBC 9.3 [facility] Urinalysis macro (dipstick) panel (U)on 06-30-2024 Bilirubin, UA Negative Negative - 4(70) +++ mg/dL [facility] Blood, UA Negative Negative - 50 Ulises/mcL [facility] Clarity, UA Clear [facility] Color, UA Yellow [facility] [facility] Glucose, UA Negative Negative - 2000(110) ++++ mg/dL [facility] Interpretation and review of laboratory results Abnormal [facility] Ketones, UA Negative Negative - 160(16) ++++ mg/dL [facility] Leukocytes, UA Trace Negative - 500+++ Clair/mcL [facility] Nitrite, UA Negative Negative - Positive [facility] pH, UA 8.5 5 - 9 [facility] Protein, UA Positive Negative - 2000(20) ++++ mg/dL [facility] Comment on above: trace Spec Grav, UA 1.015 1 - 1.03 [facility] Urobilinogen, UA 0.2 0.2 - 12 mg/dL [facility] Basophils/100 WBC Manual cnt (Bld)on 06-25-2024 Basophils/100 WBC (Bld) Basophils/100 leukocytes in Blood by Manual count Low 0.2-2.0 [facility] Eosinophils/100 WBC Manual c nt (Bld)on 06-25-2024 Eosinophils/100 WBC (Bld) Eosinophils/100 leukocytes in Blood by Manual count 0.9-7.0 [facility] Erythrocyte distribution wid th Auto (RBC) [Ratio]on 06-25-2024 Erythrocyte distribution width (RBC) [Ratio] Erythrocyte distribution width [Ratio] by Automated count 11.0-15.0 [facility] Estimated glomerular filtrat ion rate (GFR) non- Americanon 06-25-2024 GFR/1.73 sq M.predicted among non-blacks MDRD (S/P/Bld) [Vol rate/Area] Estimated glomerular filtration rate (GFR) non- >=60 mL/min/1.73 m 2 [facility] Hematocrit Auto (Bld) [Volum e fraction]on 06-25-2024 Hematocrit (Bld) [Volume fraction] Hematocrit [Volume Fraction] of Blood by Automated count Low 36.0-48.0 [facility] Hemoglobin [Mass/volume] in Bloodon 06-25-2024 Hemoglobin (Bld) [Mass/Vol] Hemoglobin [Mass/volume] in Blood Low 12.0-16.0 [facility] Laboratory - Chemistry and C hemistry - challengeon 06-25-2024 Calcium [Mass/Vol] 8.2 mg/dL Low 8.5-10.1 [facility] Chloride [Moles/Vol] 99 mmol/L 98-107 [facility] CO2 [Moles/Vol] 21.2 mmol/L 21.0-32.0 [facility] Creatinine [Mass/Vol] 0.89 mg/dL 0.55-1.02 [facility] GFR/1.73 sq M.predicted MDRD (S/P/Bld) [Vol rate/Area] mL/min/{1.73_m2} >=60 mL/min/1.73 m 2 [facility] Glucose [Mass/Vol] 98 mg/dL 74-106 [facility] Potassium [Moles/Vol] 3.7 mmol/L 3.5-5.1 [facility] Sodium [Moles/Vol] 130 mmol/L Low 136-145 [facility] Urea nitrogen [Mass/Vol] 7.0 mg/dL 7.0-18.0 [facility] Urea nitrogen/Creatinine [Mass ratio] 7.9 mg/mg [facility] Bilirubin Ql (U) Negative NEGATIVE [facility] Glucose (U) [Mass/Vol] Negative NEGATIVE [facility] Ketones Ql (U) 15 mg/dL Abnormal NEGATIVE [facility] pH (U) 7.5 [pH] 5.0-9.0 [facility] Specific gravity (U) [Rel density] 1.015 1.005-1.025 [facility] Urobilinogen Qn (U) 1.0 {Ree'U}/dL 0.2-1.0 [facility] Laboratory - Hematology and Cell countson 06-25-2024 Band form neutrophils/100 WBC (Bld) 2.0 % 0-5 [facility] Lymphocytes/100 WBC (Bld) 2.0 % Low 20.5-60.0 [facility] Monocytes/100 WBC (Bld) 5.0 % 1.7-12.0 [facility] Laboratory - Microbiology an d Antimicrobial susceptibilityon 06-25-2024 SARS-CoV-2 (COVID-19) RNA JUAN ANTONIO+probe Ql (Unsp spec) Negative NEGATIVE [facility] Comment on above: This test has not [...] Abnormal CLEAR [facility] Color (U) DK YELLOW YELLOW [facility] Laboratory - Urinalysison Leukocyte esterase Test strip Ql (U) Negative NEGATIVE [facility] Nitrite Ql (U) Negative NEGATIVE [facility] Protein Ql (U) TRACE mg/dL NEG/TRACE [facility] Leukocytes [#/volume] correc leroy for nucleated erythrocytes in Blood by Automated counon 06-25-2024 WBC corrected for nucl RBC Auto (Bld) [#/Vol] Leukocytes [#/volume] corrected for nucleated erythrocytes in Blood by Automated coun 4.0-11.0 [facility] MCH Auto (RBC) [Entitic mass ]on 06-25-2024 MCH (RBC) [Entitic mass] MCH [Entitic mass] by Automated count 26.7-34.0 [facility] MCHC Auto (RBC) [Mass/Vol]on 06-25-2024 MCHC (RBC) [Mass/Vol] MCHC [Mass/volume] by Automated count 29.9-35.2 [facility] MCV Auto (RBC) [Entitic vol] on 06-25-2024 MCV (RBC) [Entitic vol] MCV [Entitic volume] by Automated count 81.0-99.0 [facility] No Panel Informationon 06-25 Absolute Basophils (Manual) 0.00 10 3/uL 0.00-0.10 [facility] Band Neutrophils # (Manual) 0.2 10 3/uL 0.0-0.3 [facility] Eosinophils # (Manual) 0.08 10 3/uL 0.00-0.70 [facility] Lymphocytes # (Manual) 0.16 10 3/uL Low 1.20-3.80 [facility] Monocytes # (Manual) 0.41 10 3/uL 0.30-0.80 [facility] Segmented Neutrophils # (Manual) 7.38 10 3/uL High 1.4-6.5 [facility] Urine Occult Blood Negative NEGATIVE [facility] Bedside Influenza Type A Antigen Positive Abnormal [facility] Comment on above: NOTE: Live attenuate d influenza vaccine viruses can cause apositive result for a rapid influenza diagnostic test ifadministered up to 7 days prior to rapid testing. Bedside Influenza Type B Antigen Negative [facility] Comment on above: Negative for Flu B [...] Low 9.5-13.5 [facility] Platelets Auto (Bld) [#/Vol] on 06-25-2024 Platelets (Bld) [#/Vol] Platelets [#/volume] in Blood by Automated count 150-450 [facility] RBC Auto (Bld) [#/Vol]on RBC (Bld) [#/Vol] Erythrocytes [#/volu me] in Blood by Automated count Low 4.20-5.40 [facility] Segmented neutrophils/100 WB C Manual cnt (Bld)on 06-25-2024 Segmented neutrophils/100 WBC (Bld) Manual blood segmented neutrophils/100 leukocytes High 43.0-75.0 [facility] Serum or plasma anion gap de terminationon 06-25-2024 Anion gap [Moles/Vol] Serum or plasma anion gap determination [facility] Urine Cultureon 06-25-2024 Bacteria identified Cx Nom (U) No Growth 2 Days PERFORMED BY: [place] [id number] PATHOLOGIST [employer] DEVELOPER DANTE Carreon [facility] Comment on above: Performed By: #### C UU #### [address] IGP,APTIMA HPV,AGE GDLNon AGE GDLN ACOG TESTING Note . [facility] Comment on above: TESTS RESULT FLAG UN ITS REF RANGE LAB Clinician Provided Cytology Information Source.............Cervix No. of containers..01 ThinPrep Vial Age Algo ACOG Annel... 30-65 FLAG LEGEND: L-Low Normal,H-High Normal,LL-Alert Low,HH-Alert High <-Panic Low,>-Panic High,A-Abnormal,AA-Critical Abnormal Performed at: 01 =[address] [address] Kathryn Maldonado MD, HPV APTIMA Negative Negative [facility] Comment on above: This nucleic acid am plification test detects fourteen high- risk HPV types (16,18,31,33,35,39,45,51,52,56,58,59,66,68) without differentiation. Performed at: =[address] [id number] Net Mender: Kathryn Maldonado MD, Phone: [phone] Performed at: [address] [id number] Net Mender: Kathryn Maldonado MD, Phone: [phone] IGP, APTIMA HPV, RFX 16/18,45 Note . [facility] Comment on above: TESTS RESULT FLAG UN ITS REF RANGE LAB DIAGNOSIS: 02 NEGATIVE FOR INTRAEPITHELIAL LESION OR MALIGNANCY. Specimen adequacy: 02 Satisfactory for evaluation. Endocervical and/or squamous metaplastic cells (endocervical component) are present. Performed by: Elidia Shankar, News Broadcaster . 02 Note: Note 02 The Pap [...] <-Panic Low,>-Panic High,A-Abnormal,AA-Critical Abnormal Performed at: [address] [address] Kathryn Maldonado MD, BRUSH-SPATULA CERVIX [facility] RECURRENT VAGINITIS (HTRX)on 05-05-2024 ATOPOBIUM VAGINAE 0 [facility] ATOPOBIUM VAGINAE Not detected [facility] BVAB 2,3 (BACTERIAL VAGINOSIS ASSOCIATED BACTERIA 2, 3); MOBILUNCUS SPP 0 [facility] BVAB 2,3 (BACTERIAL VAGINOSIS ASSOCIATED BACTERIA 2, 3); MOBILUNCUS SPP Not detected [facility] JED ALBICANS, PARAPSILOSIS, TROPICALIS 0 [facility] JED ALBICANS, PARAPSILOSIS, TROPICALIS Not detected [facility] JED GLABRATA 0 [facility] JED GLABRATA Not detected [facility] JED KRUSEI 0 [facility] JED KRUSEI Not detected [facility] CHLAMYDIA TRACHOMATIS 0 [facility] CHLAMYDIA TRACHOMATIS Not detected [facility] GARDNERELLA VAGINALIS 0 [facility] GARDNERELLA VAGINALIS Not detected [facility] MEGASPHAERA (TYPES 1, 2) 0 [facility] MEGASPHAERA (TYPES 1, 2) Not detected [facility] MYCOPLASMA GENITALIUM [address] [facility] MYCOPLASMA GENITALIUM Not detected [facility] NEISSERIA GONORRHOEAE 0 [facility] NEISSERIA GONORRHOEAE Not detected [facility] TRICHOMONAS VAGINALIS 0 [facility] TRICHOMONAS VAGINALIS Not detected [facility] Urinalysis macro (dipstick) panel (U)on 05-03-2024 Bilirubin, UA Negative Negative - 4(70) +++ mg/dL [facility] Blood, UA Negative Negative - 50 Ulises/mcL [facility] Clarity, UA Clear [facility] Color, UA Yellow [facility] Glucose, UA Negative Negative - 1999(110) ++++ mg/dL [facility] Interpretation and review of laboratory results Normal [facility] Ketones, UA Negative Negative - 160(16) ++++ mg/dL [facility] Leukocytes, UA Negative Negative - 500+++ Clair/mcL [facility] Nitrite, UA Negative Negative - Positive [facility] pH, UA 0.5 5 - 9 [facility] Protein, UA Negative Negative - 1999(20) ++++ mg/dL [facility] Spec Grav, UA 1.025 1 - 1.03 [facility] Urobilinogen, UA 1.0 0.2 - 12 mg/dL [facility] Human papilloma virus 16+18+ 31+33+35+39+45+51+52+56+58+59+66+68 DNA [Presence] in Denis 05-02-2024 HPV 16+18+31+33+35+39+4 5+51+52+56+58+59+66 +68 DNA Probe+sig amp Ql (Cvx) Human papilloma virus 16+18+31+33+35+39+45+51+52+5 6+58+59+66+68 DNA [Presence] in Cer Negative [facility] Comment on above: This nucleic acid am plification test detects fourteen high- risk HPV types (16,18,31,33,35,39,45,51,52,56,58,59,66,68)without differentiation.Performed at: = - [address] [id number] Director: Kathryn Maldonado MD, Phone: [phone] at: [facility] [address] [id number] Director: Kathryn Maldonado MD, Phone: [phone] No Panel Informationon 11-11 -2024 HPV High Risk Other Comment Note . [facility] Comment on above: TESTS RESULT FLAG UN ITS REF RANGE LAB JESE GNOSIS: 02 NEGATIVE FOR INTRAEPITHELIAL LESION OR MALIGNANCY.Specimen adequacy: 02 Satisfactory for evaluation. Endocervical and/or squamous metaplastic cells (endocervical component) are present.Performed by: 02 Thao Shankar, News Broadcaster. 02Note: Note 02 The Pap smear is [...] <-Panic Low,>-Panic High,A-Abnormal,AA-Critical Abnormal --Performed at:[address] [place] [address] Kathryn Maldonado MD, Reference Lab Test Patient Age Note . [facility] Comment on above: TESTS RESULT FLAG UN ITS REF RANGE LAB Clinician Provided Cytology Information Source.............Cervix No. of containers..01 ThinPrep VialAge Richie Up... FLAG LEGEND: L-Low Normal,H-High Normal,LL-Alert Low,HH-Alert High <-Panic Low,>-Panic High,A-Abnormal,AA-Critical Abnormal --Performed at:01 =[address] [address] Kathryn Maldonado MD, AFP, SERUM, OPEN SPINA BIFID Aon 05-01-2024 AFP MOM 1.18 . [facility] AFP VALUE 61.8 ng/mL . [facility] COMMENT: Comment . [facility] Comment on above: Cydney Rodriguez , Ph.D., [facility] Director References: Available Upon Request. Multiples Of Median Cutoffs For AFP Elevations Chiang 2.5 Black 2.8 IDD 2.0 Twins 4.5 Abbreviation Definitions IDD - Insulin Dep Diabetes OSBR - Open Spina Bifida Risk For further inquiries contact [facility] at [phone]. This test was developed and its performance characteristics determined by [employer]. It has not been cleared or approved by the Food and Drug Administration. Performed at: - [facility] [address], [place] [id number] Net Mender: Marissa Kovacs [facility], Phone: [phone] GEST. AGE ON COLLECTION DATE 19.0 . weeks [facility] GESTAT. AGE BASED ON LMP . [facility] Comment on above: Recalculations are n ot recommended when gestational dating by LMP and ultrasound are within 10 days. INSULIN DEP DIABETES No . [facility] INTERPRETATION Comment . [facility] Comment on above: Interpretation: Scre en [...] Customer Services to discuss available options. The [employer] recommends amniocentesis be offered to women age 35 and older. [age] [facility] MULTIPLE GESTATION No . [facility] OSBR RISK 1 IN 16 . [facility] RACE . [facility] RESULTS Report . [facility] TEST RESULTS: Negative . [facility] WEIGHT 135 . lbs [facility] N N LMP [id number] 3 15 N 1 Y 135 N N N N N White/ [facility] Alpha-fetoprotein (AFP) paige urement (hncxrswc-ca-mywdzg)on 04-29-2024 AFP [MoM] Alpha-fetoprotein (A FP) measurement (olkrybls-rz-hcpggp) . [facility] Assess gestational ageon Gestational age Assess gestational age . [facility] Estimation of maternal age-s pecific risk of Down syndrome birthon 04-29-2024 Age [Time] Estimation of matern al age-specific risk of Down syndrome . [facility] Insulin dependent diabetes m ellitus detectionon 04-29-2024 Insulin dependent diabetes mellitus Ql Insulin dependent diabetes mellitus detection . [facility] Interpretation of serum or p lasma second trimester quad maternal screen (narrative reon 04-29-2024 Second trimester quad maternal screen Darshan [Interp] Interpretation of serum or plasma second trimester quad maternal screen (narrative re . [facility] Comment on above: Interpretation: Scre en NegativeThis [...] Comment . [facility] Comment on above: Cydney Rodriguez , Ph.D., DABCCDirectorReferences: Available Upon Request.Multiples Of Median Cutoffs For AFP ElevationsSingleton 2.5 Black 2.8IDD 2.0 Twins 4.5 Abbreviation DefinitionsIDD - Insulin Dep DiabetesOSBR - Open Spina Bifida RiskFor further inquiries contact [employer] [facility] at [phone].This test was developed and its performance characteristicsdetermined by [employer]. It has not been cleared or approvedby the Food and Drug Administration.Performed at: [facility] [employer] [id number], [place] [id number] Director: Marissa Kovacs [facility], Phone: [phone] Alpha Fetoprotein Results Received Report . [facility] Gestational Age Calculation Method LMP . [facility] Comment on above: Recalculations are n ot recommended when gestational datingby LMP and ultrasound are within 10 days. Maternal Quad Test Risk 6916 . [facility] Maternal Race . [facility] Multiple No . [facility] Serum or plasma xoowg-5-xnyh protein measurement (mass/volume)on 04-29-2024 AFP [Mass/Vol] Serum or plasma vvbhu-4-mniswwkhhre measurement (mass/volume) . [facility] BOX TEST SENT OUTon BOX TEST SENT OUT Y [facility] ALL CBC WITH AUTO DIFFon BASOPHILS ABSOLUTE AUTO 0.0 [facility] Basophils/100 WBC (Bld) 0.5 % 0.2 - 2.0 % [facility] Eosinophils/100 WBC (Bld) 0.9 % 0.9 - 7.0 % [facility] Erythrocyte distribution width (RBC) [Ratio] 11.9 % 11.0 - 15.0 % [facility] Hematocrit (Bld) [Volume fraction] 37.3 % 36.0 - 48.0 % [facility] Hemoglobin (Bld) [Mass/Vol] 12.7 g/dL 12.0 - 16.0 g/dL [facility] IMMATURE GRANULOCYTES ABS AUTO 0.02 [facility] Immature granulocytes/100 WBC (Bld) 0.3 % 0.0 - 0.5 % [facility] Interpretation and review of laboratory results Abnormal [facility] LYMPHOCYTES ABSOLUTE AUTO 1.8 [facility] Lymphocytes/100 WBC (Bld) 27.4 % 20.5 - 60.0 % [facility] MCH (RBC) [Entitic mass] 32.2 pg 26.7 - 34.0 pg [facility] MCHC (RBC) [Mass/Vol] 34.0 g/dL 29.9 - 35.2 g/dL [facility] MCV (RBC) [Entitic vol] 94.4 fL 81.0 - 99.0 fL [facility] MONOCYTES ABSOLUTE AUTO 0.3 [facility] Monocytes/100 WBC (Bld) 5.1 % 1.7 - 12.0 % [facility] NEUTROPHILS ABSOLUTE AUTO 4.4 [facility] Neutrophils/100 WBC (Bld) 65.8 % 43.0 - 75.0 % [facility] Platelet mean volume (Bld) [Entitic vol] 9.4 fL Low 9.5 - 13.5 fL [facility] TBH EO # 0.1 [facility] PLT 215 [facility] RBC 3.95 Low [facility] WBC 6.6 [facility] HCG ( test) Ql (U)o n 02-12-2024 Interpretation and review of laboratory results Abnormal [facility] Preg Test, Ur Positive [facility] Urinalysis macro (dipstick) panel (U)on 02-12-2024 Bilirubin, UA Negative Negative - 4(70) +++ mg/dL [facility] Blood, UA Negative Negative - 50 Ulises/mcL [facility] Clarity, UA Clear [facility] Color, UA Yellow [facility] Glucose, UA Negative Negative - 2000(110) ++++ mg/dL [facility] Interpretation and review of laboratory results Normal [facility] Ketones, UA Negative Negative - 160(16) ++++ mg/dL [facility] Leukocytes, UA Negative Negative - 500+++ Clair/mcL [facility] Nitrite, UA Negative Negative - Positive [facility] pH, UA 6.5 5 - 9 [facility] Protein, UA Negative Negative - 1999(20) ++++ mg/dL [facility] Spec Grav, UA 1.015 1 - 1.03 [facility] Urobilinogen, UA 1.0 0.2 - 12 mg/dL [facility] No Panel Informationon 11-29 Human Chorionic Gonadotropin, Quant 2 mIU/mL [facility] Comment on above: 5-50 0.2-1 KAMM10-12 0 1-2 WHLKS403-9,000 2-3 YZPYC972-30,000 3-4 WEEKS1,000-50,000 4-5 WEEKS10,000-100,000 5-6 WEEKS15,000-200,000 6-8 WEEKS10,000-100,000 2-3 MONTHS No Panel Informationon 11-22 Human Chorionic Gonadotropin, Quant 3 mIU/mL [facility] Comment on above: 5-50 0.2-1 WLBU48-53 0 1-2 FXACX085-1,000 2-3 JVDXP694-86,000 3-4 WEEKS1,000-50,000 4-5 WEEKS10,000-100,000 5-6 WEEKS15,000-200,000 6-8 WEEKS10,000-100,000 2-3 MONTHS No Panel Informationon 11-16 Human Chorionic Gonadotropin, Quant 6 mIU/mL [facility] Comment on above: 5-50 0.2-1 TQZC31-03 0 1-2 CVYGW307-3,000 2-3 FHHNT079-25,000 3-4 WEEKS1,000-50,000 4-5 WEEKS10,000-100,000 5-6 WEEKS15,000-200,000 6-8 WEEKS10,000-100,000 2-3 MONTHS No Panel Informationon 11-08 Human Chorionic Gonadotropin, Quant 27 mIU/mL [facility] Comment on above: 5-50 0.2-1 KQKP08-81 0 1-2 ZQLOB639-5,000 2-3 SAZLK233-84,000 3-4 WEEKS1,000-50,000 4-5 WEEKS10,000-100,000 5-6 WEEKS15,000-200,000 6-8 WEEKS10,000-100,000 2-3 MONTHS Basophils Auto (Bld) [#/Vol] on 10-23-2023 Basophils (Bld) [#/Vol] 0.0 10 3/uL 0.0-0.1 [facility] Basophils/100 WBC Auto (Bld) on 10-23-2023 Basophils/100 WBC (Bld) 0.8 % 0.2-2.0 [facility] Eosinophils/100 WBC Auto (Bl d)on 10-23-2023 Eosinophils/100 WBC (Bld) 1.4 % 0.9-7.0 [facility] Erythrocyte distribution wid th Auto (RBC) [Ratio]on 10-23-2023 Erythrocyte distribution width (RBC) [Ratio] 11.9 % 11.0-15.0 [facility] Hematocrit Auto (Bld) [Volum e fraction]on 10-23-2023 Hematocrit (Bld) [Volume fraction] 36.0 % 36.0-48.0 [facility] Hemoglobin [Mass/volume] in Bloodon 10-23-2023 Hemoglobin (Bld) [Mass/Vol] 11.8 g/dL 12.0-16.0 [facility] Krzysztof 10-23-2023 L Specimen: [id number] R eceived: 10/26/23 Status: MAIA Newell Num: [id number] Spec Type: Surgical Subm Dr: Scooby Vega Tissues: A Products of Conception - Spontaneous or Missed (POC) Procedures: HE/3, Gross/Micro L4 Age/ Patient Sex Location Account Attending Physician Raphael Elizabeth 37/F [facility] [id number] Scooby Vega SPEC NUM: [id number] RECD: 10/26/23 STATUS: [facility] NUM: [id number] JANIE: 10/23/[address]: Scooby Vega ENTERED: 10/26/23 [facility] DR: Héctor,Lab SPEC TYPE: Surgical DEPT: POOJA [...] cm possible area of villous tissue identified. Inventory Checker sections to include the possible villous tissue are submitted in A1?A3. Clinical history: Missed CPT Codes 39490 -------- -------- Specimen: [id number] Received: 10/26/23 Status: MAIA Newell Num: [id number] Spec Type: Surgical Subm Dr: Scooby Vega Tissues: A Products of Conception - Spontaneous or Missed (POC) Procedures: HE/3, Gross/Micro L4 -------- Patient: Raphael Elizabeth [id number] (Continued) -------- Signed (signature on file) Dante Palacios MD 10/27/23 1511 Normal [facility] Laboratory - Hematology and Cell countson 10-23-2023 Immature granulocytes/100 WBC (Bld) 0.2 % 0.0-0.5 [facility] Leukocytes [#/volume] correc leroy for nucleated erythrocytes in Blood by Automated counon 10-23-2023 WBC corrected for nucl RBC Auto (Bld) [#/Vol] 5.1 10 3/uL 4.0-11.0 [facility] Lymphocytes Auto (Bld) [#/Vo l]on 10-23-2023 Lymphocytes (Bld) [#/Vol] 1.7 10 3/uL 1.2-3.8 [facility] Lymphocytes/100 WBC Auto (Bl d)on 10-23-2023 Lymphocytes/100 WBC (Bld) 32.8 % 20.5-60.0 [facility] MCH Auto (RBC) [Entitic mass ]on 10-23-2023 MCH (RBC) [Entitic mass] 31.1 pg 26.7-34.0 [facility] MCHC Auto (RBC) [Mass/Vol]on 10-23-2023 MCHC (RBC) [Mass/Vol] 32.8 g/dL 29.9-35.2 [facility] MCV Auto (RBC) [Entitic vol] on 10-23-2023 MCV (RBC) [Entitic vol] 95.0 fL 81.0-99.0 [facility] Monocytes Auto (Bld) [#/Vol] on 10-23-2023 Monocytes (Bld) [#/Vol] 0.3 10 3/uL 0.3-0.8 [facility] Monocytes/100 WBC Auto (Bld) on 10-23-2023 Monocytes/100 WBC (Bld) 5.5 % 1.7-12.0 [facility] Neutrophils Auto (Bld) [#/Vo l]on 10-23-2023 Neutrophils (Bld) [#/Vol] 3.0 10 3/uL 1.4-6.5 [facility] Neutrophils/100 WBC Auto (Bl d)on 10-23-2023 Neutrophils/100 WBC (Bld) 59.3 % 43.0-75.0 [facility] No Panel Informationon 10-22 Eosinophils # (Auto) 0.1 10 3/uL 0.0-0.7 [facility] Immature Granulocyte # (Auto) 0.01 10 3/uL 0.00-0.03 [facility] Platelet mean volume Auto (B ld) [Entitic vol]on 10-23-2023 Platelet mean volume (Bld) [Entitic vol] 9.0 fL 9.5-13.5 [facility] Platelets Auto (Bld) [#/Vol] on 10-23-2023 Platelets (Bld) [#/Vol] 182 10 3/uL 150-450 [facility] RBC Auto (Bld) [#/Vol]on RBC (Bld) [#/Vol] 3.79 10 6/uL 4.20-5.40 [facility] No Panel Informationon 10-11 Human Chorionic Gonadotropin, Quant 62790 mIU/mL [facility] Comment on above: 5-50 0.2-1 JPOM86-43 0 1-2 QPLMG279-4,000 2-3 CYQSF409-50,000 3-4 WEEKS1,000-50,000 4-5 WEEKS10,000-100,000 5-6 WEEKS15,000-200,000 6-8 WEEKS10,000-100,000 2-3 MONTHS No Panel Informationon 10-06 Human Chorionic Gonadotropin, Quant 31936 mIU/mL [facility] Comment on above: 5-50 0.2-1 XZRL39-29 0 1-2 FBPYG527-5,000 2-3 TKCBP501-10,000 3-4 WEEKS1,000-50,000 4-5 WEEKS10,000-100,000 5-6 WEEKS15,000-200,000 6-8 WEEKS10,000-100,000 2-3 MONTHS No Panel Informationon 10-04 Human Chorionic Gonadotropin, Quant 33798 mIU/mL [facility] Comment on above: 5-50 0.2-1 UNML29-21 0 1-2 ILKUK362-5,000 2-3 LLLLQ247-92,000 3-4 WEEKS1,000-50,000 4-5 WEEKS10,000-100,000 5-6 WEEKS15,000-200,000 6-8 WEEKS10,000-100,000 2-3 MONTHS PAP ACOG PANEL 2: 30 to 65on 03-11-2022 . . Normal [facility] Comment on above: Result Comment: Perf ormed at: WB Performed By: #### [id number] #### [facility] [address] [place] [address] Dr. Danni Jacobs Age Gdln ACOG Testing 30-65 Normal [facility] Comment on above: Performed By: #### [id number] #### [facility] [address] [place] [address] Dr. Danni Jacobs DIAGNOSIS: Comment Normal [facility] Comment on above: Result Comment: NEGA TIVE FOR INTRAEPITHELIAL LESION OR MALIGNANCY. THIS SPECIMEN WAS RESCREENED PART OF OUR DRYWALL TAPER PROGRAM. Performed at: WB Performed By: #### [id number] #### [facility] [address] [place] [address] Dr. Danni Jacobs HPV Aptima Negative Normal Negative [facility] Comment on above: Result Comment: This nucleic acid amplification test detects fourteen high-risk HPV types (16,18,31,33,35,39,45,51,52,56,58,59,66,68) without differentiation. Performed at: =G Performed By: #### [id number] #### [facility] [address] [place] [address] Dr. Danni Jacobs Methodology: Comment Normal [facility] Comment on above: Result Comment: This liquid based ThinPrep(R) pap test was screened with the use of an image guided system. Performed at: WB Performed By: #### [id number] #### [facility] [address] [place] [address] Dr. Danni Jacobs Note: Comment Normal [facility] Comment on above: Result Comment: The Pap smear is a screening test designed to aid in the detection of premalignant and malignant conditions of the uterine cervix. It is not a diagnostic procedure and should not be used as the sole means of detecting cervical cancer. Both false-positive and false-negative reports do occur. . Performed at: WB Performed By: #### [id number] #### [facility] [address] [address] [address] Danni Jacobs Performed by: Comment Normal [facility] Comment on above: Result Comment: Rocky Hull, News Broadcaster (ASCP) Performed at: WB Performed By: #### [id number] #### [facility] [address] [place] [address] Dr. Danni Jacobs QC reviewed by: Comment Normal [facility] Comment on above: Result Comment: Betzaida Ge, Supervisory News Broadcaster (ASCP) Performed at: WB Performed By: #### [id number] #### [facility] [address] [place] [address] Dr. Danni Jacobs Specimen adequacy: Comment Normal [facility] Comment on above: Result Comment: Sati sfactory for evaluation. Endocervical and/or squamous metaplastic cells (endocervical component) are present. Performed at: WB Performed By: #### [id number] #### [facility] [address] [place] [address] Dr. Danni Jacobs GLUCOSE BLOODon 04-22-2021 Glucose [Mass/Vol] 99 mg/dL Normal 74-106 [facility] Comment on above: Performed By: #### G YOSEPH, LIPID #### [facility] [address] [place] [address] Dr. Danni Jacobs LIPID PROFILEon 04-22-2021 CHOL-HDL RATIO NORM SEE BELOW Normal [facility] Comment on above: Result Comment: 3.3 - 4.4 LOW RISK 4.4 - 7.1 AVERAGE RISK 7.1 - 11.0 MODERATE RISK >11.0 HIGH RISK Performed By: #### G YOSEPH, LIPID #### [facility] [address] [address] [address] Danni Jacobs Cholesterol [Mass/Vol] 157 mg/dL Normal <=200 [facility] Comment on above: Performed By: #### G YOSEPH, LIPID #### [facility] [address] [address] [address] Danni Jacobs Cholesterol in HDL [Mass/Vol] 74 mg/dL Normal [facility] Comment on above: Performed By: #### G YOSEPH, LIPID #### [facility] [address] [address] [address] Danni Jacobs Cholesterol in LDL [Mass/Vol] 71.2 mg/dL Normal [facility] Comment on above: Performed By: #### G YOSEPH, LIPID #### [facility] [address] [address] [address] Danni Jacobs Cholesterol.total/C holesterol in HDL [Mass ratio] 2.1 {ratio} Normal [facility] Comment on above: Performed By: #### G YOSEPH, LIPID #### [facility] [address] [address] [address] Danni Jacobs HDL NORMAL > or = 60 mg/dl - LO W CARDIOVASCULAR RISK <40 mg/dl - HIGH CARDIOVASCULAR RISK Normal [facility] Comment on above: Performed By: #### G YOSEPH, LIPID #### [facility] [address] [address] [address] Danni Jacobs LDL CALC NORMAL SEE BELOW Normal [facility] Comment on above: Result Comment: <100 mg/dl OPTIMAL 100 - 129 mg/dl NEAR OR ABOVE OPTIMAL 130 - 159 mg/dl BORDERLINE HIGH 160 - 189 mg/dl HIGH >190 mg/dl VERY HIGH Performed By: #### G YOSEPH, LIPID #### [facility] [address] [address] [address] Danni Jacobs Triglyceride [Mass/Vol] 59 mg/dL Normal <=150 [facility] Comment on above: Performed By: #### G YOSEPH, LIPID #### [facility] [address] [address] [address] Danni Jacobs VLDL CALC 11.8 mg/dL Normal [facility] Comment on above: Performed By: #### G YOSEPH, LIPID #### [facility] [address] [address] [address] Danni Jacobs Vital Signs Date Time Vital Sign Value Performing Clinician Philippe mera 09-20-2024 14:47-0400 Body mass index (BMI) [Ratio] 24.34 kg/m2 Scooby Gary DO Work Phone: [facility] 09-20-2024 14:47-0400 Body weight 70.49 kg Scooby Gary DO Work Phone: [facility] 09-20-2024 14:47-0400 Diastolic blood pressure 80 mm[Hg] Scooby Gary DO Work Phone: [facility] 09-20-2024 14:47-0400 Systolic blood pressure 110 mm[Hg] Scooby Gary DO Work Phone: [facility] 08-24-2024 13:51-0500 Body mass index (BMI) [Ratio] 24.18 kg/m2 Scooby Gary DO Work Phone: [facility] 08-24-2024 13:51-0500 Body weight 70.03 kg Scooby Gary DO Work Phone: [facility] 08-24-2024 13:51-0500 Diastolic blood pressure 68 mm[Hg] Scooby Gary DO Work Phone: [facility] 08-24-2024 13:51-0500 Systolic blood pressure 112 mm[Hg] Scooby Gray DO Work Phone: [facility] 08-18-2024 09:28-0500 Body mass index (BMI) [Ratio] 23.62 kg/m2 Scooby Gary DO Work Phone: [facility] 08-18-2024 09:28-0500 Body weight 68.4 kg Scooby Gary DO Work Phone: [facility] 08-18-2024 09:28-0500 Diastolic blood pressure 72 mm[Hg] Scooby Gary DO Work Phone: [facility] 08-18-2024 09:28-0500 Systolic blood pressure 110 mm[Hg] Scooby Gary DO Work Phone: [facility] 08-01-2024 13:55-0500 Body mass index (BMI) [Ratio] 22.87 kg/m2 Scooby Gary DO Work Phone: [facility] 08-01-2024 13:55-0500 Body weight 66.22 kg Scooby Gary DO Work Phone: [facility] 08-01-2024 13:55-0500 Diastolic blood pressure 74 mm[Hg] Scooby Gary DO Work Phone: [facility] 08-01-2024 13:55-0500 Systolic blood pressure 116 mm[Hg] Scooby Gary DO Work Phone: [facility] 07-18-2024 15:05-0500 Body mass index (BMI) [Ratio] 22.84 kg/m2 Scooby Gary DO Work Phone: [facility] 07-18-2024 15:05-0500 Body weight 66.13 kg Scooby Gary DO Work Phone: [facility] 07-18-2024 15:05-0500 Diastolic blood pressure 70 mm[Hg] Scooby Gary DO Work Phone: [facility] 07-18-2024 15:05-0500 Systolic blood pressure 118 mm[Hg] Scooby Gary DO Work Phone: [facility] 06-30-2024 12:01-0500 Body mass index (BMI) [Ratio] 22.26 kg/m2 Scooby Gary DO Work Phone: [facility] 06-30-2024 12:01-0500 Body weight 64.47 kg Scooby Gary DO Work Phone: [facility] 06-30-2024 12:01-0500 Diastolic blood pressure 70 mm[Hg] Scooby Gary DO Work Phone: [facility] 06-30-2024 12:01-0500 Systolic blood pressure 110 mm[Hg] Scooby Gary DO Work Phone: [facility] 06-02-2024 10:45-0500 Body mass index (BMI) [Ratio] 21.9 kg/m2 Scooby Gary DO Work Phone: [facility] 06-02-2024 10:45-0500 Body weight 63.41 kg Scooby Gary DO Work Phone: [facility] 06-02-2024 10:45-0500 Diastolic blood pressure 72 mm[Hg] Scooby Gary DO Work Phone: [facility] 06-02-2024 10:45-0500 Systolic blood pressure 116 mm[Hg] Scooby Gary DO Work Phone: [facility] 05-02-2024 16:20-0500 Body mass index (BMI) [Ratio] 21.61 kg/m2 Emely COBB Work Phone: [facility] 05-02-2024 16:20-0500 Body weight 62.6 kg Emely COBB Work Phone: [facility] 05-02-2024 16:20-0500 Diastolic blood pressure 68 mm[Hg] Emely COBB Work Phone: [facility] 05-02-2024 16:20-0500 Systolic blood pressure 120 mm[Hg] Emely COBB Work Phone: [facility] 04-29-2024 11:40-0500 Body weight Jen Granados MD Work Phone: [facility] 04-04-2024 14:55-0400 Body mass index (BMI) [Ratio] 21.27 kg/m2 Scooby Gary DO Work Phone: [facility] 04-04-2024 14:55-0400 Body weight 61.6 kg Scooby Gary DO Work Phone: [facility] 04-04-2024 14:55-0400 Diastolic blood pressure 70 mm[Hg] Scooby Gary DO Work Phone: [facility] 04-04-2024 14:55-0400 Systolic blood pressure 116 mm[Hg] Scooby Gary DO Work Phone: [facility] 03-07-2024 10:47-0400 Body mass index (BMI) [Ratio] 20.07 kg/m2 Scooby Gary DO Work Phone: [facility] 03-07-2024 10:47-0400 Body weight 58.12 kg Scooby Gary DO Work Phone: [facility] 03-07-2024 10:47-0400 Diastolic blood pressure 68 mm[Hg] Scooby Gary DO Work Phone: [facility] 03-07-2024 10:47-0400 Systolic blood pressure 114 mm[Hg] Scooby Gary DO Work Phone: [facility] 12-01-2023 16:10-0400 Body height 170.18 cm Scooby Gary Work Phone: [facility] 12-01-2023 16:10-0400 Body mass index (BMI) [Ratio] 19.5 kg/m2 Scooby Gary Work Phone: [facility] 12-01-2023 16:10-0400 Body weight 56.69 kg Scooby Gary Work Phone: [facility] 12-01-2023 16:10-0400 Diastolic blood pressure 78 mm[Hg] Scooby Gary Work Phone: [facility] 12-01-2023 16:10-0400 Systolic blood pressure 112 mm[Hg] Scooby Gary Work Phone: [facility] Encounters Encounter Date Encounter Type Care Provider Facility Start: 09-20-2024 End: 09-20-2024 flow sheet Scooby Gary DO Work Phone: [facility] Comment on above: Third trimester preg gali; 39 weeks gestation of Start: 09-20-2024 End: 09-20-2024 Bamboo flowsheet Scooby Gary DO Work Phone: [facility] Start: 09-20-2024 End: 09-20-2024 Bamboo flowsheet Scooby Gary DO Work Phone: [facility] Start: 09-16-2024 End: 09-16-2024 Clinisync Result Encounter Scooby Gary DO Work Phone: [facility] Unsolicited Start: 09-16-2024 End: 09-16-2024 Clinisync Result Encounter Scooby Gary DO Work Phone: [facility] Unsolicited Start: 09-12-2024 End: 09-12-2024 ambulatory SCOOBY GARY Not Available Start: 09-09-2024 End: 09-19-2024 Clinisync Result Encounter Scooby Gary DO Work Phone: [facility] Unsolicited Start: 09-09-2024 End: 09-19-2024 Clinisync Result Encounter Scooby Gary DO Work Phone: [facility] Unsolicited Start: 09-05-2024 End: 09-05-2024 ambulatory SCOOBY GARY [...] 06-25-2024 ambulatory Jen Granados MD Work Phone: [facility] Work Phone: Start: 06-25-2024 End: 06-25-2024 Departed Referred Jen Granados MD Work Phone: [facility] Start: 06-25-2024 Non-patient / Non-visit Jen Granados MD Work Phone: [facility] Work Phone: Start: 06-02-2024 End: 06-02-2024 Bamboo flowsheet Scooby Gary DO Work Phone: [facility] Start: 06-02-2024 End: 06-02-2024 Bamboo flowsheet Scooby Gary DO Work Phone: [facility] Start: 06-02-2024 End: 06-02-2024 ambulatory SCOOBY GARY Not Available Start: 06-02-2024 End: 06-02-2024 flow sheet Scooby Gary DO Work Phone: [facility] Comment on above: Second trimester pre gnancy; 23 weeks gestation of ; with normal glucose tolerance test (GTT); Diabetes mellitus screening; Gestational diabetes mellitus (GDM), antepartum, gestational diabetes method of control unspecified; Elevated glucose tolerance test Start: 05-02-2024 Non-patient / Non-visit Jen Granados MD Work Phone: [facility] Work Phone: Start: 05-02-2024 End: 05-02-2024 ambulatory EMELY HUNTER Not Available Start: 05-02-2024 End: 05-02-2024 Patient encounter procedure Emely Hunter PA Work Phone: [facility] Work Phone: Start: 05-02-2024 [...] / Non-visit Jen Granados MD Work Phone: [facility] Work Phone: Start: 04-04-2024 End: 04-04-2024 flow sheet Scooby Gary DO Work Phone: [facility] Comment on above: Second trimester pre gnancy; Screening, , for anatomic survey; with 15 completed weeks gestation Start: 04-04-2024 End: 04-04-2024 ambulatory SCOOBY GARY Not Available Start: 04-04-2024 End: 04-04-2024 Bamboo flowsheet Scooby Gary DO Work Phone: [facility] Start: 04-04-2024 End: 04-04-2024 Bamboo flowsheet Scooby Vega DO Work Phone: [facility] Start: 04-04-2024 End: 04-04-2024 ambulatory ASHLEY Jose [facility] Start: 04-01-2024 End: 04-01-2024 Bamboo [...] CI PT Start: 02-08-2024 End: 02-08-2024 ambulatory [facility] Start: 02-08-2024 ambulatory [facility] Start: 12-01-2023 End: 12-01-2023 ambulatory Scooby Gary Work Phone: [facility] Work Phone: Start: 12-01-2023 End: 12-01-2023 Patient encounter procedure Scooby Gary Work Phone: [facility] Work Phone: Start: 11-30-2023 Non-patient / Non-visit Scooby Gary Work Phone: [facility] Work Phone: Start: 11-23-2023 Non-patient / Non-visit Scooby Gary Work Phone: [facility] Work Phone: Start: 11-17-2023 Non-patient / Non-visit Scooby Gary Work Phone: [facility] Work Phone: Start: 11-09-2023 Non-patient / Non-visit Scooby Gayr Work Phone: [facility] Work Phone: Start: 11-09-2023 End: 11-09-2023 ambulatory EMELY HUNTER Not Available Start: 10-23-2023 End: 10-23-2023 ambulatory Scooby Gary [facility] Work Phone: Start: 10-23-2023 End: 10-23-2023 Departed Referred Scoobyvidal Fragosoo Work Phone: [facility] Start: 10-23-2023 Non-patient / Non-visit Scooby Gary Work Phone: [facility] Work Phone: Start: 10-12-2023 Non-patient / Non-visit Scooby Gary Work Phone: [facility] Work Phone: Start: 10-07-2023 Non-patient / Non-visit Scooby Gary Work Phone: [facility] Work Phone: Start: 10-05-2023 Non-patient / Non-visit Scooby Gary Work Phone: [facility] Work Phone: Start: 03-03-2022 End: 03-03-[address] SCOOBY VEGA Facility: Start: 04-28-2021 Encounter for genera l adult medical examination without abnormal findings DR DALTON LOGAN [facility] Start: 04-22-2021 End: 04-23-[address] DALTON LOGAN Facility:[facility] Start: 04-22-2021 End: 04-23-2021 Encounter for general adult medical examination without abnormal findings DR DALTON LOGAN Facility:[facility] Procedures Date Procedure Procedure Detail Performing Clinician Start: 09-20-2024 Urnls dip stick/tabl et rgnt non-auto w/o micrscp Scooby Gary DO Work Phone: Start: 09-16-2024 US OB BPP W NON-STRESS Scooby Gary DO Work Phone: Start: 09-09-2024 US OB BPP W NON-STRESS Scooby Gary DO Work Phone: Start: 08-24-2024 Urnls dip stick/tabl et rgnt [...] Follow-up visit Follow-up ASHLEY SHIN Start: 02-26-2024 [facility] SENT OUT C orey Gary DO Work Phone: Start: 02-16-2024 ALL CBC WITH AUTO DIFF Scooby Gary DO Work Phone: Start: 02-12-2024 End: 02-12-2024 Urnls dip stick/tablet rgnt non-auto w/o micrscp Scooby Gary DO Work Phone: Plan of Treatment Date Care Activity Detail Author Start: 09-20-2024 End: 09-20-2024 Patient encounter procedure 09/20/2024 9:40 AM EDT Routine [facility] [address] [place] [address] Scooby Vega, DO [address] [place] [address] [facility] Start: 09-12-2024 End: 09-12-2024 Patient encounter procedure 09/12/2024 9:00 AM EDT Routine [facility] [address] [place] [address] Scooby Vega, DO [address] [place] [address] [facility] Start: 09-05-2024 End: 09-05-2024 Patient encounter procedure 09/05/2024 1:30 PM EDT Routine [facility] [address] [place] [phone] Scooby Vega, DO [address] [place] [address] [facility] Start: 08-24-2024 End: 08-24-2025 CULTURE, GROUP B STREP WITH SUSCEPTIBLITY CULTURE, GROUP B STREP WITH SUSCEPTIBLITY Lab Routine Third trimester Expected: 08/24/2024, Expires: 08/24/2025 [facility] Work Phone: Comment on above: Expected: 08/24/2024 , Expires: 08/24/2025 Start: 08-24-2024 End: 08-24-2024 Patient encounter procedure 08/24/2024 1:20 PM EST Routine [facility] [address] [place] [phone] Scooby Vega, DO [address] [place], [place] [address] [address] [facility] Start: 08-18-2024 End: 08-18-2025 US for US OB follow up transabdominal approach Imaging Routine Multigravida of advanced maternal age in third trimester Expected: 08/18/2024, Expires: 08/18/2025 [facility] Work Phone: Comment on above: Expected: 08/18/2024 , Expires: 08/18/2025 Start: 08-18-2024 End: 08-18-2024 Patient encounter procedure 08/18/2024 9:20 AM EST Routine [facility] [address] [place] [address] Scooby Vega, DO [address] [place] [address] [facility] Start: 08-01-2024 End: 08-01-2024 Patient encounter procedure 08/01/2024 1:20 PM EST Routine [facility] [address] [place] [address] Scooby Vega, DO [address] [place] [address] [facility] Start: 07-18-2024 End: 07-18-2024 Patient encounter procedure 07/18/2024 2:30 PM EST Routine [facility] [address] [place], [place] [address] [address] Scooby Vega, DO [address] [place] [address] [place] [address] [facility] Start: 07-18-2024 End: 07-18-2025 US biophysical profile w non stress test US biophysical profile w non stress test Imaging Routine 30 weeks gestation of Third trimester Expected: 07/18/2024 (Approximate), Expires: 07/18/2025 [facility] Work Phone: Comment on above: Expected: 07/18/2024 (Approximate), Expires: 07/18/2025 Start: 06-30-2024 End: 06-30-2025 US biophysical profile w non stress test US biophysical profile w non stress test Imaging Routine Gestational diabetes mellitus (GDM), antepartum, gestational diabetes method of control unspecified Expected: 06/30/2024 (Approximate), Expires: 06/30/2025 [facility] Comment on above: Expected: 06/30/2024 (Approximate), Expires: 06/30/2025 Start: 06-30-2024 End: 06-30-2025 US for US OB follow up transabdominal approach Imaging Routine Gestational diabetes mellitus (GDM), antepartum, gestational diabetes method of control unspecified Expected: 06/30/2024, Expires: 06/30/2025 [facility] Work Phone: Comment on above: Expected: 06/30/2024 , Expires: 06/30/2025 Start: 06-30-2024 End: 06-30-2024 Patient encounter procedure 06/30/2024 11:50 AM EST Routine [facility] [address] [place] [id number] Scooby Vega, DO [address] [place], [place] [id number] [facility] Start: 06-25-2024 Urine culture [facility] Start: 06-25-2024 Bacteria identified in Urine by Culture Urine Culture [facility] Start: 06-02-2024 End: 06-02-2025 CBC panel - Blood by Automated count CBC Lab Routine Diabetes mellitus screening Expected: 06/02/2024 (Approximate), Expires: 06/02/2025 [facility] Work Phone: Comment on above: Expected: 06/02/2024 (Approximate), Expires: 06/02/2025 Start: 06-02-2024 End: 06-02-2025 Measurement of glucose 1 hour after glucose challenge for glucose tolerance test Glucose tolerance, 1 hour Lab Routine Diabetes mellitus screening Expected: 06/02/2024 (Approximate), Expires: 06/02/2025 [facility] Comment on above: Expected: 06/02/2024 (Approximate), Expires: 06/02/2025 Start: 06-02-2024 End: 06-02-2024 Patient encounter procedure 06/02/2024 10:10 AM EST Routine [facility] [address] [place] [phone] Scooby Vega, DO [address] [place] [address] [facility] Start: 05-02-2024 End: 05-02-2024 Patient encounter procedure 05/02/2024 3:30 PM EST Routine [facility] [address] [place] [phone] Emely Hunter PA [address] [facility] [address] [place] [address] [facility] Start: 05-02-2024 End: 10-30-2024 [...] EST Office Visit [facility] [address] [place] [phone] Scooby Vega DO [address] [facility] [place] [address] [facility] Start: 04-04-2024 End: 04-04-2024 [...] Treatment [facility] [address] [facility] [address] [place] [address] Gretchen Moreno, PT [facility] Start: 03-23-2024 End: 03-23-2024 ambulatory 03/23/2024 1:00 PM EDT Treatment [facility] [address] [facility] [address] [place] [address] Gretchen Moreno, PT [facility] Start: 03-18-2024 End: 03-18-2024 ambulatory 03/18/2024 1:30 PM EDT Treatment [facility] [address] [facility] [address] [place] [address] Gretchen Moreno, PT [facility] Start: 03-11-2024 End: 03-11-2024 ambulatory 03/11/2024 1:30 PM EDT Treatment [facility] [address] [facility] [address] [place] [address] Gretchen Moreno, PT [facility] Start: 03-07-2024 End: 03-07-2024 Patient encounter procedure 03/07/2024 10:10 AM EDT Routine [facility] [address] [place] [phone] Scooby Vega, DO [address] [facility] [place] [address] [facility] Start: 03-03-2024 End: 03-03-2024 ambulatory 03/03/2024 10:30 AM EDT Treatment [facility] [address] [address] [facility] [address] [place] [address] Gretchen Moreno, PT [facility] Start: 02-26-2024 End: 02-26-2024 ambulatory 02/26/2024 1:30 PM EDT Treatment [facility] [address] [facility] [address] [place] [address] Gretchen Moreno, PT Arrived [facility] Comment on above: Arrived Start: 02-25-2024 End: 02-25-2024 ambulatory 02/25/2024 10:30 AM EDT Treatment [facility] [address] [facility] [address] [place] [address] Gretchen Moreno, PT [facility] Start: 02-17-2024 End: 02-17-2024 ambulatory 02/17/2024 12:00 PM EDT Treatment [facility] [address] [facility] [address] [place] [address] Gretchen Moreno, PT [facility] Start: 02-12-2024 End: 02-11-2025 ABO/Rh ABO/Rh Lab Routine Missed menses Expected: 02/12/2024 (Approximate), Expires: 02/11/2025 [facility] Comment on above: Expected: 02/12/2024 (Approximate), Expires: 02/11/2025 Start: 02-12-2024 End: 02-11-2025 Blood type and Indirect antibody screen panel - Blood Type and screen Lab Routine Missed menses Expected: 02/12/2024 (Approximate), Expires: 02/11/2025 [facility] Work Phone: Comment on above: Expected: 02/12/2024 (Approximate), Expires: 02/11/2025 Start: 02-12-2024 End: 02-11-2025 US Pelvis transvaginal US OB transvaginal Imaging Routine Missed menses Expected: 02/12/2024 (Approximate), Expires: 02/11/2025 [facility] Comment on above: Expected: 02/12/2024 (Approximate), Expires: 02/11/2025 Start: 02-12-2024 End: 02-12-2024 ambulatory 02/12/2024 10:30 AM EDT Initial [facility] [address] [place] [address] [facility] Start: 02-12-2024 End: 02-12-2024 Professional / ancillary services management 02/12/2024 10:00 AM EDT Ancillary Procedure [facility] [address] [place] [address] [facility] Start: 02-10-2024 End: 02-10-2024 ambulatory 02/10/2024 5:00 PM EDT Evaluation [facility] [address] [facility] [address] [place] [address] Gretchen Moreno, PT Arrived [facility] Comment on above: Arrived Bacteria identified in Urine by Culture Urine culture Microbiology Routine Missed menses Ordered: 02/12/2024 [facility] Comment on above: Ordered: 02/12/2024 CBC W Auto Different ial panel - Blood CBC and differential Lab Routine Missed menses Ordered: 02/12/2024 [facility] Comment on above: Ordered: 02/12/2024 CHLAMYDIA TRACHOMATI S (GENITO/STI) CHLAMYDIA TRACHOMATIS (GENITO/STI) Lab Routine STD exposure Ordered: 05/02/2024 [facility] Comment on above: Ordered: 05/02/2024 Cytology Cervical or vaginal smear or scraping study Pap Smear Pathology and Cytology Routine Well woman exam with routine gynecological exam Ordered: 05/02/2024 [facility] Comment on above: Ordered: 05/02/2024 Hemoglobin A1c/Hemoglobin.total in Blood Hemoglobin A1c Lab Routine Missed menses Ordered: 02/12/2024 [facility] Comment on above: Ordered: 02/12/2024 Hepatitis B virus surface Ag [Presence] in Serum or Plasma by Immunoassay Hepatitis B surface antigen Lab Routine Missed menses Ordered: 02/12/2024 [facility] Comment on above: Ordered: 02/12/2024 Hepatitis C virus Ab [Presence] in Serum or Plasma by Immunoassay Hepatitis C antibody Lab Routine Missed menses Ordered: 02/12/2024 [facility] Comment on above: Ordered: 02/12/2024 HIV-1/HIV-2 antigen/antibody combination immunoassay HIV-1 and HIV-2 antibodies Lab Routine Missed menses Ordered: 02/12/2024 [facility] Comment on above: Ordered: 02/12/2024 Human papilloma viru s DNA [Presence] in Unspecified specimen by Probe with amplification HPV DNA probe, amplified Microbiology Routine Well woman exam with routine gynecological exam Ordered: 05/02/2024 [facility] Comment on above: Ordered: 05/02/2024 Neisseria gonorrhoea e DNA [Presence] in Unspecified specimen by JUAN ANTONIO with probe detection Neisseria gonorrhea DNA probe, direct Lab Routine STD exposure Ordered: 05/02/2024 [facility] Comment on above: Ordered: 05/02/2024 Reagin Ab [Presence] in Serum by RPR RPR Lab Routine Missed menses Ordered: 02/12/2024 [facility] Comment on above: Ordered: 02/12/2024 Rubella antibody, IgG Rubella an tibody, IgG Lab Routine Missed menses Ordered: 02/12/2024 [facility] Comment on above: Ordered: 02/12/2024 SURESWAB(R) ADVANCED VAGINITIS PLUS, TMA SURESWAB(R) ADVANCED VAGINITIS PLUS, TMA Pathology and Cytology Routine Vaginal discharge Ordered: 05/02/2024 [facility] Work Phone: Comment on above: Ordered: 05/02/2024 XR Hip - left 2 Views [facility] Payers Date Payer Category Payer Private Health Insurance ESTELA Decker [id number] 2022 Unknown NILAM JORGENSEN [id number] 2022-Present [phone] [address] [place] [address] [id number] 1987 Unknown [id number] 2.16.840.1.050606.3.579.2 .593 1987 Unknown [id number] 2.16.840.1.770618.3.579.2 .593 1987 Unknown [id number] 2.16.840.1.204660.3.579.2 .1285 1987 Unknown [id number] 2.16.840.1.508826.3.579.2 .1285 1987 Unknown [id number] 2.16.840.1.625807.3.579.2 .128 1987 Unknown [id number] 2.16840.1.075934.3.579.2 .1258 1987 Unknown [id number] 2.840.1.536717.3.579.2 .1258 1987 Unknown [id number] 2.840.1.489488.3.579.2 .1258 1987 Unknown [id number] 2.840.1.966682.3.579.2 .1258 1987 Unknown [id number] 2.16840.1.764498.3.579.2 .1258 1987 Unknown [id number] 2.16840.1.401783.3.579.2 .1258 1987 Unknown [id number] 2.16840.1.431567.3.579.2 .1258 1987 Unknown [id number] 2.16840.1.289434.3.579.2 .1258 1987 Unknown [id number] 2.16840.1.624008.3.579.2 .1258 1987 Unknown [id number] 2.16.840.1.456888.3.579.2 .1258 1987 Unknown [id number] 2.16840.1.355967.3.579.2 .1259 1987 Unknown [id number] 2.16.840.1.732080.3.579.2 .9 1987 Unknown [id number] 2.16.840.1.528518.3.579.2 .9 1987 Unknown [id number] 2.16.840.1.502143.3.579.2 .1258 1987 Unknown [id number] 2.16.840.1.768751.3.579.2 .1258 1987 Unknown [id number] 2.16.840.1.568191.3.579.2 .1258 1987 Unknown [id number] 2.16.840.1.824993.3.579.2 .9 1987 Unknown [id number] 2.16.840.1.909530.3.579.2 .1258 1987 Unknown [id number] 2.16.840.1.351778.3.579.2 .1258 1987 Unknown [id number] 2.16.840.1.869516.3.579.2 .1258 1987 Unknown [id number] 2.16.840.1.524815.3.579.2 .9 1957 Unknown [id number] Social History Date Type Detail Facility [facility] if [facility] Work Phone: Start: 1985 Sex Assigned At Female F [facility] Start: 02-26-2023 [facility] Start: 11-09-2023 History of Social function [facility] Start: 11-09-2023 Tobacco use panel [facility] Start: 01-01-2024 [facility] Start: 1985 Sex assigned at Not on file [facility] Tobacco smoking stat [facility] Unknown if ever smoked [facility] Work Phone: Start: 06-27-2024 Sex Female (finding) [facility] Medical Equipment Procedure Code Equipment Code Equipment Origin al Text Equipment Identifier Dates 1 strip by In Vi tro route Daily Use in the morning prior to breakfast, 1 hour after each meal for a total of 4times daily. [id number] Start: 06-02-2024 End: 07-02-2024 1 each by In Vit ro route Daily Use to check FSBS four times daily [id number] Start: 06-02-2024 End: 07-02-2024 Goals Date Patient Goal Desired Activity /State Personal health goal Clinical Notes 02-10-2024 to 09-20-2024 Belle Grafmarkus, [facility] - 09/20/2024 2:20 PM EDTBelle Villanueva, [facility] - 08/24/2024 1:20 PM ESTSusan Spitler, [facility] - 08/18/2024 9:20 AM ESTSusan Spitler, [facility] - 08/01/2024 1:20 PM EST Note Date & Type Note Facility 09-20-2024 History of Present illness Narrative Reason for [...] nursing note reviewed. Exam conducted with a customer support advisor present. Vitals: Estimated body mass index is 24.34 kg/m as calculated from the following: Height as of 04/21/23: 5' 7 . Weight as of this encounter: 155 lb 6.4 oz. BP: 110/80 Patient's last menstrual period was 12/18/2023. ASSESSMENT & PLAN ICD-10-CM 1. Third trimester Z34.93 POCT urinalysis dipstick manually resulted 2. 39 weeks gestation of Z3A.39 Return OB: Patient presents today for a routine obstetrics appointment. Patient is currently 39w4d . Patient states she is doing well but has complaints of being tired due to current . Patient has verbalizes frequent movement. labor precautions was discussed/given and patient was instructed to perform kick counts three times a day. Pt to be induced on 09/27/24 pt to present to [facility] at 2300 on 09/26/24 pit at 0100 go up 2 every hour Orders Placed This Encounter Procedures POCT urinalysis dipstick manually resulted Follow Up: Patient is to return to office in 1 week for routine OB appointment. Documented by Belle Villanueva LPN on behalf of: Scooby Vega DO documented in this encounter [facility] 08-24-2024 History of Present illness Narrative Reason [...] nursing note reviewed. Exam conducted with a customer support advisor present. Vitals: Estimated body mass index is [...] Scooby Vega DO documented in this encounter [facility] 08-18-2024 History of Present illness Narrative [...] nursing note reviewed. Exam conducted with a customer support advisor present. Vitals: Estimated body mass index is [...] Scooby Vega DO documented in this encounter [facility] 08-01-2024 History of Present illness Narrative [...] 81 mg, Daily Blood Glucose Monitoring Suppl (Optini-Ecrebo Glucometer) w/Device kit 1 kit, Does not [...] nursing note reviewed. Exam conducted with a customer support advisor present. Vitals: Estimated body mass index is [...] Scooby Vega DO documented in this encounter [facility] 07-18-2024 History of Present illness Narrative [...] nursing note reviewed. Exam conducted with a customer support advisor present. Vitals: Estimated body mass index is [...] of:Emely Hunter PA-C documented in this encounter [facility] 06-30-2024 History of Present illness Narrative [...] 81 mg, Daily Blood Glucose Monitoring Suppl (Optini-Ecrebo Glucometer) w/Device kit 1 kit, Does not [...] Scooby Vega DO documented in this encounter [facility] 06-02-2024 History of Present illness Narrative [...] nursing note reviewed. Exam conducted with a customer support advisor present. Vitals: Estimated body mass index is [...] Scooby Vega DO documented in this encounter [facility] 05-02-2024 History of Present illness Narrative [...] nursing note reviewed. Exam conducted with a customer support advisor present. Vitals: Estimated body mass index is [...] obtained without difficulty and patient was given [facility] order to have obtained. Orders Placed [...] of: JORDYN Fonseca documented in this encounter [facility] 04-04-2024 History of Present illness Narrative [...] nursing note reviewed. Exam conducted with a customer support advisor present. Vitals: Estimated body mass index is [...] Aspirin. Discussed again in regards to seeing [facility] & referral will be completed. Patient to have NST/BPP starting at 32 weeks gestation. Patient will have Anatomy Scan done at [facility]. Patient is Rh Negative and will [...] Scooby Vega DO documented in this encounter [facility] 04-01-2024 History of Present illness Narrative Physical Therapy Treatment Visit Patient Name: Raphael Eilzabeth Today's Date: 04/01/2024 Encounter Diagnoses Name Primary? [...] and it pops a lot randomly. Precautions: [place] Subjective: Pt states overall, ROM has improved. [...] be instructed in home exercise program. Senior Hardware Design Engineer Goals: To be met in 10 [...] sign below. Date: documented in this encounter [facility] 03-23-2024 History of Present illness Narrative [...] and it pops a lot randomly. Precautions: [place] Subjective: Pt states range of motion of [...] be instructed in home exercise program. Senior Hardware Design Engineer Goals: To be met in 10 [...] sign below. Date: documented in this encounter [facility] 03-18-2024 History of Present illness Narrative [...] and it pops a lot randomly. Precautions: [place] Subjective: Pt states she feels like her [...] sign below. Date: documented in this encounter [facility] 03-11-2024 History of Present illness Narrative [...] and it pops a lot randomly. Precautions: [place] Subjective: Pt states overall she believes hip [...] be instructed in home exercise program. Senior Hardware Design Engineer Goals: To be met in 10 [...] sign below. Date: documented in this encounter [facility] 03-07-2024 History of Present illness Narrative [...] nursing note reviewed. Exam conducted with a customer support advisor present. Vitals: Estimated body mass index is [...] or undercooked meat, and stay away from [facility]. Patient has been consulted regarding any further do's and don'ts of . Patient voiced understanding and all questions and concerns were answered. Follow Up: Patient is to return in 4 weeks for routine OB appointment. Documented by Kalie Loera LPN on behalf of: Scooby Vega DO documented in this encounter [facility] 03-03-2024 History of Present illness Narrative [...] and it pops a lot randomly. Precautions: [place] Subjective: Pt states she has been doing [...] be instructed in home exercise program. Senior Hardware Design Engineer Goals: To be met in 10 [...] sign below. Date: documented in this encounter [facility] 02-26-2024 History of Present illness Narrative [...] and it pops a lot randomly. Precautions: [place] Subjective: Pt states she was able to [...] be instructed in home exercise program. Senior Hardware Design Engineer Goals: To be met in 10 [...] sign below. Date: documented in this encounter [facility] 02-17-2024 History of Present illness Narrative [...] and it pops a lot randomly. Precautions: [place] Subjective: Pt states she has not done [...] be instructed in home exercise program. Senior Hardware Design Engineer Goals: To be met in 10 [...] sign below. Date: documented in this encounter [facility] 02-12-2024 History of Present illness Narrative [...] or undercooked meat, and stay away from [facility]. Patient has also been advised to [...] Estee Cobb LPN documented in this encounter [facility] 02-10-2024 History of Present illness Narrative [...] and it pops a lot randomly. Precautions: [place] Subjective: left hip ant and lateral Pain: [...] be instructed in home exercise program. Senior Hardware Design Engineer Goals: To be met in 10 [...] sign below. Date: documented in this encounter [facility] Evaluation note No assessment inform ation available [facility] Work Phone: Evaluation note Diagnosis Onset Date Left hip pain acute [facility] Work Phone: Evaluation note* Diagnosis [...] HealthcareEvaluation note* Diagnosis Third trimester state, incidental 39 weeks gestation of documented in this encounter [facility] Summary Purpose Family History No Family [...] CREATED AUTHOR AUTHOR'S ORGANIZ ATION 07/03/2024 [facility] DATE CREATED AUTHOR AUTHOR'S ORGANIZ ATION 09/12/2024 [facility] EPIC Care Teams (unrecognized sec [...] December 01, 2023 End: December 01, 2023 Assistant Boiler Operator Relationship Specialty Start Date End Date Jen Granados MD [address] [facility] [place] [address] PCP - General Family Medicine 03/10/23 Assistant Boiler Operator Relationship Specialty Start Date End Date Jen Granados MD [address] [place] [facility] [address] PCP - General Family Medicine 03/10/23 Assistant Boiler Operator Relationship Specialty Start Date End Date Jen Granados MD [address] [place] [facility] [address] PCP - General Family Medicine 03/10/23 Assistant Boiler Operator Relationship Specialty Start Date End Date Jen Granados MD [address] [place] [facility] [address] PCP - General Family Medicine 03/10/23 Assistant Boiler Operator Relationship Specialty Start Date End Date Jen Granados MD [address] [place] [facility] [address] PCP - General Family Medicine 03/10/23 Assistant Boiler Operator Relationship Specialty Start Date End Date Jen Granados MD [address] [place] [facility] [address] PCP - General Family Medicine 03/10/23 Assistant Boiler Operator Relationship Specialty Start Date End Date Jen Granados MD [address] [place] [facility] [address] PCP - General Family Medicine 03/10/23 Assistant Boiler Operator Relationship Specialty Start Date End Date Jen Granados MD [address] [place] [facility] [address] PCP - General Family Medicine 03/10/23 Assistant Boiler Operator Relationship Specialty Start Date End Date Jen Granados MD [address] [facility] [place] [address] PCP - General Family Medicine 03/10/23 Assistant Boiler Operator Relationship Specialty Start Date End Date Jen Granados MD [address] [facility] [address] PCP - General Family Medicine 03/10/23 Assistant Boiler Operator Relationship Specialty Start Date End Date Jen Granados MD [address] [facility] [address] PCP - General Family Medicine 03/10/23 Assistant Boiler Operator Relationship Specialty Start Date End Date Jen Granados MD [address] [facility] [address] PCP - General Family Medicine 03/10/23 Assistant Boiler Operator Relationship Specialty Start Date End Date Jen Granados MD [address] [facility] [place] [address] PCP - General Family Medicine 03/10/23 Assistant Boiler Operator Relationship Specialty Start Date End Date Jen Granados MD [address] [facility] [address] PCP - General Family Medicine 03/10/23 Assistant Boiler Operator Relationship Specialty Start Date End Date Jen Granados MD [address] [facility] [place] [address] PCP - General Family Medicine 03/10/23 Team [...] June 25, 2024 End: June 25, 2024 Assistant Boiler Operator Relationship Specialty Start Date End Date Jen Granados MD [address] [place] [facility] [address] PCP - General Family Medicine 03/10/23 Assistant Boiler Operator Relationship Specialty Start Date End Date Jen Granados MD [address] [place] [facility] [address] PCP - General Family Medicine 03/10/23 Assistant Boiler Operator Relationship Specialty Start Date End Date Jen Granados MD [address] [place] [facility] [address] PCP - General Family Medicine 03/10/23 Assistant Boiler Operator Relationship Specialty Start Date End Date Jen Granados MD [address] [place] [facility] [address] PCP - General Family Medicine 03/10/23 Assistant Boiler Operator Relationship Specialty Start Date End Date Jen Granados MD [address] [place] [facility] [address] PCP - General Family Medicine 03/10/23 Assistant Boiler Operator Relationship Specialty Start Date End Date Jen Granados MD [address] [place] [address] PCP - General Family Medicine 03/10/23 Assistant Boiler Operator Relationship Specialty Start Date End Date Jen Granados MD [address] [place] [address] PCP - General Family Medicine 03/10/23 Assistant Boiler Operator Relationship Specialty Start Date End Date Jen Granados MD [address] [place] [address] PCP - General Family Medicine [...] of left lower limb, excluding foot Procedures OR PHYSICAL THERAPY EVALUATION LOW COMPLEX 20 MINS Ashley Shin MD [address] [place] [address] Gretchen Moreno PT Referral ID Status Reason Start Date Expiration Date V isits Requested Visits Authorized [id number] Authorized 02/10/2024 08/08/2024 99 99 Reason Comments [...] BE BASED ON THE PRIMARY CLINICAL RECORDS. [facility] [employer] [facility]. provides no warranty or guarantee of the accuracy or completeness of information in this document.
== END 2024-09-20 18:35 | disposition home or self-care (01) ==
LOC: FBCO 18:05 → FBC 18:07
PROVIDERS: PCP Family Medicine; Visit Provider Obstetrics & Gynecology
DX: O09.523 Supervision of elderly multigravida, third trimester (principal)
CPT/HCPCS: 59025

== ENCOUNTER 2024-09-23 18:59 | Outpatient (OUT) | payer OTHER, SELFPAY ==
--- NOTE | 2024-09-23 19:02 | US_ITS ---
[place] [id number] Patient Name: RAPHAEL GAMA MRN: [id number] date: 1985 Sex: F Assigned Patient Location: [facility] Current Patient Location: Accession/Order Number: [id number] Exam Date: 09/23/2024 23:49 Report Date: 09/23/2024 23:50 At the request of: BEVERLY SAHA DO Procedure: US OB BPP w non-stress Ultrasound biophysical profile HISTORY: Gestational diabetes There is adequate breathing movement, gross body movement, tone and amniotic fluid volume for total score of 8 out of 8. Amniotic fluid index is 10.6 cm. The heart rate is 127 bpm. US/US OB BPP w non-stress IMPRESSION: Adequate ultrasound biophysical profile. Impression dictated by: Jae Fleming M.D.09/23/2024 11:50 PM [facility]ation [facility] Electron[facility] authenticated by: [id number] Y Date: 09/23/2024 23:50
--- OUTSIDE RECORDS SUMMARY | 2024-09-23 19:11 | XMS_ITS | CCD ---
Author Organization [facility] Care Team Providers Care Vocational [employer] Teacher Name Role Phone DOREEN, DR HOFFMAN Attending Unavailable DARWIN, DR JEN Ramirez Primary Care Unavailable DOREEN, DR HOFFMAN Admitting Unavailable DOREEN, DR HOFFMAN Consulting Unavailable GARY, DR PAUL Admitting Unavailable GARY, DR PAUL Consulting Unavailable GARY, DR PAUL Attending Unavailable DARWIN, DR JEN Ramirez Primary Care Unavailable Scooby Vega Attending Provider [phone] Jen Granados MD Primary Care Provider KALEB ROCKIL Jose Attending Unavailable JEN GRANADOS Referring Unavailable JEN GRANADOS Primary Care Unavailable ALEIDA, ASHLEY K Attending Unavailable JEN GRANADOS Referring Unavailable JEN GRANADOS Primary Care Unavailable Jen Granados MD Primary Care Provider [phone] Jae Cervantes DO Attending Provider Unavailab Jae Redd Admitting Unavailable Jae Cervantes Attending Unavailable Jen Granados Primary Care Unavailable GaryLinhy Admitting Unavailable Gary, Scooby Attending Unavailable GARY, SCOOBY Attending Unavailable GARY, SCOOBY Attending Unavailable GARY, SCOOBY Attending Unavailable GARY, SCOOBY Attending Unavailable GARY, SCOOBY Attending Unavailable GARY, SCOOBY Attending Unavailable EMELY HUNTER Attending Unavailable GRETCHEN MORENO Attending Unavailable ROCK, ASHLEY Referring Unavailable MORENO GRETCHEN Attending Unavailable ROCK, ASHLEY Referring Unavailable MORENO GRETCHEN Attending Unavailable ROCK, ASHLEY Referring Unavailable MORENO, GRETCHEN Attending Unavailable ROCK, ASHLEY Referring Unavailable GARY, SCOOBY Attending Unavailable GARY, SCOOBY Attending Unavailable MORENO, GRETCHEN Attending Unavailable ROCK, ASHLEY Referring Unavailable MORENO, GRETCHEN Attending Unavailable ASHLEY ROCK Referring Unavailable GRETCHEN MORENO Attending Unavailable ALEIDA, ASHLEY Referring Unavailable GRETCHEN MORENO Attending Unavailable ALEIDA, ASHLEY Referring Unavailable SCOOBY VEGA Attending Unavailable EMELY HUNTER Attending Unavailable SCOOBY VEGA Attending Unavailable SCOOBY VEGA Attending Unavailable Allergies Allergy Classification Reported Allergen(s) Allergy Type Date of Onset Reaction(s) Facility (20 sources) Amoxicillin; Translations: [AMOXICILLIN] Drug Allergy 3 GI intolerance [facility] (3 sources) 12 Hour Decongestant Allergy to substance 3 Hives [facility] Medications Current Medications Medication Drug [...] 02/12/2024 Discontinued (Other) omega-3 acid ethyl esters (half-way) 1000 mg oral capsule (11 sources) take [...] antepartum Chew 1 Dose Daily 30 tablet 11/09/2023 Active MV-Min-Fe Fum-FA-DH A ( 1 [...] UA Clear [facility] Color, UA Yellow [facility] Glucose, UA Negative Negative - 1999(110) ++++ mg/dL [facility] Interpretation and review of laboratory results Normal [facility] Ketones, UA Negative Negative - 160(16) ++++ mg/dL [facility] Leukocytes, UA Trace Negative - 500+++ Clair/mcL [facility] Nitrite, UA Negative Negative - Positive [facility] pH, UA 7 5 - 9 [facility] Protein, UA Negative Negative - 1999(20) ++++ mg/dL [facility] Spec Grav, UA 1.015 1 - 1.03 [facility] Urobilinogen, UA 0.2 0.2 - 12 mg/dL [facility] US OB BPP W NON-STRESS on 09-19-2024 [place] [address] Ultrasound Report Signed Patient: RAPHAEL ELIZABETH MR#: [id number] : 1985 Acct:[id number] Age/Sex: 38 / F ADM Date: 09/09/24 Loc: US Attending Dr: Scooby Vega D.O. Ordering Physician: Scooby Vega D.O. Date of Service: 09/09/24 Procedure(s): US OB BPP w non-stress Accession Number(s): [id number] cc: Jen Granados M.D.; Scooby Vega D.O. [place] [id number] Patient Name: RAPHAEL ELIZABETH MRN: [id number]:[id number] date: 1985 Sex: F Assigned Patient Location: [facility] Current Patient Location: Accession/Order Number: [id number] Exam Date: 09/09/2024 19:52 Report Date: 09/09/2024 [...] Jama Lopez M.D.09/09/2024 7:58 PM Dictation Location: [place] [address] Electronically authenticated by: [id number] Y Date: 09/09/2024 19:58 Dictated By: Jama Lopez M.D. Signed By: 09/19/24 1318 DD/ 57 TD/TT: Cycle Consultant: [facility] Radiology Radiologdora guillen MD - 09/19/2024 [place] [address] Ultrasound Report Signed Patient: RAPHAEL ELIZABETH MR#: [id number] : 1985 Acct:[id number] Age/Sex: 38 / F ADM Date: 09/09/24 Loc: US Attending Dr: Scooby Vega D.O. Ordering Physician: Scooby Vega D.O. Date of Service: 09/09/24 Procedure(s): US OB BPP w non-stress Accession Number(s): [id number] cc: Jen Granados M.D.; Scooby Vega D.O. The [place] [address] Patient Name: RAPHAEL ELIZABETH MRN: [facility]:[id number] date: 1985 Sex: F Assigned Patient Location: [facility] Current Patient Location: Accession/Order Number: [id number] Exam Date: 09/09/2024 19:52 Report Date: 09/09/2024 [...] Jama Lopez M.D.09/09/2024 7:58 PM Dictation Location: [place] [address] Electronically authenticated by: [id number] Y Date: 09/09/2024 19:58 Dictated By: Jama Lopez M.D. Signed By: 09/19/24 1318 DD/ 57 TD/TT: Cycle Consultant: [email or web address] US OB BPP W NON-STRESS Ordered By: Radiologist Radiology on 09-19-2024 [facility] Anne Fogarty Work Phone: US OB BPP W NON-STRESS on 09-16-2024 [place] [address] Ultrasound Report Signed Patient: RAPHAEL ELIZABETH MR#: [id number] : 1985 Acct:[id number] Age/Sex: 38 / F ADM Date: 09/16/24 Loc: US Attending Dr: Scooby Vega D.O. Ordering Physician: Scooby Vega D.O. Date of Service: 09/16/24 Procedure(s): US OB BPP w non-stress Accession Number(s): [id number] cc: Jen Granados M.D.; Scooby Vega D.O. [place] [address] Patient Name: RAPHAEL ELIZABETH MRN: [id number]:[id number] date: 1985 Sex: F Assigned Patient Location: [facility] Current Patient Location: Accession/Order Number: [id number] Exam Date: 09/16/2024 20:37 Report Date: 09/16/2024 20:38 At the request of: SCOOBY VEGA DO Procedure: US OB BPP w non-stress Biophysical profile. Reason for exam: GBM. COMPARISON: Biophysical profile 09/09/2024 TECHNIQUE: Transabdominal imaging of the gravid uterus was obtained. FINDINGS: Furnace Door Tender reports the BPP is 8 out of 8. SIDDHARTHA is normal 12 cm. heart rate 124bpm. US/US OB BPP w non-stress IMPRESSION: BPP 8 out of 8. Impression dictated by: Lucas Martin Jr., D.O.09/16/2024 8:38 PM Dictation Location: [place] [address] Electronically authenticated by: [id number] Y Date: 09/16/2024 20:38 Dictated By: Lucas Martin M.D. Signed By: 09/16/242040 DD/ 37 TD/TT: Cycle Consultant: [facility] Radiology, Radiologdora guillen MD - 09/16/2024 [place] [address] Ultrasound Report Signed Patient: RAPHAEL ELIZABETH MR#: [id number] : 1985 Acct:[id number] Age/Sex: 38 / F ADM Date: 09/16/24 Loc: US Attending Dr: Scooby Vega D.O. Ordering Physician: Scooby Vega D.O. Date of Service: 09/16/24 Procedure(s): US OB BPP w non-stress Accession Number(s): [id number] cc: Jen Granados M.D.; Scooby Vega D.O. The [place] [id number] Patient Name: RAPHAEL ELIZABETH MRN: [facility]:[id number] date: 1985 Sex: F Assigned Patient Location: [facility] Current Patient Location: Accession/Order Number: [id number] Exam Date: 09/16/2024 20:37 Report Date: 09/16/2024 20:38 At the request of: SCOOBY VEGA DO Procedure: US OB BPP w non-stress Biophysical profile. Reason for exam: GBM. COMPARISON: Biophysical profile 09/09/2024 TECHNIQUE: Transabdominal imaging of the gravid uterus was obtained. FINDINGS: Furnace Door Tender reports the BPP is 8 out of 8. SIDDHARTHA is normal 12 cm. heart rate 124bpm. US/US OB BPP w non-stress IMPRESSION: BPP 8 out of 8. Impression dictated by: Lucas Martin Jr., D.O.09/16/2024 8:38 PM Dictation Location: [facility] Electronically authenticated by: [id number] Y Date: 09/16/2024 20:38 Dictated By: Lucas Martin M.D. Signed By: 09/16/242040 DD/ 37 TD/TT: Cycle Consultant: [facility] Radiology Study observation (narrative) [facility] US OB BPP W NON-STRESS Ordered By: Radiologist Radiology on 09-16-2024 [facility] Work Phone: US OB BPP W NON-STRESS on 09-09-2024 Radiology Study observation (narrative) [facility] Urinalysis macro (dipstick) panel (U)on 08-24-2024 Bilirubin, UA Negative Negative - 4(70) +++ mg/dL [facility] Blood, UA Negative Negative - 50 Ulises/mcL [facility] Clarity, UA Clear [facility] Color, UA Yellow [facility] Glucose, UA Negative Negative - 2000(110) ++++ mg/dL [facility] Interpretation and review of laboratory results Abnormal [facility] Ketones, UA Negative Negative - 160(16) ++++ mg/dL [facility] Leukocytes, UA Trace Negative - 500+++ Clair/mcL [facility] Nitrite, UA Negative Negative - Positive [facility] pH, UA 7 5 - 9 [facility] Protein, UA Negative Negative - 2000(20) ++++ mg/dL [facility] Spec Grav, UA 1.015 1 - 1.03 [facility] Urobilinogen, UA 0.2 0.2 - 12 mg/dL [facility] US OB BPP W NON-STRESS on 08-20-2024 [place] [address] Ultrasound Report Signed Patient: RAPHAEL ELIZABETH MR#: [id number] : 1985 Acct:[id number] Age/Sex: 38 / F ADM Date: 08/19/24 Loc: US Attending Dr: Scooby Vega D.O. Ordering Physician: Scooby Vega D.O. Date of Service: 08/19/24 Procedure(s): US OB BPP w non-stress Accession Number(s): [id number] cc: Jen Granados M.D.; Scooby Vega D.O. The [address] [address] Patient Name: RAPHAEL ELIZABETH MRN: [facility]:[id number] date: 1985 Sex: F Assigned Patient Location: [facility] Current Patient Location: Accession/Order Number: [id number] Exam Date: 08/20/2024 08:58 Report Date: 08/20/2024 [...] Chan Hudson M.D.08/20/2024 9:03 AM Dictation Location: [place] [address] Electronically authenticated by: [id number] Y Date: 08/20/2024 09:03 Dictated By: Chan Hudson M.D. Signed By: 08/20/24904 DD/ 2 TD/TT: Cycle Consultant: [facility] Radiology, Radiologi MD wilmer - 08/20/2024 [place] [address] Ultrasound Report Signed Patient: RAPHAEL ELIZABETH MR#: [id number] : 1985 Acct:[id number] Age/Sex: 38 / F ADM Date: 08/19/24 Loc: US Attending Dr: Scooby Vega D.O. Ordering Physician: Scooby Vega D.O. Date of Service: 08/19/24 Procedure(s): US OB BPP w non-stress Accession Number(s): [id number] cc: Jen Granados M.D.; Scooby Vega D.O. [place] [address] Patient Name: RAPHAEL ELIZABETH MRN: [id number] date: 1985 Sex: F Assigned Patient Location: [facility] Current Patient Location: Accession/Order Number: [id number] Exam Date: 08/20/2024 08:58 Report Date: 08/20/2024 [...] Chan Hudson M.D.08/20/2024 9:03 AM Dictation Location: [place] [address] Electronically authenticated by: [id number] Y Date: 08/20/2024 09:03 Dictated By: Chan Hudson M.D. Signed By: 08/20/24904 DD/ 0903 TD/TT: Cycle Consultant: [facility] Radiology Study observation (narrative) [facility] US OB BPP W NON-STRESS Ordered By: Radiologist Radiology on 08-20-2024 [facility] Work Phone: Urinalysis macro (dipstick) panel (U)on 08-18-2024 Bilirubin, UA Negative Negative - 4(70) +++ mg/dL [facility] Blood, UA Negative Negative - 50 Ulises/mcL [facility] Clarity, UA Clear [facility] Color, UA Yellow [facility] Glucose, UA Negative Negative - 1999(110) ++++ mg/dL [facility] Interpretation and review of laboratory results Abnormal [facility] Ketones, UA Negative Negative - 160(16) ++++ mg/dL [facility] Leukocytes, UA Negative Negative - 500+++ Clair/mcL [facility] Nitrite, UA Negative Negative - Positive [facility] pH, UA 7 5 - 9 [facility] Protein, UA Trace Negative - 1999(20) ++++ mg/dL [facility] Spec Grav, UA 1.025 1 - 1.03 [facility] Urobilinogen, UA 0.2 0.2 - 12 mg/dL [facility] US OB BPP W NON-STRESS on 08-12-2024 [place] [address] Ultrasound Report Signed Patient: RAPHAEL ELIZABETH MR#: [id number] : 1985 Acct:[id number] Age/Sex: 38 / F ADM Date: 08/12/24 Loc: US Attending Dr: Scooby Vega D.O. Ordering Physician: Scooby Vega D.O. Date of Service: 08/12/24 Procedure(s): US OB BPP w non-stress Accession Number(s): [id number] cc: Jen Granados M.D.; Scooby Vega D.O. [address] [address] Patient Name: RAPHAEL ELIZABETH MRN: [id number] date: 1985 Sex: F Assigned Patient Location: [facility] Current Patient Location: Accession/Order Number: [id number] Exam Date: 08/12/2024 22:10 Report Date: 08/12/2024 22:12 At the request of: SCOOBY VEGA DO Procedure: US OB BPP w non-stress Biophysical profile. Reason for exam: GBM. COMPARISON: Biophysical profile 08/06/2024. TECHNIQUE: Transabdominal imaging of the gravid uterus was obtained. FINDINGS: Furnace Door Tender reports the BPP is 8 out of 8. SIDDHARTHA is normal 11.2 cm. heart rate 142 bpm. US/US OB BPP w non-stress IMPRESSION: BPP 8 out of 8. Impression dictated by: Lucas Martin Jr., D.O.08/12/2024 10:12 PM Dictation Location: [place] [address] Electronically authenticated by: [id number] Y Date: 08/12/2024 22:12 Dictated By: Lucas Martin M.D. Signed By: 08/12/242213 DD/ 11 TD/TT: Cycle Consultant: [facility] Radiology, Radiologi MD wilmer - 08/12/2024 [place] [address] Ultrasound Report Signed Patient: RAPHAEL ELIZABETH MR#: [id number] : 1985 Acct:[id number] Age/Sex: 38 / F ADM Date: 08/12/24 Loc: US Attending Dr: Scooby Vega D.O. Ordering Physician: Scooby Vega D.O. Date of Service: 08/12/24 Procedure(s): US OB BPP w non-stress Accession Number(s): [id number] cc: Jen Granados M.D.; Scooby Vega D.O. The [address] [address] Patient Name: RAPHAEL ELIZABETH MRN: [facility]:[id number] date: 1985 Sex: F Assigned Patient Location: [facility] Current Patient Location: Accession/Order Number: [id number] Exam Date: 08/12/2024 22:10 Report Date: 08/12/2024 22:12 At the request of: SCOOBY VEGA DO Procedure: US OB BPP w non-stress Biophysical profile. Reason for exam: GBM. COMPARISON: Biophysical profile 08/06/2024. TECHNIQUE: Transabdominal imaging of the gravid uterus was obtained. FINDINGS: Furnace Door Tender reports the BPP is 8 out of 8. SIDDHARTHA is normal 11.2 cm. heart rate 142 bpm. US/US OB BPP w non-stress IMPRESSION: BPP 8 out of 8. Impression dictated by: Lucas Martin Jr., D.O.08/12/2024 10:12 PM Dictation Location: [place] Electronically authenticated by: [id number] Y Date: 08/12/2024 22:12 Dictated By: Lucas Martin M.D. Signed By: 08/12/242213 DD/ 11 TD/TT: Cycle Consultant: [facility] Anne Fogarty Radiology Study observation (narrative) [facility] US OB BPP W NON-STRESS Ordered By: Radiologist Radiology on 08-12-2024 [facility] Anne Fogarty Work Phone: US OB BPP W NON-STRESS on 08-06-2024 [place] [address] Ultrasound Report Signed Patient: RAPHAEL ELIZABETH MR#: [id number] : 1985 Acct:[id number] Age/Sex: 38 / F ADM Date: 08/05/24 Loc: US Attending Dr: Scooby Vega D.O. Ordering Physician: Scooby Vega D.O. Date of Service: 08/05/24 Procedure(s): US OB BPP w non-stress Accession Number(s): [id number] cc: Jen Granados M.D.; Scooby Vega D.O. [place] [id number] Patient Name: RAPHAEL ELIZABETH MRN: [facility]:[id number] date: 1985 Sex: F Assigned Patient Location: [facility] Current Patient Location: Accession/Order Number: [id number] Exam Date: 08/05/2024 19:09 Report Date: 08/06/2024 [...] Signed By: 08/06/24 0753 DD/ 0751 TD/TT: Cycle Consultant: [facility] Radiology, Radiologi MD wilmer - 08/06/2024 [place] [address] Ultrasound Report Signed Patient: RAPHAEL ELIZABETH MR#: [id number] : 1985 Acct:[id number] Age/Sex: 38 / F ADM Date: 08/05/24 Loc: US Attending Dr: Scooby Vega D.O. Ordering Physician: Scooby Vega D.O. Date of Service: 08/05/24 Procedure(s): US OB BPP w non-stress Accession Number(s): [id number] cc: Jen Granados M.D.; Scooby Vega D.O. The [address] [address] Patient Name: RAPHAEL ELIZABETH MRN: [facility]:[id number] date: 1985 Sex: F Assigned Patient Location: [facility] Current Patient Location: Accession/Order Number: [id number] Exam Date: 08/05/2024 19:09 Report Date: 08/06/2024 [...] Signed By: 08/06/24 0753 DD/ 075 TD/TT: Cycle Consultant: [facility] Anne Fogarty Radiology Study observation (narrative) [facility] US OB BPP W NON-STRESS Ordered By: Radiologist Radiology on 08-06-2024 [facility] Anne Fogarty Work Phone: US OB BPP W NON-STRESS on 08-01-2024 [place] [address] Ultrasound Report Signed Patient: RAPHAEL ELIZABETH MR#: [id number] : 1985 Acct:[id number] Age/Sex: 38 / F ADM Date: 07/29/24 Loc: US Attending Dr: Scooby Vega D.O. Ordering Physician: Scooby Vega D.O. Date of Service: 07/29/24 Procedure(s): US OB BPP w non-stress Accession Number(s): [id number] cc: Jen Granados M.D.; Scooby Vega D.O. The [place] [id number] Patient Name: RAPHAEL ELIZABETH MRN: [facility]:[id number] date: 1985 Sex: F Assigned Patient Location: [facility] Current Patient Location: Accession/Order Number: [id number] Exam Date: 07/29/2024 19:04 Report Date: 08/01/2024 [...] M.D. Signed By: 08/01/24713 DD/ 0 TD/TT: Cycle Consultant: [facility] Radiology, Radiologi MD wilmer - 08/01/2024 [place] [address] Ultrasound Report Signed Patient: RAPHAEL ELIZABETH MR#: [id number] : 1985 Acct:[id number] Age/Sex: 38 / F ADM Date: 07/29/24 Loc: US Attending Dr: Scooby Vega D.O. Ordering Physician: Scooby Vega D.O. Date of Service: 07/29/24 Procedure(s): US OB BPP w non-stress Accession Number(s): [id number] cc: Jen Granados M.D.; Scooby Vega D.O. The [place] [address] Patient Name: RAPHAEL ELIZABETH MRN: [facility]:[id number] date: 1985 Sex: F Assigned Patient Location: [facility] Current Patient Location: Accession/Order Number: [id number] Exam Date: 07/29/2024 19:04 Report Date: 08/01/2024 [...] M.D. Signed By: 08/01/24713 DD/ 0 TD/TT: Cycle Consultant: [facility] Radiology Study observation (narrative) [facility] US OB BPP W NON-STRESS Ordered By: Radiologist Radiology on 08-01-2024 [facility] Work Phone: Urinalysis macro (dipstick) panel (U)on 08-01-2024 Bilirubin, UA Negative Negative - 4(70) +++ mg/dL [facility] Blood, UA Negative Negative - 50 Ulises/mcL [facility] Clarity, UA Clear [facility] Color, UA Yellow [facility] Glucose, UA Negative Negative - 2000(110) ++++ mg/dL [facility] Interpretation and review of laboratory results Abnormal [facility] Ketones, UA Negative Negative - 160(16) ++++ mg/dL [facility] Leukocytes, UA Trace Negative - 500+++ Clair/mcL [facility] Nitrite, UA Negative Negative - Positive [facility] pH, UA 7.5 5 - 9 [facility] Protein, UA Negative Negative - 2000(20) ++++ mg/dL [facility] Spec Grav, UA 1.015 1 - 1.03 [facility] Urobilinogen, UA 0.2 0.2 - 12 mg/dL [facility] Urinalysis macro (dipstick) panel (U)on 07-18-2024 Bilirubin, UA Negative Negative - 4(70) +++ mg/dL [facility] Blood, UA Negative Negative - 50 Ulises/mcL [facility] Clarity, UA Clear [facility] Color, UA Yellow [facility] Glucose, UA Negative Negative - 1999(110) ++++ mg/dL [facility] Interpretation and review of laboratory results Normal [facility] Ketones, UA Negative Negative - 160(16) ++++ mg/dL [facility] Leukocytes, UA Negative Negative - 500+++ Clair/mcL [facility] Nitrite, UA Negative Negative - Positive [facility] pH, UA 7 5 - 9 [facility] Protein, UA Negative Negative - 1999(20) ++++ mg/dL [facility] Spec Grav, UA 1.025 1 - 1.03 [facility] Urobilinogen, UA 0.2 0.2 - 12 mg/dL [facility] ALL CBC WITH AUTO DIFFon BASOPHILS ABSOLUTE AUTO 0 [facility] Basophils/100 WBC (Bld) 0.2 % 0.2 - 2.0 % [facility] Eosinophils/100 WBC (Bld) 0.9 % 0.9 - 7.0 % [facility] Erythrocyte distribution width (RBC) [Ratio] 13 % 11.0 - 15.0 % [facility] Hematocrit (Bld) [Volume fraction] 32.2 % Low 36.0 - 48.0 % [facility] Hemoglobin (Bld) [Mass/Vol] 10.9 g/dL Low 12.0 - 16.0 g/dL [facility] IMMATURE GRANULOCYTES ABS AUTO 0.13 High [facility] Immature granulocytes/100 WBC (Bld) 1.4 % High 0.0 - 0.5 % [facility] Interpretation and review of laboratory results Abnormal [facility] LYMPHOCYTES ABSOLUTE AUTO 1.4 [facility] Lymphocytes/100 WBC (Bld) 15.4 % Low 20.5 - 60.0 % [facility] MCH (RBC) [Entitic mass] 32.7 pg 26.7 - 34.0 pg [facility] MCHC (RBC) [Mass/Vol] 33.9 g/dL 29.9 - 35.2 g/dL [facility] MCV (RBC) [Entitic vol] 96.7 fL 81.0 - 99.0 fL [facility] MONOCYTES ABSOLUTE AUTO 0.5 [facility] Monocytes/100 WBC (Bld) 4.8 % 1.7 - 12.0 % [facility] NEUTROPHILS ABSOLUTE AUTO 7.2 High [facility] Neutrophils/100 WBC (Bld) 77.3 % High 43.0 - 75.0 % [facility] Platelet mean volume (Bld) [Entitic vol] 9.2 fL Low 9.5 - 13.5 fL [facility] EO # 0.1 [facility] PLT 229 [facility] RBC 3.33 Low [facility] WBC 9.3 [facility] Urinalysis macro (dipstick) panel (U)on 06-30-2024 Bilirubin, UA Negative Negative - 4(70) +++ mg/dL [facility] Blood, UA Negative Negative - 50 Ulises/mcL [facility] Clarity, UA Clear [facility] Color, UA Yellow [facility] Glucose, UA Negative Negative - 1999(110) ++++ mg/dL [facility] Interpretation and review of laboratory results Abnormal [facility] Ketones, UA Negative Negative - 160(16) ++++ mg/dL [facility] Leukocytes, UA Trace Negative - 500+++ Clair/mcL [facility] Nitrite, UA Negative Negative - Positive [facility] pH, UA 8.5 5 - 9 [facility] Protein, UA Positive Negative - 1999(20) ++++ mg/dL [facility] Comment on above: trace Spec Grav, UA 1.015 1 - 1.03 [facility] Urobilinogen, UA 0.2 0.2 - 12 mg/dL [facility] Basophils/100 WBC Manual cnt (Bld)on 06-25-2024 Basophils/100 WBC (Bld) Basophils/100 leukocytes in Blood by Manual count Low 0.2-2.0 [facility] Eosinophils/100 WBC Manual c nt (Bld)on 06-25-2024 Eosinophils/100 WBC (Bld) Eosinophils/100 leukocytes in Blood by Manual count 0.9-7.0 [facility] Erythrocyte distribution wid th Auto (RBC) [Ratio]on 06-25-2024 Erythrocyte distribution width (RBC) [Ratio] Erythrocyte distribution width [Ratio] by Automated count 11.0-15.0 [facility] Estimated glomerular filtrat ion rate (GFR) non- Americanon 06-25-2024 GFR/1.73 sq M.predicted among non-blacks MDRD (S/P/Bld) [Vol rate/Area] Estimated glomerular filtration rate (GFR) non- >=60 mL/min/1.73 m 2 [facility] Hematocrit Auto (Bld) [Volum e fraction]on 06-25-2024 Hematocrit (Bld) [Volume fraction] Hematocrit [Volume Fraction] of Blood by Automated count Low 36.0-48.0 [facility] Hemoglobin [Mass/volume] in Bloodon 06-25-2024 Hemoglobin (Bld) [Mass/Vol] Hemoglobin [Mass/volume] in Blood Low 12.0-16.0 [facility] Laboratory - Chemistry and C hemistry - challengeon 06-25-2024 Calcium [Mass/Vol] 8.2 mg/dL Low 8.5-10.1 [facility] Chloride [Moles/Vol] 99 mmol/L 98-107 [facility] CO2 [Moles/Vol] 21.2 mmol/L 21.0-32.0 [facility] Creatinine [Mass/Vol] 0.89 mg/dL 0.55-1.02 [facility] GFR/1.73 sq M.predicted MDRD (S/P/Bld) [Vol rate/Area] mL/min/{1.73_m2} >=60 mL/min/1.73 m 2 [facility] Glucose [Mass/Vol] 98 mg/dL 74-106 [facility] Potassium [Moles/Vol] 3.7 mmol/L 3.5-5.1 [facility] Sodium [Moles/Vol] 130 mmol/L Low 136-145 [facility] Urea nitrogen [Mass/Vol] 7.0 mg/dL 7.0-18.0 [facility] Urea nitrogen/Creatinine [Mass ratio] 7.9 mg/mg [facility] Bilirubin Ql (U) Negative NEGATIVE [facility] Glucose (U) [Mass/Vol] Negative NEGATIVE [facility] Ketones Ql (U) 15 mg/dL Abnormal NEGATIVE [facility] pH (U) 7.5 [pH] 5.0-9.0 [facility] Specific gravity (U) [Rel density] 1.015 1.005-1.025 [facility] Urobilinogen Qn (U) 1.0 {Ree'U}/dL 0.2-1.0 [facility] Laboratory - Hematology and Cell countson 06-25-2024 Band form neutrophils/100 WBC (Bld) 2.0 % 0-5 [facility] Lymphocytes/100 WBC (Bld) 2.0 % Low 20.5-60.0 [facility] Monocytes/100 WBC (Bld) 5.0 % 1.7-12.0 [facility] Laboratory - Microbiology an d Antimicrobial susceptibilityon 06-25-2024 SARS-CoV-2 (COVID-19) RNA JUAN ANTONIO+probe Ql (Unsp spec) Negative NEGATIVE [facility] Comment on above: This test [...] ationon 06-25-2024 Appearance (U) CLOUDY Abnormal CLEAR [facility] Color (U) DK YELLOW YELLOW [facility] Laboratory - Urinalysison Leukocyte esterase Test strip Ql (U) Negative NEGATIVE [facility] Nitrite Ql (U) Negative NEGATIVE [facility] Protein Ql (U) TRACE mg/dL NEG/TRACE [facility] Leukocytes [#/volume] correc leroy for nucleated erythrocytes in Blood by Automated counon 06-25-2024 WBC corrected for nucl RBC Auto (Bld) [#/Vol] Leukocytes [#/volume] corrected for nucleated erythrocytes in Blood by Automated coun 4.0-11.0 [facility] MCH Auto (RBC) [Entitic mass ]on 06-25-2024 MCH (RBC) [Entitic mass] MCH [Entitic mass] by Automated count 26.7-34.0 [facility] MCHC Auto (RBC) [Mass/Vol]on 06-25-2024 MCHC (RBC) [Mass/Vol] MCHC [Mass/volume] by Automated count 29.9-35.2 [facility] MCV Auto (RBC) [Entitic vol] on 06-25-2024 MCV (RBC) [Entitic vol] MCV [Entitic volume] by Automated count 81.0-99.0 [facility] No Panel Informationon 06-25 Absolute Basophils (Manual) 0.00 10 3/uL 0.00-0.10 [facility] Band Neutrophils # (Manual) 0.2 10 3/uL 0.0-0.3 [facility] Eosinophils # (Manual) 0.08 10 3/uL 0.00-0.70 [facility] Lymphocytes # (Manual) 0.16 10 3/uL Low 1.20-3.80 [facility] Monocytes # (Manual) 0.41 10 3/uL 0.30-0.80 [facility] Segmented Neutrophils # (Manual) 7.38 10 3/uL High 1.4-6.5 [facility] Urine Occult Blood Negative NEGATIVE [facility] Bedside Influenza Type A Antigen Positive Abnormal [facility] Comment on above: NOTE: Live attenuate d influenza vaccine viruses can cause apositive result for a rapid influenza diagnostic test ifadministered up to 7 days prior to rapid testing. Bedside Influenza Type B Antigen Negative [facility] Comment on above: Negative for Flu B p rotein antigen. Infection due to Flu Bcannot be ruled out. Flu B antigen in the sample may bebelow the detection limit of the test. Platelet mean volume Auto (B ld) [Entitic vol]on 06-25-2024 Platelet mean volume (Bld) [Entitic vol] Platelet mean volume [Entitic volume] in Blood by Automated count Low 9.5-13.5 [facility] Platelets Auto (Bld) [#/Vol] on 06-25-2024 Platelets (Bld) [#/Vol] Platelets [#/volume] in Blood by Automated count 150-450 [facility] RBC Auto (Bld) [#/Vol]on RBC (Bld) [#/Vol] Erythrocytes [#/volu me] in Blood by Automated count Low 4.20-5.40 [facility] Segmented neutrophils/100 WB C Manual cnt (Bld)on 06-25-2024 Segmented neutrophils/100 WBC (Bld) Manual blood segmented neutrophils/100 leukocytes High 43.0-75.0 [facility] Serum or plasma anion gap de terminationon 06-25-2024 Anion gap [Moles/Vol] Serum or plasma anion gap determination [facility] Urine Cultureon 06-25-2024 Bacteria identified Cx Nom (U) No Growth 2 Days PERFORMED BY: [place] [id number] PATHOLOGIST ROTARY ENGRAVER DANTE PALACIOS M.D. Normal [facility] Comment on above: Performed By: #### C UU #### [address] IGP,APTIMA HPV,AGE GDLNon AGE GDLN ACOG TESTING Note . [facility] Comment on above: TESTS RESULT FLAG UN ITS REF RANGE LAB Clinician Provided Cytology Information Source.............Cervix No. of containers..01 ThinPrep Vial Age Algo ACOG Annel... 30-65 01 FLAG LEGEND: L-Low Normal,H-High Normal,LL-Alert Low,HH-Alert High <-Panic Low,>-Panic High,A-Abnormal,AA-Critical Abnormal Performed at: 01 =[address] [address] Kathryn Maldonado MD, HPV APTIMA Negative Negative [facility] Comment on above: This nucleic acid am plification test detects fourteen high- risk HPV types (16,18,31,33,35,39,45,51,52,56,58,59,66,68) without differentiation. Performed at: =[address] [id number] News Producer: Kathryn Maldonado MD, Phone: [phone] Performed at: [address] [id number] News Producer: Kathryn Maldonado MD, Phone: [phone] IGP, APTIMA HPV, RFX 16/18,45 Note . [facility] Comment on above: TESTS RESULT FLAG UN ITS REF RANGE LAB DIAGNOSIS: 02 NEGATIVE FOR INTRAEPITHELIAL LESION OR MALIGNANCY. Specimen adequacy: 02 Satisfactory for evaluation. Endocervical and/or squamous metaplastic cells (endocervical component) are present. Performed by: Elidia Shankar, Pipe Machine Operator . 02 Note: Note 02 [...] <-Panic Low,>-Panic High,A-Abnormal,AA-Critical Abnormal Performed at: [address] [address] Kathryn Maldonado MD, BRUSH-SPATULA CERVIX [facility] RECURRENT VAGINITIS (HTRX)on 05-05-2024 ATOPOBIUM VAGINAE 0 [facility] ATOPOBIUM VAGINAE Not detected [facility] BVAB 2,3 (BACTERIAL VAGINOSIS ASSOCIATED BACTERIA 2, 3); MOBILUNCUS SPP 0 [facility] BVAB 2,3 (BACTERIAL VAGINOSIS ASSOCIATED BACTERIA 2, 3); MOBILUNCUS SPP Not detected [facility] JED ALBICANS, PARAPSILOSIS, TROPICALIS 0 [facility] JED ALBICANS, PARAPSILOSIS, TROPICALIS Not detected [facility] JED GLABRATA 0 [facility] JED GLABRATA Not detected [facility] Healthcare JED KRUSEI 0 [facility] JED KRUSEI Not detected [facility] CHLAMYDIA TRACHOMATIS 0 [facility] Healthcare CHLAMYDIA TRACHOMATIS Not detected [facility] Healthcare GARDNERELLA VAGINALIS 0 [facility] GARDNERELLA VAGINALIS Not detected [facility] MEGASPHAERA (TYPES 1, 2) 0 [facility] MEGASPHAERA (TYPES 1, 2) Not detected [facility] MYCOPLASMA GENITALIUM 0 [facility] MYCOPLASMA GENITALIUM Not detected [facility] NEISSERIA GONORRHOEAE 0 [facility] NEISSERIA GONORRHOEAE Not detected [facility] TRICHOMONAS VAGINALIS 0 [facility] TRICHOMONAS VAGINALIS Not detected [facility] Urinalysis macro (dipstick) panel (U)on 05-03-2024 Bilirubin, UA Negative Negative - 4(70) +++ mg/dL [facility] Blood, UA Negative Negative - 50 Ulises/mcL [facility] Clarity, UA Clear [facility] Color, UA Yellow [facility] Glucose, UA Negative Negative - 1999(110) ++++ mg/dL [facility] Interpretation and review of laboratory results Normal [facility] Ketones, UA Negative Negative - 160(16) ++++ mg/dL [facility] Leukocytes, UA Negative Negative - 500+++ Clair/mcL [facility] Nitrite, UA Negative Negative - Positive [facility] pH, UA 0.5 5 - 9 [facility] Protein, UA Negative Negative - 1999(20) ++++ mg/dL [facility] Spec Grav, UA 1.025 1 - 1.03 [facility] Urobilinogen, UA 1.0 0.2 - 12 mg/dL [facility] Human papilloma virus 16+18+ 31+33+35+39+45+51+52+56+58+59+66+68 DNA [Presence] in Denis 05-02-2024 HPV 16+18+31+33+35+39+4 5+51+52+56+58+59+66 +68 DNA Probe+sig amp Ql (Cvx) Human papilloma virus 16+18+31+33+35+39+45+51+52+5 6+58+59+66+68 DNA [Presence] in Cer [facility] Comment on above: This nucleic acid am plification test detects fourteen high- risk HPV types (16,18,31,33,35,39,45,51,52,56,58,59,66,68)without differentiation.Performed at: = - [address] [id number] Director: Kathryn Maldonado MD, Phone: [phone] at: [address] [id number] Director: Kathryn Maldonado MD, Phone: [phone] No Panel Informationon 05-02 HPV High Risk Other Comment Note . [facility] Comment on above: TESTS RESULT FLAG UN ITS REF RANGE LAB JESE GNOSIS: 02 NEGATIVE FOR INTRAEPITHELIAL LESION OR MALIGNANCY.Specimen adequacy: 02 Satisfactory for evaluation. Endocervical and/or squamous metaplastic cells (endocervical component) are present.Performed by: 02 Thao Shankar, Pipe Machine Operator. 02Note: Note 02 The Pap [...] <-Panic Low,>-Panic High,A-Abnormal,AA-Critical Abnormal --Performed at:[address] [address] Kathryn Maldonado MD, Reference Lab Test Patient Age Note . [facility] Comment on above: TESTS RESULT FLAG UN ITS REF RANGE LAB Clinician Provided Cytology Information Source.............Cervix No. of containers..01 ThinPrep VialAge Richie SANDERS Annel... FLAG LEGEND: L-Low Normal,H-High Normal,LL-Alert Low,HH-Alert High <-Panic Low,>-Panic High,A-Abnormal,AA-Critical Abnormal --Performed at:01 =G [address] [address] Kathryn Maldonado MD, AFP, SERUM, OPEN SPINA BIFID Aon 05-01-2024 AFP MOM 1.18 . [facility] AFP VALUE 61.8 ng/mL . [facility] COMMENT: Comment . [facility] Comment on above: Cydney Rodriguez , Ph.D., [facility] Director References: Available Upon Request. Multiples Of Median Cutoffs For AFP Elevations Chiang 2.5 Black 2.8 IDD 2.0 Twins 4.5 Abbreviation Definitions IDD - Insulin Dep Diabetes OSBR - Open Spina Bifida Risk For further inquiries contact [facility] at [phone]. This test was developed and its performance characteristics determined by [employer]. It has not been cleared or approved by the Food and Drug Administration. Performed at: [facility] [address] [facility] [address] [facility], [place], [place] [id number] News Producer: Marissa Kovacs [facility], Phone: [phone] GEST. AGE ON COLLECTION DATE 19.0 . weeks [facility] GESTAT. AGE BASED ON LMP . [facility] Comment on above: Recalculations are n ot recommended when gestational dating by LMP and ultrasound are within 10 days. INSULIN DEP DIABETES No . [facility] INTERPRETATION Comment . [facility] Comment on above: Interpretation: Scre en [...] Customer Services to discuss available options. The [employer] recommends amniocentesis be offered to women age 35 and older. [age] [facility] MULTIPLE GESTATION No . [facility] OSBR RISK 1 IN 6916 . [facility] RACE . [facility] RESULTS Report . [facility] TEST RESULTS: Negative . [facility] WEIGHT 135 . lbs [facility] N N LMP [id number] 3 15 N 1 Y 135 N N N N N White/ [facility] Alpha-fetoprotein (AFP) paige urement (qpbgydjr-me-ekrcbz)on 04-29-2024 AFP [MoM] Alpha-fetoprotein (A FP) measurement (wrmbsqcq-ok-huezmc) . [facility] Assess gestational ageon Gestational age Assess gestational age . [facility] Estimation of maternal age-s pecific risk of Down syndrome birthon 04-29-2024 Age [Time] Estimation of matern al age-specific risk of Down syndrome . [facility] Insulin dependent diabetes m ellitus detectionon 04-29-2024 Insulin dependent diabetes mellitus Ql Insulin dependent diabetes mellitus detection . [facility] Interpretation of serum or p lasma second trimester quad maternal screen (narrative reon 04-29-2024 Second trimester quad maternal screen Darshan [Interp] Interpretation of serum or plasma second trimester quad maternal screen (narrative re . [facility] Comment on above: Interpretation: Scre [...] 04-29 AFP Triple Screen Comment Comment . [facility] Comment on above: Cydney Rodriguez , Ph.D., DABCCDirectorReferences: Available Upon Request.Multiples Of Median Cutoffs For AFP ElevationsSingleton 2.5 Black 2.8IDD 2.0 Twins 4.5 Abbreviation DefinitionsIDD - Insulin Dep DiabetesOSBR - Open Spina Bifida RiskFor further inquiries contact [employer] at [phone].This test was developed and its performance characteristicsdetermined by [employer]. It has not been cleared or approvedby the Food and Drug Administration.Performed at: [facility] [employer] [id number] [place], [place] [id number] Director: Marissa Kovacs [facility], Phone: [phone] Alpha Fetoprotein Results Received Report . [facility] Gestational Age Calculation Method LMP . [facility] Comment on above: Recalculations are n ot recommended when gestational datingby LMP and ultrasound are within 10 days. Maternal Quad Test Risk 6916 . [facility] Maternal Race . [facility] Multiple No . [facility] Serum or plasma eepnp-9-qxnv protein measurement (mass/volume)on 04-29-2024 AFP [Mass/Vol] Serum or plasma lswtp-1-gftwgaodxox measurement (mass/volume) . [facility] BOX TEST SENT OUTon BOX TEST SENT OUT Y [facility] UNITY BOX [facility] ALL CBC WITH AUTO DIFFon BASOPHILS ABSOLUTE AUTO 0.0 [facility] Basophils/100 WBC (Bld) 0.5 % 0.2 - 2.0 % [facility] Eosinophils/100 WBC (Bld) 0.9 % 0.9 - 7.0 % [facility] Erythrocyte distribution width (RBC) [Ratio] 11.9 % 11.0 - 15.0 % [facility] Hematocrit (Bld) [Volume fraction] 37.3 % 36.0 - 48.0 % [facility] Hemoglobin (Bld) [Mass/Vol] 12.7 g/dL 12.0 - 16.0 g/dL [facility] IMMATURE GRANULOCYTES ABS AUTO 0.02 [facility] Immature granulocytes/100 WBC (Bld) 0.3 % 0.0 - 0.5 % [facility] Interpretation and review of laboratory results Abnormal [facility] LYMPHOCYTES ABSOLUTE AUTO 1.8 [facility] Lymphocytes/100 WBC (Bld) 27.4 % 20.5 - 60.0 % [facility] MCH (RBC) [Entitic mass] 32.2 pg 26.7 - 34.0 pg [facility] MCHC (RBC) [Mass/Vol] 34.0 g/dL 29.9 - 35.2 g/dL [facility] MCV (RBC) [Entitic vol] 94.4 fL 81.0 - 99.0 fL [facility] MONOCYTES ABSOLUTE AUTO 0.3 [facility] Monocytes/100 WBC (Bld) 5.1 % 1.7 - 12.0 % [facility] NEUTROPHILS ABSOLUTE AUTO 4.4 [facility] Neutrophils/100 WBC (Bld) 65.8 % 43.0 - 75.0 % [facility] Platelet mean volume (Bld) [Entitic vol] 9.4 fL Low 9.5 - 13.5 fL [facility] TBH EO # 0.1 [facility] PLT 215 [facility] RBC 3.95 Low [facility] WBC 6.6 [facility] HCG ( test) Ql (U)o n 02-12-2024 Interpretation and review of laboratory results Abnormal [facility] Preg Test, Ur Positive [facility] Urinalysis macro (dipstick) panel (U)on 02-12-2024 Bilirubin, UA Negative Negative - 4(70) +++ mg/dL [facility] Blood, UA Negative Negative - 50 Ulises/mcL [facility] Clarity, UA Clear [facility] Color, UA Yellow [facility] Glucose, UA Negative Negative - 2000(110) ++++ mg/dL [facility] Interpretation and review of laboratory results Normal [facility] Ketones, UA Negative Negative - 160(16) ++++ mg/dL [facility] Leukocytes, UA Negative Negative - 500+++ Clair/mcL [facility] Nitrite, UA Negative Negative - Positive [facility] pH, UA 6.5 5 - 9 [facility] Protein, UA Negative Negative - 1999(20) ++++ mg/dL [facility] Spec Grav, UA 1.015 1 - 1.03 [facility] Urobilinogen, UA 1.0 0.2 - 12 mg/dL [facility] No Panel Informationon 11-29 Human Chorionic Gonadotropin, Quant 2 mIU/mL [facility] Comment on above: 5-50 0.2-1 BJUZ80-11 0 1-2 KXZEQ795-5,000 2-3 LAUWX370-09,000 3-4 WEEKS1,000-50,000 4-5 WEEKS10,000-100,000 5-6 WEEKS15,000-200,000 6-8 WEEKS10,000-100,000 2-3 MONTHS No Panel Informationon 11-22 Human Chorionic Gonadotropin, Quant 3 mIU/mL [facility] Comment on above: 5-50 0.2-1 QHIS60-43 0 1-2 CKMME567-0,000 2-3 WHWIY712-60,000 3-4 WEEKS1,000-50,000 4-5 WEEKS10,000-100,000 5-6 WEEKS15,000-200,000 6-8 WEEKS10,000-100,000 2-3 MONTHS No Panel Informationon 11-16 Human Chorionic Gonadotropin, Quant 6 mIU/mL [facility] Comment on above: 5-50 0.2-1 CNVY12-24 0 1-2 NACOW731-3,000 2-3 WTVSB151-35,000 3-4 WEEKS1,000-50,000 4-5 WEEKS10,000-100,000 5-6 WEEKS15,000-200,000 6-8 WEEKS10,000-100,000 2-3 MONTHS No Panel Informationon 11-08 Human Chorionic Gonadotropin, Quant 27 mIU/mL [facility] Comment on above: 5-50 0.2-1 HUTZ92-52 0 1-2 MDSGT598-3,000 2-3 PQROS068-34,000 3-4 WEEKS1,000-50,000 4-5 WEEKS10,000-100,000 5-6 WEEKS15,000-200,000 6-8 WEEKS10,000-100,000 2-3 MONTHS Basophils Auto (Bld) [#/Vol] on 10-23-2023 Basophils (Bld) [#/Vol] 0.0 10 3/uL 0.0-0.1 [facility] Basophils/100 WBC Auto (Bld) on 10-23-2023 Basophils/100 WBC (Bld) 0.8 % 0.2-2.0 [facility] Eosinophils/100 WBC Auto (Bl d)on 10-23-2023 Eosinophils/100 WBC (Bld) 1.4 % 0.9-7.0 [facility] Erythrocyte distribution wid th Auto (RBC) [Ratio]on 10-23-2023 Erythrocyte distribution width (RBC) [Ratio] 11.9 % 11.0-15.0 [facility] Hematocrit Auto (Bld) [Volum e fraction]on 10-23-2023 Hematocrit (Bld) [Volume fraction] 36.0 % 36.0-48.0 [facility] Hemoglobin [Mass/volume] in Bloodon 10-23-2023 Hemoglobin (Bld) [Mass/Vol] 11.8 g/dL 12.0-16.0 [facility] Krzysztof 10-23-2023 L Specimen: [id number] R eceived: 10/26/23 Status: MAIA Newell Num: [id number] Spec Type: Surgical Subm Dr: Scooby Vega Tissues: A Products of Conception - Spontaneous or Missed (POC) Procedures: HE/3, Gross/Micro L4 Age/ Patient Sex Location Account Attending Physician Raphael Elizabeth 37/F [facility] [id number] Scooby Vega SPEC NUM: [id number] RECD: 10/26/23 STATUS: [employer] NUM: [id number] JANIE: 10/23/[address]: Scooby Vega ENTERED: [...] cm possible area of villous tissue identified. Cue Worker sections to include the possible villous tissue are submitted in A1?A3. Clinical history: Missed CPT Codes 68545 -------- -------- Specimen: [id number] Received: 10/26/23 Status: MAIA Newell Num: [id number] Spec Type: Surgical Subm Dr: Scooby Vega Tissues: A Products of Conception - Spontaneous or Missed (POC) Procedures: HE/3, Gross/Micro L4 -------- Patient: Raphael Elizabeth [id number] (Continued) -------- Signed (signature on file) Dante Palacios MD 10/27/23 1511 Normal [facility] Laboratory - Hematology and Cell countson 10-23-2023 Immature granulocytes/100 WBC (Bld) 0.2 % 0.0-0.5 [facility] Leukocytes [#/volume] correc leroy for nucleated erythrocytes in Blood by Automated counon 10-23-2023 WBC corrected for nucl RBC Auto (Bld) [#/Vol] 5.1 10 3/uL 4.0-11.0 [facility] Lymphocytes Auto (Bld) [#/Vo l]on 10-23-2023 Lymphocytes (Bld) [#/Vol] 1.7 10 3/uL 1.2-3.8 [facility] Lymphocytes/100 WBC Auto (Bl d)on 10-23-2023 Lymphocytes/100 WBC (Bld) 32.8 % 20.5-60.0 [facility] MCH Auto (RBC) [Entitic mass ]on 10-23-2023 MCH (RBC) [Entitic mass] 31.1 pg 26.7-34.0 [facility] MCHC Auto (RBC) [Mass/Vol]on 10-23-2023 MCHC (RBC) [Mass/Vol] 32.8 g/dL 29.9-35.2 [facility] MCV Auto (RBC) [Entitic vol] on 10-23-2023 MCV (RBC) [Entitic vol] 95.0 fL 81.0-99.0 [facility] Monocytes Auto (Bld) [#/Vol] on 10-23-2023 Monocytes (Bld) [#/Vol] 0.3 10 3/uL 0.3-0.8 [facility] Monocytes/100 WBC Auto (Bld) on 10-23-2023 Monocytes/100 WBC (Bld) 5.5 % 1.7-12.0 [facility] Neutrophils Auto (Bld) [#/Vo l]on 10-23-2023 Neutrophils (Bld) [#/Vol] 3.0 10 3/uL 1.4-6.5 [facility] Neutrophils/100 WBC Auto (Bl d)on 10-23-2023 Neutrophils/100 WBC (Bld) 59.3 % 43.0-75.0 [facility] No Panel Informationon 10-22 Eosinophils # (Auto) 0.1 10 3/uL 0.0-0.7 [facility] Immature Granulocyte # (Auto) 0.01 10 3/uL 0.00-0.03 [facility] Platelet mean volume Auto (B ld) [Entitic vol]on 10-23-2023 Platelet mean volume (Bld) [Entitic vol] 9.0 fL 9.5-13.5 [facility] Platelets Auto (Bld) [#/Vol] on 10-23-2023 Platelets (Bld) [#/Vol] 182 10 3/uL 150-450 [facility] RBC Auto (Bld) [#/Vol]on RBC (Bld) [#/Vol] 3.79 10 6/uL 4.20-5.40 [facility] No Panel Informationon 10-11 Human Chorionic Gonadotropin, Quant 72851 mIU/mL [facility] Comment on above: 5-50 0.2-1 WNLS60-36 0 1-2 ASNIE002-5,000 2-3 AKCEQ726-60,000 3-4 WEEKS1,000-50,000 4-5 WEEKS10,000-100,000 5-6 WEEKS15,000-200,000 6-8 WEEKS10,000-100,000 2-3 MONTHS No Panel Informationon 10-06 Human Chorionic Gonadotropin, Quant 17170 mIU/mL [facility] Comment on above: 5-50 0.2-1 LSPZ63-37 0 1-2 UBLEO443-0,000 2-3 WLCVE243-41,000 3-4 WEEKS1,000-50,000 4-5 WEEKS10,000-100,000 5-6 WEEKS15,000-200,000 6-8 WEEKS10,000-100,000 2-3 MONTHS No Panel Informationon 10-04 Human Chorionic Gonadotropin, Quant 24100 mIU/mL [facility] Comment on above: 5-50 0.2-1 TGXP93-08 0 1-2 MKHNC059-6,000 2-3 SUMMN047-51,000 3-4 WEEKS1,000-50,000 4-5 WEEKS10,000-100,000 5-6 WEEKS15,000-200,000 6-8 WEEKS10,000-100,000 2-3 MONTHS PAP ACOG PANEL 2: 30 to 65on 03-11-2022 . . Normal [facility] Comment on above: Result Comment: Perf ormed at: WB Performed By: #### [id number] #### [facility] [address] [place] [address] Dr. Danni Jacobs Age Gdln ACOG Testing 30-65 Normal [facility] Comment on above: Performed By: #### [id number] #### [facility] [address] [place] [address] Dr. Danni Jacobs DIAGNOSIS: Comment Normal [facility] Comment on above: Result Comment: NEGA TIVE FOR INTRAEPITHELIAL LESION OR MALIGNANCY. THIS SPECIMEN WAS RESCREENED PART OF OUR ESTIMATOR JEWELRY PROGRAM. Performed at: WB Performed By: #### [id number] #### [facility] [address] [place] [address] Dr. Danni Jacobs HPV Aptima Negative Normal Negative [facility] Comment on above: Result Comment: This nucleic acid amplification test detects fourteen high-risk HPV types (16,18,31,33,35,39,45,51,52,56,58,59,66,68) without differentiation. Performed at: =G Performed By: #### [id number] #### [facility] [address] [place] [address] Dr. Danni Jacobs Methodology: Comment Normal [facility] Comment on above: Result Comment: This liquid based ThinPrep(R) pap test was screened with the use of an image guided system. Performed at: WB Performed By: #### [id number] #### [facility] [address] [address] [address] Danni Jacobs Note: Comment Normal [facility] Comment on above: Result Comment: The Pap smear is a screening test designed to aid in the detection of premalignant and malignant conditions of the uterine cervix. It is not a diagnostic procedure and should not be used as the sole means of detecting cervical cancer. Both false-positive and false-negative reports do occur. . Performed at: WB Performed By: #### [id number] #### [facility] [address] [place] [address] Dr. Danni Jacobs Performed by: Comment Normal [facility] Comment on above: Result Comment: Rocky Hull, Pipe Machine Operator (ASCP) Performed at: WB Performed By: #### [id number] #### [facility] [address] [place] [address] Dr. Danni Jacobs QC reviewed by: Comment Normal [facility] Comment on above: Result Comment: Betzaida Ge, Supervisory Pipe Machine Operator (ASCP) Performed at: WB Performed By: #### [id number] #### [facility] [address] [place] [address] Dr. Danni Jacobs Specimen adequacy: Comment Normal [facility] Comment on above: Result Comment: Sati sfactory for evaluation. Endocervical and/or squamous metaplastic cells (endocervical component) are present. Performed at: WB Performed By: #### [id number] #### [facility] [address] [place] [address] Dr. Danni Jacobs GLUCOSE BLOODon 04-22-2021 Glucose [Mass/Vol] 99 mg/dL Normal 74-106 [facility] Comment on above: Performed By: #### G YOSEPH, LIPID #### [facility] [address] [place] [address] Dr. Danni Jacobs LIPID PROFILEon 04-22-2021 CHOL-HDL RATIO NORM SEE BELOW Normal [facility] Comment on above: Result Comment: 3.3 - 4.4 LOW RISK 4.4 - 7.1 AVERAGE RISK 7.1 - 11.0 MODERATE RISK >11.0 HIGH RISK Performed By: #### G YOSEPH, LIPID #### [facility] [address] [address] [address] Danni Jacobs Cholesterol [Mass/Vol] 157 mg/dL Normal <=200 [facility] Comment on above: Performed By: #### G YOSEPH, LIPID #### [facility] [address] [address] [address] Danni Jacobs Cholesterol in HDL [Mass/Vol] 74 mg/dL Normal [facility] Comment on above: Performed By: #### G YOSEPH, LIPID #### [facility] [address] [address] [address] Danni Jacobs Cholesterol in LDL [Mass/Vol] 71.2 mg/dL Normal [facility] Comment on above: Performed By: #### G YOSEPH, LIPID #### [facility] [address] [address] [address] Danni Jacobs Cholesterol.total/C holesterol in HDL [Mass ratio] 2.1 {ratio} Normal [facility] Comment on above: Performed By: #### G YOSEPH, LIPID #### [facility] [address] [address] [address] Danni Jacobs HDL NORMAL > or = 60 mg/dl - LO W CARDIOVASCULAR RISK <40 mg/dl - HIGH CARDIOVASCULAR RISK Normal [facility] Comment on above: Performed By: #### G YOSEPH, LIPID #### [facility] [address] [address] [address] Danni Jacobs LDL CALC NORMAL SEE BELOW Normal [facility] Comment on above: Result Comment: <100 mg/dl OPTIMAL 100 - 129 mg/dl NEAR OR ABOVE OPTIMAL 130 - 159 mg/dl BORDERLINE HIGH 160 - 189 mg/dl HIGH >190 mg/dl VERY HIGH Performed By: #### G YOSEPH, LIPID #### [facility] [address] [address] [address] Danni Jacobs Triglyceride [Mass/Vol] 59 mg/dL Normal <=150 [facility] Comment on above: Performed By: #### G YOSEPH, LIPID #### [facility] [address] [address] [address] Danni Jacobs VLDL CALC 11.8 mg/dL Normal [facility] Comment on above: Performed By: #### G YOSEPH, LIPID #### [facility] [address] [address] [address] Danni Jacobs Vital Signs Date Time Vital Sign Value Performing Clinician Faci lity 09-20-2024 14:47-0400 Body mass index (BMI) [Ratio] 24.34 kg/m2 Scooby Gary DO Work Phone: [facility] 09-20-2024 14:47-0400 Body weight 70.49 kg Scooby Gary DO Work Phone: [facility] 09-20-2024 14:47-0400 Diastolic blood pressure 80 mm[Hg] Scooby Gary DO Work Phone: [facility] 09-20-2024 14:47-0400 Systolic blood pressure 110 mm[Hg] Scooby Gary DO Work Phone: [facility] 08-24-2024 13:51-0500 Body mass index (BMI) [Ratio] 24.18 kg/m2 Scooby Gary DO Work Phone: [facility] 08-24-2024 13:51-0500 Body weight 70.03 kg Scooby Gary DO Work Phone: [facility] 08-24-2024 13:51-0500 Diastolic blood pressure 68 mm[Hg] Scooby Gary DO Work Phone: [facility] 08-24-2024 13:51-0500 Systolic blood pressure 112 mm[Hg] Scooby Gary DO Work Phone: [facility] 08-18-2024 09:28-0500 Body mass index (BMI) [Ratio] 23.62 kg/m2 Scooby Gary DO Work Phone: [facility] 08-18-2024 09:28-0500 Body weight 68.4 kg Scooby Gary DO Work Phone: [facility] 08-18-2024 09:28-0500 Diastolic blood pressure 72 mm[Hg] Scooby Gary DO Work Phone: [facility] 08-18-2024 09:28-0500 Systolic blood pressure 110 mm[Hg] Scooby Gary DO Work Phone: [facility] 08-01-2024 13:55-0500 Body mass index (BMI) [Ratio] 22.87 kg/m2 Scooby Gary DO Work Phone: [facility] 08-01-2024 13:55-0500 Body weight 66.22 kg Scooby Gary DO Work Phone: [facility] 08-01-2024 13:55-0500 Diastolic blood pressure 74 mm[Hg] Scooby Gary DO Work Phone: [facility] 08-01-2024 13:55-0500 Systolic blood pressure 116 mm[Hg] Scooby Gary DO Work Phone: [facility] 07-18-2024 15:05-0500 Body mass index (BMI) [Ratio] 22.84 kg/m2 Scooby Gary DO Work Phone: [facility] 07-18-2024 15:05-0500 Body weight 66.13 kg Scooby Gary DO Work Phone: [facility] 07-18-2024 15:05-0500 Diastolic blood pressure 70 mm[Hg] Scooby Gary DO Work Phone: [facility] 07-18-2024 15:05-0500 Systolic blood pressure 118 mm[Hg] Scooby Gary DO Work Phone: [facility] 06-30-2024 12:01-0500 Body mass index (BMI) [Ratio] 22.26 kg/m2 Scooby Gary DO Work Phone: [facility] 06-30-2024 12:01-0500 Body weight 64.47 kg Scooby Gary DO Work Phone: [facility] 06-30-2024 12:01-0500 Diastolic blood pressure 70 mm[Hg] Scooby Gary DO Work Phone: [facility] 06-30-2024 12:01-0500 Systolic blood pressure 110 mm[Hg] Scooby Gary DO Work Phone: [facility] 06-02-2024 10:45-0500 Body mass index (BMI) [Ratio] 21.9 kg/m2 Scooby Gary DO Work Phone: [facility] 06-02-2024 10:45-0500 Body weight 63.41 kg Scooby Gary DO Work Phone: [facility] 06-02-2024 10:45-0500 Diastolic blood pressure 72 mm[Hg] Scooby Gary DO Work Phone: [facility] 06-02-2024 10:45-0500 Systolic blood pressure 116 mm[Hg] Scooby Gary DO Work Phone: [facility] 05-02-2024 16:20-0500 Body mass index (BMI) [Ratio] 21.61 kg/m2 Emely COBB Work Phone: [facility] 05-02-2024 16:20-0500 Body weight 62.6 kg Emely COBB Work Phone: [facility] 05-02-2024 16:20-0500 Diastolic blood pressure 68 mm[Hg] Emely COBB Work Phone: [facility] 05-02-2024 16:20-0500 Systolic blood pressure 120 mm[Hg] Emely COBB Work Phone: [facility] 04-29-2024 11:40-0500 Body weight Jen Granados MD Work Phone: [facility] 04-04-2024 14:55-0400 Body mass index (BMI) [Ratio] 21.27 kg/m2 Scooby Gary DO Work Phone: [facility] 04-04-2024 14:55-0400 Body weight 61.6 kg Scooby Gary DO Work Phone: [facility] 04-04-2024 14:55-0400 Diastolic blood pressure 70 mm[Hg] Scooby Gary DO Work Phone: [facility] 04-04-2024 14:55-0400 Systolic blood pressure 116 mm[Hg] Scooby Gary DO Work Phone: [facility] 03-07-2024 10:47-0400 Body mass index (BMI) [Ratio] 20.07 kg/m2 Scooby Gary DO Work Phone: [facility] 03-07-2024 10:47-0400 Body weight 58.12 kg Scooby Gary DO Work Phone: [facility] 03-07-2024 10:47-0400 Diastolic blood pressure 68 mm[Hg] Scooby Gary DO Work Phone: [facility] 03-07-2024 10:47-0400 Systolic blood pressure 114 mm[Hg] Scooby Gary DO Work Phone: [facility] 12-01-2023 16:10-0400 Body height 170.18 cm Scooby Gary Work Phone: [facility] 12-01-2023 16:10-0400 Body mass index (BMI) [Ratio] 19.5 kg/m2 Scooby Gary Work Phone: [facility] 12-01-2023 16:10-0400 Body weight 56.69 kg Scooby Gary Work Phone: [facility] 12-01-2023 16:10-0400 Diastolic blood pressure 78 mm[Hg] Scooby Gary Work Phone: [facility] 12-01-2023 16:10-0400 Systolic blood pressure 112 mm[Hg] Scooby Gary Work Phone: [facility] Encounters Encounter Date Encounter Type Care Provider Facility Start: 09-20-2024 End: 09-20-2024 ambulatory SCOOBY GARY Not Available Start: 09-20-2024 End: 09-20-2024 flow sheet Scooby [...] Start: 08-24-2024 End: 08-24-2024 Bamboo flowsheet Scooby Gayr DO Work Phone: [facility] Start: [...] 06-25-2024 ambulatory Jen Granados MD Work Phone: [facility] Work Phone: Start: 06-25-2024 End: 06-25-2024 Departed Referred Jen Granados MD Work Phone: [facility] Start: 06-25-2024 Non-patient / Non-visit Jen Granados MD Work Phone: [facility] Work Phone: Start: [...] / Non-visit Jen Granados MD Work Phone: [facility] Work Phone: Start: [...] / Non-visit Jen Granados MD Work Phone: [facility] Work Phone: Start: [...] [facility] Start: 02-08-2024 ambulatory [facility] Start: 12-01-2023 End: 12-01-2023 ambulatory Scooby Gary Work Phone: [facility] Work Phone: Start: 12-01-2023 End: 12-01-2023 Patient encounter procedure [facility]ooby Gary [facility] Work Phone: Start: 11-30-2023 Non-patient / Non-visit Scooby Gary Work Phone: [facility] Work Phone: Start: 11-23-2023 Non-patient / Non-visit Scooby Gary Work Phone: [facility] Work Phone: Start: 11-17-2023 Non-patient / Non-visit Scooby Gary Work Phone: [facility] Work Phone: Start: 11-09-2023 Non-patient / Non-visit Scooby Gary Work Phone: [facility] Work Phone: Start: 11-09-2023 End: 11-09-2023 ambulatory EMELY HUNTER Not Available Start: 10-23-2023 End: 10-23-2023 ambulatory Scooby Gary [facility] Work Phone: Start: 10-23-2023 End: 10-23-2023 Departed Referred Scooby Gary Work Phone: [facility] Start: 10-23-2023 Non-patient / Non-visit Scooby Gary Work Phone: [facility] Work Phone: Start: 10-12-2023 Non-patient / Non-visit Scooby Gary Work Phone: [facility] Work Phone: Start: 10-07-2023 Non-patient / Non-visit Scooby Gary Work Phone: [facility] Work Phone: Start: 10-05-2023 Non-patient / Non-visit Scooby Gary Work Phone: [facility] Work Phone: Start: 03-03-2022 End: 03-03-[address] SCOOBY VEGA Facility:[facility] Start: 04-28-2021 Encounter for genera l adult medical examination without abnormal findings DR DALTON LOGAN [facility] Start: 04-22-2021 End: 04-23-2021 ambulatory [...] Routine [facility] [address] [place] [address] Scooby Vega, DO [address] [place] [address] [facility] Start: 09-12-2024 End: 09-12-2024 Patient encounter procedure 09/12/2024 9:00 AM EDT Routine [facility] [address] [facility] [place] [address] Scooby Vega, [facility] [place] [address] [facility] Start: 09-05-2024 End: 09-05-2024 Patient encounter procedure 09/05/2024 1:30 PM EDT Routine [facility] [address] [facility] [place] [address] Scooby Vega, [facility] [place] [address] [facility] Start: 08-24-2024 End: 08-24-2025 CULTURE, GROUP B STREP WITH SUSCEPTIBLITY CULTURE, GROUP B STREP WITH SUSCEPTIBLITY Lab Routine Third trimester Expected: 08/24/2024, Expires: 08/24/2025 [facility] Work Phone: Comment on above: Expected: 08/24/2024 , Expires: 08/24/2025 Start: 08-24-2024 End: 08-24-2024 Patient encounter procedure 08/24/2024 1:20 PM EST Routine [facility] [address] [facility] [place] [id number] Scooby Vega, [address] [place] [address] [facility] Start: 08-18-2024 End: 08-18-2025 US for US OB follow up transabdominal approach Imaging Routine Multigravida of advanced maternal age in third trimester Expected: 08/18/2024, Expires: 08/18/2025 [facility] Work Phone: Comment on above: Expected: 08/18/2024 , Expires: 08/18/2025 Start: 08-18-2024 End: 08-18-2024 Patient encounter procedure 08/18/2024 9:20 AM EST Routine [facility] [address] [place] [address] [place] [address] Scooby Vega, DO [address] [place] [address] [facility] Start: 08-01-2024 End: 08-01-2024 Patient encounter procedure 08/01/2024 1:20 PM EST Routine [facility] [address] [facility] [place] [address] Scooby Vega, DO [address] [place] [address] [facility] Start: 07-18-2024 End: 07-18-2024 Patient encounter procedure 07/18/2024 2:30 PM EST Routine [facility] [address] [place] [address] Scooby Vega, DO [address] [place] [address] [facility] Start: 07-18-2024 End: 07-18-2025 US biophysical profile w non stress test US biophysical profile w non stress test Imaging Routine 30 weeks gestation of Third trimester Expected: 07/18/2024 (Approximate), Expires: 07/18/2025 [facility] Work Phone: Comment on above: [...] of control unspecified Expected: 06/30/2024, Expires: 06/30/2025 [facility] Work Phone: Comment on above: Expected: 06/30/2024 , Expires: 06/30/2025 Start: 06-30-2024 End: 06-30-2024 Patient encounter procedure 06/30/2024 11:50 AM EST Routine [facility] [address] [facility] [place] [address] Scooby Vega, [address] [place] [address] [address] [place], [place] [id number] [facility] Start: 06-25-2024 Urine culture [facility] Start: 06-25-2024 Bacteria identified in Urine by Culture Urine Culture [facility] Start: 06-02-2024 End: 06-02-2025 CBC panel - Blood by Automated count CBC Lab Routine Diabetes mellitus screening Expected: 06/02/2024 (Approximate), Expires: 06/02/2025 [facility] Work Phone: Comment on above: Expected: 06/02/2024 (Approximate), Expires: 06/02/2025 Start: 06-02-2024 End: 06-02-2025 Measurement of glucose 1 hour after glucose challenge for glucose tolerance test Glucose tolerance, 1 hour Lab Routine Diabetes mellitus screening Expected: 06/02/2024 (Approximate), Expires: 06/02/2025 [facility] Comment on above: Expected: 06/02/2024 (Approximate), Expires: 06/02/2025 Start: 06-02-2024 End: 06-02-2024 Patient encounter procedure 06/02/2024 10:10 AM EST Routine [facility] [address] [facility] [place] [address] Scooby Vega, DO [address] [facility] [place] [address] [facility] Start: 05-02-2024 End: 05-02-2024 Patient encounter procedure 05/02/2024 3:30 PM EST Routine [facility] [address] [facility] [place] [id number] Emely Hunter PA [address] [facility] [place] [address] [facility] Start: 05-02-2024 End: 10-30-2024 [...] [address] [facility] [place] [address] Scooby Vega, DO [address] [facility] [place] [address] [facility] Start: 04-04-2024 End: 04-04-2024 [...] [address] [place] [address] Gretchen Moreno, PT [facility] Start: 03-23-2024 End: 03-23-2024 ambulatory 03/23/2024 1:00 PM EDT Treatment [facility] [address] [place] [address] Gretchen Moreno, PT [facility] Start: 03-18-2024 End: 03-18-2024 ambulatory 03/18/2024 1:30 PM EDT Treatment [facility] [address] [place] [address] Gretchen Moreno, PT [facility] Start: 03-11-2024 End: 03-11-2024 ambulatory 03/11/2024 1:30 PM EDT Treatment [facility] [address] [place] [address] Gretchen Moreno, PT [facility] Start: 03-07-2024 End: 03-07-2024 Patient encounter procedure 03/07/2024 10:10 AM EDT Routine [facility] [address] [place] [address] Scooby Vega, DO [address] [facility] [place] [address] [facility] Start: 03-03-2024 End: 03-03-2024 ambulatory 03/03/2024 10:30 AM EDT Treatment [facility] [address] [place] [address] Gretchen Moreno, PT [facility] Start: 02-26-2024 End: 02-26-2024 ambulatory 02/26/2024 1:30 PM EDT Treatment [facility] [address] [place] [address] Gretchen Moreno, PT Arrived [facility] Comment on above: Arrived Start: 02-25-2024 End: 02-25-2024 ambulatory 02/25/2024 10:30 AM EDT Treatment [facility] [address] [place] [address] Gretchen Moreno, PT [facility] Start: 02-17-2024 End: 02-17-2024 ambulatory 02/17/2024 12:00 PM EDT Treatment [facility] [address] [place] [address] Gretchen Moreno, PT [facility] Start: 02-12-2024 End: 02-11-2025 ABO/Rh ABO/Rh Lab Routine Missed menses Expected: 02/12/2024 (Approximate), Expires: 02/11/2025 [facility] Comment on above: Expected: 02/12/2024 [...] Missed menses Expected: 02/12/2024 (Approximate), Expires: 02/11/2025 [facility] Comment on above: Expected: 02/12/2024 (Approximate), Expires: 02/11/2025 Start: 02-12-2024 End: 02-12-2024 ambulatory 02/12/2024 10:30 AM EDT Initial [facility] [address] [facility] [place] [address] [facility] Start: 02-12-2024 End: 02-12-2024 Professional / ancillary services management 02/12/2024 10:00 AM EDT Ancillary Procedure [facility] [address] [facility] [place] [address] [facility] Start: 02-10-2024 End: 02-10-2024 ambulatory 02/10/2024 5:00 PM EDT Evaluation [facility] [address] [place] [address] Gretchen Moreno, PT Arrived [facility] Comment on above: Arrived Bacteria identified in Urine by Culture Urine culture Microbiology Routine Missed menses Ordered: 02/12/2024 [facility] Comment on above: Ordered: 02/12/2024 CBC W Auto Different ial panel - Blood CBC and differential Lab Routine Missed menses Ordered: 02/12/2024 [facility] Comment on above: Ordered: 02/12/2024 CHLAMYDIA TRACHOMATI S (GENITO/STI) CHLAMYDIA TRACHOMATIS (GENITO/STI) Lab Routine STD exposure Ordered: 05/02/2024 [facility] Comment on above: Ordered: 05/02/2024 Cytology Cervical or vaginal smear or scraping study Pap Smear Pathology and Cytology Routine Well woman exam with routine gynecological exam Ordered: 05/02/2024 [facility] Comment on above: Ordered: 05/02/2024 Hemoglobin A1c/Hemoglobin.total in Blood Hemoglobin A1c Lab Routine Missed menses Ordered: 02/12/2024 [facility] Comment on above: Ordered: 02/12/2024 Hepatitis B virus surface Ag [Presence] in Serum or Plasma by Immunoassay Hepatitis B surface antigen Lab Routine Missed menses Ordered: 02/12/2024 [facility] Comment on above: Ordered: 02/12/2024 Hepatitis C virus Ab [Presence] in Serum or Plasma by Immunoassay Hepatitis C antibody Lab Routine Missed menses Ordered: 02/12/2024 [facility] Comment on above: Ordered: 02/12/2024 HIV-1/HIV-2 antigen/antibody combination immunoassay HIV-1 and HIV-2 antibodies Lab Routine Missed menses Ordered: 02/12/2024 [facility] Comment on above: Ordered: 02/12/2024 Human papilloma viru s DNA [Presence] in Unspecified specimen by Probe with amplification HPV DNA probe, amplified Microbiology Routine Well woman exam with routine gynecological exam Ordered: 05/02/2024 [facility] Comment on above: Ordered: 05/02/2024 Neisseria gonorrhoea e DNA [Presence] in Unspecified specimen by JUAN ANTONIO with probe detection Neisseria gonorrhea DNA probe, direct Lab Routine STD exposure Ordered: 05/02/2024 [facility] Comment on above: Ordered: 05/02/2024 Reagin Ab [Presence] in Serum by RPR RPR Lab Routine Missed menses Ordered: 02/12/2024 [facility] Comment on above: Ordered: 02/12/2024 Rubella antibody, IgG Rubella an tibody, IgG Lab Routine Missed menses Ordered: 02/12/2024 [facility] Comment on above: Ordered: 02/12/2024 SURESWAB(R) ADVANCED VAGINITIS PLUS, TMA SURESWAB(R) ADVANCED VAGINITIS PLUS, TMA Pathology and Cytology Routine Vaginal discharge Ordered: 05/02/2024 [facility] Work Phone: Comment on above: Ordered: 05/02/2024 XR Hip - left 2 Views [facility] Payers Date Payer Category Payer Private Health Insurance ESTELA Decker [id number] 2022 Unknown NILAM Decker [place] [id number] 2022-Present [phone] [address] [place] [address] [id number] 1987 Unknown [id number] 1987 Unknown [id number] .593 1987 Unknown [id number] [id number] .1285 1987 Unknown [id number] [id number] .1285 1987 Unknown [id number] [id number] .1285 1987 Unknown [id number] [id number] .1258 1987 Unknown [id number] [id number] .1258 1987 Unknown [id number] [id number] .1258 1987 Unknown [id number] [id number] .9 1987 Unknown [id number] 2.16840.1.859436.3.579.2 .9 1987 Unknown [id number] [id number] .1259 1987 Unknown [id number] 2.16.840.1.762955.3.579.2 .1258 1987 Unknown [id number] 2.16.840.1.099723.3.579.2 .1258 1987 Unknown [id number] 2.16.840.1.519360.3.579.2 .9 1987 Unknown [id number] 2.16.840.1.239960.3.579.2 .9 1987 Unknown [id number] 2.16.840.1.868699.3.579.2 .1258 1987 Unknown [id number] 2.16.840.1.314106.3.579.2 .1258 1987 Unknown [id number] 2.16.840.1.759632.3.579.2 .1258 1987 Unknown [id number] 2.16.840.1.472790.3.579.2 .1258 1987 Unknown [id number] 2.16.840.1.031118.3.579.2 .1258 1987 Unknown [id number] 2.16.840.1.395814.3.579.2 .1258 1987 Unknown [id number] 2.16.840.1.913873.3.579.2 .1258 1987 Unknown [id number] 2.16.840.1.752733.3.579.2 .1258 1987 Unknown [id number] 2.16.840.1.117324.3.579.2 .1258 1987 Unknown [id number] 2.16.840.1.437944.3.579.2 .1258 1987 Unknown [id number] 2.16.840.1.436216.3.579.2 .1258 1987 Unknown [id number] 2.16.840.1.963256.3.579.2 .9 1959 Unknown [id number] Social History Date Type Detail Facility Tobacco smoking stat [facility] Unknown if ever smoked [facility] Work Phone: Start: 1985 Sex Assigned At Female F [facility] Start: 02-26-2023 [facility] Start: 11-09-2023 History of Social function [facility] Start: 11-09-2023 Tobacco use panel [facility] Start: 01-01-2024 [facility] Start: 1985 Sex assigned at Not on file [facility] smoked [facility] Work Phone: Start: 06-27-2024 Sex Female (finding) [facility] Medical Equipment Procedure Code Equipment Code Equipment Origin al Text Equipment Identifier Dates 1 strip by In Vi tro route Daily Use in the morning prior to breakfast, 1 hour after each meal for a total of 4times daily. [id number] Start: 06-02-2024 End: 07-02-2024 1 each by In Vit ro route Daily Use to check FSBS four times daily [id number] Start: 06-02-2024 End: 07-02-2024 Goals Date Patient Goal Desired Activity /State Personal health goal Clinical Notes 02-10-2024 to 09-20-2024 Belle Villanueva [employer] - 09/20/2024 2:20 PM Marisa Villanueva [facility] - 08/24/2024 1:20 PM ESTSjada Loera, [facility] - 08/18/2024 9:20 AM ESTSusaeze Loera, [facility] - 08/01/2024 1:20 PM EST Note [...] nursing note reviewed. Exam conducted with a net maker present. Vitals: Estimated body mass index is [...] induced on 09/27/24 pt to present to FB at 2300 on 09/26/24 pit at 0100 go up 2 every hour Orders Placed This Encounter Procedures POCT urinalysis dipstick manually resulted Follow Up: Patient is to return to office in 1 week for routine OB appointment. Documented by Belle Villanueva LPN on behalf of: Scooby Vega DO documented in this encounter [facility] 08-24-2024 History of Present illness Narrative Reason [...] nursing note reviewed. Exam conducted with a net maker present. Vitals: Estimated body mass index is [...] Scooby Vega DO documented in this encounter [facility] 08-18-2024 History of Present illness Narrative [...] nursing note reviewed. Exam conducted with a net maker present. Vitals: Estimated body mass index is [...] Scooby Vega DO documented in this encounter [facility] 08-01-2024 History of Present illness Narrative [...] 81 mg, Daily Blood Glucose Monitoring Suppl (D-Appetizer Mobile Glucometer) w/Device kit 1 kit, Does not [...] nursing note reviewed. Exam conducted with a net maker present. Vitals: Estimated body mass index is [...] Scooby Vega DO documented in this encounter [facility] 07-18-2024 History of Present illness Narrative [...] nursing note reviewed. Exam conducted with a net maker present. Vitals: Estimated body mass index is [...] of:Emely Hunter PA-C documented in this encounter [facility] 06-30-2024 History of Present illness Narrative [...] 81 mg, Daily Blood Glucose Monitoring Suppl (Zimplistic Glucometer) w/Device kit 1 kit, Does not [...] Scooby Vega DO documented in this encounter [facility] 06-02-2024 History of Present illness Narrative [...] nursing note reviewed. Exam conducted with a net maker present. Vitals: Estimated body mass index is [...] Scooby Vega DO documented in this encounter [facility] 05-02-2024 History of Present illness Narrative [...] nursing note reviewed. Exam conducted with a net maker present. Vitals: Estimated body mass index is [...] obtained without difficulty and patient was given Critical access hospital order to have obtained. Orders Placed This [...] of: JORDYN Fonseca documented in this encounter [facility] 04-04-2024 History of Present illness Narrative [...] nursing note reviewed. Exam conducted with a net maker present. Vitals: Estimated body mass index is [...] Aspirin. Discussed again in regards to seeing [facility] & referral will be completed. Patient to have NST/BPP starting at 32 weeks gestation. Patient will have Anatomy Scan done at [facility]. Patient is Rh Negative and will [...] Scooby Vega DO documented in this encounter [facility] 04-01-2024 History of Present illness Narrative [...] and it pops a lot randomly. Precautions: [place] Subjective: Pt states overall, ROM has improved. [...] sign below. Date: documented in this encounter [facility] 03-23-2024 History of Present illness Narrative [...] and it pops a lot randomly. Precautions: [place] Subjective: Pt states range of motion of [...] sign below. Date: documented in this encounter [facility] 03-18-2024 History of Present illness Narrative [...] and it pops a lot randomly. Precautions: [place] Subjective: Pt states she feels like her [...] to be instructed in home exercise program. Hotel Service Supervisor Goals: To be met in 10 weeks [...] sign below. Date: documented in this encounter [facility] 03-11-2024 History of Present illness Narrative [...] and it pops a lot randomly. Precautions: [place] Subjective: Pt states overall she believes hip [...] to be instructed in home exercise program. Hotel Service Supervisor Goals: To be met in 10 weeks [...] sign below. Date: documented in this encounter [facility] 03-07-2024 History of Present illness Narrative [...] nursing note reviewed. Exam conducted with a net maker present. Vitals: Estimated body mass index is [...] or undercooked meat, and stay away from [facility]. Patient has been consulted regarding any further do's and don'ts of . Patient voiced understanding and all questions and concerns were answered. Follow Up: Patient is to return in 4 weeks for routine OB appointment. Documented by Kalie Loera LPN on behalf of: Scooby Vega DO documented in this encounter [facility] 03-03-2024 History of Present illness Narrative [...] and it pops a lot randomly. Precautions: [place] Subjective: Pt states she has been doing [...] sign below. Date: documented in this encounter [facility] 02-26-2024 History of Present illness Narrative [...] and it pops a lot randomly. Precautions: [place] Subjective: Pt states she was able to [...] to be instructed in home exercise program. Hotel Service Supervisor Goals: To be met in 10 weeks [...] sign below. Date: documented in this encounter [facility] 02-17-2024 History of Present illness Narrative [...] and it pops a lot randomly. Precautions: [place] Subjective: Pt states she has not done [...] sign below. Date: documented in this encounter [facility] 02-12-2024 History of Present illness Narrative [...] or undercooked meat, and stay away from [facility]. Patient has also been advised to not [...] Estee Cobb LPN documented in this encounter [facility] 02-10-2024 History of Present illness Narrative [...] and it pops a lot randomly. Precautions: [place] Subjective: left hip ant and lateral Pain: [...] in this encounter [facility] Healthcare Evaluation note No assessment inform ation available [facility] Work Phone: Evaluation note Diagnosis Onset Date Left hip pain acute [facility] Work Phone: Evaluation note* Diagnosis Pain [...] CREATED AUTHOR AUTHOR'S ORGANIZ ATION 07/03/2024 [facility] DATE CREATED AUTHOR AUTHOR'S ORGANIZ ATION 09/21/2024 [facility] EPIC Care Teams [...] December 01, 2023 End: December 01, 2023 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 Start Date End Date Jen Granados MD [address] [place] [facility] [place] [address] PCP - General Family Medicine 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 Start Date End Date Jen Granados MD [address] [place] [facility] [place] [address] PCP - General Family Medicine 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 Start Date End Date Jen Granados MD [address] [place] [facility] [place] [address] PCP - General Family Medicine 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 Start Date End Date Jen Granados MD [address] [place] [facility] [place] [address] PCP - General Family Medicine 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 Start Date End Date Jen Granados MD [address] [place] [facility] [place] [address] PCP - General Family Medicine 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 Start Date End Date Jen Granados MD [address] [place] [facility] [place] [address] PCP - General Family Medicine 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 Start Date End Date Jen Granados MD [address] [place] [facility] [place] [address] PCP - General Family Medicine 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 Start Date End Date Jen Granados MD [address] [facility] [place] [address] PCP - General Family Medicine 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 Start Date End Date Jen Granados MD [address] [facility] [place] [address] PCP - General Family Medicine 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 Start Date End Date Jen Granados MD [address] [facility] [place] [address] PCP - General Family Medicine 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 Start Date End Date Jen Grnaados MD [address] [facility] [place] [address] PCP - General Family Medicine 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 Start Date End Date Jen Granados MD [address] [facility] [place] [address] PCP - General Family Medicine 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 Start Date End Date Jen Granados MD [address] [facility] [place] [address] PCP - General Family Medicine 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 Start Date End Date Jen Granados MD [address] [facility] [place] [address] PCP - General Family Medicine 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 Start Date End Date Jen Granados MD [address] [facility] [place] [address] PCP - General Family Medicine 03/10/23 Team [...] June 25, 2024 End: June 25, 2024 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 Start Date End Date Jen Granados MD [address] [place] [address] PCP - General Family Medicine 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 Start Date End Date Jen Granados MD [address] [place] [address] PCP - General Family Medicine 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 Start Date End Date Jen Granados MD [address] [place] [facility] [place] [address] PCP - General Family Medicine 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 Start Date End Date Jen Granados MD [address] [place] [address] PCP - General Family Medicine 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 Start Date End Date Jen Granados MD [address] [place] [facility] [place] [address] PCP - General Family Medicine 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 Start Date End Date Jen Granados MD [address] [place] [address] PCP - General Family Medicine 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 [employer] [facility]. provides no warranty or guarantee of the accuracy or completeness of information in this document.
[2024-09-23 19:36] VITALS: BP 125/76; PULSE 77
== END 2024-09-23 20:00 | disposition home or self-care (01) ==
LOC: FBCO 19:00 → FBC 19:02
PROVIDERS: PCP Family Medicine; Visit Provider Obstetrics & Gynecology
DX: O24.419 Gestational diabetes mellitus in pregnancy, unspecified control (principal); Z3A.40 40 weeks gestation of pregnancy
CPT/HCPCS: 76818

== ENCOUNTER 2024-09-26 22:55 | Inpatient (IN) | payer OTHER, SELFPAY ==
--- OUTSIDE RECORDS SUMMARY | 2024-09-26 23:01 | XMS_ITS | CCD ---
Author Organization [facility] Care Team Providers Care Infectious Waste Technician Name Role Phone DOREEN, DR HOFFMAN Attending [...] Attending Unavailable Jen Granados Primary Care Unavailable GaryLinh khany Admitting Unavailable Gary, Scooby Attending Unavailable GARY, [...] Translations: [AMOXICILLIN] Drug Allergy 3 GI intolerance [facility] (3 sources) 12 Hour Decongestant Allergy to substance 3 Hives [facility] Medications Current Medications Medication Drug Class(es) [...] 02/12/2024 Discontinued (Other) omega-3 acid ethyl esters (fpc) 1000 mg oral capsule (12 sources) take 1 capsule by mouth in [...] Active MV-Min-Fe Fum-FA-DH A ( 1 PO) (12 sources) MV-Min- Fe Fum-FA-DHA ( 1 PO) [...] of ] 07-18-2024 Episodic Residual codes; unclassified (19 sources) Gestation period, 32 weeks; Translations: [32 weeks gestation of ] Onset: 08-01-2024 08-01-2024 Episodic Residual codes; unclassified (14 sources) Gestation period, 34 weeks; Translations: [34 [...] [facility] Facility OB BPP W NON-STRESS on 09-23-2024 [place] [address] Ultrasound Report Signed Patient: RAPHAEL ELIZABETH MR#: [id number] : 1985 Acct:[id number] Age/Sex: 38 / F ADM Date: 09/23/24 Loc: FBCO Attending Dr: Scooby Vega D.O. Ordering Physician: Scooby Vega D.O. Date of Service: 09/23/24 Procedure(s): US OB BPP w non-stress Accession Number(s): [id number] cc: Jen Granados M.D.; Scooby Vega D.O. The [place] [address] Patient Name: RAPHAEL ELIZABETH MRN: [facility]:[id number] date: 1985 Sex: F Assigned Patient Location: [facility] Current Patient Location: Accession/Order Number: [id number] Exam Date: 09/23/2024 23:49 Report Date: 09/23/2024 23:50 At the request of: SCOOBY VEGA DO Procedure: US OB BPP w non-stress Ultrasound biophysical profile HISTORY: Gestational diabetes There is adequate breathing movement, gross body movement, tone and amniotic fluid volume for total score of 8 out of 8. Amniotic fluid index is 10.6 cm. The heart rate is 127 bpm. US/US OB BPP w non-stress IMPRESSION: Adequate ultrasound biophysical profile. Impression dictated by: Jae Fleming M.D.09/23/2024 11:50 PM Dictation Location: [place] [address] Electronically authenticated by: [id number] Y Date: 09/23/2024 23:50 Dictated By: Jae Fleming D.O. Signed By: 09/23/242352 DD/ 49 TD/TT: Automotive Accessory Installer: [facility] RadiologyCorneliusogdora guillen MD - 09/23/2024 [place] [address] Ultrasound Report Signed Patient: RAPHAEL ELIZABETH MR#: [id number] : 1985 Acct:[id number] Age/Sex: 38 / F ADM Date: 09/23/24 Loc: FBCO Attending Dr: Scooby Vega D.O. Ordering Physician: Scooby Vega D.O. Date of Service: 09/23/24 Procedure(s): US OB BPP w non-stress Accession Number(s): [id number] cc: Jen Granados M.D.; Scooby Vega D.O. [place] [address] Patient Name: RAPHAEL ELIZABETH MRN: [facility]:[id number] date: 1985 Sex: F Assigned Patient Location: [facility] Current Patient Location: Accession/Order Number: [id number] Exam Date: 09/23/2024 23:49 Report Date: 09/23/2024 23:50 At the request of: SCOOBY VEGA DO Procedure: US OB BPP w non-stress Ultrasound biophysical profile HISTORY: Gestational diabetes There is adequate breathing movement, gross body movement, tone and amniotic fluid volume for total score of 8 out of 8. Amniotic fluid index is 10.6 cm. The heart rate is 127 bpm. US/US OB BPP w non-stress IMPRESSION: Adequate ultrasound biophysical profile. Impression dictated by: Jae Fleming M.D.09/23/2024 11:50 PM Dictation Location: [place] [address] Electronically authenticated by: [id number] Y Date: 09/23/2024 23:50 Dictated By: Jae Fleming D.O. Signed By: 09/23/242352 DD/ 49 TD/TT: Automotive Accessory Installer: [facility] Radiology Study observation (narrative) [facility] US OB BPP W NON-STRESS Ordered By: Radiologist Radiology on 09-23-2024 [facility] Work Phone: Urinalysis macro (dipstick) panel (U)Ordered By: Marichuy Matias on 09-20-2024 Bilirubin, UA Negative Negative - 4(70) +++ mg/dL [facility] Blood, UA Negative Negative - 50 Ulises/mcL [facility] Clarity, UA Clear [facility] Color, UA Yellow [facility] Glucose, UA Negative Negative - 2000(110) ++++ mg/dL [facility] Interpretation and review of laboratory results Normal [facility] Ketones, UA Negative Negative - 160(16) ++++ mg/dL [facility] Leukocytes, UA Trace Negative - 500+++ Clair/mcL [facility] Nitrite, UA Negative Negative - Positive [facility] pH, UA 7 5 - 9 [facility] Protein, UA Negative Negative - 1999(20) ++++ mg/dL [facility] Spec Grav, UA 1.015 1 - 1.03 [facility] Urobilinogen, UA 0.2 0.2 - 12 mg/dL [facility] US OB BPP W NON-STRESS on 09-19-2024 [place] [address] Ultrasound Report Signed Patient: RAPHAEL ELIZABETH MR#: [id number] : 1985 Acct:[id number] Age/Sex: 38 / F ADM Date: 09/09/24 Loc: US Attending Dr: Scooby Vega D.O. Ordering Physician: Scooby Vega D.O. Date of Service: 09/09/24 Procedure(s): US OB BPP w non-stress Accession Number(s): [id number] cc: Jen Granados M.D.; Scooby Vega D.O. [place] [address] Patient Name: RAPHAEL ELIZABETH MRN: [facility]:[id number] date: 1985 Sex: F Assigned Patient Location: [facility] Current Patient Location: Accession/Order Number: [id number] Exam Date: 09/09/2024 19:52 Report Date: 09/09/2024 [...] Jama Lopez M.D.09/09/2024 7:58 PM Dictation Location: [facility]29 Electronically authenticated by: [id number] Y Date: 09/09/2024 19:58 Dictated By: Jama Lopez M.D. Signed By: 09/19/24 1318 DD/ 57 TD/TT: Automotive Accessory Installer: [facility] Radiology Radiologdora guillen MD - 09/19/2024 [place] [address] Ultrasound Report Signed Patient: RAPHAEL ELIZABETH MR#: [id number] : 1985 Acct:[id number] Age/Sex: 38 / F ADM Date: 09/09/24 Loc: US Attending Dr: Scooby Vega D.O. Ordering Physician: Scooby Vega D.O. Date of Service: 09/09/24 Procedure(s): US OB BPP w non-stress Accession Number(s): [id number] cc: eJn Granados M.D.; Scooby Vega D.O. The [place] [id number] Patient Name: RAPHAEL ELIZABETH MRN: [facility]:[id number] date: 1985 Sex: F Assigned Patient Location: [facility] Current Patient Location: Accession/Order Number: [id number] Exam Date: 09/09/2024 19:52 Report Date: 09/09/2024 [...] Jama Lopez M.D.09/09/2024 7:58 PM Dictation Location: [facility] Electronically authenticated by: [id number] Y Date: 09/09/2024 19:58 Dictated By: Jama Lopez M.D. Signed By: 09/19/241317 DD/ 57 TD/TT: Automotive Accessory Installer: [facility] US OB BPP W NON-STRESS Ordered By: Radiologist Radiology on 09-19-2024 [facility] Work Phone: US OB BPP W NON-STRESS on 09-16-2024 [place] [address] Ultrasound Report Signed Patient: RAPHAEL ELIZABETH MR#: [id number] : 1985 Acct:[id number] Age/Sex: 38 / F ADM Date: 09/16/24 Loc: US Attending Dr: Scooby Vega D.O. Ordering Physician: Scooby Vega D.O. Date of Service: 09/16/24 Procedure(s): US OB BPP w non-stress Accession Number(s): [id number] cc: Jen Granados M.D.; Scooby Vega D.O. [place] [address] Patient Name: RAPHAEL ELIZABETH MRN: [facility]:[id number] date: 1985 Sex: F Assigned Patient Location: [facility] Current Patient Location: Accession/Order Number: [id number] Exam Date: 09/16/2024 20:37 Report Date: 09/16/2024 20:38 At the request of: SCOOBY VEGA DO Procedure: US OB BPP w non-stress Biophysical profile. Reason for exam: GBM. COMPARISON: Biophysical profile 09/09/2024 TECHNIQUE: Transabdominal imaging of the gravid uterus was obtained. FINDINGS: Signaling Design Engineer reports the BPP is 8 out of 8. SIDDHARTHA is normal 12 cm. heart rate 124bpm. US/US OB BPP w non-stress IMPRESSION: BPP 8 out of 8. Impression dictated by: Lucas Martin Jr. Mirian09/16/2024 8:38 PM Dictation Location: [facility] Electronically authenticated by: [id number] Y Date: 09/16/2024 20:38 Dictated By: Lucas Martin M.D. Signed By: 09/16/242040 DD/ 37 TD/TT: Automotive Accessory Installer: [facility] Radiology Radiologdora guillen MD - 09/16/2024 [place] [address] Ultrasound Report Signed Patient: RAPHAEL ELIZABETH MR#: [id number] : 1985 Acct:[id number] Age/Sex: 38 / F ADM Date: 09/16/24 Loc: US Attending Dr: Scooby Vega D.O. Ordering Physician: Scooby Vega D.O. Date of Service: 09/16/24 Procedure(s): US OB BPP w non-stress Accession Number(s): [id number] cc: Jen Granados M.D.; Scooby Vega D.O. The [place] [id number] Patient Name: RAPHAEL ELIZABETH MRN: [facility]:[id number] date: 1985 Sex: F Assigned Patient Location: [facility] Current Patient Location: Accession/Order Number: [id number] Exam Date: 09/16/2024 20:37 Report Date: 09/16/2024 20:38 At the request of: SCOOBY VEGA DO Procedure: US OB BPP w non-stress Biophysical profile. Reason for exam: GBM. COMPARISON: Biophysical profile 09/09/2024 TECHNIQUE: Transabdominal imaging of the gravid uterus was obtained. FINDINGS: Signaling Design Engineer reports the BPP is 8 out of 8. SIDDHARTHA is normal 12 cm. heart rate 124bpm. US/US OB BPP w non-stress IMPRESSION: BPP 8 out of 8. Impression dictated by: Lucas Martin Jr., D.O.09/16/2024 8:38 PM Dictation Location: [place] [address] Electronically authenticated by: [id number] Y Date: 09/16/2024 20:38 Dictated By: Lucas Martin M.D. Signed By: 09/16/242040 DD/ 37 TD/TT: Automotive Accessory Installer: [facility] Radiology Study observation (narrative) [facility] US OB BPP W NON-STRESS Ordered By: Radiologist Radiology on 09-16-2024 [facility] Work Phone: US OB BPP W NON-STRESS on 09-09-2024 Radiology Study observation (narrative) [facility] Urinalysis macro (dipstick) panel (U)on 08-24-2024 Bilirubin, UA Negative Negative - 4(70) +++ mg/dL [facility] Blood, UA Negative Negative - 50 Ulises/mcL [facility] Clarity, UA Clear [facility] Color, UA Yellow [facility] Glucose, UA Negative Negative - 2000(110) ++++ mg/dL [facility] Interpretation and review of laboratory results Abnormal [facility] Ketones, UA Negative Negative - 160(16) ++++ mg/dL [facility] Leukocytes, UA Trace Negative - 500+++ Clair/mcL [facility] Nitrite, UA Negative Negative - Positive [facility] pH, UA 7 5 - 9 [facility] Protein, UA Negative Negative - 2000(20) ++++ mg/dL [facility] Spec Grav, UA 1.015 1 - 1.03 [facility] Urobilinogen, UA 0.2 0.2 - 12 mg/dL [facility] US OB BPP W NON-STRESS on 08-20-2024 [place] [address] Ultrasound Report Signed Patient: RAPHAEL ELIZABETH MR#: [id number] : 1985 Acct:[id number] Age/Sex: 38 / F ADM Date: 08/19/24 Loc: US Attending Dr: Scooby Vega D.O. Ordering Physician: Scooby Vega D.O. Date of Service: 08/19/24 Procedure(s): US OB BPP w non-stress Accession Number(s): [id number] cc: Jen Granados M.D.; Scooby Vega D.O. The [place] [id number] Patient Name: RAPHAEL ELIZABETH MRN: [facility]:[id number] date: 1985 Sex: F Assigned Patient Location: [facility] Current Patient Location: Accession/Order Number: [id number] Exam Date: 08/20/2024 08:58 Report Date: 08/20/2024 [...] M.D.08/20/2024 9:03 AM Dictation Location: [place] [address] Electronically authenticated by: [id number] Y Date: 08/20/2024 09:03 Dictated By: Chan Hudson M.D. Signed By: 08/20/24904 DD/ 2 TD/TT: Automotive Accessory Installer: [facility] Radiology, Radiologi MD wilmer - 08/20/2024 [place] [address] Ultrasound Report Signed Patient: RAPHAEL ELIZABETH MR#: [id number] : 1985 Acct:[id number] Age/Sex: 38 / F ADM Date: 08/19/24 Loc: US Attending Dr: Scooby Vega D.O. Ordering Physician: Scooby Vega D.O. Date of Service: 08/19/24 Procedure(s): US OB BPP w non-stress Accession Number(s): [id number] cc: Jen Granados M.D.; Scooby eVga D.O. [place] [address] Patient Name: RAPHAEL ELIZABETH MRN: [facility]:[id number] date: 1985 Sex: F Assigned Patient Location: [facility] Current Patient Location: Accession/Order Number: [id number] Exam Date: 08/20/2024 08:58 Report Date: 08/20/2024 [...] M.D.08/20/2024 9:03 AM Dictation Location: [place] [address] Electronically authenticated by: [id number] Y Date: 08/20/2024 09:03 Dictated By: Chan Hudson M.D. Signed By: 08/20/24904 DD/ 2 TD/TT: Automotive Accessory Installer: [facility] Radiology Study observation (narrative) [facility] US OB BPP W NON-STRESS Ordered By: Radiologist Radiology on 08-20-2024 [facility] Work Phone: Urinalysis macro (dipstick) panel (U)on 08-18-2024 Bilirubin, UA Negative Negative - 4(70) +++ mg/dL [facility] Blood, UA Negative Negative - 50 Ulises/mcL [facility] Clarity, UA Clear [facility] Color, UA Yellow [facility] Glucose, UA Negative Negative - 1999(110) ++++ mg/dL [facility] Interpretation and review of laboratory results Abnormal [facility] Ketones, UA Negative Negative - 160(16) ++++ mg/dL [facility] Leukocytes, UA Negative Negative - 500+++ Clair/mcL [facility] Nitrite, UA Negative Negative - Positive [facility] pH, UA 7 5 - 9 [facility] Protein, UA Trace Negative - 1999(20) ++++ mg/dL [facility] Spec Grav, UA 1.025 1 - 1.03 [facility] Urobilinogen, UA 0.2 0.2 - 12 mg/dL [facility] US OB BPP W NON-STRESS on 08-12-2024 [place] [address] Ultrasound Report Signed Patient: RAPHAEL ELIZABETH MR#: [id number] : 1985 Acct:[id number] Age/Sex: 38 / F ADM Date: 08/12/24 Loc: US Attending Dr: Scooby Vega D.O. Ordering Physician: Scooby Vega D.O. Date of Service: 08/12/24 Procedure(s): US OB BPP w non-stress Accession Number(s): [id number] cc: Jen Granados M.D.; Scooby Vega D.O. [address] [address] Patient Name: RAPHAEL ELIZABETH MRN: [facility]:[id number] date: 1985 Sex: F Assigned Patient Location: [facility] Current Patient Location: Accession/Order Number: [id number] Exam Date: 08/12/2024 22:10 Report Date: 08/12/2024 22:12 At the request of: SCOOBY VEGA DO Procedure: US OB BPP w non-stress Biophysical profile. Reason for exam: GBM. COMPARISON: Biophysical profile 08/06/2024. TECHNIQUE: Transabdominal imaging of the gravid uterus was obtained. FINDINGS: Signaling Design Engineer reports the BPP is 8 out of 8. SIDDHARTHA is normal 11.2 cm. heart rate 142 bpm. US/US OB BPP w non-stress IMPRESSION: BPP 8 out of 8. Impression dictated by: Lucas Martin Jr., D.O.08/12/2024 10:12 PM Dictation Location: [place] [address] Electronically authenticated by: [id number] Y Date: 08/12/2024 22:12 Dictated By: Lucas Martin M.D. Signed By: 08/12/242213 DD/ 11 TD/TT: Automotive Accessory Installer: [facility] Radiology, Radiologi MD wilmer - 08/12/2024 [place] [address] Ultrasound Report Signed Patient: RAPHAEL ELIZABETH MR#: [id number] : 1985 Acct:[id number] Age/Sex: 38 / F ADM Date: 08/12/24 Loc: US Attending Dr: Scooby Vega D.O. Ordering Physician: Scooby Vega D.O. Date of Service: 08/12/24 Procedure(s): US OB BPP w non-stress Accession Number(s): [id number] cc: Jen Granados M.D.; Scooby Vega D.O. The [address] [address] Patient Name: RAPHAEL ELIZABETH MRN: [facility]:[id number] date: 1985 Sex: F Assigned Patient Location: [facility] Current Patient Location: Accession/Order Number: [id number] Exam Date: 08/12/2024 22:10 Report Date: 08/12/2024 22:12 At the request of: SCOOBY VEGA DO Procedure: US OB BPP w non-stress Biophysical profile. Reason for exam: GBM. COMPARISON: Biophysical profile 08/06/2024. TECHNIQUE: Transabdominal imaging of the gravid uterus was obtained. FINDINGS: Signaling Design Engineer reports the BPP is 8 out of 8. SIDDHARTHA is normal 11.2 cm. heart rate 142 bpm. US/US OB BPP w non-stress IMPRESSION: BPP 8 out of 8. Impression dictated by: Lucas Martin Jr., D.O.08/12/2024 10:12 PM Dictation Location: [facility]18 Electronically authenticated by: [id number] Y Date: 08/12/2024 22:12 Dictated By: Lucas Martin M.D. Signed By: 08/12/242213 DD/ 11 TD/TT: Automotive Accessory Installer: [facility] Radiology Study observation (narrative) [facility] US OB BPP W NON-STRESS Ordered By: Radiologist Radiology on 08-12-2024 [facility] Work Phone: US OB BPP W NON-STRESS on 08-06-2024 [place] [address] Ultrasound Report Signed Patient: RAPHAEL ELIZABETH MR#: [id number] : 1985 Acct:[id number] Age/Sex: 38 / F ADM Date: 08/05/24 Loc: US Attending Dr: Scooby Vega D.O. Ordering Physician: Scooby Vega D.O. Date of Service: 08/05/24 Procedure(s): US OB BPP w non-stress Accession Number(s): [id number] cc: Jen Granados M.D.; Scooby Vega D.O. The [address] [address] Patient Name: RAPHAEL ELIZABETH MRN: [facility]:[id number] date: 1985 Sex: F Assigned Patient Location: [facility] Current Patient Location: Accession/Order Number: [id number] Exam Date: 08/05/2024 19:09 Report Date: 08/06/2024 [...] Signed By: 08/06/24 0753 DD/ 0751 TD/TT: Automotive Accessory Installer: [facility] Radiology, Radiologi MD wilmer - 08/06/2024 [place] [address] Ultrasound Report Signed Patient: RAPHAEL ELIZABETH MR#: [id number] : 1985 Acct:[id number] Age/Sex: 38 / F ADM Date: 08/05/24 Loc: US Attending Dr: Scooby Vega D.O. Ordering Physician: Scooby Vega D.O. Date of Service: 08/05/24 Procedure(s): US OB BPP w non-stress Accession Number(s): [id number] cc: Jen Granados M.D.; Scooby Vega D.O. The [address] [address] Patient Name: RAPHAEL ELIZABETH MRN: [facility]:[id number] date: 1985 Sex: F Assigned Patient Location: [facility] Current Patient Location: Accession/Order Number: [id number] Exam Date: 08/05/2024 19:09 Report Date: 08/06/2024 [...] Signed By: 08/06/24 0753 DD/ 075 TD/TT: Automotive Accessory Installer: [facility] Radiology Study observation (narrative) [facility] US OB BPP W NON-STRESS Ordered By: Radiologist Radiology on 08-06-2024 [facility] Work Phone: US OB BPP W NON-STRESS on 08-01-2024 [place] [address] Ultrasound Report Signed Patient: RAPHAEL ELIZABETH MR#: [id number] : 1985 Acct:[id number] Age/Sex: 38 / F ADM Date: 07/29/24 Loc: US Attending Dr: Scooby Vega D.O. Ordering Physician: Scooby Vega D.O. Date of Service: 07/29/24 Procedure(s): US OB BPP w non-stress Accession Number(s): [id number] cc: Jen Granados M.D.; Scooby Vega D.O. [place] [address] Patient Name: RAPHAEL ELIZABETH MRN: [facility]:[id number] date: 1985 Sex: F Assigned Patient Location: [facility] Current Patient Location: Accession/Order Number: [id number] Exam Date: 07/29/2024 19:04 Report Date: 08/01/2024 [...] M.D. Signed By: 08/01/24713 DD/ 0 TD/TT: Automotive Accessory Installer: [facility] Radiology, Radiologi MD wilmer - 08/01/2024 [place] [address] Ultrasound Report Signed Patient: RAPHAEL ELIZABETH MR#: [id number] : 1985 Acct:[id number] Age/Sex: 38 / F ADM Date: 07/29/24 Loc: US Attending Dr: Scooby Vega D.O. Ordering Physician: Scooby Vega D.O. Date of Service: 07/29/24 Procedure(s): US OB BPP w non-stress Accession Number(s): [id number] cc: Jen Granados M.D.; Scooby Vega D.O. The [address] [address] Patient Name: RAPHAEL ELIZABETH MRN: [facility]:[id number] date: 1985 Sex: F Assigned Patient Location: [facility] Current Patient Location: Accession/Order Number: [id number] Exam Date: 07/29/2024 19:04 Report Date: 08/01/2024 [...] M.D. Signed By: 08/01/24713 DD/ 0 TD/TT: Automotive Accessory Installer: [facility] Radiology Study observation (narrative) [facility] US OB BPP W NON-STRESS Ordered By: Radiologist Radiology on 08-01-2024 [facility] Work Phone: Urinalysis macro (dipstick) panel (U)on 08-01-2024 Bilirubin, UA Negative Negative - 4(70) +++ mg/dL [facility] Blood, UA Negative Negative - 50 Ulises/mcL [facility] Clarity, UA Clear [facility] Color, UA Yellow [facility] Glucose, UA Negative Negative - 2000(110) ++++ mg/dL [facility] Interpretation and review of laboratory results Abnormal [facility] Ketones, UA Negative Negative - 160(16) ++++ mg/dL [facility] Leukocytes, UA Trace Negative - 500+++ Clair/mcL [facility] Nitrite, UA Negative Negative - Positive [facility] pH, UA 7.5 5 - 9 [facility] Protein, UA Negative Negative - 2000(20) ++++ mg/dL [facility] Spec Grav, UA 1.015 1 - 1.03 [facility] Urobilinogen, UA 0.2 0.2 - 12 mg/dL [facility] Urinalysis macro (dipstick) panel (U)on 07-18-2024 Bilirubin, UA Negative Negative - 4(70) +++ mg/dL [facility] Blood, UA Negative Negative - 50 Ulises/mcL [facility] Clarity, UA Clear [facility] Color, UA Yellow [facility] Glucose, UA Negative Negative - 1999(110) ++++ mg/dL [facility] Interpretation and review of laboratory results Normal [facility] Ketones, UA Negative Negative - 160(16) ++++ mg/dL [facility] Leukocytes, UA Negative Negative - 500+++ Clair/mcL [facility] Nitrite, UA Negative Negative - Positive [facility] pH, UA 7 5 - 9 [facility] Protein, UA Negative Negative - 1999(20) ++++ mg/dL [facility] Spec Grav, UA 1.025 1 - 1.03 [facility] Urobilinogen, UA 0.2 0.2 - 12 mg/dL [facility] ALL CBC WITH AUTO DIFFon BASOPHILS ABSOLUTE AUTO 0 [facility] Basophils/100 WBC (Bld) 0.2 % 0.2 - 2.0 % [facility] Eosinophils/100 WBC (Bld) 0.9 % 0.9 - 7.0 % [facility] Erythrocyte distribution width (RBC) [Ratio] 13 % 11.0 - 15.0 % [facility] Hematocrit (Bld) [Volume fraction] 32.2 % Low 36.0 - 48.0 % [facility] Hemoglobin (Bld) [Mass/Vol] 10.9 g/dL Low 12.0 - 16.0 g/dL [facility] IMMATURE GRANULOCYTES ABS AUTO 0.13 High [facility] Immature granulocytes/100 WBC (Bld) 1.4 % High 0.0 - 0.5 % [facility] Interpretation and review of laboratory results Abnormal [facility] LYMPHOCYTES ABSOLUTE AUTO 1.4 [facility] Lymphocytes/100 WBC (Bld) 15.4 % Low 20.5 - 60.0 % [facility] MCH (RBC) [Entitic mass] 32.7 pg 26.7 - 34.0 pg [facility] MCHC (RBC) [Mass/Vol] 33.9 g/dL 29.9 - 35.2 g/dL [facility] MCV (RBC) [Entitic vol] 96.7 fL 81.0 - 99.0 fL [facility] MONOCYTES ABSOLUTE AUTO 0.5 [facility] Monocytes/100 WBC (Bld) 4.8 % 1.7 - 12.0 % [facility] NEUTROPHILS ABSOLUTE AUTO 7.2 High [facility] Neutrophils/100 WBC (Bld) 77.3 % High 43.0 - 75.0 % [facility] Platelet mean volume (Bld) [Entitic vol] 9.2 fL Low 9.5 - 13.5 [facility]L [facility] PLT 229 [facility] RBC 3.33 Low [facility] WBC 9.3 [facility] Urinalysis macro (dipstick) panel (U)on 06-30-2024 Bilirubin, UA Negative Negative - 4(70) +++ mg/dL [facility] Blood, UA Negative Negative - 50 Ulises/mcL [facility] Clarity, UA Clear [facility] Color, UA Yellow [facility] Glucose, UA Negative Negative - 2000(110) ++++ mg/dL [facility] Interpretation and review of laboratory results Abnormal [facility] Ketones, UA Negative Negative - 160(16) ++++ mg/dL [facility] Leukocytes, UA Trace Negative - 500+++ Clair/mcL [facility] Nitrite, UA Negative Negative - Positive [facility] pH, UA 8.5 5 - 9 [facility] Protein, UA Positive Negative - 2000(20) ++++ mg/dL [facility] Comment on above: trace Spec Grav, UA 1.015 1 - 1.03 [facility] Urobilinogen, UA 0.2 0.2 - 12 mg/dL [facility] Basophils/100 WBC Manual cnt (Bld)on 06-25-2024 Basophils/100 WBC (Bld) Basophils/100 leukocytes in Blood by Manual count Low 0.2-2.0 [facility] Eosinophils/100 WBC Manual c nt (Bld)on 06-25-2024 Eosinophils/100 WBC (Bld) Eosinophils/100 leukocytes in Blood by Manual count 0.9-7.0 [facility] Erythrocyte distribution wid th Auto (RBC) [Ratio]on 06-25-2024 Erythrocyte distribution width (RBC) [Ratio] Erythrocyte distribution width [Ratio] by Automated count 11.0-15.0 [facility] Estimated glomerular filtrat ion rate (GFR) non- Americanon 06-25-2024 GFR/1.73 sq M.predicted among non-blacks MDRD (S/P/Bld) [Vol rate/Area] Estimated glomerular filtration rate (GFR) non- >=60 mL/min/1.73 m 2 [facility] Hematocrit Auto (Bld) [Volum e fraction]on 06-25-2024 Hematocrit (Bld) [Volume fraction] Hematocrit [Volume Fraction] of Blood by Automated count Low 36.0-48.0 [facility] Hemoglobin [Mass/volume] in Bloodon 06-25-2024 Hemoglobin (Bld) [Mass/Vol] Hemoglobin [Mass/volume] in Blood Low 12.0-16.0 [facility] Laboratory - Chemistry and C hemistry - challengeon 06-25-2024 Calcium [Mass/Vol] 8.2 mg/dL Low 8.5-10.1 [facility] Chloride [Moles/Vol] 99 mmol/L 98-107 [facility] CO2 [Moles/Vol] 21.2 mmol/L 21.0-32.0 [facility] Creatinine [Mass/Vol] 0.89 mg/dL 0.55-1.02 [facility] GFR/1.73 sq M.predicted MDRD (S/P/Bld) [Vol rate/Area] mL/min/{1.73_m2} >=60 mL/min/1.73 m 2 [facility] Glucose [Mass/Vol] 98 mg/dL 74-106 [facility] Potassium [Moles/Vol] 3.7 mmol/L 3.5-5.1 [facility] Sodium [Moles/Vol] 130 mmol/L Low 136-145 [facility] Urea nitrogen [Mass/Vol] 7.0 mg/dL 7.0-18.0 [facility] Urea nitrogen/Creatinine [Mass ratio] 7.9 mg/mg [facility] Bilirubin Ql (U) Negative NEGATIVE [facility] Glucose (U) [Mass/Vol] Negative NEGATIVE [facility] Ketones Ql (U) 15 mg/dL Abnormal NEGATIVE [facility] pH (U) 7.5 [pH] 5.0-9.0 [facility] Specific gravity (U) [Rel density] 1.015 1.005-1.025 [facility] Urobilinogen Qn (U) 1.0 {Ree'U}/dL 0.2-1.0 [facility] Laboratory - Hematology and Cell countson 06-25-2024 Band form neutrophils/100 WBC (Bld) 2.0 % 0-5 [facility] Lymphocytes/100 WBC (Bld) 2.0 % Low 20.5-60.0 [facility] Monocytes/100 WBC (Bld) 5.0 % 1.7-12.0 [facility] Laboratory - Microbiology an d Antimicrobial susceptibilityon 06-25-2024 SARS-CoV-2 (COVID-19) RNA JUAN ANTONIO+probe Ql (Unsp spec) Negative NEGATIVE [facility] Comment on above: This test has [...] ationon 06-25-2024 Appearance (U) CLOUDY Abnormal CLEAR [facility] Color (U) DK YELLOW YELLOW [facility] Laboratory - Urinalysison Leukocyte esterase Test strip Ql (U) Negative NEGATIVE [facility] Nitrite Ql (U) Negative NEGATIVE [facility] Protein Ql (U) TRACE mg/dL NEG/TRACE [facility] Leukocytes [#/volume] correc leroy for nucleated erythrocytes in Blood by Automated counon 01-04-2025 WBC corrected for nucl RBC Auto (Bld) [#/Vol] Leukocytes [#/volume] corrected for nucleated erythrocytes in Blood by Automated coun 4.0-11.0 [facility] MCH Auto (RBC) [Entitic mass ]on 06-25-2024 MCH (RBC) [Entitic mass] MCH [Entitic mass] by Automated count 26.7-34.0 [facility] MCHC Auto (RBC) [Mass/Vol]on 06-25-2024 MCHC (RBC) [Mass/Vol] MCHC [Mass/volume] by Automated count 29.9-35.2 [facility] MCV Auto (RBC) [Entitic vol] on 06-25-2024 MCV (RBC) [Entitic vol] MCV [Entitic volume] by Automated count 81.0-99.0 [facility] No Panel Informationon 06-25 Absolute Basophils (Manual) 0.00 10 3/uL 0.00-0.10 [facility] Band Neutrophils # (Manual) 0.2 10 3/uL 0.0-0.3 [facility] Eosinophils # (Manual) 0.08 10 3/uL 0.00-0.70 [facility] Lymphocytes # (Manual) 0.16 10 3/uL Low 1.20-3.80 [facility] Monocytes # (Manual) 0.41 10 3/uL 0.30-0.80 [facility] Segmented Neutrophils # (Manual) 7.38 10 3/uL High 1.4-6.5 [facility] Urine Occult Blood Negative NEGATIVE [facility] Bedside Influenza Type A Antigen Positive Abnormal [facility] Comment on above: NOTE: Live attenuate d influenza vaccine viruses can cause apositive result for a rapid influenza diagnostic test ifadministered up to 7 days prior to rapid testing. Bedside Influenza Type B Antigen Negative [facility] Comment on above: Negative for Flu B p rotein antigen. Infection due to Flu Bcannot be ruled out. Flu B antigen in the sample may bebelow the detection limit of the test. Platelet mean volume Auto (B ld) [Entitic vol]on 06-25-2024 Platelet mean volume (Bld) [Entitic vol] Platelet mean volume [Entitic volume] in Blood by Automated count Low 9.5-13.5 [facility] Platelets Auto (Bld) [#/Vol] on 06-25-2024 Platelets (Bld) [#/Vol] Platelets [#/volume] in Blood by Automated count 150-450 [facility] RBC Auto (Bld) [#/Vol]on RBC (Bld) [#/Vol] Erythrocytes [#/volu me] in Blood by Automated count Low 4.20-5.40 [facility] Segmented neutrophils/100 WB C Manual cnt (Bld)on 06-25-2024 Segmented neutrophils/100 WBC (Bld) Manual blood segmented neutrophils/100 leukocytes High 43.0-75.0 [facility] Serum or plasma anion gap de terminationon 06-25-2024 Anion gap [Moles/Vol] Serum or plasma anion gap determination [facility] Urine Cultureon 06-25-2024 Bacteria identified Cx Nom (U) No Growth 2 Days PERFORMED BY: [place] [address] PATHOLOGIST TANKERMAN DANTE PALACIOS M.D. Normal [facility] Comment on above: Performed By: #### C UU #### [address] IGP,APTIMA HPV,AGE GDLNon AGE GDLN ACOG TESTING Note . [facility] Comment on above: TESTS RESULT FLAG UN ITS REF RANGE LAB Clinician Provided Cytology Information Source.............Cervix No. of containers..01 ThinPrep Vial Age Algo ACOG Annel... FLAG LEGEND: L-Low Normal,H-High Normal,LL-Alert Low,HH-Alert High <-Panic Low,>-Panic High,A-Abnormal,AA-Critical Abnormal Performed at: 01 =[address] [address] Kathryn Maldonado MD, HPV APTIMA Negative Negative [facility] Comment on above: This nucleic acid am plification test detects fourteen high- risk HPV types (16,18,31,33,35,39,45,51,52,56,58,59,66,68) without differentiation. Performed at: =[address] [id number] [employer]: Kathryn Maldonado MD, Phone: [phone] Performed at: [address] [id number] [employer]: Kathryn Maldonado MD, Phone: [phone] IGP, APTIMA HPV, RFX 16/18,45 Note . [facility] Comment on above: TESTS RESULT FLAG UN ITS REF RANGE LAB DIAGNOSIS: 02 NEGATIVE FOR INTRAEPITHELIAL LESION OR MALIGNANCY. Specimen adequacy: 02 Satisfactory for evaluation. Endocervical and/or squamous metaplastic cells (endocervical component) are present. Performed by: Elidia Shankar, Ice Cream Man . 02 Note: Note 02 The Pap [...] High,A-Abnormal,AA-Critical Abnormal Performed at: 02 [facility] [address] [address] Kathryn Maldonado MD, BRUSH-SPATULA CERVIX [facility] RECURRENT VAGINITIS (HTRX)on 05-05-2024 ATOPOBIUM VAGINAE 0 [facility] ATOPOBIUM VAGINAE Not detected [facility] BVAB 2,3 (BACTERIAL VAGINOSIS ASSOCIATED BACTERIA 2, 3); MOBILUNCUS SPP 0 [facility] BVAB 2,3 (BACTERIAL VAGINOSIS ASSOCIATED BACTERIA 2, 3); MOBILUNCUS SPP Not detected [facility] JED ALBICANS, PARAPSILOSIS, TROPICALIS 0 [facility] JED ALBICANS, PARAPSILOSIS, TROPICALIS Not detected [facility] JED GLABRATA 0 [facility] JED GLABRATA Not detected [facility] JED KRUSEI 0 [facility] JED KRUSEI Not detected [facility] CHLAMYDIA TRACHOMATIS 0 [facility] Healthcare CHLAMYDIA TRACHOMATIS Not detected [facility] Healthcare GARDNERELLA VAGINALIS 0 [facility] GARDNERELLA VAGINALIS Not detected [facility] MEGASPHAERA (TYPES 1, 2) 0 [facility] MEGASPHAERA (TYPES 1, 2) Not detected [facility] Healthcare MYCOPLASMA GENITALIUM 0 [facility] MYCOPLASMA GENITALIUM Not detected [facility] NEISSERIA GONORRHOEAE 0 [facility] NEISSERIA GONORRHOEAE Not detected [facility] TRICHOMONAS VAGINALIS 0 [facility] TRICHOMONAS VAGINALIS Not detected [facility] Urinalysis macro (dipstick) panel (U)on 05-03-2024 Bilirubin, UA Negative Negative - 4(70) +++ mg/dL [facility] Blood, UA Negative Negative - 50 Ulises/mcL [facility] Clarity, UA Clear [facility] Color, UA Yellow [facility] Glucose, UA Negative Negative - 1999(110) ++++ mg/dL [facility] Interpretation and review of laboratory results Normal [facility] Ketones, UA Negative Negative - 160(16) ++++ mg/dL [facility] Leukocytes, UA Negative Negative - 500+++ Clair/mcL [facility] Nitrite, UA Negative Negative - Positive [facility] pH, UA 0.5 5 - 9 [facility] Protein, UA Negative Negative - 1999(20) ++++ mg/dL [facility] Spec Grav, UA 1.025 1 - 1.03 [facility] Urobilinogen, UA 1.0 0.2 - 12 mg/dL [facility] Human papilloma virus 16+18+ 31+33+35+39+45+51+52+56+58+59+66+68 DNA [Presence] in Denis 05-02-2024 HPV 16+18+31+33+35+39+4 5+51+52+56+58+59+66 +68 DNA Probe+sig amp Ql (Cvx) Human papilloma virus 16+18+31+33+35+39+45+51+52+5 6+58+59+66+68 DNA [Presence] in Cer Negative [facility] Comment on above: This nucleic acid am plification test detects fourteen high- risk HPV types (16,18,31,33,35,39,45,51,52,56,58,59,66,68)without differentiation.Performed at: = - [facility] [id number] Director: Kathryn Maldonado MD, Phone: [phone] at: - [facility] [id number] Director: Kathryn Maldonado MD, Phone: [phone] No Panel Informationon 05-02 HPV High Risk Other Comment Note . [facility] Comment on above: TESTS RESULT FLAG UN ITS REF RANGE LAB JESE GNOSIS: 02 NEGATIVE FOR INTRAEPITHELIAL LESION OR MALIGNANCY.Specimen adequacy: 02 Satisfactory for evaluation. Endocervical and/or squamous metaplastic cells (endocervical component) are present.Performed by: 02 Thao Shankar, Ice Cream Man. 02Note: Note 02 The Pap smear is [...] Low,>-Panic High,A-Abnormal,AA-Critical Abnormal --Performed at:02 [facility] [address], [place] [address] Kathryn Maldonado MD, Reference Lab Test Patient Age Note . [facility] Comment on above: TESTS RESULT FLAG UN ITS REF RANGE LAB Clinician Provided Cytology Information Source.............Cervix No. of containers..01 ThinPrep VialAge Richie SANDERS Annel... FLAG LEGEND: L-Low Normal,H-High Normal,LL-Alert Low,HH-Alert High <-Panic Low,>-Panic High,A-Abnormal,AA-Critical Abnormal --Performed at:01 =G [address] [address] Kathryn Maldonado MD, AFP, SERUM, OPEN SPINA BIFID Aon 05-01-2024 AFP MOM 1.18 . [facility] AFP VALUE 61.8 ng/mL . [facility] COMMENT: Comment . [facility] Comment on above: Cydney Rodriguez , Ph.D., [facility] Director References: Available Upon Request. Multiples Of Median Cutoffs For AFP Elevations Chiang 2.5 Black 2.8 IDD 2.0 Twins 4.5 Abbreviation Definitions IDD - Insulin Dep Diabetes OSBR - Open Spina Bifida Risk For further inquiries contact [facility] at [phone]. This test was developed and its performance characteristics determined by [facility]. It has not been cleared or approved by the Food and Drug Administration. Performed at: [facility] [address] [facility], [place], [place] [id number] [employer] Driver: Marissa Kovacs [facility], Phone: [phone] GEST. AGE ON COLLECTION DATE 19.0 . weeks [facility] GESTAT. AGE BASED ON LMP . [facility] Comment on above: Recalculations are n ot recommended when gestational dating by LMP and ultrasound are within 10 days. INSULIN DEP DIABETES No . [facility] INTERPRETATION Comment . [facility] Comment on above: Interpretation: Scre [...] Customer Services to discuss available options. The [employer] recommends amniocentesis be offered to women age 35 and older. [age] [facility] MULTIPLE GESTATION No . [facility] OSBR RISK 1 IN 6916 . [facility] RACE . [facility] RESULTS Report . [facility] TEST RESULTS: Negative . [facility] WEIGHT 135 . lbs [facility] N N LMP [id number] 3 15 N 1 Y 135 N N N N N White/ [facility] Alpha-fetoprotein (AFP) paige urement (xnpvibvb-ta-dgootj)on 04-29-2024 AFP [MoM] Alpha-fetoprotein (A FP) measurement (snwgvbgd-ao-pxhslr) . [facility] Assess gestational ageon Gestational age Assess gestational age . [facility] Estimation of maternal age-s pecific risk of Down syndrome birthon 04-29-2024 Age [Time] Estimation of matern al age-specific risk of Down syndrome . [facility] Insulin dependent diabetes m ellitus detectionon 04-29-2024 Insulin dependent diabetes mellitus Ql Insulin dependent diabetes mellitus detection . [facility] Interpretation of serum or p lasma second trimester quad maternal screen (narrative reon 04-29-2024 Second trimester quad maternal screen Darshan [Interp] Interpretation of serum or plasma second trimester quad maternal screen (narrative re . [facility] Comment on above: Interpretation: Scre en [...] 04-29 AFP Triple Screen Comment Comment . [facility] Comment on above: Cydney Rodriguez , Ph.D., DABCCDirectorReferences: Available Upon Request.Multiples Of Median Cutoffs For AFP ElevationsSingleton 2.5 Black 2.8IDD 2.0 Twins 4.5 Abbreviation DefinitionsIDD - Insulin Dep DiabetesOSBR - Open Spina Bifida RiskFor further inquiries contact [employer] at [phone].This test was developed and its performance characteristicsdetermined by [employer]. It has not been cleared or approvedby the Food and Drug Administration.Performed at: [facility] [id number] [place], [place] [id number] Director: Marissa Kovacs [facility], Phone: [phone] Alpha Fetoprotein Results Received Report . [facility] Gestational Age Calculation Method LMP . [facility] Comment on above: Recalculations are n ot recommended when gestational datingby LMP and ultrasound are within 10 days. Maternal Quad Test Risk 6916 . [facility] Maternal Race . [facility] Multiple No . [facility] Serum or plasma ymhca-0-tlhf protein measurement (mass/volume)on 04-29-2024 AFP [Mass/Vol] Serum or plasma fezjg-5-ukcxrkkgbql measurement (mass/volume) . [facility] BOX TEST SENT OUTon BOX TEST SENT OUT Y [facility] UNITY BOX [facility] ALL CBC WITH AUTO DIFFon BASOPHILS ABSOLUTE AUTO 0.0 [facility] Basophils/100 WBC (Bld) 0.5 % 0.2 - 2.0 % [facility] Eosinophils/100 WBC (Bld) 0.9 % 0.9 - 7.0 % [facility] Erythrocyte distribution width (RBC) [Ratio] 11.9 % 11.0 - 15.0 % [facility] Hematocrit (Bld) [Volume fraction] 37.3 % 36.0 - 48.0 % [facility] Hemoglobin (Bld) [Mass/Vol] 12.7 g/dL 12.0 - 16.0 g/dL [facility] IMMATURE GRANULOCYTES ABS AUTO 0.02 [facility] Immature granulocytes/100 WBC (Bld) 0.3 % 0.0 - 0.5 % [facility] Interpretation and review of laboratory results Abnormal [facility] LYMPHOCYTES ABSOLUTE AUTO 1.8 [facility] Lymphocytes/100 WBC (Bld) 27.4 % 20.5 - 60.0 % [facility] MCH (RBC) [Entitic mass] 32.2 pg 26.7 - 34.0 pg [facility] MCHC (RBC) [Mass/Vol] 34.0 g/dL 29.9 - 35.2 g/dL [facility] MCV (RBC) [Entitic vol] 94.4 fL 81.0 - 99.0 fL [facility] MONOCYTES ABSOLUTE AUTO 0.3 [facility] Monocytes/100 WBC (Bld) 5.1 % 1.7 - 12.0 % [facility] NEUTROPHILS ABSOLUTE AUTO 4.4 [facility] Neutrophils/100 WBC (Bld) 65.8 % 43.0 - 75.0 % [facility] Platelet mean volume (Bld) [Entitic vol] 9.4 fL Low 9.5 - 13.5 fL [facility] TBH EO # 0.1 [facility] PLT 215 [facility] RBC 3.95 Low [facility] WBC 6.6 [facility] HCG ( test) Ql (U)o n 02-12-2024 Interpretation and review of laboratory results Abnormal [facility] Preg Test, Ur Positive [facility] Urinalysis macro (dipstick) panel (U)on 02-12-2024 Bilirubin, UA Negative Negative - 4(70) +++ mg/dL [facility] Blood, UA Negative Negative - 50 Ulises/mcL [facility] Clarity, UA Clear [facility] Color, UA Yellow [facility] Glucose, UA Negative Negative - 2000(110) ++++ mg/dL [facility] Interpretation and review of laboratory results Normal [facility] Ketones, UA Negative Negative - 160(16) ++++ mg/dL [facility] Leukocytes, UA Negative Negative - 500+++ Clair/mcL [facility] Nitrite, UA Negative Negative - Positive [facility] pH, UA 6.5 5 - 9 [facility] Protein, UA Negative Negative - 1999(20) ++++ mg/dL [facility] Spec Grav, UA 1.015 1 - 1.03 [facility] Urobilinogen, UA 1.0 0.2 - 12 mg/dL [facility] No Panel Informationon 11-29 Human Chorionic Gonadotropin, Quant 2 mIU/mL [facility] Comment on above: 5-50 0.2-1 FNZM59-86 0 1-2 KKWLW784-7,000 2-3 HLIXP727-44,000 3-4 WEEKS1,000-50,000 4-5 WEEKS10,000-100,000 5-6 WEEKS15,000-200,000 6-8 WEEKS10,000-100,000 2-3 MONTHS No Panel Informationon 11-22 Human Chorionic Gonadotropin, Quant 3 mIU/mL [facility] Comment on above: 5-50 0.2-1 NICZ79-12 0 1-2 DFIKN850-2,000 2-3 USFKE284-36,000 3-4 WEEKS1,000-50,000 4-5 WEEKS10,000-100,000 5-6 WEEKS15,000-200,000 6-8 WEEKS10,000-100,000 2-3 MONTHS No Panel Informationon 11-16 Human Chorionic Gonadotropin, Quant 6 mIU/mL [facility] Comment on above: 5-50 0.2-1 WDDT90-32 0 1-2 GNJEJ359-7,000 2-3 SBENR239-11,000 3-4 WEEKS1,000-50,000 4-5 WEEKS10,000-100,000 5-6 WEEKS15,000-200,000 6-8 WEEKS10,000-100,000 2-3 MONTHS No Panel Informationon 11-08 Human Chorionic Gonadotropin, Quant 27 mIU/mL [facility] Comment on above: 5-50 0.2-1 BSRQ81-35 0 1-2 KDRAJ060-3,000 2-3 IKSTU199-47,000 3-4 WEEKS1,000-50,000 4-5 WEEKS10,000-100,000 5-6 WEEKS15,000-200,000 6-8 WEEKS10,000-100,000 2-3 MONTHS Basophils Auto (Bld) [#/Vol] on 10-23-2023 Basophils (Bld) [#/Vol] 0.0 10 3/uL 0.0-0.1 [facility] Basophils/100 WBC Auto (Bld) on 10-23-2023 Basophils/100 WBC (Bld) 0.8 % 0.2-2.0 [facility] Eosinophils/100 WBC Auto (Bl d)on 10-23-2023 Eosinophils/100 WBC (Bld) 1.4 % 0.9-7.0 [facility] Erythrocyte distribution wid th Auto (RBC) [Ratio]on 10-23-2023 Erythrocyte distribution width (RBC) [Ratio] 11.9 % 11.0-15.0 [facility] Hematocrit Auto (Bld) [Volum e fraction]on 10-23-2023 Hematocrit (Bld) [Volume fraction] 36.0 % 36.0-48.0 [facility] Hemoglobin [Mass/volume] in Bloodon 10-23-2023 Hemoglobin (Bld) [Mass/Vol] 11.8 g/dL 12.0-16.0 [facility] Krzysztof 10-23-2023 L Specimen: [id number] R eceived: 10/26/23 Status: MAIA Newell Num: [id number] Spec Type: Surgical Subm Dr: Scooby Vega Tissues: A Products of Conception - Spontaneous or Missed (POC) Procedures: HE/3, Gross/Micro L4 Age/ Patient Sex Location Account Attending Physician Raphael Elizabeth 37/F [facility] [id number] Scooby Vega SPEC NUM: [id number] RECD: 10/26/23 [facility] NUM: [id number] JANIE: 10/23/[address]: Scooby Vega ENTERED: [...] cm possible area of villous tissue identified. Diet Aid sections to include the possible villous tissue are submitted in A1?A3. Clinical history: Missed CPT Codes 83384 -------- -------- Specimen: [id number] Received: 10/26/23 Status: MAIA Newell Num: [id number] Spec Type: Surgical Subm Dr: Scooby Vega Tissues: A Products of Conception - Spontaneous or Missed (POC) Procedures: KANDI/[place], Gross/Micro L4 -------- Patient: Raphael Elizabeth [id number] (Continued) -------- Signed (signature on file) Dante Palacios MD 10/27/23 1511 Normal [facility] Laboratory - Hematology and Cell countson 10-23-2023 Immature granulocytes/100 WBC (Bld) 0.2 % 0.0-0.5 [facility] Leukocytes [#/volume] correc leroy for nucleated erythrocytes in Blood by Automated counon 10-23-2023 WBC corrected for nucl RBC Auto (Bld) [#/Vol] 5.1 10 3/uL 4.0-11.0 [facility] Lymphocytes Auto (Bld) [#/Vo l]on 10-23-2023 Lymphocytes (Bld) [#/Vol] 1.7 10 3/uL 1.2-3.8 [facility] Lymphocytes/100 WBC Auto (Bl d)on 10-23-2023 Lymphocytes/100 WBC (Bld) 32.8 % 20.5-60.0 [facility] MCH Auto (RBC) [Entitic mass ]on 10-23-2023 MCH (RBC) [Entitic mass] 31.1 pg 26.7-34.0 [facility] MCHC Auto (RBC) [Mass/Vol]on 10-23-2023 MCHC (RBC) [Mass/Vol] 32.8 g/dL 29.9-35.2 [facility] MCV Auto (RBC) [Entitic vol] on 10-23-2023 MCV (RBC) [Entitic vol] 95.0 fL 81.0-99.0 [facility] Monocytes Auto (Bld) [#/Vol] on 10-23-2023 Monocytes (Bld) [#/Vol] 0.3 10 3/uL 0.3-0.8 [facility] Monocytes/100 WBC Auto (Bld) on 10-23-2023 Monocytes/100 WBC (Bld) 5.5 % 1.7-12.0 [facility] Neutrophils Auto (Bld) [#/Vo l]on 10-23-2023 Neutrophils (Bld) [#/Vol] 3.0 10 3/uL 1.4-6.5 [facility] Neutrophils/100 WBC Auto (Bl d)on 10-23-2023 Neutrophils/100 WBC (Bld) 59.3 % 43.0-75.0 [facility] No Panel Informationon 10-22 Eosinophils # (Auto) 0.1 10 3/uL 0.0-0.7 [facility] Immature Granulocyte # (Auto) 0.01 10 3/uL 0.00-0.03 [facility] Platelet mean volume Auto (B ld) [Entitic vol]on 10-23-2023 Platelet mean volume (Bld) [Entitic vol] 9.0 fL 9.5-13.5 [facility] Platelets Auto (Bld) [#/Vol] on 10-23-2023 Platelets (Bld) [#/Vol] 182 10 3/uL 150-450 [facility] RBC Auto (Bld) [#/Vol]on RBC (Bld) [#/Vol] 3.79 10 6/uL 4.20-5.40 [facility] No Panel Informationon 10-11 Human Chorionic Gonadotropin, Quant 81029 mIU/mL [facility] Comment on above: 5-50 0.2-1 ELAM62-40 0 1-2 JZPJN842-2,000 2-3 JIOOO021-16,000 3-4 WEEKS1,000-50,000 4-5 WEEKS10,000-100,000 5-6 WEEKS15,000-200,000 6-8 WEEKS10,000-100,000 2-3 MONTHS No Panel Informationon 10-06 Human Chorionic Gonadotropin, Quant 03220 mIU/mL [facility] Comment on above: 5-50 0.2-1 VWFG88-80 0 1-2 LOQTZ132-6,000 2-3 FYABS496-47,000 3-4 WEEKS1,000-50,000 4-5 WEEKS10,000-100,000 5-6 WEEKS15,000-200,000 6-8 WEEKS10,000-100,000 2-3 MONTHS No Panel Informationon 10-04 Human Chorionic Gonadotropin, Quant 93121 mIU/mL [facility] Comment on above: 5-50 0.2-1 BZUT84-22 0 1-2 HLUAR637-2,000 2-3 WJRJU661-78,000 3-4 WEEKS1,000-50,000 4-5 WEEKS10,000-100,000 5-6 WEEKS15,000-200,000 6-8 WEEKS10,000-100,000 2-3 MONTHS PAP ACOG PANEL 2: 30 to 65on 03-11-2022 . . Normal [facility] Comment on above: Result Comment: Perf ormed at: WB Performed By: #### [id number] #### [facility] [address] [place] [address] Dr. Danni Jacobs Age Gdln ACOG Testing 30-65 [facility] Comment on above: Performed By: #### [id number] #### [facility] [address] [place] [address] Dr. Danni Jacobs DIAGNOSIS: Comment Normal [facility] Comment on above: Result Comment: NEGA TIVE FOR INTRAEPITHELIAL LESION OR MALIGNANCY. THIS SPECIMEN WAS RESCREENED PART OF OUR AIR INTERCEPT CONTROLLER PROGRAM. Performed at: WB Performed By: #### [id number] #### [facility] [address] [place] [address] Dr. Danni Jacobs HPV Aptima Negative Normal Negative [facility] Comment on above: Result Comment: This nucleic acid amplification test detects fourteen high-risk HPV types (16,18,31,33,35,39,45,51,52,56,58,59,66,68) without differentiation. Performed at: =G Performed By: #### [id number] #### [facility] [address] [place] [address] Dr. Danni Jacobs Methodology: Comment Normal [facility] Comment on above: Result Comment: This liquid based ThinPrep(R) pap test was screened with the use of an image guided system. Performed at: WB Performed By: #### [id number] #### [facility] [address] [place] [address] Dr. Danni Jacobs Note: Comment Normal [facility] Comment on above: Result Comment: The Pap smear is a screening test designed to aid in the detection of premalignant and malignant conditions of the uterine cervix. It is not a diagnostic procedure and should not be used as the sole means of detecting cervical cancer. Both false-positive and false-negative reports do occur. . Performed at: WB Performed By: #### [id number] #### [facility] [address] [address] [address] Danni Jacobs Performed by: Comment Normal [facility] Comment on above: Result Comment: Rocky Hull, Ice Cream Man (ASCP) Performed at: WB Performed By: #### [id number] #### [facility] [address] [place] [address] Dr. Danni Jacobs QC reviewed by: Comment Normal [facility] Comment on above: Result Comment: Betzaida Ge, Supervisory Ice Cream Man (ASCP) Performed at: WB Performed By: #### [id number] #### [facility] [address] [place] [address] Dr. Danni Jacobs Specimen adequacy: Comment Normal [facility] Comment on above: Result Comment: Sati sfactory for evaluation. Endocervical and/or squamous metaplastic cells (endocervical component) are present. Performed at: WB Performed By: #### [id number] #### [facility] [address] [place] [address] Dr. Danni Jacobs GLUCOSE BLOODon 04-22-2021 Glucose [Mass/Vol] 99 mg/dL Normal 74-106 [facility] Comment on above: Performed By: #### G YOSEPH, LIPID #### [facility] [address] [address] [address] Danni Jacobs LIPID PROFILEon 04-22-2021 CHOL-HDL RATIO NORM SEE BELOW [facility] Comment on above: Result Comment: 3.3 - 4.4 LOW RISK 4.4 - 7.1 AVERAGE RISK 7.1 - 11.0 MODERATE RISK >11.0 HIGH RISK Performed By: #### G YOSEPH, LIPID #### [facility] [address] [address] [address] Danni Jacobs Cholesterol [Mass/Vol] 157 mg/dL Normal <=200 [facility] Comment on above: Performed By: #### G YOSEPH, LIPID #### [facility] [address] [address] [address] Danni Jacobs Cholesterol in HDL [Mass/Vol] 74 mg/dL Normal [facility] Comment on above: Performed By: #### G YOSEPH, LIPID #### [facility] [address] [address] [address] Danni Jacobs Cholesterol in LDL [Mass/Vol] 71.2 mg/dL Normal [facility] Comment on above: Performed By: #### G YOSEPH, LIPID #### [facility] [address] [address] [address] Danni Jacobs Cholesterol.total/C holesterol in HDL [Mass ratio] 2.1 {ratio} Normal [facility] Comment on above: Performed By: #### G YOSEPH, LIPID #### [facility] [address] [address] [address] Danni Jacobs HDL NORMAL > or = 60 mg/dl - LO W CARDIOVASCULAR RISK <40 mg/dl - HIGH CARDIOVASCULAR RISK Normal [facility] Comment on above: Performed By: #### G YOSEPH, LIPID #### [facility] [address] [address] [address] Danni Jacobs LDL CALC NORMAL SEE BELOW Normal [facility] Comment on above: Result Comment: <100 mg/dl OPTIMAL 100 - 129 mg/dl NEAR OR ABOVE OPTIMAL 130 - 159 mg/dl BORDERLINE HIGH 160 - 189 mg/dl HIGH >190 mg/dl VERY HIGH Performed By: #### G YOSEPH, LIPID #### [facility] [address] [address] [address] Danni Jacobs Triglyceride [Mass/Vol] 59 mg/dL Normal <=150 [facility] Comment on above: Performed By: #### G YOSEPH, LIPID #### [facility] [address] [address] [address] Danni Jacobs VLDL CALC 11.8 mg/dL Normal [facility] Comment on above: Performed By: #### G YOSEPH, LIPID #### [facility] [address] [place] [address] Dr. Danni Jacobs Vital Signs Date Time Vital Sign Value Performing Clinician Philippe mera 09-20-2024 14:47-0400 Body mass index (BMI) [Ratio] 24.34 kg/m2 Scooby Gary DO Work Phone: [facility] 09-20-2024 14:47-0400 Body weight 70.49 kg Scooby Gary DO Work Phone: [facility] 09-20-2024 14:47-0400 Diastolic blood pressure 80 mm[Hg] Scooby Gary DO Work Phone: [facility] 09-20-2024 14:47-0400 Systolic blood pressure 110 mm[Hg] Scooby Gary DO Work Phone: [facility] 08-24-2024 13:51-0500 Body mass index (BMI) [Ratio] 24.18 kg/m2 Scooby Gary DO Work Phone: [facility] 08-24-2024 13:51-0500 Body weight 70.03 kg Scooby Gary DO Work Phone: [facility] 08-24-2024 13:51-0500 Diastolic blood pressure 68 mm[Hg] Scooby Gary DO Work Phone: [facility] 08-24-2024 13:51-0500 Systolic blood pressure 112 mm[Hg] Scooby Gary DO Work Phone: [facility] 08-18-2024 09:28-0500 Body mass index (BMI) [Ratio] 23.62 kg/m2 Scooby Gary DO Work Phone: [facility] 08-18-2024 09:28-0500 Body weight 68.4 kg Scooby Gary DO Work Phone: [facility] 08-18-2024 09:28-0500 Diastolic blood pressure 72 mm[Hg] Scooby Gary DO Work Phone: [facility] 08-18-2024 09:28-0500 Systolic blood pressure 110 mm[Hg] Scooby Gary DO Work Phone: [facility] 08-01-2024 13:55-0500 Body mass index (BMI) [Ratio] 22.87 kg/m2 Scooby Gary DO Work Phone: [facility] 08-01-2024 13:55-0500 Body weight 66.22 kg Scooby Gary DO Work Phone: [facility] 08-01-2024 13:55-0500 Diastolic blood pressure 74 mm[Hg] Scooby Gary DO Work Phone: [facility] 08-01-2024 13:55-0500 Systolic blood pressure 116 mm[Hg] Scooby Gary DO Work Phone: [facility] 07-18-2024 15:05-0500 Body mass index (BMI) [Ratio] 22.84 kg/m2 Scooby Gary DO Work Phone: [facility] 07-18-2024 15:05-0500 Body weight 66.13 kg Scooby Gary DO Work Phone: [facility] 07-18-2024 15:05-0500 Diastolic blood pressure 70 mm[Hg] Scooby Gary DO Work Phone: [facility] 07-18-2024 15:05-0500 Systolic blood pressure 118 mm[Hg] Scooby Gary DO Work Phone: [facility] 06-30-2024 12:01-0500 Body mass index (BMI) [Ratio] 22.26 kg/m2 Scooby Gary DO Work Phone: [facility] 06-30-2024 12:01-0500 Body weight 64.47 kg Scooby Gary DO Work Phone: [facility] 06-30-2024 12:01-0500 Diastolic blood pressure 70 mm[Hg] Scooby Gary DO Work Phone: [facility] 06-30-2024 12:01-0500 Systolic blood pressure 110 mm[Hg] Scooby Gary DO Work Phone: [facility] 06-02-2024 10:45-0500 Body mass index (BMI) [Ratio] 21.9 kg/m2 Scooby Gary DO Work Phone: [facility] 06-02-2024 10:45-0500 Body weight 63.41 kg Scooby Gary DO Work Phone: [facility] 06-02-2024 10:45-0500 Diastolic blood pressure 72 mm[Hg] Scooby Gary DO Work Phone: [facility] 06-02-2024 10:45-0500 Systolic blood pressure 116 mm[Hg] Scooby Gary DO Work Phone: [facility] 05-02-2024 16:20-0500 Body mass index (BMI) [Ratio] 21.61 kg/m2 Emely COBB Work Phone: [facility] 05-02-2024 16:20-0500 Body weight 62.6 kg Emely COBB Work Phone: [facility] 05-02-2024 16:20-0500 Diastolic blood pressure 68 mm[Hg] Emely COBB Work Phone: [facility] 05-02-2024 16:20-0500 Systolic blood pressure 120 mm[Hg] Emely COBB Work Phone: [facility] 04-29-2024 11:40-0500 Body weight Jen Granados MD Work Phone: [facility] 04-04-2024 14:55-0400 Body mass index (BMI) [Ratio] 21.27 kg/m2 Scooby Gary DO Work Phone: [facility] 04-04-2024 14:55-0400 Body weight 61.6 kg Scooby Gary DO Work Phone: [facility] 04-04-2024 14:55-0400 Diastolic blood pressure 70 mm[Hg] Scooby Gary DO Work Phone: [facility] 04-04-2024 14:55-0400 Systolic blood pressure 116 mm[Hg] Scooby Gary DO Work Phone: [facility] 03-07-2024 10:47-0400 Body mass index (BMI) [Ratio] 20.07 kg/m2 Scooby Gary DO Work Phone: [facility] 03-07-2024 10:47-0400 Body weight 58.12 kg Scooby Gary DO Work Phone: [facility] 03-07-2024 10:47-0400 Diastolic blood pressure 68 mm[Hg] Scooby Gary DO Work Phone: [facility] 03-07-2024 10:47-0400 Systolic blood pressure 114 mm[Hg] Scooby Gary DO Work Phone: [facility] 12-01-2023 16:10-0400 Body height 170.18 cm Scooby Gary Work Phone: [facility] 12-01-2023 16:10-0400 Body mass index (BMI) [Ratio] 19.5 kg/m2 Scooby Gary Work Phone: [facility] 12-01-2023 16:10-0400 Body weight 56.69 kg Scooby Gary Work Phone: [facility] 12-01-2023 16:10-0400 Diastolic blood pressure 78 mm[Hg] Scooby Gary Work Phone: [facility] 12-01-2023 16:10-0400 Systolic blood pressure 112 mm[Hg] Scooby Gary Work Phone: [facility] Encounters Encounter Date Encounter Type Care Provider Facility Start: 09-23-2024 End: 09-23-2024 Clinisync Result Encounter Scooby Gary DO Work Phone: [facility] External Department Unsolicited Start: 09-23-2024 End: 09-23-2024 Clinisync Result Encounter Scooby Gary DO Work Phone: [facility] External Department Unsolicited Start: 09-20-2024 End: 09-20-2024 ambulatory SCOOBY GARY [...] flow sheet Scooby Gary DO Work Phone: [facility] Comment on above: 27 weeks gestation o f ; Second trimester ; Gestational diabetes mellitus (GDM), antepartum, gestational diabetes method of control unspecified Start: 06-25-2024 End: 06-25-2024 ambulatory Jen Granados MD Work Phone: [facility] Work Phone: Start: 06-25-2024 End: 06-25-2024 Departed Referred Jen Granados MD Work Phone: [facility] Start: 06-25-2024 Non-patient / Non-visit Jen Granados MD [facility] Phone[facility] Work Phone: Start: 06-02-2024 End: 06-02-2024 Bamboo flowsheet Scooby Gary DO Work Phone: [facility] Start: 06-02-2024 End: 06-02-2024 Bamboo flowsheet Scooby Gary DO Work Phone: [facility] Start: 06-02-2024 End: 06-02-2024 ambulatory SCOOBY GARY Not Available Start: 06-02-2024 End: 06-02-2024 flow sheet Scooby Gary DO Work Phone: [facility] Comment on above: Second trimester pre gnancy; 23 weeks gestation of ; with normal glucose tolerance test (GTT); Diabetes mellitus screening; Gestational diabetes mellitus (GDM), antepartum, gestational diabetes method of control unspecified; Elevated glucose tolerance test Start: 05-02-2024 Non-patient / Non-visit Jen Granados MD Work Phone: [facility] Work Phone: Start: 05-02-2024 End: 05-02-2024 ambulatory EMELY ELSA Not Available Start: 05-02-2024 End: 05-02-2024 Patient [...] / Non-visit Jen Granados MD Work Phone: [facility] Work Phone: Start: 04-04-2024 [...] Start: 04-04-2024 End: 04-04-2024 Bamboo flowsheet Scooby Gayr DO Work Phone: [facility] Start: 04-04-2024 End: 04-04-2024 ambulatory [facility] Start: 04-01-2024 End: [...] CI PT Start: 02-08-2024 End: 02-08-2024 ambulatory [facility] Start: 02-08-2024 ambulatory [facility] Start: 12-01-2023 End: 12-01-2023 ambulatory Scooby Gary Work Phone: [facility] Work Phone: Start: 12-01-2023 End: 12-01-2023 Patient encounter procedure Scooby Gary Work Phone: [facility] Work Phone: Start: 11-30-2023 Non-patient / Non-visit Scooby Gary Work Phone: [facility] Work Phone: Start: 11-23-2023 Non-patient / Non-visit Scooby Gary Work Phone: [facility] Work Phone: Start: 11-17-2023 Non-patient / Non-visit Scooby Gary Work Phone: [facility] Work Phone: Start: 11-09-2023 Non-patient / Non-visit Scooby Gary Work Phone: [facility] Work Phone: Start: 11-09-2023 End: 11-09-2023 ambulatory EMELY HUNTER Not Available Start: 10-23-2023 End: 10-23-2023 ambulatory Scooby Gary [facility] Work Phone: Start: 10-23-2023 End: 10-23-2023 Departed Referred Scooby Gary Work Phone: [facility] Start: 10-23-2023 Non-patient / Non-visit Scooby Gary Work Phone: [facility] Work Phone: Start: 10-12-2023 Non-patient / Non-visit Scooby Gary Work Phone: [facility] Work Phone: Start: 10-07-2023 Non-patient / Non-visit Scooby Gary Work Phone: [facility] Work Phone: Start: 10-05-2023 Non-patient / Non-visit Scooby Gary Work Phone: [facility] Work Phone: Start: 03-03-2022 End: 03-03-[address] SCOOBY VEGA Facility:[facility] Start: 04-28-2021 Encounter for genera l adult medical examination without abnormal findings DR DALTON LOGAN [facility] Start: 04-22-2021 End: 04-23-[address] DALTON LOGAN Facility:[facility] Start: 04-22-2021 End: 04-23-2021 Encounter for general adult medical examination without abnormal findings DR DALTON LOGAN Facility:[facility] Procedures Date Procedure Procedure Detail Performing Clinician Start: 09-23-2024 US OB BPP W NON-STRESS Scooby Gary DO Work Phone: Start: 09-20-2024 Urnls dip stick/tabl et rgnt [...] AM EDT Routine [facility] [address] [place] [id number] Scooby Vega, DO [address] [place] [address] [facility] Start: 09-12-2024 End: 09-12-2024 Patient encounter procedure 09/12/2024 9:00 AM EDT Routine [facility] [address] [place] [id number] Scooby Vega, DO [address] [place] [address] [facility] Start: 09-05-2024 End: 09-05-2024 Patient encounter procedure 09/05/2024 1:30 PM EDT Routine [facility] [address] [place] [phone] Scooby Vega, DO [address] [place] [address] [facility] Start: 08-24-2024 End: 08-24-2025 CULTURE, GROUP B STREP WITH SUSCEPTIBLITY CULTURE, GROUP B STREP WITH SUSCEPTIBLITY Lab Routine Third trimester Expected: 08/24/2024, Expires: 08/24/2025 [facility] Work Phone: Comment on above: Expected: 08/24/2024 , Expires: 08/24/2025 Start: 08-24-2024 End: 08-24-2024 Patient encounter procedure 08/24/2024 1:20 PM EST Routine [facility] [address] [place] [phone] Scooby Vega, DO [address] [place], [place] [id number] [facility] Start: 08-18-2024 End: 08-18-2025 US for US OB follow up transabdominal approach Imaging Routine Multigravida of advanced maternal age in third trimester Expected: 08/18/2024, Expires: 08/18/2025 [facility] Work Phone: Comment on above: Expected: 08/18/2024 , Expires: 08/18/2025 Start: 08-18-2024 End: 08-18-2024 Patient encounter procedure 08/18/2024 9:20 AM EST Routine [facility] [address] [place] [phone] Scooby Vega, DO [address] [place] [address] [facility] Start: 08-01-2024 End: 08-01-2024 Patient encounter procedure 08/01/2024 1:20 PM EST Routine [facility] [address] [place] [phone] Scooby Vega, DO [address] [place] [address] [facility] Start: 07-18-2024 End: 07-18-2024 Patient encounter procedure 07/18/2024 2:30 PM EST Routine [facility] [address] [place] [phone] Scooby Vega, DO [address] [place] [address] [facility] Start: 07-18-2024 End: 07-18-2025 [...] of control unspecified Expected: 06/30/2024, Expires: 06/30/2025 [facility] Work Phone: Comment on above: Expected: 06/30/2024 , Expires: 06/30/2025 Start: 06-30-2024 End: 06-30-2024 Patient encounter procedure 06/30/2024 11:50 AM EST Routine [facility] [address] [place] [phone] Scooby Vega DO [address] [place] [address] [facility] Start: 06-25-2024 Urine culture [facility] Start: 06-25-2024 Bacteria identified in Urine by Culture Urine Culture [facility] Start: 06-02-2024 End: 06-02-2025 CBC panel [...] EST Routine [facility] [address] [place] [address] Scooby Vega, DO [address] [place] [address] [facility] Start: 05-02-2024 End: 05-02-2024 Patient encounter procedure 05/02/2024 3:30 PM EST Routine [facility] [address] [place] [phone] Emely Hunter PA [address] [place] [address] [facility] Start: 05-02-2024 End: 10-30-2024 Alpha fetoprotein, maternal Alpha fetoprotein, maternal Lab Routine Second trimester 19 weeks gestation of Expected: 05/02/2024 (Approximate), Expires: 10/30/2024 [facility] Comment on above: Expected: 05/02/2024 [...] Office Visit [facility] [address] [place] [address] Scooby Vega, DO [address] [place], [place] [id number] [facility] Start: 04-04-2024 End: 04-04-2024 [facility] [address] [place] [address] Gretchen Moreno, PT [facility] Start: 03-23-2024 End: 03-23-2024 ambulatory 03/23/2024 1:00 PM EDT Treatment [facility] [address] [facility] [address] [place] [address] Gretchen Moreno, PT [facility] Start: 03-18-2024 End: 03-18-2024 ambulatory 03/18/2024 1:30 PM EDT Treatment [facility] [address] [facility] [address] [place] [address] Gretchen Moreno, PT [facility] Start: 03-11-2024 End: 03-11-2024 ambulatory 03/11/2024 1:30 PM EDT Treatment [facility] [address] [facility] [address] [place] [address] Gretchen Moreno, PT [facility] Start: 03-07-2024 End: 03-07-2024 Patient encounter procedure 03/07/2024 10:10 AM EDT Routine [facility] [address] [place] [address] Scooby Vega DO [address] [place] [address] [facility] Start: 03-03-2024 End: 03-03-2024 ambulatory 03/03/2024 10:30 AM EDT Treatment [facility] [address] [facility] [address] [place] [address] Gretchen Moreno, PT [facility] Start: 02-26-2024 End: 02-26-2024 ambulatory 02/26/2024 1:30 PM EDT Treatment [facility] [address] [place] [address] [place] [address] Gretchen Moreno, PT Arrived [facility] Comment on above: Arrived Start: 02-25-2024 End: 02-25-2024 ambulatory 02/25/2024 10:30 AM EDT Treatment [facility] [address] [facility] [address] [place] [address] Gretchen Moreno, PT [facility] Start: 02-17-2024 End: 02-17-2024 ambulatory 02/17/2024 12:00 PM EDT Treatment [facility] [address] [facility] [address] [place] [address] Gretchen Moreno, PT [facility] Start: 02-12-2024 End: 02-11-2025 ABO/Rh ABO/Rh Lab Routine Missed menses Expected: 02/12/2024 (Approximate), Expires: 02/11/2025 [facility] Comment on above: Expected: 02/12/2024 [...] Missed menses Expected: 02/12/2024 (Approximate), Expires: 02/11/2025 [facility] Comment on above: Expected: 02/12/2024 (Approximate), Expires: 02/11/2025 Start: 02-12-2024 End: 02-12-2024 ambulatory 02/12/2024 10:30 AM EDT Initial [facility] [address] [place] [address] [facility] Start: 02-12-2024 End: 02-12-2024 Professional / ancillary services management 02/12/2024 10:00 AM EDT Ancillary Procedure [facility] [address] [place] [address] [facility] [facility] Start: 02-10-2024 End: 02-10-2024 ambulatory 02/10/2024 5:00 PM EDT Evaluation [facility] [address] [facility] [address] [place] [address] Gretchen Moreno, PT Arrived [facility] Comment on above: Arrived Bacteria identified in Urine by Culture Urine culture Microbiology Routine Missed menses Ordered: 02/12/2024 [facility] Comment on above: Ordered: 02/12/2024 CBC W Auto Different ial panel - Blood CBC and differential Lab Routine Missed menses Ordered: 02/12/2024 [facility] Comment on above: Ordered: 02/12/2024 CHLAMYDIA TRACHOMATI S (GENITO/STI) CHLAMYDIA TRACHOMATIS (GENITO/STI) Lab Routine STD exposure Ordered: 05/02/2024 [facility] Comment on above: Ordered: 05/02/2024 Cytology Cervical or vaginal smear or scraping study Pap Smear Pathology and Cytology Routine Well woman exam with routine gynecological exam Ordered: 05/02/2024 [facility] Comment on above: Ordered: 05/02/2024 Hemoglobin A1c/Hemoglobin.total in Blood Hemoglobin A1c Lab Routine Missed menses Ordered: 02/12/2024 [facility] Comment on above: Ordered: 02/12/2024 Hepatitis B virus surface Ag [Presence] in Serum or Plasma by Immunoassay Hepatitis B surface antigen Lab Routine Missed menses Ordered: 02/12/2024 [facility] Comment on above: Ordered: 02/12/2024 Hepatitis C virus Ab [Presence] in Serum or Plasma by Immunoassay Hepatitis C antibody Lab Routine Missed menses Ordered: 02/12/2024 [facility] Comment on above: Ordered: 02/12/2024 HIV-1/HIV-2 antigen/antibody combination immunoassay HIV-1 and HIV-2 antibodies Lab Routine Missed menses Ordered: 02/12/2024 [facility] Comment on above: Ordered: 02/12/2024 Human papilloma viru s DNA [Presence] in Unspecified specimen by Probe with amplification HPV DNA probe, amplified Microbiology Routine Well woman exam with routine gynecological exam Ordered: 05/02/2024 [facility] Comment on above: Ordered: 05/02/2024 Neisseria gonorrhoea e DNA [Presence] in Unspecified specimen by JUAN ANTONIO with probe detection Neisseria gonorrhea DNA probe, direct Lab Routine STD exposure Ordered: 05/02/2024 [facility] Comment on above: Ordered: 05/02/2024 Reagin Ab [Presence] in Serum by RPR RPR Lab Routine Missed menses Ordered: 02/12/2024 [facility] Comment on above: Ordered: 02/12/2024 Rubella antibody, IgG Rubella an tibody, IgG Lab Routine Missed menses Ordered: 02/12/2024 [facility] Comment on above: Ordered: 02/12/2024 SURESWAB(R) ADVANCED VAGINITIS PLUS, TMA SURESWAB(R) ADVANCED VAGINITIS PLUS, TMA Pathology and Cytology Routine Vaginal discharge Ordered: 05/02/2024 [facility] Work Phone: Comment on above: Ordered: 05/02/2024 XR Hip - left 2 Views [facility] Payers Date Payer Category Payer Private Health Insurance [employer] N [id number] 2022 Unknown NILAM Decker [place] [id number] 2022-Present [phone] [address] [place] [id number] 1987 Unknown [id number] 2.16.840.1.194712.3.579.2 .593 1987 Unknown [id number] 2.16.840.1.708250.3.579.2 .593 1987 Unknown [id number] 2.16.840.1.422861.3.579.2 .1286 1987 Unknown [id number] 2.16.840.1.502912.3.579.2 .1286 1987 Unknown [id number] 2.16.840.1.607668.3.579.2 .1286 1987 Unknown [id number] 2.16.840.1.864658.3.579.2 .9 1987 Unknown [id number] 2.16.840.1.340517.3.579.2 .1259 1987 Unknown [id number] 2.16.840.1.759253.3.579.2 .1259 1987 Unknown [id number] 2.16.840.1.851998.3.579.2 .1258 1987 Unknown [id number] 2.16.840.1.724323.3.579.2 .9 1987 Unknown [id number] 2.16.840.1.314854.3.579.2 .9 1987 Unknown [id number] 2.16.840.1.037700.3.579.2 .1258 1987 Unknown [id number] 2.16.840.1.727395.3.579.2 .1258 1987 Unknown [id number] 2.16.840.1.555131.3.579.2 .1258 1987 Unknown [id number] 2.16.840.1.659037.3.579.2 .1258 1987 Unknown [id number] 2.16.840.1.937160.3.579.2 .1258 1987 Unknown [id number] 2.16840.1.629260.3.579.2 .1258 1987 Unknown [id number] 2.16840.1.749939.3.579.2 .1258 1987 Unknown [id number] 2.840.1.356638.3.579.2 .1258 1987 Unknown [id number] 2.840.1.792316.3.579.2 .1258 1987 Unknown [id number] 2.16840.1.899887.3.579.2 .1258 1987 Unknown [id number] 2.16840.1.752602.3.579.2 .1258 1987 Unknown [id number] 2.840.1.167400.3.579.2 .1258 1987 Unknown [id number] 2.16840.1.712910.3.579.2 .1258 1987 Unknown [id number] 2.16840.1.588255.3.579.2 .1258 1987 Unknown [id number] 2.16840.1.282221.3.579.2 .1258 1987 Unknown [id number] 2.16840.1.018566.3.579.2 .1258 1959 Unknown [id number] Social History Date Type Detail Facility [facility] Work Phone: Start: 1985 Sex Assigned At Female F [facility] Start: 02-26-2023 [facility] Start: 11-09-2023 History of Social function [facility] Start: 11-09-2023 Tobacco use panel [facility] Start: 01-01-2024 [facility] Start: 1985 Sex assigned at Not on file [facility] Tobacco smoking stat [facility] Unknown if ever smoked [facility] Work Phone: Start: 06-27-2024 Sex Female (finding) [facility] Medical Equipment Procedure Code Equipment Code Equipment Origin al Text Equipment Identifier Dates 1 strip by In Vi tro route Daily Use in the morning prior to breakfast, 1 hour after each meal for a total of 4times daily. [id number] Start: 06-02-2024 End: 07-02-2024 1 each by In Vit ro route Daily Use to check FSBS four times daily [id number] Start: 06-02-2024 End: 07-02-2024 Goals Date Patient Goal Desired Activity /State Personal health goal Clinical Notes 02-10-2024 to 09-20-2024 Belle Villanueva LPN - 09/20/2024 2:20 PM Marisa Villanueva LPN - 08/24/2024 1:20 PM Abel Loera LPN - 08/18/2024 9:20 AM Abel Loera LPN - 08/01/2024 1:20 PM EST Note Date [...] nursing note reviewed. Exam conducted with a scarifier operator present. Vitals: Estimated body mass index [...] induced on 09/27/[address] [facility] at 2300 on 09/26/24 pit at 0100 go up 2 every hour Orders Placed This Encounter Procedures POCT urinalysis dipstick manually resulted Follow Up: Patient is to return to office in 1 week for routine OB appointment. Documented by Belle Villanueva LPN on behalf of: Scooby Vega DO documented in this encounter [facility] 08-24-2024 History of Present illness Narrative [...] nursing note reviewed. Exam conducted with a scarifier operator present. Vitals: Estimated body mass index [...] Scooby Vega DO documented in this encounter [facility] 08-18-2024 History of Present illness [...] nursing note reviewed. Exam conducted with a scarifier operator present. Vitals: Estimated body mass index [...] Scooby Vega DO documented in this encounter [facility] 08-01-2024 History of Present illness [...] nursing note reviewed. Exam conducted with a scarifier operator present. Vitals: Estimated body mass index [...] Scooby Vega DO documented in this encounter [facility] 07-18-2024 History of Present illness [...] 81 mg, Daily Blood Glucose Monitoring Suppl (Bioparaiso Glucometer) w/Device kit 1 kit, Does not [...] nursing note reviewed. Exam conducted with a scarifier operator present. Vitals: Estimated body mass index [...] of:Emely Hunter PA-C documented in this encounter [facility] 06-30-2024 History of Present illness [...] Scooby Vega DO documented in this encounter [facility] 06-02-2024 History of Present illness [...] nursing note reviewed. Exam conducted with a scarifier operator present. Vitals: Estimated body mass index [...] Scooby Vega DO documented in this encounter [facility] 05-02-2024 History of Present illness [...] nursing note reviewed. Exam conducted with a scarifier operator present. Vitals: Estimated body mass index [...] difficulty and patient was given [facility] order to have obtained. Orders [...] of: JORDYN Fonseca documented in this encounter [facility] 04-04-2024 History of Present illness [...] nursing note reviewed. Exam conducted with a scarifier operator present. Vitals: Estimated body mass index is 21.27 kg/m as calculated from the following: Height as of 23: 5' 7 . Weight as of this [...] Aspirin. Discussed again in regards to seeing [facility] & referral will be completed. Patient to have NST/BPP starting at 32 weeks gestation. Patient will have Anatomy Scan done at [facility]. Patient is Rh Negative and [...] Scooby Vega DO documented in this encounter [facility] 04-01-2024 History of Present illness [...] and it pops a lot randomly. Precautions: [place] Subjective: Pt states overall, ROM has improved. [...] to be instructed in home exercise program. Independent Freight Agent Goals: To be met in 10 weeks [...] sign below. Date: documented in this encounter [facility] 03-23-2024 History of Present illness [...] and it pops a lot randomly. Precautions: [place] Subjective: Pt states range of motion of [...] to be instructed in home exercise program. [facility]pc Goals: To be met in 10 weeks [...] sign below. Date: documented in this encounter [facility] 03-18-2024 History of Present illness [...] and it pops a lot randomly. Precautions: [place] Subjective: Pt states she feels like her [...] to be instructed in home exercise program. Independent Freight Agent Goals: To be met in 10 weeks [...] sign below. Date: documented in this encounter [facility] 03-11-2024 History of Present illness [...] and it pops a lot randomly. Precautions: [place] Subjective: Pt states overall she believes hip [...] to be instructed in home exercise program. [facility]pc Goals: To be met in 10 weeks [...] sign below. Date: documented in this encounter [facility] 03-07-2024 History of Present illness [...] nursing note reviewed. Exam conducted with a scarifier operator present. Vitals: Estimated body mass index [...] or undercooked meat, [facility] Patient has been consulted regarding any further do's and don'ts of . Patient voiced understanding and all questions and concerns were answered. Follow Up: Patient is to return in 4 weeks for routine OB appointment. Documented by Kalie Loera LPN on behalf of: Scooby Vega DO documented in this encounter [facility] 03-03-2024 History of Present illness [...] and it pops a lot randomly. Precautions: [place] Subjective: Pt states she has been doing [...] to be instructed in home exercise program. Independent Freight Agent Goals: To be met in 10 weeks [...] sign below. Date: documented in this encounter [facility] 02-26-2024 History of Present illness [...] and it pops a lot randomly. Precautions: [place] Subjective: Pt states she was able to [...] to be instructed in home exercise program. Independent Freight Agent Goals: To be met in 10 weeks [...] sign below. Date: documented in this encounter [facility] 02-17-2024 History of Present illness [...] and it pops a lot randomly. Precautions: [place] Subjective: Pt states she has not done [...] to be instructed in home exercise program. Independent Freight Agent Goals: To be met in 10 weeks [...] sign below. Date: documented in this encounter [facility] 02-12-2024 History of Present illness [...] or undercooked meat, [facility]. Patient has also been advised [...] Estee Cobb LPN documented in this encounter [facility] 02-10-2024 History of Present illness [...] and it pops a lot randomly. Precautions: [place] Subjective: left hip ant and lateral Pain: [...] to be instructed in home exercise program. [facility]pc Goals: To be met in 10 weeks [...] Evaluation note No assessment inform ation available [facility] Work Phone: Evaluation note Diagnosis Onset Date Left hip pain acute [facility] Work Phone: Evaluation note* Diagnosis Pain of [...] and content) DATE CREATED AUTHOR 03/22/2022 [facility] [place] [facility] DATE CREATED AUTHOR AUTHOR'S ORGANIZ ATION 04/05/2024 [facility] DATE CREATED AUTHOR AUTHOR'S ORGANIZ ATION 07/03/2024 [facility] DATE CREATED AUTHOR AUTHOR'S ORGANIZ ATION 09/21/2024 [facility] EPIC Care [...] December 01, 2023 End: December 01, 2023 Infectious Waste Technician Relationship Specialty Start Date End Date Jen Granados MD [address] [place] [address] PCP - General Family Medicine 03/10/23 Infectious Waste Technician Relationship Specialty Start Date End Date Jen Granados MD [address] [place] [address] PCP - General Family Medicine 03/10/23 Infectious Waste Technician Relationship Specialty Start Date End Date Jen Granados MD [address] [facility] [place] [address] PCP - General Family Medicine 03/10/23 Infectious Waste Technician Relationship Specialty Start Date End Date Jen Granados MD [address] [place] [address] PCP - General Family Medicine 03/10/23 Infectious Waste Technician Relationship Specialty Start Date End Date Jen Granados MD [address] [place] [address] PCP - General Family Medicine 03/10/23 Infectious Waste Technician Relationship Specialty Start Date End Date Jen Granados MD [address] [place] [address] PCP - General Family Medicine 03/10/23 Infectious Waste Technician Relationship Specialty Start Date End Date Jen Granados MD [address] [place] [address] PCP - General Family Medicine 03/10/23 Infectious Waste Technician Relationship Specialty Start Date End Date Jen Granados MD [address] [place] [address] PCP - General Family Medicine 03/10/23 Infectious Waste Technician Relationship Specialty Start Date End Date Jen Granados MD [address] [place] [address] PCP - General Family Medicine 03/10/23 Infectious Waste Technician Relationship Specialty Start Date End Date Jen Granados MD [address] [facility] [place] [address] PCP - General Family Medicine 03/10/23 Infectious Waste Technician Relationship Specialty Start Date End Date Jen Granados MD [address] [facility] [place] [address] PCP - General Family Medicine 03/10/23 Infectious Waste Technician Relationship Specialty Start Date End Date Jen Granados MD [address] [facility] [place] [address] PCP - General Family Medicine 03/10/23 Infectious Waste Technician Relationship Specialty Start Date End Date Jen Granados MD [address] [place] [address] PCP - General Family Medicine 03/10/23 Infectious Waste Technician Relationship Specialty Start Date End Date Jen Granados MD [address] [place] [facility] [place] [address] PCP - General Family Medicine 03/10/23 Infectious Waste Technician Relationship Specialty Start Date End Date Jen Granados MD [address] [place] [facility] [address] PCP - General Family Medicine 03/10/23 [...] June 25, 2024 End: June 25, 2024 Infectious Waste Technician Relationship Specialty Start Date End Date Jen Granados MD [address] [place] [facility] [place] [address] PCP - General Family Medicine 03/10/23 Infectious Waste Technician Relationship Specialty Start Date End Date Jen Granados MD [address] [place] [facility] [address] PCP - General Family Medicine 03/10/23 Infectious Waste Technician Relationship Specialty Start Date End Date Jen Granados MD [address] [place] [facility] [place] [address] PCP - General Family Medicine 03/10/23 Infectious Waste Technician Relationship Specialty Start Date End Date Jen Granados MD [address] [place] [facility] [address] PCP - General Family Medicine 03/10/23 Infectious Waste Technician Relationship Specialty Start Date End Date Jen Granados MD [address] [place] [facility] [address] PCP - General Family Medicine 03/10/23 Infectious Waste Technician Relationship Specialty Start Date End Date Jen Granados MD [address] [place] [facility] [address] PCP - General Family Medicine 03/10/23 Infectious Waste Technician Relationship Specialty Start Date End Date Jen Granados MD [address] [place] [facility] [address] PCP - General Family Medicine 03/10/23 Infectious Waste Technician Relationship Specialty Start Date End Date Jen Granados MD [address] [place] [facility] [address] PCP - General Family Medicine 03/10/23 Goals [...] of left lower limb, excluding foot Procedures [place] PHYSICAL THERAPY EVALUATION LOW COMPLEX 20 MINS Ashley Rock MD [address] [facility] [place] [address] Gretchen Moreno PT Referral ID Status Reason Start Date Expiration Date V isits Requested Visits Authorized [id number] Authorized 02/10/2024 08/08/2024 99 99 Reason Comments [...] BE BASED ON THE PRIMARY CLINICAL RECORDS. [facility] [employer] provides no warranty or guarantee of the accuracy or completeness of information in this document.
[2024-09-27] VITALS (63 sets, daily range): BP systolic 103–151; BP diastolic 51–83; PULSE 61–133; TEMP 36.3–37
[2024-09-27 00:42] LABS: Hematocrit 34.1 % (36.0-48.0); Hemoglobin 11.8 g/dL (12.0-16.0); Mean Corpuscular HGB Conc 34.6 g/dL (29.9-35.2); Mean Corpuscular Hemoglobin 33.4 pg (26.7-34.0); Mean Corpuscular Volume 96.6 fL (81.0-99.0); Platelet Count 222 10^3/uL (150-450); Red Blood Count 3.53 10^6/uL (4.20-5.40); Red Cell Distribution Width 12.9 % (11.0-15.0); White Blood Count 8.7 10^3/uL (4.0-11.0)
[2024-09-27] MEDS: 0.9 % SODIUM CHLORIDE 1,000 ML 125 ML IV ×2 (00:50→08:27)
[2024-09-27 00:58] LABS: Amphetamine Screen Urine NEGATIVE (NEGATIVE); Barbiturates Screen Urine NEGATIVE (NEGATIVE); Benzodiazepines Screen Urine NEGATIVE (NEGATIVE); Buprenorphine Screen Urine NEGATIVE (NEGATIVE); Cannabinoid Screen Urine NEGATIVE (NEGATIVE); Cocaine Screen Urine NEGATIVE (NEGATIVE); Methadone Screen Urine NEGATIVE (NEGATIVE); Methamphetamines Screen Urine NEGATIVE (NEGATIVE); Opiate Screen Urine NEGATIVE (NEGATIVE); Oxycodone Screen Urine NEGATIVE (NEGATIVE); Phencyclidine Screen Urine NEGATIVE (NEGATIVE); Tricyclic Antidepressant Urine NEGATIVE (NEGATIVE)
[2024-09-27] MEDS: OXYTOCIN/0.9 % SODIUM CHLORIDE 10 UNITS/500 ML PLAST..BAG 6 UNIT IV (01:00)
[2024-09-27] MEDS: NALBUPHINE HCL 10 MG/ML AMPULE IV (13:11)
[2024-09-27] MEDS: OXYTOCIN/0.9 % SODIUM CHLORIDE 10 UNITS/500 ML PLAST..BAG 54 UNIT IV (15:22)
[2024-09-27] MEDS: 0.9 % SODIUM CHLORIDE 1,000 ML 1000 ML IV (15:22)
[2024-09-27] MEDS: ROPIVACAINE HCL/PF 400 MG/200 ML PREMIX 10 MG EPIDURAL (15:22)
[2024-09-27] MEDS: OXYTOCIN/0.9 % SODIUM CHLORIDE 20 UNITS/1,000 ML PLAST..BAG 125 UNIT IV (21:23)
[2024-09-27] MEDS: LIDOCAINE HCL 1% 200 MG/20 ML MDV INJ (21:26)
[2024-09-27] MEDS: CARBOPROST TROMETHAMINE 250 MCG/ML 1 ML VIAL IM (21:34)
--- NOTE | 2024-09-27 21:47 | PM.OBPRCVD ---
Procedure Intrapartal events: None Induction method: per pitocin protocol Delivery augmentation: rupture of membranes and pitocin Delivery monitor: external FHT and external uterine Route of delivery: Episiotomy Description: none L&D Laceration Description: periurethral - 1st degree and perineal - 2nd degree Delivery repair: Vicryl Estimated blood loss (mL): 450 Anesthesia type: None Disposition: floor Delivery date: 09/27/24 Gender: male presentation: vertex Placental delivery description: Spontaneous cord description: 3 Vessels
[2024-09-27] MEDS: IBUPROFEN 600 MG TABLET PO (22:44)
[2024-09-28 00:11] VITALS: BP 106/60; PULSE 98
[2024-09-28] MEDS: ACETAMINOPHEN 325 MG TABLET 650 MG PO ×3 (01:53→21:23)
[2024-09-28] MEDS: BENZOCAINE/MENTHOL 85 GRAM SPRAY BOTTLE 1 APPLIC TOPICAL (04:06)
[2024-09-28] MEDS: GLYCERIN/WITCH HAZEL PADS 1 PAD TOPICAL (04:08)
[2024-09-28 06:49] LABS: Basophils Percent Auto 0.2 % (0.2-2.0); Eosinophils Percent Auto 0.1 % (0.9-7.0); Hematocrit 28.6 % (36.0-48.0); Hemoglobin 9.7 g/dL (12.0-16.0); Immature Granulocytes Abs Auto 0.07 10^3/uL (0.00-0.03); Immature Granulocytes Pct Auto 0.4 % (0.0-0.5); Lymphocytes Absolute Auto 1.3 10^3/uL (1.2-3.8); Lymphocytes Percent Auto 7.9 % (20.5-60.0); Mean Corpuscular HGB Conc 33.9 g/dL (29.9-35.2); Mean Corpuscular Hemoglobin 33.3 pg (26.7-34.0); Mean Corpuscular Volume 98.3 fL (81.0-99.0); Mean Platelet Volume 9.8 fL (9.5-13.5); Monocytes Absolute Auto 0.6 10^3/uL (0.3-0.8); Monocytes Percent Auto 3.6 % (1.7-12.0); Neutrophils Absolute Auto 14.8 10^3/uL (1.4-6.5); Neutrophils Percent Auto 87.8 % (43.0-75.0); Platelet Count 177 10^3/uL (150-450); Red Blood Count 2.91 10^6/uL (4.20-5.40); Red Cell Distribution Width 13.2 % (11.0-15.0); White Blood Count 16.9 10^3/uL (4.0-11.0)
[2024-09-28 07:55] VITALS: BP 86/54; PULSE 83; TEMP 36.6
[2024-09-28] MEDS: IBUPROFEN 600 MG TABLET PO ×3 (08:01→23:43)
--- NOTE | 2024-09-28 09:40 | PM.OBPN ---
OB - PN: Subj Subjective Patient comments: no complaints and pain well controlled [place] status: doing well Exam Constitutional Vital Signs, click to edit/add: Last Vital Signs Temp 97.9 F 09/28/24 07:55 Pulse 83 09/28/24 07:55 Resp 15 09/27/24 01:09 BP 86/54 L 09/28/24 07:55 O2 Del Method Room Air 09/28/24 07:55 Documenting provider has reviewed patient's vital signs: yes Common normals: no apparent distress Respiratory Common normals: normal respiratory effort and clear to auscultation bilaterally Cardio Common normals: regular rate and regular rhythm GI Common normals: Normal to inspection, nondistended, normoactive bowel sounds present Extremity Common normals: no clubbing, cyanosis or edema and no calf tenderness Results Labs Labs: Short CBC 09/28/24 Range/Units 06:34 WBC 16.9 H (4.0-11.0) 10^3/uL Hgb 9.7 L (12.0-16.0) g/dL Hct 28.6 L (36.0-48.0) % Plt Count 177 (150-450) 10^3/uL OB - PN: A/P Plan - Vaginal Delivery day: 1 Plan: routine care Time Spent with Patient Time: Total time spent is greater than 50% in coordination of care (as documented) at patient's floor/unit and/or counseling patient: Total time spent with greater than 50% in coordination of care (as documented) at patient's floor/unit and/or counseling patient: less than 15 minutes
[2024-09-28] MEDS: DOCUSATE SODIUM 100 MG CAPSULE PO ×2 (12:16→21:22)
[2024-09-28 16:23] VITALS: BP 115/66; PULSE 88
[2024-09-28 23:11] VITALS: BP 139/75; PULSE 90; TEMP 36.9
[2024-09-29 08:30] VITALS: BP 111/73; TEMP 36.8
[2024-09-29 08:31] VITALS: BP 111/73; PULSE 76
[2024-09-29] MEDS: DOCUSATE SODIUM 100 MG CAPSULE PO (08:35)
[2024-09-29] MEDS: IBUPROFEN 600 MG TABLET PO ×2 (08:35→15:07)
[2024-09-29] MEDS: ACETAMINOPHEN 325 MG TABLET 650 MG PO (11:45)
--- NOTE | 2024-09-29 12:06 | P.OBPN_ITS ---
OB - PN: Subj Subjective Interval history: PPD #2 Vaginal Dellivery Patient comments: other (Mild tailbone pain) status: doing well [place] feeding status: exclusively Exam Constitutional Vital Signs, click to edit/add: Last Vital Signs Temp 98.2 F 09/29/24 08:30 Pulse 76 09/29/24 08:31 Resp 16 09/29/24 08:30 BP 111/73 09/29/24 08:31 O2 Del Method Room Air 09/28/24 23:25 Common normals: no apparent distress and oriented x3 Respiratory Common normals: normal respiratory effort GI Common normals: Normal to inspection, nondistended, normoactive bowel sounds present Palpation: soft Bimanual exam- vagina & uterus: uterus non-tender Extremity Common normals: full ROM and no clubbing, cyanosis or edema General: normal exam except as noted Neuro Common normals: oriented x3 Psych Common normals: mental status grossly normal and cooperative Attitude: engaged OB - PN: A/P Assessment and Plan (1) Normal labor and delivery: Plan - Vaginal Delivery day: 2 Plan: discharge home Time Spent with Patient Time: Total time spent is greater than 50% in coordination of care (as documented) at patient's floor/unit and/or counseling patient: Total time spent with greater than 50% in coordination of care (as documented) at patient's floor/unit and/or counseling patient: 25 - 35 minutes
[2024-09-29 16:35] VITALS: BP 132/75; PULSE 81; TEMP 37
[2024-09-29 16:39] VITALS: BP 132/75; PULSE 81
== END 2024-09-29 16:35 | disposition home or self-care (01) | DRG 807 ==
PROVIDERS: Admitting Provider Obstetrics & Gynecology; PCP Family Medicine; Visit Provider Obstetrics & Gynecology
DX: O48.0 Post-term pregnancy (principal); Z37.0 Single live birth; O70.1 Second degree perineal laceration during delivery; Z3A.40 40 weeks gestation of pregnancy; Z23 Encounter for immunization; Z88.1 Allergy status to other antibiotic agents; Z79.82 Long term (current) use of aspirin
CPT/HCPCS: 36415; 51702; 59050; 59410; 80307; 85025; 85027; 86850; 86900; 86901; J2300; J2795

== ENCOUNTER 2024-11-16 13:50 | Outpatient (RCR) | payer OTHER, SELFPAY | END 2024-12-08 11:37 | disposition home or self-care (01) | LOC: PT 13:50 | PROVIDERS: PCP Family Medicine; Visit Provider Obstetrics & Gynecology | DX: S32.89XD Fracture of other parts of pelvis, subsequent encounter for fracture with routine healing (principal) | CPT/HCPCS: 97110; 97112; 97161 ==